=== PATIENT | male | born 1980 | race Caucasian/White ===

== ENCOUNTER 2021-08-28 22:11 | Inpatient (IN) | payer MEDICARE, MEDICAID, SELFPAY ==
--- NOTE | ~2021-08-28 | XR_ITS ---
EXAMINATION: XR CHEST CLINICAL INFORMATION: Hypoxia. COMPARISON: None. TECHNIQUE: AP view of the chest was obtained. FINDINGS: Enlarged cardiomediastinal silhouette with prominence of the right greater than left hilar regions. Low lung volumes with multifocal airspace opacities. No large pleural effusion. No definite pneumothorax. No acute osseous abnormalities. The visualized upper abdomen is within normal limits. XR/XR chest 1V IMPRESSION: Multifocal airspace opacities concerning for an atypical infection. Prominent cardiomediastinal silhouette, more notable along the right hilum possibly related with cardiomegaly or reactive lymphadenopathy, although nonspecific and suboptimally assessed due to patient's rotation.
--- NOTE | ~2021-08-28 | US_ITS ---
EXAMINATION: US VENOUS ULTRASOUND WITH DOPPLER LOWER EXTREMITY, BILATERAL CLINICAL INFORMATION: Lower extremity edema/swelling. Evaluate for DVT. COMPARISON: None TECHNIQUE: Ultrasound of the deep veins is performed from the hip to the calf with compression sonography and color and pulse Doppler assessment. Spectral analysis with color-flow imaging is performed. FINDINGS: Exam was technically difficult due to body habitus. RIGHT: There is normal venous compression and respiratory variation and augmented flow. The visualized common femoral vein, superficial femoral vein, profunda femoral vein, popliteal vein, and the trifurcation region shows no evidence of deep venous thrombosis. There are no veins were not seen. The distal portion of the posterior tibial veins near the ankle appear patent. Mild subcutaneous edema. LEFT: There is normal venous compression and respiratory variation and augmented flow. The visualized common femoral vein, superficial femoral vein, profunda femoral vein, popliteal vein, and the trifurcation region shows no evidence of deep venous thrombosis. The visualized portion of the proximal posterior tibial veins appear patent. Mild subcutaneous edema. US/US venous duplex LE BI IMPRESSION: 1. Technically difficult exam. The calf veins are suboptimally evaluated on this study. The visualized portions of the posterior tibial veins appear patent bilaterally. The peroneal veins were not visualized. 2. No evidence of DVT in the common femoral, superficial femoral, profunda femoral, or popliteal veins.
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
[2021-08-29] MEDS: Omeprazole 20 MG CAPSULE.DR PO (06:47)
[2021-08-29] MEDS: Bethanechol Chloride 25 MG TABLET 12.5 MG PO ×3 (09:34→21:35)
[2021-08-29] MEDS: TiZANidine HCL 4 MG TABLET PO ×2 (09:35→19:28)
[2021-08-29] MEDS: cloNIDine HCL 0.1 MG TABLET 0.3 MG PO ×2 (09:36→22:26)
[2021-08-29] MEDS: Furosemide 40 MG TABLET PO (09:36)
[2021-08-29] MEDS: Divalproex Sodium 500 MG TABLET.DR PO (09:37)
[2021-08-29] MEDS: Loratadine 10 MG TABLET PO (09:37)
[2021-08-29] MEDS: Docusate Sodium 100 MG CAPSULE PO ×2 (09:38→21:36)
[2021-08-29] MEDS: Tamsulosin HCL 0.4 MG CAPSULE PO (09:38)
[2021-08-29] MEDS: Baclofen 20 MG TABLET PO ×2 (09:38→19:28)
[2021-08-29] MEDS: busPIRone HCl 10 MG TABLET 30 MG PO ×2 (09:38→21:38)
[2021-08-29] MEDS: Fluticasone Propionate Nasal 16 GM SPRAY 2 SPRAY NOSTRIL-B (09:40)
[2021-08-29] MEDS: Ipratropium Bromide 1 PUFF/17 MCG INHALER INHALE ×2 (09:40→13:00)
[2021-08-29] MEDS: Fluticasone/Vilanterol 100/25 BLST.W.DEV 1 PUFF INHALE (09:40)
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
--- NOTE | 2021-08-29 10:40 | PC.NURSE ---
Addendum entered by Xavier Whitlock RN 08/29/21 12:34: He reports he has not been smoking recently. Original Note: Pt declined nicotine replacement therapy while in the hospital
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
--- NOTE | 2021-08-29 13:19 | HO.WOUNDCONS ---
History of Present Illness Data of Consult Service Date: 08/29/21 Requesting physician: Papito العلي Primary Care Provider: Bal Valera MD [facility] Reason for consult: leg ulcers [id number]: Patient is admitted with psychosis and what sound like threatening behavior in the setting of bipolar 1. He was appropriately seen by medicine for non healting wounds on the legs and given empiric antibiotics. Dressing selection is deferred to wound care. [facility] Medical History (Updated 08/29/21 @ 13:05 by Tino Khan MD) Bipolar 1 disorder Chronic venous stasis Social History Advance Directives: No Advance Directives Information Provided: No Sexual orientation: Did not discuss. Meds Allergies Allergy/AdvReac Type Severity Reaction Status Date / Time No Known Allergies Allergy Verified 08/28/21 22:18 Active Medications: Current Medications Acetaminophen (Acetaminophen 325 Mg Tablet) 650 mg PO Q6H PRN PRN Reason: Headache/Pain Mild Scale (1-3) Al Hydroxide/Mg Hydroxide (Magnesium Hydrox/Alum Hydrox 30 Ml Oral.Susp) 30 ml PO Q6H PRN PRN Reason: Heartburn/Nausea Albuterol Sulfate (Albuterol Sulfate 90 Mcg 8 Gm Inhaler) 1 puff INHALE RQ4H PRN PRN Reason: asthma Amitriptyline HCl (Amitriptyline Hcl 50 Mg Tablet) 150 mg PO BEDTIME MARK Aripiprazole (Aripiprazole 30 Mg Tablet) 30 mg PO BEDTIME [facility] Ascorbic Acid (Ascorbic Acid 250 Mg Tablet) 250 mg PO BID@0800,1700 [facility] Baclofen (Baclofen 20 Mg Tablet) 20 mg PO BID MARK Last Admin: 08/29/21 09:38 Dose: 20 mg Bethanechol Chloride (Bethanechol Chloride 25 Mg Tablet) 12.5 mg PO TID MARK Last Admin: 08/29/21 09:34 Dose: 12.5 mg Buspirone HCl (Buspirone Hcl 10 Mg Tablet) 30 mg PO BID [facility] Last Admin: 08/29/21 09:38 Dose: 30 mg Calcium Carbonate (Calcium Carbonate 500 Mg Tablet) 500 mg PO BID [facility] Last Admin: 08/29/21 09:38 Dose: 500 mg Clonidine HCl (Clonidine Hcl 0.1 Mg Tablet) 0.3 mg PO BID [facility]; Protocol Last Admin: 08/29/21 09:36 Dose: 0.3 mg Divalproex Sodium (Divalproex Sodium Er 500 Mg Tab.Er.24h) 2,500 mg PO BEDTIME [facility] Docusate Sodium (Docusate Sodium 100 Mg Capsule) 100 mg PO BID [facility] Last Admin: 08/29/21 09:38 Dose: 100 mg Doxycycline Hyclate (Doxycycline Hyclate 100 Mg Tablet) 100 mg PO Q12H [facility] Last Admin: 08/29/21 09:35 Dose: 100 mg Ferrous Sulfate (Ferrous Sulfate 324 Mg Tablet.) 324 mg PO BIDWM [facility] Fluticasone Propionate (Fluticasone Propionate Nasal 16 Gm [place]) 2 spray NOSTRIL-B DAILY [facility] Last Admin: 08/29/21 09:40 Dose: 2 spray Fluticasone/Vilanterol (Fluticasone/Vilanterol 100/25 Blst.W.Dev) 1 puff INHALE RDAILY [facility] Last Admin: 08/29/21 09:40 Dose: 1 puff Furosemide (Furosemide 40 Mg Tablet) 40 mg PO DAILY [facility]; Protocol Last Admin: 08/29/21 09:36 Dose: 40 mg Hydroxyzine HCl (Hydroxyzine Hcl 25 Mg Tablet) 25 mg PO Q6H PRN PRN Reason: Anxiety Ipratropium Fortuna (Ipratropium Fortuna 1 Puff/17 Mcg Inhaler) 1 puff INHALE RQID [facility] Last Admin: 08/29/21 13:00 Dose: 1 puff Loratadine (Loratadine 10 Mg Tablet) 10 mg PO DAILY [facility] Last Admin: 08/29/21 09:37 Dose: 10 mg Magnesium Hydroxide (Milk Of Magnesia 30 Ml Oral.Susp) 30 ml PO DAILY PRN PRN Reason: Constipation Methadone HCl (Methadone Hcl 20 Mg/2 Ml Oral.Conc) 25 mg PO DAILY [facility] Metoclopramide HCl (Metoclopramide Hcl 10 Mg Tablet) 10 mg PO TIDAC [facility] Montelukast Sodium (Montelukast Sodium 10 Mg Tablet) 10 mg PO BEDTIME [facility] Omeprazole (Omeprazole 20 Mg Capsule.) 20 mg PO DAILY@0630 [facility] Last Admin: 08/29/21 06:47 Dose: 20 mg Pregabalin (Pregabalin 200 Mg Capsule) 200 mg PO BID [facility] Last Admin: 08/29/21 09:52 Dose: Not Given Promethazine HCl (Promethazine Hcl 25 Mg Tablet) 25 mg PO Q6H PRN PRN Reason: Nausea Tamsulosin HCl (Tamsulosin Hcl 0.4 Mg Capsule) 0.4 mg PO DAILY [facility] Last Admin: 08/29/21 09:38 Dose: 0.4 mg Tizanidine HCl (Tizanidine Hcl 4 Mg Tablet) 4 mg PO BID [facility] Last Admin: 08/29/21 09:35 Dose: 4 mg Trazodone HCl (Trazodone Hcl 50 Mg Tablet) 50 mg PO BEDTIME PRN PRN Reason: Insomnia Home Medications Medication Instructions Recorded Confirmed Last Taken Type acetaminophen 325 mg tablet 650 mg PO Q8-10H PRN Pain 08/29/21 08/29/21 Unknown History (Tylenol) aripiprazole 30 mg tablet (Abilify) 30 mg PO BEDTIME 08/29/21 08/29/21 Unknown History bethanechol chloride 25 mg tablet 25 mg PO TID 08/29/21 08/29/21 Unknown History buspirone 30 mg tablet 30 mg PO BID 08/29/21 08/29/21 Unknown History clonidine HCl 0.3 mg tablet 0.3 mg PO TID 08/29/21 08/29/21 Unknown History diazepam 10 mg tablet (Valium) 10 mg PO TID PRN Anxiety 08/29/21 08/29/21 Unknown History divalproex 500 mg tablet,extended 2,500 mg PO BEDTIME 08/29/21 08/29/21 Unknown History release 24 hr (Depakote ER) furosemide 40 mg tablet (Lasix) 40 mg PO BID 08/29/21 08/29/21 Unknown History hydroxyzine HCl 50 mg tablet 50 mg Q8-10H PRN Anxiety 08/29/21 08/29/21 Unknown History ibuprofen 800 mg tablet 1 tab PO TID PRN Pain 08/29/21 08/29/21 Unknown History metoclopramide HCl 10 mg tablet 10 mg PO TID 08/29/21 08/29/21 Unknown History (Reglan) montelukast 10 mg tablet 10 mg PO DAILY 08/29/21 08/29/21 Unknown History (Singulair) ondansetron 4 mg disintegrating 4 mg PO BID PRN Nausea 08/29/21 08/29/21 Unknown History tablet pantoprazole 40 mg tablet,delayed 40 mg PO DAILY 08/29/21 08/29/21 Unknown History release (Protonix) pregabalin 200 mg capsule (Lyrica) 200 mg PO BID 08/29/21 08/29/21 Unknown History promethazine 25 mg tablet 25 mg PO Q6H PRN Nausea 08/29/21 08/29/21 Unknown History Physical Exam Vital Signs and Narrative: Photographs reviewed on intake and the patient has signs of venous insufficiency. There is no redness, streaking or warmth that can be identified. Agree with empiric use of antibiotics. Unclear if patient will cooperate with dressings. Ulcerative nature of leg wounds coupled with skin staining suggest . See plan. Assessment and Plan (1) Chronic venous stasis: Status: Acute Plan For open areas of ulceration on the leg, cut dura fiber (calcium alginate with silver) to fit open area. Okay to use zinc oxide paste around the outside of the wound to get alginate to stick. Roller gauze is most appropriate. If it is safe for the patient to use compression, a Tubigrip for support is a good place to start to hold the dressings in place. An Avi wrap could also be considered as long as it does not pose a threat to the patient's safety. With this treatment strategy, improvement is anticipated. Please re-consult if this is not the case. Ensure the patient complete antibiotics. Outpatient debridement can be considered if improvement is lacking. Will call floor nurse to discuss.
[2021-08-29] MEDS: diazePAM 5 MG TABLET 10 MG PO ×2 (13:40→19:37)
[2021-08-29] MEDS: Pregabalin 200 MG CAPSULE PO ×2 (13:40→19:28)
[2021-08-29] MEDS: methADONE HCl 20 MG/2 ML ORAL.CONC 25 MG PO (14:08)
[2021-08-29] MEDS: hydrOXYzine HCL 50 MG TABLET PO (14:37)
[2021-08-29] MEDS: Promethazine HCL 25 MG TABLET PO ×2 (15:45→19:37)
[2021-08-29] MEDS: Metoclopramide HCl 10 MG TABLET PO (16:14)
[2021-08-29] MEDS: Acetaminophen 325 MG TABLET 975 MG PO ×2 (17:11→21:38)
[2021-08-29] MEDS: Ibuprofen 600 MG TABLET PO ×2 (17:11→21:37)
[2021-08-29] MEDS: Ferrous Sulfate 324 MG TABLET.DR PO (17:15)
[2021-08-29] MEDS: Ascorbic Acid 250 MG TABLET PO (17:16)
[2021-08-29 18:13] LABS: Amphetamine Screen Urine Not Detected (Not Detect); Barbiturates, Urine Not Detected (Not Detect); Benzodiazepines Screen Urine POSITIVE (Not Detect); Cannabinoid Screen Urine Not Detected (Not Detect); Cocaine Screen Urine Not Detected (Not Detect); Fentanyl, urine Not Detected (Not Detect); Opiate Screen Urine POSITIVE (Not Detect); Phencyclidine Screen Urine Not Detected (Not Detect)
[2021-08-29] MEDS: Amitriptyline HCl 50 MG TABLET 150 MG PO ×2 (19:42→22:25)
[2021-08-29] MEDS: ARIPiprazole 30 MG TABLET PO (21:36)
[2021-08-29] MEDS: Montelukast Sodium 10 MG TABLET PO (21:37)
[2021-08-29] MEDS: Divalproex Sodium ER 500 MG TAB.ER.24H 2500 MG PO (22:26)
[2021-08-29 22:40] VITALS: BP 154/71; PULSE 97; RESP 16; O2SAT 98
[2021-08-30 06:00] VITALS: BP 189/117; PULSE 121; RESP 22
[2021-08-30] MEDS: Fluticasone Propionate Nasal 16 GM SPRAY 2 SPRAY NOSTRIL-B (08:48)
[2021-08-30] MEDS: Fluticasone/Vilanterol 100/25 BLST.W.DEV 1 PUFF INHALE (08:48)
[2021-08-30] MEDS: Ipratropium Bromide 1 PUFF/17 MCG INHALER INHALE (08:48)
[2021-08-30] MEDS: methADONE HCl 20 MG/2 ML ORAL.CONC 25 MG PO (08:51)
[2021-08-30] MEDS: busPIRone HCl 10 MG TABLET 30 MG PO (08:52)
[2021-08-30] MEDS: Omeprazole 20 MG CAPSULE.DR PO (08:52)
[2021-08-30] MEDS: Pregabalin 200 MG CAPSULE PO (08:52)
[2021-08-30] MEDS: diazePAM 5 MG TABLET 10 MG PO (08:52)
[2021-08-30] MEDS: Metoclopramide HCl 10 MG TABLET PO (08:52)
[2021-08-30] MEDS: Tamsulosin HCL 0.4 MG CAPSULE PO (08:52)
[2021-08-30] MEDS: Bethanechol Chloride 25 MG TABLET 12.5 MG PO (08:53)
[2021-08-30] MEDS: Ibuprofen 600 MG TABLET PO (08:53)
[2021-08-30] MEDS: Docusate Sodium 100 MG CAPSULE PO (08:53)
[2021-08-30] MEDS: Ascorbic Acid 250 MG TABLET PO (08:53)
[2021-08-30] MEDS: Loratadine 10 MG TABLET PO (08:53)
[2021-08-30] MEDS: hydrOXYzine HCL 50 MG TABLET PO (08:53)
[2021-08-30] MEDS: Baclofen 20 MG TABLET PO (08:53)
[2021-08-30] MEDS: cloNIDine HCL 0.1 MG TABLET 0.3 MG PO (08:53)
[2021-08-30] MEDS: Furosemide 40 MG TABLET PO (08:54)
[2021-08-30] MEDS: Ferrous Sulfate 324 MG TABLET.DR PO (08:54)
[2021-08-30] MEDS: TiZANidine HCL 4 MG TABLET PO (08:54)
[2021-08-30] MEDS: Albuterol Sulfate 90 MCG 8 GM INHALER 1 PUFF INHALE ×2 (09:11→16:53)
[2021-08-30] MEDS: Promethazine HCL 25 MG TABLET PO (10:22)
[2021-08-30 12:18] LABS: MANUAL DIFF FLAG NO
[2021-08-30 12:24] LABS: Basophils Percent Auto 0.3 % (0-2); Eosinophils Absolute Auto 0.1 X10*3/uL (0.0-0.4); Eosinophils Percent Auto 1.2 % (0-4); Hematocrit 31.2 % (42.0-52.0); Hemoglobin 8.7 g/dl (14.0-18.0); Imm Gran Abs Auto 0.03 X10*3/uL (0.00-0.03); Imm Gran Pct Auto 0.5 % (0.0-0.4); Lymphocytes Absolute Auto 0.5 X10*3/uL (1.2-4.9); Lymphocytes Percent Auto 9.2 % (20-40); Mean Corpuscular HGB Conc 27.9 g/dl (31.0-36.0); Mean Corpuscular Hemoglobin 22.7 pg (27.0-33.0); Mean Corpuscular Volume 81.3 fL (80.0-98.0); Mean Platelet Volume 9.9 fL (9.4-12.4); Monocytes Absolute Auto 0.6 X10*3/uL (0.1-1.2); Monocytes Percent Auto 9.8 % (2-11); Neutrophils Absolute Auto 4.6 x10*3/uL (2.0-8.3); Platelet Count 166 X10*3/uL (160-400); Red Blood Count 3.84 X10*6/uL (4.60-5.80); Red Cell Distribution Width 17.3 % (11.0-16.0); White Blood Count 5.8 X10*3/uL (4.8-10.8)
[2021-08-30 12:29] LABS: Estimated Average Glucose 100 mg/dL; Hemoglobin A1c % 5.1 %
[2021-08-30 12:40] LABS: Alanine Aminotransferase 21 U/L (0-40); Albumin Level 3.6 g/dL (3.5-5.0); Alkaline Phosphatase 62 U/L (39-117); Anion Gap 15 (12-20); Aspartate Amino Transferase 66 U/L (5-37); Bilirubin Direct < 0.2 mg/dL (0.0-0.5); Bilirubin Total 0.4 mg/dL (0.0-1.0); Blood Urea Nitrogen 16 mg/dL (9-16); Carbon Dioxide 27 mmol/L (22-29); Chloride 100 mmol/L (96-108); Cholesterol 125 mg/dL; Estimated Glomerular Filt Rate > 60; HDL Cholesterol 48 mg/dL; LDL Cholesterol Calculated 68 mg/dl; Potassium 4.3 mmol/L (3.3-5.1); Sodium 138 mmol/L (135-145); Total Protein 7.2 g/dL (6.5-8.0); Triglycerides 46 mg/dL
[2021-08-30 14:23] LABS: Reflex LDLD? No
[2021-08-30 16:45] VITALS: BP 158/90; PULSE 120; RESP 28; TEMP 36.3; O2SAT 70
[2021-08-30] MEDS: Naloxone HCl Nasal 4 MG SPRAY NOSTRILALT (17:03)
[2021-08-30 17:18] LABS: ABG Base Excess 6.3 mmol/L; ABG HCO3 30 mmol/L (22-26); ABG pCO2 43 mmHg (32-45); ABG pH 7.45 (7.35-7.45); ABG pO2 58 mmHg (83-108)
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
[2021-08-30] MEDS: flumazeniL 0.5 MG/5 ML VIAL 0.2 MG IVPUSH (17:40)
--- NOTE | 2021-08-30 17:41 | PM.PSYDC ---
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 PO BID@0900,1800 Qty: 0 0RF Protocol: Hold for SBP< HOLD for SBP < : 90 methadone [Methadose] 10 mg/mL Concentrate 25 mg PO DAILY Qty: 0 0RF Rx Instructions: Partial Fill upon patient request. fluticasone propionate 50 mcg/actuation [place],Suspension 2 spray intranasal DAILY Qty: 0 0RF MAG-AL 200-200 mg/5 mL Suspension 30 ml PO Q6H PRN (Reason: Heartburn/Nausea) Qty: 0 0RF fluticasone furoate-vilanterol [Breo Ellipta] 100-25 mcg/dose Blister With Device 1 ea inhalation RDAILY Qty: 0 0RF ascorbic acid (vitamin C) 250 mg Tablet 250 mg PO BID@0800,1700 Qty: 0 0RF Continued hydroxyzine HCl 50 mg Tablet 50 mg PO Q6H PRN (Reason: Anxiety) montelukast [Singulair] 10 mg Tablet 10 mg PO DAILY ibuprofen 800 mg tablet 1 tab PO TID PRN (Reason: Pain) buspirone 30 mg Tablet 30 mg PO BID divalproex [Depakote ER] 500 mg Tablet Extended Release 24 Hr 2,500 mg PO BEDTIME diazepam [Valium] 10 mg Tablet 10 mg PO TID PRN (Reason: Anxiety) ondansetron 4 mg Tablet,Disintegrating 4 mg PO BID PRN (Reason: Nausea) metoclopramide HCl [Reglan] 10 mg Tablet 10 mg PO TID aripiprazole [Abilify] 30 mg Tablet 30 mg PO BEDTIME pregabalin [Lyrica] 200 mg Capsule 200 mg PO BID Discontinued clonidine HCl 0.3 mg Tablet 0.3 mg PO TID furosemide [Lasix] 40 mg Tablet 40 mg PO BID acetaminophen [Tylenol] 325 mg Tablet 650 mg PO Q8-10H PRN (Reason: Pain) pantoprazole [Protonix] 40 mg Tablet,Delayed Release (Dr/Ec) 40 mg PO DAILY promethazine 25 mg Tablet 25 mg PO Q6H PRN (Reason: Nausea) No Action Zinc Oxide (Triple Paste) [Triple Paste] 1 appl topical 8XD PRN (Reason: Rash) Discharge Orders: Discharge Order (Routine); Ordered 08/30/21 Ordered By: Papito العلي Diet: regular diet Activity on Discharge: As tolerated Stand Alone Forms: Patient Portal Discharge page Care Plan Goals: Once stabilized: Maintain mood and safe behaviors Take medications as prescribed Continue to pursue sobriety Practice coping skills Continue with outpatient providers and reach out to them as needed Health Concerns: Once stabilized: Mood stability and behaviors Sobriety chronic Sabrina Stasis Asthma/COPD Neuropathy Plan of Treatment: Transfer to Medical floor Once stabilized, Follow up with your PCP, psychiatric provider and other outpatient providers regarding above concerns Take medications as prescribed Assessment: Risk assessment:? Patient without any SI or HI throughout admission. Patient has insight into need for medication; he is not in imminent risk of harm to self or others and has a safety plan that includes presenting to the closest ER or calling 911 if feeling unsafe.? Discharge Date/Time: 08/30/21 19:11
[2021-08-30 18:09] VITALS: BMI 29.0
--- NOTE | 2021-08-30 18:22 | P.HPHOSP_ITS ---
History of Present Illness Date of Service: 08/30/21 Chief Complaint: Altered mentation, hypoxia A 41 years old male with PMH of bipolar disease, PTSD, opioid abuse on methadone, chronic venous status, on multi pharmacy who was admitted to the psych floor for behavioral problem. The patient was upset at home and became angry and destroyed the house with a golf club that he was transferred to the hospital. This morning he was noted to be more altered. He took his medications but as the day progresses he became more and more altered with evidence of drop in his oxygen level. A rapid response was called and he was evaluated by me at that point. ABG showed acceptable pH and CO2 with no evidence of retention. He received Narcan and flumazenil with no significant improvement in his mentation. His oxygen level improved to 90s with 3 L of oxygen. He will be transferred to the medical floor pending EKG, CT head, CXR, blood work. Review of Systems Review of Systems: Yes Unobtainable due to mental status [facility] Medical History (Updated 08/31/21 @ 11:47 by Gregorio Joseph MD) Bipolar 1 disorder Chronic venous stasis Social History Household Members: Unknown / Unable to assess Housing: Unknown / Unable to assess Unable to assess alcohol history related to: Unknown Patient Tobacco Use Status: Current everyday Tobacco user Second Hand Smoke Exposure: No (pt unresponsive) Use of substances other than those prescribed or required for medical reasons: Unknown Currently Displaying Signs/Symptoms of Drug Intoxication Withdrawal: No Advance Directives: No Advance Directives Information Provided: No Do you have thoughts of harming others: None Do you have a plan to hurt others: No Plan service: No (Unknown) Current occupational status: disabled Sexual orientation: Did not discuss. Meds Allergies Allergy/AdvReac Type Severity Reaction Status Date / Time No Known Allergies Allergy Verified 08/28/21 22:18 Active Medications: Current Medications Acetaminophen (Acetaminophen 325 Mg Tablet) 975 mg PO TID PRN PRN Reason: Headache/Pain Mild Scale (1-3) Last Admin: 08/29/21 21:38 Dose: 975 mg Al Hydroxide/Mg Hydroxide (Magnesium Hydrox/Alum Hydrox 30 Ml Oral.Susp) 30 ml PO Q6H PRN PRN Reason: Heartburn/Nausea Albuterol Sulfate (Albuterol Sulfate 90 Mcg 8 Gm Inhaler) 1 puff INHALE RQ4H PRN PRN Reason: asthma Last Admin: 08/30/21 16:53 Dose: 1 puff Albuterol/Ipratropium (Albuterol/Iprat 2.5/0.5mg 3 Ml Ampul.Neb) 3 ml INHALE RQ4H WHILE AWAKE [facility] Last Admin: 08/30/21 15:11 Dose: Not Given Amitriptyline HCl (Amitriptyline Hcl 50 Mg Tablet) 150 mg PO BEDTIME [facility] Last Admin: 08/29/21 22:25 Dose: 50 mg Aripiprazole (Aripiprazole 30 Mg Tablet) 30 mg PO BEDTIME [facility] Last Admin: 08/29/21 21:36 Dose: 30 mg Ascorbic Acid (Ascorbic Acid 250 Mg Tablet) 250 mg PO BID@0800,1700 [facility] Last Admin: 08/30/21 18:02 Dose: Not Given Baclofen (Baclofen 20 Mg Tablet) 20 mg PO BID [facility] Last Admin: 08/30/21 08:53 Dose: 20 mg Bethanechol Chloride (Bethanechol Chloride 25 Mg Tablet) 12.5 mg PO TID [facility] Last Admin: 08/30/21 15:04 Dose: Not Given Buspirone HCl (Buspirone Hcl 10 Mg Tablet) 30 mg PO BID [facility] Last Admin: 08/30/21 08:52 Dose: 30 mg Calcium Carbonate (Calcium Carbonate 500 Mg Tablet) 500 mg PO BID [facility] Last Admin: 08/30/21 08:52 Dose: 500 mg Clonidine HCl (Clonidine Hcl 0.1 Mg Tablet) 0.3 mg PO BID [facility]; Protocol Last Admin: 08/30/21 08:53 Dose: 0.3 mg Diazepam (Diazepam 5 Mg Tablet) 10 mg PO TID PRN PRN Reason: Anxiety Last Admin: 08/30/21 08:52 Dose: 10 mg Divalproex Sodium (Divalproex Sodium Er 500 Mg Tab.Er.24h) 2,500 mg PO BEDTIME [facility] Last Admin: 08/29/21 22:26 Dose: 2,500 mg Docusate Sodium (Docusate Sodium 100 Mg Capsule) 100 mg PO DAILY [facility] Doxycycline Hyclate (Doxycycline Hyclate 100 Mg Tablet) 100 mg PO Q12H [facility] Last Admin: 08/30/21 13:45 Dose: Not Given Ferrous Sulfate (Ferrous Sulfate 324 Mg Tablet.) 324 mg PO BIDWM [facility] Last Admin: 08/30/21 18:02 Dose: Not Given Fluticasone Propionate (Fluticasone Propionate Nasal 16 Gm Smiley) 2 spray NOSTRIL-B DAILY [facility] Last Admin: 08/30/21 08:48 Dose: 2 spray Fluticasone/Vilanterol (Fluticasone/Vilanterol 100/25 Blst.W.Dev) 1 puff INHALE RDAILY [facility] Last Admin: 08/30/21 08:48 Dose: 1 puff Furosemide (Furosemide 20 Mg Tablet) 60 mg PO BID@0900,1800 [facility]; Protocol Furosemide (Furosemide 100 Mg/10 Ml Vial) 60 mg IVPUSH BID@0900,1800 [facility]; Protocol Hydroxyzine HCl (Hydroxyzine Hcl 50 Mg Tablet) 50 mg PO Q6H PRN PRN Reason: Anxiety Last Admin: 08/30/21 08:53 Dose: 50 mg Valproic Acid 500 mg/ Dextrose 55 mls @ 55 mls/hr IV Q6H [facility] Ibuprofen (Ibuprofen 600 Mg Tablet) 600 mg PO Q6H PRN PRN Reason: Pain, Mild (Pain Scale 1-3) Last Admin: 08/30/21 08:53 Dose: 600 mg Ipratropium [place] (Ipratropium [place] 1 Puff/17 Mcg Inhaler) 1 puff INHALE RQID [facility] Last Admin: 08/30/21 13:46 Dose: Not Given Loratadine (Loratadine 10 Mg Tablet) 10 mg PO DAILY [facility] Last Admin: 08/30/21 08:53 Dose: 10 mg Magnesium Hydroxide (Milk Of Magnesia 30 Ml Oral.Susp) 30 ml PO DAILY PRN PRN Reason: Constipation Methadone HCl (Methadone Hcl 20 Mg/2 Ml Oral.Conc) 25 mg PO DAILY [facility] Last Admin: 08/30/21 08:51 Dose: 25 mg Metoclopramide HCl (Metoclopramide Hcl 10 Mg Tablet) 10 mg PO TIDAC [facility] Last Admin: 08/30/21 18:01 Dose: Not Given Montelukast Sodium (Montelukast Sodium 10 Mg Tablet) 10 mg PO BEDTIME [facility] Last Admin: 08/29/21 21:37 Dose: 10 mg Omeprazole (Omeprazole 20 Mg Capsule.) 20 mg PO BID@0630,1630 [facility] Last Admin: 08/30/21 18:01 Dose: Not Given Pregabalin (Pregabalin 200 Mg Capsule) 200 mg PO BID [facility] Last Admin: 08/30/21 08:52 Dose: 200 mg Promethazine HCl (Promethazine Hcl 25 Mg Tablet) 25 mg PO Q6H PRN PRN Reason: Nausea Last Admin: 08/30/21 10:22 Dose: 25 mg Tamsulosin HCl (Tamsulosin Hcl 0.4 Mg Capsule) 0.4 mg PO DAILY [facility] Last Admin: 08/30/21 08:52 Dose: 0.4 mg Tizanidine HCl (Tizanidine Hcl 4 Mg Tablet) 4 mg PO BID [facility] Last Admin: 08/30/21 08:54 Dose: 4 mg Trazodone HCl (Trazodone Hcl 50 Mg Tablet) 50 mg PO BEDTIME PRN PRN Reason: Insomnia Zinc Oxide (Zinc Oxide (Triple Paste) 56.7 Gm Oint) 1 appl TOPICAL 8XD PRN; Protocol PRN Reason: lesion b/l lower limbs Home Medications Medication Instructions Recorded Confirmed Last Taken Type aripiprazole 30 mg tablet (Abilify) 30 mg PO BEDTIME 08/29/21 08/30/21 Unknown History buspirone 30 mg tablet 30 mg PO BID 08/29/21 08/30/21 Unknown History diazepam 10 mg tablet (Valium) 10 mg PO TID PRN Anxiety 08/29/21 08/30/21 Unknown History divalproex 500 mg tablet,extended 2,500 mg PO BEDTIME 08/29/21 08/30/21 Unknown History release 24 hr (Depakote ER) hydroxyzine HCl 50 mg tablet 50 mg PO Q6H PRN Anxiety 08/29/21 08/30/21 Unknown History ibuprofen 800 mg tablet 1 tab PO TID PRN Pain 08/29/21 08/30/21 Unknown History metoclopramide HCl 10 mg tablet 10 mg PO TID 08/29/21 08/30/21 Unknown History (Reglan) montelukast 10 mg tablet 10 mg PO DAILY 08/29/21 08/30/21 Unknown History (Singulair) ondansetron 4 mg disintegrating 4 mg PO BID PRN Nausea 08/29/21 08/30/21 Unknown History tablet pregabalin 200 mg capsule (Lyrica) 200 mg PO BID 08/29/21 08/30/21 Unknown Hi story Zinc Oxide (Triple Paste) [Triple 1 appl topical 8XD PRN Rash 08/30/21 08/30/21 Unknown History Paste] Physical Exam Vital Signs and Narrative: Vital Signs: Last Vital Signs Pulse 121 H 08/30/21 06:00 Resp 22 H 08/30/21 06:00 BP 189/117 H 08/30/21 06:00 Pulse Ox 98 08/29/21 22:40 O2 Del Method 08/30/21 06:00 BMI result Body Mass Index 29.0 Const: Other: Constitutional : Altered mentation, not in distress Eyes: Both pupils are reactive to light bilaterally Neck : Normal inspection, Supple Cardiovascular : RRR, no JVP, +2bilateral lower extremity edema Respiratory : fair bilateral air entry, basal bilateral fine crackles, expiratory wheezes Gastrointestinal: soft, lax, Normal bowel sounds, Non tender Skin : Warm, Dry, chronic LE clear venous wounds with no drainage Neurological : Altered, GCS of 9, unable to follow any commands during exam, opened eyes with physical stimuli and answers with unclear words Results Labs CBC and Chem 7: 08/30/21 12:11 08/30/21 12:11 Labs: Laboratory Results - last 24 hr 08/30/21 08/30/21 08/30/21 12:11 12:11 12:11 MCV 81.3 MCH 22.7 L MCHC 27.9 L RDW 17.3 H Plt Count 166 MPV 9.9 Immature Gran % (Auto) 0.5 H Neut % (Auto) 79.0 H Lymph % (Auto) 9.2 L Stanley % (Auto) 9.8 Eos % (Auto) 1.2 Baso % (Auto) 0.3 Lymph # (Auto) 0.5 L Stanley # (Auto) 0.6 Eos # (Auto) 0.1 Baso # (Auto) 0.0 Abs Immat Gran (auto) 0.03 Absolute Neuts (auto) 4.6 Absolute Nucleated RBC 0.000 Nucleated RBC % (auto) 0.0 O2 Saturation ABG pH at Pt Temp ABG pCO2 at Pt Temp ABG pO2 at Pt Temp ABG HCO3 ABG Base Excess (Actual) Anion Gap 15 Estim Creat Clear Calc TNP Estimated GFR > 60 Estimat Average Glucose 100 Hemoglobin A1c % 5.1 Total Bilirubin 0.4 Direct Bilirubin < 0.2 AST 66 H ALT 21 Alkaline Phosphatase 62 Total Protein 7.2 Albumin 3.6 Triglycerides 46 Cholesterol 125 LDL Cholesterol, Calc 68 HDL Cholesterol 48 08/30/21 17:14 MCV MCH MCHC RDW Plt Count MPV Immature Gran % (Auto) Neut % (Auto) Lymph % (Auto) Stanley % (Auto) Eos % (Auto) Baso % (Auto) Lymph # (Auto) Stanley # (Auto) Eos # (Auto) Baso # (Auto) Abs Immat Gran (auto) Absolute Neuts (auto) Absolute Nucleated RBC Nucleated RBC % (auto) O2 Saturation 86.0 ABG pH at Pt Temp 7.45 ABG pCO2 at Pt Temp 43 ABG pO2 at Pt Temp 58 L ABG HCO3 30 H ABG Base Excess (Actual) 6.3 Anion Gap Estim Creat Clear Calc Estimated GFR Estimat Average Glucose Hemoglobin A1c % Total Bilirubin Direct Bilirubin AST ALT Alkaline Phosphatase Total Protein Albumin Triglycerides Cholesterol LDL Cholesterol, Calc HDL Cholesterol Imaging Radiologist's Impressions: Impressions Chest X-Ray 08/30/21 17:57 IMPRESSION: Multifocal airspace opacities concerning for an atypical infection. Prominent cardiomediastinal silhouette, more notable along the right hilum possibly related with cardiomegaly or reactive lymphadenopathy, although nonspecific and suboptimally assessed due to patient's rotation. Assessment and Plan (1) Toxic metabolic encephalopathy: Status: Acute (2) Acute respiratory failure with hypoxia: Status: Acute (3) Pneumonia: Status: Acute Plan A 41 years old male with PMH of bipolar disease, PTSD, opioid abuse on methadone, chronic venous status, on multi pharmacy who was admitted to the psych floor for behavioral problem. Toxic metabolic encephalopathy Could be secondary to multi pharmacy, drugs interaction, infection Pending CT head CXR showing possible atypical infection Hold medications that might affect his mentation Check valproic acid level Recurrent reorientation Pending EKG Acute respiratory failure with hypoxia Secondary to aspiration pneumonia VS pulmonary edema CXR showing atypical infiltrates Check BNP Check blood cultures Changed home dose Lasix to IV Start IV Zosyn Give methylprednisone for possible aspiration pneumonitis Wean oxygen down as tolerated Behavioral problem Will hold his home medication and restart him gradually Will get psychiatry evaluation to help with restarting them Bilateral venous status LD Start Lasix IV Check ultrasound Doppler to rule out DVT DVT PPX Lovenox The patient will likely need 2 overnight hospital stay to finish workup for altered mentation and acute respiratory failure to prevent possible decompensation in to severe sepsis Quality Stroke Does the patient have a stroke diagnosis?: No VTE Prior VTE?: No VTE Risk Level:: Medical - moderate - high VTE Device Contraindication: Treatment Not Indicated VTE Drug Contraindication: N/A - Med Ordered
[2021-08-30 19:17] LABS: Lactic Acid 1.7 mmol/L (0.5-2.0)
[2021-08-30 19:21] LABS: Iron 11 mcg/dL (45-160); Percent Iron Saturation 3 % (15-50); Total Iron Binding Capacity 406 mcg/dL (228-428); Unsaturated Iron Binding 395 ug/dL
[2021-08-30 19:27] LABS: B Type Natriuretic Peptide 121 pg/mL (<100)
[2021-08-30 19:37] VITALS: BP 136/72; PULSE 115; RESP 20; TEMP 36.3; O2SAT 92
[2021-08-30 22:51] LABS: ABG Refer to POC result
--- NOTE | 2021-08-31 09:36 | MHC.CM.PN ---
CM met with Patient at bedside. Patient appears to be from [facility] Psych Unit and the goal appears to be for him to return there once medically cleared. CM has initiated and will follow for dc planning. Patient obtains his Methadone from [facility] [place]. PCP is DR. Bal Valera @ [facility] and Patient has received [employer]/TLM Com vax X3.
== END 2021-08-30 19:11 | disposition short-term general hospital (02) | DRG 885 ==
PROVIDERS: Student in an Organized Health Care Education/Training Program; Admitting Provider Psychiatry & Neurology Psychiatry; PCP Family Medicine; Visit Provider Psychiatry & Neurology Psychiatry
DX: F31.9 Bipolar disorder, unspecified (principal); J18.9 Pneumonia, unspecified organism; J96.01 Acute respiratory failure with hypoxia; G92.8 Other toxic encephalopathy; F11.20 Opioid dependence, uncomplicated; I87.312 Chronic venous hypertension (idiopathic) with ulcer of left lower extremity; L97.828 Non-pressure chronic ulcer of other part of left lower leg with other specified severity; F12.20 Cannabis dependence, uncomplicated; F41.1 Generalized anxiety disorder; I87.321 Chronic venous hypertension (idiopathic) with inflammation of right lower extremity; F43.10 Post-traumatic stress disorder, unspecified; J45.909 Unspecified asthma, uncomplicated; F90.9 Attention-deficit hyperactivity disorder, unspecified type; F17.210 Nicotine dependence, cigarettes, uncomplicated; Z71.6 Tobacco abuse counseling; E03.9 Hypothyroidism, unspecified; Z79.51 Long term (current) use of inhaled steroids; Z79.899 Other long term (current) drug therapy
CPT/HCPCS: 36415; 36600; 71045; 80051; 80061; 80076; 80307; 82565; 82803; 83036; 83540; 83605; 83880; 84520; 85025; 87040; 93970

== ENCOUNTER 2021-08-30 19:11 | Inpatient (IN) | payer MEDICARE, MEDICAID, SELFPAY ==
[2021-08-30 20:00] VITALS: BP 128/80; PULSE 106; RESP 18; TEMP 37.1; O2SAT 96
[2021-08-30] MEDS: cefTRIAXone sodium 1 GM in 0.9 % Sodium Chloride 50 ML IV (20:37)
[2021-08-30] MEDS: Enoxaparin Sodium 40 MG/0.4 ML SYRINGE SUBCUT (20:50)
[2021-08-30] MEDS: Azithromycin 500 MG in 0.9 % Sodium Chloride 250 ML 125 MG IV (20:50)
--- NOTE | 2021-08-30 22:09 | PM.EVENT ---
Event Note Date of Service: 08/30/21 Event Note: pt woke up and wants to go AMA> he is very agitated, screaming, being held down by security forces. Saying he wants to go home to smoke a cig. He is still somnolent and falls back asleep easily. i do not feel that it is safe for him to leave and do not believe that he is able to make this decision soundly in this state of mind. He requested pain meds. Will medicate him with dialudid. nicotine patch ordered
[2021-08-30 22:36] VITALS: BMI 43.2
--- NOTE | 2021-08-30 22:39 | PHA.PROG ---
Addendum entered by Bashir Cheema RPh 08/31/21 08:00: scr was 0.72 today. Loading dose was only 10mg/kg. Decided to give one more 1500mg, then go to 1250 q12h to get the patient therapuetic faster. Trough due 09/01 @0900 Original Note: Admission Date/Time: August 30, 2021 19:11 Indication: respiratory Weight in k.5 kg Adjusted body weight in K.4 [place] body weight in K.6 Obesity Dosing Indication % IBW: 86.21% Vancomycin Loading Dose: 1500mg x1 Current Vancomycin Dosing Regimen: 1250mg Q12H Vancomycin Monitoring using AUC goal of 400 - 600 range with trough as surrogate marker: 555mg/L Date and Time for next Vancomycin Level to be drawn: 09/01/21 @0900 Pharmacist Comments on Vancomycin Plan: Using obese model, will continue to monitor renal function and adjust as necessary Vancomycin dosing will take advantage of Diveboard as a clinical decision support tool that uses Bayesian modeling to calculate individual patient's pharmacokinetic parameters and forecast the patient's drug concentration time course with the target goal AUC 24 range of 400 - 600 mg/L/hr.
--- NOTE | 2021-08-30 23:13 | PC.NURSE ---
patient had a episode of agitation,yelling,swearing,wanted to leave hospital,code assist was called,patient seen by enri Nguyen 1:1 with patient at present,patient more calm at present.
[2021-08-30] MEDS: polyethylene glycoL 3350 17 GM POWD.PACK PO (23:34)
[2021-08-30 23:54] VITALS: BP 159/80; PULSE 126; RESP 18; TEMP 36.3; O2SAT 95
[2021-08-31] VITALS (10 sets, daily range): BP systolic 109–170; BP diastolic 53–101; PULSE 99–119; RESP 18–24; TEMP 37.4; O2SAT 70–96
--- NOTE | 2021-08-31 | ECG_ITS ---
Test Reason : baseline Blood Pressure : / mmHG Vent. Rate : 121 BPM Atrial Rate : 121 BPM P-R Int : 154 ms QRS Dur : 094 ms QT Int : 334 ms P-R-T Axes : 044 -08 073 degrees QTc Int : 474 ms Sinus tachycardia Minimal voltage criteria for LVH, may be normal variant ( R in aVL ) Borderline ECG No previous ECGs available Referred By: Gregorio Joseph Electronically Signed By:Tim Santos
[2021-08-31] MEDS: vancomycin HCL 1,500 MG in 0.9 % Sodium Chloride 500 ML 333.33 MG IV (00:19)
[2021-08-31] MEDS: TiZANidine HCL 4 MG TABLET PO ×3 (00:20→20:39)
[2021-08-31] MEDS: cefEPime HCl 1 GM in 0.9 % Sodium Chloride 50 ML IV (05:52)
[2021-08-31 06:54] LABS: MANUAL DIFF FLAG NO
[2021-08-31 06:57] LABS: Basophils Absolute Auto 0.1 X10*3/uL (0.0-0.2); Basophils Percent Auto 0.5 % (0-2); Eosinophils Absolute Auto 0.3 X10*3/uL (0.0-0.4); Eosinophils Percent Auto 2.7 % (0-4); Hemoglobin 7.5 g/dl (14.0-18.0); Imm Gran Abs Auto 0.03 X10*3/uL (0.00-0.03); Imm Gran Pct Auto 0.3 % (0.0-0.4); Lymphocytes Absolute Auto 1.2 X10*3/uL (1.2-4.9); Lymphocytes Percent Auto 11.1 % (20-40); Mean Corpuscular HGB Conc 28.8 g/dl (31.0-36.0); Mean Corpuscular Hemoglobin 22.8 pg (27.0-33.0); Monocytes Absolute Auto 1.1 X10*3/uL (0.1-1.2); Monocytes Percent Auto 10.2 % (2-11); Neutrophils Absolute Auto 7.9 x10*3/uL (2.0-8.3); Neutrophils Percent Auto 75.2 % (45-73); Platelet Count 168 X10*3/uL (160-400); Red Blood Count 3.29 X10*6/uL (4.60-5.80); Red Cell Distribution Width 17.4 % (11.0-16.0); White Blood Count 10.5 X10*3/uL (4.8-10.8)
[2021-08-31 07:39] LABS: Anion Gap 12 (12-20); Blood Urea Nitrogen 11 mg/dL (9-16); Calcium 8.5 mg/dL (8.4-10.2); Carbon Dioxide 31 mmol/L (22-29); Chloride 99 mmol/L (96-108); Creatinine Clr Calc Pharmacy 203.2; Estimated Glomerular Filt Rate > 60; Glucose Random 125 mg/dL (60-115); Potassium 3.9 mmol/L (3.3-5.1); Sodium 138 mmol/L (135-145)
[2021-08-31] MEDS: Albuterol/Iprat 2.5/0.5MG 3 ML AMPUL.NEB INHALE (08:37)
[2021-08-31] MEDS: cloNIDine HCL 0.1 MG TABLET 0.3 MG PO ×2 (09:04→20:58)
[2021-08-31] MEDS: Bethanechol Chloride 25 MG TABLET 12.5 MG PO ×3 (09:05→20:40)
[2021-08-31] MEDS: Omeprazole 20 MG CAPSULE.DR PO ×2 (09:07→17:13)
[2021-08-31] MEDS: Pregabalin 200 MG CAPSULE PO ×2 (09:07→20:39)
[2021-08-31] MEDS: methADONE HCl 20 MG/2 ML ORAL.CONC 25 MG PO (09:07)
[2021-08-31] MEDS: 0.9 % Sodium Chloride Flush 3 ML SYRINGE IVFLUSH ×2 (09:08→17:16)
[2021-08-31] MEDS: Furosemide 100 MG/10 ML VIAL 60 MG IVPUSH ×2 (11:27→17:20)
[2021-08-31] MEDS: diazePAM 5 MG TABLET 10 MG PO ×2 (11:27→20:39)
--- NOTE | 2021-08-31 11:29 | MHC.CM.PN ---
Per MD, Patient is expected to return home tomorrow. [facility] [place] [facility] Patient with a SOC date of 09/03/21(MD is aware of and in agreement with the 09/03/21 SOC).
--- NOTE | 2021-08-31 11:36 | P.PNIM_ITS ---
Subjective Subjective Date of Service: 08/31/21 Interval History: the patient was seen and evaluated this morning Sitting in his bed, was yelling and having disagreement with the nursing staff Feels much better today, breathing fine but reports some cough Weaned off the oxygen Denies any fever, chills or shortness of breath No reported other overnight events. Systemic review: No fever, chills or weakness No chest pain, palpitation No shortness of breath or coughing No abdominal pain, nausea or vomiting No urinary symptoms No any rash or wounds Physical Exam Vital Signs: Vital Signs: Last Vital Signs Temp 97.3 F 08/30/21 23:54 Pulse 126 H 08/30/21 23:54 Resp 18 08/31/21 08:39 BP 159/80 H 08/30/21 23:54 Pulse Ox 95 08/30/21 23:54 O2 Del Method 08/30/21 23:54 O2 Flow Rate 1 08/30/21 20:00 BMI result Body Mass Index 43.2 Const: Other: Constitutional :? Alert, interactive, not in distress Eyes:? Both pupils are reactive to light bilaterally ?Neck : Normal inspection, Supple Cardiovascular : RRR, no JVP, +2 bilateral lower extremity edema Respiratory : fair bilateral air entry, basal bilateral fine crackles, decreased fine expiratory wheezes Gastrointestinal:? soft, lax, Normal bowel sounds, Non tender Skin : Warm, Dry, chronic leg wounds with no clear infection Neurological :? Alert, oriented, no focal deficit noted Objective Data Active Medications Acetaminophen (Acetaminophen 325 Mg Tablet) 650 mg PO Q6H PRN PRN Reason: Pain, Mild (Pain Scale 1-3) Acetaminophen/Codeine Phosphate (Acetaminophen With Codeine # 3 Tablet) 1 tab PO Q8H PRN PRN Reason: Pain, Severe (Pain Scale 7-10) Al Hydroxide/Mg Hydroxide (Magnesium Hydrox/Alum Hydrox 30 Ml Oral.Susp) 30 ml PO Q6H PRN PRN Reason: Heartburn/Nausea Albuterol Sulfate (Albuterol Sulfate 90 Mcg 8 Gm Inhaler) 1 puff INHALE RQ4H PRN PRN Reason: asthma Albuterol/Ipratropium (Albuterol/Iprat 2.5/0.5mg 3 Ml Ampul.Neb) 3 ml INHALE RQ4H WHILE AWAKE MARK Last Admin: 08/31/21 08:37 Dose: 3 ml Documented By: REYNALDO Amitriptyline HCl (Amitriptyline Hcl 50 Mg Tablet) 150 mg PO BEDTIME [facility] Amoxicillin/Clavulanate Potassium (Amoxicillin/Potassium Clav 875 Mg Tablet) 875 mg PO Q12H [facility] Aripiprazole (Aripiprazole 30 Mg Tablet) 30 mg PO BEDTIME [facility] Bethanechol Chloride (Bethanechol Chloride 25 Mg Tablet) 12.5 mg PO TID [facility] Last Admin: 08/31/21 09:05 Dose: 12.5 mg Documented By: JAMSHID Buspirone HCl (Buspirone Hcl 10 Mg Tablet) 30 mg PO BID [facility] Clonidine HCl (Clonidine Hcl 0.1 Mg Tablet) 0.3 mg PO BID [facility]; Protocol Last Admin: 08/31/21 09:04 Dose: 0.3 mg Documented By: JAMSHID Diazepam (Diazepam 5 Mg Tablet) 10 mg PO BID [facility] Last Admin: 08/31/21 11:27 Dose: 10 mg Documented By: JAMSHID Divalproex Sodium (Divalproex Sodium Er 500 Mg Tab.Er.24h) 2,500 mg PO BEDTIME [facility] Docusate Sodium (Docusate Sodium 100 Mg Capsule) 100 mg PO DAILY PRN PRN Reason: Constipation Enoxaparin Sodium (Enoxaparin Sodium 40 Mg/0.4 Ml Syringe) 40 mg SUBCUT Q24H [facility] Last Admin: 08/30/21 20:50 Dose: 40 mg Documented By: GRACE Ferrous Sulfate (Ferrous Sulfate 324 Mg Tablet.Dr) 324 mg PO BIDWM [facility] Fluticasone/Vilanterol (Fluticasone/Vilanterol 100/25 Blst.W.Dev) 1 puff INHALE RDAILY [facility] Furosemide (Furosemide 100 Mg/10 Ml Vial) 60 mg IVPUSH BID@0900,1800 [facility]; Protocol Last Admin: 08/31/21 11:27 Dose: 60 mg Documented By: JAMSHID Vancomycin HCl 1,500 mg/ (Sodium Chloride) 500 mls @ 333.333 mls/hr IV ONCE ONE Stop: 08/31/21 12:29 Ipratropium Java (Ipratropium Java 1 Puff/17 Mcg Inhaler) 1 puff INHALE RQID [facility] Last Admin: 08/31/21 08:39 Dose: Not Given Documented By: REYNALDO Non-Admin Reason: Duplicate Order Methadone HCl (Methadone Hcl 20 Mg/2 Ml Oral.Conc) 25 mg PO DAILY [facility] Last Admin: 08/31/21 09:07 Dose: 25 mg Documented By: JAMSHID Montelukast Sodium (Montelukast Sodium 10 Mg Tablet) 10 mg PO BEDTIME [facility] Nicotine (Nicotine 21 Mg Patch.Td24) 21 mg TRANSDERMA DAILY [facility] Last Admin: 08/31/21 09:08 Dose: Not Given Documented By: JAMSHID Non-Admin Reason: Patient Refused Omeprazole (Omeprazole 20 Mg Capsule.Dr) 20 mg PO BID@0630,1630 [facility] Last Admin: 08/31/21 09:07 Dose: 20 mg Documented By: JAMSHID Ondansetron HCl (Ondansetron Hcl 4 Mg/2 Ml Vial) 4 mg IVPUSH Q8H PRN PRN Reason: Nausea and Vomiting Polyethylene Glycol (Polyethylene Glycol 3350 17 Gm Powd.Pack) 17 gm PO DAILY PRN PRN Reason: Constipation Last Admin: 08/30/21 23:34 Dose: 17 gm Documented By: XAVI Pregabalin (Pregabalin 200 Mg Capsule) 200 mg PO BID [facility] Last Admin: 08/31/21 09:07 Dose: 200 mg Documented By: JAMSHID Promethazine HCl (Promethazine Hcl 25 Mg Tablet) 25 mg PO Q6H PRN PRN Reason: Nausea Sodium Chloride (0.9 % Sodium Chloride Flush 3 Ml Syringe) 3 ml IVFLUSH QSHIFT [facility] Last Admin: 08/31/21 09:08 Dose: 3 ml Documented By: JAMSHID Tamsulosin HCl (Tamsulosin Hcl 0.4 Mg Capsule) 0.4 mg PO DAILY@1730 [facility] Tizanidine HCl (Tizanidine Hcl 4 Mg Tablet) 4 mg PO TID PRN PRN Reason: Muscle Spasm Labs CBC & Chem 7: 08/31/21 06:47 08/31/21 06:47 Labs: Laboratory Results - last 24 hr 08/31/21 08/31/21 06:47 06:47 MCV 79.0 L MCH 22.8 L MCHC 28.8 L RDW 17.4 H Plt Count 168 MPV 10.0 Immature Gran % (Auto) 0.3 Neut % (Auto) 75.2 H Lymph % (Auto) 11.1 L [place] % (Auto) 10.2 Eos % (Auto) 2.7 Baso % (Auto) 0.5 Lymph # (Auto) 1.2 [place] # (Auto) 1.1 Eos # (Auto) 0.3 Baso # (Auto) 0.1 Abs Immat Gran (auto) 0.03 Absolute Neuts (auto) 7.9 Absolute Nucleated RBC 0.000 Nucleated RBC % (auto) 0.0 Anion Gap 12 Estim Creat Clear Calc 203.2 Estimated GFR > 60 Random Glucose 125 H Calcium 8.5 Assessment and Plan (1) Acute respiratory failure with hypoxia: Status: Acute (2) Fluid overload: Status: Acute (3) Pneumonia: Status: Acute (4) Chronic venous stasis: Status: Acute Plan A 41 years old male with PMH of bipolar disease, PTSD, opioid abuse on methadone, chronic venous status, on multi pharmacy who was admitted to the psych floor for behavioral problem. Toxic metabolic encephalopathy Could be secondary to multi pharmacy, drugs interaction, infection Back to his baseline CXR showing possible atypical infection Restart home medication gradually and monitor response Acute respiratory failure with hypoxia Secondary to aspiration pneumonia/pneumonitis VS pulmonary edema Weaned down the oxygen CXR showing atypical infiltrates Mildly BNP Pending blood cultures Continue IV Lasix 60 mg b.i.d. Change antibiotics to oral Augmentin Received methylprednisone for possible aspiration pneumonitis Behavioral problem Psychiatry input appreciated, continue Abilify, the amitriptyline, buspiron and Depakote Will cut down diazepam, DC baclofen, DC Atarax, DC Zofran and Reglan Bilateral venous status LD Continue Lasix IV Negative ultrasound Doppler for DVT Anemia of unclear etiology Could be secondary to GI bleed from and sees usage Check occult blood Low iron stores, give iron supplement Repeat CBC, if he continues to drop his HP and has positive occult might need investigation inpatient otherwise can be followed as outpatient for EGD ?DVT PPX SCDs The patient will likely need overnight hospital stay to finish workup for fluid overload and acute respiratory failure to prevent possible decompensation in to severe sepsis Quality Stroke Does the patient have a stroke diagnosis?: No VTE Prior VTE?: No VTE Risk Level:: Medical - moderate - high VTE Device Contraindication: Treatment Not Indicated VTE Drug Contraindication: N/A - Med Ordered
[2021-08-31] MEDS: Divalproex Sodium ER 250 MG TAB.ER.24H 750 MG PO (13:07)
[2021-08-31] MEDS: Amoxicillin/Potassium Clav 875 MG TABLET PO (13:07)
[2021-08-31 15:03] LABS: Hematocrit 25.3 % (42.0-52.0); Hemoglobin 7.2 g/dl (14.0-18.0); Mean Corpuscular HGB Conc 28.5 g/dl (31.0-36.0); Mean Corpuscular Hemoglobin 22.6 pg (27.0-33.0); Mean Corpuscular Volume 79.3 fL (80.0-98.0); Platelet Count 179 X10*3/uL (160-400); Red Blood Count 3.19 X10*6/uL (4.60-5.80); Red Cell Distribution Width 17.6 % (11.0-16.0); White Blood Count 10.3 X10*3/uL (4.8-10.8)
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
[2021-08-31] MEDS: Tamsulosin HCL 0.4 MG CAPSULE PO (17:13)
[2021-08-31] MEDS: Ferrous Sulfate 324 MG TABLET.DR PO (17:13)
[2021-08-31] MEDS: Ipratropium Bromide 1 PUFF/17 MCG INHALER INHALE (17:17)
[2021-08-31] MEDS: busPIRone HCl 10 MG TABLET 30 MG PO (20:38)
[2021-08-31] MEDS: Amitriptyline HCl 50 MG TABLET 150 MG PO (20:39)
[2021-08-31] MEDS: Montelukast Sodium 10 MG TABLET PO (20:40)
[2021-08-31] MEDS: Divalproex Sodium ER 500 MG TAB.ER.24H 1500 MG PO (20:40)
[2021-08-31] MEDS: ARIPiprazole 30 MG TABLET PO (20:58)
--- NOTE | 2021-08-31 23:26 | PM.EVENT ---
Event Note Date of Service: 08/31/21 Event Note: pt was adamant about receivng Oxy dose stating that he has too much pain and cannot sleep. he was aggressive, very agitated, screaming,and verbally abusive.He given 5 mg of Oxy. pt became drowsy and hypoxic. placed back on O2. I belive pt is seeking at this point and should not be given any more narcotics as are contributing to his mentation and hypoxia.
[2021-09-01] VITALS (8 sets, daily range): BP systolic 106–128; BP diastolic 62–84; PULSE 80–105; RESP 14–20; TEMP 36.6–37.8; O2SAT 91–99
[2021-09-01 00:09] LABS: ABG Base Excess 10.9 mmol/L; ABG HCO3 36 mmol/L (22-26); ABG pCO2 54 mmHg (32-45); ABG pH 7.43 (7.35-7.45); ABG pO2 83 mmHg (83-108)
[2021-09-01 01:06] LABS: ABG Refer to POC result
[2021-09-01 04:35] LABS: Hematocrit 23.9 % (42.0-52.0); Mean Corpuscular HGB Conc 28.9 g/dl (31.0-36.0); Mean Corpuscular Hemoglobin 22.7 pg (27.0-33.0); Mean Corpuscular Volume 78.6 fL (80.0-98.0); Mean Platelet Volume 9.9 fL (9.4-12.4); Platelet Count 185 X10*3/uL (160-400); Red Blood Count 3.04 X10*6/uL (4.60-5.80); Red Cell Distribution Width 17.2 % (11.0-16.0); White Blood Count 9.7 X10*3/uL (4.8-10.8)
[2021-09-01 04:45] LABS: Hemoglobin 6.9 g/dl (14.0-18.0)
[2021-09-01 05:05] LABS: Anion Gap 13 (12-20); Blood Urea Nitrogen 17 mg/dL (9-16); Calcium 8.5 mg/dL (8.4-10.2); Carbon Dioxide 31 mmol/L (22-29); Chloride 96 mmol/L (96-108); Creatinine Clr Calc Pharmacy 187.6; Estimated Glomerular Filt Rate > 60; Glucose Random 100 mg/dL (60-115); Potassium 4.5 mmol/L (3.3-5.1); Sodium 135 mmol/L (135-145)
[2021-09-01] MEDS: Albuterol/Iprat 2.5/0.5MG 3 ML AMPUL.NEB INHALE ×3 (07:47→17:55)
[2021-09-01] MEDS: Fluticasone/Vilanterol 100/25 BLST.W.DEV 1 PUFF INHALE (07:48)
[2021-09-01] MEDS: Lactulose 20 GM/30 ML SOLUTION PO (10:07)
[2021-09-01] MEDS: cloNIDine HCL 0.1 MG TABLET 0.3 MG PO (10:09)
--- NOTE | 2021-09-01 10:11 | P.CDIC_ITS ---
CDI Concurrent Query Documentation Clarification: PHYSICIAN'S DOCUMENTATION REQUEST Date of Query: 09/01/21 1012 Patient Name: Lauri Moralez Admit Date: 08/30/21 Dear Doctor, A review of the medical record indicates additional documentation may be needed. Please review below and update the documentation accordingly. Clinical Indicators: Height: [] 6 FT Weight: [] 144.4 kg BMI: [] 43.2 Other Clinical Notes Supporting Significance of the BMI: Risk Factors/Clinical Indicators/Treatments If possible, please provide an associated diagnosis related to the abnormal BMI, such as: For a BMI >= 40: * Overweight * Obesity * Due to excess calories * Drug induced * Due to other cause * Severe or Morbid Obesity * With alveolar hypoventilation * Without alveolar hypoventilation Or: * BMI is not significant * Other (please specify) * Unable to determine Use of terms such as suspected, likely, concern for, or probable (associated with a specific diagnosis that is being evaluated, monitored, or treated as if it exists) are acceptable and can be coded in the inpatient setting, when documented at the time of discharge. Thank you, Halima Castañeda RN Extension: [phone] Please use your independent medical judgment in providing your response. THIS QUERY IS PART OF THE PERMANENT MEDICAL RECORD Provider Response: Other Other Diagnosis: Morbidly obese
[2021-09-01] MEDS: Amoxicillin/Potassium Clav 875 MG TABLET PO ×2 (10:12→22:25)
[2021-09-01] MEDS: Ferrous Sulfate 324 MG TABLET.DR PO ×2 (10:12→16:44)
[2021-09-01] MEDS: 0.9 % Sodium Chloride Flush 3 ML SYRINGE IVFLUSH ×4 (10:12→22:26)
[2021-09-01] MEDS: Furosemide 100 MG/10 ML VIAL 60 MG IVPUSH ×2 (10:13→17:14)
[2021-09-01] MEDS: Bethanechol Chloride 25 MG TABLET 12.5 MG PO ×3 (10:17→22:26)
--- NOTE | 2021-09-01 12:41 | HO.PM.IMPN ---
Subjective Subjective Date of Service: 09/01/21 Interval History: the patient was seen and evaluated this morning Sleeping in his bed, more drowsy and sleepy Open his eyes and speak with unclear reports sometimes but can set up if he wants to and goes back to sleep quickly Denies any fever, chills or shortness of breath Had an episode of screaming and excessive aggression toward the staff overnight requesting pain medications Systemic review: No fever, chills but reports some generalized weakness No chest pain, palpitation No shortness of breath or coughing No abdominal pain, nausea or vomiting No urinary symptoms No any rash or wounds Physical Exam Vital Signs: Vital Signs: Last Vital Signs Temp 100.1 F 09/01/21 12:00 Pulse 105 H 09/01/21 12:00 Resp 20 09/01/21 12:00 BP 106/63 09/01/21 12:00 Pulse Ox 92 09/01/21 12:00 O2 Del Method 09/01/21 12:00 O2 Flow Rate 2 09/01/21 08:00 BMI result Body Mass Index 43.2 Const: Other: Constitutional :? Alert with stimulation otherwise goes back to sleep, not in distress Eyes:? Both pupils are reactive to light bilaterally ?Neck : Normal inspection, Supple Cardiovascular : RRR, no JVP, +1 bilateral lower extremity edema Respiratory : fair bilateral air entry, basal bilateral fine crackles, decreased fine expiratory wheezes Gastrointestinal:? soft, lax, Normal bowel sounds, Non tender Skin : Warm, Dry, chronic leg wounds with no clear infection Neurological :? Altered mentation but becomes Alert with stimulation, oriented to self and place, no focal deficit noted Objective Data Active Medications Acetaminophen (Acetaminophen 325 Mg Tablet) 650 mg PO Q6H PRN PRN Reason: Pain, Mild (Pain Scale 1-3) Acetaminophen/Codeine Phosphate (Acetaminophen With Codeine # 3 Tablet) 2 tab PO Q8H PRN PRN Reason: Pain, Severe (Pain Scale 7-10) Al Hydroxide/Mg Hydroxide (Magnesium Hydrox/Alum Hydrox 30 Ml Oral.Susp) 30 ml PO Q6H PRN PRN Reason: Heartburn/Nausea Albuterol Sulfate (Albuterol Sulfate 90 Mcg 8 Gm Inhaler) 1 puff INHALE RQ4H PRN PRN Reason: asthma Albuterol/Ipratropium (Albuterol/Iprat 2.5/0.5mg 3 Ml Ampul.Neb) 3 ml INHALE RQ4H WHILE AWAKE [facility] Last Admin: 09/01/21 11:28 Dose: 3 ml Documented By: KEYANNA Amitriptyline HCl (Amitriptyline Hcl 50 Mg Tablet) 150 mg PO BEDTIME [facility] Last Admin: 08/31/21 20:39 Dose: 150 mg Documented By: RACQUEL Amoxicillin/Clavulanate Potassium (Amoxicillin/Potassium Clav 875 Mg Tablet) 875 mg PO Q12H [facility] Last Admin: 09/01/21 10:12 Dose: 875 mg Documented By: JACLYN Aripiprazole (Aripiprazole 30 Mg Tablet) 30 mg PO BEDTIME [facility] Last Admin: 08/31/21 20:58 Dose: 30 mg Documented By: RACQUEL Benzonatate (Benzonatate 100 Mg Capsule) 100 mg PO TID PRN PRN Reason: Cough Bethanechol Chloride (Bethanechol Chloride 25 Mg Tablet) 12.5 mg PO TID [facility] Last Admin: 09/01/21 10:17 Dose: 12.5 mg Documented By: JACLYN Buspirone HCl (Buspirone Hcl 10 Mg Tablet) 30 mg PO BID [facility] Last Admin: 09/01/21 08:58 Dose: Not Given Documented By: JACLYN Non-Admin Reason: Physician Held Med Clonidine HCl (Clonidine Hcl 0.2 Mg Tablet) 0.2 mg PO BID [facility]; Protocol Diazepam (Diazepam 5 Mg Tablet) 10 mg PO BID PRN PRN Reason: anxiety/restlessness Divalproex Sodium (Divalproex Sodium Er 500 Mg Tab.Er.24h) 2,000 mg PO BEDTIME [facility] Docusate Sodium (Docusate Sodium 100 Mg Capsule) 100 mg PO DAILY PRN PRN Reason: Constipation Ferrous Sulfate (Ferrous Sulfate 324 Mg Tablet.Dr) 324 mg PO BIDWM [facility] Last Admin: 09/01/21 10:12 Dose: 324 mg Documented By: JACLYN Fluticasone/Vilanterol (Fluticasone/Vilanterol 100/25 Blst.W.Dev) 1 puff INHALE RDAILY [facility] Last Admin: 09/01/21 07:48 Dose: 1 puff Documented By: KEYANNA Furosemide (Furosemide 100 Mg/10 Ml Vial) 60 mg IVPUSH BID@0900,1800 [facility]; Protocol Last Admin: 09/01/21 10:13 Dose: 60 mg Documented By: JACLYN Ipratropium Demotte (Ipratropium Demotte 1 Puff/17 Mcg Inhaler) 1 puff INHALE RQID [facility] Last Admin: 09/01/21 11:30 Dose: Not Given Documented By: KEYANNA Non-Admin Reason: See Note Methadone HCl (Methadone Hcl 20 Mg/2 Ml Oral.Conc) 25 mg PO DAILY [facility] Last Admin: 09/01/21 10:18 Dose: Not Given Documented By: JACLYN Non-Admin Reason: Physician Held Med Montelukast Sodium (Montelukast Sodium 10 Mg Tablet) 10 mg PO BEDTIME [facility] Last Admin: 08/31/21 20:40 Dose: 10 mg Documented By: RACQUEL Nicotine (Nicotine 21 Mg Patch.Td24) 21 mg TRANSDERMA DAILY [facility] Last Admin: 09/01/21 10:21 Dose: Not Given Documented By: JACLYN Non-Admin Reason: Patient Refused Omeprazole (Omeprazole 20 Mg Capsule.Dr) 20 mg PO BID@0630,1630 [facility] Last Admin: 09/01/21 06:11 Dose: Not Given Documented By: RACQUEL Non-Admin Reason: Drowsy, unsafe to swallow Polyethylene Glycol (Polyethylene Glycol 3350 17 Gm Powd.Pack) 17 gm PO DAILY PRN PRN Reason: Constipation Last Admin: 08/30/21 23:34 Dose: 17 gm Documented By: XAVI Pregabalin (Pregabalin 200 Mg Capsule) 200 mg PO BID [facility] Last Admin: 09/01/21 08:58 Dose: Not Given Documented By: JACLYN Non-Admin Reason: Physician Held Med Promethazine HCl (Promethazine Hcl 25 Mg Tablet) 25 mg PO Q6H PRN PRN Reason: Nausea Sodium Chloride (0.9 % Sodium Chloride Flush 3 Ml Syringe) 3 ml IVFLUSH QSHIFT [facility] Last Admin: 09/01/21 10:12 Dose: 3 ml Documented By: JACLYN Tamsulosin HCl (Tamsulosin Hcl 0.4 Mg Capsule) 0.4 mg PO DAILY@1730 [facility] Last Admin: 08/31/21 17:13 Dose: 0.4 mg Documented By: JAMSHID Tizanidine HCl (Tizanidine Hcl 4 Mg Tablet) 4 mg PO TID PRN PRN Reason: Muscle Spasm Last Admin: 08/31/21 20:39 Dose: 4 mg Documented By: RACQUEL Labs CBC & Chem 7: 09/01/21 04:15 09/01/21 04:15 Labs: Laboratory Results - last 24 hr 08/31/21 09/01/21 09/01/21 14:53 00:04 04:15 MCV 79.3 L 78.6 L MCH 22.6 L 22.7 L MCHC 28.5 L 28.9 L RDW 17.6 H 17.2 H Plt Count 179 185 MPV 10.0 9.9 Absolute Nucleated RBC 0.000 0.000 Nucleated RBC % (auto) 0.0 0.0 O2 Saturation 96.0 ABG pH at Pt Temp 7.43 ABG pCO2 at Pt Temp 54 H ABG pO2 at Pt Temp 83 ABG HCO3 36 H ABG Base Excess (Actual) 10.9 Anion Gap Estim Creat Clear Calc Estimated GFR Random Glucose Calcium 09/01/21 04:15 MCV MCH MCHC RDW Plt Count MPV Absolute Nucleated RBC Nucleated RBC % (auto) O2 Saturation ABG pH at Pt Temp ABG pCO2 at Pt Temp ABG pO2 at Pt Temp ABG HCO3 ABG Base Excess (Actual) Anion Gap 13 Estim Creat Clear Calc 187.6 Estimated GFR > 60 Random Glucose 100 Calcium 8.5 Assessment and Plan (1) Fluid overload: Status: Acute (2) Pneumonia: Status: Acute (3) Acute respiratory failure with hypoxia: Status: Acute (4) Toxic metabolic encephalopathy: Status: Acute (5) Adjustment disorder with mixed disturbance of emotions and conduct in remission: Status: Acute (6) Chronic venous stasis: Status: Acute Plan A 41 years old male with PMH of bipolar disease, PTSD, opioid abuse on methadone, chronic venous status, on multi pharmacy who was admitted to the psych floor for behavioral problem. Toxic metabolic encephalopathy Fluctuating, likely secondary to multi pharmacy CXR showing possible atypical infection Restart home medication gradually and monitor response Acute respiratory failure with hypoxia Secondary to aspiration pneumonia VS pulmonary edema Weaned down the oxygen CXR showing atypical infiltrates Mildly BNP Pending blood cultures Continue IV Lasix 60 mg b.i.d. Continue oral Augmentin Acute Anemia of unclear etiology Could be secondary to GI bleed from NSAIDs usage Pending occult blood Low iron stores, give iron supplement Start IV pantoprazole Pending GI evaluation Behavioral problem Psychiatry input appreciated, continue Abilify, the amitriptyline, buspiron and Depakote Will cut down diazepam, DC baclofen, DC Atarax, DC Zofran and Reglan Bilateral venous status LD Continue Lasix IV Negative ultrasound Doppler for DVT Morbid obesity Advised to lose weight ?DVT PPX SCDs The patient will likely need overnight hospital stay to finish workup for fluid overload and acute respiratory failure to prevent possible decompensation in to severe sepsis Quality Stroke Does the patient have a stroke diagnosis?: No VTE Prior VTE?: No VTE Risk Level:: Medical - moderate - high VTE Device Contraindication: Treatment Not Indicated VTE Drug Contraindication: N/A - Med Ordered
[2021-09-01] MEDS: Pantoprazole Sodium 40 MG/10 ML VIAL IVPUSH ×2 (13:14→22:26)
[2021-09-01] MEDS: TiZANidine HCL 4 MG TABLET PO (16:37)
[2021-09-01] MEDS: Tamsulosin HCL 0.4 MG CAPSULE PO (16:44)
[2021-09-01] MEDS: Promethazine HCL 25 MG TABLET PO ×2 (16:44→22:54)
[2021-09-01] MEDS: Albuterol Sulfate 90 MCG 8 GM INHALER 1 PUFF INHALE (16:59)
[2021-09-01] MEDS: Pregabalin 200 MG CAPSULE PO (22:25)
[2021-09-01] MEDS: Amitriptyline HCl 50 MG TABLET 150 MG PO (22:25)
[2021-09-01] MEDS: ARIPiprazole 30 MG TABLET PO (22:25)
[2021-09-01] MEDS: busPIRone HCl 10 MG TABLET 30 MG PO (22:25)
[2021-09-01] MEDS: Montelukast Sodium 10 MG TABLET PO (22:26)
[2021-09-01] MEDS: Divalproex Sodium ER 500 MG TAB.ER.24H 2000 MG PO (22:26)
[2021-09-01] MEDS: polyethylene glycoL 3350 17 GM POWD.PACK PO (23:20)
--- NOTE | 2021-09-01 23:50 | PM.EVENT ---
Event Note Date of Service: 09/01/21 Event Note: GI Consult-Full note dictated. Imp: 41yo male with Iron def anemia and microcytic indices. He relates using Ibuprofen 800mg BID or TID fairly regularly. However, he denies any specific GI symptoms nor any signs of bleeding. His Hgb has been drifting down and he will be receiving transfusions. Dif dx: NSAID related UGI source of blood loss such as an ulcer or erosive gastritis. However, can't R/O a lower GI source. Rec: EGD/Colonoscopy with MAC on 09/[address] or [address]. Alfaro, assuming the patient cooperates with the prep and change in diet. I have placed orders for all of that. Full consent has been obtained for this, including risks of bleeding and perforation. Follow Hgb. D/W patient. Thanks
[2021-09-02] VITALS (10 sets, daily range): BP systolic 120–154; BP diastolic 67–93; PULSE 90–106; RESP 16–20; TEMP 36.2–37.2; O2SAT 90–100
--- NOTE | 2021-09-02 00:10 | MHC.SHP ---
Pre-Procedural Eval Section A Date of Service: 09/03/21 The patient is an INPATIENT: Yes The History & Physical has been completed within 30 days and I have reviewed it.: Yes Section B Chief Complaint: Encephalopathy, PNA Allergies: Allergies Allergy/AdvReac Type Severity Reaction Status Date / Time No Known Allergies Allergy Verified 08/28/21 22:18 Plan I have reviewed the history and physical and performed a pertinent physical examination on my patient. No changes have occurred unless specified.
[2021-09-02 00:30] LABS: OBS Int Ctl Valid YES; OBS1 NEGATIVE (NEGATIVE)
[2021-09-02] MEDS: methylPREDNISolone Sod Succ 40 MG/ML VIAL IVPUSH (00:51)
[2021-09-02] MEDS: diazePAM 5 MG TABLET 10 MG PO ×2 (00:55→16:20)
--- NOTE | 2021-09-02 04:28 | CONS_ITS ---
DATE OF SERVICE: 09/01/2021 REASON FOR CONSULTATION: Anemia. HISTORY OF PRESENT ILLNESS: This has been obtained from the patient, the medical record, and the nursing staff. The patient is a 41-year-old male with underlying psychiatric disease, who was transferred from the psychiatric service to the medical service on August 30 due to some hypoxia and altered mental status. The patient has an underlying history of schizophrenia, bipolar disorder, PTSD, chronic venous stasis and lower extremity edema, and some history of substance abuse for which he is on methadone. He apparently has been noted to have a progressive decline in his hemoglobin. Hemoglobin on August 30 was 8.7 with MCV of 81. His hemoglobin has drifted down to 6.9 today with MCV of 78.6. The patient had been taking a lot of ibuprofen at home. He describes that he is a former smoker and does not use alcohol. He denies any particular GI symptoms such as dysphagia or heartburn. He denies any recent abdominal pain. There has been no report of melena nor hematochezia. The patient does describe that he has had a longstanding history of anemia, but cannot recall any specific GI workup. He has been tolerating a diet here and denies any nausea, vomiting, nor dysphagia. CURRENT MEDICATIONS: His medications here in the hospital include acetaminophen with codeine p.r.n., albuterol inhaler p.r.n., amitriptyline, Augmentin, Abilify, Tessalon p.r.n., bethanechol chloride, BuSpar, clonidine, Valium p.r.n., divalproex, Colace p.r.n., ferrous sulfate, Lasix, lactulose, Antacid p.r.n., methadone, montelukast, nicotine patch, pantoprazole 40 mg IV b.i.d., MiraLAX p.r.n., Lyrica, Phenergan p.r.n., tamsulosin, tizanidine. PAST MEDICAL HISTORY: 1. Anemia, that he describes has been longstanding 2. Chronic venous stasis and lower extremity edema. 3. Bipolar disease. 4. PTSD. 5. ADHD. 6. COPD. 7. Depression and anxiety. 8. GERD. 9. Hypothyroidism. 10. Substance abuse. SOCIAL HISTORY: He reports he lives with his mother. He describes that he is a former smoker. He denies alcohol use. FAMILY HISTORY: Noncontributory. REVIEW OF SYSTEMS: CONSTITUTIONAL: The patient has been feeling poorly in general. CARDIAC: No chest pain. PULMONARY: No cough nor hemoptysis. GI: As above. PHYSICAL EXAMINATION: GENERAL: The patient is an alert, obese male. He is cooperative for the most part, but his history is somewhat vague. At times, he does get agitated during the interview, but in general was cooperative and was fairly calm. HEENT: Anicteric sclerae. NECK: Supple. CARDIAC: Normal S1, S2. ABDOMEN: Soft, nondistended, nontender. LABORATORY DATA: White blood cell count 9.7, hemoglobin 6.9, MCV 78.6, platelets 185,000 today. Normal electrolytes. BUN 17, creatinine 0.8. His iron on August 30 was 11 with an iron saturation of 3%. Liver profile on August 30 was completely normal except for an AST of 66. Albumin was 3.6. His toxicology screen on August 29 was positive for opiates and benzodiazepines in the urine. A Doppler ultrasound of his lower extremities was negative for any DVT. Chest x-ray describes some multifocal airspace opacities concerning for atypical infection. IMPRESSION: The patient is a 41-year-old male with what appears to be chronic and worsening anemia with some microcytic indices and a low iron saturation of only 3%. He had been using a lot of ibuprofen at home. Given the clinical history, I suspect this most likely reflects chronic upper GI blood loss, although without overt GI bleeding as he denies any melena nor vomiting. Given his age approaching 42, I would also want to exclude any lower GI source such as neoplasm. As such, I did recommend to the patient that he undergo upper endoscopy and colonoscopy with monitored anesthesia care while he is here, so as to facilitate the procedures being done and being sure that this gets evaluated properly. Full consent has been obtained for both procedures, including risks of bleeding and perforation. I did advise that this will be done with monitored anesthesia care by either me or Dr. Alfaro. The current plan would be to try to do the procedures on September 03, after an adequate bowel prep tomorrow. In the meantime, I will hold his iron and he should not be receiving any aspirin, anticoagulants, nor any other blood thinners. This has been discussed with the patient and the hospitalist. Given his psychiatric history, I am hopeful that he will cooperate with the bowel prep. He will obviously need to stay on a clear liquid diet tomorrow as well. Thank you for the consultation. MD JASON Mcnally/CHRIS / [phone] MTDD
--- NOTE | 2021-09-02 05:32 | PC.NURSE ---
Assumed care at 1900. Pt initially drowsy, arousable to name and able to answer few questions then falls asleep quickly. Vitals WNL. Breathing even and unlabored, RR 14. and vascular ultrasound technologist Eva Paris notified. CLOSING MACHINE OPERATOR advised this RN to hold Clonidine. Pt took remaining scheduled meds without issue. Approximately 2300 pt more alert, pulled off tele monitor and threw it across room, stating I told them I didn't want this . Pt A+Ox3, agitated, demanding and using inappropriate language. Pt educated on appropriate behavior. PRN Tylenol with Codeine #3, PRN Phenergan and PRN Miralax given for generalized pain, nausea, and constipation with good effect. Shortly after, pt complaining of SOB, sating 100% on RA, wheezing throughout, pt refusing breathing tx stating those don't do anything . Pt adamant about receiving Prednisone yelling thats the only thing that helps . notified, given one time dose IV Solumedrol for SOB and PRN Diazepam for anxiety/restlessness, both given with good effect. Pt now resting in bed. 1:1 sitter at bedside, telesitter and high fall risk protocol in place for patient safety.
[2021-09-02 06:47] LABS: Hematocrit 29.6 % (42.0-52.0); Hemoglobin 8.7 g/dl (14.0-18.0); Mean Corpuscular HGB Conc 29.4 g/dl (31.0-36.0); Mean Corpuscular Hemoglobin 23.4 pg (27.0-33.0); Mean Corpuscular Volume 79.6 fL (80.0-98.0); Mean Platelet Volume 10.2 fL (9.4-12.4); Platelet Count 230 X10*3/uL (160-400); Red Blood Count 3.72 X10*6/uL (4.60-5.80); Red Cell Distribution Width 16.7 % (11.0-16.0); White Blood Count 7.7 X10*3/uL (4.8-10.8)
[2021-09-02 06:56] LABS: INTERNATIONAL NORM RATIO 1.2 (0.9-1.1)
[2021-09-02 07:10] LABS: Anion Gap 11 (12-20); Blood Urea Nitrogen 11 mg/dL (9-16); Carbon Dioxide 34 mmol/L (22-29); Chloride 99 mmol/L (96-108); Creatinine Clr Calc Pharmacy 197.7; Estimated Glomerular Filt Rate > 60; Glucose Random 177 mg/dL (60-115); Potassium 4.8 mmol/L (3.3-5.1); Sodium 139 mmol/L (135-145)
[2021-09-02 07:40] LABS: Folate 14.8 ng/mL (> or = 4.0); Vitamin B12 496 pg/mL (200-900)
[2021-09-02 07:49] LABS: Ferritin 85 ng/mL (20-250)
[2021-09-02] MEDS: Nicotine 21 MG PATCH.TD24 TRANSDERMA (08:07)
[2021-09-02] MEDS: Bethanechol Chloride 25 MG TABLET 12.5 MG PO ×3 (08:07→20:36)
[2021-09-02] MEDS: busPIRone HCl 10 MG TABLET 30 MG PO ×2 (08:08→23:00)
[2021-09-02] MEDS: Furosemide 100 MG/10 ML VIAL 60 MG IVPUSH ×2 (08:08→16:20)
[2021-09-02] MEDS: cloNIDine HCL 0.2 MG TABLET PO ×2 (08:08→20:35)
[2021-09-02] MEDS: Pregabalin 200 MG CAPSULE PO ×2 (08:08→20:35)
[2021-09-02] MEDS: Albuterol/Iprat 2.5/0.5MG 3 ML AMPUL.NEB INHALE (08:09)
[2021-09-02] MEDS: Pantoprazole Sodium 40 MG/10 ML VIAL IVPUSH ×2 (08:09→20:34)
[2021-09-02] MEDS: methADONE HCl 20 MG/2 ML ORAL.CONC 25 MG PO (08:09)
[2021-09-02] MEDS: 0.9 % Sodium Chloride Flush 3 ML SYRINGE IVFLUSH ×3 (08:09→20:40)
[2021-09-02] MEDS: Fluticasone Propionate Nasal 16 GM SPRAY 2 SPRAY NOSTRIL-B (08:10)
[2021-09-02] MEDS: Fluticasone/Vilanterol 100/25 BLST.W.DEV 1 PUFF INHALE (08:13)
[2021-09-02] MEDS: Amoxicillin/Potassium Clav 875 MG TABLET PO ×2 (11:19→23:01)
--- NOTE | 2021-09-02 11:44 | HO.PM.IMPN ---
Subjective Subjective Date of Service: 09/02/21 Interval History: More alert and interactive this morning, aggressive to the medical staff No reported bloody bowel motions Hemoglobin improved to 8.7 after 1 unit transfusion Systemic review: No fever, chills but reports generalized weakness and pain No chest pain, palpitation No shortness of breath or coughing No abdominal pain, nausea or vomiting No urinary symptoms No any rash or wounds Physical Exam Vital Signs: Vital Signs: Last Vital Signs Temp 98.6 F 09/02/21 11:34 Pulse 100 09/02/21 11:34 Resp 20 09/02/21 11:34 BP 149/86 H 09/02/21 11:34 Pulse Ox 93 09/02/21 11:34 O2 Del Method 09/02/21 11:34 O2 Flow Rate 2 09/02/21 07:41 BMI result Body Mass Index 43.2 Const: Other: Constitutional :? Alert , interactive, mildly anxious Eyes:? Both pupils are reactive to light bilaterally ?Neck : Normal inspection, Supple Cardiovascular : RRR, no JVP, trace bilateral lower extremity edema Respiratory : fair bilateral air entry, basal bilateral fine crackles, decreased fine expiratory wheezes Gastrointestinal:? soft, lax, Normal bowel sounds, Non tender Skin : Warm, Dry, chronic leg wounds with no clear infection Neurological :? Alert, oriented to self and place, no focal deficit noted Objective Data Active Medications Acetaminophen/Codeine Phosphate (Acetaminophen With Codeine # 3 Tablet) 2 tab PO Q6H PRN PRN Reason: Pain, Severe (Pain Scale 7-10) Al Hydroxide/Mg Hydroxide (Magnesium Hydrox/Alum Hydrox 30 Ml Oral.Susp) 30 ml PO Q6H PRN PRN Reason: Heartburn/Nausea Albuterol Sulfate (Albuterol Sulfate 90 Mcg 8 Gm Inhaler) 1 puff INHALE RQ4H PRN PRN Reason: asthma Last Admin: 09/01/21 16:59 Dose: 1 puff Documented By: IOANA Albuterol/Ipratropium (Albuterol/Iprat 2.5/0.5mg 3 Ml Ampul.Neb) 3 ml INHALE RQ4H WHILE AWAKE [facility] Last Admin: 09/02/21 08:09 Dose: 3 ml Documented By: KEYANNA Amitriptyline HCl (Amitriptyline Hcl 50 Mg Tablet) 150 mg PO BEDTIME [facility] Last Admin: 09/01/21 22:25 Dose: 150 mg Documented By: RACQUEL Amoxicillin/Clavulanate Potassium (Amoxicillin/Potassium Clav 875 Mg Tablet) 875 mg PO Q12H [facility] Last Admin: 09/02/21 11:19 Dose: 875 mg Documented By: JACLYN Aripiprazole (Aripiprazole 30 Mg Tablet) 30 mg PO BEDTIME [facility] Last Admin: 09/01/21 22:25 Dose: 30 mg Documented By: RACQUEL Benzonatate (Benzonatate 100 Mg Capsule) 100 mg PO TID PRN PRN Reason: Cough Bethanechol Chloride (Bethanechol Chloride 25 Mg Tablet) 12.5 mg PO TID [facility] Last Admin: 09/02/21 08:07 Dose: 12.5 mg Documented By: JACLYN Bisacodyl (Bisacodyl 5 Mg Tablet.) 10 mg PO ONCE ONE Stop: 09/02/21 15:01 Bisacodyl (Bisacodyl 5 Mg Tablet.) 10 mg PO ONCE@1900 [facility] Stop: 09/02/21 19:01 Buspirone HCl (Buspirone Hcl 10 Mg Tablet) 30 mg PO BID [facility] Last Admin: 09/02/21 08:08 Dose: 30 mg Documented By: JACLYN Clonidine HCl (Clonidine Hcl 0.2 Mg Tablet) 0.2 mg PO BID [facility]; Protocol Last Admin: 09/02/21 08:08 Dose: 0.2 mg Documented By: JACLYN Diazepam (Diazepam 5 Mg Tablet) 10 mg PO BID PRN PRN Reason: anxiety/restlessness Last Admin: 09/02/21 00:55 Dose: 10 mg Documented By: RACQUEL Divalproex Sodium (Divalproex Sodium Er 500 Mg Tab.Er.24h) 2,000 mg PO BEDTIME [facility] Last Admin: 09/01/21 22:26 Dose: 2,000 mg Documented By: RACQUEL Docusate Sodium (Docusate Sodium 100 Mg Capsule) 100 mg PO DAILY PRN PRN Reason: Constipation Fluticasone Propionate (Fluticasone Propionate Nasal 16 Gm [place]) 2 spray NOSTRIL-B DAILY [facility] Last Admin: 09/02/21 08:10 Dose: 2 spray Documented By: JACLYN Fluticasone/Vilanterol (Fluticasone/Vilanterol 100/25 Blst.W.Dev) 1 puff INHALE RDAILY [facility] Last Admin: 09/02/21 08:13 Dose: 1 puff Documented By: KEYANNA Furosemide (Furosemide 100 Mg/10 Ml Vial) 60 mg IVPUSH BID@0900,1800 [facility]; Protocol Last Admin: 09/02/21 08:08 Dose: 60 mg Documented By: JACLYN Methadone HCl (Methadone Hcl 20 Mg/2 Ml Oral.Conc) 25 mg PO DAILY [facility] Last Admin: 09/02/21 08:09 Dose: 25 mg Documented By: JACLYN Montelukast Sodium (Montelukast Sodium 10 Mg Tablet) 10 mg PO BEDTIME [facility] Last Admin: 09/01/21 22:26 Dose: 10 mg Documented By: RACQUEL Nicotine (Nicotine 21 Mg Patch.Td24) 21 mg TRANSDERMA DAILY [facility] Last Admin: 09/02/21 08:07 Dose: 21 mg Documented By: JACLYN Pantoprazole Sodium (Pantoprazole Sodium 40 Mg/10 Ml Vial) 40 mg IVPUSH BID [facility] Last Admin: 09/02/21 08:09 Dose: 40 mg Documented By: JACLYN Polyethylene Glycol (Polyethylene Glycol 3350 17 Gm Powd.Pack) 17 gm PO DAILY PRN PRN Reason: Constipation Last Admin: 09/01/21 23:20 Dose: 17 gm Documented By: RACQUEL Polyethylene Glycol/Electrolytes (Peg 3350/Na Sulf,Bicarb,Cl/Kcl 4,000 Ml Soln.Recon) 4,000 ml PO ONCE@1500 [facility] Stop: 09/02/21 15:01 Pregabalin (Pregabalin 200 Mg Capsule) 200 mg PO BID [facility] Last Admin: 09/02/21 08:08 Dose: 200 mg Documented By: JACLYN Promethazine HCl (Promethazine Hcl 25 Mg Tablet) 25 mg PO Q6H PRN PRN Reason: Nausea Last Admin: 09/01/21 22:54 Dose: 25 mg Documented By: RACQUEL Sodium Chloride (0.9 % Sodium Chloride Flush 3 Ml Syringe) 3 ml IVFLUSH QSHIFT [facility] Last Admin: 09/02/21 08:09 Dose: 3 ml Documented By: JACLYN Tamsulosin HCl (Tamsulosin Hcl 0.4 Mg Capsule) 0.4 mg PO DAILY@1730 [facility] Last Admin: 09/01/21 16:44 Dose: 0.4 mg Documented By: IOANA Tizanidine HCl (Tizanidine Hcl 4 Mg Tablet) 4 mg PO TID PRN PRN Reason: Muscle Spasm Last Admin: 09/01/21 16:37 Dose: 4 mg Documented By: IOANA Labs CBC & Chem 7: 09/02/21 06:20 09/02/21 06:20 Labs: Laboratory Results - last 24 hr 09/01/21 09/02/21 09/02/21 18:31 00:04 06:20 MCV MCH MCHC RDW Plt Count MPV Absolute Nucleated RBC Nucleated RBC % (auto) PT INR Anion Gap Estim Creat Clear Calc Estimated GFR Random Glucose Calcium Ferritin 85 Vitamin B12 Folate Stool Occult Blood NEGATIVE Blood Type O Positive Antibody Screen NEGATIVE Crossmatch See Detail 09/02/21 09/02/21 09/02/21 06:20 06:20 06:20 MCV 79.6 L MCH 23.4 L MCHC 29.4 L RDW 16.7 H Plt Count 230 MPV 10.2 Absolute Nucleated RBC 0.000 Nucleated RBC % (auto) 0.0 PT INR Anion Gap 11 L Estim Creat Clear Calc 197.7 Estimated GFR > 60 Random Glucose 177 H D Calcium 9.0 Ferritin Vitamin B12 496 Folate 14.8 Stool Occult Blood Blood Type Antibody Screen Crossmatch 09/02/21 06:20 MCV MCH MCHC RDW Plt Count MPV Absolute Nucleated RBC Nucleated RBC % (auto) PT 14.0 H INR 1.2 H Anion Gap Estim Creat Clear Calc Estimated GFR Random Glucose Calcium Ferritin Vitamin B12 Folate Stool Occult Blood Blood Type Antibody Screen Crossmatch Assessment and Plan (1) Antisocial personality disorder: Status: Acute (2) Fluid overload: Status: Acute (3) Pneumonia: Status: Acute (4) Toxic metabolic encephalopathy: Status: Acute (5) Chronic venous stasis: Status: Acute (6) Anemia: Status: Acute Plan A 41 years old male with PMH of bipolar disease, PTSD, opioid abuse on methadone, chronic venous status, on multi pharmacy who was admitted to the psych floor for behavioral problem. Toxic metabolic encephalopathy Improved, fluctuate during the day from multi pharmacy Restart home medication gradually and monitor response DC baclofen, DC Atarax, DC Zofran and Reglan Acute respiratory failure with hypoxia Secondary to aspiration pneumonia, pulmonary edema Weaned down the oxygen CXR showing atypical infiltrates Mildly elevated BNP Negative blood cultures Continue IV Lasix 60 mg b.i.d. Continue oral Augmentin day 4 Acute Anemia of unclear etiology Could be secondary to GI bleed from NSAIDs usage Hemoglobin of 8.7 after 1 unit transfusion Negative occult blood Low iron stores, give iron supplement Continue IV pantoprazole GI input appreciated, overnight preparation and upper and lower endoscopy in the morning Keep NPO after midnight and clear liquids until then Behavioral problem, anxiety Psychiatry input appreciated, continue Abilify, the amitriptyline, buspiron and Depakote Will cut down diazepam, DC baclofen, DC Atarax, DC Zofran and Reglan Bilateral venous stasis Continue Lasix IV Negative ultrasound Doppler for DVT Morbid obesity Advised to lose weight ?DVT PPX SCDs The patient will likely need overnight hospital stay to finish workup for fluid overload and acute respiratory failure pending GI evaluation for anemia to prevent possible GI bleed Quality Stroke Does the patient have a stroke diagnosis?: No VTE Prior VTE?: No VTE Risk Level:: Medical - moderate - high VTE Device Contraindication: Treatment Not Indicated VTE Drug Contraindication: N/A - Med Ordered
[2021-09-02] MEDS: Promethazine HCL 25 MG TABLET PO (15:08)
[2021-09-02] MEDS: PEG 3350/Na Sulf,Bicarb,Cl/KCL 4,000 ML SOLN.RECON 4000 ML PO (15:08)
[2021-09-02] MEDS: bisacodyL 5 MG TABLET.DR 10 MG PO ×2 (15:08→20:35)
--- NOTE | 2021-09-02 15:21 | HO.ADDICT_ITS ---
History of Present Illness Date of Service: 09/02/2021 Chief Complaint: Encephalopathy, PNA Reason for Consult: ?methadone dose increase Requesting physician: Gregorio Joseph Discussed with referring provider: Yes Sources of Information: patient interviewed and chart reviewed HPI Narrative: Patient is a 41-year-old male currently medically admitted for aspiration pneumonia. Patient had been originally admitted to psychiatric unit, then had rapid response event and transferred to medical floor. Consult requested to evaluate for possible methadone increase due to patient ongoing request for pain medication. Patient seen in room 457 with recovery support nurse. He was awake, alert, talkative and engaged in interview. Patient was sitting at the end of the bed, quite circumstantial reporting ongoing pain in his knees and his groin. Reports that he was recently started on methadone (approximately 3 weeks ago) and current doses 25 mg daily. This publications writer inquired about patient's current dose as it is somewhat low for someone with opioid use disorder. Patient reports that his starting dose was actually 15 mg and this was due to the fact that he ?did not have any opioids in my urine dip?. Somewhat challenging to fully understand patient as he was a bit tangential and in some cases overly inclusive. Unclear what his substance use history included, patient reported using oxycodone multiple times although it is unclear if this was prescribed or purchased from the street. Chart review shows that patient was recently psychiatrically admitted in [place] for over a month, and patient reports that from this hospitalization is when he started with [facility]. Patient is requesting an increase in methadone as he reports ?I do not want to relapse, and my dose is too low right now?. This publications writer reviewed with patient's previous reports regarding over-sedation and several medication decreases that have occurred during this hospitalization due to level of sedation. While patient verbalized understanding, he then stated ?if I can not get my methadone increase then a need to leave here with at least a couple weeks of T3'sfor my pain?. This publications writer informed patient that methadone would not be increased until case was discussed with outpatient methadone treatment providers. While patient is methadone dose is low, he is also currently prescribed several other medications that increase risk of respiratory depression. Of note patient did not appear to be experiencing any withdrawal symptoms and was not reporting any. Past Psychiatric History: Recently psychiatrically admitted to [facility] for over a month Review of Systems Constitutional: Reports as per HPI Diagnostics Vital Signs (24Hr): Vital Signs - 24 hr 09/01/21 17:55 09/01/21 20:00 09/01/21 21:21 Temperature 97.8 F Pulse Rate 99 89 80 Respiratory Rate 20 18 14 Blood Pressure 113/72 119/67 Pulse Oximetry 95 98 Oxygen Delivery Method Nasal Cannula Nasal Cannula Oxygen Flow Rate 2 1 09/02/21 00:00 09/02/21 01:18 09/02/21 01:34 Temperature 98.2 F 97.4 F 97.9 F Pulse Rate 99 102 H 96 Respiratory Rate 18 18 16 Blood Pressure 142/88 H 137/89 135/67 Pulse Oximetry 100 Oxygen Delivery Method Room Air Oxygen Flow Rate 09/02/21 04:00 09/02/21 04:17 09/02/21 07:41 Temperature 99.0 F 99.0 F 97.9 F Pulse Rate 94 94 90 Respiratory Rate 17 17 20 Blood Pressure 154/89 H 154/89 H 120/80 Pulse Oximetry 93 91 L Oxygen Delivery Method Nasal Cannula Nasal Cannula Oxygen Flow Rate 2 2 09/02/21 08:12 09/02/21 11:34 09/02/21 15:09 Temperature 98.6 F 97.5 F Pulse Rate 90 100 100 Respiratory Rate 18 20 18 Blood Pressure 149/86 H 126/79 Pulse Oximetry 93 96 Oxygen Delivery Method Room Air Room Air Oxygen Flow Rate BMI result Body Mass Index 43.2 Labs Results: 09/02/21 06:20 09/02/21 06:20 Labs: Laboratory Results - last 48 hr 09/01/21 09/01/21 09/01/21 00:04 04:15 04:15 WBC 9.7 RBC 3.04 L Hgb 6.9 L* Hct 23.9 L MCV 78.6 L MCH 22.7 L MCHC 28.9 L RDW 17.2 H Plt Count 185 MPV 9.9 Absolute Nucleated RBC 0.000 Nucleated RBC % (auto) 0.0 PT INR O2 Saturation 96.0 ABG pH at Pt Temp 7.43 ABG pCO2 at Pt Temp 54 H ABG pO2 at Pt Temp 83 ABG HCO3 36 H ABG Base Excess (Actual) 10.9 Sodium 135 Potassium 4.5 Chloride 96 Carbon Dioxide 31 H Anion Gap 13 BUN 17 H D Creatinine 0.78 Estim Creat Clear Calc 187.6 Estimated GFR > 60 Random Glucose 100 Calcium 8.5 Ferritin Vitamin B12 Folate Stool Occult Blood Blood Type Antibody Screen Crossmatch 09/01/21 09/02/21 09/02/21 18:31 00:04 06:20 WBC RBC Hgb Hct MCV MCH MCHC RDW Plt Count MPV Absolute Nucleated RBC Nucleated RBC % (auto) PT INR O2 Saturation ABG pH at Pt Temp ABG pCO2 at Pt Temp ABG pO2 at Pt Temp ABG HCO3 ABG Base Excess (Actual) Sodium Potassium Chloride Carbon Dioxide Anion Gap BUN Creatinine Estim Creat Clear Calc Estimated GFR Random Glucose Calcium Ferritin 85 Vitamin B12 Folate Stool Occult Blood NEGATIVE Blood Type O Positive Antibody Screen NEGATIVE Crossmatch See Detail 09/02/21 09/02/21 09/02/21 06:20 06:20 06:20 WBC 7.7 RBC 3.72 L D Hgb 8.7 L D Hct 29.6 L D MCV 79.6 L MCH 23.4 L MCHC 29.4 L RDW 16.7 H Plt Count 230 MPV 10.2 Absolute Nucleated RBC 0.000 Nucleated RBC % (auto) 0.0 PT INR O2 Saturation ABG pH at Pt Temp ABG pCO2 at Pt Temp ABG pO2 at Pt Temp ABG HCO3 ABG Base Excess (Actual) Sodium 139 Potassium 4.8 Chloride 99 Carbon Dioxide 34 H Anion Gap 11 L BUN 11 Creatinine 0.74 Estim Creat Clear Calc 197.7 Estimated GFR > 60 Random Glucose 177 H D Calcium 9.0 Ferritin Vitamin B12 496 Folate 14.8 Stool Occult Blood Blood Type Antibody Screen Crossmatch 09/02/21 06:20 WBC RBC Hgb Hct MCV MCH MCHC RDW Plt Count MPV Absolute Nucleated RBC Nucleated RBC % (auto) PT 14.0 H INR 1.2 H O2 Saturation ABG pH at Pt Temp ABG pCO2 at Pt Temp ABG pO2 at Pt Temp ABG HCO3 ABG Base Excess (Actual) Sodium Potassium Chloride Carbon Dioxide Anion Gap BUN Creatinine Estim Creat Clear Calc Estimated GFR Random Glucose Calcium Ferritin Vitamin B12 Folate Stool Occult Blood Blood Type Antibody Screen Crossmatch Mental Status Exam Mental Status Exam Patient Appearance: Appropriate Level of Consciousness: Awake and Alert Patient Behavior: Talkative (Loud) Mood Description: Relaxed Affect Description: Constricted Thought Process: Rumination Judgement: Fair Medications Medications Current Medications Acetaminophen/Codeine Phosphate (Acetaminophen With Codeine # 3 Tablet) 2 tab PO Q6H PRN PRN Reason: Pain, Severe (Pain Scale 7-10) Al Hydroxide/Mg Hydroxide (Magnesium Hydrox/Alum Hydrox 30 Ml Oral.Susp) 30 ml PO Q6H PRN PRN Reason: Heartburn/Nausea Albuterol Sulfate (Albuterol Sulfate 90 Mcg 8 Gm Inhaler) 1 puff INHALE RQ4H PRN PRN Reason: asthma Last Admin: 09/01/21 16:59 Dose: 1 puff Albuterol/Ipratropium (Albuterol/Iprat 2.5/0.5mg 3 Ml Ampul.Neb) 3 ml INHALE RQ4H WHILE AWAKE [facility] Last Admin: 09/02/21 12:38 Dose: Not Given Amitriptyline HCl (Amitriptyline Hcl 50 Mg Tablet) 150 mg PO BEDTIME [facility] Last Admin: 09/01/21 22:25 Dose: 150 mg Amoxicillin/Clavulanate Potassium (Amoxicillin/Potassium Clav 875 Mg Tablet) 875 mg PO Q12H [facility] Last Admin: 09/02/21 11:19 Dose: 875 mg Aripiprazole (Aripiprazole 30 Mg Tablet) 30 mg PO BEDTIME [facility] Last Admin: 09/01/21 22:25 Dose: 30 mg Benzonatate (Benzonatate 100 Mg Capsule) 100 mg PO TID PRN PRN Reason: Cough Bethanechol Chloride (Bethanechol Chloride 25 Mg Tablet) 12.5 mg PO TID [facility] Last Admin: 09/02/21 15:09 Dose: 12.5 mg Bisacodyl (Bisacodyl 5 Mg Tablet.) 10 mg PO ONCE@1900 [facility] Stop: 09/02/21 19:01 Buspirone HCl (Buspirone Hcl 10 Mg Tablet) 30 mg PO BID [facility] Last Admin: 09/02/21 08:08 Dose: 30 mg Clonidine HCl (Clonidine Hcl 0.2 Mg Tablet) 0.2 mg PO BID [facility]; Protocol Last Admin: 09/02/21 08:08 Dose: 0.2 mg Diazepam (Diazepam 5 Mg Tablet) 10 mg PO BID PRN PRN Reason: anxiety/restlessness Last Admin: 09/02/21 00:55 Dose: 10 mg Divalproex Sodium (Divalproex Sodium Er 500 Mg Tab.Er.24h) 2,000 mg PO BEDTIME [facility] Last Admin: 09/01/21 22:26 Dose: 2,000 mg Docusate Sodium (Docusate Sodium 100 Mg Capsule) 100 mg PO DAILY PRN PRN Reason: Constipation Fluticasone Propionate (Fluticasone Propionate Nasal 16 Gm [place]) 2 spray NOSTRIL-B DAILY [facility] Last Admin: 09/02/21 08:10 Dose: 2 spray Fluticasone/Vilanterol (Fluticasone/Vilanterol 100/25 Blst.W.Dev) 1 puff INHALE RDAILY [facility] Last Admin: 09/02/21 08:13 Dose: 1 puff Furosemide (Furosemide 100 Mg/10 Ml Vial) 60 mg IVPUSH BID@0900,1800 [facility]; Protocol Last Admin: 09/02/21 08:08 Dose: 60 mg Methadone HCl (Methadone Hcl 20 Mg/2 Ml Oral.Conc) 25 mg PO DAILY [facility] Last Admin: 09/02/21 08:09 Dose: 25 mg Montelukast Sodium (Montelukast Sodium 10 Mg Tablet) 10 mg PO BEDTIME [facility] Last Admin: 09/01/21 22:26 Dose: 10 mg Nicotine (Nicotine 21 Mg Patch.Td24) 21 mg TRANSDERMA DAILY [facility] Last Admin: 09/02/21 08:07 Dose: 21 mg Pantoprazole Sodium (Pantoprazole Sodium 40 Mg/10 Ml Vial) 40 mg IVPUSH BID [facility] Last Admin: 09/02/21 08:09 Dose: 40 mg Polyethylene Glycol (Polyethylene Glycol 3350 17 Gm Powd.Pack) 17 gm PO DAILY PRN PRN Reason: Constipation Last Admin: 09/01/21 23:20 Dose: 17 gm Pregabalin (Pregabalin 200 Mg Capsule) 200 mg PO BID [facility] Last Admin: 09/02/21 08:08 Dose: 200 mg Promethazine HCl (Promethazine Hcl 25 Mg Tablet) 25 mg PO Q6H PRN PRN Reason: Nausea Last Admin: 09/02/21 15:08 Dose: 25 mg Sodium Chloride (0.9 % Sodium Chloride Flush 3 Ml Syringe) 3 ml IVFLUSH QSHIFT [facility] Last Admin: 09/02/21 15:08 Dose: 3 ml Tamsulosin HCl (Tamsulosin Hcl 0.4 Mg Capsule) 0.4 mg PO DAILY@1730 [facility] Last Admin: 09/01/21 16:44 Dose: 0.4 mg Tizanidine HCl (Tizanidine Hcl 4 Mg Tablet) 4 mg PO TID PRN PRN Reason: Muscle Spasm Last Admin: 09/01/21 16:37 Dose: 4 mg Allergies Allergies Allergy/AdvReac Type Severity Reaction Status Date / Time No Known Allergies Allergy Verified 08/28/21 22:18 Assessment & Plan Assessment & Plan (1) Opioid use disorder: Status: Acute Code(s): F11.90 - Opioid use, unspecified, uncomplicated Assessment and Plan: * No change to current methadone dose. * Message to prescriber at [facility]--awaiting return call * Methadone dose change should not hold up any plans for discharge, as this can be handled out patient I spent __45____ minutes with the patient and/or on the patient floor today, greater than?50% of which was spent counseling/coordinating care. PMFSH Past Medical History Medical History (Updated 09/02/21 @ 15:51 by Prisca Adams CNP) Bipolar 1 disorder Chronic venous stasis Social History Social History Household Members: Unknown / Unable to assess Housing: Unknown / Unable to assess Unable to assess alcohol history related to: Unknown Patient Tobacco Use Status: Current everyday Tobacco user Second Hand Smoke Exposure: No (pt unresponsive) Use of substances other than those prescribed or required for medical reasons: Unknown Currently Displaying Signs/Symptoms of Drug Intoxication Withdrawal: No Advance Directives: No Advance Directives Information Provided: No Do you have thoughts of harming others: None Do you have a plan to hurt others: No Plan Current occupational status: disabled Sexual orientation: Did not discuss.
[2021-09-02] MEDS: Tamsulosin HCL 0.4 MG CAPSULE PO (16:20)
[2021-09-02] MEDS: TiZANidine HCL 4 MG TABLET PO (18:01)
[2021-09-02] MEDS: Divalproex Sodium ER 500 MG TAB.ER.24H 2000 MG PO (20:34)
[2021-09-02] MEDS: ARIPiprazole 30 MG TABLET PO (20:35)
[2021-09-02] MEDS: Amitriptyline HCl 50 MG TABLET 150 MG PO (20:37)
[2021-09-02] MEDS: Montelukast Sodium 10 MG TABLET PO (20:39)
[2021-09-02] MEDS: Albuterol Sulfate 90 MCG 8 GM INHALER 1 PUFF INHALE (21:11)
[2021-09-03] VITALS (12 sets, daily range): BP systolic 114–143; BP diastolic 74–94; PULSE 70–88; RESP 12–18; TEMP 36–36.8; O2SAT 92–100
[2021-09-03] MEDS: Promethazine HCL 25 MG TABLET PO (06:10)
--- NOTE | 2021-09-03 07:00 | CA_ITS ---
Transthoracic Echocardiogram Patient (Last, First, Middle): Lauri Moralez, Gender: Male Date of : 1980 Age: 41 Procedure Date: 09/03/2021 Procedure Type: [place]ansthoracic [place] [facility] [place]: 182.88 cm Weight: 144.24 kg BSA: 2.59 m2 Heart Rate: 74 bpm BP: 140 / 78 mmHg Disability Liaison Officer: SB Referring MD: Junior Dueñas MD Employment Program Representative: Dean Ontiveros MD Symptoms: chf Study Quality: Technically Difficult/BSA/Contrast ECG Rhythm: Sinus Conclusions: - 1. Normal LV systolic function with normal filling pattern 2. Normal cardiac valvular Doppler 3. Normal RV systolic pressure 4. No gross pericardial effusion Findings Procedure Information Contrast agent, definity, is being given per protocol without apparent complications. Left Ventricle Mildly increased left ventricular cavity size. There is normal left ventricular wall thickness. The left ventricular systolic function is normal. The visually estimated ejection fraction is between 55-60%. Spectral Doppler is indicative of a normal filling pattern. Right Ventricle The right ventricle was not well visualized. Atria The left atrium is normal in size. Interatrial shunt cannot be excluded. The right atrium was not well visualized. Aortic Valve The aortic valve structure and function is likely normal. There is no aortic valve stenosis. There is no aortic valve regurgitation. Mitral Valve Likely normal mitral valve structure and function. There is trace mitral valve regurgitation. There is no mitral valve stenosis. Pulmonic Valve The pulmonic valve was not well visualized. Tricuspid Valve The tricuspid valve was not well visualized. There is trace tricuspid valve regurgitation. The right ventricular systolic pressure is normal. The right ventricular systolic pressure is 25 mmHg. Normal right atrial pressure. There is no evidence of pulmonary hypertension. Great Vessels All visible segments of the aorta are normal in size. The pulmonary artery was not well visualized. Venous The inferior vena cava is normal in size and collapses greater than 50% with inspiration. Pericardium/Pleural There is no evidence of pericardial effusion. Prior Study Comparison No prior study available for comparison. Measurements 2D Linear Measurements IVSd: 0.60 0.6-0.9/0.6-1.0 cm LVIDd: 5.87 3.9-5.3/4.2-5.9 cm LVIDd Index: 2.27 2.4-3.2/2.2-3.1 cm/m2 LVIDs: 3.95 2.0-3.6 cm LVPWd: 0.78 0.7-1.1 cm LA Diam: 4.40 2.7-3.8/3.0-4.0 cm LAIDs Index: 1.70 1.5-2.3 cm/m2 LV Mass: 184.82 67-162/88-224 g LV Mass Index: 71.36 43-95/49-115 g/m2 LVOT Diam: 2.50 3.0+(-)1.3 cm 2D Systolic Function EF 4C: 47.20 >55% EF 2C: 57.70 >55% Mitral Valve MV Pk E: 0.88 MV PK A: 0.62 MV Decel Time: 198.00 E/A: 1.40 E'Lateral: 13.20 E'Medial: 7.72 E/E' Med: 11.40 E/E' Lat: 6.70 PHT: 58.00 MVA PHT: 3.79 Decel Moca: 4.45 Aortic Valve AoV Pk Eugenio: 1.28 AoV Mn Eugenio: 0.90 AoV VTI: 0.29 AoV Pk Grad: 7.00 Aov Mn Grad: 4.00 DYLAN Cont.VTI: 3.27 LVOT LVOT Pk Eugenio: 0.88 LVOT Mn Eugenio: 0.62 LVOT VTI: 0.19 LVOT Pk Grad: 3.00 LVOT Mn Grad: 2.00 LVOT Diam: 2.50 LVOT Area: 4.91 Diastolic Function MV Pk E: 0.88 MV Pk A: 0.62 E/A: 1.40 E'Medial: 7.72 E/E' Med: 11.40 E' Laterial: 13.20 E/E' Lat: 6.70 Right Ventricle TAPSE (mm): 20.10 TVS' Eugenio: 16.00 Tricuspid Valve TR Pk Eugenio: 2.48 TR Pk Grad: 25.00 RVSP: 25.00 Great Vessels Aorta Sinus of Valsalva: 3.30 2.0-3.5 cm Ao Asc: 3.10 2.1-3.4 cm Ao Arch: 2.80 Pulmonary Valve PV Pk Eugenio: 0.96 Peak PV Grad: 4.00 Updated in Other Vendor System with Status of Final Dean Ontiveros MD electronically signed on 09/03/2021 3:51:32 PM with status of Final
[2021-09-03] MEDS: busPIRone HCl 10 MG TABLET 30 MG PO ×2 (08:00→20:35)
[2021-09-03] MEDS: Bethanechol Chloride 25 MG TABLET 12.5 MG PO ×3 (08:00→20:36)
[2021-09-03] MEDS: Pregabalin 200 MG CAPSULE PO (08:00)
[2021-09-03] MEDS: TiZANidine HCL 4 MG TABLET PO (08:02)
[2021-09-03] MEDS: Furosemide 100 MG/10 ML VIAL 60 MG IVPUSH (08:02)
[2021-09-03] MEDS: cloNIDine HCL 0.2 MG TABLET PO (08:02)
[2021-09-03] MEDS: Pantoprazole Sodium 40 MG/10 ML VIAL IVPUSH (08:02)
[2021-09-03] MEDS: methADONE HCl 20 MG/2 ML ORAL.CONC 25 MG PO (08:04)
[2021-09-03] MEDS: Fluticasone Propionate Nasal 16 GM SPRAY 2 SPRAY NOSTRIL-B (08:05)
[2021-09-03] MEDS: diazePAM 5 MG TABLET 10 MG PO (08:31)
[2021-09-03 12:08] LABS: Influenza A PCR NEGATIVE (Negative); Influenza B PCR NEGATIVE (Negative); Resp Syncy Virus RNA Qual PCR NEGATIVE (Negative); SARS COV2 PCR INHOUSE NEGATIVE (Negative)
[2021-09-03] MEDS: Albuterol/Iprat 2.5/0.5MG 3 ML AMPUL.NEB INHALE (12:18)
[2021-09-03] MEDS: Amoxicillin/Potassium Clav 875 MG TABLET PO (12:30)
--- NOTE | 2021-09-03 13:51 | MHC.CM.PN ---
per rounds pt not medically ready for dc still being diuressed
[2021-09-03 14:08] LABS: Hematocrit 29.9 % (42.0-52.0); Hemoglobin 8.3 g/dl (14.0-18.0); Mean Corpuscular HGB Conc 27.8 g/dl (31.0-36.0); Mean Corpuscular Hemoglobin 23.1 pg (27.0-33.0); Mean Corpuscular Volume 83.1 fL (80.0-98.0); Mean Platelet Volume 11.5 fL (9.4-12.4); NRBC Pct Auto 0.3 /100WBC (0.0-0.2); PLT CLUMP 1; Red Cell Distribution Width 17.2 % (11.0-16.0)
[2021-09-03 14:10] LABS: White Blood Count 6.3 X10*3/uL (4.8-10.8)
--- NOTE | 2021-09-03 14:15 | PM.EVENT ---
Event Note Date of Service: 09/03/21 Event Note: Addiction follow up This display card writer spoke with provider at [facility] regarding patient request to increase methadone dose. Provider is requesting that dose NOT be increased at this time and remain at 25mg daily. No follow up necessary.
[2021-09-03 14:29] LABS: Platelet Count 187 X10*3/uL (160-400)
--- NOTE | 2021-09-03 15:25 | P.PNIM_ITS ---
Subjective Subjective Date of Service: 09/03/21 Interval History: cc: ams interval history: insomnia Cardiovascular Cardiovascular: Reports no additional cardiovascular complaints Gastrointestinal Gastrointestinal: Reports no additional gastrointestinal complaints Physical Exam Vital Signs: Vital Signs: Last Vital Signs Temp 97.0 F 09/03/21 15:14 Pulse 76 09/03/21 15:14 Resp 18 09/03/21 15:14 BP 134/94 H 09/03/21 15:14 Pulse Ox 94 09/03/21 15:14 O2 Del Method 09/03/21 15:14 O2 Flow Rate 2 09/02/21 07:41 BMI result Body Mass Index 43.2 General: sleeps without stimulation, but on light stimulation becomes AO X 3, no acute distress Resp: CTA bilateral, no accessory muscles used CVS: S1,S2,RRR, 3 + edema GI: soft, non tender, non distended Neuro: motor grossly intact, alert Psych: appropriate affect, appropriate insight Objective Data Active Medications Acetaminophen/Codeine Phosphate (Acetaminophen With Codeine # 3 Tablet) 2 tab PO Q6H PRN PRN Reason: Pain, Severe (Pain Scale 7-10) Last Admin: 09/03/21 06:08 Dose: 2 tab Documented By: RAY Al Hydroxide/Mg Hydroxide (Magnesium Hydrox/Alum Hydrox 30 Ml Oral.Susp) 30 ml PO Q6H PRN PRN Reason: Heartburn/Nausea Albuterol Sulfate (Albuterol Sulfate 90 Mcg 8 Gm Inhaler) 1 puff INHALE RQ4H PRN PRN Reason: asthma Last Admin: 09/02/21 21:11 Dose: 1 puff Documented By: GUILLERMINA Albuterol/Ipratropium (Albuterol/Iprat 2.5/0.5mg 3 Ml Ampul.Neb) 3 ml INHALE RQ4H WHILE AWAKE [facility] Last Admin: 09/03/21 12:18 Dose: 3 ml Documented By: KEYANNA Amitriptyline HCl (Amitriptyline Hcl 50 Mg Tablet) 150 mg PO BEDTIME [facility] Last Admin: 09/02/21 20:37 Dose: 150 mg Documented By: RAY Amoxicillin/Clavulanate Potassium (Amoxicillin/Potassium Clav 875 Mg Tablet) 875 mg PO Q12H [facility] Last Admin: 09/03/21 12:30 Dose: 875 mg Documented By: HO.N-SOFFA Aripiprazole (Aripiprazole 30 Mg Tablet) 30 mg PO BEDTIME [facility] Last Admin: 09/02/21 20:35 Dose: 30 mg Documented By: RAY Baclofen (Baclofen 10 Mg Tablet) 10 mg PO BID [facility] Last Admin: 09/03/21 08:33 Dose: Not Given Documented By: RHODA Non-Admin Reason: refused Benzonatate (Benzonatate 100 Mg Capsule) 100 mg PO TID PRN PRN Reason: Cough Bethanechol Chloride (Bethanechol Chloride 25 Mg Tablet) 12.5 mg PO TID [facility] Last Admin: 09/03/21 15:13 Dose: 12.5 mg Documented By: RHODA Buspirone HCl (Buspirone Hcl 10 Mg Tablet) 30 mg PO BID [facility] Last Admin: 09/03/21 08:00 Dose: 30 mg Documented By: RHODA Clonidine HCl (Clonidine Hcl 0.2 Mg Tablet) 0.2 mg PO BID [facility]; Protocol Last Admin: 09/03/21 08:02 Dose: 0.2 mg Documented By: RHODA Diazepam (Diazepam 5 Mg Tablet) 10 mg PO BID PRN PRN Reason: anxiety/restlessness Last Admin: 09/03/21 08:31 Dose: 10 mg Documented By: RHODA Divalproex Sodium (Divalproex Sodium Er 500 Mg Tab.Er.24h) 2,000 mg PO BEDTIME [facility] Last Admin: 09/02/21 20:34 Dose: 2,000 mg Documented By: RAY Docusate Sodium (Docusate Sodium 100 Mg Capsule) 100 mg PO DAILY PRN PRN Reason: Constipation Fluticasone Propionate (Fluticasone Propionate Nasal 16 Gm [place]) 2 spray NOSTRIL-B DAILY [facility] Last Admin: 09/03/21 08:05 Dose: 2 spray Documented By: RHODA Fluticasone/Vilanterol (Fluticasone/Vilanterol 100/25 Blst.W.Dev) 1 puff INHALE RDAILY [facility] Last Admin: 09/03/21 08:19 Dose: Not Given Documented By: KARISHMA Non-Admin Reason: Patient Refused Furosemide (Furosemide 100 Mg/10 Ml Vial) 60 mg IVPUSH BID@0900,1800 [facility]; Protocol Last Admin: 09/03/21 08:02 Dose: 60 mg Documented By: RHODA Methadone HCl (Methadone Hcl 20 Mg/2 Ml Oral.Conc) 25 mg PO DAILY [facility] Last Admin: 09/03/21 08:04 Dose: 25 mg Documented By: RHODA Montelukast Sodium (Montelukast Sodium 10 Mg Tablet) 10 mg PO BEDTIME [facility] Last Admin: 09/02/21 20:39 Dose: 10 mg Documented By: RAY Nicotine (Nicotine 21 Mg Patch.Td24) 21 mg TRANSDERMA DAILY [facility] Last Admin: 09/03/21 08:33 Dose: Not Given Documented By: RHODA Non-Admin Reason: refused Pantoprazole Sodium (Pantoprazole Sodium 40 Mg/10 Ml Vial) 40 mg IVPUSH BID [facility] Last Admin: 09/03/21 08:02 Dose: 40 mg Documented By: RHODA Polyethylene Glycol (Polyethylene Glycol 3350 17 Gm Powd.Pack) 17 gm PO DAILY PRN PRN Reason: Constipation Last Admin: 09/01/21 23:20 Dose: 17 gm Documented By: JURGENOC Pregabalin (Pregabalin 200 Mg Capsule) 200 mg PO BID [facility] Last Admin: 09/03/21 08:00 Dose: 200 mg Documented By: RHODA Promethazine HCl (Promethazine Hcl 25 Mg Tablet) 25 mg PO Q6H PRN PRN Reason: Nausea Last Admin: 09/03/21 06:10 Dose: 25 mg Documented By: RAY Sodium Chloride (0.9 % Sodium Chloride Flush 3 Ml Syringe) 3 ml IVFLUSH QSHIFT [facility] Last Admin: 09/03/21 15:12 Dose: Not Given Documented By: RHODA Non-Admin Reason: assessed Tamsulosin HCl (Tamsulosin Hcl 0.4 Mg Capsule) 0.4 mg PO DAILY@1730 [facility] Last Admin: 09/02/21 16:20 Dose: 0.4 mg Documented By: JACLYN Tizanidine HCl (Tizanidine Hcl 4 Mg Tablet) 4 mg PO TID PRN PRN Reason: Muscle Spasm Last Admin: 09/03/21 08:02 Dose: 4 mg Documented By: RHODA Labs CBC & Chem 7: 09/03/21 13:39 09/02/21 06:20 Labs: Laboratory Results - last 24 hr 09/03/21 09/03/21 11:00 13:39 MCV 83.1 MCH 23.1 L MCHC 27.8 L RDW 17.2 H Plt Count 187 MPV 11.5 Absolute Nucleated RBC 0.020 H Nucleated RBC % (auto) 0.3 H Influenza Type A (PCR) NEGATIVE Influenza Type B (PCR) NEGATIVE RSV RNA Qual (PCR) NEGATIVE SARS-CoV-2 RNA (RT-PCR) NEGATIVE Assessment and Plan (1) Opioid use disorder: Status: Acute (2) Antisocial personality disorder: Status: Acute (3) Fluid overload: Status: Acute (4) Pneumonia: Status: Acute (5) Toxic metabolic encephalopathy: Status: Acute (6) Chronic venous stasis: Status: Acute (7) Anemia: Status: Acute Plan A 41 years old male with PMH of bipolar disease, PTSD, opioid abuse on methadone, chronic venous status, on multi pharmacy who was admitted to the psych floor for behavioral problem. Toxic metabolic encephalopathy Improved, fluctuate during the day from multi pharmacy Restart home medication gradually and monitor response plan to DC baclofen but will taper, DCed Atarax, DCed Zofran and Reglan Acute respiratory failure with hypoxia Secondary to aspiration pneumonia, acute on chronic diastolic chf - pulmonary edema now on room air covid/flu/rsv negative CXR showing atypical infiltrates Continue IV Lasix 60 mg b.i.d. Continue oral Augmentin day 5 follow up echo Acute iron defeciency Anemia of unclear etiology Could be secondary to GI bleed from NSAIDs usage Hemoglobin improved to 8.7 after 1 unit transfusion, 8.3 today Continue IV pantoprazole EGD today (colon cancelled due to poor prep) Behavioral problem, anxiety Psychiatry input appreciated, continue Abilify, the amitriptyline, buspiron and Depakote Bilateral venous stasis Continue Lasix IV Negative ultrasound Doppler for DVT Morbid obesity Advised to lose weight opiate dependence methadone, keep at 25mg ?DVT PPX SCDs reason for continued hospitalization:ongoing diuresis Quality Stroke Does the patient have a stroke diagnosis?: No VTE Prior VTE?: No VTE Risk Level:: Medical - moderate - high VTE Device Contraindication: Treatment Not Indicated VTE Drug Contraindication: N/A - Med Ordered
--- NOTE | 2021-09-03 16:44 | P.CONAN_ITS ---
[facility] Active Problems Active Problems: All Active Problems (Updated 09/02/21 @ 15:51 by Prisca Adams CNP) Opioid use disorder (Acute) Anemia (Acute) Antisocial personality disorder (Acute) Fluid overload (Acute) Pneumonia (Acute) Acute respiratory failure with hypoxia (Acute) Toxic metabolic encephalopathy (Acute) Adjustment disorder with mixed disturbance of emotions and conduct in remission (Acute) Chronic venous stasis (Acute) Bipolar 1 disorder (Acute) Past Medical History Medical History (Updated 09/02/21 @ 15:51 by Prisca Adams CNP) Bipolar 1 disorder Chronic venous stasis Family History Family history of problems with anesthesia: No Surgical History History of Problems with Anesthesia: No Social History Social History Household Members: Unknown / Unable to assess Housing: Unknown / Unable to assess Unable to assess alcohol history related to: Unknown Patient Tobacco Use Status: Current everyday Tobacco user Second Hand Smoke Exposure: No (pt unresponsive) Use of substances other than those prescribed or required for medical reasons: Unknown Currently Displaying Signs/Symptoms of Drug Intoxication Withdrawal: No Advance Directives: No Advance Directives Information Provided: No Do you have thoughts of harming others: None Do you have a plan to hurt others: No Plan Current occupational status: disabled Sexual orientation: Did not discuss. Meds Allergies Allergy/AdvReac Type Severity Reaction Status Date / Time No Known Allergies Allergy Verified 08/28/21 22:18 Active Medications: Current Medications Acetaminophen/Codeine Phosphate (Acetaminophen With Codeine # 3 Tablet) 2 tab PO Q6H PRN PRN Reason: Pain, Severe (Pain Scale 7-10) Last Admin: 09/03/21 06:08 Dose: 2 tab Al Hydroxide/Mg Hydroxide (Magnesium Hydrox/Alum Hydrox 30 Ml Oral.Susp) 30 ml PO Q6H PRN PRN Reason: Heartburn/Nausea Albuterol Sulfate (Albuterol Sulfate 90 Mcg 8 Gm Inhaler) 1 puff INHALE RQ4H PRN PRN Reason: asthma Last Admin: 09/02/21 21:11 Dose: 1 puff Albuterol/Ipratropium (Albuterol/Iprat 2.5/0.5mg 3 Ml Ampul.Neb) 3 ml INHALE RQ4H WHILE AWAKE [facility] Last Admin: 09/03/21 16:08 Dose: Not Given Amitriptyline HCl (Amitriptyline Hcl 50 Mg Tablet) 150 mg PO BEDTIME [facility] Last Admin: 09/02/21 20:37 Dose: 150 mg Amoxicillin/Clavulanate Potassium (Amoxicillin/Potassium Clav 875 Mg Tablet) 875 mg PO Q12H [facility] Last Admin: 09/03/21 12:30 Dose: 875 mg Aripiprazole (Aripiprazole 30 Mg Tablet) 30 mg PO BEDTIME [facility] Last Admin: 09/02/21 20:35 Dose: 30 mg Baclofen (Baclofen 10 Mg Tablet) 10 mg PO BID [facility] Last Admin: 09/03/21 08:33 Dose: Not Given Benzonatate (Benzonatate 100 Mg Capsule) 100 mg PO TID PRN PRN Reason: Cough Bethanechol Chloride (Bethanechol Chloride 25 Mg Tablet) 12.5 mg PO TID [facility] Last Admin: 09/03/21 15:13 Dose: 12.5 mg Buspirone HCl (Buspirone Hcl 10 Mg Tablet) 30 mg PO BID [facility] Last Admin: 09/03/21 08:00 Dose: 30 mg Clonidine HCl (Clonidine Hcl 0.2 Mg Tablet) 0.2 mg PO BID [facility]; Protocol Last Admin: 09/03/21 08:02 Dose: 0.2 mg Diazepam (Diazepam 5 Mg Tablet) 10 mg PO BID PRN PRN Reason: anxiety/restlessness Last Admin: 09/03/21 08:31 Dose: 10 mg Divalproex Sodium (Divalproex Sodium Er 500 Mg Tab.Er.24h) 2,000 mg PO BEDTIME [facility] Last Admin: 09/02/21 20:34 Dose: 2,000 mg Docusate Sodium (Docusate Sodium 100 Mg Capsule) 100 mg PO DAILY PRN PRN Reason: Constipation Fluticasone Propionate (Fluticasone Propionate Nasal 16 Gm [place]) 2 spray NOST RIL-B DAILY [facility] Last Admin: 09/03/21 08:05 Dose: 2 spray Fluticasone/Vilanterol (Fluticasone/Vilanterol 100/25 Blst.W.Dev) 1 puff INHALE RDAILY [facility] Last Admin: 09/03/21 08:19 Dose: Not Given Furosemide (Furosemide 100 Mg/10 Ml Vial) 60 mg IVPUSH BID@0900,1800 [facility]; Protocol Last Admin: 09/03/21 08:02 Dose: 60 mg Methadone HCl (Methadone Hcl 20 Mg/2 Ml Oral.Conc) 25 mg PO DAILY [facility] Last Admin: 09/03/21 08:04 Dose: 25 mg Montelukast Sodium (Montelukast Sodium 10 Mg Tablet) 10 mg PO BEDTIME [facility] Last Admin: 09/02/21 20:39 Dose: 10 mg Nicotine (Nicotine 21 Mg Patch.Td24) 21 mg TRANSDERMA DAILY [facility] Last Admin: 09/03/21 08:33 Dose: Not Given Pantoprazole Sodium (Pantoprazole Sodium 40 Mg/10 Ml Vial) 40 mg IVPUSH BID [facility] Last Admin: 09/03/21 08:02 Dose: 40 mg Polyethylene Glycol (Polyethylene Glycol 3350 17 Gm Powd.Pack) 17 gm PO DAILY PRN PRN Reason: Constipation Last Admin: 09/01/21 23:20 Dose: 17 gm Pregabalin (Pregabalin 200 Mg Capsule) 200 mg PO BID [facility] Last Admin: 09/03/21 08:00 Dose: 200 mg Promethazine HCl (Promethazine Hcl 25 Mg Tablet) 25 mg PO Q6H PRN PRN Reason: Nausea Last Admin: 09/03/21 06:10 Dose: 25 mg Sodium Chloride (0.9 % Sodium Chloride Flush 3 Ml Syringe) 3 ml IVFLUSH QSHIFT [facility] Last Admin: 09/03/21 15:12 Dose: Not Given Tamsulosin HCl (Tamsulosin Hcl 0.4 Mg Capsule) 0.4 mg PO DAILY@1730 [facility] Last Admin: 09/02/21 16:20 Dose: 0.4 mg Tizanidine HCl (Tizanidine Hcl 4 Mg Tablet) 4 mg PO TID PRN PRN Reason: Muscle Spasm Last Admin: 09/03/21 08:02 Dose: 4 mg Home Medications Medication Instructions Recorded Confirmed Last Taken Type aripiprazole 30 mg tablet (Abilify) 30 mg PO BEDTIME 08/29/21 08/30/21 Unknown History buspirone 30 mg tablet 30 mg PO BID 08/29/21 08/30/21 Unknown History diazepam 10 mg tablet (Valium) 10 mg PO TID PRN Anxiety 08/29/21 08/30/21 Unknown History divalproex 500 mg tablet,extended 2,500 mg PO BEDTIME 08/29/21 08/30/21 Unknown History release 24 hr (Depakote ER) hydroxyzine HCl 50 mg tablet 50 mg PO Q6H PRN Anxiety 08/29/21 08/30/21 Unknown History ibuprofen 800 mg tablet 1 tab PO TID PRN Pain 08/29/21 08/30/21 Unknown History metoclopramide HCl 10 mg tablet 10 mg PO TID 08/29/21 08/30/21 Unknown History (Reglan) montelukast 10 mg tablet 10 mg PO DAILY 08/29/21 08/30/21 Unknown History (Singulair) ondansetron 4 mg disintegrating 4 mg PO BID PRN Nausea 08/29/21 08/30/21 Unknown History tablet pregabalin 200 mg capsule (Lyrica) 200 mg PO BID 08/29/21 08/30/21 Unknown History Zinc Oxide (Triple Paste) [Triple 1 appl topical 8XD PRN Rash 08/30/21 08/30/21 Unknown History Paste] Exam Exam Date and Time: September 03, 2021 1644 Height,Weight and Vital Signs: Height 6 ft Weight 144.4 kg Last Vital Signs Temp 97.0 F 09/03/21 15:14 Pulse 76 09/03/21 15:14 Resp 18 09/03/21 15:14 BP 134/94 H 09/03/21 15:14 Pulse Ox 94 09/03/21 15:14 O2 Del Method 09/03/21 15:14 O2 Flow Rate 2 09/02/21 07:41 Pertinent Lab Results Pertinent Lab Results: Laboratory Tests 08/31/21 08/31/21 08/31/21 06:47 06:47 14:53 WBC 10.5 10.3 RBC 3.29 L 3.19 L Hgb 7.5 L 7.2 L Hct 26.0 L 25.3 L MCV 79.0 L 79.3 L MCH 22.8 L 22.6 L MCHC 28.8 L 28.5 L RDW 17.4 H 17.6 H Plt Count 168 179 MPV 10.0 10.0 Immature Gran % (Auto) 0.3 Neut % (Auto) 75.2 H Lymph % (Auto) 11.1 L [place] % (Auto) 10.2 Eos % (Auto) 2.7 Baso % (Auto) 0.5 Lymph # (Auto) 1.2 [place] # (Auto) 1.1 Eos # (Auto) 0.3 Baso # (Auto) 0.1 Abs Immat Gran (auto) 0.03 Absolute Neuts (auto) 7.9 Absolute Nucleated RBC 0.000 0.000 Nucleated RBC % (auto) 0.0 0.0 PT INR O2 Saturation ABG pH at Pt Temp ABG pCO2 at Pt Temp ABG pO2 at Pt Temp ABG HCO3 ABG Base Excess (Actual) Sodium 138 Potassium 3.9 Chloride 99 Carbon Dioxide 31 H Anion Gap 12 BUN 11 Creatinine 0.72 Estim Creat Clear Calc 203.2 Estimated GFR > 60 Random Glucose 125 H Calcium 8.5 Ferritin Vitamin B12 Folate Stool Occult Blood Influenza Type A (PCR) Influenza Type B (PCR) RSV RNA Qual (PCR) SARS-CoV-2 RNA (RT-PCR) Blood Type Antibody Screen Crossmatch 09/01/21 09/01/21 09/01/21 00:04 04:15 04:15 WBC 9.7 RBC 3.04 L Hgb 6.9 L* Hct 23.9 L MCV 78.6 L MCH 22.7 L MCHC 28.9 L RDW 17.2 H Plt Count 185 MPV 9.9 Immature Gran % (Auto) Neut % (Auto) Lymph % (Auto) [place] % (Auto) Eos % (Auto) Baso % (Auto) Lymph # (Auto) [place] # (Auto) Eos # (Auto) Baso # (Auto) Abs Immat Gran (auto) Absolute Neuts (auto) Absolute Nucleated RBC 0.000 Nucleated RBC % (auto) 0.0 PT INR O2 Saturation 96.0 ABG pH at Pt Temp 7.43 ABG pCO2 at Pt Temp 54 H ABG pO2 at Pt Temp 83 ABG HCO3 36 H ABG Base Excess (Actual) 10.9 Sodium 135 Potassium 4.5 Chloride 96 Carbon Dioxide 31 H Anion Gap 13 BUN 17 H D Creatinine 0.78 Estim Creat Clear Calc 187.6 Estimated GFR > 60 Random Glucose 100 Calcium 8.5 Ferritin Vitamin B12 Folate Stool Occult Blood Influenza Type A (PCR) Influenza Type B (PCR) RSV RNA Qual (PCR) SARS-CoV-2 RNA (RT-PCR) Blood Type Antibody Screen Crossmatch 09/01/21 09/02/21 09/02/21 18:31 00:04 06:20 WBC RBC Hgb Hct MCV MCH MCHC RDW Plt Count MPV Immature Gran % (Auto) Neut % (Auto) Lymph % (Auto) [place] % (Auto) Eos % (Auto) Baso % (Auto) Lymph # (Auto) [place] # (Auto) Eos # (Auto) Baso # (Auto) Abs Immat Gran (auto) Absolute Neuts (auto) Absolute Nucleated RBC Nucleated RBC % (auto) PT INR O2 Saturation ABG pH at Pt Temp ABG pCO2 at Pt Temp ABG pO2 at Pt Temp ABG HCO3 ABG Base Excess (Actual) Sodium Potassium Chloride Carbon Dioxide Anion Gap BUN Creatinine Estim Creat Clear Calc Estimated GFR Random Glucose Calcium Ferritin 85 Vitamin B12 Folate Stool Occult Blood NEGATIVE Influenza Type A (PCR) Influenza Type B (PCR) RSV RNA Qual (PCR) SARS-CoV-2 RNA (RT-PCR) Blood Type O Positive Antibody Screen NEGATIVE Crossmatch See Detail 09/02/21 09/02/21 09/02/21 06:20 06:20 06:20 WBC 7.7 RBC 3.72 L D Hgb 8.7 L D Hct 29.6 L D MCV 79.6 L MCH 23.4 L MCHC 29.4 L RDW 16.7 H Plt Count 230 MPV 10.2 Immature Gran % (Auto) Neut % (Auto) Lymph % (Auto) [place] % (Auto) Eos % (Auto) Baso % (Auto) Lymph # (Auto) [place] # (Auto) Eos # (Auto) Baso # (Auto) Abs Immat Gran (auto) Absolute Neuts (auto) Absolute Nucleated RBC 0.000 Nucleated RBC % (auto) 0.0 PT INR O2 Saturation ABG pH at Pt Temp ABG pCO2 at Pt Temp ABG pO2 at Pt Temp ABG HCO3 ABG Base Excess (Actual) Sodium 139 Potassium 4.8 Chloride 99 Carbon Dioxide 34 H Anion Gap 11 L BUN 11 Creatinine 0.74 Estim Creat Clear Calc 197.7 Estimated GFR > 60 Random Glucose 177 H D Calcium 9.0 Ferritin Vitamin B12 496 Folate 14.8 Stool Occult Blood Influenza Type A (PCR) Influenza Type B (PCR) RSV RNA Qual (PCR) SARS-CoV-2 RNA (RT-PCR) Blood Type Antibody Screen Crossmatch 09/02/21 09/03/21 09/03/21 06:20 11:00 13:39 WBC 6.3 RBC 3.60 L Hgb 8.3 L Hct 29.9 L MCV 83.1 MCH 23.1 L MCHC 27.8 L RDW 17.2 H Plt Count 187 MPV 11.5 Immature Gran % (Auto) Neut % (Auto) Lymph % (Auto) [place] % (Auto) Eos % (Auto) Baso % (Auto) Lymph # (Auto) [place] # (Auto) Eos # (Auto) Baso # (Auto) Abs Immat Gran (auto) Absolute Neuts (auto) Absolute Nucleated RBC 0.020 H Nucleated RBC % (auto) 0.3 H PT 14.0 H INR 1.2 H O2 Saturation ABG pH at Pt Temp ABG pCO2 at Pt Temp ABG pO2 at Pt Temp ABG HCO3 ABG Base Excess (Actual) Sodium Potassium Chloride Carbon Dioxide Anion Gap BUN Creatinine Estim Creat Clear Calc Estimated GFR Random Glucose Calcium Ferritin Vitamin B12 Folate Stool Occult Blood Influenza Type A (PCR) NEGATIVE Influenza Type B (PCR) NEGATIVE RSV RNA Qual (PCR) NEGATIVE SARS-CoV-2 RNA (RT-PCR) NEGATIVE Blood Type Antibody Screen Crossmatch Airway Mallampati Class: III TM Dist: >3cm Neck ROM: Full Assessment and Plan Assessment Anesthesia Assessment: Anesthesia Plan Discussed and Chart Reviewed Final Anesthetic Review Family History of Problems with Anesthesia: No History of Problems with Anesthesia: No NPO: Yes ASA Class: III Final Preanesthetic Review: No Changes in Pt Med Stat, Meds/Allgs Chart Reviewed, Consent Obtained/Reviewed and Anes Risks/Benef Reviewed Patient Risk: Intermediate Procedure Risk: Low Anesthetic Plan Anesthetic Plan: MAC: Disposition: Standard PACU
--- NOTE | 2021-09-03 18:37 | PC.NURSE ---
Pt agitated, yelling in hallway and yelling at staff asking for coffee and medications. pt was informed he is still NPO for his procedure today. Pt requested prn meds, refused baclofen. Meds administered as ordered. from OR assessed pt this AM stating one procedure will not be done today d/t pt's drowsiness. Covering Md informed, md assessed pt at bedside. Pt did wake up and begin to yell at staff, was able to be redirected and calmed down. Pt's mother spoke with MD in regards to pt's meds and procedures. report was given to OR and Or was also informed of pt's last BM and progress with [facility]. pt refused tele this AM, was later placed on it. pt able to ambulate safely and repo self. pt removed dressing on LLE and refused to have one placed, continued to refuse post education. sitter mainlined, sent to OR with pt
[2021-09-03] MEDS: cloNIDine HCL 0.1 MG TABLET PO (20:35)
[2021-09-03] MEDS: Divalproex Sodium ER 500 MG TAB.ER.24H 2000 MG PO (20:35)
[2021-09-03] MEDS: Montelukast Sodium 10 MG TABLET PO (20:36)
[2021-09-03] MEDS: ARIPiprazole 30 MG TABLET PO (20:36)
[2021-09-03] MEDS: Amitriptyline HCl 50 MG TABLET 150 MG PO (20:36)
[2021-09-03] MEDS: Baclofen 10 MG TABLET PO (20:37)
[2021-09-03] MEDS: Pregabalin 150 MG CAPSULE PO (20:37)
--- NOTE | 2021-09-03 23:30 | OP_ITS ---
SURGEON: Leonel Alfaro MD INDICATIONS: Anemia, iron deficiency. PREOPERATIVE DIAGNOSIS: POSTOPERATIVE DIAGNOSIS: PROCEDURE PERFORMED: Upper endoscopy with biopsy, flexible sigmoidoscopy to 20 cm. ESTIMATED BLOOD LOSS: COMPLICATIONS: ANESTHESIA: Medications, monitored anesthesia care. ASSISTANTS: SPECIMENS: DESCRIPTION OF PROCEDURE: History and physical performed. The risks and benefits of the procedure were explained to the patient. Informed consent was obtained. The patient was placed in the left lateral decubitus position. The Olympus video gastroscope was introduced into the esophagus, stomach, and duodenum. Examination was performed. The scope was removed. He was repositioned for colonoscopy. Digital rectal exam was performed and was found to be normal. The Olympus pediatric video colonoscope was introduced into the rectum. The scope was advanced to 20 cm at which point formed stool was encountered, and the procedure was ended. He tolerated both procedures well and was returned to the recovery area in stable condition. The colonoscope was removed from the patient. FINDINGS: Upper endoscopy: 1. Esophagus: The esophagus was normal. There was no esophagitis. 2. Stomach: The stomach showed no evidence of masses, ulcers, or polyps. There was gastritis present mainly in the body. No bleeding was identified. No ulcer was seen. Antral biopsies were obtained to rule out H pylori. The EG junction was slightly irregular, and this was biopsied as well. 3. Duodenum: The bulb and second portion were normal. Random duodenal biopsies were obtained to evaluate the duodenal mucosa. 4. Flexible sigmoidoscopy: In the rectosigmoid at about 20 cm, formed stool was encountered, and it was elected to discontinue the procedure. The mucosa appeared normal. No retroflexed view was obtained. IMPRESSION: 1. Gastritis. 2. Incomplete lower gastrointestinal tract examination. RECOMMENDATION: 1. Follow up the biopsy results. 2. Continue proton pump inhibitor. This can be switched to omeprazole 40 mg daily. 3. He should undergo outpatient elective colonoscopy at some point. MD DEUCE Lang/CHRIS / [id number]
[2021-09-04 03:27] VITALS: PULSE 83; RESP 16
[2021-09-04] MEDS: Omeprazole 40 MG CAPSULE.DR PO (03:57)
[2021-09-04] MEDS: Amoxicillin/Potassium Clav 875 MG TABLET PO (03:57)
[2021-09-04] MEDS: 0.9 % Sodium Chloride Flush 3 ML SYRINGE IVFLUSH (03:57)
[2021-09-04] MEDS: Promethazine HCL 25 MG TABLET PO (04:05)
[2021-09-04] MEDS: diazePAM 5 MG TABLET 10 MG PO (04:11)
[2021-09-04 07:43] LABS: Hematocrit 31.3 % (42.0-52.0); Mean Corpuscular HGB Conc 28.8 g/dl (31.0-36.0); Mean Corpuscular Hemoglobin 22.9 pg (27.0-33.0); Mean Corpuscular Volume 79.6 fL (80.0-98.0); Mean Platelet Volume 10.1 fL (9.4-12.4); Platelet Count 251 X10*3/uL (160-400); Red Blood Count 3.93 X10*6/uL (4.60-5.80); White Blood Count 6.3 X10*3/uL (4.8-10.8)
[2021-09-04 08:04] LABS: Anion Gap 14 (12-20); Blood Urea Nitrogen 12 mg/dL (9-16); Calcium 8.5 mg/dL (8.4-10.2); Carbon Dioxide 31 mmol/L (22-29); Chloride 100 mmol/L (96-108); Estimated Glomerular Filt Rate > 60; Glucose Fasting 142 mg/dL (60-99); Potassium 4.4 mmol/L (3.3-5.1); Sodium 141 mmol/L (135-145)
[2021-09-04 09:29] VITALS: BP 119/76; PULSE 86; RESP 20; TEMP 36.2; O2SAT 95
--- NOTE | 2021-09-04 09:57 | HO.POSTANES ---
Post Anesthesia Evaluation Post Anesthesia Evaluation Vital Signs: Vital Signs Temp Pulse Resp BP Pulse Ox O2 Del Method 09/04/21 09:29 97.2 F 86 20 119/76 95 Room Air 09/04/21 03:27 83 16 Anesthesia: Monitored Mental Status: Awake Pain Control: Satisfactory Nausea/Vomiting: None Hydration: Adequate Anesthesia-Related Issues: No Anes. Related Issues
[2021-09-04] MEDS: Baclofen 10 MG TABLET PO (10:07)
[2021-09-04] MEDS: methADONE HCl 20 MG/2 ML ORAL.CONC 25 MG PO (10:07)
[2021-09-04] MEDS: busPIRone HCl 10 MG TABLET 30 MG PO (10:07)
[2021-09-04] MEDS: cloNIDine HCL 0.1 MG TABLET PO (10:07)
[2021-09-04] MEDS: Bethanechol Chloride 25 MG TABLET 12.5 MG PO (10:07)
[2021-09-04] MEDS: Pregabalin 150 MG CAPSULE PO (10:07)
[2021-09-04 10:28] LABS: Amphetamine Screen Urine Not Detected (Not Detect); Barbiturates, Urine Not Detected (Not Detect); Benzodiazepines Screen Urine POSITIVE (Not Detect); Cannabinoid Screen Urine Not Detected (Not Detect); Cocaine Screen Urine Not Detected (Not Detect); Fentanyl, urine POSITIVE (Not Detect); Opiate Screen Urine POSITIVE (Not Detect); Phencyclidine Screen Urine Not Detected (Not Detect)
[2021-09-04] MEDS: TiZANidine HCL 4 MG TABLET PO (10:35)
[2021-09-04] MEDS: Furosemide 20 MG TABLET 60 MG PO (10:35)
--- NOTE | 2021-09-04 11:31 | P.DS_ITS ---
DS: Providers Provider Date of Service: 09/04/21 Date of admission: 08/30/21 19:11 Primary care physician: Bal Valera MD Consults: 08/31/21 07:47 Consult to Psychiatry Routine Consulting Provider: Psych Covering Reason for consultation: medication advice. 09/01/21 08:12 Consult to Gastroenterology Routine Consulting Provider: Mansoor Moody Reason for consultation: worsening anemia, Hx NSAIDs abuse, no overt bleeding 09/02/21 13:55 Addiction Medicine Routine Consulting Provider: Prisca Adams Reason for consultation: evaluate the need of Methadone for pain control. DS: Diagnosis Discharge Diagnosis (1) Opioid use disorder: Status: Acute (2) Antisocial personality disorder: Status: Acute (3) Fluid overload: Status: Acute (4) Pneumonia: Status: Acute (5) Toxic metabolic encephalopathy: Status: Acute (6) Chronic venous stasis: Status: Acute (7) Anemia: Status: Acute DS: Summary Hospital Course Hospital Course: from initial hpi: Chief Complaint: Altered mentation, hypoxia A 41 years old male with PMH of bipolar disease, PTSD, opioid abuse on methadone, chronic venous status, on [facility] pharmacy who was admitted to the [facility] floor for behavioral problem. The patient was upset at home and became angry and destroyed the house with a golf club that he was transferred to the hospital.? This morning he was noted to be more altered.? He took his medications but as the day progresses he became more and more altered with evidence of drop in his oxygen level.? A rapid response was called and he was evaluated by me at that p oint.? ABG showed acceptable pH and CO2 with no evidence of retention.? He received Narcan and flumazenil with no significant improvement in his mentation.? His oxygen level improved to 90s with 3 L of oxygen. He will be transferred to the medical floor pending EKG, CT head, CXR, blood work. hospital course: Patient was admitted for toxic metabolic encephalopathy complicated by acute respiratory failure with hypoxia secondary to aspiration pneumonia and acute on chronic diastolic CHF. Patient was treated with Augmentin and IV Lasix. His Neuro suppressive medications were decreased. Mental status did significantly improve. However, without stimulation patient quickly falls asleep, with minimal stimulation he is alert and able to walk around. He also demonstrated full understanding of his medical condition. Echo was unremarkable. Patient was also noted to have acute iron deficiency anemia. He underwent EGD which did not show clear course. Plan was for colonoscopy but patient had a poor prep. He will continue oral PPI and recommended to discontinue NSAIDs. He should follow up with Gastroenterology for colonoscopy. He will also continue on p.o. iron. For his morbid obesity weight loss is recommended. For his opiate dependence he was kept on methadone. Patient continues to require IV diuresis and ongoing workup for his encephalopathy which may be medication related - polypharmacy versus withdrawal, alternatively, symptoms could be related to undiagnosed obstructive sleep apnea complicated with daytime somnolence. However, patient decided to leave against medical advice. He demonstrated full understanding including risks of leaving against medical advice including . Time Spent with Patient Time attestation: Total time spent providing and/or coordinating discharge services: Discharge coordination time: Greater than 30 minutes Quality: Safe Use of Opioids Does Pt have an Active Cancer Diagnosis on the Problem List?: No Quality: Stroke Does the patient have a stroke diagnosis?: No Physical Exam Vital Signs: Vital Signs: Last Vital Signs Temp 97.2 F 09/04/21 09:29 Pulse 86 09/04/21 09:29 Resp 20 09/04/21 09:29 BP 119/76 09/04/21 09:29 Pulse Ox 95 09/04/21 09:29 O2 Del Method 09/04/21 09:29 O2 Flow Rate 4 09/03/21 19:15 BMI result Body Mass Index 43.2 General: AO X 3, no acute distress Resp: CTA bilateral, no accessory muscles used CVS: S1,S2,RRR GI: soft, non tender, non distended Neuro: motor grossly intact, alert Psych: appropriate affect, appropriate insight 3+ edema DS: Data Data Completed and Pending Pending studies at discharge: Pending at discharge 09/03/21 17:52 Surgical [PTH] Routine Labs on day of discharge: Laboratory Results - last 24 hr 09/03/21 09/03/21 09/04/21 11:00 13:39 07:19 WBC 6.3 6.3 RBC 3.60 L 3.93 L Hgb 8.3 L 9.0 L Hct 29.9 L 31.3 L MCV 83.1 79.6 L MCH 23.1 L 22.9 L MCHC 27.8 L 28.8 L RDW 17.2 H 17.0 H Plt Count 187 251 D MPV 11.5 10.1 Absolute Nucleated RBC 0.020 H 0.000 Nucleated RBC % (auto) 0.3 H 0.0 Sodium Potassium Chloride Carbon Dioxide Anion Gap BUN Creatinine Estim Creat Clear Calc Estimated GFR Fasting Glucose Calcium Urine Opiates Screen Urine Fentanyl Screen Ur Barbiturates Screen Ur Phencyclidine Scrn Ur Amphetamines Screen U Benzodiazepines Scrn Urine Cocaine Screen U Marijuana (THC) Screen Influenza Type A (PCR) NEGATIVE Influenza Type B (PCR) NEGATIVE RSV RNA Qual (PCR) NEGATIVE SARS-CoV-2 RNA (RT-PCR) NEGATIVE 09/04/21 09/04/21 07:19 09:51 WBC RBC Hgb Hct MCV MCH MCHC RDW Plt Count MPV Absolute Nucleated RBC Nucleated RBC % (auto) Sodium 141 Potassium 4.4 Chloride 100 Carbon Dioxide 31 H Anion Gap 14 BUN 12 Creatinine 0.69 Estim Creat Clear Calc 212.0 Estimated GFR > 60 Fasting Glucose 142 H Calcium 8.5 Urine Opiates Screen POSITIVE H Urine Fentanyl Screen POSITIVE H Ur Barbiturates Screen Not Detected Ur Phencyclidine Scrn Not Detected Ur Amphetamines Screen Not Detected U Benzodiazepines Scrn POSITIVE H Urine Cocaine Screen Not Detected U Marijuana (THC) Screen Not Detected Influenza Type A (PCR) Influenza Type B (PCR) RSV RNA Qual (PCR) SARS-CoV-2 RNA (RT-PCR) Discharge Plan Discharge Patient Disposition: Left Against Medical Advice Discharge Diagnosis: aspiratoin pneumonia, encephaloapthy Referrals: Physician,Unknown J [Physician] - 1 Week Discharge Medications: New clonidine HCl 0.1 mg Tablet 0.1 mg PO BID Qty: 0 0RF Protocol: Hold for SBP< HOLD for SBP < : 90 Continued Zinc Oxide (Triple Paste) [Triple Paste] 1 appl topical 8XD PRN (Reason: Rash) montelukast [Singulair] 10 mg Tablet 10 mg PO DAILY buspirone 30 mg Tablet 30 mg PO BID divalproex [Depakote ER] 500 mg Tablet Extended Release 24 Hr 2,500 mg PO BEDTIME ondansetron 4 mg Tablet,Disintegrating 4 mg PO BID PRN (Reason: Nausea) aripiprazole [Abilify] 30 mg Tablet 30 mg PO BEDTIME pregabalin [Lyrica] 200 mg Capsule 200 mg PO BID bethanechol chloride 25 mg Tablet 12.5 mg PO TID Qty: 0 0RF promethazine 25 mg Tablet 25 mg PO Q6H PRN (Reason: Nausea) Qty: 0 0RF albuterol sulfate [Ventolin HFA] 90 mcg/actuation Hfa Aerosol Inhaler 1 puff inhalation RQ4H PRN (Reason: asthma) Qty: 0 0RF loratadine 10 mg Tablet 10 mg PO DAILY Qty: 0 0RF Atrovent HFA 17 mcg/actuation Hfa Aerosol Inhaler 1 puff inhalation RQID Qty: 0 0RF ipratropium-albuterol 0.5 mg-3 mg(2.5 mg base)/3 mL Solution For Nebulization 3 ml inhalation RQ4H WHILE AWAKE Qty: 0 0RF amitriptyline 50 mg Tablet 150 mg PO BEDTIME Qty: 0 0RF tamsulosin 0.4 mg Capsule 0.4 mg PO DAILY Qty: 0 0RF ferrous sulfate 324 mg (65 mg iron) Tablet,Delayed Release (Dr/Ec) 324 mg PO BIDWM Qty: 0 0RF magnesium hydroxide [Milk of Magnesia] 400 mg/5 mL Suspension 30 ml PO DAILY PRN (Reason: Constipation) Qty: 0 0RF calcium carbonate [Oyster Shell Calcium 500] 500 mg calcium (1,250 mg) Tablet 500 mg PO BID Qty: 0 0RF docusate sodium 100 mg Capsule 100 mg PO DAILY Qty: 0 0RF omeprazole 20 mg Capsule,Delayed Release(Dr/Ec) 20 mg PO BID@0630,1630 Qty: 0 0RF furosemide 20 mg Tablet 60 mg PO BID@0900,1800 Qty: 0 0RF Protocol: Hold for SBP< HOLD for SBP < : 90 methadone [Methadose] 10 mg/mL Concentrate 25 mg PO DAILY Qty: 0 0RF Rx Instructions: Partial Fill upon patient request. fluticasone propionate 50 mcg/actuation [place],Suspension 2 spray intranasal DAILY Qty: 0 0RF MAG-AL 200-200 mg/5 mL Suspension 30 ml PO Q6H PRN (Reason: Heartburn/Nausea) Qty: 0 0RF fluticasone furoate-vilanterol [Breo Ellipta] 100-25 mcg/dose Blister With Device 1 ea inhalation RDAILY Qty: 0 0RF ascorbic acid (vitamin C) 250 mg Tablet 250 mg PO BID@0800,1700 Qty: 0 0RF Changed baclofen 20 mg Tablet 10 mg PO BID 3 Days Qty: 0 0RF diazepam [Valium] 10 mg Tablet 5 mg PO TID PRN (Reason: Anxiety) Qty: 10 0RF Discontinued hydroxyzine HCl 50 mg Tablet 50 mg PO Q6H PRN (Reason: Anxiety) ibuprofen 800 mg tablet 1 tab PO TID PRN (Reason: Pain) metoclopramide HCl [Reglan] 10 mg Tablet 10 mg PO TID doxycycline hyclate 100 mg Tablet 100 mg PO Q12H Qty: 0 0RF clonidine HCl 0.1 mg Tablet 0.3 mg PO BID Qty: 0 0RF Protocol: Hold for SBP< HOLD for SBP < : 90 acetaminophen 325 mg Tablet 975 mg PO TID PRN (Reason: Headache/Pain Mild Scale (1-3)) Qty: 0 0RF Discharge Orders: Discharge Order (Routine); Ordered 09/04/21 Ordered By: Junior Dueñas Diet: advance to usual diet Activity on Discharge: As tolerated Stand Alone Forms: Patient Portal Discharge page Care Plan Goals: manage ams, edema Health Concerns: edema, ams Plan of Treatment: change meds as prescribed, follow up with pcp, pulmonary - rule out AKHIL Assessment: see above
--- NOTE | 2021-09-04 11:36 | MHC.CM.PN ---
CM INFORMED PT LEAVING AMA TAXI VOUCHER TO HIS HOME ADDRESS PROVIDED
--- NOTE | 2021-09-04 11:43 | PC.NURSE ---
Surgeon spoke with pt this AM. Afterwards pt began to yell and argue stating he wants to leave. Security was called due to pt yelling and swearing in hallway. informed and spoke with pt at bedside. spoke with psych, pt is cleared to leave AMA. Pt signed AMA paperwork and case management scheduled taxi ride for pt to go home. pt refused tele and safety precautions. sitters in place. IVs were removed, no tele was on pt, all belongings with pt.
== END 2021-09-04 11:42 | disposition left against medical advice (07) | DRG 177 ==
PROVIDERS: Anesthesiology; Internal Medicine; Internal Medicine Gastroenterology; Admitting Provider Student in an Organized Health Care Education/Training Program; PCP Family Medicine; Visit Provider Internal Medicine
PROC: 0DB98ZX Excision of Duodenum, Via Natural or Artificial Opening Endoscopic, Diagnostic (ICD-10-PCS; principal; 2021-09-03 15:00)
DX: J69.0 Pneumonitis due to inhalation of food and vomit (principal); J96.01 Acute respiratory failure with hypoxia; G92.8 Other toxic encephalopathy; I50.33 Acute on chronic diastolic (congestive) heart failure; F11.20 Opioid dependence, uncomplicated; Z68.41 Body mass index [BMI] 40.0-44.9, adult; I87.313 Chronic venous hypertension (idiopathic) with ulcer of bilateral lower extremity; L97.929 Non-pressure chronic ulcer of unspecified part of left lower leg with unspecified severity; L97.919 Non-pressure chronic ulcer of unspecified part of right lower leg with unspecified severity; F31.9 Bipolar disorder, unspecified; E03.9 Hypothyroidism, unspecified; J44.9 Chronic obstructive pulmonary disease, unspecified; F90.9 Attention-deficit hyperactivity disorder, unspecified type; F43.25 Adjustment disorder with mixed disturbance of emotions and conduct; D50.9 Iron deficiency anemia, unspecified; F17.210 Nicotine dependence, cigarettes, uncomplicated; Z71.6 Tobacco abuse counseling; E66.01 Morbid (severe) obesity due to excess calories; F43.10 Post-traumatic stress disorder, unspecified; F60.2 Antisocial personality disorder; Z20.822 Contact with and (suspected) exposure to COVID-19; Z76.5 Malingerer [conscious simulation]; Z79.899 Other long term (current) drug therapy
CPT/HCPCS: 0241U; 36415; 36600; 80048; 80307; 82272; 82607; 82728; 82746; 82803; 85025; 85027; 85610; 86850; 86900; 86901; 86923; 88305; 88342; 93005; 93306; 94640; J0456; J0692; J0696; J1200; J1650; J1940; J2250; J2920; J3010; J3370; P9016; Q9957

== ENCOUNTER 2021-09-11 09:56 | Emergency (ER) | payer MEDICARE, MEDICAID, SELFPAY ==
[2021-09-11 10:29] VITALS: BP 130/88; PULSE 74; RESP 22; O2SAT 97; BMI 36.3
[2021-09-11 12:46] LABS: Appearance Urine CLEAR; Color Urine YELLOW; Glucose Urine UA NEG (NEG); Leukocyte Esterase Urine NEG (NEG); Nitrite Urine NEG (NEG); Urine Blood NEG (NEG); Urine Ketones NEG (NEG); Urine Protein NEG (NEG-TRACE)
[2021-09-11 12:50] LABS: Basophils Absolute Auto 0.1 X10*3/uL (0.0-0.2); Basophils Percent Auto 1.4 % (0-2); Eosinophils Absolute Auto 0.3 X10*3/uL (0.0-0.4); Eosinophils Percent Auto 5.6 % (0-4); Hematocrit 36.5 % (42.0-52.0); Hemoglobin 10.4 g/dl (14.0-18.0); Imm Gran Abs Auto 0.13 X10*3/uL (0.00-0.03); Imm Gran Pct Auto 2.5 % (0.0-0.4); Lymphocytes Absolute Auto 1.1 X10*3/uL (1.2-4.9); Lymphocytes Percent Auto 21.7 % (20-40); MANUAL DIFF FLAG SCAN; Mean Corpuscular HGB Conc 28.5 g/dl (31.0-36.0); Mean Corpuscular Hemoglobin 23.1 pg (27.0-33.0); Mean Corpuscular Volume 80.9 fL (80.0-98.0); Mean Platelet Volume 9.8 fL (9.4-12.4); Monocytes Absolute Auto 0.4 X10*3/uL (0.1-1.2); Monocytes Percent Auto 7.2 % (2-11); Neutrophils Absolute Auto 3.2 x10*3/uL (2.0-8.3); Neutrophils Percent Auto 61.6 % (45-73); PLT CLUMP 1; Red Blood Count 4.51 X10*6/uL (4.60-5.80); Red Cell Distribution Width 18.6 % (11.0-16.0); SCAN SMEAR FLAG 1
[2021-09-11 13:07] LABS: Anion Gap 15 (12-20); Blood Urea Nitrogen 9 mg/dL (9-16); Calcium 9.3 mg/dL (8.4-10.2); Carbon Dioxide 25 mmol/L (22-29); Chloride 100 mmol/L (96-108); Creatinine Clr Calc Pharmacy 163.3; Estimated Glomerular Filt Rate > 60; Glucose Random 117 mg/dL (60-115); Potassium 3.8 mmol/L (3.3-5.1); Sodium 136 mmol/L (135-145)
[2021-09-11 13:13] LABS: B Type Natriuretic Peptide 38 pg/mL (<100)
[2021-09-11 13:15] LABS: Platelet Count 277 X10*3/uL (160-400); SLIDE REVIEW VERIFIED; White Blood Count 5.2 X10*3/uL (4.8-10.8)
--- NOTE | 2021-09-11 14:56 | ED.GENADULT ---
HPI - General Adult General Chief complaint: Extremity Injury, Lower Stated complaint: bilateral leg pain Time Seen by Provider: 09/11/21 14:19 Source: patient Mode of arrival: ambulatory Limitations: no limitations History of Present Illness HPI narrative: 41 yo male with hx of substance abuse on methadone states he went to the clinic today, antisocial personality disorder, aspiration pneumonia, AKHIL just seen here and left AMA on 09/04 following a long course where he was treated for psychiatric issues but also became hypoxic likely related to pain medications he was receiving and aspirated. He comes in today c/o morbid depression severe anxiety. Patient talking in circles about different medications, how no one will prescribe to him and that they don't increase his methadone dose, he even mentions he does really well on two benzodiazepines asking for clonazepam and xanax at the same time. He mentions they did this at [facility] and it worked really well for him. He states he cannot walk well at home anymore and takes all of his diuretics. He needs help mentally and physically because he can't walk anymore. He lives with his mom. MD complaint: anxiety, hard to walk Onset (ago): week(s) Location: left, right and lower extremity Severity: severe and similar to prior episodes Quality: aching, dull and constant Pain Consistency: constant Relieving factors: none Exacerbating factors: movement Associated symptoms: other (depression) Treatments prior to arrival: other (took his methadone today ) Related Data Home Medications Medication Instructions Recorded Confirmed aripiprazole 30 mg tablet (Abilify) 30 mg PO BEDTIME 08/29/21 08/30/21 buspirone 30 mg tablet 30 mg PO BID 08/29/21 08/30/21 divalproex 500 mg tablet,extended 2,500 mg PO BEDTIME 08/29/21 08/30/21 release 24 hr (Depakote ER) montelukast 10 mg tablet 10 mg PO DAILY 08/29/21 08/30/21 (Singulair) ondansetron 4 mg disintegrating 4 mg PO BID PRN Nausea 08/29/21 08/30/21 tablet pregabalin 200 mg capsule (Lyrica) 200 mg PO BID 08/29/21 08/30/21 Zinc Oxide (Triple Paste) [Triple 1 appl topical 8XD PRN Rash 08/30/21 08/30/21 Paste] Previous Rx's Medication Instructions Recorded albuterol sulfate 90 mcg/actuation 1 puff inhalation RQ4H PRN asthma 08/30/21 aerosol inhaler (Ventolin HFA) #0 grams aluminum-magnesium hydroxide 200 30 ml PO Q6H PRN Heartburn/Nausea 08/30/21 mg-200 mg/5 mL oral suspension #0 mL (MAG-AL) amitriptyline 50 mg tablet 150 mg PO BEDTIME #0 tabs 08/30/21 ascorbic acid (vitamin C) 250 mg 250 mg PO BID@0800,1700 #0 tabs 08/30/21 tablet bethanechol chloride 25 mg tablet 12.5 mg PO TID #0 tabs 08/30/21 calcium carbonate 500 mg calcium 500 mg PO BID #0 tabs 08/30/21 (1,250 mg) tablet (Oyster Shell Calcium 500) docusate sodium 100 mg capsule 100 mg PO DAILY #0 caps 08/30/21 ferrous sulfate 324 mg (65 mg 324 mg PO BIDWM #0 tabs 08/30/21 iron) tablet,delayed release fluticasone furoate 100 1 ea inhalation RDAILY #0 ea 08/30/21 mcg-vilanterol 25 mcg/dose inhalation powder (Breo Ellipta) fluticasone propionate 50 2 spray intranasal DAILY #0 grams 08/30/21 mcg/actuation nasal spray,suspension furosemide 20 mg tablet 60 mg PO BID@0900,1800 #0 tabs 08/30/21 ipratropium 0.5 mg-albuterol 3 mg 3 ml inhalation RQ4H WHILE AWAKE 08/30/21 (2.5 mg base)/3 mL nebulization #0 mL soln ipratropium bromide 17 1 puff inhalation RQID #0 grams 08/30/21 mcg/actuation HFA aerosol inhaler (Atrovent HFA) loratadine 10 mg tablet 10 mg PO DAILY #0 tabs 08/30/21 magnesium hydroxide 400 mg/5 mL 30 ml PO DAILY PRN Constipation #0 08/30/21 oral suspension (Milk of Magnesia) mL methadone 10 mg/mL oral 25 mg (2.5 mL) PO DAILY #0 mL 08/30/21 concentrate (Methadose) omeprazole 20 mg capsule,delayed 20 mg PO BID@0630,1630 #0 caps 08/30/21 release promethazine 25 mg tablet 25 mg PO Q6H PRN Nausea #0 tabs 08/30/21 tamsulosin 0.4 mg capsule 0.4 mg PO DAILY #0 caps 08/30/21 baclofen 20 mg tablet 10 mg PO BID 3 days #0 tabs 09/04/21 clonidine HCl 0.1 mg tablet 0.1 mg PO BID #0 tabs 09/04/21 diazepam 10 mg tablet (Valium) 5 mg PO TID PRN Anxiety #10 tabs 09/04/21 Allergies Allergy/AdvReac Type Severity Reaction Status Date / Time No Known Allergies Allergy Verified 08/28/21 22:18 Review of Systems Review of Systems: Constitutional : No Fever, No Chills ENT/Mouth : No Ear Pain, No Nasal Congestion, No sore throat Eyes: No Eye Pain, No Swelling, No Redness Cardiovascular : No Chest Pain, No SOB, pos lower extremity edema Respiratory : No Cough, No Sputum, No Dyspnea Gastrointestinal : No Nausea, No Vomiting, No Diarrhea, No Hematochezia, No Melena Genitourinary : No Dysuria, No Urinary Frequency, No Hematuria Musculoskeletal : No Myalgias Skin : No Skin Lesions, No rash Neuro : No Weakness, No Numbness, No Paresthesias, No Dizziness, No Headache Psych : positive Anxiety, positive Depression, no SI/HI Heme/Lymph: No Lymphadenopathy Endocrine : No Polyuria, No Polydipsia All other systems reviewed and are negative [facility] Past Medical History Attestation statement: The following information was validated with the patient. Medical History Antisocial personality disorder Bipolar 1 disorder Bipolar 1 disorder Chronic venous stasis Chronic venous stasis Fluid overload Opioid use disorder Pneumonia Social History Social History Household Members: Unknown / Unable to assess Housing: Unknown / Unable to assess Unable to assess alcohol history related to: Unknown Patient Tobacco Use Status: Current everyday Tobacco user Second Hand Smoke Exposure: No (pt unresponsive) Advance Directives: No Advance Directives Information Provided: No Current occupational status: disabled Sexual orientation: Did not discuss. Physical Exam ED Vital Signs: Vital Signs - 24 hr 09/11/21 10:29 Respiratory Rate 22 H Oxygen Delivery Method Room Air BMI result Body Mass Index 36.3 Appearance: Alert. Oriented X3. No acute distress. Very loud and boisterous, fixated on benzodiazepines and pain medications Eyes: Pupils equal, round and reactive to light. ENT: Pharynx normal. Neck: Normal inspection. Neck supple. CVS: Normal heart rate and rhythm. Pulses normal. Respiratory: No respiratory distress. Breath sounds normal. Abdomen: Soft and nontender. Obese Skin: Skin warm and dry. Normal skin color. Normal skin turgor. Extremities: pitting lower extremity edema bilateral shiny skin, open wounds noted but no puruluence crusty yellow areas - appear chronic Neuro: Oriented X 3. No motor deficit. No sensory deficit. NC2-12 intact Course Course Course Narrative: signed out to Dr. Ryan pending [facility] consult Medical Decision Making [facility] Narrative Medical decision making narrative: 41 yo male with hx of substance abuse on methadone states he went to the clinic today, antisocial personality disorder, aspiration pneumonia, AKHIL just seen here and left AMA on 09/04 comes in with c/o needing mental health but also he can't walk well at home due to his legs and he is so anxious that he can't function. He is very convoluted in his stories and the stories generally come back to the dosage of medications related to pain and benzodiazepines. He is very upset with me that I am only given him a low dose xanax and will not give him a dose of both clonazepam and xanax at the same time along with pain medication... he has proceeded to ask if I am a real doctor. At this time his labs looked good. Will give one time low dose xanax here refer to [facility], start on cephalexin and doxy given chronic venous stasis dermatitis. Dispo per [facility] but patient is medically cleared. Lab Data Result diagrams: 09/11/21 12:33 09/11/21 12:32 Labs: Lab Results 09/11/21 09/11/21 09/11/21 Range/Units 12:32 12:32 12:33 WBC 5.2 (4.8-10.8) X10*3/uL RBC 4.51 L (4.60-5.80) X10*6/uL Hgb 10.4 L (14.0-18.0) g/dl Hct 36.5 L (42.0-52.0) % MCV 80.9 (80.0-98.0) fL MCH 23.1 L (27.0-33.0) pg MCHC 28.5 L (31.0-36.0) g/dl RDW 18.6 H (11.0-16.0) % Plt Count 277 (160-400) X10*3/uL MPV 9.8 (9.4-12.4) fL Immature Gran % (Auto) 2.5 H (0.0-0.4) % Neut % (Auto) 61.6 (45-73) % Lymph % (Auto) 21.7 (20-40) % [place] % (Auto) 7.2 (2-11) % Eos % (Auto) 5.6 H (0-4) % Baso % (Auto) 1.4 (0-2) % Lymph # (Auto) 1.1 L (1.2-4.9) X10*3/uL [place] # (Auto) 0.4 (0.1-1.2) X10*3/uL Eos # (Auto) 0.3 (0.0-0.4) X10*3/uL Baso # (Auto) 0.1 (0.0-0.2) X10*3/uL Abs Immat Gran (auto) 0.13 H (0.00-0.03) X10*3/uL Absolute Neuts (auto) 3.2 (2.0-8.3) x10*3/uL Absolute Nucleated RBC 0.000 (0.0-0.012) X10*3/uL Nucleated RBC % (auto) 0.0 (0.0-0.2) /100WBC Smear Tech's Comments VERIFIED Sodium 136 (135-145) mmol/L Potassium 3.8 (3.3-5.1) mmol/L Chloride 100 (96-108) mmol/L Carbon Dioxide 25 (22-29) mmol/L Anion Gap 15 (12-20) BUN 9 (9-16) mg/dL Creatinine 0.84 (0.5-1.4) mg/dL Estim Creat Clear Calc 163.3 Estimated GFR > 60 Random Glucose 117 H (60-115) mg/dL Calcium 9.3 D (8.4-10.2) mg/dL Total Bilirubin 0.2 (0.0-1.0) mg/dL Direct Bilirubin < 0.2 (0.0-0.5) mg/dL AST 27 D (5-37) U/L ALT 17 (0-40) U/L Alkaline Phosphatase 94 D (39-117) U/L B-Natriuretic Peptide (<100) pg/mL Total Protein 8.2 H (6.5-8.0) g/dL Albumin 4.0 (3.5-5.0) g/dL Urine Color YELLOW Urine Appearance CLEAR Urine pH 8.0 (5.0-8.0) Ur Specific [place] 1.010 (1.005-1.025) Urine Protein NEG (NEG-TRACE) MG/DL Urine Glucose (UA) NEG (NEG) MG/DL Urine Ketones NEG (NEG) MG/DL Urine Blood NEG (NEG) Urine Nitrite NEG (NEG) Ur Leukocyte Esterase NEG (NEG) Urine Opiates Screen (Not Detect) Urine Fentanyl Screen (Not Detect) Ur Barbiturates Screen (Not Detect) Ur Phencyclidine Scrn (Not Detect) Ur Amphetamines Screen (Not Detect) Urine Cocaine Screen (Not Detect) U Marijuana (THC) Screen (Not Detect) 09/11/21 09/11/21 Range/Units 12:33 15:05 WBC (4.8-10.8) X10*3/uL RBC (4.60-5.80) X10*6/uL Hgb (14.0-18.0) g/dl Hct (42.0-52.0) % MCV (80.0-98.0) fL MCH (27.0-33.0) pg MCHC (31.0-36.0) g/dl RDW (11.0-16.0) % Plt Count (160-400) X10*3/uL MPV (9.4-12.4) fL Immature Gran % (Auto) (0.0-0.4) % Neut % (Auto) (45-73) % Lymph % (Auto) (20-40) % [place] % (Auto) (2-11) % Eos % (Auto) (0-4) % Baso % (Auto) (0-2) % Lymph # (Auto) (1.2-4.9) X10*3/uL [place] # (Auto) (0.1-1.2) X10*3/uL Eos # (Auto) (0.0-0.4) X10*3/uL Baso # (Auto) (0.0-0.2) X10*3/uL Abs Immat Gran (auto) (0.00-0.03) X10*3/uL Absolute Neuts (auto) (2.0-8.3) x10*3/uL Absolute Nucleated RBC (0.0-0.012) X10*3/uL Nucleated RBC % (auto) (0.0-0.2) /100WBC Smear Tech's Comments Sodium (135-145) mmol/L Potassium (3.3-5.1) mmol/L Chloride (96-108) mmol/L Carbon Dioxide (22-29) mmol/L Anion Gap (12-20) BUN (9-16) mg/dL Creatinine (0.5-1.4) mg/dL Estim Creat Clear Calc Estimated GFR Random Glucose (60-115) mg/dL Calcium (8.4-10.2) mg/dL Total Bilirubin (0.0-1.0) mg/dL Direct Bilirubin (0.0-0.5) mg/dL AST (5-37) U/L ALT (0-40) U/L Alkaline Phosphatase (39-117) U/L B-Natriuretic Peptide 38 (<100) pg/mL Total Protein (6.5-8.0) g/dL Albumin (3.5-5.0) g/dL Urine Color Urine Appearance Urine pH (5.0-8.0) Ur Specific [place] (1.005-1.025) Urine Protein (NEG-TRACE) MG/DL Urine Glucose (UA) (NEG) MG/DL Urine Ketones (NEG) MG/DL Urine Blood (NEG) Urine Nitrite (NEG) Ur Leukocyte Esterase (NEG) Urine Opiates Screen POSITIVE H (Not Detect) Urine Fentanyl Screen Not Detected (Not Detect) Ur Barbiturates Screen Not Detected (Not Detect) Ur Phencyclidine Scrn Not Detected (Not Detect) Ur Amphetamines Screen Not Detected (Not Detect) Urine Cocaine Screen Not Detected (Not Detect) U Marijuana (THC) Screen Not Detected (Not Detect) Discharge Plan Discharge Clinical Impression: Polysubstance abuse, Chronic venous stasis dermatitis Patient Disposition: Still a Patient Prescriptions: No Action Zinc Oxide (Triple Paste) [Triple Paste] 1 appl topical 8XD PRN (Reason: Rash) clonidine HCl 0.1 mg Tablet 0.1 mg PO BID Qty: 0 0RF Protocol: Hold for SBP< HOLD for SBP < : 90 baclofen 20 mg Tablet 10 mg PO BID 3 Days Qty: 0 0RF diazepam [Valium] 10 mg Tablet 5 mg PO TID PRN (Reason: Anxiety) Qty: 10 0RF montelukast [Singulair] 10 mg Tablet 10 mg PO DAILY buspirone 30 mg Tablet 30 mg PO BID divalproex [Depakote ER] 500 mg Tablet Extended Release 24 Hr 2,500 mg PO BEDTIME ondansetron 4 mg Tablet,Disintegrating 4 mg PO BID PRN (Reason: Nausea) aripiprazole [Abilify] 30 mg Tablet 30 mg PO BEDTIME pregabalin [Lyrica] 200 mg Capsule 200 mg PO BID bethanechol chloride 25 mg Tablet 12.5 mg PO TID Qty: 0 0RF promethazine 25 mg Tablet 25 mg PO Q6H PRN (Reason: Nausea) Qty: 0 0RF albuterol sulfate [Ventolin HFA] 90 mcg/actuation Hfa Aerosol Inhaler 1 puff inhalation RQ4H PRN (Reason: asthma) Qty: 0 0RF loratadine 10 mg Tablet 10 mg PO DAILY Qty: 0 0RF Atrovent HFA 17 mcg/actuation Hfa Aerosol Inhaler 1 puff inhalation RQID Qty: 0 0RF ipratropium-albuterol 0.5 mg-3 mg(2.5 mg base)/3 mL Solution For Nebulization 3 ml inhalation RQ4H WHILE AWAKE Qty: 0 0RF amitriptyline 50 mg Tablet 150 mg PO BEDTIME Qty: 0 0RF tamsulosin 0.4 mg Capsule 0.4 mg PO DAILY Qty: 0 0RF ferrous sulfate 324 mg (65 mg iron) Tablet,Delayed Release (Dr/Ec) 324 mg PO BIDWM Qty: 0 0RF magnesium hydroxide [Milk of Magnesia] 400 mg/5 mL Suspension 30 ml PO DAILY PRN (Reason: Constipation) Qty: 0 0RF calcium carbonate [Oyster Shell Calcium 500] 500 mg calcium (1,250 mg) Tablet 500 mg PO BID Qty: 0 0RF docusate sodium 100 mg Capsule 100 mg PO DAILY Qty: 0 0RF omeprazole 20 mg Capsule,Delayed Release(Dr/Ec) 20 mg PO BID@0630,1630 Qty: 0 0RF furosemide 20 mg Tablet 60 mg PO BID@0900,1800 Qty: 0 0RF Protocol: Hold for SBP< HOLD for SBP < : 90 methadone [Methadose] 10 mg/mL Concentrate 25 mg PO DAILY Qty: 0 0RF Rx Instructions: Partial Fill upon patient request. fluticasone propionate 50 mcg/actuation [place],Suspension 2 spray intranasal DAILY Qty: 0 0RF MAG-AL 200-200 mg/5 mL Suspension 30 ml PO Q6H PRN (Reason: Heartburn/Nausea) Qty: 0 0RF fluticasone furoate-vilanterol [Breo Ellipta] 100-25 mcg/dose Blister With Device 1 ea inhalation RDAILY Qty: 0 0RF ascorbic acid (vitamin C) 250 mg Tablet 250 mg PO BID@0800,1700 Qty: 0 0RF
[2021-09-11 15:22] LABS: Alanine Aminotransferase 17 U/L (0-40); Alkaline Phosphatase 94 U/L (39-117); Aspartate Amino Transferase 27 U/L (5-37); Bilirubin Direct < 0.2 mg/dL (0.0-0.5); Bilirubin Total 0.2 mg/dL (0.0-1.0); Total Protein 8.2 g/dL (6.5-8.0)
[2021-09-11] MEDS: ALPRAZolam 0.5 MG TABLET PO (15:26)
[2021-09-11] MEDS: cephALEXin 500 MG CAPSULE PO (15:26)
[2021-09-11 15:48] LABS: Fentanyl, urine Not Detected (Not Detect)
[2021-09-11 15:55] LABS: Amphetamine Screen Urine Not Detected (Not Detect); Barbiturates, Urine Not Detected (Not Detect); Cannabinoid Screen Urine Not Detected (Not Detect); Cocaine Screen Urine Not Detected (Not Detect); Opiate Screen Urine POSITIVE (Not Detect); Phencyclidine Screen Urine Not Detected (Not Detect)
[2021-09-11 16:14] VITALS: BP 144/99; PULSE 92; RESP 16; TEMP 36.6; O2SAT 100
[2021-09-11 16:51] LABS: Benzodiazepines Screen Urine POSITIVE (Not Detect)
[2021-09-11 17:16] LABS: COVID-19 Test Negative (Negative); IDNOW Serial# 16C4AD1C
[2021-09-11 17:38] LABS: Valproate 46.5 mcg/mL (50.0-100.0)
--- NOTE | 2021-09-11 17:43 | PC.NURSE ---
care team at bedside for eval, pt having extensive convo w care team and provider.
--- NOTE | 2021-09-11 18:04 | MHC.CARE ---
CARE Team meets with pt due to anxiety and depression. Pt identifies that this has been an ongoing issue and he has had many past [facility] hospitalizations. Pt was recently discharged from [facility] psych with plan to follow up with outpatient providers. Pt denies SI/HI/AVH. He endorses increased distress relating to his physical aliments, reporting he is in pain due to his legs and feet swelling. He is concerned about his methadone not being high enough and being switched from xanax to valium recently. Pt denies needing med changes other then benzo and methadone. Pt does not meet criteria for IPLOC at this time. He reports knowing how to reach [facility] crisis services and identifies that he has providers in the community, but missed an appointment today with his PCP due to being here. CARE Team encourages pt to reschedule his appt with PCP. Plan is for pt to be discharged to home. Dr Ryan made aware of concerns regarding pt's pain and being out of his medications.
--- NOTE | 2021-09-11 18:46 | PHA.MEDREC ---
Pharmacy Consult ? Medication Reconciliation Pharmacy has completed the medication reconciliation. SERGE Fabian called for pharmacy to do med rec before patient was discharged. Spoke with patient in ED>
== END 2021-09-11 18:39 | disposition home or self-care (01) ==
PROVIDERS: Emergency Medicine; Emergency Provider Emergency Medicine; PCP Family Medicine
DX: F19.10 Other psychoactive substance abuse, uncomplicated (principal); I87.2 Venous insufficiency (chronic) (peripheral); F41.9 Anxiety disorder, unspecified; F32.A Depression, unspecified; M79.605 Pain in left leg; M79.604 Pain in right leg; R60.0 Localized edema; F11.20 Opioid dependence, uncomplicated; F60.2 Antisocial personality disorder; F17.200 Nicotine dependence, unspecified, uncomplicated; Z20.822 Contact with and (suspected) exposure to COVID-19; Z79.899 Other long term (current) drug therapy
CPT/HCPCS: 36415; 80048; 80076; 80164; 80307; 81003; 83880; 85025; 87635; 99283; 99284

== ENCOUNTER 2022-10-14 10:54 | Emergency (ER) | payer MEDICARE, MEDICAID, SELFPAY ==
--- NOTE | 2022-10-14 10:57 | ED.GENADULT ---
HPI - General Adult General Chief complaint: ETOH/Substance Use Stated complaint: OD Time Seen by Provider: 10/14/22 10:57 Source: patient, EMS, RN notes reviewed and old records reviewed Mode of arrival: EMS History of Present Illness HPI narrative: 42-year-old male with a past medical history of bipolar, PTSD, opiate abuse on methadone, chronic venous stasis, presenting to the ED via EMS from [facility] where patient presented for intake, however, was too somnolent/sleepy and sent to the ED for further evaluation. 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 History limited due to patient's lethargy/ acute mental status however denies taking more than prescribed medications or other illicit substances. Onset (ago): unknown Related Data Home Medications Medication Instructions Recorded Confirmed aripiprazole 30 mg tablet (Abilify) 30 mg PO BEDTIME 08/29/21 09/11/21 buspirone 30 mg tablet 30 mg PO BID 08/29/21 09/11/21 divalproex 500 mg tablet,extended 2,500 mg PO BEDTIME 08/29/21 09/11/21 release 24 hr (Depakote ER) montelukast 10 mg tablet 10 mg PO BEDTIME 08/29/21 09/11/21 (Singulair) ondansetron 4 mg disintegrating 4 mg PO BID PRN Nausea 08/29/21 09/11/21 tablet pregabalin 200 mg capsule (Lyrica) 200 mg PO BID 08/29/21 09/11/21 Zinc Oxide (Triple Paste) [Triple 1 appl topical 8XD PRN Rash 08/30/21 09/11/21 Paste] bethanechol chloride 25 mg tablet 25 mg PO TID 09/11/21 09/11/21 diazepam 10 mg tablet (Valium) 10 mg PO TID PRN Anxiety 09/11/21 09/11/21 hydroxyzine HCl 50 mg tablet 1 tab PO Q8H PRN Asystole 09/11/21 09/11/21 ibuprofen 800 mg tablet 1 tab PO TID PRN Pain (Scale Score 09/11/21 09/11/21 1-3) methadone 10 mg/mL oral 20 mg PO DAILY 09/11/21 09/11/21 concentrate (Methadose) metoclopramide HCl 10 mg tablet 1 tab PO TID PRN nausea/vomiting 09/11/21 09/11/21 morphine 30 mg immediate release 1 tab PO Q4H PRN Pain (Scale Score 09/11/21 09/11/21 tablet 7-10) pantoprazole 40 mg tablet,delayed 1 tab PO BID@0630,1630 09/11/21 09/11/21 release promethazine 25 mg tablet 25 mg PO Q8H PRN Nausea And 09/11/21 09/11/21 Vomiting tizanidine 4 mg tablet 4 mg PO BID PRN Muscle Spasm 09/11/21 09/11/21 Previous Rx's Medication Instructions Recorded albuterol sulfate 90 mcg/actuation 1 puff inhalation RQ4H PRN asthma 08/30/21 aerosol inhaler (Ventolin HFA) #0 grams aluminum-magnesium hydroxide 200 30 ml PO Q6H PRN Heartburn/Nausea 08/30/21 mg-200 mg/5 mL oral suspension #0 mL (MAG-AL) amitriptyline 50 mg tablet 150 mg PO BEDTIME #0 tabs 08/30/21 ascorbic acid (vitamin C) 250 mg 250 mg PO BID@0800,1700 #0 tabs 08/30/21 tablet calcium carbonate 500 mg calcium 500 mg PO BID #0 tabs 08/30/21 (1,250 mg) tablet (Oyster Shell Calcium 500) docusate sodium 100 mg capsule 100 mg PO DAILY #0 caps 08/30/21 ferrous sulfate 324 mg (65 mg 324 mg PO BIDWM #0 tabs 08/30/21 iron) tablet,delayed release furosemide 20 mg tablet 60 mg PO BID@0900,1800 #0 tabs 08/30/21 ipratropium 0.5 mg-albuterol 3 mg 3 ml inhalation RQ4H WHILE AWAKE 08/30/21 (2.5 mg base)/3 mL nebulization #0 mL soln loratadine 10 mg tablet 10 mg PO DAILY #0 tabs 08/30/21 magnesium hydroxide 400 mg/5 mL 30 ml PO DAILY PRN Constipation #0 08/30/21 oral suspension (Milk of Magnesia) mL clonidine HCl 0.3 mg tablet 0.3 mg PO TID #6 tabs 09/11/21 diazepam 10 mg tablet 10 mg PO TID PRN anxiety #6 tabs 09/11/21 pregabalin 200 mg capsule 200 mg PO BID #10 caps 09/11/21 Allergies Allergy/AdvReac Type Severity Reaction Status Date / Time No Known Allergies Allergy Verified 08/28/21 22:18 Review of Systems Review of Systems: ROS limited secondary to patient's acute mental status Yes all other systems are reviewed and are negative Constitutional: Constitutional: Reports as per [facility] Past Medical History Attestation statement: The following information was validated with the patient. Source: old records reviewed Medical History Antisocial personality disorder Bipolar 1 disorder Bipolar 1 disorder Chronic venous stasis Chronic venous stasis Fluid overload Opioid use disorder Pneumonia Social History Social History Household Members: Unknown / Unable to assess Housing: Unknown / Unable to assess Unable to assess alcohol history related to: Unknown Alcohol intake: current Alcohol intake frequency: 0-2 drinks per day Patient Tobacco Use Status: Current everyday Tobacco user Smoked in Last 30 Days: Yes Second Hand Smoke Exposure: No (pt unresponsive) Use of substances other than those prescribed or required for medical reasons: Yes Substance Use Type: Marijuana Substance Use Frequency: Chronic Longstanding Advance Directives: No Advance Directives Information Provided: No Current occupational status: disabled Sexual orientation: Did not discuss. Physical Exam ED Vital Signs: Vital Signs - 24 hr 10/14/22 11:28 10/14/22 12:22 10/14/22 13:29 Temperature 98.3 F 98.1 F Pulse Rate 76 72 67 Respiratory Rate 18 14 13 Blood Pressure 102/53 L 95/57 L 107/63 Pulse Oximetry 97 93 96 Oxygen Delivery Method Room Air Room Air Nasal Cannula Oxygen Flow Rate 2 10/14/22 15:00 Temperature 98.1 F Pulse Rate 73 Respiratory Rate 12 Blood Pressure 98/64 Pulse Oximetry 98 Oxygen Delivery Method Room Air Oxygen Flow Rate BMI result Body Mass Index 37.2 Const Other: appears under the influence, lethargic, arousable to sternal rub General: intoxicated appearing, lethargic and poor hygiene Orientation/consciousness: lethargic Limitations: altered mental status HENMT Head: Yes normal to inspection and Yes atraumatic Ears: hearing grossly normal bilaterally General nose exam: Normal external nose present Face and sinus: Yes normal facial exam Eyes General: appearance normal, both eyes and all related structures Pupils: Equal, round and reactive pupils present EOM: EOMs intact bilaterally Neck Neck: Yes normal visual inspection and Yes no meningeal signs Resp Effort & Inspection: normal respiratory effort and no respiratory distress Auscultation: clear to auscultation bilaterally Cardio Rate: regular rate Heart sounds: S1 normal heart sound present and S2 normal heart sound present GI Inspection: Yes normal to inspection Palpation (GI): Soft to palpation, nontender, no guarding and not rigid Back/Spine/Pelvis Other: No midline cervical/thoracic/lumbar spinous tenderness/step-off or deformity Skin Rashes: no rashes Wounds: no wounds Neuro General: tone normal, moves all extremities and no meningeal signs Cranial nerves: Yes Equal, round and reactive pupils present Extrem Other: chronic LE edema with venous stasis changes, no erythema /warmth General: Yes normal to inspection Course Course Course Narrative: - patient has been awake and alert, oriented, denies SI/HI. Admits to taking 1 Xanax and 1 clonidine. Continuously requesting additional medications to make him relaxed. threatening staff that he can become aggressive/ angry. Is not interested in detox at this time. >> Is ambulating in the ED at baseline, will discharge with Narcan to go home Results discussed with patient including worrisome signs and symptoms and strict return precautions, and when to return to the emergency department. They verbalized understanding and feel safe for discharge at this time. Medications Administered Discontinued Medications Generic Name Dose Route Start Last Admin Trade Name Freq PRN Reason Stop Dose Admin Sodium Chloride 1,000 mls @ 999 mls/hr 10/14/22 12:45 10/14/22 13:22 Ns IV 10/14/22 13:45 999 mls/hr .Q1H1M MARK Administration Medical Decision Making Medical Decision Making MDM Narrative: 42-year-old male with a past medical history of bipolar, PTSD, opiate abuse on methadone, chronic venous stasis, presenting to the ED via EMS from [facility] where patient presented for intake, however, was too somnolent/sleepy and sent to the ED for further evaluation. 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 on exam vital signs stable, maintaining airway, lethargic/under the influence however arousable to sternal rub, history limited due to patient's acute mental status. No evidence of trauma. Concern for polysubstance use vs accidental overdose. Lower suspicion for ICH/ intrathoracic or intra-abdominal injury plan: Labs, tox screen, care team consult, observe and re-evaluate for clinical sobriety Please refer to course for remaining clinical decision making, interpretation of labs/imaging results, and discussions with consultants and/or family members. Differential Diagnosis Differential Diagnoses: The differential diagnosis associated with the presentation includes As above Admission/Observation Consideration of admission/observation: Escalation of care including admission/observation considered Consult Healthcare Provider Management of the patient was discussed with: Behavioral Health Provider Lab Data MDM Lab Attestation statement: I reviewed the patient's lab results. 10/14/22 13:20 10/14/22 13:20 Labs: Lab Results 10/14/22 10/14/22 10/14/22 Range/Units 13:20 13:20 13:20 WBC 8.2 (4.8-10.8) X10*3/uL RBC 4.17 L (4.60-5.80) X10*6/uL Hgb 10.9 L (14.0-18.0) g/dl Hct 34.5 L (42.0-52.0) % MCV 82.7 (80.0-98.0) fL MCH 26.1 L (27.0-33.0) pg MCHC 31.6 (31.0-36.0) g/dl RDW 15.6 (11.0-16.0) % Plt Count 146 L D (160-400) X10*3/uL MPV 9.1 L (9.4-12.4) fL Immature Gran % (Auto) 0.4 (0.0-0.4) % Neut % (Auto) 69.7 (45-73) % Lymph % (Auto) 17.7 L (20-40) % Jones % (Auto) 7.1 (2-11) % Eos % (Auto) 4.6 H (0-4) % Baso % (Auto) 0.5 (0-2) % Lymph # (Auto) 1.5 (1.2-4.9) X10*3/uL Jones # (Auto) 0.6 (0.1-1.2) X10*3/uL Eos # (Auto) 0.4 (0.0-0.4) X10*3/uL Baso # (Auto) 0.0 (0.0-0.2) X10*3/uL Abs Immat Gran (auto) 0.03 (0.00-0.03) X10*3/uL Absolute Neuts (auto) 5.7 (2.0-8.3) x10*3/uL Absolute Nucleated RBC 0.000 (0.0-0.012) X10*3/uL Nucleated RBC % (auto) 0.0 (0.0-0.2) /100WBC Sodium 138 (135-145) mmol/L Potassium 3.8 (3.3-5.1) mmol/L Chloride 101 (96-108) mmol/L Carbon Dioxide 29 (22-29) mmol/L Anion Gap 12 (12-20) BUN 10 (9-16) mg/dL Creatinine 0.71 (0.5-1.4) mg/dL Estim Creat Clear Calc 193.8 Estimated GFR > 60 Random Glucose 142 H (60-115) mg/dL Calcium 8.9 (8.4-10.2) mg/dL Magnesium 2.1 (1.6-2.6) mg/dL Total Bilirubin 0.2 (0.0-1.0) mg/dL Direct Bilirubin < 0.2 (0.0-0.5) mg/dL AST 19 (5-37) U/L ALT 14 (0-40) U/L Alkaline Phosphatase 79 (39-117) U/L B-Natriuretic Peptide (<100) pg/mL Total Protein 6.8 (6.5-8.0) g/dL Albumin 3.4 L (3.5-5.0) g/dL Salicylates < 5.0 L (15-30) mg/dL Acetaminophen < 17 (<30) mcg/mL Ethyl Alcohol < 10 mg/dL 10/14/22 Range/Units 13:20 WBC (4.8-10.8) X10*3/uL RBC (4.60-5.80) X10*6/uL Hgb (14.0-18.0) g/dl Hct (42.0-52.0) % MCV (80.0-98.0) fL MCH (27.0-33.0) pg MCHC (31.0-36.0) g/dl RDW (11.0-16.0) % Plt Count (160-400) X10*3/uL MPV (9.4-12.4) fL Immature Gran % (Auto) (0.0-0.4) % Neut % (Auto) (45-73) % Lymph % (Auto) (20-40) % Jones % (Auto) (2-11) % Eos % (Auto) (0-4) % Baso % (Auto) (0-2) % Lymph # (Auto) (1.2-4.9) X10*3/uL Jones # (Auto) (0.1-1.2) X10*3/uL Eos # (Auto) (0.0-0.4) X10*3/uL Baso # (Auto) (0.0-0.2) X10*3/uL Abs Immat Gran (auto) (0.00-0.03) X10*3/uL Absolute Neuts (auto) (2.0-8.3) x10*3/uL Absolute Nucleated RBC (0.0-0.012) X10*3/uL Nucleated RBC % (auto) (0.0-0.2) /100WBC Sodium (135-145) mmol/L Potassium (3.3-5.1) mmol/L Chloride (96-108) mmol/L Carbon Dioxide (22-29) mmol/L Anion Gap (12-20) BUN (9-16) mg/dL Creatinine (0.5-1.4) mg/dL Estim Creat Clear Calc Estimated GFR Random Glucose (60-115) mg/dL Calcium (8.4-10.2) mg/dL Magnesium (1.6-2.6) mg/dL Total Bilirubin (0.0-1.0) mg/dL Direct Bilirubin (0.0-0.5) mg/dL AST (5-37) U/L ALT (0-40) U/L Alkaline Phosphatase (39-117) U/L B-Natriuretic Peptide 28 (<100) pg/mL Total Protein (6.5-8.0) g/dL Albumin (3.5-5.0) g/dL Salicylates (15-30) mg/dL Acetaminophen (<30) mcg/mL Ethyl Alcohol mg/dL Independent Historian Clinical information obtained from an independent historian. History obtained from or confirmed by: EMS External Record Review External record reviewed: Inpatient record, Office record, Outpatient record, Prior outpatient labs, Prior outpatient radiology, Primary care record and Outside ED record Tests considered The following testing was considered but not selected: As above Social Determinants Patient?s care significantly limited by Social Determinants of Health including: Inadequate housing, Alcoholism and drug addiction in family, Problems related to primary support group, Unemployment and Other Social Determinant of Health Discharge Plan Discharge Clinical Impression: Overdose, Polysubstance abuse Patient Disposition: Home, Self-Care Instructions: Polysubstance Abuse (ED), Adult Overdose (ED) Additional Instructions: AVOID DRUGS AND ALCOHOL THIS CAN KILL YOU. ONLY TAKE YOUR PRESCRIBED MEDICINES DO NOT TAKE ANY EXTRA DOSES TAKE NARCAN TO GO HOME FOLLOW UP WITH YOUR DOCTOR AND CRISTIANO GIORDANO Prescriptions: No Action Zinc Oxide (Triple Paste) [Triple Paste] 1 appl topical 8XD PRN (Reason: Rash) clonidine HCl 0.3 mg tablet 0.3 mg PO TID Qty: 6 0RF pregabalin 200 mg capsule 200 mg PO BID Qty: 10 0RF diazepam 10 mg tablet 10 mg PO TID PRN (Reason: anxiety) Qty: 6 0RF ibuprofen 800 mg tablet 1 tab PO TID PRN (Reason: Pain (Scale Score 1-3)) tizanidine 4 mg Tablet 4 mg PO BID PRN (Reason: Muscle Spasm) hydroxyzine HCl 50 mg tablet 1 tab PO Q8H PRN (Reason: Asystole) morphine 30 mg tablet 1 tab PO Q4H PRN (Reason: Pain (Scale Score 7-10)) pantoprazole 40 mg tablet,delayed release (DR/EC) 1 tab PO BID@0630,1630 bethanechol chloride 25 mg tablet 25 mg PO TID promethazine 25 mg tablet 25 mg PO Q8H PRN (Reason: Nausea And Vomiting) diazepam [Valium] 10 mg tablet 10 mg PO TID PRN (Reason: Anxiety) methadone [Methadose] 10 mg/mL concentrate 20 mg PO DAILY Rx Instructions: Partial Fill upon patient request. metoclopramide HCl 10 mg tablet 1 tab PO TID PRN (Reason: nausea/vomiting) montelukast [Singulair] 10 mg Tablet 10 mg PO BEDTIME buspirone 30 mg Tablet 30 mg PO BID divalproex [Depakote ER] 500 mg Tablet Extended Release 24 Hr 2,500 mg PO BEDTIME ondansetron 4 mg Tablet,Disintegrating 4 mg PO BID PRN (Reason: Nausea) aripiprazole [Abilify] 30 mg Tablet 30 mg PO BEDTIME pregabalin [Lyrica] 200 mg Capsule 200 mg PO BID albuterol sulfate [Ventolin HFA] 90 mcg/actuation Hfa Aerosol Inhaler 1 puff inhalation RQ4H PRN (Reason: asthma) Qty: 0 0RF loratadine 10 mg Tablet 10 mg PO DAILY Qty: 0 0RF ipratropium-albuterol 0.5 mg-3 mg(2.5 mg base)/3 mL Solution For Nebulization 3 ml inhalation RQ4H WHILE AWAKE Qty: 0 0RF amitriptyline 50 mg Tablet 150 mg PO BEDTIME Qty: 0 0RF ferrous sulfate 324 mg (65 mg iron) Tablet,Delayed Release (Dr/Ec) 324 mg PO BIDWM Qty: 0 0RF magnesium hydroxide [Milk of Magnesia] 400 mg/5 mL Suspension 30 ml PO DAILY PRN (Reason: Constipation) Qty: 0 0RF calcium carbonate [Oyster Shell Calcium 500] 500 mg calcium (1,250 mg) Tablet 500 mg PO BID Qty: 0 0RF docusate sodium 100 mg Capsule 100 mg PO DAILY Qty: 0 0RF furosemide 20 mg Tablet 60 mg PO BID@0900,1800 Qty: 0 0RF Protocol: Hold for SBP< HOLD for SBP < : 90 MAG-AL 200-200 mg/5 mL Suspension 30 ml PO Q6H PRN (Reason: Heartburn/Nausea) Qty: 0 0RF ascorbic acid (vitamin C) 250 mg Tablet 250 mg PO BID@0800,1700 Qty: 0 0RF [facility]errals: [facility] [Provider Group] [facility] [Outside]
[2022-10-14 11:28] VITALS: BP 102/53; PULSE 76; RESP 18; TEMP 36.8; O2SAT 97; BMI 37.2
--- OUTSIDE RECORDS SUMMARY | 2022-10-14 11:47 | XMS_ITS | Continuity of Care Document ---
Author Name Unknown Organization [facility] Address [address] [place] [address]- Care Team Providers Care Project Scheduler Name Role Phone Soto RAMIREZ MD, Bal Serrano Primary Care Physician Encounter [facility] Date(s): 02/06/21 - 02/06/[address] [address]- Discharge Disposition: A-D/C Home Attending Physician: Anibal Lyn MD Admitting Physician: Anibal Lyn MD Referring Physician: Not on Staff, Referring MD Allergies, Adverse Reactions, Alerts Substance Reaction Severity Status Zoloft Active Thorazine Active traZODone Active ZyPREXA Active Medications Advair Diskus 250 mcg-50 mcg inhalation powder Inhalation, 2 times a day, Refills 0, Maintenance, 05/21/20 9:46:00 EST Start Date: 05/21/20 Status: Ordered Albuterol 0.083% inhalation sadia 2.5 mg, 3, mL, BAND Nebulizer, Every 4 hours, PRN, Refills 0, Maintenance, Wheezing/Shortness of Breath, 05/28/20 15:46:00 EDT, Inhalation Solution Start Date: 05/28/20 Status: Ordered albuterol CFC free 90 mcg/inh inhalation aerosol 2, puffs, Inhalation, Every 4 hours, PRN, # 18 Gm, Refills 3, Tot. Refills 3, Maintenance, 02/13/1911:48:23 EST, Aerosol, Route to Pharmacy Electronically, [id number], [facility]/pharmacy #[id number] Start Date: 02/13/19 Status: Ordered amitriptyline 100 mg oral tablet 1 tablet = 100 mg, By Mouth, Daily at bedtime, # 7 tablet, 3 Refills, Maintenance, 04/15/20 10:15:00 EST, Tablet, [facility] #[id number], Partial fill upon patient request if the prescription isfor a schedule II opioid drug., 183, cm, 04/15/20 0... Start Date: 04/15/20 Stop Date: 05/13/20 Status: Ordered amitriptyline 25 mg oral tablet 75 mg, 3, tablet, By Mouth, Daily, # 21 tablet, Refills 3, Tot. Refills 3, Maintenance, 04/13/20 14:55:00 EST, Route to Pharmacy Electronically, [facility] #[id number], Partial fill upon patientrequest if the prescription is for a schedule II op... Start Date: 04/13/20 Stop Date: 05/11/20 Status: Ordered busPIRone 15 mg oral tablet 1 tablet = 15 mg, By Mouth, 3 times a day, # 42 tablet, 1 Refills, Maintenance, 04/13/20 14:56:00 EST, Tablet, [facility] #[id number], Partial fill upon patient request if the prescription is for a schedule II opioid drug., 183, cm, 04/13/20 9:04... Start Date: 04/13/20 Stop Date: 05/11/20 Status: Ordered Depakote 500 mg oral enteric coated tablet 1 tablet = 500 mg, By Mouth, 3 times a day, # 270 tablet, 0 Refills, Maintenance, 10/22/20 21:54:00EDT, EC Tablet, Partial fill upon patient request if the prescription is for a schedule II opioid drug. Start Date: 10/22/20 Status: Ordered docusate sodium 100 mg oral capsule 100 mg, 1, capsule, By Mouth, 2 times a day, # 60 capsule, Refills 0, Tot. Refills 0, Maintenance, 09/13/20 14:45:00 EDT, Route to Pharmacy Electronically, [facility] #[id number], Partial fill upon patient request if the prescription is for a salima... Start Date: 09/13/20 Status: Ordered Fioricet oral capsule 2 capsule, By Mouth, 3 times a day, 0 Refills, Maintenance, 02/06/21 7:58:00 EST, Partial fill uponpatient request if the prescription is for a schedule II opioid drug. Start Date: 02/06/21 Status: Ordered Flomax 0.4 mg oral capsule 0.4 mg, 1, capsule, By Mouth, Daily, # 30 capsule, Refills 0, Tot. Refills 0, Maintenance, 10/22/2121:52:00 EDT, Route to Pharmacy Electronically, [facility] #[id number], Partial fill upon patient request if the prescription is for a schedule II... Start Date: 10/22/20 Status: Ordered fluticasone 50 mcg/inh nasal spray 2 sprays, Nares, Both, 2 times a day, # 9.9 mL, 0 Refills, Maintenance, 11/15/18 14:21:09 EDT, [place], 2 sprays Nares, Both 2 times a day Start Date: 11/15/18 Status: Ordered furosemide 20 mg oral tablet 20 mg, 1, tablet, By Mouth, Daily, Refills 0, Maintenance, 05/28/20 15:49:00 EDT, Partial fill uponpatient request if the prescription is for a schedule II opioid drug. Start Date: 05/28/20 Status: Ordered gabapentin 800 mg oral tablet 1 tablet = 800 mg, By Mouth, 3 times a day, # 90 tablet, 0 Refills, Maintenance, 01/07/21 18:42:00 EDT, Tablet, [facility] #[id number], Partial fill upon patient request if the prescription is for a schedule II opioid drug., 183, cm, 01/07/21 17:... Start Date: 01/07/21 Status: Ordered Melatonin = 10 mg, By Mouth, Daily at bedtime, replaces ambien, 0 Refills, Maintenance, 02/06/21 7:58:00 EST,Partial fill upon patient request if the prescription is for a schedule II opioid drug. Start Date: 02/06/21 Status: Ordered methocarbamol 500 mg oral tablet 1 tablet = 500 mg, By Mouth, 3 times a day, 0 Refills, Maintenance, 02/06/21 7:57:00 EST, Partial fill upon patient request if the prescription is for a schedule II opioid drug. Start Date: 02/06/21 Status: Ordered Minipress 1 mg oral capsule 1 mg, 1, capsule, By Mouth, 3 times a day, Refills 0, Maintenance, 02/06/21 7:57:00 EST, Partial fill upon patient request if the prescription is for a schedule II opioid drug. Start Date: 02/06/21 Status: Ordered nicotine 14 mg/24 hr transdermal film, extended release 1 patch, Topically, Daily, # 30 patch, 0 Refills, Acute 05/28/21 9:00:00 EDT, 05/28/20 15:55:00 EDT, Patch, [facility] #[id number], Partial fill upon patient request if the prescription is for aschedule II opioid drug., 1 patch Topically Daily,... Start Date: 05/28/20 Stop Date: 05/28/21 Status: Ordered Protonix 40 mg oral delayed release tablet = 40 mg, By Mouth, 2 times a day, # 28 tablet, 1 Refills, Maintenance, 04/13/20 14:55:00 EST, EC Tablet, 183, cm, 04/13/20 9:04:00 EST, Height, 118, kg, 04/10/20 23:17:00 EST, Dry Weight Start Date: 04/13/20 Stop Date: 05/11/20 Status: Ordered RisperDAL 2 mg oral tablet 2 mg, 1, tablet, By Mouth, 2 times a day, # 28 tablet, Refills 1, Tot. Refills 1, Maintenance, 04/13/20 14:57:00 EST, Route to Pharmacy Electronically, [facility] #[id number], Partial fill upon patient request if the prescription is for a schedul... Start Date: 04/13/20 Stop Date: 05/11/20 Status: Ordered Singulair = 10 mg, By Mouth, Daily, 0 Refills, Maintenance, 05/21/20 9:45:00 EST, Partial fill upon patient request if the prescription is for a schedule II opioid drug. Start Date: 05/21/20 Status: Ordered Suboxone 4 mg-1 mg sublingual film 1 film, Sublingual, Daily, dissolve under the tongue, 0 Refills, Maintenance, 02/06/21 8:00:00 EST,Film, Partial fill upon patient request if the prescription is for a schedule II opioid drug. Start Date: 02/06/21 Status: Ordered Suboxone 8 mg-2 mg sublingual film 1 film, Sublingual, Daily, dissolve under the tongue, 0 Refills, Maintenance, 02/06/21 8:00:00 EST,Film, Partial fill upon patient request if the prescription is for a schedule II opioid drug. Start Date: 02/06/21 Status: Ordered tamsulosin 0.4 mg oral capsule 0.4 mg, 1, capsule, By Mouth, 2 times a day, # 30 capsule, Refills 0, Maintenance, 02/06/21 7:59:00EST, Partial fill upon patient request if the prescription is for a schedule II opioid drug. Start Date: 02/06/21 Status: Ordered traMADol 50 mg oral tablet 1 tablet = 50 mg, By Mouth, Every 12 hours, PRN for pain, # 10 tablet, 0 Refills, Maintenance, 07/27/20 19:15:00 EDT, Tablet, [facility] #[id number], Partial fill upon patient request if the prescription is for a schedule II opioid drug., 184, cm... Start Date: 07/27/20 Status: Ordered Urecholine Tablet 10 mg, By Mouth, 3 times a day, Refills 0, Maintenance, 02/06/21 8:01:00 EST, Partial fill upon patient request if the prescription is for a schedule II opioid drug. Start Date: 02/06/21 Status: Ordered Xanax 1 mg oral tablet 1 tablet = 1 mg, By Mouth, 3 times a day, 0 Refills, Maintenance, 09/13/20 10:11:00 EDT, Partial fill upon patient request if the prescription is for a schedule II opioid drug. Start Date: 09/13/20 Status: Ordered Problem List Condition Effective Dates Status Health Status Inform ant Allergic rhinitis(Confirmed) Active Asthma(Confirmed) Active Bipolar disorder with depression(Confirmed) Active GERD (gastroesophageal reflu x disease)(Confirmed) Active Generalized anxiety disorder(Confirmed) Active Hypothyroidism(Confirmed) Active Results Radiology Reports * Exam Date Time Procedure Performing Provider Status 02/06/21 10:07 AM Knee 3 Views Right Niya Brown (Verified) Notes: (Knee 3 Views Right) Reason For Exam: Other: RESULT: Knee 3 Views Right Knee 3 Views Right INDICATION: Right knee pain after fall yesterday COMPARISON: 02/09/2020 FINDINGS: There is no evidence of acute or healing fracture, dislocation or bone lesion. No arthritic changes. No osteochondral defects or intra-articular loose bodies. No evidence of joint effusion. IMPRESSION: Normal. WSN: [id number] Ordering Physician: Anibal Lyn Dictated By: Alcides Younger MD Dictated Date/Time: 02/06/21 10:11 a Reviewed By: Alcides Younger MD Signed By: Alcides Younger MD Signed Date/Time: 02/06/21 10:11 am Transcribed By: RAVINDER Transcribed Date/Time: 02/06/21 10:10 am Vital Signs Most recent to oldest [Reference Range]: 1 2 Height 183 cm (02/06/21 7:21 AM) Weight 147.7 kg (02/06/21 7:32 AM) 147.5 kg (02/06/21 7:21 AM) Oxygen Saturation [94-100 %] 98 % (02/06/21 12:15 PM) 97 % (02/06/21 7:32 AM) Pulse Rate [55-90 bpm] 88 bpm (02/06/21 12:15 PM) 92 bpm *H* (02/06/21 7:32 AM) Blood Pressure [90-138/55-84 mm Hg] 118/ 74mm Hg (02/06/21 12:15 PM) 124/85mm Hg (02/06/21 7:32 AM) Respiratory Rate [16-30 br/min] 16 br/mi n (02/06/21 12:15 PM) 16 br/min (02/06/21 7:32 AM) Temperature [96.8-100.4 DegF] 97.9 DegF (02/06/21 7:32 AM) Mode of Delivery (Oxygen) Room air (02/06/21 12:15 PM) Room air (02/06/21 7:32 AM) Blood pressure sites Arm, right (02/06/21 12:15 PM) Arm, right (02/06/21 7:32 AM) Temperature Route Oral (02/06/21 7:32 AM) Dry Weight 147.5 kg (02/06/21 7:21 AM) Weight Obtained Via Patient/family state d (02/06/21 7:32 AM) Patient/family stated (02/06/21 7:21 AM) Dry Weight Obtained Via Patient/family s tated (02/06/21 7:21 AM) Social History Social History Type Response Tobacco Use: 1PPD. Sex Medical Equipment Implanted Date:09/13/20Target Site:Abdomen Description Quantity MRI Company Model MESH VENTRALIGHT ECHO ELLIPS 4 - BARD ([id number]) 1 Bard Unknown HAYDEE:{01}[id number] Assigning Author ity:FDA
--- OUTSIDE RECORDS SUMMARY | 2022-10-14 11:47 | XMS_ITS | Continuity of Care Document ---
Author Name Unknown Organization [facility] Address [address] [place] [address]- Care Team Providers Care Meat Supervisor Name Role Phone Shai HENDERSON, Elijah Primary Care Physician [id number] Date(s): 03/30/19 - 07/28/[address] [address]- [facility] Attending Physician: Michael Bennett MD Referring Physician: Valerio WAITE, Nicky Ríos Allergies, Adverse Reactions, Alerts Substance Reaction Severity Status Zoloft Active Thorazine Active traZODone Active ZyPREXA Active PROzac Active SEROquel Active Medications albuterol CFC free 90 mcg/inh inhalation aerosol 2, puffs, Inhalation, Every 4 hours, PRN, # 18 Gm, Refills 3, Tot. Refills 3, Maintenance, 02/13/1911:48:23 EST, Aerosol, Route to Pharmacy Electronically, [id number], [facility]/pharmacy #[id number] Start Date: 02/13/19 Status: Ordered busPIRone 15 mg oral tablet 1 tablet = 15 mg, By Mouth, 3 times a day, # 90 tablet, 0 Refills, Maintenance, 02/28/19 12:08:43 EST, Tablet, [facility]/pharmacy #[id number], 183, cm, 02/28/19 11:39:08 EST, Height, 124, kg, 02/22/19 8:26:27 EST, Dry Weight Start Date: 02/28/19 Status: Ordered divalproex sodium 500 mg oral enteric coated tablet 1 tablet = 500 mg, By Mouth, 2 times a day, # 60 tablet, 1 Refills, Maintenance, 02/28/19 12:11:45 EST, EC Tablet, [facility]/pharmacy #[id number], 183, cm, 02/28/19 11:39:08 EST, Height, 124, kg, 02/22/19 8:26:27 EST, Dry Weight Start Date: 02/28/19 Status: Ordered Excedrin Express oral tablet 2 tablet, By Mouth, Every 8 hours, PRN for headache, # 50 tablet, 0 Refills, Maintenance, 12/19/18 19:47:59 EDT, Tablet Start Date: 12/19/18 Status: Ordered Flomax 0.4 mg oral capsule 0.4 mg, 1, capsule, By Mouth, Daily, # 30 capsule, Refills 0, Tot. Refills 0, Maintenance, 198:58:23 EST, Route to Pharmacy Electronically, [id number], [facility]/pharmacy #[id number], 183, cm, 02/17/19 8:22:07 EST, Height, 127, kg... Start Date: 02/17/19 Status: Ordered fluticasone 50 mcg/inh nasal spray 2 sprays, Nares, Both, 2 times a day, # 9.9 mL, 0 Refills, Maintenance, 11/15/18 14:21:09 EDT, [place], 2 sprays Nares, Both 2 times a day Start Date: 11/15/18 Status: Ordered gabapentin 100 mg oral capsule 100 mg, 1, capsule, By Mouth, Daily at bedtime, # 30 capsule, Refills 0, Tot. Refills 0, Maintenance, 02/28/19 12:13:04 EST, Route to Pharmacy Electronically, [facility]/pharmacy #[id number], 183, cm, 02/28/19 11:39:08 EST, Height, 124, kg, 02/22/19 8:26:27 EST, D... Start Date: 02/28/19 Status: Ordered levothyroxine 0.05 mg oral tablet 1 tablet = 50 mcg, By Mouth, Daily, # 30 tablet, 0 Refills, Maintenance, 12/09/18 17:02:46 EDT, Tablet Start Date: 12/09/18 Status: Ordered Protonix 40 mg oral delayed release tablet = 40 mg, By Mouth, 2 times a day, # 60 tablet, 2 Refills, Maintenance, 11/15/18 14:21:31 EDT, EC Tablet Start Date: 11/15/18 Status: Ordered Problem List Condition Effective Dates Status Health Status Inform ant Allergic rhinitis(Confirmed) Active Asthma(Confirmed) Active Bipolar disorder with depression(Confirmed) Active GERD (gastroesophageal reflu x disease)(Confirmed) Active Generalized anxiety disorder(Confirmed) Active Hypothyroidism(Confirmed) Active Social History Social History Type Response Smoking Status 5-9 cigarettes (betw een 1/4 to 1/2 pack)/day in last 30 days; Tobacco user in household: No entered on: 02/28/19 Sex
--- OUTSIDE RECORDS SUMMARY | 2022-10-14 11:47 | XMS_ITS | Continuity of Care Document ---
Author Name Unknown Organization [facility] Address [address] [place] [address]- Care Team Providers Care Seed Sales Manager Name Role Phone Elijah Gibbons MD Primary Care Physician [phone] Encounter [facility] Date(s): 02/28/19 - 03/10/19 [facility] [place] [address] [place] [address]- [facility] Attending Physician: Admtr, Ar8 Admitting Physician: Admtr, Ar8 Referring Physician: Admtr, Ar8 Allergies, Adverse Reactions, Alerts Substance Reaction Severity Status Zoloft Active Thorazine Active traZODone Active ZyPREXA Active PROzac Active SEROquel Active Medications albuterol CFC free 90 mcg/inh inhalation aerosol 2, puffs, Inhalation, Every 4 hours, PRN, # 18 Gm, Refills 3, Tot. Refills 3, Maintenance, 02/13/1911:48:23 EST, Aerosol, Route to Pharmacy Electronically, [id number], [facility]/pharmacy #[id number] Start Date: 02/13/19 Status: Ordered busPIRone 15 mg oral tablet 1 tablet = 15 mg, By Mouth, 3 times a day, # 90 tablet, 0 Refills, Maintenance, 02/28/19 12:08:43 EST, Tablet, [facility]/pharmacy #1111, 183, cm, 02/28/19 11:39:08 EST, Height, 124, kg, 02/22/19 8:26:27 EST, Dry Weight Start Date: 02/28/19 Status: Ordered divalproex sodium 500 mg oral enteric coated tablet 1 tablet = 500 mg, By Mouth, 2 times a day, # 60 tablet, 1 Refills, Maintenance, 02/28/19 12:11:45 EST, EC Tablet, [facility]/pharmacy #[id number], 183, cm, 02/28/19 11:39:08 EST, Height, [...] Maintenance, 198:58:23 EST, Route to Pharmacy Electronically, [id number], [facility]/pharmacy #1111, 183, cm, 02/17/19 8:22:07 EST, Height, 127, kg... Start Date: 02/17/19 Status: Ordered fluticasone 50 mcg/inh nasal spray 2 sprays, Nares, Both, 2 times a day, # 9.9 mL, 0 Refills, Maintenance, 11/15/18 14:21:09 EDT, [place], 2 sprays Nares, Both 2 times a day Start Date: 11/15/18 Status: Ordered gabapentin 100 mg oral capsule 100 mg, 1, capsule, By Mouth, Daily at bedtime, # 30 capsule, Refills 0, Tot. Refills 0, Maintenance, 02/28/19 12:13:04 EST, Route to Pharmacy Electronically, [facility]/pharmacy #[id number], 183, cm, 02/28/19 11:39:08 EST, Height, 124, kg, 02/22/19 8:26:27 EST, D... Start Date: 02/28/19 Status: Ordered hydrOXYzine hydrochloride 50 mg oral tablet 1 tablet = 50 mg, By Mouth, 4 times a day, PRN for anxiety, # 40 tablet, 0 Refills, Acute 03/21/19 12:10:00 EST, 02/28/19 12:09:57 EST, Tablet, [facility]/pharmacy #[id number], 183, cm, 02/28/19 11:39:08 EST, Height, 124, kg, 02/22/19 8:26:27 EST, Dry Weight Start Date: 02/28/19 Stop Date: 03/21/19 Status: Ordered levothyroxine 0.05 mg oral tablet [...]
--- OUTSIDE RECORDS SUMMARY | 2022-10-14 11:47 | XMS_ITS | Continuity of Care Document ---
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 Role Phone Soto RAMIREZ MD, Bal Serrano Primary Care Physician Encounter [facility] Date(s): 01/08/22 - 01/08/[address] [address]- Encounter Diagnosis Vomiting(Final) - 01/08/22 Discharge Disposition: A-D/C Home Attending Physician: Bal Bassett DO Admitting Physician: Bal Bassett DO Referring Physician: Not on Staff, Referring MD Allergies, Adverse Reactions, Alerts Substance Reaction Severity Status Zoloft Active Thorazine Active traZODone Active ZyPREXA Active Immunizations Given and Recorded Vaccine Date Status Refusal Reason influenza virus vaccine, inactivated 01/11/21 Sandro rded influenza virus vaccine, inactivated 12/27/17 Sandro rded influenza virus vaccine, inactivated 04/28/16 Sandro rded SARS-CoV-2 (COVID-19) mRNA BNT-162b2 vac 09/19/20 Recorded SARS-CoV-2 (COVID-19) mRNA BNT-162b2 vac 08/29/20 Recorded tetanus-diphtheria toxoids (Td) 12/14/18 Recorded tetanus/diphtheria/pertussis, acel(Tdap) 05/18/18 Recorded tetanus/diphtheria/pertussis, acel(Tdap) 12/19/16 Recorded Medications ALPRAZolam 1 mg oral tablet 1 tablet = 1 mg, By Mouth, 3 times a day, PRN for anxiety, for 6 days, # 18 tablet, 2 Refills, Acute 01/19/22 15:58:00 EST, 01/01/22 15:58:00 EDT, Tablet, [facility] #[id number], Partial fill upon patient request if the prescription is for a sche... Start Date: 01/01/22 Stop Date: 01/19/22 Status: Ordered apixaban = 5 mg, By Mouth, 2 times a day, 0 Refills, Maintenance, 01/02/22 9:28:00 EDT, Tablet, Partial fillupon patient request if the prescription is for a schedule II opioid drug. Start Date: 01/02/22 Status: Ordered ARIPiprazole 30 mg oral tablet 1 tablet = 30 mg, By Mouth, Daily, # 14 tablet, 1 Refills, Maintenance, 01/01/22 15:55:00 EDT, Tablet, [facility] #[id number], Partial fill upon patient request if the prescription is for a schedule II opioid drug., 186, cm, 01/01/22 11:49:00 EDT... Start Date: 01/01/22 Stop Date: 01/29/22 Status: Ordered benztropine 1 mg oral tablet 1 mg, 1, tablet, By Mouth, Daily, # 14 tablet, Refills 1, Tot. Refills 1, Maintenance, 01/01/22 15:54:00 EDT, Route to Pharmacy Electronically, [facility] #[id number], Partial fill upon patient request if the prescription is for a schedule II opi... Start Date: 01/01/22 Stop Date: 01/29/22 Status: Ordered busPIRone 15 mg oral tablet 1 tablet = 15 mg, By Mouth, 3 times a day, # 30 tablet, 2 Refills, Maintenance, 01/01/22 15:55:00 EDT, Tablet, [facility] #[id number], Partial fill upon patient request if the prescription is for a schedule II opioid drug., 186, cm, 01/01/22 11:4... Start Date: 01/01/22 Stop Date: 01/31/22 Status: Ordered calcium carbonate 500 mg (200 mg elemental calcium) oral tablet, chewable 500 mg, 1, tablet, By Mouth, 2 times a day, Maintenance, 03/04/21 13:43:00 EST, Partial fill upon patient request if the prescription is for a schedule II opioid drug. Start Date: 03/04/21 Status: Ordered cetirizine 10 mg oral tablet 1 tablet = 10 mg, By Mouth, Daily, Maintenance, 03/04/21 13:44:00 EST, Tablet, Partial fill upon patient request if the prescription is for a schedule II opioid drug. Start Date: 03/04/21 Status: Ordered cloNIDine 0.2 mg oral tablet 0.2 mg, 1, tablet, By Mouth, 2 times a day, # 20 tablet, Refills 2, Tot. Refills 2, Maintenance, 01/01/22 15:56:00 EDT, Route to Pharmacy Electronically, [facility] #[id number], Partial fill upon patient request if the prescription is for a sched... Start Date: 01/01/22 Stop Date: 01/31/22 Status: Ordered Combivent Respimat 20 mcg-100 mcg/inh inhalation aerosol 1 puffs, Inhalation, 4 times a day, Maintenance, 03/04/21 13:40:00 EST, Aerosol, Partial fill upon patient request if the prescription is for a schedule II opioid drug. Start Date: 03/04/21 Status: Ordered divalproex sodium 500 mg oral enteric coated tablet = 1,000 mg, By Mouth, 2 times a day, # 40 tablet, 2 Refills, Maintenance, 01/01/22 15:54:00 EDT, Tablet, [facility] #[id number], Partial fill upon patient request if the prescription is for a schedule II opioid drug., 186, cm, 01/01/22 11:49:00 E... Start Date: 01/01/22 Stop Date: 01/31/22 Status: Ordered docusate sodium 100 mg oral capsule 100 mg, 1, capsule, By Mouth, 2 times a day, # 60 capsule, Refills 0, Tot. Refills 0, Maintenance, 06/20/21 23:57:00 EDT, Route to Pharmacy Electronically, [facility] #[id number], Partial fill upon patient request if the prescription is for a salima... Start Date: 06/20/21 Status: Ordered furosemide 40 mg oral tablet 80 mg, 2, tablet, By Mouth, Daily, # 14 tablet, Refills 1, Tot. Refills 1, Maintenance, 01/02/22 9:27:00 EDT, Route to Pharmacy Electronically, [facility] #[id number], Partial fill upon patient request if the prescription is for a schedule II opi... Start Date: 01/02/22 Stop Date: 01/16/22 Status: Ordered hydrOXYzine pamoate 25 mg oral capsule 2 capsule = 50 mg, By Mouth, 3 times a day, PRN Anxiety, for 7 days, # 30 capsule, 2 Refills, Acute01/22/22 15:54:00 EST, 01/01/22 15:54:00 EDT, Capsule, [facility] #[id number], Partial fill upon patient request if the prescription is for a sche... Start Date: 01/01/22 Stop Date: 01/22/22 Status: Ordered levothyroxine 0.05 mg oral tablet 1 tablet = 50 mcg, By Mouth, Daily, # 14 tablet, 1 Refills, Maintenance, 01/02/22 9:22:00 EDT, Tablet, [facility] #[id number], Partial fill upon patient request if the prescription is for a schedule II opioid drug., 186, cm, 01/02/22 8:00:00 EDT,... Start Date: 01/02/22 Stop Date: 01/30/22 Status: Ordered pantoprazole 40 mg oral delayed release tablet = 40 mg, By Mouth, 2 times a day, # 20 tablet, 1 Refills, Maintenance, 01/01/22 15:54:00 EDT, EC Tablet, 186, cm, 01/01/22 11:49:00 EDT, Height, 109, kg, 12/31/21 15:11:00 EDT, Dry Weight Start Date: 01/01/22 Stop Date: 01/21/22 Status: Ordered pregabalin 50 mg oral capsule 4 capsule = 200 mg, By Mouth, 2 times a day, # 56 capsule, 2 Refills, Maintenance, 01/01/22 15:54:00 EDT, Capsule, [facility] #[id number], Partial fill upon patient request if the prescription is for a schedule II opioid drug., 186, cm, 01/01/22... Start Date: 01/01/22 Stop Date: 01/22/22 Status: Ordered Singulair = 10 mg, By Mouth, Daily, 0 Refills, Maintenance, 05/21/20 9:45:00 EST, Partial fill upon patient request if the prescription is for a schedule II opioid drug. Start Date: 05/21/20 Status: Ordered Soma 350 mg oral tablet 350 mg, 1, tablet, By Mouth, 3 times a day, for 5 days, As needed for muscle spasm. Causes drowsiness, use with caution. Do not drink alcohol or drive while taking. Do not combine with other sedatingmedications., # 15 tablet, Refills 0, Tot. Refills... Start Date: 01/07/22 Stop Date: 01/12/22 Status: Ordered tiZANidine 4 mg oral tablet 4 mg, 1, tablet, By Mouth, 2 times a day, PRN, # 20 tablet, Refills 1, Tot. Refills 1, Maintenance,Spasm, 01/02/22 9:33:00 EDT, Route to Pharmacy Electronically, [facility] #[id number], Partialfill upon patient request if the prescription is fo... Start Date: 01/02/22 Stop Date: 01/22/22 Status: Ordered Problem List Condition Confirmation Course Effective Dates Status H ealth Status Informant Allergic rhinitis Confirmed Active Asthma Confirmed Active Bipolar disorder with depression Confirmed Active GERD (gastroesophageal reflux disease) Confirmed Active Generalized anxiety disorder Confirmed Active Hypothyroidism Confirmed Active Obese class I Confirmed Active Vital Signs Most recent to oldest [Reference Range]: 1 2 3 Height 183 cm (01/08/22 2:01 AM) 183 cm (01/08/22 1:01 AM) 183 cm (01/08/22 12:48 AM) Weight 104.1 kg (01/08/22 2:01 AM) 104.1 kg (01/08/22 1:01 AM) 104.1 kg (01/08/22 12:48 AM) Oxygen Saturation [94-100 %] 100 % (01/08/22 12:37 AM) Pulse Rate [55-90 bpm] 79 bpm (01/08/22 12:37 AM) Body Mass Index [18.5-24.99 kg/m2] 31.08 kg/m2 *>HHI* (01/08/22 12:48 AM) 31.08 kg/m2 *>HHI* (01/08/22 12:38 AM) Blood Pressure [90-138/55-84 mm Hg] 139/83mm Hg *H* (01/08/22 12:37 AM) Respiratory Rate [16-30 br/min] 17 br/min (01/08/22 12:37 AM) Temperature [96.8-100.4 DegF] 98.1 DegF (01/08/22 12:37 AM) Mode of Delivery (Oxygen) Room air (01/08/22 12:37 AM) Blood pressure sites Arm, right (01/08/22 12:37 AM) Temperature Route Oral (01/08/22 12:37 AM) Dry Weight 104.1 kg (01/08/22 2:01 AM) 104.1 kg (01/08/22 1:01 AM) 104.1 kg (01/08/22 12:48 AM) Weight Obtained Via Standing scale (01/08/22 12:38 AM) Dry Weight Obtained Via Standing scale (01/08/22 12:38 AM) Social History Social History Type Response Smoking Status 10 or more cigarette s (1/2 pack or more)/day in last 30 days entered on: 06/10/21 Sex Implantable Device List Procedure Provider Procedure Date Device Type Site Repair Hernia Ventral Laparoscopic Gus Vivas MD 09/13/20 Unknown Abdomen Device Identifier Serial Number Lot or Batch Number Manufacturing Date Expiration Date Distinct Identification Code MRI Safety Implantable Status 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 [id number] Unknown [id number] Unknown 03/11/21 Unknown Unknown Active GS1 Patient Care team information Personnel Name: Soto RAMIREZ MD, Bal Serrano Address: Address: [address] [place] [id number]
--- OUTSIDE RECORDS SUMMARY | 2022-10-14 11:47 | XMS_ITS | Continuity of Care Document ---
Author Name Unknown Organization 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 Refills 0, Acute, for pain, 10/27/20 15:27:00 EDT, 10/22/20 15:27:00 EDT, Route to Pharmacy Electronically, [facility] #[id number] Tablet, Partial fill upon patient... Start Date: 10/22/20 Stop Date: 10/27/20 Status: Ordered Advair Diskus 250 mcg-50 mcg inhalation powder [...] 02/13/1911:48:23 EST, Aerosol, Route to Pharmacy Electronically, [id number], [facility]/pharmacy #[id number] Start Date: 02/13/19 Status: Ordered Ambien 10 mg oral tablet 1 tablet = 10 mg, By Mouth, Daily at bedtime, 0 Refills, Maintenance, 09/13/20 10:09:00 EDT, Partial fill upon patient request if the prescription is for a schedule II opioid drug. Start Date: 09/13/20 Status: Ordered amitriptyline 100 mg oral tablet 1 tablet = 100 mg, By Mouth, Daily at bedtime, # 7 tablet, 3 Refills, Maintenance, 04/15/20 10:15:00 EST, Tablet, [facility] #[id number], Partial fill upon patient request if the prescription isfor a schedule II opioid drug., 183, cm, 04/15/20 0... Start Date: 04/15/20 Stop Date: 05/13/20 Status: Ordered amitriptyline 25 mg oral tablet 75 mg, 3, tablet, By Mouth, Daily, # 21 tablet, Refills 3, Tot. Refills 3, Maintenance, 04/13/20 14:55:00 EST, Route to Pharmacy Electronically, [facility] #[id number], Partial fill upon patientrequest if the prescription is for a schedule II op... Start Date: 04/13/20 Stop Date: 05/11/20 Status: Ordered baclofen 10 mg oral tablet 20 mg, 2, tablet, By Mouth, 2 times a day, # 56 tablet, Refills 1, Tot. Refills 1, Maintenance, 04/13/20 14:54:00 EST, Route to Pharmacy Electronically, [facility] #[id number], Partial fill uponpatient request if the prescription is for a schedu... Start Date: 04/13/20 Stop Date: 05/11/20 Status: Ordered busPIRone 15 mg oral tablet 1 tablet = 15 mg, By Mouth, 3 times a day, # 42 tablet, 1 Refills, Maintenance, 04/13/20 14:56:00 EST, Tablet, [facility] #[id number], Partial fill upon patient request if the prescription is for a schedule II opioid drug., 183, cm, 04/13/20 9:04... Start Date: 04/13/20 Stop Date: 05/11/20 Status: Ordered cloNIDine 0.1 mg oral tablet 0.1 mg, 1, tablet, By Mouth, 2 times a day, # 10 tablet, Refills 0, Tot. Refills 0, Maintenance, 10/22/20 15:02:00 EDT, Route to Pharmacy Electronically, [facility] #[id number], Partial fill upon patient request if the prescription is for a sched... Start Date: 10/22/20 Stop Date: 10/27/20 Status: Ordered Compression Stockings See Instructions, # 2 each, Refills 2, Tot. Refills 2, Maintenance, surgical, knee length 20-30 mm Hg Dx: I83.899, 08/28/20 14:44:00 EDT, Supply Start Date: 08/28/20 Status: Ordered Depakote 500 mg oral enteric [...] 09/13/20 14:45:00 EDT, Route to Pharmacy Electronically, [facility] #[id number], Partial fill upon patient request if the prescription is for a salima... Start Date: 09/13/20 Status: Ordered Flomax 0.4 mg oral capsule 0.4 mg, 1, capsule, By Mouth, Daily, # 30 capsule, Refills 0, Tot. Refills 0, Maintenance, 10/22/2121:52:00 EDT, Route to Pharmacy Electronically, [facility] #[id number], Partial fill upon patient request if the prescription is for a schedule II... Start Date: 10/22/20 Status: Ordered fluticasone 50 mcg/inh nasal spray 2 sprays, Nares, Both, 2 times a day, # 9.9 mL, 0 Refills, Maintenance, 11/15/18 14:21:09 EDT, [place], 2 sprays Nares, Both 2 times a day Start Date: 11/15/18 Status: Ordered furosemide 20 mg oral tablet 20 mg, 1, tablet, By Mouth, Daily, Refills 0, Maintenance, 05/28/20 15:49:00 EDT, Partial fill uponpatient request if the prescription is for a schedule II opioid drug. Start Date: 05/28/20 Status: Ordered nicotine 14 mg/24 hr transdermal film, extended release 1 patch, Topically, Daily, # 30 patch, 0 Refills, Acute 05/28/21 9:00:00 EDT, 05/28/20 15:55:00 EDT, Patch, [facility] #[id number], Partial fill upon patient request if the prescription is for aschedule II opioid drug., 1 patch Topically Daily,... Start Date: 05/28/20 Stop Date: 05/28/21 Status: Ordered propranolol 40 mg oral tablet 40 mg, 1, tablet, By Mouth, 2 times a day, # 28 tablet, Refills 1, Tot. Refills 1, Maintenance, 04/13/20 14:56:00 EST, Route to Pharmacy Electronically, [facility] #[id number], Partial fill uponpatient request if the prescription is for a schedu... Start Date: 04/13/20 Stop Date: 05/11/20 Status: Ordered Protonix 40 mg oral delayed [...] 04/13/20 14:57:00 EST, Route to Pharmacy Electronically, [facility] #[id number], Partial fill upon patient request if the prescription is for a schedul... Start Date: 04/13/20 Stop Date: 05/11/20 Status: Ordered Singulair = 10 mg, By Mouth, Daily, 0 Refills, Maintenance, 05/21/20 9:45:00 EST, Partial fill upon patient request if the prescription is for a schedule II opioid drug. Start Date: 05/21/20 Status: Ordered traMADol 50 mg oral tablet 1 tablet = 50 mg, By Mouth, Every 12 hours, PRN for pain, # 10 tablet, 0 Refills, Maintenance, 07/27/20 19:15:00 EDT, Tablet, [facility] #[id number], Partial fill upon patient request if the prescription is for a schedule II opioid drug., 184, cm... Start Date: 07/27/20 Status: Ordered Xanax 1 mg oral tablet [...] Active Generalized anxiety disorder(Confirmed) Active Hypothyroidism(Confirmed) Active Vital Signs Most recent to oldest [Reference Range]: 1 2 Height 182 cm (10/22/20 1:26 PM) Weight 146 kg (10/22/20 1: PM) Oxygen Saturation [94-100 %] 97 % (10/22/20 3:18 PM) 97 % (10/22/20 1: PM) Pulse Rate [55-90 bpm] 128 bpm *H* (10/22/20 3:18 PM) 130 bpm *H* (10/22/20 1:26 PM) Blood Pressure [90-138/55-84 mm Hg] 153/ 110mm Hg *H* (10/22/20 3:18 PM) 135/88mm Hg (10/22/20 1:26 PM) Respiratory Rate [16-30 br/min] 18 br/mi n (10/22/20 3:18 PM) 18 br/min (10/22/20 1:26 PM) Temperature [96.8-100.4 DegF] 98.2 DegF (10/22/20 1:26 PM) Mode of Delivery (Oxygen) Room air (10/22/20 3:18 PM) Room air (10/22/20 1:26 PM) Dry Weight 146 kg (10/22/20 1:26 PM) Social History Social History Type Response Tobacco Use: 1PPD. Sex Medical Equipment Implanted Date:09/13/20Target Site:Abdomen Description Quantity MRI Company Model MESH VENTRALIGHT ECHO ELLIPS 4 - BARD ([id number]) 1 Bard Unknown HAYDEE:{01}[id number] Assigning Author ity:FDA
--- OUTSIDE RECORDS SUMMARY | 2022-10-14 11:47 | XMS_ITS | Continuity of Care Document ---
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 Role Phone Soto RAMIREZ MD, Bal Serrano Primary Care Physician Encounter [facility] Date(s): 08/13/20 - 09/18/20 [facility] [address] [place] [address]- Attending Physician: Darren Diaz MD Admitting Physician: Darren Diaz MD Referring Physician: Isaiah aLng MD Allergies, Adverse Reactions, Alerts Substance Reaction [...] 02/13/1911:48:23 EST, Aerosol, Route to Pharmacy Electronically, [id number], [facility]/pharmacy #1111 Start Date: 02/13/19 Status: Ordered Ambien [...] 3 Refills, Maintenance, 04/15/20 10:15:00 EST, Tablet, [facility] #[id number], Partial fill upon patient request if the prescription isfor a schedule II opioid drug., 183, cm, 04/15/20 0... Start Date: 04/15/20 Stop Date: 05/13/20 Status: Ordered amitriptyline 25 mg oral tablet 75 mg, 3, tablet, By Mouth, Daily, # 21 tablet, Refills 3, Tot. Refills 3, Maintenance, 04/13/20 14:55:00 EST, Route to Pharmacy Electronically, [facility] #[id number], Partial fill upon patientrequest if the prescription is for a schedule II op... Start Date: 04/13/20 Stop Date: 05/11/20 Status: Ordered baclofen 10 mg oral tablet 20 mg, 2, tablet, By Mouth, 2 times a day, # 56 tablet, Refills 1, Tot. Refills 1, Maintenance, 04/13/20 14:54:00 EST, Route to Pharmacy Electronically, [facility] #[id number], Partial fill uponpatient request if the prescription is for a schedu... Start Date: 04/13/20 Stop Date: 05/11/20 Status: Ordered busPIRone 15 mg oral tablet 1 tablet = 15 mg, By Mouth, 3 times a day, # 42 tablet, 1 Refills, Maintenance, 04/13/20 14:56:00 EST, Tablet, [facility] #[id number], Partial fill upon patient request if the prescription is for a schedule II opioid drug., 183, cm, 04/13/20 9:04... Start Date: 04/13/20 Stop Date: 05/11/20 Status: Ordered CeleBREX 100 mg oral capsule 1 capsule = 100 mg, By Mouth, 2 times a day, # 15 capsule, 0 Refills, Maintenance, 07/27/20 19:07:00 EDT, Capsule, [facility] #[id number], Partial fill upon patient request if the prescription is for a schedule II opioid drug., 184, cm, 07/27/20... Start Date: 07/27/20 Status: Ordered Compression Stockings See Instructions, # 2 each, Refills 2, Tot. Refills 2, Maintenance, surgical, knee length 20-30 mm Hg Dx: I83.899, 08/28/20 14:44:00 EDT, Supply Start Date: 08/28/20 Status: Ordered docusate sodium 100 mg oral capsule 100 mg, 1, capsule, By Mouth, 2 times a day, # 60 capsule, Refills 0, Tot. Refills 0, Maintenance, 09/13/20 14:45:00 EDT, Route to Pharmacy Electronically, [facility] #[id number], Partial fill upon patient request if the prescription is for a salima... Start Date: 09/13/20 Status: Ordered fluticasone 50 mcg/inh nasal spray 2 sprays, Nares, Both, 2 times a day, # 9.9 mL, 0 Refills, Maintenance, 11/15/18 14:21:09 EDT, Early, 2 sprays Nares, Both 2 times a day Start Date: 11/15/18 Status: Ordered furosemide 20 mg oral tablet 20 mg, 1, tablet, By Mouth, Daily, Refills 0, Maintenance, 05/28/20 15:49:00 EDT, Partial fill uponpatient request if the prescription is for a schedule II opioid drug. Start Date: 05/28/20 Status: Ordered ibuprofen 600 mg oral tablet 600 mg, 1, tablet, By Mouth, 3 times a day, PRN, # 30 tablet, Refills 0, Tot. Refills 0, Acute 09/20/20 14:44:00 EDT, Pain , Mild, 09/13/20 14:44:00 EDT, Route to Pharmacy Electronically, [facility] #[id number], Partial fill upon patient request... Start Date: 09/13/20 Stop Date: 09/20/20 Status: Ordered nicotine 14 mg/24 hr transdermal film, extended release 1 patch, Topically, Daily, # 30 patch, 0 Refills, Acute 05/28/21 9:00:00 EDT, 05/28/20 15:55:00 EDT, Patch, [facility] #[id number], Partial fill upon patient request if the prescription is for aschedule II opioid drug., 1 patch Topically Daily,... Start Date: 05/28/20 Stop Date: 05/28/21 Status: Ordered oxyCODONE 5 mg oral tablet 5 mg, 1, tablet, By Mouth, Every 6 hours, PRN, # 20 tablet, Refills 0, Tot. Refills 0, Acute 09/20/20 14:45:00 EDT, Pain , Severe, 09/13/20 14:44:00 EDT, Route to Pharmacy Electronically, [facility] #[id number], Partial fill upon patient request... Start Date: 09/13/20 Stop Date: 09/20/20 Status: Ordered oxyCODONE 5 mg oral tablet 5 mg, 1, tablet, By Mouth, Every 6 hours, PRN, Take as directed. Not to be taken with hydrocodone or tramadol., # 20 tablet, Refills 0, Tot. Refills 0, Acute 09/24/20 10:08:00 EDT, Pain , Severe, 09/17/20 10:08:00 EDT, Route to Pharmacy [facility]... Start Date: 09/17/20 Stop Date: 09/24/20 Status: Ordered propranolol 40 mg oral tablet 40 mg, 1, tablet, By Mouth, 2 times a day, # 28 tablet, Refills 1, Tot. Refills 1, Maintenance, 04/13/20 14:56:00 EST, Route to Pharmacy Electronically, [facility] #[id number], Partial fill uponpatient request if the prescription [...] 04/13/20 14:57:00 EST, Route to Pharmacy Electronically, [facility] #[id number], Partial fill upon patient request if the prescription is for a schedul... Start Date: 04/13/20 Stop Date: 05/11/20 Status: Ordered Singulair = 10 mg, By Mouth, Daily, 0 Refills, Maintenance, 05/21/20 9:45:00 EST, Partial fill upon patient request if the prescription is for a schedule II opioid drug. Start Date: 05/21/20 Status: Ordered topiramate 200 mg oral tablet 1 tablet = 200 mg, By Mouth, 2 times a day, # 28 tablet, 1 Refills, Maintenance, 04/13/20 14:55:00 EST, Tablet, [facility] #[id number], Partial fill upon patient request if the prescription is for a schedule II opioid drug., 183, cm, 04/13/20 9:0... Start Date: 04/13/20 Stop Date: 05/11/20 Status: Ordered traMADol 50 mg oral tablet 1 tablet = 50 mg, By Mouth, Every 12 hours, PRN for pain, # 10 tablet, 0 Refills, Maintenance, 07/27/20 19:15:00 EDT, Tablet, [facility] #[id number], Partial fill upon patient request if the [...] Active Social History Social History Type Response Tobacco Use: 1PPD. Sex Medical Equipment Implanted Date:09/13/20Target Site:Abdomen Description Quantity MRI Company Model MESH VENTRALIGHT ECHO ELLIPS 4 - BARD ([id number]) 1 Bard Unknown HAYDEE:{01}[id number] Assigning Author ity:FDA
--- OUTSIDE RECORDS SUMMARY | 2022-10-14 11:47 | XMS_ITS | Continuity of Care Document ---
Author Name Unknown Organization [facility] Address [address] [place] [address]- Care Team Providers Care Founding Partner Name Role Phone Elijah Gibbons MD Primary Care Physician [phone] Encounter [facility] Date(s): 10/11/19 - 10/11/[address] [address]- [facility] Discharge Disposition: A-D/C Home Attending Physician: Triston Saravia MD Admitting Physician: Triston Saravia MD Referring Physician: Not on Staff, Referring MD Allergies, Adverse Reactions, Alerts Substance Reaction Severity Status Zoloft Active Thorazine Active traZODone Active ZyPREXA Active PROzac Active SEROquel Active Medications albuterol CFC free 90 mcg/inh inhalation aerosol 2, puffs, Inhalation, Every 4 hours, PRN, # 18 Gm, Refills 3, Tot. Refills 3, Maintenance, 02/13/1911:48:23 EST, Aerosol, Route to Pharmacy Electronically, [id number], [facility]/pharmacy #1111 Start Date: 02/13/19 Status: Ordered busPIRone 15 mg oral tablet 1 tablet = 15 mg, By Mouth, 3 times a day, # 90 tablet, 0 Refills, Maintenance, 02/28/19 12:08:43 EST, Tablet, [facility], 183, cm, 02/28/19 11:39:08 EST, Height, 124, kg, 02/22/19 8:26:27 EST, Dry Weight Start Date: 02/28/19 Status: Ordered cloNIDine 0.3 mg oral tablet 1 tablet = 0.3 mg, By Mouth, Daily, 0 Refills, Maintenance, 10/11/19 16:51:00 EDT Start Date: 10/11/19 Status: Ordered Compression Stockings See Instructions, # 2 each, Maintenance, surgical, calf length 30-40 mm Hg, 10/11/19 18:28:00 EDT, Supply, 183, cm, 10/11/19 16:40:00 EDT, Height, 140.9, kg, 10/11/19 16:40:00 EDT, Dry Weight Start Date: 10/11/19 Status: Ordered divalproex sodium 500 mg oral enteric coated tablet 1 tablet = 500 mg, By Mouth, 2 times a day, # 60 tablet, 1 Refills, Maintenance, 02/28/19 12:11:45 EST, EC Tablet, [facility]/pharmacy #1111, 183, cm, 02/28/19 11:39:08 EST, Height, 124, kg, 02/22/19 8:26:27 EST, Dry Weight Start Date: 02/28/19 Status: Ordered Flomax 0.4 mg oral capsule 0.4 mg, 1, capsule, By Mouth, Daily, # 30 capsule, Refills 0, Tot. Refills 0, Maintenance, 198:58:23 EST, Route to Pharmacy Electronically, [id number], [facility]/pharmacy #1111, 183, cm, 02/17/19 8:22:07 EST, Height, 127, kg... Start Date: 02/17/19 Status: Ordered fluticasone 50 mcg/inh nasal spray 2 sprays, Nares, Both, 2 times a day, # 9.9 mL, 0 Refills, Maintenance, 11/15/18 14:21:09 EDT, [place], 2 sprays Nares, Both 2 times a day Start Date: 11/15/18 Status: Ordered gabapentin 800 mg oral tablet 1 tablet = 800 mg, By Mouth, 3 times a day, # 90 tablet, 1 Refills, Maintenance, 10/05/19 17:25:00 EDT, Tablet, [facility]/pharmacy #1111, 183, cm, 10/05/19 16:47:00 EDT, Height, 137.1, kg, 10/05/19 16:47:00 EDT, Dry Weight Start Date: 10/05/19 Status: Ordered Keflex monohydrate 500 mg oral capsule 1 capsule = 500 mg, By Mouth, 4 times a day, for 7 days, # 28 capsule, 0 Refills, Acute 10/17/19 19:34:00 EDT, 10/10/19 19:34:00 EDT, Capsule, [facility]/pharmacy #1111, 183, cm, 10/10/19 19:09:00 EDT, Height, 138.6, kg, 10/10/19 19:09:00 EDT, Dry Weight Start Date: 10/10/19 Stop Date: 10/17/19 Status: Ordered Lasix 20 mg oral tablet 20 mg, 1, tablet, By Mouth, Daily, # 30 tablet, Refills 0, Tot. Refills 0, Maintenance, 10/10/19 19:34:00 EDT, Route to Pharmacy Electronically, [facility]/pharmacy #1111, 183, cm, 10/10/19 19:09:00 EDT, Height, 138.6, kg, 10/10/19 19:09:00 EDT, Dry Weight Start Date: 10/10/19 Status: Ordered Lasix 20 mg oral tablet 20 mg, 1, tablet, By Mouth, 2 times a day, # 60 tablet, Refills 1, Tot. Refills 1, Maintenance, 10/05/19 17:26:00 EDT, Route to Pharmacy Electronically, [facility]/pharmacy #1111, 183, cm, 10/05/19 16:47:00EDT, Height, 137.1, kg, 10/05/19 16:47:00 EDT, Dry... Start Date: 10/05/19 Status: Ordered levothyroxine 0.05 mg oral tablet 1 tablet = 50 mcg, By Mouth, Daily, # 30 tablet, 0 Refills, Maintenance, 12/09/18 17:02:46 EDT, Tablet Start Date: 12/09/18 Status: Ordered Lotrimin AF 2% topical powder 1 application, Topically, 2 times a day, # 105 Gm, 0 Refills, Acute 10/24/19 18:28:00 EDT, 10/10/2017:27:00 EDT, Powder, [facility]/pharmacy #1111, 1 application Topically 2 times a day, 183, cm, 10/11/19 16:40:00 EDT, Height, 140.9, kg, 10/11/19 16:40:00 E... Start Date: 10/11/19 Stop Date: 10/24/19 Status: Ordered melatonin 5 mg oral capsule 2 capsule = 10 mg, By Mouth, Daily at bedtime, 0 Refills, Maintenance, 10/11/19 16:45:00 EDT Start Date: 10/11/19 Status: Ordered Propranolol 80 mg, Daily, Refills 0, Maintenance, 10/11/19 16:51:00 EDT Start Date: 10/11/19 Status: Ordered Protonix 40 mg oral delayed release tablet = 40 mg, By Mouth, 2 times a day, # 60 tablet, 2 Refills, Maintenance, 11/15/18 14:21:31 EDT, EC Tablet Start Date: 11/15/18 Status: Ordered traMADol 50 mg oral tablet 2 tablet = 100 mg, By Mouth, Every 6 hours, PRN as needed for pain, # 28 tablet, 0 Refills, Acute 10/15/19 20:00:00 EDT, 10/10/19 19:33:00 EDT, Tablet, [facility]/pharmacy #1111, 183, cm, 10/10/19 19:09:00 EDT, Height, 138.6, kg, 10/10/19 19:09:00 EDT, Dry W... Start Date: 10/10/19 Stop Date: 10/15/19 Status: Ordered Problem List Condition Effective Dates Status Health Status Inform ant Allergic rhinitis(Confirmed) Active Asthma(Confirmed) Active Bipolar disorder with depression(Confirmed) Active GERD (gastroesophageal reflu x disease)(Confirmed) Active Generalized anxiety disorder(Confirmed) Active Hypothyroidism(Confirmed) Active Results Radiology Reports * Exam Date Time Procedure Performing Provider Status 10/11/19 5:10 PM Chest 2 Views Frontal and Lat Carin Nicolas; Cass (Verified) Notes: (Chest 2 Views Frontal and Lat) Reason For Exam: Shortness of Breath RESULT: Chest 2 Views Frontal and Lat Chest 2 Views Frontal and Lat INDICATION / CLINICAL QUESTION: Shortness of breath. Pt states has had lasix increased without improvment- continues to have lower extremity edema. Now having SOB with exertion. COMPARISON: Most recent 12/20/2018 FINDINGS: LINES AND TUBES: None. LUNGS AND PLEURA: Lung volumes are fairly low but there is no evidence of pneumonia or recurrent edema. Bilateral small effusions in the posterior CP angles on the lateral view. No pneumothorax. HEART, MEDIASTINUM AND WAYNE: Normal. BONES AND SOFT TISSUES: No acute abnormality. IMPRESSION: No acute abnormality. WSN: [id number] Ordering Physician: Triston Saravia Dictated By: Alcides Younger MD Dictated Date/Time: 10/11/19 5:13 pm Reviewed By: Alcides Younger MD Signed By: Alcides Younger MD Signed Date/Time: 10/11/19 5:13 pm Transcribed By: RAVINDER Transcribed Date/Time: 10/11/19 5:11 pm Vital Signs Most recent to oldest [Reference Range]: 1 2 3 Height 183 cm (10/11/19 4:40 PM) Weight 140.9 kg (10/11/19 4:40 PM) Oxygen Saturation [94-100 %] 95 % (10/11/19 6:42 PM) 96 % (10/11/19 4:40 PM) Pulse Rate [55-90 bpm] 65 bpm (10/11/19 6:42 PM) 70 bpm (10/11/19 4:40 PM) Blood Pressure [90-138/55-84 mm Hg] 120/75mm Hg (10/11/19 6:42 PM) 98/64mm Hg (10/11/19 5:19 PM) 102/68mm Hg (10/11/19 4:40 PM) Respiratory Rate [16-30 br/min] 19 br/min (10/11/19 4:40 PM) Temperature [96.8-100.4 DegF] 98.0 DegF (10/11/19 4:40 PM) Mode of Delivery (Oxygen) Room air (10/11/19 6:42 PM) Room air (10/11/19 4:40 PM) Blood pressure sites Arm, right (10/11/19 6:42 PM) Arm, right (10/11/19 5:19 PM) Arm, right (10/11/19 4:40 PM) Dry Weight 140.9 kg (10/11/19 4:40 PM) Weight Obtained Via Standing scale (10/11/19 4:40 PM) Dry Weight Obtained Via Standing scale (10/11/19 4:40 PM) Social History Social History Type Response Smoking Status 5-9 cigarettes (betw een 1/4 to 1/2 pack)/day in last 30 days; Tobacco user in household: No entered on: 02/28/19 Sex
--- OUTSIDE RECORDS SUMMARY | 2022-10-14 11:47 | XMS_ITS | Continuity of Care Document ---
Author Name Unknown Organization [facility] Address [address] [place] [address]- Care Team Providers Care Consumer Insights Specialist Name Role Phone Soto RAMIREZ MD, Bal Serrano Primary Care Physician Encounter [facility] Date(s): 11/26/20 - 12/26/20 [facility] [address], [place] [address] Attending Physician: Admtr, Ar8 Admitting Physician: Admtr, [...] 02/13/1911:48:23 EST, Aerosol, Route to Pharmacy Electronically, [id number], [facility]/pharmacy #1111 Start Date: 02/13/19 Status: Ordered [...] 3 Refills, Maintenance, 04/15/20 10:15:00 EST, Tablet, [facility] #[id number], Partial fill upon patient request if the prescription isfor a schedule II opioid drug., 183, cm, 04/15/20 0... Start Date: 04/15/20 Stop Date: 05/13/20 Status: Ordered amitriptyline 25 mg oral tablet 75 mg, 3, tablet, By Mouth, Daily, # 21 tablet, Refills 3, Tot. Refills 3, Maintenance, 04/13/20 14:55:00 EST, Route to Pharmacy Electronically, [facility] #[id number], Partial fill upon patientrequest if the prescription is for a schedule II op... Start Date: 04/13/20 Stop Date: 05/11/20 Status: Ordered baclofen 10 mg oral tablet 20 mg, 2, tablet, By Mouth, 2 times a day, # 56 tablet, Refills 1, Tot. Refills 1, Maintenance, 04/13/20 14:54:00 EST, Route to Pharmacy Electronically, [facility] #[id number], Partial fill uponpatient request if the prescription is for a schedu... Start Date: 04/13/20 Stop Date: 05/11/20 Status: Ordered busPIRone 15 mg oral tablet 1 tablet = 15 mg, By Mouth, 3 times a day, # 42 tablet, 1 Refills, Maintenance, 04/13/20 14:56:00 EST, Tablet, [facility] #[id number], Partial fill upon patient request if the prescription is for a schedule II opioid drug., 183, cm, 04/13/20 9:04... Start Date: 04/13/20 Stop Date: 05/11/20 Status: Ordered cloNIDine 0.1 mg oral tablet 0.1 mg, 1, tablet, By Mouth, 2 times a day, # 10 tablet, Refills 0, Tot. Refills 0, Maintenance, 10/22/20 15:02:00 EDT, Route to Pharmacy Electronically, [facility] #[id number], Partial fill upon patient request if the [...] 09/13/20 14:45:00 EDT, Route to Pharmacy Electronically, [facility] #[id number], Partial fill upon patient request if the prescription is for a salima... Start Date: 09/13/20 Status: Ordered Flomax 0.4 mg oral capsule 0.4 mg, 1, capsule, By Mouth, Daily, # 30 capsule, Refills 0, Tot. Refills 0, Maintenance, 10/22/2121:52:00 EDT, Route to Pharmacy Electronically, [facility] #[id number], Partial fill upon patient request if the prescription is for a schedule II... Start Date: 10/22/20 Status: Ordered fluticasone 50 mcg/inh nasal spray 2 sprays, Nares, Both, 2 times a day, # 9.9 mL, 0 Refills, Maintenance, 11/15/18 14:21:09 EDT, [place], 2 sprays Nares, Both 2 times a [...] 05/28/21 9:00:00 EDT, 05/28/20 15:55:00 EDT, Patch, [facility] #[id number], Partial fill upon patient request if the prescription is for aschedule II opioid drug., 1 patch Topically Daily,... Start Date: 05/28/20 Stop Date: 05/28/21 Status: Ordered propranolol 40 mg oral tablet 40 mg, 1, tablet, By Mouth, 2 times a day, # 28 tablet, Refills 1, Tot. Refills 1, Maintenance, 04/13/20 14:56:00 EST, Route to Pharmacy Electronically, [facility] #[id number], Partial fill uponpatient request if the prescription [...] 04/13/20 14:57:00 EST, Route to Pharmacy Electronically, [facility] #[id number], Partial fill upon patient request if the [...] 0 Refills, Maintenance, 07/27/20 19:15:00 EDT, Tablet, [facility] #[id number], Partial fill upon patient request if the [...] MESH VENTRALIGHT ECHO ELLIPS 4 - BARD ([id number]) 1 Bard Unknown HAYDEE:{01}[id number] Assigning Author ity:FDA
--- OUTSIDE RECORDS SUMMARY | 2022-10-14 11:48 | XMS_ITS | Continuity of Care Document ---
Author Name Unknown Organization [facility] Address [address] [place] [address]- Care Team Providers Care Gang Vibrator Operator Name Role Phone Elijah Gibbons MD Primary Care Physician Encounter [facility] Date(s): 05/04/19 - 06/17/[address] [address]- [place] Attending Physician: Cassandra Call DO Admitting Physician: Cassandra Call DO Allergies, Adverse Reactions, Alerts Substance Reaction Severity Status Zoloft Active Thorazine Active traZODone Active ZyPREXA Active PROzac Active SEROquel Active Medications albuterol CFC free 90 mcg/inh inhalation aerosol 2, puffs, Inhalation, Every 4 hours, PRN, # 18 Gm, Refills 3, Tot. Refills 3, Maintenance, 02/13/1911:48:23 EST, Aerosol, Route to Pharmacy Electronically, [id number], [facility]/pharmacy #1111 Start Date: 02/13/19 Status: Ordered busPIRone 15 mg oral tablet 1 tablet = 15 mg, By Mouth, 3 times a day, # 90 tablet, 0 Refills, Maintenance, 02/28/19 12:08:43 EST, Tablet, [facility]/pharmacy #1111, 183, cm, 02/28/19 11:39:08 EST, Height, 124, kg, 02/22/19 8:26:27 EST, Dry Weight Start Date: 02/28/19 Status: Ordered divalproex sodium 500 mg oral enteric coated tablet 1 tablet = 500 mg, By Mouth, 2 times a day, # 60 tablet, 1 Refills, Maintenance, 02/28/19 12:11:45 EST, EC Tablet, [facility]/pharmacy #1111, 183, cm, 02/28/19 11:39:08 EST, [...] Maintenance, 198:58:23 EST, Route to Pharmacy Electronically, [id number], [facility]/pharmacy #1111, 183, cm, 02/17/19 8:22:07 EST, Height, 127, kg... Start Date: 02/17/19 Status: Ordered fluticasone 50 mcg/inh nasal spray 2 sprays, Nares, Both, 2 times a day, # 9.9 mL, 0 Refills, Maintenance, 11/15/18 14:21:09 EDT, [place], 2 sprays Nares, Both 2 times a day Start Date: 11/15/18 Status: Ordered gabapentin 100 mg oral capsule 100 mg, 1, capsule, By Mouth, Daily at bedtime, # 30 capsule, Refills 0, Tot. Refills 0, Maintenance, 02/28/19 12:13:04 EST, Route to Pharmacy Electronically, [facility]/pharmacy #1111, 183, cm, 02/28/19 11:39:08 EST, [...]
--- OUTSIDE RECORDS SUMMARY | 2022-10-14 11:48 | XMS_ITS | Continuity of Care Document ---
Author Name Unknown Organization [facility] Address [address] [place] [address]- Care Team Providers Care Gas Flow Regulator Name Role Phone Soto RAMIREZ MD, Bal Serrano Primary Care Physician Encounter [facility] Date(s): 03/07/22 - 03/07/[address] [address]- Encounter Diagnosis Anxiety(Final) - 03/07/22 Discharge Disposition: A-D/C Home Attending Physician: Chary Joy MD Admitting Physician: Chray Joy MD Referring Physician: Not on Staff, Referring [...] 05/18/18 Recorded tetanus/diphtheria/pertussis, acel(Tdap) 12/19/16 Recorded Medications apixaban = 5 mg, By Mouth, 2 times a day, 0 Refills, Maintenance, 01/02/22 9:28:00 EDT, Tablet, Partial fillupon patient request if the prescription is for a schedule II opioid drug. Start Date: 01/02/22 Status: Ordered ARIPiprazole 30 mg oral tablet 1 tablet = 30 mg, By Mouth, Daily, # 14 tablet, 1 Refills, Maintenance, 01/01/22 15:55:00 EDT, Tablet, [facility] #[id number], Partial fill upon patient request if the prescription is for a schedule II opioid drug., 186, cm, 01/01/22 11:49:00 EDT... Start Date: 01/01/22 Stop Date: 01/29/22 Status: Ordered benztropine 1 mg oral tablet 1 mg, 1, tablet, By Mouth, Daily, # 14 tablet, Refills 1, Tot. Refills 1, Maintenance, 01/01/22 15:54:00 EDT, Route to Pharmacy Electronically, [facility] #[id number], Partial fill upon patient request if the prescription is for a schedule II opi... Start Date: 01/01/22 Stop Date: 01/29/22 Status: Ordered busPIRone 15 mg oral tablet 1 tablet = 15 mg, By Mouth, 3 times a day, # 30 tablet, 2 Refills, Maintenance, 01/01/22 15:55:00 EDT, Tablet, [facility] #[id number], Partial fill upon patient request if the [...] 01/01/22 15:56:00 EDT, Route to Pharmacy Electronically, [facility] #[id number], Partial fill upon patient request if the [...] 2 Refills, Maintenance, 01/01/22 15:54:00 EDT, Tablet, [facility] #[id number], Partial fill upon patient request if the prescription is for a schedule II opioid drug., 186, yolanda, 01/01/22 11:49:00 E... Start Date: 01/01/22 Stop Date: 01/31/22 Status: Ordered docusate sodium 100 mg oral capsule 100 mg, 1, capsule, By Mouth, 2 times a day, # 60 capsule, Refills 0, Tot. Refills 0, Maintenance, 06/20/21 23:57:00 EDT, Route to Pharmacy Electronically, [facility] #[id number], Partial fill upon patient request if the prescription is for a salima... Start Date: 06/20/21 Status: Ordered furosemide 40 mg oral tablet 80 mg, 2, tablet, By Mouth, Daily, # 14 tablet, Refills 1, Tot. Refills 1, Maintenance, 01/02/22 9:27:00 EDT, Route to Pharmacy Electronically, [facility] #[id number], Partial fill upon patient request if the prescription is for a schedule II opi... Start Date: 01/02/22 Stop Date: 01/16/22 Status: Ordered levothyroxine 0.05 mg oral tablet 1 tablet = 50 mcg, By Mouth, Daily, # 14 tablet, 1 Refills, Maintenance, 01/02/22 9:22:00 EDT, Tablet, [facility] #[id number], Partial fill upon patient request if the [...] 2 Refills, Maintenance, 01/01/22 15:54:00 EDT, Capsule, [facility] #[id number], Partial fill upon patient request if the prescription is for a schedule II opioid drug., 186, cm, 01/01/22... Start Date: 01/01/22 Stop Date: 01/22/22 Status: Ordered Singulair = 10 mg, By Mouth, Daily, 0 Refills, Maintenance, 05/21/20 9:45:00 EST, Partial fill upon patient request if the prescription is for a schedule II opioid drug. Start Date: 05/21/20 Status: Ordered tiZANidine 4 mg oral tablet 4 mg, 1, tablet, By Mouth, 2 times a day, PRN, # 20 tablet, Refills 1, Tot. Refills 1, Maintenance,Spasm, 01/02/22 9:33:00 EDT, Route to Pharmacy Electronically, [facility] #[id number], Partialfill upon patient request if the prescription is fo... Start Date: 01/02/22 Stop Date: 01/22/22 Status: Ordered Problem List Condition Confirmation Course Effective Dates Status H ealth Status Informant Allergic rhinitis Confirmed Active Asthma Confirmed Active Bipolar disorder with depression Confirmed Active GERD (gastroesophageal reflux disease) Confirmed Active Generalized anxiety disorder Confirmed Active Hypothyroidism Confirmed Active Vital Signs Most recent to oldest [Reference Range]: 1 Height 186 cm (03/07/22 5:21 AM) Weight 109.5 kg (03/07/22 5:21 AM) Oxygen Saturation [94-100 %] 100 % (03/07/22 5:21 AM) Pulse Rate [55-90 bpm] 98 bpm *H* (03/07/22 5:21 AM) Blood Pressure [90-138/55-84 mm Hg] 143/ 104mm Hg *H* (03/07/22 5:21 AM) Respiratory Rate [16-30 br/min] 16 br/mi n (03/07/22 5:21 AM) Temperature [96.8-100.4 DegF] 97.5 DegF (03/07/22 5:21 AM) Mode of Delivery (Oxygen) Room air (03/07/22 5:21 AM) Blood pressure sites Arm, left (03/07/22 5:21 AM) Temperature Route Temporal (03/07/22 5:21 AM) Dry Weight 109.5 kg (03/07/22 5:21 AM) Weight Obtained Via Patient/family state d (03/07/22 5:21 AM) Dry Weight Obtained Via Patient/family s tated (03/07/22 5:21 AM) Social History Social History Type Response [...] Code MRI Safety Implantable Status 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 [id number] Unknown [id number] 2 Unknown 03/11/21 Unknown Unknown Active GS1 Patient Care team information Care Team Personnel Name: Konrad Gallegos RN Position: [facility] ED RN W/OE and Tasks Member Role: Primary Care Nurse Name: Trisha Alamo RN Position: [facility] RN Supv Member Role: Primary Care Nurse Name: Rita Son NP Position: [facility] Associate Professional Member Role: Primary Care Nurse Address: Address: [address] [place] [address] Name: Sol Chanel RN Position: [facility] RN Member Role: Primary Care Nurse Name: Trisha Beltrán RN Position: [facility] RN Supv Member Role: Primary Care Nurse Name: Jackie Carrillo RN Position: [facility] RN Member Role: Primary Care Nurse Name: Helene Pérez RN Position: [facility] RN Member Role: Primary Care Nurse Name: Brenda Cuba RN Position: [facility] HBO Wound Member Role: Primary Care Nurse Name: Екатерина Chacko RN Position: [facility] RN Member Role: Primary Care Nurse Name: Anna Lackey RN Position: [facility] RN Member Role: Primary Care Nurse Name: Anna Oconnor RN Position: [facility] Hospital Trouble Tracer Member Role: Primary Care Nurse Name: Fang Walsh RN Position: [facility] RN Member Role: Primary Care Nurse Name: Kip Gonzalez RN Position: [facility] RN Member Role: Primary Care Nurse Address: Address: [address] [place] [address]- [place] Name: Kari Grijalva RN Position: [facility] RN Member Role: Primary Care Nurse Name: Sunitha Gutierrez RN Position: [facility] RN Member Role: Primary Care Nurse Name: April Acuña RN Position: [facility] RN Member Role: Primary Care Nurse Name: Li Esquivel RN Position: [facility] Trouble Tracer Member Role: Primary Care Nurse Name: Soto RAMIREZ MD, James C Position: [facility] Outreach Member Role: PCP Address: Address: [address] [place] [address]- [place] Name: Tunde White MD Position: [facility] Psychiatry MD Member Role: Lifetime Consulting Physician Address: Address: [address] [place] [address]- [place] Name: Chary Joy MD Position: [facility] Resident Member Role: Admitting Physician Address: Address: [address] [facility] [place] [address]- [place] Name: Jemma Moe RN Position: [facility] ED RN W/OE and Tasks Member Role: Patient Care Provider Care Team Related Persons Name: FORREST TO Address: home [address] [place] [address] Name: MÓNICA CREWS
--- OUTSIDE RECORDS SUMMARY | 2022-10-14 11:48 | XMS_ITS | Continuity of Care Document ---
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 Role Phone Soto RAMIREZ MD, Bal Serrano Primary Care Physician Encounter [facility] Date(s): 09/07/21 - 09/08/[address] [address]- Encounter Diagnosis Chronic knee pain(Final) - 09/08/21 Discharge Disposition: A-D/C Home Attending Physician: Bal [...] 05/18/18 Recorded tetanus/diphtheria/pertussis, acel(Tdap) 12/19/16 Recorded Medications Advair Diskus 250 mcg-50 mcg inhalation powder Inhalation, 2 times a day, Refills 0, Maintenance, 05/21/20 9:46:00 EST Start Date: 05/21/20 Status: Ordered Advair Diskus 500 mcg-50 mcg inhalation powder 1, puffs, Inhalation, 2 times a day, # 1 each, Refills 0, Tot. Refills 0, Maintenance, 06/20/21 23:55:00 EDT, Inhaler, Route to Pharmacy Electronically, [id number], [facility] #[id number], 182, cm, 06/20/21 23:10:00 EDT,... Start Date: 06/20/21 Status: Ordered amitriptyline 150 mg oral tablet 1 tablet = 150 mg, By Mouth, Daily at bedtime, # 5 tablet, 4 Refills, Maintenance, 07/11/21 11:18:00 EDT, Tablet, [facility] #[id number], Partial fill upon patient request if the prescription isfor a schedule II opioid drug., 182, cm, 06/20/21 2... Start Date: 07/11/21 Stop Date: 08/05/21 Status: Ordered ARIPiprazole 15 mg oral tablet 15 mg, 1, tablet, By Mouth, Daily, # 7 tablet, Refills 3, Tot. Refills 3, Maintenance, 07/14/21 11:18:00 EDT, Route to Pharmacy Electronically, [facility] #[id number], Partial fill upon patient request if the prescription is for a schedule II opi... Start Date: 07/14/21 Stop Date: 08/11/21 Status: Ordered baclofen 20 mg oral tablet 20 mg, 1, tablet, By Mouth, 2 times a day, Maintenance, 03/04/21 13:36:00 EST, Partial fill upon patient request if the prescription is for a schedule II opioid drug. Start Date: 03/04/21 Stop Date: 03/11/21 Status: Ordered busPIRone 30 mg oral tablet 1 tablet = 30 mg, By Mouth, 2 times a day, # 14 tablet, 3 Refills, Maintenance, 07/14/21 11:19:00 EDT, Tablet, [facility] #[id number], Partial fill upon patient request if the prescription is for a schedule II opioid drug., 182, cm, 06/20/21 23:1... Start Date: 07/14/21 Stop Date: 08/11/21 Status: Ordered calcium carbonate 500 mg (200 [...] drug. Start Date: 03/04/21 Status: Ordered cloNIDine 0.1 mg oral tablet 0.3 mg, 3, tablet, By Mouth, 2 times a day, Hold if SBP <100mm Hg, # 180 tablet, Refills 0, Tot.Refills 0, Maintenance, 06/20/21 23:55:00 EDT, Route to Pharmacy Electronically, [facility] #[id number], Partial fill upon patient request if the pre... Start Date: 06/20/21 Status: Ordered Combivent Respimat 20 mcg-100 mcg/inh inhalation aerosol 1 puffs, Inhalation, 4 times a day, Maintenance, 03/04/21 13:40:00 EST, Aerosol, Partial fill upon patient request if the prescription is for a schedule II opioid drug. Start Date: 03/04/21 Status: Ordered Depakote 250 mg oral enteric coated tablet = 2,500 mg, By Mouth, Daily, # 60 tablet, 5 Refills, Maintenance, 08/26/21 23:27:00 EDT, Partial fill upon patient request if the prescription is for a schedule II opioid drug. Start Date: 08/26/21 Status: Ordered divalproex sodium 500 mg oral enteric coated tablet = 500 mg, By Mouth, 3 times a day, # 21 tablet, 3 Refills, Maintenance, 07/14/21 11:19:00 EDT, Tablet, [facility] #[id number], Partial fill upon patient request if the prescription is for a schedule II opioid drug., 182, cm, 06/20/21 23:10:00 EDT... Start Date: 07/14/21 Stop Date: 08/11/21 Status: Ordered docusate sodium 100 mg oral capsule 100 mg, 1, capsule, By Mouth, 2 times a day, # 60 capsule, Refills 0, Tot. Refills 0, Maintenance, 06/20/21 23:57:00 EDT, Route to Pharmacy Electronically, [facility] #[id number], Partial fill upon patient request if the prescription is for a salima... Start Date: 06/20/21 Status: Ordered Flomax 0.4 mg oral capsule 0.4 mg, 1, capsule, By Mouth, Daily, # 30 capsule, Refills 0, Tot. Refills 0, Maintenance, 06/20/2222:57:00 EDT, Route to Pharmacy Electronically, [facility] #[id number], Partial fill upon patient request if the prescription is for a schedule II... Start Date: 06/20/21 Status: Ordered fluticasone 50 mcg/inh nasal spray 2 sprays, Nares, Both, 2 times a day, # 9.9 mL, 0 Refills, Maintenance, 11/15/18 14:21:09 EDT, Baker, 2 sprays Nares, Both 2 times a day Start Date: 11/15/18 Status: Ordered Furosemide = 60 mg, By Mouth, Daily, 0 Refills, Maintenance, 09/07/21 21:59:00 EDT, Partial fill upon patient request if the prescription is for a schedule II opioid drug. Start Date: 09/07/21 Status: Ordered Methadone = 20 mg, By Mouth, Daily, 0 Refills, Maintenance, 09/07/21 21:55:00 EDT, Partial fill upon patient request if the prescription is for a schedule II opioid drug. Start Date: 09/07/21 Status: Ordered methadone 10 mg oral tablet 20 mg, Tablet, By Mouth, Once, STAT, 09/08/21 6:02:00 EDT, Stop date 09/08/21 6:02:00 EDT Start Date: 09/08/21 Stop Date: 09/08/21 Status: Completed methocarbamol 500 mg oral tablet 1 tablet = 500 mg, By Mouth, 3 times a day, 0 Refills, Maintenance, 02/06/21 7:57:00 EST, Partial fill upon patient request if the prescription is for a schedule II opioid drug. Start Date: 02/06/21 Status: Ordered metoclopramide 5 mg oral tablet 1 tablet = 5 mg, By Mouth, 4 times a day, # 120 tablet, 0 Refills, Maintenance, 09/07/21 21:57:00 EDT, Tablet, Partial fill upon patient request if the prescription is for a schedule II opioid drug. Start Date: 09/07/21 Status: Ordered Minipress 1 mg oral capsule 1 mg, 1, capsule, By Mouth, 3 times a day, Refills 0, Maintenance, 02/06/21 7:57:00 EST, Partial fill upon patient request if the prescription is for a schedule II opioid drug. Start Date: 02/06/21 Status: Ordered misoprostol 100 mcg oral tablet 1 tablet = 100 mcg, By Mouth, 4 times a day, Maintenance, 03/04/21 13:45:00 EST, Tablet, Partial fill upon patient request if the prescription is for a schedule II opioid drug. Start Date: 03/04/21 Status: Ordered morphine 30 mg oral tablet, immediate release 1 tablet = 30 mg, By Mouth, Every 4 hours, PRN as needed for pain, for 3 days, # 5 tablet, 0 Refills, Acute 09/11/21 5:23:00 EDT, 09/08/21 5:23:00 EDT, Tablet, [facility] #[id number], Partial fill upon patient request if the prescription is for a... Start Date: 09/08/21 Stop Date: 09/11/21 Status: Ordered oxyCODONE 5 mg oral tablet 10 mg, Tablet, By Mouth, Once, STAT, 09/08/21 1:43:00 EDT, Stop date 09/08/21 1:43:00 EDT Start Date: 09/08/21 Stop Date: 09/08/21 Status: Completed pantoprazole 40 mg oral delayed release tablet = 40 mg, By Mouth, 2 times a day, # 14 tablet, 1 Refills, Maintenance, 06/30/21 11:19:00 EDT, EC Tablet, 182, cm, 06/20/21 23:10:00 EDT, Height, 141, kg, 06/20/21 23:10:00 EDT, Dry Weight Start Date: 06/30/21 Stop Date: 07/14/21 Status: Ordered pregabalin 200 mg oral capsule 1 capsule = 200 mg, By Mouth, 2 times a day, 0 Refills, Maintenance, 08/23/21 22:07:00 EDT, Capsule, Partial fill upon patient request if the prescription is for a schedule II opioid drug. Start Date: 08/23/21 Status: Ordered Singulair = 10 mg, By Mouth, Daily, 0 Refills, Maintenance, 05/21/20 9:45:00 EST, Partial fill upon patient request if the prescription is for a schedule II opioid drug. Start Date: 05/21/20 Status: Ordered Tizanidine By Mouth, Refills 0, Maintenance, 06/20/21 23:12:00 EDT, Partial fill upon patient request if the prescription is for a schedule II opioid drug. Start Date: 06/20/21 Status: Ordered tiZANidine 4 mg oral tablet 4 mg, 1, tablet, By Mouth, 2 times a day, # 14 tablet, Refills 0, Tot. Refills 0, Maintenance, 09/08/21 5:22:00 EDT, Route to Pharmacy Electronically, [facility] #[id number], Partial fill upon patient request if the prescription is for a schedule... Start Date: 09/08/21 Stop Date: 09/15/21 Status: Ordered Valium 10 mg oral tablet 10 mg, 1, tablet, By Mouth, 3 times a day, PRN, Refills 0, Maintenance, for anxiety, 08/23/21 22:06:00 EDT, Partial fill upon patient request if the prescription is for a schedule II opioid drug. Start Date: 08/23/21 Status: Ordered Vistaril pamoate 50 mg oral capsule 1 capsule = 50 mg, By Mouth, 3 times a day, 0 Refills, Maintenance, 09/07/21 21:57:00 EDT, Partial fill upon patient request if the prescription is for a schedule II opioid drug. Start Date: 09/07/21 Status: Ordered Problem List Condition Effective Dates Status Health Status Inform ant Allergic rhinitis(Confirmed) Active Asthma(Confirmed) Active Bipolar disorder with depression(Confirmed) Active GERD (gastroesophageal reflu x disease)(Confirmed) Active Generalized anxiety disorder(Confirmed) Active Hypothyroidism(Confirmed) Active Severe obesity(Confirmed) Active Vital Signs Most recent to oldest [Reference Range]: 1 2 3 Height 183 cm (09/08/21 6:36 AM) 183 cm (09/08/21 2:14 AM) 183 cm (09/08/21 12:11 AM) Weight 136.5 kg (09/08/21 6:36 AM) 136.5 kg (09/08/21 2:14 AM) 136.5 kg (09/08/21 12:11 AM) Oxygen Saturation [94-100 %] 100 % (09/08/21 2:14 AM) 97 % (09/08/21 12:11 AM) 97 % (09/07/21 9:48 PM) Pulse Rate [55-90 bpm] 94 bpm *H* (09/08/21 2:14 AM) 91 bpm *H* (09/08/21 12:11 AM) 94 bpm *H* (09/07/21 9:48 PM) Body Mass Index [18.5-24.99] 40.76 *>HHI* (09/08/21 2:14 AM) 40.76 *>HHI* (09/08/21 12:11 AM) Blood Pressure [90-138/55-84 mm Hg] 144/98mm Hg *H* (09/08/21 2:14 AM) 137/95mm Hg (09/08/21 12:11 AM) 134/90mm Hg (09/07/21 9:48 PM) Respiratory Rate [16-30 br/min] 18 br/min (09/08/21 6:08 AM) 18 br/min (09/08/21 2:14 AM) 18 br/min (09/08/21 2:05 AM) Temperature [96.8-100.4 DegF] 98.2 DegF (09/07/21 9:48 PM) Liters per Minute 0 L/min (09/08/21 12:11 AM) 0 L/min (09/07/21 9:48 PM) Mode of Delivery (Oxygen) Room air (09/08/21 2:14 AM) Room air (09/08/21 12:11 AM) Room air (09/07/21 9:48 PM) Blood pressure sites Arm, left (09/08/21 2:14 AM) Arm, left (09/08/21 12:11 AM) Arm, left (09/07/21 9:48 PM) Temperature Route Oral (09/07/21 9:48 PM) Dry Weight 136.5 kg (09/08/21 6:36 AM) 136.5 kg (09/08/21 2:14 AM) 136.5 kg (09/08/21 12:11 AM) Weight Obtained Via Patient/family state d (09/07/21 9:48 PM) Dry Weight Obtained Via Patient/family s tated (09/07/21 9:48 PM) Social History Social History Type Response Smoking Status 10 or more cigarette s (1/2 pack or more)/day in last 30 days entered on: 06/10/21 Sex Medical Equipment Implanted Date:09/13/20Target Site:Abdomen Description Quantity MRI Company Model MESH VENTRALIGHT ECHO ELLIPS 4 - BARD ([id number]) 1 Bard Unknown HAYDEE:{01}[id number] Assigning Author ity:FDA
--- OUTSIDE RECORDS SUMMARY | 2022-10-14 11:48 | XMS_ITS | Continuity of Care Document ---
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 Role Phone Soto RAMIREZ MD, Bal Serrano Primary Care Physician Encounter [facility] Date(s): 04/09/21 - 04/09/[address] [address]- Discharge Disposition: A-D/C Home Attending Physician: Konrad Dorsey MD Admitting Physician: Konrad Dorsey MD Referring Physician: Not on Staff, Referring [...] 05/18/18 Recorded tetanus/diphtheria/pertussis, acel(Tdap) 12/19/16 Recorded Medications Abilify 5 mg oral tablet 5 mg, 1, tablet, By Mouth, Daily, # 30 tablet, Refills 0, Maintenance, 04/09/21 22:23:00 EST, Partial fill upon patient request if the prescription is for a schedule II opioid drug. Start Date: 04/09/21 Status: Ordered Advair Diskus 250 mcg-50 mcg [...] 02/13/1911:48:23 EST, Aerosol, Route to Pharmacy Electronically, [id number], [facility]/pharmacy #[id number] Start Date: 02/13/19 Status: Ordered amitriptyline 100 mg oral tablet 1 tablet = 100 mg, By Mouth, Daily at bedtime, # 7 tablet, 3 Refills, Maintenance, 04/15/20 10:15:00 EST, Tablet, [facility] #[id number], Partial fill upon patient request if the prescription isfor a schedule II opioid drug., 183, cm, 04/15/20 0... Start Date: 04/15/20 Stop Date: 05/13/20 Status: Ordered amitriptyline 75 mg oral tablet 1 tablet = 75 mg, By Mouth, Daily, Maintenance, 03/04/21 13:35:00 EST, Tablet, Partial fill upon patient request if the prescription is for a schedule II opioid drug. Start Date: 03/04/21 Stop Date: 03/11/21 Status: Ordered baclofen 20 mg oral tablet 20 mg, 1, tablet, By Mouth, 2 times a day, Maintenance, 03/04/21 13:36:00 EST, Partial fill upon patient request if the prescription is for a schedule II opioid drug. Start Date: 03/04/21 Stop Date: 03/11/21 Status: Ordered BuSpar 10 mg oral tablet See Instructions, 60mg daily, Refills 0, Maintenance, 04/09/21 22:24:00 EST, Instructions Replace Required Details, Partial fill upon patient request if the prescription is for a schedule II opioid drug. Start Date: 04/09/21 Status: Ordered calcium carbonate 500 mg (200 [...] opioid drug. Start Date: 03/04/21 Status: Ordered Combivent Respimat 20 mcg-100 mcg/inh inhalation aerosol 1 puffs, Inhalation, 4 times a day, Maintenance, 03/04/21 13:40:00 EST, Aerosol, Partial fill upon patient request if the prescription is for a schedule II opioid drug. Start Date: 03/04/21 Status: Ordered Depakote 500 mg oral enteric [...] 09/13/20 14:45:00 EDT, Route to Pharmacy Electronically, [facility] #[id number], Partial fill upon patient request if the [...] Maintenance, 10/22/2121:52:00 EDT, Route to Pharmacy Electronically, [facility] #[id number], Partial fill upon patient request if the prescription is for a schedule II... Start Date: 10/22/20 Status: Ordered fluticasone 50 mcg/inh nasal spray 2 sprays, Nares, Both, 2 times a day, # 9.9 mL, 0 Refills, Maintenance, 11/15/18 14:21:09 EDT, Hope, 2 sprays Nares, Both 2 times a day Start Date: 11/15/18 Status: Ordered furosemide 40 mg oral tablet 40 mg, 1, tablet, By Mouth, Daily, Maintenance, 03/04/21 13:40:00 EST, Partial fill upon patient request if the prescription is for a schedule II opioid drug. Start Date: 03/04/21 Status: Ordered gabapentin 800 mg oral tablet 1 tablet = 800 mg, By Mouth, 3 times a day, # 90 tablet, 0 Refills, Maintenance, 01/07/21 18:42:00 EDT, Tablet, [facility] #[id number], Partial fill upon patient request if the prescription is for a schedule II opioid drug., 183, cm, 01/07/21 17:... Start Date: 01/07/21 Status: Ordered ibuprofen 800 mg oral tablet 800 mg, 1, tablet, By Mouth, 3 times a day, PRN, Maintenance, for pain, 03/04/21 13:44:00 EST, Partial fill upon patient request if the prescription is for a schedule II opioid drug. Start Date: 03/04/21 Status: Ordered Melatonin = 10 mg, By [...] opioid drug. Start Date: 03/04/21 Status: Ordered nicotine 14 mg/24 hr transdermal film, extended release 1 patch, Topically, Daily, # 30 patch, 0 Refills, Acute 05/28/21 9:00:00 EDT, 05/28/20 15:55:00 EDT, Patch, [facility] #[id number], Partial fill upon patient request if the prescription is for aschedule II opioid drug., 1 patch Topically Daily,... Start Date: 05/28/20 Stop Date: 05/28/21 Status: Ordered promethazine 25 mg oral tablet 1 tablet = 25 mg, By Mouth, 3 times a day, # 6 tablet, 0 Refills, Maintenance, 03/30/21 17:02:00 EST, Tablet, [facility] #[id number], Partial fill upon patient request if the prescription is fora schedule II opioid drug., 183, cm, 03/30/21 13:41... Start Date: 03/30/21 Stop Date: 04/01/21 Status: Ordered propranolol 60 mg oral tablet 1 tablet = 60 mg, By Mouth, 2 times a day, Maintenance, 03/04/21 13:41:00 EST, Tablet, Partial fillupon patient request if the prescription is for a schedule II opioid drug. Start Date: 03/04/21 Status: Ordered Protonix 40 mg oral delayed [...] 04/13/20 14:57:00 EST, Route to Pharmacy Electronically, [facility] #[id number], Partial fill upon patient request if the [...] 0 Refills, Maintenance, 07/27/20 19:15:00 EDT, Tablet, [facility] #[id number], Partial fill upon patient request if the prescription is for a schedule II opioid drug., 184, cm... Start Date: 07/27/20 Status: Ordered Urecholine Tablet 10 mg, By Mouth, 3 times a day, Refills 0, Maintenance, 02/06/21 8:01:00 EST, Partial fill upon patient request if the prescription is for a schedule II opioid drug. Start Date: 02/06/21 Status: Ordered Vistaril Capsule See Instructions, 0 Refills, Maintenance, 04/09/21 22:25:00 EST, Partial fill upon patient request if the prescription is for a schedule II opioid drug. Start Date: 04/09/21 Status: Ordered Xanax 1 mg oral tablet 1 tablet = 1 mg, By Mouth, 4 times a day, 0 Refills, Maintenance, 09/13/20 [...] Range]: 1 2 3 Height 183 cm (04/09/21 11:10 PM) 183 cm (04/09/21 10:28 PM) 183 cm (04/09/21 10:16 PM) Weight 145 kg (04/09/21 11:10 PM) 145 kg (04/09/21 10:28 PM) 145 kg (04/09/21 10:16 PM) Oxygen Saturation [94-100 %] 98 % (04/09/21 11:10 PM) 98 % (04/09/21 10:28 PM) Pulse Rate [55-90 bpm] 96 bpm *H* (04/09/21 11:10 PM) 90 bpm (04/09/21 10:28 PM) Body Mass Index [18.5-24.99] 43.3 *>HHI* (04/09/21 11:10 PM) 43.3 *>HHI* (04/09/21 10:28 PM) Blood Pressure [90-138/55-84 mm Hg] 130/97mm Hg (04/09/21 11:10 PM) 145/100mm Hg *H* (04/09/21 10:28 PM) Respiratory Rate [16-30 br/min] 23 br/min (04/09/21 11:10 PM) 20 br/min (04/09/21 10:28 PM) Temperature [96.8-100.4 DegF] 98.5 DegF (04/09/21 10:28 PM) Liters per Minute 0 L/min (04/09/21 11:10 PM) 0 L/min (04/09/21 10:28 PM) Mode of Delivery (Oxygen) Room air (04/09/21 11:10 PM) Room air (04/09/21 10:28 PM) Blood pressure sites Arm, left (04/09/21 11:10 PM) Arm, left (04/09/21 10:28 PM) Temperature Route Temporal (04/09/21 10:28 PM) Dry Weight 145 kg (04/09/21 11:10 PM) 145 kg (04/09/21 10:28 PM) 145 kg (04/09/21 10:16 PM) Social History Social History Type Response Tobacco Use: 1PPD. Sex Medical Equipment Implanted Date:09/13/20Target Site:Abdomen Description Quantity MRI Company Model MESH VENTRALIGHT ECHO ELLIPS 4 - BARD ([id number]) 1 Bard Unknown HAYDEE:{01}[id number] Assigning Author ity:FDA
--- OUTSIDE RECORDS SUMMARY | 2022-10-14 11:48 | XMS_ITS | Continuity of Care Document ---
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] 3 Refills, Maintenance, 04/15/20 10:15:00 EST, Tablet, [facility] #[id number], Partial fill upon patient request if the prescription isfor a schedule II opioid drug., 183, cm, 04/15/20 0... Start Date: 04/15/20 Stop Date: 05/13/20 Status: Ordered amitriptyline 25 mg oral tablet 75 mg, 3, tablet, By Mouth, Daily, # 21 tablet, Refills 3, Tot. Refills 3, Maintenance, 04/13/20 14:55:00 EST, Route to Pharmacy Electronically, [facility] #[id number], Partial fill upon patientrequest if the prescription is for a schedule II op... Start Date: 04/13/20 Stop Date: 05/11/20 Status: Ordered baclofen 10 mg oral tablet 20 mg, 2, tablet, By Mouth, 2 times a day, # 56 tablet, Refills 1, Tot. Refills 1, Maintenance, 04/13/20 14:54:00 EST, Route to Pharmacy Electronically, [facility] #[id number], Partial fill uponpatient request if the prescription is for a schedu... Start Date: 04/13/20 Stop Date: 05/11/20 Status: Ordered busPIRone 15 mg oral tablet 1 tablet = 15 mg, By Mouth, 3 times a day, # 42 tablet, 1 Refills, Maintenance, 04/13/20 14:56:00 EST, Tablet, [facility] #[id number], Partial fill upon patient request if the prescription is for a schedule II opioid drug., 183, cm, 04/13/20 9:04... Start Date: 04/13/20 Stop Date: 05/11/20 Status: Ordered CeleBREX 100 mg oral capsule 1 capsule = 100 mg, By Mouth, 2 times a day, # 15 capsule, 0 Refills, Maintenance, 07/27/20 19:07:00 EDT, Capsule, [facility] #[id number], Partial fill upon patient request if the [...] 09/13/20 14:45:00 EDT, Route to Pharmacy Electronically, [facility] #[id number], Partial fill upon patient request if the prescription is for a salima... Start Date: 09/13/20 Status: Ordered fluticasone 50 mcg/inh nasal spray 2 sprays, Nares, Both, 2 times a day, # 9.9 mL, 0 Refills, Maintenance, 11/15/18 14:21:09 EDT, Golden, 2 sprays Nares, Both 2 times a [...] 09/13/20 14:44:00 EDT, Route to Pharmacy Electronically, [facility] #[id number], Partial fill upon patient request... Start Date: 09/13/20 Stop Date: 09/20/20 Status: Ordered nicotine 14 mg/24 hr transdermal film, extended release 1 patch, Topically, Daily, # 30 patch, 0 Refills, Acute 05/28/21 9:00:00 EDT, 05/28/20 15:55:00 EDT, Patch, [facility] #[id number], Partial fill upon patient request if the prescription is for aschedule II opioid drug., 1 patch Topically Daily,... Start Date: 05/28/20 Stop Date: 05/28/21 Status: Ordered oxyCODONE 5 mg oral tablet 5 mg, 1, tablet, By Mouth, Every 6 hours, PRN, # 20 tablet, Refills 0, Tot. Refills 0, Acute 09/20/20 14:45:00 EDT, Pain , Severe, 09/13/20 14:44:00 EDT, Route to Pharmacy Electronically, [facility] #[id number], Partial fill upon patient request... Start Date: 09/13/20 Stop Date: 09/20/20 Status: Ordered propranolol 40 mg oral tablet 40 mg, 1, tablet, By Mouth, 2 times a day, # 28 tablet, Refills 1, Tot. Refills 1, Maintenance, 04/13/20 14:56:00 EST, Route to Pharmacy Electronically, [facility] #[id number], Partial fill uponpatient request if the prescription [...] 04/13/20 14:57:00 EST, Route to Pharmacy Electronically, [facility] #[id number], Partial fill upon patient request if the [...] 1 Refills, Maintenance, 04/13/20 14:55:00 EST, Tablet, [facility] #[id number], Partial fill upon patient request if the prescription is for a schedule II opioid drug., 183, cm, 04/13/20 9:0... Start Date: 04/13/20 Stop Date: 05/11/20 Status: Ordered traMADol 50 mg oral tablet 1 tablet = 50 mg, By Mouth, Every 12 hours, PRN for pain, # 10 tablet, 0 Refills, Maintenance, 07/27/20 19:15:00 EDT, Tablet, [facility] #[id number], Partial fill upon patient request if the [...] MESH VENTRALIGHT ECHO ELLIPS 4 - BARD ([id number]) 1 Bard Unknown HAYDEE:{01}[id number] Assigning Author ity:FDA
--- OUTSIDE RECORDS SUMMARY | 2022-10-14 11:48 | XMS_ITS | Continuity of Care Document ---
Author Name Unknown Organization [facility] Address [address] [place] [address]- Care Team Providers Care Sales Account Representative Name Role Phone Soto RAMIREZ MD, Bal Serrano Primary Care Physician ( [phone] Encounter [facility] Date(s): 09/30/20 - 12/26/20 [facility] [address] [place], [place] [address] Attending Physician: Darren Diaz MD Admitting Physician: Darren Diaz MD Referring Physician: Soto RAMIREZ MD, James C Allergies, Adverse Reactions, Alerts Substance Reaction Severity [...] 02/13/1911:48:23 EST, Aerosol, Route to Pharmacy Electronically, [id number], [facility]/pharmacy #[id number] Start Date: [...] 3 Refills, Maintenance, 04/15/20 10:15:00 EST, Tablet, [facility] #[id number], Partial fill upon patient request if the prescription isfor a schedule II opioid drug., 183, cm, 04/15/20 0... Start Date: 04/15/20 Stop Date: 05/13/20 Status: Ordered amitriptyline 25 mg oral tablet 75 mg, 3, tablet, By Mouth, Daily, # 21 tablet, Refills 3, Tot. Refills 3, Maintenance, 04/13/20 14:55:00 EST, Route to Pharmacy Electronically, [facility] #[id number], Partial fill upon patientrequest if the prescription is for a schedule II op... Start Date: 04/13/20 Stop Date: 05/11/20 Status: Ordered baclofen 10 mg oral tablet 20 mg, 2, tablet, By Mouth, 2 times a day, # 56 tablet, Refills 1, Tot. Refills 1, Maintenance, 04/13/20 14:54:00 EST, Route to Pharmacy Electronically, [facility] #[id number], Partial fill uponpatient request if the prescription is for a schedu... Start Date: 04/13/20 Stop Date: 05/11/20 Status: Ordered busPIRone 15 mg oral tablet 1 tablet = 15 mg, By Mouth, 3 times a day, # 42 tablet, 1 Refills, Maintenance, 04/13/20 14:56:00 EST, Tablet, [facility] #[id number], Partial fill upon patient request if the prescription is for a schedule II opioid drug., 183, cm, 04/13/20 9:04... Start Date: 04/13/20 Stop Date: 05/11/20 Status: Ordered cloNIDine 0.1 mg oral tablet 0.1 mg, 1, tablet, By Mouth, 2 times a day, # 10 tablet, Refills 0, Tot. Refills 0, Maintenance, 10/22/20 15:02:00 EDT, Route to Pharmacy Electronically, [facility] #[id number], Partial fill upon patient request if the [...] 09/13/20 14:45:00 EDT, Route to Pharmacy Electronically, [facility] #[id number], Partial fill upon patient request if the prescription is for a salima... Start Date: 09/13/20 Status: Ordered Flomax 0.4 mg oral capsule 0.4 mg, 1, capsule, By Mouth, Daily, # 30 capsule, Refills 0, Tot. Refills 0, Maintenance, 10/22/2121:52:00 EDT, Route to Pharmacy Electronically, [facility] #[id number], Partial fill upon patient request if the prescription is for a schedule II... Start Date: 10/22/20 Status: Ordered fluticasone 50 mcg/inh nasal spray 2 sprays, Nares, Both, 2 times a day, # 9.9 mL, 0 Refills, Maintenance, 11/15/18 14:21:09 EDT, [place], 2 sprays Nares, Both 2 times a [...] 05/28/21 9:00:00 EDT, 05/28/20 15:55:00 EDT, Patch, [facility] #[id number], Partial fill upon patient request if the prescription is for aschedule II opioid drug., 1 patch Topically Daily,... Start Date: 05/28/20 Stop Date: 05/28/21 Status: Ordered propranolol 40 mg oral tablet 40 mg, 1, tablet, By Mouth, 2 times a day, # 28 tablet, Refills 1, Tot. Refills 1, Maintenance, 04/13/20 14:56:00 EST, Route to Pharmacy Electronically, [facility] #[id number], Partial fill uponpatient request if the prescription [...] 04/13/20 14:57:00 EST, Route to Pharmacy Electronically, [facility] #[id number], Partial fill upon patient request if the [...] 0 Refills, Maintenance, 07/27/20 19:15:00 EDT, Tablet, [facility] #[id number], Partial fill upon patient request if the [...] MESH [facility] ELLIPS 4 - BARD ([id number]) 1 Bard Unknown HAYDEE:{[id number] Assigning Author ity:FDA
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
--- OUTSIDE RECORDS SUMMARY | 2022-10-14 11:48 | XMS_ITS | Continuity of Care Document ---
Author Name Unknown Organization [facility] Address [address] [place] [address]- Care Team Providers Care Testing Manager Name Role Phone Marvin Mac MD Primary Care Physician Encounter [facility] Date(s): 09/23/22 - 09/23/[address] [address]- Discharge Disposition: A-D/C Home Attending Physician: Mansoor Swann MD Admitting Physician: Mansoor Swann MD Referring Physician: Not on Staff, Referring MD Allergies, Adverse Reactions, Alerts Substance Reaction Severity Status Zoloft Active Remeron Active traZODone Active ZyPREXA Active Immunizations Given and Recorded Vaccine Date Status Refusal Reason tetanus/diphtheria/pertussis, acel(Tdap) 04/09/22 Recorded tetanus/diphtheria/pertussis, acel(Tdap) 05/18/18 Recorded tetanus/diphtheria/pertussis, acel(Tdap) 12/19/16 Recorded [id number] 12y+ bivalent booster vax 02/11/22 Recorded SARS-CoV-2 [...] 1 Refills, Maintenance, 08/05/22 8:26:00 EDT, Tablet, [facility], Partial fill upon patient requestif the prescription is for a schedule II opioid dafne... Start Date: 08/05/22 Stop Date: 09/02/22 Status: Ordered bumetanide 2 mg oral tablet 1 tablet = 2 mg, By Mouth, Daily, # 30 tablet, 0 Refills, Maintenance, 09/11/22 21:44:00 EDT, Tablet, [facility] #[id number], Partial fill upon patient request if the prescription is for a schedule II opioid drug., 183, cm, 09/11/22 19:56:00 EDT,... Start Date: 09/11/22 Status: Ordered busPIRone 30 mg oral tablet 1 tablet = 30 mg, By Mouth, 2 times a day, TAKE ONE TABLET BY MOUTH TWO TIMES DAILY, # 28 tablet, 1Refills, Maintenance, 08/05/22 8:27:00 EDT, Tablet, [facility], Partial fill upon patient request if the prescription is for a schedule I... Start Date: 08/05/22 Stop Date: 09/02/22 Status: Ordered chlorproMAZINE 50 mg oral tablet See Instructions, TAKE ONE TABLET (50MG) BY MOUTH DAILY AT 9AM, 3PM AND TWO TABLETS (100MG) BY MOUTH DAILY AT BEDTIME, # 56 tablet, 1 Refills, Maintenance, 08/05/22 9:34:00 EDT, Tablet, [facility], Partial fill upon patient request if th... Start Date: 08/05/22 Status: Ordered cloNIDine 0.2 mg oral tablet 0.2 mg, 1, tablet, By Mouth, 2 times a day, TAKE ONE TABLET BY MOUTH TWO TIMES DAILY, # 28 tablet, Refills 1, Tot. Refills 1, Maintenance, 08/05/22 8:28:00 EDT, Route to Pharmacy Electronically, [facility], Partial fill upon patient requ... Start Date: 08/05/22 Stop Date: 09/02/22 Status: Ordered divalproex sodium 500 mg oral enteric coated tablet 2 tablets, By Mouth, 2 times a day, TAKE TWO TABLETS (1000MG) BY MOUTH TWO TIMES DAILY, # 56 tablet, 1 Refills, Maintenance, 08/05/22 9:36:00 EDT, Tablet, [facility], Partial fill upon patient request if the prescription is for a schedul... Start Date: 08/05/22 Stop Date: 09/02/22 Status: Ordered docusate sodium 100 mg oral capsule 100 mg, 1, capsule, By Mouth, 2 times a day, TAKE ONE CAPSULE BY MOUTH TWO TIMES DAILY, # 60 capsule, Refills 0, Tot. Refills 0, Maintenance, 08/05/22 8:29:00 EDT, Route to Pharmacy Electronically, [facility], Partial fill upon patient r... Start Date: 08/05/22 Status: Ordered doxycycline hyclate 100 mg oral capsule 1 capsule = 100 mg, By Mouth, 2 times a day, for 10 days, # 20 capsule, 0 Refills, Acute 09/29/22 8:55:00 EDT, 09/19/22 8:55:00 EDT, Capsule, [facility] #[id number], Partial fill upon patient request if the prescription is for a schedule II opioi... Start Date: 09/19/22 Stop Date: 09/29/22 Status: Ordered escitalopram 20 mg oral tablet 1 tablet, By Mouth, Daily, # 90 tablet, 0 Refills, Maintenance, 09/11/22 15:09:00 EDT, [facility] #[id number], 183, cm, 09/02/22 7:54:00 EDT, Height, 122.7, kg, 08/15/22 18:46:00 EDT, Dry Weight Start Date: 09/11/22 Status: Ordered furosemide 80 mg oral tablet 80 mg, 1, tablet, By Mouth, Daily, TAKE ONE TABLET BY MOUTH DAILY, # 14 tablet, Refills 1, Tot. Refills 1, Maintenance, 08/05/22 8:30:00 EDT, Route to Pharmacy Electronically, [facility], Partial fill upon patient request if the prescrip... Start Date: 08/05/22 Stop Date: 09/02/22 Status: Ordered levothyroxine 0.05 mg oral tablet 1 tablet = 50 mcg, By Mouth, Daily, TAKE ONE TABLET BY MOUTH DAILY, # 14 tablet, 1 Refills, Maintenance, 08/05/22 8:30:00 EDT, Tablet, [facility], Partial fill upon patient request if the prescription is for a schedule II opioid drug., 1... Start Date: 08/05/22 Stop Date: 09/02/22 Status: Ordered naproxen 500 mg oral tablet 1 tablet = 500 mg, By Mouth, 2 times a day, PRN Pain , Moderate, # 20 tablet, 0 Refills, Acute 10/05/22 16:02:00 EDT, 09/23/22 16:02:00 EDT, Tablet, [facility] #[id number], Partial fill upon patient request if the prescription is for a schedule I... Start Date: 09/23/22 Stop Date: 10/05/22 Status: Ordered pregabalin 200 mg oral capsule 1 capsule = 200 mg, By Mouth, 2 times a day, TAKE ONE TABLET BY MOUTH TWO TIMES DAILY, # 180 capsule, 0 Refills, Maintenance, 09/02/22 8:31:00 EDT, Capsule, [facility] #[id number], Partial fill upon patient request if the [...] By Mouth, 3 times a day, PRN Spasm, TAKE ONE CAPSULE BY MOUTH THREE TIMES DAILY, # 30 capsule, 0 Refills, Maintenance, 09/17/22 16:23:00 EDT, [facility] #[id number], Partial fill upon patient request if the prescription... Start Date: 09/17/22 Stop Date: 10/01/22 Status: Ordered Ventolin HFA 108 mcg/inh inhalation [...] to [facility] a few times 04/28/2018: started [facility] bup/nal program Last Assessment & Plan: On suboxone 8-2mg bid. Per pt would like to change to methadone. Reports had been getting approx 4 mos ago. States still having cravings with suboxone- but denies any recent use. DW Embossing Clerk and will work to connect him with [...] & Plan: bp wnl-ap 126-regular Pt to [facility] via cab for further eval. 5Outside Source Comment: Last Assessment & Plan: Recent inpt psych hospitalization in [facility]. Denies any SI/HI at this time but very anxious about medications. DW pt no dose adjustments at this time and will need to connect with psych at [facility]- no current psych provider. Pt contracts for safety. Pt did come with rx avail- but sh ort on lorazepam. Will fill at this time but ensure has prescriber on d/c. met with pt todayand psych referral placed. Administration aware. Results Radiology Reports * Exam Date Time Procedure Performing Provider Status 09/23/22 1:46 PM Chest 2 Views Frontal and Lat [address]ren [address]; Auth (Verified) Notes: (Chest 2 Views Frontal and Lat) Reason For Exam: Shortness of Breath RESULT: Chest 2 Views Frontal and Lat Chest 2 Views Frontal and Lat Hx of Present Illness: increased leg swelling; Reason: Shortness of Breath; Clinical Question(s): CHF COMPARISON: Multiple priors, most recent chest x-ray 09/11/2022, CT chest 04/19/2022. FINDINGS: LINES AND TUBES: None. LUNGS AND PLEURA: No focal consolidation. Normal pulmonary vascularity. No pleural effusion. No pneumothorax. HEART, MEDIASTINUM AND WAYNE: Heart is normal in size. Normal mediastinal and hilar contour. BONES AND SOFT TISSUES: No acute abnormality. IMPRESSION: No acute abnormality. I have personally reviewed the images and I agree with this report. WSN: [id number] Ordering Physician: Triston Saravia Dictated By: Gabrielle Rogers MD Dictated Date/Time: 09/23/22 1:56 pm Reviewed By: Kell Cruz MD Signed By: Kell Cruz MD Signed Date/Time: 09/23/22 2:01 pm Transcribed By: RAVINDER Transcribed Date/Time: 09/23/22 1:51 pm Vital Signs Most recent to oldest [Reference Range]: 1 2 3 Height 183 cm (09/23/22 12:22 PM) Weight 126.4 kg (09/23/22 12:22 PM) Oxygen Saturation [94-100 %] 99 % (09/23/22 3:13 PM) 94 % (09/23/22 12:22 PM) 96 % (09/23/22 12:18 PM) Pulse Rate [55-90 bpm] 93 bpm *H* (09/23/22 3:13 PM) 97 bpm *H* (09/23/22 12:22 PM) 105 bpm *H* (09/23/22 12:18 PM) Blood Pressure [90-138/55-84 mm Hg] 119/80mm Hg (09/23/22 3:13 PM) 144/123mm Hg *H* (09/23/22 12:22 PM) Respiratory Rate [16-30 br/min] 18 br/min (09/23/22 3:13 PM) 20 br/min (09/23/22 12:22 PM) 22 br/min (09/23/22 12:18 PM) Temperature [96.8-100.4 DegF] 97.2 DegF (09/23/22 12:22 PM) Mode of Delivery (Oxygen) Room air (09/23/22 3:13 PM) Room air (09/23/22 12:22 PM) Blood pressure sites Arm, left (09/23/22 3:13 PM) Arm, left (09/23/22 12:22 PM) Temperature Route Temporal (09/23/22 12:22 PM) Dry Weight 126.4 kg (09/23/22 12:22 PM) Weight Obtained Via Standing scale (09/23/22 12:22 PM) Dry Weight Obtained Via Standing scale (09/23/22 12:22 PM) Social History Social History Type Response [...] Code MRI Safety Implantable Status 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 [id number] Unknown [id number] Unknown 03/11/21 Unknown Unknown Active GS1 Note * Mansoor Swann MD: PERFORM, SIGN, VERIFY Event Display: Patient Education Handout Authored Date: [id number] * Mansoor Swann MD: PERFORM Event Display: Patient Education Leaflets Authored Date: [id number] Lipoma, No Treatment ?? [id number] Lipoma, No Treatment A??lipoma is a noncancerous (benign) tumor made up of fat tissue. It appears as a soft raised area,just under the skin. It's usually less than??2 inches across. Lipomas often don't need to be treated. But you can have them removed for cosmetic reasons. Sometimes lipomas are uncomfortable. They can put pressure on nearby tissues. This is also a reason to havea lipoma removed. Lipomas may also be biopsied or removed if you or your healthcare provider is unsure of the diagnosis. A biopsy make sure the growth isn't something more concerning. Home care No special care is needed for a lipoma. But let your healthcare provider know if you notice changesto the lipoma. ?? Follow-up care Follow up with your healthcare provider, or as advised. Talk with your provider if you want to havethe lipoma removed at a later time. ?? When to get medical advice Call your healthcare provider right away??if any of the following occur: ??? Redness, pain, tenderness, or drainage??from the lipoma ??? Lipoma starts to enlarge, change shape, or become more solid ??? Changes in the color of the skin over the lipoma ?? Last Reviewed Date: 2021 ?? [employer]. All rights reserved. This information is not intended as a substitute for professional medical care. Always follow your healthcare professional's instructions. ?? Patient Care team information Care Team Personnel Name: Konrad Gallegos RN Position: [facility] ED RN W/OE and Tasks Member Role: Primary Care Nurse Name: Niki Bright RN Position: [facility] RN Member Role: Primary Care Nurse Name: Fang Che Position: [facility] RN Member Role: Primary Care Nurse Name: Trisha Alamo RN Position: [facility] RN Supv Member Role: Primary Care Nurse Name: Rita Son NP Position: [facility] Associate Professional Member Role: Primary Care Nurse Address: Address: [address] [place] [phone] [place] Name: Sol Chanel RN Position: [facility] RN Member Role: Primary Care Nurse Name: Trisha Beltrán RN Position: [facility] RN Supv Member Role: Primary Care Nurse Name: Helene Pérez RN Position: [facility] RN Member Role: Primary Care Nurse Name: Brenda Cuba RN Position: [facility] HBO Wound Member Role: Primary Care Nurse Name: Kell Alonso RN Position: [facility] RN Member Role: Primary Care Nurse Name: Richa Clay LPN Position: [facility] RN Member Role: Primary Care Nurse Name: Екатерина Chacko RN Position: [facility] RN Member Role: Primary Care Nurse Name: Anna Lackey RN Position: [facility] RN Member Role: Primary Care Nurse Name: Marvin Mac MD Position: [facility] Physician - Primary Care Member Role: PCP Address: Address: [address] [place] [phone]- [place] Name: Anna Oconnor RN Position: [facility] Hospital Clothes Shaker Member Role: Primary Care Nurse Name: Kip Gonzalez RN Position: [facility] RN Member Role: Primary Care Nurse Address: Address: [address] [place] [phone]- [place] Name: Anisha Hinds RN Position: [facility] RN Member Role: Primary Care Nurse Name: Sunitha Gutierrez RN Position: [facility] RN Member Role: Primary Care Nurse Name: April Acuña RN Position: [facility] RN Member Role: Primary Care Nurse Name: Li Esquivel RN Position: [facility] Hospital Clothes Shaker Member Role: Primary Care Nurse Name: Tunde White MD Position: [facility] Physician - Behavioral Health Member Role: Lifetime Consulting Physician Address: Address: [address] [place] [address]- Name: Mansoor Rosas RN Position: [facility] ED RN W/OE and Tasks Member Role: Patient Care Provider Name: Nelson Raymond Position: [facility] ED TA [facility] Name: Mansoor Swann MD Position: [facility] ED Medicine MD Member Role: Admitting Physician Address: Address: [address] [place] [address]- Care Team Related Persons Name: FORREST TO Address: home [address] [place] [address] Name: MÓNICA CREWS
--- OUTSIDE RECORDS SUMMARY | 2022-10-14 11:48 | XMS_ITS | Continuity of Care Document ---
Author Name Unknown Organization [facility] Address [address] [place] [address]- Care Team Providers Care Soils Technician Name Role Phone Soto RAMIREZ MD, Bal Serrano Primary Care Physician Encounter [facility] Date(s): 12/07/21 - 12/08/[address] [address]- Encounter Diagnosis Altered mental state(Final) - 12/07/21 Discharge Disposition: A-D/C Home Attending Physician: Bora Mcintosh MD Admitting Physician: Bora Mcintosh MD Referring Physician: Not on Staff, Referring [...] 23:55:00 EDT, Inhaler, Route to Pharmacy Electronically, [id number], [facility] #[id number], 182, cm, 06/20/21 23:10:00 EDT,... Start Date: 06/20/21 Status: Ordered amitriptyline 150 mg oral tablet 1 tablet = 150 mg, By Mouth, Daily at bedtime, # 5 tablet, 4 Refills, Maintenance, 07/11/21 11:18:00 EDT, Tablet, [facility] #[id number], Partial fill upon patient request if the prescription isfor a schedule II opioid drug., 182, cm, 06/20/21 2... Start Date: 07/11/21 Stop Date: 08/05/21 Status: Ordered ARIPiprazole 15 mg oral tablet 15 mg, 1, tablet, By Mouth, Daily, # 7 tablet, Refills 3, Tot. Refills 3, Maintenance, 07/14/21 11:18:00 EDT, Route to Pharmacy Electronically, [facility] #[id number], Partial fill upon patient request if the [...] 3 Refills, Maintenance, 07/14/21 11:19:00 EDT, Tablet, [facility] #[id number], Partial fill upon patient request if the [...] 06/20/21 23:55:00 EDT, Route to Pharmacy Electronically, [facility] #[id number], Partial fill upon patient request if the [...] 3 Refills, Maintenance, 07/14/21 11:19:00 EDT, Tablet, [facility] #[id number], Partial fill upon patient request if the prescription is for a schedule II opioid drug., 182, cm, 06/20/21 23:10:00 EDT... Start Date: 07/14/21 Stop Date: 08/11/21 Status: Ordered docusate sodium 100 mg oral capsule 100 mg, 1, capsule, By Mouth, 2 times a day, # 60 capsule, Refills 0, Tot. Refills 0, Maintenance, 06/20/21 23:57:00 EDT, Route to Pharmacy Electronically, [facility] #[id number], Partial fill upon patient request if the prescription is for a salima... Start Date: 06/20/21 Status: Ordered doxycycline hyclate 100 mg oral capsule 1 capsule = 100 mg, By Mouth, 2 times a day, for 7 days, # 14 capsule, 0 Refills, Acute 12/15/21 10:47:00 EDT, 12/08/21 10:47:00 EDT, Capsule, [facility] #[id number], Partial fill upon patient request if the prescription is for a schedule II opio... Start Date: 12/08/21 Stop Date: 12/15/21 Status: Ordered Flomax 0.4 mg oral capsule 0.4 mg, 1, capsule, By Mouth, Daily, # 30 capsule, Refills 0, Tot. Refills 0, Maintenance, 06/20/2222:57:00 EDT, Route to Pharmacy Electronically, [facility] #[id number], Partial fill upon patient request if the prescription is for a schedule II... Start Date: 06/20/21 Status: Ordered fluticasone 50 mcg/inh nasal spray 2 sprays, Nares, Both, 2 times a day, # 9.9 mL, 0 Refills, Maintenance, 11/15/18 14:21:09 EDT, [place], 2 sprays Nares, Both 2 times a [...] oral tablet 20 mg, Tablet, By Mouth, 12/08/21 9:00:00 EDT Start Date: 12/08/21 Stop Date: 12/08/21 Status: Completed Methadone Liquid 25 mg, Solution, By Mouth, Once, STAT, 12/08/21 8:30:00 EDT, Stop date 12/08/21 8:30:00 EDT Start Date: 12/08/21 Stop Date: 12/08/21 Status: Completed methocarbamol 500 mg oral tablet [...] opioid drug. Start Date: 03/04/21 Status: Ordered pantoprazole 40 mg oral delayed [...] opioid drug. Start Date: 05/21/20 Status: Ordered Tivicay 50 mg oral tablet 1 tablet = 50 mg, By Mouth, Daily, # 5 tablet, 0 Refills, Maintenance, 12/08/21 10:48:00 EDT, Tablet, Partial fill upon patient request if the prescription is for a schedule II opioid drug. Start Date: 12/08/21 Stop Date: 12/13/21 Status: Ordered Tizanidine By Mouth, Refills 0, Maintenance, 06/20/21 23:12:00 EDT, Partial fill upon patient request if the prescription is for a schedule II opioid drug. Start Date: 06/20/21 Status: Ordered tiZANidine 4 mg oral tablet 4 mg, 1, tablet, By Mouth, 2 times a day, # 14 tablet, Refills 0, Tot. Refills 0, Maintenance, 09/08/21 5:22:00 EDT, Route to Pharmacy Electronically, [facility] #[id number], Partial fill upon patient request if the prescription is for a schedule... Start Date: 09/08/21 Stop Date: 09/15/21 Status: Ordered Truvada 200 mg-300 mg oral tablet 1 tablet, By Mouth, Daily, # 5 tablet, 0 Refills, Maintenance, 12/08/21 10:48:00 EDT, Tablet, Partial fill upon patient request if the prescription is for a schedule II opioid drug. Start Date: 12/08/21 Stop Date: 12/13/21 Status: Ordered Valium 10 mg oral tablet [...] Active Generalized anxiety disorder(Confirmed) Active Hypothyroidism(Confirmed) Active Obese class I(Confirmed) Active Vital Signs Most recent to oldest [Reference Range]: 1 2 3 Height 188 cm (12/08/21 4:21 AM) 188 cm (12/07/21 10:44 PM) 188 cm (12/07/21 5:36 PM) Weight 118 kg (12/08/21 4:21 AM) 118 kg (12/07/21 10:44 PM) 118 kg (12/07/21 5:36 PM) Oxygen Saturation [94-100 %] 98 % (12/08/21 11:10 AM) 98 % (12/08/21 4:21 AM) 100 % (12/07/21 10:44 PM) Pulse Rate [55-90 bpm] 82 bpm (12/08/21 11:10 AM) 89 bpm (12/08/21 4:21 AM) 74 bpm (12/07/21 10:44 PM) Body Mass Index [18.5-24.99 kg/m2] 33.39 kg/m2 *>HHI* (12/08/21 4:21 AM) 33.39 kg/m2 *>HHI* (12/07/21 10:44 PM) Blood Pressure [90-138/55-84 mm Hg] 141/71mm Hg *H* (12/08/21 11:10 AM) 124/87mm Hg (12/08/21 4:21 AM) 128/89mm Hg (12/07/21 10:44 PM) Respiratory Rate [16-30 br/min] 18 br/min (12/08/21 11:10 AM) 16 br/min (12/08/21 10:28 AM) 16 br/min (12/08/21 10:22 AM) Temperature [96.8-100.4 DegF] 96.9 DegF (12/08/21 4:21 AM) 97.2 DegF (12/07/21 10:44 PM) 97.6 DegF (12/07/21 5:39 PM) Liters per Minute 2 L/min (12/07/21 10:44 PM) 2 L/min (12/07/21 10:03 PM) Mode of Delivery (Oxygen) Room air (12/08/21 11:10 AM) Room air (12/08/21 4:21 AM) Nasal cannula (12/07/21 10:44 PM) Blood pressure sites Arm, right (12/08/21 11:10 AM) Arm, left (12/08/21 4:21 AM) Arm, left (12/07/21 10:44 PM) Temperature Route Temporal (12/08/21 4:21 AM) Temporal (12/07/21 10:44 PM) Tympanic (12/07/21 5:39 PM) Dry Weight 118 kg (12/08/21 4:21 AM) 118 kg (12/07/21 10:44 PM) 118 kg (12/07/21 5:36 PM) Social History Social History Type Response [...] Code MRI Safety Implantable Status 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 [id number] Unknown [id number] Unknown 03/11/21 Unknown Unknown Active GS1 Care Team Personnel Name: Soto RAMIREZ MD, Bal Serrano Address: [address] [place] [id number]
--- OUTSIDE RECORDS SUMMARY | 2022-10-14 11:48 | XMS_ITS | Continuity of Care Document ---
Author Name Unknown Organization [facility] Address [address] [place] [address]- Care Team Providers Care Cro Name Role Phone Soto RAMIREZ MD, Bal Serrano Primary Care Physician Encounter [facility] Date(s): 01/07/22 - 01/07/[address] [address]- Discharge Disposition: A-D/C Home Attending Physician: Doris HENDERSON, Lizett Quispe Admitting Physician: Lizett George MD Referring Physician: [...] 01/19/22 15:58:00 EST, 01/01/22 15:58:00 EDT, Tablet, [facility] #[id number], Partial fill upon patient request if the [...] 1 Refills, Maintenance, 01/01/22 15:55:00 EDT, Tablet, [facility] #[id number], Partial fill upon patient request if the prescription is for a schedule II opioid drug., 186, cm, 01/01/22 11:49:00 EDT... Start Date: 01/01/22 Stop Date: 01/29/22 Status: Ordered benztropine 1 mg oral tablet 1 mg, 1, tablet, By Mouth, Daily, # 14 tablet, Refills 1, Tot. Refills 1, Maintenance, 01/01/22 15:54:00 EDT, Route to Pharmacy Electronically, [facility] #[id number], Partial fill upon patient request if the prescription is for a schedule II opi... Start Date: 01/01/22 Stop Date: 01/29/22 Status: Ordered busPIRone 15 mg oral tablet 1 tablet = 15 mg, By Mouth, 3 times a day, # 30 tablet, 2 Refills, Maintenance, 01/01/22 15:55:00 EDT, Tablet, [facility] #[id number], Partial fill upon patient request if the [...] 01/01/22 15:56:00 EDT, Route to Pharmacy Electronically, [facility] #[id number], Partial fill upon patient request if the [...] 2 Refills, Maintenance, 01/01/22 15:54:00 EDT, Tablet, [facility] #[id number], Partial fill upon patient request if the prescription is for a schedule II opioid drug., 186, cm, 01/01/22 11:49:00 E... Start Date: 01/01/22 Stop Date: 01/31/22 Status: Ordered docusate sodium 100 mg oral capsule 100 mg, 1, capsule, By Mouth, 2 times a day, # 60 capsule, Refills 0, Tot. Refills 0, Maintenance, 06/20/21 23:57:00 EDT, Route to Pharmacy Electronically, [facility] #[id number], Partial fill upon patient request if the prescription is for a salima... Start Date: 06/20/21 Status: Ordered furosemide 40 mg oral tablet 80 mg, 2, tablet, By Mouth, Daily, # 14 tablet, Refills 1, Tot. Refills 1, Maintenance, 01/02/22 9:27:00 EDT, Route to Pharmacy Electronically, [facility] #[id number], Partial fill upon patient request if the prescription is for a schedule II opi... Start Date: 01/02/22 Stop Date: 01/16/22 Status: Ordered hydrOXYzine pamoate 25 mg oral capsule 2 capsule = 50 mg, By Mouth, 3 times a day, PRN Anxiety, for 7 days, # 30 capsule, 2 Refills, Acute01/22/22 15:54:00 EST, 01/01/22 15:54:00 EDT, Capsule, [facility] #[id number], Partial fill upon patient request if the prescription is for a sche... Start Date: 01/01/22 Stop Date: 01/22/22 Status: Ordered levothyroxine 0.05 mg oral tablet 1 tablet = 50 mcg, By Mouth, Daily, # 14 tablet, 1 Refills, Maintenance, 01/02/22 9:22:00 EDT, Tablet, [facility] #[id number], Partial fill upon patient request if the [...] 2 Refills, Maintenance, 01/01/22 15:54:00 EDT, Capsule, [facility] #[id number], Partial fill upon patient request if the [...] Soma 350 mg oral tablet 350 mg, Tablet, By Mouth, Once, JAZLYN, 01/07/22 4:02:00 EDT, Stop date 01/07/22 4:02:00 EDT Start Date: 01/07/22 Stop Date: 01/07/22 Status: Completed Soma 350 mg oral tablet 350 mg, [...] 01/02/22 9:33:00 EDT, Route to Pharmacy Electronically, [facility] #[id number], Partialfill upon patient request if the prescription [...] to oldest [Reference Range]: 1 2 Height 185 cm (01/07/22 3:39 AM) 185 cm (01/07/22 3:34 AM) Weight 100 kg (01/07/22 3:39 AM) 100 kg (01/07/22 3:34 AM) Oxygen Saturation [94-100 %] 98 % (01/07/22 3:34 AM) Pulse Rate [55-90 bpm] 85 bpm (01/07/22 3:34 AM) Body Mass Index [18.5-24.99 kg/m2] 29.22 kg/m2 *H* (01/07/22 3:34 AM) Blood Pressure [90-138/55-84 mm Hg] 145/ 86mm Hg *H* (01/07/22 3:34 AM) Respiratory Rate [16-30 br/min] 18 br/mi n (01/07/22 4:11 AM) 18 br/min (01/07/22 3:34 AM) Temperature [96.8-100.4 DegF] 98.6 DegF (01/07/22 3:34 AM) Mode of Delivery (Oxygen) Room air (01/07/22 3:34 AM) Blood pressure sites Arm, left (01/07/22 3:34 AM) Temperature Route Oral (01/07/22 3:34 AM) Dry Weight 100 kg (01/07/22 3:39 AM) 100 kg (01/07/22 3:34 AM) Weight Obtained Via Patient/family state d (01/07/22 3:34 AM) Dry Weight Obtained Via Patient/family s tated (01/07/22 3:34 AM) Social History Social History Type Response [...] Code MRI Safety Implantable Status 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 [id number] Unknown [id number] 2 Unknown 03/11/21 Unknown Unknown Active GS1 Patient Care team information Personnel Name: Soto RAMIREZ MD, Bal Serrano Address: Address: [address] [place] [id number]
--- OUTSIDE RECORDS SUMMARY | 2022-10-14 11:48 | XMS_ITS | Continuity of Care Document ---
Author Name Unknown Organization [facility] Address [address] [place] [address]- Care Team Providers Care Junior Software Engineer Name Role Phone Soto RAMIREZ MD, Bal Serrano Primary Care Physician Encounter [facility] Date(s): 01/10/21 - 02/09/21 [facility] [address] [place], [place] [address] Attending Physician: Admtr, Ar8 Admitting Physician: Admtr, [...] 02/13/1911:48:23 EST, Aerosol, Route to Pharmacy Electronically, [id number], [facility]/pharmacy #[id number] Start Date: 02/13/19 Status: Ordered amitriptyline 100 mg oral tablet 1 tablet = 100 mg, By Mouth, Daily at bedtime, # 7 tablet, 3 Refills, Maintenance, 04/15/20 10:15:00 EST, Tablet, [facility] #[id number], Partial fill upon patient request if the prescription isfor a schedule II opioid drug., 183, cm, 04/15/20 0... Start Date: 04/15/20 Stop Date: 05/13/20 Status: Ordered amitriptyline 25 mg oral tablet 75 mg, 3, tablet, By Mouth, Daily, # 21 tablet, Refills 3, Tot. Refills 3, Maintenance, 04/13/20 14:55:00 EST, Route to Pharmacy Electronically, [facility] #[id number], Partial fill upon patientrequest if the prescription is for a schedule II op... Start Date: 04/13/20 Stop Date: 05/11/20 Status: Ordered busPIRone 15 mg oral tablet 1 tablet = 15 mg, By Mouth, 3 times a day, # 42 tablet, 1 Refills, Maintenance, 04/13/20 14:56:00 EST, Tablet, [facility] #[id number], Partial fill upon patient request if the [...] 09/13/20 14:45:00 EDT, Route to Pharmacy Electronically, [facility] #[id number], Partial fill upon patient request if the [...] Maintenance, 10/22/2121:52:00 EDT, Route to Pharmacy Electronically, [facility] #[id number], Partial fill upon patient request if the prescription is for a schedule II... Start Date: 10/22/20 Status: Ordered fluticasone 50 mcg/inh nasal spray 2 sprays, Nares, Both, 2 times a day, # 9.9 mL, 0 Refills, Maintenance, 11/15/18 14:21:09 EDT, [place], 2 sprays Nares, Both 2 times a [...] 0 Refills, Maintenance, 01/07/21 18:42:00 EDT, Tablet, [facility] #[id number], Partial fill upon patient request if the [...] 05/28/21 9:00:00 EDT, 05/28/20 15:55:00 EDT, Patch, [facility] #[id number], Partial fill upon patient request if the [...] 04/13/20 14:57:00 EST, Route to Pharmacy Electronically, [facility] #[id number], Partial fill upon patient request if the [...] 0 Refills, Maintenance, 07/27/20 19:15:00 EDT, Tablet, [facility] #[id number], Partial fill upon patient request if the [...] MESH VENTRALIGHT ECHO ELLIPS 4 - BARD ([id number]) 1 Bard Unknown HAYDEE:{01}[id number] Assigning Author ity:FDA
--- OUTSIDE RECORDS SUMMARY | 2022-10-14 11:48 | XMS_ITS | Continuity of Care Document ---
Author Name Unknown Organization [facility] Address [address] [place] [address]- Care Team Providers Care Radiology Transporter Name Role Phone Not on Staff, PCP Primary Care Physician Unavail able Encounter [facility] Date(s): 07/11/22 - 07/11/[address] [address]- Discharge Disposition: A-D/C Home Attending Physician: Triston Saravia MD Admitting Physician: Triston Saravia MD Referring Physician: Not on Staff, Referring MD Allergies, Adverse Reactions, Alerts Substance Reaction Severity Status Zoloft Active Thorazine Active traZODone Active ZyPREXA Active Immunizations Given and Recorded Vaccine Date Status Refusal Reason tetanus/diphtheria/pertussis, acel(Tdap) 04/09/22 Recorded tetanus/diphtheria/pertussis, acel(Tdap) 05/18/18 Recorded tetanus/diphtheria/pertussis, acel(Tdap) 12/19/16 Recorded [id number] 12y+ bivalent booster vax 02/11/22 Recorded SARS-CoV-2 [...] Daily, # 14 tablet, 1 Refills, Maintenance, 05/08/22 12:50:00 EST, Tablet, [facility] #[id number], Partial fill upon patient request if the prescription is for a schedule II opioid drug., yolanda Go, 05/08/22 7:19:00 EST,... Start Date: 05/08/22 Stop Date: 06/05/22 Status: Ordered benztropine 1 mg oral tablet 1 mg, 1, tablet, By Mouth, Daily, # 14 tablet, Refills 1, Tot. Refills 1, Maintenance, 05/08/22 12:50:00 EST, Route to Pharmacy Electronically, [facility] #[id number], Partial fill upon patient request if the prescription is for a schedule II opi... Start Date: 05/08/22 Stop Date: 06/05/22 Status: Ordered busPIRone 30 mg oral tablet 1 tablet = 30 mg, By Mouth, 2 times a day, # 28 tablet, 0 Refills, Maintenance, 05/08/22 12:59:00 EST, Tablet, [facility] #[id number], Partial fill upon patient request if the prescription is for a schedule II opioid drug., 176yolanda, 05/08/22 7:19... Start Date: 05/08/22 Stop Date: 05/22/22 Status: Ordered chlorproMAZINE 100 mg oral tablet = 100 mg, By Mouth, Daily at bedtime, # 14 tablet, 0 Refills, Maintenance, 05/08/22 12:52:00 EST, Tablet, [facility] #[id number], Partial fill upon patient request if the prescription is for a schedule II opioid drug., yolanda Go, 05/08/22 7:19:00 E... Start Date: 05/08/22 Stop Date: 05/22/22 Status: Ordered chlorproMAZINE 50 mg oral tablet = 50 mg, By Mouth, Daily before lunch, # 14 tablet, 0 Refills, Maintenance, 05/08/22 12:51:00 EST, Tablet, [facility] #[id number], Partial fill upon patient request if the prescription is for a schedule II opioid drug., Abbi, yolanda, 05/08/22 7:19:00... Start Date: 05/08/22 Stop Date: 05/22/22 Status: Ordered chlorproMAZINE 50 mg oral tablet 1 tablet = 50 mg, By Mouth, Daily in AM, # 180 tablet, 0 Refills, Maintenance, 05/08/22 12:53:00 EST, Tablet, [facility] #[id number], Partial fill upon patient request if the prescription is fora schedule II opioid drug., 176yolanda, 05/08/22 7:19:... Start Date: 05/08/22 Status: Ordered cloNIDine 0.2 mg oral tablet 0.2 mg, 1, tablet, By Mouth, 2 times a day, # 20 tablet, Refills 2, Tot. Refills 2, Maintenance, 01/01/22 15:56:00 EDT, Route to Pharmacy Electronically, [facility] #[id number], Partial fill upon patient request if the prescription is for a sched... Start Date: 01/01/22 Stop Date: 01/31/22 Status: Ordered diazepam 5 mg oral tablet 5 mg, 1, tablet, By Mouth, 2 times a day, # 10 tablet, Refills 0, Tot. Refills 0, Acute 07/16/22 8:53:00 EDT, 07/11/22 8:53:00 EDT, Route to Pharmacy Electronically, [facility] #[id number], Partial fill upon patient request if the prescription is... Start Date: 07/11/22 Stop Date: 07/16/22 Status: Ordered divalproex sodium 500 mg oral enteric coated tablet 1 tablet = 500 mg, By Mouth, Daily in AM, # 14 tablet, 0 Refills, Maintenance, 05/08/22 12:49:00 EST, Tablet, [facility] #[id number], Partial fill upon patient request if the prescription is fora schedule II opioid drug., 176, yolanda, 05/08/22 7:19:... Start Date: 05/08/22 Stop Date: 05/22/22 Status: Ordered divalproex sodium 500 mg oral enteric coated tablet 2 tablets, By Mouth, Daily at bedtime, # 28 tablet, 0 Refills, Maintenance, 05/08/22 12:49:00 EST, Tablet, [facility] #[id number], Partial fill upon patient request if the prescription is for a schedule II opioid drug., 176, yolanda, 05/08/22 7:19:00... Start Date: 05/08/22 Stop Date: 05/22/22 Status: Ordered docusate sodium 100 mg oral capsule 100 mg, 1, capsule, By Mouth, 2 times a day, # 60 capsule, Refills 0, Tot. Refills 0, Maintenance, 06/20/21 23:57:00 EDT, Route to Pharmacy Electronically, [facility] #[id number], Partial fill upon patient request if the prescription is for a salima... Start Date: 06/20/21 Status: Ordered escitalopram 10 mg oral tablet 1 tablet = 10 mg, By Mouth, Daily, # 30 tablet, 5 Refills, Maintenance, 03/11/22 10:23:00 EST, Tablet, Partial fill upon patient request if the prescription is for a schedule II opioid drug. Start Date: 03/11/22 Status: Ordered fluticasone 50 mcg/inh nasal spray 2 sprays, Nares, Both, Daily in AM, 0 Refills, Maintenance, 03/10/22 8:17:00 EST, [place], Partial fill upon patient request if the prescription is for a schedule II opioid drug. Start Date: 03/10/22 Status: Ordered furosemide 80 mg oral tablet 80 mg, 1, tablet, By Mouth, Daily, # 30 tablet, Refills 0, Maintenance, 04/19/22 23:10:00 EST, Partial fill upon patient request if the prescription is for a schedule II opioid drug. Start Date: 04/19/22 Status: Ordered levothyroxine 0.05 mg oral tablet 1 tablet = 50 mcg, By Mouth, Daily, # 14 tablet, 1 Refills, Maintenance, 01/02/22 9:22:00 EDT, Tablet, [facility] #[id number], Partial fill upon patient request if the prescription is for a schedule II opioid drug., 186, cm, 01/02/22 8:00:00 EDT,... Start Date: 01/02/22 Stop Date: 01/30/22 Status: Ordered omeprazole 40 mg oral enteric coated capsule 1 capsule = 40 mg, By Mouth, Daily, # 30 capsule, 0 Refills, Maintenance, 03/11/22 10:23:00 EST, [facility], Partial fill upon patient request if the prescription is for a schedule II opioid drug. Start Date: 03/11/22 Status: Ordered pregabalin 200 mg oral capsule 1 capsule = 200 mg, By Mouth, 2 times a day, 0 Refills, Maintenance, 04/19/22 23:11:00 EST, Capsule, Partial fill upon patient request if the prescription is for a schedule II opioid drug. Start Date: 04/19/22 Status: Ordered Protonix 20 mg oral delayed [...] opioid drug. Start Date: 05/20/22 Status: Ordered tamsulosin 0.4 mg oral capsule 0.4 mg, 1, capsule, By Mouth, Daily at bedtime, # 30 capsule, Refills 0, Maintenance, 03/11/22 10:26:00 EST, Partial fill upon patient request if the prescription is for a schedule II opioid drug. Start Date: 03/11/22 Status: Ordered Ventolin HFA 108 mcg/inh inhalation [...] Allergic rhinitis Confirmed Active Asthma Confirmed Active COVID-19 1 Confirmed 03/11/22 Active Bipolar disorder with depression Confirmed Active GERD (gastroesophageal reflux disease) Confirmed Active Generalized anxiety disorder Confirmed Active Hypothyroidism Confirmed Active Severe obesity (BMI 35.0-39.9) with comorbidity Confirmed Active 1Problem added by Discern Expert Vital Signs Most recent to oldest [Reference Range]: 1 2 Height 183 cm (07/11/22 8:53 AM) 183 cm (07/11/22 8:09 AM) Weight 119 kg (07/11/22 8:53 AM) 119 kg (07/11/22 8:09 AM) Oxygen Saturation [94-100 %] 96 % (07/11/22 8:53 AM) Pulse Rate [55-90 bpm] 81 bpm (07/11/22 8:53 AM) Body Mass Index [18.5-24.99 kg/m2] 35.53 kg/m2 *>HHI* (07/11/22 8:53 AM) Blood Pressure [90-138/55-84 mm Hg] 122/ 87mm Hg (07/11/22 8:53 AM) Respiratory Rate [16-30 br/min] 22 br/mi n (07/11/22 8:53 AM) Mode of Delivery (Oxygen) Room air (07/11/22 8:53 AM) Blood pressure sites Arm, left (07/11/22 8:53 AM) Dry Weight 119 kg (07/11/22 8:53 AM) 119 kg (07/11/22 8:09 AM) Social History Social History Type Response [...] Code MRI Safety Implantable Status 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 [id number] Unknown [id number] Unknown 03/11/21 Unknown Unknown Active GS1 Note * Triston Saravia MD: PERFORM Event Display: Patient Education Leaflets Authored Date: [id number] Anxiety Reaction ?? [id number] Anxiety??Reaction Anxiety is the feeling we all get when we think something bad might happen. It is a normal responseto stress. It most often causes only a mild reaction. But it can interfere with daily life when anxiety is more severe. In some cases, you may not know what you???re anxious about. Anxiety seems to have both mental and physical triggers. You may have stress from home and family. Or work and social relationships. Anxiety tends to run in families. This may mean it???s linked to genes. During an anxiety reaction, you may feel: ??? Helpless ??? Nervous ??? Depressed ??? Grouchy Your body may show signs of anxiety in many ways. You may have: ??? Dry mouth ??? Shakiness ??? Dizziness ??? Weakness ??? Trouble breathing ??? Fast breathing ???Chest pressure ??? Sweating ??? Headache ??? Nausea ??? Diarrhea ??? Tiredness ??? Inability to sleep ??? Sexual problems Home care Try to find those things that set off anxiety in your life. They may not be obvious. They may include: ??? Daily hassles of life. This can include traffic jams, missed appointments, or car troubles. ???Major life changes. This means both good changes, such as a new baby or job promotion. This can also mean tough life changes, such as loss of a job or loss of a loved one. ??? Overload. This means feeling that you have too many responsibilities. And that you can't take care of all of them. ??? Feeling helpless. You may feel you don???t have any control or choices. You may feel that your problems can't be solved. Notice how your body reacts to stress. This will help you take action before the stress sets off anxiety. When you can, make changes to reduce the sources of your stress. But stress in life often can't be prevented. It is important to learn how to manage stress to reduce anxiety. There are many proven methods that will reduce your anxiety. These include: ??? Exercise ??? Good nutrition ??? Getting enough sleep ??? Relaxation methods ??? Breathing exercises ??? Visualization ??? Biofeedback ??? Meditation ??? Counseling ??? Medicine For more information about this, talk with your healthcare provider. Or check online or at your local library or bookstore. You'll find many books and audiobooks on this subject. ?? Follow-up care If you feel your anxiety is not getting better with self-help, call your healthcare provider. Or make an appointment with a counselor. You may need short-term counseling or medicine to help you manage anxiety. ?? Call 911 Call 911 if any of the following occur: ??? Trouble breathing ??? Confusion ??? Drowsiness or trouble waking up ??? Fainting ??? Rapid heart rate ??? Seizure ??? New chest pain that becomes more severe, lasts longer, or spreads into your shoulder, arm, neck, jaw, or back Call or text [phone] if you have thoughts of harming yourself or others. You will be connected to trained crisis counselors at the National Suicide Prevention Lifeline. An online chat option is also available at www.suicidepreventionlifeline.org. You can also call Lifeline at 925-533-EBQU (176-338-8198). Lifeline is free and available 05/10. ?? When to get medical advice Call your healthcare provider right away if any of the following occur: ??? Symptoms that don't improve or get worse, such as feelings of hopelessness or overwhelming sadness ??? Severe headache not eased by rest and mild pain medicine The National Suicide Prevention Lifeline is available at 882-044-QXQY (972-095-7429). The Lifeline is available 05/10 and provides free and confidential support. The Lifeline also has an online chat at www.suicidePodPonics.org. ?? Last Reviewed Date: 2021 ?? The [employer]. All rights reserved. This information is not intended as a substitute for professional medical care. Always follow your healthcare professional's instructions. ?? Patient Care team information Care Team Personnel Name: Konrad Gallegos RN Position: [facility] ED RN W/OE and Tasks Member Role: Primary Care Nurse Name: Niki Bright RN Position: [facility] RN Member Role: Primary Care Nurse Name: Fang Che Position: [facility] RN Member Role: Primary Care Nurse Name: Trisha Alamo RN Position: [facility] RN Supv Member Role: Primary Care Nurse Name: Rita Son NP Position: [facility] Associate Professional Member Role: Primary Care Nurse Address: Address: [address] [place] [address]- [place] Name: Sol Chanel RN Position: [facility] RN Member Role: Primary Care Nurse Name: Trisha Beltrán RN Position: [facility] RN Supv Member Role: Primary Care Nurse Name: Helene Pérez RN Position: [facility] RN Member Role: Primary Care Nurse Name: Brenda Cuba RN Position: [facility] HBO Wound Member Role: Primary Care Nurse Name: Kell Alonso RN Position: [facility] RN Member Role: Primary Care Nurse Name: Faraz Barriga RN Position: [facility] RN Member Role: Primary Care Nurse Name: Richa Clay LPN Position: [facility] RN Member Role: Primary Care Nurse Name: Екатерина Chacko RN Position: [facility] RN Member Role: Primary Care Nurse Name: Anna Lackey RN Position: [facility] RN Member Role: Primary Care Nurse Name: Elizabeth Ha RN Position: [facility] RN Member Role: Primary Care Nurse Name: Not on Staff, PCP Position: [facility] Physician (General Medicine) Member Role: PCP Name: Anna Oconnor RN Position: [facility] Engraving Supervisor Member Role: Primary Care Nurse Name: Kip Gonzalez RN Position: [facility] RN Member Role: Primary Care Nurse Address: Address: [address] [place] [address]- [place] Name: Anisha Hinds RN Position: [facility] RN Member Role: Primary Care Nurse Name: Sunitha Gutierrez RN Position: [facility] RN Member Role: Primary Care Nurse Name: April Acuña RN Position: [facility] RN Member Role: Primary Care Nurse Name: Li Esquivel RN Position: [facility] Engraving Supervisor Member Role: Primary Care Nurse Name: Tunde White MD Position: [facility] Psychiatry MD Member Role: [employer] Consulting Physician Address: Address: [address] [place] [address]- [place] Name: Triston Saravia MD Position: [facility] ED Medicine MD Member Role: Admitting Physician Address: Address: [address] [facility] [place] [address]- [place] Name: Katt Hu RN Position: [facility] ED RN W/OE and Tasks Member Role: Patient Care Provider Name: Trisha Edwards Position: [facility] ED TA [facility] Care Team Related Persons Name: FORREST TO Address: [address] [place] [address] Name: MÓNICA CREWS
--- OUTSIDE RECORDS SUMMARY | 2022-10-14 11:48 | XMS_ITS | Continuity of Care Document ---
Author Name Unknown Organization [facility] Address [address] [place] [address]- Care Team Providers Care Natural Gas Inspector Name Role Phone Elijah Gibbons MD Primary Care Physician [place] [facility] [place] 03/31[place] - 04/10/[facility] [address] [place] [address]- [facility] Attending Physician: Admtr, Ar8 Admitting Physician: [...] 02/13/1911:48:23 EST, Aerosol, Route to Pharmacy Electronically, [id number], [facility]/pharmacy #1111 Start Date: 02/13/19 Status: Ordered busPIRone [...] Refills, Maintenance, 02/28/19 12:11:45 EST, EC Tablet, [facility]/pharmacy #1111, 183, cm, 02/28/19 11:39:08 EST, Height, [...] Maintenance, 198:58:23 EST, Route to Pharmacy Electronically, [id number], [facility]/pharmacy #1111, 183, cm, 02/17/19 8:22:07 EST, Height, 127, kg... Start Date: 02/17/19 Status: Ordered fluticasone 50 mcg/inh nasal spray 2 sprays, Nares, Both, 2 times a day, # 9.9 mL, 0 Refills, Maintenance, 11/15/18 14:21:09 EDT, [place], 2 sprays Nares, Both 2 times a day Start Date: 11/15/18 Status: Ordered gabapentin 100 mg oral capsule 100 mg, 1, capsule, By Mouth, Daily at bedtime, # 30 capsule, Refills 0, Tot. Refills 0, Maintenance, 02/28/19 12:13:04 EST, Route to Pharmacy Electronically, [facility]/pharmacy #1111, 183, cm, 02/28/19 11:39:08 EST, Height, [...]
--- OUTSIDE RECORDS SUMMARY | 2022-10-14 11:48 | XMS_ITS | Continuity of Care Document ---
Author Name Unknown Organization [facility] Address [address] [place] [address]- Care Team Providers Care Mechanical Manager Name Role Phone Soto RAMIREZ MD, Bal Serrano Primary Care Physician ( [phone] Encounter [facility] Date(s): 12/13/21 - 12/13/[address] [address]- Encounter Diagnosis Chronic pain of right ankle(Final) - 12/13/21 Mild sprain of right ankle(Final) - 12/13/21 Discharge Disposition: A-D/C Home Attending Physician: Triston [...] 23:55:00 EDT, Inhaler, Route to Pharmacy Electronically, [id number], [facility] #[id number], 182, cm, 06/20/21 23:10:00 EDT,... Start Date: 06/20/21 Status: Ordered amitriptyline 150 mg oral tablet 1 tablet = 150 mg, By Mouth, Daily at bedtime, # 5 tablet, 4 Refills, Maintenance, 07/11/21 11:18:00 EDT, Tablet, [facility] #[id number], Partial fill upon patient request if the prescription isfor a schedule II opioid drug., 182, cm, 06/20/21 2... Start Date: 07/11/21 Stop Date: 08/05/21 Status: Ordered ARIPiprazole 15 mg oral tablet 15 mg, 1, tablet, By Mouth, Daily, # 7 tablet, Refills 3, Tot. Refills 3, Maintenance, 07/14/21 11:18:00 EDT, Route to Pharmacy Electronically, [facility] #[id number], Partial fill upon patient request if the [...] 3 Refills, Maintenance, 07/14/21 11:19:00 EDT, Tablet, [facility] #[id number], Partial fill upon patient request if the [...] 06/20/21 23:55:00 EDT, Route to Pharmacy Electronically, [facility] #[id number], Partial fill upon patient request if the [...] 3 Refills, Maintenance, 07/14/21 11:19:00 EDT, Tablet, [facility] #[id number], Partial fill upon patient request if the prescription is for a schedule II opioid drug., 182, cm, 06/20/21 23:10:00 EDT... Start Date: 07/14/21 Stop Date: 08/11/21 Status: Ordered docusate sodium 100 mg oral capsule 100 mg, 1, capsule, By Mouth, 2 times a day, # 60 capsule, Refills 0, Tot. Refills 0, Maintenance, 06/20/21 23:57:00 EDT, Route to Pharmacy Electronically, [facility] #[id number], Partial fill upon patient request if the prescription is for a salima... Start Date: 06/20/21 Status: Ordered doxycycline hyclate 100 mg oral capsule 1 capsule = 100 mg, By Mouth, 2 times a day, for 7 days, # 14 capsule, 0 Refills, Acute 12/15/21 10:47:00 EDT, 12/08/21 10:47:00 EDT, Capsule, [facility] #[id number], Partial fill upon patient request if the prescription is for a schedule II opio... Start Date: 12/08/21 Stop Date: 12/15/21 Status: Ordered Flomax 0.4 mg oral capsule 0.4 mg, 1, capsule, By Mouth, Daily, # 30 capsule, Refills 0, Tot. Refills 0, Maintenance, 06/20/2222:57:00 EDT, Route to Pharmacy Electronically, [facility] #[id number], Partial fill upon patient request if the prescription is for a schedule II... Start Date: 06/20/21 Status: Ordered fluticasone 50 mcg/inh nasal spray 2 sprays, Nares, Both, 2 times a day, # 9.9 mL, 0 Refills, Maintenance, 11/15/18 14:21:09 EDT, [place], 2 sprays Nares, Both 2 times a [...] opioid drug. Start Date: 09/07/21 Status: Ordered methocarbamol 500 mg oral tablet [...] 09/08/21 5:22:00 EDT, Route to Pharmacy Electronically, [facility] #[id number], Partial fill upon patient request if the [...] Date: 09/07/21 Status: Ordered Problem List Condition Confirmation Course Effective Dates Status H ealt Status Informant Allergic rhinitis Confirmed Active Asthma Confirmed Active Bipolar disorder with depression Confirmed Active GERD (gastroesophageal reflux disease) Confirmed Active Generalized anxiety disorder Confirmed Active Hypothyroidism Confirmed Active Obese class I Confirmed Active Results Radiology Reports * Exam Date Time Procedure Performing Provider Status 12/13/21 1:29 PM Ankle Min 3 Views Left Mai Goodwin ; Cass (Verified) Notes: (Ankle Min 3 Views Left) Reason For Exam: Slipped in water on his floor this morning causing twisting of both ankles;Trauma RESULT: Ankle Min 3 Views Left Ankle Min 3 Views Left Hx of Present Illness: Reports slipped on a wire and hit R ankle approx 1 hour ago. Also requestingrefill of HIV pep medications.; Reason: Trauma; Slipped in water on his floor this morning causing twisting of both ankles; Clinical Question(s): Fracture COMPARISON: None. FINDINGS: Questionable nondisplaced fracture of the posterior talus versus projection artifact. Intact ankle mortise and talar dome. No arthritic changes. Soft tissue swelling of the lower leg. IMPRESSION: Questionable nondisplaced fracture of the posterior talus versus projection artifact. Please correlate with patient's symptoms and consider follow-up radiographs in 1-2 weeks. WSN: [id number] Ordering Physician: Joanna Fan Dictated By: Darryl Ch MD Dictated Date/Time: 12/13/21 1:44 pm Reviewed By: Darryl Ch MD Signed By: Darryl Ch MD Signed Date/Time: 12/13/21 1:44 pm Transcribed By: RAVINDER Transcribed Date/Time: 12/13/21 1:40 pm * Exam Date Time Procedure Performing Provider Status 12/13/21 1:29 PM Ankle Min 3 Views Right Lupe Goodwin (Verified) Notes: (Ankle Min 3 Views Right) Reason For Exam: Slipped in water on his floor this morning causing twisting of both ankles;Trauma RESULT: Ankle Min 3 Views Right Ankle Min 3 Views Right Hx of Present Illness: Reports slipped on a wire and hit R ankle approx 1 hour ago. Also requestingrefill of HIV pep medications.; Reason: Trauma; Slipped in water on his floor this morning causing twisting of both ankles; Clinical Question(s): Fracture COMPARISON: None. FINDINGS: Status post ORIF of distal right fibula with plate and screw construct. Hardware is intact. Some ossification of the interosseous ligament. No evidence of acute or healing fracture or bone lesion. Intact ankle mortise and talar dome. No arthritic changes. Soft tissue swelling of the lower leg. IMPRESSION: No acute fracture. Status post ORIF of distal fibula. WSN: [id number] Ordering Physician: Joanna Fan Dictated By: Darryl Ch MD Dictated Date/Time: 12/13/21 1:40 pm Reviewed By: Darryl Ch MD Signed By: Darryl Ch MD Signed Date/Time: 12/13/21 1:40 pm Transcribed By: RAVINDER Transcribed Date/Time: 12/13/21 1:39 pm Vital Signs Most recent to oldest [Reference Range]: 1 2 Height 186 cm (12/13/21 12:04 PM) 185 cm (12/13/21 12:03 PM) Weight 109.9 kg (12/13/21 12:04 PM) 109.09 kg (12/13/21 12:03 PM) Oxygen Saturation [94-100 %] 100 % (12/13/21 2:39 PM) 100 % (12/13/21 12:03 PM) Pulse Rate [55-90 bpm] 80 bpm (12/13/21 2:39 PM) 78 bpm (12/13/21 12:03 PM) Body Mass Index [18.5-24.99 kg/m2] 31.87 kg/m2 *>HHI* (12/13/21 12:03 PM) Blood Pressure [90-138/55-84 mm Hg] 104/ 62mm Hg (12/13/21 2:39 PM) 107/46mm Hg (12/13/21 12:03 PM) Temperature [96.8-100.4 DegF] 96.6 DegF *L* (12/13/21 12:03 PM) Mode of Delivery (Oxygen) Room air (12/13/21 2:39 PM) Room air (12/13/21 12:03 PM) Temperature Route Temporal (12/13/21 12:03 PM) Dry Weight 109.9 kg (12/13/21 12:04 PM) 109.09 kg (12/13/21 12:03 PM) Weight Obtained Via Standing scale (12/13/21 12:03 PM) Dry Weight Obtained Via Standing scale (12/13/21 12:03 PM) Social History Social History Type Response [...] Code MRI Safety Implantable Status 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 [id number] Unknown [id number] Unknown 03/11/21 Unknown Unknown Active GS1 XR Ankle - right GE 3 Views * TAVARES Aparicio S: Darryl Kent MD: VERIFY Event Display: Result: Authored Date: Ankle Min 3 Views Right Hx of Present Illness: Reports slipped on a wire and hit R ankle approx 1 hour ago. Also requestingrefill of HIV pep medications.; Reason: Trauma; Slipped in water on his floor this morning causing twisting of both ankles; Clinical Question(s): Fracture COMPARISON: None. FINDINGS: Status post ORIF of distal right fibula with plate and screw construct. Hardware is intact. Some ossification of the interosseous ligament. No evidence of acute or healing fracture or bone lesion. Intact ankle mortise and talar dome. No arthritic changes. Soft tissue swelling of the lower leg. IMPRESSION: No acute fracture. Status post ORIF of distal fibula. WSN: [id number] Ordering Physician: Joanna Fan Dictated By: Darryl Ch MD Dictated Date/Time: 12/13/21 1:40 pm Reviewed By: Darryl Ch MD Signed By: Darryl Ch MD Signed Date/Time: 12/13/21 1:40 pm Transcribed By: RAVINDER Transcribed Date/Time: 12/13/21 1:39 pm XR Ankle - left GE 3 Views * TAVARES Aparicio S: Darryl Kent MD: VERIFY Event Display: Result: Authored Date: Ankle Min 3 Views Left Hx of Present Illness: Reports slipped on a wire and hit R ankle approx 1 hour ago. Also requestingrefill of HIV pep medications.; Reason: Trauma; Slipped in water on his floor this morning causing twisting of both ankles; Clinical Question(s): Fracture COMPARISON: None. FINDINGS: Questionable nondisplaced fracture of the posterior talus versus projection artifact. Intact ankle mortise and talar dome. No arthritic changes. Soft tissue swelling of the lower leg. IMPRESSION: Questionable nondisplaced fracture of the posterior talus versus projection artifact. Please correlate with patient's symptoms and consider follow-up radiographs in 1-2 weeks. WSN: [id number] Ordering Physician: Joanna Fan Dictated By: Darryl Ch MD Dictated Date/Time: 12/13/21 1:44 pm Reviewed By: Darryl Ch MD Signed By: Darryl Ch MD Signed Date/Time: 12/13/21 1:44 pm Transcribed By: RAVINDER Transcribed Date/Time: 12/13/21 1:40 pm Patient Care team information Personnel Name: Soto RAMIREZ MD, Bal Serrano Address: Address: [address] [place] [id number]
--- OUTSIDE RECORDS SUMMARY | 2022-10-14 11:48 | XMS_ITS | Continuity of Care Document ---
Author Name Unknown Organization [facility] Address [address] [place] [address]- Care Team Providers Care Work Order Clerk Name Role Phone Not on Staff, PCP Primary Care Physician Unavail able Encounter [facility] Date(s): 07/15/22 - 07/15/[address] [address]- Discharge Disposition: A-D/C Home Attending Physician: Edgard Santana MD Admitting Physician: Edgard Santana MD Referring Physician: Not on Staff, Referring MD Allergies, Adverse Reactions, Alerts Substance Reaction Severity Status Zoloft Active Thorazine Active traZODone Active ZyPREXA Active Immunizations Given and Recorded Vaccine Date Status Refusal Reason tetanus/diphtheria/pertussis, acel(Tdap) 04/09/22 Recorded tetanus/diphtheria/pertussis, acel(Tdap) 05/18/18 Recorded tetanus/diphtheria/pertussis, acel(Tdap) 12/19/16 Recorded [id number] 12y+ bivalent booster vax 02/11/22 Recorded SARS-CoV-2 [...] 1 Refills, Maintenance, 05/08/22 12:50:00 EST, Tablet, [facility] #[id number], Partial fill upon patient request if the prescription is for a schedule II opioid drug., yolanda oG, 05/08/22 7:19:00 EST,... Start Date: 05/08/22 Stop Date: 06/05/22 Status: Ordered benztropine 1 mg oral tablet 1 mg, 1, tablet, By Mouth, Daily, # 14 tablet, Refills 1, Tot. Refills 1, Maintenance, 05/08/22 12:50:00 EST, Route to Pharmacy Electronically, [facility] #[id number], Partial fill upon patient request if the prescription is for a schedule II opi... Start Date: 05/08/22 Stop Date: 06/05/22 Status: Ordered busPIRone 30 mg oral tablet 1 tablet = 30 mg, By Mouth, 2 times a day, # 28 tablet, 0 Refills, Maintenance, 05/08/22 12:59:00 EST, Tablet, [facility] #[id number], Partial fill upon patient request if the prescription is for a schedule II opioid drug., yolanda Go, 05/08/22 7:19... Start Date: 05/08/22 Stop Date: 05/22/22 Status: Ordered chlorproMAZINE 100 mg oral tablet = 100 mg, By Mouth, Daily at bedtime, # 14 tablet, 0 Refills, Maintenance, 05/08/22 12:52:00 EST, Tablet, [facility] #[id number], Partial fill upon patient request if the prescription is for a schedule II opioid drug., yolanda Go, 05/08/22 7:19:00 E... Start Date: 05/08/22 Stop Date: 05/22/22 Status: Ordered chlorproMAZINE 50 mg oral tablet = 50 mg, By Mouth, Daily before lunch, # 14 tablet, 0 Refills, Maintenance, 05/08/22 12:51:00 EST, Tablet, [facility] #[id number], Partial fill upon patient request if the prescription is for a schedule II opioid drug., yolanda Go, 05/08/22 7:19:00... Start Date: 05/08/22 Stop Date: 05/22/22 Status: Ordered chlorproMAZINE 50 mg oral tablet 1 tablet = 50 mg, By Mouth, Daily in AM, # 180 tablet, 0 Refills, Maintenance, 05/08/22 12:53:00 EST, Tablet, [facility] #[id number], Partial fill upon patient request if the prescription is fora schedule II opioid drug., 176, yolanda, 05/08/22 7:19:... Start Date: 05/08/22 Status: Ordered cloNIDine 0.2 mg oral tablet 0.2 mg, 1, tablet, By Mouth, 2 times a day, # 20 tablet, Refills 2, Tot. Refills 2, Maintenance, 01/01/22 15:56:00 EDT, Route to Pharmacy Electronically, [facility] #[id number], Partial fill upon patient request if the prescription is for a sched... Start Date: 01/01/22 Stop Date: 01/31/22 Status: Ordered diazepam 5 mg oral tablet 5 mg, 1, tablet, By Mouth, 2 times a day, # 10 tablet, Refills 0, Tot. Refills 0, Acute 07/16/22 8:53:00 EDT, 07/11/22 8:53:00 EDT, Route to Pharmacy Electronically, [facility] #[id number], Partial fill upon patient request if the prescription is... Start Date: 07/11/22 Stop Date: 07/16/22 Status: Ordered divalproex sodium 500 mg oral enteric coated tablet 1 tablet = 500 mg, By Mouth, Daily in AM, # 14 tablet, 0 Refills, Maintenance, 05/08/22 12:49:00 EST, Tablet, [facility] #[id number], Partial fill upon patient request if the prescription is fora schedule II opioid drug., 176, yolanda, 05/08/22 7:19:... Start Date: 05/08/22 Stop Date: 05/22/22 Status: Ordered divalproex sodium 500 mg oral enteric coated tablet 2 tablets, By Mouth, Daily at bedtime, # 28 tablet, 0 Refills, Maintenance, 05/08/22 12:49:00 EST, Tablet, [facility] #[id number], Partial fill upon patient request if the prescription is for a schedule II opioid drug., 176, yolanda, 05/08/22 7:19:00... Start Date: 05/08/22 Stop Date: 05/22/22 Status: Ordered docusate sodium 100 mg oral capsule 100 mg, 1, capsule, By Mouth, 2 times a day, # 60 capsule, Refills 0, Tot. Refills 0, Maintenance, 06/20/21 23:57:00 EDT, Route to Pharmacy Electronically, [facility] #[id number], Partial fill upon patient request if the [...] AM, 0 Refills, Maintenance, 03/10/22 8:17:00 EST, [place], Partial fill upon patient request if the prescription is for a schedule II opioid drug. Start Date: 03/10/22 Status: Ordered furosemide 80 mg oral tablet 80 mg, 1, tablet, By Mouth, Daily, # 30 tablet, Refills 0, Maintenance, 04/19/22 23:10:00 EST, Partial fill upon patient request if the prescription is for a schedule II opioid drug. Start Date: 04/19/22 Status: Ordered indomethacin 50 mg oral capsule 1 capsule = 50 mg, By Mouth, 3 times a day, PRN for arthritis, # 21 capsule, 0 Refills, Maintenance, 07/15/22 14:29:00 EDT, Capsule, [facility] #[id number], Partial fill upon patient request if the prescription is for a schedule II opioid drug.,... Start Date: 07/15/22 Stop Date: 07/22/22 Status: Ordered levothyroxine 0.05 mg oral tablet 1 tablet = 50 mcg, By Mouth, Daily, # 14 tablet, 1 Refills, Maintenance, 01/02/22 9:22:00 EDT, Tablet, [facility] #[id number], Partial fill upon patient request if the [...] opioid drug. Start Date: 03/11/22 Status: Ordered Tizanidine By Mouth, Refills 0, Maintenance, 07/15/22 4:25:00 EDT, Partial fill upon patient request if the prescription is for a schedule II opioid drug. Start Date: 07/15/22 Status: Ordered Ventolin HFA 108 mcg/inh inhalation [...] recent to oldest [Reference Range]: 1 Height 185 cm (07/15/22 1:02 PM) Weight 120 kg (07/15/22 1:02 PM) Oxygen Saturation [94-100 %] 100 % (07/15/22 1:02 PM) Pulse Rate [55-90 bpm] 90 bpm (07/15/22 1:02 PM) Blood Pressure [90-138/55-84 mm Hg] 154/ 86mm Hg *H* (07/15/22 1:02 PM) Respiratory Rate [16-30 br/min] 20 br/mi n (07/15/22 1:02 PM) Temperature [96.8-100.4 DegF] 98.2 DegF (07/15/22 1:02 PM) Mode of Delivery (Oxygen) Room air (07/15/22 1:02 PM) Blood pressure sites Arm, left (07/15/22 1:02 PM) Temperature Route Temporal (07/15/22 1:02 PM) Dry Weight 120 kg (07/15/22 1:02 PM) Weight Obtained Via Standing scale (07/15/22 1:02 PM) Dry Weight Obtained Via Standing scale (07/15/22 1:02 PM) Social History Social History Type Response Smoking Status 10 or more cigarette s (1/2 pack or more)/day in last 30 days entered on: 06/10/21 Sex Implantable Device List Procedure Provider Procedure Date Device Type Site Repair Hernia Ventral Laparoscopic Sangeetha , Gus 09/13/20 Unknown Abdomen Device Identifier Serial Number Lot or Batch Number Manufacturing Date Expiration Date Distinct Identification Code MRI Safety Implantable Status 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 [id number] Unknown [id number] 2 Unknown 03/11/21 Unknown Unknown Active GS1 Note * Edgard Santana MD: PERFORM Event Display: Patient Education Leaflets Authored Date: [id number] Osteoarthritis ?? [id number] Osteoarthritis Osteoarthritis happens??when the cartilage in a joint becomes damaged and worn. This may be from age, wear and tear, overuse of the joint, obesity, or other problems. Osteoarthritis??can affect any joint, but it's most common in??hands, knees, spine, hips, and feet. Symptoms include joint stiffness, and pain. It's also called degenerative joint disease. Home care ??? When a joint is more sore than usual, rest it for 1 or 2 days. ??? Heat can help relieve stiffness. Take a hot bath or apply a heating pad for up to 30 minutes at a time. If symptoms are worse in the morning, using heat just after awakening can help relax the muscle and soothe the joints.? Ice helps relieve pain. It's often used after activity. Use a cold pack wrapped in a thin cloth on the joint for 10 to 15 minutes at a time.? Alternating hot and cold can also help relieve pain. Try this for 20 minutes at a time, several times per day. ??? Exercise helps prevent the muscles and ligaments around the joint from becoming weak.??It also helps maintain function in the joint.??Be as active as you can. Talk to your healthcare provider about what activity program is bestfor you. ??? Excess weight puts a lot of extra strain on weight-bearing joints of the lower back, hips, knees, feet, and ankles. If you are overweight, talk to your provider about a safe and effective weight loss program. ??? Use anti-inflammatory medicines as prescribed for pain. This includes acetaminophen or NSAIDs (nonsteroidal anti-inflammatory drugs) such as ibuprofen or naproxen. Don't take NSAIDs if your provider has told you that you can't take NSAIDS because of other health problems. If needed, topical or injected medicines may be advised. Talk with your provider if these choices aren't enough to manage your pain. Follow the directions on all [id number] medicines. If you're t aking NSAIDs routinely, talk to your provider. ??? Talk with your provider about devices that mighthelp improve your function and reduce pain. ??? Talk with your provider about physical therapy to help strengthen your joints and the nearby muscles. ?? Follow-up care Follow up with your healthcare provider, or as advised. ?? When to get medical advice Call your healthcare provider right away if any of the following occur: ??? Redness or swelling of a painful joint ??? Discharge or pus from a painful joint ??? Fever of??100.4??F (38??C)??or higher,or as directed by your healthcare provider ??? Joint pain that gets worse ??? Decreased ability to move the joint or bear weight on the joint ?? Last Reviewed Date: 2021 ?? 6570-7926 [employer]. All rights reserved. This information is not intended as a substitute for professional medical care. Always follow your healthcare professional's instructions. ?? Patient Care team information Care Team Personnel Name: Konrad Gallegos RN Position: [facility] ED RN W/OE and Tasks Member Role: Primary Care Nurse Name: Niki Bright RN Position: [facility] RN Member Role: Primary Care Nurse Name: Fang Che Position: [facility] RN Member Role: Primary Care Nurse Name: Trisha Alamo RN Position: [facility] RN Supv Member Role: Primary Care Nurse Name: Rita Son NP Position: [facility] Associate Professional Member Role: Primary Care Nurse Address: Address: [address] [place] [address] Name: Sol Chanel RN Position: [facility] RN Member Role: Primary Care Nurse Name: Trisha Beltrán RN Position: [facility] RN Supv Member Role: Primary Care Nurse Name: Helene Pérez RN Position: [facility] RN Member Role: Primary Care Nurse Name: Brenda Cuba RN Position: [facility] HBO Wound Member Role: Primary Care Nurse Name: Kell Alonso RN Position: [facility] RN Member Role: Primary Care Nurse Name: Faraz Barriga RN Position: [facility] RN Member Role: Primary Care Nurse Name: Richa Clay LPN Position: [facility] RN Member Role: Primary Care Nurse Name: Екатерина Chacko RN Position: [facility] RN Member Role: Primary Care Nurse Name: Anna Lackey RN Position: [facility] RN Member Role: Primary Care Nurse Name: Elizabeth Ha RN Position: [facility] RN Member Role: Primary Care Nurse Name: Not on Staff, PCP Position: [facility] Physician (General Medicine) Member Role: PCP Name: Anna Oconnor RN Position: [facility] [place] Member Role: Primary Care Nurse Name: Kip Gonzalez RN Position: [facility] RN Member Role: Primary Care Nurse Address: Address: [address] [place] [address]- Name: Anisha Hinds RN Position: [facility] RN Member Role: Primary Care Nurse Name: Sunitha Gutierrez RN Position: [facility] RN Member Role: Primary Care Nurse Name: April Acuña RN Position: [facility] RN Member Role: Primary Care Nurse Name: Li Esquivel RN Position: [facility] [place] Member Role: Primary Care Nurse Name: Tunde White MD Position: [facility] Psychiatry MD Member Role: [employer] Phys[employer] Address: Address: [address] [place] [address]- [place] Name: Papito Rodriguez RN Position: [facility] ED RN W/OE and Tasks Member Role: Patient Care Provider Name: Edgard Santana MD Position: [facility] ED Medicine MD Member Role: Admitting Physician Address: Address: [address] [place] [address] [place] [address]- Care Team Related Persons Name: FORREST TO Address: [address] [place] [address] Name: MÓNICA CREWS
--- OUTSIDE RECORDS SUMMARY | 2022-10-14 11:48 | XMS_ITS | Continuity of Care Document ---
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 Role Phone Elijah Gibbons MD Primary Care Physician [phone] Encounter [facility] Date(s): 10/27/19 - 10/28/[address] [address]- [facility] Discharge Disposition: Transferred to short-term general hospit Attending Physician: Epi Vu MD Admitting Physician: Epi Vu MD Referring Physician: Not on Staff, Referring MD Allergies, Adverse Reactions, Alerts Substance Reaction Severity Status Zoloft Active Thorazine Active traZODone Active ZyPREXA Active Medications albuterol CFC free 90 mcg/inh inhalation aerosol 2, puffs, Inhalation, Every 4 hours, PRN, # 18 Gm, Refills 3, Tot. Refills 3, Maintenance, 02/13/1911:48:23 EST, Aerosol, Route to Pharmacy Electronically, [id number], [facility]/pharmacy #[id number] Start Date: 02/13/19 Status: Ordered Ativan 1 mg oral tablet 1 tablet = 1 mg, By Mouth, 2 times a day, 0 Refills, Maintenance, 10/16/19 23:35:00 EDT, Tablet Start Date: 10/16/19 Status: Ordered baclofen 20 mg oral tablet 20 mg, 1, tablet, By Mouth, 3 times a day, # 90 tablet, Refills 0, Maintenance, 10/16/19 23:35:00 EDT Start Date: 10/16/19 Status: Ordered benztropine 2 mg oral tablet 1 tablet = 2 mg, By Mouth, Daily at bedtime, # 30 tablet, 0 Refills, Maintenance, 10/25/19 7:37:00 EDT, Tablet Start Date: 10/25/19 Status: Ordered busPIRone 15 mg oral tablet 1 tablet = 15 mg, By Mouth, 3 times a day, # 90 tablet, 0 Refills, Maintenance, 02/28/19 12:08:43 EST, Tablet, [facility]/pharmacy #1111, 183, cm, 02/28/19 11:39:08 EST, Height, 124, kg, 02/22/19 8:26:27 EST, Dry Weight Start Date: 02/28/19 Status: Ordered cloNIDine 0.3 mg oral tablet 1 tablet = 0.3 mg, By Mouth, Daily, 0 Refills, Maintenance, 10/11/19 16:51:00 EDT Start Date: 10/11/19 Status: Ordered diazepam 5 mg oral tablet 5 mg, 1, tablet, By Mouth, 3 times a day, Refills 0, Maintenance, 10/25/19 7:36:00 EDT Start Date: 10/25/19 Status: Ordered divalproex sodium 500 mg oral enteric coated tablet 1 tablet = 500 mg, By Mouth, 2 times a day, # 60 tablet, 1 Refills, Maintenance, 02/28/19 12:11:45 EST, EC Tablet, [facility]/pharmacy #1111, 183, cm, 02/28/19 11:39:08 EST, Height, 124, kg, 02/22/19 8:26:27 EST, Dry Weight Start Date: 02/28/19 Status: Ordered Fioricet Tablet 2 tablet, By Mouth, 2 times a day, PRN Headache, 0 Refills, Maintenance, 10/16/19 23:36:00 EDT, Tablet Start Date: 10/16/19 Status: Ordered Flomax 0.4 mg oral capsule 0.4 mg, 1, capsule, By Mouth, Daily, # 30 capsule, Refills 0, Tot. Refills 0, Maintenance, 198:58:23 EST, Route to Pharmacy Electronically, [id number], [facility]/pharmacy #1111, 183, cm, 02/17/19 8:22:07 EST, Height, 127, kg... Start Date: 02/17/19 Status: Ordered fluticasone 50 mcg/inh nasal spray 2 sprays, Nares, Both, 2 times a day, # 9.9 mL, 0 Refills, Maintenance, 11/15/18 14:21:09 EDT, [place], 2 sprays Nares, Both 2 times a day Start Date: 11/15/18 Status: Ordered furosemide 20 mg oral tablet 20 mg, 1, tablet, By Mouth, 2 times a day, # 60 tablet, Refills 0, Tot. Refills 0, Maintenance, 10/12/19 19:13:00 EDT, Route to Pharmacy Electronically, [facility]/pharmacy #1111, 180, cm, 10/12/19 19:05:00EDT, Height, 135, kg, 10/12/19 19:05:00 EDT, Dry We... Start Date: 10/12/19 Status: Ordered gabapentin 800 mg oral tablet 1 tablet = 800 mg, By Mouth, 3 times a day, # 90 tablet, 1 Refills, Maintenance, 10/05/19 17:25:00 EDT, Tablet, [facility]/pharmacy #1111, 183, cm, 10/05/19 16:47:00 EDT, Height, 137.1, kg, 10/05/19 16:47:00 EDT, Dry Weight Start Date: 10/05/19 Status: Ordered levothyroxine 0.05 mg oral tablet 1 tablet = 50 mcg, By Mouth, Daily, # 30 tablet, 0 Refills, Maintenance, 12/09/18 17:02:46 EDT, Tablet Start Date: 12/09/18 Status: Ordered melatonin 5 mg oral capsule 2 capsule = 10 mg, By Mouth, Daily at bedtime, 0 Refills, Maintenance, 10/11/19 16:45:00 EDT Start Date: 10/11/19 Status: Ordered montelukast 10 mg oral tablet 10 mg, 1, tablet, By Mouth, Daily, Refills 0, Maintenance, 10/25/19 7:36:00 EDT Start Date: 10/25/19 Status: Ordered PARoxetine 40 mg oral tablet 40 mg, 1, tablet, By Mouth, Daily, # 30 tablet, Refills 0, Maintenance, 10/25/19 7:36:00 EDT Start Date: 10/25/19 Status: Ordered prazosin 2 mg oral capsule 1 capsule = 2 mg, By Mouth, 2 times a day, # 270 capsule, 0 Refills, Maintenance, 10/25/19 7:36:00 EDT, Capsule Start Date: 10/25/19 Status: Ordered Propranolol 80 mg, Daily, Refills 0, Maintenance, 10/11/19 16:51:00 EDT Start Date: 10/11/19 Status: Ordered Protonix 40 mg oral delayed release tablet = 40 mg, By Mouth, 2 times a day, # 60 tablet, 2 Refills, Maintenance, 11/15/18 14:21:31 EDT, EC Tablet Start Date: 11/15/18 Status: Ordered risperiDONE 3 mg oral tablet 3 mg, 1, tablet, By Mouth, 2 times a day, # 60 tablet, Refills 0, Maintenance, 10/25/19 7:36:00 EDT Start Date: 10/25/19 Status: Ordered traMADol 100 mg oral tablet 1 tablet = 100 mg, By Mouth, Every 6 hours, PRN as needed for pain, not to exceed 400 mg/day, 0 Refills, Maintenance, 10/16/19 23:36:00 EDT, Tablet Start Date: 10/16/19 Status: Ordered Problem List Condition Effective Dates Status Health Status Inform ant Allergic rhinitis(Confirmed) Active Asthma(Confirmed) Active Bipolar disorder with depression(Confirmed) Active GERD (gastroesophageal reflu x disease)(Confirmed) Active Generalized anxiety disorder(Confirmed) Active Hypothyroidism(Confirmed) Active Results Radiology Reports * Exam Date Time Procedure Performing Provider Status 10/27/19 8:03 PM Chest Portable Carin Nicolas; Cass (Verified) Notes: (Chest Portable) Reason For Exam: Toxic Ingestion;Other: RESULT: Chest Portable Chest Portable supine at 1950 Hx of Present Illness: Pt came in via EMS minimally responsive and grunting. Pt on 2LNC. Potential overdose on valium. Pt arousable with slurred speech.; Reason: Other:; Toxic Ingestion; Clinical Question(s): Pneumonia COMPARISON: 10/25/2019 FINDINGS: Suboptimal penetration. LINES AND TUBES: None. LUNGS AND PLEURA: Patchy opacities demonstrated in the bilateral infrahilar regions, left more so than right. Similarcompared with prior exam. No pleural effusion. No pneumothorax. HEART, MEDIASTINUM AND WAYNE: Heart is normal in size. Normal mediastinal and hilar contour. BONES AND SOFT TISSUES: No acute abnormality. IMPRESSION: 1. Suboptimal penetration limits evaluation. 2. Essentially unchanged bilateral infrahilar patchy opacities which could represent aspiration pneumonitis. WSN: [id number] Ordering Physician: Epi Vu Dictated By: Og Azevedo DO Dictated Date/Time: 10/27/19 8:06 pm Reviewed By: Og Azevedo DO Signed By: Og Azevedo DO Signed Date/Time: 10/27/19 8:06 pm Transcribed By: RAVINDER Transcribed Date/Time: 10/27/19 8:05 pm Vital Signs Most recent to oldest [Reference Range]: 1 2 3 Height 188 cm (10/28/19 1:11 AM) 188 cm (10/28/19 12:13 AM) 188 cm (10/27/19 10:17 PM) Weight 145 kg (10/28/19 1:11 AM) 145 kg (10/28/19 12:13 AM) 145 kg (10/27/19 10:17 PM) Oxygen Saturation [94-100 %] 98 % (10/28/19 1:11 AM) 98 % (10/28/19 12:13 AM) 97 % (10/27/19 11:16 PM) Pulse Rate [55-90 bpm] 73 bpm (10/28/19 1:11 AM) 72 bpm (10/28/19 12:13 AM) 73 bpm (10/27/19 11:16 PM) Body Mass Index [18.5-24.99] 41.03 *>HHI* (10/28/19 1:11 AM) 41.03 *>HHI* (10/28/19 12:13 AM) 41.03 *>HHI* (10/27/19 10:17 PM) Blood Pressure [90-138/55-84 mm Hg] 108/70mm Hg (10/28/19 1:11 AM) 113/72mm Hg (10/28/19 12:13 AM) 121/71mm Hg (10/27/19 11:16 PM) Respiratory Rate [16-30 br/min] 14 br/min *L* (10/28/19 1:11 AM) 15 br/min *L* (10/28/19 12:13 AM) 17 br/min (10/27/19 11:16 PM) Temperature [96.8-100.4 DegF] 96.9 DegF (10/27/19 7:23 PM) Liters per Minute 2 L/min (10/28/19 1:11 AM) 2 L/min (10/28/19 12:13 AM) 2 L/min (10/27/19 11:16 PM) Mode of Delivery (Oxygen) Nasal cannula (10/28/19 1:11 AM) Nasal cannula (10/28/19 12:13 AM) Nasal cannula (10/27/19 11:16 PM) Blood pressure sites Arm, left (10/28/19 1:11 AM) Arm, left (10/28/19 12:13 AM) Arm, left (10/27/19 11:16 PM) Temperature Route Temporal (10/27/19 7:23 PM) Dry Weight 145 kg (10/28/19 1:11 AM) 145 kg (10/28/19 12:13 AM) 145 kg (10/27/19 10:17 PM) Social History Social History Type Response Smoking Status 10 or more cigarette s (1/2 pack or more)/day in last 30 days; Tobacco user in household: No entered on: 11/15/18 Sex
--- OUTSIDE RECORDS SUMMARY | 2022-10-14 11:48 | XMS_ITS | Continuity of Care Document ---
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 Refills 3, Maintenance, 02/13/1911:48:23 EST, Aerosol, Route to Pharmacy Electronically, [id number], [facility]/pharmacy #1111 Start Date: 02/13/19 [...] 0 Refills, Maintenance, 02/28/19 12:08:43 EST, Tablet, [facility]/pharmacy #1111, 183, cm, 02/28/19 [...] Refills, Maintenance, 02/28/19 12:11:45 EST, EC Tablet, [facility]/pharmacy #1111, 183, cm, 02/28/19 [...] Maintenance, 198:58:23 EST, Route to Pharmacy Electronically, [id number], [facility]/pharmacy #1111, 183, cm, 02/17/19 8:22:07 EST, Height, 127, kg... Start Date: 02/17/19 Status: Ordered fluticasone 50 mcg/inh nasal spray 2 sprays, Nares, Both, 2 times a day, # 9.9 mL, 0 Refills, Maintenance, 11/15/18 14:21:09 EDT, [place], 2 sprays Nares, Both 2 times a day Start Date: 11/15/18 Status: Ordered furosemide 20 mg oral tablet 20 mg, 1, tablet, By Mouth, 2 times a day, # 60 tablet, Refills 0, Tot. Refills 0, Maintenance, 10/12/19 19:13:00 EDT, Route to Pharmacy Electronically, [facility]/pharmacy #1111, 180, cm, 10/12/19 19:05:00EDT, Height, 135, kg, 10/12/19 19:05:00 EDT, Dry We... Start Date: 10/12/19 Status: Ordered gabapentin 800 mg oral tablet 1 tablet = 800 mg, By Mouth, 3 times a day, # 90 tablet, 1 Refills, Maintenance, 10/05/19 17:25:00 EDT, Tablet, [facility]/pharmacy #1111, 183, cm, 10/05/19 [...] Exam Date Time Procedure Performing Provider Status 10/25/19 10:00 AM Chest Portable Luis Calzada (Verified) Notes: (Chest Portable) Reason For Exam: Fever/Increased White Count RESULT: Chest Portable Chest Portable AP upright 9:02 AM INDICATION: Fever and leukocytosis COMPARISON: 10/25/2019 1:22 AM. FINDINGS: LINES AND TUBES: Endotracheal tube tip projects 4.5 cm above the monique. Enteric tube projects over the stomach. Esophageal temperature probe overlies the mid esophagus. LUNGS AND PLEURA: Low lung volumes with mild bibasilar atelectasis. Persistent left basilar retrocardiac opacity. Improving left basilar opacity. No definite pleural effusion. No pneumothorax. HEART, MEDIASTINUM AND WAYNE: Heart is unchanged in size. Normal mediastinal and hilar contour. BONES AND SOFT TISSUES: No acute abnormality. IMPRESSION: 1. No significant interval change. 2. Support devices are unchanged. I have personally reviewed the images and I agree with this report. WSN: [id number] Ordering Physician: Chiquis Anthony Dictated By: Radha Diggs MD Dictated Date/Time: 10/25/19 12:13 p Reviewed By: Darren Diaz MD Signed By: Darren Diaz MD Signed Date/Time: 10/25/19 12:18 pm Transcribed By: RAVINDER Transcribed Date/Time: 10/25/19 11:11 am * Exam Date Time Procedure Performing Provider Status 10/25/19 1:57 AM Chest Portable Aleta Ratliff; Auth (Verified) Notes: (Chest Portable) Reason For Exam: Tube Placement RESULT: Chest Portable Chest Portable Reason: Tube Placement; Clinical Question(s): Tube Placement COMPARISON: Multiple prior examinations, the most recent 10/24/2019. FINDINGS: LINES AND TUBES: Endotracheal tube approximately 4.5 cm above the monique. Enteric tube projects below the bottom of the image but the distal extent is seen along the greatercurvature of the stomach. Additional monitoring leads project over the chest. LUNGS AND PLEURA: Continued low lung volumes with basilar atelectasis. Increasing opacification in the retrocardiac base, likely worsening atelectasis. The upper lungs remain clear. No definitive pleural effusion. No pneumothorax. HEART, MEDIASTINUM AND WAYNE: Heart size is unchanged. Normal mediastinal and hilar contour. BONES AND SOFT TISSUES: No acute abnormality. IMPRESSION: Enteric tube in satisfactory position Worsening basilar atelectasis, left greater than right. WSN: [id number] Ordering Physician: Chiquis Anthony Dictated By: Vik Mcqueen MD Dictated Date/Time: 10/25/19 8:53 am Reviewed By: Vik Mcqueen MD Signed By: Vik Mcqueen MD Signed Date/Time: 10/25/19 8:53 am Transcribed By: RAVINDER Transcribed Date/Time: 10/25/19 8:50 am Vital Signs Most recent to oldest [Reference Range]: 1 2 3 Height 185 cm (10/25/19 1:21 AM) Weight 133.3 kg (10/25/19 3:53 AM) 133.3 kg (10/25/19 1:21 AM) Oxygen Saturation [94-100 %] 95 % (10/26/19 11:00 AM) 97 % (10/26/19 10:00 AM) 100 % (10/26/19 9:00 AM) Pulse Rate [55-90 bpm] 65 bpm (10/25/19 1:21 AM) Body Mass Index [18.5-24.99] 38.95 *>HHI* (10/25/19 1:21 AM) Blood Pressure [90-138/55-84 mm Hg] 140/94mm Hg *H* (10/26/19 11:00 AM) 134/84mm Hg (10/26/19 10:00 AM) 122/76mm Hg (10/26/19 9:00 AM) Respiratory Rate [16-30 br/min] 12 br/min *L* (10/26/19 11:00 AM) 15 br/min *L* (10/26/19 10:07 AM) 13 br/min *L* (10/26/19 10:05 AM) Temperature [96.8-100.4 DegF] 97.5 DegF (10/26/19 4:00 AM) 98.4 DegF (10/26/19 12:00 AM) 98.5 DegF (10/25/19 8:00 PM) Liters per Minute 2 L/min (10/25/19 2:00 PM) 2 L/min (10/25/19 1:00 PM) Mode of Delivery (Oxygen) Room air (10/26/19 11:00 AM) Room air (10/26/19 10:00 AM) Room air (10/26/19 9:00 AM) Blood pressure sites Arm, right (10/26/19 11:00 AM) Arm, right (10/26/19 10:00 AM) Arm, right (10/26/19 9:00 AM) Temperature Route Oral (10/26/19 4:00 AM) Oral (10/26/19 12:00 AM) Oral (10/25/19 8:00 PM) Dry Weight 133.3 kg (10/25/19 1:21 AM) Weight Obtained Via Bed scale (10/25/19 3:53 AM) Bed scale (10/25/19 1:21 AM) Mobility assistance Partial assistance (10/26/19 10:06 AM) Partial assistance (10/26/19 8:00 AM) Independent (10/25/19 8:00 PM) Social History Social History Type Response Smoking Status 10 or more cigarette s (1/2 pack or more)/day in last 30 days; Tobacco user in household: No entered on: 11/15/18 Sex
--- OUTSIDE RECORDS SUMMARY | 2022-10-14 11:48 | XMS_ITS | Continuity of Care Document ---
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 Name Role Phone Elijah Gibbons MD Primary Care Physician Encounter [facility] Date(s): 10/05/19 - 10/05/[address] [address]- [facility] Discharge Disposition: A-D/C Home Attending Physician: Gokul Wallace MD Admitting Physician: Gokul Wallace MD Referring Physician: Not on Staff, Referring MD Allergies, Adverse Reactions, Alerts Substance Reaction Severity Status Zoloft Active Thorazine Active traZODone Active ZyPREXA Active PROzac Active SEROquel Active Medications albuterol CFC free 90 mcg/inh inhalation aerosol 2, puffs, Inhalation, Every 4 hours, PRN, # 18 Gm, Refills 3, Tot. Refills 3, Maintenance, 02/13/1911:48:23 EST, Aerosol, Route to Pharmacy Electronically, [id number], [facility]/pharmacy #1111 Start Date: 02/13/19 Status: Ordered [...] Refills, Maintenance, 02/28/19 12:11:45 EST, EC Tablet, [facility]/pharmacy #1111, 183, cm, 02/28/19 11:39:08 EST, [...] capsule, Refills 0, Tot. Refills 0, Maintenance, :58:23 EST, Route to Pharmacy Electronically, [id number], [facility]/pharmacy #1111, 183, cm, 02/17/19 8:22:07 EST, Height, 127, kg... Start Date: 02/17/19 Status: Ordered fluticasone 50 mcg/inh nasal spray 2 sprays, Nares, Both, 2 times a day, # 9.9 mL, 0 Refills, Maintenance, 11/15/18 14:21:09 EDT, [place], 2 sprays Nares, Both 2 times a day Start Date: 11/15/18 Status: Ordered gabapentin 100 mg oral capsule 100 mg, 1, capsule, By Mouth, Daily at bedtime, # 30 capsule, Refills 0, Tot. Refills 0, Maintenance, 02/28/19 12:13:04 EST, Route to Pharmacy Electronically, [facility]/pharmacy #1111, 183, cm, 02/28/19 11:39:08 EST, Height, 124, kg, 02/22/19 8:26:27 EST, D... Start Date: 02/28/19 Status: Ordered gabapentin 800 mg oral tablet 1 tablet = 800 mg, By Mouth, 3 times a day, # 90 tablet, 1 Refills, Maintenance, 10/05/19 17:25:00 EDT, Tablet, [facility]/pharmacy #1111, 183, cm, 10/05/19 16:47:00 EDT, Height, 137.1, kg, 10/05/19 16:47:00 EDT, Dry Weight Start Date: 10/05/19 Status: Ordered ibuprofen 600 mg oral tablet 600 mg, 1, tablet, By Mouth, Every 8 hours, # 60 tablet, Refills 1, Tot. Refills 1, Acute 10/06/19 17:27:00 EDT, 10/05/19 17:26:00 EDT, Route to Pharmacy Electronically, [facility]/pharmacy #1111, 183, cm, 10/05/19 16:47:00 EDT, Height, 137.1, kg, 10/05/19 1... Start Date: 10/05/19 Stop Date: 10/06/19 Status: Ordered Lasix 20 mg oral tablet 20 mg, 1, tablet, By Mouth, 2 times a day, # 60 tablet, Refills 1, Tot. Refills 1, Maintenance, 10/05/19 17:26:00 EDT, Route to Pharmacy Electronically, [facility]/pharmacy #1111, 183, cm, 10/05/19 16:47:00EDT, Height, [...] [Reference Range]: 1 2 Height 183 cm (10/05/19 4:47 PM) Weight 137.1 kg (10/05/19 4:47 PM) Oxygen Saturation [94-100 %] 97 % (10/05/19 5:33 PM) 97 % (10/05/19 4:47 PM) Pulse Rate [55-90 bpm] 82 bpm (10/05/19 5:33 PM) 79 bpm (10/05/19 4:47 PM) Blood Pressure [90-138/55-84 mm Hg] 153/ 87mm Hg *H* (10/05/19 5:33 PM) 148/104mm Hg *H* (10/05/19 4:47 PM) Respiratory Rate [16-30 br/min] 19 br/mi n (10/05/19 4:47 PM) Temperature [96.8-100.4 DegF] 97.8 DegF (10/05/19 4:47 PM) Mode of Delivery (Oxygen) Room air (10/05/19 5:33 PM) Room air (10/05/19 4:47 PM) Blood pressure sites Arm, right (10/05/19 5:33 PM) Arm, left (10/05/19 4:47 PM) Temperature Route Temporal (10/05/19 4:47 PM) Dry Weight 137.1 kg (10/05/19 4:47 PM) Weight Obtained Via Standing scale (10/05/19 4:47 PM) Dry Weight Obtained Via Standing scale (10/05/19 4:47 PM) Social History Social History Type Response Smoking Status 5-9 cigarettes (betw een 1/4 to 1/2 pack)/day in last 30 days; Tobacco user in household: No entered on: 02/28/19 Sex
--- OUTSIDE RECORDS SUMMARY | 2022-10-14 11:48 | XMS_ITS | Continuity of Care Document ---
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 Refills 0, Maintenance, for pain, 04/18/20 14:17:00 EST, Route to Pharmacy Electronically, [facility] #[id number] Tablet, Partial fill upon patient request if the prescription... Start Date: 04/18/20 Status: Ordered Advair Diskus 250 mcg-50 mcg inhalation powder Inhalation, 2 times a day, Refills 0, Maintenance, 05/21/20 9:46:00 EST Start Date: 05/21/20 Status: Ordered albuterol CFC free 90 mcg/inh inhalation aerosol 2, puffs, Inhalation, Every 4 hours, PRN, # 18 Gm, Refills 3, Tot. Refills 3, Maintenance, 02/13/1911:48:23 EST, Aerosol, Route to Pharmacy Electronically, [id number], [facility]/pharmacy #[id number] Start Date: 02/13/19 Status: Ordered amitriptyline 100 mg oral tablet 1 tablet = 100 mg, By Mouth, Daily at bedtime, # 7 tablet, 3 Refills, Maintenance, 04/15/20 10:15:00 EST, Tablet, [facility] #[id number], Partial fill upon patient request if the prescription isfor a schedule II opioid drug., 183, cm, 04/15/20 0... Start Date: 04/15/20 Stop Date: 05/13/20 Status: Ordered amitriptyline 25 mg oral tablet 75 mg, 3, tablet, By Mouth, Daily, # 21 tablet, Refills 3, Tot. Refills 3, Maintenance, 04/13/20 14:55:00 EST, Route to Pharmacy Electronically, [facility] #[id number], Partial fill upon patientrequest if the prescription is for a schedule II op... Start Date: 04/13/20 Stop Date: 05/11/20 Status: Ordered baclofen 10 mg oral tablet 20 mg, 2, tablet, By Mouth, 2 times a day, # 56 tablet, Refills 1, Tot. Refills 1, Maintenance, 04/13/20 14:54:00 EST, Route to Pharmacy Electronically, [facility] #[id number], Partial fill uponpatient request if the prescription is for a schedu... Start Date: 04/13/20 Stop Date: 05/11/20 Status: Ordered busPIRone 15 mg oral tablet 1 tablet = 15 mg, By Mouth, 3 times a day, # 42 tablet, 1 Refills, Maintenance, 04/13/20 14:56:00 EST, Tablet, [facility] #[id number], Partial fill upon patient request if the prescription is for a schedule II opioid drug., 183, cm, 04/13/20 9:04... Start Date: 04/13/20 Stop Date: 05/11/20 Status: Ordered Compression Stockings See Instructions, # 2 each, Acute 06/12/20 10:33:00 EDT, surgical, calf length 40-50 mm Hg, 05/21/20 10:32:00 EST, Supply, 183, cm, 05/21/20 9:31:00 EST, Height, 136, kg, 05/21/20 9:31:00 EST, Dry Weight Start Date: 05/21/20 Stop Date: 06/12/20 Status: Ordered Diclofenac = 150 mg, By Mouth, Daily, 0 Refills, Maintenance, 05/21/20 9:47:00 EST, Partial fill upon patient request if the prescription is for a schedule II opioid drug. Start Date: 05/21/20 Status: Ordered fluticasone 50 mcg/inh nasal spray 2 sprays, Nares, Both, 2 times a day, # 9.9 mL, 0 Refills, Maintenance, 11/15/18 14:21:09 EDT, [place], 2 sprays Nares, Both 2 times a day Start Date: 11/15/18 Status: Ordered Furosemide = 40 mg, Daily, 0 Refills, Maintenance, 05/21/20 21:13:00 EST, Partial fill upon patient request ifthe prescription is for a schedule II opioid drug. Start Date: 05/21/20 Status: Ordered levothyroxine 0.05 mg oral tablet 1 tablet = 50 mcg, By Mouth, Daily, # 14 tablet, 1 Refills, Maintenance, 04/15/20 10:10:00 EST, Tablet, [facility] #[id number], Partial fill upon patient request if the prescription is for a schedule II opioid drug., 183, cm, 04/15/20 0:49:00 EST... Start Date: 04/15/20 Stop Date: 05/13/20 Status: Ordered Lunesta = 3 mg, By Mouth, Daily at bedtime, 0 Refills, Maintenance, 05/21/20 9:43:00 EST, Partial fill uponpatient request if the prescription is for a schedule II opioid drug. Start Date: 05/21/20 Status: Ordered Misoprostol = 100 mcg, By Mouth, 4 times a day, 0 Refills, Maintenance, 05/21/20 9:52:00 EST, Partial fill uponpatient request if the prescription is for a schedule II opioid drug. Start Date: 05/21/20 Status: Ordered Nicoderm C-Q Clear 21 mg/24 hr transdermal film, extended release 1 patch, Topically, Daily, for 60 days, Keep 12 hours on and 12 hours off., # 60 patch, 2 Refills, Acute 10/11/20 12:36:00 EDT, 04/14/20 12:36:00 EST, Patch, [facility] #[id number], Partial fillupon patient request if the prescription is for a s... Start Date: 04/14/20 Stop Date: 10/11/20 Status: Ordered propranolol 40 mg oral tablet 40 mg, 1, tablet, By Mouth, 2 times a day, # 28 tablet, Refills 1, Tot. Refills 1, Maintenance, 04/13/20 14:56:00 EST, Route to Pharmacy Electronically, [facility] #[id number], Partial fill uponpatient request if the prescription [...] Date: 04/13/20 Stop Date: 05/11/20 Status: Ordered Restoril 30 mg, By Mouth, Daily at bedtime, Refills 0, Maintenance, 05/21/20 9:43:00 EST, Partial fill upon patient request if the prescription is for a schedule II opioid drug. Start Date: 05/21/20 Status: Ordered RisperDAL 2 mg oral tablet 2 mg, 1, tablet, By Mouth, 2 times a day, # 28 tablet, Refills 1, Tot. Refills 1, Maintenance, 04/13/20 14:57:00 EST, Route to Pharmacy Electronically, [facility] #[id number], Partial fill upon patient request if the [...] 1 Refills, Maintenance, 04/13/20 14:55:00 EST, Tablet, [facility] #[id number], Partial fill upon patient request if the prescription is for a schedule II opioid drug., 183, cm, 04/13/20 9:0... Start Date: 04/13/20 Stop Date: 05/11/20 Status: Ordered traMADol 50 mg oral tablet 1 tablet = 50 mg, By Mouth, Every 12 hours, PRN as needed for pain, # 10 tablet, 0 Refills, Maintenance, 04/22/20 15:54:00 EST, Tablet, [facility] #[id number], Partial fill upon patient request if the prescription is for a schedule II opioid drug... Start Date: 04/22/20 Status: Ordered Tylenol Arthritis Gelcap = 1,300 mg, By Mouth, 2 times a day, 0 Refills, Maintenance, 05/21/20 9:48:00 EST, Partial fill upon patient request if the prescription is for a schedule II opioid drug. Start Date: 05/21/20 Status: Ordered ZyrTEC 10 mg oral tablet 1 tablet = 10 mg, By Mouth, Daily, 0 Refills, Maintenance, 05/21/20 9:45:00 EST, Partial fill upon patient request if the prescription is for a schedule II opioid drug. Start Date: 05/21/20 Status: Ordered Problem List Condition Effective Dates Status Health Status Inform ant Allergic rhinitis(Confirmed) Active Asthma(Confirmed) Active Bipolar disorder with depression(Confirmed) Active GERD (gastroesophageal reflu x disease)(Confirmed) Active Generalized anxiety disorder(Confirmed) Active Hypothyroidism(Confirmed) Active Vital Signs Most recent to oldest [Reference Range]: 1 Height 183 cm (05/21/20 9:31 AM) Weight 136 kg (05/21/20 9:31 AM) Oxygen Saturation [94-100 %] 100 % (05/21/20 9:31 AM) Pulse Rate [55-90 bpm] 84 bpm (05/21/20 9:31 AM) Blood Pressure [90-138/55-84 mm Hg] 129/ 97mm Hg (05/21/20 9:31 AM) Respiratory Rate [16-30 br/min] 18 br/mi n (05/21/20 9:31 AM) Temperature [96.8-100.4 DegF] 98.2 DegF (05/21/20 9:31 AM) Mode of Delivery (Oxygen) Room air (05/21/20 9:31 AM) Blood pressure sites Arm, right (05/21/20 9:31 AM) Temperature Route Temporal (05/21/20 9:31 AM) Dry Weight 136 kg (05/21/20 9:31 AM) Dry Weight Obtained Via Patient/family s tated (05/21/20 9:31 AM) Social History Social History Type Response Tobacco Use: 1PPD. Sex
--- OUTSIDE RECORDS SUMMARY | 2022-10-14 11:48 | XMS_ITS | Continuity of Care Document ---
Author Name Unknown Organization [facility] Address [address] [place] [address]- Care Team Providers Care Back Padder Name Role Phone Soto RAMIREZ MD, Bal Serrano Primary Care Physician Encounter [facility] Date(s): 01/12/21 - 01/12/[address] [address]- Discharge Disposition: A-D/C Home Attending Physician: Triston [...] 02/13/1911:48:23 EST, Aerosol, Route to Pharmacy Electronically, [id number], [facility]/pharmacy #[id number] Start Date: 02/13/19 Status: Ordered Ambien [...] 3 Refills, Maintenance, 04/15/20 10:15:00 EST, Tablet, [facility] #[id number], Partial fill upon patient request if the prescription isfor a schedule II opioid drug., 183, cm, 04/15/20 0... Start Date: 04/15/20 Stop Date: 05/13/20 Status: Ordered amitriptyline 25 mg oral tablet 75 mg, 3, tablet, By Mouth, Daily, # 21 tablet, Refills 3, Tot. Refills 3, Maintenance, 04/13/20 14:55:00 EST, Route to Pharmacy Electronically, [facility] #[id number], Partial fill upon patientrequest if the prescription is for a schedule II op... Start Date: 04/13/20 Stop Date: 05/11/20 Status: Ordered baclofen 10 mg oral tablet 20 mg, 2, tablet, By Mouth, 2 times a day, # 56 tablet, Refills 1, Tot. Refills 1, Maintenance, 04/13/20 14:54:00 EST, Route to Pharmacy Electronically, [facility] #[id number], Partial fill uponpatient request if the prescription is for a schedu... Start Date: 04/13/20 Stop Date: 05/11/20 Status: Ordered busPIRone 15 mg oral tablet 1 tablet = 15 mg, By Mouth, 3 times a day, # 42 tablet, 1 Refills, Maintenance, 04/13/20 14:56:00 EST, Tablet, [facility] #[id number], Partial fill upon patient request if the prescription is for a schedule II opioid drug., 183, cm, 04/13/20 9:04... Start Date: 04/13/20 Stop Date: 05/11/20 Status: Ordered cloNIDine 0.1 mg oral tablet 0.1 mg, 1, tablet, By Mouth, 2 times a day, # 10 tablet, Refills 0, Tot. Refills 0, Maintenance, 10/22/20 15:02:00 EDT, Route to Pharmacy Electronically, [facility] #[id number], Partial fill upon patient request if the [...] 09/13/20 14:45:00 EDT, Route to Pharmacy Electronically, [facility] #[id number], Partial fill upon patient request if the prescription is for a salima... Start Date: 09/13/20 Status: Ordered Flomax 0.4 mg oral capsule 0.4 mg, 1, capsule, By Mouth, Daily, # 30 capsule, Refills 0, Tot. Refills 0, Maintenance, 10/22/2121:52:00 EDT, Route to Pharmacy Electronically, [facility] #[id number], Partial fill upon patient request if the prescription is for a schedule II... Start Date: 10/22/20 Status: Ordered fluticasone 50 mcg/inh nasal spray 2 sprays, Nares, Both, 2 times a day, # 9.9 mL, 0 Refills, Maintenance, 11/15/18 14:21:09 EDT, [place], 2 sprays Nares, Both 2 times a [...] 0 Refills, Maintenance, 01/07/21 18:42:00 EDT, Tablet, [facility] #[id number], Partial fill upon patient request if the prescription is for a schedule II opioid drug., 183, cm, 01/07/21 17:... Start Date: 01/07/21 Status: Ordered nicotine 14 mg/24 hr transdermal film, extended release 1 patch, Topically, Daily, # 30 patch, 0 Refills, Acute 05/28/21 9:00:00 EDT, 05/28/20 15:55:00 EDT, Patch, [facility] #[id number], Partial fill upon patient request if the prescription is for aschedule II opioid drug., 1 patch Topically Daily,... Start Date: 05/28/20 Stop Date: 05/28/21 Status: Ordered propranolol 40 mg oral tablet 40 mg, 1, tablet, By Mouth, 2 times a day, # 28 tablet, Refills 1, Tot. Refills 1, Maintenance, 04/13/20 14:56:00 EST, Route to Pharmacy Electronically, [facility] #[id number], Partial fill uponpatient request if the prescription [...] 04/13/20 14:57:00 EST, Route to Pharmacy Electronically, [facility] #[id number], Partial fill upon patient request if the [...] 0 Refills, Maintenance, 07/27/20 19:15:00 EDT, Tablet, [facility] #[id number], Partial fill upon patient request if the [...] Exam Date Time Procedure Performing Provider Status 01/12/21 4:30 PM Knee 3 Views Left Frances Oakley; Cass (Verified) Notes: (Knee 3 Views Left) Reason For Exam: Trauma RESULT: Knee 3 Views Left Knee 3 Views Left Hx of Present Illness: pt from home, reports fall @ 0930 this AM, positive loc and i hit my head ,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 10 10 pain, reports took tylenol ibuprof meena w no relief. ambulatory. left knee swelling.; Reason: Trauma; Clinical Question(s): Fracture COMPARISON: 12/11 18 FINDINGS: There is no evidence of acute or healing fracture, dislocation or bone lesion. Mild tricompartmental degenerative osteoarthritis but no evidence of osteochondral defect or intra-articular loose body. No evidence of joint effusion. IMPRESSION: Mild tricompartmental degenerative osteoarthritis but no acute abnormality. WSN: [id number] Ordering Physician: Triston Saravia Dictated By: Gonzales Dudley MD Dictated Date/Time: 01/12/21 4:35 pm Reviewed By: Gonzales Dudley MD Signed By: Gonzales Dudley MD Signed Date/Time: 01/12/21 4:35 pm Transcribed By: RAVINDER Transcribed Date/Time: 01/12/21 4:34 pm Vital Signs Most recent to oldest [Reference Range]: 1 Height 183 cm (01/12/21 4:17 PM) Weight 140 kg (01/12/21 4:17 PM) Oxygen Saturation [94-100 %] 99 % (01/12/21 4:17 PM) Pulse Rate [55-90 bpm] 93 bpm *H* (01/12/21 4:17 PM) Blood Pressure [90-138/55-84 mm Hg] 128/ 80mm Hg (01/12/21 4:17 PM) Respiratory Rate [16-30 br/min] 17 br/mi n (01/12/21 4:17 PM) Temperature [96.8-100.4 DegF] 98.4 DegF (01/12/21 4:17 PM) Mode of Delivery (Oxygen) Room air (01/12/21 4:17 PM) Blood pressure sites Arm, left (01/12/21 4:17 PM) Temperature Route Oral (01/12/21 4:17 PM) Dry Weight 140 kg (01/12/21 4:17 PM) Weight Obtained Via Standing scale (01/12/21 4:17 PM) Dry Weight Obtained Via Standing scale (01/12/21 4:17 PM) Social History Social History Type Response Tobacco Use: 1PPD. Sex Medical Equipment Implanted Date:09/13/20Target Site:Abdomen Description Quantity MRI Company Model MESH VENTRALIGHT ECHO ELLIPS 4 - BARD ([id number]) 1 Bard Unknown HAYDEE:{01}[id number] Assigning Author ity:FDA
--- OUTSIDE RECORDS SUMMARY | 2022-10-14 11:48 | XMS_ITS | Continuity of Care Document ---
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 Start Date: 01/01/22 Stop Date: 01/29/22 Status: Ordered benztropine 1 mg oral tablet 1 mg, 1, tablet, By Mouth, Daily, # 14 tablet, Refills 1, Tot. Refills 1, Maintenance, 01/01/22 15:54:00 EDT, Route to Pharmacy Electronically, [facility] #[id number], Partial fill upon patient request if the prescription is for a schedule II opi... Start Date: 01/01/22 Stop Date: 01/29/22 Status: Ordered busPIRone 15 mg oral tablet 1 tablet = 15 mg, By Mouth, 3 times a day, # 30 tablet, 2 Refills, Maintenance, 01/01/22 15:55:00 EDT, Tablet, [facility] #[id number], Partial fill upon patient request if the [...] 01/01/22 15:56:00 EDT, Route to Pharmacy Electronically, [facility] #[id number], Partial fill upon patient request if the [...] 2 Refills, Maintenance, 01/01/22 15:54:00 EDT, Tablet, [facility] #[id number], Partial fill upon patient request if the prescription is for a schedule II opioid drug., 186, cm, 01/01/22 11:49:00 E... Start Date: 01/01/22 Stop Date: 01/31/22 Status: Ordered docusate sodium 100 mg oral capsule 100 mg, 1, capsule, By Mouth, 2 times a day, # 60 capsule, Refills 0, Tot. Refills 0, Maintenance, 06/20/21 23:57:00 EDT, Route to Pharmacy Electronically, [facility] #[id number], Partial fill upon patient request if the prescription is for a salima... Start Date: 06/20/21 Status: Ordered furosemide 40 mg oral tablet 80 mg, 2, tablet, By Mouth, Daily, # 14 tablet, Refills 1, Tot. Refills 1, Maintenance, 01/02/22 9:27:00 EDT, Route to Pharmacy Electronically, [facility] #[id number], Partial fill upon patient request if the prescription is for a schedule II opi... Start Date: 01/02/22 Stop Date: 01/16/22 Status: Ordered hydrOXYzine pamoate 25 mg oral capsule 2 capsule = 50 mg, By Mouth, 3 times a day, PRN Anxiety, for 7 days, # 30 capsule, 2 Refills, Acute01/22/22 15:54:00 EST, 01/01/22 15:54:00 EDT, Capsule, [facility] #[id number], Partial fill upon patient request if the prescription is for a sche... Start Date: 01/01/22 Stop Date: 01/22/22 Status: Ordered levothyroxine 0.05 mg oral tablet 1 tablet = 50 mcg, By Mouth, Daily, # 14 tablet, 1 Refills, Maintenance, 01/02/22 9:22:00 EDT, Tablet, [facility] #[id number], Partial fill upon patient request if the [...] 2 Refills, Maintenance, 01/01/22 15:54:00 EDT, Capsule, [facility] #[id number], Partial fill upon patient request if the [...] 01/02/22 9:33:00 EDT, Route to Pharmacy Electronically, [facility] #[id number], Partialfill upon patient request if the prescription [...] oldest [Reference Range]: 1 Height 183 cm (01/08/22 2:54 AM) Weight 104.1 kg (01/08/22 2:54 AM) Oxygen Saturation [94-100 %] 100 % (01/08/22 2:58 AM) Pulse Rate [55-90 bpm] 73 bpm (01/08/22 2:58 AM) Blood Pressure [90-138/55-84 mm Hg] 124/ 80mm Hg (01/08/22 2:58 AM) Respiratory Rate [16-30 br/min] 18 br/mi n (01/08/22 2:58 AM) Temperature [96.8-100.4 DegF] 98.5 DegF (01/08/22 3:16 AM) Mode of Delivery (Oxygen) Room air (01/08/22 2:58 AM) Blood pressure sites Arm, left (01/08/22 2:58 AM) Temperature Route Oral (01/08/22 3:16 AM) Dry Weight 104.1 kg (01/08/22 2:54 AM) Social History Social History Type Response [...] Code MRI Safety Implantable Status 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 [id number] Unknown [id number] Unknown 03/11/21 Unknown Unknown Active GS1 Patient Care team information Personnel Name: Soto RAMIREZ MD, Bal Serrano Address: Address: [address] [place] [id number]
--- OUTSIDE RECORDS SUMMARY | 2022-10-14 11:48 | XMS_ITS | Continuity of Care Document ---
Author Name Unknown Organization [facility] Address [address] [place] [address]- Care Team Providers Care Package Delivery Room Service Runner Name Role Phone Not on Staff, PCP Primary Care Physician Unavail able Encounter [facility] Date(s): 07/12/22 - 07/12/[address] [address]- Discharge Disposition: A-D/C Home Attending Physician: Triston Saravia MD Admitting Physician: Triston Saravia MD Referring Physician: Not on Staff, Referring MD Allergies, Adverse Reactions, Alerts Substance Reaction Severity Status Zoloft Active Thorazine Active traZODone Active ZyPREXA Active Immunizations Given and Recorded Vaccine Date Status Refusal Reason tetanus/diphtheria/pertussis, acel(Tdap) 04/09/22 Recorded tetanus/diphtheria/pertussis, acel(Tdap) 05/18/18 Recorded tetanus/diphtheria/pertussis, acel(Tdap) 12/19/16 Recorded [id number] 12y+ bivalent booster vax 02/11/22 Recorded SARS-CoV-2 [...] 1 Refills, Maintenance, 05/08/22 12:50:00 EST, Tablet, [facility] #[id number], Partial fill upon patient request if the prescription is for a schedule II opioid drug., yolanda Go, 05/08/22 7:19:00 EST,... Start Date: 05/08/22 Stop Date: 06/05/22 Status: Ordered benztropine 1 mg oral tablet 1 mg, 1, tablet, By Mouth, Daily, # 14 tablet, Refills 1, Tot. Refills 1, Maintenance, 05/08/22 12:50:00 EST, Route to Pharmacy Electronically, [facility] #[id number], Partial fill upon patient request if the prescription is for a schedule II opi... Start Date: 05/08/22 Stop Date: 06/05/22 Status: Ordered busPIRone 30 mg oral tablet 1 tablet = 30 mg, By Mouth, 2 times a day, # 28 tablet, 0 Refills, Maintenance, 05/08/22 12:59:00 EST, Tablet, [facility] #[id number], Partial fill upon patient request if the prescription is for a schedule II opioid drug., 176yolanda, 05/08/22 7:19... Start Date: 05/08/22 Stop Date: 05/22/22 Status: Ordered chlorproMAZINE 100 mg oral tablet = 100 mg, By Mouth, Daily at bedtime, # 14 tablet, 0 Refills, Maintenance, 05/08/22 12:52:00 EST, Tablet, [facility] #[id number], Partial fill upon patient request if the prescription is for a schedule II opioid drug., yolanda Go, 05/08/22 7:19:00 E... Start Date: 05/08/22 Stop Date: 05/22/22 Status: Ordered chlorproMAZINE 50 mg oral tablet = 50 mg, By Mouth, Daily before lunch, # 14 tablet, 0 Refills, Maintenance, 05/08/22 12:51:00 EST, Tablet, [facility] #[id number], Partial fill upon patient request if the prescription is for a schedule II opioid drug., Abbi, yolanda, 05/08/22 7:19:00... Start Date: 05/08/22 Stop Date: 05/22/22 Status: Ordered chlorproMAZINE 50 mg oral tablet 1 tablet = 50 mg, By Mouth, Daily in AM, # 180 tablet, 0 Refills, Maintenance, 05/08/22 12:53:00 EST, Tablet, [facility] #[id number], Partial fill upon patient request if the prescription is fora schedule II opioid drug., 176yolanda, 05/08/22 7:19:... Start Date: 05/08/22 Status: Ordered cloNIDine 0.2 mg oral tablet 0.2 mg, 1, tablet, By Mouth, 2 times a day, # 20 tablet, Refills 2, Tot. Refills 2, Maintenance, 01/01/22 15:56:00 EDT, Route to Pharmacy Electronically, [facility] #[id number], Partial fill upon patient request if the prescription is for a sched... Start Date: 01/01/22 Stop Date: 01/31/22 Status: Ordered diazepam 5 mg oral tablet 5 mg, 1, tablet, By Mouth, 2 times a day, # 10 tablet, Refills 0, Tot. Refills 0, Acute 07/16/22 8:53:00 EDT, 07/11/22 8:53:00 EDT, Route to Pharmacy Electronically, [facility] #[id number], Partial fill upon patient request if the prescription is... Start Date: 07/11/22 Stop Date: 07/16/22 Status: Ordered divalproex sodium 500 mg oral enteric coated tablet 1 tablet = 500 mg, By Mouth, Daily in AM, # 14 tablet, 0 Refills, Maintenance, 05/08/22 12:49:00 EST, Tablet, [facility] #[id number], Partial fill upon patient request if the prescription is fora schedule II opioid drug., 176, yolanda, 05/08/22 7:19:... Start Date: 05/08/22 Stop Date: 05/22/22 Status: Ordered divalproex sodium 500 mg oral enteric coated tablet 2 tablets, By Mouth, Daily at bedtime, # 28 tablet, 0 Refills, Maintenance, 05/08/22 12:49:00 EST, Tablet, [facility] #[id number], Partial fill upon patient request if the prescription is for a schedule II opioid drug., 176, yolanda, 05/08/22 7:19:00... Start Date: 05/08/22 Stop Date: 05/22/22 Status: Ordered docusate sodium 100 mg oral capsule 100 mg, 1, capsule, By Mouth, 2 times a day, # 60 capsule, Refills 0, Tot. Refills 0, Maintenance, 06/20/21 23:57:00 EDT, Route to Pharmacy Electronically, [facility] #[id number], Partial fill upon patient request if the [...] AM, 0 Refills, Maintenance, 03/10/22 8:17:00 EST, [place], Partial fill upon patient request if the [...] 1 Refills, Maintenance, 01/02/22 9:22:00 EDT, Tablet, [facility] #[id number], Partial fill upon patient request if the [...] oldest [Reference Range]: 1 Height 183 cm (07/12/22 1:00 PM) Weight 91 kg (07/12/22 1:00 PM) Oxygen Saturation [94-100 %] 99 % (07/12/22 1:08 PM) Pulse Rate [55-90 bpm] 74 bpm (07/12/22 1:08 PM) Blood Pressure [90-138/55-84 mm Hg] 97/6 1mm Hg (07/12/22 1:08 PM) Respiratory Rate [16-30 br/min] 18 br/mi n (07/12/22 1:08 PM) Temperature [96.8-100.4 DegF] 97.7 DegF (07/12/22 1:08 PM) Mode of Delivery (Oxygen) Room air (07/12/22 1:08 PM) Blood pressure sites Arm, right (07/12/22 1:08 PM) Temperature Route Temporal (07/12/22 1:08 PM) Dry Weight 91 kg (07/12/22 1:00 PM) Social History Social History Type Response [...] Code MRI Safety Implantable Status 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 [id number] Unknown [id number] Unknown 03/11/21 Unknown Unknown Active GS1 Patient Care team information Care Team Personnel Name: Konrad Gallegos RN Position: [facility] ED RN W/OE and Tasks Member Role: Primary Care Nurse Name: Niki Bright RN Position: [facility] RN Member Role: Primary Care Nurse Name: Fang Che Position: [facility] RN Member Role: Primary Care Nurse Name: Trisha Alamo RN Position: [facility] RN Supv Member Role: Primary Care Nurse Name: Rita Son NP Position: [facility] Associate Professional Member Role: Primary Care Nurse Address: Address: [address] [place] [address]- [place] Name: Sol Chanel RN Position: [facility] RN Member Role: Primary Care Nurse Name: Trisha Beltrán RN Position: [facility] RN Supv Member Role: Primary Care Nurse Name: Helene Pérez RN Position: [facility] RN Member Role: Primary Care Nurse Name: Brenda Cuba RN Position: [facility] HBO Wound Member Role: Primary Care Nurse Name: Kell Alonso RN Position: [facility] RN Member Role: Primary Care Nurse Name: Faraz Barriga RN Position: [facility] RN Member Role: Primary Care Nurse Name: Richa Clay LPN Position: [facility] RN Member Role: Primary Care Nurse Name: Екатерина Chacko RN Position: [facility] RN Member Role: Primary Care Nurse Name: Anna Lackey RN Position: [facility] RN Member Role: Primary Care Nurse Name: Elizabeth Ha RN Position: [facility] RN Member Role: Primary Care Nurse Name: Not on Staff, PCP Position: [facility] Physician (General Medicine) Member Role: PCP Name: Anna Oconnor RN Position: [facility] [employer] Member Role: Primary Care Nurse Name: Kip Gonzalez RN Position: [facility] RN Member Role: Primary Care Nurse Address: Address: [address] [place] [address]- [place] Name: Anisha Hinds RN Position: [facility] RN Member Role: Primary Care Nurse Name: Sunitha Gutierrez RN Position: [facility] RN Member Role: Primary Care Nurse Name: April Acuña RN Position: [facility] RN Member Role: Primary Care Nurse Name: Li Esquivel RN Position: [facility] [employer] Member Role: Primary Care Nurse Name: Tunde White MD Position: [facility] Psychiatry MD Member Role: Lifetime Consulting Physician Address: Address: [address] [place] [address]- [place] Name: Triston Saravia MD Position: [facility] ED Medicine MD Member Role: Admitting Physician Address: Address: [address] [facility] [place] [address]- [place] Name: Marilou Hopkins RN Position: [facility] ED RN W/OE and Tasks Member Role: Patient Care Provider Care Team Related Persons Name: FORREST TO Address: home [address] [place] [address] Name: MÓNICA CREWS
--- OUTSIDE RECORDS SUMMARY | 2022-10-14 11:48 | XMS_ITS | Continuity of Care Document ---
Author Name Unknown Organization [facility] Address [address] [place] [address]- Care Team Providers Care Transformation Lead Name Role Phone Soto RAMIREZ MD, Bal Serrano Primary Care Physician Encounter [facility] Date(s): 05/21/20 - 05/22/[address] [address]- Discharge Disposition: Transferred to short-term general hospit Attending Physician: Konrad Dorsey MD Admitting Physician: [...] 04/18/20 14:17:00 EST, Route to Pharmacy Electronically, [facility] #[id number] Tablet, Partial fill upon patient request if the prescription... Start Date: 04/18/20 Status: Ordered acetaminophen-oxyCODONE 325 mg-5 mg oral tablet 1 tablet, Tablet, By Mouth, Once, Routine, 05/21/20 23:00:00 EST, Stop date 05/21/20 23:00:00 EST Start Date: 05/21/20 Stop Date: 05/21/20 Status: Completed Advair Diskus 250 mcg-50 mcg inhalation powder Inhalation, 2 times a day, Refills 0, Maintenance, 05/21/20 9:46:00 EST Start Date: 05/21/20 Status: Ordered albuterol CFC free 90 mcg/inh inhalation aerosol 2, puffs, Inhalation, Every 4 hours, PRN, # 18 Gm, Refills 3, Tot. Refills 3, Maintenance, 02/13/1911:48:23 EST, Aerosol, Route to Pharmacy Electronically, [id number], [facility]/pharmacy #[id number] Start Date: 02/13/19 Status: Ordered amitriptyline 100 mg oral tablet 1 tablet = 100 mg, By Mouth, Daily at bedtime, # 7 tablet, 3 Refills, Maintenance, 04/15/20 10:15:00 EST, Tablet, [email or web address] #[id number], Partial fill upon patient request if the prescription isfor a schedule II opioid drug., 183, cm, 04/15/20 0... Start Date: 04/15/20 Stop Date: 05/13/20 Status: Ordered amitriptyline 25 mg oral tablet 75 mg, 3, tablet, By Mouth, Daily, # 21 tablet, Refills 3, Tot. Refills 3, Maintenance, 04/13/20 14:55:00 EST, Route to Pharmacy Electronically, [email or web address] #[id number], Partial fill upon patientrequest if the prescription is for a schedule II op... Start Date: 04/13/20 Stop Date: 05/11/20 Status: Ordered baclofen 10 mg oral tablet 20 mg, 2, tablet, By Mouth, 2 times a day, # 56 tablet, Refills 1, Tot. Refills 1, Maintenance, 04/13/20 14:54:00 EST, Route to Pharmacy Electronically, [email or web address] #[id number], Partial fill uponpatient request if the prescription is for a schedu... Start Date: 04/13/20 Stop Date: 05/11/20 Status: Ordered busPIRone 15 mg oral tablet 1 tablet = 15 mg, By Mouth, 3 times a day, # 42 tablet, 1 Refills, Maintenance, 04/13/20 14:56:00 EST, Tablet, [facility] #[id number], Partial fill upon patient request if the [...] mL, 0 Refills, Maintenance, 11/15/18 14:21:09 EDT, [place], 2 sprays Nares, Both 2 times a [...] 1 Refills, Maintenance, 04/15/20 10:10:00 EST, Tablet, [facility] #[id number], Partial fill upon patient request if the [...] 10/11/20 12:36:00 EDT, 04/14/20 12:36:00 EST, Patch, [email or web address] #[id number], Partial fillupon patient request if the prescription is for a s... Start Date: 04/14/20 Stop Date: 10/11/20 Status: Ordered propranolol 40 mg oral tablet 40 mg, 1, tablet, By Mouth, 2 times a day, # 28 tablet, Refills 1, Tot. Refills 1, Maintenance, 04/13/20 14:56:00 EST, Route to Pharmacy Electronically, [email or web address] #[id number], Partial fill uponpatient request if the prescription [...] 04/13/20 14:57:00 EST, Route to Pharmacy Electronically, [email or web address] #[id number], Partial fill upon patient request if the [...] 1 Refills, Maintenance, 04/13/20 14:55:00 EST, Tablet, [facility] #[id number], Partial fill upon patient request if the prescription is for a schedule II opioid drug., 183, cm, 04/13/20 9:0... Start Date: 04/13/20 Stop Date: 05/11/20 Status: Ordered traMADol 50 mg oral tablet 1 tablet = 50 mg, By Mouth, Every 12 hours, PRN as needed for pain, # 10 tablet, 0 Refills, Maintenance, 04/22/20 15:54:00 EST, Tablet, [facility] #[id number], Partial fill upon patient request if the [...] Exam Date Time Procedure Performing Provider Status 05/21/20 9:30 PM Chest 2 Views Frontal and Lat Carin Nicolas; Cass (Verified) Notes: (Chest 2 Views Frontal and Lat) Reason For Exam: Shortness of Breath, Fever;Other: RESULT: Chest 2 Views Frontal and Lat Chest 2 Views Frontal and Lat Hx of Present Illness: patient arrived via ems secondary to mom calling reporting patient took all of his medications -- patient arrived via ems unresponsive -- patient became increasingly more response - patient denies taking pills - denies SI; Reason: Other:; Shortness of Breath, Fever; Clinical Q uestion(s): Aspiration COMPARISON: 04/22/2020. FINDINGS: LINES AND TUBES: None. LUNGS AND PLEURA: Suboptimal inspiration and underpenetration of extremity beams. Clear lungs. Normal pulmonary vascularity. No pleural effusion. No pneumothorax. HEART, MEDIASTINUM AND WAYNE: Heart is normal in size. Normal upper mediastinal and hilar contour. BONES AND SOFT TISSUES: No acute abnormality. IMPRESSION: No acute abnormality. WSN: [id number] Ordering Physician: Konrad Dorsey Dictated By: Roni Suero MD Dictated Date/Time: 05/21/20 9:41 pm Reviewed By: Roni Suero MD Signed By: Roni Suero MD Signed Date/Time: 05/21/20 9:41 pm Transcribed By: RAVINDER Transcribed Date/Time: 05/21/20 9:41 pm Vital Signs Most recent to oldest [Reference Range]: 1 2 3 Height 0 cm (05/22/20 12:25 AM) 0 cm (05/21/20 11:57 PM) 0 cm (05/21/20 10:58 PM) Weight 136 kg (05/22/20 12:25 AM) 136 kg (05/21/20 11:57 PM) 136 kg (05/21/20 10:58 PM) Oxygen Saturation [94-100 %] 98 % (05/22/20 12:25 AM) 99 % (05/21/20 11:57 PM) 96 % (05/21/20 10:58 PM) Pulse Rate [55-90 bpm] 79 bpm (05/22/20 12:25 AM) 80 bpm (05/21/20 11:57 PM) 78 bpm (05/21/20 10:58 PM) Blood Pressure [90-138/55-84 mm Hg] 106/68mm Hg (05/22/20 12:25 AM) 119/75mm Hg (05/21/20 11:57 PM) 107/67mm Hg (05/21/20 10:58 PM) Respiratory Rate [16-30 br/min] 12 br/min *L* (05/22/20 12:25 AM) 14 br/min *L* (05/21/20 11:57 PM) 12 br/min *L* (05/21/20 11:13 PM) Temperature [96.8-100.4 DegF] 96.5 DegF *L* (05/21/20 10:09 PM) 96.4 DegF *L* (05/21/20 10:03 PM) 96.3 DegF *L* (05/21/20 8:32 PM) Liters per Minute 2 L/min (05/22/20 12:25 AM) Mode of Delivery (Oxygen) Nasal cannula (05/22/20 12:25 AM) Nasal cannula (05/21/20 11:57 PM) Room air (05/21/20 10:58 PM) Blood pressure sites Arm, left (05/22/20 12:25 AM) Arm, left (05/21/20 11:57 PM) Arm, right (05/21/20 10:58 PM) Temperature Route Axillary (05/21/20 10:09 PM) Temporal (05/21/20 10:03 PM) Temporal (05/21/20 8:32 PM) Dry Weight 136 kg (05/22/20 12:25 AM) 136 kg (05/21/20 11:57 PM) 136 kg (05/21/20 10:58 PM) Social History Social History Type Response Tobacco Use: 1PPD. Sex
--- OUTSIDE RECORDS SUMMARY | 2022-10-14 11:49 | XMS_ITS | Continuity of Care Document ---
Author Name Unknown Organization [facility] Address [address] [place] [address]- Care Team Providers Care Biochemical Engineer Name Role Phone Soto RAMIREZ MD, Bal Serrano Primary Care Physician Encounter [facility] Date(s): 04/22/20 - 04/22/[address] [address]- Discharge Disposition: A-D/C Home Attending Physician: Konrad Graham MD Admitting Physician: Konrad Graham MD Referring Physician: Not on Staff, Referring MD Allergies, Adverse Reactions, Alerts Substance Reaction Severity Status Zoloft Active Thorazine Active traZODone Active ZyPREXA Active Medications acetaminophen-codeine 300 mg-30 mg oral tablet 2, tablet, By Mouth, Every 6 hours, PRN, # 10 tablet, Refills 0, Tot. Refills 0, Maintenance, for pain, 04/18/20 14:17:00 EST, Route to Pharmacy Electronically, [facility] #[id number] Tablet, Partial fill upon patient request if the prescription... Start Date: 04/18/20 Status: Ordered albuterol CFC free 90 mcg/inh inhalation aerosol 2, puffs, Inhalation, Every 4 hours, PRN, # 18 Gm, Refills 3, Tot. Refills 3, Maintenance, 02/13/1911:48:23 EST, Aerosol, Route to Pharmacy Electronically, [id number], [facility]/pharmacy #[id number] Start Date: 02/13/19 Status: Ordered Ambien 10 mg oral tablet 1 tablet = 10 mg, By Mouth, Daily at bedtime, PRN for sleep, for 14 days, # 14 tablet, 0 Refills, Acute 04/28/20 12:38:00 EST, 04/14/20 12:38:00 EST, Tablet, [facility] #[id number], Partial fillupon patient request if the prescription is for a s... Start Date: 04/14/20 Stop Date: 04/28/20 Status: Ordered amitriptyline 100 mg oral tablet 1 tablet = 100 mg, By Mouth, Daily at bedtime, # 7 tablet, 3 Refills, Maintenance, 04/15/20 10:15:00 EST, Tablet, [facility] #[id number], Partial fill upon patient request if the prescription isfor a schedule II opioid drug., 183, cm, 04/15/20 0... Start Date: 04/15/20 Stop Date: 05/13/20 Status: Ordered amitriptyline 25 mg oral tablet 75 mg, 3, tablet, By Mouth, Daily, # 21 tablet, Refills 3, Tot. Refills 3, Maintenance, 04/13/20 14:55:00 EST, Route to Pharmacy Electronically, [email or web address] #[id number], Partial fill upon patientrequest if the prescription is for a schedule II op... Start Date: 04/13/20 Stop Date: 05/11/20 Status: Ordered Ativan 1 mg oral tablet 1.5 tablet = 1.5 mg, By Mouth, 2 times a day, PRN as needed for anxiety, for 14 days, # 30 tablet, 1 Refills, Acute 05/11/20 14:57:00 EST, 04/13/20 14:57:00 EST, Tablet, [facility] #[id number], Partial fill upon patient request if the prescriptio... Start Date: 04/13/20 Stop Date: 05/11/20 Status: Ordered baclofen 10 mg oral tablet 20 mg, 2, tablet, By Mouth, 2 times a day, # 56 tablet, Refills 1, Tot. Refills 1, Maintenance, 04/13/20 14:54:00 EST, Route to Pharmacy Electronically, [email or web address] #[id number], Partial fill uponpatient request if the prescription is for a schedu... Start Date: 04/13/20 Stop Date: 05/11/20 Status: Ordered busPIRone 15 mg oral tablet 1 tablet = 15 mg, By Mouth, 3 times a day, # 42 tablet, 1 Refills, Maintenance, 04/13/20 14:56:00 EST, Tablet, [email or web address] #[id number], Partial fill upon patient request if the prescription is for a schedule II opioid drug., 183, cm, 04/13/20 9:04... Start Date: 04/13/20 Stop Date: 05/11/20 Status: Ordered fluticasone 50 mcg/inh nasal spray 2 sprays, Nares, Both, 2 times a day, # 9.9 mL, 0 Refills, Maintenance, 11/15/18 14:21:09 EDT, [place], 2 sprays Nares, Both 2 times a day Start Date: 11/15/18 Status: Ordered levothyroxine 0.05 mg oral tablet 1 tablet = 50 mcg, By Mouth, Daily, # 14 tablet, 1 Refills, Maintenance, 04/15/20 10:10:00 EST, Tablet, [email or web address] #[id number], Partial fill upon patient request if the prescription is for a schedule II opioid drug., 183, cm, 04/15/20 0:49:00 EST... Start Date: 04/15/20 Stop Date: 05/13/20 Status: Ordered Nicoderm C-Q Clear 21 mg/24 hr transdermal film, extended release 1 patch, Topically, Daily, for 60 days, Keep 12 hours on and 12 hours off., # 60 patch, 2 Refills, Acute 10/11/20 12:36:00 EDT, 04/14/20 12:36:00 EST, Patch, [email or web address] #[id number], Partial fillupon patient request if the prescription is for a s... Start Date: 04/14/20 Stop Date: 10/11/20 Status: Ordered propranolol 40 mg oral tablet 40 mg, 1, tablet, By Mouth, 2 times a day, # 28 tablet, Refills 1, Tot. Refills 1, Maintenance, 04/13/20 14:56:00 EST, Route to Pharmacy Electronically, [email or web address] #[id number], Partial fill uponpatient request if the prescription [...] 04/13/20 14:57:00 EST, Route to Pharmacy Electronically, [email or web address] #[id number], Partial fill upon patient request if the prescription is for a schedul... Start Date: 04/13/20 Stop Date: 05/11/20 Status: Ordered topiramate 200 mg oral tablet 1 tablet = 200 mg, By Mouth, 2 times a day, # 28 tablet, 1 Refills, Maintenance, 04/13/20 14:55:00 EST, Tablet, [email or web address] #[id number], Partial fill upon patient request if the prescription is for a schedule II opioid drug., 183, cm, 04/13/20 9:0... Start Date: 04/13/20 Stop Date: 05/11/20 Status: Ordered traMADol 50 mg oral tablet 1 tablet = 50 mg, By Mouth, Every 12 hours, PRN as needed for pain, # 10 tablet, 0 Refills, Maintenance, 04/22/20 15:54:00 EST, Tablet, [email or web address] #[id number], Partial fill upon patient request if the prescription is for a schedule II opioid drug... Start Date: 04/22/20 Status: Ordered Problem List Condition Effective Dates Status Health Status Inform ant Allergic rhinitis(Confirmed) Active Asthma(Confirmed) Active Bipolar disorder with depression(Confirmed) Active GERD (gastroesophageal reflu x disease)(Confirmed) Active Generalized anxiety disorder(Confirmed) Active Hypothyroidism(Confirmed) Active Results Radiology Reports * Exam Date Time Procedure Performing Provider Status 04/22/20 3:18 PM Chest 2 Views Frontal and Lat Olivia Machado; Cass (Verified) Notes: (Chest 2 Views Frontal and Lat) Reason For Exam: Traumatic Chest Pain;Other: RESULT: Chest 2 Views Frontal and Lat Chest 2 Views Frontal and Lat Reason: Other:; Traumatic Chest Pain; Clinical Question(s): Other:; Pneumothorax, Fracture COMPARISON: 04/06/2020 FINDINGS: LINES AND TUBES: None. LUNGS AND PLEURA: Clear lungs. Normal pulmonary vascularity. No pleural effusion. No pneumothorax. HEART, MEDIASTINUM AND WAYNE: Heart is normal in size. Normal upper mediastinal and hilar contour. BONES AND SOFT TISSUES: No acute abnormality. IMPRESSION: No acute abnormality. WSN: [id number] Ordering Physician: Konrad Graham Dictated By: Jillian Gotti MD Dictated Date/Time: 04/22/20 3:26 pm Reviewed By: Jillian Gotti MD Signed By: Jillian Gotti MD Signed Date/Time: 04/22/20 3:26 pm Transcribed By: RAVINDER Transcribed Date/Time: 04/22/20 3:25 pm Vital Signs Most recent to oldest [Reference Range]: 1 Height 183 cm (04/22/20 3:39 PM) Weight 138.4 kg (04/22/20 3:39 PM) Oxygen Saturation [94-100 %] 100 % (04/22/20 2:58 PM) Pulse Rate [55-90 bpm] 89 bpm (04/22/20 2:58 PM) Blood Pressure [90-138/55-84 mm Hg] 151/ 77mm Hg *H* (04/22/20 2:58 PM) Respiratory Rate [16-30 br/min] 18 br/mi n (04/22/20 2:58 PM) Temperature [96.8-100.4 DegF] 97.9 DegF (04/22/20 2:58 PM) Mode of Delivery (Oxygen) Room air (04/22/20 2:58 PM) Temperature Route Oral (04/22/20 2:58 PM) Dry Weight 138.4 kg (04/22/20 3:39 PM) Social History Social History Type Response Smoking Status 10 or more cigarette s (1/2 pack or more)/day in last 30 days; Tobacco user in household: No entered on: 11/15/18 Sex
--- OUTSIDE RECORDS SUMMARY | 2022-10-14 11:49 | XMS_ITS | Continuity of Care Document ---
Author Name Unknown Organization [facility] Address [address] [place] [address]- Care Team Providers Care Regional Vice President Surgical Sales Name Role Phone Soto RAMIREZ MD, Bal Serrano Primary Care Physician ( [phone] Encounter [facility] Date(s): 10/10/20 - 11/09/20 [facility] [address] [place] [address]- Allergies, Adverse Reactions, Alerts Substance Reaction Severity [...] 02/13/1911:48:23 EST, Aerosol, Route to Pharmacy Electronically, [id number], [facility]/pharmacy #[id number] Start Date: 02/13/19 [...] 3 Refills, Maintenance, 04/15/20 10:15:00 EST, Tablet, [facility] #[id number], Partial fill upon patient request if the prescription isfor a schedule II opioid drug., 183, cm, 04/15/20 0... Start Date: 04/15/20 Stop Date: 05/13/20 Status: Ordered amitriptyline 25 mg oral tablet 75 mg, 3, tablet, By Mouth, Daily, # 21 tablet, Refills 3, Tot. Refills 3, Maintenance, 04/13/20 14:55:00 EST, Route to Pharmacy Electronically, [facility] #[id number], Partial fill upon patientrequest if the prescription is for a schedule II op... Start Date: 04/13/20 Stop Date: 05/11/20 Status: Ordered baclofen 10 mg oral tablet 20 mg, 2, tablet, By Mouth, 2 times a day, # 56 tablet, Refills 1, Tot. Refills 1, Maintenance, 04/13/20 14:54:00 EST, Route to Pharmacy Electronically, [facility] #[id number], Partial fill uponpatient request if the prescription is for a schedu... Start Date: 04/13/20 Stop Date: 05/11/20 Status: Ordered busPIRone 15 mg oral tablet 1 tablet = 15 mg, By Mouth, 3 times a day, # 42 tablet, 1 Refills, Maintenance, 04/13/20 14:56:00 EST, Tablet, [facility] #[id number], Partial fill upon patient request if the prescription is for a schedule II opioid drug., 183, cm, 04/13/20 9:04... Start Date: 04/13/20 Stop Date: 05/11/20 Status: Ordered cloNIDine 0.1 mg oral tablet 0.1 mg, 1, tablet, By Mouth, 2 times a day, # 10 tablet, Refills 0, Tot. Refills 0, Maintenance, 10/22/20 15:02:00 EDT, Route to Pharmacy Electronically, [facility] #[id number], Partial fill upon patient request if the [...] 09/13/20 14:45:00 EDT, Route to Pharmacy Electronically, [facility] #[id number], Partial fill upon patient request if the prescription is for a salima... Start Date: 09/13/20 Status: Ordered Flomax 0.4 mg oral capsule 0.4 mg, 1, capsule, By Mouth, Daily, # 30 capsule, Refills 0, Tot. Refills 0, Maintenance, 10/22/2121:52:00 EDT, Route to Pharmacy Electronically, [facility] #[id number], Partial fill upon patient request if the prescription is for a schedule II... Start Date: 10/22/20 Status: Ordered fluticasone 50 mcg/inh nasal spray 2 sprays, Nares, Both, 2 times a day, # 9.9 mL, 0 Refills, Maintenance, 11/15/18 14:21:09 EDT, [place], 2 sprays Nares, Both 2 times a [...] Daily, # 30 patch, 0 Refills, Acute 03/16/22 9:00:00 EDT, 05/28/20 15:55:00 EDT, Patch, [facility] #[id number], Partial fill upon patient request if the prescription is for aschedule II opioid drug., 1 patch Topically Daily,... Start Date: 05/28/20 Stop Date: 05/28/21 Status: Ordered propranolol 40 mg oral tablet 40 mg, 1, tablet, By Mouth, 2 times a day, # 28 tablet, Refills 1, Tot. Refills 1, Maintenance, 04/13/20 14:56:00 EST, Route to Pharmacy Electronically, [facility] #[id number], Partial fill uponpatient request if the prescription [...] 04/13/20 14:57:00 EST, Route to Pharmacy Electronically, [facility] #[id number], Partial fill upon patient request if the [...] 0 Refills, Maintenance, 07/27/20 19:15:00 EDT, Tablet, [facility] #[id number], Partial fill upon patient request if the [...] MESH VENTRALIGHT ECHO ELLIPS 4 - BARD ([id number]) 1 Bard Unknown HAYDEE:{[id number] Assigning Author ity:FDA
--- OUTSIDE RECORDS SUMMARY | 2022-10-14 11:49 | XMS_ITS | Continuity of Care Document ---
Author Name Unknown Organization [facility] April Ramos Surger y Address [address], [facility] [address] [place] [address]- Care Team Providers Care Reptile Keeper Name Role Phone Elijah Gibbons MD Primary Care Physician Encounter [facility] Date(s): 03/22/19 - 04/01/19 [facility] April Richard Surgery [address], [address] [place] [address]- [facility] Attending Physician: Admtr, Ar8 Admitting Physician: Admtr, Ar8 Referring Physician: Admtr, Ar8 Allergies, Adverse Reactions, Alerts Substance Reaction Severity Status Zoloft Active Thorazine Active traZODone Active ZyPREXA Active PROzac Active SEROquel Active Medications albuterol CFC free 90 mcg/inh inhalation aerosol 2, puffs, Inhalation, Every 4 hours, PRN, # 18 Gm, Refills 3, Tot. Refills 3, Maintenance, 02/13/1911:48:23 EST, Aerosol, Route to Pharmacy Electronically, [id number], [facility]/pharmacy #1111 Start Date: 02/13/19 Status: Ordered busPIRone [...] Refills, Maintenance, 02/28/19 12:11:45 EST, EC Tablet, [facility]/pharmacy #1111, 183, cm, 02/28/19 11:39:08 EST, Height, [...] Maintenance, 198:58:23 EST, Route to Pharmacy Electronically, [id number], [facility]/pharmacy #1111, 183, cm, 02/17/19 8:22:07 EST, Height, 127, kg... Start Date: 02/17/19 Status: Ordered fluticasone 50 mcg/inh nasal spray 2 sprays, Nares, Both, 2 times a day, # 9.9 mL, 0 Refills, Maintenance, 11/15/18 14:21:09 EDT, [place], 2 sprays Nares, Both 2 times a day Start Date: 11/15/18 Status: Ordered gabapentin 100 mg oral capsule 100 mg, 1, capsule, By Mouth, Daily at bedtime, # 30 capsule, Refills 0, Tot. Refills 0, Maintenance, 02/28/19 12:13:04 EST, Route to Pharmacy Electronically, [facility]/pharmacy #1111, 183, cm, 02/28/19 11:39:08 EST, Height, [...]
--- OUTSIDE RECORDS SUMMARY | 2022-10-14 11:49 | XMS_ITS | Continuity of Care Document ---
Author Name Unknown Organization [facility] Address [address] [place] [address]- Care Team Providers Care Water Engineer Name Role Phone Soto RAMIREZ MD, Bal Serrano Primary Care Physician Encounter [facility] Date(s): 07/27/20 - 07/27/[address] [address]- Discharge Disposition: A-D/C Home Attending Physician: Konrad Graham MD Admitting Physician: Konrad Graham MD Referring Physician: Not on Staff, Referring MD Allergies, Adverse Reactions, Alerts Substance Reaction Severity Status Zoloft Active Thorazine Active traZODone Active ZyPREXA Active Medications acetaminophen 325 mg oral tablet 650 mg, 2, tablet, By Mouth, Every 6 hours, PRN, alternate with ibuprofen, Refills 0, Maintenance, Pain , Mild, 05/28/20 15:48:00 EDT, Partial fill upon patient request if the prescription is for a schedule II opioid drug. Start Date: 05/28/20 Status: Ordered Advair Diskus 250 mcg-50 mcg [...] 02/13/1911:48:23 EST, Aerosol, Route to Pharmacy Electronically, [id number], [facility]/pharmacy #1111 Start Date: 02/13/19 Status: Ordered amitriptyline 100 mg oral tablet 1 tablet = 100 mg, By Mouth, Daily at bedtime, # 7 tablet, 3 Refills, Maintenance, 04/15/20 10:15:00 EST, Tablet, [facility] #[id number], Partial fill upon patient request if the prescription isfor a schedule II opioid drug., 183, cm, 04/15/20 0... Start Date: 04/15/20 Stop Date: 05/13/20 Status: Ordered amitriptyline 25 mg oral tablet 75 mg, 3, tablet, By Mouth, Daily, # 21 tablet, Refills 3, Tot. Refills 3, Maintenance, 04/13/20 14:55:00 EST, Route to Pharmacy Electronically, [facility] #[id number], Partial fill upon patientrequest if the prescription is for a schedule II op... Start Date: 04/13/20 Stop Date: 05/11/20 Status: Ordered baclofen 10 mg oral tablet 20 mg, 2, tablet, By Mouth, 2 times a day, # 56 tablet, Refills 1, Tot. Refills 1, Maintenance, 04/13/20 14:54:00 EST, Route to Pharmacy Electronically, [facility] #[id number], Partial fill uponpatient request if the prescription is for a schedu... Start Date: 04/13/20 Stop Date: 05/11/20 Status: Ordered busPIRone 15 mg oral tablet 1 tablet = 15 mg, By Mouth, 3 times a day, # 42 tablet, 1 Refills, Maintenance, 04/13/20 14:56:00 EST, Tablet, [facility] #[id number], Partial fill upon patient request if the prescription is for a schedule II opioid drug., 183, cm, 04/13/20 9:04... Start Date: 04/13/20 Stop Date: 05/11/20 Status: Ordered CeleBREX 100 mg oral capsule 1 capsule = 100 mg, By Mouth, 2 times a day, # 15 capsule, 0 Refills, Maintenance, 07/27/20 19:07:00 EDT, Capsule, [facility] #[id number], Partial fill upon patient request if the prescription is for a schedule II opioid drug., 184, cm, 07/27/20... Start Date: 07/27/20 Status: Ordered fluticasone 50 mcg/inh nasal spray 2 sprays, Nares, Both, 2 times a day, # 9.9 mL, 0 Refills, Maintenance, 11/15/18 14:21:09 EDT, [place], 2 sprays Nares, Both 2 times a day Start Date: 11/15/18 Status: Ordered furosemide 20 mg oral tablet 20 mg, 1, tablet, By Mouth, Daily, Refills 0, Maintenance, 05/28/20 15:49:00 EDT, Partial fill uponpatient request if the prescription is for a schedule II opioid drug. Start Date: 05/28/20 Status: Ordered Multivitamin Tablet 1 tablet, By Mouth, Daily, 0 Refills, Maintenance, 05/24/20 16:43:00 EST, Tablet, Partial fill uponpatient request if the prescription is for a schedule II opioid drug. Start Date: 05/24/20 Status: Ordered nicotine 14 mg/24 hr transdermal film, extended release 1 patch, Topically, Daily, # 30 patch, 0 Refills, Acute 05/28/21 9:00:00 EDT, 05/28/20 15:55:00 EDT, Patch, [facility] #[id number], Partial fill upon patient request if the prescription is for aschedule II opioid drug., 1 patch Topically Daily,... Start Date: 05/28/20 Stop Date: 05/28/21 Status: Ordered propranolol 40 mg oral tablet 40 mg, 1, tablet, By Mouth, 2 times a day, # 28 tablet, Refills 1, Tot. Refills 1, Maintenance, 04/13/20 14:56:00 EST, Route to Pharmacy Electronically, [facility] #[id number], Partial fill uponpatient request if the prescription [...] 04/13/20 14:57:00 EST, Route to Pharmacy Electronically, [facility] #[id number], Partial fill upon patient request if the [...] 1 Refills, Maintenance, 04/13/20 14:55:00 EST, Tablet, [facility] #[id number], Partial fill upon patient request if the prescription is for a schedule II opioid drug., 183, cm, 04/13/20 9:0... Start Date: 04/13/20 Stop Date: 05/11/20 Status: Ordered traMADol 50 mg oral tablet 1 tablet = 50 mg, By Mouth, Every 12 hours, PRN for pain, # 10 tablet, 0 Refills, Maintenance, 07/27/20 19:15:00 EDT, Tablet, [facility] #[id number], Partial fill upon patient request if the prescription is for a schedule II opioid drug., 184, cm... Start Date: 07/27/20 Status: Ordered Problem List Condition Effective Dates Status Health Status Inform ant Allergic rhinitis(Confirmed) Active Asthma(Confirmed) Active Bipolar disorder with depression(Confirmed) Active GERD (gastroesophageal reflu x disease)(Confirmed) Active Generalized anxiety disorder(Confirmed) Active Hypothyroidism(Confirmed) Active Vital Signs Most recent to oldest [Reference Range]: 1 2 Height 184 cm (07/27/20 7:30 PM) 184 cm (07/27/20 6:03 PM) Weight 137 kg (07/27/20 7:30 PM) 137 kg (07/27/20 6:03 PM) Oxygen Saturation [94-100 %] 97 % (07/27/20 7:30 PM) 97 % (07/27/20 6:03 PM) Pulse Rate [55-90 bpm] 101 bpm *H* (07/27/20 7:30 PM) 103 bpm *H* (07/27/20 6:03 PM) Body Mass Index [18.5-24.99] 40.47 *>HHI* (07/27/20 7:30 PM) Blood Pressure [90-138/55-84 mm Hg] 144/ 104mm Hg *H* (07/27/20 7:30 PM) 143/96mm Hg *H* (07/27/20 6:03 PM) Respiratory Rate [16-30 br/min] 18 br/mi n (07/27/20 7:30 PM) 18 br/min (07/27/20 6:03 PM) Temperature [96.8-100.4 DegF] 96.9 DegF (07/27/20 7:30 PM) 98.1 DegF (07/27/20 6:03 PM) Mode of Delivery (Oxygen) Room air (07/27/20 7:30 PM) Room air (07/27/20 6:03 PM) Blood pressure sites Arm, left (07/27/20 7:30 PM) Arm, left (07/27/20 6:03 PM) Temperature Route Temporal (07/27/20 7:30 PM) Temporal (07/27/20 6:03 PM) Dry Weight 137 kg (07/27/20 7:30 PM) 137 kg (07/27/20 6:03 PM) Weight Obtained Via Patient/family state d (07/27/20 6:03 PM) Dry Weight Obtained Via Patient/family s tated (07/27/20 6:03 PM) Social History Social History Type Response Tobacco Use: 1PPD. Sex
--- OUTSIDE RECORDS SUMMARY | 2022-10-14 11:49 | XMS_ITS | Continuity of Care Document ---
Author Name Unknown Organization [facility] Address [address] [place] [address]- Care Team Providers Care Reading Aide Name Role Phone Soto RAMIREZ MD, Bal Serrano Primary Care Physician Encounter [facility] Date(s): 06/10/21 - 06/10/[address] [address]- Discharge Disposition: A-D/C Home Attending Physician: Gokul [...] Recorded tetanus/diphtheria/pertussis, acel(Tdap) 12/19/16 Recorded Medications Abilify 10 mg oral tablet 10 mg, 1, tablet, By Mouth, Daily, # 30 tablet, Refills 0, Maintenance, 06/10/21 4:48:00 EDT, Partial fill upon patient request if the prescription is for a schedule II opioid drug. Start Date: 06/10/21 Status: Ordered acetaminophen-codeine 300 mg-30 mg oral tablet 1, tablet, By Mouth, Every 4 hours, PRN, # 10 tablet, Refills 0, Tot. Refills 0, Acute, for pain, 06/11/21 10:22:00 EDT, 06/10/21 10:21:00 EDT, Route to Pharmacy Electronically, [facility] #[id number] Tablet, Partial fill upon patient request if... Start Date: 06/10/21 Stop Date: 06/11/21 Status: Ordered Advair Diskus 250 mcg-50 mcg inhalation powder Inhalation, 2 times a day, Refills 0, Maintenance, 05/21/20 9:46:00 EST Start Date: 05/21/20 Status: Ordered amiTRIPTYLINE = 150 mg, By Mouth, Daily at bedtime, 0 Refills, Maintenance, 06/10/21 4:49:00 EDT, Partial fill upon patient request if the prescription is for a schedule II opioid drug. Start Date: 06/10/21 Status: Ordered amitriptyline 100 mg oral tablet 1 tablet = 100 mg, By Mouth, Daily at bedtime, # 7 tablet, 3 Refills, Maintenance, 04/15/20 10:15:00 EST, Tablet, [facility] #[id number], Partial fill upon patient request if the prescription isfor a schedule II opioid drug., 183, cm, 04/15/20 0... Start Date: 04/15/20 Stop Date: 05/13/20 Status: Ordered baclofen 20 mg oral tablet 20 mg, 1, tablet, By Mouth, 2 times a day, Maintenance, 03/04/21 13:36:00 EST, Partial fill upon patient request if the prescription is for a schedule II opioid drug. Start Date: 03/04/21 Stop Date: 03/11/21 Status: Ordered BuSpar 10 mg oral tablet 30 mg, By Mouth, 2 times a day, # 90 tablet, Refills 0, Maintenance, 06/10/21 4:50:00 EDT, Partial fill upon patient request if the prescription is for a schedule II opioid drug. Start Date: 06/10/21 Status: Ordered calcium carbonate 500 mg (200 [...] Status: Ordered cloNIDine 0.1 mg oral tablet See Instructions, 0.3 mg By Mouth 3 times a day, Refills 0, Maintenance, 06/10/21 4:47:00 EDT, Instructions Replace Required Details, Partial fill upon patient request if the prescription is for a schedule II opioid drug. Start Date: 06/10/21 Status: Ordered Codeine 30mg/Acetaminophen 300mg Tablet 1 tablet, Tablet, By Mouth, Once, PRN for Other, Pain, JAZLYN, 06/10/21 5:25:00 EDT Start Date: 06/10/21 Stop Date: 06/10/21 Status: Completed Combivent Respimat 20 mcg-100 mcg/inh inhalation aerosol [...] 09/13/20 14:45:00 EDT, Route to Pharmacy Electronically, [facility] #[id number], Partial fill upon patient request if the prescription is for a salima... Start Date: 09/13/20 Status: Ordered Flomax 0.4 mg oral capsule 0.4 mg, 1, capsule, By Mouth, Daily, # 30 capsule, Refills 0, Tot. Refills 0, Maintenance, 10/22/2121:52:00 EDT, Route to Pharmacy Electronically, [facility] #[id number], Partial fill upon patient request if the prescription is for a schedule II... Start Date: 10/22/20 Status: Ordered fluticasone 50 mcg/inh nasal spray 2 sprays, Nares, Both, 2 times a day, # 9.9 mL, 0 Refills, Maintenance, 11/15/18 14:21:09 EDT, [place], 2 sprays Nares, Both 2 times a [...] 0 Refills, Maintenance, 01/07/21 18:42:00 EDT, Tablet, [facility] #[id number], Partial fill upon patient request if the prescription is for a schedule II opioid drug., 183, cm, 01/07/21 17:... Start Date: 01/07/21 Status: Ordered HydrOXYzine HCL Tablet = 50 mg, By Mouth, 4 times a day, PRN Itch, 0 Refills, Maintenance, 06/10/21 4:50:00 EDT, Tablet, Partial fill upon patient request if the prescription is for a schedule II opioid drug. Start Date: 06/10/21 Status: Ordered methocarbamol 500 mg oral tablet [...] opioid drug. Start Date: 03/04/21 Status: Ordered Neurontin 800 mg oral tablet 1 tablet = 800 mg, By Mouth, 2 times a day, # 60 tablet, 0 Refills, Maintenance, 06/10/21 10:21:00 EDT, Tablet, [facility] #[id number], Partial fill upon patient request if the prescription is for a schedule II opioid drug., 184, cm, 06/10/21 8:5... Start Date: 06/10/21 Status: Ordered propranolol 60 mg oral tablet [...] 0 Refills, Maintenance, 07/27/20 19:15:00 EDT, Tablet, [facility] #[id number], Partial fill upon patient request if the prescription is for a schedule II opioid drug., 184, cm... Start Date: 07/27/20 Status: Ordered Urecholine Tablet 10 mg, By Mouth, 3 times a day, Refills 0, Maintenance, 02/06/21 8:01:00 EST, Partial fill upon patient request if the prescription is for a schedule II opioid drug. Start Date: 02/06/21 Status: Ordered Xanax 1 mg oral tablet See Instructions, 3 tablet By Mouth daily, 0 Refills, Maintenance, 06/10/21 4:48:00 EDT, Tablet, Partial fill upon patient request if the prescription is for a schedule II opioid drug. Start Date: 06/10/21 Status: Ordered Problem List Condition Effective Dates Status Health Status Inform ant Allergic rhinitis(Confirmed) Active Asthma(Confirmed) Active Bipolar disorder with depression(Confirmed) Active GERD (gastroesophageal reflu x disease)(Confirmed) Active Generalized anxiety disorder(Confirmed) Active Hypothyroidism(Confirmed) Active Severe obesity(Confirmed) Active Vital Signs Most recent to oldest [Reference Range]: 1 2 3 Height 184 cm (06/10/21 8:53 AM) 184 cm (06/10/21 4:31 AM) 184 cm (06/10/21 4:10 AM) Weight 139 kg (06/10/21 4:31 AM) 139 kg (06/10/21 4:10 AM) Oxygen Saturation [94-100 %] 100 % (06/10/21 8:53 AM) 95 % (06/10/21 4:10 AM) Pulse Rate [55-90 bpm] 98 bpm *H* (06/10/21 8:53 AM) 88 bpm (06/10/21 4:10 AM) Body Mass Index [18.5-24.99] 41.06 *>HHI* (06/10/21 4:10 AM) Blood Pressure [90-138/55-84 mm Hg] 139/95mm Hg *H* (06/10/21 8:53 AM) 138/96mm Hg (06/10/21 4:10 AM) Respiratory Rate [16-30 br/min] 20 br/min (06/10/21 8:53 AM) 18 br/min (06/10/21 6:33 AM) 20 br/min (06/10/21 5:33 AM) Temperature [96.8-100.4 DegF] 98.6 DegF (06/10/21 4:10 AM) Mode of Delivery (Oxygen) Room air (06/10/21 8:53 AM) Room air (06/10/21 4:10 AM) Blood pressure sites Arm, left (06/10/21 8:53 AM) Temperature Route Oral (06/10/21 4:10 AM) Dry Weight 139 kg (06/10/21 4:31 AM) 139 kg (06/10/21 4:10 AM) Weight Obtained Via Patient/family state d (06/10/21 4:10 AM) Dry Weight Obtained Via Patient/family s tated (06/10/21 4:10 AM) Social History Social History Type Response Smoking Status 10 or more cigarette s (1/2 pack or more)/day in last 30 days entered on: 06/10/21 Sex Medical Equipment Implanted Date:09/13/20Target Site:Abdomen Description Quantity MRI Company Model MESH VENTRALIGHT ECHO ELLIPS 4 - BARD ([id number]) 1 Bard Unknown HAYDEE:{01}[id number] Assigning Author ity:FDA
--- OUTSIDE RECORDS SUMMARY | 2022-10-14 11:49 | XMS_ITS | Continuity of Care Document ---
Author Name Unknown Organization [facility] Address [address] [place] [address]- Care Team Providers Care Rn Digestive Name Role Phone Shai HENDERSON, Elijah Primary Care Physician [phone] Encounter [facility] Date(s): 03/07/19 - 03/07/[address] [address]- [facility] Attending Physician: Valerio WAITE, Nicky Ríos Allergies, Adverse Reactions, Alerts Substance Reaction Severity Status Zoloft Active Thorazine Active traZODone Active ZyPREXA Active PROzac Active SEROquel Active Medications albuterol CFC free 90 mcg/inh inhalation aerosol 2, puffs, Inhalation, Every 4 hours, PRN, # 18 Gm, Refills 3, Tot. Refills 3, Maintenance, 02/13/1911:48:23 EST, Aerosol, Route to Pharmacy Electronically, [id number], [facility]1111 Start Date: 02/13/19 Status: Ordered busPIRone [...] Refills, Maintenance, 02/28/19 12:11:45 EST, EC Tablet, [facility], 183, cm, 02/28/19 11:39:08 [...] Maintenance, 198:58:23 EST, Route to Pharmacy Electronically, [id number], [facility]/pharmacy #1111, 183, cm, 02/17/19 8:22:07 EST, Height, 127, kg... Start Date: 02/17/19 Status: Ordered fluticasone 50 mcg/inh nasal spray 2 sprays, Nares, Both, 2 times a day, # 9.9 mL, 0 Refills, Maintenance, 11/15/18 14:21:09 EDT, [place], 2 sprays Nares, Both 2 times a day Start Date: 11/15/18 Status: Ordered gabapentin 100 mg oral capsule 100 mg, 1, capsule, By Mouth, Daily at bedtime, # 30 capsule, Refills 0, Tot. Refills 0, Maintenance, 02/28/19 12:13:04 EST, Route to Pharmacy Electronically, [facility]/pharmacy #1111, 183, cm, 02/28/19 11:39:08 EST, Height, 124, kg, 02/22/19 8:26:27 EST, D... Start Date: 02/28/19 Status: Ordered hydrOXYzine hydrochloride 50 mg oral tablet 1 tablet = 50 mg, By Mouth, 4 times a day, PRN for anxiety, # 40 tablet, 0 Refills, Acute 03/21/19 12:10:00 EST, 02/28/19 12:09:57 EST, Tablet, [facility]/pharmacy #1111, 183, cm, 02/28/19 11:39:08 EST, [...]
--- OUTSIDE RECORDS SUMMARY | 2022-10-14 11:49 | XMS_ITS | Continuity of Care Document ---
Author Name Unknown Organization [facility] Address [address] [place] [address]- Care Team Providers Care Insurance Claims Specialist Name Role Phone Elijah Gibbons MD Primary Care Physician [phone] [id number] Date(s): 05/04/19 - 06/15/19 [facility] [address] [place] [address]- [facility] Attending Physician: Cassandra Call DO Allergies, Adverse Reactions, Alerts Substance Reaction Severity Status Zoloft Active Thorazine Active traZODone Active ZyPREXA Active PROzac Active SEROquel Active Medications albuterol CFC free 90 mcg/inh inhalation aerosol 2, puffs, Inhalation, Every 4 hours, PRN, # 18 Gm, Refills 3, Tot. Refills 3, Maintenance, 02/13/1911:48:23 EST, Aerosol, Route to Pharmacy Electronically, [id number], [facility]/pharmacy #1111 Start Date: 02/13/19 Status: Ordered [...] Refills, Maintenance, 02/28/19 12:11:45 EST, EC Tablet, [facility]/pharmacy #1111, 183, cm, 02/28/19 11:39:08 EST, [...] Maintenance, 198:58:23 EST, Route to Pharmacy Electronically, [id number], [facility]/pharmacy #1111, 183, cm, 02/17/19 8:22:07 EST, Height, 127, kg... Start Date: 02/17/19 Status: Ordered fluticasone 50 mcg/inh nasal spray 2 sprays, Nares, Both, 2 times a day, # 9.9 mL, 0 Refills, Maintenance, 11/15/18 14:21:09 EDT, [place], 2 sprays Nares, Both 2 times a day Start Date: 11/15/18 Status: Ordered gabapentin 100 mg oral capsule 100 mg, 1, capsule, By Mouth, Daily at bedtime, # 30 capsule, Refills 0, Tot. Refills 0, Maintenance, 02/28/19 12:13:04 EST, Route to Pharmacy Electronically, [facility]/pharmacy #1111, 183, cm, 02/28/19 11:39:08 EST, [...]
--- OUTSIDE RECORDS SUMMARY | 2022-10-14 11:49 | XMS_ITS | Continuity of Care Document ---
Author Name Unknown Organization [facility] Address [address] [place] [address]- Care Team Providers Care Case Planner Name Role Phone Soto RAMIREZ MD, Bal Serrano Primary Care Physician Encounter [facility] Date(s): 08/15/22 - 08/15/[address] [address]- Discharge Disposition: A-D/C Home Attending Physician: Kayli HENDERSON, Xavier Rodrigues Admitting Physician: Xavier Milan MD Referring Physician: Not on Staff, Referring MD Allergies, Adverse Reactions, Alerts Substance Reaction Severity Status Zoloft Active ZyPREXA Active traZODone Active Immunizations Given and Recorded Vaccine Date Status Refusal Reason tetanus/diphtheria/pertussis, acel(Tdap) 04/09/22 Recorded tetanus/diphtheria/pertussis, acel(Tdap) 05/18/18 Recorded tetanus/diphtheria/pertussis, acel(Tdap) 12/19/16 Recorded [id number] 12y+ bivalent booster vax 02/11/22 Recorded SARS-CoV-2 (COVID-19) mRNA-1273 vaccine 05/01/21 R ecorded influenza virus vaccine, inactivated 01/11/21 Sandro rded influenza virus vaccine, inactivated 12/27/17 Sandro rded influenza virus vaccine, inactivated 04/28/16 Sandro rded SARS-CoV-2 (COVID-19) mRNA BNT-162b2 vac 09/19/20 Recorded SARS-CoV-2 (COVID-19) mRNA BNT-162b2 vac 08/29/20 Recorded tetanus-diphtheria toxoids (Td) 12/14/18 Recorded Medications acetaminophen-codeine 300 mg-30 mg oral tablet 1, tablet, By Mouth, Every 6 hours, PRN, for 3 days, # 10 tablet, Refills 0, Tot. Refills 0, Acute,Pain , Severe, 08/18/22 20:34:00 EDT, 08/15/22 20:34:00 EDT, Route to Pharmacy Electronically, [id number] Tablet, Partial fill upon pa... Start Date: 08/15/22 Stop Date: 08/18/22 Status: Ordered ARIPiprazole 30 mg oral tablet 1 tablet = 30 mg, By Mouth, Daily, TAKE ONE TABLET BY MOUTH DAILY IN AM, # 14 tablet, 1 Refills, Maintenance, 08/05/22 8:26:00 EDT, Tablet, [facility], Partial fill upon patient requestif the prescription is for a schedule II opioid dafne... Start Date: 08/05/22 Stop Date: 09/02/22 Status: Ordered benztropine 1 mg oral tablet 1 mg, 1, tablet, By Mouth, 2 times a day, TAKE ONE TABLET BY MOUTH TWO TIMES DAILY, # 28 tablet, Refills 1, Tot. Refills 1, Maintenance, 08/05/22 9:34:00 EDT, Route to Pharmacy Electronically, [facility], Partial fill upon patient reques... Start Date: 08/05/22 Stop Date: 09/02/22 Status: Ordered busPIRone 30 mg oral tablet 1 tablet = 30 mg, By Mouth, 2 times a day, TAKE ONE TABLET BY MOUTH TWO TIMES DAILY, # 28 tablet, 1Refills, Maintenance, 08/05/22 8:27:00 EDT, Tablet, [facility], Partial fill upon patient request if the prescription is for a schedule I... Start Date: 08/05/22 Stop Date: 09/02/22 Status: Ordered chlorproMAZINE 50 mg oral tablet See Instructions, TAKE ONE TABLET (50MG) BY MOUTH DAILY AT 9AM, 3PM AND TWO TABLETS (100MG) BY MOUTH DAILY AT BEDTIME, # 56 tablet, 1 Refills, Maintenance, 08/05/22 9:34:00 EDT, Tablet, [facility], Partial fill upon patient request if th... Start Date: 08/05/22 Status: Ordered cloNIDine 0.2 mg oral tablet 0.2 mg, 1, tablet, By Mouth, 2 times a day, TAKE ONE TABLET BY MOUTH TWO TIMES DAILY, # 28 tablet, Refills 1, Tot. Refills 1, Maintenance, 08/05/22 8:28:00 EDT, Route to Pharmacy Electronically, [facility], Partial fill upon patient requ... Start Date: 08/05/22 Stop Date: 09/02/22 Status: Ordered divalproex sodium 500 mg oral enteric coated tablet 2 tablets, By Mouth, 2 times a day, TAKE TWO TABLETS (1000MG) BY MOUTH TWO TIMES DAILY, # 56 tablet, 1 Refills, Maintenance, 08/05/22 9:36:00 EDT, Tablet, [facility], Partial fill upon patient request if the prescription is for a schedul... Start Date: 08/05/22 Stop Date: 09/02/22 Status: Ordered docusate sodium 100 mg oral capsule 100 mg, 1, capsule, By Mouth, 2 times a day, TAKE ONE CAPSULE BY MOUTH TWO TIMES DAILY, # 60 capsule, Refills 0, Tot. Refills 0, Maintenance, 08/05/22 8:29:00 EDT, Route to Pharmacy Electronically, [facility], Partial fill upon patient r... Start Date: 08/05/22 Status: Ordered escitalopram 10 mg oral tablet 1 tablet = 10 mg, By Mouth, Daily, TAKE ONE TABLET BY MOUTH DAILY, # 14 tablet, 1 Refills, Maintenance, 08/05/22 8:29:00 EDT, Tablet, [facility], Partial fill upon patient request if the prescription is for a schedule II opioid drug., 18... Start Date: 08/05/22 Stop Date: 09/02/22 Status: Ordered furosemide 80 mg oral tablet 80 mg, 1, tablet, By Mouth, Daily, TAKE ONE TABLET BY MOUTH DAILY, # 14 tablet, Refills 1, Tot. Refills 1, Maintenance, 08/05/22 8:30:00 EDT, Route to Pharmacy Electronically, [facility], Partial fill upon patient request if the prescrip... Start Date: 08/05/22 Stop Date: 09/02/22 Status: Ordered hydrOXYzine pamoate 50 mg oral capsule 1 capsule = 50 mg, By Mouth, 2 times a day, PRN Anxiety, TAKE ONE CAPSULE BY MOUTH TWO TIMES DAILY NEEDED FOR ANXIETY, # 28 capsule, 1 Refills, Maintenance, 08/05/22 8:32:00 EDT, [facility]apsule, [facility], Partial fill upon patient request... Start Date: 08/05/22 Stop Date: 09/02/22 Status: Ordered levothyroxine 0.05 mg oral tablet 1 tablet = 50 mcg, By Mouth, Daily, TAKE ONE TABLET BY MOUTH DAILY, # 14 tablet, 1 Refills, Maintenance, 08/05/22 8:30:00 EDT, Tablet, [facility], Partial fill upon patient request if the prescription is for a schedule II opioid drug., 1... Start Date: 08/05/22 Stop Date: 09/02/22 Status: Ordered LORazepam 1 mg oral tablet 1 tablet = 1 mg, By Mouth, 3 times a day, PRN for anxiety, for 3 days, # 9 tablet, 0 Refills, Acute08/18/22 20:34:00 EDT, 08/15/22 20:34:00 EDT, Tablet, [facility] #[id number], Partial fill upon patient request if the prescription is for a sched... Start Date: 08/15/22 Stop Date: 08/18/22 Status: Ordered omeprazole 40 mg oral enteric [...] BY MOUTH TWO TIMES DAILY, # 28 capsule, 1 Refills, Maintenance, 08/05/22 8:31:00 EDT, Capsule, [facility], Partial fill uponpatient request if the prescription is for a schedu... Start Date: 08/05/22 Stop Date: 09/02/22 Status: Ordered Protonix 20 mg [...] 1 Refills, Maintenance, 08/05/22 8:31:00 EDT, Capsule, [facility], Partial fill upon patient request if the prescription is for a sched... Start Date: 08/05/22 Stop Date: 09/02/22 Status: Ordered Tylenol with Codeine #3 Tablet (300mg/30mg) 1 tablet, Tablet, By Mouth, Once, STAT, 08/15/22 20:37:00 EDT, Stop date 08/15/22 20:37:00 EDT Start Date: 08/15/22 Stop Date: 08/15/22 Status: Completed Ventolin HFA 108 mcg/inh inhalation aerosol with [...] Range]: 1 2 3 Height 183 cm (08/15/22 6:46 PM) 183 cm (08/15/22 2:50 PM) Weight 122.7 kg (08/15/22 6:46 PM) 122.7 kg (08/15/22 2:50 PM) Oxygen Saturation [94-100 %] 95 % (08/15/22 6:46 PM) 92 % *L* (08/15/22 2:50 PM) 96 % (08/15/22 2:49 PM) Pulse Rate [55-90 bpm] 58 bpm (08/15/22 6:46 PM) 69 bpm (08/15/22 2:50 PM) 75 bpm (08/15/22 2:49 PM) Blood Pressure [90-138/55-84 mm Hg] 99/65mm Hg (08/15/22 6:46 PM) 101/53mm Hg (08/15/22 2:50 PM) Respiratory Rate [16-30 br/min] 23 br/min (08/15/22 8:44 PM) 18 br/min (08/15/22 6:46 PM) 17 br/min (08/15/22 2:50 PM) Temperature [96.8-100.4 DegF] 97.0 DegF (08/15/22 6:46 PM) 97.3 DegF (08/15/22 2:50 PM) Mode of Delivery (Oxygen) Room air (08/15/22 6:46 PM) Room air (08/15/22 2:50 PM) Blood pressure sites Arm, left (08/15/22 6:46 PM) Arm, left (08/15/22 2:50 PM) Temperature Route Temporal (08/15/22 6:46 PM) Temporal (08/15/22 2:50 PM) Dry Weight 122.7 kg (08/15/22 6:46 PM) 122.7 kg (08/15/22 2:50 PM) Weight Obtained Via Standing scale (08/15/22 2:50 PM) Dry Weight Obtained Via Standing scale (08/15/22 2:50 PM) Social History Social History Type Response [...] Code MRI Safety Implantable Status 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 [id number] Unknown [id number] Unknown 03/11/21 Unknown Unknown Active GS1 Patient Care team information Care Team Personnel Name: Konrad Gallegos RN Position: [facility] ED RN W/OE and Tasks Member Role: Primary Care Nurse Name: Niki Bright RN Position: [facility] RN Member Role: Primary Care Nurse Name: Fang Che Position: [facility] RN Member Role: Primary Care Nurse Name: Trisha Alamo RN Position: [facility] RN Supv Member Role: Primary Care Nurse Name: Rita Son NP Position: [facility] Associate Professional Member Role: Primary Care Nurse Address: Address: [address] [place] [id number]- Name: Sol Chanel RN Position: [facility] RN Member Role: Primary Care Nurse Name: Trisha Beltrán RN Position: [facility] RN Supv Member Role: Primary Care Nurse Name: Helene Pérez RN Position: [facility] RN Member Role: Primary Care Nurse Name: Brenda Cuba RN Position: [facility] HBO Wound Member Role: Primary Care Nurse Name: Kell Alonso RN Position: [facility] RN Member Role: Primary Care Nurse Name: Faraz Barriga RN Position: [facility] RN Member Role: Primary Care Nurse Name: Richa Clay LPN Position: [facility] RN Member Role: Primary Care Nurse Name: Екатерина Chacko RN Position: [facility] RN Member Role: Primary Care Nurse Name: Anna Lackey RN Position: [facility] RN Member Role: Primary Care Nurse Name: Elizabeth Ha RN Position: [facility] RN Member Role: Primary Care Nurse Name: Anna Oconnor RN Position: [facility] Hospital Track Car Operator Member Role: Primary Care Nurse Name: Kip Gonzalez RN Position: [facility] RN Member Role: Primary Care Nurse Address: Address: [address] [place] [address]- Name: Anisha Hinds RN Position: [facility] RN Member Role: Primary Care Nurse Name: Sunitha Gutierrez RN Position: [facility] RN Member Role: Primary Care Nurse Name: April Acuña RN Position: [facility] RN Member Role: Primary Care Nurse Name: Li Esquivel RN Position: [facility] Hospital Track Car Operator Member Role: Primary Care Nurse Name: Soto RAMIREZ MD, James C Position: [facility] Outreach Member Role: PCP Address: Address: [address] [place] [address]- [place] Name: Tunde White MD Position: [facility] Physician - Behavioral Health Member Role: Lifetime Consulting Physician Address: Address: [address] [place] [address]- [place] Name: Xavier Milan MD Position: [facility] ED Medicine MD Member Role: Admitting Physician Address: Address: [address] [facility] [place] [address]- [place] Name: Kell Thayer RN Position: [facility] ED RN W/OE and Tasks Member Role: Patient Care Provider Care Team Related Persons Name: FORREST TO Address: home [address] [place] [address] Name: MÓNICA CREWS
--- OUTSIDE RECORDS SUMMARY | 2022-10-14 11:49 | XMS_ITS | Continuity of Care Document ---
Author Name Unknown Organization [facility] Address [address] [address]- Care Team Providers Care Billing Auditor Name Role Phone Elijah Gibbons MD Primary Care Physician Encounter [facility] Date(s): 05/16/19 - 06/22/[address] [address]- [place] Attending Physician: Cassandra Call DO Admitting Physician: Cassandra Call DO Referring Physician: Cassandra Call DO Allergies, Adverse Reactions, Alerts Substance Reaction Severity Status Zoloft Active Thorazine Active traZODone Active ZyPREXA Active PROzac Active SEROquel Active Medications albuterol CFC free 90 mcg/inh inhalation aerosol 2, puffs, Inhalation, Every 4 hours, PRN, # 18 Gm, Refills 3, Tot. Refills 3, Maintenance, 02/13/1911:48:23 EST, Aerosol, Route to Pharmacy Electronically, [id number], [facility]/pharmacy #[id number] Start Date: 02/13/19 Status: Ordered [...] Refills, Maintenance, 02/28/19 12:11:45 EST, EC Tablet, [facility]/pharmacy #[id number], 183, cm, 02/28/19 11:39:08 EST, [...] Maintenance, 198:58:23 EST, Route to Pharmacy Electronically, [id number], [facility]/pharmacy #1111, 183, cm, 02/17/19 8:22:07 EST, Height, 127, kg... Start Date: 02/17/19 Status: Ordered fluticasone 50 mcg/inh nasal spray 2 sprays, Nares, Both, 2 times a day, # 9.9 mL, 0 Refills, Maintenance, 11/15/18 14:21:09 EDT, [place], 2 sprays Nares, Both 2 times a day Start Date: 11/15/18 Status: Ordered gabapentin 100 mg oral capsule 100 mg, 1, capsule, By Mouth, Daily at bedtime, # 30 capsule, Refills 0, Tot. Refills 0, Maintenance, 02/28/19 12:13:04 EST, Route to Pharmacy Electronically, [facility]/pharmacy #[id number], 183, cm, 02/28/19 11:39:08 EST, [...]
--- OUTSIDE RECORDS SUMMARY | 2022-10-14 11:49 | XMS_ITS | Continuity of Care Document ---
Author Name Unknown Organization [facility] Address [address] [place] [address]- Care Team Providers Care Hand Outside Cutter Name Role Phone Soto RAMIREZ MD, Bal Serrano Primary Care Physician Encounter [facility] Date(s): 09/02/20 - 09/03/[address] [address]- Discharge Disposition: A-D/C Home Attending Physician: Mansoor Swann MD Admitting Physician: Mansoor Swann MD Referring Physician: Not on Staff, Referring MD Allergies, Adverse Reactions, Alerts Substance Reaction Severity Status Zoloft Active Thorazine Active traZODone Active ZyPREXA Active Medications Acetaminophen Tablet 975 mg, Tablet, By Mouth, Once, STAT, 09/02/20 22:48:00 EDT, Stop date 09/02/20 22:48:00 EDT Start Date: 09/02/20 Stop Date: 09/02/20 Status: Completed Advair Diskus 250 mcg-50 mcg [...] 02/13/1911:48:23 EST, Aerosol, Route to Pharmacy Electronically, [id number], [facility]/pharmacy #[id number] Start Date: 02/13/19 Status: Ordered amitriptyline 100 mg oral tablet 1 tablet = 100 mg, By Mouth, Daily at bedtime, # 7 tablet, 3 Refills, Maintenance, 04/15/20 10:15:00 EST, Tablet, [facility] #[id number], Partial fill upon patient request if the prescription isfor a schedule II opioid drug., 183, cm, 04/15/20 0... Start Date: 04/15/20 Stop Date: 05/13/20 Status: Ordered amitriptyline 25 mg oral tablet 75 mg, 3, tablet, By Mouth, Daily, # 21 tablet, Refills 3, Tot. Refills 3, Maintenance, 04/13/20 14:55:00 EST, Route to Pharmacy Electronically, [facility] #[id number], Partial fill upon patientrequest if the prescription is for a schedule II op... Start Date: 04/13/20 Stop Date: 05/11/20 Status: Ordered baclofen 10 mg oral tablet 20 mg, 2, tablet, By Mouth, 2 times a day, # 56 tablet, Refills 1, Tot. Refills 1, Maintenance, 04/13/20 14:54:00 EST, Route to Pharmacy Electronically, [facility] #[id number], Partial fill uponpatient request if the prescription is for a schedu... Start Date: 04/13/20 Stop Date: 05/11/20 Status: Ordered busPIRone 15 mg oral tablet 1 tablet = 15 mg, By Mouth, 3 times a day, # 42 tablet, 1 Refills, Maintenance, 04/13/20 14:56:00 EST, Tablet, [facility] #[id number], Partial fill upon patient request if the prescription is for a schedule II opioid drug., 183, cm, 04/13/20 9:04... Start Date: 04/13/20 Stop Date: 05/11/20 Status: Ordered CeleBREX 100 mg oral capsule 1 capsule = 100 mg, By Mouth, 2 times a day, # 15 capsule, 0 Refills, Maintenance, 07/27/20 19:07:00 EDT, Capsule, [facility] #[id number], Partial fill upon patient request if the prescription is for a schedule II opioid drug., 184, cm, 07/27/20... Start Date: 07/27/20 Status: Ordered Compression Stockings See Instructions, # 2 each, Refills 2, Tot. Refills 2, Maintenance, surgical, knee length 20-30 mm Hg Dx: I83.899, 08/28/20 14:44:00 EDT, Supply Start Date: 08/28/20 Status: Ordered fluticasone 50 mcg/inh nasal spray 2 sprays, Nares, Both, 2 times a day, # 9.9 mL, 0 Refills, Maintenance, 11/15/18 14:21:09 EDT, [place], 2 sprays Nares, Both 2 times a day Start Date: 11/15/18 Status: Ordered furosemide 20 mg oral tablet 20 mg, 1, tablet, By Mouth, Daily, Refills 0, Maintenance, 05/28/20 15:49:00 EDT, Partial fill uponpatient request if the prescription is for a schedule II opioid drug. Start Date: 05/28/20 Status: Ordered Motrin Tablet 600 mg, Tablet, By Mouth, Once, STAT, 09/02/20 22:48:00 EDT, Stop date 09/02/20 22:48:00 EDT Start Date: 09/02/20 Stop Date: 09/02/20 Status: Completed nicotine 14 mg/24 hr transdermal film, extended release 1 patch, Topically, Daily, # 30 patch, 0 Refills, Acute 05/28/21 9:00:00 EDT, 05/28/20 15:55:00 EDT, Patch, [facility] #[id number], Partial fill upon patient request if the prescription is for aschedule II opioid drug., 1 patch Topically Daily,... Start Date: 05/28/20 Stop Date: 05/28/21 Status: Ordered propranolol 40 mg oral tablet 40 mg, 1, tablet, By Mouth, 2 times a day, # 28 tablet, Refills 1, Tot. Refills 1, Maintenance, 04/13/20 14:56:00 EST, Route to Pharmacy Electronically, [facility] #[id number], Partial fill uponpatient request if the prescription [...] 04/13/20 14:57:00 EST, Route to Pharmacy Electronically, [facility] #[id number], Partial fill upon patient request if the [...] 1 Refills, Maintenance, 04/13/20 14:55:00 EST, Tablet, [facility] #[id number], Partial fill upon patient request if the prescription is for a schedule II opioid drug., 183, cm, 04/13/20 9:0... Start Date: 04/13/20 Stop Date: 05/11/20 Status: Ordered traMADol 50 mg oral tablet 1 tablet = 50 mg, By Mouth, Every 12 hours, PRN for pain, # 10 tablet, 0 Refills, Maintenance, 07/27/20 19:15:00 EDT, Tablet, [facility] #[id number], Partial fill upon patient request if the [...] to oldest [Reference Range]: 1 2 3 4 Height 183 cm (09/03/20 4:24 AM) 183 cm (09/02/20 8:37 PM) 183 cm (09/02/20 7:31 PM) Weight 127 kg (09/03/20 4:24 AM) 127 kg (09/02/20 8:37 PM) 127 kg (09/02/20 7:31 PM) Oxygen Saturation [94-100 %] 96 % (09/03/20 11:04 AM) 95 % (09/03/20 10:20 AM) 94 % (09/03/20 4:24 AM) Pulse Rate [55-90 bpm] 77 bpm (09/03/20 11:04 AM) 86 bpm (09/03/20 4:24 AM) 87 bpm (09/02/20 8:37 PM) Body Mass Index [18.5-24.99] 37.92 *>HHI* (09/03/20 4:24 AM) 37.92 *>HHI* (09/02/20 8:37 PM) 37.92 *>HHI* (09/02/20 7:31 PM) Blood Pressure [90-138/55-84 mm Hg] 116/68mm Hg (09/03/20 11:04 AM) 105/70mm Hg (09/03/20 4:24 AM) 136/89mm Hg (09/02/20 8:37 PM) Respiratory Rate [16-30 br/min] 16 br/min (09/03/20 11:04 AM) 15 br/min *L* (09/03/20 4:24 AM) 17 br/min (09/03/20 12:06 AM) 16 br/min (09/03/20 12:06 AM) Temperature [96.8-100.4 DegF] 98.6 DegF (09/02/20 4:54 PM) Mode of Delivery (Oxygen) Room air (09/03/20 11:04 AM) Room air 1 (09/03/20 10:20 AM) Room air (09/03/20 4:24 AM) Blood pressure sites Arm, left (09/03/20 11:04 AM) Arm, left (09/03/20 4:24 AM) Arm, left (09/02/20 8:37 PM) Temperature Route Temporal (09/02/20 4:54 PM) Dry Weight 127 kg (09/03/20 4:24 AM) 127 kg (09/02/20 8:37 PM) 127 kg (09/02/20 7:31 PM) 1Result Comment: respiratory notified for up draft administration. Social History Social History Type Response Tobacco Use: 1PPD. Sex
--- OUTSIDE RECORDS SUMMARY | 2022-10-14 11:49 | XMS_ITS | Continuity of Care Document ---
Author Name Unknown Organization [facility] Address [address] [place] [address]- Care Team Providers Care Band Edger Name Role Phone Soto RAMIREZ MD, Bal Serraon Primary Care Physician ( [phone] [place]counter [facility] [id number] Date(s): 08/28/20 - 09/04/20 [facility] [address] [place] [address]- Attending Physician: Darren Diaz MD Admitting Physician: Darren Diaz MD Referring Physician: Isaiah Lang MD Allergies, Adverse Reactions, Alerts Substance Reaction [...] 02/13/1911:48:23 EST, Aerosol, Route to Pharmacy Electronically, [id number], [facility]/pharmacy #1111 Start Date: 02/13/19 Status: Ordered amitriptyline 100 mg oral tablet 1 tablet = 100 mg, By Mouth, Daily at bedtime, # 7 tablet, 3 Refills, Maintenance, 04/15/20 10:15:00 EST, Tablet, [facility] #[id number], Partial fill upon patient request if the prescription isfor a schedule II opioid drug., 183, cm, 04/15/20 0... Start Date: 04/15/20 Stop Date: 05/13/20 Status: Ordered amitriptyline 25 mg oral tablet 75 mg, 3, tablet, By Mouth, Daily, # 21 tablet, Refills 3, Tot. Refills 3, Maintenance, 04/13/20 14:55:00 EST, Route to Pharmacy Electronically, [facility] #[id number], Partial fill upon patientrequest if the prescription is for a schedule II op... Start Date: 04/13/20 Stop Date: 05/11/20 Status: Ordered baclofen 10 mg oral tablet 20 mg, 2, tablet, By Mouth, 2 times a day, # 56 tablet, Refills 1, Tot. Refills 1, Maintenance, 04/13/20 14:54:00 EST, Route to Pharmacy Electronically, [facility] #[id number], Partial fill uponpatient request if the prescription is for a schedu... Start Date: 04/13/20 Stop Date: 05/11/20 Status: Ordered busPIRone 15 mg oral tablet 1 tablet = 15 mg, By Mouth, 3 times a day, # 42 tablet, 1 Refills, Maintenance, 04/13/20 14:56:00 EST, Tablet, [facility] #[id number], Partial fill upon patient request if the prescription is for a schedule II opioid drug., 183, cm, 04/13/20 9:04... Start Date: 04/13/20 Stop Date: 05/11/20 Status: Ordered CeleBREX 100 mg oral capsule 1 capsule = 100 mg, By Mouth, 2 times a day, # 15 capsule, 0 Refills, Maintenance, 07/27/20 19:07:00 EDT, Capsule, [facility] #[id number], Partial fill upon patient request if the [...] mL, 0 Refills, Maintenance, 11/15/18 14:21:09 EDT, [place], 2 sprays Nares, Both 2 times a [...] 05/28/21 9:00:00 EDT, 05/28/20 15:55:00 EDT, Patch, [facility] #[id number], Partial fill upon patient request if the prescription is for aschedule II opioid drug., 1 patch Topically Daily,... Start Date: 05/28/20 Stop Date: 05/28/21 Status: Ordered propranolol 40 mg oral tablet 40 mg, 1, tablet, By Mouth, 2 times a day, # 28 tablet, Refills 1, Tot. Refills 1, Maintenance, 04/13/20 14:56:00 EST, Route to Pharmacy Electronically, [facility] #[id number], Partial fill uponpatient request if the prescription [...] 04/13/20 14:57:00 EST, Route to Pharmacy Electronically, [facility] #[id number], Partial fill upon patient request if the [...] 1 Refills, Maintenance, 04/13/20 14:55:00 EST, Tablet, [facility] #[id number], Partial fill upon patient request if the prescription is for a schedule II opioid drug., 183, cm, 04/13/20 9:0... Start Date: 04/13/20 Stop Date: 05/11/20 Status: Ordered traMADol 50 mg oral tablet 1 tablet = 50 mg, By Mouth, Every 12 hours, PRN for pain, # 10 tablet, 0 Refills, Maintenance, 07/27/20 19:15:00 EDT, Tablet, [facility] #[id number], Partial fill upon patient request if the [...] recent to oldest [Reference Range]: 1 Height 184 cm (08/28/20 2:00 PM) Weight 138 kg (08/28/20 2:00 PM) Oxygen Saturation [94-100 %] 97 % (08/28/20 2:00 PM) Pulse Rate [55-90 bpm] 89 bpm (08/28/20 2:00 PM) Body Mass Index [18.5-24.99] 40.76 *>HHI* (08/28/20 2:00 PM) Blood Pressure [90-138/55-84 mm Hg] 138/ 82mm Hg (08/28/20 2:00 PM) Blood pressure sites Arm, left (08/28/20 2:00 PM) Weight Obtained Via Patient/family state d (08/28/20 2:00 PM) Social History Social History Type Response Tobacco Use: 1PPD. Sex
--- OUTSIDE RECORDS SUMMARY | 2022-10-14 11:49 | XMS_ITS | Continuity of Care Document ---
Author Name Unknown Organization [facility] ter Address [address] [place] [id number] Care Team Providers Care Corporate Counselor Name Role Phone Not on Staff, PCP Primary Care Physician Unavail able [place] [facility]27[place] - 08/05/[address] [id number]- Encounter Diagnosis Anemia(Final) - 07/30/22 Discharge Disposition: A-D/C Home Attending Physician: Latoya Nicole MD Admitting Physician: Latoya Nicole MD Referring Physician: Not on Staff, Referring MD Allergies, Adverse Reactions, Alerts Substance Reaction Severity Status Zoloft Active traZODone Active ZyPREXA Active Immunizations Given and Recorded Vaccine Date Status Refusal Reason tetanus/diphtheria/pertussis, acel(Tdap) 04/09/22 Recorded tetanus/diphtheria/pertussis, acel(Tdap) 05/18/18 Recorded tetanus/diphtheria/pertussis, acel(Tdap) 12/19/16 Recorded [id number] 12y+ bivalent booster vax 02/11/22 Recorded SARS-CoV-2 [...] 1 Refills, Maintenance, 08/05/22 8:26:00 EDT, Tablet, [facility], Partial fill upon patient requestif the prescription is for a schedule II opioid dafne... Start Date: 08/05/22 Stop Date: 09/02/22 Status: Ordered Ativan 1 mg oral tablet 1 tablet = 1 mg, By Mouth, 3 times a day, PRN for anxiety, TAKE ONE TABLET BY MOUTH UP TO THREE TIMES DAILY NEEDED FOR ANXIETY FOR 3 DAYS, THEN TWO TIMES DAILY NEEDED FOR 3 DAYS, THEN ONE TIME DAILY NEEDED FOR 3 DAYS THEN STOP, # 18 tablet, 0... Start Date: 08/05/22 Stop Date: 08/14/22 Status: Ordered benztropine 1 mg oral tablet 1 mg, 1, tablet, By Mouth, 2 times a day, TAKE ONE TABLET BY MOUTH TWO TIMES DAILY, # 28 tablet, Refills 1, Tot. Refills 1, Maintenance, 08/05/22 9:34:00 EDT, Route to Pharmacy Electronically, [facility], Partial fill upon patient reques... Start Date: 08/05/22 Stop Date: 09/02/22 Status: Ordered busPIRone 30 mg oral tablet 1 tablet = 30 mg, By Mouth, 2 times a day, TAKE ONE TABLET BY MOUTH TWO TIMES DAILY, # 28 tablet, 1Refills, Maintenance, 08/05/22 8:27:00 EDT, Tablet, [facility], Partial fill upon patient request if the prescription is for a schedule I... Start Date: 08/05/22 Stop Date: 09/02/22 Status: Ordered chlorproMAZINE 50 mg oral tablet See Instructions, TAKE ONE TABLET (50MG) BY MOUTH DAILY AT 9AM, 3PM AND TWO TABLETS (100MG) BY MOUTH DAILY AT BEDTIME, # 56 tablet, 1 Refills, Maintenance, 08/05/22 9:34:00 EDT, Tablet, [facility], Partial fill upon patient request if th... Start Date: 08/05/22 Status: Ordered cloNIDine 0.2 mg oral tablet 0.2 mg, 1, tablet, By Mouth, 2 times a day, TAKE ONE TABLET BY MOUTH TWO TIMES DAILY, # 28 tablet, Refills 1, Tot. Refills 1, Maintenance, 08/05/22 8:28:00 EDT, Route to Pharmacy Electronically, [facility], Partial fill upon patient requ... Start Date: 08/05/22 Stop Date: 09/02/22 Status: Ordered divalproex sodium 500 mg oral enteric coated tablet 2 tablets, By Mouth, 2 times a day, TAKE TWO TABLETS (1000MG) BY MOUTH TWO TIMES DAILY, # 56 tablet, 1 Refills, Maintenance, 08/05/22 9:36:00 EDT, Tablet, [facility], Partial fill upon patient request if the prescription is for a schedul... Start Date: 08/05/22 Stop Date: 09/02/22 Status: Ordered docusate sodium 100 mg oral capsule 100 mg, 1, capsule, By Mouth, 2 times a day, TAKE ONE CAPSULE BY MOUTH TWO TIMES DAILY, # 60 capsule, Refills 0, Tot. Refills 0, Maintenance, 08/05/22 8:29:00 EDT, Route to Pharmacy Electronically, [facility], Partial fill upon patient r... Start Date: 08/05/22 Status: Ordered escitalopram 10 mg oral tablet 1 tablet = 10 mg, By Mouth, Daily, TAKE ONE TABLET BY MOUTH DAILY, # 14 tablet, 1 Refills, Maintenance, 08/05/22 8:29:00 EDT, Tablet, [facility], Partial fill upon patient request if the prescription is for a schedule II opioid drug., 18... Start Date: 08/05/22 Stop Date: 09/02/22 Status: Ordered fluticasone 50 mcg/inh nasal spray 2 sprays, Nares, Both, Daily in AM, 0 Refills, Maintenance, 03/10/22 8:17:00 EST, [facility], Partial fill upon patient request if the prescription is for a schedule II opioid drug. Start Date: 03/10/22 Status: Ordered furosemide 80 mg oral tablet 80 mg, 1, tablet, By Mouth, Daily, TAKE ONE TABLET BY MOUTH DAILY, # 14 tablet, Refills 1, Tot. Refills 1, Maintenance, 08/05/22 8:30:00 EDT, Route to Pharmacy Electronically, [facility], Partial fill upon patient request if the prescrip... Start Date: 08/05/22 Stop Date: 09/02/22 Status: Ordered hydrOXYzine pamoate 50 mg oral capsule 1 capsule = 50 mg, By Mouth, 2 times a day, PRN Anxiety, TAKE ONE CAPSULE BY MOUTH TWO TIMES DAILY NEEDED FOR ANXIETY, # 28 capsule, 1 Refills, Maintenance, 08/05/22 8:32:00 EDT, [facility] Partial fill upon patient request... Start Date: 08/05/22 Stop Date: 09/02/22 Status: Ordered indomethacin 50 mg oral capsule 1 capsule = 50 mg, By Mouth, 3 times a day, PRN for arthritis, # 21 capsule, 0 Refills, Maintenance, 07/15/22 14:29:00 EDT, Capsule, [id number], Partial fill upon patient request if the prescription is for a schedule II opioid drug.,... Start Date: 07/15/22 Stop Date: 07/22/22 Status: Ordered levothyroxine 0.05 mg oral tablet 1 tablet = 50 mcg, By Mouth, Daily, TAKE ONE TABLET BY MOUTH DAILY, # 14 tablet, 1 Refills, Maintenance, 08/05/22 8:30:00 EDT, Tablet, [facility], Partial fill upon patient request if the prescription is for a schedule II opioid drug., 1... Start Date: 08/05/22 Stop Date: 09/02/22 Status: Ordered omeprazole 40 mg oral enteric [...] 1 Refills, Maintenance, 08/05/22 8:31:00 EDT, Capsule, [facility], Partial fill uponpatient request if [...] opioid drug. Start Date: 03/11/22 Status: Ordered tiZANidine 6 mg oral capsule 1 capsule = 6 mg, By Mouth, 3 times a day, TAKE ONE CAPSULE BY MOUTH THREE TIMES DAILY, # 42 capsule, 1 Refills, Maintenance, 08/05/22 8:31:00 EDT, Capsule, [facility], Partial fill upon patient request if the prescription is for a sched... Start Date: 08/05/22 Stop Date: 09/02/22 Status: Ordered Tylenol 325 mg oral tablet 650 mg, Tablet, By Mouth, Every 6 hours, PRN for Pain , Mild, Routine, 08/01/22 23:41:00 EDT Start Date: 08/01/22 Stop Date: 08/05/22 Status: Discontinued Ventolin HFA 108 mcg/inh inhalation aerosol with [...] to oldest [Reference Range]: 1 2 3 Oxygen Saturation [94-100 %] 94 % (08/05/22 6:34 AM) 99 % (08/04/22 9:45 PM) 96 % (08/04/22 2:00 PM) Pulse Rate [55-90 bpm] 80 bpm (08/05/22 6:34 AM) 74 bpm (08/04/22 9:45 PM) 109 bpm *H* (08/04/22 2:00 PM) Blood Pressure [90-138/55-84 mm Hg] 116/72mm Hg (08/05/22 6:34 AM) 98/61mm Hg (08/04/22 9:45 PM) 114/79mm Hg (08/04/22 2:00 PM) Respiratory Rate [16-30 br/min] 17 br/min (08/05/22 6:34 AM) 18 br/min (08/04/22 9:45 PM) 20 br/min (08/04/22 3:17 PM) Temperature [96.8-100.4 DegF] 98.2 DegF (08/05/22 6:34 AM) 97.6 DegF (08/04/22 9:45 PM) 98.2 DegF (08/04/22 2:00 PM) Mode of Delivery (Oxygen) Room air (08/05/22 6:34 AM) Room air (08/04/22 9:45 PM) Room air (08/04/22 2:00 PM) Blood pressure sites Arm, right (08/05/22 6:34 AM) Arm, left (08/04/22 9:45 PM) Arm, right (08/04/22 2:00 PM) Temperature Route Oral (08/05/22 6:34 AM) Oral (08/04/22 9:45 PM) Oral (08/04/22 2:00 PM) Social History Social History Type [...] Code MRI Safety Implantable Status 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 [id number] Unknown [id number] Unknown 03/11/21 Unknown Unknown Active GS1 EKG study * Event Display: EKG Authored Date: * Event Display: ECG 12-Lead Authored Date: Please click on pdf link to open report * Event Display: ECG 12-Lead Authored Date: Ventricular Rate: 87 BPM Atrial Rate: 87 BPM P-R Interval: 152 ms QRS Duration: 88 ms Q-T Interval: 376 ms QTC Calculation(Bazett): 452 ms P Swayz[place]: 65 degrees R Swayz[place]: 2 degrees T Swayz[place]: 40 degrees Normal sinus rhythm Minimal voltage criteria for LVH, may be normal variant ( R in aVL ) Borderline ECG When compared with ECG of 21-JUL-2022 06:30, No significant change was found Conf[facility] by [id number] on 08/05/2022 12:53:27 PM [place]: [facility] * Ava Castelan DO: MODIFY, MODIFY, PERFORM Event Display: [facility] Authored Date: [id number] Patient: ??LAURI OT ? Age:??42 Years?Sex:??Male?:??1980?? Subjective Chief complaint:? I'm a little anxious, am I going to be able to leave today? ?? Patient seen, chart reviewed, and discussed with treatment team.? Interval History: No acute overnight events. Patient??was seen this morning prior to discharge. ??He reports feeling somewhat anxious??about the possibility of going home, apparently having been toldyesterday that??he is can be discharged. ??At this point in time, he denies any symptoms concerningfor??acute depressive, manic, psychotic, or PTSD illness. ??He adamantly denies any suicidal ideation, homicidal ideation or desires for self-injurious behaviors.?He is in agreement that the medications have been most helpful for??stabilizing his mood and??shares??his optimism??upon its continuation. ??He will continue to follow-up with his outpatient mental health care providers through [facility] or community mental health clinics. Denies any adverse effects on current medication regimen. Reports good appetite and eating meals regularly. ??Sleeping well overnight, reporting no sleep disturbances, daytime sedation, or fatigue.?Able to make needs known.? Crisis team has spent an inordinate period of time discussing safety and disposition with his mother over the last 48 hours. Lauri is felt to be back at his baseline. Mother has been made aware of plan for discharge home and team is cautiously optimistic with durable discharge with medications on hand. ?? Review of Systems Pertinent positives as listed above in HPI. ??Otherwise, remainder of review of systems negative. Objective ? Vital Signs?? Temperature: 98.2 DegF (08/05/22 06:34:00) Temperature Route: Oral (08/05/22 06:34:00) Pulse Rate: 80 bpm (08/05/22 06:34:00) Respiratory Rate: 17 br/min (08/05/22 06:34:00) Systolic Blood Pressure: 116 mm Hg (08/05/22 06:34:00) Diastolic Blood Pressure: 72 mm Hg (08/05/22 06:34:00) Blood pressure sites: Arm, right (08/05/22 06:34:00) Mean Arterial Pressure: 87 mm Hg (08/05/22 06:34:00) Pulse Pressure: 44 mm Hg (08/05/22 06:34:00) Oxygen Saturation: 94 % (08/05/22 06:34:00) Mode of Delivery (Oxygen): Room air (08/05/22 06:34:00) ? Physical Exam Mental Status Exam Appearance: Hospital gown, disheveled Eye contact: Within normal limits Attitude: Cooperative Motor Activity:??Calm; absent of tics, tremors, psychomotor agitation, psychomotor slowing Mood: Anxious Affect: Congruent, restricted Speech: Spontaneous, normal rate/tone/prosody Perception: Denies AVH;??does not appear internally preoccupied nor??overtly responding to internalstimuli Orientation: Intact to person and place Memory: Grossly intact, not formally tested Thought Process: Goal-directed Thought Content: Hopeful, future-oriented, relevant to encounter. Advocating for discharge home. Medication Adherence: Fair Reliability: Limited historian Insight: Limited Judgment: Limited Impulse control: Limited Suicidality/Self-destructive Behavior: None Homicidality/Violence: None Muscle strength/tone: Antigravity. No rigidity noted. Moving all four extremities spontaneously. Ambulating with slowed and steady gait. ?? _ Inpatient Medications Medications (28) Active SCHEDULED: (19) Aripiprazole 15 mg Tablet (ARIPiprazole 15 mg oral tablet) ??30 mg, By Mouth, Daily Bacitracin Topical 0.9 GM Ointment (UD) (Bacitracin Topical Oint) ??1 application, Topically, 4 times a day Benztropine 1 mg Tablet (benztropine 1 mg oral tablet) ??1 mg, By Mouth, 2 times a day Breo Ellipta 200 mcg / 25 mcg Inhaler (Breo Ellipta 200 mcg-25 mcg Inhaler) ??1 puffs, Inhalation, Daily buprenorphine-naloxone 8 mg-2 mg Film (Suboxone 8 mg-2 mg Sublingual Film) ??1 film, Sublingual, 2 times a day BusPIRone 10 mg Tablet (busPIRone 10 mg oral tablet) ??30 mg, By Mouth, 2 times a day ChlorproMAZINE 50 mg Tablet (chlorproMAZINE 50 mg oral tablet) ??100 mg, By Mouth, Daily at bedtime ChlorproMAZINE 50 mg Tablet (chlorproMAZINE 50 mg oral tablet) ??50 mg, By Mouth, 2 times a day Clonidine 0.1 mg Tablet (cloNIDine 0.1 mg oral tablet) ??0.2 mg, By Mouth, 2 times a day Divalproex 500 mg Tablet (Depakote Tablet) ??1,000 mg, By Mouth, 2 times a day Docusate Sodium 100 mg Capsule (docusate sodium 100 mg oral capsule) ??100 mg 1 capsule, By Mouth, 2 times a day Escitalopram 10 mg Tablet (escitalopram 10 mg oral tablet) ??10 mg, By Mouth, Daily Fluticasone Propionate 50mcg/inh Nasal [place] (fluticasone 50 mcg/inh nasal spray) ??50 mcg 1 sprays, Nares, Both, 2 times a day Furosemide 80 mg Tablet (furosemide 40 mg oral tablet) ??80 mg, By Mouth, Daily Levothyroxine 25 mcg Tablet (levothyroxine 0.025 mg oral tablet) ??50 mcg, By Mouth, Daily Montelukast 10 mg Tablet (montelukast 10 mg oral tablet) ??10 mg, By Mouth, Daily at bedtime Pantoprazole 20 mg EC Tablet (pantoprazole 20 mg oral delayed release tablet) ??20 mg, By Mouth, Daily Pregabalin 50 mg Capsule (pregabalin 50 mg oral capsule) ??200 mg, By Mouth, 2 times a day Tizanidine 4 mg Tablet (tiZANidine 4 mg oral tablet) ??6 mg, By Mouth, 3 times a day CONTINUOUS: (0) PRN: (9) Acetaminophen 325 mg Tablet (Tylenol 325 mg oral tablet) ??650 mg, By Mouth, Every 6 hours Al hydroxide/Mg hydroxide/simethicone 200 mg-200 mg-20 mg/5 mL Susp UD (Maalox Plus Liquid) ??30 mL, By Mouth, Every 8 hours Albuterol 90mcg/Inhalation Inhaler HFA (albuterol CFC free 90 mcg/inh inhalation aerosol) ??180 mcg2 puffs, Inhalation, Every 4 hours ChlorproMAZINE 25 mg/mL Inj (ChlorproMAZINE Inj) ??50 mg 2 mL, Intramuscular, Every 6 hours ChlorproMAZINE 50 mg Tablet (chlorproMAZINE 50 mg oral tablet) ??50 mg, By Mouth, Every 6 hours HydrOXYzine Pamoate 25mg Capsule (HydrOXYzine Pamoate Capsule) ??50 mg, By Mouth, Every 6 hours Ibuprofen 400 mg Tablet (Ibuprofen Tablet) ??400 mg, By Mouth, Every 8 hours Lorazepam 2 mg Inj Syringe (LORazepam Inj) ??1 mg, Intramuscular, Every 6 hours Lorazepam 2 mg Tablet (LORazepam 2 mg oral tablet) ??2 mg, By Mouth, Every 6 hours ? Results Recent Labs BLOOD COUNT & DIFF WBC 7.8 k/mm3 ()?? 08/04/2022 16:01 RBC 4.83 m/mm3 ()?? 08/04/2022 16:01 Hgb 11.2 Gm/dL (Low)?? 08/04/2022 16:01 Hct 37.9 % (Low)?? 08/04/2022 16:01 MCV 78.5 femtoliters (Low)?? 08/04/2022 16:01 MCH 23.2 pg (Low)?? 08/04/2022 16:01 MCHC 29.6 g/dL (Low)?? 08/04/2022 16:01 Platelet Count 215 k/mm3 ()?? 08/04/2022 16:01 RDW-SD 57.6 femtoliters (High)?? 08/04/2022 16:01 MPV 9.7 femtoliters ()?? 08/04/2022 16:01 Nucleated RBC (Automated) 0.0 #/100 WBC'S ()?? 08/04/2022 16:01 Abs. NRBC 0.0 k/mm3 ()?? 08/04/2022 16:01 ?? CHEM GENERAL Protein, Total 8.1 Gm/dL ()?? 08/04/2022 16:01 Albumin 4.4 Gm/dL ()?? 08/04/2022 16:01 Alkaline Phosphatase 144 units/L (High)?? 08/04/2022 16:01 AST (SGOT) 25 units/L ()?? 08/04/2022 16:01 ALT (SGPT) 16 units/L ()?? 08/04/2022 16:01 Bilirubin, Total 0.2 mg/dL ()?? 08/04/2022 16:01 Bilirubin, Direct <0.2 mg/dL ()?? 08/04/2022 16:01 Bilirubin, Indirect Direct bilirubin is less than the measureable limit. Therefore, indirect mg/dL ()?? 08/04/2022 16:01 ?? TOXICOLOGY/TDM Valproic Level 76.9 mg/L ()?? 08/04/2022 16:01 ? Assessment/Plan Assessment:?In brief, this is a 42-year-old male with past history of asthma, chronic pain syndrome, GERD, hypothyroidism, alcohol use disorder, cannabis use disorder, bipolar disorder,??PTSD, ADHD, antisocial personality disorder, and multiple inpatient psychiatric hospitalizations, who [facility] 07/[facility] via law enforcement responding to concern for alcohol intoxication in the community??within hours after discharge from [facility] with a??plan??for voluntary??admission to respite. At this point in time, the patient has been medically cleared and referred to??[facility] for evaluation and assistance with potential psychiatric disposition, albeit currently pending bed search for [facility]. The emergency psychiatry service was consulted for assistance with medication management. There is concern for primary bipolar affective??illness??with psychotic features as evident by??affective lability,??impulse control deficits with psychomotor agitation, persecutory delusions, auditory and visual hallucinations,??and suicidal ideation in the setting of nonadherence to medications prescribed for a previously established diagnosis of bipolar I disorder with psychotic features.??Patient's??current symptoms??may represent a mixed or depressive episode, and diagnosticclarification is deferred to the next/longitudinal level of care. In the interim, will optimize current psychotropic regimen for affective lability and reconcile with last known outpatient regimen. Explained to the patient the differential diagnoses, treatment options, risks of untreated illness, and risks/benefits of treatment. See below for??detailed??treatment recommendations. ?? 07/29/22:?? Although valproic acid non-trough serum level is subtherapeutic at 56.6, patient appears oversedated on current regimen, likely secondary to a combination of higher scheduled chlorpromazine doses and frequent requirement of chemical restraint for agitation. Will decrease PRN lorazepam from 2 mg to 1 mg PO/IM Q6H PRN agitation, still to be given with chlorpromazine, and continue all other scheduled psychotropic meds unchanged. ?? 07/30/22: Valproic acid serum level subtherapeutic at 36.6. Oversedation has improved with reduction of PRN lorazepam dose, although patient is reporting akathisia likely secondary to chlorpromazine titration. Will titrate valproic acid for mood stabilization, decrease chlorpromazine dose and increase benztropine for neuroleptic side effects. Patient remains bed search for [facility]. ?? 07/31/22: Ongoing concerns for acute psychosis, paranoia and persecutory delusions. Remains a bed search for [facility]. Will plan for repeat labs 08/02 for drug monitoring and need for further titration.Otherwise, no medication changes today. ??Additionally, have passed along concerns of lower extremity swelling to ED primary team. ?? 08/01/22:??Patient has been voluntarily received IM formulations of chlorpromazine (x5 36 hours), preferring this route of administration due to reported akathisia associated with PO formulation. Patient has not required involuntary restraints in the past 24 hours. Alternatives (olanzapine and halop eridol) have been even less well tolerated historically per patient report. Benztropine titration from 1 mg QD to BID on 07/30/22 may have yet to yield appreciable benefit. Given frequency of agitation PRN utilization, will advance valproic acid level check by one day, check tomorrow AM 08/02/22 to consider further optimization for mood stabilization. ?? 08/05/22: Stable clinical presentation. Initial plan had been for discharge yesterday, but another night of observation has yielded no evidence of acute psychosis nor mi. Medication adherent. No agitation, restraints or seclusions. Based on provider assessments from crisis clinicians who have worked with the patient for years, Lauri appears to be at his baseline. No acute nor imminent safety concerns necessitating [facility]. No longer meeting criteria for a section 12. Will plan for discharge home with follow-up in community outpatient clinics. New prescriptions sent by this parts data writer for 2 weeks, 1 refill until he is able to establish care with new providers. ? Diagnoses Bipolar I disorder, current episode mixed, severe,??with psychotic features (F31.64) resolved Suicidal ideation ??(R45.851) resolved Agitation ??(R45.1) improving Persecutory delusion ??(F22) Visual hallucination ??(R44.1) Nonadherence to medication ??(Z91.14) resolved ? Recommendations: -No SI/HI/AVH; no acute nor imminent safety concerns necessitating [facility] at this point in time. Cautiously discharging patient home with prescriptions for 2 weeks and 1 refill. He will f/u with new outpatient providers in the community with resources provided by our crisis team at discharge. -Continue chlorpromazine 50 mg PO BID (QAM + Q3PM) and 100 mg PO QHS for mood stabilization and psychosis to minimize akathisia. -Continue valproic acid 1000 mg PO BID for mood stabilization. Last level 76.9 on 08/04/22 (not a trough). -Continue aripiprazole 30 mg PO QD for mood stabilization and psychosis. -Continue benztropine 1 mg PO BID for akathisia and other neuroleptic side effect prophylaxis. -Continue buspirone 30 mg PO BID for anxiety. -Clonidine 0.2 mg PO BID for anxiety. Hold for SBP<90 or DBP<60. -Continue escitalopram 10 mg PO QD for mood stabilization. -Continue pregabalin 200 mg PO BID for anxiety. -Continue hydroxyzine 50 mg PO Q6H PRN anxiety. -Would note that these medications are only being utilized in the ER while the patient awaits placement. Long-term need for these medications will need to be assessed by the patient's future treatingpsychiatrist. ? Please feel free to contact the Psychiatry consult service (page [phone]) with any questions or concerns.? Recommendations??discussed in person during team huddle with Dr. Latoya Nicole. ?? Ava Castelan D.O.?? Community Pharmacist, Emergency Psychiatry Services Division of Consultation-Liaison Psychiatry Department of Psychiatry [facility] ?? * Ava Castelan DO: PERFORM Event Display: Progress Note Hospital Authored Date: [id number] Patient called ED nursing regarding a prescription for Ativan. This parts data writer reviewed the chart, notable for receipt of Ativan up to 6 mg daily as a PRN for severe agitation as recently as yesterday 08/04/22. Given that the patient is planning to follow-up with outpatient mental healthcare providers,will provide a BRIEF prescription for Ativan taper over the next 9 days. Prescription sent to [facility] in [place] for Ativan 1 mg PO three times daily PRN??severe anxiety/agitation with the following instructions:??TAKE ONE TABLET BY MOUTH UP TO THREE TIMES DAILY NEEDED FOR ANXIETY FOR 3 DAYS,THEN?? UP TO TWO TIMES DAILY NEEDED FOR ANXIETY FOR 3 DAYS, THEN ONE TIME DAILY NEEDED FOR ANX IETY FOR??3 DAYS THEN STOP. Any further prescriptions for this controlled medication will need to be through long-term outpatient provider. He did not come into the hospital on this controlled benzodiazepine medication and only being discharged on it for short period of time due to the POTENTIAL for possible benzodiazepine withdrawal. * Prior Payam BURNHAM: MODIFY, PERFORM Event Display: Progress Note Hospital Authored Date: Patient: ??LAURI TO ? Age:??42 Years?Sex:??Male?:??1980?? Subjective Chief complaint:? I need more pain medication ?? Patient seen, chart reviewed, and discussed with treatment team.? Interval History:??Patient has voluntarily??received chlorpromazine 50 mg IM x5 for agitation within the past??36 hours, notable preferring this route of administration. On??interview, patient continues to perseverate on obtaining??analgesic medications for knee pain, I just need a T2 or a T3. ??Co mplains of??transient feeling of restlessness following??use of PO??chlorpromazine but notes that??alternative formulations (olanzapine, haloperidol) have been even more poorly tolerated in the past,and states that IM chlorpromazine does not seem to cause the side effects.??Denies any other adverse effects on current medication regimen. Reports good appetite and eating meals regularly. ??Sleeping well overnight, reporting no sleep disturbances, daytime sedation, or fatigue. ??ADLs??appear attentive without incident. ??Able to make needs known.??Patient denies any additional??symptoms concerning for anxiety, depression, mi, psychosis or PTSD. Patient denies any suicidal ideation, homicidal ideation or desires for self-injurious behaviors.? Review of Systems Pertinent positives as listed above in HPI.??Otherwise, remainder of review of systems negative. Objective ? Vital Signs?? Temperature: 97.4 DegF (08/01/22 07:52:00) Temperature Route: Oral (08/01/22 07:52:00) Pulse Rate: 84 bpm (08/01/22 07:52:00) Respiratory Rate: 16 br/min (08/01/22 07:52:00) Vented: No (08/01/22 05:00:00) Systolic Blood Pressure: 109 mm Hg (08/01/22 07:52:00) Diastolic Blood Pressure: 59 mm Hg (08/01/22 07:52:00) Blood pressure sites: Arm, left (08/01/22 07:52:00) Mean Arterial Pressure: 100 mm Hg (08/01/22 06:00:00) Pulse Pressure: 36 mm Hg (08/01/22 06:00:00) Oxygen Saturation: 96 % (08/01/22 07:52:00) Mode of Delivery (Oxygen): Room air (08/01/22 07:52:00) ? Physical Exam Mental Status Exam Appearance: Hospital gown, disheveled Eye contact: Within normal limits Attitude: Solicitous Motor Activity:??Calm; absent of tics, tremors, psychomotor agitation, psychomotor slowing Mood: Not good Affect: Irritable, frustrated Speech: Spontaneous, mildly slurred, still less impaired than yesterday 07/31/22, normal rate, normal tone and prosody Perception: No reported AVH but recent reports of visual hallucinations;??not overtly responding tointernal stimuli Orientation: Intact to person and place Memory: Grossly intact, not formally tested Thought Process: Perseverating Thought Content: Desire for anxiolytic and analgesic dose increases;??paranoid and persecutory delusions Medication Adherence: Intact Reliability: Limited historian Insight: Impaired Judgment: Impaired?? Impulse control: Impaired, as evident by recent behavioral dysregulation and agitation necessitating chemical sedation within the last 24 hours. Suicidality/Self-destructive Behavior: None currently but recent SI precipitating this presentation Homicidality/Violence: None Muscle strength/tone: Antigravity. No rigidity noted. Moving all four extremities spontaneously. Ambulating with slowed and steady gait. _ ?? Inpatient Medications Medications (28) Active SCHEDULED: (20) Aripiprazole 15 mg Tablet (ARIPiprazole 15 mg oral tablet) ??30 mg, By Mouth, Daily Bacitracin Topical 0.9 GM Ointment (UD) (Bacitracin Topical Oint) ??1 application, Topically, 4 times a day Benztropine 1 mg Tablet (benztropine 1 mg oral tablet) ??1 mg, By Mouth, 2 times a day Breo Ellipta 200 mcg / 25 mcg Inhaler (Breo Ellipta 200 mcg-25 mcg Inhaler) ??1 puffs, Inhalation, Daily buprenorphine-naloxone 8 mg-2 mg Film (Suboxone 8 mg-2 mg Sublingual Film) ??1 film, Sublingual, 2 times a day BusPIRone 10 mg Tablet (busPIRone 10 mg oral tablet) ??30 mg, By Mouth, 2 times a day ChlorproMAZINE 25 mg Tablet (chlorproMAZINE 50 mg oral tablet) ??75 mg, By Mouth, 2 times a day ChlorproMAZINE 50 mg Tablet (chlorproMAZINE 50 mg oral tablet) ??100 mg, By Mouth, Daily at bedtime Clonidine 0.1 mg Tablet (cloNIDine 0.1 mg oral tablet) ??0.2 mg, By Mouth, 2 times a day Divalproex 500 mg Tablet (Depakote Tablet) ??1,000 mg, By Mouth, 2 times a day Docusate Sodium 100 mg Capsule (docusate sodium 100 mg oral capsule) ??100 mg 1 capsule, By Mouth, 2 times a day Escitalopram 10 mg Tablet (escitalopram 10 mg oral tablet) ??10 mg, By Mouth, Daily Fluticasone Propionate 50mcg/inh Nasal Tovey (fluticasone 50 mcg/inh nasal spray) ??50 mcg 1 sprays, Nares, Both, 2 times a day Furosemide 80 mg Tablet (furosemide 40 mg oral tablet) ??80 mg, By Mouth, Daily Indomethacin 25 mg Capsule (indomethacin 25 mg oral capsule) ??50 mg, By Mouth, 3 times a day Levothyroxine 25 mcg Tablet (levothyroxine 0.025 mg oral tablet) ??50 mcg, By Mouth, Daily Montelukast 10 mg Tablet (montelukast 10 mg oral tablet) ??10 mg, By Mouth, Daily at bedtime Pantoprazole 20 mg EC Tablet (pantoprazole 20 mg oral delayed release tablet) ??20 mg, By Mouth, Daily Pregabalin 50 mg Capsule (pregabalin 50 mg oral capsule) ??200 mg, By Mouth, 2 times a day Tizanidine 4 mg Tablet (tiZANidine 4 mg oral tablet) ??6 mg, By Mouth, 3 times a day CONTINUOUS: (0) PRN: (8) Al hydroxide/Mg hydroxide/simethicone 200 mg-200 mg-20 mg/5 mL Susp UD (Maalox Plus Liquid) ??30 mL, By Mouth, Every 8 hours Albuterol 90mcg/Inhalation Inhaler HFA (albuterol CFC free 90 mcg/inh inhalation aerosol) ??180 mcg2 puffs, Inhalation, Every 4 hours ChlorproMAZINE 25 mg/mL Inj (ChlorproMAZINE Inj) ??50 mg 2 mL, Intramuscular, Every 6 hours ChlorproMAZINE 50 mg Tablet (chlorproMAZINE 50 mg oral tablet) ??50 mg, By Mouth, Every 6 hours HydrOXYzine Pamoate 25mg Capsule (HydrOXYzine Pamoate Capsule) ??50 mg, By Mouth, Every 6 hours Ibuprofen 400 mg Tablet (Ibuprofen Tablet) ??400 mg, By Mouth, Every 8 hours Lorazepam 1 mg Tablet (LORazepam 1 mg oral tablet) ??1 mg, By Mouth, Every 6 hours Lorazepam 2 mg Inj Syringe (LORazepam Inj) ??1 mg, Intramuscular, Every 6 hours ? Results Recent Labs No labs resulted between 07/31/2022 00:00 and 08/01/2022 12:32? Assessment/Plan Assessment:?In brief, this is a 42-year-old male with past history of asthma, chronic pain syndrome, GERD, hypothyroidism, alcohol use disorder, cannabis use disorder, bipolar disorder,??PTSD, ADHD, antisocial personality disorder, and multiple inpatient psychiatric hospitalizations, who presented to [facility] on 07/27/22 via law enforcement responding to concern for alcohol intoxication in the community??within hours after discharge from [facility] with a??plan??for voluntary??admission to respite. At this point in time, the patient has been medically cleared and referred to??[facility] for evaluation and assistance with potential psychiatric disposition, albeit currently pending bed search for [facility]. The emergency psychiatry service was consulted for assistance with medication management. There is concern for primary bipolar affective??illness??with psychotic features as evident by??affective lability,??impulse control deficits with psychomotor agitation, persecutory delusions, auditory and visual hallucinations,??and suicidal ideation in the setting of nonadherence to medications prescribed for a previously established diagnosis of bipolar I disorder with psychotic features.??Patient's??current symptoms??may represent a mixed or depressive episode, and diagnosticclarification is deferred to the next/longitudinal level of care. In the interim, will optimize current psychotropic regimen for affective lability and reconcile with last known outpatient regimen. Explained to the patient the differential diagnoses, treatment options, risks of untreated illness, and risks/benefits of treatment. See below for??detailed??treatment recommendations. ?? 07/29/22:?? Although valproic acid non-trough serum level is subtherapeutic at 56.6, patient appears oversedated on current regimen, likely secondary to a combination of higher scheduled chlorpromazine doses and frequent requirement of chemical restraint for agitation. Will decrease PRN lorazepam from 2 mg to 1 mg PO/IM Q6H PRN agitation, still to be given with chlorpromazine, and continue all other scheduled psychotropic meds unchanged. ?? 07/30/22: Valproic acid serum level subtherapeutic at 36.6. Oversedation has improved with reduction of PRN lorazepam dose, although patient is reporting akathisia likely secondary to chlorpromazine titration. Will titrate valproic acid for mood stabilization, decrease chlorpromazine dose and increase benztropine for neuroleptic side effects. Patient remains bed search for IPLOC. ?? 07/31/22: Ongoing concerns for acute psychosis, paranoia and persecutory delusions. Remains a bed search for [facility]PL[facility]. Will plan for repeat labs 08/02 for drug monitoring and need for further titration.Otherwise, no medication changes today. ??Additionally, have passed along concerns of lower extremity swelling to ED primary team. ?? 08/01/22:??Patient has been voluntarily received IM formulations of chlorpromazine (x5 36 hours), preferring this route of administration due to reported akathisia associated with PO formulation. Patient has not required involuntary restraints in the past 24 hours. Alternatives (olanzapine and halop eridol) have been even less well tolerated historically per patient report. Benztropine titration from 1 mg QD to BID on 07/30/22 may have yet to yield appreciable benefit. Given frequency of agitation PRN utilization, will advance valproic acid level check by one day, check tomorrow AM 08/02/22 to consider further optimization for mood stabilization. ? Diagnoses Bipolar I disorder, current episode mixed, severe,??with psychotic features (F31.64) Suicidal ideation ??(R45.851) Agitation ??(R45.1) Persecutory delusion ??(F22) Visual hallucination ??(R44.1) Nonadherence to medication ??(Z91.14) ? Recommendations: -Disposition as per Crisis Services, albeit currently a bed search for inpatient psychiatric hospitalization. -Continue constant collection systems consultant. Patient may NOT leave [place] without psychiatry clearance. -Continue chlorpromazine 75 mg PO BID (QAM + Q3PM) and 100 mg PO QHS for mood stabilization and psychosis to minimize akathisia. -Continue valproic acid 1000 mg PO BID for mood stabilization. Subtherapeutic serum level of 36.6 mg/L as of 07/30/22 0538.??Will repeat trough level, LFTs, and CBC in 48 hours.??Target??trough valproic acid??trough??serum level 75-100 mg/L.??Non-trough level subtherapeutic at 56.6 as of 07/27/22 @ 1654.??Pending resolution of oversedation and response to chlorpromazine titration will consider increasing to historically tolerated dose of 1000 mg PO BID. Will recheck trough level tomorrow AM 08/02/22 along with CBC and LFTs. -Continue aripiprazole 30 mg PO QD for mood stabilization and psychosis. -Continue benztropine 1 mg PO BID for akathisia and other neuroleptic side effect prophylaxis. -Continue buspirone 30 mg PO BID for anxiety. -Clonidine 0.2 mg PO BID for anxiety. Hold for SBP<90 or DBP<60. -Continue escitalopram 10 mg PO QD for mood stabilization. -Continue pregabalin 200 mg PO BID for anxiety. -Continue hydroxyzine 50 mg PO Q6H PRN anxiety. -Continue??chlorpromazine 50 mg + lorazepam 1 mg PO/IM Q6H PRN agitation/psychosis. Lorazepam decreased from 2 mg to??1 mg on 07/29/22??due to concerns for oversedation.??[place] IM for severe agitation with acute safety concern and refusal of PO. -The preference is for PO medications, but if the patient refuses the oral medications and there issufficient acute safety concern, can judiciously utilize IM equivalents for severe agitation.?? -Would note that these medications are only being utilized in the ER while the patient awaits placement. Long-term need for these medications will need to be assessed by the patient's future treatingpsychiatrist. -Seclusion or restraint may only be used as interventions of last resort in the management of severe agitation in patient. If they are used, seclusion and restraint episodes should be as short as possible, dignified, and as safe as possible for all involved. Patient preference should always be considered when feasible. ?? Please feel free to contact the Psychiatry consult service (call [phone] or [phone]) with any questions or concerns.? Payam Renee PA-C (he/him) Emergency Psychiatry Services Division of Consultation-Liaison Psychiatry Department of Psychiatry [facility]? * Ava Castelan DO: PERFORM Event Display: Progress Note Hospital Authored Date: Patient: ??LAURI TO ? Age:??42 Years?Sex:??Male?:??1980?? Subjective Chief complaint:? I need something stronger for the pain! ?? Patient seen, chart reviewed, and discussed with treatment team.? Interval History: Patient was seen for f/u due to recent agitation overnight necessitating Thorazine 50 mg and Ativan 1 mg IM x1 as well as patient's advocacy to speak with this parts data writer directly this morning. Lauri shares concerns regarding lower extremity swelling, acute on chronic lymphedema. He reports that there has been increased redness and aching pain associated with this, advocating for opioid analgesics. Amenable to brief exam by this parts data writer and reaching out to ED providers for furtherassessment and/or work-up if indicated. He also endorses frustrations with continued ED boarding, hopeful for placement sooner than later. Ongoing paranoia and persecutory delusional content. Admits t o passive suicidal ideation, but otherwise denies any homicidal ideation or desires for self-injurious behaviors. Sleep and appetite have been fair. Able to make needs known. ? Review of Systems Pertinent positives as listed above in HPI. ??Otherwise, remainder of review of systems negative. Objective ? Vital Signs?? Temperature: 97.7 DegF (07/31/22 10:00:00) Temperature Route: Oral (07/31/22 10:00:00) Pulse Rate: 90 bpm (07/31/22 10:00:00) Respiratory Rate: 20 br/min (07/31/22 10:00:00) Systolic Blood Pressure: 104 mm Hg (07/31/22 10:00:00) Diastolic Blood Pressure: 64 mm Hg (07/31/22 10:00:00) Blood pressure sites: Arm, left (07/31/22 06:19:00) Mean Arterial Pressure: 90 mm Hg (07/31/22 06:19:00) Pulse Pressure: 40 mm Hg (07/31/22 10:00:00) Oxygen Saturation: 98 % (07/31/22 10:00:00) Mode of Delivery (Oxygen): Room air (07/31/22 10:00:00) ? Physical Exam Mental Status Exam Appearance: Hospital gown, disheveled Eye contact: Within normal limits Attitude: Solicitous Motor Activity:??Calm; absent of tics, tremors, psychomotor agitation, psychomotor slowing Mood: Not good Affect: Irritable, frustrated Speech: Spontaneous, slurred but less impaired than yesterday, slow rate, normal tone and prosody Perception: No reported AVH but recent reports of visual hallucinations;??not overtly responding tointernal stimuli Orientation: Intact to person and place Memory: Grossly intact, not formally tested Thought Process: Perseverative Thought Content: Desire for anxiolytic and analgesic dose increases;??paranoid and persecutory delusions Medication Adherence: Fair over the last 24 hours Reliability: Limited historian Insight: Impaired Judgment: Impaired?? Impulse control: Impaired, as evident by recent behavioral dysregulation and agitation necessitating chemical sedation within the last 24 hours. Suicidality/Self-destructive Behavior: None currently but recent SI precipitating this presentation Homicidality/Violence: None Muscle strength/tone: Antigravity. No rigidity noted. Moving all four extremities spontaneously. Ambulating with slowed and steady gait. _ Inpatient Medications Medications (28) Active SCHEDULED: (20) Aripiprazole 15 mg Tablet (ARIPiprazole 15 mg oral tablet) ??30 mg, By Mouth, Daily Bacitracin Topical 0.9 GM Ointment (UD) (Bacitracin Topical Oint) ??1 application, Topically, 4 times a day Benztropine 1 mg Tablet (benztropine 1 mg oral tablet) ??1 mg, By Mouth, 2 times a day Breo Ellipta 200 mcg / 25 mcg Inhaler (Breo Ellipta 200 mcg-25 mcg Inhaler) ??1 puffs, Inhalation, Daily buprenorphine-naloxone 8 mg-2 mg Film (Suboxone 8 mg-2 mg Sublingual Film) ??1 film, Sublingual, 2 times a day BusPIRone 10 mg Tablet (busPIRone 10 mg oral tablet) ??30 mg, By Mouth, 2 times a day ChlorproMAZINE 25 mg Tablet (chlorproMAZINE 50 mg oral tablet) ??75 mg, By Mouth, 2 times a day ChlorproMAZINE 50 mg Tablet (chlorproMAZINE 50 mg oral tablet) ??100 mg, By Mouth, Daily at bedtime Clonidine 0.1 mg Tablet (cloNIDine 0.1 mg oral tablet) ??0.2 mg, By Mouth, 2 times a day Divalproex 500 mg Tablet (Depakote Tablet) ??1,000 mg, By Mouth, 2 times a day Docusate Sodium 100 mg Capsule (docusate sodium 100 mg oral capsule) ??100 mg 1 capsule, By Mouth, 2 times a day Escitalopram 10 mg Tablet (escitalopram 10 mg oral tablet) ??10 mg, By Mouth, Daily Fluticasone Propionate 50mcg/inh Nasal Tovey (fluticasone 50 mcg/inh nasal spray) ??50 mcg 1 sprays, Nares, Both, 2 times a day Furosemide 80 mg Tablet (furosemide 40 mg oral tablet) ??80 mg, By Mouth, Daily Indomethacin 25 mg Capsule (indomethacin 25 mg oral capsule) ??50 mg, By Mouth, 3 times a day Levothyroxine 25 mcg Tablet (levothyroxine 0.025 mg oral tablet) ??50 mcg, By Mouth, Daily Montelukast 10 mg Tablet (montelukast 10 mg oral tablet) ??10 mg, By Mouth, Daily at bedtime Pantoprazole 20 mg EC Tablet (pantoprazole 20 mg oral delayed release tablet) ??20 mg, By Mouth, Daily Pregabalin 50 mg Capsule (pregabalin 50 mg oral capsule) ??200 mg, By Mouth, 2 times a day Tizanidine 4 mg Tablet (tiZANidine 4 mg oral tablet) ??6 mg, By Mouth, 3 times a day CONTINUOUS: (0) PRN: (8) Al hydroxide/Mg hydroxide/simethicone 200 mg-200 mg-20 mg/5 mL Susp UD (Maalox Plus Liquid) ??30 mL, By Mouth, Every 8 hours Albuterol 90mcg/Inhalation Inhaler HFA (albuterol CFC free 90 mcg/inh inhalation aerosol) ??180 mcg2 puffs, Inhalation, Every 4 hours ChlorproMAZINE 25 mg/mL Inj (ChlorproMAZINE Inj) ??50 mg 2 mL, Intramuscular, Every 6 hours ChlorproMAZINE 50 mg Tablet (chlorproMAZINE 50 mg oral tablet) ??50 mg, By Mouth, Every 6 hours HydrOXYzine Pamoate 25mg Capsule (HydrOXYzine Pamoate Capsule) ??50 mg, By Mouth, Every 6 hours Ibuprofen 400 mg Tablet (Ibuprofen Tablet) ??400 mg, By Mouth, Every 8 hours Lorazepam 1 mg Tablet (LORazepam 1 mg oral tablet) ??1 mg, By Mouth, Every 6 hours Lorazepam 2 mg Inj Syringe (LORazepam Inj) ??1 mg, Intramuscular, Every 6 hours ? Results Recent Labs BLOOD COUNT & DIFF WBC 5.0 k/mm3 ()?? 07/30/2022 05:38 RBC 4.21 m/mm3 (Low)?? 07/30/2022 05:38 Hgb 9.7 Gm/dL (Low)?? 07/30/2022 05:38 Hct 33.6 % (Low)?? 07/30/2022 05:38 MCV 79.8 femtoliters (Low)?? 07/30/2022 05:38 MCH 23.0 pg (Low)?? 07/30/2022 05:38 MCHC 28.9 g/dL (Low)?? 07/30/2022 05:38 Platelet Count 277 k/mm3 ()?? 07/30/2022 05:38 RDW-SD 58.4 femtoliters (High)?? 07/30/2022 05:38 MPV 10.3 femtoliters ()?? 07/30/2022 05:38 Nucleated RBC (Automated) 0.0 #/100 WBC'S ()?? 07/30/2022 05:38 Abs. NRBC 0.0 k/mm3 ()?? 07/30/2022 05:38 ?? CHEM GENERAL Protein, Total 7.2 Gm/dL ()?? 07/30/2022 05:38 Albumin 3.5 Gm/dL ()?? 07/30/2022 05:38 Alkaline Phosphatase HEMOLYZED units/L ()?? 07/30/2022 05:38 AST (SGOT) HEMOLYZED units/L ()?? 07/30/2022 05:38 ALT (SGPT) HEMOLYZED units/L ()?? 07/30/2022 05:38 Bilirubin, Total 0.2 mg/dL ()?? 07/30/2022 05:38 Bilirubin, Direct HEMOLYZED mg/dL ()?? 07/30/2022 05:38 Bilirubin, Indirect Unable to calculate mg/dL ()?? 07/30/2022 05:38 ?? TOXICOLOGY/TDM Valproic Level 36.3 mg/L (Low)?? 07/30/2022 05:38 ?? VIROLOGY COVID-19 POC Result NEGATIVE ()?? 07/30/2022 11:41 ? Assessment/Plan Assessment:?In brief, this is a 42-year-old male with past history of asthma, chronic pain syndrome, GERD, hypothyroidism, alcohol use disorder, cannabis use disorder, bipolar disorder,??PTSD, ADHD, antisocial personality disorder, and multiple inpatient psychiatric hospitalizations, who presented to [facility] on 07/27/22 via law enforcement responding to concern for alcohol intoxication in the community??within hours after discharge from [facility] with a??plan??for voluntary??admission to respite. At this point in time, the patient has been medically cleared and referred to??[facility] for evaluation and assistance with potential psychiatric disposition, albeit currently pending bed search for [facility]. The emergency psychiatry service was consulted for assistance with medication management. There is concern for primary bipolar affective??illness??with psychotic features as evident by??affective lability,??impulse control deficits with psychomotor agitation, persecutory delusions, auditory and visual hallucinations,??and suicidal ideation in the setting of nonadherence to medications prescribed for a previously established diagnosis of bipolar I disorder with psychotic features.??Patient's??current symptoms??may represent a mixed or depressive episode, and diagnosticclarification is deferred to the next/longitudinal level of care. In the interim, will optimize current psychotropic regimen for affective lability and reconcile with last known outpatient regimen. Explained to the patient the differential diagnoses, treatment options, risks of untreated illness, and risks/benefits of treatment. See below for??detailed??treatment recommendations. ?? 07/29/22:?? Although valproic acid non-trough serum level is subtherapeutic at 56.6, patient appears oversedated on current regimen, likely secondary to a combination of higher scheduled chlorpromazine doses and frequent requirement of chemical restraint for agitation. Will decrease PRN lorazepam from 2 mg to 1 mg PO/IM Q6H PRN agitation, still to be given with chlorpromazine, and continue all other scheduled psychotropic meds unchanged. ?? 07/30/22: Valproic acid serum level subtherapeutic at 36.6. Oversedation has improved with reduction of PRN lorazepam dose, although patient is reporting akathisia likely secondary to chlorpromazine titration. Will titrate valproic acid for mood stabilization, decrease chlorpromazine dose and increase benztropine for neuroleptic side effects. Patient remains bed search for [facility]. ?? 07/31/22: Ongoing concerns for acute psychosis, paranoia and persecutory delusions. Remains a bed search for [facility]. Will plan for repeat labs 08/02 for drug monitoring and need for further titration.Otherwise, no medication changes today. ??Additionally, have passed along concerns of lower extremity swelling to ED primary team. ? Diagnoses Bipolar I disorder, current episode mixed, severe,??with psychotic features (F31.64) Suicidal ideation ??(R45.851) Agitation ??(R45.1) Persecutory delusion ??(F22) Visual hallucination ??(R44.1) Nonadherence to medication ??(Z91.14) ? Recommendations: -Disposition as per Crisis Services, albeit currently a bed search for inpatient psychiatric hospitalization. -Continue constant collection systems consultant. Patient may NOT leave [facility] without psychiatry clearance. -Continue chlorpromazine 75 mg PO BID (QAM + Q3PM) and 100 mg PO QHS for mood stabilization and psychosis to minimize akathisia. -Continue valproic acid 1000 mg PO BID for mood stabilization. Subtherapeutic serum level of 36.6 mg/L as of 07/30/22 0538.??Will repeat trough level, LFTs, and CBC in 48 hours.??Target??trough valproic acid??trough??serum level 75-100 mg/L.??Non-trough level subtherapeutic at 56.6 as of 07/27/22 @ 1654.??Pending resolution of oversedation and response to chlorpromazine titration will consider increasing to historically tolerated dose of 1000 mg PO BID. Will recheck trough level tomorrow AM alongwith CBC and LFTs. -Continue aripiprazole 30 mg PO QD for mood stabilization and psychosis. -Continue benztropine 1 mg PO BID for akathisia and other neuroleptic side effect prophylaxis. -Continue buspirone 30 mg PO BID for anxiety. -Clonidine 0.2 mg PO BID for anxiety. Hold for SBP<90 or DBP<60. -Continue escitalopram 10 mg PO QD for mood stabilization. -Continue pregabalin 200 mg PO BID for anxiety. -Continue hydroxyzine 50 mg PO Q6H PRN anxiety. -Continue??chlorpromazine 50 mg + lorazepam 1 mg PO/IM Q6H PRN agitation/psychosis. Lorazepam decreased from 2 mg to??1 mg on 07/29/22??due to concerns for oversedation.??[place] IM for severe agitation with acute safety concern and refusal of PO. -The preference is for PO medications, but if the patient refuses the oral medications and there issufficient acute safety concern, can judiciously utilize IM equivalents for severe agitation.?? -Would note that these medications are only being utilized in the ER while the patient awaits placement. Long-term need for these medications will need to be assessed by the patient's future treatingpsychiatrist. -Seclusion or restraint may only be used as interventions of last resort in the management of severe agitation in patient. If they are used, seclusion and restraint episodes should be as short as possible, dignified, and as safe as possible for all involved. Patient preference should always be considered when feasible. ?? Please feel free to contact the Psychiatry consult service (call [phone] or [phone]) with any questions or concerns.? Recommendations??cortexted to Dr. Aria Arenas. ? Ava Castelan D.O.?? Community Pharmacist, Emergency Psychiatry Services Division of Consultation-Liaison Psychiatry Department of Psychiatry [facility] ? * Prior Payam BURNHAM: PERFORM Event Display: Progress Note Hospital Authored Date: [id number] I returned a call from Lauri To's mother (Ciro, ), who asked??this parts data writer??to take patient off his psychotropic medications??and was unfortunately not very receptive to an??explanationof the recommendations made by ED psychiatry. She asked for Social Work to get involved to help clarify his insurance status and for a call from Crisis with an update regarding the bed search. Message relayed by??cortext to primary ED medical and Crisis team. Patient Care team information Care Team Personnel Name: Konrad Gallegos RN Position: [facility] ED RN W/OE and Tasks Member Role: Primary Care Nurse Name: Niki Bright RN Position: S RN Member Role: Primary Care Nurse Name: Fang Che Position: S RN Member Role: Primary Care Nurse Name: Trisha Alamo RN Position: [facility] RN Supv Member Role: Primary Care Nurse Name: Rita Son NP Position: [facility] Associate Professional Member Role: Primary Care Nurse Address: Address: [address] [place] [address]- [place] Name: Sol Chanel RN Position: [facility] RN Member Role: Primary Care Nurse Name: Trisha Beltrán RN Position: [facility] RN Supv Member Role: Primary Care Nurse Name: Helene Pérez RN Position: [facility] RN Member Role: Primary Care Nurse Name: Brenda Cuba RN Position: [facility] HBO Wound Member Role: Primary Care Nurse Name: Kell Alonso RN Position: [facility] RN Member Role: Primary Care Nurse Name: Faraz Barriga RN Position: [facility] RN Member Role: Primary Care Nurse Name: Richa Clay LPN Position: [facility] RN Member Role: Primary Care Nurse Name: Екатерина Chacko RN Position: [facility] RN Member Role: Primary Care Nurse Name: Anna Lackey RN Position: [facility] RN Member Role: Primary Care Nurse Name: Elizabeth Ha RN Position: [facility] RN Member Role: Primary Care Nurse Name: Not on Staff, PCP Position: [facility] Physician (General Medicine) Member Role: PCP Name: Anna Oconnor RN Position: [facility] Engineer Booster And Exhauster Member Role: Primary Care Nurse Name: Kip Gonzalez RN Position: [facility] RN Member Role: Primary Care Nurse Address: Address: [address] [place] [address]- [place] Name: Anisha Hinds RN Position: [facility] RN Member Role: Primary Care Nurse Name: Sunitha Gutierrez RN Position: [facility] RN Member Role: Primary Care Nurse Name: April Acuña RN Position: [facility] RN Member Role: Primary Care Nurse Name: Li Esquivel RN Position: [facility] Engineer Booster And Exhauster Member Role: Primary Care Nurse Name: Tunde White MD Position: [facility] Psychiatry MD Member Role: Lifetime Consulting Physician Address: Address: [address] [place] [address]- [place] [facility] Attending Position: [facility] ED Attendings Patient Name: Christ Adam RN Position: [facility] ED RN W/OE and Tasks Member Role: Patient Care Provider Name: Sadaf Cortes MD Position: [facility] ED Medicine MD Member Role: ED Attending Physician Address: Address: [address] [place] [address]- Name: Latoya Nicole MD Position: [facility] ED Medicine MD Member Role: Admitting Physician Address: Address: [address] [place] [address]- Care Team Related Persons Name: CIRO TO Address: home [address] [place] [address] Name: MÓNICA CREWS
--- OUTSIDE RECORDS SUMMARY | 2022-10-14 11:49 | XMS_ITS | Continuity of Care Document ---
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 Name Role Phone Jose HENDERSON, Elmer Bravo Primary Care Physician Encounter [facility] Date(s): 02/22/19 - 02/22/[address] [address]- [place] Discharge Disposition: A-D/C Home Attending Physician: Konrad Graham MD Admitting Physician: Konrad Graham MD Referring Physician: Not on Staff, Referring MD Allergies, Adverse Reactions, Alerts Substance Reaction Severity Status Zoloft Active traZODone Active ZyPREXA Active PROzac Active SEROquel Active Medications albuterol CFC free 90 mcg/inh inhalation aerosol 2, puffs, Inhalation, Every 4 hours, PRN, # 18 Gm, Refills 3, Tot. Refills 3, Maintenance, 02/13/1911:48:23 EST, Aerosol, Route to Pharmacy Electronically, [id number], [facility]/pharmacy #1111 Start Date: 02/13/19 Status: Ordered baclofen 20 mg oral tablet See Instructions, 1 tablet By Mouth once at bedtime, # 30 tablet, Refills 0, Tot. Refills 0, Maintenance, 02/13/19 16:26:19 EST, Instructions Replace Required Details, Route to Pharmacy Electronically, [id number], [facility] Start Date: 02/13/19 Status: Ordered benztropine 2 mg oral tablet 1 tablet = 2 mg, By Mouth, Daily, # 30 tablet, 0 Refills, Maintenance, 02/11/19 12:02:39 EST, Tablet Start Date: 02/11/19 Status: Ordered busPIRone 15 mg oral tablet = 15 mg, By Mouth, 3 times a day, # 21 tablet, 1 Refills, Maintenance, 12/13/18 14:47:22 EDT, Tablet Start Date: 12/13/18 Stop Date: 12/27/18 Status: Ordered Excedrin Express oral tablet 2 tablet, By Mouth, Every 8 hours, PRN for headache, # 50 tablet, 0 Refills, Maintenance, 12/19/18 19:47:59 EDT, Tablet Start Date: 12/19/18 Status: Ordered Flomax 0.4 mg oral capsule 0.4 mg, 1, capsule, By Mouth, Daily, # 30 capsule, Refills 0, Tot. Refills 0, Maintenance, 198:58:23 EST, Route to Pharmacy Electronically, [id number], [facility]/pharmacy #1111, 183, cm, 02/17/19 8:22:07 EST, Height, 127, kg... Start Date: 02/17/19 Status: Ordered fluticasone 50 mcg/inh nasal spray 2 sprays, Nares, Both, 2 times a day, # 9.9 mL, 0 Refills, Maintenance, 11/15/18 14:21:09 EDT, [place], 2 sprays Nares, Both 2 times a day Start Date: 11/15/18 Status: Ordered gabapentin 800 mg oral tablet 1 tablet = 800 mg, By Mouth, 3 times a day, # 90 tablet, 0 Refills, Maintenance, 02/12/19 4:41:59 EST, Tablet Start Date: 02/12/19 Status: Ordered indomethacin 50 mg oral capsule 1 capsule = 50 mg, By Mouth, 3 times a day, PRN for pain, # 15 capsule, 0 Refills, Maintenance, 02/22/19 8:40:41 EST, Capsule, 183, cm, 02/22/19 8:26:27 EST, Height, 124, kg, 02/22/19 8:26:27 EST, Dry Weight Start Date: 02/22/19 Status: Ordered levothyroxine 0.05 mg oral tablet 1 tablet = 50 mcg, By Mouth, Daily, # 30 tablet, 0 Refills, Maintenance, 12/09/18 17:02:46 EDT, Tablet Start Date: 12/09/18 Status: Ordered Macrobid macrocrystals-monohydrate 100 mg oral capsule 1 capsule = 100 mg, By Mouth, 2 times a day, for 10 days, # 20 capsule, 0 Refills, Acute 03/03/19 15:39:51 EST, 02/21/19 15:39:51 EST, Capsule Start Date: 02/21/19 Stop Date: 03/03/19 Status: Ordered Protonix 40 mg oral delayed release tablet = 40 mg, By Mouth, 2 times a day, # 60 tablet, 2 Refills, Maintenance, 11/15/18 14:21:31 EDT, EC Tablet Start Date: 11/15/18 Status: Ordered Robaxin 500 mg oral tablet 2 tablet = 1,000 mg, By Mouth, 4 times a day, for 7 days, # 56 tablet, 0 Refills, Acute 03/01/19 8:57:12 EST, 02/22/19 8:57:12 EST, Tablet, 183, cm, 02/22/19 8:26:27 EST, Height, 124, kg, 02/22/19 8:26:27 EST, Dry Weight Start Date: 02/22/19 Stop Date: 03/01/19 Status: Ordered thioridazine 100 mg oral tablet 2 tablet = 200 mg, By Mouth, 2 times a day, # 60 tablet, 0 Refills, Maintenance, 02/21/19 15:38:54 EST, Tablet Start Date: 02/21/19 Status: Ordered Problem List Condition Effective Dates Status Health Status Inform ant Allergic rhinitis(Confirmed) Active Asthma(Confirmed) Active Bipolar disorder with depression(Confirmed) Active GERD (gastroesophageal reflu x disease)(Confirmed) Active Generalized anxiety disorder(Confirmed) Active Hypothyroidism(Confirmed) Active Vital Signs Most recent to oldest [Reference Range]: 1 Height 183 cm (02/22/19 8:21 AM) Weight 124 kg (02/22/19 8:21 AM) Oxygen Saturation [94-100 %] 98 % (02/22/19 8:21 AM) Pulse Rate [55-90 bpm] 92 bpm *H* (02/22/19 8:21 AM) Blood Pressure [90-138/55-84 mm Hg] 126/ 84mm Hg (02/22/19 8:21 AM) Respiratory Rate [16-30 br/min] 20 br/mi n (02/22/19 8:21 AM) Temperature [96.8-100.4 DegF] 97.1 DegF (02/22/19 8:21 AM) Mode of Delivery (Oxygen) Room air (02/22/19 8:21 AM) Blood pressure sites Arm, right (02/22/19 8:21 AM) Temperature Route Temporal (02/22/19 8:21 AM) Dry Weight 124 kg (02/22/19 8:21 AM) Weight Obtained Via Patient/family state d (02/22/19 8:21 AM) Social History Social History Type Response Smoking Status 5-9 cigarettes (betw een 1/4 to 1/2 pack)/day in last 30 days entered on: 02/13/19 Sex
--- OUTSIDE RECORDS SUMMARY | 2022-10-14 11:49 | XMS_ITS | Continuity of Care Document ---
Author Name Unknown Organization [facility] Address [address] [place] [address]- Care Team Providers Care Explosive Operator Grenade Name Role Phone Soto RAMIREZ MD, Bal Serrano Primary Care Physician Encounter [facility] Date(s): 03/14/20 - 03/14/[address] [address]- Discharge Disposition: A-D/C Home Attending Physician: Hieu Medel MD Admitting Physician: Hieu Medel MD Referring Physician: Not on Staff, Referring MD Allergies, Adverse Reactions, Alerts Substance Reaction Severity Status Zoloft Active Thorazine Active traZODone Active ZyPREXA Active Medications albuterol CFC free 90 mcg/inh inhalation aerosol 2, puffs, Inhalation, Every 4 hours, PRN, # 18 Gm, Refills 3, Tot. Refills 3, Maintenance, 02/13/1911:48:23 EST, Aerosol, Route to Pharmacy Electronically, [id number], [facility] Start Date: 02/13/19 Status: Ordered Ambien 10 mg oral tablet 1 tablet = 10 mg, By Mouth, Daily at bedtime, PRN as needed for insomnia, 0 Refills, Maintenance, 01/11/20 2:31:00 EDT, Tablet Start Date: 01/11/20 Status: Ordered busPIRone 15 mg oral tablet 1 tablet = 15 mg, By Mouth, 3 times a day, # 90 tablet, 0 Refills, Maintenance, 02/28/19 12:08:43 EST, Tablet, [facility], 183, cm, 02/28/19 11:39:08 EST, Height, 124, kg, 02/22/19 8:26:27 EST, Dry Weight Start Date: 02/28/19 Status: Ordered CeleXA 40 mg oral tablet 40 mg, 1, tablet, By Mouth, Daily, # 30 tablet, Refills 0, Maintenance, 01/11/20 2:30:00 EDT Start Date: 01/11/20 Status: Ordered cloNIDine 0.1 mg oral tablet 0.1 mg, 1, tablet, By Mouth, 2 times a day, # 10 tablet, Refills 0, Tot. Refills 0, Maintenance, 01/04/20 13:04:00 EDT, Route to Pharmacy Electronically, [facility]/pharmacy #1111, 183, cm, 01/04/20 8:53:00EDT, Height, 127, kg, 01/04/20 9:09:00 EDT, Dry Weight Start Date: 01/04/20 Status: Ordered EC Naprosyn 375 mg oral enteric coated tablet 1 tablet = 375 mg, By Mouth, 2 times a day, # 20 tablet, 0 Refills, Maintenance, 03/09/20 20:02:00 EST, EC Tablet, [facility] #[id number], Partial fill upon patient request if the prescription is for a schedule II opioid drug., 183, cm, 01/14/20... Start Date: 03/09/20 Status: Ordered fluticasone 50 mcg/inh nasal spray 2 sprays, Nares, Both, 2 times a day, # 9.9 mL, 0 Refills, Maintenance, 11/15/18 14:21:09 EDT, [place], 2 sprays Nares, Both 2 times a day Start Date: 11/15/18 Status: Ordered levothyroxine 0.05 mg oral tablet 1 tablet = 50 mcg, By Mouth, Every Wednesday, # 30 tablet, 0 Refills, Maintenance, 12/09/18 17:02:46 EDT, Tablet Start Date: 12/09/18 Status: Ordered ondansetron 4 mg oral tablet, disintegrating 1 tablet = 4 mg, By Mouth, Every 8 hours, PRN Nausea & Vomiting, # 20 tablet, 0 Refills, Maintenance, 01/09/20 6:19:00 EDT, Tablet, [facility]/pharmacy #1111, 183, cm, 01/09/20 5:34:00 EDT, Height, 120,kg, 01/09/20 5:34:00 EDT, Dry Weight Start Date: 01/09/20 Stop Date: 01/16/20 Status: Ordered Protonix 40 mg oral delayed release tablet = 40 mg, By Mouth, 2 times a day, # 60 tablet, 2 Refills, Maintenance, 11/15/18 14:21:31 EDT, EC Tablet Start Date: 11/15/18 Status: Ordered RisperDAL 2 mg oral tablet 2 mg, 1, tablet, By Mouth, 2 times a day, # 60 tablet, Refills 0, Maintenance, 01/14/20 13:59:00 EST Start Date: 01/14/20 Status: Ordered Topamax 200 mg oral tablet 1 tablet = 200 mg, By Mouth, 2 times a day, # 60 tablet, 0 Refills, Maintenance, 01/11/20 2:30:00 EDT, Tablet Start Date: 01/11/20 Status: Ordered Xanax 1 mg oral tablet = 1.5 mg, By Mouth, 2 times a day, 0 Refills, Maintenance, 01/11/20 2:31:00 EDT, Tablet Start Date: 01/11/20 Status: Ordered Problem List Condition Effective Dates Status Health Status Inform ant Allergic rhinitis(Confirmed) Active Asthma(Confirmed) Active Bipolar disorder with depression(Confirmed) Active GERD (gastroesophageal reflu x disease)(Confirmed) Active Generalized anxiety disorder(Confirmed) Active Hypothyroidism(Confirmed) Active Vital Signs Most recent to oldest [Reference Range]: 1 2 3 Height 188 cm (03/14/20 9:24 PM) 188 cm (03/14/20 8:36 PM) 188 cm (03/14/20 7:33 PM) Weight 123 kg (03/14/20 9:24 PM) 123 kg (03/14/20 8:36 PM) 123 kg (03/14/20 7:33 PM) Oxygen Saturation [94-100 %] 100 % (03/14/20 9:24 PM) 100 % (03/14/20 8:36 PM) 100 % (03/14/20 7:33 PM) Pulse Rate [55-90 bpm] 82 bpm (03/14/20 9:24 PM) 75 bpm (03/14/20 8:36 PM) 77 bpm (03/14/20 7:33 PM) Body Mass Index [18.5-24.99] 34.8 *>HHI* (03/14/20 9:24 PM) 34.8 *>HHI* (03/14/20 8:36 PM) Blood Pressure [90-138/55-84 mm Hg] 119/88mm Hg (03/14/20 9:24 PM) 107/76mm Hg (03/14/20 8:36 PM) 111/88mm Hg (03/14/20 7:33 PM) Respiratory Rate [16-30 br/min] 15 br/min *L* (03/14/20 9:24 PM) 14 br/min *L* (03/14/20 8:36 PM) 14 br/min *L* (03/14/20 7:33 PM) Temperature [96.8-100.4 DegF] 97.1 DegF (03/14/20 7:33 PM) Mode of Delivery (Oxygen) Room air (03/14/20 9:24 PM) Room air (03/14/20 8:36 PM) Room air (03/14/20 7:33 PM) Temperature Route Temporal (03/14/20 7:33 PM) Dry Weight 123 kg (03/14/20 9:24 PM) 123 kg (03/14/20 8:36 PM) 123 kg (03/14/20 7:33 PM) Weight Obtained Via Patient/family state d (03/14/20 7:33 PM) Dry Weight Obtained Via Patient/family s tated (03/14/20 7:33 PM) Social History Social History Type Response Smoking Status 10 or more cigarette s (1/2 pack or more)/day in last 30 days; Tobacco user in household: No entered on: 11/15/18 Sex
--- OUTSIDE RECORDS SUMMARY | 2022-10-14 11:49 | XMS_ITS | Continuity of Care Document ---
Author Name Unknown Organization [facility] Address [address] [place] [address]- Care Team Providers Care Grant Manager Name Role Phone Soto RAMIREZ MD, Bal Serrano Primary Care Physician Encounter [facility] Date(s): 09/17/20 - 10/17/20 [facility] [address] [place] [address]- Allergies, Adverse Reactions, Alerts Substance Reaction Severity [...] 02/13/1911:48:23 EST, Aerosol, Route to Pharmacy Electronically, [id number], [facility]/pharmacy #1111 Start Date: 02/13/19 Status: [...] 3 Refills, Maintenance, 04/15/20 10:15:00 EST, Tablet, [facility] #[id number], Partial fill upon patient request if the prescription isfor a schedule II opioid drug., 183, cm, 04/15/20 0... Start Date: 04/15/20 Stop Date: 05/13/20 Status: Ordered amitriptyline 25 mg oral tablet 75 mg, 3, tablet, By Mouth, Daily, # 21 tablet, Refills 3, Tot. Refills 3, Maintenance, 04/13/20 14:55:00 EST, Route to Pharmacy Electronically, [facility] #[id number], Partial fill upon patientrequest if the prescription is for a schedule II op... Start Date: 04/13/20 Stop Date: 05/11/20 Status: Ordered baclofen 10 mg oral tablet 20 mg, 2, tablet, By Mouth, 2 times a day, # 56 tablet, Refills 1, Tot. Refills 1, Maintenance, 04/13/20 14:54:00 EST, Route to Pharmacy Electronically, [facility] #[id number], Partial fill uponpatient request if the prescription is for a schedu... Start Date: 04/13/20 Stop Date: 05/11/20 Status: Ordered busPIRone 15 mg oral tablet 1 tablet = 15 mg, By Mouth, 3 times a day, # 42 tablet, 1 Refills, Maintenance, 04/13/20 14:56:00 EST, Tablet, [facility] #[id number], Partial fill upon patient request if the prescription is for a schedule II opioid drug., 183, cm, 04/13/20 9:04... Start Date: 04/13/20 Stop Date: 05/11/20 Status: Ordered CeleBREX 100 mg oral capsule 1 capsule = 100 mg, By Mouth, 2 times a day, # 15 capsule, 0 Refills, Maintenance, 07/27/20 19:07:00 EDT, Capsule, [facility] #[id number], Partial fill upon patient request if the [...] 09/13/20 14:45:00 EDT, Route to Pharmacy Electronically, [facility] #[id number], Partial fill upon patient request if the prescription is for a salima... Start Date: 09/13/20 Status: Ordered fluticasone 50 mcg/inh nasal spray 2 sprays, Nares, Both, 2 times a day, # 9.9 mL, 0 Refills, Maintenance, 11/15/18 14:21:09 EDT, [place], 2 sprays Nares, Both 2 times a [...] 05/28/21 9:00:00 EDT, 05/28/20 15:55:00 EDT, Patch, [facility] #[id number], Partial fill upon patient request if the prescription is for aschedule II opioid drug., 1 patch Topically Daily,... Start Date: 05/28/20 Stop Date: 05/28/21 Status: Ordered propranolol 40 mg oral tablet 40 mg, 1, tablet, By Mouth, 2 times a day, # 28 tablet, Refills 1, Tot. Refills 1, Maintenance, 04/13/20 14:56:00 EST, Route to Pharmacy Electronically, [facility] #[id number], Partial fill uponpatient request if the prescription [...] 04/13/20 14:57:00 EST, Route to Pharmacy Electronically, [facility] #[id number], Partial fill upon patient request if the [...] 1 Refills, Maintenance, 04/13/20 14:55:00 EST, Tablet, [facility] #[id number], Partial fill upon patient request if the prescription is for a schedule II opioid drug., 183, cm, 04/13/20 9:0... Start Date: 04/13/20 Stop Date: 05/11/20 Status: Ordered traMADol 50 mg oral tablet 1 tablet = 50 mg, By Mouth, Every 12 hours, PRN for pain, # 10 tablet, 0 Refills, Maintenance, 07/27/20 19:15:00 EDT, Tablet, [facility] #[id number], Partial fill upon patient request if the [...] MESH VENTRALIGHT ECHO ELLIPS 4 - BARD ([id number]) 1 Bard Unknown HAYDEE:{[id number] Assigning Author ity:FDA
--- OUTSIDE RECORDS SUMMARY | 2022-10-14 11:49 | XMS_ITS | Continuity of Care Document ---
Author Name Unknown Organization [facility] Address [address] [place] [address]- Care Team Providers Care Hiv Cts Specialist Name Role Phone Not on Staff, PCP Primary Care Physician Unavail able Encounter [facility] Date(s): 06/27/22 - 06/28/[address] [address]- Encounter Diagnosis Leg pain(Final) - 06/28/22 Discharge Disposition: A-D/C Usp, Intermediate, or Longterm Fac Attending Physician: Lizzeth HENDERSON, Alcides Guaman Admitting Physician: Lizzeth HENDERSON, Alcides Guaman Referring Physician: Not on Staff, Referring MD Allergies, Adverse Reactions, Alerts Substance Reaction Severity Status Zoloft Active Thorazine Active traZODone Active ZyPREXA Active Immunizations Given and Recorded Vaccine Date Status Refusal Reason tetanus/diphtheria/pertussis, acel(Tdap) 04/09/22 Recorded tetanus/diphtheria/pertussis, acel(Tdap) 05/18/18 Recorded tetanus/diphtheria/pertussis, acel(Tdap) 12/19/16 Recorded [id number] 12y+ bivalent booster vax 02/11/22 Recorded SARS-CoV-2 [...] 1 Refills, Maintenance, 05/08/22 12:50:00 EST, Tablet, [email or web address] #[id number], Partial fill upon patient request if the prescription is for a schedule II opioid drug., yolanda Go, 05/08/22 7:19:00 EST,... Start Date: 05/08/22 Stop Date: 06/05/22 Status: Ordered benztropine 1 mg oral tablet 1 mg, 1, tablet, By Mouth, Daily, # 14 tablet, Refills 1, Tot. Refills 1, Maintenance, 05/08/22 12:50:00 EST, Route to Pharmacy Electronically, [email or web address] #[id number], Partial fill upon patient request if the prescription is for a schedule II opi... Start Date: 05/08/22 Stop Date: 06/05/22 Status: Ordered busPIRone 30 mg oral tablet 1 tablet = 30 mg, By Mouth, 2 times a day, # 28 tablet, 0 Refills, Maintenance, 05/08/22 12:59:00 EST, Tablet, [email or web address] #[id number], Partial fill upon patient request if the prescription is for a schedule II opioid drug., 176yolanda, 05/08/22 7:19... Start Date: 05/08/22 Stop Date: 05/22/22 Status: Ordered cephalexin monohydrate 500 mg oral capsule 2 capsule = 1,000 mg, By Mouth, Every 12 hours, for 5 days, # 20 capsule, 0 Refills, Acute 230:02:00 EDT, 06/28/22 0:02:00 EDT, Capsule, [facility] #[id number], Partial fill upon patient request if the prescription is for a schedule II opi... Start Date: 06/28/22 Stop Date: 07/03/22 Status: Ordered chlorproMAZINE 100 mg oral tablet = 100 mg, By Mouth, Daily at bedtime, # 14 tablet, 0 Refills, Maintenance, 05/08/22 12:52:00 EST, Tablet, [email or web address] #[id number], Partial fill upon patient request if the prescription is for a schedule II opioid drug., 176yolanda, 05/08/22 7:19:00 E... Start Date: 05/08/22 Stop Date: 05/22/22 Status: Ordered chlorproMAZINE 50 mg oral tablet = 50 mg, By Mouth, Daily before lunch, # 14 tablet, 0 Refills, Maintenance, 05/08/22 12:51:00 EST, Tablet, [facility] #[id number], Partial fill upon patient request if the prescription is for a schedule II opioid drug., 176, yolanda, 05/08/22 7:19:00... Start Date: 05/08/22 Stop Date: 05/22/22 Status: Ordered chlorproMAZINE 50 mg oral tablet 1 tablet = 50 mg, By Mouth, Daily in AM, # 180 tablet, 0 Refills, Maintenance, 05/08/22 12:53:00 EST, Tablet, [facility] #[id number], Partial fill upon patient request if the prescription is fora schedule II opioid drug., 176, yolanda, 05/08/22 7:19:... Start Date: 05/08/22 Status: Ordered cloNIDine 0.2 mg oral tablet 0.2 mg, 1, tablet, By Mouth, 2 times a day, # 20 tablet, Refills 2, Tot. Refills 2, Maintenance, 01/01/22 15:56:00 EDT, Route to Pharmacy Electronically, [email or web address] #[id number], Partial fill upon patient request if the prescription is for a sched... Start Date: 01/01/22 Stop Date: 01/31/22 Status: Ordered divalproex sodium 500 mg oral enteric coated tablet 1 tablet = 500 mg, By Mouth, Daily in AM, # 14 tablet, 0 Refills, Maintenance, 05/08/22 12:49:00 EST, Tablet, [facility] #[id number], Partial fill upon patient request if the prescription is fora schedule II opioid drug., 176, yolanda, 05/08/22 7:19:... Start Date: 05/08/22 Stop Date: 05/22/22 Status: Ordered divalproex sodium 500 mg oral enteric coated tablet 2 tablets, By Mouth, Daily at bedtime, # 28 tablet, 0 Refills, Maintenance, 05/08/22 12:49:00 EST, Tablet, [facility] #[id number], Partial fill upon patient request if the prescription is for a schedule II opioid drug., 176, yolanda, 05/08/22 7:19:00... Start Date: 05/08/22 Stop Date: 05/22/22 Status: Ordered docusate sodium 100 mg oral capsule 100 mg, 1, capsule, By Mouth, 2 times a day, # 60 capsule, Refills 0, Tot. Refills 0, Maintenance, 06/20/21 23:57:00 EDT, Route to Pharmacy Electronically, [facility] #[id number], Partial fill upon patient request if the [...] AM, 0 Refills, Maintenance, 03/10/22 8:17:00 EST, [place], Partial fill upon patient request if the [...] 1 Refills, Maintenance, 01/02/22 9:22:00 EDT, Tablet, [email or web address] #[id number], Partial fill upon patient request if the [...] [Reference Range]: 1 2 Height 183 cm (06/28/22 12:39 AM) 183 cm (06/27/22 11:34 PM) Weight 119 kg (06/28/22 12:39 AM) 119 kg (06/27/22 11:34 PM) Oxygen Saturation [94-100 %] 99 % (06/28/22 12:39 AM) 98 % (06/27/22 11:34 PM) Pulse Rate [55-90 bpm] 84 bpm (06/28/22 12:39 AM) 83 bpm (06/27/22 11:34 PM) Body Mass Index [18.5-24.99 kg/m2] 35.53 kg/m2 *>HHI* (06/28/22 12:39 AM) Blood Pressure [90-138/55-84 mm Hg] 113/ 68mm Hg (06/28/22 12:39 AM) 113/71mm Hg (06/27/22 11:34 PM) Respiratory Rate [16-30 br/min] 16 br/mi n (06/28/22 12:39 AM) 16 br/min (06/27/22 11:34 PM) Temperature [96.8-100.4 DegF] 97.5 DegF (06/28/22 12:39 AM) Mode of Delivery (Oxygen) Room air (06/28/22 12:39 AM) Room air (06/27/22 11:34 PM) Blood pressure sites Arm, right (06/28/22 12:39 AM) Arm, left (06/27/22 11:34 PM) Temperature Route Oral (06/28/22 12:39 AM) Dry Weight 119 kg (06/28/22 12:39 AM) 119 kg (06/27/22 11:34 PM) Social History Social History Type Response [...] Code MRI Safety Implantable Status 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 [id number] Unknown [id number] Unknown 03/11/21 Unknown Unknown Active GS1 Note * Lizzeth HENDERSON, Alcides Guaman: PERFORM Event Display: Patient Education Leaflets Authored Date: [id number] Cellulitis ?? [id number] Cellulitis Cellulitis is an infection of the deep layers of skin. A break in the skin, such as a cut or scratch, can let bacteria under the skin. Cellulitis causes the affected skin to become red, swollen, warm, and sore. The reddened areas havea border you can see. An open sore may leak fluid (pus). You may have a fever, chills, and pain. Cellulitis is treated with antibiotics taken for 7 to 10 days. An open sore may be cleaned and covered with cool wet gauze. Symptoms should get better 1 to 2 days after treatment is started. Make sure to take all the antibiotics for the full number of days until they are gone. Keep taking the medicine even if your symptoms go away. If not treated, cellulitis can get into the bloodstream and lymph nodes. The infection can then spread throughout the body. This causes serious illness. Home care Follow these tips: ??? Limit the use of the part of your body with cellulitis.? If the infection is on your leg, keep your leg raised while sitting. This helps reduce swelling. ??? Take all of the antibiotic medicine exactly as directed until it is gone. Don't miss any doses, especially duringthe first 7 days. Finish taking all of the medicine even when your symptoms get better. ??? Keep the affected area clean and dry. ??? Wash your hands with soap and clean, running water before and after touching your skin. Anyone else who touches your skin should also wash his or her hands. Don't share towels. ?? Follow-up care Follow up with your healthcare provider, or as advised. If your infection doesn't go away after finishing the first antibiotic, your healthcare provider will prescribe a different one. ?? When to seek medical advice Call your healthcare provider right away if any of these occur: ??? Red areas that spread ??? Swelling or pain that gets worse ??? Fluid leaking from the skin (pus) ??? Fever higher of 100.4?? F (38.0?? C) or higher after 2 days on antibiotics ?? Last Reviewed Date: 2021 ?? [id number] [employer]. All rights reserved. This information is not intended as a substitute for professional medical care. Always follow your healthcare professional's instructions. ?? Patient Care team information Care Team Personnel Name: Konrad Gallegos RN Position: [facility] ED RN W/OE and Tasks Member Role: Primary Care Nurse Name: Niki Bright RN Position: [facility] RN Member Role: Primary Care Nurse Name: Fang Che Position: [facility] RN Member Role: Primary Care Nurse Name: Trisha Alamo RN Position: [facility] RN Supv Member Role: Primary Care Nurse Name: Rita Son NP Position: [facility] Associate Professional Member Role: Primary Care Nurse Address: Address: [address] [place] [address] Name: Sol Chanel RN Position: [facility] RN Member Role: Primary Care Nurse Name: Trisha Beltrán RN Position: [facility] RN Supv Member Role: Primary Care Nurse Name: Helene Pérez RN Position: [facility] RN Member Role: Primary Care Nurse Name: Brenda Cuba RN Position: [facility] HBO Wound Member Role: Primary Care Nurse Name: Kell Alonso RN Position: [facility] RN Member Role: Primary Care Nurse Name: Faraz Barriga RN Position: [facility] RN Member Role: Primary Care Nurse Name: Richa Clay LPN Position: [facility] RN Member Role: Primary Care Nurse Name: Екатерина Chacko RN Position: [facility] RN Member Role: Primary Care Nurse Name: Anna Lackey RN Position: [facility] RN Member Role: Primary Care Nurse Name: Elizabeth Ha RN Position: [facility] RN Member Role: Primary Care Nurse Name: Not on Staff, PCP Position: [facility] Physician (General Medicine) Member Role: PCP Name: Anna Oconnor RN Position: [facility] [employer] Member Role: Primary Care Nurse Name: Kip Gonzalez RN Position: [facility] RN Member Role: Primary Care Nurse Address: Address: [address] [place] [address]- [place] Name: Anisha Hinds RN Position: [facility] RN Member Role: Primary Care Nurse Name: Kari Grijalva RN Position: [facility] RN Member Role: Primary Care Nurse Name: Sunitha Gutierrez RN Position: [facility] RN Member Role: Primary Care Nurse Name: April Acuña RN Position: [facility] RN Member Role: Primary Care Nurse Name: Li Esquivel RN Position: [facility] Hospital [employer] Member Role: Primary Care Nurse Name: Tunde White MD Position: [facility] Psychiatry MD Member Role: [employer] Consulting Physician Address: Address: [address] [place] [address]- [place] Name: Alix Graham Position: [facility] ED RN W/OE and Tasks Member Role: Patient Care Provider Name: Alcides Moreau MD Position: [facility] Resident Member Role: ED Attending Physician Address: Address: [address] [place] [address]- Care Team Related Persons Name: FORREST TO Address: [address] [place] [address] Name: MÓNICA CREWS
--- OUTSIDE RECORDS SUMMARY | 2022-10-14 11:49 | XMS_ITS | Continuity of Care Document ---
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 Date(s): 05/12/22 - 05/17/[address] [id number]- Discharge Disposition: A-D/C Home Attending Physician: Suzanne Chau MD Admitting Physician: Lillian HENDERSON, Linwood Gibson Referring Physician: Triston Saravia MD Allergies, Adverse Reactions, Alerts Substance Reaction Severity Status Zoloft Active Thorazine Active traZODone Active ZyPREXA Active Immunizations Given and Recorded Vaccine Date Status Refusal Reason tetanus/diphtheria/pertussis, acel(Tdap) 04/09/22 Recorded tetanus/diphtheria/pertussis, acel(Tdap) 05/18/18 Recorded tetanus/diphtheria/pertussis, acel(Tdap) 12/19/16 Recorded [id number] 12y+ bivalent booster vax 02/11/22 Recorded SARS-CoV-2 [...] 1 Refills, Maintenance, 05/08/22 12:50:00 EST, Tablet, [facility] #[id number], Partial fill upon patient request if the prescription is for a schedule II opioid drug., yolanda Go, 05/08/22 7:19:00 EST,... Start Date: 05/08/22 Stop Date: 06/05/22 Status: Ordered benztropine 1 mg oral tablet 1 mg, 1, tablet, By Mouth, Daily, # 14 tablet, Refills 1, Tot. Refills 1, Maintenance, 05/08/22 12:50:00 EST, Route to Pharmacy Electronically, [facility] #[id number], Partial fill upon patient request if the prescription is for a schedule II opi... Start Date: 05/08/22 Stop Date: 06/05/22 Status: Ordered busPIRone 30 mg oral tablet 1 tablet = 30 mg, By Mouth, 2 times a day, # 28 tablet, 0 Refills, Maintenance, 05/08/22 12:59:00 EST, Tablet, [facility] #[id number], Partial fill upon patient request if the prescription is for a schedule II opioid drug., yolanda Go, 05/08/22 7:19... Start Date: 05/08/22 Stop Date: 05/22/22 Status: Ordered chlorproMAZINE 100 mg oral tablet = 100 mg, By Mouth, Daily at bedtime, # 14 tablet, 0 Refills, Maintenance, 05/08/22 12:52:00 EST, Tablet, [facility] #[id number], Partial fill upon patient request if the prescription is for a schedule II opioid drug., yolanda Go, 05/08/22 7:19:00 E... Start Date: 05/08/22 Stop Date: 05/22/22 Status: Ordered chlorproMAZINE 50 mg oral tablet = 50 mg, By Mouth, Daily before lunch, # 14 tablet, 0 Refills, Maintenance, 05/08/22 12:51:00 EST, Tablet, [facility] #[id number], Partial fill upon patient request if the prescription is for a schedule II opioid drug., yolanda Go, 05/08/22 7:19:00... Start Date: 05/08/22 Stop Date: 05/22/22 Status: Ordered chlorproMAZINE 50 mg oral tablet 1 tablet = 50 mg, By Mouth, Daily in AM, # 180 tablet, 0 Refills, Maintenance, 05/08/22 12:53:00 EST, Tablet, [facility] #[id number], Partial fill upon patient request if the prescription is fora schedule II opioid drug., 176, cm, 05/08/22 7:19:... Start Date: 05/08/22 Status: Ordered cloNIDine 0.2 mg oral tablet 0.2 mg, 1, tablet, By Mouth, 2 times a day, # 20 tablet, Refills 2, Tot. Refills 2, Maintenance, 01/01/22 15:56:00 EDT, Route to Pharmacy Electronically, [facility] #[id number], Partial fill upon patient request if the prescription is for a sched... Start Date: 01/01/22 Stop Date: 01/31/22 Status: Ordered divalproex sodium 500 mg oral enteric coated tablet 1 tablet = 500 mg, By Mouth, Daily in AM, # 14 tablet, 0 Refills, Maintenance, 05/08/22 12:49:00 EST, Tablet, [facility] #[id number], Partial fill upon patient request if the prescription is fora schedule II opioid drug., 176, cm, 05/08/22 7:19:... Start Date: 05/08/22 Stop Date: 05/22/22 Status: Ordered divalproex sodium 500 mg oral enteric coated tablet 2 tablets, By Mouth, Daily at bedtime, # 28 tablet, 0 Refills, Maintenance, 05/08/22 12:49:00 EST, Tablet, [facility] #[id number], Partial fill upon patient request if the prescription is for a schedule II opioid drug., 176, cm, 05/08/22 7:19:00... Start Date: 05/08/22 Stop Date: 05/22/22 Status: Ordered docusate sodium 100 mg oral capsule 100 mg, 1, capsule, By Mouth, 2 times a day, # 60 capsule, Refills 0, Tot. Refills 0, Maintenance, 06/20/21 23:57:00 EDT, Route to Pharmacy Electronically, [facility] #[id number], Partial fill upon patient request if the prescription is for a salima... Start Date: 06/20/21 Status: Ordered doxycycline hyclate 100 mg oral capsule 1 capsule = 100 mg, By Mouth, 2 times a day, for 3 days, may take with food to minimize abdominal discomfort, # 6 capsule, 0 Refills, Acute 05/20/22 10:06:00 EST, 05/17/22 10:06:00 EST, Capsule, [facility] #[id number], Partial fill upon patient r... Start Date: 05/17/22 Stop Date: 05/20/22 Status: Ordered escitalopram 10 mg oral tablet 1 tablet = 10 mg, By Mouth, Daily, # 30 tablet, 5 Refills, Maintenance, 03/11/22 10:23:00 EST, Tablet, Partial fill upon patient request if the prescription is for a schedule II opioid drug. Start Date: 03/11/22 Status: Ordered fluticasone 50 mcg/inh nasal spray 2 sprays, Nares, Both, Daily in AM, 0 Refills, Maintenance, 03/10/22 8:17:00 EST, [facility], Partial fill upon patient request if the [...] 1 Refills, Maintenance, 01/02/22 9:22:00 EDT, Tablet, [facility] #[id number], Partial fill upon patient request if the [...] opioid drug. Start Date: 03/11/22 Status: Ordered oxyCODONE 5 mg oral tablet 2.5 mg, 0.5, tablet, By Mouth, 2 times a day, PRN, for 3 days, # 3 tablet, Refills 0, Tot. Refills 0, Acute 05/20/22 10:03:00 EST, as needed for pain, 05/17/22 10:03:00 EST, Route to Pharmacy Electronically, [facility] #[id number], Partial fill u... Start Date: 05/17/22 Stop Date: 05/20/22 Status: Ordered Percocet-5/325 325 mg-5 mg oral tablet 2 tablet, Tablet, By Mouth, Every 4 hours, PRN for Pain , Moderate, Routine, 05/14/22 19:19:00 EST Start Date: 05/14/22 Stop Date: 05/18/22 Status: Discontinued pregabalin 200 mg oral capsule 1 capsule = 200 mg, By Mouth, 2 times a day, 0 Refills, Maintenance, 04/19/22 23:11:00 EST, Capsule, Partial fill upon patient request if the prescription is for a schedule II opioid drug. Start Date: 04/19/22 Status: Ordered Singulair = 10 mg, By Mouth, Daily, 0 Refills, Maintenance, 05/21/20 9:45:00 EST, Partial fill upon patient request if the prescription is for a schedule II opioid drug. Start Date: 05/21/20 Status: Ordered tamsulosin 0.4 mg oral capsule [...] oldest [Reference Range]: 1 2 3 Height 186 cm (05/17/22 8:31 AM) 186 cm (05/17/22 4:30 AM) 186 cm (05/16/22 7:41 PM) Weight 130.8 kg (05/13/22 5:13 PM) 129 kg (05/12/22 10:03 PM) 129 kg (05/12/22 4:19 AM) Oxygen Saturation [94-100 %] 100 % (05/17/22 8:31 AM) 98 % (05/17/22 4:30 AM) 98 % (05/16/22 7:41 PM) Pulse Rate [55-90 bpm] 90 bpm (05/17/22 8:31 AM) 72 bpm (05/17/22 4:30 AM) 85 bpm (05/16/22 7:41 PM) Body Mass Index [18.5-24.99 kg/m2] 37.81 kg/m2 *>HHI* (05/13/22 5:13 PM) 37.29 kg/m2 *>HHI* (05/12/22 10:03 PM) Blood Pressure [90-138/55-84 mm Hg] 138/79mm Hg (05/17/22 8:31 AM) 146/86mm Hg *H* (05/17/22 4:30 AM) 158/97mm Hg *H* (05/16/22 7:41 PM) Respiratory Rate [16-30 br/min] 16 br/min (05/17/22 2:00 PM) 14 br/min *L* (05/17/22 1:33 PM) 16 br/min (05/17/22 10:42 AM) Temperature [96.8-100.4 DegF] 97.7 DegF (05/17/22 8:31 AM) 98.4 DegF (05/17/22 4:30 AM) 98.0 DegF (05/16/22 7:41 PM) Liters per Minute 2 L/min (05/13/22 7:00 AM) 2 L/min (05/13/22 6:02 AM) 0 L/min (05/12/22 10:03 PM) Mode of Delivery (Oxygen) Room air (05/17/22 8:31 AM) Room air (05/17/22 4:30 AM) Room air (05/16/22 7:41 PM) Blood pressure sites Arm, left (05/17/22 8:31 AM) Arm, right (05/17/22 4:30 AM) Arm, right (05/16/22 7:41 PM) Temperature Route Oral (05/17/22 8:31 AM) Temporal (05/17/22 4:30 AM) Temporal (05/16/22 7:41 PM) Dry Weight 130.8 kg (05/13/22 5:13 PM) 129 kg (05/12/22 10:03 PM) 129 kg (05/12/22 4:19 AM) Weight Obtained Via Standing scale (05/13/22 5:13 PM) Standing scale (05/12/22 4:19 AM) Dry Weight Obtained Via Standing scale (05/13/22 5:13 PM) Standing scale (05/12/22 4:19 AM) Social History Social History Type Response [...] Code MRI Safety Implantable Status 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 [id number] Unknown [id number] Unknown 03/11/21 Unknown Unknown Active GS1 Admission evaluation note * Mary Fuentes: PERFORM Mary Fuentes: PERFORM, MODIFY Mary Fuentes: MODIFY, MODIFY, MODIFY Event Display: Admission Note Authored Date: [id number] Patient: ??VAHID TO ? Age:??42 Years?Sex:??Male?:??1980?? Chief Complaint/Reason for Consultation Worsening LE pain and wound History of Present Illness 42 yo male with a history of Bipolar 1 disorder, anxiety,??substance abuse, chronic pain syndrome, venous stasis, asthma, COPD,??GERD, hypothyroidism presenting with a painful chronic venous ulcer. He was recently d/c from the hospital on 05/08??with a stay complicated by bleeding varicose vein rupture after pt picked on it and??lower extremity swelling and infection of chronic venous ulcer d/c onKeflex. Negative for DVT.??He has a history of agitation and aggression and was seen by [facility] and was d/c on new medications. He came back to the ED on 05/11/22 for worsening lower extremity pain andincreasing discharge from??his chronic??ulcer. was d/c from ED with 5 days extension of Keflex. Retu rned to the ED this morning with unbearable pain to the left lower extremity and worsening discharge. He denies fever and chills. ?? In the ED, he was tachycardic to 100, all other vitals stable. Labs from last night showed no leukocytosis, H/H of 11/07.6, platelet 231, lytes wnl, kidney function stable, troponin 12. EKG NSR, Qtc 478.??Was very agitated and received Ativan, Xanax, oxycodone 10mg, and PO Haldol and moved to psych section of the ED. Keflex stopped and 2g Cefazolin was given. ?? Upon initial evaluation, patient was calm and cooperative. Was complaining about pain in his??left leg where the ulcer is. States oxycodone is working well for him. States it is not getting better, has more purulent drainage, and looks more red to him. Initially had chest pain, shortness of breath, and palpitations upon arrival to the ED, which he says was his anxiety and has gone away complete ly since receiving Xanax. Of note, psych d/c him with new medications on his last visit. pt says heis compliant, but tried telling me his dosage has increased on some medications, but not able to confirm who increased dosing since being d/c from hospital on 05/08. No SI or wanting to hurt others. States he actually feels okay ??At this time his only complaint is the pain. Review of Systems Constitutional:??No weight loss, fever, chills, weakness or fatigue. Eyes:??No visual loss, blurred vision, double vision or yellow sclera ENT:??No hearing loss, sneezing, congestion, runny nose or sore throat. Respiratory:??No shortness of breath, cough or sputum production. Cardiovascular:??No chest pain, chest pressure or chest discomfort. No palpitations or pedal edema. Gastrointestinal:??Reports mild abdominal pain around new hernia and constipation. No anorexia, nausea, vomiting or diarrhea. No blood in stool. Genitourinary:??No burning micturition. No urinary frequency or incontinence. Neurologic: Reports peripheral neuropathy. No headache, dizziness, syncope, unilateral weakness, ataxia, numbness or tingling in the extremities. No change in bowel or bladder control. Musculoskeletal:??No muscle pain, back pain, joint pain or stiffness. Hematologic/Lymphatics:??No bleeding or bruising. Skin:??Reports draining wound with increased swelling in left lower extremity and other chronic healed wounds on LE bilaterally. Psychiatric:??Hx of anxiety and Bipolar disorder Objective Vital Signs?? Temperature: 98.2 DegF (05/12/22 14:33:00) Temperature Route: Oral (05/12/22 14:33:00) Pulse Rate:??100 bpm??High (05/12/22 14:33:00) Respiratory Rate: 18 br/min (05/12/22 14:33:00) Systolic Blood Pressure: 119 mm Hg (05/12/22 14:33:00) Diastolic Blood Pressure: 76 mm Hg (05/12/22 14:33:00) Blood pressure sites: Arm, left (05/12/22 14:33:00) Mean Arterial Pressure: 95 mm Hg (05/12/22 04:19:00) Pulse Pressure: 43 mm Hg (05/12/22 14:33:00) Oxygen Saturation: 100 % (05/12/22 14:33:00) Mode of Delivery (Oxygen): Room air (05/12/22 14:33:00) ? Physical Exam Constitutional: Alert, in no distress. Mental Status: Oriented to person, place and time. Head: Normocephalic. Eyes: Pupils are equal, round and reactive to light. Extraocular muscles intact. Neck: Supple, Full range of motion. Respiratory: Slight expiratory wheezing in lower bases. Clear to auscultation. No rales or rhonchi. Cardiovascular: S1 S2 regular. No murmurs, rubs or gallops. Gastrointestinal: Abdomen soft, non-tender, non-distended. Normal bowel sounds. Small??protrusion above umbilicus. Neurologic: No focal neurological deficits. Moves all extremities spontaneously. Sensation intact bilaterally. Skin: Large venous ulcer on right lower extremity with yellow purulent discharge, with surrounding erythema and warm to touch. Hyperpigmentation bilaterally. 2+pitting edema to knee??bilaterally. Musculoskeletal: No cyanosis or clubbing. No gross deformities. Normal range of motion. Psychiatric: Calm and cooperative Assessment/Plan Assessment: 42 yo male with a history of Bipolar 1 disorder, anxiety,??substance abuse, chronic pain syndrome, venous stasis, asthma, COPD,??GERD, hypothyroidism presenting with a painful chronic venous ulcer. ?? Lower extremity cellulitis??(L03.90):?? Venous stasis (I87.8):??with venous stasis ulcer Ongoing chronic infected ulcer of left lower extremity. Increasing pain, not getting better despitebeing compliant with Keflex. No leukocytosis, lytes wnl. Vitals stable. Received IV Ancef in ED. Plan -Start vancomycin?? - MRSA risk given recent hospital stay and not getting better on PO Keflex -Pain control with 10mg oxycodone q4 hrs -Monitor for worsening erythema -Monitor hemodynamics -Trend CBC -Wound care consult -Should follow up outpatient with wound clinic -Continue home furosemide ?? Anxiety (F41.9):?? Bipolar 1 disorder (F31.9):??In ED was agitated rewiring Ativan, Xanax, and PO Haldol. Long hx of agitation and aggression. Not currently with a PCP or psychiatrist. Last hospital stay was d/c on newmeds??in addition??to the ones he already takes. States he is compliant. No SI or wanting to hurt others. States he actually feels okay -Continue home medications as prescribed ?? Asthma (J45.909): COPD without exacerbation (J44.9):??Not in exacerbation. No shortness of breath. Slight expiratory wheezing on exam. -Continue singular -Continue Breo in place of home inhaler -Continue albuterol prn ?? Chronic GERD (K21.9):??-Continue Omeprazole Hypothyroidism (E03.9):??-Continue Levothyroxine Substance abuse (F19.10):??-Denies daily alcohol consumption. States he hasn't drank in 6 months, but had 3 drinks on Wednesday for his birthday with his family. No drug use. Urinary retention: Continue home tamsulosin and bethanechol ?? Diet: Regular VTE Prophylaxis:??Lovenox Code Status:??Full Ongoing Medical Necessity:??IV abx Tobacco Use Treatment:??Refused Discharge Planning:??Pending workup above ?Anna Suarez PA-C ?? A face to face visit took place at the patient's bedside. I performed a history and physical examination of the patient and discussed their management with PA resident. I reviewed the AP resident note and agree with the documented findings and plan of care.?? Mary Santiago PA-C Histories Allergies Allergies ?(Active and Proposed Allergies Only) Thorazine? (Severity: Unknown severity, Onset: Unknown) traZODone? (Severity: Unknown severity, Onset: Unknown) ZyPREXA? (Severity: Unknown severity, Onset: Unknown) Zoloft? (Severity: Unknown severity, Onset: Unknown) ? Past Medical History/Problem List Active Problems??(9) Allergic rhinitis Asthma Bipolar disorder with depression Chronic pain syndrome COVID-19 Encounter for medication refill Generalized anxiety disorder GERD (gastroesophageal reflux disease) Hypothyroidism ? Past Surgical History Upper gastrointestinal endoscopy: 12/20/18 Herniotomy Appendectomy ? Social History Alcohol Details:??Use: Past. Details:??Use: Current. ??Frequency: 1-2 times per week. ??Type: Beer. Details:??Use: Past. ??Type: Beer. ??Alcohol use in household: Yes. Employment/School Details:??Status: Unemployed. Exercise Details:??Self assessment: Poor condition. Home/Environment Details:??Living situation: Home/Independent. ??Lives with: Mother. Other Details:??Name: Legal. ??Details: History of multiple incarcerations; not currently on probation. Substance Abuse Details:??Use: Current. ??Type: Marijuana. Details:??Use: Past. Details:??Use: Current. ??Type: Marijuana. ??Frequency: 1-2 times per month. Tobacco Details:??Use: 10 or more cigarettes (1/2 pack or more)/day in last 30 days. Details:??Use: 1PPD. Details:??Use: 10 or more cigarettes (1/2 pack or more)/day in last 30 days. ??Tobacco user in household: No. Electronic Cigarette/Vaping Details:??Electronic Cigarette Use: Never. ? Family History Mother: Anxiety; Asthma; COPD Father: Alcoholism ? Medications Home Medications Albuterol (Ventolin HFA 108 mcg/inh inhalation aerosol with adapter)?1?puff(s)?Inhalation?4 times a day?as needed?for wheezing Alprazolam (ALPRAZolam 1 mg oral tablet)?1?tab(s)?1?Milligram?By Mouth?3 times a day?as needed?as needed for anxiety?for 5?Days Aripiprazole (ARIPiprazole 30 mg oral tablet)?1?tab(s)?30?Milligram?By Mouth?Daily?for 14?Days Benztropine (benztropine 1 mg oral tablet)?1?Milligram?1?tablet?By Mouth?Daily?for 14?Days Bethanechol (bethanechol 25 mg oral tablet)?25?Milligram?1?tablet?By Mouth?3 times a day?for 7?Days BusPIRone (busPIRone 30 mg oral tablet)?1?tab(s)?30?Milligram?By Mouth?2 times a day?for 14?Days Cephalexin (cephalexin monohydrate 500 mg oral capsule)?1?capsule?500?Milligram?By Mouth?Every 6 hours?for 5?Days Cephalexin (cephalexin monohydrate 500 mg oral capsule)?1?capsule?500?Milligram?By Mouth?4 times a day?for 5?Days ChlorproMAZINE (chlorproMAZINE 50 mg oral tablet)?50?Milligram?By Mouth?Daily before lunch?for 14?Days ChlorproMAZINE (chlorproMAZINE 100 mg oral tablet)?100?Milligram?By Mouth?Daily at bedtime?for 14?Days ChlorproMAZINE (chlorproMAZINE 50 mg oral tablet)?1?tab(s)?50?Milligram?By Mouth?Daily in AM Clonidine (cloNIDine 0.2 mg oral tablet)?0.2?Milligram?1?tablet?By Mouth?2 times a day?for 10?Days Divalproex Sodium (divalproex sodium 500 mg oral enteric coated tablet)?1?tab(s)?500?Milligram?By Mouth?Daily in AM?for 14?Days Divalproex Sodium (divalproex sodium 500 mg oral enteric coated tablet)?2 tablets?By Mouth?Daily at bedtime?for 14?Days Docusate (docusate sodium 100 mg oral capsule)?100?Milligram?1?capsule?By Mouth?2times a day Escitalopram (escitalopram 10 mg oral tablet)?1?tab(s)?10?Milligram?By Mouth?Daily Escitalopram (escitalopram 10 mg oral tablet)?1?tab(s)?10?Milligram?By Mouth?Daily Fluticasone Nasal (fluticasone 50 mcg/inh nasal spray)?2?spray(s)?Nares, Both?Daily in AM Fluticasone-Salmeterol (Wixela Inhub 500 mcg-50 mcg inhalation powder)?1?inhalation?Inhalation?2 times a day?rinse mouth and throat after use Furosemide (furosemide 80 mg oral tablet)?80?Milligram?1?tablet?By Mouth?Daily Levothyroxine (levothyroxine 0.05 mg oral tablet)?1?tab(s)?50?Microgram?By Mouth?Daily?for 14?Days Methocarbamol (methocarbamol 750 mg oral tablet)?1?tab(s)?750?Milligram?By Mouth?3 times a day Montelukast (Singulair)?10?Milligram?By Mouth?Daily Omeprazole (omeprazole 40 mg oral enteric coated capsule)?1?capsule?40?Milligram?By Mouth?Daily Oxycodone (oxyCODONE 5 mg oral capsule)?1?capsule?5?Milligram?By Mouth?Every 4 hours?as needed?as needed for pain Pregabalin (pregabalin 200 mg oral capsule)?1?capsule?200?Milligram?By Mouth?2 times a day Tamsulosin (tamsulosin 0.4 mg oral capsule)?0.4?Milligram?1?capsule?By Mouth?Daily at bedtime Tizanidine (tiZANidine 4 mg oral capsule)?1?capsule?4?Milligram?By Mouth?3 times a day ? Results Recent Labs BLOOD COUNT & DIFF WBC 4.5 k/mm3 ()?? 05/11/2022 22:05 RBC 3.24 m/mm3 (Low)?? 05/11/2022 22:05 Hgb 8.0 Gm/dL (Low)?? 05/11/2022 22:05 Hct 26.6 % (Low)?? 05/11/2022 22:05 MCV 82.1 femtoliters ()?? 05/11/2022 22:05 MCH 24.7 pg (Low)?? 05/11/2022 22:05 MCHC 30.1 g/dL (Low)?? 05/11/2022 22:05 Platelet Count 231 k/mm3 ()?? 05/11/2022 22:05 RDW-SD 47.0 femtoliters (High)?? 05/11/2022 22:05 MPV 9.2 femtoliters (Low)?? 05/11/2022 22:05 Nucleated RBC (Automated) 0.0 #/100 WBC'S ()?? 05/11/2022 22:05 Abs. NRBC 0.0 k/mm3 ()?? 05/11/2022 22:05 Abs. Neut 2.8 k/mm3 ()?? 05/11/2022 22:05 Abs. Lymph 1.1 k/mm3 ()?? 05/11/2022 22:05 Abs. Kane 0.4 k/mm3 ()?? 05/11/2022 22:05 Abs. Eo 0.2 k/mm3 ()?? 05/11/2022 22:05 Abs. Baso 0.0 k/mm3 ()?? 05/11/2022 22:05 Neut % 61.7 % ()?? 05/11/2022 22:05 Lymph % 24.8 % ()?? 05/11/2022 22:05 Kane % 8.3 % ()?? 05/11/2022 22:05 Eos % 3.8 % ()?? 05/11/2022 22:05 Baso % 0.7 % ()?? 05/11/2022 22:05 Imm Gran 0.7 % ()?? 05/11/2022 22:05 Abs. Imm Gran 0.0 k/mm3 ()?? 05/11/2022 22:05 ?? CARDIAC High Sensitivity Troponin (HSTnT) 12 ng/L ()?? 05/12/2022 08:37 ?? CHEM GENERAL Sodium 141 mmol/L ()?? 05/11/2022 22:05 Potassium 4.3 mmol/L ()?? 05/11/2022 22:05 Chloride 100 mmol/L ()?? 05/11/2022 22:05 Bicarbonate Level 28 mmol/L ()?? 05/11/2022 22:05 Anion Gap 13 ()?? 05/11/2022 22:05 Glucose Level 74 mg/dL ()?? 05/11/2022 22:05 BUN 25 mg/dL (High)?? 05/11/2022 22:05 Creatinine-Blood 0.9 mg/dL ()?? 05/11/2022 22:05 Estimated GFR Creatinine 111 ML/MIN/1.73 M2 ()?? 05/11/2022 22:05 Calcium 8.8 mg/dL ()?? 05/11/2022 22:05 ?? HEME OTHER Hold Lavender Top SPECIMEN DISCARDED AFTER 24 HOURS. ()?? 05/12/2022 08:37 Hold Blue Top SPECIMEN DISCARDED AFTER 4 HOURS. ()?? 05/12/2022 08:37 ?? MISC. CHEMISTRY Hold Red Top SPECIMEN DISCARDED AFTER 1 WEEK ()?? 05/12/2022 08:37 Hold Gel Top SPECIMEN DISCARDED AFTER 1 WEEK ()?? 05/12/2022 08:37 ? Urinalysis?? No qualifying data available. ? EKG study * Event Display: ECG 12-Lead Authored Date: Please click on pdf link to open report * Event Display: ECG 12-Lead Authored Date: Ventricular Rate: 116 BPM Atrial Rate: 116 BPM P-R Interval: 156 ms QRS Duration: 86 ms Q-T Interval: 342 ms QTC Calculation(Bazett): 475 ms P Fargo: 57 degrees R Fargo: 7 degrees T Fargo: 63 degrees Sinus tachycardia Incomplete right bundle branch block Possible Left atrial enlargement Borderline ECG When compared with ECG of 03-MAY-2022 04:09, No significant change was found Confirmed by ARNEL HENDERSON, [facility] ([id number]) on 05/12/2022 6:41:40 PM [place] * Michelle Heath RN: VERIFY, PERFORM, SIGN Event Display: [facility] Authored Date: [id number] Patient: VAHID TO Age: 42 years Sex: Male : 1980 Associated Diagnoses: None Author: Michelle Heath RN Findings Narrative/Incidental Pt reqeusted Xanax prescription for home from Dr Chau.. Pt viewed outpt pharmacy meds prescribed anddate ordered. Pt aware no Xanax order. Encouraged use of other therapies then Xanax to aide with anxiety. ( I.E. acitivity such as walking when anxiety increases) pt receptive to teaching. He reportshe will continue to play guitar( music therapy) at home during increased anxiety feeldings. Dr Chau awrare of pt request for Xanax by pt and pt notified of Dr Chau's plan for NO Xanx prescription for home.. * Isac HENDERSON, Suzanne Rodrigues: PERFORM Event Display: Progress Note Hospital Authored Date: Patient: ??VAHID TO ? Age:??42 Years?Sex:??Male?:??1980?? Subjective Patient was seen by dietitian today regarding??low-sodium diet to prevent exacerbation of??lymphedema. ?? I also reach out to case management/BHN??to arrange outpatient psychiatric follow-up. ?? Per nursing staff, patient is able to??complete??wound care??under supervision. ??Patient is agreeable to continue wound care at home.?? We will provide the patient with a supply, pain medication andoral antibiotic??at the time discharge Review of Systems Eager to go home Lower extremity edema secondary??decreased The recurrent urinary retention No aggressive behavior No shortness of breath No chest pain No fever Objective Measurements?? Height: 186 cm (05/17/22) Weight: 130.8 kg (05/13/22) Dry Weight: 130.8 kg (05/13/22) Body Mass Index:??37.81 kg/m2??Critical (05/13/22) ? Vital Signs?? Temperature: 97.7 DegF (05/17/22 08:31:00) Temperature Route: Oral (05/17/22 08:31:00) Pulse Rate: 90 bpm (05/17/22 08:31:00) Respiratory Rate: 16 br/min (05/17/22 10:42:00) Systolic Blood Pressure: 138 mm Hg (05/17/22 08:31:00) Diastolic Blood Pressure: 79 mm Hg (05/17/22 08:31:00) Blood pressure sites: Arm, left (05/17/22 08:31:00) Mean Arterial Pressure: 99 mm Hg (05/17/22 08:31:00) Pulse Pressure: 59 mm Hg (05/17/22 08:31:00) Oxygen Saturation: 100 % (05/17/22 08:31:00) Mode of Delivery (Oxygen): Room air (05/17/22 08:31:00) Early Warning Score: 2 (05/17/22 10:42:27) ? Pain Scores 1 - 10 Pain Scale Score: 6 (07:22) Pain relief acceptable: Yes (07:22) ? Intake/Output? 05/12 13:05 05/17 07:00 03 07:00 05/15 07:00 03 07:00 ?? 05/17 12:18 03 12:18 0305 06:59 0304 06:59 0303 06:59 Intake ? 9785 ?240 ? 2230 ? 2400 ? 2460 Output ? 6350 ?0 ?650 ?600 ?0 Net Total ? 3435 ?240 ? 1580 ? 1800 ? 2460 ? Urine Count ? 27 ?1 ?8 ?7 ? 11 ? Precautions No Precautions documented.? Therapeutic Activity Therapeutic Activities/Mobility/Balance?? No qualifying data available. ? Physical Exam ?Gen; no acute respiratory distress, cooperating with exam, pale tall??gentleman ?HEENT; no facial asymmetry?Lungs; CATB ?Cardiac; RRR, no M/R/G ?Abdomen; soft nontender, nondistended, normal bowel sounds ?Extremity; bilateral dependent edema,??mild erythema.?? Left calf covered with dressing ?Neuro exam; alert oriented x3, CN 2-12 normal ? _ Inpatient Medications Medications (30) Active SCHEDULED: (21) Aripiprazole 15 mg Tablet (ARIPiprazole 15 mg oral tablet) ??30 mg, By Mouth, Daily Benztropine 1 mg Tablet (benztropine 1 mg oral tablet) ??1 mg, By Mouth, Daily Breo Ellipta 200 mcg / 25 mcg Inhaler (Breo Ellipta 200 mcg-25 mcg Inhaler) ??1 puffs, Inhalation, Daily BusPIRone 10 mg Tablet (busPIRone 10 mg oral tablet) ??30 mg, By Mouth, 2 times a day ChlorproMAZINE 50 mg Tablet (chlorproMAZINE 50 mg oral tablet) ??100 mg, By Mouth, Daily at bedtime ChlorproMAZINE 50 mg Tablet (chlorproMAZINE 50 mg oral tablet) ??50 mg, By Mouth, Daily in AM ChlorproMAZINE 50 mg Tablet (chlorproMAZINE 50 mg oral tablet) ??50 mg, By Mouth, Daily before lunch Clonidine 0.1 mg Tablet (cloNIDine 0.1 mg oral tablet) ??0.2 mg, By Mouth, 2 times a day Divalproex 250 mg Tablet (Depakote Tablet) ??500 mg, By Mouth, Daily in AM Divalproex 250 mg Tablet (Depakote Tablet) ??1,000 mg, By Mouth, Daily at bedtime Docusate Sodium 100 mg Capsule (docusate sodium 100 mg oral capsule) ??100 mg 1 capsule, By Mouth, 2 times a day Doxycycline 100 mg Tablet (Doxycycline Tablet) ??100 mg, By Mouth, 2 times a day Enoxaparin 40 mg Inj (Enoxaparin Inj) ??40 mg 0.4 mL, Subcutaneous Injection, Daily Escitalopram 10 mg Tablet (escitalopram 10 mg oral tablet) ??10 mg, By Mouth, Daily Fluticasone Propionate 50mcg/inh Nasal Peridot (fluticasone 50 mcg/inh nasal spray) ??100 mcg 2 sprays, Nares, Both, Daily in AM Furosemide 40 mg Tablet (furosemide 80 mg oral tablet) ??80 mg, By Mouth, Daily Levothyroxine 25 mcg Tablet (levothyroxine 0.025 mg oral tablet) ??50 mcg, By Mouth, Daily Metolazone 2.5 mg Tablet (metolazone 2.5 mg oral tablet) ??2.5 mg, By Mouth, Once Montelukast 10 mg Tablet (Singulair 10 mg oral tablet) ??10 mg, By Mouth, Daily Pantoprazole 40 mg EC Tablet (pantoprazole 40 mg oral delayed release tablet) ??40 mg, By Mouth, Daily Pregabalin 50 mg Capsule + Pregabalin 150 mg Capsule (pregabalin 50 mg oral capsule) ??200 mg, By Mouth, 2 times a day CONTINUOUS: (0) PRN: (9) Albuterol 90mcg/Inhalation Inhaler HFA (albuterol CFC free 90 mcg/inh inhalation aerosol) ??90 mcg 1 puffs, Inhalation, Every 4 hours Albuterol/Ipratropium Inhalation [place] 3mL (Duoneb Inhalation Solution) ??1 vials, BAND Nebulizer, Every 4 hours Alprazolam 0.5 mg Tablet (ALPRAZolam 0.5 mg oral tablet) ??1 mg, By Mouth, 3 times a day Calcium Carbonate 500 mg (Calcium 200 mg) Chewable Tablet (Tums 500 mg oral tablet, chewable) ??1,000 mg 2 tablet, Chew, Every 4 hours Dextromethorphan-Guaifenesin 20 mg-200 mg/10 mL Liqu UD (GuaiFENEsin /Dextromethorphan Liquid) ??10mL, By Mouth, Every 4 hours Ibuprofen 600 mg Tablet (ibuprofen 600 mg oral tablet) ??600 mg, By Mouth, Every 12 hours Nicotine 2 mg Gum (Nicotine Gum) ??2 mg, Chew, Every hour OxyCODONE 5 mg/Acetaminophen 325 mg Tablet (Percocet-5/325 325 mg-5 mg oral tablet) ??2 tablet, By Mouth, Every 4 hours Polyethylene Glycol 17 Gm Powder (MiraLax Powder) ??17 Gm 1 pack/packet, By Mouth, Daily ? 72 Hour Antibiotic History Stopped Antibiotics Stop Date/Time Last Administered First Administered Vancomycin??1,500 mg, 166.67 mL/hr, IVPB, Every 12 hours 05/17/2022 12:13 05/17/2022 06:09 05/12/2022 18:28 ? Results Recent Labs CHEM GENERAL Sodium 137 mmol/L ()?? 05/17/2022 05:32 Potassium 3.9 mmol/L ()?? 05/17/2022 05:32 Chloride 93 mmol/L (Low)?? 05/17/2022 05:32 Bicarbonate Level 31 mmol/L (High)?? 05/17/2022 05:32 Anion Gap 13 ()?? 05/17/2022 05:32 Creatinine-Blood 0.8 mg/dL ()?? 05/17/2022 05:32 Estimated GFR Creatinine 115 ML/MIN/1.73 M2 ()?? 05/17/2022 05:32 ?? HEME OTHER Hold Lavender Top SPECIMEN DISCARDED AFTER 24 HOURS. ()?? 05/17/2022 05:32 ? Assessment/Plan Diagnoses Acquired lymphedema ??(I89.0) Anxiety ??(F41.9) Asthma ??(J45.909) Bipolar 1 disorder ??(F31.9) COPD without exacerbation ??(J44.9) Cellulitis ??(L03.90) Chronic GERD ??(K21.9) Hypothyroidism ??(E03.9) Normocytic anemia ??(D64.9) Polypharmacy ??(Z79.899) Severe obesity (BMI 35.0-39.9) with comorbidity ??(E66.01) Substance abuse ??(F19.10) Urinary retention ??(R33.9) Venous stasis ??(I87.8) ?? Assessment:??This is a 50 years old gentleman with morbid obesity,??bipolar disease??hypothyroidism??and chronic lymphedema and venous stasis.??Patient is hospitalized for bilateral venous ulcer??andcellulitis ?? Venous stasis (I87.8):??: ?? Acquired lymphedema (I89.0):??: ?? Severe obesity (BMI 35.0-39.9) with comorbidity (E66.01):??: ?? Cellulitis (L03.90):??Care plan discussed with nursing staff and patient at bedside.??I discussed importance??of compliance with low-sodium diet and also obtained??dietary consultation.??I also discussed??the plan??with nursing staff??to teach??him apply dressing and wound care on daily basis.?Due to his psychiatric illness,??prior history of aggressive behavior, no VNA services??can be provided??at a time discharge.?Encourage patient to lose weight.?In addition to Lasix 80 mg, patientreceived??2 dose of metolazone, responded well,??leg edema significant decreased.?Patient was also seen by dietitian??on May 17??for low-sodium diet education.?Under supervision of nursing staff, patient is able to??complete??his wound care.??He shows interest??to??go home. Plan Low-sodium diet Fluid restriction Encourage patient to??keep??his leg elevated??at a sitting position Discontinue IV vancomycin, start patient on oral doxycycline for additional??3 days Continue Lasix 80 mg daily,??add??3nd dose of metolazone??2.5 mg??to reduce leg edema,??patient also received??40 mg of potassium Continue wound care??twice daily,??encourage patient??to do dressing changes by himself supervised by nursing staff Discharge planning.?Due to his significant pre-existing psychiatric illness,??I requested N tosee him and also reach out to [facility] to arrange patient to have outpatient??psychiatric follow-up ?? Normocytic anemia (D64.9):??Patient is noted to have??normocytic anemia. Rule out iron deficiency, B12, folate??acid deficiency.??Patient complained of intermittent rectal bleeding??but denies??blacktarry stool??or melena.??No longer use NSAIDs on a regular basis.??Case discussed with Dr. Jimenez from GI services. We will arrange patient palpation??GI follow-up for colonoscopy and EGD ?? Anxiety (F41.9):??: ?? Bipolar 1 disorder (F31.9):??Continue home medications??including Depakote,??aripiprazole,??buspirone, chlorpromazine??and escitalopram.?Patient will definitely need outpatient??psychiatric follow- up??to prevent further complication ?? Asthma (J45.909):??: ?? COPD without exacerbation (J44.9):??Respiratory status stable.?Continue??home medications ?? Chronic GERD (K21.9):??Continue PPI ?? Hypothyroidism (E03.9):??Continue Synthroid ?? Polypharmacy (Z79.899):??Patient has been on 2??muscle relaxant??in the past, developed complication of urinary retention. I discontinued??tizanidine??and??methocarbamol ?? Urinary retention (R33.9):??Known for urinary retention in the past??likely due to??overuse of muscle relaxants.?I discontinued??multiple muscle relaxant??and also discontinued cholinergic medication??bethanechol. ?? VTE Prophylaxis:??Lovenox ?VTE Prophylaxis Assessment:??VTE Prophylaxis Ordered ?? Ongoing Medical Necessity:??Severe lymphedema, cellulitis,??pre-existing bipolar??disease ?? Discharge Planning:??In progress, anticipate discharge home with??psychiatric follow-up??tomorrow ?? Billing code 19965; total preparation time 35 minutes with time spent at the bedside, time spent coordinating care with CM, nursing staff, consultants??(including dietitian,??case management??and N), review medical record and diagnostics testing, medication reconciliation, discontinue??cholinergic medication as well as multiple??muscle relaxant. ? This documentation was prepared using the [employer] voice recognition system. Please forgive any typographical, punctuation or contextual errors.? * Zahraa Smith RN: MODIFY, SIGN, VERIFY, PERFORM Event Display: Progress Note Hospital Authored Date: [id number] Patient: VAHID TO Age: 42 years Sex: Male : 1980 Associated Diagnoses: None Author: Zahraa Smith RN 7p-7a: Pt initially non-compliant with BLE wound care despite multiple attempt of education as Pt kept taking wound dressings off. Provided with PRN oxycodone and PRN alprazolam as ordered. Pt ambulating in hallways with no complaint of worsening BLE pain. Limits set, Pt did not have aggressive behaviors tonight. 0630- Patient was able to demonstrate and apply ordered wound management over BLE. Call clark within reach. Findings Problem Related to Alteration in Comfort : Alteration in Comfort/new 05/16/2022 20:00 EST Alteration in Comfort Related to Disease process Goals & Outcomes: Comfort Pt will report acceptable level of comfort & pain control Interventions Implemented: Comfort Assess pain using appropriate pain scale/tools, Assess aggravating factors & prevent them accordingly, Assess alleviating factors & promote them accordingly Goals/Interventions, Comfort Yes Comfort, Problem Start 05/16/2022 17:49 Reviewed plan with, Comfort Patient Patient Progression, Comfort Pt progressing according to plan Comfort, Problem Ongoing Yes . Alteration in Integumentary : Alteration in Integumentary/new 05/16/2022 20:00 EST Alteration in Integumentary Related to Cellulitis Goals & Outcomes, Integumentary Wound will progress towards healing Interventions, Integumentary Teach Pt/S.O. risks of & measures to prevent skin breakdown Goals/Interventions, Integumentary Yes Integumentary, Problem Start 05/13/2022 13:47 Reviewed plan with, Integumentary Patient Patient Progression, Integumentary Pt progressing according to plan . Discharge Information Case Management Discharge Plan : Case Management Discharge Plan Data 05/12/2022 0:52 EST Discharge Level of Care at Discharge Home/Snf/Foster Care Note * Tammie Fierro RN: PERFORM Event Display: Discharge/Transfer Note Hospital Authored Date: [id number] Nursing Discharge Note Entered On: 05/17/2022 15:15 EST Performed On: 05/17/2022 15:15 EST by Tammie Fierro RN Nursing Discharge Note 2 Discharge Time : 05/17/2022 15:15 EST Discharge Level of Care at Discharge : Home/Snf/Foster Care Patient Left Unit Via : Ambulatory Patient Accompanied Off Unit with : Responsible adult DC Instructions Provided & Signed by Pt : Yes Patient Understands D/C Instructions : Yes Patient Instructions Discharge Signed : Yes Did Pt have Specialty Bed or Wound Vac : Lorelei Fierro RN, Tammie - 05/17/2022 15:15 EST * Isac HENDERSON, Suzanne Rodrigues: PERFORM Event Display: Discharge/Transfer Note Hospital Authored Date: [id number] Patient: ??VAHID TO ? Age:??42 Years?Sex:??Male?:??1980?? Patient Information Discharge Location: Med Surg Primary Care Physician: Not on Staff, PCP Admit Date/Time: 05/12/22 13:05 Discharge Disposition Discharge Disposition: ?? Discharge Diagnosis Venous stasis (I87.8) Acquired lymphedema (I89.0) Severe obesity (BMI 35.0-39.9) with comorbidity (E66.01) Cellulitis (L03.90) Normocytic anemia (D64.9) Anxiety (F41.9) Bipolar 1 disorder (F31.9) Asthma (J45.909) COPD without exacerbation (J44.9) Chronic GERD (K21.9) Hypothyroidism (E03.9) Polypharmacy (Z79.899) Urinary retention (R33.9) Substance abuse (F19.10) Bipolar disorder with depression Chronic pain syndrome GERD (gastroesophageal reflux disease) Generalized anxiety disorder ?? _ Discharge Medications Albuterol (Ventolin HFA 108 mcg/inh inhalation aerosol with adapter)?1?puff(s)?Inhalation?4 times a day?as needed?for wheezing Aripiprazole (ARIPiprazole 30 mg oral tablet)?1?tab(s)?30?Milligram?By Mouth?Daily?for 14?Days Benztropine (benztropine 1 mg oral tablet)?1?Milligram?1?tablet?By Mouth?Daily?for 14?Days BusPIRone (busPIRone 30 mg oral tablet)?1?tab(s)?30?Milligram?By Mouth?2 times a day?for 14?Days ChlorproMAZINE (chlorproMAZINE 50 mg oral tablet)?50?Milligram?By Mouth?Daily before lunch?for 14?Days ChlorproMAZINE (chlorproMAZINE 100 mg oral tablet)?100?Milligram?By Mouth?Daily at bedtime?for 14?Days ChlorproMAZINE (chlorproMAZINE 50 mg oral tablet)?1?tab(s)?50?Milligram?By Mouth?Daily in AM Clonidine (cloNIDine 0.2 mg oral tablet)?0.2?Milligram?1?tablet?By Mouth?2 times a day?for 10?Days Divalproex Sodium (divalproex sodium 500 mg oral enteric coated tablet)?1?tab(s)?500?Milligram?By Mouth?Daily in AM?for 14?Days Divalproex Sodium (divalproex sodium 500 mg oral enteric coated tablet)?2 tablets?By Mouth?Daily at bedtime?for 14?Days Docusate (docusate sodium 100 mg oral capsule)?100?Milligram?1?capsule?By Mouth?2times a day Doxycycline (doxycycline hyclate 100 mg oral capsule)?1?capsule?100?Milligram?By Mouth?2 times a day?for 3?Days?may take with food to minimize abdominal discomfort Escitalopram (escitalopram 10 mg oral tablet)?1?tab(s)?10?Milligram?By Mouth?Daily Fluticasone Nasal (fluticasone 50 mcg/inh nasal spray)?2?spray(s)?Nares, Both?Daily in AM Fluticasone-Salmeterol (Wixela Inhub 500 mcg-50 mcg inhalation powder)?1?inhalation?Inhalation?2 times a day?rinse mouth and throat after use Furosemide (furosemide 80 mg oral tablet)?80?Milligram?1?tablet?By Mouth?Daily Levothyroxine (levothyroxine 0.05 mg oral tablet)?1?tab(s)?50?Microgram?By Mouth?Daily?for 14?Days Montelukast (Singulair)?10?Milligram?By Mouth?Daily Omeprazole (omeprazole 40 mg oral enteric coated capsule)?1?capsule?40?Milligram?By Mouth?Daily Oxycodone (oxyCODONE 5 mg oral tablet)?2.5?Milligram?0.5?tablet?By Mouth?2 times a day?as needed?for 3?Days?as needed for pain Pregabalin (pregabalin 200 mg oral capsule)?1?capsule?200?Milligram?By Mouth?2 times a day Tamsulosin (tamsulosin 0.4 mg oral capsule)?0.4?Milligram?1?capsule?By Mouth?Daily at bedtime ? Quality Measures Tobacco Use Treatment:? Medications Started Oxycodone??2.5 mg twice daily Doxycycline Medications Discontinued Bethanechol,??tizanidine, methocarbamol Allergies Allergies ?(Active and Proposed Allergies Only) Thorazine? (Severity: Unknown severity, Onset: Unknown) traZODone? (Severity: Unknown severity, Onset: Unknown) ZyPREXA? (Severity: Unknown severity, Onset: Unknown) Zoloft? (Severity: Unknown severity, Onset: Unknown) ? PCP Follow-Up/Heads-Up Please refer patient to??lymphedema clinic for management Hospital Course Worsening LE pain and wound History of Present Illness 42 yo male with a history of Bipolar 1 disorder, anxiety,??substance abuse, chronic pain syndrome, venous stasis, asthma, COPD,??GERD, hypothyroidism presenting with a painful chronic venous ulcer. He was recently d/c from the hospital on 05/08??with a stay complicated by bleeding varicose vein rupture after pt picked on it and??lower extremity swelling and infection of chronic venous ulcer d/c onKeflex. Negative for DVT.??He has a history of agitation and aggression and was seen by [facility] and was d/c on new medications. He came back to the ED on 05/11/22 for worsening lower extremity pain andincreasing discharge from??his chronic??ulcer. was d/c from ED with 5 days extension of Keflex. Retu rned to the ED this morning with unbearable pain to the left lower extremity and worsening discharge. He denies fever and chills. ?? In the ED, he was tachycardic to 100, all other vitals stable. Labs from last night showed no leukocytosis, H/H of 11/07.6, platelet 231, lytes wnl, kidney function stable, troponin 12. EKG NSR, Qtc 478.??Was very agitated and received Ativan, Xanax, oxycodone 10mg, and PO Haldol and moved to psych section of the ED. Keflex stopped and 2g Cefazolin was given. ?? Upon initial evaluation, patient was calm and cooperative. Was complaining about pain in his??left leg where the ulcer is. States oxycodone is working well for him. States it is not getting better, has more purulent drainage, and looks more red to him. Initially had chest pain, shortness of breath,and palpitations upon arrival to the ED, which he says was his anxiety and has gone away completely since receiving Xanax. Of note, psych d/c him with new medications on his last visit. pt says he iscompliant, but tried telling me his dosage has increased on some medications, but not able to confirm who increased dosing since being d/c from hospital on 05/08. No SI or wanting to hurt others. States he actually feels okay ??At this time his only complaint is the pain. [1] Objective Assessment and Plan Assessment:??This is a 50 years old gentleman with morbid obesity,??bipolar disease??hypothyroidism??and chronic lymphedema and venous stasis.??Patient is hospitalized for bilateral venous ulcer??andcellulitis ?? Venous stasis (I87.8):??: ?? Acquired lymphedema (I89.0):??: ?? Severe obesity (BMI 35.0-39.9) with comorbidity (E66.01):??: ?? Cellulitis (L03.90):??During his hospitalization, patient received IV vancomycin, seen by surgery for wound care.??While in the hospital??care plan discussed with nursing staff and patient at bedside.??I discussed importance??of compliance with low-sodium diet??.??I also discussed??the plan??with nursing staff??to teach??him apply dressing and wound care on daily basis.?Due to his psychiatric illness,??prior history of aggressive behavior, no VNA services??can be provided??at a time discharge.?Encourage patient to lose weight.?In addition to Lasix 80 mg, patient received??3 dose of metolazone, responded well,??leg edema significant decreased.?Patient was also seen by dietitian??on May 17??for low-sodium diet education.?Under supervision of nursing staff, patient is able to??complete??his wound care.?? Plan Low-sodium diet Fluid restriction??2 L/day Encourage patient to??keep??his leg elevated??at a sitting position Continue??doxycycline for additional??3 days Continue Lasix 80 mg daily Continue wound care??twice daily,??encourage patient??to do dressing changes by himself supervised by nursing staff Discharge planning.?Due to his significant pre-existing psychiatric illness,??I requested BHN tosee him and also reach out to [facility] via CM??to arrange patient to have outpatient??psychiatric follow-up.?Patient was last discharged on??April??,??patient has a 14-day supply of psychiatric m edication at home. Due to patient's??violent behavior??during prior hospitalization,??not able to convince patient??tostay in hospital??to secure outpatient psychiatric follow-up. Encourage patient to follow-up with his PCP,??referral to??lymphedema clinic??for further management ?? Normocytic anemia (D64.9):??Patient is noted to have??normocytic anemia. Rule out iron deficiency, B12, folate??acid deficiency.??Patient complained of intermittent rectal bleeding??but denies??blacktarry stool??or melena.??No longer use NSAIDs on a regular basis.??Case discussed with Dr. Jimenez from GI services. We will arrange patient palpation??GI follow-up for colonoscopy and EGD ?? Anxiety (F41.9):??: ?? Bipolar 1 disorder (F31.9):??Continue home medications??including Depakote,??aripiprazole,??buspirone, chlorpromazine.?Patient will definitely need outpatient??psychiatric follow-up??to prevent further complication. ?? Asthma (J45.909):??: ?? COPD without exacerbation (J44.9):??Respiratory status stable.?Continue??home medications ?? Chronic GERD (K21.9):??Continue PPI ?? Hypothyroidism (E03.9):??Continue Synthroid ?? Polypharmacy (Z79.899):??Patient has been on 2??muscle relaxant??in the past, developed complication of urinary retention. I discontinued??tizanidine??and??methocarbamol ?? Urinary retention (R33.9):??Known for urinary retention in the past??likely due to??overuse of muscle relaxants.?I discontinued??multiple muscle relaxant??and also discontinued cholinergic medication??bethanechol.?This was discussed with patient in detail prior to discharge ?? Discharge Planning:? Measurements?? Height: 186 cm (05/17/22) Weight: 130.8 kg (05/13/22) Dry Weight: 130.8 kg (05/13/22) Body Mass Index:??37.81 kg/m2??Critical (05/13/22) ? Vital Signs?? Temperature: 97.7 DegF (05/17/22 08:31:00) Temperature Route: Oral (05/17/22 08:31:00) Pulse Rate: 90 bpm (05/17/22 08:31:00) Respiratory Rate:??14 br/min??Low (05/17/22 13:33:00) Systolic Blood Pressure: 138 mm Hg (05/17/22 08:31:00) Diastolic Blood Pressure: 79 mm Hg (05/17/22 08:31:00) Blood pressure sites: Arm, left (05/17/22 08:31:00) Mean Arterial Pressure: 99 mm Hg (05/17/22 08:31:00) Pulse Pressure: 59 mm Hg (05/17/22 08:31:00) Oxygen Saturation: 100 % (05/17/22 08:31:00) Mode of Delivery (Oxygen): Room air (05/17/22 08:31:00) Early Warning Score: 2 (05/17/22 13:33:59) ? Precautions No Precautions documented.? Mobility & Ambulation Level Mobility & Ambulation Level Activity Assistance: Independent (05/17/22) Activity Status ADL: Ambulating in room, Bathroom privileges (05/17/22) Ambulatory devices needed: None (05/17/22) Repositioning: Self (05/15/22) ?? Therapeutic Activity Therapeutic Activities/Mobility/Balance?? No qualifying data available. ?? . Physical Exam ?Gen; no acute respiratory distress, cooperating with exam, pale tall??gentleman ?HEENT; no facial asymmetry?Lungs; CATB ?Cardiac; RRR, no M/R/G ?Abdomen; soft nontender, nondistended, normal bowel sounds ?Extremity; bilateral dependent edema,??mild erythema.?? Left calf covered with dressing ?Neuro exam; alert oriented x3, CN 2-12 normal Pending Results Add On Lab Order ordered on 05/13/2022 Add On Lab Order ordered on 05/15/2022 Add On Lab Order ordered on 05/15/2022 Add On Lab Order ordered on 05/17/2022 COVID-19 (2019 Novel Coronavirus) PCR ordered on 05/14/2022 Creatinine ordered on 05/17/2022 Patient Education Titles Lymphedema?? Anemia?? Follow-Up Appointments Added Follow Up ?Time Frame ?Comments Soto RAMIREZ MD, Bal Serrano?1 to 2 weeks Post Discharge Care Wound Care: Wound Site: LLE ??Would apply Xeroform to left lower extremity ulcersApply ABD and Kerlix wrap over the Xeroform, change on a daily basisKeep legs elevated when possible ??Daily ??Yes Discharge ?05/17/22 14:28:00 EST Discharge Prescriptions ?ePrescribed, ??05/17/22 14:28:00 EST Home Health Face to Face ^HomeHealthFTF Results Discharge Labs BLOOD BANK Blood Type O Positive ()?? 05/13/2022 08:19 Antibody Screen Negative ()?? 05/13/2022 08:19 RBC Unit ID [id number] ()?? 05/13/2022 11:06 RBC Available PT ()?? 05/13/2022 11:06 ?? BLOOD COUNT & DIFF WBC 5.2 k/mm3 ()?? 05/15/2022 04:51 RBC 3.01 m/mm3 (Low)?? 05/15/2022 04:51 Hgb 7.3 Gm/dL (Low)?? 05/15/2022 04:51 Hct 24.1 % (Low)?? 05/15/2022 04:51 MCV 80.1 femtoliters ()?? 05/15/2022 04:51 MCH 24.3 pg (Low)?? 05/15/2022 04:51 MCHC 30.3 g/dL (Low)?? 05/15/2022 04:51 Platelet Count 174 k/mm3 ()?? 05/15/2022 04:51 RDW-SD 46.6 femtoliters ()?? 05/15/2022 04:51 MPV 9.9 femtoliters ()?? 05/15/2022 04:51 Nucleated RBC (Automated) 0.0 #/100 WBC'S ()?? 05/15/2022 04:51 Abs. NRBC 0.0 k/mm3 ()?? 05/15/2022 04:51 ?? CARDIAC High Sensitivity Troponin (HSTnT) 11 ng/L ()?? 05/13/2022 00:01 ? CHEM GENERAL Sodium 137 mmol/L ()?? 05/17/2022 05:32 Potassium 3.9 mmol/L ()?? 05/17/2022 05:32 Chloride 93 mmol/L (Low)?? 05/17/2022 05:32 Bicarbonate Level 31 mmol/L (High)?? 05/17/2022 05:32 Anion Gap 13 ()?? 05/17/2022 05:32 Glucose Level 90 mg/dL ()?? 05/13/2022 05:34 BUN 12 mg/dL ()?? 05/15/2022 04:51 Creatinine-Blood 0.8 mg/dL ()?? 05/17/2022 05:32 Estimated GFR Creatinine 115 ML/MIN/1.73 M2 ()?? 05/17/2022 05:32 Calcium 8.7 mg/dL ()?? 05/13/2022 05:34 Magnesium 2.1 mg/dL ()?? 05/15/2022 04:51 Vitamin B12 Level 707 pg/mL ()?? 05/12/2022 08:37 Folic Acid Level 9.2 ng/mL ()?? 05/12/2022 08:37 Iron Level 15 mcg/dL (Low)?? 05/15/2022 04:51 Iron Binding Capacity, Unsaturated 350 mcg/dL ()?? 05/15/2022 04:51 Iron Binding Capacity, Estimated Total 365 mcg/dL ()?? 05/15/2022 04:51 % Iron Saturation 4 % (Low)?? 05/15/2022 04:51 Ferritin Level 36 ng/mL ()?? 05/15/2022 04:51 C-Reactive Protein 5.8 mg/dL (High)?? 05/15/2022 04:51 ? COAG D-Dimer 1.38 mg/L FEU (High)?? 05/15/2022 04:51 ? HEME OTHER Hold Lavender Top SPECIMEN DISCARDED AFTER 24 HOURS. ()?? 05/17/2022 05:32 Hold Blue Top SPECIMEN DISCARDED AFTER 4 HOURS. ()?? 05/12/2022 08:37 ?? MISC. CHEMISTRY Hold Green Top SPECIMEN DISCARDED AFTER 1 WEEK ()?? 05/14/2022 05:57 Hold Red Top SPECIMEN DISCARDED AFTER 1 WEEK ()?? 05/12/2022 08:37 Hold Gel Top SPECIMEN DISCARDED AFTER 1 WEEK ()?? 05/15/2022 04:51 ? TOXICOLOGY/TDM Vancomycin Level, Trough 10.6 mg/L ()?? 05/15/2022 04:51 ? VIROLOGY COVID-19 PCR Specimen Source NASAL ()?? 05/12/2022 14:05 COVID-19 PCR Result NEGATIVE ()?? 05/12/2022 14:05 ? Imaging(s) ?Other Image ?Lower extremity??ultrasound with Doppler??on??April??, no DVT ? 65 minutes spent on discharge Discharge code 26581; this discharge preparation with time spent at the bedside, coordinating care with consulting physicians, transition care as well as performing [id number] documentation/patienteducation. This documentation was prepared using the [employer] voice recognition system. Please forgive any typographical, punctuation or contextual errors. ?? [1]??Initial Evaluation Note; Mary Fuentes 05/12/2022 16:06 EST * Kacy Vivar: PERFORM Event Display: Discharge/Transfer Note Hospital Authored Date: [id number] Discharge Planning Nursing Entered On: 05/17/2022 15:42 EST Performed On: 05/17/2022 9:00 EST by Kacy Vivar Discharge Planning Nursing Anticipated discharge : Home Kacy Vivar - 05/17/2022 15:42 EST Indicator(s) for VNA/Home Care Services New/changed/complex medication regime Wound care / Colostomy care needed : Yes Kacy Vivar - 05/17/2022 15:42 EST * Vadim VALENTINE, Tammie: PERFORM Event Display: Patient Education/Instruction Authored Date: [id number] Inpatient Adult Discharge Instructions [address] [address] Name: VAHID TO : 1980 Visit: 05/12/2022 13:05:00 Current Date: 05/17/2022 14:52 Account: [id number] Inpatient Adult Discharge Instructions We would like to thank you for allowing us to assist you with your healthcare needs. The following includes patient education materials and information regarding your injury/illness. Our entire staffstrives to provide an excellent experience for our patients and their families. PLEASE ENSURE YOU FOLLOW-UP PER THE INSTRUCTIONS BELOW! ?? YOUR OPINION IS IMPORTANT TO US! Please complete the survey you may receive by mail or email. Your feedback will be used to make improvements to the healthcare experiences of our patients and their families. Surveys are administered by [employer] ?? If further treatment with your primary care physician or another doctor is recommended, it is important for you to keep the appointment. Call your primary care physician or return to the Emergency Department immediately if your condition worsens, fails to improve, or new symptoms develop. If you need to find a doctor, you can call [facility] for a referral at [phone] or toll free at [phone]) or log in to [email or web address].. ?? You can view and manage your care through the patient portal or by using a health care alden of your choosing. [facility] is a website that allows you to securely view your medical information including your hospital discharge summary, office visit summaries, medications and follow-up visits. You can also request appointments, renew medications, and request access to your medical information using a health care alden of your choosing, or just ask a question. You can enroll at [email or web address] or register during your next office visit. You have been discharged from [facility], Patient Care Unit: Med Surg. If you have any questions regarding these instructions after you leave, please call us and we will be happy to assist you. [facility] Your Care Team Attending Physician Suzanne Chau MD Consulting Providers Cassandra Call DO Discharging Providers Suzanne Chau MD Reason for Admission Lower leg pain-swelling Your Diagnosis Bipolar 1 disorder Anxiety Chronic GERD Venous stasis Asthma COPD without exacerbation Hypothyroidism Substance abuse Cellulitis Severe obesity (BMI 35.0-39.9) with comorbidity Acquired lymphedema Normocytic anemia Polypharmacy Urinary retention Tests Performed Below is a partial list of the tests performed during your hospitalization. You may have had other tests and procedures not included in this list. Please discuss all test results with your provider. BUN C-REACTIVE PROTEIN Calcium Level CBC COVID-19 (2019 Novel Coronavirus) PCR?-- Results Pending -- D Dimer ELECTROLYTES FERRITIN FOLIC ACID Glucose Level H + H HOLD BLUE TUBE HOLD GEL TUBE HOLD GREEN TUBE HOLD LAVENDER TUBE HOLD RED TUBE IRON & TIBC Magnesium Level Troponin T, High Sensitivity Type and Screen VANC-TROUGH VITAMIN B12 ? You will be contacted within 72 hours with your results. Primary Care Provider Not on Staff, PCP Advance Directive Health Care Proxy on File Yes - Health Care Proxy Discharge Vitals Temperature: 97.7 DegF Height: 186 cm Pulse Rate: 90 bpm Weight: 130.8 kg Respiratory Rate:??14 br/min??Low Body Mass Index:??37.81 kg/m2??Critical Systolic Blood Pressure: 138 mm Hg Body surface area: 2.6 Diastolic Blood Pressure: 79 mm Hg ?? Oxygen Saturation: 100 % ?? Studies Pending All tests and labs ordered during this hospital stay have been completed unless listed below. Please discuss all pending results with your provider listed above in these instructions. ?? Add On Lab Order COVID-19 (2019 Novel Coronavirus) PCR Creatinine What to do next Instructions From Your Doctor ?? -Continue low-salt diet, activity as tolerated -Please elevating your leg??at a sitting position -Please change dressing??twice daily -Please continue medications as prescribed, follow-up with PCP in 1??weeks -[facility]??gastroenterology clinic??will contact you??for follow-up Discharge Orders Wound Care:??Wound Site: LLE Would apply Xeroform to left lower extremity ulcers Apply ABD and Kerlix wrap over the Xeroform, change on a daily basis Keep legs elevated when possible Daily Yes You Need to Schedule the Following Appointments Follow Up with??Soto RAMIREZ MD, Bal Serrano When??Within 1 to 2 weeks Where: [address] [place] [phone]- Discharge Medications VAHID TO :1980 Visit Date:05/12/2022 Medications: Please continue your medications until treatment is completed or stopped by your provider. Medications not listed below should be discontinued. Discuss any questions related to medications with your provider. What How Much When Instructions Next Dose New Doxycycline (doxycycline hyclate 100 mg oral capsule) 1 capsule Oral Twice a day Duration: 3 Days may take with food to minimize abdominal discomfort ?? Pickup at [facility] #[id number] Tonight 9PM Changed Escitalopram (escitalopram 10 mg oral tablet) 1 tab(s) Oral Daily Tomorrow Changed Oxycodone (oxyCODONE 5 mg oral tablet) 0.5 tab(s) Oral Twice a day as needed for as needed for pain Duration: 3 Days Pickup at [facility] #[id number] Last given 05/17/22 1:30 Unchanged Albuterol (Ventolin HFA 108 mcg/ inh inhalation aerosol with adapter) 1 puff(s) Inhalation 4 times a day as needed for for wheezing as needed Unchanged Aripiprazole (ARIPiprazole 30 mg oral tablet) 1 tab(s) Oral Daily Duration: 14 Days Tomorrow Unchanged Benztropine (benztropine 1 mg oral tablet) 1 tab(s) Oral Daily Duration: 14 Days Tomorrow Unchanged BusPIRone (busPIRone 30 mg oral tablet) 1 tab(s) Oral Twice a day Duration: 14 Days Tonight 9PM Unchanged ChlorproMAZINE (chlorproMAZINE 100 mg oral tablet) 100 Milligram Oral Daily at Bedtime Duration: 14 Days Tonight 9PM Unchanged ChlorproMAZINE (chlorproMAZINE 50 mg oral tablet) 1 tab(s) Oral Daily in the morning Tomorrow Unchanged ChlorproMAZINE (chlorproMAZINE 50 mg oral tablet) 50 Milligram Oral Daily before lunch Duration: 14 Days Tomorrow Unchanged Clonidine (cloNIDine 0.2 mg oral tablet) 1 tab(s) Oral Twice a day Duration: 10 Days Tonight 9PM Unchanged Divalproex Sodium (divalproex sodium 500 mg oral enteric coated tablet) 2 tablets Oral Daily at Bedtime Duration: 14 Days Tonight 9PM Unchanged Divalproex Sodium (divalproex sodium 500 mg oral enteric coated tablet) 1 tab(s) Oral Daily in the morning Duration: 14 Days Tomorrow Unchanged Docusate (docusate sodium 100 mg oral capsule) 1 capsule Oral Twice a day Tonight 9PM Unchanged Fluticasone Nasal (fluticasone 50 mcg/ inh nasal spray) 2 spray(s) Nares, Both Daily in the morning Tomorrow Unchanged Fluticasone-Salmeterol (Wixela Inhub 500 mcg-50 mcg inhalation powder) 1 inhalation Inhalation Twice a day rinse mouth and throat after use ?? Tonight 9PM Unchanged Furosemide (furosemide 80 mg oral tablet) 1 tab(s) Oral Daily Tomorrow Unchanged Levothyroxine (levothyroxine 0.05 mg oral tablet) 1 tab(s) Oral Daily Duration: 14 Days Tomorrow Unchanged Montelukast (Singulair) 10 Milligram Oral Daily Tomorrow Unchanged Omeprazole (omeprazole 40 mg oral enteric coated capsule) 1 capsule Oral Daily Tomorrow Unchanged Pregabalin (pregabalin 200 mg oral capsule) 1 capsule Oral Twice a day Tonight 9PM Unchanged Tamsulosin (tamsulosin 0.4 mg oral capsule) 1 capsule Oral Daily at Bedtime Tonight 9PM Pharmacy Information [facility] #[id number]: [address], [place] [id number] [phone] ?? What How Much When Comments Stop Taking Bethanechol (bethanechol 25 mg oral tablet) 1 tab(s) Oral 3 times a day Duration: 7 Days Stop Taking Codeine Oral Every 4 hours Stop Taking Methocarbamol (methocarbamol 750 mg oral tablet) 1 tab(s) Oral 3 times a day Stop Taking Tizanidine (tiZANidine 4 mg oral capsule) 1 capsule Oral 3 times a day Test Results Below is a partial list of the most recent Laboratory test results done prior to this discharge. You may have had other tests and procedures not included in this list. Please discuss all test resultswith your provider. RBC Available - PT (05/13/2022) RBC Unit ID - [id number] (05/13/2022) BUN (05/15/2022) ???BUN - 12 mg/dL C-REACTIVE PROTEIN (05/15/2022) ???C-Reactive Protein - 5.8 mg/dL Calcium Level (05/13/2022) ???Calcium - 8.7 mg/dL CBC (05/15/2022) ???WBC - 5.2 k/mm3???RBC - 3.01 m/mm3???Hgb - 7.3 Gm/dL???Hct - 24.1 %???MCV - 80.1 femtoliters???MCH - 24.3 pg???MCHC - 30.3 g/dL???Platelet Count - 174 k/mm3???RDW-SD - 46.6 femtoliters???MPV - 9.9femtoliters???Nucleated RBC (Automated) - 0.0 #/100 WBC'S???Abs. NRBC - 0.0 k/mm3 D Dimer (05/15/2022) ???D-Dimer - 1.38 mg/L FEU ELECTROLYTES (05/17/2022) ???Sodium - 137 mmol/L???Potassium - 3.9 mmol/L???Chloride - 93 mmol/L???Bicarbonate Level - 31 mmol/L???Anion Gap - 13 FERRITIN (05/15/2022) ???Ferritin Level - 36 ng/mL FOLIC ACID (05/12/2022) ???Folic Acid Level - 9.2 ng/mL Glucose Level (05/13/2022) ???Glucose Level - 90 mg/dL H + H (05/13/2022) ???Hgb - 7.4 Gm/dL???Hct - 24.0 % HOLD BLUE TUBE (05/12/2022) ???Hold Blue Top - SPECIMEN DISCARDED AFTER 4 HOURS. HOLD GEL TUBE (05/15/2022) ???Hold Gel Top - SPECIMEN DISCARDED AFTER 1 WEEK HOLD GREEN TUBE (05/14/2022) ???Hold Green Top - SPECIMEN DISCARDED AFTER 1 WEEK HOLD LAVENDER TUBE (05/17/2022) ???Hold Lavender Top - SPECIMEN DISCARDED AFTER 24 HOURS. HOLD RED TUBE (05/12/2022) ???Hold Red Top - SPECIMEN DISCARDED AFTER 1 WEEK IRON & TIBC (05/15/2022) ???Iron Level - 15 mcg/dL???Iron Binding Capacity, Unsaturated - 350 mcg/dL???Iron Binding Capacity, Estimated Total - 365 mcg/dL???% Iron Saturation - 4 % Magnesium Level (05/15/2022) ???Magnesium - 2.1 mg/dL Troponin T, High Sensitivity (05/13/2022) ???High Sensitivity Troponin (HSTnT) - 11 ng/L Type and Screen (05/13/2022) ???Blood Type - O Positive???Antibody Screen - Negative VANC-TROUGH (05/15/2022) ???Vancomycin Level, Trough - 10.6 mg/L VITAMIN B12 (05/12/2022) ???Vitamin B12 Level - 707 pg/mL Allergies (NKA means No Known Allergies) Thorazine Zoloft ZyPREXA traZODone Problems Active Problems??(10) Allergic rhinitis?? Asthma?? Bipolar disorder with depression?? Chronic pain syndrome?? COVID-19?? Encounter for medication refill?? Generalized anxiety disorder?? GERD (gastroesophageal reflux disease)?? Hypothyroidism?? Severe obesity (BMI 35.0-39.9) with comorbidity?? Education Materials Below is the list of Educational Leaflet Providered with your Discharge Instructions. Doxycycline Oral Capsule?? Oxycodone/Acetaminophen Oral Tablet?? Wound Care?? Low-Salt Diet?? Lymphedema?? Anemia?? Valuables and Belongings I fully understand and agree that [facility] accepts no responsibility for all my personal property including clothing, toilet articles, radios, jewelry, dentures, hearing aids, rings, money, or any other property that is in my possession or is brought to me after admission. I understand certain valuables may be placed in a hospital safe for a short period of time. I understand that the hospital is not liable for loss or damage due to accident, fire, or other natural occurrence while said property is in the safe. I accept full responsibility for any personal property that I keep with me, and will not hold the hospital responsible in case of loss or disappearance. I acknowledge that i have been encouraged to send valuables and belongings home. ?? Safe envelope number: [id number] Review of Valuable and Belonging List: With patient Date for Pt to Sign Valuables/Belongings: 05/13/22 17:05:00 ?? Other Discharge Information ?? Wound Assessment?? Wound Assessment?? Wound Location I: Leg, left Wound Type I: Venous Wound I, Length: 8 cm Wound I, Width: 6 cm Wound I, Present on Admission: Yes Wound Location II: Leg, right Wound Type II: Venous Wound II, Length: 1 cm Wound II, Width: 1 cm Wound II, Present on Admission: Yes Closure Device Status I: Open to air Type Of Dressing Applied I: Kerlix, Other: Xeroform and ABD pads ? Pulmonary Rehab Status?? Pulmonary Rehab Discharge Status?? Respiratory Rate:??14 br/min??Low ? Common Emergency Awareness Tips IS IT A STROKE? Act FAST and Check for these signs: FACE Does the face look uneven? ARM Does one arm drift down? SPEECH Does their speech sound strange? TIME Call at any sign of stroke ?? Heart Attack Signs Chest discomfort: Most heart attacks involve discomfort in the center of the chest and lasts more than a few minutes, or goes away and comes back. It can feel like uncomfortable pressure, squeezing, fullness or pain. Discomfort in upper body: Symptoms can include pain or discomfort in one or both arms, back, neck, jaw or stomach. Shortness of breath: With or without discomfort. Other signs: Breaking out in a cold sweat, nausea, or lightheaded. Remember, MINUTES DO MATTER. If you experience any of these heart attack warning signs, call to get immediate medical attention! ?? Smoking can increase your chances of developing chronic health problems and can cause harmful effects to other family members in your house. If you smoke, you are strongly encouraged to quit. Please call [facility] Link at [phone] or [phone]) or log in to [email or web address] for referrals to smoking cessation programs. ?? The National Suicide Prevention Hotline is available 05/10 if you or someone you know needs to find a reason to keep living. By calling 1-803-647-Patientco (6680) you'll be connected to a skilled, trained counselor at a crisis center in your area. INPATIENT DISCHARGE INSTRUCTIONS SIGNATURE AUDRA VAHID TO Location:[facility] Registration Date and Time:05/12/2022 13:05 EST Primary Care Physician: Not on Staff, PCP VAHID CAVANAUGH, have received the above patient education materials/instructions and have verbalized understanding. If ambulance or transport services are being used I further acknowledge being givena choice of service. ?? If you need to contact me, please call me at this number: . Patient/Sales Recruiter Name: Patient/Sales Recruiter Signature: Relationship to Patient: Witness Name/Signature: Date: * Michelle Heath RN: PERFORM Event Display: Patient Education/Instruction Authored Date: [id number] Inpatient Adult Discharge Instructions [address] [address] Name: VAHID TO : 1980 Visit: 05/12/2022 13:05:00 Current Date: 05/17/2022 14:51 Account: [id number] Inpatient Adult Discharge Instructions We would like to thank you for allowing us to assist you with your healthcare needs. The following includes patient education materials and information regarding your injury/illness. Our entire staffstrives to provide an excellent experience for our patients and their families. PLEASE ENSURE YOU FOLLOW-UP PER THE INSTRUCTIONS BELOW! ?? YOUR OPINION IS IMPORTANT TO US! Please complete the survey you may receive by mail or email. Your feedback will be used to make improvements to the healthcare experiences of our patients and their families. Surveys are administered by [employer] ?? If further treatment with your primary care physician or another doctor is recommended, it is important for you to keep the appointment. Call your primary care physician or return to the Emergency Department immediately if your condition worsens, fails to improve, or new symptoms develop. If you need to find a doctor, you can call [facility] for a referral at [phone] or toll free at [phone] or log in to [email or web address].. ?? You can view and manage your care through the patient portal or by using a health care alden of your choosing. [email or web address] is a website that allows you to securely view your medical information including your hospital discharge summary, office visit summaries, medications and follow-up visits. You can also request appointments, renew medications, and request access to your medical information using a health care alden of your choosing, or just ask a question. You can enroll at [email or web address] or register during your next office visit. You have been discharged from [facility], Patient Care Unit: Med Surg. If you have any questions regarding these instructions after you leave, please call us and we will be happy to assist you. [facility] Your Care Team Attending Physician Isac HENDERSON, Suzanne Rodrigues Consulting Providers Cassandra Call DO Discharging Providers Suzanne Chau MD Reason for Admission Lower leg pain-swelling Your Diagnosis Bipolar 1 disorder Anxiety Chronic GERD Venous stasis Asthma COPD without exacerbation Hypothyroidism Substance abuse Cellulitis Severe obesity (BMI 35.0-39.9) with comorbidity Acquired lymphedema Normocytic anemia Polypharmacy Urinary retention Tests Performed Below is a partial list of the tests performed during your hospitalization. You may have had other tests and procedures not included in this list. Please discuss all test results with your provider. BUN C-REACTIVE PROTEIN Calcium Level CBC COVID-19 (2019 Novel Coronavirus) PCR?-- Results Pending -- D Dimer ELECTROLYTES FERRITIN FOLIC ACID Glucose Level H + H HOLD BLUE TUBE HOLD GEL TUBE HOLD GREEN TUBE HOLD LAVENDER TUBE HOLD RED TUBE IRON & TIBC Magnesium Level Troponin T, High Sensitivity Type and Screen VANC-TROUGH VITAMIN B12 ? You will be contacted within 72 hours with your results. Primary Care Provider Not on Staff, PCP Advance Directive Health Care Proxy on File Yes - Health Care Proxy Discharge Vitals Temperature: 97.7 DegF Height: 186 cm Pulse Rate: 90 bpm Weight: 130.8 kg Respiratory Rate:??14 br/min??Low Body Mass Index:??37.81 kg/m2??Critical Systolic Blood Pressure: 138 mm Hg Body surface area: 2.6 Diastolic Blood Pressure: 79 mm Hg ?? Oxygen Saturation: 100 % ?? Studies Pending All tests and labs ordered during this hospital stay have been completed unless listed below. Please discuss all pending results with your provider listed above in these instructions. ?? Add On Lab Order COVID-19 (2019 Novel Coronavirus) PCR Creatinine What to do next Instructions From Your Doctor ?? -Continue low-salt diet, activity as tolerated -Please elevating your leg??at a sitting position -Please change dressing??twice daily -Please continue medications as prescribed, follow-up with PCP in 1??weeks -[facility]??gastroenterology clinic??will contact you??for follow-up Discharge Orders Wound Care:??Wound Site: LLE Would apply Xeroform to left lower extremity ulcers Apply ABD and Kerlix wrap over the Xeroform, change on a daily basis Keep legs elevated when possible Daily Yes You Need to Schedule the Following Appointments Follow Up with??Soto RAMIREZ MD, Bal Serrano When??Within 1 to 2 weeks Where: [address] [place] [phone] Discharge Medications VAHID TO :1980 Visit Date:05/12/2022 Medications: Please continue your medications until treatment is completed or stopped by your provider. Medications not listed below should be discontinued. Discuss any questions related to medications with your provider. What How Much When Instructions Next Dose New Doxycycline (doxycycline hyclate 100 mg oral capsule) 1 capsule Oral Twice a day Duration: 3 Days may take with food to minimize abdominal discomfort ?? Pickup at [facility] #[id number] Take at 9pm tonight with food Changed Escitalopram (escitalopram 10 mg oral tablet) 1 tab(s) Oral Daily due tomorrow morning Changed Oxycodone (oxyCODONE 5 mg oral tablet) 0.5 tab(s) Oral Twice a day as needed for as needed for pain Duration: 3 Days Pickup at [facility] #[id number] last taken today at 1:33pm Unchanged Albuterol (Ventolin HFA 108 mcg/ inh inhalation aerosol with adapter) 1 puff(s) Inhalation 4 times a day as needed for for wheezing as needed Unchanged Aripiprazole (ARIPiprazole 30 mg oral tablet) 1 tab(s) Oral Daily Duration: 14 Days due tomorrow morning Unchanged Benztropine (benztropine 1 mg oral tablet) 1 tab(s) Oral Daily Duration: 14 Days due tomorrow morning Unchanged BusPIRone (busPIRone 30 mg oral tablet) 1 tab(s) Oral Twice a day Duration: 14 Days due 9pm tonight Unchanged ChlorproMAZINE (chlorproMAZINE 100 mg oral tablet) 100 Milligram Oral Daily at Bedtime Duration: 14 Days due 9pm tonight Unchanged ChlorproMAZINE (chlorproMAZINE 50 mg oral tablet) 1 tab(s) Oral Daily in the morning due tomorrow morning Unchanged ChlorproMAZINE (chlorproMAZINE 50 mg oral tablet) 50 Milligram Oral Daily before lunch Duration: 14 Days tomorrow before lunch Unchanged Clonidine (cloNIDine 0.2 mg oral tablet) 1 tab(s) Oral Twice a day Duration: 10 Days due tonight 9pm Unchanged Divalproex Sodium (divalproex sodium 500 mg oral enteric coated tablet) 2 tablets Oral Daily at Bedtime Duration: 14 Days due tonight 9pm Unchanged Divalproex Sodium (divalproex sodium 500 mg oral enteric coated tablet) 1 tab(s) Oral Daily in the morning Duration: 14 Days due tomorrow morning Unchanged Docusate (docusate sodium 100 mg oral capsule) 1 capsule Oral Twice a day due tonight Unchanged Fluticasone Nasal (fluticasone 50 mcg/ inh nasal spray) 2 spray(s) Nares, Both Daily in the morning due tomorrow morning Unchanged Fluticasone-Salmeterol (Wixela Inhub 500 mcg-50 mcg inhalation powder) 1 inhalation Inhalation Twice a day rinse mouth and throat after use ?? due tonight 9pm Unchanged Furosemide (furosemide 80 mg oral tablet) 1 tab(s) Oral Daily due tomorrow morning Unchanged Levothyroxine (levothyroxine 0.05 mg oral tablet) 1 tab(s) Oral Daily Duration: 14 Days due tomorrow morning Unchanged Montelukast (Singulair) 10 Milligram Oral Daily due tomorrow morning Unchanged Omeprazole (omeprazole 40 mg oral enteric coated capsule) 1 capsule Oral Daily due tomorrow morning Unchanged Pregabalin (pregabalin 200 mg oral capsule) 1 capsule Oral Twice a day due tonight at 9pm Unchanged Tamsulosin (tamsulosin 0.4 mg oral capsule) 1 capsule Oral Daily at Bedtime due tonight 9pm Pharmacy Information [facility] #[id number]: [address], [place] [id number] [phone] ?? What How Much When Comments Stop Taking Bethanechol (bethanechol 25 mg oral tablet) 1 tab(s) Oral 3 times a day Duration: 7 Days Stop Taking Codeine Oral Every 4 hours Stop Taking Methocarbamol (methocarbamol 750 mg oral tablet) 1 tab(s) Oral 3 times a day Stop Taking Tizanidine (tiZANidine 4 mg oral capsule) 1 capsule Oral 3 times a day Test Results Below is a partial list of the most recent Laboratory test results done prior to this discharge. You may have had other tests and procedures not included in this list. Please discuss all test resultswith your provider. RBC Available - PT (05/13/2022) RBC Unit ID - [id number] (05/13/2022) BUN (05/15/2022) ???BUN - 12 mg/dL C-REACTIVE PROTEIN (05/15/2022) ???C-Reactive Protein - 5.8 mg/dL Calcium Level (05/13/2022) ???Calcium - 8.7 mg/dL CBC (05/15/2022) ???WBC - 5.2 k/mm3???RBC - 3.01 m/mm3???Hgb - 7.3 Gm/dL???Hct - 24.1 %???MCV - 80.1 femtoliters???MCH - 24.3 pg???MCHC - 30.3 g/dL???Platelet Count - 174 k/mm3???RDW-SD - 46.6 femtoliters???MPV - 9.9femtoliters???Nucleated RBC (Automated) - 0.0 #/100 WBC'S???Abs. NRBC - 0.0 k/mm3 D Dimer (05/15/2022) ???D-Dimer - 1.38 mg/L FEU ELECTROLYTES (05/17/2022) ???Sodium - 137 mmol/L???Potassium - 3.9 mmol/L???Chloride - 93 mmol/L???Bicarbonate Level - 31 mmol/L???Anion Gap - 13 FERRITIN (05/15/2022) ???Ferritin Level - 36 ng/mL FOLIC ACID (05/12/2022) ???Folic Acid Level - 9.2 ng/mL Glucose Level (05/13/2022) ???Glucose Level - 90 mg/dL H + H (05/13/2022) ???Hgb - 7.4 Gm/dL???Hct - 24.0 % HOLD BLUE TUBE (05/12/2022) ???Hold Blue Top - SPECIMEN DISCARDED AFTER 4 HOURS. HOLD GEL TUBE (05/15/2022) ???Hold Gel Top - SPECIMEN DISCARDED AFTER 1 WEEK HOLD GREEN TUBE (05/14/2022) ???Hold Green Top - SPECIMEN DISCARDED AFTER 1 WEEK HOLD LAVENDER TUBE (05/17/2022) ???Hold Lavender Top - SPECIMEN DISCARDED AFTER 24 HOURS. HOLD RED TUBE (05/12/2022) ???Hold Red Top - SPECIMEN DISCARDED AFTER 1 WEEK IRON & TIBC (05/15/2022) ???Iron Level - 15 mcg/dL???Iron Binding Capacity, Unsaturated - 350 mcg/dL???Iron Binding Capacity, Estimated Total - 365 mcg/dL???% Iron Saturation - 4 % Magnesium Level (05/15/2022) ???Magnesium - 2.1 mg/dL Troponin T, High Sensitivity (05/13/2022) ???High Sensitivity Troponin (HSTnT) - 11 ng/L Type and Screen (05/13/2022) ???Blood Type - O Positive???Antibody Screen - Negative VANC-TROUGH (05/15/2022) ???Vancomycin Level, Trough - 10.6 mg/L VITAMIN B12 (05/12/2022) ???Vitamin B12 Level - 707 pg/mL Allergies (NKA means No Known Allergies) Thorazine Zoloft ZyPREXA traZODone Problems Active Problems??(10) Allergic rhinitis?? Asthma?? Bipolar disorder with depression?? Chronic pain syndrome?? COVID-19?? Encounter for medication refill?? Generalized anxiety disorder?? GERD (gastroesophageal reflux disease)?? Hypothyroidism?? Severe obesity (BMI 35.0-39.9) with comorbidity?? Education Materials Below is the list of Educational Leaflet Providered with your Discharge Instructions. Doxycycline Oral Capsule?? Oxycodone/Acetaminophen Oral Tablet?? Wound Care?? Low-Salt Diet?? Lymphedema?? Anemia?? Valuables and Belongings I fully understand and agree that [facility] accepts no responsibility for all my personal property including clothing, toilet articles, radios, jewelry, dentures, hearing aids, rings, money, or any other property that is in my possession or is brought to me after admission. I understand certain valuables may be placed in a hospital safe for a short period of time. I understand that the hospital is not liable for loss or damage due to accident, fire, or other natural occurrence while said property is in the safe. I accept full responsibility for any personal property that I keep with me, and will not hold the hospital responsible in case of loss or disappearance. I acknowledge that i have been encouraged to send valuables and belongings home. ?? Safe envelope number: [id number] Review of Valuable and Belonging List: With patient Date for Pt to Sign Valuables/Belongings: 05/13/22 17:05:00 ?? Other Discharge Information ?? Wound Assessment?? Wound Assessment?? Wound Location I: Leg, left Wound Type I: Venous Wound I, Length: 8 cm Wound I, Width: 6 cm Wound I, Present on Admission: Yes Wound Location II: Leg, right Wound Type II: Venous Wound II, Length: 1 cm Wound II, Width: 1 cm Wound II, Present on Admission: Yes Closure Device Status I: Open to air Type Of Dressing Applied I: Kerlix, Other: Xeroform and ABD pads ? Pulmonary Rehab Status?? Pulmonary Rehab Discharge Status?? Respiratory Rate:??14 br/min??Low ? Common Emergency Awareness Tips IS IT A STROKE? Act FAST and Check for these signs: FACE Does the face look uneven? ARM Does one arm drift down? SPEECH Does their speech sound strange? TIME Call at any sign of stroke ?? Heart Attack Signs Chest discomfort: Most heart attacks involve discomfort in the center of the chest and lasts more than a few minutes, or goes away and comes back. It can feel like uncomfortable pressure, squeezing, fullness or pain. Discomfort in upper body: Symptoms can include pain or discomfort in one or both arms, back, neck, jaw or stomach. Shortness of breath: With or without discomfort. Other signs: Breaking out in a cold sweat, nausea, or lightheaded. Remember, MINUTES DO MATTER. If you experience any of these heart attack warning signs, call to get immediate medical attention! ?? Smoking can increase your chances of developing chronic health problems and can cause harmful effects to other family members in your house. If you smoke, you are strongly encouraged to quit. Please call [facility] Link at [phone] or [phone] ([phone]) or log in to [email or web address] for referrals to smoking cessation programs. ?? The National Suicide Prevention Hotline is available 05/10 if you or someone you know needs to find a reason to keep living. By calling 3-908-934-Patientco (3885) you'll be connected to a skilled, trained counselor at a crisis center in your area. INPATIENT DISCHARGE INSTRUCTIONS SIGNATURE AUDRA VAHID TO Location:[facility] Registration Date and Time:05/12/2022 13:05 EST Primary Care Physician: Not on Staff, PCP I VAHID TO, have received the above patient education materials/instructions and have verbalized understanding. If ambulance or transport services are being used I further acknowledge being givena choice of service. ?? If you need to contact me, please call me at this number: . Patient/Sales Recruiter Name: Patient/Sales Recruiter Signature: Relationship to Patient: Witness Name/Signature: Date: * Michelle Heath RN: PERFORM Event Display: Patient Education Leaflets Authored Date: [id number] Doxycycline Oral Capsule ?? [address] Doxycycline Oral Capsule Brands: Adoxa, Mondoxyne, Monodox, Morgidox, Okebo, Vibramycin Uses For treating bacterial infection. ?? Instructions Take the medicine with 250 mL (1 cup) of water. Take on empty stomach - 1 hour before or 2 hours after eating. Sit or stand upright for 30 minutes after taking the medicine. Do not lie down. Keep the medicine at room temperature. Avoid heat and direct light. Do not take any antacid or vitamins with magnesium, calcium, aluminum, or iron for 2 hours before and 2 hours after taking this medicine. This medicine can make you sensitive to the sun. Use sunscreen or protective clothing when in sun. If you forget to take a dose on time, take it as soon as you remember. If it is almost time for thenext dose, do not take the missed dose. Return to your normal schedule. Do not take 2 doses at one time. Drug interactions can change how medicines work or increase risk for side effects. Tell your healthcare providers about all medicines taken. Include prescription and ghld-nmu-ouxmxgd medicines, vitamins, and herbal medicines. Speak with your doctor or pharmacist before starting or stopping any medicine. Keep using this medicine for the full number of days that it is prescribed. Do not stop the medicine even if you start to feel better. This medicine can cause permanent change in teeth color in children. ?? Cautions Tell your doctor and pharmacist if you ever had an allergic reaction to a medicine. Do not use the medication any more than instructed. Contact your doctor if you notice a change in the amount or darkening of your urine. Please tell your doctor if you have moderate to severe diarrhea while on this medicine. Do not treat the diarrhea with fcrl-esi-xrflatl diarrhea medicine. Tell the doctor or pharmacist if you are , planning to be , or . Do not share this medicine with anyone who has not been prescribed this medicine. ?? Side Effects The following is a list of some common side effects from this medicine. Please speak with your doctor about what you should do if you experience these or other side effects. ??? diarrhea ??? nausea and vomiting ??? stomach upset or abdominal pain ??? increased risk of sunburn ??? yeast infection of mouth ??? vaginal itching or yeast infection Call your doctor or get medical help right away if you notice any of these more serious side effects: ??? swelling in the neck or throat ??? difficulty swallowing ??? blurring or changes of vision A few people may have an allergic reaction to this medicine. Symptoms can include difficulty breathing, skin rash, itching, swelling, or severe dizziness. If you notice any of these symptoms, seek medical help quickly. ?? Extra Please speak with your doctor, nurse, or pharmacist if you have any questions about this medicine. ?? [email or web address] IMPORTANT NOTE: This document tells you briefly how to take your medicine, but it does not tell youall there is to know about it. Your doctor or pharmacist may give you other documents about your medicine. Please talk to them if you have any questions. Always follow their advice. There is a more complete description of this medicine available in Russian. Scan this code on your smartphone or tablet or use the web address below. You can also ask your pharmacist for a printout. If you have any questions, please ask your pharmacist. The display and use of this drug information is subject to Terms of Use. Copyright(c) 2022 [employer]. ?? [employer]. All rights reserved. This information is not intended as a substitute for professional medical care. Always follow your healthcare professional's instructions. ?? * Kumar VALENTINE, Michelle Kendrick: PERFORM Event Display: Patient Education Leaflets Authored Date: [id number] Oxycodone/Acetaminophen Oral Tablet ?? [address] Oxycodone/Acetaminophen Oral Tablet Brands: Endocet, Nalocet, Percocet, Primlev, Prolate Uses For pain. ?? Instructions This medicine may be taken with or without food. Store at room temperature away from heat, light, and moisture. Do not keep in the bathroom. Please ask your doctor, nurse, or pharmacist how to discard unused medicines safely. To reduce constipation, eat high fiber foods, drink plenty of water and exercise. Drug interactions can change how medicines work or increase risk for side effects. Tell your healthcare providers about all medicines taken. Include prescription and vrbe-akl-klgogvz medicines, vitamins, and herbal medicines. Speak with your doctor or pharmacist before starting or stopping any medicine. Tell your doctor if symptoms do not get better or if they get worse. Do not take more than 8 pills in a day. ?? Cautions This medicine has an opioid. Opioids help many people but may cause addiction, especially if used for a long time. The addiction risk is higher if you have a substance use disorder (overuse of or addiction to drugs or alcohol). Ask your doctor about the benefits and risks. Ask your doctor or pharmacist if you should have naloxone on hand to treat opioid overdose. Teach your family or household members about the signs of an opioid overdose and how to treat it. If you stop this medicine suddenly after using it for a long time, you may have withdrawal. Your doctor may slowly lower your dose before stopping it. Tell your doctor right away if you have symptoms, such as unusual sweating, watering eyes, runny nose, chills, diarrhea, yawning, muscle aches, restlessness, anxiety, trouble sleeping, or thoughts of suicide. Tell your doctor and pharmacist if you ever had an allergic reaction to a medicine. Do not use the medication any more than instructed. If possible, avoid using with marijuana or other medicines that can cause dizziness or drowsiness. These include allergy/cold products, muscle relaxers, sleep aids, and pain relievers. Your ability to stay alert or to react quickly may be impaired by this medicine. Do not drive or operate machinery until you know how this medicine will affect you. Do not drink beverages with alcohol while on this medicine. This medicine passes into breast milk. Ask your doctor before . This medicine can hurt a new baby in the womb. If you become while on this medicine, tell your doctor immediately. Your doctor may switch you to a different medicine. This medicine should be used with caution in patients with breathing difficulties. Call your doctor right away if you notice slow or shallow breathing. Do not share this medicine with anyone who has not been prescribed this medicine. This medicine contains acetaminophen. There are many medicines with acetaminophen. Taking these medicines together can cause you to get too much acetaminophen. This can cause serious liver problems. Look carefully on the package of all your medicines to see if acetaminophen is included. Ask your pha rmacist which medicines you can take safely. Some patients have serious side effects from this medicine. Ask your pharmacist to show you the information from the Food and Drug Administration (FDA) and discuss it with you. ?? Side Effects The following is a list of some common side effects from this medicine. Please speak with your doctor about what you should do if you experience these or other side effects. ??? decreased appetite ??? constipation ??? dizziness or drowsiness ??? nausea and vomiting If you have any of the following side effects, you may be getting too much medicine. Please contactyour doctor to let them know about these side effects. ??? changes in memory, mood, or thinking ??? confusion ??? fainting ??? slow heartbeat Call your doctor or get medical help right away if you notice any of these more serious side effects: ??? decreased awareness or responsiveness ??? breathing interruption during sleep ??? shallow, irregular breathing ??? hallucinations (unusual thoughts, seeing or hearing things that are not real) ??? signs of liver damage (such as yellowing of eye or skin, dark urine, or unusual tiredness) ??? seizures ??? shortness of breath ??? unusual or unexplained tiredness or weakness ??? difficulty or discomfort urinating ??? severe or persistent vomiting ??? weight loss A few people may have an allergic reaction to this medicine. Symptoms can include difficulty breathing, skin rash, itching, swelling, or severe dizziness. If you notice any of these symptoms, seek medical help quickly. ?? Extra Please speak with your doctor, nurse, or pharmacist if you have any questions about this medicine. ?? [email or web address] IMPORTANT NOTE: This document tells you briefly how to take your medicine, but it does not tell youall there is to know about it. Your doctor or pharmacist may give you other documents about your medicine. Please talk to them if you have any questions. Always follow their advice. There is a more complete description of this medicine available in Russian. Scan this code on your smartphone or tablet or use the web address below. You can also ask your pharmacist for a printout. If you have any questions, please ask your pharmacist. The display and use of this drug information is subject to Terms of Use. Copyright(c) 2022 [employer]. ?? [employer]. All rights reserved. This information is not intended as a substitute for professional medical care. Always follow your healthcare professional's instructions. ?? * Kumar VALENTINE, Michelle Kendrick: PERFORM Event Display: Patient Education Leaflets Authored Date: [id number] Wound Care ?? 04842 Wound Care Taking good care of your wound will help it heal. Your??healthcare??provider may show you how to clean and dress the wound. They will also explain how to tell if the wound is healing normally.??If you are unsure of how to take care of the wound, ask what dressing to use and how often you should change the bandages.??Below are the basic steps. Wash your hands Tips for washing your hands: ??? Use liquid soap and lather. Scrub for 20 seconds between your fingers and under your nails. ??? Rinse with clean, running water, keeping your fingers pointed down. ??? Use a paper towel to dry your hands and to turn off the faucet. ?? Remove the used dressing Here are suggestions for removing the dressing: ??? If dressing changes cause you pain, take your pain medicine as prescribed by your healthcare provider 30 minutes??before??dressing changes. ??? Setup your supplies. ??? Put on disposable gloves if you???re dressing a wound for someone else or your wound is infected. ??? Loosen the tape by pulling gently toward the wound. ??? Gently take off theold dressing. If the dressing is stuck to the wound, moisten it with saline (if available) or cleanwater. ??? If you have a drain or tube in the wound, be careful not to pull on it. ??? Remove the dressing 1 layer at a time and put it in a plastic bag. Seal the bag and put it in the trash. ??? Remove your gloves. ?? Inspect and dress the wound Check the wound carefully: ??? Each time you change the dressing, check the wound carefully to be sure it???s healing normally. Check that your wound appears to be pink and moist and that it's free of infection. ? Wash your hands again. Put on a new pair of gloves. ??? Clean and dress the wound as directed by your??healthcare provider??or nurse.??Don't put anything in the wound that is not prescribed or directed by your healthcare provider.??If you have a drain or tube, be careful not to pull on it.??Secure the drain or tube as well. ??? Put all unused supplies in a clean plastic bag. Seal the bag and store it in a clean, dry area between dressing changes.? Wash your hands again. ?? Call your healthcare provider Call your healthcare provider if you see any of the following signs of a problem: ??? Bleeding thatsoaks the dressing ??? Leigh fluid weeping from the wound ??? Increased drainage or drainage that iswhite, yellow, yellow-green, or foul-smelling ??? Increased swelling or pain, or redness or swelling in the skin around the wound ??? A change in the color of the wound, or if streaks develop in a direction away from the wound ??? The area between any stitches opens up ??? An increase in the size of the wound ??? A fever of 100.4??F (38??C) or higher, or as directed by your healthcare provider ??? Chills, increased fatigue, or a loss of appetite ?? Last Reviewed Date: 2021 ?? 8955-3572 [employer]. All rights reserved. This information is not intended as a substitute for professional medical care. Always follow your healthcare professional's instructions. ?? Patient Care team information Care Team Personnel Name: Konrad Gallegos RN Position: [facility] ALYSE RN W/OE and Tasks Member Role: Primary Care Nurse Name: Niki Bright RN Position: S RN Member Role: Primary Care Nurse Name: Fang Che Position: [facility] RN Member Role: Primary Care Nurse Name: Trisha Alamo RN Position: [facility] RN Supv Member Role: Primary Care Nurse Name: Rita Son NP Position: [facility] Associate Professional Member Role: Primary Care Nurse Address: Address: [address] [place] [address]- [place] Name: Sol Chanel RN Position: [facility] RN Member Role: Primary Care Nurse Name: Trisha Beltrán RN Position: [facility] RN Supv Member Role: Primary Care Nurse Name: Helene Pérez RN Position: [facility] RN Member Role: Primary Care Nurse Name: Brenda Cuba RN Position: [facility] HBO Wound Member Role: Primary Care Nurse Name: Kell Alonso RN Position: [facility] RN Member Role: Primary Care Nurse Name: Faraz Barriga RN Position: [facility] RN Member Role: Primary Care Nurse Name: Richa Clay LPN Position: [facility] RN Member Role: Primary Care Nurse Name: Екатерина Chacko RN Position: [facility] RN Member Role: Primary Care Nurse Name: Anna Lackey RN Position: [facility] RN Member Role: Primary Care Nurse Name: Elizabeth Ha RN Position: [facility] RN Member Role: Primary Care Nurse Name: Not on Staff, PCP Position: [facility] Physician (General Medicine) Member Role: PCP Name: Anna Oconnor RN Position: [facility] Manager Culture Member Role: Primary Care Nurse Name: Kip Gonzalez RN Position: [facility] RN Member Role: Primary Care Nurse Address: Address: [address] [place] [address]- Name: Anisha Hinds RN Position: [facility] RN Member Role: Primary Care Nurse Name: Kari Grijalva RN Position: [facility] RN Member Role: Primary Care Nurse Name: Sunitha Gutierrez RN Position: [facility] RN Member Role: Primary Care Nurse Name: April Acuña RN Position: [facility] RN Member Role: Primary Care Nurse Name: Li Esquivel RN Position: [facility] Manager Culture Member Role: Primary Care Nurse Name: Tunde White MD Position: [facility] Psychiatry MD Member Role: [employer] Address: Address: [address] [place] [id number]- Name: Betty GUERRERO Attending Position: [facility] ED Medicine MD Name: Cecily Santiago Position: [facility] ED OA Charge Member Role: ED Associate Name: Isaiah Harley Position: [facility] ED RN W/OE and Tasks Member Role: Patient Care Provider Name: Idalmis Montero Position: S ED TA [facility] Member Role: Patient Care Provider Care Team Related Persons Name: YOUSUFFORREST Address: home [address] [place] [id number] Name: MÓNICA CREWS
--- OUTSIDE RECORDS SUMMARY | 2022-10-14 11:49 | XMS_ITS | Continuity of Care Document ---
Author Name Unknown Organization [facility] Address [address] [place] [address]- Care Team Providers Care Cadence Specialists Name Role Phone Soto RAMIREZ MD, Bal Serrano Primary Care Physician Encounter [facility] Date(s): 03/30/21 - 03/30/[address] [address]- Discharge Disposition: A-D/C Home Attending Physician: Mansoor [...] 02/13/1911:48:23 EST, Aerosol, Route to Pharmacy Electronically, [id number], [facility]/pharmacy #[id number] Start Date: 02/13/19 Status: Ordered amitriptyline 100 mg oral tablet 1 tablet = 100 mg, By Mouth, Daily at bedtime, # 7 tablet, 3 Refills, Maintenance, 04/15/20 10:15:00 EST, Tablet, [facility] #[id number], Partial fill upon patient request if the [...] Date: 03/04/21 Stop Date: 03/11/21 Status: Ordered calcium carbonate 500 mg (200 [...] 09/13/20 14:45:00 EDT, Route to Pharmacy Electronically, [facility] #[id number], Partial fill upon patient request if the [...] Maintenance, 10/22/2121:52:00 EDT, Route to Pharmacy Electronically, [facility] #[id number], Partial fill upon patient request if the prescription is for a schedule II... Start Date: 10/22/20 Status: Ordered fluticasone 50 mcg/inh nasal spray 2 sprays, Nares, Both, 2 times a day, # 9.9 mL, 0 Refills, Maintenance, 11/15/18 14:21:09 EDT, [place], 2 sprays Nares, Both 2 times a [...] 0 Refills, Maintenance, 01/07/21 18:42:00 EDT, Tablet, [facility] #[id number], Partial fill upon patient request if the [...] 05/28/21 9:00:00 EDT, 05/28/20 15:55:00 EDT, Patch, [facility] #[id number], Partial fill upon patient request if the prescription is for aschedule II opioid drug., 1 patch Topically Daily,... Start Date: 05/28/20 Stop Date: 05/28/21 Status: Ordered promethazine 25 mg oral tablet 1 tablet = 25 mg, By Mouth, 3 times a day, # 6 tablet, 0 Refills, Maintenance, 03/30/21 17:02:00 EST, Tablet, [facility] #[id number], Partial fill upon patient request if the [...] 04/13/20 14:57:00 EST, Route to Pharmacy Electronically, [facility] #[id number], Partial fill upon patient request if the [...] 0 Refills, Maintenance, 07/27/20 19:15:00 EDT, Tablet, [facility] #[id number], Partial fill upon patient request if the [...] oldest [Reference Range]: 1 Height 183 cm (03/30/21 1:41 PM) Weight 145.5 kg (03/30/21 1:41 PM) Oxygen Saturation [94-100 %] 95 % (03/30/21 1:41 PM) Pulse Rate [55-90 bpm] 96 bpm *H* (03/30/21 1:41 PM) Blood Pressure [90-138/55-84 mm Hg] 141/ 84mm Hg *H* (03/30/21 1:41 PM) Respiratory Rate [16-30 br/min] 20 br/mi n (03/30/21 1:41 PM) Temperature [96.8-100.4 DegF] 97.8 DegF (03/30/21 1:41 PM) Mode of Delivery (Oxygen) Room air (03/30/21 1:41 PM) Blood pressure sites Arm, left (03/30/21 1:41 PM) Temperature Route Oral (03/30/21 1:41 PM) Dry Weight 145.5 kg (03/30/21 1:41 PM) Social History Social History Type Response Tobacco Use: 1PPD. Sex Medical Equipment Implanted Date:09/13/20Target Site:Abdomen Description Quantity MRI Company Model MESH VENTRALIGHT ECHO ELLIPS 4 - BARD ([id number]) 1 Bard Unknown HAYDEE:{01}[id number] Assigning Author ity:FDA
--- OUTSIDE RECORDS SUMMARY | 2022-10-14 11:49 | XMS_ITS | Continuity of Care Document ---
Author Name Unknown Organization [facility] Address [address] [place] [address]- Care Team Providers Care Manager Perioperative Name Role Phone Soto RAMIREZ MD, Bal Serrano Primary Care Physician Encounter [facility] Date(s): 12/29/21 - 12/29/[address] [address]- Encounter Diagnosis Toe injury(Final) - 12/29/21 Discharge Disposition: A-D/C Home Attending Physician: Michael Langley MD Admitting Physician: Michael Langley MD Referring Physician: Not on Staff, Referring [...] 23:55:00 EDT, Inhaler, Route to Pharmacy Electronically, [id number], [facility] #[id number], 182, cm, 06/20/21 23:10:00 EDT,... Start Date: 06/20/21 Status: Ordered amitriptyline 150 mg oral tablet 1 tablet = 150 mg, By Mouth, Daily at bedtime, # 5 tablet, 4 Refills, Maintenance, 07/11/21 11:18:00 EDT, Tablet, [facility] #[id number], Partial fill upon patient request if the prescription isfor a schedule II opioid drug., 182, cm, 06/20/21 2... Start Date: 07/11/21 Stop Date: 08/05/21 Status: Ordered ARIPiprazole 15 mg oral tablet 15 mg, 1, tablet, By Mouth, Daily, # 7 tablet, Refills 3, Tot. Refills 3, Maintenance, 07/14/21 11:18:00 EDT, Route to Pharmacy Electronically, [facility] #[id number], Partial fill upon patient request if the [...] 3 Refills, Maintenance, 07/14/21 11:19:00 EDT, Tablet, [facility] #[id number], Partial fill upon patient request if the [...] 06/20/21 23:55:00 EDT, Route to Pharmacy Electronically, [facility] #[id number], Partial fill upon patient request if the pre... Start Date: 06/20/21 Status: Ordered Codeine 30mg/Acetaminophen 300mg Tablet 2 tablet, Tablet, By Mouth, Once, STAT, 12/29/21 16:02:00 EDT, Stop date 12/29/21 16:02:00 EDT Start Date: 12/29/21 Stop Date: 12/29/21 Status: Completed Combivent Respimat 20 mcg-100 mcg/inh [...] 3 Refills, Maintenance, 07/14/21 11:19:00 EDT, Tablet, [facility] #[id number], Partial fill upon patient request if the prescription is for a schedule II opioid drug., 182, cm, 06/20/21 23:10:00 EDT... Start Date: 07/14/21 Stop Date: 08/11/21 Status: Ordered docusate sodium 100 mg oral capsule 100 mg, 1, capsule, By Mouth, 2 times a day, # 60 capsule, Refills 0, Tot. Refills 0, Maintenance, 06/20/21 23:57:00 EDT, Route to Pharmacy Electronically, [facility] #[id number], Partial fill upon patient request if the prescription is for a salima... Start Date: 06/20/21 Status: Ordered Flomax 0.4 mg oral capsule 0.4 mg, 1, capsule, By Mouth, Daily, # 30 capsule, Refills 0, Tot. Refills 0, Maintenance, 06/20/2222:57:00 EDT, Route to Pharmacy Electronically, [facility] #[id number], Partial fill upon patient request if the prescription is for a schedule II... Start Date: 06/20/21 Status: Ordered fluticasone 50 mcg/inh nasal spray 2 sprays, Nares, Both, 2 times a day, # 9.9 mL, 0 Refills, Maintenance, 11/15/18 14:21:09 EDT, [place], 2 sprays Nares, Both 2 times a [...] Status: Ordered methadone 10 mg oral tablet 30 mg, Tablet, By Mouth, Once, STAT, 12/29/21 18:14:00 EDT, Stop date 12/29/21 18:14:00 EDT Start Date: 12/29/21 Stop Date: 12/29/21 Status: Completed methocarbamol 500 mg oral tablet [...] 09/08/21 5:22:00 EDT, Route to Pharmacy Electronically, [facility] #[id number], Partial fill upon patient request if the [...] anxiety disorder Confirmed Active Hypothyroidism Confirmed Active Results Radiology Reports * Exam Date Time Procedure Performing Provider Status 12/29/21 6:17 PM Foot Min 3 Views Right Grodzicka , Be yesi; Auth (Verified) Notes: (Foot Min 3 Views Right) Reason For Exam: Pain RESULT: Foot Min 3 Views Right Foot Min 3 Views Right, 3 views Hx of Present Illness: Pain. COMPARISON: 12/13/2021 FINDINGS: Partially imaged ORIF of the distal fibula. Somewhat limited evaluation due to obliquity and superimposition of the metatarsals on one another. No displaced fracture. No retained foreign body. Chronic soft tissue edema overlying the ankle although improved compared to 12/13/2021. IMPRESSION: No displaced fracture. No retained foreign body. WSN: [id number] Ordering Physician: Michael Langley Dictated By: Cameron Sotomayor MD Dictated Date/Time: 12/29/21 7:36 pm Reviewed By: Cameron Sotomayor MD Signed By: Cameron Sotomayor MD Signed Date/Time: 12/29/21 7:36 pm Transcribed By: RAVIDNER Transcribed Date/Time: 12/29/21 7:34 pm Vital Signs Most recent to oldest [Reference Range]: 1 2 3 Height 188 cm (12/29/21 6:23 PM) 188 cm (12/29/21 12:56 PM) 188 cm (12/29/21 12:34 PM) Weight 105 kg (12/29/21 6:23 PM) 105 kg (12/29/21 12:56 PM) 105 kg (12/29/21 12:34 PM) Oxygen Saturation [94-100 %] 100 % (12/29/21 6:23 PM) 100 % (12/29/21 12:34 PM) Pulse Rate [55-90 bpm] 101 bpm *H* (12/29/21 6:23 PM) 100 bpm *H* (12/29/21 12:34 PM) Body Mass Index [18.5-24.99 kg/m2] 29.71 kg/m2 *H* (12/29/21 6:23 PM) 29.71 kg/m2 *H* (12/29/21 12:34 PM) Blood Pressure [90-138/55-84 mm Hg] 119/80mm Hg (12/29/21 6:23 PM) 138/93mm Hg (12/29/21 12:34 PM) Respiratory Rate [16-30 br/min] 19 br/min (12/29/21 6:23 PM) 18 br/min (12/29/21 6:16 PM) 20 br/min (12/29/21 4:30 PM) Temperature [96.8-100.4 DegF] 98.9 DegF (12/29/21 12:34 PM) Mode of Delivery (Oxygen) Room air (12/29/21 6:23 PM) Room air (12/29/21 12:34 PM) Blood pressure sites Arm, left (12/29/21 6:23 PM) Arm, right (12/29/21 12:34 PM) Temperature Route Temporal (12/29/21 12:34 PM) Dry Weight 105 kg (12/29/21 6:23 PM) 105 kg (12/29/21 12:56 PM) 105 kg (12/29/21 12:34 PM) Weight Obtained Via Patient/family state d (12/29/21 12:34 PM) Social History Social History Type Response [...] Code MRI Safety Implantable Status 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 [id number] Unknown [id number] Unknown 03/11/21 Unknown Unknown Active GS1 XR Foot - right GE 3 Views * [facility] , CIS S: TRANSCRIBE Cameron Sotomayor MD: VERIFY Event Display: Result: Authored Date: [id number] Foot Min 3 Views Right, 3 views Hx of Present Illness: Pain. COMPARISON: 12/13/2021 FINDINGS: Partially imaged ORIF of the distal fibula. Somewhat limited evaluation due to obliquity and superimposition of the metatarsals on one another. No displaced fracture. No retained foreign body. Chronic soft tissue edema overlying the ankle although improved compared to 12/13/2021. IMPRESSION: No displaced fracture. No retained foreign body. WSN: [id number] Ordering Physician: Michael Langley Dictated By: Cameron Sotomayor MD Dictated Date/Time: 12/29/21 7:36 pm Reviewed By: Cameron Sotomayor MD Signed By: Cameron Sotomayor MD Signed Date/Time: 12/29/21 7:36 pm Transcribed By: RAVINDER Transcribed Date/Time: 12/29/21 7:34 pm Patient Care team information Personnel Name: Soto RAMIREZ MD, Bal Serrano Address: Address: [address] [place] [id number]
--- OUTSIDE RECORDS SUMMARY | 2022-10-14 11:49 | XMS_ITS | Continuity of Care Document ---
Author Name Unknown Organization [facility] [place] Address [address] [place] [address]- Care Team Providers Care Deputy Director Of Finance Name Role Phone Sahi HENDERSON, Elijah Primary Care Physician Encounter [facility] Date(s): 03/23/19 - 04/27/[address] [address]- [facility] Attending Physician: Michael Bennett MD Referring Physician: Cassandra Call DO Allergies, Adverse Reactions, Alerts Substance Reaction Severity Status Zoloft Active Thorazine Active traZODone Active ZyPREXA Active PROzac Active SEROquel Active Medications albuterol CFC free 90 mcg/inh inhalation aerosol 2, puffs, Inhalation, Every 4 hours, PRN, # 18 Gm, Refills 3, Tot. Refills 3, Maintenance, 02/13/1911:48:23 EST, Aerosol, Route to Pharmacy Electronically, [id number], [facility]/pharmacy #1111 Start Date: 02/13/19 Status: Ordered busPIRone [...] Refills, Maintenance, 02/28/19 12:11:45 EST, EC Tablet, [facility]/pharmacy #1111, 183, cm, 02/28/19 11:39:08 EST, Height, [...] Maintenance, 198:58:23 EST, Route to Pharmacy Electronically, [id number], [facility]/pharmacy #1111, 183, cm, 02/17/19 8:22:07 EST, Height, 127, kg... Start Date: 02/17/19 Status: Ordered fluticasone 50 mcg/inh nasal spray 2 sprays, Nares, Both, 2 times a day, # 9.9 mL, 0 Refills, Maintenance, 11/15/18 14:21:09 EDT, [place], 2 sprays Nares, Both 2 times a day Start Date: 11/15/18 Status: Ordered gabapentin 100 mg oral capsule 100 mg, 1, capsule, By Mouth, Daily at bedtime, # 30 capsule, Refills 0, Tot. Refills 0, Maintenance, 02/28/19 12:13:04 EST, Route to Pharmacy Electronically, [facility]/pharmacy #1111, 183, cm, 02/28/19 11:39:08 EST, Height, [...]
--- OUTSIDE RECORDS SUMMARY | 2022-10-14 11:49 | XMS_ITS | Continuity of Care Document ---
Author Name Unknown Organization [facility] Address [address] [place] [address]- Care Team Providers Care Supervisor Decorating Name Role Phone Soto RAMIREZ MD, Bal Serrano Primary Care Physician Encounter [facility] Date(s): 10/18/20 - 10/19/[address] [address]- Discharge Disposition: A-D/C Home Attending Physician: Frederick Coleman MD Admitting Physician: Frederick Coleman MD Referring Physician: Not on Staff, Referring [...] 02/13/1911:48:23 EST, Aerosol, Route to Pharmacy Electronically, [id number], [facility]/pharmacy #1111 Start Date: 02/13/19 Status: Ordered Ambien [...] 3 Refills, Maintenance, 04/15/20 10:15:00 EST, Tablet, [facility] #[id number], Partial fill upon patient request if the prescription isfor a schedule II opioid drug., 183, cm, 04/15/20 0... Start Date: 04/15/20 Stop Date: 05/13/20 Status: Ordered amitriptyline 25 mg oral tablet 75 mg, 3, tablet, By Mouth, Daily, # 21 tablet, Refills 3, Tot. Refills 3, Maintenance, 04/13/20 14:55:00 EST, Route to Pharmacy Electronically, [facility] #[id number], Partial fill upon patientrequest if the prescription is for a schedule II op... Start Date: 04/13/20 Stop Date: 05/11/20 Status: Ordered baclofen 10 mg oral tablet 20 mg, 2, tablet, By Mouth, 2 times a day, # 56 tablet, Refills 1, Tot. Refills 1, Maintenance, 04/13/20 14:54:00 EST, Route to Pharmacy Electronically, [facility] #[id number], Partial fill uponpatient request if the prescription is for a schedu... Start Date: 04/13/20 Stop Date: 05/11/20 Status: Ordered busPIRone 15 mg oral tablet 1 tablet = 15 mg, By Mouth, 3 times a day, # 42 tablet, 1 Refills, Maintenance, 04/13/20 14:56:00 EST, Tablet, [facility] #[id number], Partial fill upon patient request if the prescription is for a schedule II opioid drug., 183, cm, 04/13/20 9:04... Start Date: 04/13/20 Stop Date: 05/11/20 Status: Ordered CeleBREX 100 mg oral capsule 1 capsule = 100 mg, By Mouth, 2 times a day, # 15 capsule, 0 Refills, Maintenance, 07/27/20 19:07:00 EDT, Capsule, [facility] #[id number], Partial fill upon patient request if the [...] 09/13/20 14:45:00 EDT, Route to Pharmacy Electronically, [facility] #[id number], Partial fill upon patient request if the prescription is for a salima... Start Date: 09/13/20 Status: Ordered fluticasone 50 mcg/inh nasal spray 2 sprays, Nares, Both, 2 times a day, # 9.9 mL, 0 Refills, Maintenance, 11/15/18 14:21:09 EDT, [place], 2 sprays Nares, Both 2 times a [...] 05/28/21 9:00:00 EDT, 05/28/20 15:55:00 EDT, Patch, [facility] #[id number], Partial fill upon patient request if the prescription is for aschedule II opioid drug., 1 patch Topically Daily,... Start Date: 05/28/20 Stop Date: 05/28/21 Status: Ordered propranolol 20 mg oral tablet 40 mg, Tablet, By Mouth, 10/19/20 10:29:00 EDT Start Date: 10/19/20 Stop Date: 10/19/20 Status: Completed propranolol 40 mg oral tablet 40 mg, 1, tablet, By Mouth, 2 times a day, # 28 tablet, Refills 1, Tot. Refills 1, Maintenance, 04/13/20 14:56:00 EST, Route to Pharmacy Electronically, [facility] #[id number], Partial fill uponpatient request if the prescription [...] 04/13/20 14:57:00 EST, Route to Pharmacy Electronically, [facility] #[id number], Partial fill upon patient request if the [...] 1 Refills, Maintenance, 04/13/20 14:55:00 EST, Tablet, [facility] #[id number], Partial fill upon patient request if the prescription is for a schedule II opioid drug., 183, cm, 04/13/20 9:0... Start Date: 04/13/20 Stop Date: 05/11/20 Status: Ordered traMADol 50 mg oral tablet 1 tablet = 50 mg, By Mouth, Every 12 hours, PRN for pain, # 10 tablet, 0 Refills, Maintenance, 07/27/20 19:15:00 EDT, Tablet, [facility] #[id number], Partial fill upon patient request if the [...] oldest [Reference Range]: 1 2 3 Height 182 cm (10/19/20 5:55 AM) 182 cm (10/19/20 4:58 AM) 182 cm (10/19/20 4:56 AM) Weight 146 kg (10/19/20 5:55 AM) 146 kg (10/19/20 4:58 AM) 146 kg (10/19/20 4:56 AM) Oxygen Saturation [94-100 %] 97 % (10/19/20 8:00 AM) 97 % (10/19/20 5:55 AM) 97 % (10/19/20 4:56 AM) Pulse Rate [55-90 bpm] 101 bpm *H* (10/19/20 10:41 AM) 87 bpm (10/19/20 5:55 AM) 96 bpm *H* (10/19/20 4:56 AM) Body Mass Index [18.5-24.99] 44.08 *>HHI* (10/19/20 5:55 AM) 44.08 *>HHI* (10/19/20 4:58 AM) 44.08 *>HHI* (10/19/20 4:56 AM) Blood Pressure [90-138/55-84 mm Hg] 155/90mm Hg *H* (10/19/20 10:41 AM) 132/111mm Hg (10/19/20 8:00 AM) 139/81mm Hg *H* (10/19/20 5:55 AM) Respiratory Rate [16-30 br/min] 17 br/min (10/19/20 8:00 AM) 21 br/min (10/19/20 5:55 AM) 22 br/min (10/19/20 4:56 AM) Temperature [96.8-100.4 DegF] 98.0 DegF (10/19/20 8:00 AM) 97.8 DegF (10/18/20 2:44 PM) 98.5 DegF (10/18/20 1:17 PM) Mode of Delivery (Oxygen) Room air (10/19/20 8:00 AM) Nasal cannula (10/19/20 5:55 AM) Room air (10/19/20 4:56 AM) Blood pressure sites Arm, right (10/19/20 8:00 AM) Arm, right (10/19/20 5:55 AM) Arm, right (10/19/20 4:56 AM) Temperature Route Oral (10/18/20 2:44 PM) Oral (10/18/20 1:17 PM) Dry Weight 146 kg (10/19/20 5:55 AM) 146 kg (10/19/20 4:58 AM) 146 kg (10/19/20 4:56 AM) Social History Social History Type Response Tobacco Use: 1PPD. Sex Medical Equipment Implanted Date:09/13/20Target Site:Abdomen Description Quantity MRI Company Model MESH VENTRALIGHT ECHO ELLIPS 4 - BARD ([id number]) 1 Bard Unknown HAYDEE:{01}[id number] Assigning Author ity:FDA
--- OUTSIDE RECORDS SUMMARY | 2022-10-14 11:49 | XMS_ITS | Continuity of Care Document ---
Author Name Unknown Organization [facility] Address [address] [place] [address]- Care Team Providers Care Automatic Chief Name Role Phone Soto RAMIREZ MD, Bal Serrano Primary Care Physician Encounter [facility] Date(s): 01/14/20 - 01/14/[address] [address]- [facility] Discharge Disposition: A-D/C Walkout Attending Physician: Xavier Milan MD Admitting Physician: [...] 02/13/1911:48:23 EST, Aerosol, Route to Pharmacy Electronically, [id number], [facility] #1111 Start Date: 02/13/19 Status: Ordered [...] 01/04/20 13:04:00 EDT, Route to Pharmacy Electronically, [facility]/pharmacy #1111, 183, cm, 01/04/20 8:53:00EDT, Height, 127, kg, 01/04/20 9:09:00 EDT, Dry Weight Start Date: 01/04/20 Status: Ordered fluticasone 50 mcg/inh nasal spray 2 sprays, Nares, Both, 2 times a day, # 9.9 mL, 0 Refills, Maintenance, 11/15/18 14:21:09 EDT, [place], 2 sprays Nares, Both 2 times a [...] 0 Refills, Maintenance, 01/09/20 6:19:00 EDT, Tablet, [facility]/pharmacy #1111, 183, cm, 01/09/20 5:34:00 EDT, Height, [...] oldest [Reference Range]: 1 Height 183 cm (01/14/20 1:58 PM) Weight 121.9 kg (01/14/20 1:58 PM) Oxygen Saturation [94-100 %] 100 % (01/14/20 1:58 PM) Pulse Rate [55-90 bpm] 104 bpm *H* (01/14/20 1:58 PM) Blood Pressure [90-138/55-84 mm Hg] 141/ 89mm Hg *H* (01/14/20 1:58 PM) Respiratory Rate [16-30 br/min] 16 br/mi n (01/14/20 1:58 PM) Temperature [96.8-100.4 DegF] 97.6 DegF (01/14/20 1:58 PM) Mode of Delivery (Oxygen) Room air (01/14/20 1:58 PM) Dry Weight 121.9 kg (01/14/20 1:58 PM) Weight Obtained Via Standing scale (01/14/20 1:58 PM) Social History Social History Type Response Smoking Status 10 or more cigarette s (1/2 pack or more)/day in last 30 days; Tobacco user in household: No entered on: 11/15/18 Sex
--- OUTSIDE RECORDS SUMMARY | 2022-10-14 11:49 | XMS_ITS | Continuity of Care Document ---
Author Name Unknown Organization [facility] Address [address] [place] [address]- Care Team Providers Care Utilization Supervisor Name Role Phone Soto RAMIREZ MD, Bal Serrnao Primary Care Physician [place] [facility] [place] - 03/08/[address] [address]- Encounter Diagnosis Antisocial personality disorder(Final) - 03/08/22 Urinary retention(Final) - 03/08/22 Discharge Disposition: A-D/C Home Attending Physician: Xavier Gavin DO Admitting Physician: Xavier Gavin DO Referring Physician: Not on Staff, Referring [...] 1 Refills, Maintenance, 01/01/22 15:55:00 EDT, Tablet, [id number], Partial fill upon patient request if the prescription is for a schedule II opioid drug., 186, cm, 01/01/22 11:49:00 EDT... Start Date: 01/01/22 Stop Date: 01/29/22 Status: Ordered benztropine 1 mg oral tablet 1 mg, 1, tablet, By Mouth, Daily, # 14 tablet, Refills 1, Tot. Refills 1, Maintenance, 01/01/22 15:54:00 EDT, Route to Pharmacy Electronically, [facility] #[id number], Partial fill upon patient request if the prescription is for a schedule II opi... Start Date: 01/01/22 Stop Date: 01/29/22 Status: Ordered busPIRone 15 mg oral tablet 1 tablet = 15 mg, By Mouth, 3 times a day, # 30 tablet, 2 Refills, Maintenance, 01/01/22 15:55:00 EDT, Tablet, [facility] #[id number], Partial fill upon patient request if the [...] 01/01/22 15:56:00 EDT, Route to Pharmacy Electronically, [facility] #[id number], Partial fill upon patient request if the [...] 2 Refills, Maintenance, 01/01/22 15:54:00 EDT, Tablet, [facility] #[id number], Partial fill upon patient request if the prescription is for a schedule II opioid drug., 186, cm, 01/01/22 11:49:00 E... Start Date: 01/01/22 Stop Date: 01/31/22 Status: Ordered docusate sodium 100 mg oral capsule 100 mg, 1, capsule, By Mouth, 2 times a day, # 60 capsule, Refills 0, Tot. Refills 0, Maintenance, 06/20/21 23:57:00 EDT, Route to Pharmacy Electronically, [facility] #[id number], Partial fill upon patient request if the prescription is for a salima... Start Date: 06/20/21 Status: Ordered furosemide 40 mg oral tablet 80 mg, 2, tablet, By Mouth, Daily, # 14 tablet, Refills 1, Tot. Refills 1, Maintenance, 01/02/22 9:27:00 EDT, Route to Pharmacy Electronically, [facility] #[id number], Partial fill upon patient request if the prescription is for a schedule II opi... Start Date: 01/02/22 Stop Date: 01/16/22 Status: Ordered levothyroxine 0.05 mg oral tablet 1 tablet = 50 mcg, By Mouth, Daily, # 14 tablet, 1 Refills, Maintenance, 01/02/22 9:22:00 EDT, Tablet, [facility] #[id number], Partial fill upon patient request if the [...] 2 Refills, Maintenance, 01/01/22 15:54:00 EDT, Capsule, [facility] #[id number], Partial fill upon patient request if the [...] 01/02/22 9:33:00 EDT, Route to Pharmacy Electronically, [facility] #[id number], Partialfill upon patient request if the prescription [...] [Reference Range]: 1 2 Height 186 cm (03/08/22 1:41 PM) 186 cm (03/08/22 1:35 PM) Weight 107 kg (03/08/22 1:41 PM) 107 kg (03/08/22 1:35 PM) Oxygen Saturation [94-100 %] 98 % (03/08/22 1:41 PM) Pulse Rate [55-90 bpm] 97 bpm *H* (03/08/22 1:41 PM) Body Mass Index [18.5-24.99 kg/m2] 30.93 kg/m2 *>HHI* (03/08/22 1:41 PM) Blood Pressure [90-138/55-84 mm Hg] 126/ 75mm Hg (03/08/22 1:41 PM) Respiratory Rate [16-30 br/min] 18 br/mi n (03/08/22 1:41 PM) Mode of Delivery (Oxygen) Room air (03/08/22 1:41 PM) Blood pressure sites Arm, left (03/08/22 1:41 PM) Temperature Route Temporal (03/08/22 1:41 PM) Dry Weight 107 kg (03/08/22 1:41 PM) 107 kg (03/08/22 1:35 PM) Social History Social History Type Response [...] Code MRI Safety Implantable Status 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 [id number] Unknown [id number] Unknown 03/11/21 Unknown Unknown Active GS1 Patient Care team information Care Team Personnel Name: oKnrad Gallegos RN Position: [facility] ED RN W/OE and Tasks Member Role: Primary Care Nurse Name: Trisha Alamo RN Position: S RN Supv Member Role: Primary Care Nurse Name: Rita Son NP Position: S Associate Professional Member Role: Primary Care Nurse Address: Address: [address] [place] [id number] Name: Sol Chanel RN Position: S RN Member Role: Primary Care Nurse Name: Trisha Beltrán RN Position: S RN Supv Member Role: Primary Care Nurse Name: Jackie Carrillo RN Position: S RN Member Role: Primary Care Nurse Name: Helene Pérez RN Position: S RN Member Role: Primary Care Nurse Name: Brenda Cuba RN Position: [facility] HBO Wound Member Role: Primary Care Nurse Name: Екатерина Chacko RN Position: [facility] RN Member Role: Primary Care Nurse Name: Anna Lackey RN Position: [facility] RN Member Role: Primary Care Nurse Name: Anna Oconnor RN Position: [facility] Hospital Dry Cans Operator Member Role: Primary Care Nurse Name: Fang Walsh RN Position: [facility] RN Member Role: Primary Care Nurse Name: Kip Gonzalez RN Position: [facility] RN Member Role: Primary Care Nurse Address: Address: [address] [place] [address]- [place] Name: Kari Grijalva RN Position: [facility] RN Member Role: Primary Care Nurse Name: Sunitha Gutierrez RN Position: [facility] RN Member Role: Primary Care Nurse Name: April Acuña RN Position: [facility] RN Member Role: Primary Care Nurse Name: Li Esquivel RN Position: [facility] Dry Cans Operator Member Role: Primary Care Nurse Name: Soto RAMIREZ MD, James C Position: [facility] Outreach Member Role: PCP Address: Address: [address] [place] [phone]- [place] Name: Tunde White MD Position: [facility] Psychiatry MD Member Role: Lifetime Consulting Physician Address: Address: [address] [place] [phone]- [place] Name: Becky Varela RN Position: [facility] ED RN W/OE and Tasks Member Role: Patient Care Provider Name: Xavier Gavin DO Position: [facility] Resident Member Role: Admitting Physician Address: Address: [address] [place] [address] Dept [place] [address]- Care Team Related Persons Name: YOUSUFFORREST Address: [address] [place] [address] Name: MÓNICA CREWS
--- OUTSIDE RECORDS SUMMARY | 2022-10-14 11:50 | XMS_ITS | Continuity of Care Document ---
Author Name Unknown Organization [facility] Address [address] [place] [address]- Care Team Providers Care Curriculum Designer Name Role Phone Soto RAMIREZ MD, Bal Serrano Primary Care Physician Encounter [facility] Date(s): 03/09/20 - 03/09/[address] [address]- Encounter Diagnosis Abdominal hernia(Final) - 03/09/20 Discharge Disposition: A-D/C Home Attending Physician: Hieu [...] 02/13/1911:48:23 EST, Aerosol, Route to Pharmacy Electronically, [id number], [facility]/pharmacy #[id number] Start Date: 02/13/19 [...] 01/04/20 13:04:00 EDT, Route to Pharmacy Electronically, [facility]/pharmacy #[id number], 183, cm, 01/04/20 8:53:00EDT, Height, 127, kg, 01/04/20 9:09:00 EDT, Dry Weight Start Date: 01/04/20 Status: Ordered EC Naprosyn 375 mg oral enteric coated tablet 1 tablet = 375 mg, By Mouth, 2 times a day, # 20 tablet, 0 Refills, Maintenance, 03/09/20 20:02:00 EST, EC Tablet, [facility] #[id number], Partial fill upon patient request if the prescription is for a schedule II opioid drug., 183, cm, 01/14/20... Start Date: 03/09/20 Status: Ordered fluticasone 50 mcg/inh nasal spray 2 sprays, Nares, Both, 2 times a day, # 9.9 mL, 0 Refills, Maintenance, 11/15/18 14:21:09 EDT, [place], 2 sprays Nares, Both 2 times a [...] 0 Refills, Maintenance, 01/09/20 6:19:00 EDT, Tablet, [facility]/pharmacy #[id number], 183, cm, 01/09/20 5:34:00 EDT, Height, [...] recent to oldest [Reference Range]: 1 Height 0 cm (03/09/20 7:17 PM) Weight 123 kg (03/09/20 7:17 PM) Oxygen Saturation [94-100 %] 96 % (03/09/20 7:17 PM) Pulse Rate [55-90 bpm] 78 bpm (03/09/20 7:17 PM) Blood Pressure [90-138/55-84 mm Hg] 112/ 82mm Hg (03/09/20 7:17 PM) Respiratory Rate [16-30 br/min] 15 br/mi n *L* (03/09/20 7:17 PM) Temperature [96.8-100.4 DegF] 97.7 DegF (03/09/20 7:17 PM) Mode of Delivery (Oxygen) Room air (03/09/20 7:17 PM) Blood pressure sites Arm, left (03/09/20 7:17 PM) Temperature Route Temporal (03/09/20 7:17 PM) Dry Weight 123 kg (03/09/20 7:17 PM) Weight Obtained Via Patient/family state d (03/09/20 7:17 PM) Social History Social History Type Response Smoking Status 10 or more cigarette s (1/2 pack or more)/day in last 30 days; Tobacco user in household: No entered on: 11/15/18 Sex
--- OUTSIDE RECORDS SUMMARY | 2022-10-14 11:50 | XMS_ITS | Continuity of Care Document ---
Author Name Unknown Organization [facility] Address [address] [place] [address]- Care Team Providers Care Transition Social Worker Name Role Phone Soto RAMIREZ MD, Bal Serrano Primary Care Physician Encounter [facility] Date(s): 08/23/21 - 08/24/[address] [address]- Discharge Disposition: A-D/C Home Attending Physician: Doris [...] 05/18/18 Recorded tetanus/diphtheria/pertussis, acel(Tdap) 12/19/16 Recorded Medications acetaminophen-codeine 300 mg-30 mg oral tablet 1 tablet, Tablet, By Mouth, Once, JAZLYN, 08/23/21 23:50:00 EDT, Stop date 08/23/21 23:50:00 EDT Start Date: 08/23/21 Stop Date: 08/24/21 Status: Completed Advair Diskus 250 mcg-50 mcg inhalation powder Inhalation, 2 times a day, Refills 0, Maintenance, 05/21/20 9:46:00 EST Start Date: 05/21/20 Status: Ordered Advair Diskus 500 mcg-50 mcg inhalation powder 1, puffs, Inhalation, 2 times a day, # 1 each, Refills 0, Tot. Refills 0, Maintenance, 06/20/21 23:55:00 EDT, Inhaler, Route to Pharmacy Electronically, [id number], [email or web address] #[id number], 182, cm, 06/20/21 23:10:00 EDT,... Start Date: 06/20/21 Status: Ordered amitriptyline 150 mg oral tablet 1 tablet = 150 mg, By Mouth, Daily at bedtime, # 5 tablet, 4 Refills, Maintenance, 07/11/21 11:18:00 EDT, Tablet, [email or web address] #[id number], Partial fill upon patient request if the prescription isfor a schedule II opioid drug., 182, cm, 06/20/21 2... Start Date: 07/11/21 Stop Date: 08/05/21 Status: Ordered ARIPiprazole 15 mg oral tablet 15 mg, 1, tablet, By Mouth, Daily, # 7 tablet, Refills 3, Tot. Refills 3, Maintenance, 07/14/21 11:18:00 EDT, Route to Pharmacy Electronically, [email or web address] #[id number], Partial fill upon patient request if the [...] 3 Refills, Maintenance, 07/14/21 11:19:00 EDT, Tablet, [email or web address] #[id number], Partial fill upon patient request if the [...] 06/20/21 23:55:00 EDT, Route to Pharmacy Electronically, [email or web address] #[id number], Partial fill upon patient request if the [...] 3 Refills, Maintenance, 07/14/21 11:19:00 EDT, Tablet, [email or web address] #[id number], Partial fill upon patient request if the prescription is for a schedule II opioid drug., 182, cm, 06/20/21 23:10:00 EDT... Start Date: 07/14/21 Stop Date: 08/11/21 Status: Ordered docusate sodium 100 mg oral capsule 100 mg, 1, capsule, By Mouth, 2 times a day, # 60 capsule, Refills 0, Tot. Refills 0, Maintenance, 06/20/21 23:57:00 EDT, Route to Pharmacy Electronically, [email or web address] #[id number], Partial fill upon patient request if the prescription is for a salima... Start Date: 06/20/21 Status: Ordered Flomax 0.4 mg oral capsule 0.4 mg, 1, capsule, By Mouth, Daily, # 30 capsule, Refills 0, Tot. Refills 0, Maintenance, 06/20/2222:57:00 EDT, Route to Pharmacy Electronically, [email or web address] #[id number], Partial fill upon patient request if the prescription is for a schedule II... Start Date: 06/20/21 Status: Ordered fluticasone 50 mcg/inh nasal spray 2 sprays, Nares, Both, 2 times a day, # 9.9 mL, 0 Refills, Maintenance, 11/15/18 14:21:09 EDT, [place], 2 sprays Nares, Both 2 times a day Start Date: 11/15/18 Status: Ordered furosemide 40 mg oral tablet 40 mg, 1, tablet, By Mouth, Daily, # 7 tablet, Refills 0, Tot. Refills 0, Maintenance, 06/23/21 11:19:00 EDT, Route to Pharmacy Electronically, [email or web address] #[id number], Partial fill upon patient request if the prescription is for a schedule II opi... Start Date: 06/23/21 Stop Date: 06/30/21 Status: Ordered methocarbamol 500 mg oral tablet [...] drug. Start Date: 03/04/21 Status: Ordered Neurontin 400 mg oral capsule 800 mg, 2, capsule, By Mouth, 2 times a day, # 28 capsule, Refills 3, Tot. Refills 3, Maintenance, 07/14/21 11:19:00 EDT, Route to Pharmacy Electronically, [facility] #[id number], Partial fill upon patient request if the prescription is for a salima... Start Date: 07/14/21 Stop Date: 08/11/21 Status: Ordered pantoprazole 40 mg oral delayed release tablet = 40 mg, By Mouth, 2 times a day, # 14 tablet, 1 Refills, Maintenance, 06/30/21 11:19:00 EDT, EC Tablet, 182, cm, 06/20/21 23:10:00 EDT, Height, 141, kg, 06/20/21 23:10:00 EDT, Dry Weight Start Date: 06/30/21 Stop Date: 07/14/21 Status: Ordered Percocet-5/325 325 mg-5 mg oral tablet 2 tablet, Tablet, By Mouth, Once, Routine, 08/23/21 22:00:00 EDT, Stop date 08/23/21 22:00:00 EDT Start Date: 08/23/21 Stop Date: 08/23/21 Status: Completed pregabalin 200 mg oral capsule 1 capsule [...] opioid drug. Start Date: 06/20/21 Status: Ordered Valium 10 mg oral tablet 10 mg, 1, tablet, By Mouth, 3 times a day, PRN, Refills 0, Maintenance, for anxiety, 08/23/21 22:06:00 EDT, Partial fill upon patient request if the prescription is for a schedule II opioid drug. Start Date: 08/23/21 Status: Ordered Problem List Condition Effective Dates Status Health Status Inform ant Allergic rhinitis(Confirmed) Active Asthma(Confirmed) Active Bipolar disorder with depression(Confirmed) Active GERD (gastroesophageal reflu x disease)(Confirmed) Active Generalized anxiety disorder(Confirmed) Active Hypothyroidism(Confirmed) Active Severe obesity(Confirmed) Active Results Radiology Reports * Exam Date Time Procedure Performing Provider Status 08/23/21 10:23 PM Knee 3 Views Right Valladares , Aroldouthao T; Auth (Verified) Notes: (Knee 3 Views Right) Reason For Exam: Trauma RESULT: Knee 3 Views Right Knee 3 Views Right Hx of Present Illness: walking on stairs and felt pop in right kknee; Reason: Trauma; Clinical Question(s): Fracture COMPARISON: 02/06/2021. FINDINGS: There is no evidence of acute or healing fracture, dislocation or bone lesion. No arthritic changes. No osteochondral defects or intra-articular loose bodies. Questionable suprapatellar joint effusion. IMPRESSION: Questionable suprapatellar joint effusion without evidence of acute fracture or dislocation. WSN: [id number] Ordering Physician: Triston Saravia Dictated By: Gely Mckeon MD Dictated Date/Time: 08/23/21 10:26 p Reviewed By: Gely Mckeon MD Signed By: Gely Mckeon MD Signed Date/Time: 08/23/21 10:26 pm Transcribed By: RAVINDER Transcribed Date/Time: 08/23/21 10:24 pm Vital Signs Most recent to oldest [Reference Range]: 1 2 3 Height 183 cm (08/23/21 10:00 PM) Weight 136 kg (08/23/21 10:00 PM) Oxygen Saturation [94-100 %] 100 % (08/24/21 12:00 AM) 100 % (08/23/21 9:00 PM) Pulse Rate [55-90 bpm] 82 bpm (08/24/21 12:00 AM) 85 bpm (08/23/21 9:00 PM) Blood Pressure [90-138/55-84 mm Hg] 108/66mm Hg (08/24/21 12:00 AM) 125/81mm Hg (08/23/21 9:00 PM) Respiratory Rate [16-30 br/min] 20 br/min (08/24/21 12:33 AM) 20 br/min (08/24/21 12:00 AM) 20 br/min (08/23/21 10:56 PM) Temperature [96.8-100.4 DegF] 97.1 DegF (08/24/21 12:00 AM) 97.0 DegF (08/23/21 9:00 PM) Mode of Delivery (Oxygen) Room air (08/24/21 12:00 AM) Room air (08/23/21 9:00 PM) Blood pressure sites Arm, left (08/24/21 12:00 AM) Arm, left (08/23/21 9:00 PM) Temperature Route Temporal (08/24/21 12:00 AM) Temporal (08/23/21 9:00 PM) Dry Weight 136 kg (08/23/21 10:00 PM) Weight Obtained Via Patient/family state d (08/23/21 10:00 PM) Dry Weight Obtained Via Patient/family s tated (08/23/21 10:00 PM) Social History Social History Type Response Smoking Status 10 or more cigarette s (1/2 pack or more)/day in last 30 days entered on: 06/10/21 Sex Medical Equipment Implanted Date:09/13/20Target Site:Abdomen Description Quantity MRI Company Model MESH VENTRALIGHT ECHO ELLIPS 4 - BARD ([id number]) 1 Bard Unknown HAYDEE:{[id number] Assigning Author ity:FDA
--- OUTSIDE RECORDS SUMMARY | 2022-10-14 11:50 | XMS_ITS | Continuity of Care Document ---
Author Name Unknown Organization [facility] Address [address] [place] [address]- Care Team Providers Care Roll Filler Name Role Phone Soto RAMIREZ MD, Bal Serrano Primary Care Physician Encounter [facility] Date(s): 08/26/21 - 08/28/[address] [address]- Encounter Diagnosis Agitation(Final) - 08/27/21 Discharge Disposition: Transfer to [facility] Facility Attending Physician: Gokul Wallace MD Admitting Physician: [...] 05/18/18 Recorded tetanus/diphtheria/pertussis, acel(Tdap) 12/19/16 Recorded Medications acetaminophen-HYDROcodone 325 mg-5 mg oral tablet 2 tablet, Tablet, By Mouth, Once, PRN for Pain , Severe, Routine, 08/28/21 21:27:00 EDT Start Date: 08/28/21 Stop Date: 08/28/21 Status: Completed Advair Diskus 250 mcg-50 mcg inhalation powder Inhalation, 2 times a day, Refills 0, Maintenance, 05/21/20 9:46:00 EST Start Date: 05/21/20 Status: Ordered Advair Diskus 500 mcg-50 mcg inhalation powder 1, puffs, Inhalation, 2 times a day, # 1 each, Refills 0, Tot. Refills 0, Maintenance, 06/20/21 23:55:00 EDT, Inhaler, Route to Pharmacy Electronically, [id number], [facility] #[id number], 182, cm, 06/20/21 23:10:00 EDT,... Start Date: 06/20/21 Status: Ordered amitriptyline 150 mg oral tablet 1 tablet = 150 mg, By Mouth, Daily at bedtime, # 5 tablet, 4 Refills, Maintenance, 07/11/21 11:18:00 EDT, Tablet, [facility] #[id number], Partial fill upon patient request if the prescription isfor a schedule II opioid drug., 182yolanda, 06/20/21 2... Start Date: 07/11/21 Stop Date: 08/05/21 Status: Ordered ARIPiprazole 15 mg oral tablet 15 mg, 1, tablet, By Mouth, Daily, # 7 tablet, Refills 3, Tot. Refills 3, Maintenance, 07/14/21 11:18:00 EDT, Route to Pharmacy Electronically, [facility] #[id number], Partial fill upon patient request if the [...] 3 Refills, Maintenance, 07/14/21 11:19:00 EDT, Tablet, [facility] #[id number], Partial fill upon patient request if the [...] 06/20/21 23:55:00 EDT, Route to Pharmacy Electronically, [facility] #[id number], Partial fill upon patient request if the pre... Start Date: 06/20/21 Status: Ordered Combivent Respimat 20 mcg-100 mcg/inh inhalation aerosol 1 puffs, Inhalation, 4 times a day, Maintenance, 03/04/21 13:40:00 EST, Aerosol, Partial fill upon patient request if the prescription is for a schedule II opioid drug. Start Date: 03/04/21 Status: Ordered Depakote 250 mg oral enteric coated tablet 1 tablet = 250 mg, By Mouth, 2 times a day, # 60 tablet, 5 Refills, Maintenance, 08/26/21 23:27:00 EDT, Partial fill upon patient request if the prescription is for a schedule II opioid drug. Start Date: 08/26/21 Status: Ordered divalproex sodium 500 mg oral enteric coated tablet = 500 mg, By Mouth, 3 times a day, # 21 tablet, 3 Refills, Maintenance, 07/14/21 11:19:00 EDT, Tablet, [facility] #[id number], Partial fill upon patient request if the prescription is for a schedule II opioid drug., 182, cm, 06/20/21 23:10:00 EDT... Start Date: 07/14/21 Stop Date: 08/11/21 Status: Ordered docusate sodium 100 mg oral capsule 100 mg, 1, capsule, By Mouth, 2 times a day, # 60 capsule, Refills 0, Tot. Refills 0, Maintenance, 06/20/21 23:57:00 EDT, Route to Pharmacy Electronically, [facility] #[id number], Partial fill upon patient request if the prescription is for a salima... Start Date: 06/20/21 Status: Ordered Flomax 0.4 mg oral capsule 0.4 mg, 1, capsule, By Mouth, Daily, # 30 capsule, Refills 0, Tot. Refills 0, Maintenance, 06/20/2222:57:00 EDT, Route to Pharmacy Electronically, [facility] #[id number], Partial fill upon patient request if the prescription is for a schedule II... Start Date: 06/20/21 Status: Ordered fluticasone 50 mcg/inh nasal spray 2 sprays, Nares, Both, 2 times a day, # 9.9 mL, 0 Refills, Maintenance, 11/15/18 14:21:09 EDT, [place], 2 sprays Nares, Both 2 times a day Start Date: 11/15/18 Status: Ordered furosemide 40 mg oral tablet 40 mg, 1, tablet, By Mouth, Daily, # 7 tablet, Refills 0, Tot. Refills 0, Maintenance, 06/23/21 11:19:00 EDT, Route to Pharmacy Electronically, [facility] #[id number], Partial fill upon patient request if the [...] 07/14/21 11:19:00 EDT, Route to Pharmacy Electronically, [facility] #[id number], Partial fill upon patient request if the [...] Date: 06/30/21 Stop Date: 07/14/21 Status: Ordered prazosin 1 mg oral capsule 1 mg, Capsule, By Mouth, 08/28/21 15:00:00 EDT Start Date: 08/28/21 Stop Date: 08/28/21 Status: Completed prazosin 1 mg oral capsule 1 mg, Capsule, By Mouth, 08/28/21 21:00:00 EDT Start Date: 08/28/21 Stop Date: 08/28/21 Status: Completed pregabalin 200 mg oral capsule [...] opioid drug. Start Date: 06/20/21 Status: Ordered Tylenol 325 mg oral tablet 975 mg, Tablet, By Mouth, Every 6 hours, PRN for Pain , Moderate, Routine, 08/27/21 8:22:00 EDT Start Date: 08/27/21 Stop Date: 09/26/21 Status: Ordered Valium 10 mg oral tablet [...] Generalized anxiety disorder(Confirmed) Active Hypothyroidism(Confirmed) Active Results Orders for Microbiology Reports Name Date Urine Culture (URINE CULTURE) 08/26/21 Microbiology Reports TEST:Urine Culture STATUS:Auth (Verified) BODY SITE: SOURCE:URINE COLLECTED DATE/TIME:08/26/21 6:40 PM Urine Culture SPECIMEN DESCRIPTION : URINE CLEAN CATCH/MIDSTREAM SPECIAL REQUESTS : NONE CULTURE : <10,000 COL/ML REPORT STATUS : FINAL 08/28/2021 Radiology Reports * Exam Date Time Procedure Performing Provider Status 08/26/21 6:13 PM Chest Portable Mary Moreno; Au th (Verified) Notes: (Chest Portable) Reason For Exam: Shortness of Breath RESULT: Chest Portable Chest Portable Hx of Present Illness: pt states he is here for methadone withdrawal, states the clinic has been denying his methadone bc they think im taking too many other meds pt states he took his normal am meds, denies si hi; Reason: Shortness of Breath; Clinical Question(s): CHF COMPARISON: None. FINDINGS: LINES AND TUBES: None. LUNGS AND PLEURA: Clear lungs. Normal pulmonary vascularity. No pleural effusion. No pneumothorax. HEART, MEDIASTINUM AND WAYNE: Unchanged. BONES AND SOFT TISSUES: No acute abnormality. IMPRESSION: No acute abnormality. WSN: [id number] Ordering Physician: Ana Travis Dictated By: Carter Trent MD Dictated Date/Time: 08/26/21 6:35 pm Reviewed By: Carter Trent MD Signed By: Carter Trent MD Signed Date/Time: 08/26/21 6:35 pm Transcribed By: RAVINDER Transcribed Date/Time: 08/26/21 6:33 pm Vital Signs Most recent to oldest [Reference Range]: 1 2 3 Height 188 cm (08/27/21 10:33 PM) 188 cm (08/27/21 1:53 PM) 188 cm (08/27/21 5:52 AM) Weight 100 kg (08/27/21 10:33 PM) 100 kg (08/27/21 5:52 AM) 100 kg (08/26/21 10:46 PM) Oxygen Saturation [94-100 %] 99 % (08/28/21 9:03 PM) 99 % (08/28/21 3:42 PM) 97 % (08/27/21 10:33 PM) Pulse Rate [55-90 bpm] 85 bpm (08/28/21 9:03 PM) 83 bpm (08/28/21 3:42 PM) 98 bpm *H* (08/27/21 10:33 PM) Body Mass Index [18.5-24.99] 28.29 *H* (08/27/21 10:33 PM) 28.29 *H* (08/27/21 5:52 AM) 28.29 *H* (08/26/21 10:46 PM) Blood Pressure [90-138/55-84 mm Hg] 116/83mm Hg (08/28/21 9:03 PM) 116/83mm Hg (08/28/21 3:42 PM) 116/83mm Hg (08/28/21 3:35 PM) Respiratory Rate [16-30 br/min] 20 br/min (08/28/21 9:03 PM) 20 br/min (08/28/21 6:56 PM) 20 br/min (08/28/21 3:42 PM) Temperature [96.8-100.4 DegF] 97.2 DegF (08/28/21 3:42 PM) 97.1 DegF (08/27/21 10:33 PM) 98.0 DegF (08/27/21 9:15 AM) Liters per Minute 0 L/min (08/27/21 1:53 PM) Mode of Delivery (Oxygen) Room air (08/28/21 9:03 PM) Room air (08/28/21 3:42 PM) Room air (08/27/21 10:33 PM) Blood pressure sites Arm, right (08/27/21 10:33 PM) Arm, right (08/27/21 1:53 PM) Arm, left (08/27/21 9:15 AM) Temperature Route Temporal (08/28/21 3:42 PM) Temporal (08/27/21 10:33 PM) Temporal (08/27/21 9:15 AM) Dry Weight 100 kg (08/27/21 10:33 PM) 100 kg (08/27/21 5:52 AM) 100 kg (08/26/21 10:46 PM) Social History Social History Type Response Smoking Status 10 or more cigarette s (1/2 pack or more)/day in last 30 days entered on: 06/10/21 Sex Medical Equipment Implanted Date:09/13/20Target Site:Abdomen Description Quantity MRI Company Model MESH VENTRALIGHT ECHO ELLIPS 4 - BARD ([id number]) 1 Bard Unknown HAYDEE:{[id number] Assigning Author ity:FDA
--- OUTSIDE RECORDS SUMMARY | 2022-10-14 11:50 | XMS_ITS | Continuity of Care Document ---
Author Name Unknown Organization [facility] Address [address] [place] [address]- Care Team Providers Care Civil Engineer'S Aide Name Role Phone Not on Staff, PCP Primary Care Physician Unavail able Encounter [facility] Date(s): 05/21/22 - 05/22/[address] [address]- Discharge Disposition: Transfer to [facility] Facility Attending Physician: Mansoor Swann MD Admitting Physician: Mansoor Swann MD Referring Physician: Not on Staff, Referring MD Allergies, Adverse Reactions, Alerts Substance Reaction Severity Status Zoloft Active Thorazine Active traZODone Active ZyPREXA Active Immunizations Given and Recorded Vaccine Date Status Refusal Reason tetanus/diphtheria/pertussis, acel(Tdap) 04/09/22 Recorded tetanus/diphtheria/pertussis, acel(Tdap) 05/18/18 Recorded tetanus/diphtheria/pertussis, acel(Tdap) 12/19/16 Recorded [id number] 12y+ bivalent booster vax 02/11/22 Recorded SARS-CoV-2 [...] 1 Refills, Maintenance, 05/08/22 12:50:00 EST, Tablet, [facility] #[id number], Partial fill upon patient request if the prescription is for a schedule II opioid drug., yolanda Go, 05/08/22 7:19:00 EST,... Start Date: 05/08/22 Stop Date: 06/05/22 Status: Ordered benztropine 1 mg oral tablet 1 mg, 1, tablet, By Mouth, Daily, # 14 tablet, Refills 1, Tot. Refills 1, Maintenance, 05/08/22 12:50:00 EST, Route to Pharmacy Electronically, [facility] #[id number], Partial fill upon patient request if the prescription is for a schedule II opi... Start Date: 05/08/22 Stop Date: 06/05/22 Status: Ordered busPIRone 30 mg oral tablet 1 tablet = 30 mg, By Mouth, 2 times a day, # 28 tablet, 0 Refills, Maintenance, 05/08/22 12:59:00 EST, Tablet, [facility] #[id number], Partial fill upon patient request if the prescription is for a schedule II opioid drug., yolanda Go, 05/08/22 7:19... Start Date: 05/08/22 Stop Date: 05/22/22 Status: Ordered chlorproMAZINE 100 mg oral tablet = 100 mg, By Mouth, Daily at bedtime, # 14 tablet, 0 Refills, Maintenance, 05/08/22 12:52:00 EST, Tablet, [facility] #[id number], Partial fill upon patient request if the prescription is for a schedule II opioid drug., yolanda Go, 05/08/22 7:19:00 E... Start Date: 05/08/22 Stop Date: 05/22/22 Status: Ordered chlorproMAZINE 50 mg oral tablet = 50 mg, By Mouth, Daily before lunch, # 14 tablet, 0 Refills, Maintenance, 05/08/22 12:51:00 EST, Tablet, [facility] #[id number], Partial fill upon patient request if the prescription is for a schedule II opioid drug., yolanda Go, 05/08/22 7:19:00... Start Date: 05/08/22 Stop Date: 05/22/22 Status: Ordered chlorproMAZINE 50 mg oral tablet 1 tablet = 50 mg, By Mouth, Daily in AM, # 180 tablet, 0 Refills, Maintenance, 05/08/22 12:53:00 EST, Tablet, [facility] #[id number], Partial fill upon patient request if the prescription is fora schedule II opioid drug., 176, cm, 05/08/22 7:19:... Start Date: 05/08/22 Status: Ordered cloNIDine 0.2 mg oral tablet 0.2 mg, 1, tablet, By Mouth, 2 times a day, # 20 tablet, Refills 2, Tot. Refills 2, Maintenance, 01/01/22 15:56:00 EDT, Route to Pharmacy Electronically, [facility] #[id number], Partial fill upon patient request if the prescription is for a sched... Start Date: 01/01/22 Stop Date: 01/31/22 Status: Ordered divalproex sodium 500 mg oral enteric coated tablet 1 tablet = 500 mg, By Mouth, Daily in AM, # 14 tablet, 0 Refills, Maintenance, 05/08/22 12:49:00 EST, Tablet, [facility] #[id number], Partial fill upon patient request if the prescription is fora schedule II opioid drug., 176, cm, 05/08/22 7:19:... Start Date: 05/08/22 Stop Date: 05/22/22 Status: Ordered divalproex sodium 500 mg oral enteric coated tablet 2 tablets, By Mouth, Daily at bedtime, # 28 tablet, 0 Refills, Maintenance, 05/08/22 12:49:00 EST, Tablet, [facility] #[id number], Partial fill upon patient request if the prescription is for a schedule II opioid drug., 176, cm, 05/08/22 7:19:00... Start Date: 05/08/22 Stop Date: 05/22/22 Status: Ordered docusate sodium 100 mg oral capsule 100 mg, 1, capsule, By Mouth, 2 times a day, # 60 capsule, Refills 0, Tot. Refills 0, Maintenance, 06/20/21 23:57:00 EDT, Route to Pharmacy Electronically, [facility] #[id number], Partial fill upon patient request if the [...] AM, 0 Refills, Maintenance, 03/10/22 8:17:00 EST, [place], Partial fill upon patient request if the [...] 1 Refills, Maintenance, 01/02/22 9:22:00 EDT, Tablet, [facility] #[id number], Partial fill upon patient request if the [...] oldest [Reference Range]: 1 2 3 Height 180 cm (05/21/22 11:45 AM) Weight 118 kg (05/22/22 7:30 AM) 118 kg (05/21/22 11:45 AM) Oxygen Saturation [94-100 %] 95 % (05/22/22 7:30 AM) 95 % (05/22/22 3:00 AM) 97 % (05/22/22 1:00 AM) Pulse Rate [55-90 bpm] 62 bpm (05/22/22 7:30 AM) 81 bpm (05/22/22 3:00 AM) 73 bpm (05/22/22 1:00 AM) Blood Pressure [90-138/55-84 mm Hg] 119/66mm Hg (05/22/22 7:30 AM) 112/56mm Hg (05/21/22 8:00 PM) 131/71mm Hg (05/21/22 11:45 AM) Respiratory Rate [16-30 br/min] 18 br/min (05/22/22 7:30 AM) 21 br/min (05/22/22 3:00 AM) 20 br/min (05/22/22 1:00 AM) Temperature [96.8-100.4 DegF] 97.6 DegF (05/22/22 7:30 AM) 98.0 DegF (05/21/22 8:00 PM) 98.4 DegF (05/21/22 11:45 AM) Mode of Delivery (Oxygen) Room air (05/22/22 7:30 AM) Room air (05/22/22 3:00 AM) Room air (05/22/22 1:00 AM) Blood pressure sites Arm, right (05/22/22 7:30 AM) Arm, left (05/21/22 8:00 PM) Arm, left (05/21/22 11:45 AM) Temperature Route Temporal (05/22/22 7:30 AM) Temporal (05/21/22 8:00 PM) Temporal (05/21/22 11:45 AM) Dry Weight 118 kg (05/21/22 11:45 AM) Dry Weight Obtained Via Patient/family s tated (05/21/22 11:45 AM) Social History Social History Type Response [...] Code MRI Safety Implantable Status 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 [id number] Unknown [id number] Unknown 03/11/21 Unknown Unknown Active GS1 Patient Care team information Care Team Personnel Name: Konrad Gallegos RN Position: [facility] ED RN W/OE and Tasks Member Role: Primary Care Nurse Name: Niki Bright RN Position: [facility] RN Member Role: Primary Care Nurse Name: Fang Che Position: [facility] RN Member Role: Primary Care Nurse Name: Trisha Alamo RN Position: [facility] RN Supv Member Role: Primary Care Nurse Name: Rita Son NP Position: [facility] Associate Professional Member Role: Primary Care Nurse Address: Address: [address] [place] [address]- [place] Name: Sol Chanel RN Position: [facility] RN Member Role: Primary Care Nurse Name: Trisha Beltrán RN Position: [facility] RN Supv Member Role: Primary Care Nurse Name: Helene Pérez RN Position: [facility] RN Member Role: Primary Care Nurse Name: Brenda Cuba RN Position: [facility] Wound Member Role: Primary Care Nurse Name: Kell Alonso RN Position: [facility] RN Member Role: Primary Care Nurse Name: Faraz Barriga RN Position: [facility] RN Member Role: Primary Care Nurse Name: Richa Clay LPN Position: [facility] RN Member Role: Primary Care Nurse Name: Екатерина Chacko RN Position: [facility] RN Member Role: Primary Care Nurse Name: Anna Lackey RN Position: [facility] RN Member Role: Primary Care Nurse Name: Elizabeth Ha RN Position: [facility] RN Member Role: Primary Care Nurse Name: Not on Staff, PCP Position: [facility] Physician (General Medicine) Member Role: PCP Name: Anna Oconnor RN Position: [facility] Hospital Source Water Protection Specialist Member Role: Primary Care Nurse Name: Kip Gonzalez RN Position: [facility] RN Member Role: Primary Care Nurse Address: Address: [address] [place] [address]- [place] Name: Anisha Hinds RN Position: [facility] RN Member Role: Primary Care Nurse Name: Kari Grijalva RN Position: [facility] RN Member Role: Primary Care Nurse Name: Sunitha Gutierrez RN Position: [facility] RN Member Role: Primary Care Nurse Name: April Acuña RN Position: [facility] RN Member Role: Primary Care Nurse Name: Li Esquivel RN Position: [facility] Hospital Source Water Protection Specialist Member Role: Primary Care Nurse Name: Tunde White MD Position: [facility] Psychiatry MD Member Role: Lifetime Consulting Physician Address: Address: [address] [place] [address]- [place] Name: Diann Castelan Position: [facility] ED RN W/OE and Tasks Member Role: Patient Care Provider Name: Mansoor Swann MD Position: [facility] ED Medicine MD Member Role: ED Attending Physician Address: Address: [address] [place] [address]- [place] Care Team Related Persons Name: FORREST TO Address: [address] [place] [address] Name: MÓNICA CREWS
--- OUTSIDE RECORDS SUMMARY | 2022-10-14 11:50 | XMS_ITS | Continuity of Care Document ---
Author Name Unknown Organization [facility] al Address [address] [place] [address]- Care Team Providers Care Insurance Attorney Name Role Phone Soto RAMIREZ MD, Bal Serrano Primary Care Physician ( [phone] Encounter [facility] Date(s): 01/04/20 - 01/04/[address] [address]- [facility] Discharge Disposition: A-D/C Home Attending Physician: Kelley Gutierrez DO Admitting Physician: Munira HENDERSON, Bryan Referring Physician: Konrad Dorsey MD Allergies, Adverse Reactions, Alerts Substance Reaction Severity Status Zoloft Active Thorazine Active traZODone Active ZyPREXA Active Medications albuterol CFC free 90 mcg/inh inhalation aerosol 2, puffs, Inhalation, Every 4 hours, PRN, # 18 Gm, Refills 3, Tot. Refills 3, Maintenance, 02/13/1911:48:23 EST, Aerosol, Route to Pharmacy Electronically, [id number], [facility]/pharmacy #[id number] Start Date: 02/13/19 Status: Ordered busPIRone 15 mg oral tablet 1 tablet = 15 mg, By Mouth, 3 times a day, # 90 tablet, 0 Refills, Maintenance, 02/28/19 12:08:43 EST, Tablet, [facility] #[id number], 183, cm, 02/28/19 11:39:08 EST, Height, 124, kg, 02/22/19 8:26:27 EST, Dry Weight Start Date: 02/28/19 Status: Ordered cloNIDine 0.1 mg oral tablet 0.1 mg, 1, tablet, By Mouth, 2 times a day, # 10 tablet, Refills 0, Tot. Refills 0, Maintenance, 01/04/20 13:04:00 EDT, Route to Pharmacy Electronically, [facility]/pharmacy #[id number], 183, cm, 01/04/20 8:53:00EDT, Height, 127, kg, 01/04/20 9:09:00 EDT, Dry Weight Start Date: 01/04/20 Status: Ordered fluticasone 50 mcg/inh nasal spray 2 sprays, Nares, Both, 2 times a day, # 9.9 mL, 0 Refills, Maintenance, 11/15/18 14:21:09 EDT, [place], 2 sprays Nares, Both 2 times a day Start Date: 11/15/18 Status: Ordered Habitrol 21 mg/24 hr transdermal film, extended release 1 patch, Topically, Daily, for 7 days, # 7 patch, 0 Refills, Acute 01/11/20 13:04:00 EDT, 01/04/20 13:04:00 EDT, Patch, [facility]/pharmacy #[id number], 1 patch Topically Daily,x7 days, 183, cm, 01/04/20 8:53:00 EDT, Height, 127, kg, 01/04/20 9:09:00 EDT, Dry Weight Start Date: 01/04/20 Stop Date: 01/11/20 Status: Ordered hydrOXYzine pamoate 50 mg oral capsule = 50 mg, By Mouth, 3 times a day, PRN Anxiety, # 12 capsule, 0 Refills, Acute 01/05/20 10:00:00 EDT, 01/04/20 13:04:00 EDT, Capsule, [facility]/pharmacy #[id number], 183, cm, 01/04/20 8:53:00 EDT, Height, 127, kg, 01/04/20 9:09:00 EDT, Dry Weight Start Date: 01/04/20 Stop Date: 01/05/20 Status: Ordered levothyroxine 0.05 mg oral tablet 1 tablet = 50 mcg, By Mouth, Every Wednesday, # 30 tablet, 0 Refills, Maintenance, 12/09/18 17:02:46 EDT, Tablet Start Date: 12/09/18 Status: Ordered montelukast 10 mg oral tablet 10 mg, 1, tablet, By Mouth, Daily, Refills 0, Maintenance, 10/25/19 7:36:00 EDT Start Date: 10/25/19 Status: Ordered ondansetron 4 mg oral tablet, disintegrating 1 tablet = 4 mg, By Mouth, Every 8 hours, PRN as needed for nausea/vomiting, # 20 tablet, 0 Refills, Maintenance, 01/02/20 15:45:00 EDT, DIS Tablet, [facility]/pharmacy #[id number], 183, cm, 01/02/20 15:23:00 EDT, Height, 123.4, kg, 01/02/20 15:23:00 EDT, Dry Weight Start Date: 01/02/20 Stop Date: 01/09/20 Status: Ordered prochlorperazine 5 mg oral tablet See Instructions, PRN Vomiting, 1 tablet By Mouth 3 times a day, # 5 capsule, 0 Refills, Acute 01/06/20 2:15:00 EDT, 01/04/20 2:02:00 EDT, Tablet, [facility]/pharmacy #[id number], 183, cm, 01/04/20 1:02:00 EDT, Height, 100, kg, 01/04/20 1:02:00 EDT, Dry Weight Start Date: 01/04/20 Stop Date: 01/06/20 Status: Ordered Protonix 40 mg oral delayed release tablet = 40 mg, By Mouth, 2 times a day, # 60 tablet, 2 Refills, Maintenance, 11/15/18 14:21:31 EDT, EC Tablet Start Date: 11/15/18 Status: Ordered risperiDONE 2 mg oral tablet 2 mg, 1, tablet, By Mouth, Daily, # 5 tablet, Refills 0, Tot. Refills 0, Maintenance, 01/04/20 13:08:00 EDT, Route to Pharmacy Electronically, [facility]/pharmacy #[id number], 183, cm, 01/04/20 8:53:00 EDT, Height, 127, kg, 01/04/20 9:09:00 EDT, Dry Weight Start Date: 01/04/20 Status: Ordered Problem List Condition Effective Dates Status Health Status Inform ant Allergic rhinitis(Confirmed) Active Asthma(Confirmed) Active Bipolar disorder with depression(Confirmed) Active GERD (gastroesophageal reflu x disease)(Confirmed) Active Generalized anxiety disorder(Confirmed) Active Hypothyroidism(Confirmed) Active Results Radiology Reports * Exam Date Time Procedure Performing Provider Status 01/04/20 2:50 AM Abdomen Series W/ PA Chest [place] , T homas A; Auth (Verified) Notes: (Abdomen Series W/ PA Chest) Reason For Exam: Distention RESULT: Abdomen Series W/ PA Chest Abdomen Series W/ PA Chest Hx of Present Illness: pt found walking self to the ED, return visit for nausea and vomiting x 6-7 days with generalized abd pain all over . pt seen the other day and given prescription for zofran with no relief, poor po intake.; Reason: Distention; Clinical Question(s): Obstruction; Free Air COMPARISON: Chest film 10/27/2019 FINDINGS: No basilar airspace disease or free air under the diaphragm. No dilated small or large bowel. IMPRESSION: No evidence of obstruction, ileus or pneumoperitoneum. WSN: [id number] Ordering Physician: Konrad Dorsey Dictated By: Darren Jackson MD Dictated Date/Time: 01/04/20 7:55 am Reviewed By: Darren Jackson MD Signed By: Darren Jackson MD Signed Date/Time: 01/04/20 7:55 am Transcribed By: RAVINDER Transcribed Date/Time: 01/04/20 7:54 am Vital Signs Most recent to oldest [Reference Range]: 1 2 3 Height 183 cm (01/04/20 8:05 AM) 183 cm (01/04/20 1:02 AM) Weight 124.4 kg (01/04/20 8:05 AM) 100 kg (01/04/20 1:02 AM) Oxygen Saturation [94-100 %] 100 % (01/04/20 8:05 AM) 100 % (01/04/20 6:33 AM) 99 % (01/04/20 4:21 AM) Pulse Rate [55-90 bpm] 97 bpm *H* (01/04/20 8:05 AM) 100 bpm *H* (01/04/20 6:33 AM) 108 bpm *H* (01/04/20 4:21 AM) Body Mass Index [18.5-24.99] 37.15 *>HHI* (01/04/20 8:05 AM) Blood Pressure [90-138/55-84 mm Hg] 140/95mm Hg *H* (01/04/20 8:05 AM) 160/100mm Hg *H* (01/04/20 6:33 AM) 142/89mm Hg *H* (01/04/20 4:21 AM) Respiratory Rate [16-30 br/min] 20 br/min (01/04/20 8:05 AM) 17 br/min (01/04/20 6:33 AM) 19 br/min (01/04/20 4:21 AM) Temperature [96.8-100.4 DegF] 98.6 DegF (01/04/20 8:05 AM) 98.4 DegF (01/04/20 6:33 AM) 99 DegF (01/04/20 1:02 AM) Mode of Delivery (Oxygen) Room air (01/04/20 8:05 AM) Room air (01/04/20 6:33 AM) Room air (01/04/20 4:21 AM) Blood pressure sites Arm, right (01/04/20 8:05 AM) Arm, left (01/04/20 6:33 AM) Arm, left (01/04/20 4:21 AM) Temperature Route Oral (01/04/20 8:05 AM) Oral (01/04/20 6:33 AM) Tympanic (01/04/20 1:02 AM) Dry Weight 127.0 kg (01/04/20 8:05 AM) 100 kg (01/04/20 1:02 AM) Weight Obtained Via Patient/family stated (01/04/20 1:02 AM) Dry Weight Obtained Via Patient/family stated (01/04/20 8:05 AM) Patient/family stated (01/04/20 1:02 AM) Social History Social History Type Response Smoking Status 10 or more cigarette s (1/2 pack or more)/day in last 30 days; Tobacco user in household: No entered on: 11/15/18 Sex
--- OUTSIDE RECORDS SUMMARY | 2022-10-14 11:50 | XMS_ITS | Continuity of Care Document ---
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 Start Date: 06/21/21 Stop Date: 06/25/21 Status: Ordered Advair Diskus 250 mcg-50 mcg inhalation powder Inhalation, 2 times a day, Refills 0, Maintenance, 05/21/20 9:46:00 EST Start Date: 05/21/20 Status: Ordered Advair Diskus 500 mcg-50 mcg inhalation powder 1, puffs, Inhalation, 2 times a day, # 1 each, Refills 0, Tot. Refills 0, Maintenance, 06/20/21 23:55:00 EDT, Inhaler, Route to Pharmacy Electronically, [id number], [facility] #[id number], 182, cm, 06/20/21 23:10:00 EDT,... Start Date: 06/20/21 Status: Ordered amitriptyline 150 mg oral tablet 1 tablet = 150 mg, By Mouth, Daily at bedtime, # 5 tablet, 4 Refills, Maintenance, 07/11/21 11:18:00 EDT, Tablet, [facility] #[id number], Partial fill upon patient request if the prescription isfor a schedule II opioid drug., 182, cm, 06/20/21 2... Start Date: 07/11/21 Stop Date: 08/05/21 Status: Ordered amitriptyline 150 mg oral tablet 1 tablet = 150 mg, By Mouth, Daily at bedtime, for 5 days, # 5 tablet, 4 Refills, Hard Stop 07/11/21 11:18:00 EDT, 06/16/21 11:18:00 EDT, Tablet, [id number], Partial fill upon patient request if the prescription is for a schedule II o... Start Date: 06/16/21 Stop Date: 07/11/21 Status: Ordered ARIPiprazole 15 mg oral tablet 15 mg, 1, tablet, By Mouth, Daily, # 7 tablet, Refills 3, Tot. Refills 3, Maintenance, 07/14/21 11:18:00 EDT, Route to Pharmacy Electronically, [facility] #[id number], Partial fill upon patient request if the prescription is for a schedule II opi... Start Date: 07/14/21 Stop Date: 08/11/21 Status: Ordered ARIPiprazole 15 mg oral tablet 15 mg, 1, tablet, By Mouth, Daily, for 7 days, # 7 tablet, Refills 3, Tot. Refills 3, Hard Stop 07/14/21 11:18:00 EDT, 06/16/21 11:18:00 EDT, Route to Pharmacy Electronically, [email or web address] #[id number], Partial fill upon patient request if the presc... Start Date: 06/16/21 Stop Date: 07/14/21 Status: Ordered baclofen 20 mg oral tablet 20 mg, 1, tablet, By Mouth, 2 times a day, Maintenance, 03/04/21 13:36:00 EST, Partial fill upon patient request if the prescription is for a schedule II opioid drug. Start Date: 03/04/21 Stop Date: 03/11/21 Status: Ordered bethanechol 10 mg oral tablet 1 tablet = 10 mg, By Mouth, 3 times a day, # 90 tablet, 0 Refills, Acute 07/21/21 23:59:00 EDT, 06/20/21 23:57:00 EDT, Tablet, [facility] #[id number], Partial fill upon patient request if the prescription is for a schedule II opioid drug., 182, c... Start Date: 06/20/21 Stop Date: 07/21/21 Status: Ordered busPIRone 30 mg oral tablet 1 tablet = 30 mg, By Mouth, 2 times a day, # 14 tablet, 3 Refills, Maintenance, 07/14/21 11:19:00 EDT, Tablet, [email or web address] #[id number], Partial fill upon patient request if the prescription is for a schedule II opioid drug., 182, cm, 06/20/21 23:1... Start Date: 07/14/21 Stop Date: 08/11/21 Status: Ordered busPIRone 30 mg oral tablet 1 tablet = 30 mg, By Mouth, 2 times a day, for 7 days, # 14 tablet, 3 Refills, Hard Stop 07/14/21 11:19:00 EDT, 06/16/21 11:19:00 EDT, Tablet, [email or web address] #[id number], Partial fill upon patient request if the prescription is for a schedule II opio... Start Date: 06/16/21 Stop Date: 07/14/21 Status: Ordered calcium carbonate 500 mg (200 [...] 06/20/21 23:55:00 EDT, Route to Pharmacy Electronically, [facility] #[id number], Partial fill upon patient request if the [...] 3 Refills, Maintenance, 07/14/21 11:19:00 EDT, Tablet, [facility] #[id number], Partial fill upon patient request if the prescription is for a schedule II opioid drug., 182, cm, 06/20/21 23:10:00 EDT... Start Date: 07/14/21 Stop Date: 08/11/21 Status: Ordered divalproex sodium 500 mg oral enteric coated tablet = 500 mg, By Mouth, 3 times a day, for 7 days, # 21 tablet, 3 Refills, Hard Stop 07/14/21 11:19:00 EDT, 06/16/21 11:19:00 EDT, Tablet, [facility] #[id number], Partial fill upon patient request if the prescription is for a schedule II opioid drug.... Start Date: 06/16/21 Stop Date: 07/14/21 Status: Ordered docusate sodium 100 mg oral capsule 100 mg, 1, capsule, By Mouth, 2 times a day, # 60 capsule, Refills 0, Tot. Refills 0, Maintenance, 06/20/21 23:57:00 EDT, Route to Pharmacy Electronically, [facility] #[id number], Partial fill upon patient request if the prescription is for a salima... Start Date: 06/20/21 Status: Ordered Flomax 0.4 mg oral capsule 0.4 mg, 1, capsule, By Mouth, Daily, # 30 capsule, Refills 0, Tot. Refills 0, Maintenance, 06/20/2222:57:00 EDT, Route to Pharmacy Electronically, [facility] #[id number], Partial fill upon patient request if the prescription is for a schedule II... Start Date: 06/20/21 Status: Ordered fluticasone 50 mcg/inh nasal spray 2 sprays, Nares, Both, 2 times a day, # 9.9 mL, 0 Refills, Maintenance, 11/15/18 14:21:09 EDT, [place], 2 sprays Nares, Both 2 times a day Start Date: 11/15/18 Status: Ordered furosemide 40 mg oral tablet 40 mg, 1, tablet, By Mouth, Daily, # 7 tablet, Refills 0, Tot. Refills 0, Maintenance, 06/23/21 11:19:00 EDT, Route to Pharmacy Electronically, [facility] #[id number], Partial fill upon patient request if the prescription is for a schedule II opi... Start Date: 06/23/21 Stop Date: 06/30/21 Status: Ordered furosemide 40 mg oral tablet 40 mg, 1, tablet, By Mouth, Daily, for 7 days, # 7 tablet, Refills 0, Tot. Refills 0, Hard Stop 06/23/21 11:19:00 EDT, 06/16/21 11:19:00 EDT, Route to Pharmacy Electronically, [facility] #[id number], Partial fill upon patient request if the presc... Start Date: 06/16/21 Stop Date: 06/23/21 Status: Ordered hydrOXYzine pamoate 25 mg oral capsule 2 capsule = 50 mg, By Mouth, 4 times a day, PRN Itch, for 7 days, # 28 capsule, 1 Refills, Acute 07/14/21 11:19:00 EDT, 06/30/21 11:19:00 EDT, Capsule, [facility] #[id number], Partial fill upon patient request if the prescription is for a schedul... Start Date: 06/30/21 Stop Date: 07/14/21 Status: Ordered hydrOXYzine pamoate 25 mg oral capsule 2 capsule = 50 mg, By Mouth, 4 times a day, PRN Itch, for 7 days, # 28 capsule, 1 Refills, Acute 06/30/21 11:19:00 EDT, 06/16/21 11:19:00 EDT, Capsule, [facility] #[id number], Partial fill upon patient request if the prescription is for a schedul... Start Date: 06/16/21 Stop Date: 06/30/21 Status: Ordered methocarbamol 500 [...] 07/14/21 11:19:00 EDT, Route to Pharmacy Electronically, [facility] #[id number], Partial fill upon patient request if the prescription is for a salima... Start Date: 07/14/21 Stop Date: 08/11/21 Status: Ordered Neurontin 400 mg oral capsule 800 mg, Capsule, By Mouth, STAT, 06/21/21 0:19:00 EDT Start Date: 06/21/21 Stop Date: 06/21/21 Status: Completed Neurontin 400 mg oral capsule 800 mg, 2, capsule, By Mouth, 2 times a day, for 7 days, # 28 capsule, Refills 3, Tot. Refills 3, Hard Stop 07/14/21 11:19:00 EDT, 06/16/21 11:19:00 EDT, Route to Pharmacy Electronically, [email or web address] #[id number], Partial fill upon patient request... Start Date: 06/16/21 Stop Date: 07/14/21 Status: Ordered OxyCODONE IR Tablet 5 mg, Tablet, By Mouth, Once, STAT, 06/21/21 0:09:00 EDT, Stop date 06/21/21 0:09:00 EDT Start Date: 06/21/21 Stop Date: 06/21/21 Status: Completed pantoprazole 40 mg oral delayed release tablet = 40 mg, By Mouth, 2 times a day, # 14 tablet, 1 Refills, Maintenance, 06/30/21 11:19:00 EDT, EC Tablet, 182, cm, 06/20/21 23:10:00 EDT, Height, 141, kg, 06/20/21 23:10:00 EDT, Dry Weight Start Date: 06/30/21 Stop Date: 07/14/21 Status: Ordered pantoprazole 40 mg oral delayed release tablet = 40 mg, By Mouth, 2 times a day, for 7 days, # 14 tablet, 1 Refills, Hard Stop 06/30/21 11:19:00 EDT, 06/16/21 11:19:00 EDT, EC Tablet, 184, cm, 06/16/21 8:01:00 EDT, Height, 139, kg, 06/12/21 7:35:00 EDT, Dry Weight Start Date: 06/16/21 Stop Date: 06/30/21 Status: Ordered Singulair = 10 mg, By [...] opioid drug. Start Date: 06/20/21 Status: Ordered Xanax 1 mg oral tablet 1 tablet = 1 mg, By Mouth, 3 times a day, PRN for anxiety, for 6 days, # 18 tablet, 3 Refills, Acute 07/11/21 9:18:00 EDT, 06/17/21 9:18:00 EDT, Tablet, Partial fill upon patient request if the prescription is for a schedule II opioid drug. Start Date: 06/17/21 Stop Date: 07/11/21 Status: Ordered Problem List Condition Effective Dates Status Health Status Inform ant Allergic rhinitis(Confirmed) Active Asthma(Confirmed) Active Bipolar disorder with depression(Confirmed) Active GERD (gastroesophageal reflu x disease)(Confirmed) Active Generalized anxiety disorder(Confirmed) Active Hypothyroidism(Confirmed) Active Severe obesity(Confirmed) Active Vital Signs Most recent to oldest [Reference Range]: 1 2 3 Height 182 cm (06/21/21 12:30 AM) 182 cm (06/20/21 11:10 PM) 182 cm (06/20/21 10:13 PM) Weight 141 kg (06/21/21 12:30 AM) 141 kg (06/20/21 11:10 PM) 141 kg (06/20/21 10:13 PM) Oxygen Saturation [94-100 %] 95 % (06/21/21 12:30 AM) 96 % (06/20/21 10:13 PM) Pulse Rate [55-90 bpm] 102 bpm *H* (06/21/21 12:30 AM) 116 bpm *H* (06/20/21 10:13 PM) Body Mass Index [18.5-24.99] 42.57 *>HHI* (06/21/21 12:30 AM) 42.57 *>HHI* (06/20/21 10:13 PM) Blood Pressure [90-138/55-84 mm Hg] 113/55mm Hg (06/21/21 12:30 AM) 133/64mm Hg (06/20/21 10:13 PM) Respiratory Rate [16-30 br/min] 16 br/min (06/21/21 12:40 AM) 16 br/min (06/21/21 12:40 AM) 18 br/min (06/21/21 12:30 AM) Temperature [96.8-100.4 DegF] 98.3 DegF (06/21/21 12:30 AM) 98.8 DegF (06/20/21 10:13 PM) Mode of Delivery (Oxygen) Room air (06/21/21 12:30 AM) Room air (06/20/21 10:13 PM) Blood pressure sites Arm, right (06/21/21 12:30 AM) Arm, right (06/20/21 10:13 PM) Temperature Route Temporal (06/21/21 12:30 AM) Temporal (06/20/21 10:13 PM) Dry Weight 141 kg (06/21/21 12:30 AM) 141 kg (06/20/21 11:10 PM) 141 kg (06/20/21 10:13 PM) Weight Obtained Via Patient/family state d (06/20/21 10:13 PM) Dry Weight Obtained Via Patient/family s tated (06/20/21 10:13 PM) Social History Social History Type Response Smoking Status 10 or more cigarette s (1/2 pack or more)/day in last 30 days entered on: 06/10/21 Sex Medical Equipment Implanted Date:09/13/20Target Site:Abdomen Description Quantity MRI Company Model MESH VENTRALIGHT ECHO ELLIPS 4 - BARD ([id number]) 1 Bard Unknown HAYDEE:{[id number] Assigning Author ity:FDA
--- OUTSIDE RECORDS SUMMARY | 2022-10-14 11:50 | XMS_ITS | Continuity of Care Document ---
Author Name Unknown Organization [facility] ter Address [address] [place] [id number] Care Team Providers Care [employer] Net Developer Name Role Phone Soto RAMIREZ MD, Bal Serrano Primary Care Physician [place] [facility] [place]): [place] 05/08/[address] [address] Encounter Diagnosis Cellulitis(Final) - 05/03/22 Discharge Disposition: A-D/C Home Attending Physician: Lary Thornton MD Admitting Physician: Gregg Quinones MD Referring Physician: Not on Staff, Referring MD Allergies, Adverse Reactions, Alerts Substance Reaction Severity Status Zoloft Active Thorazine Active traZODone Active ZyPREXA Active Immunizations Given and Recorded Vaccine Date Status Refusal Reason tetanus/diphtheria/pertussis, acel(Tdap) 04/09/22 Recorded tetanus/diphtheria/pertussis, acel(Tdap) 05/18/18 Recorded tetanus/diphtheria/pertussis, acel(Tdap) 12/19/16 Recorded [id number] 12y+ bivalent booster vax 02/11/22 Recorded SARS-CoV-2 (COVID-19) mRNA-1273 vaccine 05/01/21 R ecorded influenza virus vaccine, inactivated 01/11/21 Sandro rded influenza virus vaccine, inactivated 12/27/17 Sandro rded influenza virus vaccine, inactivated 04/28/16 Sandro rded SARS-CoV-2 (COVID-19) mRNA BNT-162b2 vac 09/19/20 Recorded SARS-CoV-2 (COVID-19) mRNA BNT-162b2 vac 08/29/20 Recorded tetanus-diphtheria toxoids (Td) 12/14/18 Recorded Medications ALPRAZolam 1 mg oral tablet 1 tablet = 1 mg, By Mouth, 3 times a day, PRN as needed for anxiety, for 5 days, # 10 tablet, 0 Refills, Acute 05/13/22 12:57:00 EST, 05/08/22 12:57:00 EST, Tablet, [facility] #[id number], Partial fill upon patient request if the prescription is... Start Date: 05/08/22 Stop Date: 05/13/22 Status: Ordered ARIPiprazole 30 mg oral tablet 1 tablet = 30 mg, By Mouth, Daily, # 14 tablet, 1 Refills, Maintenance, 05/08/22 12:50:00 EST, Tablet, [facility] #[id number], Partial fill upon patient request if the prescription is for a schedule II opioid drug., 176, cm, 05/08/22 7:19:00 EST,... Start Date: 05/08/22 Stop Date: 06/05/22 Status: Ordered benztropine 1 mg oral tablet 1 mg, 1, tablet, By Mouth, Daily, # 14 tablet, Refills 1, Tot. Refills 1, Maintenance, 05/08/22 12:50:00 EST, Route to Pharmacy Electronically, [facility] #[id number], Partial fill upon patient request if the prescription is for a schedule II opi... Start Date: 05/08/22 Stop Date: 06/05/22 Status: Ordered busPIRone 30 mg oral tablet 1 tablet = 30 mg, By Mouth, 2 times a day, # 28 tablet, 0 Refills, Maintenance, 05/08/22 12:59:00 EST, Tablet, [facility] #[id number], Partial fill upon patient request if the prescription is for a schedule II opioid drug., 176, cm, 05/08/22 7:19... Start Date: 05/08/22 Stop Date: 05/22/22 Status: Ordered cephalexin monohydrate 500 mg oral capsule 1 capsule = 500 mg, By Mouth, Every 6 hours, for 5 days, # 20 capsule, 0 Refills, Acute 05/13/22 12:58:00 EST, 05/08/22 12:58:00 EST, Capsule, [facility] #[id number], Partial fill upon patient request if the prescription is for a schedule II opio... Start Date: 05/08/22 Stop Date: 05/13/22 Status: Ordered chlorproMAZINE 100 mg oral tablet = 100 mg, By Mouth, Daily at bedtime, # 14 tablet, 0 Refills, Maintenance, 05/08/22 12:52:00 EST, Tablet, [facility] #[id number], Partial fill upon patient request if the prescription is for a schedule II opioid drug., 176, yolanda, 05/08/22 7:19:00 E... Start Date: 05/08/22 Stop Date: 05/22/22 Status: Ordered chlorproMAZINE 50 mg oral tablet = 50 mg, By Mouth, Daily before lunch, # 14 tablet, 0 Refills, Maintenance, 05/08/22 12:51:00 EST, Tablet, [facility] #[id number], Partial fill upon patient request if the prescription is for a schedule II opioid drug., 176yolanda, 05/08/22 7:19:00... Start Date: 05/08/22 Stop Date: 05/22/22 Status: Ordered chlorproMAZINE 50 mg oral tablet 1 tablet = 50 mg, By Mouth, Daily in AM, # 180 tablet, 0 Refills, Maintenance, 05/08/22 12:53:00 EST, Tablet, [facility] #[id number], Partial fill upon patient request if the prescription is fora schedule II opioid drug., 176yolanda, 05/08/22 7:19:... Start Date: 05/08/22 Status: Ordered cloNIDine 0.2 mg oral tablet 0.2 mg, 1, tablet, By Mouth, 2 times a day, # 20 tablet, Refills 2, Tot. Refills 2, Maintenance, 01/01/22 15:56:00 EDT, Route to Pharmacy Electronically, [facility] #[id number], Partial fill upon patient request if the prescription is for a sched... Start Date: 01/01/22 Stop Date: 01/31/22 Status: Ordered Codeine By Mouth, Every 4 hours, 0 Refills, Maintenance, 05/05/22 14:11:00 EST, Partial fill upon patient request if the prescription is for a schedule II opioid drug. Start Date: 05/05/22 Status: Ordered cyclobenzaprine 10 mg oral tablet 10 mg, Tablet, By Mouth, 3 times a day, PRN for Spasm, Routine, 05/04/22 0:30:00 EST Start Date: 05/04/22 Stop Date: 05/08/22 Status: Discontinued divalproex sodium 500 mg oral enteric coated tablet 1 tablet = 500 mg, By Mouth, Daily in AM, # 14 tablet, 0 Refills, Maintenance, 05/08/22 12:49:00 EST, Tablet, [facility] #[id number], Partial fill upon patient request if the prescription is fora schedule II opioid drug., 176, cm, 05/08/22 7:19:... Start Date: 05/08/22 Stop Date: 05/22/22 Status: Ordered divalproex sodium 500 mg oral enteric coated tablet 2 tablets, By Mouth, Daily at bedtime, # 28 tablet, 0 Refills, Maintenance, 05/08/22 12:49:00 EST, Tablet, [facility] #[id number], Partial fill upon patient request if the prescription is for a schedule II opioid drug., 176, cm, 05/08/22 7:19:00... Start Date: 05/08/22 Stop Date: 05/22/22 Status: Ordered docusate sodium 100 mg oral capsule 100 mg, 1, capsule, By Mouth, 2 times a day, # 60 capsule, Refills 0, Tot. Refills 0, Maintenance, 06/20/21 23:57:00 EDT, Route to Pharmacy Electronically, [facility] #[id number], Partial fill upon patient request if the [...] AM, 0 Refills, Maintenance, 03/10/22 8:17:00 EST, [place], Partial fill upon patient request if the [...] 1 Refills, Maintenance, 01/02/22 9:22:00 EDT, Tablet, [facility] #[id number], Partial fill upon patient request if the prescription is for a schedule II opioid drug., 186, cm, 01/02/22 8:00:00 EDT,... Start Date: 01/02/22 Stop Date: 01/30/22 Status: Ordered methocarbamol 750 mg oral tablet 1 tablet = 750 mg, By Mouth, 3 times a day, 0 Refills, Maintenance, 03/11/22 10:25:00 EST, Partial fill upon patient request if the prescription is for a schedule II opioid drug. Start Date: 03/11/22 Status: Ordered omeprazole 40 mg oral enteric coated capsule 1 capsule = 40 mg, By Mouth, Daily, # 30 capsule, 0 Refills, Maintenance, 03/11/22 10:23:00 EST, ECCaps[facility], Partial fill upon patient request if the prescription is for a schedule II opioid drug. Start Date: 03/11/22 Status: Ordered Percocet-5/325 325 mg-5 mg oral tablet 2 tablet, Tablet, By Mouth, Once, Hold for: sbp<100,drowsy, Routine, 05/08/22 11:00:00 EST, Stopdate 05/08/22 11:00:00 EST Start Date: 05/08/22 Stop Date: 05/08/22 Status: Completed pregabalin 200 mg oral capsule [...] anxiety disorder Confirmed Active Hypothyroidism Confirmed Active 1Problem added by Discern Expert Results Orders for Microbiology Reports Name Date Blood Culture 05/04/22 Blood Culture #2 05/04/22 Blood Culture 05/03/22 Blood Culture #2 05/03/22 Microbiology Reports TEST:Blood Culture, Second Order STATUS:Unauthenticated BODY SITE: SOURCE:Blood COLLECTED DATE/TIME:05/04/22 4:44 PM Blood Culture, Second Order SPECIMEN DESCRIPTION : BLOOD L HAND SPECIAL REQUESTS : NONE CULTURE : NO GROWTH 4 DAYS REPORT STATUS : PRELIMINARY REPORT TEST:Blood Culture STATUS:Unauthenticated BODY SITE: SOURCE:Blood COLLECTED DATE/TIME:05/04/22 4:43 PM Blood Culture SPECIMEN DESCRIPTION : BLOOD RAC SPECIAL REQUESTS : NONE CULTURE : NO GROWTH 4 DAYS REPORT STATUS : PRELIMINARY REPORT TEST:Blood Culture, Second Order STATUS:Auth (Verified) BODY SITE: SOURCE:Blood COLLECTED DATE/TIME:05/03/22 3:39 AM Blood Culture, Second Order SPECIMEN DESCRIPTION : BLOOD L ARM SPECIAL REQUESTS : CRITICAL VALUE CALLED AND VERIFIED BY READBACK FOR: GRAM POSITIVE COCCI IN BLOOD TO ED, [id number] ON 05/04/22 AT 0745. CULTURE : STAPHYLOCOCCUS EPIDERMIDIS SUSCEPTIBILITY TESTING NOT ROUTINELY PERFORMED ON THIS ISOLATE. Staphylococcus epidermidis was identified by multi-plex PCR Single isolates of coagulase negative Staphylococcus, Micrococcus sp., Bacillus sp., Corynebacterium sp. (or Diptheroids), Cutibacterium (formerly Propionibacterium) acnes and Viridans group streptococci could be skin contaminates. Multiple isolates of these organisms are more likely to be significant. REPORT STATUS : FINAL 05/05/2022 TEST:Blood Culture STATUS:Auth (Verified) BODY SITE: SOURCE:Blood COLLECTED DATE/TIME:05/03/22 2:25 AM Blood Culture SPECIMEN DESCRIPTION : BLOOD NO SITE SPECIAL REQUESTS : NONE CULTURE : NO GROWTH 5 DAYS. REPORT STATUS : FINAL 05/08/2022 Radiology Reports * Exam Date Time Procedure Performing Provider Status 05/06/22 4:25 PM US Doppler Ext Lower Venous Bilat Paula Hernandez; Auth (Verified) Notes: (US Doppler Ext Lower Venous Bilat) Reason For Exam: Swelling Extremities RESULT: US Doppler Ext Lower Venous Bilat US Doppler Ext Lower Venous Bilat Reason: Swelling Extremities; Clinical Question(s): Thrombosis COMPARISON: Left lower extremity Doppler ultrasound 06/16/2021 IMAGING TECHNIQUE: Ultrasound of the veins from the groin through the calf was performed using grayscale, color, and spectral Doppler ultrasound assessing for complete compressibility and normal flowcharacteristics. FINDINGS: RIGHT LOWER EXTREMITY: Common femoral vein: Patent. No thrombosis. Femoral vein: Patent. No thrombosis. Popliteal vein: Patent. No thrombosis. Gastrocnemius veins: The visualized portions are patent without evidence of thrombosis. Peroneal veins: The visualized portions are patent without evidence of thrombosis. Posterior tibial veins: Only seen proximally. The visualized portions are patent without evidence of thrombosis. LEFT LOWER EXTREMITY: Common femoral vein: Patent. No thrombosis. Femoral vein: Patent. No thrombosis. Popliteal vein: Patent. No thrombosis. Gastrocnemius veins: Patent, but only seen with color Doppler analysis. Peroneal veins: The visualized portions are patent without evidence of thrombosis. Posterior tibial veins: The visualized portions are patent without evidence of thrombosis. OTHER FINDINGS: There is diffuse calf edema. Scattered prominent lymph nodes in both groins which retain their fatty concepción. The appearance is nonspecific and may be reactive. IMPRESSION: 1. No evidence of deep venous thrombosis. 2. Diffuse calf edema bilaterally. I have personally reviewed the images and I agree with this report. WSN: [id number] Ordering Physician: Paco Jones Dictated By: Joe Yeh DO Dictated Date/Time: 05/06/22 4:54 pm Reviewed By: Lauri Gonzales MD Signed By: Lauri Gonzales MD Signed Date/Time: 05/06/22 4:59 pm Transcribed By: RAVINDER Transcribed Date/Time: 05/06/22 4:41 pm Vital Signs Most recent to oldest [Reference Range]: 1 2 3 Height 176 cm (05/08/22 7:19 AM) 176 cm (05/08/22 3:17 AM) 176 cm (05/07/22 9:00 PM) Oxygen Saturation [94-100 %] 97 % (05/08/22 7:19 AM) 100 % (05/08/22 3:17 AM) 98 % (05/07/22 9:00 PM) Pulse Rate [55-90 bpm] 93 bpm *H* (05/08/22 7:19 AM) 101 bpm *H* (05/08/22 3:17 AM) 97 bpm *H* (05/07/22 9:00 PM) Blood Pressure [90-138/55-84 mm Hg] 107/66mm Hg (05/08/22 7:19 AM) 127/68mm Hg (05/08/22 3:17 AM) 110/62mm Hg (05/07/22 9:00 PM) Respiratory Rate [16-30 br/min] 18 br/min (05/08/22 12:10 PM) 18 br/min (05/08/22 12:08 PM) 18 br/min (05/08/22 11:10 AM) Temperature [96.8-100.4 DegF] 97.5 DegF (05/08/22 7:19 AM) 97.8 DegF (05/08/22 3:17 AM) 98.4 DegF (05/07/22 9:00 PM) Liters per Minute 6 L/min (05/07/22 10:47 AM) 6 L/min (05/07/22 10:43 AM) Mode of Delivery (Oxygen) Room air (05/08/22 7:19 AM) Room air (05/08/22 3:17 AM) Room air (05/07/22 9:00 PM) Blood pressure sites Arm, right (05/08/22 7:19 AM) Arm, right (05/08/22 3:17 AM) Arm, left (05/07/22 9:00 PM) Temperature Route Oral (05/08/22 7:19 AM) Oral (05/08/22 3:17 AM) Oral (05/07/22 9:00 PM) Social History Social History Type Response [...] Code MRI Safety Implantable Status 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 [id number] Unknown [id number] Unknown 03/11/21 Unknown Unknown Active GS1 Admission evaluation note * Paco Jones MD: PERFORM, MODIFY Event Display: Admission Note Authored Date: [id number] Patient: ??LAURI TO ? Age:??41 Years?Sex:??Male?:??1980?? Chief Complaint/Reason for Consultation To [facility] 1 hour [place]ANNER r/t open wounds on arrival. Pt believes he may have broken leg - Psych hx. Aggressive with EMS. Hyperverbal on arrival. History of Present Illness 41-year-old male patient with history of bipolar disorder, asthma, GERD, hypothyroidism who presented to [facility] initially with multiple complaints.?? Patient has been to multiple hospitals in previous 24 hours prior to arrival to the ER.?? He was extremely anxious and uncooperativewith EMS and there were concern for safety.?? Patient was noted to have pressured speech was requesting help for acid reflux and pain.?? Patient exhibited paranoid behavior.?? Patient was seen by psychiatry for crisis evaluation.?? Patient received multiple doses of antipsychotics and benzodiazepines.?? Psychiatric medications were changed.?? Due to left lower extremity cellulitis, was requested to be admitted to hospital service.?? Denies any SI HI or hallucinations.?? Alert and oriented x4.??During my interview, patient stated that, I do not know why Jose Jacobsen is here .?? He initially reported that he wanted to leave AGAINST MEDICAL ADVICE but later chose to stay.?? Patient reports bilateral lower extremity pain and increase in swelling. ?? On review of labs, noted a white count of 8.6, hemoglobin 9.4, platelets 310, INR 1.1, sodium 137, creatinine 0.9, LFTs unremarkable, lactate 1.2, troponins 29 and 26, TSH 10.8, free T40.95, valproic acid level 6.6, urine drug screen positive for benzodiazepine and opiates, urinalysis unremarkable.?? Noted to have bilateral knee effusion???left more than right on x-ray of bilateral knee.?? Also underwent x-ray of tibia/fibula bilaterally which did not show any fracture or dislocation.?? Review of Systems General ROS:??negative for chills or fever, noted fatigue, no night sweats, no unexpained weight loss or weight gain Psychological ROS:??Positive for anxiety, intermittent agitation, paranoid behavior but denies SI or HI ENT ROS:??negative for nasal congestion, no sinus drainage, no nosebleeding, no sore throat, no dysphagia, no ear pain Hematological and Lymphatic ROS:??negative for bleeding problems, no history of blood clots, no recent increase in bruising, no noted swollen lymph nodes Endocrine ROS:??negative for polyuria/polydipsia?? Respiratory ROS:??negative for cough, no shortness of breath, no wheezing Cardiovascular ROS:??no chest pain, ??No dyspnea on exertion, ??No edema, no palpitations, no history of loss of consciousness, no orthopnea, no paroxysmal nocturnal dyspnea?? Gastrointestinal ROS:??Positive for reflux, no abdominal pain, no black or bloody stools- also no history of constipation, diarrhea, heartburn or hematemesis Genito-Urinary ROS:??no dysuria, no trouble voiding, or hematuria Musculoskeletal ROS:??negative for worsening ongoing back pain, no worsening or chronic neck pain, positive for bilateral lower extremity swelling??and??and pain. ??Left lower extremity superficial open wounds Neurological ROS:??no symptoms of confusion, no dizziness, no gait disturbance, no impaired coordination/balance, no memory loss, no history of seizures, no history of speech problems, no tremors , no visual changes. ?? Objective ? Vital Signs?? Temperature: 98.8 DegF (05/03/22 19:56:00) Temperature Route: Oral (05/03/22 19:56:00) Pulse Rate:??107 bpm??High (05/03/22 19:56:00) Respiratory Rate: 20 br/min (05/04/22 00:20:00) Systolic Blood Pressure: 133 mm Hg (05/03/22 19:56:00) Diastolic Blood Pressure: 82 mm Hg (05/03/22 19:56:00) Blood pressure sites: Arm, right (05/03/22 19:56:00) Mean Arterial Pressure: 99 mm Hg (05/03/22 19:56:00) Pulse Pressure: 51 mm Hg (05/03/22 19:56:00) Oxygen Saturation: 97 % (05/03/22 19:56:00) Mode of Delivery (Oxygen): Room air (05/03/22 19:56:00) Early Warning Score: 1 (05/04/22 00:20:39) ? Pain Scores?? No qualifying data available. ? Intake/Output? No Data Available ? Ashli Coma Scale Ashli Coma Score: 15 (05/03/22 02:02:00) Motor Response-Adult: Obeys commands (05/03/22 02:02:00) Response Eye Opening: Spontaneously (05/03/22 02:02:00) Verbal Response-Adult: Oriented and converses (05/03/22 02:02:00) ? Basic ADLs Ambulatory devices needed: None (05/03/22) ? Physical Exam ?? General appearance- alert, cooperative, no distress, appears stated age, oriented to time, place and person,??paranoid,??anxious and restless Head- Normocephalic, without obvious abnormality, atraumatic Eyes-conjunctivae/corneas clear. PERRL, EOM's intact. Nose- Nares normal. Septum midline. Mucosa normal. No drainage or sinus tenderness. Throat-Lips, mucosa, and tongue normal. Neck- supple, symmetrical, trachea midline, no adenopathy, thyroid: not enlarged, symmetric, no tenderness/mass/nodules, no carotid bruit and no JVD Back- symmetric, no curvature.?? No CVA tenderness Lungs-??clear to auscultation bilaterally Chest wall- no tenderness, no skin rash or lesions or bruising, no crepitance Heart- regular rate and rhythm, S1, S2 normal, no click, rub or gallop Abdomen-??soft, non-tender. Bowel sounds normal. No masses,?? No organomegaly Extremities-bilateral lower extremity swelling, compartment soft,??superficial open wounds???significantly more prominent in left lower extremity. ??Erythema and warmth noted Pulses- 2+ and symmetric on dorsal pedal pulses, posterior tibial pulses, radial pulses Skin- Skin color, texture, turgor normal. No rashes or lesions Neurologic- Normal, nonfocal, no focal weakness ? Assessment/Plan ?? Bilateral lower extremity swelling? left>right Blood cultures obtained in the ER, lactate normal Start??vancomycin Monitor clinically Wound care consultation ?? Bipolar 1 disorder, mixed, with psychotic features Antisocial personality disorder, by history Posttraumatic stress disorder Agitation Nonadherence to medication Medication management per psychiatry. ??Plan??detailed in psychiatry note Will need clearance with psychiatry prior to discharge ?? History of peripheral neuropathy Continue Lyrica at home dose ?? History of urinary retention Patient reports being on bethanechol??and not on Flomax ?? Hypothyroidism Continue levothyroxine at home dose Question compliance Checking free T3 ?? DVT prophylaxis???heparin subcu ?? CODE STATUS???full code ?? Diet???regular ?? Paco Jones MD [facility] Medicine Date-May 03, 2022. ??Patient seen at 11 PM ?? IMPORTANT: This document was created by voice recognition software. A conscious effort has been made to improve accuracy of the brand marketing manager. Any obvious errors or omissions should be clarified with the authorof this document. Histories Allergies Allergies ?(Active and Proposed Allergies [...] Mother: Anxiety; Asthma; COPD Father: Alcoholism ? Travel History Travel Outside [facility]: No ?? Medications Home Medications Albuterol (Ventolin HFA 108 mcg/inh inhalation aerosol with adapter)?1?puff(s)?Inhalation?4 times a day?as needed?for wheezing Alprazolam (ALPRAZolam 1 mg oral tablet)?1?tab(s)?1?Milligram?By Mouth?3 times a day?as needed?as needed for anxiety Aripiprazole (ARIPiprazole 30 mg oral tablet)?1?tab(s)?30?Milligram?By Mouth?Daily?for 14?Days Benztropine (benztropine 1 mg oral tablet)?1?Milligram?1?tablet?By Mouth?Daily?for 14?Days BusPIRone (busPIRone 15 mg oral tablet)?1?tab(s)?15?Milligram?By Mouth?3 times a day?for 10?Days ChlorproMAZINE (chlorproMAZINE 25 mg oral tablet)?1?tab(s)?25?Milligram?By Mouth?2 times a day Clonidine (cloNIDine 0.2 mg oral tablet)?0.2?Milligram?1?tablet?By Mouth?2 times a day?for 10?Days Divalproex Sodium (divalproex sodium 500 mg oral enteric coated tablet)?1?tab(s)?500?Milligram?By Mouth?Daily in AM Divalproex Sodium (divalproex sodium 500 mg oral enteric coated tablet)?2 tablets?By Mouth?Daily at bedtime Docusate (docusate sodium 100 mg oral capsule)?100?Milligram?1?capsule?By [...] 40 mg oral enteric coated capsule)?1?capsule?40?Milligram?By Mouth?Daily Pregabalin (pregabalin 200 mg oral capsule)?1?capsule?200?Milligram?By Mouth?2 times a day Tamsulosin (tamsulosin 0.4 mg oral capsule)?0.4?Milligram?1?capsule?By Mouth?Daily at bedtime ?? MD to RN communication put in to update patient's home medication list in [facility] Results Recent Labs BLOOD COUNT & DIFF WBC 8.6 k/mm3 ()?? 05/03/2022 02:25 RBC 3.84 m/mm3 (Low)?? 05/03/2022 02:25 Hgb 9.4 Gm/dL (Low)?? 05/03/2022 02:25 Hct 31.6 % (Low)?? 05/03/2022 02:25 MCV 82.3 femtoliters ()?? 05/03/2022 02:25 MCH 24.5 pg (Low)?? 05/03/2022 02:25 MCHC 29.7 g/dL (Low)?? 05/03/2022 02:25 Platelet Count 310 k/mm3 ()?? 05/03/2022 02:25 RDW-SD 50.4 femtoliters (High)?? 05/03/2022 02:25 MPV 9.8 femtoliters ()?? 05/03/2022 02:25 Nucleated RBC (Automated) 0.0 #/100 WBC'S ()?? 05/03/2022 02:25 Abs. NRBC 0.0 k/mm3 ()?? 05/03/2022 02:25 Abs. Neut 6.6 k/mm3 ()?? 05/03/2022 02:25 Abs. Lymph 1.3 k/mm3 ()?? 05/03/2022 02:25 Abs. [place] 0.5 k/mm3 ()?? 05/03/2022 02:25 Abs. Eo 0.1 k/mm3 ()?? 05/03/2022 02:25 Abs. Baso 0.0 k/mm3 ()?? 05/03/2022 02:25 Neut % 76.2 % (High)?? 05/03/2022 02:25 Lymph % 15.2 % ()?? 05/03/2022 02:25 [place] % 5.2 % ()?? 05/03/2022 02:25 Eos % 1.5 % ()?? 05/03/2022 02:25 Baso % 0.5 % ()?? 05/03/2022 02:25 Imm Gran 1.4 % ()?? 05/03/2022 02:25 Abs. Imm Gran 0.1 k/mm3 ()?? 05/03/2022 02:25 ?? CARDIAC Nt-Probnp 30 pg/mL ()?? 05/03/2022 02:25 High Sensitivity Troponin (HSTnT) 26 ng/L (High)?? 05/03/2022 04:15 ?? CHEM GENERAL Sodium 137 mmol/L ()?? 05/03/2022 02:25 Potassium 4.0 mmol/L ()?? 05/03/2022 02:25 Chloride 97 mmol/L (Low)?? 05/03/2022 02:25 Bicarbonate Level 28 mmol/L ()?? 05/03/2022 02:25 Anion Gap 12 ()?? 05/03/2022 02:25 Glucose Level 77 mg/dL ()?? 05/03/2022 02:25 BUN 15 mg/dL ()?? 05/03/2022 02:25 Creatinine-Blood 0.9 mg/dL ()?? 05/03/2022 02:25 Estimated GFR Creatinine 112 ML/MIN/1.73 M2 ()?? 05/03/2022 02:25 Calcium 9.3 mg/dL ()?? 05/03/2022 02:25 Protein, Total 7.8 Gm/dL ()?? 05/03/2022 02:25 Albumin 4.6 Gm/dL ()?? 05/03/2022 02:25 AG Ratio 1.4 ()?? 05/03/2022 02:25 Alkaline Phosphatase 126 units/L ()?? 05/03/2022 02:25 AST (SGOT) 31 units/L ()?? 05/03/2022 02:25 ALT (SGPT) 20 units/L ()?? 05/03/2022 02:25 Bilirubin, Total 0.2 mg/dL ()?? 05/03/2022 02:25 Lactate 1.2 mmol/L ()?? 05/03/2022 02:25 ?? COAG INR 1.1 ()?? 05/03/2022 02:25 Protime (PT) 11.2 seconds ()?? 05/03/2022 02:25 ?? ENDOCRINE/TUMOR MARKER TSH 10.80 uIU/mL (High)?? 05/03/2022 02:25 Free T4 0.95 ng/dL ()?? 05/03/2022 02:25 ?? TOXICOLOGY/TDM Ethanol, Serum or Plasma NONE DETECTED mg/dL ()?? 05/03/2022 02:25 Valproic Level 6.6 mg/L (Low)?? 05/03/2022 02:25 Barbiturate Screen, Urine NONE DETECTED ()?? 05/03/2022 05:15 Cannabinoid Screen, Urine NONE DETECTED ()?? 05/03/2022 05:15 Cocaine Metabolite Screen, Urine NONE DETECTED ()?? 05/03/2022 05:15 Methadone Screen, Urine NONE DETECTED ()?? 05/03/2022 05:15 Benzodiazepine Screen, Urine POSITIVE (Abnormal)?? 05/03/2022 05:15 Amphetamine Screen, Urine NONE DETECTED ()?? 05/03/2022 05:15 Opiate Screen, Urine POSITIVE (Abnormal)?? 05/03/2022 05:15 PCP Screen, Urine NONE DETECTED ()?? 05/03/2022 05:15 Fentanyl Screen, Urine Result NONE DETECTED ()?? 05/03/2022 05:15 ?? UA/URINALYSIS Appear/Color, Urine COLORLESS ()?? 05/03/2022 05:15 Specific [place], Urine 1.012 ()?? 05/03/2022 05:15 pH, Urine 8.0 ()?? 05/03/2022 05:15 Albumin, Urine NEGATIVE ()?? 05/03/2022 05:15 Glucose, Urine NEGATIVE ()?? 05/03/2022 05:15 Ketones, Urine NEGATIVE ()?? 05/03/2022 05:15 Bilirubin, Urine NEGATIVE ()?? 05/03/2022 05:15 Hemoglobin, Urine NEGATIVE ()?? 05/03/2022 05:15 Nitrite, Urine NEGATIVE ()?? 05/03/2022 05:15 Leukocyte, Urine NEGATIVE ()?? 05/03/2022 05:15 Urobilinogen NORMAL mg/dL ()?? 05/03/2022 05:15 WBC's, Urine NONE SEEN /HPF ()?? 05/03/2022 05:15 RBC's, Urine NONE SEEN /HPF ()?? 05/03/2022 05:15 Squamous Epith <1 /HPF ()?? 05/03/2022 05:15 Hold Urine Culture Testing available 48 hours from time of collection. ()?? 05/03/2022 05:15 ? Abnormal Labs ?? BLOOD COUNT & DIFF ??Abs. Imm Gran ??0.1 k/mm3 () ??05/03/2022 02:25 ??Abs. NRBC ??0.0 k/mm3 () ??05/03/2022 02:25 ??Hct ??31.6 % (Low) ??05/03/2022 02:25 ??Hgb ??9.4 Gm/dL (Low) ??05/03/2022 02:25 ??Imm Gran ??1.4 % () ??05/03/2022 02:25 ??MCH ??24.5 pg (Low) ??05/03/2022 02:25 ??MCHC ??29.7 g/dL (Low) ??05/03/2022 02:25 ??Neut % ??76.2 % (High) ??05/03/2022 02:25 ??Nucleated RBC (Automated) ??0.0 #/100 WBC'S () ??05/03/2022 02:25 ??RBC ??3.84 m/mm3 (Low) ??05/03/2022 02:25 ??RDW-SD ??50.4 femtoliters (High) ??05/03/2022 02:25 ? CARDIAC ??High Sensitivity Troponin (HSTnT) ??26 ng/L (High) ??05/03/2022 04:15 ? CHEM GENERAL ??AG Ratio ??1.4 () ??05/03/2022 02:25 ??Chloride ??97 mmol/L (Low) ??05/03/2022 02:25 ??Estimated GFR Creatinine ??112 ML/MIN/1.73 M2 () ??05/03/2022 02:25 ? ENDOCRINE/TUMOR MARKER ??TSH ??10.80 uIU/mL (High) ??05/03/2022 02:25 ? TOXICOLOGY/TDM ??Amphetamine Screen, Urine ??NONE DETECTED () ??05/03/2022 05:15 ??Barbiturate Screen, Urine ??NONE DETECTED () ??05/03/2022 05:15 ??Benzodiazepine Screen, Urine ??POSITIVE (Abnormal) ??05/03/2022 05:15 ??Cannabinoid Screen, Urine ??NONE DETECTED () ??05/03/2022 05:15 ??Cocaine Metabolite Screen, Urine ??NONE DETECTED () ??05/03/2022 05:15 ??Ethanol, Serum or Plasma ??NONE DETECTED mg/dL () ??05/03/2022 02:25 ??Fentanyl Screen, Urine Result ??NONE DETECTED () ??05/03/2022 05:15 ??Methadone Screen, Urine ??NONE DETECTED () ??05/03/2022 05:15 ??Opiate Screen, Urine ??POSITIVE (Abnormal) ??05/03/2022 05:15 ??PCP Screen, Urine ??NONE DETECTED () ??05/03/2022 05:15 ??Valproic Level ??6.6 mg/L (Low) ??05/03/2022 02:25 ? UA/URINALYSIS ??Albumin, Urine ??NEGATIVE () ??05/03/2022 05:15 ??Appear/Color, Urine ??COLORLESS () ??05/03/2022 05:15 ??Bilirubin, Urine ??NEGATIVE () ??05/03/2022 05:15 ??Glucose, Urine ??NEGATIVE () ??05/03/2022 05:15 ??Hemoglobin, Urine ??NEGATIVE () ??05/03/2022 05:15 ??Hold Urine Culture ??Testing available 48 hours from time of collection. () ??05/03/2022 05:15 ??Ketones, Urine ??NEGATIVE () ??05/03/2022 05:15 ??Leukocyte, Urine ??NEGATIVE () ??05/03/2022 05:15 ??Nitrite, Urine ??NEGATIVE () ??05/03/2022 05:15 ??Urobilinogen ??NORMAL mg/dL () ??05/03/2022 05:15 ? Note: Critical results are displayed in red. ? Blood Glucose Trend Glucose Level: 77 mg/dL (05/03/22 02:25:00) ? CBC, CBC w/Diff?? CBC?? Differential?? WBC: 8.6 k/mm3 (02:25) Abs. Neut: 6.6 k/mm3 (02:25) RBC:??3.84 m/mm3??Low (02:25) Abs. Lymph: 1.3 k/mm3 (02:25) Hct:??31.6 %??Low (02:25) Abs. [place]: 0.5 k/mm3 (02:25) RDW-SD:??50.4 femtoliters??High (02:25) Abs. Eo: 0.1 k/mm3 (:25) Nucleated RBC (Automated): 0 #/100 WBC'S (:25) Abs. Baso: 0 k/mm3 (:25) Abs. NRBC: 0 k/mm3 (:25) Neut %:??76.2 %??High (02:25) ?? Lymph %: 15.2 % (02:25) ?? [place] %: 5.2 % (02:25) ?? Eos %: 1.5 % (02:25) ?? Baso %: 0.5 % (02:25) ?? Imm Gran: 1.4 % (02:25) ?? Abs. Imm Gran: 0.1 k/mm3 (02:25) ? BMP, Mg, and Phos Anion Gap: 12 (02:25) Bicarbonate Level: 28 mmol/L (02:25) BUN: 15 mg/dL (02:25) Calcium: 9.3 mg/dL (02:25) Chloride:??97 mmol/L??Low (02:25) Creatinine-Blood: 0.9 mg/dL (02:25) Estimated GFR Creatinine: 112 ML/MIN/1.73 M2 (02:25) Glucose Level: 77 mg/dL (02:25) Potassium: 4 mmol/L (02:25) Sodium: 137 mmol/L (02:25) ?? Coagulation Profile INR: 1.1 (02:25) Protime (PT): 11.2 seconds (02:25) ?? LFT Albumin: 4.6 Gm/dL (02:25) Alkaline Phosphatase: 126 units/L (02:25) ALT (SGPT): 20 units/L (02:25) AST (SGOT): 31 units/L (02:25) Bilirubin, Total: 0.2 mg/dL (02:25) Protime (PT): 11.2 seconds (02:25) ?? Urinalysis Albumin, Urine: NEGATIVE (05:15) Appear/Color, Urine: COLORLESS (05:15) Bilirubin, Urine: NEGATIVE (05:15) Glucose, Urine: NEGATIVE (05:15) Hemoglobin, Urine: NEGATIVE (05:15) Hold Urine Culture: Testing available 48 hours from time of collection. (05:15) Ketones, Urine: NEGATIVE (05:15) Leukocyte, Urine: NEGATIVE (05:15) Nitrite, Urine: NEGATIVE (05:15) pH, Urine: 8 (05:15) RBC's, Urine: NONE SEEN (05:15) Specific [place], Urine: 1.012 (05:15) Squamous Epith: <1 (05:15) Urobilinogen: NORMAL (05:15) WBC's, Urine: NONE SEEN (05:15) ? Cardiology Labs Nt-Probnp: 30 pg/mL (05/03/22 02:25:00) High Sensitivity Troponin (HSTnT):??26 ng/L??High (05/03/22 04:15:00) High Sensitivity Troponin (HSTnT):??29 ng/L??High (05/03/22 02:25:00) ?? Blood Gases?? No qualifying data available. ?? Uric/LDH?? No qualifying data available. ?? EKG study * Event Display: ECG 12-Lead Authored Date: Please click on pdf link to open report * Event Display: ECG 12-Lead Authored Date: Ventricular Rate: 116 BPM Atrial Rate: 116 BPM P-R Interval: 156 ms QRS Duration: 80 ms Q-T Interval: 344 ms QTC Calculation(Bazett): 478 ms P Dane: 50 degrees R Dane: -12 degrees T Dane: 43 degrees Sinus tachycardia Minimal voltage criteria for LVH, may be normal variant Cannot rule out Anterior infarct , age undetermined Abnormal ECG When compared with ECG of 01-JAN-2022 14:50, No significant change was found Confirmed by XIOMARA BEDOLLA DO ([id number]) on 05/06/2022 11:17:46 PM [place]: XIOMARA BEDOLLA DO [facility] Progress note * Mita Baptiste RN: MODIFY, SIGN, VERIFY, SIGN, PERFORM Event Display: Progress Note Hospital Authored Date: [id number] Patient: LAURI TO Age: 41 years Sex: Male : 1980 Associated Diagnoses: None Author: Mita Baptiste RN Alert and oriented x3. Complained of BLE pain 10/10 medicated with PRN IV Dilaudid. Patient walkingout of room around nurses station directed patient back to room he came very upset rasing his voice. Patient was compliant with returning to his room. Patient continuous to come out of room without mask and directed back to room and asked to place mask on while near his doorway or outside the room patient complaint at this time. Denny SI, auditory, visual and tactical hallucinations. Requesting PRN IV Ativan medicated per orders. Patient continuous to ask for more pain medication. Patient spokewith MD this AM. New order for Percocet 5/325mg 2 tablets one time order administered to patient. [facility] came by spoke with patient in room. 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 Bed in lowest position, wheels locked. Hourly rounding maintained. Discharge Information Case Management Discharge Plan : Case Management Discharge Plan Data 05/02/2022 22:43 EST Discharge Level of Care at Discharge Home/Custodial/Foster Care 05/02/2022 14:17 EST Discharge Level of Care at Discharge Home/Custodial/Foster Care 05/01/2022 23:14 EST Discharge Level of Care at Discharge Home/Custodial/Foster Care * Mita Baptiste RN: PERFORM Event Display: Progress Note Hospital Authored Date: Discharge order placed. Went over discharge instructions with patient answered all questions. Signed discharge paperwork. Left unit with unarmed security officer to Yanet Mckeon with [employer] charter driver to bring home. * Sandra HENDERSON, Pratibha Villalpando: PERFORM, MODIFY Event Display: Progress Note Hospital Authored Date: Patient: ??LAURI TO ? Age:??41 Years?Sex:??Male?:??1980?? Subjective Patient has been medically cleared. He has been constantly demanding pain medication and IV benzodiazepines and becomes angry and raises his voice with limits are set but has not been physically aggressive and has been??redirectable. Per RN, patient has??not said anything today that seems psychoticor paranoid. ?? On interview, pnt says he his having a guitar and amp??delivered to his home and his mother texted him that he has to be there to sign for the delivery. Patient says he has been waiting on this for along time and want to go home and play guitar. He says he has some of his medications at home but does not??currently??have a PCP or psychiatrist. He has a corrections caseworker he's been??working with to setsomething up with??[facility] (his insurance provider). He knows it is important for him to take??medications. ?? He denies any SI or A/V H. He says he??thinks that a lot of people in the community mistreat him, especially the data processing clerk but denies other paranoid thoughts (being tracked/monitored, targeted, etc). He denies any thoughts of hurting anyone. We talked about how he could benefit from inpatient psych given he has not current providers and he has difficulty with controlling anger??but patient says he hasbeen there before and it doesn't??help him and he just wants to go home.?He denies any sleep disturbance (though per chart is up frequently requesting pain medication). ?? He is aware of the [facility] crisis line and we discussed how to find outpatient psych resources and I told him I would provide details in his discharge paperwork. Review of Systems All systems reviewed and negative except as noted in HPI. Allergies Allergies ?(Active and Proposed Allergies Only) Thorazine? (Severity: Unknown severity, Onset: Unknown) traZODone? (Severity: Unknown severity, Onset: Unknown) ZyPREXA? (Severity: Unknown severity, Onset: Unknown) Zoloft? (Severity: Unknown severity, Onset: Unknown) ? Objective Vital Signs?? Temperature: 97.5 DegF (05/08/22 07:19:00) Temperature Route: Oral (05/08/22 07:19:00) Pulse Rate:??93 bpm??High (05/08/22 07:19:00) Respiratory Rate: 18 br/min (05/08/22 11:10:00) Systolic Blood Pressure: 107 mm Hg (05/08/22 07:19:00) Diastolic Blood Pressure: 66 mm Hg (05/08/22 07:19:00) Blood pressure sites: Arm, right (05/08/22 07:19:00) Mean Arterial Pressure: 80 mm Hg (05/08/22 07:19:00) Pulse Pressure: 41 mm Hg (05/08/22 07:19:00) Oxygen Saturation: 97 % (05/08/22 07:19:00) Mode of Delivery (Oxygen): Room air (05/08/22 07:19:00) Early Warning Score: 6 (05/08/22 11:11:04) ? Physical Exam Mental Status Examination Appearance: disheveled, dirty t-shirt, long hair Attitude toward examiner:??Cooperative Activity:??normal Mood:? I'm frustrated, tired of this, I want to go home Affect:??congruent, irritable, constricted Speech:??increased volume, regular rate Language:??fluent Thought Process:??linear, goal-directed Thought Content:??no delusional content ?Suicidal Ideation:??No SI Perceptions:??No A/V H Cognition: ?Alert ?Oriented to??person, place, time, and situation ?Memory:??intact to recent events ?Concentration:??intact to conversation ?Fund of knowledge: appropriate to age ?Abstract reasoning:??intact Insight:??fair Judgement:??fair ?? Neurological Examination Cranial Nerves: EOMI, face symmetric, no dysarthria?? Motor: no tremors in b/l UEs Gait:??steady ?? _ Inpatient Medications Medications (35) Active SCHEDULED: (20) Aripiprazole 15 mg Tablet (Abilify 15 mg oral tablet) ??30 mg, By Mouth, Daily Benztropine 1 mg Tablet (Cogentin Tablet) ??1 mg, By Mouth, Daily Bethanechol 25 mg Tablet (bethanechol 25 mg oral tablet) ??25 mg, By Mouth, 3 times a day BusPIRone 10 mg Tablet (BuSpar 10 mg oral tablet) ??30 mg, By Mouth, 2 times a day Cephalexin Monohydrate 500 mg Capsule (Cephalexin Capsule) ??500 mg, By Mouth, Every 6 hours ChlorproMAZINE 25 mg Tablet (chlorproMAZINE 25 mg oral tablet) ??25 mg, By Mouth, Every 24 hours ChlorproMAZINE 50 mg Tablet (Thorazine Tablet) ??50 mg, By Mouth, Daily before lunch ChlorproMAZINE 50 mg Tablet (Thorazine Tablet) ??100 mg, By Mouth, Daily at bedtime Clonidine 0.1 mg Tablet (cloNIDine 0.1 mg oral tablet) ??0.2 mg, By Mouth, 2 times a day Divalproex 500 mg Tablet (Depakote Tablet) ??500 mg, By Mouth, Daily in AM Divalproex 500 mg Tablet (Depakote Tablet) ??1,000 mg, By Mouth, Daily at bedtime Furosemide 80 mg Tablet (furosemide 80 mg oral tablet) ??80 mg, By Mouth, Daily Heparin 5000 units/mL Inj (1 mL) (Heparin Inj) ??5,000 units 1 mL, Subcutaneous Injection, 3 times a day Levothyroxine 25 mcg Tablet (levothyroxine 0.025 mg oral tablet) ??50 mcg, By Mouth, Daily Montelukast 10 mg Tablet (Singulair 10 mg oral tablet) ??10 mg, By Mouth, Daily NaCl 0.9% Flush 3ml (NaCL 0.9% Flush) ??3 mL, IV Push, Every 8 hours OxyCODONE 5 mg/Acetaminophen 325 mg Tablet (Percocet-5/325 325 mg-5 mg oral tablet) ??2 tablet, By Mouth, Every 6 hours Pantoprazole 40 mg EC Tablet (Protonix 40 mg oral delayed release tablet) ??40 mg, By Mouth, Every 24 hours Pregabalin 50 mg Capsule (pregabalin 50 mg oral capsule) ??200 mg, By Mouth, 2 times a day Tizanidine 4 mg Tablet (tiZANidine 4 mg oral tablet) ??4 mg, By Mouth, 3 times a day CONTINUOUS: (0) PRN: (15) Acetaminophen 325 mg Tablet (Tylenol 325 mg oral tablet) ??650 mg, By Mouth, Every 6 hours Al hydroxide/Mg hydroxide/simethicone 200 mg-200 mg-20 mg/5 mL Susp UD (Maalox Plus Liquid) ??15 mL, By Mouth, 4 times a day Albuterol 90mcg/Inhalation Inhaler HFA (Ventolin 90 mcg Inhaler) ??180 mcg 2 puffs, Inhalation, Every 4 hours ChlorproMAZINE 50 mg Tablet (Thorazine Tablet) ??50 mg, By Mouth, Daily in AM Cyclobenzaprine 10 mg Tablet (cyclobenzaprine 10 mg oral tablet) ??10 mg, By Mouth, 3 times a day Dextromethorphan-Guaifenesin 20 mg-200 mg/10 mL Liqu UD (Robitussin DM Liquid) ??10 mL, By Mouth, Every 4 hours diphenhydrAMINE 50 mg/mL Inj (Benadryl Inj) ??50 mg 1 mL, Intramuscular, Once HydrOXYzine Pamoate 25mg Capsule (Vistaril Capsule) ??50 mg, By Mouth, Every 6 hours Lorazepam 2 mg Inj Syringe (Ativan Inj) ??2 mg, IV Push, Every 6 hours Lorazepam 2 mg Tablet (Ativan 2 mg oral tablet) ??2 mg, By Mouth, Every 6 hours Melatonin 3 mg Tablet (Melatonin Tablet) ??3 mg, By Mouth, Daily at bedtime NaCl 0.9% Flush 3ml (NaCL 0.9% Flush) ??3 mL, IV Push, Every 8 hours Polyethylene Glycol 17 Gm Powder (MiraLax Powder) ??17 Gm 1 pack/packet, By Mouth, Daily Senna 8.6 mg / Docusate 50 mg tablet (Docusate/Senna Tablet) ??1 tablet, By Mouth, 2 times a day Simethicone 80 mg Chewable Tablet (Simethicone Tablet) ??80 mg, Chew, 3 times a day ? Results Recent Labs BLOOD BANK Blood Type O Positive ()?? 05/07/2022 10:19 Antibody Screen Negative ()?? 05/07/2022 10:19 RBC Unit ID [id number] ()?? 05/07/2022 11:04 RBC Available PT ()?? 05/07/2022 11:04 ?? BLOOD COUNT & DIFF WBC 3.7 k/mm3 (Low)?? 05/08/2022 08:18 RBC 3.21 m/mm3 (Low)?? 05/08/2022 08:18 Hgb 7.7 Gm/dL (Low)?? 05/08/2022 08:18 Hct 26.2 % (Low)?? 05/08/2022 08:18 MCV 81.6 femtoliters ()?? 05/08/2022 08:18 MCH 24.0 pg (Low)?? 05/08/2022 08:18 MCHC 29.4 g/dL (Low)?? 05/08/2022 08:18 Platelet Count 250 k/mm3 ()?? 05/08/2022 08:18 RDW-SD 47.3 femtoliters (High)?? 05/08/2022 08:18 MPV 9.4 femtoliters ()?? 05/08/2022 08:18 Nucleated RBC (Automated) 0.0 #/100 WBC'S ()?? 05/08/2022 08:18 Abs. NRBC 0.0 k/mm3 ()?? 05/08/2022 08:18 Abs. Neut 2.6 k/mm3 ()?? 05/07/2022 00:14 Abs. Lymph 1.5 k/mm3 ()?? 05/07/2022 00:14 Abs. [place] 0.6 k/mm3 ()?? 05/07/2022 00:14 Abs. Eo 0.2 k/mm3 ()?? 05/07/2022 00:14 Abs. Baso 0.0 k/mm3 ()?? 05/07/2022 00:14 Neut % 52.0 % ()?? 05/07/2022 00:14 Lymph % 30.1 % ()?? 05/07/2022 00:14 [place] % 12.0 % (High)?? 05/07/2022 00:14 Eos % 4.7 % ()?? 05/07/2022 00:14 Baso % 0.6 % ()?? 05/07/2022 00:14 Imm Gran 0.6 % ()?? 05/07/2022 00:14 Abs. Imm Gran 0.0 k/mm3 ()?? 05/07/2022 00:14 ?? CHEM GENERAL Sodium 134 mmol/L ()?? 05/07/2022 00:14 Potassium 4.5 mmol/L ()?? 05/07/2022 00:14 Chloride 97 mmol/L (Low)?? 05/07/2022 00:14 Bicarbonate Level 29 mmol/L ()?? 05/07/2022 00:14 Anion Gap 8 ()?? 05/07/2022 00:14 Glucose Level 141 mg/dL (High)?? 05/07/2022 00:14 Glucose, POC 121 mg/dL (High)?? 05/07/2022 10:25 BUN 13 mg/dL ()?? 05/07/2022 00:14 Creatinine-Blood 0.8 mg/dL ()?? 05/07/2022 00:14 Estimated GFR Creatinine 114 ML/MIN/1.73 M2 ()?? 05/07/2022 00:14 Calcium 9.0 mg/dL ()?? 05/07/2022 00:14 ?? MISC. CHEMISTRY Hold Gel Top SPECIMEN DISCARDED AFTER 1 WEEK ()?? 05/08/2022 08:18 ?? VIROLOGY COVID-19 PCR Specimen Source NASAL ()?? 05/07/2022 05:20 COVID-19 PCR Result NEGATIVE ()?? 05/07/2022 05:20 ? Microbiology ?? Blood Culture #2?? Completed?? Source: Blood Body Site: ?? Collected Dt/Tm: 05/03/2022 02:01 Last Updated Dt/Tm: 05/03/2022 02:04 ?SPECIMEN DESCRIPTION : BLOOD ??L ARMSPECIAL REQUESTS : CRITICAL VALUE CALLED AND VERIFIED BY READBACK FOR: GRAM POSITIVE COCCI ? IN BLOOD TO ED, [id number] ON 05/04/22 AT 0745.CULTURE : STAPHYLOCOCCUS EPIDERMIDIS ??SUSCEPTIBILITY TESTING NOT ROUTINELY ? PERFORMED ON THIS ISOLATE. ?Staphylococcus epidermidis was identified by multi-plex PCR ?Single isolatesof coagulase negative Staphylococcus, Micrococcus sp., ? Bacillus sp., Corynebacterium sp. (or Diptheroids), Cutibacterium ? (formerly Propionibacterium) acnes and Viridans group streptococci ? could be skin contaminates. Multiple isolates of these organisms are ? more likely to be significant.REPORT STATUS : FINAL 05/05/2022 COVID-19 (2019 Novel Coronavirus) PCR?? Completed?? Source: Nasal Body Site: Nose Collected Dt/Tm: 05/03/2022 11:06 Last Updated Dt/Tm: 05/04/2022 02:02 COVID-19 (2019 Novel Coronavirus) PCR?? Completed?? Source: Nasal Body Site: Nose Collected Dt/Tm: 05/04/2022 05:01 Last Updated Dt/Tm: 05/05/2022 02:21 COVID-19 (2019 Novel Coronavirus) PCR?? Completed?? Source: Nasal Body Site: Nose Collected Dt/Tm: 05/07/2022 05:16 Last Updated Dt/Tm: 05/07/2022 19:40 ? Assessment/Plan ??In brief, this is a??41-year-old male with past medical history significant for bipolar disorder,asthma, GERD, hypothyroidism who initially presented to [facility] for multiple complaints and was found to be in a??manic episode with psychotic features??as well as to have cellulitis for which he has been admitted to medicine. VPA level was low on admission suggesting that patient has had limited adherence to meds; he tells me since getting out of [facility] he has not had an active psychiatric prescriber. He has received multiple PRNs of haloperidol with limited benefit and he is requesting to be back on Thorazine. This is listed as an allergy but he says he takes it and it was rece ntly prescribed. He would benefit from being back on this and we can try this is a PRN as well instead of haloperidol.??He asks for many other medication changes too, some of which do not reflect hiscurrent regimen based on external Rx but we will make some changes to better accommodate him and tohelp him feel more calm. He may not leave without psychiatric clearance and may need inpatient hospi talization once medically cleared if psychiatric symptoms continue. ?? 05/08: patient now medically cleared. He has been adherent to psych meds and overall improved. He isnot delusional and he is organized in conversation. His speech is not pressured. He is constantly demanding pain meds and becomes angry when limits are set which is more consistent with antisocial PDthan with bipolar mi. He would benefit from inpatient psych to help with aftercare and with behavioral regulation but he refuses and does not meet section 12 criteria at this time (no SI, no HI, able to meet his medical needs, taking psychotropics, states he has a CM and is working on a plan to establsh care with new providers though [facility] At this time there is no psychiatric contrainidcation to discharge. ?? Diagnoses Bipolar 1 disorder, in remission Antisocial personality disorder Posttraumatic stress disorder ?? Recommendations: -Please discharge patient with a 15-day supply of the following psychiatric medications: depakote 500 qAM, 1,000 qHS; Abilify 30 mg PO daily; Cogentin 1 mg PO daily; Buspar 30??mg PO??twice daily, and thorazine??50 mg qAM,??50 mg q2 PM, 100 mg qHS -patient is psychiatrically cleared for discharge -he was provided with information regarding outpatient mental health resources as well as the [facility] [place] crisis line (see discharge instructions) -patient encouraged to obtain close outpatient follow-up ?? Recommendations sent via Cortext to Dr. Thornton. ?? Pratibha Flores MD Attending, Psychiatry Consultation Service [facility] ?? 35 min spent reviewing the chart, examining the patient, counseling the patient on??bipolar disorder management??and coordinating care with primary team. * Heriberto VALENTINE, Cher Oneill: PERFORM, MODIFY, SIGN, VERIFY, MODIFY Event Display: Progress Note Hospital Authored Date: [id number] Patient: LAURI TO Age: 41 years Sex: Male : 1980 Associated Diagnoses: None Author: Heriberto VALENTINE, Cher Oneill Findings Problem Related to Alteration in Integumentary : Alteration in Integumentary/new 05/07/2022 19:00 EST Alteration in Integumentary Related to Cellulitis Goals & Outcomes, Integumentary Pt will maintain intact skin integrity, Wound will progress towards healing Interventions, Integumentary Cleanse all wounds with Normal Saline, Collaborate w/ provider for PT/OT consults, Consult Wound Care as needed for further interventions, Encourage & assist pt to change position frequently, Encourage & assist with range of motion exercises, Encourage family participation in pt's care as they are able, Ensure relief modes are on mattress surface & utilized, Increase turning frequency if red or blanched areas appear, Interdisciplinary consults as appropriate, Keep bed as flat as tolerated to reduce shearing, Keep linen clean, dry and wrinkle free, Keepskin clean & dry, Maintain sterile technique with dressing changes, Minimize friction, shear and moisture, Monitor reddened areas for continued or increasing reddness, Record extent of impaired skin integrity, Relieve pressure off bony areas, Reposition pt off reddened areas, Teach Pt/caregivers/s of infection, Teach Pt/S.O. risks of & measures to prevent skin breakdown, Use barrier cream/ointment if pt's skin is frequently moist, Use heel & elbow protectors to relieve friction, Use pH balanced no rinse cleanser if incontinent, Use pressure dispersing devices as appropriate BH Goals/Interventions, Integumentary Yes Integumentary, Problem Start 05/05/2022 23:14 Reviewed plan with, Integumentary Patient Patient Progression, Integumentary Pt progressing according to plan . Alteration in Psychosocial : Alteration in Psychosocial Function/new 05/07/2022 19:00 EST Alteration in Psychosocial Related to Other: bipolar disorder Goals & Outcomes, Psychosocial Pt will demonstrate ability for self care, Pt will engage in reality testing, Pt will show ability to safely interact with others, Pt will work w/psychiatrist re: medication plan Interventions, Psychosocial Assess psychosocial needs, Assess readiness to learn needed lifestyle changes, Assess/monitor level of consciousness, Collaborate with provider for psychiatric consult, Evaluate resources & support system available to pt, Offer support; discuss coping strategies, Provide a calm, supportive environment, Provide chances to express concerns/emotions/expectations, Provide info on community resources for education, support, Provide information about illness and recovery, Provide verbal limits if pt's behavior escalates BH Goals/Interventions, Psychosocial Yes Psychosocial, Problem Start 05/05/2022 23:15 Reviewed Plan with, Psychosocial Patient Patient Progression, Psychosocial Pt progressing according to plan . Evaluation Recieved patient asleep on bed, No signs of distress or discomfort. with security outside of room. 2045H patient awake complaining of 10/10 pain, due and PRN medication given per MAR, well tolerated.Dressing changed for left lower leg. Needs attended. 2230H still complaining of 10/10 pain, ptaientstate he is taking fioricet tablet and tylenol #3 or 4 for pain, informed covering provider. 2300H covering provider called infomed regarding the pain medications, ordered fioricet once, given well tolerated. Needs attended. Keep bed low and locked. call clark within reach. 0300H complaining of pain10/10, due pain medication given, still complaining and requesting for ketarolac, informed covering provider. VS taken and recorded, 1x time dose of ketarolac given, well tolerated, will monitor. 0551H awake, not comlaianing of any pain, dressing removed by the patient. Frequent rounding maintained. Will conitnue to monitor. . Discharge Information Case Management Discharge Plan : Case Management Discharge Plan Data 05/02/2022 22:43 EST Discharge Level of Care at Discharge Home/Custodial/Foster Care 05/02/2022 14:17 EST Discharge Level of Care at Discharge Home/Custodial/Foster Care 05/01/2022 23:14 EST Discharge Level of Care at Discharge Home/Custodial/Foster Care Note * Mita Baptiste RN: PERFORM Event Display: Discharge/Transfer Note Hospital Authored Date: [id number] Nursing Discharge Note Entered On: 05/08/2022 13:33 EST Performed On: 05/08/2022 13:32 EST by Mita Baptiste RN Nursing Discharge Note 2 Discharge Time : 05/08/2022 13:32 EST Discharge Level of Care at Discharge : Home/Custodial/Foster Care Patient Left Unit Via : Ambulatory Patient Accompanied Off 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 Age:??41 Years?Sex:??Male?:??1980?? Patient Information Discharge Location: Primary Care Physician: Soto RAMIREZ MD, Bal Serrano Admit Date/Time: 05/03/22 10:40 Discharge Disposition Discharge Disposition: Home: No Services Discharge Diagnosis Cellulitis (L03.90) Bipolar disorder with depression Chronic pain syndrome [...] mg oral capsule)?1?capsule?500?Milligram?By Mouth?Every 6 hours?for 5?Days ChlorproMAZINE (chlorproMAZINE 50 mg oral tablet)?50?Milligram?By Mouth?Daily before lunch?for 14?Days ChlorproMAZINE (chlorproMAZINE 100 mg oral tablet)?100?Milligram?By Mouth?Daily at bedtime?for 14?Days ChlorproMAZINE (chlorproMAZINE 50 mg oral tablet)?1?tab(s)?50?Milligram?By Mouth?Daily in AM Clonidine (cloNIDine 0.2 mg oral tablet)?0.2?Milligram?1?tablet?By Mouth?2 times a day?for 10?Days Codeine?By Mouth?Every 4 hours Divalproex Sodium (divalproex sodium 500 mg oral [...] 40 mg oral enteric coated capsule)?1?capsule?40?Milligram?By Mouth?Daily Pregabalin (pregabalin 200 mg oral capsule)?1?capsule?200?Milligram?By Mouth?2 times a day Tamsulosin (tamsulosin 0.4 mg oral capsule)?0.4?Milligram?1?capsule?By Mouth?Daily at bedtime ? Allergies Allergies ?(Active and Proposed Allergies Only) Thorazine? (Severity: Unknown severity, Onset: Unknown) traZODone? (Severity: Unknown severity, Onset: Unknown) ZyPREXA? (Severity: Unknown severity, Onset: Unknown) Zoloft? (Severity: Unknown severity, Onset: Unknown) ? Hospital Course ??41-year-old male patient with history of bipolar disorder, asthma, GERD, hypothyroidism who presented to [facility] initially with multiple complaints.?? Patient has been to multiple hospitals in previous 24 hours prior to arrival to the ER.?? He was extremely anxious and uncooperative with EMS and there were concern for safety.?? Patient was noted to have pressured speech was requesting help for acid reflux and pain.?? Patient exhibited paranoid behavior.?? Patient was seen by psychiatry for crisis evaluation.?? Patient received multiple doses of antipsychotics and benzodiazepines.?? Psychiatric medications were changed.?? Due to left lower extremity cellulitis, was requested to be admitted to hospital service.?? Denies any SI HI or hallucinations.?? Alert and oriented x4.?? During my interview, patient stated that, I do not know why Jose Jacobsen is here .?? He initially reported that he wanted to leave AGAINST MEDICAL ADVICE but later chose to stay.?? Patient reports bilateral lower extremity pain and increase in swelling. ?? # bleeding from the vericose vein rupture after patient picked on it B/L vericose vein with leg swelling Tortous vein visible this morning patient picked on his vein and started bleeding ( estimated ~300ml) pressure was applied stat, called vascular , vascular stitch the ruptured vein , wrapped both legs , hemostasis obtained Vitals are stable after 2L NS CBC repeated , H&H 7.2 likely hemoconcentration , Type and screen 0.1 Narcan given as patient is on Dilaudid 1 unit PRBC to transfuse Mother Ciro called for the consent, She blames for medication psychiatry prescribed for him for hiscondition. She agreed for transfusion witnessed by land surveying manager of the floor Will follow him cosely. Hemoglobin??7.7 on discharge ? Bilateral lower extremity swelling? left>right gram positive cocci??bacteremia- staph epidermidis 1/2, ? contaminant one set shows contaminant,second set neg,??another 2 sets??of??blood cx sent S/P ??vanco ( 24 hr culture negatrive for MRSA 05/06) Started on Cephalexin 500mg Q6 hrs 05/06( discussed with antibiotics stewardship fellow) Monitor clinically,??follow-up with vital signs Wound care consultation ?? 05/04- staph epidermidis bacteremia- ? contaminant, Repeat blood culture negative??besides Patient??never got antibiotics for now 7 days We will send??antibiotics??for 5 more days ?? Bipolar 1 disorder, mixed, with psychotic features Antisocial personality disorder, by history Posttraumatic stress disorder Agitation Nonadherence to medication ?? Medication management per psychiatry recs above.. Due to uncontrolled/inadequate symptom control, have??coordinated with psychiatry, for??either scheduling meds or alternative??regimen Discussed with psychiatrist this morning.?? Dr. Herrera??cleared him to??go home.?? She requested??to send him with??14 days prescription which I have sent to his pharmacy of choice [facility]. ?? History of peripheral neuropathy ?? Continue Lyrica at home dose ?? History of urinary retention Patient reports being on bethanechol??and not on Flomax ?? Hypothyroidism Continue levothyroxine at home dose Question compliance Checking free T3 ?? On the day of discharge today patient was agitated??since morning.?? He is getting??IV Ativan and as needed Ativan??in the hospital for last few days.?? He is demanding me to give??oxycodone??10 mg??scheduled every 4 hours. Later??discussed with??psychiatrist.?? Cleared him to go home.?? Psychiatrist??sent him with behavioral resources in the community.?? Patient's corrections caseworker??will help??to get??PCP. I have discussed with psychiatrist since he got IV??Ativan last few days,??will send for??pills for??alprazolam??so that he does not have??withdrawal symptoms.?? Patient was constantly on the hallway??walking??and coming to the nurses station.?? Unable to examine him on the day of discharge.?? He legs still??swollen to me however no bleeding seen. Objective Assessment and Plan ? Measurements?? Height: 176 cm (05/08/22) ?? Vital Signs?? Temperature: 97.5 DegF (05/08/22 07:19:00) Temperature Route: Oral (05/08/22 07:19:00) Pulse Rate:??93 bpm??High (05/08/22 07:19:00) Respiratory Rate: 18 br/min (05/08/22 12:10:00) Systolic Blood Pressure: 107 mm Hg (05/08/22 07:19:00) Diastolic Blood Pressure: 66 mm Hg (05/08/22 07:19:00) Blood pressure sites: Arm, right (05/08/22 07:19:00) Mean Arterial Pressure: 80 mm Hg (05/08/22 07:19:00) Pulse Pressure: 41 mm Hg (05/08/22 07:19:00) Oxygen Saturation: 97 % (05/08/22 07:19:00) Mode of Delivery (Oxygen): Room air (05/08/22 07:19:00) Early Warning Score: 6 (05/08/22 12:58:21) ? . Physical Exam Pending Results Add On Lab Order ordered on 05/03/2022 Add On Lab Order ordered on 05/03/2022 Add On Lab Order ordered on 05/03/2022 Amphetamine Urine Screen ordered on 05/03/2022 Barbiturate Urine Screen ordered on 05/03/2022 Benzodiazepine Urine Screen ordered on 05/03/2022 Blood Culture ordered on 05/03/2022 Blood Culture ordered on 05/04/2022 Blood Culture #2 ordered on 05/04/2022 CBC ordered on 05/07/2022 CBC ordered on 05/08/2022 Cannabinoid Urine Screen ordered on 05/03/2022 Cocaine Urine Screen ordered on 05/03/2022 Opiate Screen Urine ordered on 05/03/2022 Transfuse RBCs ordered on 05/07/2022 Urinalysis w/hold for Urine Culture ordered on 05/03/2022 Follow-Up Appointments Added Follow Up ?Time Frame ?Comments Soto RAMIREZ MD, Bal Serrano Post Discharge Care Discharge ?05/08/22 13:00:00 EST f/u with vascular outpatient f/u with psychiatrist and PCP Results Discharge Labs BLOOD BANK Blood Type O Positive ()?? 05/07/2022 10:19 Antibody Screen Negative ()?? 05/07/2022 10:19 RBC Unit ID [id number] ()?? 05/07/2022 11:04 RBC Available PT ()?? 05/07/2022 11:04 ?? BLOOD COUNT & DIFF WBC 3.7 k/mm3 (Low)?? 05/08/2022 08:18 RBC 3.21 m/mm3 (Low)?? 05/08/2022 08:18 Hgb 7.7 Gm/dL (Low)?? 05/08/2022 08:18 Hct 26.2 % (Low)?? 05/08/2022 08:18 MCV 81.6 femtoliters ()?? 05/08/2022 08:18 MCH 24.0 pg (Low)?? 05/08/2022 08:18 MCHC 29.4 g/dL (Low)?? 05/08/2022 08:18 Platelet Count 250 k/mm3 ()?? 05/08/2022 08:18 RDW-SD 47.3 femtoliters (High)?? 05/08/2022 08:18 MPV 9.4 femtoliters ()?? 05/08/2022 08:18 Nucleated RBC (Automated) 0.0 #/100 WBC'S ()?? 05/08/2022 08:18 Abs. NRBC 0.0 k/mm3 ()?? 05/08/2022 08:18 Abs. Neut 2.6 k/mm3 ()?? 05/07/2022 00:14 Abs. Lymph 1.5 k/mm3 ()?? 05/07/2022 00:14 Abs. [place] 0.6 k/mm3 ()?? 05/07/2022 00:14 Abs. Eo 0.2 k/mm3 ()?? 05/07/2022 00:14 Abs. Baso 0.0 k/mm3 ()?? 05/07/2022 00:14 Neut % 52.0 % ()?? 05/07/2022 00:14 Lymph % 30.1 % ()?? 05/07/2022 00:14 [place] % 12.0 % (High)?? 05/07/2022 00:14 Eos % 4.7 % ()?? 05/07/2022 00:14 Baso % 0.6 % ()?? 05/07/2022 00:14 Imm Gran 0.6 % ()?? 05/07/2022 00:14 Abs. Imm Gran 0.0 k/mm3 ()?? 05/07/2022 00:14 ?? CARDIAC Nt-Probnp 30 pg/mL ()?? 05/03/2022 02:25 High Sensitivity Troponin (HSTnT) 26 ng/L (High)?? 05/03/2022 04:15 ?? CHEM GENERAL Sodium 134 mmol/L ()?? 05/07/2022 00:14 Potassium 4.5 mmol/L ()?? 05/07/2022 00:14 Chloride 97 mmol/L (Low)?? 05/07/2022 00:14 Bicarbonate Level 29 mmol/L ()?? 05/07/2022 00:14 Anion Gap 8 ()?? 05/07/2022 00:14 Glucose Level 141 mg/dL (High)?? 05/07/2022 00:14 Glucose, POC 121 mg/dL (High)?? 05/07/2022 10:25 BUN 13 mg/dL ()?? 05/07/2022 00:14 Creatinine-Blood 0.8 mg/dL ()?? 05/07/2022 00:14 Estimated GFR Creatinine 114 ML/MIN/1.73 M2 ()?? 05/07/2022 00:14 Calcium 9.0 mg/dL ()?? 05/07/2022 00:14 Phosphorus 3.6 mg/dL ()?? 05/04/2022 01:51 Magnesium 2.3 mg/dL ()?? 05/04/2022 01:51 Protein, Total 7.9 Gm/dL ()?? 05/04/2022 01:51 Albumin 4.5 Gm/dL ()?? 05/04/2022 01:51 AG Ratio 1.3 ()?? 05/04/2022 01:51 Alkaline Phosphatase 126 units/L ()?? 05/04/2022 01:51 AST (SGOT) 30 units/L ()?? 05/04/2022 01:51 ALT (SGPT) 17 units/L ()?? 05/04/2022 01:51 Bilirubin, Total 0.2 mg/dL ()?? 05/04/2022 01:51 Lactate 1.2 mmol/L ()?? 05/03/2022 02:25 C-Reactive Protein 7.0 mg/dL (High)?? 05/04/2022 01:51 ?? COAG INR 1.1 ()?? 05/03/2022 02:25 Protime (PT) 11.2 seconds ()?? 05/03/2022 02:25 ?? ENDOCRINE/TUMOR MARKER TSH 10.80 uIU/mL (High)?? 05/03/2022 02:25 Free T4 0.95 ng/dL ()?? 05/03/2022 02:25 T3, Free 3.0 pg/mL ()?? 05/04/2022 01:51 ? HEME OTHER Hold Lavender Top SPECIMEN DISCARDED AFTER 24 HOURS. ()?? 05/05/2022 12:17 ? MISC. CHEMISTRY Hold Green Top SPECIMEN DISCARDED AFTER 1 WEEK ()?? 05/05/2022 12:17 Hold Gel Top SPECIMEN DISCARDED AFTER 1 WEEK ()?? 05/08/2022 08:18 ?? TOXICOLOGY/TDM Ethanol, Serum or Plasma NONE DETECTED mg/dL ()?? 05/03/2022 02:25 Valproic Level 6.6 mg/L (Low)?? 05/03/2022 02:25 Vancomycin Level, Trough 11.4 mg/L ()?? 05/05/2022 12:17 Barbiturate Screen, Urine NONE DETECTED ()?? 05/03/2022 05:15 Cannabinoid Screen, Urine NONE DETECTED ()?? 05/03/2022 05:15 Cocaine Metabolite Screen, Urine NONE DETECTED ()?? 05/03/2022 05:15 Methadone Screen, Urine NONE DETECTED ()?? 05/03/2022 05:15 Benzodiazepine Screen, Urine POSITIVE (Abnormal)?? 05/03/2022 05:15 Amphetamine Screen, Urine NONE DETECTED ()?? 05/03/2022 05:15 Opiate Screen, Urine POSITIVE (Abnormal)?? 05/03/2022 05:15 PCP Screen, Urine NONE DETECTED ()?? 05/03/2022 05:15 Fentanyl Screen, Urine Result NONE DETECTED ()?? 05/03/2022 05:15 ?? UA/URINALYSIS Appear/Color, Urine COLORLESS ()?? 05/03/2022 05:15 Specific [place], Urine 1.012 ()?? 05/03/2022 05:15 pH, Urine 8.0 ()?? 05/03/2022 05:15 Albumin, Urine NEGATIVE ()?? 05/03/2022 05:15 Glucose, Urine NEGATIVE ()?? 05/03/2022 05:15 Ketones, Urine NEGATIVE ()?? 05/03/2022 05:15 Bilirubin, Urine NEGATIVE ()?? 05/03/2022 05:15 Hemoglobin, Urine NEGATIVE ()?? 05/03/2022 05:15 Nitrite, Urine NEGATIVE ()?? 05/03/2022 05:15 Leukocyte, Urine NEGATIVE ()?? 05/03/2022 05:15 Urobilinogen NORMAL mg/dL ()?? 05/03/2022 05:15 WBC's, Urine NONE SEEN /HPF ()?? 05/03/2022 05:15 RBC's, Urine NONE SEEN /HPF ()?? 05/03/2022 05:15 Squamous Epith <1 /HPF ()?? 05/03/2022 05:15 Hold Urine Culture Testing available 48 hours from time of collection. ()?? 05/03/2022 05:15 ? VIROLOGY COVID-19 PCR Specimen Source NASAL ()?? 05/07/2022 05:20 COVID-19 PCR Result NEGATIVE ()?? 05/07/2022 05:20 ? _40 minutes spent on discharge * Mita Baptiste RN: PERFORM Event Display: Patient Education/Instruction Authored Date: [id number] Inpatient Adult Discharge Instructions [address] [address] Name: LAURI TO : 1980 Visit: 05/03/2022 10:40:00 Current Date: 05/08/2022 13:01 Account: [id number] Inpatient Adult Discharge Instructions We would like [...] and their families. Surveys are administered by [employer] ?? If further treatment with your primary care physician or another doctor is recommended, it is important for you to keep the appointment. Call your primary care physician or return to the Emergency Department immediately if your condition worsens, fails to improve, or new symptoms develop. If you need to find a doctor, you can call [facility] [employer] [facility] for a referral at [phone] or toll free at [phone] or log in to [email or web address].. ?? You can view and manage your care through the patient portal or by using a health care alden of your choosing. [employer] is a website that allows you to securely view your medical information including your hospital discharge summary, office visit summaries, medications and follow-up visits. You can also request appointments, renew medications, and request access to your medical information using a health care alden of your choosing, or just ask a question. You can enroll at [email or web address] or register during your next office visit. You have been discharged from [facility], Patient Care Unit: S1. If you have any questions regarding these instructions after you leave, please call us and we will be happy to assist you. [facility] Your Care Team Attending Physician Urmy MD, Lary Consulting Providers Lary Thornton MD; Leigha Alfaro MD Discharging Providers Lary Thornton MD Reason for Admission To [facility] 1 hour [place] [place] r/t open wounds on arrival. Pt believes he may have broken leg - Psych hx. Aggressive with EMS. Hyperverbal on arrival. Your Diagnosis Cellulitis Tests Performed Below is a partial list of the tests performed during your hospitalization. You may have had other tests and procedures not included in this list. Please discuss all test results with your provider. Alcohol Level AMPHETAMINE SCREEN, URINE BARBITURATES SCREEN, URINE Basic Metabolic Panel BENZODIAZEPINE SCREEN, URINE CANNABINOID SCREEN, URINE CBC CBC w/ Differential COCAINE SCREEN, URINE Comprehensive Metabolic Panel COVID-19 (2019 Novel Coronavirus) PCR CRP FENTANYL SCREEN, URINE Free T3 FREE T4 GLUCOSE POC High??Sensitivity??Troponin T HOLD GEL TUBE HOLD GREEN TUBE HOLD LAVENDER TUBE INR Lactate Level Magnesium Level METHADONE SCREEN, URINE OPIATES SCREEN, URINE PHENCYCLIDINE SCREEN, URINE Phosphorus Level ProBNP Troponin T, High Sensitivity TSH with T4 Reflex (Adults Only) Type and Screen UA W/HOLD FOR CULTURE FOR [facility] ER ONLY VALPROIC Vancomycin Trough US Doppler Ext Lower Venous Bilat Primary Care Provider Soto RAMIREZ MD, Bal Serrano Advance Directive Health Care Proxy on File Yes - Health Care Proxy Discharge Vitals Temperature: 97.5 DegF Height: 176 cm Pulse Rate:??93 bpm??High ?? Respiratory Rate: 18 br/min ?? Systolic Blood Pressure: 107 mm Hg ?? Diastolic Blood Pressure: 66 mm Hg ?? Oxygen Saturation: 97 % ?? Studies Pending All tests and labs ordered during this hospital stay have been completed unless listed below. Please discuss all pending results with your provider listed above in these instructions. ?? Add On Lab Order Amphetamine Urine Screen Barbiturate Urine Screen Benzodiazepine Urine Screen Blood Culture Blood Culture #2 CBC Cannabinoid Urine Screen Cocaine Urine Screen Opiate Screen Urine Transfuse RBCs Urinalysis w/hold for Urine Culture What to do next Instructions From Your Doctor You were evaluated by the [facility] Psychiatric Consultation Service.?? We recommend that you obtain outpatient mental health follow-up. Please contact one of the following [facility] clinics for an appointment: [facility]: ? [facility]: [phone] [facility]: [phone] If you are experiencing a mental health crisis, you can call the [facility] Crisis Hotline at [phone]. You can also call 911 or come to the nearest emergency room if you are experiencing suicidal thoughts, hallucinations, or paranoia.? ASSISTANCE WITH MEDICATIONS: ?? It may be useful to present yourself to the Transitional Assistance office to request?EmergencyAssistance for Medications?? . ?? Transitional Assistance Office [address] [place] [address]?? #[phone] Wednesday-Wednesday 7:30AM-5PM ?? [facility] WALK-IN INTAKE: Soonest Therapy/Intake Appointment: You must call to set up an appointment with the intake line at [phone]. Medication Management: Medication management is contingent upon completing the intake above. Once completed, you are eligible for a medication prescriber within 30 days. [facility] provides walk-in clinic hours only from Tuesdays, Wednesdays, and at 12:30PM or 1:30PM located at [address] [place] [address], [address] 2nd floor, [facility]. You will be able to be connected with appointments for therapy and medication management and can be referred for [facility], Day Treatment, and IOP services. It is recommended you call immediately after discharge and make the soonest available appointment and bring these instructions to your appointment to ensure timely follow up. ?? Discharge Orders You Need to Schedule the Following Appointments Follow Up with??Soto RAMIREZ MD, Bal Serrano When?? Where: [address] [place] [id number]- Discharge Medications LAURI TO :1980 Visit Date:05/03/2022 Medications: Please continue your medications until treatment is completed or stopped by your provider. Medications not listed below should be discontinued. Discuss any questions related to medications with your provider. What How Much When Instructions Next Dose New Cephalexin (cephalexin monohydrate 500 mg oral capsule) 1 capsule Oral Every 6 hours Duration: 5 Days Pickup at [facility] #[id number] 05/08 6PM Changed Alprazolam (ALPRAZolam 1 mg oral tablet) 1 tab(s) Oral 3 times a day as needed for as needed for anxiety Duration: 5 Days Pickup at [facility] #[id number] As directed Changed BusPIRone (busPIRone 30 mg oral tablet) 1 tab(s) Oral Twice a day Duration: 14 Days Pickup at [facility] #[id number] 05/08 9PM Changed ChlorproMAZINE (chlorproMAZINE 100 mg oral tablet) 100 Milligram Oral Daily at Bedtime Duration: 14 Days Pickup at [facility] #[id number] 05/08 9PM Changed ChlorproMAZINE (chlorproMAZINE 50 mg oral tablet) 50 Milligram Oral Daily before lunch Duration: 14 Days Pickup at [facility] #[id number] 05/09 11AM Changed ChlorproMAZINE (chlorproMAZINE 50 mg oral tablet) 1 tab(s) Oral Daily in the morning Pickup at [facility] #[id number] 05/09 9AM Changed Divalproex Sodium (divalproex sodium 500 mg oral enteric coated tablet) 2 tablets Oral Daily at Bedtime Duration: 14 Days Pickup at [facility] #[id number] 05/08 9PM Changed Divalproex Sodium (divalproex sodium 500 mg oral enteric coated tablet) 1 tab(s) Oral Daily in the morning Duration: 14 Days Pickup at [facility] #[id number] 05/09 9AM Unchanged Albuterol (Ventolin HFA 108 mcg/ inh inhalation aerosol with adapter) 1 puff(s) Inhalation 4 times a day as needed for for wheezing As directed Unchanged Aripiprazole (ARIPiprazole 30 mg oral tablet) 1 tab(s) Oral Daily Duration: 14 Days Pickup at [facility] #21072 05/09 9AM Unchanged Benztropine (benztropine 1 mg oral tablet) 1 tab(s) Oral Daily Duration: 14 Days Pickup at [facility] #35940 05/09 9AM Unchanged Clonidine (cloNIDine 0.2 mg oral tablet) 1 tab(s) Oral Twice a day Duration: 10 Days 05/08 9PM Unchanged Codeine Oral Every 4 hours As directed Unchanged Docusate (docusate sodium 100 mg oral capsule) 1 capsule Oral Twice a day 05/08 9PM Unchanged Escitalopram (escitalopram 10 mg oral tablet) 1 tab(s) Oral Daily 05/09 9AM Unchanged Fluticasone Nasal (fluticasone 50 mcg/ inh nasal spray) 2 spray(s) Nares, Both Daily in the morning 05/09 9AM Unchanged Fluticasone-Salmeterol (Wixela Inhub 500 mcg-50 mcg inhalation powder) 1 inhalation Inhalation Twice a day rinse mouth and throat after use ?? As directed Unchanged Furosemide (furosemide 80 mg oral tablet) 1 tab(s) Oral Daily 05/09 9AM Unchanged Levothyroxine (levothyroxine 0.05 mg oral tablet) 1 tab(s) Oral Daily Duration: 14 Days 05/09 7AM Unchanged Methocarbamol (methocarbamol 750 mg oral tablet) 1 tab(s) Oral 3 times a day Resume home schedule Unchanged Montelukast (Singulair) 10 Milligram Oral Daily 05/09 9AM Unchanged Omeprazole (omeprazole 40 mg oral enteric coated capsule) 1 capsule Oral Daily 05/09 9AM Unchanged Pregabalin (pregabalin 200 mg oral capsule) 1 capsule Oral Twice a day 05/08 9PM Unchanged Tamsulosin (tamsulosin 0.4 mg oral capsule) 1 capsule Oral Daily at Bedtime 05/08 9PM Pharmacy Information [facility] #[id number]: [address], [place] [id number] [phone] Test Results Below is a partial list of the most recent Laboratory test results done prior to this discharge. You may have had other tests and procedures not included in this list. Please discuss all test resultswith your provider. RBC Available - PT (05/07/2022) RBC Unit ID - [id number] (05/07/2022) Alcohol Level (05/03/2022) ???Ethanol, Serum or Plasma - NONE DETECTED AMPHETAMINE SCREEN, URINE (05/03/2022) ???Amphetamine Screen, Urine - NONE DETECTED BARBITURATES SCREEN, URINE (05/03/2022) ???Barbiturate Screen, Urine - NONE DETECTED Basic Metabolic Panel (05/07/2022) ???Sodium - 134 mmol/L???Potassium - 4.5 mmol/L???Chloride - 97 mmol/L???Bicarbonate Level - 29 mmol/L???Anion Gap - 8???Glucose Level - 141 mg/dL???BUN - 13 mg/dL???Creatinine-Blood - 0.8 mg/dL???Estimated GFR Creatinine - 114 ML/MIN/1.73 M2???Calcium - 9.0 mg/dL BENZODIAZEPINE SCREEN, URINE (05/03/2022) ???Benzodiazepine Screen, Urine - POSITIVE CANNABINOID SCREEN, URINE (05/03/2022) ???Cannabinoid Screen, Urine - NONE DETECTED CBC (05/08/2022) ???WBC - 3.7 k/mm3???RBC - 3.21 m/mm3???Hgb - 7.7 Gm/dL???Hct - 26.2 %???MCV - 81.6 femtoliters???MCH - 24.0 pg???MCHC - 29.4 g/dL???Platelet Count - 250 k/mm3???RDW-SD - 47.3 femtoliters???MPV - 9.4femtoliters???Nucleated RBC (Automated) - 0.0 #/100 WBC'S???Abs. NRBC - 0.0 k/mm3 CBC w/ Differential (05/07/2022) ???WBC - 4.9 k/mm3???RBC - 2.98 m/mm3???Hgb - 7.1 Gm/dL???Hct - 23.7 %???MCV - 79.5 femtoliters???MCH - 23.8 pg???MCHC - 30.0 g/dL???Platelet Count - 270 k/mm3???RDW-SD - 46.1 femtoliters???MPV - 9.1femtoliters???Nucleated RBC (Automated) - 0.0 #/100 WBC'S???Abs. NRBC - 0.0 k/mm3???Abs. Neut - 2.6 k/mm3???Abs. Lymph - 1.5 k/mm3???Abs. [place] - 0.6 k/mm3???Abs. Eo - 0.2 k/mm3???Abs. Baso - 0.0 k/mm3???Neut % - 52.0 %???Lymph % - 30.1 %???[place] % - 12.0 %???Eos % - 4.7 %???Baso % - 0.6 %???Imm Gran- 0.6 %???Abs. Imm Gran - 0.0 k/mm3 COCAINE SCREEN, URINE (05/03/2022) ???Cocaine Metabolite Screen, Urine - NONE DETECTED Comprehensive Metabolic Panel (05/04/2022) ???Sodium - 138 mmol/L???Potassium - 4.5 mmol/L???Chloride - 102 mmol/L???Bicarbonate Level - 26 mmol/L???Anion Gap - 10???Glucose Level - 93 mg/dL???BUN - 11 mg/dL???Creatinine-Blood - 0.9 mg/dL???Estimated GFR Creatinine - 113 ML/MIN/1.73 M2???Calcium - 9.8 mg/dL???Protein, Total - 7.9 Gm/dL???Alb umin - 4.5 Gm/dL???AG Ratio - 1.3???Alkaline Phosphatase - 126 units/L???AST (SGOT) - 30 units/L???ALT (SGPT) - 17 units/L???Bilirubin, Total - 0.2 mg/dL COVID-19 (2019 Novel Coronavirus) PCR (05/07/2022) ???COVID-19 PCR Specimen Source - NASAL???COVID-19 PCR Result - NEGATIVE CRP (05/04/2022) ???C-Reactive Protein - 7.0 mg/dL FENTANYL SCREEN, URINE (05/03/2022) ???Fentanyl Screen, Urine Result - NONE DETECTED Free T3 (05/04/2022) ???T3, Free - 3.0 pg/mL FREE T4 (05/03/2022) ???Free T4 - 0.95 ng/dL GLUCOSE POC (05/07/2022) ???Glucose, POC - 121 mg/dL High??Sensitivity??Troponin T (05/03/2022) ???High Sensitivity Troponin (HSTnT) - 29 ng/L HOLD GEL TUBE (05/08/2022) ???Hold Gel Top - SPECIMEN DISCARDED AFTER 1 WEEK HOLD GREEN TUBE (05/05/2022) ???Hold Green Top - SPECIMEN DISCARDED AFTER 1 WEEK HOLD LAVENDER TUBE (05/05/2022) ???Hold Lavender Top - SPECIMEN DISCARDED AFTER 24 HOURS. INR (05/03/2022) ???INR - 1.1???Protime (PT) - 11.2 seconds Lactate Level (05/03/2022) ???Lactate - 1.2 mmol/L Magnesium Level (05/04/2022) ???Magnesium - 2.3 mg/dL METHADONE SCREEN, URINE (05/03/2022) ???Methadone Screen, Urine - NONE DETECTED OPIATES SCREEN, URINE (05/03/2022) ???Opiate Screen, Urine - POSITIVE PHENCYCLIDINE SCREEN, URINE (05/03/2022) ???PCP Screen, Urine - NONE DETECTED Phosphorus Level (05/04/2022) ???Phosphorus - 3.6 mg/dL ProBNP (05/03/2022) ???Nt-Probnp - 30 pg/mL Troponin T, High Sensitivity (05/03/2022) ???High Sensitivity Troponin (HSTnT) - 26 ng/L TSH with T4 Reflex (Adults Only) (05/03/2022) ???TSH - 10.80 uIU/mL Type and Screen (05/07/2022) ???Blood Type - O Positive???Antibody Screen - Negative UA W/HOLD FOR CULTURE FOR [facility] ER ONLY (05/03/2022) ???Appear/Color, Urine - COLORLESS???Specific [place], Urine - 1.012???pH, Urine - 8.0???Albumin, Urine - NEGATIVE???Glucose, Urine - NEGATIVE???Ketones, Urine - NEGATIVE???Bilirubin, Urine - NEGATIVE???Hemoglobin, Urine - NEGATIVE???Nitrite, Urine - NEGATIVE???Leukocyte, Urine - NEGATIVE???Urobilinogen - NORMAL? ?WBC's, Urine - NONE SEEN? ?RBC's, Urine - NONE SEEN? ?Squamous Epith - <1 /HPF? ?Hold Urine Culture - Testing available 48 hours from time of collection. VALPROIC (05/03/2022) ???Valproic Level - 6.6 mg/L Vancomycin Trough (05/05/2022) ???Vancomycin Level, Trough - 11.4 mg/L Allergies (NKA means No Known Allergies) Thorazine Zoloft ZyPREXA traZODone Problems Active Problems??(9) Allergic rhinitis?? Asthma?? Bipolar disorder with depression?? Chronic pain syndrome?? COVID-19?? Encounter for medication refill?? Generalized anxiety disorder?? GERD (gastroesophageal reflux disease)?? Hypothyroidism?? Education Materials Below is the list of Educational Leaflet Providered with your Discharge Instructions. Valuables and Belongings I fully understand and agree that [facility] accepts no responsibility for all my personal [...] and belongings home. ?? Safe envelope number: [id number] Date for Pt to Sign Valuables/Belongings: 05/05/22 14:13:00 ?? Other Discharge Information ?? Wound Assessment?? Wound Assessment?? Wound Location I: Leg, left lower Wound Type I: Shear Injury Wound I, Present on Admission: Yes ? Pulmonary Rehab Status?? Pulmonary Rehab Discharge Status?? Respiratory Rate: 18 br/min ? Common Emergency Awareness Tips IS IT [...] are strongly encouraged to quit. Please call [facility] Dr[facility] TATTOFF Link at [phone] or [phone] ([phone]) or log in to [email or web address] for referrals to smoking cessation programs. ?? The National Suicide Prevention Hotline is available 05/10 if you or someone you know needs to find a reason to keep living. By calling 7-599-716-YesVideo (4706) you'll be connected to a skilled, trained counselor at a crisis center in your area. INPATIENT DISCHARGE INSTRUCTIONS SIGNATURE AUDRA LAURI TO Location:[facility] Registration Date and Time:05/03/2022 10:40 EST Primary Care Physician: Soto RAMIREZ MD, Bal Serrano, I LAURI TO, have received the above patient education materials/instructions and have verbalized understanding. If ambulance or transport services are being used I further acknowledge being givena choice of service. ?? If you need to contact me, please call me at this number: . Patient/Vascular Physician Name: Patient/Vascular Physician Signature: Relationship to Patient: Witness Name/Signature: Date: * Mita Baptiste RN: PERFORM Event Display: Patient Education Leaflets Authored Date: [id number] Cellulitis ?? [id number] Cellulitis Cellulitis is an infection of the [...] antibiotics ?? Last Reviewed Date: 2021 ?? 2351-4791 [employer]. All rights reserved. This information is not intended as a substitute for professional medical care. Always follow your healthcare professional's instructions. ?? US.doppler Lower extremity vein - bilateral * BHSPowerscritrey , TAVARES S: TRANSCLauri Damian MD: VERIFY Joe Yeh DO L: SIGN Event Display: Result: Authored Date: [id number] US Doppler Ext Lower Venous Bilat Reason: Swelling Extremities; Clinical Question(s): Thrombosis COMPARISON: Left lower extremity Doppler ultrasound 06/16/2021 IMAGING TECHNIQUE: Ultrasound of the veins from the groin through the calf was performed using grayscale, color, and spectral Doppler ultrasound assessing for complete compressibility and normal flowcharacteristics. FINDINGS: RIGHT LOWER EXTREMITY: Common femoral vein: Patent. No thrombosis. Femoral vein: Patent. No thrombosis. Popliteal vein: Patent. No thrombosis. Gastrocnemius veins: The visualized portions are patent without evidence of thrombosis. Peroneal veins: The visualized portions are patent without evidence of thrombosis. Posterior tibial veins: Only seen proximally. The visualized portions are patent without evidence of thrombosis. LEFT LOWER EXTREMITY: Common femoral vein: Patent. No thrombosis. Femoral vein: Patent. No thrombosis. Popliteal vein: Patent. No thrombosis. Gastrocnemius veins: Patent, but only seen with color Doppler analysis. Peroneal veins: The visualized portions are patent without evidence of thrombosis. Posterior tibial veins: The visualized portions are patent without evidence of thrombosis. OTHER FINDINGS: There is diffuse calf edema. Scattered prominent lymph nodes in both groins which retain their fatty concepción. The appearance is nonspecific and may be reactive. IMPRESSION: 1. No evidence of deep venous thrombosis. 2. Diffuse calf edema bilaterally. I have personally reviewed the images and I agree with this report. WSN: [id number] Ordering Physician: Paco Jones Dictated By: Joe Yeh DO Dictated Date/Time: 05/06/22 4:54 pm Reviewed By: Lauri Gonzales MD Signed By: Lauri Gonzales MD Signed Date/Time: 05/06/22 4:59 pm Transcribed By: RAVINDER Transcribed Date/Time: 05/06/22 4:41 pm Patient Care team information Care Team Personnel Name: Konrad Gallegos RN Position: [facility] ED RN W/OE and Tasks Member Role: Primary Care Nurse Name: Niki Bright RN Position: [facility] RN Member Role: Primary Care Nurse Name: Fang Che Position: [facility] RN Member Role: Primary Care Nurse Name: Trisha Alamo RN Position: [facility] RN Supv Member Role: Primary Care Nurse Name: Rita Son NP Position: [facility] Associate Professional Member Role: Primary Care Nurse Address: Address: [address] [place] [address]- Name: Sol Chanel RN Position: [facility] RN Member Role: Primary Care Nurse Name: Trisha Beltrán RN Position: [facility] RN Supv Member Role: Primary Care Nurse Name: Helene Pérez RN Position: [facility] RN Member Role: Primary Care Nurse Name: Brenda Cuba RN Position: [facility] HBO Wound Member Role: Primary Care Nurse Name: Kell Alonso RN Position: [facility] RN Member Role: Primary Care Nurse Name: Faraz Barriga RN Position: [facility] RN Member Role: Primary Care Nurse Name: Richa Clay LPN Position: [facility] RN Member Role: Primary Care Nurse Name: Екатерина Chacko RN Position: [facility] RN Member Role: Primary Care Nurse Name: Anna Lackey RN Position: [facility] RN Member Role: Primary Care Nurse Name: Anna Oconnor RN Position: [facility] Speech Language Pathology Assistant Member Role: Primary Care Nurse Name: Kip Gonzalez RN Position: [facility] RN Member Role: Primary Care Nurse Address: Address: [address] [place] [address]- [place] Name: Kari Grijalva RN Position: [facility] RN Member Role: Primary Care Nurse Name: Sunitha Gutierrez RN Position: [facility] RN Member Role: Primary Care Nurse Name: April Acuña RN Position: [facility] RN Member Role: Primary Care Nurse Name: Li Esquivel RN Position: [facility] Hospital Speech Language Pathology Assistant Member Role: Primary Care Nurse Name: Soto RAMIREZ MD, James C Position: [facility] Outreach Member Role: PCP Address: Address: [address] [place] [address]- Name: Tunde White MD Position: [facility] Psychiatry MD Member Role: Lifetime Consulting Physician Address: Address: [address] [place] [address]- Name: *Betty STACK Attending Position: [facility] ED Medicine MD Name: Kell Angel Position: [facility] ED OA Charge Member Role: ED Associate Name: Kathy Wallace Position: [facility] ED TA [facility] Member Role: Patient Care Provider Name: Vonda Cantu RN Position: [facility] ED RN W/OE and Tasks Member Role: Patient Care Provider Care Team Related Persons Name: CIRO TO Address: home [address] [place] [address] Name: MÓNICA CREWS
--- OUTSIDE RECORDS SUMMARY | 2022-10-14 11:50 | XMS_ITS | Continuity of Care Document ---
Author Name Unknown Organization [facility] Address [address] [place] [address]- Care Team Providers Care Train Examiner Name Role Phone Soto RAMIREZ MD, Bal Serrano Primary Care Physician ( [phone] Encounter [facility] Date(s): 08/28/20 - 09/27/20 [facility] [address] [place], [place] [address] Attending Physician: Admtr, [id number] Admitting Physician: [...] 02/13/1911:48:23 EST, Aerosol, Route to Pharmacy Electronically, [id number], [facility]/pharmacy #1111 Start Date: 02/13/19 Status: Ordered Ambien [...] 3 Refills, Maintenance, 04/15/20 10:15:00 EST, Tablet, [facility] #[id number], Partial fill upon patient request if the prescription isfor a schedule II opioid drug., 183, cm, 04/15/20 0... Start Date: 04/15/20 Stop Date: 05/13/20 Status: Ordered amitriptyline 25 mg oral tablet 75 mg, 3, tablet, By Mouth, Daily, # 21 tablet, Refills 3, Tot. Refills 3, Maintenance, 04/13/20 14:55:00 EST, Route to Pharmacy Electronically, [facility] #[id number], Partial fill upon patientrequest if the prescription is for a schedule II op... Start Date: 04/13/20 Stop Date: 05/11/20 Status: Ordered baclofen 10 mg oral tablet 20 mg, 2, tablet, By Mouth, 2 times a day, # 56 tablet, Refills 1, Tot. Refills 1, Maintenance, 04/13/20 14:54:00 EST, Route to Pharmacy Electronically, [facility] #[id number], Partial fill uponpatient request if the prescription is for a schedu... Start Date: 04/13/20 Stop Date: 05/11/20 Status: Ordered busPIRone 15 mg oral tablet 1 tablet = 15 mg, By Mouth, 3 times a day, # 42 tablet, 1 Refills, Maintenance, 04/13/20 14:56:00 EST, Tablet, [facility] #[id number], Partial fill upon patient request if the prescription is for a schedule II opioid drug., 183, cm, 04/13/20 9:04... Start Date: 04/13/20 Stop Date: 05/11/20 Status: Ordered CeleBREX 100 mg oral capsule 1 capsule = 100 mg, By Mouth, 2 times a day, # 15 capsule, 0 Refills, Maintenance, 07/27/20 19:07:00 EDT, Capsule, [facility] #[id number], Partial fill upon patient request if the [...] 09/13/20 14:45:00 EDT, Route to Pharmacy Electronically, [facility] #[id number], Partial fill upon patient request if the prescription is for a salima... Start Date: 09/13/20 Status: Ordered fluticasone 50 mcg/inh nasal spray 2 sprays, Nares, Both, 2 times a day, # 9.9 mL, 0 Refills, Maintenance, 11/15/18 14:21:09 EDT, [place], 2 sprays Nares, Both 2 times a [...] 05/28/21 9:00:00 EDT, 05/28/20 15:55:00 EDT, Patch, [facility] #[id number], Partial fill upon patient request if the prescription is for aschedule II opioid drug., 1 patch Topically Daily,... Start Date: 05/28/20 Stop Date: 05/28/21 Status: Ordered propranolol 40 mg oral tablet 40 mg, 1, tablet, By Mouth, 2 times a day, # 28 tablet, Refills 1, Tot. Refills 1, Maintenance, 04/13/20 14:56:00 EST, Route to Pharmacy Electronically, [facility] #[id number], Partial fill uponpatient request if the prescription [...] 04/13/20 14:57:00 EST, Route to Pharmacy Electronically, [facility] #[id number], Partial fill upon patient request if the [...] 1 Refills, Maintenance, 04/13/20 14:55:00 EST, Tablet, [facility] #[id number], Partial fill upon patient request if the prescription is for a schedule II opioid drug., 183, cm, 04/13/20 9:0... Start Date: 04/13/20 Stop Date: 05/11/20 Status: Ordered traMADol 50 mg oral tablet 1 tablet = 50 mg, By Mouth, Every 12 hours, PRN for pain, # 10 tablet, 0 Refills, Maintenance, 07/27/20 19:15:00 EDT, Tablet, [facility] #[id number], Partial fill upon patient request if the [...] MESH VENTRALIGHT ECHO ELLIPS 4 - BARD ([id number]) 1 Bard Unknown HAYDEE:{01}[id number] Assigning Author ity:FDA
--- OUTSIDE RECORDS SUMMARY | 2022-10-14 11:50 | XMS_ITS | Continuity of Care Document ---
Author Name Unknown Organization [facility] Address [address] [place] [address]- Care Team Providers Care Hand Sander Name Role Phone Elijah Gibbons MD Primary Care Physician Encounter [facility] Date(s): 10/05/19 - 10/05/[address] [address]- [facility] Discharge Disposition: A-D/C Walkout Attending Physician: Frederick Coleman MD Admitting Physician: Frederick Coleman MD Referring Physician: Not on Staff, Referring MD Allergies, Adverse Reactions, Alerts Substance Reaction Severity Status Zoloft Active Thorazine Active traZODone Active PROzac Active SEROquel Active ZyPREXA Active Medications albuterol CFC free 90 mcg/inh inhalation aerosol 2, puffs, Inhalation, Every 4 hours, PRN, # 18 Gm, Refills 3, Tot. Refills 3, Maintenance, 02/13/1911:48:23 EST, Aerosol, Route to Pharmacy Electronically, [id number], [facility]1111 Start Date: 02/13/19 Status: Ordered [...] Refills, Maintenance, 02/28/19 12:11:45 EST, EC Tablet, [facility]/pharmacy #1111, 183, cm, 02/28/19 11:39:08 [...] Maintenance, 198:58:23 EST, Route to Pharmacy Electronically, [id number], [facility]/pharmacy #1111, 183, cm, 02/17/19 8:22:07 EST, Height, 127, kg... Start Date: 02/17/19 Status: Ordered fluticasone 50 mcg/inh nasal spray 2 sprays, Nares, Both, 2 times a day, # 9.9 mL, 0 Refills, Maintenance, 11/15/18 14:21:09 EDT, [place], 2 sprays Nares, Both 2 times a day Start Date: 11/15/18 Status: Ordered gabapentin 100 mg oral capsule 100 mg, 1, capsule, By Mouth, Daily at bedtime, # 30 capsule, Refills 0, Tot. Refills 0, Maintenance, 02/28/19 12:13:04 EST, Route to Pharmacy Electronically, [facility]/pharmacy #1111, 183, cm, 02/28/19 11:39:08 EST, Height, 124, kg, 02/22/19 8:26:27 EST, D... Start Date: 02/28/19 Status: Ordered gabapentin 800 mg oral tablet 1 tablet = 800 mg, By Mouth, 3 times a day, # 90 tablet, 1 Refills, Maintenance, 10/05/19 17:25:00 EDT, Tablet, [facility]/pharmacy #1111, 183, cm, 10/05/19 16:47:00 EDT, Height, 137.1, kg, 10/05/19 16:47:00 EDT, Dry Weight Start Date: 10/05/19 Status: Ordered ibuprofen 600 mg oral tablet 600 mg, 1, tablet, By Mouth, Every 8 hours, # 60 tablet, Refills 1, Tot. Refills 1, Acute 10/06/19 17:27:00 EDT, 10/05/19 17:26:00 EDT, Route to Pharmacy Electronically, [facility]/pharmacy #1111, 183, cm, 10/05/19 16:47:00 EDT, Height, 137.1, kg, 10/05/19 1... Start Date: 10/05/19 Stop Date: 10/06/19 Status: Ordered Lasix 20 mg oral tablet 20 mg, 1, tablet, By Mouth, 2 times a day, # 60 tablet, Refills 1, Tot. Refills 1, Maintenance, 10/05/19 17:26:00 EDT, Route to Pharmacy Electronically, [facility]/pharmacy #1111, 183, cm, 10/05/19 16:47:00EDT, Height, 137.1, [...] oldest [Reference Range]: 1 Height 183 cm (10/05/19 2:14 PM) Weight 137.1 kg (10/05/19 2:14 PM) Oxygen Saturation [94-100 %] 95 % (10/05/19 2:14 PM) Pulse Rate [55-90 bpm] 79 bpm (10/05/19 2:14 PM) Blood Pressure [90-138/55-84 mm Hg] 151/ 93mm Hg *H* (10/05/19 2:14 PM) Respiratory Rate [16-30 br/min] 16 br/mi n (10/05/19 2:14 PM) Temperature [96.8-100.4 DegF] 97.7 DegF (10/05/19 2:14 PM) Mode of Delivery (Oxygen) Room air (10/05/19 2:14 PM) Temperature Route Temporal (10/05/19 2:14 PM) Dry Weight 137.1 kg (10/05/19 2:14 PM) Weight Obtained Via Standing scale (10/05/19 2:14 PM) Social History Social History Type Response Smoking Status 5-9 cigarettes (betw een 1/4 to 1/2 pack)/day in last 30 days; Tobacco user in household: No entered on: 02/28/19 Sex
--- OUTSIDE RECORDS SUMMARY | 2022-10-14 11:50 | XMS_ITS | Continuity of Care Document ---
Author Name Unknown Organization [facility] Address [address] [place] [address]- Care Team Providers Care Air Conditioning Equipment Mechanic Name Role Phone Soto RAMIREZ MD, Bal Serrano Primary Care Physician ( [phone] [facility] Date(s): 09[facility]11[facility]20 [facility] [address] [place] [address]- Allergies, Adverse Reactions, Alerts Substance Reaction Severity [...] 02/13/1911:48:23 EST, Aerosol, Route to Pharmacy Electronically, [id number], [facility]/pharmacy #1111 Start Date: 02/13/19 Status: [...] 3 Refills, Maintenance, 04/15/20 10:15:00 EST, Tablet, [facility] #[id number], Partial fill upon patient request if the prescription isfor a schedule II opioid drug., 183, cm, 04/15/20 0... Start Date: 04/15/20 Stop Date: 05/13/20 Status: Ordered amitriptyline 25 mg oral tablet 75 mg, 3, tablet, By Mouth, Daily, # 21 tablet, Refills 3, Tot. Refills 3, Maintenance, 04/13/20 14:55:00 EST, Route to Pharmacy Electronically, [facility] #[id number], Partial fill upon patientrequest if the prescription is for a schedule II op... Start Date: 04/13/20 Stop Date: 05/11/20 Status: Ordered baclofen 10 mg oral tablet 20 mg, 2, tablet, By Mouth, 2 times a day, # 56 tablet, Refills 1, Tot. Refills 1, Maintenance, 04/13/20 14:54:00 EST, Route to Pharmacy Electronically, [facility] #[id number], Partial fill uponpatient request if the prescription is for a schedu... Start Date: 04/13/20 Stop Date: 05/11/20 Status: Ordered busPIRone 15 mg oral tablet 1 tablet = 15 mg, By Mouth, 3 times a day, # 42 tablet, 1 Refills, Maintenance, 04/13/20 14:56:00 EST, Tablet, [facility] #[id number], Partial fill upon patient request if the prescription is for a schedule II opioid drug., 183, cm, 04/13/20 9:04... Start Date: 04/13/20 Stop Date: 05/11/20 Status: Ordered CeleBREX 100 mg oral capsule 1 capsule = 100 mg, By Mouth, 2 times a day, # 15 capsule, 0 Refills, Maintenance, 07/27/20 19:07:00 EDT, Capsule, [facility] #[id number], Partial fill upon patient request if the [...] 09/13/20 14:45:00 EDT, Route to Pharmacy Electronically, [facility] #[id number], Partial fill upon patient request if the prescription is for a salima... Start Date: 09/13/20 Status: Ordered fluticasone 50 mcg/inh nasal spray 2 sprays, Nares, Both, 2 times a day, # 9.9 mL, 0 Refills, Maintenance, 11/15/18 14:21:09 EDT, [place], 2 sprays Nares, Both 2 times a [...] 05/28/21 9:00:00 EDT, 05/28/20 15:55:00 EDT, Patch, [facility] #[id number], Partial fill upon patient request if the prescription is for aschedule II opioid drug., 1 patch Topically Daily,... Start Date: 05/28/20 Stop Date: 05/28/21 Status: Ordered propranolol 40 mg oral tablet 40 mg, 1, tablet, By Mouth, 2 times a day, # 28 tablet, Refills 1, Tot. Refills 1, Maintenance, 04/13/20 14:56:00 EST, Route to Pharmacy Electronically, [facility] #[id number], Partial fill uponpatient request if the prescription [...] 04/13/20 14:57:00 EST, Route to Pharmacy Electronically, [facility] #[id number], Partial fill upon patient request if the [...] 1 Refills, Maintenance, 04/13/20 14:55:00 EST, Tablet, [facility] #[id number], Partial fill upon patient request if the prescription is for a schedule II opioid drug., 183, cm, 04/13/20 9:0... Start Date: 04/13/20 Stop Date: 05/11/20 Status: Ordered traMADol 50 mg oral tablet 1 tablet = 50 mg, By Mouth, Every 12 hours, PRN for pain, # 10 tablet, 0 Refills, Maintenance, 07/27/20 19:15:00 EDT, Tablet, [facility] #[id number], Partial fill upon patient request if the [...] MESH VENTRALIGHT ECHO ELLIPS 4 - BARD ([id number]) 1 Bard Unknown HAYDEE:{01}[id number] Assigning Author ity:FDA
--- OUTSIDE RECORDS SUMMARY | 2022-10-14 11:50 | XMS_ITS | Continuity of Care Document ---
Author Name Unknown Organization [facility] Address [address] [place] [address]- Care Team Providers Care Cheese Grader Name Role Phone Soto RAMIREZ MD, Bal Serrano Primary Care Physician Encounter [facility] Date(s): 02/15/21 - 02/16/[address] [address]- Discharge Disposition: A-D/C Home Attending Physician: Hilario Keenan DO Admitting Physician: Hilario Keenan DO Referring Physician: Not on Staff, Referring [...] 02/13/1911:48:23 EST, Aerosol, Route to Pharmacy Electronically, [id number], [facility]/pharmacy #[id number] Start Date: 02/13/19 Status: Ordered amitriptyline 100 mg oral tablet 1 tablet = 100 mg, By Mouth, Daily at bedtime, # 7 tablet, 3 Refills, Maintenance, 04/15/20 10:15:00 EST, Tablet, [facility] #[id number], Partial fill upon patient request if the prescription isfor a schedule II opioid drug., 183, cm, 04/15/20 0... Start Date: 04/15/20 Stop Date: 05/13/20 Status: Ordered amitriptyline 25 mg oral tablet 75 mg, 3, tablet, By Mouth, Daily, # 21 tablet, Refills 3, Tot. Refills 3, Maintenance, 04/13/20 14:55:00 EST, Route to Pharmacy Electronically, [facility] #[id number], Partial fill upon patientrequest if the prescription is for a schedule II op... Start Date: 04/13/20 Stop Date: 05/11/20 Status: Ordered busPIRone 15 mg oral tablet 1 tablet = 15 mg, By Mouth, 3 times a day, # 42 tablet, 1 Refills, Maintenance, 04/13/20 14:56:00 EST, Tablet, [facility] #[id number], Partial fill upon patient request if the [...] 09/13/20 14:45:00 EDT, Route to Pharmacy Electronically, [facility] #[id number], Partial fill upon patient request if the [...] Maintenance, 10/22/2121:52:00 EDT, Route to Pharmacy Electronically, [facility] #[id number], Partial fill upon patient request if the prescription is for a schedule II... Start Date: 10/22/20 Status: Ordered fluticasone 50 mcg/inh nasal spray 2 sprays, Nares, Both, 2 times a day, # 9.9 mL, 0 Refills, Maintenance, 11/15/18 14:21:09 EDT, [place], 2 sprays Nares, Both 2 times a [...] 0 Refills, Maintenance, 01/07/21 18:42:00 EDT, Tablet, [facility] #[id number], Partial fill upon patient request if the [...] 05/28/21 9:00:00 EDT, 05/28/20 15:55:00 EDT, Patch, [facility] #[id number], Partial fill upon patient request if the [...] 04/13/20 14:57:00 EST, Route to Pharmacy Electronically, [facility] #[id number], Partial fill upon patient request if the [...] 0 Refills, Maintenance, 07/27/20 19:15:00 EDT, Tablet, [facility] #[id number], Partial fill upon patient request if the [...] Range]: 1 2 3 Height 182 cm (02/16/21 9:33 AM) 182 cm (02/16/21 5:50 AM) 182 cm (02/16/21 1:04 AM) Weight 150 kg (02/16/21 9:33 AM) 150 kg (02/16/21 5:50 AM) 150 kg (02/16/21 1:04 AM) Oxygen Saturation [94-100 %] 100 % (02/16/21 9:33 AM) 100 % (02/16/21 5:50 AM) 100 % (02/15/21 11:25 PM) Pulse Rate [55-90 bpm] 105 bpm *H* (02/16/21 9:33 AM) 94 bpm *H* (02/16/21 5:50 AM) 76 bpm (02/15/21 11:25 PM) Body Mass Index [18.5-24.99] 45.28 *>HHI* (02/16/21 9:33 AM) 45.28 *>HHI* (02/16/21 5:50 AM) Blood Pressure [90-138/55-84 mm Hg] 144/102mm Hg *H* (02/16/21:33 AM) 164/90mm Hg *H* (02/16/21:50 AM) 110/62mm Hg (02/15/21 11:25 PM) Respiratory Rate [16-30 br/min] 20 br/min (02/16/21:33 AM) 20 br/min (02/16/21:50 AM) 18 br/min (02/15/21 11:25 PM) Temperature [96.8-100.4 DegF] 97.5 DegF (02/16/21:50 AM) 96.2 DegF *L* (02/15/21 11:25 PM) Liters per Minute 0 L/min (02/15/21 11:25 PM) Mode of Delivery (Oxygen) Room air (02/16/21 9:33 AM) Room air (02/16/21 5:50 AM) Room air (02/15/21 11:25 PM) Blood pressure sites Arm, left (02/16/21 9:33 AM) Arm, left (02/16/21 5:50 AM) Arm, right (02/15/21 11:25 PM) Temperature Route Oral (02/16/21 5:50 AM) Temporal (02/15/21 11:25 PM) Dry Weight 150 kg (02/16/21 9:33 AM) 150 kg (02/16/21 5:50 AM) 150 kg (02/16/21 1:04 AM) Weight Obtained Via Patient/family stated (02/16/21 1:04 AM) Dry Weight Obtained Via Patient/family stated (02/16/21 1:04 AM) Social History Social History Type Response Tobacco Use: 1PPD. Sex Medical Equipment Implanted Date:09/13/20Target Site:Abdomen Description Quantity MRI Company Model MESH VENTRALIGHT ECHO ELLIPS 4 - BARD ([id number]) 1 Bard Unknown HAYDEE:{01}[id number] Assigning Author ity:FDA
--- OUTSIDE RECORDS SUMMARY | 2022-10-14 11:50 | XMS_ITS | Continuity of Care Document ---
Author Name Unknown Organization [facility] Address [address] [place] [address]- Care Team Providers Care Telephone Service Adviser Name Role Phone Soto RAMIREZ MD, Bal Serrano Primary Care Physician ( [phone] Encounter [facility] Date(s): 12/12/21 - 12/12/[address] [address]- Discharge Disposition: A-D/C Home Attending Physician: Mansoor [...] 23:55:00 EDT, Inhaler, Route to Pharmacy Electronically, [id number], [email or web address] #[id number], 182, cm, 06/20/21 23:10:00 EDT,... Start Date: 06/20/21 Status: Ordered amitriptyline 150 mg oral tablet 1 tablet = 150 mg, By Mouth, Daily at bedtime, # 5 tablet, 4 Refills, Maintenance, 07/11/21 11:18:00 EDT, Tablet, [email or web address] #[id number], Partial fill upon patient request if the prescription isfor a schedule II opioid drug., 182, cm, 06/20/21 2... Start Date: 07/11/21 Stop Date: 08/05/21 Status: Ordered ARIPiprazole 15 mg oral tablet 15 mg, 1, tablet, By Mouth, Daily, # 7 tablet, Refills 3, Tot. Refills 3, Maintenance, 07/14/21 11:18:00 EDT, Route to Pharmacy Electronically, [email or web address] #[id number], Partial fill upon patient request if the [...] 3 Refills, Maintenance, 07/14/21 11:19:00 EDT, Tablet, [email or web address] #[id number], Partial fill upon patient request if the [...] 06/20/21 23:55:00 EDT, Route to Pharmacy Electronically, [email or web address] #[id number], Partial fill upon patient request if the [...] 3 Refills, Maintenance, 07/14/21 11:19:00 EDT, Tablet, [email or web address] #[id number], Partial fill upon patient request if the prescription is for a schedule II opioid drug., 182, cm, 06/20/21 23:10:00 EDT... Start Date: 07/14/21 Stop Date: 08/11/21 Status: Ordered docusate sodium 100 mg oral capsule 100 mg, 1, capsule, By Mouth, 2 times a day, # 60 capsule, Refills 0, Tot. Refills 0, Maintenance, 06/20/21 23:57:00 EDT, Route to Pharmacy Electronically, [email or web address] #[id number], Partial fill upon patient request if the prescription is for a salima... Start Date: 06/20/21 Status: Ordered doxycycline hyclate 100 mg oral capsule 1 capsule = 100 mg, By Mouth, 2 times a day, for 7 days, # 14 capsule, 0 Refills, Acute 12/15/21 10:47:00 EDT, 12/08/21 10:47:00 EDT, Capsule, [email or web address] #[id number], Partial fill upon patient request if the prescription is for a schedule II opio... Start Date: 12/08/21 Stop Date: 12/15/21 Status: Ordered Flomax 0.4 mg oral capsule 0.4 mg, 1, capsule, By Mouth, Daily, # 30 capsule, Refills 0, Tot. Refills 0, Maintenance, 06/20/2222:57:00 EDT, Route to Pharmacy Electronically, [email or web address] #[id number], Partial fill upon patient request if the prescription is for a schedule II... Start Date: 06/20/21 Status: Ordered fluticasone 50 mcg/inh nasal spray 2 sprays, Nares, Both, 2 times a day, # 9.9 mL, 0 Refills, Maintenance, 11/15/18 14:21:09 EDT, [place], 2 sprays Nares, Both 2 times a [...] Status: Ordered methadone 10 mg oral tablet 45 mg, Tablet, By Mouth, Once, Routine, 12/12/21 13:00:00 EDT, Stop date 12/12/21 13:00:00 EDT Start Date: 12/12/21 Stop Date: 12/12/21 Status: Completed methocarbamol 500 mg oral tablet [...] 09/08/21 5:22:00 EDT, [id number], Partial fill upon patient request if the [...] to oldest [Reference Range]: 1 2 Height 180 cm (12/12/21 12:19 PM) Weight 100 kg (12/12/21 12:19 PM) Oxygen Saturation [94-100 %] 99 % (12/12/21 12:19 PM) Pulse Rate [55-90 bpm] 95 bpm *H* (12/12/21 12:19 PM) Blood Pressure [90-138/55-84 mm Hg] 156/ 70mm Hg *H* (12/12/21 12:19 PM) Respiratory Rate [16-30 br/min] 16 br/mi n (12/12/21 1:12 PM) 18 br/min (12/12/21 12:19 PM) Temperature [96.8-100.4 DegF] 98.0 DegF (12/12/21 12:19 PM) Mode of Delivery (Oxygen) Room air (12/12/21 12:19 PM) Blood pressure sites Arm, right (12/12/21 12:19 PM) Temperature Route Oral (12/12/21 12:19 PM) Dry Weight 100 kg (12/12/21 12:19 PM) Social History Social History Type Response [...] Code MRI Safety Implantable Status 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 [id number] Unknown [id number] Unknown 03/11/21 Unknown Unknown Active GS1 Patient Care team information Personnel Name: Soto RAMIREZ MD, Bal Serrano Address: Address: [address] [place] [id number]
--- OUTSIDE RECORDS SUMMARY | 2022-10-14 11:50 | XMS_ITS | Continuity of Care Document ---
Author Name Unknown Organization [facility] Address [address] [place] [address]- Care Team Providers Care [employer] Name Role Phone Not on Staff, PCP Primary Care Physician Unavail able Encounter [facility] Date(s): 07/14/22 - 07/14/[address] [address]- Discharge Disposition: A-D/C Home Attending Physician: Mansoor Swann MD Admitting Physician: Mansoor Swann MD Referring Physician: Not on Staff, Referring MD Allergies, Adverse Reactions, Alerts Substance Reaction Severity Status Zoloft Active Thorazine Active traZODone Active ZyPREXA Active Immunizations Given and Recorded Vaccine Date Status Refusal Reason tetanus/diphtheria/pertussis, acel(Tdap) 04/09/22 Recorded tetanus/diphtheria/pertussis, acel(Tdap) 05/18/18 Recorded tetanus/diphtheria/pertussis, acel(Tdap) 12/19/16 Recorded [id number] 12y+ bivalent booster vax 02/11/22 Recorded SARS-CoV-2 [...] 1 Refills, Maintenance, 05/08/22 12:50:00 EST, Tablet, [facility] #[id number], Partial fill upon patient request if the prescription is for a schedule II opioid drug., yolanda Go, 05/08/22 7:19:00 EST,... Start Date: 05/08/22 Stop Date: 06/05/22 Status: Ordered benztropine 1 mg oral tablet 1 mg, 1, tablet, By Mouth, Daily, # 14 tablet, Refills 1, Tot. Refills 1, Maintenance, 05/08/22 12:50:00 EST, Route to Pharmacy Electronically, [facility] #[id number], Partial fill upon patient request if the prescription is for a schedule II opi... Start Date: 05/08/22 Stop Date: 06/05/22 Status: Ordered busPIRone 30 mg oral tablet 1 tablet = 30 mg, By Mouth, 2 times a day, # 28 tablet, 0 Refills, Maintenance, 05/08/22 12:59:00 EST, Tablet, [facility] #[id number], Partial fill upon patient request if the prescription is for a schedule II opioid drug., yolanda Go, 05/08/22 7:19... Start Date: 05/08/22 Stop Date: 05/22/22 Status: Ordered chlorproMAZINE 100 mg oral tablet = 100 mg, By Mouth, Daily at bedtime, # 14 tablet, 0 Refills, Maintenance, 05/08/22 12:52:00 EST, Tablet, [facility] #[id number], Partial fill upon patient request if the prescription is for a schedule II opioid drug., yolanda Go, 05/08/22 7:19:00 E... Start Date: 05/08/22 Stop Date: 05/22/22 Status: Ordered chlorproMAZINE 50 mg oral tablet = 50 mg, By Mouth, Daily before lunch, # 14 tablet, 0 Refills, Maintenance, 05/08/22 12:51:00 EST, Tablet, [facility] #[id number], Partial fill upon patient request if the prescription is for a schedule II opioid drug., yolanda Go, 05/08/22 7:19:00... Start Date: 05/08/22 Stop Date: 05/22/22 Status: Ordered chlorproMAZINE 50 mg oral tablet 1 tablet = 50 mg, By Mouth, Daily in AM, # 180 tablet, 0 Refills, Maintenance, 05/08/22 12:53:00 EST, Tablet, [facility] #[id number], Partial fill upon patient request if the prescription is fora schedule II opioid drug., 176, yolanda, 05/08/22 7:19:... Start Date: 05/08/22 Status: Ordered cloNIDine 0.2 mg oral tablet 0.2 mg, 1, tablet, By Mouth, 2 times a day, # 20 tablet, Refills 2, Tot. Refills 2, Maintenance, 01/01/22 15:56:00 EDT, Route to Pharmacy Electronically, [facility] #[id number], Partial fill upon patient request if the prescription is for a sched... Start Date: 01/01/22 Stop Date: 01/31/22 Status: Ordered diazepam 5 mg oral tablet 5 mg, 1, tablet, By Mouth, 2 times a day, # 10 tablet, Refills 0, Tot. Refills 0, Acute 07/16/22 8:53:00 EDT, 07/11/22 8:53:00 EDT, Route to Pharmacy Electronically, [facility] #[id number], Partial fill upon patient request if the prescription is... Start Date: 07/11/22 Stop Date: 07/16/22 Status: Ordered divalproex sodium 500 mg oral enteric coated tablet 1 tablet = 500 mg, By Mouth, Daily in AM, # 14 tablet, 0 Refills, Maintenance, 05/08/22 12:49:00 EST, Tablet, [facility] #[id number], Partial fill upon patient request if the prescription is fora schedule II opioid drug., 176, yolanda, 05/08/22 7:19:... Start Date: 05/08/22 Stop Date: 05/22/22 Status: Ordered divalproex sodium 500 mg oral enteric coated tablet 2 tablets, By Mouth, Daily at bedtime, # 28 tablet, 0 Refills, Maintenance, 05/08/22 12:49:00 EST, Tablet, [facility] #[id number], Partial fill upon patient request if the prescription is for a schedule II opioid drug., 176, yolanda, 05/08/22 7:19:00... Start Date: 05/08/22 Stop Date: 05/22/22 Status: Ordered docusate sodium 100 mg oral capsule 100 mg, 1, capsule, By Mouth, 2 times a day, # 60 capsule, Refills 0, Tot. Refills 0, Maintenance, 06/20/21 23:57:00 EDT, Route to Pharmacy Electronically, [facility] #[id number], Partial fill upon patient request if the [...] AM, 0 Refills, Maintenance, 03/10/22 8:17:00 EST, [place], Partial fill upon patient request if the [...] 1 Refills, Maintenance, 01/02/22 9:22:00 EDT, Tablet, [facility] #[id number], Partial fill upon patient request if the [...] [Reference Range]: 1 2 Height 186 cm (07/14/22 9:21 AM) 186 cm (07/14/22 8:50 AM) Weight 120 kg (07/14/22 9:21 AM) 120 kg (07/14/22 8:50 AM) Oxygen Saturation [94-100 %] 99 % (07/14/22 8:50 AM) Pulse Rate [55-90 bpm] 79 bpm (07/14/22 8:50 AM) Blood Pressure [90-138/55-84 mm Hg] 109/ 73mm Hg (07/14/22 8:50 AM) Respiratory Rate [16-30 br/min] 16 br/mi n (07/14/22 8:50 AM) Temperature [96.8-100.4 DegF] 98.0 DegF (07/14/22 8:50 AM) Mode of Delivery (Oxygen) Room air (07/14/22 8:50 AM) Blood pressure sites Arm, right (07/14/22 8:50 AM) Temperature Route Temporal (07/14/22 8:50 AM) Dry Weight 120 kg (07/14/22 9:21 AM) 120 kg (07/14/22 8:50 AM) Weight Obtained Via Patient/family state d (07/14/22 8:50 AM) Dry Weight Obtained Via Patient/family s tated (07/14/22 8:50 AM) Social History Social History Type Response [...] Code MRI Safety Implantable Status 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 [id number] Unknown [id number] Unknown 03/11/21 Unknown Unknown Active GS1 Note * Mansoor Swann MD: PERFORM, SIGN, VERIFY Event Display: Patient Education Handout Authored Date: [id number] * Mansoor Swann MD: PERFORM Event Display: Patient Education Leaflets Authored Date: [id number] Knee Pain with Uncertain Cause ?? [id number] Knee Pain with Uncertain Cause Knee pain has several common causes. These can include: ??? A sprain of the ligaments that support the joint ??? An injury to the cartilage lining of the joint ??? Arthritis from yqzg-ker-njdn or inflammation There are other causes as well. You may have swelling, reduced movement of the knee joint, and painwith walking. A definite diagnosis will still need to be made. If your symptoms don't get better, you may need further follow-up and testing. Home care ??? Stay off the injured leg as much as possible until pain improves. ??? Apply an ice pack over the injured area for 15 to 20 minutes every 3 to 6 hours. Do this for the first 24 to 48 hours. You can make an ice pack by filling a plastic bag that seals at the top with ice cubes and then wrapping it with a thin towel. Continue to use ice packs for relief of pain and swelling as needed. As the ice melts, be careful not to get your wrap, splint, or cast wet. After 48 hours, apply heat (warm shower or warm bath) for 15 to 20 minutes several times a day, or alternate ice and heat. If you have to wear a nlpf-ydu-utpr knee brace, you can open it to apply the ice pack, or heat, directly to the knee. Never put ice directly on the skin. Always wrap the ice in a towel or other type of cloth. ??? You may use wyuc-iwl-ivihdie pain medicine to control pain, unless another pain medicine wasprescribed. Talk with your healthcare provider before using these medicines if you have chronic liver or kidney disease. Also talk with your provider if you have had a stomach ulcer or digestive bleeding or take a blood thinner.. ??? If crutches or a walker have been recommended, don't put weight on the injured leg until you can do so without pain. Check with your healthcare provider before returning to sports or full work duties. ??? If you have a fryq-huf-iict knee brace, you can remove it tobathe and sleep, unless told otherwise. ?? Follow-up care Follow up with your healthcare provider as advised. This is usually within 1 to 2 weeks. If X-rays were taken, you will be told of any new findings that may affect your care ?? Call 911 Call 911 if you have: ??? Shortness of breath ??? Chest pain ?? When to seek medical advice Call your healthcare provider right away if any of these occur: ??? Toes or foot becomes swollen, cold, blue, numb, or tingly ??? Pain or swelling spreads over the knee or calf ??? Warmth or redness appears over the knee or calf ??? Other joints become painful ??? Rash appears ??? Fever of 100.4??F(38??C) or higher, or as directed by your healthcare provider ??? Chills ?? Last Reviewed Date: 2020 ?? [id number] The [employer]. All rights reserved. This information is not intended as a substitute for professional medical care. Always follow your healthcare professional's instructions. ?? Patient Care team information Care Team Personnel Name: Konrad Gallegos RN Position: [facility] ED RN W/OE and Tasks Member Role: Primary Care Nurse Name: Niki Bright RN Position: [facility] RN Member Role: Primary Care Nurse Name: Fang Che Position: [facility] RN Member Role: Primary Care Nurse Name: Trisha Alamo RN Position: [facility] RN Supv Member Role: Primary Care Nurse Name: Rita Son NP Position: [facility] Associate Professional Member Role: Primary Care Nurse Address: Address: [address] [place] [address] Name: Sol Chanel RN Position: [facility] RN Member Role: Primary Care Nurse Name: Trisha Beltrán RN Position: [facility] RN Supv Member Role: Primary Care Nurse Name: Helene Pérez RN Position: [facility] RN Member Role: Primary Care Nurse Name: Brenda Cuba RN Position: [facility] HBO Wound Member Role: Primary Care Nurse Name: Kell Alonso RN Position: [facility] RN Member Role: Primary Care Nurse Name: Faraz Barriga RN Position: [facility] RN Member Role: Primary Care Nurse Name: Richa Clay LPN Position: [facility] RN Member Role: Primary Care Nurse Name: Екатерина Chacko RN Position: [facility] RN Member Role: Primary Care Nurse Name: Anna Lackey RN Position: [facility] RN Member Role: Primary Care Nurse Name: Elizabeth Ha RN Position: [facility] RN Member Role: Primary Care Nurse Name: Not on Staff, PCP Position: [facility] Physician (General Medicine) Member Role: PCP Name: Anna Oconnor RN Position: [facility] Hospital Senior Windows Engineer Member Role: Primary Care Nurse Name: Kip Gonzalez RN Position: [facility] RN Member Role: Primary Care Nurse Address: Address: [address] [place] [id number]- [place] Name: Anisha Hinds RN Position: [facility] RN Member Role: Primary Care Nurse Name: Sunitha Gutierrez RN Position: [facility] RN Member Role: Primary Care Nurse Name: April Acuña RN Position: [facility] RN Member Role: Primary Care Nurse Name: Li Esquivel RN Position: [facility] Senior Windows Engineer Member Role: Primary Care Nurse Name: Tunde White MD Position: [facility] Psychiatry MD Member Role: Lifetime Consulting Physician Address: Address: [address] [place] [address]- [place] Name: Nelson Raymond Position: [facility] ED TA NAYANA Name: Neelima Vee RN Position: [facility] RN W/OE and Tasks Member Role: Patient Care Provider Name: Mansoor Swann MD Position: [facility] ED Medicine MD Member Role: Admitting Physician Address: Address: [address] [place] [address]- [place] Care Team Related Persons Name: FORREST TO Address: home [address] [place] [address] Name: MÓNICA CREWS
--- OUTSIDE RECORDS SUMMARY | 2022-10-14 11:50 | XMS_ITS | Continuity of Care Document ---
Author Name Unknown Organization [facility] Address [address] [place] [address]- Care Team Providers Care Tunnel Kiln Operator Name Role Phone Not on Staff, PCP Primary Care Physician Unavail able Encounter [facility] Date(s): 05/12/22 - 06/11/[address] [address]- Attending Physician: Kings HENDERSON, [place] Referring Physician: Kings HENDERSON, [place] Allergies, Adverse Reactions, Alerts Substance Reaction Severity Status Zoloft Active Thorazine Active traZODone Active ZyPREXA Active Immunizations Given and Recorded Vaccine Date Status Refusal Reason tetanus/diphtheria/pertussis, acel(Tdap) 04/09/22 Recorded tetanus/diphtheria/pertussis, acel(Tdap) 05/18/18 Recorded tetanus/diphtheria/pertussis, acel(Tdap) 12/19/16 Recorded [id number] 12y+ bivalent booster vax 02/11/22 Recorded SARS-CoV-2 [...] 1 Refills, Maintenance, 05/08/22 12:50:00 EST, Tablet, [facility] #[id number], Partial fill upon patient request if the prescription is for a schedule II opioid drug., 176, cm, 05/08/22 7:19:00 EST,... Start Date: 05/08/22 Stop Date: 06/05/22 Status: Ordered benztropine 1 mg oral tablet 1 mg, 1, tablet, By Mouth, Daily, # 14 tablet, Refills 1, Tot. Refills 1, Maintenance, 05/08/22 12:50:00 EST, Route to Pharmacy Electronically, [facility] #[id number], Partial fill upon patient request if the prescription is for a schedule II opi... Start Date: 05/08/22 Stop Date: 06/05/22 Status: Ordered busPIRone 30 mg oral tablet 1 tablet = 30 mg, By Mouth, 2 times a day, # 28 tablet, 0 Refills, Maintenance, 05/08/22 12:59:00 EST, Tablet, [facility] #[id number], Partial fill upon patient request if the prescription is for a schedule II opioid drug., yolanda Go, 05/08/22 7:19... Start Date: 05/08/22 Stop Date: 05/22/22 Status: Ordered chlorproMAZINE 100 mg oral tablet = 100 mg, By Mouth, Daily at bedtime, # 14 tablet, 0 Refills, Maintenance, 05/08/22 12:52:00 EST, Tablet, [facility] #[id number], Partial fill upon patient request if the prescription is for a schedule II opioid drug., yolanda Go, 05/08/22 7:19:00 E... Start Date: 05/08/22 Stop Date: 05/22/22 Status: Ordered chlorproMAZINE 50 mg oral tablet = 50 mg, By Mouth, Daily before lunch, # 14 tablet, 0 Refills, Maintenance, 05/08/22 12:51:00 EST, Tablet, [facility] #[id number], Partial fill upon patient request if the prescription is for a schedule II opioid drug., yolanda Go, 05/08/22 7:19:00... Start Date: 05/08/22 Stop Date: 05/22/22 Status: Ordered chlorproMAZINE 50 mg oral tablet 1 tablet = 50 mg, By Mouth, Daily in AM, # 180 tablet, 0 Refills, Maintenance, 05/08/22 12:53:00 EST, Tablet, [facility] #[id number], Partial fill upon patient request if the prescription is fora schedule II opioid drug., 176, cm, 05/08/22 7:19:... Start Date: 05/08/22 Status: Ordered cloNIDine 0.2 mg oral tablet 0.2 mg, 1, tablet, By Mouth, 2 times a day, # 20 tablet, Refills 2, Tot. Refills 2, Maintenance, 01/01/22 15:56:00 EDT, Route to Pharmacy Electronically, [facility] #[id number], Partial fill upon patient request if the prescription is for a sched... Start Date: 01/01/22 Stop Date: 01/31/22 Status: Ordered divalproex sodium 500 mg oral enteric coated tablet 1 tablet = 500 mg, By Mouth, Daily in AM, # 14 tablet, 0 Refills, Maintenance, 05/08/22 12:49:00 EST, Tablet, [facility] #[id number], Partial fill upon patient request if the prescription is fora schedule II opioid drug., 176, cm, 05/08/22 7:19:... Start Date: 05/08/22 Stop Date: 05/22/22 Status: Ordered divalproex sodium 500 mg oral enteric coated tablet 2 tablets, By Mouth, Daily at bedtime, # 28 tablet, 0 Refills, Maintenance, 05/08/22 12:49:00 EST, Tablet, [facility] #[id number], Partial fill upon patient request if the prescription is for a schedule II opioid drug., 176, cm, 05/08/22 7:19:00... Start Date: 05/08/22 Stop Date: 05/22/22 Status: Ordered docusate sodium 100 mg oral capsule 100 mg, 1, capsule, By Mouth, 2 times a day, # 60 capsule, Refills 0, Tot. Refills 0, Maintenance, 06/20/21 23:57:00 EDT, Route to Pharmacy Electronically, [facility] #[id number], Partial fill upon patient request if the [...] AM, 0 Refills, Maintenance, 03/10/22 8:17:00 EST, [place], Partial fill upon patient request if the [...] 1 Refills, Maintenance, 01/02/22 9:22:00 EDT, Tablet, [facility] #[id number], Partial fill upon patient request if the [...] Confirmed Active 1Problem added by Discern Expert Social History Social History Type Response Smoking [...] Code MRI Safety Implantable Status 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 [id number] Unknown [id number] Unknown 03/11/21 Unknown Unknown Active GS1 Patient Care team information Care Team Personnel Name: Konrad Gallegos RN Position: [facility] ED RN W/OE and Tasks Member Role: Primary Care Nurse Name: Niki Bright RN Position: [facility] RN Member Role: Primary Care Nurse Name: Fang Che Position: [facility] RN Member Role: Primary Care Nurse Name: Trisha Alamo RN Position: [facility] RN Supv Member Role: Primary Care Nurse Name: Rita Son NP Position: [facility] Associate Professional Member Role: Primary Care Nurse Address: Address: [address] [place] [address]- [place] Name: Sol Chanel RN Position: [facility] RN Member Role: Primary Care Nurse Name: Trisha Beltrán RN Position: [facility] RN Supv Member Role: Primary Care Nurse Name: Helene Pérez RN Position: [facility] RN Member Role: Primary Care Nurse Name: Brenda Cuba RN Position: [facility] Wound Member Role: Primary Care Nurse Name: Kell Alonso RN Position: [facility] RN Member Role: Primary Care Nurse Name: Faraz Barriga RN Position: [facility] RN Member Role: Primary Care Nurse Name: Richa Clay LPN Position: [facility] RN Member Role: Primary Care Nurse Name: Екатерина Chacko RN Position: [facility] RN Member Role: Primary Care Nurse Name: Anna Lackey RN Position: [facility] RN Member Role: Primary Care Nurse Name: Elizabeth Ha RN Position: [facility] RN Member Role: Primary Care Nurse Name: Not on Staff, PCP Position: [facility] Physician (General Medicine) Member Role: PCP Name: Anna Oconnor RN Position: [facility] Hospital Loom Fixer Apprentice Member Role: Primary Care Nurse Name: Kip Gonzalez RN Position: [facility] RN Member Role: Primary Care Nurse Address: Address: [address] [place] [address]- [place] Name: Anisha Hinds RN Position: [facility] RN Member Role: Primary Care Nurse Name: Kari Grijalva RN Position: [facility] RN Member Role: Primary Care Nurse Name: Sunitha Gutierrez RN Position: [facility] RN Member Role: Primary Care Nurse Name: April Acuña RN Position: [facility] RN Member Role: Primary Care Nurse Name: Li Esquivel RN Position: [facility] Hospital Loom Fixer Apprentice Member Role: Primary Care Nurse Name: Tunde White MD Position: [facility] Psychiatry MD Member Role: Lifetime Consulting Physician Address: Address: [address] [place] [address]- Care Team Related Persons Name: FORREST TO Address: home [address] [place] [id number] Name: MÓNICA CREWS
--- OUTSIDE RECORDS SUMMARY | 2022-10-14 11:50 | XMS_ITS | Continuity of Care Document ---
Author Name Unknown Organization [facility] Address [address] [place] [address]- Care Team Providers Care Manager Storage Name Role Phone Soto RAMIREZ MD, Bal Serrano Primary Care Physician Encounter [facility] Date(s): 10/22/20 - 11/21/20 [facility] [address] [place], [place] [address] Attending Physician: AdmMike agee8 Admitting Physician: Admtr, Ar8 Referring Physician: Admtr, [...] 02/13/1911:48:23 EST, Aerosol, Route to Pharmacy Electronically, [id number], [facility]/pharmacy #[id number] Start Date: 02/13/19 Status: Ordered [...] 3 Refills, Maintenance, 04/15/20 10:15:00 EST, Tablet, [facility] #[id number], Partial fill upon patient request if the prescription isfor a schedule II opioid drug., 183, cm, 04/15/20 0... Start Date: 04/15/20 Stop Date: 05/13/20 Status: Ordered amitriptyline 25 mg oral tablet 75 mg, 3, tablet, By Mouth, Daily, # 21 tablet, Refills 3, Tot. Refills 3, Maintenance, 04/13/20 14:55:00 EST, Route to Pharmacy Electronically, [facility] #[id number], Partial fill upon patientrequest if the prescription is for a schedule II op... Start Date: 04/13/20 Stop Date: 05/11/20 Status: Ordered baclofen 10 mg oral tablet 20 mg, 2, tablet, By Mouth, 2 times a day, # 56 tablet, Refills 1, Tot. Refills 1, Maintenance, 04/13/20 14:54:00 EST, Route to Pharmacy Electronically, [facility] #[id number], Partial fill uponpatient request if the prescription is for a schedu... Start Date: 04/13/20 Stop Date: 05/11/20 Status: Ordered busPIRone 15 mg oral tablet 1 tablet = 15 mg, By Mouth, 3 times a day, # 42 tablet, 1 Refills, Maintenance, 04/13/20 14:56:00 EST, Tablet, [facility] #[id number], Partial fill upon patient request if the prescription is for a schedule II opioid drug., 183, cm, 04/13/20 9:04... Start Date: 04/13/20 Stop Date: 05/11/20 Status: Ordered cloNIDine 0.1 mg oral tablet 0.1 mg, 1, tablet, By Mouth, 2 times a day, # 10 tablet, Refills 0, Tot. Refills 0, Maintenance, 10/22/20 15:02:00 EDT, Route to Pharmacy Electronically, [facility] #[id number], Partial fill upon patient request if the [...] 09/13/20 14:45:00 EDT, Route to Pharmacy Electronically, [facility] #[id number], Partial fill upon patient request if the prescription is for a salima... Start Date: 09/13/20 Status: Ordered Flomax 0.4 mg oral capsule 0.4 mg, 1, capsule, By Mouth, Daily, # 30 capsule, Refills 0, Tot. Refills 0, Maintenance, 10/22/2121:52:00 EDT, Route to Pharmacy Electronically, [facility] #[id number], Partial fill upon patient request if the prescription is for a schedule II... Start Date: 10/22/20 Status: Ordered fluticasone 50 mcg/inh nasal spray 2 sprays, Nares, Both, 2 times a day, # 9.9 mL, 0 Refills, Maintenance, 11/15/18 14:21:09 EDT, [place], 2 sprays Nares, Both 2 times a [...] 05/28/21 9:00:00 EDT, 05/28/20 15:55:00 EDT, Patch, [facility] #[id number], Partial fill upon patient request if the prescription is for aschedule II opioid drug., 1 patch Topically Daily,... Start Date: 05/28/20 Stop Date: 05/28/21 Status: Ordered propranolol 40 mg oral tablet 40 mg, 1, tablet, By Mouth, 2 times a day, # 28 tablet, Refills 1, Tot. Refills 1, Maintenance, 04/13/20 14:56:00 EST, Route to Pharmacy Electronically, [facility] #[id number], Partial fill uponpatient request if the prescription [...] 04/13/20 14:57:00 EST, Route to Pharmacy Electronically, [facility] #[id number], Partial fill upon patient request if the [...] 0 Refills, Maintenance, 07/27/20 19:15:00 EDT, Tablet, [facility] #[id number], Partial fill upon patient request if the [...] MESH VENTRALIGHT ECHO ELLIPS 4 - BARD ([id number]) 1 Bard Unknown HAYDEE:{01}[id number] Assigning Author ity:FDA
--- OUTSIDE RECORDS SUMMARY | 2022-10-14 11:50 | XMS_ITS | Continuity of Care Document ---
Author Name Unknown Organization [facility] Address [address] [place] [address]- Care Team Providers Care Shelving Supervisor Name Role Phone Elijah Gibbons MD Primary Care Physician Encounter [facility] [id number] Date(s): 06/28/19 - 07/08/[address] [address]- [facility] Attending Physician: AdmMike agee8 Admitting Physician: AdmtrAmandeep Referring Physician: Admtr, Ar8 Allergies, Adverse Reactions, Alerts Substance Reaction Severity Status Zoloft Active Thorazine Active traZODone Active PROzac Active SEROquel Active ZyPREXA Active Medications albuterol CFC free 90 mcg/inh inhalation aerosol 2, puffs, Inhalation, Every 4 hours, PRN, # 18 Gm, Refills 3, Tot. Refills 3, Maintenance, 02/13/1911:48:23 EST, Aerosol, Route to Pharmacy Electronically, [id number], [facility]/pharmacy #[id number] Start Date: 02/13/19 Status: Ordered busPIRone 15 mg oral tablet 1 tablet = 15 mg, By Mouth, 3 times a day, # 90 tablet, 0 Refills, Maintenance, 02/28/19 12:08:43 EST, Tablet, [facility]/pharmacy #[id number], 183, cm, 02/28/19 11:39:08 EST, Height, 124, kg, 02/22/19 8:26:27 EST, Dry Weight Start Date: 02/28/19 Status: Ordered divalproex sodium 500 mg oral enteric coated tablet 1 tablet = 500 mg, By Mouth, 2 times a day, # 60 tablet, 1 Refills, Maintenance, 02/28/19 12:11:45 EST, EC Tablet, [facility]/pharmacy #1111, 183, cm, 02/28/19 11:39:08 EST, [...] Maintenance, 198:58:23 EST, Route to Pharmacy Electronically, [id number], [facility]/pharmacy #1111, 183, cm, 02/17/19 8:22:07 EST, Height, 127, kg... Start Date: 02/17/19 Status: Ordered fluticasone 50 mcg/inh nasal spray 2 sprays, Nares, Both, 2 times a day, # 9.9 mL, 0 Refills, Maintenance, 11/15/18 14:21:09 EDT, [place], 2 sprays Nares, Both 2 times a day Start Date: 11/15/18 Status: Ordered gabapentin 100 mg oral capsule 100 mg, 1, capsule, By Mouth, Daily at bedtime, # 30 capsule, Refills 0, Tot. Refills 0, Maintenance, 02/28/19 12:13:04 EST, Route to Pharmacy Electronically, [facility]/pharmacy #1111, 183, cm, 02/28/19 11:39:08 EST, [...]
--- OUTSIDE RECORDS SUMMARY | 2022-10-14 11:50 | XMS_ITS | Continuity of Care Document ---
Author Name Unknown Organization [facility] Address [address] [place] [address]- Care Team Providers Care Software Business Analyst Name Role Phone Soto RAMIREZ MD, Bal Serrano Primary Care Physician Encounter [facility] Date(s): 04/19/22 - 04/22/[address] [address]- Encounter Diagnosis Foreign body ingestion(Final) - 04/19/22 Discharge Disposition: A-D/C AMA Attending Physician: Mary Reyes MD Admitting Physician: Faraz Mckinley DO Referring Physician: Alcides Moreau MD Allergies, Adverse Reactions, Alerts Substance Reaction Severity Status Zoloft Active Thorazine Active traZODone Active ZyPREXA Active Immunizations Given and Recorded Vaccine Date Status Refusal Reason tetanus/diphtheria/pertussis, acel(Tdap) 04/09/22 Recorded tetanus/diphtheria/pertussis, acel(Tdap) 05/18/18 Recorded tetanus/diphtheria/pertussis, acel(Tdap) 12/19/16 Recorded [id number] 12y+ bivalent booster vax 02/11/22 Recorded SARS-CoV-2 [...] a day, PRN as needed for anxiety, 0 Refills, Maintenance, 04/19/22 23:08:00 EST, Tablet, Partial fill upon patient request if the prescription is for a schedule II opioid drug. Start Date: 04/19/22 Status: Ordered ARIPiprazole 30 mg oral tablet 1 tablet = 30 mg, By Mouth, Daily, # 14 tablet, 1 Refills, Maintenance, 01/01/22 15:55:00 EDT, Tablet, [facility] #[id number], Partial fill upon patient request if the prescription is for a schedule II opioid drug., 186, cm, 01/01/22 11:49:00 EDT... Start Date: 01/01/22 Stop Date: 01/29/22 Status: Ordered benztropine 1 mg oral tablet 1 mg, 1, tablet, By Mouth, Daily, # 14 tablet, Refills 1, Tot. Refills 1, Maintenance, 01/01/22 15:54:00 EDT, Route to Pharmacy Electronically, [facility] #[id number], Partial fill upon patient request if the prescription is for a schedule II opi... Start Date: 01/01/22 Stop Date: 01/29/22 Status: Ordered busPIRone 15 mg oral tablet 1 tablet = 15 mg, By Mouth, 3 times a day, # 30 tablet, 2 Refills, Maintenance, 01/01/22 15:55:00 EDT, Tablet, [facility] #[id number], Partial fill upon patient request if the prescription is for a schedule II opioid drug., 186, yolanda, 01/01/22 11:4... Start Date: 01/01/22 Stop Date: 01/31/22 Status: Ordered chlorproMAZINE 25 mg oral tablet 1 tablet = 25 mg, By Mouth, 2 times a day, # 60 tablet, 0 Refills, Maintenance, 03/11/22 10:21:00 EST, Tablet, Partial fill upon patient request if the prescription is for a schedule II opioid drug. Start Date: 03/11/22 Status: Ordered cloNIDine 0.2 mg oral tablet 0.2 mg, 1, tablet, By Mouth, 2 times a day, # 20 tablet, Refills 2, Tot. Refills 2, Maintenance, 01/01/22 15:56:00 EDT, Route to Pharmacy Electronically, [facility] #[id number], Partial fill upon patient request if the prescription is for a sched... Start Date: 01/01/22 Stop Date: 01/31/22 Status: Ordered Codeine 30mg/Acetaminophen 300mg Tablet 2 tablet, Tablet, By Mouth, Every 4 hours, PRN for Pain , Severe, STAT, 04/20/22 16:34:00 EST Start Date: 04/20/22 Stop Date: 04/23/22 Status: Discontinued divalproex sodium 500 mg oral enteric coated tablet 1 tablet = 500 mg, By Mouth, Daily in AM, 0 Refills, Maintenance, 03/11/22 10:18:00 EST, Partial fill upon patient request if the prescription is for a schedule II opioid drug. Start Date: 03/11/22 Status: Ordered divalproex sodium 500 mg oral enteric coated tablet 2 tablets, By Mouth, Daily at bedtime, 0 Refills, Maintenance, 03/11/22 10:19:00 EST, [facility] Tablet, Partial fill upon patient request if the prescription is for a schedule II opioid drug. Start Date: 03/11/22 Status: Ordered docusate sodium 100 mg oral capsule 100 mg, 1, capsule, By Mouth, 2 times a day, # 60 capsule, Refills 0, Tot. Refills 0, Maintenance, 06/20/21 23:57:00 EDT, Route to Pharmacy Electronically, [facility] #[id number], Partial fill upon patient request if the [...] AM, 0 Refills, Maintenance, 03/10/22 8:17:00 EST, [facility], Partial fill upon patient request if the [...] 1 Refills, Maintenance, 01/02/22 9:22:00 EDT, Tablet, [facility] #[id number], Partial fill upon patient request if the [...] for Microbiology Reports Name Date Blood Culture 04/19/22 Blood Culture #2 04/19/22 Microbiology Reports TEST:Blood Culture, Second Order STATUS:Unauthenticated BODY SITE: SOURCE:Blood COLLECTED DATE/TIME:04/20/22 12:10 AM Blood Culture, Second Order SPECIMEN DESCRIPTION : BLOOD LEFT AC SPECIAL REQUESTS : NONE CULTURE : NO GROWTH AFTER 48 HOURS REPORT STATUS : PRELIMINARY REPORT TEST:Blood Culture STATUS:Unauthenticated BODY SITE: SOURCE:Blood COLLECTED DATE/TIME:04/19/22 11:50 PM Blood Culture SPECIMEN DESCRIPTION : BLOOD RIGHT AC SPECIAL REQUESTS : NONE CULTURE : NO GROWTH AFTER 48 HOURS REPORT STATUS : PRELIMINARY REPORT Radiology Reports * Exam Date Time Procedure Performing Provider Status 04/22/22 3:04 PM Abdomen AP Forhan , Pedrito; Auth (Verif ied) Notes: (Abdomen AP) Reason For Exam: Foreign Body RESULT: XR Abdomen AP XR Abdomen AP 1 view INDICATION/CLINICAL QUESTION: Foreign Body COMPARISON: 04/22/2022 at 8:58 AM a multiple priors. FINDINGS: Unchanged position of urinary catheter and right lower quadrant ingested batteries likely residing within the ascending colon. Moderate stool retention but otherwise normal bowel gas pattern. No evidence of obstruction. No evidence of pneumoperitoneum within limits of a small [id number]. No organomegaly, masses or calcifications. No acute bone findings. IMPRESSION: No significant change in right lower quadrant ingested batteries likely residing within the ascending colon. Moderate colonic stool burden. Results were conveyed via Cortext by Dr. Ivory Sparks to Mary Reyes on 04/22/2022 at 3:54 PM. I have personally reviewed the images and I agree with this report. WSN: [id number] Ordering Physician: Mary Reyes Dictated By: Ivory Sparks MD Dictated Date/Time: 04/22/22 3:58 pm Reviewed By: Stone Mclaughlin MD Signed By: Stone Mclaughlin MD Signed Date/Time: 04/22/22 4:03 pm Transcribed By: RAVINDER Transcribed Date/Time: 04/22/22 3:54 pm * Exam Date Time Procedure Performing Provider Status 04/22/22 9:07 AM Abdomen AP Parisa Villatoro; Auth (Ve rified) Notes: (Abdomen AP) Reason For Exam: Foreign Body- Batteries;Foreign Body RESULT: XR Abdomen AP XR Abdomen AP 1 view INDICATION/CLINICAL QUESTION: Reason: Foreign Body- Batteries; Clinical Question(s): Foreign Body COMPARISON: 04/21/2022 and multiple priors. FINDINGS: Partially visualized urinary catheter. No significant change in right lower quadrant radiopacities corresponding to known ingested batteries. Moderate stool retention but otherwise normal bowel gas pattern. No evidence of obstruction. No evidence of pneumoperitoneum. No organomegaly, masses or calcifications. No acute bone findings. Clear lung bases. IMPRESSION: No significant change in right lower quadrant known ingested batteries likely residing in the ascending colon. Moderate stool retention. I have personally reviewed the images and I agree with this report. WSN: [id number] Ordering Physician: Mary Reyes Dictated By: Ivory Sparks MD Dictated Date/Time: 04/22/22 5:32 pm Reviewed By: Lauri Gonzales MD Signed By: Lauri Gonzales MD Signed Date/Time: 04/22/22 5:37 pm Transcribed By: RAVINDER Transcribed Date/Time: 04/22/22 3:49 pm * Exam Date Time Procedure Performing Provider Status 04/21/22 8:06 AM Abdomen AP Parisa Villatoro; Auth (Ve rified) Notes: (Abdomen AP) Reason For Exam: Foreign Body RESULT: XR Abdomen AP XR Abdomen AP TECHNIQUE: Supine view of the abdomen and pelvis (2 images). Reason: Foreign Body; Clinical Question(s): Foreign Body. COMPARISON: Multiple priors, including 04/20/2022. FINDINGS: Lines and tubes: None. Gas pattern: Mild stool retention but otherwise normal bowel gas pattern. No evidence of obstruction. Free air: No evidence of pneumoperitoneum. Soft tissue: Redemonstration of 2 radiopaque foreign bodies, consistent with known ingested batteries, projecting over the right lower quadrant of the abdomen. Positioning is not significantly changed from prior examinations with batteries likely remaining in the distal small bowel or cecum. Bones: No acute abnormality. Visualized lung bases: Clear. No appreciable consolidation or pleural effusion. IMPRESSION: Unchanged position of 2 ingested batteries in the right lower quadrant of the abdomen. No evidence of bowel obstruction. WSN: [id number] Ordering Physician: Petra Stock Dictated By: Vik Mcqueen MD Dictated Date/Time: 04/21/22 9:34 am Reviewed By: Vik Mcqueen MD Signed By: Vik Mcqueen MD Signed Date/Time: 04/21/22 9:34 am Transcribed By: RAVINDER Transcribed Date/Time: 04/21/22 9:26 am * Exam Date Time Procedure Performing Provider Status 04/20/22 1:57 PM Abdomen AP Lucinda Ramos (Verif ied) Notes: (Abdomen AP) Reason For Exam: Foreign Body RESULT: XR Abdomen AP XR Abdomen AP 1 view INDICATION/CLINICAL QUESTION: Reason: Foreign Body; Clinical Question(s): Foreign Body COMPARISON: CT abdomen pelvis 04/19/2022 and multiple priors. FINDINGS: Radiopaque structures corresponding to known swallowed batteries are seen projecting over the rightlower quadrant similar to most recent CT and are likely within the ascending colon. No evidence of pneumoperitoneum. No acute bone findings. Clear lung bases. IMPRESSION: Unchanged position of swallowed batteries likely within the descending colon. No evidence of complications on current study. Results were conveyed via Cortext by Dr. Ivory Sparks to Petra Stock MD on 04/20/2022 at 4:01 PM, with understanding acknowledged. I have personally reviewed the images and I agree with this report. WSN: [id number] Ordering Physician: Petra Stock Dictated By: Ivory Sparks MD Dictated Date/Time: 04/20/22 4:06 pm Reviewed By: Noam Muñoz MD Signed By: Noam Muñoz MD Signed Date/Time: 04/20/22 4:11 pm Transcribed By: RAVINDER Transcribed Date/Time: 04/20/22 4:01 pm * Exam Date Time Procedure Performing Provider Status 04/19/22 10:[address] Chest W/O Contrast Ebenezer Valladares T ; Auth (Verified) Notes: (CT Chest W/O Contrast) Reason For Exam: cough, LLL nodular airspace disease on CT abd;Other: RESULT: CT Chest W/O Contrast CT Chest W/O Contrast INDICATION: Reason: Other:; cough, LLL nodular airspace disease on CT abd; Clinical Question(s): Other: TECHNIQUE: Helical CT scan of the chest without IV contrast, formatted in 3 planes. Weight-based protocol was performed using automatic exposure control. CTDIvol Body: 18.25 mGy, DLP Body: 584 mGy*cm. COMPARISON: CT chest with contrast 04/06/2020. Correlation with CT abdomen pelvis 04/19/2022. FINDINGS: Supervisor Accounting Clerks view findings, lines and tubes: None. Trachea and airways: Patent without evidence of tracheal or endobronchial lesion. Lungs and pleura: There are patchy consolidative opacities in both lungs in the somewhat centrilobular distribution most dense in the posterior aspect of the right upper lobe and superior segment of the right lower lobe. Scattered additional patchy groundglass opacities involving the left lower lobe. Right middle lobe, left upper lobe and lingula are clear. Punctate calcified granuloma in the lateral left upper lobe (34/3). No effusion or pneumothorax. Mediastinum and concepción: No mass or hematoma. Assessment and mediastinal lymph nodes somewhat irregular and likely IV contrast. Mediastinal lymph nodes appear to be increase in number and mildly prominent and are most likely reactive, for example 0.9 cm right paratracheal node (30/2). Ill-defined hazyopacity in the anterior mediastinum most likely corresponds to thymic tissue, possibly related to hyperplasia. No nodular soft tissue component. Patulous distal esophagus. Heart: Heart is normal in size. No pericardial effusion. Aorta: No aortic aneurysm. Pulmonary arteries: Normal caliber. Chest wall soft tissues: No acute abnormality. Diaphragm: Intact. Upper abdomen: No significant abnormality. Bones: No acute abnormality. IMPRESSION: 1. Multifocal patchy consolidative opacities most prominent in the posterior right upper lobe but also involving the superior segment of the right lower lobe and to a lesser extent the basilar segments of the left lower lobe. The appearance is suspicious for multifocal pneumonia 2. Mediastinal lymph nodes are mildly increased in size and number and are most likely reactive. A similar preliminary report was provided by [facility]. WSN: [id number] Ordering Physician: Faraz Mckinley Dictated By: Lauri Gonzales MD Dictated Date/Time: 04/20/22 8:45 am Reviewed By: Lauri Gonzales MD Signed By: Lauri Gonzales MD Signed Date/Time: 04/20/22 8:45 am Transcribed By: RAVINDER Transcribed Date/Time: 04/20/22 8:30 am * Exam Date Time Procedure Performing Provider Status 04/19/22 5:[address] Abdomen and Pelvi s W/O Contrast Xiao Oakley; Cass (Verified) Notes: (CT Abdomen and Pelvis W/O Contrast) Reason For Exam: swallowed FB. fever. pain;Pain RESULT: CT Abdomen and Pelvis W/O Contrast CT Abdomen and Pelvis W/O Contrast Hx of Present Illness: Swallowed 2 batteries (AA) approx 12 days ago while in residential. Recently released on . States, 'I did that because I wanted to get out of solitary confinment. . Denies SI HI.; Reason: Pain; swallowed FB. fever. pain; Clinical Question(s): Bowel Perforation TECHNIQUE: Spiral CT through the abdomen and pelvis without IV contrast formatted in 3 planes. Thisstudy was performed without oral contrast. Weight- based protocol using automatic tube modulation was used to optimize exposure parameters. CTDIvol Body: 23.99 mGy, DLP Body: 1295 mGy*cm. COMPARISON: Plain film to 08/01/2022. CT 04/06/2020 FINDINGS: Ingested batteries likely are within terminal ileum or cecum within the right lower quadrant of theabdomen. No evidence of pneumoperitoneum. Trace pericardial effusion. 2.6 cm focus of nodular airspace disease within the left lower lobe. Small centrilobular nodules in the left lower lobe. Largest right inguinal lymph node measures 1.8 cm in short axis. Largest left inguinal lymph node measures 1.3 cm in short axis. 1.2 cm left common iliac chain lymph node increased slightly from 0.8 cm. Additional subcentimeter bilateral iliac chain lymph nodes have increased slightly in size since the previous exam. Small fat-containing ventral hernia with postsurgical changes noted in the anterior abdominal wall from prior large ventral hernia repair. Subcutaneous soft tissue densities and a few locules of gas the anterior abdominal wall are likely due to subcutaneous injections Bilateral femoral head AVN hasn't changed IMPRESSION: Ingested batteries within the right lower quadrant may be within terminal ileum or cecum. No evidence of small bowel obstruction. No evidence of pneumoperitoneum. Borderline-enlarged retroperitoneal and inguinal lymph nodes have increased slightly in size since 04/06/2020. Postsurgical changes in the anterior abdominal wall status post ventral hernia repair. Small fat-containing ventral hernia is identified on this exam. Focus of nodular airspace disease in the left lower lobe. Additional mild centrilobular nodularity in the left lower lobe. Would consider chest CT to assess for any additional areas of airspace disease or centrilobular nodularity. Chest CT will also provide a baseline for any future follow-up of the aforementioned nodular airspace disease in the left lower lobe. Other stable and incidental findings outlined above A critical result message (Yellow) has been communicated via the [employer] system on 04/19/2022 7:17 PM, Message ID [id number]. WSN: [id number] Ordering Physician: Xavier Milan Dictated By: Darren Jackson MD Dictated Date/Time: 04/19/22 7:17 pm Reviewed By: Darren Jackson MD Signed By: Darren Jackson MD Signed Date/Time: 04/19/22 7:17 pm Transcribed By: RAVINDER Transcribed Date/Time: 04/19/22 7:04 pm * Exam Date Time Procedure Performing Provider Status 04/19/22 3:55 PM Nose to Rectum Forei gn Body 1 View Child Carin Nicolas; Cass (Verified) Notes: (Nose to Rectum Foreign Body 1 View Child) Reason For Exam: Foreign Body RESULT: Nose to Rectum Foreign Body 1 View Child Upright view of the chest and abdomen and pelvis dated April 19, 2022 performed at 1548 hours. Comparison chest x-rays from August 26, 2021. HISTORY: Evaluate for ingested foreign body. FINDINGS: The cardiac silhouette is within normal limits for size. Hilar and mediastinal structuresare unremarkable. There are some prominent interstitial markings noted bilaterally. No airspace consolidation or pleural effusion is demonstrated. Visualized osseous structures are unremarkable. Examination of the abdomen and pelvis shows a nonobstructed bowel gas pattern. Stool is present throughout the colon. There are 2 cylindrical radiopaque densities in the right lower quadrant which have the appearance of March. They measure up to 4.7 cm in length and 1.1 cm in diameter not accounting for geographic magnification. There is a minimal convex left lumbar scoliosis. Degenerative changes are noted in the hips. IMPRESSION: 2 foreign bodies overlying the right lower quadrant consistent with ingested batteries. Bilateral interstitial thickening in the lungs. The possibility of a viral or atypical pneumonia would be raised. These findings are new when compared with the previous study. Thank you for allowing me to participate in the care of this patient. WSN: [id number] Ordering Physician: Xavier Milan Dictated By: Stone Mclaughlin MD Dictated Date/Time: 04/19/22 4:40 pm Reviewed By: Stone Mclaughlin MD Signed By: Stone Mclaughlin MD Signed Date/Time: 04/19/22 4:40 pm Transcribed By: RAVINDER Transcribed Date/Time: 04/19/22 4:40 pm Vital Signs Most recent to oldest [Reference Range]: 1 2 3 Height 182 cm (04/22/22 1:00 PM) 182 cm (04/22/22 8:00 AM) 182 cm (04/22/22 4:39 AM) Weight 119.9 kg (04/19/22 11:15 PM) 121.2 kg (04/19/22 3:39 PM) Oxygen Saturation [94-100 %] 96 % (04/22/22 1:00 PM) 96 % (04/22/22 8:00 AM) 95 % (04/22/22 4:39 AM) Pulse Rate [55-90 bpm] 76 bpm (04/22/22 8:00 AM) 75 bpm (04/22/22 4:39 AM) 74 bpm (04/21/22 8:29 PM) Body Mass Index [18.5-24.99 kg/m2] 36.2 kg/m2 *>HHI* (04/19/22 11:15 PM) Blood Pressure [90-138/55-84 mm Hg] 105/75mm Hg (04/22/22 1:00 PM) 113/72mm Hg (04/22/22 8:00 AM) 104/66mm Hg (04/22/22 4:39 AM) Respiratory Rate [16-30 br/min] 18 br/min (04/22/22 7:26 PM) 18 br/min (04/22/22 6:26 PM) 16 br/min (04/22/22 3:21 PM) Temperature [96.8-100.4 DegF] 98.2 DegF (04/22/22 1:00 PM) 98.1 DegF (04/22/22 8:00 AM) 97.8 DegF (04/22/22 4:39 AM) Mode of Delivery (Oxygen) Room air (04/22/22 1:00 PM) Room air (04/22/22 8:00 AM) Room air (04/22/22 4:39 AM) Blood pressure sites Arm, right (04/22/22 1:00 PM) Arm, right (04/22/22 8:00 AM) Arm, left (04/22/22 4:39 AM) Temperature Route Oral (04/22/22 1:00 PM) Oral (04/22/22 8:00 AM) Oral (04/22/22 4:39 AM) Dry Weight 119.9 kg (04/19/22 11:15 PM) 121.2 kg (04/19/22 3:39 PM) Social History Social History Type [...] Code MRI Safety Implantable Status 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 [id number] Unknown [id number] 2 Unknown 03/11/21 Unknown Unknown Active GS1 History and physical note * Faraz Mckinley DO: PERFORM Event Display: History and Physical Hospital Authored Date: [id number] Patient: ??LAURI TO ? Age:??41 Years?Sex:??Male?:??1980?? History of Present Illness Mr. To is a 41-year-old gentleman with a past medical history of bipolar disorder, asthma who presents after an intentional battery ingestion. History is obtained from prior records and the patient who is a poor historian. ?? He reports swallowing 2 batteries 12 days ago while he was in residential.?? He told the ED provider that he came in today due to abdominal pain though denies any pain to me.?? He admits to cough though offers no other complaints. ?? In the ED he was febrile to 101.3.?? CT scan showed batteries within the terminal ileum/cecum.??The on-call gastroenterology fellow recommended admission here and a GI consult. Review of Systems Positive ROS are noted in??BOLD TEXT General?fatigue, weight change, fever, chills, falls HEENT?KISER, vision change, sore throat?? Pulm?cough, SOB, MAURER, wheezing CV?chest pain, palpitations, PND, orthopnea, edema GI?abd pain, nausea, vomiting, diarrhea, constipation, melena, hematochezia ?dysuria, increased frequency, hematuria, incontinence MS?back pain, joint swelling, arthralgias Neuro?syncope, dizziness, weakness, paresthesias Hematologic?bleeding tendency, easy bruising Skin?rash, lesions Psych?depression, SI/HI Objective Vital Signs?? Temperature: 98.6 DegF (04/19/22 23:15:00) Temperature Route: Oral (04/19/22 23:15:00) Pulse Rate: 89 bpm (04/19/22 20:00:00) Respiratory Rate: 18 br/min (04/19/22 23:15:00) Systolic Blood Pressure: 108 mm Hg (04/19/22 23:15:00) Diastolic Blood Pressure: 65 mm Hg (04/19/22 20:00:00) Blood pressure sites: Arm, left (04/19/22 20:00:00) Mean Arterial Pressure: 109 mm Hg (04/19/22 15:39:00) Pulse Pressure: 41 mm Hg (04/19/22 18:35:00) Oxygen Saturation: 96 % (04/19/22 23:15:00) Mode of Delivery (Oxygen): Room air (04/19/22 23:15:00) Early Warning Score: 1 (04/19/22 23:43:17) ? Intake/Output? No Data Available ? Physical Exam Constitutional: No acute distress, well-developed, moaning, rouses easily to voice, oriented x3 HEENT: Normocephalic, atraumatic, PERRLA, EOMI, oropharynx clear, moist mucus membranes Respiratory:??Bibasilar crackles, no wheeze/rhonchi Cardiac: Tachycardic, regular rhythm, +S1/S2, no murmurs/rubs, pulses palpable and equal in all extremities, edema bilaterally Gastrointestinal: +BS, non-tender to palpation, non-distended Neurologic: CNII-XII grossly intact, 5/5 strength in all extremities, sensation intact Musculoskeletal: No gross deformities, back non-tender to palpation Skin: Ecchymosis and skin tear to the left lower extremity Psych: Mood appropriate to situation Assessment/Plan Assessment:??Mr. To is a 41-year-old gentleman with a past medical history of bipolar disorder, asthma who presents after an intentional battery ingestion ?? Foreign body ingestion (T18.9XXA):??two AA batteries ingested twelve days prior, currently at the??terminal ileum/cecum.??He is not tender on exam??for me??and there is no evidence of perforation. The gastroenterology fellow recommended a regular diet??which may help the batteries pass.??He did not recommend starting??a bowel prep at this time. -GI consult ?? Sepsis (A41.9):??He meets SIRS criteria with fever, tachycardia, tachypnea. CT chest shows opacities in the bilateral lower lobes as well as the right upper lobe. Lactate is normal. He is hemodynamically stable with warm extremities. -Draw blood cultures now -Start ceftriaxone, doxycycline -Check strep/Legionella urinary antigens ?? History of COVID-19 (Z86.16):??Positive test on 03/08. Was positive again today in the ED. He does report a cough and sore throat. -COVID antigen test now. Given his cough and sore throat he will remain on isolation until we get this result back ?? Asthma (J45.909):??Albuterol as needed. Breo Ellipta in place of his home [place] ?? Bipolar disorder with depression (F31.30):??. ?? Generalized anxiety disorder (F41.1):? Continue aripiprazole, divalproex, benztropine, buspirone, alprazolam, escitalopram, clonidine, chlorpromazine ?? Hypothyroidism (E03.9):??Continue levothyroxine ?? VTE Prophylaxis:??Moderate risk, heparin ?VTE Prophylaxis Assessment:??VTE Prophylaxis Ordered ?? Code Status:??Full code ?Order Code Status:??Code Status Ordered ?? Patient evaluated on 04/19/2022 ?? Histories Allergies Allergies ?(Active and Proposed [...] mg oral capsule)?0.4?Milligram?1?capsule?By Mouth?Daily at bedtime ? Results Recent Labs BLOOD COUNT & DIFF WBC 5.1 k/mm3 ()?? 04/19/2022 20:44 RBC 3.59 m/mm3 (Low)?? 04/19/2022 20:44 Hgb 8.9 Gm/dL (Low)?? 04/19/2022 20:44 Hct 29.8 % (Low)?? 04/19/2022 20:44 MCV 83.0 femtoliters ()?? 04/19/2022 20:44 MCH 24.8 pg (Low)?? 04/19/2022 20:44 MCHC 29.9 g/dL (Low)?? 04/19/2022 20:44 Platelet Count 193 k/mm3 ()?? 04/19/2022 20:44 RDW-SD 56.5 femtoliters (High)?? 04/19/2022 20:44 MPV 9.3 femtoliters (Low)?? 04/19/2022 20:44 Nucleated RBC (Automated) 0.0 #/100 WBC'S ()?? 04/19/2022 20:44 Abs. NRBC 0.0 k/mm3 ()?? 04/19/2022 20:44 Abs. Neut 2.7 k/mm3 ()?? 04/19/2022 20:44 Abs. Lymph 1.4 k/mm3 ()?? 04/19/2022 20:44 Abs. Wirt 0.8 k/mm3 ()?? 04/19/2022 20:44 Abs. Eo 0.2 k/mm3 ()?? 04/19/2022 20:44 Abs. Baso 0.0 k/mm3 ()?? 04/19/2022 20:44 Neut % 53.1 % ()?? 04/19/2022 20:44 Lymph % 27.5 % ()?? 04/19/2022 20:44 Wirt % 15.0 % (High)?? 04/19/2022 20:44 Eos % 3.0 % ()?? 04/19/2022 20:44 Baso % 0.8 % ()?? 04/19/2022 20:44 Imm Gran 0.6 % ()?? 04/19/2022 20:44 Abs. Imm Gran 0.0 k/mm3 ()?? 04/19/2022 20:44 ?? CHEM GENERAL Sodium 133 mmol/L ()?? 04/19/2022 20:44 Potassium 4.2 mmol/L ()?? 04/19/2022 20:44 Chloride 98 mmol/L ()?? 04/19/2022 20:44 Bicarbonate Level 28 mmol/L ()?? 04/19/2022 20:44 Anion Gap 7 ()?? 04/19/2022 20:44 Glucose Level 97 mg/dL ()?? 04/19/2022 20:44 BUN 15 mg/dL ()?? 04/19/2022 20:44 Creatinine-Blood 0.8 mg/dL ()?? 04/19/2022 20:44 Estimated GFR Creatinine 115 ML/MIN/1.73 M2 ()?? 04/19/2022 20:44 Calcium 8.9 mg/dL ()?? 04/19/2022 20:44 Protein, Total 6.5 Gm/dL ()?? 04/19/2022 20:44 Albumin 3.8 Gm/dL ()?? 04/19/2022 20:44 AG Ratio 1.4 ()?? 04/19/2022 20:44 Alkaline Phosphatase 104 units/L ()?? 04/19/2022 20:44 AST (SGOT) 41 units/L (High)?? 04/19/2022 20:44 ALT (SGPT) 30 units/L ()?? 04/19/2022 20:44 Bilirubin, Total 0.2 mg/dL ()?? 04/19/2022 20:44 Lactate 0.9 mmol/L ()?? 04/19/2022 20:44 ?? HEME OTHER Hold Blue Top SPECIMEN DISCARDED AFTER 4 HOURS. ()?? 04/19/2022 20:44 ?? MISC. CHEMISTRY Hold Gel Top SPECIMEN DISCARDED AFTER 1 WEEK ()?? 04/19/2022 20:44 ?? TOXICOLOGY/TDM Valproic Level 76.4 mg/L ()?? 04/19/2022 20:44 ?? VIROLOGY Influenza A PCR NEGATIVE ()?? 04/19/2022 15:46 Influenza B PCR NEGATIVE ()?? 04/19/2022 15:46 RSV PCR NEGATIVE ()?? 04/19/2022 15:46 COVID-19 PCR Specimen Source NASAL ()?? 04/19/2022 15:46 COVID-19 PCR Result POSITIVE (Abnormal)?? 04/19/2022 15:46 ? Hospital Progress note * Iza Brambila: PERFORM, SIGN, VERIFY Event Display: Progress Note Hospital Authored Date: Patient: LAURI TO Age: 41 years Sex: Male : 1980 Associated Diagnoses: None Author: Iza Brambila Findings Problem Related to Alteration in Gastrointestinal : Alteration in Gastrointestinal Func/new 04/22/2022 16:00 EST Alteration in GI status Related to Other: swallowed batteries Goals & Outcomes, Gastrointestinal Nutritional intake is adequate for metabolic needs, Pt will have a bowel movement prior to discharge, Other: will pass batteries in stool Interventions, Gastrointestinal Assess/monitor abdominal girth & bowel function Goals/Interventions, Gastrointestinal Yes Gastrointestinal, Problem Start 04/20/2022 11:00 Reviewed plan with, Gastrointestinal Patient Patient Progression, Gastrointestinal Pt progressing according to plan . Alteration in Genitourinary : Alteration in Genitourinary Function/new 04/22/2022 16:00 EST Alteration in Status Related to Urinary retention Goals & Outcomes, Genitourinary Pt will maintain adequate GI function appropriate for pt, Pt will maintain adequate function appropriate for pt Interventions, Assess/monitor/maintain Genitourinary status Goals/Interventions, Genitourinary Yes Genitourinary, Problem Start 03/15/2022 6:14 Reviewed Plan with, Genitourinary Patient Patient Progression, Genitourinary Patient progressing according to plan Genitourinary, Problem Ongoing Yes . Nursing Data Vital Signs : VITAL SIGNS SECTION 04/22/2022 13:00 EST Temperature 98.2 DegF Temperature Route Oral Respiratory Rate 18 br/min Systolic Blood Pressure 105 mm Hg Diastolic Blood Pressure 75 mm Hg Blood pressure sites Arm, right Pulse Pressure 30 mm Hg Oxygen Saturation 96 % Mode of Delivery (Oxygen) Room air . Evaluation patient meets falls precautions, but is refusing alarm. pt is very impulsive, and needs constant redirection. At times yells out for pain and anxiety medications; pt receiving prn medications as prescribed. urinary catheter in place due to urinary retention. wound care completed as ordered. pt had large BM, and denies any stomach pain at this time; No batteries were visible. Fall precautions in place, call clark with in reach. hourly checks maintained. . * Amy HENDERSON, [place]vil: PERFORM, MODIFY Event Display: Progress Note Hospital Authored Date: Patient: ??LAURI TO ? Age:??41 Years?Sex:??Male?:??1980?? Subjective Patient continues to complain of abdominal pain,??he had an abdominal x-ray done this morning??which showed??batteries to be in the similar position as yesterday??however after the x-ray patient did have??a large bowel movement. Review of Systems Constitutional: No fever, chills, weakness or headache Respiratory: No shortness of breath, cough or sputum production. Cardiovascular: No chest pain, chest pressure or chest discomfort. No palpitations or pedal edema. Gastrointestinal:??Complains of abdominal pain Objective Vital Signs?? Temperature: 98.2 DegF (04/22/22 13:00:00) Temperature Route: Oral (04/22/22 13:00:00) Pulse Rate: 76 bpm (04/22/22 08:00:00) Respiratory Rate: 18 br/min (04/22/22 14:21:00) Systolic Blood Pressure: 105 mm Hg (04/22/22 13:00:00) Diastolic Blood Pressure: 75 mm Hg (04/22/22 13:00:00) Blood pressure sites: Arm, right (04/22/22 13:00:00) Mean Arterial Pressure: 79 mm Hg (04/22/22 04:39:00) Pulse Pressure: 30 mm Hg (04/22/22 13:00:00) Oxygen Saturation: 96 % (04/22/22 13:00:00) Mode of Delivery (Oxygen): Room air (04/22/22 13:00:00) Early Warning Score: 0 (04/22/22 14:22:43) ? Intake/Output? 04/19 15:11 04/22 07:00 02 07:00 02 07:00 02 07:00 ?? 04/22 15:21 04/22 15:21 04/22 06:59 07 06:59 04/20 06:59 Intake ? 4620 ?960 ?480 ? 2700 ?480 Output ? 9810 ?400 ? 4150 ? 4100 ? 1160 Net Total ?-5190 ?560 ?-3670 ?-1400 ? -680 ? Urine Count ?2 ?0 ?0 ?2 ?0 ? Therapeutic Activity Therapeutic Activities/Mobility/Balance?? No qualifying data available. ? Physical Exam Constitutional: Alert, in no distress. Oriented??x3 Respiratory: Clear to auscultation. No wheezing, rales or rhonchi. Cardiovascular: S1 S2 regular. No murmurs,??no pitting edema Gastrointestinal: Abdomen soft, generalized tenderness upon palpation, non- distended. Normal bowel sounds. Neurologic: Moving all extremities Psychiatric: Agitated/angry at times _ Inpatient Medications Medications (27) Active SCHEDULED: (21) Aripiprazole 15 mg Tablet (ARIPiprazole 15 mg oral tablet) ??30 mg, By Mouth, Daily Benztropine 1 mg Tablet (benztropine 1 mg oral tablet) ??1 mg, By Mouth, Daily Bethanechol 25 mg Tablet (bethanechol 25 mg oral tablet) ??50 mg, By Mouth, 4 times a day Bisacodyl 5 mg EC Tablet (Bisacodyl Tablet) ??10 mg, By Mouth, Daily at bedtime Breo Ellipta 200 mcg / 25 mcg Inhaler (Breo Ellipta 200 mcg-25 mcg Inhaler) ??1 puffs, Inhalation, Daily BusPIRone 10 mg Tablet (busPIRone 10 mg oral tablet) ??15 mg, By Mouth, 3 times a day Carisoprodol 350 mg Tablet (carisoprodol 350 mg oral tablet) ??350 mg, By Mouth, 3 times a day Cefpodoxime 100 mg Tablet (Cefpodoxime Tablet) ??100 mg, By Mouth, Every 12 hours ChlorproMAZINE 25 mg Tablet (chlorproMAZINE 25 mg oral tablet) ??25 mg, By Mouth, 2 times a day Clonidine 0.1 mg Tablet (cloNIDine 0.1 mg oral tablet) ??0.2 mg, By Mouth, 2 times a day Divalproex 250 mg Tablet (Depakote Tablet) ??500 mg, By Mouth, Daily Divalproex 250 mg Tablet (Depakote Tablet) ??1,000 mg, By Mouth, Daily at bedtime Doxycycline 100 mg Tablet (Doxycycline Tablet) ??100 mg, By Mouth, Every 12 hours Escitalopram 10 mg Tablet (escitalopram 10 mg oral tablet) ??10 mg, By Mouth, Daily Levothyroxine 25 mcg Tablet (levothyroxine 0.025 mg oral tablet) ??50 mcg, By Mouth, Daily Montelukast 10 mg Tablet (Singulair 10 mg oral tablet) ??10 mg, By Mouth, Daily Pantoprazole 40 mg EC Tablet (pantoprazole 40 mg oral delayed release tablet) ??40 mg, By Mouth, Daily Polyethylene Glycol 17 Gm Powder (MiraLax Powder) ??17 Gm 1 pack/packet, By Mouth, 2 times a day Pregabalin 50 mg Capsule (pregabalin 50 mg oral capsule) ??200 mg, By Mouth, 2 times a day Senna 8.6 mg / Docusate 50 mg tablet (Docusate/Senna Tablet) ??2 tablet, By Mouth, 2 times a day Tamsulosin 0.4 mg Capsule (tamsulosin 0.4 mg oral capsule) ??0.4 mg, By Mouth, Daily at bedtime CONTINUOUS: (0) PRN: (6) Acetaminophen 300 mg/Codeine 30 mg Tablet (Codeine 30mg/Acetaminophen 300mg Tablet) ??2 tablet, By Mouth, Every 4 hours Albuterol 90mcg/Inhalation Inhaler HFA (albuterol CFC free 90 mcg/inh inhalation aerosol) ??180 mcg2 puffs, Inhalation, Every 4 hours Alprazolam 0.5 mg Tablet (ALPRAZolam 0.5 mg oral tablet) ??1 mg, By Mouth, 3 times a day Calcium Carbonate 500 mg (Calcium 200 mg) Chewable Tablet (Tums 500 mg oral tablet, chewable) ??1,000 mg 2 tablet, Chew, Every 4 hours Melatonin 3 mg Tablet (Melatonin Tablet) ??3 mg, By Mouth, Daily at bedtime Ondansetron 2mg/mL Inj (2mL Vial) (Zofran Inj) ??4 mg, IV Push, Every 6 hours ? 72 Hour Antibiotic History Active Antibiotics Calendar Day Last Administered First Administered Doxycycline??100 mg, By Mouth, Every 12 hours ?3 04/22/2022 11:47 04/20/2022 11:54 Cefpodoxime??100 mg, By Mouth, Every 12 hours ?3 04/22/2022 11:47 04/20/2022 11:54 ? Stopped Antibiotics Stop Date/Time Last Administered First Administered Doxycycline??100 mg, 100 mL/hr, IVPB, Every 12 hours 04/20/2022 11:30 04/20/2022 01:50 04/20/2022 01:50 ? Results Recent Labs BLOOD BANK Blood Type O Positive ()?? 04/21/2022 10:29 Antibody Screen Negative ()?? 04/21/2022 10:29 ?? BLOOD COUNT & DIFF WBC 4.3 k/mm3 ()?? 04/22/2022 06:02 RBC 3.61 m/mm3 (Low)?? 04/22/2022 06:02 Hgb 9.0 Gm/dL (Low)?? 04/22/2022 06:02 Hct 29.9 % (Low)?? 04/22/2022 06:02 MCV 82.8 femtoliters ()?? 04/22/2022 06:02 MCH 24.9 pg (Low)?? 04/22/2022 06:02 MCHC 30.1 g/dL (Low)?? 04/22/2022 06:02 Platelet Count 179 k/mm3 ()?? 04/22/2022 06:02 RDW-SD 56.0 femtoliters (High)?? 04/22/2022 06:02 MPV 9.5 femtoliters ()?? 04/22/2022 06:02 Nucleated RBC (Automated) 0.0 #/100 WBC'S ()?? 04/22/2022 06:02 Abs. NRBC 0.0 k/mm3 ()?? 04/22/2022 06:02 ?? CHEM GENERAL Sodium 138 mmol/L ()?? 04/22/2022 06:02 Potassium 4.4 mmol/L ()?? 04/22/2022 06:02 Chloride 101 mmol/L ()?? 04/22/2022 06:02 Bicarbonate Level 29 mmol/L ()?? 04/22/2022 06:02 Anion Gap 8 ()?? 04/22/2022 06:02 Creatinine-Blood 0.6 mg/dL (Low)?? 04/22/2022 06:02 Estimated GFR Creatinine 126 ML/MIN/1.73 M2 ()?? 04/22/2022 06:02 ?? COAG INR 1.1 ()?? 04/21/2022 11:12 Protime (PT) 11.0 seconds ()?? 04/21/2022 11:12 ?? MISC. CHEMISTRY Hold Green Top SPECIMEN DISCARDED AFTER 1 WEEK ()?? 04/21/2022 11:12 ? Assessment/Plan Assessment:??Mr. To is a 41-year-old gentleman with a past medical history of bipolar disorder, asthma , incarcerated 12 days ago, who presents after an intentional battery ingestion, as well as sepsis 2/2 multifocal pneumonia and LE cellulitis. Complicated by open wound of right lower leg and self administered ingestion of his own alprazolam. ? Foreign body ingestion (T18.9XXA): two AA batteries ingested twelve days prior, currently at the terminal ileum/cecum, however patient did have large BM after todays??xray. Will obtain another??xray today after the BM ??-GI consult: No intervention at this moment ??-Surgery (Dr Call) and GI (Dr Jimenez) aware ??-Daily abdominal xrays ??-Docusate/senna bid, miralax bid, bisacodyl daily. Consider adding more if unable to pass batteries ??-May need colonoscopy for retrieval in few days (per Dr. Jimenez on 04/21), will need to touch basewith GI on??tomorrow if unable to pass batteries ?? Open wound of right lower leg (S81.801A): ??Patient has chronic wounds on right lower leg of various healing stages. He has tendency to pick at the scabs. On 04/21 after picking a scab, blood spurted out ,about 100-200cc. Pressure dressing applied with tamponade. ??- Dr. Call evaluated and recommended Telfa wound dressing. ??- Educated to not pick wounds on leg ??- H/H stable afterwards, trend daily ??- Holding dvt ppx heparin for now ?? Accidental alprazolam poisoning (T42.4X1A): . ??Patient was prescribed alprazolam 1mg tid prn for anxiety on 04/17/2022 - 18 tablets. Morning of 04/21, RN witnessed patient pouring bottle of alprazolam into mouth. Unknown how many patient ingested. He states he only took 1/2 a pill by taking out of bottle. Details are inconsistent. Unclear how many pills he took. Security called and removed alprazolam bottle, e-cigarette, and cigarettes. ?? Sepsis (A41.9) secondary to multifocal pneumonia and cellulitis of lower extremities, left > right ??He meets SIRS criteria with fever, tachycardia, tachypnea. No o2 needed. New symptoms of cough. COVID Ag negative. CT chest shows multifocal pneumonia. Lactate is normal. Lower extremity pain, swelling and erythema that is chronic. Unclear if these symptoms are worsening. -Pending blood cultures now ??-Pending strep/Legionella urinary antigens ??-Cont cefpodoxime and doxycycline (high risk of MRSA given recent incarceration) 04/20 - x 7 days ??-Pain control: morphine iv prn, tylenol codeine 2 tabs q4 h prn ?? Urinary retention - Historoy of urinary retention on Bethanechol and Flomax,??High PVRs, mccullough was??inserted couple of days ago. Will plan for voiding trial tomorrow. Increased bethanechol to 50mg QID ? History of COVID-19 (Z86.16): Positive test on 03/08. Was positive again today in the ED. He does report a cough and sore throat. ??-COVID antigen test negative ? Asthma (J45.909): Albuterol as needed. Breo Ellipta in place of his home [place] ? Bipolar disorder with depression (F31.30): . Generalized anxiety disorder (F41.1): Chronic pain ??Continue aripiprazole, divalproex, benztropine, buspirone, alprazolam, escitalopram, clonidine, chlorpromazin ??Robaxin not on formulary ? Hypothyroidism (E03.9): Continue levothyroxine ? VTE Prophylaxis: Holding heparin for now given recent open wound ? VTE Prophylaxis Assessment: VTE Prophylaxis Ordered ? Code Status: Full code ? Order Code Status: Code Status Ordered ? OMN: passing of batteries in stool and pain control, LE wound surgery f/up ?? Dispo: Home when ready * Trinity Mcnally RN: PERFORM, SIGN, VERIFY Event Display: Progress Note Hospital Authored Date: Patient: LAURI TO Age: 41 years Sex: Male : 1980 Associated Diagnoses: None Author: Trinity Mcnally RN Findings Problem Related to Alteration in Gastrointestinal : Alteration in Gastrointestinal Func/new 04/22/2022 2:00 EST Alteration in GI status Related to Other: swallowed batteries Goals & Outcomes, Gastrointestinal Nutritional intake is adequate for metabolic needs, Pt will have a bowel movement prior to discharge, Other: will pass batteries in stool Interventions, Gastrointestinal Assess/monitor bowel pattern, bowel sounds, flatus, Assess/monitor number of bowel movements, Assess/monitor color, quantity, quality, consistency of stoo Goals/Interventions, Gastrointestinal Yes Gastrointestinal, Problem Start 04/20/2022 11:00 Reviewed plan with, Gastrointestinal Patient Patient Progression, Gastrointestinal Pt progressing according to plan . Alteration in Genitourinary : Alteration in Genitourinary Function/new 04/22/2022 2:00 EST Alteration in Status Related to Urinary retention Goals & Outcomes, Genitourinary Pt will maintain adequate GI function appropriate for pt, Pt will maintain adequate function appropriate for pt Interventions, Assess/monitor/maintain Genitourinary status, Assist & encourage pt with meticulous bruce care Goals/Interventions, Genitourinary Yes Genitourinary, Problem Start 03/15/2022 6:14 Reviewed Plan with, Genitourinary Patient Patient Progression, Genitourinary Patient progressing according to plan Genitourinary, Problem Ongoing Yes . Alteration in Safety : Alteration in Safety/new 04/22/2022 2:00 EST Alteration in Safety Related to Other: Fall Risk Goals & Outcomes, Safety Pt will remain safe & injury free Interventions, Safety Provide info on community resources for education, support, Provide teaching as needed Goals/Interventions, Safety Yes Safety, Problem Start 04/20/2022 4:34 Reviewed plan with, Safety Patient Patient Progression, Safety Pt progressing according to plan . Evaluation Patient is alert to self and place. On room air tolerating well. Pain medications given q 4 hours for pain. Patient is seeking for pain medications and Xanax. Reoriented to when medications are due. Patient is OOB with assist. Takes pills whole with water tolerates diet well. Content of bowel and bladder, Mccullough Cather in place for retention. Bowel regime ordered to increase BM to get rid of toxicingestion. RT briceño skin tear dressing in place, lower extremity cellulitis and scabs. Security called due to patient calling the police station,patient reoriented and discussion of plan. safety maintained. . Note * Trinity Mcnally RN: PERFORM Event Display: Discharge/Transfer Note Hospital Authored Date: Nursing Discharge Note Entered On: 04/22/2022 20:06 EST Performed On: 04/22/2022 20:04 EST by Trinity Mcnally RN Nursing Discharge Note 2 Discharge Time : 04/22/2022 19:45 EST Discharge Level of Care at Discharge : Left Against Medical Advice Driver Messenger Utilized : No AMA Form Signed : Yes Patient Left Unit Via : Other: self walked Patient Accompanied Off Unit with : Other: self DC Instructions Provided & Signed by Pt : Yes Patient Understands D/C Instructions : Yes Patient Instructions Discharge Signed : No Instructions for Discharge Comments : left AMAS Did Pt have Specialty Bed or Wound Vac : No Status of Unresolved Issues : leftr AMA, swallowed battery, did not follow POC, patient left with unresolved issues Trinity Mcnally RN - 04/22/2022 20:04 EST * [place] BURNHAM, Alex David: PERFORM Event Display: Discharge/Transfer Note Hospital Authored Date: Patient: ??LAURI TO ? Age:??41 Years?Sex:??Male?:??1980?? Was informed at approximately 19:20 that the patient was attempting to leave AGAINST MEDICAL ADVICE. ?? Upon entering the room the patient states he has already called an uber and there is nothing we merced to change his mind. ??He is calm, overall cooperative??during the encounter but states he must go as??he does not like this hospital, is not getting good vibes .?? Also states members of the commu [place] know he is here that are attempting to currently castrate him??for??things he has done in the past. ?? The patient acknowledges??that he will be leaving AGAINST MEDICAL ADVICE??and all of the risks and possible adverse side effects??that may come from??choosing to leave??including but not limited to??worsening pneumonia/sepsis, bowel perforation, .?? The patient has signed an AMA form??which has been placed into the patient's chart. ?? Discharge diagnoses: Foreign body ingestion Sepsis secondary to multifocal pneumonia and cellulitis of lower extremities Urinary retention Accidental alprazolam poisoning * TAVARES Aparicio S: JASMIN Mclaughlin MD, Stone Porter: VERIFY Event Display: Result: Authored Date: [id number] Upright view of the chest and abdomen and pelvis dated April 19, 2022 performed at 1548 hours. Comparison chest x-rays from August 26, 2021. HISTORY: Evaluate for ingested foreign body. FINDINGS: The cardiac silhouette is within normal limits for size. Hilar and mediastinal structuresare unremarkable. There are some prominent interstitial markings noted bilaterally. No airspace consolidation or pleural effusion is demonstrated. Visualized osseous structures are unremarkable. Examination of the abdomen and pelvis shows a nonobstructed bowel gas pattern. Stool is present throughout the colon. There are 2 cylindrical radiopaque densities in the right lower quadrant which have the appearance of March. They measure up to 4.7 cm in length and 1.1 cm in diameter not accounting for geographic magnification. There is a minimal convex left lumbar scoliosis. Degenerative changes are noted in the hips. IMPRESSION: 2 foreign bodies overlying the right lower quadrant consistent with ingested batteries. Bilateral interstitial thickening in the lungs. The possibility of a viral or atypical pneumonia would be raised. These findings are new when compared with the previous study. Thank you for allowing me to participate in the care of this patient. WSN: [id number] Ordering Physician: Xavier Milan Dictated By: Stone Mclaughlin MD Dictated Date/Time: 04/19/22 4:40 pm Reviewed By: Stone Mclaughlin MD Signed By: Stone Mclaughlin MD Signed Date/Time: 04/19/22 4:40 pm Transcribed By: RAVINDER Transcribed Date/Time: 04/19/22 4:40 pm XR Abdomen AP * TAVARES Aparicio S: Stone Diallo MD: Ivory Toussaint MD: SIGN Event Display: Result: Authored Date: [id number] XR Abdomen AP 1 view INDICATION/CLINICAL QUESTION: Foreign Body COMPARISON: 04/22/2022 at 8:58 AM a multiple priors. FINDINGS: Unchanged position of urinary catheter and right lower quadrant ingested batteries likely residing within the ascending colon. Moderate stool retention but otherwise normal bowel gas pattern. No evidence of obstruction. No evidence of pneumoperitoneum within limits of a small [id number]. No organomegaly, masses or calcifications. No acute bone findings. IMPRESSION: No significant change in right lower quadrant ingested batteries likely residing within the ascending colon. Moderate colonic stool burden. Results were conveyed via Cortext by Dr. Ivory Sparks to Mary Reyes on 04/22/2022 at 3:54 PM. I have personally reviewed the images and I agree with this report. WSN: [id number] Ordering Physician: Mary Reyes Dictated By: Ivory Sparks MD Dictated Date/Time: 04/22/22 3:58 pm Reviewed By: Stone Mclaughlin MD Signed By: Stone Mclaughlin MD Signed Date/Time: 04/22/22 4:03 pm Transcribed By: RAVINDER Transcribed Date/Time: 04/22/22 3:54 pm * TAVARES Aparicio S: Lauri Ortega MD: Ivory Toussaint MD: SIGN Event Display: Result: Authored Date: [id number] XR Abdomen AP 1 view INDICATION/CLINICAL QUESTION: Reason: Foreign Body- Batteries; Clinical Question(s): Foreign Body COMPARISON: 04/21/2022 and multiple priors. FINDINGS: Partially visualized urinary catheter. No significant change in right lower quadrant radiopacities corresponding to known ingested batteries. Moderate stool retention but otherwise normal bowel gas pattern. No evidence of obstruction. No evidence of pneumoperitoneum. No organomegaly, masses or calcifications. No acute bone findings. Clear lung bases. IMPRESSION: No significant change in right lower quadrant known ingested batteries likely residing in the ascending colon. Moderate stool retention. I have personally reviewed the images and I agree with this report. WSN: [id number] Ordering Physician: Mary Reyes Dictated By: Ivory Sparks MD Dictated Date/Time: 04/22/22 5:32 pm Reviewed By: Lauri Gonzales MD Signed By: Lauri Gonzales MD Signed Date/Time: 04/22/22 5:37 pm Transcribed By: RAVINDER Transcribed Date/Time: 04/22/22 3:49 pm * Alessandra , CIS S: TRANSCRIVik Daivd MD: VERIFY Event Display: Result: Authored Date: [id number] XR Abdomen AP TECHNIQUE: Supine view of the abdomen and pelvis (2 images). Reason: Foreign Body; Clinical Question(s): Foreign Body. COMPARISON: Multiple priors, including 04/20/2022. FINDINGS: Lines and tubes: None. Gas pattern: Mild stool retention but otherwise normal bowel gas pattern. No evidence of obstruction. Free air: No evidence of pneumoperitoneum. Soft tissue: Redemonstration of 2 radiopaque foreign bodies, consistent with known ingested batteries, projecting over the right lower quadrant of the abdomen. Positioning is not significantly changed from prior examinations with batteries likely remaining in the distal small bowel or cecum. Bones: No acute abnormality. Visualized lung bases: Clear. No appreciable consolidation or pleural effusion. IMPRESSION: Unchanged position of 2 ingested batteries in the right lower quadrant of the abdomen. No evidence of bowel obstruction. WSN: [id number] Ordering Physician: Petra Stock Dictated By: Vik Mcqueen MD Dictated Date/Time: 04/21/22 9:34 am Reviewed By: Vik Mcqueen MD Signed By: Vik Mcqueen MD Signed Date/Time: 04/21/22 9:34 am Transcribed By: RAVINDER Transcribed Date/Time: 04/21/22 9:26 am * Alessandra , CIS S: TRANSCRINoam Mercado MD: VERIFY Ivory Sparks MD: SIGN Event Display: Result: Authored Date: [id number] XR Abdomen AP 1 view INDICATION/CLINICAL QUESTION: Reason: Foreign Body; Clinical Question(s): Foreign Body COMPARISON: CT abdomen pelvis 04/19/2022 and multiple priors. FINDINGS: Radiopaque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
--- OUTSIDE RECORDS SUMMARY | 2022-10-14 11:50 | XMS_ITS | Continuity of Care Document ---
Author Name Unknown Organization [facility] Address [address] [place] [address]- Care Team Providers Care Travel Coordinator Name Role Phone Soto RAMIREZ MD, Bal Serrano Primary Care Physician ( [phone] Encounter [facility] Date(s): 04/21/20 - 04/21/[address] [address]- Discharge Disposition: A-D/C Walkout Attending Physician: Hieu Medel MD Admitting Physician: [...] 04/18/20 14:17:00 EST, Route to Pharmacy Electronically, [facility] #[id number] Tablet, Partial fill upon patient request if the prescription... Start Date: 04/18/20 Status: Ordered albuterol CFC free 90 mcg/inh inhalation aerosol 2, puffs, Inhalation, Every 4 hours, PRN, # 18 Gm, Refills 3, Tot. Refills 3, Maintenance, 02/13/1911:48:23 EST, Aerosol, Route to Pharmacy Electronically, [id number], [facility]/pharmacy #[id number] Start Date: 02/13/19 Status: Ordered Ambien 10 mg oral tablet 1 tablet = 10 mg, By Mouth, Daily at bedtime, PRN for sleep, for 14 days, # 14 tablet, 0 Refills, Acute 04/28/20 12:38:00 EST, 04/14/20 12:38:00 EST, Tablet, [facility] #[id number], Partial fillupon patient request if the prescription is for a s... Start Date: 04/14/20 Stop Date: 04/28/20 Status: Ordered amitriptyline 100 mg oral tablet 1 tablet = 100 mg, By Mouth, Daily at bedtime, # 7 tablet, 3 Refills, Maintenance, 04/15/20 10:15:00 EST, Tablet, [facility] #[id number], Partial fill upon patient request if the prescription isfor a schedule II opioid drug., 183, cm, 04/15/20 0... Start Date: 04/15/20 Stop Date: 05/13/20 Status: Ordered amitriptyline 25 mg oral tablet 75 mg, 3, tablet, By Mouth, Daily, # 21 tablet, Refills 3, Tot. Refills 3, Maintenance, 04/13/20 14:55:00 EST, Route to Pharmacy Electronically, [facility] #[id number], Partial fill upon patientrequest if the prescription is for a schedule II op... Start Date: 04/13/20 Stop Date: 05/11/20 Status: Ordered Ativan 1 mg oral tablet 1.5 tablet = 1.5 mg, By Mouth, 2 times a day, PRN as needed for anxiety, for 14 days, # 30 tablet, 1 Refills, Acute 05/11/20 14:57:00 EST, 04/13/20 14:57:00 EST, Tablet, [facility] #[id number], Partial fill upon patient request if the prescriptio... Start Date: 04/13/20 Stop Date: 05/11/20 Status: Ordered baclofen 10 mg oral tablet 20 mg, 2, tablet, By Mouth, 2 times a day, # 56 tablet, Refills 1, Tot. Refills 1, Maintenance, 04/13/20 14:54:00 EST, Route to Pharmacy Electronically, [facility] #[id number], Partial fill uponpatient request if the prescription is for a schedu... Start Date: 04/13/20 Stop Date: 05/11/20 Status: Ordered busPIRone 15 mg oral tablet 1 tablet = 15 mg, By Mouth, 3 times a day, # 42 tablet, 1 Refills, Maintenance, 04/13/20 14:56:00 EST, Tablet, [facility] #[id number], Partial fill upon patient request if the prescription is for a schedule II opioid drug., 183, cm, 04/13/20 9:04... Start Date: 04/13/20 Stop Date: 05/11/20 Status: Ordered fluticasone 50 mcg/inh nasal spray 2 sprays, Nares, Both, 2 times a day, # 9.9 mL, 0 Refills, Maintenance, 11/15/18 14:21:09 EDT, [place], 2 sprays Nares, Both 2 times a day Start Date: 11/15/18 Status: Ordered levothyroxine 0.05 mg oral tablet 1 tablet = 50 mcg, By Mouth, Daily, # 14 tablet, 1 Refills, Maintenance, 04/15/20 10:10:00 EST, Tablet, [facility] #[id number], Partial fill upon patient request if the [...] 10/11/20 12:36:00 EDT, 04/14/20 12:36:00 EST, Patch, [facility] #[id number], Partial fillupon patient request if the prescription is for a s... Start Date: 04/14/20 Stop Date: 10/11/20 Status: Ordered propranolol 40 mg oral tablet 40 mg, 1, tablet, By Mouth, 2 times a day, # 28 tablet, Refills 1, Tot. Refills 1, Maintenance, 04/13/20 14:56:00 EST, Route to Pharmacy Electronically, [facility] #[id number], Partial fill uponpatient request if the prescription [...] 04/13/20 14:57:00 EST, Route to Pharmacy Electronically, [facility] #[id number], Partial fill upon patient request if the prescription is for a schedul... Start Date: 04/13/20 Stop Date: 05/11/20 Status: Ordered topiramate 200 mg oral tablet 1 tablet = 200 mg, By Mouth, 2 times a day, # 28 tablet, 1 Refills, Maintenance, 04/13/20 14:55:00 EST, Tablet, [facility] #[id number], Partial fill upon patient request if the prescription is for a schedule II opioid drug., 183, cm, 04/13/20 9:0... Start Date: 04/13/20 Stop Date: 05/11/20 Status: Ordered Problem List Condition Effective Dates [...]
--- OUTSIDE RECORDS SUMMARY | 2022-10-14 11:50 | XMS_ITS | Continuity of Care Document ---
Author Name Unknown Organization [facility] Address [address] [place] [address]- Care Team Providers Care Photovoltaic Panel Installer Name Role Phone Soto RAMIREZ MD, Bal Serrano Primary Care Physician Encounter [facility] Date(s): 01/20/21 - 01/20/[address] [address]- Discharge Disposition: A-D/C Home Attending Physician: Xavier [...] 02/13/1911:48:23 EST, Aerosol, Route to Pharmacy Electronically, [id number], [facility]/pharmacy #[id number] Start Date: 02/13/19 Status: Ordered Ambien [...] 3 Refills, Maintenance, 04/15/20 10:15:00 EST, Tablet, [email or web address] #[id number], Partial fill upon patient request if the prescription isfor a schedule II opioid drug., 183, cm, 04/15/20 0... Start Date: 04/15/20 Stop Date: 05/13/20 Status: Ordered amitriptyline 25 mg oral tablet 75 mg, 3, tablet, By Mouth, Daily, # 21 tablet, Refills 3, Tot. Refills 3, Maintenance, 04/13/20 14:55:00 EST, Route to Pharmacy Electronically, [email or web address] #[id number], Partial fill upon patientrequest if the prescription is for a schedule II op... Start Date: 04/13/20 Stop Date: 05/11/20 Status: Ordered baclofen 10 mg oral tablet 20 mg, 2, tablet, By Mouth, 2 times a day, # 56 tablet, Refills 1, Tot. Refills 1, Maintenance, 04/13/20 14:54:00 EST, Route to Pharmacy Electronically, [email or web address] #[id number], Partial fill uponpatient request if the prescription is for a schedu... Start Date: 04/13/20 Stop Date: 05/11/20 Status: Ordered busPIRone 15 mg oral tablet 1 tablet = 15 mg, By Mouth, 3 times a day, # 42 tablet, 1 Refills, Maintenance, 04/13/20 14:56:00 EST, Tablet, [facility] #[id number], Partial fill upon patient request if the prescription is for a schedule II opioid drug., 183, cm, 04/13/20 9:04... Start Date: 04/13/20 Stop Date: 05/11/20 Status: Ordered cloNIDine 0.1 mg oral tablet 0.1 mg, 1, tablet, By Mouth, 2 times a day, # 10 tablet, Refills 0, Tot. Refills 0, Maintenance, 10/22/20 15:02:00 EDT, Route to Pharmacy Electronically, [facility] #[id number], Partial fill upon patient request if the [...] 09/13/20 14:45:00 EDT, Route to Pharmacy Electronically, [facility] #[id number], Partial fill upon patient request if the prescription is for a salima... Start Date: 09/13/20 Status: Ordered Flomax 0.4 mg oral capsule 0.4 mg, 1, capsule, By Mouth, Daily, # 30 capsule, Refills 0, Tot. Refills 0, Maintenance, 10/22/2121:52:00 EDT, Route to Pharmacy Electronically, [email or web address] #[id number], Partial fill upon patient request if the prescription is for a schedule II... Start Date: 10/22/20 Status: Ordered fluticasone 50 mcg/inh nasal spray 2 sprays, Nares, Both, 2 times a day, # 9.9 mL, 0 Refills, Maintenance, 11/15/18 14:21:09 EDT, [place], 2 sprays Nares, Both 2 times a [...] 0 Refills, Maintenance, 01/07/21 18:42:00 EDT, Tablet, [email or web address] #[id number], Partial fill upon patient request if the prescription is for a schedule II opioid drug., 183, cm, 01/07/21 17:... Start Date: 01/07/21 Status: Ordered nicotine 14 mg/24 hr transdermal film, extended release 1 patch, Topically, Daily, # 30 patch, 0 Refills, Acute 05/28/21 9:00:00 EDT, 05/28/20 15:55:00 EDT, Patch, [email or web address] #[id number], Partial fill upon patient request if the prescription is for aschedule II opioid drug., 1 patch Topically Daily,... Start Date: 05/28/20 Stop Date: 05/28/21 Status: Ordered propranolol 40 mg oral tablet 40 mg, 1, tablet, By Mouth, 2 times a day, # 28 tablet, Refills 1, Tot. Refills 1, Maintenance, 04/13/20 14:56:00 EST, Route to Pharmacy Electronically, [email or web address] #[id number], Partial fill uponpatient request if the prescription [...] 04/13/20 14:57:00 EST, Route to Pharmacy Electronically, [email or web address] #[id number], Partial fill upon patient request if the [...] 0 Refills, Maintenance, 07/27/20 19:15:00 EDT, Tablet, [facility] #[id number], Partial fill upon patient request if the prescription is for a schedule II opioid drug., 184, cm... Start Date: 07/27/20 Status: Ordered Tylenol with Codeine #3 Tablet (300mg/30mg) 2 tablet, Tablet, By Mouth, Once, Routine, 01/20/21 13:00:00 EST, Stop date 01/20/21 13:00:00 EST Start Date: 01/20/21 Stop Date: 01/20/21 Status: Completed Xanax 1 mg oral tablet 1 tablet [...] Range]: 1 2 3 Height 183 cm (01/20/21 3:44 PM) 183 cm (01/20/21 12:45 PM) Weight 147.5 kg (01/20/21 3:44 PM) 147.5 kg (01/20/21 12:45 PM) Oxygen Saturation [94-100 %] 99 % (01/20/21 3:44 PM) 98 % (01/20/21 12:45 PM) Pulse Rate [55-90 bpm] 85 bpm (01/20/21 3:44 PM) 88 bpm (01/20/21 12:45 PM) Blood Pressure [90-138/55-84 mm Hg] 138/70mm Hg (01/20/21 3:44 PM) 143/73mm Hg *H* (01/20/21 12:45 PM) Respiratory Rate [16-30 br/min] 20 br/min (01/20/21 3:44 PM) 20 br/min (01/20/21 1:12 PM) 20 br/min (01/20/21 12:45 PM) Temperature [96.8-100.4 DegF] 97.5 DegF (01/20/21 12:45 PM) Mode of Delivery (Oxygen) Room air (01/20/21 3:44 PM) Room air (01/20/21 12:45 PM) Blood pressure sites Arm, left (01/20/21 3:44 PM) Arm, left (01/20/21 12:45 PM) Temperature Route Temporal (01/20/21 12:45 PM) Dry Weight 147.5 kg (01/20/21 3:44 PM) 147.5 kg (01/20/21 12:45 PM) Weight Obtained Via Patient/family state d (01/20/21 12:45 PM) Social History Social History Type Response Tobacco Use: 1PPD. Sex Medical Equipment Implanted Date:09/13/20Target Site:Abdomen Description Quantity MRI Company Model MESH VENTRALIGHT ECHO ELLIPS 4 - BARD ([id number]) 1 Bard Unknown HAYDEE:{01}[id number] Assigning Author ity:FDA
--- OUTSIDE RECORDS SUMMARY | 2022-10-14 11:50 | XMS_ITS | Continuity of Care Document ---
Author Name Unknown Organization [facility] Address [address] [place] [address]- Care Team Providers Care Junior Staff Accountant Name Role Phone Soto RAMIRZE MD, Bal Serrano Primary Care Physician Encounter [facility] Date(s): 01/14/20 - 01/14/[address] [address]- [facility] Discharge Disposition: A-D/C Walkout Attending Physician: Hieu [...] 02/13/1911:48:23 EST, Aerosol, Route to Pharmacy Electronically, [id number], [facility] #[id number] Start Date: 02/13/19 Status: Ordered [...] mL, 0 Refills, Maintenance, 11/15/18 14:21:09 EDT, [place], 2 sprays Nares, Both 2 times a [...] recent to oldest [Reference Range]: 1 Height 182 cm (01/14/20 11:51 AM) Weight 122.2 kg (01/14/20 11:51 AM) Oxygen Saturation [94-100 %] 100 % (01/14/20 11:50 AM) Pulse Rate [55-90 bpm] 94 bpm *H* (01/14/20 11:50 AM) Blood Pressure [90-138/55-84 mm Hg] 141/ 82mm Hg *H* (01/14/20 11:50 AM) Respiratory Rate [16-30 br/min] 17 br/mi n (01/14/20 11:50 AM) Temperature [96.8-100.4 DegF] 96.9 DegF (01/14/20 11:50 AM) Temperature Route Temporal (01/14/20 11:50 AM) Dry Weight 122.2 kg (01/14/20 11:51 AM) Weight Obtained Via Standing scale (01/14/20 11:51 AM) Social History Social History Type Response Smoking Status 10 or more cigarette s (1/2 pack or more)/day in last 30 days; Tobacco user in household: No entered on: 11/15/18 Sex
--- OUTSIDE RECORDS SUMMARY | 2022-10-14 11:50 | XMS_ITS | Continuity of Care Document ---
Author Name Unknown Organization [facility] Address [address] [place] [address]- Care Team Providers Care Patient Safety Coordinator Name Role Phone Soto RAMIREZ MD, Bal Serrano Primary Care Physician ( [phone] Encounter [facility] Date(s): 05/11/22 - 05/12/[address] [address]- Discharge Disposition: A-D/C Home Attending Physician: Michael Langley MD Admitting Physician: Michael Langley MD Referring Physician: Not on Staff, Referring MD Allergies, Adverse Reactions, Alerts Substance Reaction Severity Status Zoloft Active Thorazine Active traZODone Active ZyPREXA Active Immunizations Given and Recorded Vaccine Date Status Refusal Reason tetanus/diphtheria/pertussis, acel(Tdap) 04/09/22 Recorded tetanus/diphtheria/pertussis, acel(Tdap) 05/18/18 Recorded tetanus/diphtheria/pertussis, acel(Tdap) 12/19/16 Recorded [id number] 12y+ bivalent booster vax 02/11/22 Recorded SARS-CoV-2 [...] 05/13/22 12:57:00 EST, 05/08/22 12:57:00 EST, Tablet, [facility] #[id number], Partial fill upon patient request if the prescription is... Start Date: 05/08/22 Stop Date: 05/13/22 Status: Ordered ARIPiprazole 30 mg oral tablet 1 tablet = 30 mg, By Mouth, Daily, # 14 tablet, 1 Refills, Maintenance, 05/08/22 12:50:00 EST, Tablet, [facility] #[id number], Partial fill upon patient request if the prescription is for a schedule II opioid drug., 176, cm, 05/08/22 7:19:00 EST,... Start Date: 05/08/22 Stop Date: 06/05/22 Status: Ordered benztropine 1 mg oral tablet 1 mg, 1, tablet, By Mouth, Daily, # 14 tablet, Refills 1, Tot. Refills 1, Maintenance, 05/08/22 12:50:00 EST, Route to Pharmacy Electronically, [facility] #[id number], Partial fill upon patient request if the prescription is for a schedule II opi... Start Date: 05/08/22 Stop Date: 06/05/22 Status: Ordered bethanechol 25 mg oral tablet 25 mg, 1, tablet, By Mouth, 3 times a day, # 21 tablet, Refills 0, Maintenance, 05/12/22 14:51:00 EST, Partial fill upon patient request if the prescription is for a schedule II opioid drug. Start Date: 05/12/22 Stop Date: 05/19/22 Status: Ordered busPIRone 30 mg oral tablet 1 tablet = 30 mg, By Mouth, 2 times a day, # 28 tablet, 0 Refills, Maintenance, 05/08/22 12:59:00 EST, Tablet, [facility] #[id number], Partial fill upon patient request if the prescription is for a schedule II opioid drug., 176, cm, 05/08/22 7:19... Start Date: 05/08/22 Stop Date: 05/22/22 Status: Ordered carisoprodol 350 mg oral tablet 350 mg, Tablet, By Mouth, Once, STAT, 05/11/22 21:11:00 EST, Stop date 05/11/22 21:11:00 EST Start Date: 05/11/22 Stop Date: 05/11/22 Status: Completed cephalexin monohydrate 500 mg oral capsule 1 capsule = 500 mg, By Mouth, Every 6 hours, for 5 days, # 20 capsule, 0 Refills, Acute 05/13/22 12:58:00 EST, 05/08/22 12:58:00 EST, Capsule, [facility] #[id number], Partial fill upon patient request if the prescription is for a schedule II opio... Start Date: 05/08/22 Stop Date: 05/13/22 Status: Ordered cephalexin monohydrate 500 mg oral capsule 1 capsule = 500 mg, By Mouth, 4 times a day, for 5 days, # 20 capsule, 0 Refills, Acute 05/16/22 23:21:00 EST, 05/11/22 23:21:00 EST, Capsule, [facility] #[id number], Partial fill upon patient request if the prescription is for a schedule II opio... Start Date: 05/11/22 Stop Date: 05/16/22 Status: Ordered chlorproMAZINE 100 mg oral tablet = 100 mg, By Mouth, Daily at bedtime, # 14 tablet, 0 Refills, Maintenance, 05/08/22 12:52:00 EST, Tablet, [facility] #[id number], Partial fill upon patient request if the prescription is for a schedule II opioid drug., 176, cm, 05/08/22 7:19:00 E... Start Date: 05/08/22 Stop Date: 05/22/22 Status: Ordered chlorproMAZINE 50 mg oral tablet = 50 mg, By Mouth, Daily before lunch, # 14 tablet, 0 Refills, Maintenance, 05/08/22 12:51:00 EST, Tablet, [facility] #[id number], Partial fill upon patient request if the prescription is for a schedule II opioid drug., 176, cm, 05/08/22 7:19:00... Start Date: 05/08/22 Stop Date: 05/22/22 Status: Ordered chlorproMAZINE 50 mg oral tablet 1 tablet = 50 mg, By Mouth, Daily in AM, # 180 tablet, 0 Refills, Maintenance, 05/08/22 12:53:00 EST, Tablet, [facility] #[id number], Partial fill upon patient request if the prescription is fora schedule II opioid drug., 176, cm, 05/08/22 7:19:... Start Date: 05/08/22 Status: Ordered cloNIDine 0.2 mg oral tablet 0.2 mg, 1, tablet, By Mouth, 2 times a day, # 20 tablet, Refills 2, Tot. Refills 2, Maintenance, 01/01/22 15:56:00 EDT, Route to Pharmacy Electronically, [facility] #[id number], Partial fill upon patient request if the prescription is for a sched... Start Date: 01/01/22 Stop Date: 01/31/22 Status: Ordered Codeine 30mg/Acetaminophen 300mg Tablet 1 tablet, Tablet, By Mouth, Once, STAT, 05/11/22 21:10:00 EST, Stop date 05/11/22 21:10:00 EST Start Date: 05/11/22 Stop Date: 05/11/22 Status: Completed divalproex sodium 500 mg oral enteric coated tablet 1 tablet = 500 mg, By Mouth, Daily in AM, # 14 tablet, 0 Refills, Maintenance, 05/08/22 12:49:00 EST, Tablet, [facility] #[id number], Partial fill upon patient request if the prescription is fora schedule II opioid drug., 176, yolanda, 05/08/22 7:19:... Start Date: 05/08/22 Stop Date: 05/22/22 Status: Ordered divalproex sodium 500 mg oral enteric coated tablet 2 tablets, By Mouth, Daily at bedtime, # 28 tablet, 0 Refills, Maintenance, 05/08/22 12:49:00 EST, Tablet, [facility] #[id number], Partial fill upon patient request if the prescription is for a schedule II opioid drug., 176, yolanda, 05/08/22 7:19:00... Start Date: 05/08/22 Stop Date: 05/22/22 Status: Ordered docusate sodium 100 mg oral capsule 100 mg, 1, capsule, By Mouth, 2 times a day, # 60 capsule, Refills 0, Tot. Refills 0, Maintenance, 06/20/21 23:57:00 EDT, Route to Pharmacy Electronically, [facility] #[id number], Partial fill upon patient request if the prescription is for a salima... Start Date: 06/20/21 Status: Ordered escitalopram 10 mg oral tablet 1 tablet = 10 mg, By Mouth, Daily, # 30 tablet, 5 Refills, Maintenance, 05/12/22 14:53:00 EST, Tablet, Partial fill upon patient request if the prescription is for a schedule II opioid drug. Start Date: 05/12/22 Status: Ordered escitalopram 10 mg oral tablet 1 tablet = 10 mg, By Mouth, Daily, # 30 tablet, 5 Refills, Maintenance, 03/11/22 10:23:00 EST, Tablet, Partial fill upon patient request if the prescription is for a schedule II opioid drug. Start Date: 03/11/22 Status: Ordered fluticasone 50 mcg/inh nasal spray 2 sprays, Nares, Both, Daily in AM, 0 Refills, Maintenance, 03/10/22 8:17:00 EST, [facility], Partial fill upon patient request if the [...] 1 Refills, Maintenance, 01/02/22 9:22:00 EDT, Tablet, [facility] #[id number], Partial fill upon patient request if the [...] 03/11/22 Status: Ordered oxyCODONE 5 mg oral capsule 1 capsule = 5 mg, By Mouth, Every 4 hours, PRN as needed for pain, 0 Refills, Maintenance, 05/12/2313:53:00 EST, Capsule, Partial fill upon patient request if the prescription is for a schedule II opioid drug. Start Date: 05/12/22 Status: Ordered pregabalin 200 mg oral capsule [...] drug. Start Date: 03/11/22 Status: Ordered tiZANidine 4 mg oral capsule 1 capsule = 4 mg, By Mouth, 3 times a day, # 90 capsule, 0 Refills, Maintenance, 05/12/22 14:52:00 EST, Capsule, Partial fill upon patient request if the prescription is for a schedule II opioid drug. Start Date: 05/12/22 Status: Ordered Ventolin HFA 108 mcg/inh inhalation [...] Range]: 1 2 3 Height 186 cm (05/11/22 9:04 PM) Weight 113.6 kg (05/11/22 9:04 PM) Oxygen Saturation [94-100 %] 98 % (05/12/22 12:00 AM) 99 % (05/11/22 9:04 PM) Pulse Rate [55-90 bpm] 90 bpm (05/12/22 12:00 AM) 95 bpm *H* (05/11/22 9:04 PM) Blood Pressure [90-138/55-84 mm Hg] 106/60mm Hg (05/12/22 12:00 AM) 100/58mm Hg (05/11/22 9:04 PM) Respiratory Rate [16-30 br/min] 18 br/min (05/12/22 12:00 AM) 18 br/min (05/11/22 10:27 PM) 18 br/min (05/11/22 10:27 PM) Temperature [96.8-100.4 DegF] 97.2 DegF (05/12/22 12:00 AM) 96.9 DegF (05/11/22 9:04 PM) Mode of Delivery (Oxygen) Room air (05/12/22 12:00 AM) Room air (05/11/22 9:04 PM) Blood pressure sites Arm, left (05/12/22 12:00 AM) Arm, left (05/11/22 9:04 PM) Temperature Route Temporal (05/12/22 12:00 AM) Tympanic (05/11/22 9:04 PM) Dry Weight 113.6 kg (05/11/22 9:04 PM) Social History Social History Type Response [...] Code MRI Safety Implantable Status 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 [id number] Unknown [id number] Unknown 03/11/21 Unknown Unknown Active GS1 Note * Shivam HENDERSON, Michael Serrano: PERFORM Event Display: Patient Education Leaflets Authored Date: [id number] Leg Swelling in Both Legs ?? [id number] Leg Swelling in Both Legs Swelling of the feet, ankles, and legs is called edema. It's caused by extra fluid that has collected in the tissues. Extra fluid in the body settles in the lowest part because of gravity. This is why the legs and feet are most affected. Some of the causes for edema include: ??? Disease of the heart, such as congestive heart failure ??? Standing or sitting for long periodsof time ??? Infection of the feet or legs ??? Blood pooling in the veins of your legs (venous insufficiency) when the veins have less elasticity ??? Dilated veins in your lower leg (varicose veins) ??? Poor drainage of the lymphatic system ??? Some medicines, including some hormones such as control pills, some blood pressure medicines such as calcium channel blockers, steroids, and some antidepressants such as MAO inhibitors and tricyclics ??? Menstrual periods that cause you to retain fluids ??? Many types of kidney disease ??? Liver failure??or cirrhosis ??? , in which some swelling is normal, but a sudden increase in leg swelling or weight gain can be a sign of a dangerouscomplication of called eclampsia ??? Poor nutrition ??? Thyroid disease Treatment will depend on what is causing the swelling in your legs. Your healthcare provider may prescribe water pills (diuretics) to get rid of the extra fluid. Home care Follow these guidelines when caring for yourself at home: ??? Keep your legs up while lying or sitting. ??? If infection, injury, or recent surgery is causing the swelling, stay off your legs as muchas possible until symptoms get better. ??? If your healthcare provider says that your leg swelling is caused by venous insufficiency or varicose veins, don't sit or forming roll operator heavy duty one place for long periods of time. Take breaks and walk about every few hours. Brisk walking is a good exercise. It helps circulate the blood that has collected in your leg. Talk with your provider about using support stockings to stop daytime leg swelling. ??? If your provider says that heart disease is causing your leg swelling, follow a low-salt diet to stop extra fluid from staying in your body. You may also need medicine. ?? Follow-up care Follow up with your healthcare provider, or as advised. ?? When to get medical advice Call your healthcare provider right away if any of these occur: ??? Swelling in both legs or ankles that gets worse ??? Belly (abdominal) swelling ??? Redness, warmth, or swelling in 1 leg ??? Fever of 100.4??F (38??C) or higher,??or as advised by your provider ??? Yellow color to your skin or eyes ??? Rapid, unexplained weight gain ??? Having to sleep upright or use more pillows ? Call 911 Call 911 or get medical care right away if you have: ??? New shortness of breath or chest pain ??? Worsening shortness of breath or chest pain? Last Reviewed Date: 2021 ?? 1584-9121 [employer]. All rights reserved. This information is not intended as a substitute for professional medical care. Always follow your healthcare professional's instructions. ?? * Michael Langley MD: PERFORM Event Display: Patient Education Leaflets Authored Date: [id number] Venous??Leg Ulcer ?? [id number] Venous??Leg Ulcer Arteries carry oxygenated blood from your heart to the rest of your body. Veins return the blood tothe heart. When you sit or stand, blood in the veins in your legs must??flow ???uphill?? to your heart.??Whenyou move your legs while walking, the contraction of your leg muscles has a pumping effect on the blood in the veins. The veins have one- way valves that stop the blood from flowing backward. If you have poor blood flow in your veins (venous insufficiency), the one-way valves are damaged. The blood doesn???t flow uphill very well. This raises pressure in the veins, and the tissues in yourlegs don???t get enough oxygen. As the problem gets worse, an area of skin near the ankle turns dark and an ulcer forms. This is called a venous stasis ulcer.??These ulcers usually don???t hurt unless they become infected. Venous stasis ulcers are treated with compression wraps, antibiotics that you put on your skin, andspecial dressings. Sometimes you may need a skin graft. Once the ulcer has healed, you will need touse compression stockings to help the pumping action in your veins. The stockings will also reduce swelling. Home care Follow these tips when caring for yourself at home: ??? Use any special compression dressings or stockings as directed. ??? If you were told to change your dressing, follow the instructions your healthcare provider gave you. Many different kinds of dressings can be used for this problem, and each is used differently. ??? Walk regularly. This helps the blood flow better in your legs. ??? Maintain a healthy weight. If you are overweight, talk with your provider about a weight loss program. ??? Ifyou smoke, quit smoking. This will ease your symptoms and lower the chance that the disease will get worse. Join a stop- smoking program or ask your provider for help in quitting. ??? Check your feet a nd legs for skin breaks or color changes. Report these to your provider. This could be an early sign of an ulcer. ??? Wear comfortable, well-fitting shoes and socks. Don???t use socks that are tight.If they leave a dent in your leg by the end of the day, they are too tight. ??? When standing, shift your weight from one leg to the other. ??? When sitting for long periods, put your feet up. Move your feet and ankles often to get your calf muscles moving. Get up and walk from time to time. ?? Follow-up care Follow up with your healthcare provider, or as advised. ?? Call 911 Call 911 if any of the following occur: ??? Shortness of breath or painful breathing ??? Chest pain??? Coughing up blood ?? When to get medical advice Call your healthcare provider right away??if any of these occur: ??? Pus or discharge coming from the ulcer ??? Pain in or around the ulcer ??? Redness or swelling of your leg around the ulcer ??? Fever of 100.4??F (38??C) or higher, or as advised by your provider ??? Lasting cough ?? Last Reviewed Date: 2021 ?? 5406-4676 [employer]. All rights reserved. This information is not intended as a substitute for professional medical care. Always follow your healthcare professional's instructions. ?? Patient Care team information Care Team Personnel Name: Konrad Gallegos RN Position: [facility] ED RN W/OE and Tasks Member Role: Primary Care Nurse Name: Niki Bright RN Position: [facility] RN Member Role: Primary Care Nurse Name: Fang Che Position: [facility] RN Member Role: Primary Care Nurse Name: Trisha Alamo RN Position: [facility] RN Supv Member Role: Primary Care Nurse Name: Rita Son NP Position: [facility] Associate Professional Member Role: Primary Care Nurse Address: Address: [address] [place] [address] Name: Sol Chanel RN Position: [facility] RN Member Role: Primary Care Nurse Name: Trisha Beltrán RN Position: [facility] RN Supv Member Role: Primary Care Nurse Name: Helene Pérez RN Position: [facility] RN Member Role: Primary Care Nurse Name: Brenda Cuba RN Position: [facility] HBO Wound Member Role: Primary Care Nurse Name: Kell Alonso RN Position: [facility] RN Member Role: Primary Care Nurse Name: Faraz Barriga RN Position: [facility] RN Member Role: Primary Care Nurse Name: Richa Clay LPN Position: [facility] RN Member Role: Primary Care Nurse Name: Екатерина Chacko RN Position: [facility] RN Member Role: Primary Care Nurse Name: Anna Lackey RN Position: [facility] RN Member Role: Primary Care Nurse Name: Anna Oconnor RN Position: [facility] Hospital Fern Cutter Member Role: Primary Care Nurse Name: Kip Gonzalez RN Position: [facility] RN Member Role: Primary Care Nurse Address: Address: [address] [place] [address]- [place] Name: Kari Grijalva RN Position: [facility] RN Member Role: Primary Care Nurse Name: Sunitha Gutierrez RN Position: [facility] RN Member Role: Primary Care Nurse Name: April Acuña RN Position: [facility] RN Member Role: Primary Care Nurse Name: Li Esquivel RN Position: [facility] Fern Cutter Member Role: Primary Care Nurse Name: Soto RAMIREZ MD, James C Position: [facility] Outreach Member Role: PCP Address: Address: [address] [place] [address]- [place] Name: Tunde White MD Position: [facility] Psychiatry MD Member Role: [employer] Consulting Physician Address: Address: [address] [place] [address]- [place] Name: Michael Langley MD Position: [facility] ED Medicine MD Member Role: Admitting Physician Address: Address: [address] [facility] [place] [address]- [place] Name: Kathy Angel RN Position: [facility] ED RN W/OE and Tasks Member Role: Patient Care Provider Care Team Related Persons Name: YOUSUF FORREST Address: home [address] [place] [address] Name: MÓNICA CREWS
--- OUTSIDE RECORDS SUMMARY | 2022-10-14 11:50 | XMS_ITS | Continuity of Care Document ---
Author Name Unknown Organization [facility] Address [address] [place] [address]- Care Team Providers Care [employer] Shift Lead Name Role Phone Elijah Gibbons MD Primary Care Physician [phone] [place] [facility] [place] 03/27/19 - 04/30/19 [facility] [address] [place] [id number] [facility] Attending Physician: Carlyle Marcelino MD Admitting Physician: Carlyle Marcelino MD Referring Physician: Elijah Gibbons MD Allergies, Adverse Reactions, Alerts Substance Reaction Severity Status Zoloft Active Thorazine Active traZODone Active ZyPREXA Active PROzac Active SEROquel Active Medications albuterol CFC free 90 mcg/inh inhalation aerosol 2, puffs, Inhalation, Every 4 hours, PRN, # 18 Gm, Refills 3, Tot. Refills 3, Maintenance, 02/13/1911:48:23 EST, Aerosol, Route to Pharmacy Electronically, [id number], [facility]/pharmacy #[id number] Start Date: 02/13/19 Status: [...] Refills, Maintenance, 02/28/19 12:11:45 EST, EC Tablet, [facility]/pharmacy #[id number], 183, cm, 02/28/19 11:39:08 [...] Maintenance, 198:58:23 EST, Route to Pharmacy Electronically, [id number], [facility]/pharmacy #[id number], 183, cm, 02/17/19 8:22:07 EST, Height, 127, kg... Start Date: 02/17/19 Status: Ordered fluticasone 50 mcg/inh nasal spray 2 sprays, Nares, Both, 2 times a day, # 9.9 mL, 0 Refills, Maintenance, 11/15/18 14:21:09 EDT, [place], 2 sprays Nares, Both 2 times a day Start Date: 11/15/18 Status: Ordered gabapentin 100 mg oral capsule 100 mg, 1, capsule, By Mouth, Daily at bedtime, # 30 capsule, Refills 0, Tot. Refills 0, Maintenance, 02/28/19 12:13:04 EST, Route to Pharmacy Electronically, [facility]/pharmacy #[id number], 183, cm, 02/28/19 11:39:08 [...]
--- OUTSIDE RECORDS SUMMARY | 2022-10-14 11:50 | XMS_ITS | Continuity of Care Document ---
Author Name Unknown Organization [facility] Address [address] [place] [address]- Care Team Providers Care Senior Inspector Name Role Phone Soto RAMIREZ MD, Bal Serrano Primary Care Physician Encounter [facility] Date(s): 09/13/20 - 09/13/[address] [address]- Discharge Disposition: A-D/C Home Attending Physician: Gus Vivas MD Admitting Physician: Gus Vivas MD Referring Physician: Gus Vivas MD Allergies, Adverse Reactions, Alerts Substance Reaction [...] 02/13/1911:48:23 EST, Aerosol, Route to Pharmacy Electronically, [id number], [facility]/pharmacy #[id number] Start Date: 02/13/19 Status: [...] 3 Refills, Maintenance, 04/15/20 10:15:00 EST, Tablet, [facility] #[id number], Partial fill upon patient request if the prescription isfor a schedule II opioid drug., 183, cm, 04/15/20 0... Start Date: 04/15/20 Stop Date: 05/13/20 Status: Ordered amitriptyline 25 mg oral tablet 75 mg, 3, tablet, By Mouth, Daily, # 21 tablet, Refills 3, Tot. Refills 3, Maintenance, 04/13/20 14:55:00 EST, Route to Pharmacy Electronically, [facility] #[id number], Partial fill upon patientrequest if the prescription is for a schedule II op... Start Date: 04/13/20 Stop Date: 05/11/20 Status: Ordered baclofen 10 mg oral tablet 20 mg, 2, tablet, By Mouth, 2 times a day, # 56 tablet, Refills 1, Tot. Refills 1, Maintenance, 04/13/20 14:54:00 EST, Route to Pharmacy Electronically, [facility] #[id number], Partial fill uponpatient request if the prescription is for a schedu... Start Date: 04/13/20 Stop Date: 05/11/20 Status: Ordered busPIRone 15 mg oral tablet 1 tablet = 15 mg, By Mouth, 3 times a day, # 42 tablet, 1 Refills, Maintenance, 04/13/20 14:56:00 EST, Tablet, [facility] #[id number], Partial fill upon patient request if the prescription is for a schedule II opioid drug., 183, cm, 04/13/20 9:04... Start Date: 04/13/20 Stop Date: 05/11/20 Status: Ordered CeleBREX 100 mg oral capsule 1 capsule = 100 mg, By Mouth, 2 times a day, # 15 capsule, 0 Refills, Maintenance, 07/27/20 19:07:00 EDT, Capsule, [facility] #[id number], Partial fill upon patient request if the [...] 09/13/20 14:45:00 EDT, Route to Pharmacy Electronically, [facility] #[id number], Partial fill upon patient request if the prescription is for a salima... Start Date: 09/13/20 Status: Ordered fluticasone 50 mcg/inh nasal spray 2 sprays, Nares, Both, 2 times a day, # 9.9 mL, 0 Refills, Maintenance, 11/15/18 14:21:09 EDT, [place], 2 sprays Nares, Both 2 times [...] 09/13/20 14:44:00 EDT, Route to Pharmacy Electronically, [facility] #[id number], Partial fill upon patient request... Start Date: 09/13/20 Stop Date: 09/20/20 Status: Ordered nicotine 14 mg/24 hr transdermal film, extended release 1 patch, Topically, Daily, # 30 patch, 0 Refills, Acute 05/28/21 9:00:00 EDT, 05/28/20 15:55:00 EDT, Patch, [facility] #[id number], Partial fill upon patient request if the prescription is for aschedule II opioid drug., 1 patch Topically Daily,... Start Date: 05/28/20 Stop Date: 05/28/21 Status: Ordered oxyCODONE 5 mg oral tablet 10 mg, Tablet, By Mouth, Every 6 hours for 7 days, PRN for Pain , Severe, Routine, 09/13/20 14:41:00 EDT, Stop date 09/20/20 14:40:00 EDT Start Date: 09/13/20 Stop Date: 09/14/20 Status: Discontinued oxyCODONE 5 mg oral tablet 5 mg, 1, tablet, By Mouth, Every 6 hours, PRN, # 20 tablet, Refills 0, Tot. Refills 0, Acute 09/20/20 14:45:00 EDT, Pain , Severe, 09/13/20 14:44:00 EDT, Route to Pharmacy Electronically, [facility] #[id number], Partial fill upon patient request... Start Date: 09/13/20 Stop Date: 09/20/20 Status: Ordered propranolol 40 mg oral tablet 40 mg, 1, tablet, By Mouth, 2 times a day, # 28 tablet, Refills 1, Tot. Refills 1, Maintenance, 04/13/20 14:56:00 EST, Route to Pharmacy Electronically, [facility] #[id number], Partial fill uponpatient request if the prescription [...] 04/13/20 14:57:00 EST, Route to Pharmacy Electronically, [facility] #[id number], Partial fill upon patient request if the [...] 1 Refills, Maintenance, 04/13/20 14:55:00 EST, Tablet, [facility] #[id number], Partial fill upon patient request if the prescription is for a schedule II opioid drug., 183, cm, 04/13/20 9:0... Start Date: 04/13/20 Stop Date: 05/11/20 Status: Ordered traMADol 50 mg oral tablet 1 tablet = 50 mg, By Mouth, Every 12 hours, PRN for pain, # 10 tablet, 0 Refills, Maintenance, 07/27/20 19:15:00 EDT, Tablet, [facility] #[id number], Partial fill upon patient request if the [...] Range]: 1 2 3 Height 183 cm (09/13/20 10:12 AM) Oxygen Saturation [94-100 %] 98 % (09/13/20 3:51 PM) 97 % (09/13/20 3:27 PM) 99 % (09/13/20 3:12 PM) Pulse Rate [55-90 bpm] 83 bpm (09/13/20 10:12 AM) Blood Pressure [90-138/55-84 mm Hg] 133/73mm Hg (09/13/20 3:51 PM) 136/93mm Hg (09/13/20 3:27 PM) 134/90mm Hg (09/13/20 3:12 PM) Respiratory Rate [16-30 br/min] 16 br/min (09/13/20 4:24 PM) 21 br/min (09/13/20 3:51 PM) 15 br/min *L* (09/13/20 3:30 PM) Temperature [96.8-100.4 DegF] 97.2 DegF (09/13/20 2:27 PM) 97.7 DegF (09/13/20 10:12 AM) Mode of Delivery (Oxygen) Room air (09/13/20 3:51 PM) Room air (09/13/20 3:15 PM) Simple face mask (09/13/20 2:57 PM) Blood pressure sites Arm, left (09/13/20 10:12 AM) Temperature Route Temporal (09/13/20 2:27 PM) Temporal (09/13/20 10:12 AM) Dry Weight 136.5 kg (09/13/20 10:12 AM) Dry Weight Obtained Via Patient/family s tated (09/13/20 10:12 AM) Social History Social History Type Response Tobacco Use: 1PPD. Sex Medical Equipment Implanted Date:09/13/20Target Site:Abdomen Description Quantity MRI Company Model MESH VENTRALIGHT ECHO ELLIPS 4 - BARD ([id number]) 1 Bard Unknown HAYDEE:{01}[id number] Assigning Author ity:FDA
--- OUTSIDE RECORDS SUMMARY | 2022-10-14 11:50 | XMS_ITS | Continuity of Care Document ---
Author Name Unknown Organization [facility] Address [address] [place] [address]- Care Team Providers Care Commodities Manager Name Role Phone Soto RAMIREZ MD, Bal Serrano Primary Care Physician Encounter [facility] Date(s): 09/24/20 - [facility] [address] [place] [address]- Attending Physician: Gus Vivas MD Allergies, Adverse Reactions, [...] 02/13/1911:48:23 EST, Aerosol, Route to Pharmacy Electronically, [id number], [facility]/pharmacy #[id number] Start Date: 02/13/19 Status: [...] 3 Refills, Maintenance, 04/15/20 10:15:00 EST, Tablet, [facility] #[id number], Partial fill upon patient request if the prescription isfor a schedule II opioid drug., 183, cm, 04/15/20 0... Start Date: 04/15/20 Stop Date: 05/13/20 Status: Ordered amitriptyline 25 mg oral tablet 75 mg, 3, tablet, By Mouth, Daily, # 21 tablet, Refills 3, Tot. Refills 3, Maintenance, 04/13/20 14:55:00 EST, Route to Pharmacy Electronically, [facility] #[id number], Partial fill upon patientrequest if the prescription is for a schedule II op... Start Date: 04/13/20 Stop Date: 05/11/20 Status: Ordered baclofen 10 mg oral tablet 20 mg, 2, tablet, By Mouth, 2 times a day, # 56 tablet, Refills 1, Tot. Refills 1, Maintenance, 04/13/20 14:54:00 EST, Route to Pharmacy Electronically, [facility] #[id number], Partial fill uponpatient request if the prescription is for a schedu... Start Date: 04/13/20 Stop Date: 05/11/20 Status: Ordered busPIRone 15 mg oral tablet 1 tablet = 15 mg, By Mouth, 3 times a day, # 42 tablet, 1 Refills, Maintenance, 04/13/20 14:56:00 EST, Tablet, [facility] #[id number], Partial fill upon patient request if the prescription is for a schedule II opioid drug., 183, cm, 04/13/20 9:04... Start Date: 04/13/20 Stop Date: 05/11/20 Status: Ordered cloNIDine 0.1 mg oral tablet 0.1 mg, 1, tablet, By Mouth, 2 times a day, # 10 tablet, Refills 0, Tot. Refills 0, Maintenance, 10/22/20 15:02:00 EDT, Route to Pharmacy Electronically, [facility] #[id number], Partial fill upon patient request if the [...] 09/13/20 14:45:00 EDT, Route to Pharmacy Electronically, [facility] #[id number], Partial fill upon patient request if the prescription is for a salima... Start Date: 09/13/20 Status: Ordered Flomax 0.4 mg oral capsule 0.4 mg, 1, capsule, By Mouth, Daily, # 30 capsule, Refills 0, Tot. Refills 0, Maintenance, 10/22/2121:52:00 EDT, Route to Pharmacy Electronically, [facility] #[id number], Partial fill upon patient request if the prescription is for a schedule II... Start Date: 10/22/20 Status: Ordered fluticasone 50 mcg/inh nasal spray 2 sprays, Nares, Both, 2 times a day, # 9.9 mL, 0 Refills, Maintenance, 11/15/18 14:21:09 EDT, [place], 2 sprays Nares, Both 2 times a [...] 05/28/21 9:00:00 EDT, 05/28/20 15:55:00 EDT, Patch, [facility] #[id number], Partial fill upon patient request if the prescription is for aschedule II opioid drug., 1 patch Topically Daily,... Start Date: 05/28/20 Stop Date: 05/28/21 Status: Ordered propranolol 40 mg oral tablet 40 mg, 1, tablet, By Mouth, 2 times a day, # 28 tablet, Refills 1, Tot. Refills 1, Maintenance, 04/13/20 14:56:00 EST, Route to Pharmacy Electronically, [facility] #[id number], Partial fill uponpatient request if the prescription [...] 04/13/20 14:57:00 EST, Route to Pharmacy Electronically, [facility] #[id number], Partial fill upon patient request [...] 0 Refills, Maintenance, 07/27/20 19:15:00 EDT, Tablet, [facility] #[id number], Partial fill upon patient request if the [...] MESH VENTRALIGHT ECHO ELLIPS 4 - BARD ([id number]) 1 Bard Unknown HAYDEE:{01}[id number] Assigning Author ity:FDA
--- OUTSIDE RECORDS SUMMARY | 2022-10-14 11:51 | XMS_ITS | Continuity of Care Document ---
Author Name Unknown Organization [facility] Address [address] [place] [address]- Care Team Providers Care Press Technician Name Role Phone Soto RAMIREZ MD, Bal Serrano Primary Care Physician Encounter [facility] Date(s): 01/19/21 - 01/19/[address] [address]- Discharge Disposition: A-D/C Home Attending Physician: Triston [...] 02/13/1911:48:23 EST, Aerosol, Route to Pharmacy Electronically, [id number], [facility]/pharmacy #[id number] Start Date: 02/13/19 Status: [...] 3 Refills, Maintenance, 04/15/20 10:15:00 EST, Tablet, [facility] #[id number], Partial fill upon patient request if the prescription isfor a schedule II opioid drug., 183, cm, 04/15/20 0... Start Date: 04/15/20 Stop Date: 05/13/20 Status: Ordered amitriptyline 25 mg oral tablet 75 mg, 3, tablet, By Mouth, Daily, # 21 tablet, Refills 3, Tot. Refills 3, Maintenance, 04/13/20 14:55:00 EST, Route to Pharmacy Electronically, [facility] #[id number], Partial fill upon patientrequest if the prescription is for a schedule II op... Start Date: 04/13/20 Stop Date: 05/11/20 Status: Ordered baclofen 10 mg oral tablet 20 mg, Tablet, By Mouth, Once, Routine, 01/19/21 23:00:00 EST, Stop date 01/19/21 23:00:00 EST Start Date: 01/19/21 Stop Date: 01/19/21 Status: Completed baclofen 10 mg oral tablet 20 mg, 2, tablet, By Mouth, 2 times a day, # 56 tablet, Refills 1, Tot. Refills 1, Maintenance, 04/13/20 14:54:00 EST, Route to Pharmacy Electronically, [facility] #[id number], Partial fill uponpatient request if the prescription is for a schedu... Start Date: 04/13/20 Stop Date: 05/11/20 Status: Ordered busPIRone 15 mg oral tablet 1 tablet = 15 mg, By Mouth, 3 times a day, # 42 tablet, 1 Refills, Maintenance, 04/13/20 14:56:00 EST, Tablet, [facility] #[id number], Partial fill upon patient request if the prescription is for a schedule II opioid drug., 183, cm, 04/13/20 9:04... Start Date: 04/13/20 Stop Date: 05/11/20 Status: Ordered cloNIDine 0.1 mg oral tablet 0.1 mg, 1, tablet, By Mouth, 2 times a day, # 10 tablet, Refills 0, Tot. Refills 0, Maintenance, 10/22/20 15:02:00 EDT, Route to Pharmacy Electronically, [facility] #[id number], Partial fill upon patient request if the [...] 09/13/20 14:45:00 EDT, Route to Pharmacy Electronically, [facility] #[id number], Partial fill upon patient request if the prescription is for a salima... Start Date: 09/13/20 Status: Ordered doxycycline monohydrate 100 mg oral capsule 1 capsule = 100 mg, By Mouth, 2 times a day, for 7 days, # 14 capsule, 0 Refills, Acute 01/20/21 17:48:00 EST, 01/13/21 17:48:00 EDT, Capsule, [facility] #[id number], Partial fill upon patient request if the prescription is for a schedule II opio... Start Date: 01/13/21 Stop Date: 01/20/21 Status: Ordered Flomax 0.4 mg oral capsule 0.4 mg, 1, capsule, By Mouth, Daily, # 30 capsule, Refills 0, Tot. Refills 0, Maintenance, 10/22/2121:52:00 EDT, Route to Pharmacy Electronically, [facility] #[id number], Partial fill upon patient request if the prescription is for a schedule II... Start Date: 10/22/20 Status: Ordered fluticasone 50 mcg/inh nasal spray 2 sprays, Nares, Both, 2 times a day, # 9.9 mL, 0 Refills, Maintenance, 11/15/18 14:21:09 EDT, [place], 2 sprays Nares, Both 2 times a day Start Date: 11/15/18 Status: Ordered furosemide 20 mg oral tablet 20 mg, 1, tablet, By Mouth, Daily, Refills 0, Maintenance, 05/28/20 15:49:00 EDT, Partial fill uponpatient request if the prescription is for a schedule II opioid drug. Start Date: 05/28/20 Status: Ordered gabapentin 400 mg oral capsule 800 mg, Capsule, By Mouth, Once, Routine, 01/19/21 23:00:00 EST, Stop date 01/19/21 23:00:00 EST Start Date: 01/19/21 Stop Date: 01/19/21 Status: Completed gabapentin 800 mg oral tablet 1 tablet = 800 mg, By Mouth, 3 times a day, # 90 tablet, 0 Refills, Maintenance, 01/07/21 18:42:00 EDT, Tablet, [facility] #[id number], Partial fill upon patient request if the prescription is for a schedule II opioid drug., 183, cm, 01/07/21 17:... Start Date: 01/07/21 Status: Ordered nicotine 14 mg/24 hr transdermal film, extended release 1 patch, Topically, Daily, # 30 patch, 0 Refills, Acute 05/28/21 9:00:00 EDT, 05/28/20 15:55:00 EDT, Patch, [facility] #[id number], Partial fill upon patient request if the prescription is for aschedule II opioid drug., 1 patch Topically Daily,... Start Date: 05/28/20 Stop Date: 05/28/21 Status: Ordered propranolol 40 mg oral tablet 40 mg, 1, tablet, By Mouth, 2 times a day, # 28 tablet, Refills 1, Tot. Refills 1, Maintenance, 04/13/20 14:56:00 EST, Route to Pharmacy Electronically, [facility] #[id number], Partial fill uponpatient request if the prescription [...] 04/13/20 14:57:00 EST, Route to Pharmacy Electronically, [facility] #[id number], Partial fill upon patient request if the [...] 0 Refills, Maintenance, 07/27/20 19:15:00 EDT, Tablet, [facility] #[id number], Partial fill upon patient request if the [...] Range]: 1 2 3 Height 184 cm (01/19/21 9:32 PM) Weight 149 kg (01/19/21 9:32 PM) Oxygen Saturation [94-100 %] 98 % (01/19/21 9:26 PM) Pulse Rate [55-90 bpm] 94 bpm *H* (01/19/21 9:26 PM) Blood Pressure [90-138/55-84 mm Hg] 147/103mm Hg *H* (01/19/21 9:26 PM) Respiratory Rate [16-30 br/min] 18 br/min (01/19/21 9:47 PM) 18 br/min (01/19/21 9:46 PM) 18 br/min (01/19/21 9:26 PM) Temperature [96.8-100.4 DegF] 98.7 DegF (01/19/21 9:26 PM) Mode of Delivery (Oxygen) Room air (01/19/21 9:26 PM) Blood pressure sites Arm, right (01/19/21 9:26 PM) Temperature Route Temporal (01/19/21 9:26 PM) Dry Weight 149 kg (01/19/21 9:32 PM) Weight Obtained Via Patient/family state d (01/19/21 9:32 PM) Social History Social History Type Response Tobacco Use: 1PPD. Sex Medical Equipment Implanted Date:09/13/20Target Site:Abdomen Description Quantity MRI Company Model MESH VENTRALIGHT ECHO ELLIPS 4 - BARD ([id number]) 1 Bard Unknown HAYDEE:{01}[id number] Assigning Author ity:FDA
--- OUTSIDE RECORDS SUMMARY | 2022-10-14 11:51 | XMS_ITS | Continuity of Care Document ---
Author Name Unknown Organization [facility] Address [address] [place] [address]- Care Team Providers Care Etl Lead Name Role Phone Elijah Gibbons MD Primary Care Physician [phone] Encounter [facility] Date(s): 11/18/19 - 11/18/[address] [address]- [facility] Encounter Diagnosis Accidental overdose(Final) - 11/18/19 Discharge Disposition: A-D/C Home Attending Physician: Hieu [...] 02/13/1911:48:23 EST, Aerosol, Route to Pharmacy Electronically, [id number], [facility]/pharmacy #[id number] Start Date: [...] 0 Refills, Maintenance, 02/28/19 12:08:43 EST, Tablet, [facility]/pharmacy #[id number], 183, cm, 02/28/19 11:39:08 EST, Height, 124, kg, 02/22/19 8:26:27 EST, Dry Weight Start Date: 02/28/19 Status: Ordered cloNIDine 0.3 mg oral tablet 1 tablet = 0.3 mg, By Mouth, Daily, 0 Refills, Maintenance, 10/11/19 16:51:00 EDT Start Date: 10/11/19 Status: Ordered divalproex sodium 500 mg oral enteric coated tablet 1 tablet = 500 mg, By Mouth, 2 times a day, # 60 tablet, 1 Refills, Maintenance, 02/28/19 12:11:45 EST, EC Tablet, [facility]/pharmacy #[id number], 183, cm, 02/28/19 11:39:08 [...] Maintenance, 198:58:23 EST, Route to Pharmacy Electronically, [id number], [facility]/pharmacy #1111, 183, cm, 02/17/19 8:22:07 EST, Height, 127, kg... Start Date: 02/17/19 Status: Ordered fluticasone 50 mcg/inh nasal spray 2 sprays, Nares, Both, 2 times a day, # 9.9 mL, 0 Refills, Maintenance, 11/15/18 14:21:09 EDT, [place], 2 sprays Nares, Both 2 times a day Start Date: 11/15/18 Status: Ordered furosemide 20 mg oral tablet 20 mg, 1, tablet, By Mouth, 2 times a day, # 60 tablet, Refills 0, Tot. Refills 0, Maintenance, 10/12/19 19:13:00 EDT, Route to Pharmacy Electronically, [facility]/pharmacy #1111, 180, cm, 10/12/19 19:05:00EDT, Height, 135, kg, 10/12/19 19:05:00 EDT, Dry We... Start Date: 10/12/19 Status: Ordered gabapentin 800 mg oral tablet 1 tablet = 800 mg, By Mouth, 3 times a day, # 90 tablet, 1 Refills, Maintenance, 10/05/19 17:25:00 EDT, Tablet, [facility]/pharmacy #[id number], 183, cm, 10/05/19 16:47:00 [...] 7:36:00 EDT Start Date: 10/25/19 Status: Ordered Problem List Condition Effective Dates Status Health Status Inform ant Allergic rhinitis(Confirmed) Active Asthma(Confirmed) Active Bipolar disorder with depression(Confirmed) Active GERD (gastroesophageal reflu x disease)(Confirmed) Active Generalized anxiety disorder(Confirmed) Active Hypothyroidism(Confirmed) Active Vital Signs Most recent to oldest [Reference Range]: 1 2 3 Height 183 cm (11/18/19 10:45 PM) 183 cm (11/18/19 8:47 PM) 183 cm (11/18/19 7:43 PM) Weight 135 kg (11/18/19 10:45 PM) 135 kg (11/18/19 8:47 PM) 135 kg (11/18/19 7:43 PM) Oxygen Saturation [94-100 %] 96 % (11/18/19 10:45 PM) 95 % (11/18/19 8:47 PM) 100 % (11/18/19 7:43 PM) Pulse Rate [55-90 bpm] 91 bpm *H* (11/18/19 10:45 PM) 88 bpm (11/18/19 8:47 PM) 93 bpm *H* (11/18/19 7:43 PM) Body Mass Index [18.5-24.99] 40.31 *>HHI* (11/18/19 10:45 PM) 40.31 *>HHI* (11/18/19 8:47 PM) 40.31 *>HHI* (11/18/19 7:43 PM) Blood Pressure [90-138/55-84 mm Hg] 161/97mm Hg *H* (11/18/19 10:45 PM) 134/83mm Hg (11/18/19 8:47 PM) 136/87mm Hg (11/18/19 7:43 PM) Respiratory Rate [16-30 br/min] 16 br/min (11/18/19 10:45 PM) 15 br/min *L* (11/18/19 8:47 PM) 17 br/min (11/18/19 7:43 PM) Temperature [96.8-100.4 DegF] 97.6 DegF (11/18/19 6:18 PM) Mode of Delivery (Oxygen) Room air (11/18/19 10:45 PM) Room air (11/18/19 8:47 PM) Room air (11/18/19 7:43 PM) Blood pressure sites Arm, left (11/18/19 10:45 PM) Arm, left (11/18/19 8:47 PM) Arm, left (11/18/19 7:43 PM) Dry Weight 135 kg (11/18/19 10:45 PM) 135 kg (11/18/19 8:47 PM) 135 kg (11/18/19 7:43 PM) Dry Weight Obtained Via Standing scale (11/18/19 6:18 PM) Social History Social History Type Response Smoking Status 10 or more cigarette s (1/2 pack or more)/day in last 30 days; Tobacco user in household: No entered on: 11/15/18 Sex
--- OUTSIDE RECORDS SUMMARY | 2022-10-14 11:51 | XMS_ITS | Continuity of Care Document ---
Author Name Unknown Organization [facility] Address [address] [place] [address]- Care Team Providers Care Credit Card Clerk Name Role Phone Not on Staff, PCP Primary Care Physician Unavail able Encounter [facility] Date(s): 07/15/22 - 07/15/[address] [address]- Discharge Disposition: A-D/C Home Attending Physician: Lizett George MD Admitting Physician: Lizett George MD Referring Physician: Not on Staff, Referring MD Allergies, Adverse Reactions, Alerts Substance Reaction Severity Status Zoloft Active Thorazine Active traZODone Active ZyPREXA Active Immunizations Given and Recorded Vaccine Date Status Refusal Reason tetanus/diphtheria/pertussis, acel(Tdap) 04/09/22 Recorded tetanus/diphtheria/pertussis, acel(Tdap) 05/18/18 Recorded tetanus/diphtheria/pertussis, acel(Tdap) 12/19/16 Recorded [id number] 12y+ bivalent booster vax 02/11/22 Recorded SARS-CoV-2 [...] 1 Refills, Maintenance, 05/08/22 12:50:00 EST, Tablet, [facility] #[id number], Partial fill upon patient request if the prescription is for a schedule II opioid drug., yolanda Go, 05/08/22 7:19:00 EST,... Start Date: 05/08/22 Stop Date: 06/05/22 Status: Ordered benztropine 1 mg oral tablet 1 mg, 1, tablet, By Mouth, Daily, # 14 tablet, Refills 1, Tot. Refills 1, Maintenance, 05/08/22 12:50:00 EST, Route to Pharmacy Electronically, [facility] #[id number], Partial fill upon patient request if the prescription is for a schedule II opi... Start Date: 05/08/22 Stop Date: 06/05/22 Status: Ordered busPIRone 30 mg oral tablet 1 tablet = 30 mg, By Mouth, 2 times a day, # 28 tablet, 0 Refills, Maintenance, 05/08/22 12:59:00 EST, Tablet, [facility] #[id number], Partial fill upon patient request if the prescription is for a schedule II opioid drug., 176yolanda, 05/08/22 7:19... Start Date: 05/08/22 Stop Date: 05/22/22 Status: Ordered chlorproMAZINE 100 mg oral tablet = 100 mg, By Mouth, Daily at bedtime, # 14 tablet, 0 Refills, Maintenance, 05/08/22 12:52:00 EST, Tablet, [facility] #[id number], Partial fill upon patient request if the prescription is for a schedule II opioid drug., yolanda Go, 05/08/22 7:19:00 E... Start Date: 05/08/22 Stop Date: 05/22/22 Status: Ordered chlorproMAZINE 50 mg oral tablet = 50 mg, By Mouth, Daily before lunch, # 14 tablet, 0 Refills, Maintenance, 05/08/22 12:51:00 EST, Tablet, [facility] #[id number], Partial fill upon patient request if the prescription is for a schedule II opioid drug., Abbi, yolanda, 05/08/22 7:19:00... Start Date: 05/08/22 Stop Date: 05/22/22 Status: Ordered chlorproMAZINE 50 mg oral tablet 1 tablet = 50 mg, By Mouth, Daily in AM, # 180 tablet, 0 Refills, Maintenance, 05/08/22 12:53:00 EST, Tablet, [facility] #[id number], Partial fill upon patient request if the prescription is fora schedule II opioid drug., 176yolanda, 05/08/22 7:19:... Start Date: 05/08/22 Status: Ordered cloNIDine 0.2 mg oral tablet 0.2 mg, 1, tablet, By Mouth, 2 times a day, # 20 tablet, Refills 2, Tot. Refills 2, Maintenance, 01/01/22 15:56:00 EDT, Route to Pharmacy Electronically, [facility] #[id number], Partial fill upon patient request if the prescription is for a sched... Start Date: 01/01/22 Stop Date: 01/31/22 Status: Ordered diazepam 5 mg oral tablet 5 mg, 1, tablet, By Mouth, 2 times a day, # 10 tablet, Refills 0, Tot. Refills 0, Acute 07/16/22 8:53:00 EDT, 07/11/22 8:53:00 EDT, Route to Pharmacy Electronically, [facility] #[id number], Partial fill upon patient request if the prescription is... Start Date: 07/11/22 Stop Date: 07/16/22 Status: Ordered divalproex sodium 500 mg oral enteric coated tablet 1 tablet = 500 mg, By Mouth, Daily in AM, # 14 tablet, 0 Refills, Maintenance, 05/08/22 12:49:00 EST, Tablet, [facility] #[id number], Partial fill upon patient request if the prescription is fora schedule II opioid drug., 176, yolanda, 05/08/22 7:19:... Start Date: 05/08/22 Stop Date: 05/22/22 Status: Ordered divalproex sodium 500 mg oral enteric coated tablet 2 tablets, By Mouth, Daily at bedtime, # 28 tablet, 0 Refills, Maintenance, 05/08/22 12:49:00 EST, Tablet, [facility] #[id number], Partial fill upon patient request if the prescription is for a schedule II opioid drug., 176, yolanda, 05/08/22 7:19:00... Start Date: 05/08/22 Stop Date: 05/22/22 Status: Ordered docusate sodium 100 mg oral capsule 100 mg, 1, capsule, By Mouth, 2 times a day, # 60 capsule, Refills 0, Tot. Refills 0, Maintenance, 06/20/21 23:57:00 EDT, Route to Pharmacy Electronically, [facility] #[id number], Partial fill upon patient request if the [...] AM, 0 Refills, Maintenance, 03/10/22 8:17:00 EST, [place], Partial fill upon patient request if the [...] 0 Refills, Maintenance, 07/15/22 14:29:00 EDT, Capsule, [facility] #[id number], Partial fill upon patient request if the prescription is for a schedule II opioid drug.,... Start Date: 07/15/22 Stop Date: 07/22/22 Status: Ordered levothyroxine 0.05 mg oral tablet 1 tablet = 50 mcg, By Mouth, Daily, # 14 tablet, 1 Refills, Maintenance, 01/02/22 9:22:00 EDT, Tablet, [facility] #[id number], Partial fill upon patient request if the [...] [Reference Range]: 1 Height 185 cm (07/15/22 4:23 AM) Weight 120 kg (07/15/22 4:23 AM) Oxygen Saturation [94-100 %] 100 % (07/15/22 4:20 AM) Pulse Rate [55-90 bpm] 88 bpm (07/15/22 4:20 AM) Blood Pressure [90-138/55-84 mm Hg] 152/ 88mm Hg *H* (07/15/22 4:20 AM) Respiratory Rate [16-30 br/min] 16 br/mi n (07/15/22 4:20 AM) Temperature [96.8-100.4 DegF] 97.4 DegF (07/15/22 4:20 AM) Mode of Delivery (Oxygen) Room air (07/15/22 4:20 AM) Blood pressure sites Arm, left (07/15/22 4:20 AM) Temperature Route Temporal (07/15/22 4:20 AM) Dry Weight 120 kg (07/15/22 4:23 AM) Dry Weight Obtained Via Patient/family s tated (07/15/22 4:23 AM) Social History Social History Type Response [...] Code MRI Safety Implantable Status 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 [id number] Unknown [id number] Unknown 03/11/21 Unknown Unknown Active GS1 Patient Care team information Care Team Personnel Name: Konrad Gallegos RN Position: [facility] ED RN W/OE and Tasks Member Role: Primary Care Nurse Name: Niki Bright RN Position: [facility] RN Member Role: Primary Care Nurse Name: Fang Che Position: [facility] RN Member Role: Primary Care Nurse Name: Trisha Alamo RN Position: [facility] RN Supv Member Role: Primary Care Nurse Name: Rita Son NP Position: [facility] Associate Professional Member Role: Primary Care Nurse Address: Address: [address] [place] [address]- Name: Sol Chanel RN Position: [facility] RN Member Role: Primary Care Nurse Name: Trisha Beltrán RN Position: [facility] RN Supv Member Role: Primary Care Nurse Name: Helene Pérez RN Position: [facility] RN Member Role: Primary Care Nurse Name: Brenda Cuba RN Position: [facility] Wound Member Role: Primary Care Nurse Name: Kell Alonso RN Position: [facility] RN Member Role: Primary Care Nurse Name: Faraz Barriga RN Position: [facility] RN Member Role: Primary Care Nurse Name: Richa Clay LPN Position: [facility] RN Member Role: Primary Care Nurse Name: Екатерина Chacko RN Position: [facility] RN Member Role: Primary Care Nurse Name: Anna Lackey RN Position: [facility] RN Member Role: Primary Care Nurse Name: Elizabeth Ha RN Position: [facility] RN Member Role: Primary Care Nurse Name: Not on Staff, PCP Position: [facility] Physician (General Medicine) Member Role: PCP Name: Anna Oconnor RN Position: [facility] Machined [employer] Metal Sprayer Member Role: Primary Care Nurse Name: Kip Gonzalez RN Position: [facility] RN Member Role: Primary Care Nurse Address: Address: [address] [place] [address]- Name: Anisha Hinds RN Position: [facility] RN Member Role: Primary Care Nurse Name: Sunitha Gutierrez RN Position: [facility] RN Member Role: Primary Care Nurse Name: April Acuña RN Position: [facility] RN Member Role: Primary Care Nurse Name: Li Esquivel RN Position: [facility] Hospital [employer] Metal Sprayer Member Role: Primary Care Nurse Name: Tunde White MD Position: [facility] Psychiatry MD Member Role: Lifetime Consulting Physician Address: Address: [address] [place] [address]- [place] Name: Ramesh Bird RN Position: [facility] ED RN W/OE and Tasks Member Role: Patient Care Provider Name: Lizett George MD Position: [facility] ED Medicine MD Member Role: Admitting Physician Address: Address: [address] [place] [address]- [place] Care Team Related Persons Name: FORREST TO Address: home [address] [place] [address] Name: MÓNICA CREWS
--- OUTSIDE RECORDS SUMMARY | 2022-10-14 11:51 | XMS_ITS | Continuity of Care Document ---
Author Name Unknown Organization [facility] Address [address] [place] [address]- Care Team Providers Care Conservation Specialist Name Role Phone Soto RAMIREZ MD, Bal Serrano Primary Care Physician Encounter [facility] Date(s): 01/12/22 - 01/13/[address] [address]- Discharge Disposition: A-D/C [facility], [facility], or [facility] Fac Attending Physician: Lizett George MD Admitting Physician: [...] 01/19/22 15:58:00 EST, 01/01/22 15:58:00 EDT, Tablet, [facility] #[id number], Partial fill upon patient request if the [...] 1 Refills, Maintenance, 01/01/22 15:55:00 EDT, Tablet, [facility] #[id number], Partial fill upon patient request if the prescription is for a schedule II opioid drug., 186, cm, 01/01/22 11:49:00 EDT... Start Date: 01/01/22 Stop Date: 01/29/22 Status: Ordered benztropine 1 mg oral tablet 1 mg, 1, tablet, By Mouth, Daily, # 14 tablet, Refills 1, Tot. Refills 1, Maintenance, 01/01/22 15:54:00 EDT, Route to Pharmacy Electronically, [facility] #[id number], Partial fill upon patient request if the prescription is for a schedule II opi... Start Date: 01/01/22 Stop Date: 01/29/22 Status: Ordered busPIRone 15 mg oral tablet 1 tablet = 15 mg, By Mouth, 3 times a day, # 30 tablet, 2 Refills, Maintenance, 01/01/22 15:55:00 EDT, Tablet, [facility] #[id number], Partial fill upon patient request if the [...] 01/01/22 15:56:00 EDT, Route to Pharmacy Electronically, [facility] #[id number], Partial fill upon patient request if the prescription is for a sched... Start Date: 01/01/22 Stop Date: 01/31/22 Status: Ordered Codeine 30mg/Acetaminophen 300mg Tablet 2 tablet, Tablet, By Mouth, Once, JAZLYN, 01/13/22 3:16:00 EDT, Stop date 01/13/22 3:16:00 EDT Start Date: 01/13/22 Stop Date: 01/13/22 Status: Completed Combivent Respimat 20 mcg-100 mcg/inh [...] 2 Refills, Maintenance, 01/01/22 15:54:00 EDT, Tablet, [facility] #[id number], Partial fill upon patient request if the prescription is for a schedule II opioid drug., 186, cm, 01/01/22 11:49:00 E... Start Date: 01/01/22 Stop Date: 01/31/22 Status: Ordered docusate sodium 100 mg oral capsule 100 mg, 1, capsule, By Mouth, 2 times a day, # 60 capsule, Refills 0, Tot. Refills 0, Maintenance, 06/20/21 23:57:00 EDT, Route to Pharmacy Electronically, [facility] #[id number], Partial fill upon patient request if the prescription is for a salima... Start Date: 06/20/21 Status: Ordered furosemide 40 mg oral tablet 80 mg, 2, tablet, By Mouth, Daily, # 14 tablet, Refills 1, Tot. Refills 1, Maintenance, 01/02/22 9:27:00 EDT, Route to Pharmacy Electronically, [facility] #[id number], Partial fill upon patient request if the prescription is for a schedule II opi... Start Date: 01/02/22 Stop Date: 01/16/22 Status: Ordered hydrOXYzine pamoate 25 mg oral capsule 2 capsule = 50 mg, By Mouth, 3 times a day, PRN Anxiety, for 7 days, # 30 capsule, 2 Refills, Acute01/22/22 15:54:00 EST, 01/01/22 15:54:00 EDT, Capsule, [facility] #[id number], Partial fill upon patient request if the prescription is for a sche... Start Date: 01/01/22 Stop Date: 01/22/22 Status: Ordered levothyroxine 0.05 mg oral tablet 1 tablet = 50 mcg, By Mouth, Daily, # 14 tablet, 1 Refills, Maintenance, 01/02/22 9:22:00 EDT, Tablet, [facility] #[id number], Partial fill upon patient request if the [...] 2 Refills, Maintenance, 01/01/22 15:54:00 EDT, Capsule, [facility] #[id number], Partial fill upon patient request if the [...] 01/02/22 9:33:00 EDT, Route to Pharmacy Electronically, [facility] #[id number], Partialfill upon patient request if the prescription [...] Range]: 1 2 3 Height 188 cm (01/13/22 4:03 AM) 188 cm (01/12/22 10:48 PM) Weight 100 kg (01/13/22 4:03 AM) 100 kg (01/12/22 10:48 PM) Oxygen Saturation [94-100 %] 98 % (01/13/22 4:03 AM) 95 % (01/12/22 10:48 PM) Pulse Rate [55-90 bpm] 75 bpm (01/13/22 4:03 AM) 90 bpm (01/12/22 10:48 PM) Body Mass Index [18.5-24.99 kg/m2] 28.29 kg/m2 *H* (01/13/22 4:03 AM) Blood Pressure [90-138/55-84 mm Hg] 124/75mm Hg (01/13/22 4:03 AM) 123/70mm Hg (01/12/22 10:48 PM) Respiratory Rate [16-30 br/min] 18 br/min (01/13/22 4:03 AM) 18 br/min (01/13/22 3:51 AM) 22 br/min (01/12/22 10:48 PM) Temperature [96.8-100.4 DegF] 98.3 DegF (01/13/22 4:03 AM) 98.4 DegF (01/12/22 11:12 PM) Mode of Delivery (Oxygen) Room air (01/13/22 4:03 AM) Room air (01/12/22 10:48 PM) Blood pressure sites Arm, right (01/13/22 4:03 AM) Temperature Route Oral (01/13/22 4:03 AM) Temporal (01/12/22 11:12 PM) Dry Weight 100 kg (01/13/22 4:03 AM) 100 kg (01/12/22 10:48 PM) Weight Obtained Via Patient/family state d (01/12/22 10:48 PM) Dry Weight Obtained Via Patient/family s tated (01/12/22 10:48 PM) Social History Social History Type Response [...] Code MRI Safety Implantable Status 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 [id number] Unknown [id number] 2 Unknown 03/11/21 Unknown Unknown Active GS1 Patient Care team information Personnel Name: Soto RAMIREZ MD, Bal Serrano Address: Address: [address] [place] [address]
--- OUTSIDE RECORDS SUMMARY | 2022-10-14 11:51 | XMS_ITS | Continuity of Care Document ---
Author Name Unknown Organization [facility] Address [address] [place] [address]- Care Team Providers Care Metal Painter Name Role Phone Soto RAMIREZ MD, Bal Serrano Primary Care Physician ( [phone] Encounter [facility] Date(s): 09/21/21 - 09/21/[address] [address]- Discharge Disposition: A-D/C Home Attending Physician: Michael Langley MD Admitting Physician: Michael Langley MD Referring Physician: Not on Staff, Referring MD Allergies, Adverse Reactions, Alerts Substance Reaction Severity Status Zoloft Active Thorazine Active ZyPREXA Active traZODone Active Immunizations Given [...] 23:55:00 EDT, Inhaler, Route to Pharmacy Electronically, [id number], [facility] #[id number], 182, cm, 06/20/21 23:10:00 EDT,... Start Date: 06/20/21 Status: Ordered amitriptyline 150 mg oral tablet 1 tablet = 150 mg, By Mouth, Daily at bedtime, # 5 tablet, 4 Refills, Maintenance, 07/11/21 11:18:00 EDT, Tablet, [facility] #[id number], Partial fill upon patient request if the prescription isfor a schedule II opioid drug., 182, cm, 06/20/21 2... Start Date: 07/11/21 Stop Date: 08/05/21 Status: Ordered ARIPiprazole 15 mg oral tablet 15 mg, 1, tablet, By Mouth, Daily, # 7 tablet, Refills 3, Tot. Refills 3, Maintenance, 07/14/21 11:18:00 EDT, Route to Pharmacy Electronically, [facility] #[id number], Partial fill upon patient request if the [...] 3 Refills, Maintenance, 07/14/21 11:19:00 EDT, Tablet, [facility] #[id number], Partial fill upon patient request if the [...] 06/20/21 23:55:00 EDT, Route to Pharmacy Electronically, [facility] #[id number], Partial fill upon patient request if the [...] 3 Refills, Maintenance, 07/14/21 11:19:00 EDT, Tablet, [facility] #[id number], Partial fill upon patient request if the prescription is for a schedule II opioid drug., 182, cm, 06/20/21 23:10:00 EDT... Start Date: 07/14/21 Stop Date: 08/11/21 Status: Ordered docusate sodium 100 mg oral capsule 100 mg, 1, capsule, By Mouth, 2 times a day, # 60 capsule, Refills 0, Tot. Refills 0, Maintenance, 06/20/21 23:57:00 EDT, Route to Pharmacy Electronically, [facility] #[id number], Partial fill upon patient request if the prescription is for a salima... Start Date: 06/20/21 Status: Ordered Flomax 0.4 mg oral capsule 0.4 mg, 1, capsule, By Mouth, Daily, # 30 capsule, Refills 0, Tot. Refills 0, Maintenance, 06/20/2222:57:00 EDT, Route to Pharmacy Electronically, [facility] #[id number], Partial fill upon patient request if the prescription is for a schedule II... Start Date: 06/20/21 Status: Ordered fluticasone 50 mcg/inh nasal spray 2 sprays, Nares, Both, 2 times a day, # 9.9 mL, 0 Refills, Maintenance, 11/15/18 14:21:09 EDT, [place], 2 sprays Nares, Both 2 times a [...] 09/08/21 5:22:00 EDT, Route to Pharmacy Electronically, [facility] #[id number], Partial fill upon patient request if the [...] oldest [Reference Range]: 1 Height 183 cm (09/21/21 1:57 PM) Weight 133 kg (09/21/21 1:57 PM) Oxygen Saturation [94-100 %] 95 % (09/21/21 1:36 PM) Pulse Rate [55-90 bpm] 118 bpm *H* (09/21/21 1:36 PM) Blood Pressure [90-138/55-84 mm Hg] 125/ 52mm Hg (09/21/21 1:36 PM) Respiratory Rate [16-30 br/min] 16 br/mi n (09/21/21 1:36 PM) Temperature [96.8-100.4 DegF] 97.9 DegF (09/21/21 1:36 PM) Mode of Delivery (Oxygen) Room air (09/21/21 1:36 PM) Blood pressure sites Arm, left (09/21/21 1:36 PM) Temperature Route Temporal (09/21/21 1:36 PM) Dry Weight 133 kg (09/21/21 1:57 PM) Weight Obtained Via Patient/family state d (09/21/21 1:57 PM) Dry Weight Obtained Via Patient/family s tated (09/21/21 1:57 PM) Social History Social History Type Response Smoking Status 10 or more cigarette s (1/2 pack or more)/day in last 30 days entered on: 06/10/21 Sex Medical Equipment Implanted Date:09/13/20Target Site:Abdomen Description Quantity MRI Company Model MESH VENTRALIGHT ECHO ELLIPS 4 - RACCOON ([id number]) 1 Bard Unknown HAYDEE:{01}[id number] Assigning Author ity:MAURICE
--- OUTSIDE RECORDS SUMMARY | 2022-10-14 11:51 | XMS_ITS | Continuity of Care Document ---
Author Name Unknown Organization [facility] Address [address] [place] [address]- Care Team Providers Care High Lead Yarder Name Role Phone Not on Staff, PCP Primary Care Physician Unavail able Encounter [facility] Date(s): 07/21/22 - 07/27/[address] [address]- Encounter Diagnosis Chronic pain syndrome(Final) - 07/21/22 Hypothyroidism(Final) - 07/21/22 Generalized anxiety disorder(Final) - 07/21/22 Bipolar disorder with depression(Final) - 07/21/22 Chest pain(Final) - 07/21/22 Discharge Disposition: Transfer to Psych Facility Attending Physician: Michael Langley MD Admitting Physician: Michael Langley MD Referring Physician: Ritu Urrutia MD Allergies, Adverse Reactions, Alerts Substance Reaction Severity Status Zoloft Active Thorazine Active traZODone Active ZyPREXA Active Immunizations Given and Recorded Vaccine Date Status Refusal Reason tetanus/diphtheria/pertussis, acel(Tdap) 04/09/22 Recorded tetanus/diphtheria/pertussis, acel(Tdap) 05/18/18 Recorded tetanus/diphtheria/pertussis, acel(Tdap) 12/19/16 Recorded [id number] 12y+ bivalent booster vax 02/11/22 Recorded SARS-CoV-2 (COVID-19) mRNA-1273 vaccine 05/01/21 R ecorded influenza virus vaccine, inactivated 01/11/21 Sandro rded influenza virus vaccine, inactivated 12/27/17 Sandro rded influenza virus vaccine, inactivated 04/28/16 Sandro rded SARS-CoV-2 (COVID-19) mRNA BNT-162b2 vac 09/19/20 Recorded SARS-CoV-2 (COVID-19) mRNA BNT-162b2 vac 08/29/20 Recorded tetanus-diphtheria toxoids (Td) 12/14/18 Recorded Medications acetaminophen-codeine 300 mg-30 mg oral tablet 2 tablet, Tablet, By Mouth, 07/27/22 6:00:00 EDT Start Date: 07/27/22 Stop Date: 07/27/22 Status: Completed ARIPiprazole 30 mg oral tablet 1 tablet = 30 mg, By Mouth, Daily, # 14 tablet, 1 Refills, Maintenance, 05/08/22 12:50:00 EST, Tablet, [facility][id number], Partial fill upon patient request if the prescription is for a schedule II opioid drug., 176yolanda, 05/08/22 7:19:00 EST,... Start Date: 05/08/22 Stop Date: 06/05/22 Status: Ordered benztropine 1 mg oral tablet 1 mg, 1, tablet, By Mouth, Daily, # 14 tablet, Refills 1, Tot. Refills 1, Maintenance, 05/08/22 12:50:00 EST, Route to Pharmacy Electronically, [facility] #[id number], Partial fill upon patient request if the prescription is for a schedule II opi... Start Date: 05/08/22 Stop Date: 06/05/22 Status: Ordered busPIRone 30 mg oral tablet 1 tablet = 30 mg, By Mouth, 2 times a day, # 28 tablet, 0 Refills, Maintenance, 05/08/22 12:59:00 EST, Tablet, [facility] #[id number], Partial fill upon patient request if the prescription is for a schedule II opioid drug., 176yolanda, 05/08/22 7:19... Start Date: 05/08/22 Stop Date: 05/22/22 Status: Ordered chlorproMAZINE 100 mg oral tablet = 100 mg, By Mouth, Daily at bedtime, # 14 tablet, 0 Refills, Maintenance, 05/08/22 12:52:00 EST, Tablet, [facility] #[id number], Partial fill upon patient request if the prescription is for a schedule II opioid drug., 176, yolanda, 05/08/22 7:19:00 E... Start Date: 05/08/22 Stop Date: 05/22/22 Status: Ordered chlorproMAZINE 50 mg oral tablet = 50 mg, By Mouth, Daily before lunch, # 14 tablet, 0 Refills, Maintenance, 05/08/22 12:51:00 EST, Tablet, [facility] #[id number], Partial fill upon patient request if the prescription is for a schedule II opioid drug., yolanda Go, 05/08/22 7:19:00... Start Date: 05/08/22 Stop Date: 05/22/22 Status: Ordered chlorproMAZINE 50 mg oral tablet 1 tablet = 50 mg, By Mouth, Daily in AM, # 180 tablet, 0 Refills, Maintenance, 05/08/22 12:53:00 EST, Tablet, [facility] #[id number], Partial fill upon patient request if the prescription is fora schedule II opioid drug., yolanda Go, 05/08/22 7:19:... Start Date: 05/08/22 Status: Ordered cloNIDine 0.2 mg oral tablet 0.2 mg, 1, tablet, By Mouth, 2 times a day, # 20 tablet, Refills 2, Tot. Refills 2, Maintenance, 01/01/22 15:56:00 EDT, Route to Pharmacy Electronically, [facility] #[id number], Partial fill upon patient request if the prescription is for a sched... Start Date: 01/01/22 Stop Date: 01/31/22 Status: Ordered divalproex sodium 500 mg oral enteric coated tablet 1 tablet = 500 mg, By Mouth, Daily in AM, # 14 tablet, 0 Refills, Maintenance, 05/08/22 12:49:00 EST, Tablet, [facility] #[id number], Partial fill upon patient request if the prescription is fora schedule II opioid drug., yolanda Go, 05/08/22 7:19:... Start Date: 05/08/22 Stop Date: 05/22/22 Status: Ordered divalproex sodium 500 mg oral enteric coated tablet 2 tablets, By Mouth, Daily at bedtime, # 28 tablet, 0 Refills, Maintenance, 05/08/22 12:49:00 EST, Tablet, [facility] #[id number], Partial fill upon patient request if the prescription is for a schedule II opioid drug., yolanda Go, 05/08/22 7:19:00... Start Date: 05/08/22 Stop Date: 05/22/22 Status: Ordered docusate sodium 100 mg oral capsule 100 mg, 1, capsule, By Mouth, 2 times a day, # 60 capsule, Refills 0, Tot. Refills 0, Maintenance, 06/20/21 23:57:00 EDT, Route to Pharmacy Electronically, [facility] #[id number], Partial fill upon patient request if the [...] AM, 0 Refills, Maintenance, 03/10/22 8:17:00 EST, [place], Partial fill upon patient request if the prescription is for a schedule II opioid drug. Start Date: 03/10/22 Status: Ordered furosemide 80 mg oral tablet 80 mg, 1, tablet, By Mouth, Daily, # 30 tablet, Refills 0, Maintenance, 04/19/22 23:10:00 EST, Partial fill upon patient request if the prescription is for a schedule II opioid drug. Start Date: 04/19/22 Status: Ordered indomethacin 25 mg oral capsule 50 mg, Capsule, By Mouth, 07/27/22 9:00:00 EDT Start Date: 07/27/22 Stop Date: 07/27/22 Status: Completed indomethacin 50 mg oral capsule 1 capsule = 50 mg, By Mouth, 3 times a day, PRN for arthritis, # 21 capsule, 0 Refills, Maintenance, 07/15/22 14:29:00 EDT, Capsule, [facility] #[id number], Partial fill upon patient request if the prescription is for a schedule II opioid drug.,... Start Date: 07/15/22 Stop Date: 07/22/22 Status: Ordered levothyroxine 0.05 mg oral tablet 1 tablet = 50 mcg, By Mouth, Daily, # 14 tablet, 1 Refills, Maintenance, 01/02/22 9:22:00 EDT, Tablet, [facility] #[id number], Partial fill upon patient request if the [...] Active 1Problem added by Discern Expert Results Radiology Reports * Exam Date Time Procedure Performing Provider Status 07/21/22 9:10 AM Chest Portable [address] ( Verified) Notes: (Chest Portable) Reason For Exam: Chest Pain;Other: RESULT: Chest Portable Chest Portable Hx of Present Illness: Pt presents with right leg pain x 12 hours. Pt researched symptoms on internet and is now concerned he may have a blood clot. Pt reports right sided chest pain after waking up concerned that someone was trying to break into his house; Reason: Other:; Chest Pain; Clinical Question(s): CHF COMPARISON: None. FINDINGS: LINES AND TUBES: Monitoring leads project over the chest. LUNGS AND PLEURA: Clear lungs. Normal pulmonary vascularity. No large pleural effusion. No pneumothorax. HEART, MEDIASTINUM AND WAYNE: Heart is normal in size. Normal mediastinal and hilar contour. BONES AND SOFT TISSUES: No acute abnormality. IMPRESSION: No acute abnormality. WSN: [id number] Ordering Physician: Ritu Urrutia Dictated By: Vik Mcqueen MD Dictated Date/Time: 07/21/22 9:16 am Reviewed By: Vik Mcqueen MD Signed By: Vik Mcqueen MD Signed Date/Time: 07/21/22 9:16 am Transcribed By: RAVINDER Transcribed Date/Time: 07/21/22 9:14 am Vital Signs Most recent to oldest [Reference Range]: 1 2 3 Height 185 cm (07/27/22 12:19 PM) 185 cm (07/26/22 6:53 AM) 185 cm (07/25/22 4:57 PM) Weight 120 kg (07/25/22 4:57 PM) 120 kg (07/25/22 10:08 AM) 120 kg (07/25/22 12:06 AM) Oxygen Saturation [94-100 %] 93 % *L* (07/27/22 12:29 PM) 91 % *L* (07/27/22 12:19 PM) 93 % *L* (07/27/22 4:00 AM) Pulse Rate [55-90 bpm] 88 bpm (07/27/22 12:19 PM) 108 bpm *H* (07/27/22 4:00 AM) 92 bpm *H* (07/26/22 8:00 PM) Body Mass Index [18.5-24.99 kg/m2] 35.06 kg/m2 *>HHI* (07/25/22 4:57 PM) 35.06 kg/m2 *>HHI* (07/25/22 10:08 AM) 35.06 kg/m2 *>HHI* (07/25/22 12:06 AM) Blood Pressure [90-138/55-84 mm Hg] 106/68mm Hg (07/27/22 12:19 PM) 123/71mm Hg (07/27/22 4:00 AM) 144/84mm Hg *H* (07/26/22 8:00 PM) Respiratory Rate [16-30 br/min] 20 br/min (07/27/22 12:19 PM) 16 br/min (07/27/22 9:23 AM) 16 br/min (07/27/22 9:23 AM) Temperature [96.8-100.4 DegF] 98.3 DegF (07/27/22 4:00 AM) 98.1 DegF (07/26/22 8:00 PM) 97.7 DegF (07/26/22 1:54 PM) Liters per Minute 0 L/min (07/27/22 12:19 PM) Mode of Delivery (Oxygen) Room air (07/27/22 12:29 PM) Room air (07/27/22 12:19 PM) Room air (07/27/22 4:00 AM) Blood pressure sites Arm, left (07/27/22 12:19 PM) Arm, left (07/27/22 4:00 AM) Arm, left (07/26/22 8:00 PM) Temperature Route Oral (07/27/22 4:00 AM) Oral (07/26/22 8:00 PM) Oral (07/26/22 1:54 PM) Dry Weight 120 kg (07/25/22 4:57 PM) 120 kg (07/25/22 10:08 AM) 120 kg (07/25/22 12:06 AM) Social History Social History Type Response [...] Code MRI Safety Implantable Status 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 [id number] Unknown [id number] 2 Unknown 03/11/21 Unknown Unknown Active GS1 Consult note * Efrain HENDERSON, Margy Soto: PERFORM Event Display: Consult Authored Date: [id number] Patient: ??VAHID TO ? Age:??42 Years?Sex:??Male?:??1980?? Chief Complaint/Reason for Consultation right leg pain x 12 hrs, researched on internet now concerned he may have a blood clot Mood d/o History of Present Illness Patient is a 42-year-old male with history of antisocial personality disorder, mood disorder admitted for concerns of?unspecified disturbances. Patient was?interviewed this afternoon, on interview patient reports vague complaints about??feeling the need to??stay in the hospital. ??Patient states he was discharged from [facility] few weeks ago but since he went home there have been lot of issues as people??in the neighborhood ??put restraining order on him and making him leave his apartment.?? Patient states people were complaining about him making noise and being disruptive in the surroundings.?? Patient however blames other people for not trying to understand his feelings.?? Patient states he can stay at his mother's place.?? Patient states he is stressed out at this time because of all the issues that are going on in regards to the apartment situation.?Patient states his mood is??a little overwhelmed, denies??feeling??hopeless or helpless, denies??feeling worthless. ??Patient??reports feeling irritable or agitated at times. ??Patient denies having racing thoughts, denies elevated mood or??energy levels,??reports?? feeling distracted at times. ??Patient states he feels the medications he is taking now are helpinghim to stay stable.?Patient states he does not feel the need to??change medications at this time. ??Patient denies active SI/HI, denies AH/VH.?? Patient denies having paranoid thoughts, does not present with any delusional thoughts. ??Patient states that he is sleeping okay and his appetite is fair. Objective Measurements?? Height: 185 cm (07/23/22) Weight: 120 kg (07/23/22) Dry Weight: 120 kg (07/23/22) Body Mass Index:??35.06 kg/m2??Critical (07/23/22) ? Vital Signs?? Temperature: 98 DegF (07/23/22 13:45:00) Temperature Route: Temporal (07/23/22 13:45:00) Pulse Rate: 90 bpm (07/23/22 13:45:00) Respiratory Rate: 16 br/min (07/23/22 13:45:00) Systolic Blood Pressure: 113 mm Hg (07/23/22 13:45:00) Diastolic Blood Pressure: 60 mm Hg (07/23/22 13:45:00) Blood pressure sites: Arm, right (07/23/22 13:45:00) Mean Arterial Pressure: 111 mm Hg (07/23/22 05:24:00) Pulse Pressure: 53 mm Hg (07/23/22 13:45:00) Oxygen Saturation: 97 % (07/23/22 13:45:00) Mode of Delivery (Oxygen): Room air (07/23/22 13:45:00) ? Intake/Output? No Data Available ?? Precautions No Precautions documented.? Physical Exam Appearance: casual.?? Attitude: cooperative.?? Motor activity: irritable at times.?? Mood: stressed, anxious.?? Affect: congruent.?? Speech: fluent, unimpaired.?? Perception: no AH/VH.?? Orientation: intact.?? Judgment: intact.?? Insight: intact.?? Thought process: goal directed.?? Thought content: no suicidal ideation.?? Compliance: fair.?? Reliability: good historian.?? Suicidality/self-destructive behavior: none.?? Homicidality/violence: none.?? Assessment/Plan Assessment:??Diagnosis: [place] 2 personality disorder, anti-social personality disorder Bipolar disorder unspecified. History of mood dysregulation with anger outbursts. h/o Alcohol use disorder. Cannabis use disorder severe. h/o Antisocial personality disorder. Patient is a 41-year-old male with history of [place] II personality disorder, bipolar disorder evaluated for concerns of safety for concerns of safety issues. On evaluation patient currently denies symptoms of mood disorder, denies feeling hopeless or helpless , denies SI/HI.?Patient states the medications are helping him to feel better and??would like to continue taking the medications??for now.??Patient issues seem to be??mainly because of??the housing issues at this time??and wants to come to the inpatient unit. Patient??can be admitted to the inpatient unit voluntarily. Patient??is currently not meeting criteria for mandated??admission on section 12??for inpatient services. Continue??medications for now or??including Abilify, Thorazine for mood stabilization and agitation. Continue Suboxone as well for MAT. ?? Discharge Planning:? Important Psychosocial and Contextual Factors?? Important Psychosocial and Contextual factors -- No patient assets and stressors documented during this encounter ?? Justification for Hospitalization Histories Allergies Allergies ?(Active and Proposed Allergies Only) Thorazine? (Severity: Unknown severity, Onset: Unknown) traZODone? (Severity: Unknown severity, Onset: Unknown) ZyPREXA? (Severity: Unknown severity, Onset: Unknown) Zoloft? (Severity: Unknown severity, Onset: Unknown) ? Past Medical History/Problem List Active Problems??(10) Allergic rhinitis Asthma Bipolar disorder with depression Chronic pain syndrome COVID-19 Encounter for medication refill Generalized anxiety disorder GERD (gastroesophageal reflux disease) Hypothyroidism Severe obesity (BMI 35.0-39.9) with comorbidity ? Social History Alcohol Details:??Use: Current. ??Frequency: Daily. ??Type: Beer. Employment/School Details:??Status: Unemployed. Exercise Details:??Self assessment: Poor condition. Home/Environment Details:??Living situation: Home/Independent. ??Lives with: Mother. Other Details:??Name: Legal. ??Details: History of multiple incarcerations; not currently on probation. Substance Abuse Details:??Use: Current. ??Type: Marijuana. ??Frequency: 1-2 times [...] (benztropine 1 mg oral tablet)?1?Milligram?1?tablet?By Mouth?Daily?for 14?Days Buprenorphine-Naloxone (Suboxone 8 mg-2 mg sublingual film)?2?Film?Sublingual?Daily BusPIRone (busPIRone 30 mg oral tablet)?1?tab(s)?30?Milligram?By Mouth?2 [...] Furosemide (furosemide 80 mg oral tablet)?80?Milligram?1?tablet?By Mouth?Daily Indomethacin (indomethacin 50 mg oral capsule)?1?capsule?50?Milligram?By Mouth?3 times a day?as needed?for arthritis?for 7?Days Levothyroxine (levothyroxine 0.05 mg oral tablet)?1?tab(s)?50?Microgram?By Mouth?Daily?for 14?Days Montelukast (Singulair)?10?Milligram?By Mouth?Daily Omeprazole (omeprazole 40 mg oral enteric coated capsule)?1?capsule?40?Milligram?By Mouth?Daily Pantoprazole (Protonix 20 mg oral delayed release tablet)?1?tab(s)?20?Milligram?By Mouth?Daily Pregabalin (pregabalin 200 mg oral capsule)?1?capsule?200?Milligram?By Mouth?2 times a day Tamsulosin (tamsulosin 0.4 mg oral capsule)?0.4?Milligram?1?capsule?By Mouth?Daily at bedtime Tizanidine?By Mouth ? Inpatient Medications Medications (25) Active SCHEDULED: (22) Acetaminophen 300 mg/Codeine 30 mg Tablet (acetaminophen-codeine 300 mg-30 mg oral tablet) ??2 tablet, By Mouth, Every 6 hours Aripiprazole 15 mg Tablet (ARIPiprazole 15 mg oral tablet) ??30 mg, By Mouth, Daily Bacitracin Topical 0.9 GM Ointment (UD) (Bacitracin Topical Oint) ??1 application, Topically, 4 times a day Benztropine 1 mg Tablet (benztropine 1 mg oral tablet) ??1 mg, By Mouth, Daily buprenorphine-naloxone 8 mg-2 mg Film (Suboxone 8 mg-2 mg Sublingual Film) ??2 film, Sublingual, Daily BusPIRone 10 mg Tablet (busPIRone 10 [...] oral tablet) ??10 mg, By Mouth, Daily Furosemide 40 mg Tablet (furosemide 40 mg oral tablet) ??80 mg, By Mouth, Daily Indomethacin 25 mg Capsule (indomethacin 25 mg oral capsule) ??50 mg, By Mouth, 3 times a day Levothyroxine 25 mcg Tablet (levothyroxine 0.025 mg oral tablet) ??50 mcg, By Mouth, Daily Lorazepam 1 mg Tablet (LORazepam 1 mg oral tablet) ??2 mg, By Mouth, Every 6 hours Montelukast 10 mg Tablet (montelukast 10 mg [...] 3 times a day CONTINUOUS: (0) PRN: (3) Al hydroxide/Mg hydroxide/simethicone 200 mg-200 mg-20 mg/5 mL Susp UD (Maalox Plus Liquid) ??30 mL, By Mouth, Every 8 hours Albuterol 90mcg/Inhalation Inhaler HFA (albuterol CFC free 90 mcg/inh inhalation aerosol) ??180 mcg2 puffs, Inhalation, Every 4 hours Ibuprofen 400 mg Tablet (Ibuprofen Tablet) ??400 mg, By Mouth, Every 8 hours ? Results Recent Labs VIROLOGY COVID-19 PCR Specimen Source NASAL ()?? 07/22/2022 20:03 COVID-19 PCR Result NEGATIVE ()?? 07/22/2022 20:03 ? EKG study * Event Display: ECG 12-Lead Authored Date: Please click on pdf link to open report * Event Display: ECG 12-Lead Authored Date: Ventricular Rate: 74 BPM Atrial Rate: 74 BPM P-R Interval: 160 ms QRS Duration: 96 ms Q-T Interval: 430 ms QTC Calculation(Bazett): 477 ms P [place]: 35 degrees R [place]: -15 degrees T [place]: 9 degrees Normal sinus rhythm Voltage criteria for left ventricular hypertrophy Abnormal ECG When compared with ECG of 12-MAY-2022 04:36, Vent. rate has decreased BY 42 BPM Confirmed by LORNE SEALS MD ([id number]) on 07/21/2022 8:45:09 PM [place]: ARNEL HENDERSON,[facility] Progress note * Mita Weinstein RN: SIGN, VERIFY, PERFORM Event Display: [facility] Authored Date: [id number] Patient: VAHID TO Age: 42 years Sex: Male : 1980 Associated Diagnoses: None Author: Mita Weinstein RN Findings Narrative/Incidental Patient medication compliant. Pacing throughout the shift, intermittently napping and when patient woke up he forgot he had taken his medications prior to sleeping and got agitated, this telegraphic typewriter mechanic showed him the MAR for medication administration times and patient was receptive to the information, apologizing to this telegraphic typewriter mechanic. Patient showered this AM.. * Mita Weinstein RN: MODIFY, SIGN, VERIFY, PERFORM Event Display: [facility] Authored Date: [id number] Patient: VAHID TO Age: 42 years Sex: Male : 1980 Associated Diagnoses: None Author: Mita Weinstein RN Findings Narrative/Incidental Patient alert and oriented x3. Medication compliant. Pacing throughout the morning/afternoon. No aggressive behaviors noted. Took a short nap late this afternoon. Patient noted to be singing in his room this evening. No SI/HI statements made.. Note * Kayli HENDERSON, Xavier Rodrigues: PERFORM Event Display: Patient Education Leaflets Authored Date: Bipolar Disorder ?? [id number] Bipolar Disorder Bipolar disorder is a serious, life-altering illness. It causes strong mood swings between depression and mi. It used to be called manic depression. The mood swings are different from the normal ups and downs people have in their lives. They are more severe and last longer. They can seriously interfere with work and relationships. These episodes are changes from usual moods and behavior. They can be mild, or drastic and explosive. The time between feelings of depression and mi varies with each person. It can be weeks, month, or even years. ??? In a manic episode, you may think fast and do things quickly. It may seem like you are getting a lot done. It may feel very good at first. But in the extreme, mi can lead to a lifestyle that is disorganized and chaotic. You may take part in risky behavior. Examples are spending sprees, sexual acting-out, or drug use. In later stages, you may have no interest in food. You may not be able tosleep for days at a time. Your speech may speed up and become hard to understand. You may appear toothers as if you are in your own world. ??? In a depressive episode, you may feel a lack of interest in normal activities. Sometimes you feel sadness or guilt without any clear reason. Your thinking may become slow. You may also lack energy or good concentration, or feel hopeless. Some people have thoughts of harming themselves at this stage. Thoughts can even turn to suicide. You may feel OK between these phases. This does not mean that the illness is gone. People with thisdisorder will often have to treat it all their life. Correct use of medicines and ongoing medical and mental health support can greatly ease symptoms. They can enhance your quality of life. The exact cause of bipolar disorder is unknown. But there is a genetic link that makes a person more likely to get it. Using illegal drugs such as speed (amphetamine) and cocaine raises a person's risk for this illness. Home care Here is what you can do at home: ??? Ongoing care and support can help you manage this disease. Find a healthcare provider and therapist who meet your needs. Seek help right away when you feel like you may be heading into either a manic episode or a depressive state. ??? Take your medicine as prescribed. Get regular blood work to check the levels of medicine in your body. Do this??even if you think you don???t need to do it. ??? Don't change or stop taking your medicine unless your healthcare provider says it is OK to do so. Don't share or use another person's medicines. ??? Tell all your healthcare providers about all the prescriptions, pjvu-gte-ssxvirg medicines, and supplements you take.? ?Certain supplements interact with medicines. They may cause dangerous side effects. You can also ask your pharmacist about medicine interactions before starting any new medicine or supplement. ??? Talk with your family and trusted friends about your thoughts and feelings. Ask them to help you notice behavior changes early. You can then get help and have your medicines adjusted, if needed. When you are feeling well, make a management plan for a trusted friend or family member to help you during hard times. For example, you can ask them to hold your credit cards for you if you overspend during a mi. Or they can get emergency help for you if your depression leads to suicidal thoughts. Ifyour illness is severe, consider giving trusted people access to your healthcare providers. They can then work together to keep you safe. ??? Don't drink alcohol or use illegal drugs. They can bring on an episode and make it worse. ??? If your life is severely affected by this illness, the Americans with Disabilities Act (ADA) may provide help. The ADA protects people with chronic physical and mental health problems. Contact your local ADA office for help if you are having trouble keeping jobs,managing workplace issues, or caring for yourself because of your bipolar disorder. The U.[place]. Department of Justice has a toll-free [employer] information line at 931-626-9453 (voice) or 035-261-7543 (TTY). It can help you find a local office. Or??go to www.[employer].gov for more information. ??? Join an in-person or virtual support group for people with mental health problems. ?? Follow-up care Follow up with your healthcare provider or therapist as advised. They can help you find ways to improve your life. ?? Call or text 988 When you call or text 988, you will be connected to trained crisis counselors at the Suicide Prevention Lifeline. An online chat option is also available. Lifeline is free and available 05/10. 988 counselors will work closely with 1 to get you the care you need. Call or text 988 if you have: ??? Suicidal thoughts, a plan to harm yourself, and the means to do so ??? Serious thoughts of hurting someone else ??? Trouble breathing ??? Confusion ??? Drowsiness ortrouble wakening ??? Fainting or loss of consciousness ??? Rapid heart rate, very low heart rate, or a new irregular heart rate ??? Seizure ??? New chest pain that becomes more severe, lasts longer, or spreads into your shoulder, arm, neck, jaw, or back ?? When to seek medical advice Call your healthcare provider right away if any of these happen: ??? Feeling like your symptoms aregetting worse (depression, agitation, or excessive energy) ??? Not eating or sleeping for more than48 hours ??? Feeling out of control (racing thoughts, paranoid thoughts, hallucinations, or poor concentration) ??? Feeling like you want to harm yourself or another ??? Being unable to care for yourself ?? Last Reviewed Date: 2021 ?? [employer]. All rights reserved. This information is not intended as a substitute for professional medical care. Always follow your healthcare professional's instructions. ?? * Ritu Urrutia MD: PERFORM, SIGN, VERIFY Event Display: Patient Education Handout Authored Date: [id number] Portable XR Chest Views * RADHASPowerscritrey , TAVARES S: TRANSCRIBE Vik Mcqueen MD: VERIFY Event Display: Result: Authored Date: Chest Portable Hx of Present Illness: Pt presents with right leg pain x 12 hours. Pt researched symptoms on internet and is now concerned he may have a blood clot. Pt reports right sided chest pain after waking up concerned that someone was trying to break into his house; Reason: Other:; Chest Pain; Clinical Question(s): CHF COMPARISON: None. FINDINGS: LINES AND TUBES: Monitoring leads project over the chest. LUNGS AND PLEURA: Clear lungs. Normal pulmonary vascularity. No large pleural effusion. No pneumothorax. HEART, MEDIASTINUM AND WAYNE: Heart is normal in size. Normal mediastinal and hilar contour. BONES AND SOFT TISSUES: No acute abnormality. IMPRESSION: No acute abnormality. WSN: [id number] Ordering Physician: Ritu Urrutia Dictated By: Vik Mcqueen MD Dictated Date/Time: 07/21/22 9:16 am Reviewed By: Vik Mcqueen MD Signed By: Vik Mcqueen MD Signed Date/Time: 07/21/22 9:16 am Transcribed By: RAVINDER Transcribed Date/Time: 07/21/22 9:14 am Patient Care team information Care Team Personnel Name: Konrad Gallegos RN Position: [facility] ED RN W/OE and Tasks Member Role: Primary Care Nurse Name: Niki Bright RN Position: S RN Member Role: Primary Care Nurse Name: Fang Che Position: [facility] RN Member Role: Primary Care Nurse Name: Trisha Alamo RN Position: [facility] RN Supv Member Role: Primary Care Nurse Name: Rita Son NP Position: [facility] Associate Professional Member Role: Primary Care Nurse Address: Address: [address] [facility] [place] [address]- [place] Name: Sol Chanel RN Position: [facility] RN Member Role: Primary Care Nurse Name: Trisha Beltrán RN Position: [facility] RN Supv Member Role: Primary Care Nurse Name: Helene Pérez RN Position: [facility] RN Member Role: Primary Care Nurse Name: Brenda Cuba RN Position: [facility] HBO Wound Member Role: Primary Care Nurse Name: Kell Alonso RN Position: [facility] RN Member Role: Primary Care Nurse Name: Faraz Barriga RN Position: [facility] RN Member Role: Primary Care Nurse Name: Richa Clay LPN Position: [facility] RN Member Role: Primary Care Nurse Name: Екатерина Chacko RN Position: [facility] RN Member Role: Primary Care Nurse Name: Anna Lackey RN Position: [facility] RN Member Role: Primary Care Nurse Name: Elizabeth Ha RN Position: [facility] RN Member Role: Primary Care Nurse Name: Not on Staff, PCP Position: [facility] Physician (General Medicine) Member Role: PCP Name: Anan Oconnor RN Position: [facility] Media Professional Member Role: Primary Care Nurse Name: Kip Gonzalez RN Position: [facility] RN Member Role: Primary Care Nurse Address: Address: [address] [place] [id number]- [place] Name: Anisha Hinds RN Position: [facility] RN Member Role: Primary Care Nurse Name: Sunitha Gutierrez RN Position: [facility] RN Member Role: Primary Care Nurse Name: April Acuña RN Position: [facility] RN Member Role: Primary Care Nurse Name: Li Esquivel RN Position: [facility] Media Professional Member Role: Primary Care Nurse Name: Tunde White MD Position: [facility] Psychiatry MD Member Role: Lifetime Consulting Physician Address: Address: [address] [place] [address]- [place] Name: Xavier Milan MD Position: [facility] ED Medicine MD Member Role: ED Attending Physician Address: Address: [address] [facility] [place] [address]- Name: Candida Elias RN Position: [facility] ED RN W/OE and Tasks Member Role: Patient Care Provider Name: Rafael Driver Position: [facility] ED TA [facility] Member Role: ED Associate Care Team Related Persons Name: FORREST TO Address: home [address] [place] [id number] Name: MÓNICA CREWS
--- OUTSIDE RECORDS SUMMARY | 2022-10-14 11:51 | XMS_ITS | Continuity of Care Document ---
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/pharmacy #[id number] Start Date: 02/13/19 Status: Ordered amitriptyline 100 mg oral tablet 1 tablet = 100 mg, By Mouth, Daily at bedtime, # 7 tablet, 3 Refills, Maintenance, 04/15/20 10:15:00 EST, Tablet, [facility] #[id number], Partial fill upon patient request if the prescription isfor a schedule II opioid drug., 183, cm, 04/15/20 0... Start Date: 04/15/20 Stop Date: 05/13/20 Status: Ordered amitriptyline 25 mg oral tablet 75 mg, 3, tablet, By Mouth, Daily, # 21 tablet, Refills 3, Tot. Refills 3, Maintenance, 04/13/20 14:55:00 EST, Route to Pharmacy Electronically, [facility] #[id number], Partial fill upon patientrequest if the prescription is for a schedule II op... Start Date: 04/13/20 Stop Date: 05/11/20 Status: Ordered baclofen 10 mg oral tablet 20 mg, 2, tablet, By Mouth, 2 times a day, # 56 tablet, Refills 1, Tot. Refills 1, Maintenance, 04/13/20 14:54:00 EST, Route to Pharmacy Electronically, [facility] #[id number], Partial fill uponpatient request if the prescription is for a schedu... Start Date: 04/13/20 Stop Date: 05/11/20 Status: Ordered busPIRone 15 mg oral tablet 1 tablet = 15 mg, By Mouth, 3 times a day, # 42 tablet, 1 Refills, Maintenance, 04/13/20 14:56:00 EST, Tablet, [facility] #[id number], Partial fill upon patient request if the prescription is for a schedule II opioid drug., 183, cm, 04/13/20 9:04... Start Date: 04/13/20 Stop Date: 05/11/20 Status: Ordered CeleBREX 100 mg oral capsule 1 capsule = 100 mg, By Mouth, 2 times a day, # 15 capsule, 0 Refills, Maintenance, 07/27/20 19:07:00 EDT, Capsule, [facility] #[id number], Partial fill upon patient request if the [...] mL, 0 Refills, Maintenance, 11/15/18 14:21:09 EDT, Lolita, 2 sprays Nares, Both 2 times a [...] 05/28/21 9:00:00 EDT, 05/28/20 15:55:00 EDT, Patch, [facility] #[id number], Partial fill upon patient request if the prescription is for aschedule II opioid drug., 1 patch Topically Daily,... Start Date: 05/28/20 Stop Date: 05/28/21 Status: Ordered propranolol 40 mg oral tablet 40 mg, 1, tablet, By Mouth, 2 times a day, # 28 tablet, Refills 1, Tot. Refills 1, Maintenance, 04/13/20 14:56:00 EST, Route to Pharmacy Electronically, [facility] #[id number], Partial fill uponpatient request if the prescription [...] 04/13/20 14:57:00 EST, Route to Pharmacy Electronically, [facility] #[id number], Partial fill upon patient request if the [...] 1 Refills, Maintenance, 04/13/20 14:55:00 EST, Tablet, [facility] #[id number], Partial fill upon patient request if the prescription is for a schedule II opioid drug., 183, cm, 04/13/20 9:0... Start Date: 04/13/20 Stop Date: 05/11/20 Status: Ordered traMADol 50 mg oral tablet 1 tablet = 50 mg, By Mouth, Every 12 hours, PRN for pain, # 10 tablet, 0 Refills, Maintenance, 07/27/20 19:15:00 EDT, Tablet, [facility] #[id number], Partial fill upon patient request if the [...]
--- OUTSIDE RECORDS SUMMARY | 2022-10-14 11:51 | XMS_ITS | Continuity of Care Document ---
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 Name Role Phone Soto RAMIREZ MD, Bal Serrano Primary Care Physician Encounter [facility] Date(s): 05/02/22 - 05/02/[address] [address]- Encounter Diagnosis Lower extremity pain(Final) - 05/02/22 Discharge Disposition: A-D/C Home Attending Physician: Lauri Patel MD Admitting Physician: Lauri Patel MD Referring Physician: Not on Staff, Referring MD Allergies, Adverse Reactions, Alerts Substance Reaction Severity Status Zoloft Active Thorazine Active traZODone Active ZyPREXA Active Immunizations Given and Recorded Vaccine Date Status Refusal Reason tetanus/diphtheria/pertussis, acel(Tdap) 04/09/22 Recorded tetanus/diphtheria/pertussis, acel(Tdap) 05/18/18 Recorded tetanus/diphtheria/pertussis, acel(Tdap) 12/19/16 Recorded [id number] 12y+ bivalent booster vax 02/11/22 Recorded SARS-CoV-2 [...] 1 Refills, Maintenance, 01/01/22 15:55:00 EDT, Tablet, [facility] #[id number], Partial fill upon patient request if the prescription is for a schedule II opioid drug., 186, cm, 01/01/22 11:49:00 EDT... Start Date: 01/01/22 Stop Date: 01/29/22 Status: Ordered benztropine 1 mg oral tablet 1 mg, 1, tablet, By Mouth, Daily, # 14 tablet, Refills 1, Tot. Refills 1, Maintenance, 01/01/22 15:54:00 EDT, Route to Pharmacy Electronically, [facility] #[id number], Partial fill upon patient request if the prescription is for a schedule II opi... Start Date: 01/01/22 Stop Date: 01/29/22 Status: Ordered busPIRone 15 mg oral tablet 1 tablet = 15 mg, By Mouth, 3 times a day, # 30 tablet, 2 Refills, Maintenance, 01/01/22 15:55:00 EDT, Tablet, [facility] #[id number], Partial fill upon patient request if the [...] 01/01/22 15:56:00 EDT, Route to Pharmacy Electronically, [facility] #[id number], Partial fill upon patient request if the [...] 06/20/21 23:57:00 EDT, Route to Pharmacy Electronically, [facility] #[id number], Partial fill upon patient request if the [...] AM, 0 Refills, Maintenance, 03/10/22 8:17:00 EST, [facility], Partial fill upon patient request if the [...] 1 Refills, Maintenance, 01/02/22 9:22:00 EDT, Tablet, [facility] #[id number], Partial fill upon patient request if the prescription is for a schedule II opioid drug., 186, cm, 01/02/22 8:00:00 EDT,... Start Date: 01/02/22 Stop Date: 01/30/22 Status: Ordered Methadone Tablet 30 mg, Tablet, By Mouth, Once, STAT, 05/02/22 20:16:00 EST, Stop date 05/02/22 20:16:00 EST Start Date: 05/02/22 Stop Date: 05/02/22 Status: Completed methocarbamol 750 mg oral tablet 1 tablet [...] Exam Date Time Procedure Performing Provider Status 05/02/22 10:16 PM Tibia/Fibula 2 Views Right Colin Suggs (Verified) Notes: (Tibia/Fibula 2 Views Right) Reason For Exam: with Pain;Trauma RESULT: Tibia/Fibula 2 Views Right Tibia/Fibula 2 Views Left, Tibia/Fibula 2 Views Right Hx of Present Illness: mco - BLLE swelling, recent fall with LLE wound, BL ankle pain, and I'm withdrawing from oxycodone and xanax ; Reason: Trauma; with Pain; Clinical Question(s): Fracture COMPARISON: None. TECHNIQUE: AP and lateral views of the tibia and fibula; AP and crosstable lateral views of the left knee. FINDINGS: No fractures or bone lesions. There is severe osteoarthritis of the lateral knee compartment with obliteration of the cartilage space, subchondral sclerosis, and prominent spurring particularly of the lateral femoral condyle. There is also mild to moderate spurring of the medial femoral condyle and medial tibial plateau with slight widening, recent resulting in a varus angulation at the knee. On the lateral view, there is evidence of a large knee joint effusion without fat fluid level. There are also several bony densities adjacent to the posterior aspect of the knee joint on the lateral view, concerning for loose bodies in addition to a fabella. The tibia and fibula are intact. Normal mortise alignment. There is moderate subcutaneous fatty edema and swelling of the lower extremity and there is moderate circumferential soft tissue swelling about the ankle. No evidence of radiopaque foreign matter or soft tissue gas. IMPRESSION: No evidence of fracture or dislocation. Large knee joint effusion. Severe lateral compartment osteoarthritis of the knee. Probable calcific loose bodies at the posterior aspect of the knee joint. Consider internal arrangement of the knee. No acute findings of the tibia or fibula. Widespread edema of the lower leg and diffuse soft tissue swelling of the ankle. WSN: [id number] Ordering Physician: Audrey Aden Dictated By: Darryl Brunner MD Dictated Date/Time: 05/02/22 10:32 p Reviewed By: Darryl Brunner MD Signed By: Darryl Brunner MD Signed Date/Time: 05/02/22 10:32 pm Transcribed By: RAVINDER Transcribed Date/Time: 05/02/22 10:28 pm * Exam Date Time Procedure Performing Provider Status 05/02/22 10:16 PM Tibia/Fibula 2 Views Left Colin Suggs (Verified) Notes: (Tibia/Fibula 2 Views Left) Reason For Exam: with Pain;Trauma RESULT: Tibia/Fibula 2 Views Left Tibia/Fibula 2 Views Left, Tibia/Fibula 2 Views Right Hx of Present Illness: mco - BLLE swelling, recent fall with LLE wound, BL ankle pain, and I'm withdrawing from oxycodone and xanax ; Reason: Trauma; with Pain; Clinical Question(s): Fracture COMPARISON: None. TECHNIQUE: AP and lateral views of the tibia and fibula; AP and crosstable lateral views of the left knee. FINDINGS: No fractures or bone lesions. There is severe osteoarthritis of the lateral knee compartment with obliteration of the cartilage space, subchondral sclerosis, and prominent spurring particularly of the lateral femoral condyle. There is also mild to moderate spurring of the medial femoral condyle and medial tibial plateau with slight widening, recent resulting in a varus angulation at the knee. On the lateral view, there is evidence of a large knee joint effusion without fat fluid level. There are also several bony densities adjacent to the posterior aspect of the knee joint on the lateral view, concerning for loose bodies in addition to a fabella. The tibia and fibula are intact. Normal mortise alignment. There is moderate subcutaneous fatty edema and swelling of the lower extremity and there is moderate circumferential soft tissue swelling about the ankle. No evidence of radiopaque foreign matter or soft tissue gas. IMPRESSION: No evidence of fracture or dislocation. Large knee joint effusion. Severe lateral compartment osteoarthritis of the knee. Probable calcific loose bodies at the posterior aspect of the knee joint. Consider internal arrangement of the knee. No acute findings of the tibia or fibula. Widespread edema of the lower leg and diffuse soft tissue swelling of the ankle. WSN: [id number] Ordering Physician: Audrey Aden Dictated By: Darryl Brunner MD Dictated Date/Time: 05/02/22 10:32 p Reviewed By: Darryl Brunner MD Signed By: Darryl Brunner MD Signed Date/Time: 05/02/22 10:32 pm Transcribed By: RAVINDER Transcribed Date/Time: 05/02/22 10:28 pm * Exam Date Time Procedure Performing Provider Status 05/02/22 10:16 PM Knee 1 or 2 Views Left Cristóbal Suggs; Auth (Verified) Notes: (Knee 1 or 2 Views Left) Reason For Exam: with Pain;Trauma RESULT: Knee 1 or 2 Views Left Knee 1 or 2 Views Left, 2 views Hx of Present Illness: mco - BLLE swelling, recent fall with LLE wound, BL ankle pain, and I'm withdrawing from oxycodone and xanax ; Reason: Trauma; with Pain; Clinical Question(s): Fracture COMPARISON: None. FINDINGS: No acute fracture. Severe osteoarthritis in the medial compartment. Large knee joint effusion. IMPRESSION: Large left knee joint effusion. WSN: [id number] Ordering Physician: Audrey Aden Dictated By: Carter Trent MD Dictated Date/Time: 05/02/22 10:25 p Reviewed By: Carter Trent MD Signed By: Carter Trent MD Signed Date/Time: 05/02/22 10:25 pm Transcribed By: RAVINDER Transcribed Date/Time: 05/02/22 10:24 pm * Exam Date Time Procedure Performing Provider Status 05/02/22 10:16 PM Knee 1 or 2 Views Right Colin Suggs; Auth (Verified) Notes: (Knee 1 or 2 Views Right) Reason For Exam: with Pain;Trauma RESULT: Knee 1 or 2 Views Right Knee 1 or 2 Views Right, 2 views Hx of Present Illness: mco - BLLE swelling, recent fall with LLE wound, BL ankle pain, and I'm withdrawing from oxycodone and xanax ; Reason: Trauma; with Pain; Clinical Question(s): Fracture COMPARISON: None. FINDINGS: No fracture or malalignment. Moderate knee joint effusion. Mild degenerative changes particularly in the medial compartment. IMPRESSION: Knee joint effusion without fracture. WSN: [id number] Ordering Physician: Audrey Aden Dictated By: Carter Trent MD Dictated Date/Time: 05/02/22 10:23 p Reviewed By: Carter Trent MD Signed By: Carter Trent MD Signed Date/Time: 05/02/22 10:23 pm Transcribed By: RAVINDER Transcribed Date/Time: 05/02/22 10:22 pm Vital Signs Most recent to oldest [Reference Range]: 1 2 3 Height 185 cm (05/02/22 6:44 PM) 185 cm (05/02/22 4:04 PM) 185 cm (05/02/22 4:00 PM) Weight 113.5 kg (05/02/22 4:04 PM) 113.5 kg (05/02/22 4:00 PM) Oxygen Saturation [94-100 %] 100 % (05/02/22 7:35 PM) 98 % (05/02/22 6:44 PM) 100 % (05/02/22 6:09 PM) Pulse Rate [55-90 bpm] 84 bpm (05/02/22 7:35 PM) 83 bpm (05/02/22 6:44 PM) 86 bpm (05/02/22 6:09 PM) Body Mass Index [18.5-24.99 kg/m2] 33.16 kg/m2 *>HHI* (05/02/22 4:00 PM) Blood Pressure [90-138/55-84 mm Hg] 119/71mm Hg (05/02/22 7:35 PM) 106/92mm Hg (05/02/22 6:44 PM) 106/59mm Hg (05/02/22 6:09 PM) Respiratory Rate [16-30 br/min] 20 br/min (05/02/22 8:19 PM) 18 br/min (05/02/22 7:35 PM) 18 br/min (05/02/22 6:44 PM) Temperature [96.8-100.4 DegF] 97.2 DegF (05/02/22 7:35 PM) 97.9 DegF (05/02/22 6:44 PM) 97.3 DegF (05/02/22 6:09 PM) Mode of Delivery (Oxygen) Room air (05/02/22 7:35 PM) Room air (05/02/22 6:44 PM) Room air (05/02/22 6:09 PM) Blood pressure sites Arm, right (05/02/22 7:35 PM) Arm, right (05/02/22 6:44 PM) Arm, left (05/02/22 6:09 PM) Temperature Route Oral (05/02/22 7:35 PM) Oral (05/02/22 6:44 PM) Oral (05/02/22 6:09 PM) Dry Weight 113.5 kg (05/02/22 4:04 PM) Weight Obtained Via Patient/family state d (05/02/22 4:00 PM) Dry Weight Obtained Via Patient/family s tated (05/02/22 4:04 PM) Social History Social History Type Response [...] Code MRI Safety Implantable Status 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 [id number] Unknown [id number] Unknown 03/11/21 Unknown Unknown Active GS1 Note * Keiko HENDERSON, Audrey: PERFORM Event Display: Patient Education Leaflets Authored Date: [id number] Methadone [facility] Follow Up ?? [address] [facility] ED Methadone Protocol ?? Methadone Discharge Instructions ??? Follow Up at [facility] You were started on methadone in the Emergency Department to control withdrawal symptoms to help you to enter a methadone treatment program for opioid use disorder. Methadone works by controlling the cravings and withdrawal symptoms that you would normally have if you stopped using opioids. However, like all medications, methadone has risks. Methadone can cause sleepiness and trouble breathing, similar to an opioid overdose. This usually happens when methadone is increased too quickly, or when methadone is combined with other drugs, such as heroin, alcohol or medications that cause sleepiness. Below are instructions and next steps. ?? When you get home: The dose of methadone you received in the Emergency Department will help to control withdrawal symptoms over the next 1-2 days. It is very important that you do not use drugs or alcohol while taking methadone. Using drugs or alcohol with the methadone can cause you to become too sleepy, stop breathing or . Also, if you are intoxicated on alcohol or appear too sleepy at the methadone clinic appointment, you may not receive your next day dose. ?? If your withdrawal symptoms are too strong and you don???t think you can make it to your methadone clinic appointment, you can return to the emergency department for treatment. If you feel you are forced to use drugs prior to your methadone clinic appointment, please use less than you normally use, in order to avoid an opioid overdose. Never use alone and always carry Narcan on you while using. Consider calling Never Use Alone at [phone]. ?? Tomorrow: Arrive at the [facility] at [address] [place] [address],??[place], [place] at 7AM The methadone clinic will see you as a walk-in appointment. Be prepared to stay longer on the first day, as they will need to complete admission paperwork. ?? Please bring all the following to the methadone clinic: 1) Your emergency department paperwork 2) A government photo ID and 3) Your sealed last dose letter. (Do not open the letter) ? Return to the Emergency??Department if: ??? Your withdrawal is severe and you don???t think you can make it to your methadone clinic appointment ??? If you were at your methadone clinic appointment but could not be seen or given your dose ??? You feel that you are too sleepy after taking your methadone. ?? Questions If you have any questions about methadone, your clinic appointment, or believe you are still feeling cravings to use heroin or other opioids or are experiencing withdrawal symptoms, please call the emergency department at the following numbers. Between 9:00am-4:00pm call [phone] to speak to the Follow Up Nurse. From 4:00pm 9:00am call [phone] to speak to an emergency department sales representative sales manager ? XR Knee - right 1 or 2 Views * [employer] , CIS S: TRANSCRIBE Carter Trent MD: VERIFY Event Display: Result: Authored Date: [id number] Knee 1 or 2 Views Right, 2 views Hx of Present Illness: mco - BLLE swelling, recent fall with LLE wound, BL ankle pain, and I'm withdrawing from oxycodone and xanax ; Reason: Trauma; with Pain; Clinical Question(s): Fracture COMPARISON: None. FINDINGS: No fracture or malalignment. Moderate knee joint effusion. Mild degenerative changes particularly in the medial compartment. IMPRESSION: Knee joint effusion without fracture. WSN: [id number] Ordering Physician: Audrey Aden Dictated By: Carter Trent MD Dictated Date/Time: 05/02/22 10:23 p Reviewed By: Carter Trent MD Signed By: Carter Trent MD Signed Date/Time: 05/02/22 10:23 pm Transcribed By: RAVINDER Transcribed Date/Time: 05/02/22 10:22 pm XR Knee - left 1 or 2 Views * [facility] , CIS S: TRANSCRIBE Carter Trent MD: VERIFY Event Display: Result: Authored Date: [id number] Knee 1 or 2 Views Left, 2 views Hx of Present Illness: mco - BLLE swelling, recent fall with LLE wound, BL ankle pain, and I'm withdrawing from oxycodone and xanax ; Reason: Trauma; with Pain; Clinical Question(s): Fracture COMPARISON: None. FINDINGS: No acute fracture. Severe osteoarthritis in the medial compartment. Large knee joint effusion. IMPRESSION: Large left knee joint effusion. WSN: [id number] Ordering Physician: Audrey Aden Dictated By: Carter Trent MD Dictated Date/Time: 05/02/22 10:25 p Reviewed By: Carter Trent MD Signed By: Carter Trent MD Signed Date/Time: 05/02/22 10:25 pm Transcribed By: RAVINDER Transcribed Date/Time: 05/02/22 10:24 pm XR Tibia and Fibula - right 2 Views * [facility]erscribe , CIS S: TRANSCRIBE Darryl Brunner MD: VERIFY Event Display: Result: Authored Date: Tibia/Fibula 2 Views Left, Tibia/Fibula 2 Views Right Hx of Present Illness: mco - BLLE swelling, recent fall with LLE wound, BL ankle pain, and I'm withdrawing from oxycodone and xanax ; Reason: Trauma; with Pain; Clinical Question(s): Fracture COMPARISON: None. TECHNIQUE: AP and lateral views of the tibia and fibula; AP and crosstable lateral views of the left knee. FINDINGS: No fractures or bone lesions. There is severe osteoarthritis of the lateral knee compartment with obliteration of the cartilage space, subchondral sclerosis, and prominent spurring particularly of the lateral femoral condyle. There is also mild to moderate spurring of the medial femoral condyle and medial tibial plateau with slight widening, recent resulting in a varus angulation at the knee. On the lateral view, there is evidence of a large knee joint effusion without fat fluid level. There are also several bony densities adjacent to the posterior aspect of the knee joint on the lateral view, concerning for loose bodies in addition to a fabella. The tibia and fibula are intact. Normal mortise alignment. There is moderate subcutaneous fatty edema and swelling of the lower extremity and there is moderate circumferential soft tissue swelling about the ankle. No evidence of radiopaque foreign matter or soft tissue gas. IMPRESSION: No evidence of fracture or dislocation. Large knee joint effusion. Severe lateral compartment osteoarthritis of the knee. Probable calcific loose bodies at the posterior aspect of the knee joint. Consider internal arrangement of the knee. No acute findings of the tibia or fibula. Widespread edema of the lower leg and diffuse soft tissue swelling of the ankle. WSN: [id number] Ordering Physician: Audrey Aden Dictated By: Darryl Brunner MD Dictated Date/Time: 05/02/22 10:32 p Reviewed By: Darryl Brunner MD Signed By: Darryl Brunner MD Signed Date/Time: 05/02/22 10:32 pm Transcribed By: RAVINDER Transcribed Date/Time: 05/02/22 10:28 pm XR Tibia and Fibula - left 2 Views * [facility]erscribe , CIS S: TRANSCRIBE Darryl Brunner MD: VERIFY Event Display: Result: Authored Date: Tibia/Fibula 2 Views Left, Tibia/Fibula 2 Views Right Hx of Present Illness: mco - BLLE swelling, recent fall with LLE wound, BL ankle pain, and I'm withdrawing from oxycodone and xanax ; Reason: Trauma; with Pain; Clinical Question(s): Fracture COMPARISON: None. TECHNIQUE: AP and lateral views of the tibia and fibula; AP and crosstable lateral views of the left knee. FINDINGS: No fractures or bone lesions. There is severe osteoarthritis of the lateral knee compartment with obliteration of the cartilage space, subchondral sclerosis, and prominent spurring particularly of the lateral femoral condyle. There is also mild to moderate spurring of the medial femoral condyle and medial tibial plateau with slight widening, recent resulting in a varus angulation at the knee. On the lateral view, there is evidence of a large knee joint effusion without fat fluid level. There are also several bony densities adjacent to the posterior aspect of the knee joint on the lateral view, concerning for loose bodies in addition to a fabella. The tibia and fibula are intact. Normal mortise alignment. There is moderate subcutaneous fatty edema and swelling of the lower extremity and there is moderate circumferential soft tissue swelling about the ankle. No evidence of radiopaque foreign matter or soft tissue gas. IMPRESSION: No evidence of fracture or dislocation. Large knee joint effusion. Severe lateral compartment osteoarthritis of the knee. Probable calcific loose bodies at the posterior aspect of the knee joint. Consider internal arrangement of the knee. No acute findings of the tibia or fibula. Widespread edema of the lower leg and diffuse soft tissue swelling of the ankle. WSN: [id number] Ordering Physician: Audrey Aden Dictated By: Darryl Brunner MD Dictated Date/Time: 05/02/22 10:32 p Reviewed By: Darryl Brunner MD Signed By: Darryl Brunner MD Signed Date/Time: 05/02/22 10:32 pm Transcribed By: RAVINDER Transcribed Date/Time: 05/02/22 10:28 pm Patient Care team information Care Team Personnel Name: Konrad Gallegos RN Position: [facility] RN W/OE and Tasks Member Role: Primary Care Nurse Name: Trisha Alamo RN Position: [facility] RN Supv Member Role: Primary Care Nurse Name: iRta Son NP Position: [facility] Associate Professional Member Role: Primary Care Nurse Address: Address: [address] [place] [id number]- [place] Name: Sol Chanel RN Position: [place] [...] Care Nurse Name: Brenda Cuba RN Position: [facility] Wound Member Role: Primary Care Nurse Name: Faraz Barriga RN Position: [facility] RN Member Role: Primary Care Nurse Name: Екатерина Chacko RN Position: [facility] RN Member Role: Primary Care Nurse Name: Anna Lackey RN Position: [facility] RN Member Role: Primary Care Nurse Name: Anna Oconnor RN Position: [facility] Claim Benefit Specialist Member Role: Primary Care Nurse Name: Kip Gonzalez RN Position: [facility] RN Member Role: Primary Care Nurse Address: Address: [address] [place] [id number]- [place] Name: Kari Grijalva RN Position: [facility] RN Member Role: Primary Care Nurse Name: Sunitha Gutierrez RN Position: [facility] RN Member Role: Primary Care Nurse Name: April Acuña RN Position: [facility] RN Member Role: Primary Care Nurse Name: Li Esquivel RN Position: [facility] Claim Benefit Specialist Member Role: Primary Care Nurse Name: Soto RAMIREZ MD, James C Position: [facility] Outreach Member Role: PCP Address: Address: [address] [place] [phone] [place] Name: Tunde White MD Position: [facility] Psychiatry MD Member Role: Lifetime Consulting Physician Address: Address: [address] [place] [phone]- [place] Name: Margaret Reynolds Position: [facility] ED TA [facility] Member Role: Continuing Education Instructor Name: Lauri Patel MD Position: [facility] Resident Member Role: Admitting Physician Address: Address: [address] [place] [phone] [place] Name: Audrey Aden MD Position: [facility] Resident Member Role: ED Resident Address: Address: [address] [place] [address] [place] [address]- Name: [facility] Position: [facility] ED RN W/OE and Tasks Member Role: Patient Care Provider Care Team Related Persons Name: YOUSUF FORREST Address: [address] [place] [address] Name: MÓNICA CREWS
--- OUTSIDE RECORDS SUMMARY | 2022-10-14 11:51 | XMS_ITS | Continuity of Care Document ---
Author Name Unknown Organization [facility] Address [address] [place] [address]- Care Team Providers Care Web Engineer Name Role Phone Soto RAMIREZ MD, aBl Serrano Primary Care Physician Encounter [facility] Date(s): 08/24/21 - 08/24/[address] [address]- Discharge Disposition: A-D/C Walkout Attending Physician: Doris HENDERSON, Lizett Quispe Admitting [...] 23:55:00 EDT, Inhaler, Route to Pharmacy Electronically, [id number], [facility] #[id number], [address], 06/20/21 23:10:00 EDT,... Start Date: 06/20/21 Status: Ordered amitriptyline 150 mg oral tablet 1 tablet = 150 mg, By Mouth, Daily at bedtime, # 5 tablet, 4 Refills, Maintenance, 07/11/21 11:18:00 EDT, Tablet, [facility] #[id number], Partial fill upon patient request if the prescription isfor a schedule II opioid drug., 182, cm, 06/20/21 2... Start Date: 07/11/21 Stop Date: 08/05/21 Status: Ordered ARIPiprazole 15 mg oral tablet 15 mg, 1, tablet, By Mouth, Daily, # 7 tablet, Refills 3, Tot. Refills 3, Maintenance, 07/14/21 11:18:00 EDT, Route to Pharmacy Electronically, [facility] #[id number], Partial fill upon patient request if the [...] 3 Refills, Maintenance, 07/14/21 11:19:00 EDT, Tablet, [facility] #[id number], Partial fill upon patient request if the [...] 06/20/21 23:55:00 EDT, Route to Pharmacy Electronically, [facility] #[id number], Partial fill upon patient request if the [...] 3 Refills, Maintenance, 07/14/21 11:19:00 EDT, Tablet, [facility] #[id number], Partial fill upon patient request if the prescription is for a schedule II opioid drug., 182, cm, 06/20/21 23:10:00 EDT... Start Date: 07/14/21 Stop Date: 08/11/21 Status: Ordered docusate sodium 100 mg oral capsule 100 mg, 1, capsule, By Mouth, 2 times a day, # 60 capsule, Refills 0, Tot. Refills 0, Maintenance, 06/20/21 23:57:00 EDT, Route to Pharmacy Electronically, [facility] #[id number], Partial fill upon patient request if the prescription is for a salima... Start Date: 06/20/21 Status: Ordered Flomax 0.4 mg oral capsule 0.4 mg, 1, capsule, By Mouth, Daily, # 30 capsule, Refills 0, Tot. Refills 0, Maintenance, 06/20/2222:57:00 EDT, Route to Pharmacy Electronically, [facility] #[id number], Partial fill upon patient request if the prescription is for a schedule II... Start Date: 06/20/21 Status: Ordered fluticasone 50 mcg/inh nasal spray 2 sprays, Nares, Both, 2 times a day, # 9.9 mL, 0 Refills, Maintenance, 11/15/18 14:21:09 EDT, [place], 2 sprays Nares, Both 2 times a day Start Date: 11/15/18 Status: Ordered furosemide 40 mg oral tablet 40 mg, 1, tablet, By Mouth, Daily, # 7 tablet, Refills 0, Tot. Refills 0, Maintenance, 06/23/21 11:19:00 EDT, Route to Pharmacy Electronically, [facility] #[id number], Partial fill upon patient request if the [...] 07/14/21 11:19:00 EDT, Route to Pharmacy Electronically, [facility] #[id number], Partial fill upon patient request if the [...] oldest [Reference Range]: 1 Height 183 cm (08/24/21 3:47 AM) Weight 136.1 kg (08/24/21 3:47 AM) Oxygen Saturation [94-100 %] 100 % (08/24/21 3:47 AM) Pulse Rate [55-90 bpm] 63 bpm (08/24/21 3:47 AM) Blood Pressure [90-138/55-84 mm Hg] 102/ 53mm Hg (08/24/21 3:47 AM) Respiratory Rate [16-30 br/min] 18 br/mi n (08/24/21 3:47 AM) Temperature [96.8-100.4 DegF] 97.6 DegF (08/24/21 3:47 AM) Mode of Delivery (Oxygen) Room air (08/24/21 3:47 AM) Blood pressure sites Arm, left (08/24/21 3:47 AM) Temperature Route Oral (08/24/21 3:47 AM) Dry Weight 136.1 kg (08/24/21 3:47 AM) Weight Obtained Via Patient/family state d (08/24/21 3:47 AM) Dry Weight Obtained Via Patient/family s tated (08/24/21 3:47 AM) Social History Social History Type Response Smoking Status 10 or more cigarette s (1/2 pack or more)/day in last 30 days entered on: 06/10/21 Sex Medical Equipment Implanted Date:09/13/20Target Site:Abdomen Description Quantity MRI Company Model MESH VENTRALIGHT ECHO ELLIPS 4 - BARD ([id number]) 1 Bard Unknown HAYDEE:{01}[id number] Assigning Author ity:FDA
--- OUTSIDE RECORDS SUMMARY | 2022-10-14 11:51 | XMS_ITS | Continuity of Care Document ---
Author Name Unknown Organization [facility] Address [address] [place] [address]- Care Team Providers Care Sand Cutter Operator Name Role Phone Elijah Gibbons MD Primary Care Physician [id number] Date(s): 05/16/19 - 07/06/19 [facility] [address] [place] [address]- [facility] Attending Physician: Cassandra Call DO Allergies, Adverse Reactions, Alerts Substance Reaction Severity Status Zoloft Active Thorazine Active traZODone Active ZyPREXA Active PROzac Active SEROquel Active Medications albuterol CFC free 90 mcg/inh inhalation aerosol 2, puffs, Inhalation, Every 4 hours, PRN, # 18 Gm, Refills 3, Tot. Refills 3, Maintenance, 02/13/1911:48:23 EST, Aerosol, Route to Pharmacy Electronically, [id number], [facility]/pharmacy #1111 Start Date: 02/13/19 Status: [...] Refills, Maintenance, 02/28/19 12:11:45 EST, EC Tablet, [facility]/pharmacy #1111, 183, cm, 02/28/19 11:39:08 [...] Maintenance, 198:58:23 EST, Route to Pharmacy Electronically, [id number], [facility]/pharmacy #1111, 183, cm, 02/17/19 8:22:07 EST, Height, 127, kg... Start Date: 02/17/19 Status: Ordered fluticasone 50 mcg/inh nasal spray 2 sprays, Nares, Both, 2 times a day, # 9.9 mL, 0 Refills, Maintenance, 11/15/18 14:21:09 EDT, [place], 2 sprays Nares, Both 2 times a day Start Date: 11/15/18 Status: Ordered gabapentin 100 mg oral capsule 100 mg, 1, capsule, By Mouth, Daily at bedtime, # 30 capsule, Refills 0, Tot. Refills 0, Maintenance, 02/28/19 12:13:04 EST, Route to Pharmacy Electronically, [facility]/pharmacy #1111, 183, cm, 02/28/19 11:39:08 [...]
--- OUTSIDE RECORDS SUMMARY | 2022-10-14 11:51 | XMS_ITS | Continuity of Care Document ---
Author Name Unknown Organization [facility] Address [address] [place] [address]- Care Team Providers Care Early Childhood Worker Name Role Phone Soto RAMIREZ MD, Bal Serrano Primary Care Physician ( [phone] Encounter [facility] Date(s): 02/15/21 - 02/15/[address] [address]- Discharge Disposition: A-D/C Home Attending Physician: Triston [...] 02/13/1911:48:23 EST, Aerosol, Route to Pharmacy Electronically, [id number], [facility]/pharmacy #1111 Start Date: 02/13/19 Status: Ordered amitriptyline 100 mg oral tablet 1 tablet = 100 mg, By Mouth, Daily at bedtime, # 7 tablet, 3 Refills, Maintenance, 04/15/20 10:15:00 EST, Tablet, [facility] #[id number], Partial fill upon patient request if the prescription isfor a schedule II opioid drug., 183, cm, 04/15/20 0... Start Date: 04/15/20 Stop Date: 05/13/20 Status: Ordered amitriptyline 25 mg oral tablet 75 mg, 3, tablet, By Mouth, Daily, # 21 tablet, Refills 3, Tot. Refills 3, Maintenance, 04/13/20 14:55:00 EST, Route to Pharmacy Electronically, [facility] #[id number], Partial fill upon patientrequest if the prescription is for a schedule II op... Start Date: 04/13/20 Stop Date: 05/11/20 Status: Ordered busPIRone 15 mg oral tablet 1 tablet = 15 mg, By Mouth, 3 times a day, # 42 tablet, 1 Refills, Maintenance, 04/13/20 14:56:00 EST, Tablet, [facility] #[id number], Partial fill upon patient request if the [...] 09/13/20 14:45:00 EDT, Route to Pharmacy Electronically, [facility] #[id number], Partial fill upon patient request if the [...] Maintenance, 10/22/2121:52:00 EDT, Route to Pharmacy Electronically, [facility] #[id number], Partial fill upon patient request if the prescription is for a schedule II... Start Date: 10/22/20 Status: Ordered fluticasone 50 mcg/inh nasal spray 2 sprays, Nares, Both, 2 times a day, # 9.9 mL, 0 Refills, Maintenance, 11/15/18 14:21:09 EDT, [place], 2 sprays Nares, Both 2 times a [...] 0 Refills, Maintenance, 01/07/21 18:42:00 EDT, Tablet, [facility] #[id number], Partial fill upon patient request if the [...] 05/28/21 9:00:00 EDT, 05/28/20 15:55:00 EDT, Patch, [facility] #[id number], Partial fill upon patient request if the [...] 04/13/20 14:57:00 EST, Route to Pharmacy Electronically, [facility] #51738, Partial fill upon patient request if the [...] 0 Refills, Maintenance, 07/27/20 19:15:00 EDT, Tablet, [facility] #[id number], Partial fill upon patient request if the [...] Exam Date Time Procedure Performing Provider Status 02/15/21 2:51 PM Chest 2 Views Frontal and Lat Valladares , T huthao T; Auth (Verified) Notes: (Chest 2 Views Frontal and Lat) Reason For Exam: Shortness of Breath RESULT: Chest 2 Views Frontal and Lat Chest 2 Views Frontal and Lat Hx of Present Illness: SOB while walking down street to get cigarettes per ems; pt with hx asthma copd, sp02 100% RA att, respiraitons unlabored, no distress; Reason: Shortness of Breath; Clinical Question(s): Pneumonia COMPARISON: None. FINDINGS: LINES AND TUBES: None. LUNGS AND PLEURA: The lungs are hypoinflated with resultant bronchovascular crowding and bibasilar atelectasis. No pleural effusion. No pneumothorax. HEART, MEDIASTINUM AND WAYNE: Heart is normal in size. Normal upper mediastinal and hilar contour. BONES AND SOFT TISSUES: No acute abnormality. IMPRESSION: Low lung volumes with bibasilar atelectasis. Otherwise no evidence of acute cardiopulmonary disease. WSN: [id number] Ordering Physician: Triston Saravia Dictated By: Kell Ramirez MD Dictated Date/Time: 02/15/21 3:22 pm Reviewed By: Kell Rmairez MD Signed By: Kell Ramirez MD Signed Date/Time: 02/15/21 3:22 pm Transcribed By: RAVINDER Transcribed Date/Time: 02/15/21 3:19 pm Vital Signs Most recent to oldest [Reference Range]: 1 2 Height 182 cm (02/15/21 4:13 PM) 182 cm (02/15/21 2:20 PM) Weight 150 kg (02/15/21 2:20 PM) Oxygen Saturation [94-100 %] 100 % (02/15/21 4:13 PM) 100 % (02/15/21 2:20 PM) Pulse Rate [55-90 bpm] 78 bpm (02/15/21 4:13 PM) 78 bpm (02/15/21 2:20 PM) Blood Pressure [90-138/55-84 mm Hg] 132/ 93mm Hg (02/15/21 4:13 PM) 128/100mm Hg (02/15/21 2:20 PM) Respiratory Rate [16-30 br/min] 16 br/mi n (02/15/21 4:13 PM) 18 br/min (02/15/21 2:20 PM) Temperature [96.8-100.4 DegF] 98.2 DegF (02/15/21 4:13 PM) 97.8 DegF (02/15/21 2:20 PM) Mode of Delivery (Oxygen) Room air (02/15/21 4:13 PM) Room air (02/15/21 2:20 PM) Blood pressure sites Arm, left (02/15/21 4:13 PM) Arm, left (02/15/21 2:20 PM) Temperature Route Oral (02/15/21 4:13 PM) Oral (02/15/21 2:20 PM) Dry Weight 150 kg (02/15/21 2:20 PM) Weight Obtained Via Patient/family state d (02/15/21 2:20 PM) Dry Weight Obtained Via Patient/family s tated (02/15/21 2:20 PM) Social History Social History Type Response Tobacco Use: 1PPD. Sex Medical Equipment Implanted Date:09/13/20Target Site:Abdomen Description Quantity MRI Company Model MESH VENTRALIGHT ECHO ELLIPS 4 - BARD ([id number]) 1 Bard Unknown HAYDEE:{01}[id number] Assigning Author ity:FDA
--- OUTSIDE RECORDS SUMMARY | 2022-10-14 11:51 | XMS_ITS | Continuity of Care Document ---
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 Refills 3, Maintenance, 02/13/1911:48:23 EST, Aerosol, Route to Pharmacy Electronically, [id number], [facility]1111 Start Date: 02/13/19 Status: Ordered [...] Refills, Maintenance, 02/28/19 12:11:45 EST, EC Tablet, [facility]/pharmacy #1111, 183, cm, 02/28/19 [...] Maintenance, 198:58:23 EST, Route to Pharmacy Electronically, [id number], [facility]/pharmacy #1111, 183, cm, 02/17/19 8:22:07 EST, Height, 127, kg... Start Date: 02/17/19 Status: Ordered fluticasone 50 mcg/inh nasal spray 2 sprays, Nares, Both, 2 times a day, # 9.9 mL, 0 Refills, Maintenance, 11/15/18 14:21:09 EDT, [place], 2 sprays Nares, Both 2 times a day Start Date: 11/15/18 Status: Ordered gabapentin 100 mg oral capsule 100 mg, 1, capsule, By Mouth, Daily at bedtime, # 30 capsule, Refills 0, Tot. Refills 0, Maintenance, 02/28/19 12:13:04 EST, Route to Pharmacy Electronically, [facility]/pharmacy #1111, 183, cm, 02/28/19 [...]
--- OUTSIDE RECORDS SUMMARY | 2022-10-14 11:51 | XMS_ITS | Continuity of Care Document ---
Author Name Unknown Organization [facility] Address [address] [place] [address]- Care Team Providers Care Management Engineer Name Role Phone Soto RAMIREZ MD, Bal Serrano Primary Care Physician ( [phone] Encounter [facility] Date(s): 01/18/21 - 01/19/[address] [address]- Discharge Disposition: A-D/C Mcfp, Halfway, or Intermediate Fac Attending Physician: Konrad Dorsey MD Admitting Physician: [...] 02/13/1911:48:23 EST, Aerosol, Route to Pharmacy Electronically, [id number], [facility]/pharmacy #1111 Start Date: 02/13/19 Status: Ordered Ambien [...] 3 Refills, Maintenance, 04/15/20 10:15:00 EST, Tablet, [facility] #[id number], Partial fill upon patient request if the prescription isfor a schedule II opioid drug., 183, cm, 04/15/20 0... Start Date: 04/15/20 Stop Date: 05/13/20 Status: Ordered amitriptyline 25 mg oral tablet 75 mg, 3, tablet, By Mouth, Daily, # 21 tablet, Refills 3, Tot. Refills 3, Maintenance, 04/13/20 14:55:00 EST, Route to Pharmacy Electronically, [facility] #[id number], Partial fill upon patientrequest if the prescription is for a schedule II op... Start Date: 04/13/20 Stop Date: 05/11/20 Status: Ordered baclofen 10 mg oral tablet 20 mg, 2, tablet, By Mouth, 2 times a day, # 56 tablet, Refills 1, Tot. Refills 1, Maintenance, 04/13/20 14:54:00 EST, Route to Pharmacy Electronically, [facility] #[id number], Partial fill uponpatient request if the prescription is for a schedu... Start Date: 04/13/20 Stop Date: 05/11/20 Status: Ordered busPIRone 15 mg oral tablet 1 tablet = 15 mg, By Mouth, 3 times a day, # 42 tablet, 1 Refills, Maintenance, 04/13/20 14:56:00 EST, Tablet, [facility] #[id number], Partial fill upon patient request if the prescription is for a schedule II opioid drug., 183, cm, 04/13/20 9:04... Start Date: 04/13/20 Stop Date: 05/11/20 Status: Ordered cloNIDine 0.1 mg oral tablet 0.1 mg, 1, tablet, By Mouth, 2 times a day, # 10 tablet, Refills 0, Tot. Refills 0, Maintenance, 10/22/20 15:02:00 EDT, Route to Pharmacy Electronically, [facility] #[id number], Partial fill upon patient request if the [...] 09/13/20 14:45:00 EDT, Route to Pharmacy Electronically, [facility] #[id number], Partial fill upon patient request if the prescription is for a salima... Start Date: 09/13/20 Status: Ordered doxycycline monohydrate 100 mg oral capsule 1 capsule = 100 mg, By Mouth, 2 times a day, for 7 days, # 14 capsule, 0 Refills, Acute 01/20/21 17:48:00 EST, 01/13/21 17:48:00 EDT, Capsule, [facility] #[id number], Partial fill upon patient request if the prescription is for a schedule II opio... Start Date: 01/13/21 Stop Date: 01/20/21 Status: Ordered Flomax 0.4 mg oral capsule 0.4 mg, 1, capsule, By Mouth, Daily, # 30 capsule, Refills 0, Tot. Refills 0, Maintenance, 10/22/2121:52:00 EDT, Route to Pharmacy Electronically, [facility] #[id number], Partial fill upon patient request if the prescription is for a schedule II... Start Date: 10/22/20 Status: Ordered fluticasone 50 mcg/inh nasal spray 2 sprays, Nares, Both, 2 times a day, # 9.9 mL, 0 Refills, Maintenance, 11/15/18 14:21:09 EDT, [place], 2 sprays Nares, Both 2 times a [...] 0 Refills, Maintenance, 01/07/21 18:42:00 EDT, Tablet, [facility] #[id number], Partial fill upon patient request if the prescription is for a schedule II opioid drug., 183, cm, 01/07/21 17:... Start Date: 01/07/21 Status: Ordered nicotine 14 mg/24 hr transdermal film, extended release 1 patch, Topically, Daily, # 30 patch, 0 Refills, Acute 05/28/21 9:00:00 EDT, 05/28/20 15:55:00 EDT, Patch, [facility] #[id number], Partial fill upon patient request if the prescription is for aschedule II opioid drug., 1 patch Topically Daily,... Start Date: 05/28/20 Stop Date: 05/28/21 Status: Ordered propranolol 40 mg oral tablet 40 mg, 1, tablet, By Mouth, 2 times a day, # 28 tablet, Refills 1, Tot. Refills 1, Maintenance, 04/13/20 14:56:00 EST, Route to Pharmacy Electronically, [facility] #[id number], Partial fill uponpatient request if the prescription [...] 04/13/20 14:57:00 EST, Route to Pharmacy Electronically, [facility] #[id number], Partial fill upon patient request if the [...] 0 Refills, Maintenance, 07/27/20 19:15:00 EDT, Tablet, [facility] #[id number], Partial fill upon patient request if the [...] oldest [Reference Range]: 1 Height 184 cm (01/18/21 11:11 PM) Weight 149 kg (01/18/21 11:11 PM) Oxygen Saturation [94-100 %] 95 % (01/18/21 11:11 PM) Pulse Rate [55-90 bpm] 75 bpm (01/18/21 11:11 PM) Blood Pressure [90-138/55-84 mm Hg] 140/ 92mm Hg *H* (01/18/21 11:11 PM) Respiratory Rate [16-30 br/min] 19 br/mi n (01/18/21 11:11 PM) Temperature [96.8-100.4 DegF] 98.5 DegF (01/18/21 11:11 PM) Mode of Delivery (Oxygen) Nasal cannula (01/18/21 11:11 PM) Temperature Route Oral (01/18/21 11:11 PM) Dry Weight 149 kg (01/18/21 11:11 PM) Social History Social History Type Response Tobacco Use: 1PPD. Sex Medical Equipment Implanted Date:09/13/20Target Site:Abdomen Description Quantity MRI Company Model MESH VENTRALIGHT ECHO ELLIPS 4 - BARD ([id number]) 1 Bard Unknown HAYDEE:{01}[id number] Assigning Author ity:FDA
--- OUTSIDE RECORDS SUMMARY | 2022-10-14 11:51 | XMS_ITS | Continuity of Care Document ---
Author Name Unknown Organization [facility] Address [address] [place] [id number]- Care Team Providers Care Truck Driver Helper Name Role Phone Jose HENDERSON, Elmer Bravo Primary Care Physician Encounter [facility] Date(s): 12/21/18 - 02/22/19 [facility] [address] [place] [address] [facility] Attending Physician: Luis Lee MD Admitting Physician: Luis Lee MD Allergies, Adverse Reactions, Alerts Substance Reaction Severity Status Zoloft Active traZODone Active ZyPREXA Active PROzac Active SEROquel Active Medications albuterol CFC free 90 mcg/inh inhalation aerosol 2, puffs, Inhalation, Every 4 hours, PRN, # 18 Gm, Refills 3, Tot. Refills 3, Maintenance, 02/13/1911:48:23 EST, Aerosol, Route to Pharmacy Electronically, [id number], [facility]/pharmacy #1111 Start Date: 02/13/19 Status: Ordered baclofen 20 mg oral tablet See Instructions, 1 tablet By Mouth once at bedtime, # 30 tablet, Refills 0, Tot. Refills 0, Maintenance, 02/13/19 16:26:19 EST, Instructions Replace Required Details, Route to Pharmacy Electronically, [id number], [facility] Start Date: 02/13/19 Status: Ordered benztropine [...] Maintenance, :58:23 EST, Route to Pharmacy Electronically, [id number], [facility]/pharmacy #1111, 183, cm, 02/17/19 8:22:07 EST, Height, 127, kg... Start Date: 02/17/19 Status: Ordered fluticasone 50 mcg/inh nasal spray 2 sprays, Nares, Both, 2 times a day, # 9.9 mL, 0 Refills, Maintenance, 11/15/18 14:21:09 EDT, [place], 2 sprays Nares, Both 2 times a [...]
--- OUTSIDE RECORDS SUMMARY | 2022-10-14 11:51 | XMS_ITS | Continuity of Care Document ---
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 Name Role Phone Soto RAMIREZ MD, Bal Serrano Primary Care Physician Encounter [facility] Date(s): 07/04/20 - 07/05/[address] [address]- Encounter Diagnosis Alcohol intoxication(Final) - 07/05/20 Discharge Disposition: A-D/C AMA Attending Physician: Bal Bassett DO Admitting Physician: [...] 02/13/1911:48:23 EST, Aerosol, Route to Pharmacy Electronically, [id number], [facility]/pharmacy #1111 Start Date: 02/13/19 Status: Ordered amitriptyline 100 mg oral tablet 1 tablet = 100 mg, By Mouth, Daily at bedtime, # 7 tablet, 3 Refills, Maintenance, 04/15/20 10:15:00 EST, Tablet, [facility] #[id number], Partial fill upon patient request if the prescription isfor a schedule II opioid drug., 183, cm, 04/15/20 0... Start Date: 04/15/20 Stop Date: 05/13/20 Status: Ordered amitriptyline 25 mg oral tablet 75 mg, 3, tablet, By Mouth, Daily, # 21 tablet, Refills 3, Tot. Refills 3, Maintenance, 04/13/20 14:55:00 EST, Route to Pharmacy Electronically, [facility] #[id number], Partial fill upon patientrequest if the prescription is for a schedule II op... Start Date: 04/13/20 Stop Date: 05/11/20 Status: Ordered baclofen 10 mg oral tablet 20 mg, 2, tablet, By Mouth, 2 times a day, # 56 tablet, Refills 1, Tot. Refills 1, Maintenance, 04/13/20 14:54:00 EST, Route to Pharmacy Electronically, [facility] #[id number], Partial fill uponpatient request if the prescription is for a schedu... Start Date: 04/13/20 Stop Date: 05/11/20 Status: Ordered busPIRone 15 mg oral tablet 1 tablet = 15 mg, By Mouth, 3 times a day, # 42 tablet, 1 Refills, Maintenance, 04/13/20 14:56:00 EST, Tablet, [facility] #[id number], Partial fill upon patient request if the prescription is for a schedule II opioid drug., 183, cm, 04/13/20 9:04... Start Date: 04/13/20 Stop Date: 05/11/20 Status: Ordered fluticasone 50 mcg/inh nasal spray 2 sprays, Nares, Both, 2 times a day, # 9.9 mL, 0 Refills, Maintenance, 11/15/18 14:21:09 EDT, [place], 2 sprays Nares, Both 2 times a [...] 05/28/21 9:00:00 EDT, 05/28/20 15:55:00 EDT, Patch, [facility] #[id number], Partial fill upon patient request if the prescription is for aschedule II opioid drug., 1 patch Topically Daily,... Start Date: 05/28/20 Stop Date: 05/28/21 Status: Ordered propranolol 40 mg oral tablet 40 mg, 1, tablet, By Mouth, 2 times a day, # 28 tablet, Refills 1, Tot. Refills 1, Maintenance, 04/13/20 14:56:00 EST, Route to Pharmacy Electronically, [facility] #[id number], Partial fill uponpatient request if the prescription [...] 04/13/20 14:57:00 EST, Route to Pharmacy Electronically, [facility] #[id number], Partial fill upon patient request if the [...] 1 Refills, Maintenance, 04/13/20 14:55:00 EST, Tablet, [facility] #[id number], Partial fill upon patient request if the [...] recent to oldest [Reference Range]: 1 Height 188 cm (07/04/20 11:50 PM) Weight 138 kg (07/04/20 11:30 PM) Oxygen Saturation [94-100 %] 100 % (07/04/20 11:50 PM) Pulse Rate [55-90 bpm] 99 bpm *H* (07/04/20 11:50 PM) Blood Pressure [90-138/55-84 mm Hg] 129/ 60mm Hg (07/04/20 11:50 PM) Respiratory Rate [16-30 br/min] 17 br/mi n (07/04/20 11:50 PM) Temperature [96.8-100.4 DegF] 97.4 DegF (07/04/20 11:50 PM) Mode of Delivery (Oxygen) Room air (07/04/20 11:50 PM) Blood pressure sites Arm, left (07/04/20 11:50 PM) Temperature Route Oral (07/04/20 11:50 PM) Dry Weight 138 kg (07/04/20 11:30 PM) Weight Obtained Via Patient/family state d (07/04/20 11:30 PM) Dry Weight Obtained Via Patient/family s tated (07/04/20 11:30 PM) Social History Social History Type Response Tobacco Use: 1PPD. Sex
--- OUTSIDE RECORDS SUMMARY | 2022-10-14 11:51 | XMS_ITS | Continuity of Care Document ---
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 Name Role Phone Soto RAMIREZ MD, Bal Serrano Primary Care Physician Encounter [facility] Date(s): 05/02/22 - 05/02/[address] [address]- Discharge Disposition: A-D/C Home Attending Physician: Kayli HENDERSON, Xavier Rodrigues Admitting Physician: Xavier Milan MD Referring Physician: Not on Staff, Referring MD Allergies, Adverse Reactions, Alerts Substance Reaction Severity Status Zoloft Active Thorazine Active traZODone Active ZyPREXA Active Immunizations Given and Recorded Vaccine Date Status Refusal Reason tetanus/diphtheria/pertussis, acel(Tdap) 04/09/22 Recorded tetanus/diphtheria/pertussis, acel(Tdap) 05/18/18 Recorded tetanus/diphtheria/pertussis, acel(Tdap) 12/19/16 Recorded [id number] 12y+ bivalent booster vax 02/11/22 Recorded SARS-CoV-2 [...] 1 Refills, Maintenance, 01/01/22 15:55:00 EDT, Tablet, [facility] #[id number], Partial fill upon patient request if the prescription is for a schedule II opioid drug., 186, cm, 01/01/22 11:49:00 EDT... Start Date: 01/01/22 Stop Date: 01/29/22 Status: Ordered benztropine 1 mg oral tablet 1 mg, 1, tablet, By Mouth, Daily, # 14 tablet, Refills 1, Tot. Refills 1, Maintenance, 01/01/22 15:54:00 EDT, Route to Pharmacy Electronically, [facility] #[id number], Partial fill upon patient request if the prescription is for a schedule II opi... Start Date: 01/01/22 Stop Date: 01/29/22 Status: Ordered busPIRone 15 mg oral tablet 1 tablet = 15 mg, By Mouth, 3 times a day, # 30 tablet, 2 Refills, Maintenance, 01/01/22 15:55:00 EDT, Tablet, [facility] #[id number], Partial fill upon patient request if the [...] 01/01/22 15:56:00 EDT, Route to Pharmacy Electronically, [facility] #[id number], Partial fill upon patient request if the [...] 06/20/21 23:57:00 EDT, Route to Pharmacy Electronically, [facility] #[id number], Partial fill upon patient request if the [...] AM, 0 Refills, Maintenance, 03/10/22 8:17:00 EST, [place], Partial fill upon patient request if the [...] 1 Refills, Maintenance, 01/02/22 9:22:00 EDT, Tablet, [facility] #[id number], Partial fill upon patient request if the [...] [Reference Range]: 1 2 Height 186 cm (05/02/22 10:51 AM) Weight 112 kg (05/02/22 10:51 AM) Oxygen Saturation [94-100 %] 98 % (05/02/22 2:03 PM) 97 % (05/02/22 10:51 AM) Pulse Rate [55-90 bpm] 90 bpm (05/02/22 2:03 PM) 74 bpm (05/02/22 10:51 AM) Blood Pressure [90-138/55-84 mm Hg] 114/ 74mm Hg (05/02/22 2:03 PM) 116/95mm Hg (05/02/22 10:51 AM) Respiratory Rate [16-30 br/min] 17 br/mi n (05/02/22 2:03 PM) 16 br/min (05/02/22 10:51 AM) Temperature [96.8-100.4 DegF] 97.2 DegF (05/02/22 10:51 AM) Mode of Delivery (Oxygen) Room air (05/02/22 2:03 PM) Room air (05/02/22 10:51 AM) Blood pressure sites Arm, right (05/02/22 2:03 PM) Arm, right (05/02/22 10:51 AM) Temperature Route Temporal (05/02/22 10:51 AM) Dry Weight 112 kg (05/02/22 10:51 AM) Weight Obtained Via Patient/family state d (05/02/22 10:51 AM) Dry Weight Obtained Via Patient/family s tated (05/02/22 10:51 AM) Social History Social History Type Response [...] Code MRI Safety Implantable Status 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 [id number] Unknown [id number] Unknown 03/11/21 Unknown Unknown Active GS1 Note * Kayli HENDERSON, Xavier Rodrigues: PERFORM Event Display: Patient Education Leaflets Authored Date: [id number] Laceration of an Arm or Leg: Skin Glue ?? [id number] Laceration of an Arm or Leg: Skin Glue A laceration is a cut through the skin. You have a laceration that has been closed with skin glue. This is used on cuts that have smooth edges that can easily be brought back together and are not infected. It's best used on straight, clean cuts on areas that don't get a lot of tension. You may need a tetanus shot. This is given if you have no record of a shot, and the object that caused the cut may lead to tetanus. Home care ??? Follow all instructions for taking any medicines prescribed. o Your healthcare provider may prescribe an antibiotic. This is to help prevent infection. Take the medicine every day untilit's gone or you are told to stop. You should not have any left over. o Your healthcare provider may prescribe medicines for pain. ??? Follow the healthcare provider???s instructions on how to care for the cut. ??? Don't cover the cut with a bandage. No bandage is needed. Skin glue peels off on itsown within 5 to 10 days. Most skin wounds heal within 10 days. ??? Keep the wound clean. You may shower or bathe as usual, but don't soak the wound. Don't use soaps, lotions, or ointments on the wound area. These may dissolve the glue too soon. Don't scrub the wound. After bathing, pat the wound dry with a soft towel. ??? Don't scratch, rub, or pick at the film. Don't place tape directly over thefilm. ??? Don't put??liquids such as peroxide, ointments, or creams on the wound while the skin glue is in place. Many oil- based products can weaken and dissolve the glue. ??? Don't do any??activities that may reinjure your wound. ??? Don't do any activities that cause heavy sweating. Protect the wound from sunlight. Sunlight can make scarring worse. After the wound has healed, apply sunscreen tothe area to help minimize scarring. ??? Most skin wounds heal without problems. But an infection sometimes occurs even with proper treatment. Watch for the signs of infection listed below. ?? Follow-up care Follow up with your healthcare provider as advised. ?? When to get medical advice Call your healthcare provider right away??if any of these occur: ??? Wound bleeding is not controlled by direct pressure ??? Signs of infection. These include increasing pain in the wound, increasingwound redness or swelling, or pus or bad odor coming from the wound. ??? Fever of??100.4??F (38.??C)??or higher, or as directed by your healthcare provider ??? Wound edges reopen ??? Wound color changes ??? Numbness around the wound? Decreased movement around the injured area ?? Last Reviewed Date: 2022 ?? [id number] [employer]. All rights reserved. This information is not intended as a substitute for professional medical care. Always follow your healthcare professional's instructions. ?? Patient Care team information Care Team Personnel Name: Konrad Gallegos RN Position: [facility] ED RN W/OE and Tasks Member Role: Primary Care Nurse Name: Trisha Alamo RN Position: [facility] RN Supv Member Role: Primary Care Nurse Name: Rita Son NP Position: [facility] Associate Professional Member Role: Primary Care Nurse Address: Address: [address] [place] [address] Name: Sol Chanel RN Position: [facility] RN Member Role: Primary Care Nurse Name: Trisha Beltrán RN Position: [facility] RN Supv Member Role: Primary Care Nurse Name: Jackie Carrillo RN Position: [facility] RN Member Role: Primary Care Nurse Name: Helene Pérez RN Position: [facility] RN Member Role: Primary Care Nurse Name: Brenda Cuba RN Position: [facility] HBO Wound Member Role: Primary Care Nurse Name: Faraz Barriga RN Position: [facility] RN Member Role: Primary Care Nurse Name: Екатерина Chacko RN Position: [facility] RN Member Role: Primary Care Nurse Name: Anna Lackey RN Position: [facility] RN Member Role: Primary Care Nurse Name: Anna Oconnor RN Position: [facility] Hospital Coppersmith Apprentice Member Role: Primary Care Nurse Name: Kip Gonzalez RN Position: [facility] RN Member Role: Primary Care Nurse Address: Address: [address] [place] [address]- [place] Name: Kari Grijalva RN Position: [facility] RN Member Role: Primary Care Nurse Name: Sunitha Gutierrez RN Position: [facility] RN Member Role: Primary Care Nurse Name: April Acuña RN Position: [facility] RN Member Role: Primary Care Nurse Name: Li Esquivel RN Position: [facility] Coppersmith Apprentice Member Role: Primary Care Nurse Name: Soto RAMIREZ MD, James C Position: [facility] Outreach Member Role: PCP Address: Address: [address] [place] [address]- [place] Name: Tunde White MD Position: [facility] Psychiatry MD Member Role: Lifetime Consulting Physician Address: Address: [address] [place] [address]- [place] Name: Xavier Milan MD Position: [facility] ED Medicine MD Member Role: Admitting Physician Address: Address: [address] [place] [address]- [place] Name: Candida Elias RN Position: [facility] ED RN W/OE and Tasks Member Role: Patient Care Provider Care Team Related Persons Name: FORREST TO Address: home [address] [place] [address] Name: MÓNICA CREWS
--- OUTSIDE RECORDS SUMMARY | 2022-10-14 11:51 | XMS_ITS | Continuity of Care Document ---
Author Name Unknown Organization [facility] Address [address] [place] [address]- Care Team Providers Care Voice And Data Technician Name Role Phone Soto RAMIREZ MD, Bal Serrano Primary Care Physician ( [phone] Encounter [facility] Date(s): 10/02/21 - 10/03/[address] [address]- Encounter Diagnosis Anxiety(Final) - 10/03/21 Discharge Disposition: A-D/C Home Attending Physician: Bal [...] Mouth, Every 4 hours, PRN for pain, for 3 days, # 7 tablet, 0 Refills, Acute 10/06/21 6:10:00 EDT, 10/03/21 6:10:00 EDT, Tablet, [facility] #[id number], Partial fill upon patient request if the prescription is for a schedule II opioi... Start Date: 10/03/21 Stop Date: 10/06/21 Status: Ordered Advair Diskus 250 mcg-50 mcg inhalation powder Inhalation, 2 times a day, Refills 0, Maintenance, 05/21/20 9:46:00 EST Start Date: 05/21/20 Status: Ordered Advair Diskus 500 mcg-50 mcg inhalation powder 1, puffs, Inhalation, 2 times a day, # 1 each, Refills 0, Tot. Refills 0, Maintenance, 06/20/21 23:55:00 EDT, Inhaler, Route to Pharmacy Electronically, [id number], [facility] #[id number], 182, cm, 06/20/21 23:10:00 EDT,... Start Date: 06/20/21 Status: Ordered amitriptyline 150 mg oral tablet 1 tablet = 150 mg, By Mouth, Daily at bedtime, # 5 tablet, 4 Refills, Maintenance, 07/11/21 11:18:00 EDT, Tablet, [facility] #[id number], Partial fill upon patient request if the prescription isfor a schedule II opioid drug., 182, cm, 06/20/21 2... Start Date: 07/11/21 Stop Date: 08/05/21 Status: Ordered ARIPiprazole 15 mg oral tablet 15 mg, 1, tablet, By Mouth, Daily, # 7 tablet, Refills 3, Tot. Refills 3, Maintenance, 07/14/21 11:18:00 EDT, Route to Pharmacy Electronically, [facility] #[id number], Partial fill upon patient request if the [...] 3 Refills, Maintenance, 07/14/21 11:19:00 EDT, Tablet, [facility] #[id number], Partial fill upon patient request if the [...] 06/20/21 23:55:00 EDT, Route to Pharmacy Electronically, [facility] #[id number], Partial fill upon patient request if the [...] 3 Refills, Maintenance, 07/14/21 11:19:00 EDT, Tablet, [facility] #[id number], Partial fill upon patient request if the prescription is for a schedule II opioid drug., 182, cm, 06/20/21 23:10:00 EDT... Start Date: 07/14/21 Stop Date: 08/11/21 Status: Ordered docusate sodium 100 mg oral capsule 100 mg, 1, capsule, By Mouth, 2 times a day, # 60 capsule, Refills 0, Tot. Refills 0, Maintenance, 06/20/21 23:57:00 EDT, Route to Pharmacy Electronically, [facility] #[id number], Partial fill upon patient request if the prescription is for a salima... Start Date: 06/20/21 Status: Ordered Flomax 0.4 mg oral capsule 0.4 mg, 1, capsule, By Mouth, Daily, # 30 capsule, Refills 0, Tot. Refills 0, Maintenance, 06/20/2222:57:00 EDT, Route to Pharmacy Electronically, [facility] #[id number], Partial fill upon patient request if the prescription is for a schedule II... Start Date: 06/20/21 Status: Ordered fluticasone 50 mcg/inh nasal spray 2 sprays, Nares, Both, 2 times a day, # 9.9 mL, 0 Refills, Maintenance, 11/15/18 14:21:09 EDT, [place], 2 sprays Nares, Both 2 times a [...] drug. Start Date: 05/21/20 Status: Ordered Soma 250 mg oral tablet 1 tablet = 250 mg, By Mouth, 4 times a day, for 3 days, # 12 tablet, 0 Refills, Acute 10/06/21 6:09:00 EDT, 10/03/21 6:09:00 EDT, Tablet, [facility] #[id number], Partial fill upon patient request if the prescription is for a schedule II opioid dr... Start Date: 10/03/21 Stop Date: 10/06/21 Status: Ordered Tizanidine By Mouth, Refills 0, Maintenance, 06/20/21 23:12:00 EDT, Partial fill upon patient request if the prescription is for a schedule II opioid drug. Start Date: 06/20/21 Status: Ordered tiZANidine 4 mg oral tablet 4 mg, 1, tablet, By Mouth, 2 times a day, # 14 tablet, Refills 0, Tot. Refills 0, Maintenance, 09/08/21 5:22:00 EDT, Route to Pharmacy Electronically, [facility] #[id number], Partial fill upon patient request if the [...] opioid drug. Start Date: 09/07/21 Status: Ordered Xanax 2 mg oral tablet 1 tablet = 2 mg, By Mouth, 2 times a day, PRN for anxiety, for 3 days, # 5 tablet, 0 Refills, Acute10/06/21 6:11:00 EDT, 10/03/21 6:11:00 EDT, Tablet, [facility] #[id number], Partial fill upon patient request if the prescription is for a schedul... Start Date: 10/03/21 Stop Date: 10/06/21 Status: Ordered Problem List Condition Effective Dates Status Health Status Inform ant Allergic rhinitis(Confirmed) Active Asthma(Confirmed) Active Bipolar disorder with depression(Confirmed) Active GERD (gastroesophageal reflu x disease)(Confirmed) Active Generalized anxiety disorder(Confirmed) Active Hypothyroidism(Confirmed) Active Severe obesity(Confirmed) Active Vital Signs Most recent to oldest [Reference Range]: 1 2 3 Height 183 cm (10/03/21 6:12 AM) 183 cm (10/03/21:22 AM) 183 cm (10/02/21 11:19 PM) Weight 136.5 kg (10/03/21 6:12 AM) 136.5 kg (10/03/21:22 AM) 136.5 kg (10/02/21 11:19 PM) Oxygen Saturation [94-100 %] 97 % (10/03/21 6:12 AM) 96 % (10/03/21:22 AM) 99 % (10/02/21 11:19 PM) Pulse Rate [55-90 bpm] 87 bpm (10/03/21 6:12 AM) 92 bpm *H* (10/03/21:22 AM) 88 bpm (10/02/21 11: PM) Body Mass Index [18.5-24.99] 40.76 *>HHI* (10/03/21 6:12 AM) 40.76 *>HHI* (10/03/21:22 AM) Blood Pressure [90-138/55-84 mm Hg] 131/83mm Hg (10/03/21 6:12 AM) 127/71mm Hg (10/03/21:22 AM) 124/86mm Hg (10/02/21 11:19 PM) Respiratory Rate [16-30 br/min] 19 br/min (10/03/21 6:12 AM) 18 br/min (10/03/21:22 AM) 16 br/min (10/02/21 11:19 PM) Temperature [96.8-100.4 DegF] 97.7 DegF (10/02/21 11:19 PM) Liters per Minute 0 L/min (10/03/21 6:12 AM) 0 L/min (10/03/21: AM) Mode of Delivery (Oxygen) Room air (10/03/21 6:12 AM) Room air (10/03/21 4:22 AM) Room air (10/02/21 11:19 PM) Blood pressure sites Arm, right (10/02/21 11:19 PM) Temperature Route Temporal (10/02/21 11:19 PM) Dry Weight 136.5 kg (10/03/21 6:12 AM) 136.5 kg (10/03/21 4:22 AM) 136.5 kg (10/02/21 11:19 PM) Dry Weight Obtained Via Patient/family s tated (10/02/21 11:19 PM) Social History Social History Type Response Smoking Status 10 or more cigarette s (1/2 pack or more)/day in last 30 days entered on: 06/10/21 Sex Medical Equipment Implanted Date:09/13/20Target Site:Abdomen Description Quantity MRI Company Model MESH VENTRALIGHT ECHO ELLIPS 4 - BARD ([id number]) 1 Bard Unknown HAYDEE:{01}[id number] Assigning Author ity:MAURICE
--- OUTSIDE RECORDS SUMMARY | 2022-10-14 11:51 | XMS_ITS | Continuity of Care Document ---
Author Name Unknown Organization [facility] Address [address] [place] [address]- Care Team Providers Care Ppap Coordinator Name Role Phone Soto RAMIREZ MD, Bal Serrano Primary Care Physician Encounter [facility] Date(s): 01/02/20 - 03/28/20 [facility] [address] [place] [address]- Attending Physician: Barbara HENDERSON, [facility] Referring Physician: Soto RAMIREZ MD, James C Allergies, Adverse Reactions, Alerts Substance Reaction Severity Status Zoloft Active Thorazine Active traZODone Active ZyPREXA Active Medications albuterol CFC free 90 mcg/inh inhalation aerosol 2, puffs, Inhalation, Every 4 hours, PRN, # 18 Gm, Refills 3, Tot. Refills 3, Maintenance, 02/13/1911:48:23 EST, Aerosol, Route to Pharmacy Electronically, [id number], [facility]/pharmacy #1111 Start Date: [...] 0 Refills, Maintenance, 02/28/19 12:08:43 EST, Tablet, [facility]/pharmacy #1111, 183, [...] 01/04/20 13:04:00 EDT, Route to Pharmacy Electronically, [facility]/pharmacy #1111, 183, cm, 01/04/20 8:53:00EDT, Height, 127, kg, 01/04/20 9:09:00 EDT, Dry Weight Start Date: 01/04/20 Status: Ordered EC Naprosyn 375 mg oral enteric coated tablet 1 tablet = 375 mg, By Mouth, 2 times a day, # 20 tablet, 0 Refills, Maintenance, 03/09/20 20:02:00 EST, EC Tablet, [facility] #[id number], Partial fill upon patient request if the prescription is for a schedule II opioid drug., 183, cm, 01/14/20... Start Date: 03/09/20 Status: Ordered fluticasone 50 mcg/inh nasal spray 2 sprays, Nares, Both, 2 times a day, # 9.9 mL, 0 Refills, Maintenance, 11/15/18 14:21:09 EDT, [place], 2 sprays Nares, Both 2 times a [...] 0 Refills, Maintenance, 01/09/20 6:19:00 EDT, Tablet, [facility]/pharmacy #1111, 183, cm, 01/09/20 5:34:00 EDT, Height, [...]
--- OUTSIDE RECORDS SUMMARY | 2022-10-14 11:51 | XMS_ITS | Continuity of Care Document ---
Author Name Unknown Organization [facility] Address [address] [address]- Care Team Providers Care Centrifugal Separator Name Role Phone Shai HENDERSON, Elijah Primary Care Physician [phone] Encounter [facility] Date(s): 05/23/19 - 06/02/19 [facility] [address] [address]- [place] Attending Physician: AdmAmandeep agee Admitting Physician: AdmtrAmandeep Referring Physician: Admtr, Ar8 Allergies, Adverse Reactions, Alerts Substance Reaction Severity Status Zoloft Active Thorazine Active traZODone Active ZyPREXA Active PROzac Active SEROquel Active Medications albuterol CFC free 90 mcg/inh inhalation aerosol 2, puffs, Inhalation, Every 4 hours, PRN, # 18 Gm, Refills 3, Tot. Refills 3, Maintenance, 02/13/1911:48:23 EST, Aerosol, Route to Pharmacy Electronically, [id number], [facility]/pharmacy #1111 Start Date: 02/13/19 Status: Ordered busPIRone 15 mg oral tablet 1 tablet = 15 mg, By Mouth, 3 times a day, # 90 tablet, 0 Refills, Maintenance, 02/28/19 12:08:43 EST, Tablet, [facility]/pharmacy #1111, 183, cm, 02/28/19 11:39:08 EST, Height, 124, kg, 02/22/19 8:26:27 EST, Dry Weight Start Date: 02/28/19 Status: Ordered divalproex sodium 500 mg oral enteric coated tablet 1 tablet = 500 mg, By Mouth, 2 times a day, # 60 tablet, 1 Refills, Maintenance, 02/28/19 12:11:45 EST, EC Tablet, [facility]/pharmacy #1111, 183, cm, 02/28/19 11:39:08 EST, Height, [...] Maintenance, 198:58:23 EST, Route to Pharmacy Electronically, [id number], [facility]/pharmacy #1111, 183, cm, 02/17/19 8:22:07 EST, Height, 127, kg... Start Date: 02/17/19 Status: Ordered fluticasone 50 mcg/inh nasal spray 2 sprays, Nares, Both, 2 times a day, # 9.9 mL, 0 Refills, Maintenance, 11/15/18 14:21:09 EDT, [place], 2 sprays Nares, Both 2 times a day Start Date: 11/15/18 Status: Ordered gabapentin 100 mg oral capsule 100 mg, 1, capsule, By Mouth, Daily at bedtime, # 30 capsule, Refills 0, Tot. Refills 0, Maintenance, 02/28/19 12:13:04 EST, Route to Pharmacy Electronically, [facility]/pharmacy #1111, 183, cm, 02/28/19 11:39:08 EST, Height, [...]
--- OUTSIDE RECORDS SUMMARY | 2022-10-14 11:51 | XMS_ITS | Continuity of Care Document ---
Author Name Unknown Organization [facility] Address [address] [place] [address]- Care Team Providers Care Contract Agent Name Role Phone Soto RAMIREZ MD, Bal Serrano Primary Care Physician ( [phone] Encounter [facility] Date(s): 02/28/21 - 02/28/[address] [address]- Discharge Disposition: A-D/C Home Attending Physician: Triston [...] 02/13/1911:48:23 EST, Aerosol, Route to Pharmacy Electronically, [id number], [facility]/pharmacy #1111 Start Date: 02/13/19 Status: Ordered amitriptyline 100 mg oral tablet 1 tablet = 100 mg, By Mouth, Daily at bedtime, # 7 tablet, 3 Refills, Maintenance, 04/15/20 10:15:00 EST, Tablet, [facility] #[id number], Partial fill upon patient request if the prescription isfor a schedule II opioid drug., 183, cm, 04/15/20 0... Start Date: 04/15/20 Stop Date: 05/13/20 Status: Ordered amitriptyline 25 mg oral tablet 75 mg, 3, tablet, By Mouth, Daily, # 21 tablet, Refills 3, Tot. Refills 3, Maintenance, 04/13/20 14:55:00 EST, Route to Pharmacy Electronically, [facility] #[id number], Partial fill upon patientrequest if the prescription is for a schedule II op... Start Date: 04/13/20 Stop Date: 05/11/20 Status: Ordered busPIRone 15 mg oral tablet 1 tablet = 15 mg, By Mouth, 3 times a day, # 42 tablet, 1 Refills, Maintenance, 04/13/20 14:56:00 EST, Tablet, [facility] #[id number], Partial fill upon patient request if the [...] 09/13/20 14:45:00 EDT, Route to Pharmacy Electronically, [facility] #[id number], Partial fill upon patient request if the [...] Maintenance, 10/22/2121:52:00 EDT, Route to Pharmacy Electronically, [facility] #[id number], Partial fill upon patient request if the prescription is for a schedule II... Start Date: 10/22/20 Status: Ordered fluticasone 50 mcg/inh nasal spray 2 sprays, Nares, Both, 2 times a day, # 9.9 mL, 0 Refills, Maintenance, 11/15/18 14:21:09 EDT, [place], 2 sprays Nares, Both 2 times a [...] 0 Refills, Maintenance, 01/07/21 18:42:00 EDT, Tablet, [facility] #25443, Partial fill upon patient request if the [...] 05/28/21 9:00:00 EDT, 05/28/20 15:55:00 EDT, Patch, [facility] #[id number], Partial fill upon patient request if the [...] 04/13/20 14:57:00 EST, Route to Pharmacy Electronically, [facility] #[id number], Partial fill upon patient request if the [...] 0 Refills, Maintenance, 07/27/20 19:15:00 EDT, Tablet, [facility] #[id number], Partial fill upon patient request if [...] oldest [Reference Range]: 1 Height 183 cm (02/28/21 8:52 AM) Weight 110 kg (02/28/21 8:52 AM) Oxygen Saturation [94-100 %] 93 % *L* (02/28/21 8:52 AM) Pulse Rate [55-90 bpm] 79 bpm (02/28/21 8:52 AM) Blood Pressure [90-138/55-84 mm Hg] 118/ 75mm Hg (02/28/21 8:52 AM) Respiratory Rate [16-30 br/min] 18 br/mi n (02/28/21 8:52 AM) Mode of Delivery (Oxygen) Room air (02/28/21 8:52 AM) Dry Weight 110 kg (02/28/21 8:52 AM) Weight Obtained Via Patient/family state d (02/28/21 8:52 AM) Social History Social History Type Response Tobacco Use: 1PPD. Sex Medical Equipment Implanted Date:09/13/20Target Site:Abdomen Description Quantity MRI Company Model MESH VENTRALIGHT ECHO ELLIPS 4 - BARD ([id number]) 1 Bard Unknown HAYDEE:{01}[id number] Assigning Author ity:FDA
--- OUTSIDE RECORDS SUMMARY | 2022-10-14 11:51 | XMS_ITS | Continuity of Care Document ---
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 Name Role Phone Marvin Mac MD Primary Care Physician Encounter [facility] Date(s): 09/11/22 - 09/11/[address] [address]- Discharge Disposition: A-D/C Home Attending Physician: Gokul Wallace MD Admitting Physician: Gokul Wallace MD Referring Physician: Not on Staff, Referring MD Allergies, Adverse Reactions, Alerts Substance Reaction Severity Status Zoloft Active traZODone Active ZyPREXA Active Immunizations Given and Recorded Vaccine Date Status Refusal Reason tetanus/diphtheria/pertussis, acel(Tdap) 04/09/22 Recorded tetanus/diphtheria/pertussis, acel(Tdap) 05/18/18 Recorded tetanus/diphtheria/pertussis, acel(Tdap) 12/19/16 Recorded [id number] 12y+ bivalent booster vax 02/11/22 Recorded SARS-CoV-2 [...] 0, Tot. Refills 0, Acute, for pain, 09/12/22 21:48:00 EDT, 09/11/22 21:48:00 EDT, Route to Pharmacy Electronically, [facility] #[id number] Tablet, Partial fill upon patient request if... Start Date: 09/11/22 Stop Date: 09/12/22 Status: Ordered ARIPiprazole 30 mg oral tablet 1 tablet = 30 mg, By Mouth, Daily, TAKE ONE TABLET BY MOUTH DAILY IN AM, # 14 tablet, 1 Refills, Maintenance, 08/05/22 8:26:00 EDT, Tablet, [facility], Partial fill upon patient requestif the prescription is for a schedule II opioid dafne... Start Date: 08/05/22 Stop Date: 09/02/22 Status: Ordered bumetanide 2 mg oral tablet 1 tablet = 2 mg, By Mouth, Daily, # 30 tablet, 0 Refills, Maintenance, 09/11/22 21:44:00 EDT, Tablet, [facility] #[id number], Partial fill upon patient request if the prescription is for a schedule II opioid drug., 183, cm, 09/11/22 19:56:00 EDT,... Start Date: 09/11/22 Status: Ordered busPIRone 30 mg oral tablet 1 tablet = 30 mg, By Mouth, 2 times a day, TAKE ONE TABLET BY MOUTH TWO TIMES DAILY, # 28 tablet, 1Refills, Maintenance, 08/05/22 8:27:00 EDT[facility] upon patient request if the prescription is for a schedule I... Start Date: 08/05/22 Stop Date: 09/02/22 Status: Ordered chlorproMAZINE 50 mg oral tablet See Instructions, TAKE ONE TABLET (50MG) BY MOUTH DAILY AT 9AM, 3PM AND TWO TABLETS (100MG) BY MOUTH DAILY AT BEDTIME, # 56 tablet, 1 Refills, Maintenance, 08/05/22 9:34:00 EDT, Tablet, [facility], Partial fill upon patient request if th... Start Date: 08/05/22 Status: Ordered cloNIDine 0.2 mg oral tablet 0.2 mg, 1, tablet, By Mouth, 2 times a day, TAKE ONE TABLET BY MOUTH TWO TIMES DAILY, # 28 tablet, Refills 1, Tot. Refills 1, Maintenance, 08/05/22 8:28:00 EDT, Route to Pharmacy Electronically, [facility], Partial fill upon patient requ... Start Date: 08/05/22 Stop Date: 09/02/22 Status: Ordered divalproex sodium 500 mg oral enteric coated tablet 2 tablets, By Mouth, 2 times a day, TAKE TWO TABLETS (1000MG) BY MOUTH TWO TIMES DAILY, # 56 tablet, 1 Refills, Maintenance, 08/05/22 9:36:00 EDT, Tablet, [facility], Partial fill upon patient request if the prescription is for a schedul... Start Date: 08/05/22 Stop Date: 09/02/22 Status: Ordered docusate sodium 100 mg oral capsule 100 mg, 1, capsule, By Mouth, 2 times a day, TAKE ONE CAPSULE BY MOUTH TWO TIMES DAILY, # 60 capsule, Refills 0, Tot. Refills 0, Maintenance, 08/05/22 8:29:00 EDT, Route to Pharmacy Electronically, [facility], Partial fill upon patient r... Start Date: 08/05/22 Status: Ordered escitalopram 20 mg oral tablet 1 tablet, By Mouth, Daily, # 90 tablet, 0 Refills, Maintenance, 09/11/22 15:09:00 EDT, [facility] #[id number], 183, cm, 09/02/22 7:54:00 EDT, Height, 122.7, kg, 08/15/22 18:46:00 EDT, Dry Weight Start Date: 09/11/22 Status: Ordered furosemide 80 mg oral tablet 80 mg, 1, tablet, By Mouth, Daily, TAKE ONE TABLET BY MOUTH DAILY, # 14 tablet, Refills 1, Tot. Refills 1, Maintenance, 08/05/22 8:30:00 EDT, Route to Pharmacy Electronically, [facility], Partial fill upon patient request if the prescrip... Start Date: 08/05/22 Stop Date: 09/02/22 Status: Ordered levothyroxine 0.05 mg oral tablet 1 tablet = 50 mcg, By Mouth, Daily, TAKE ONE TABLET BY MOUTH DAILY, # 14 tablet, 1 Refills, Maintenance, 08/05/22 8:30:00 EDT, Tablet, [facility], Partial fill upon patient request if the prescription is for a schedule II opioid drug., 1... Start Date: 08/05/22 Stop Date: 09/02/22 Status: Ordered mupirocin 2% topical cream 1 application, Topically, 3 times a day, # 15 Gm, 0 Refills, Acute 09/12/22 21:45:00 EDT, 09/11/22 21:45:00 EDT, Cream, [facility] #[id number], Partial fill upon patient request if the prescription is for a schedule II opioid drug., 1 application... Start Date: 09/11/22 Stop Date: 09/12/22 Status: Ordered pregabalin 200 mg oral capsule 1 capsule = 200 mg, By Mouth, 2 times a day, TAKE ONE TABLET BY MOUTH TWO TIMES DAILY, # 180 capsule, 0 Refills, Maintenance, 09/02/22 8:31:00 EDT, Capsule, [facility] #[id number], Partial fill upon patient request if the [...] 1 Refills, Maintenance, 08/05/22 8:31:00 EDT, [facility]ule, [facility], Partial fill upon patient request if the prescription is for a sched... Start Date: 08/05/22 Stop Date: 09/02/22 Status: Ordered Tylenol with Codeine #3 Tablet (300mg/30mg) 2 tablet, Tablet, By Mouth, Once, STAT, 09/11/22 21:07:00 EDT, Stop date 09/11/22 21:07:00 EDT Start Date: 09/11/22 Stop Date: 09/11/22 Status: Completed Ventolin HFA 108 mcg/inh inhalation [...] opioid drug. Start Date: 04/19/22 Status: Ordered Xanax 2 mg oral tablet 1 tablet = 2 mg, By Mouth, 3 times a day, PRN for anxiety, # 10 tablet, 0 Refills, Acute 09/12/22 21:46:00 EDT, 09/11/22 21:46:00 EDT, Tablet, [facility] #[id number], Partial fill upon patient request if the prescription is for a schedule II opio... Start Date: 09/11/22 Stop Date: 09/12/22 Status: Ordered Problem List Condition Confirmation Course [...] suboxone- but denies any recent use. 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 5Outside Source Comment: Last Assessment & Plan: Recent inpt psych hospitalization in [facility]. Denies any SI/HI at this time but very anxious about medications. LEEANN pt no dose adjustments at this time and will need to connect with psych at [facility]- no current psych provider. Pt contracts for safety. Pt did come with rx avail- but sh ort on lorazepam. Will fill at this time but ensure has prescriber on d/c. met with pt todayand psych referral placed. Administration aware. Results Radiology Reports * Exam Date Time Procedure Performing Provider Status 09/11/22 9:57 PM Knee 1 or 2 Views Left Grodzirosinaa , Lizzy ta; Auth (Verified) Notes: (Knee 1 or 2 Views Left) Reason For Exam: with Pain;Trauma RESULT: Knee 1 or 2 Views Left Knee 1 or 2 Views Left, 2 views Hx of Present Illness: PATIENT STATES RECENT LYMPHEDEMA IN BILATERAL LEGS, THINKS INFECTION NOW- RECENT ADMISSION, STATES LASIX NOT WORKING NOW LEGS INCREASED SWELLING AND PAIN., ALSO STATES SOB; Reason: Trauma; with Pain; Clinical Question(s): Fracture COMPARISON: 05/02/2022. FINDINGS: There is no evidence of acute or healing fracture, dislocation or bone lesion. Similar to prior study, the patella is laterally subluxed. Severe tricompartmental degenerative osteoarthritis particularly in the lateral compartment. Similar to prior study, there are well-corticated bone fragments posteriorly and medially, suggesting loose bodies in addition to a fabella. Posterior corner of the tibial plateau is irregular, suggesting remote injury. Large suprapatellar effusion, increased since the prior study. Diffuse soft tissue swelling. No soft tissue gas or radiopaque foreign body. IMPRESSION: Severe tricompartmental degenerative osteoarthritis but no acute abnormality. Large suprapatellar effusion, increased since the prior study. WSN: [id number] Ordering Physician: Gokul Wallace Dictated By: Roni Suero MD Dictated Date/Time: 09/11/22 10:40 p Reviewed By: Roni Suero MD Signed By: Roni Suero MD Signed Date/Time: 09/11/22 10:40 pm Transcribed By: RAVINDER Transcribed Date/Time: 09/11/22 10:37 pm * Exam Date Time Procedure Performing Provider Status 09/11/22 9:57 PM Knee 1 or 2 Views Right Grodsheltoncka , Be yesi; Auth (Verified) Notes: (Knee 1 or 2 Views Right) Reason For Exam: with Pain;Trauma RESULT: Knee 1 or 2 Views Right Knee 1 or 2 Views Right, 2 views Hx of Present Illness: PATIENT STATES RECENT LYMPHEDEMA IN BILATERAL LEGS, THINKS INFECTION NOW- RECENT ADMISSION, STATES LASIX NOT WORKING NOW LEGS INCREASED SWELLING AND PAIN., ALSO STATES SOB; Reason: Trauma; with Pain; Clinical Question(s): Fracture COMPARISON: 05/02/2022. FINDINGS: There is no evidence of acute or healing fracture, dislocation or bone lesion. Similar appearance of slightly lateral subluxation of the patella. Severe degenerative osteoarthritis particularly in the medial compartment but no evidence of osteochondral defect or intra-articular loose body. Redemonstration of mild genu varus angulation. Large suprapatellar effusion, increased since the prior study. Diffuse soft tissue edema. No soft tissue gas or radiopaque foreign body. IMPRESSION: Severe degenerative osteoarthritis but no acute abnormality. Large suprapatellar effusion is increased since the prior study. WSN: [id number] Ordering Physician: Gokul Wallace Dictated By: Roni Suero MD Dictated Date/Time: 09/11/22 10:37 p Reviewed By: Roni Suero MD Signed By: Roni Suero MD Signed Date/Time: 09/11/22 10:37 pm Transcribed By: RAVINDER Transcribed Date/Time: 09/11/22 10:34 pm * Exam Date Time Procedure Performing Provider Status 09/11/22 6:06 PM Chest 2 Views Frontal and Lat Gretchen Cabezas (Verified) Notes: (Chest 2 Views Frontal and Lat) Reason For Exam: Chest Pain;Other: RESULT: Chest 2 Views Frontal and Lat Chest 2 Views Frontal and Lat Hx of Present Illness: PATIENT STATES RECENT LYMPHEDEMA IN BILATERAL LEGS, THINKS INFECTION NOW- RECENT ADMISSION, STATES LASIX NOT WORKING NOW LEGS INCREASED SWELLING AND PAIN., ALSO STATES SOB; Reason: Other:; Chest Pain; Clinical Question(s): Other: COMPARISON: Multiple prior chest x-rays, the most recent of which is dated 07/21/2022. FINDINGS: LINES AND TUBES: None. LUNGS AND PLEURA: Clear lungs. Normal pulmonary vascularity. No pleural effusion. No pneumothorax. HEART, MEDIASTINUM AND WAYNE: Heart is normal in size. Normal mediastinal and hilar contour. BONES AND SOFT TISSUES: No acute abnormality. IMPRESSION: No acute abnormality. WSN: [id number] Ordering Physician: David Steinberg Dictated By: Chiquis Toro MD Dictated Date/Time: 09/11/22 6:14 pm Reviewed By: Chiquis Toro MD Signed By: Chiquis Toro MD Signed Date/Time: 09/11/22 6:14 pm Transcribed By: RAVINDER Transcribed Date/Time: 09/11/22 6:13 pm Vital Signs Most recent to oldest [Reference Range]: 1 2 3 Height 183 cm (09/11/22 7:56 PM) 183 cm (09/11/22 5:42 PM) Weight 118.5 kg (09/11/22 7:56 PM) 118.5 kg (09/11/22 5:42 PM) Oxygen Saturation [94-100 %] 98 % (09/11/22 10:00 PM) 97 % (09/11/22 7:56 PM) 96 % (09/11/22 5:42 PM) Pulse Rate [55-90 bpm] 97 bpm *H* (09/11/22 10:00 PM) 100 bpm *H* (09/11/22 7:56 PM) 115 bpm *H* (09/11/22 5:42 PM) Body Mass Index [18.5-24.99 kg/m2] 35.38 kg/m2 *>HHI* (09/11/22 7:56 PM) Blood Pressure [90-138/55-84 mm Hg] 129/74mm Hg (09/11/22 10:00 PM) 138/82mm Hg (09/11/22 7:56 PM) 117/69mm Hg (09/11/22 5:42 PM) Respiratory Rate [16-30 br/min] 16 br/min (09/11/22 10:14 PM) 16 br/min (09/11/22 9:14 PM) 20 br/min (09/11/22 7:56 PM) Temperature [96.8-100.4 DegF] 98.4 DegF (09/11/22 10:00 PM) 98.2 DegF (09/11/22 5:42 PM) Mode of Delivery (Oxygen) Room air (09/11/22 10:00 PM) Room air (09/11/22 7:56 PM) Room air (09/11/22 5:42 PM) Blood pressure sites Arm, right (6/30/23 10:00 PM) Arm, left (09/11/22 7:56 PM) Arm, right (09/11/22 5:42 PM) Temperature Route Temporal (09/11/22 10:00 PM) Temporal (09/11/22 5:42 PM) Dry Weight 118.5 kg (09/11/22 7:56 PM) 118.5 kg (09/11/22 5:42 PM) Weight Obtained Via Patient/family state d (09/11/22 5:42 PM) Dry Weight Obtained Via Patient/family s tated (09/11/22 5:42 PM) Social History Social History Type Response [...] Code MRI Safety Implantable Status 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 [id number] Unknown [id number] Unknown 03/11/21 Unknown Unknown Active GS1 Note * Rodrigo HENDERSON, Gokul Velazquez: PERFORM Event Display: Patient Education Leaflets Authored Date: [id number] Leg Swelling in Both Legs ?? [id number] Leg Swelling in Both Legs Swelling of [...] insufficiency or varicose veins, don't sit or multimedia services coordinator one place for long periods of time. [...] chest pain? Last Reviewed Date: 2021 ?? 9150-8986 [employer]. All rights reserved. This information is not intended as a substitute for professional medical care. Always follow your healthcare professional's instructions. ?? Patient Care team information Care Team Personnel Name: Konrad Gallegos RN Position: [facility] RN W/OE and Tasks Member Role: Primary Care Nurse Name: Niki Bright RN Position: [facility] RN Member Role: Primary Care Nurse Name: Fang Che Position: [facility] RN Member Role: Primary Care Nurse Name: Trisha Alamo RN Position: [facility] RN Supv Member Role: Primary Care Nurse Name: Rita Son NP Position: [facility] Associate Professional Member Role: Primary Care Nurse Address: Address: [address] [place] [address]- [place] Name: Sol Chanel RN Position: [facility] RN Member Role: Primary Care Nurse Name: Trisha Beltrán RN Position: [facility] RN Supv Member Role: Primary Care Nurse Name: Helene Pérez RN Position: [facility] RN Member Role: Primary Care Nurse Name: Brenda Cuba RN Position: [facility] HBO Wound Member Role: Primary Care Nurse Name: Kell Alonso RN Position: [facility] RN Member Role: Primary Care Nurse Name: Richa Clay LPN Position: [facility] RN Member Role: Primary Care Nurse Name: Екатерина Chacko RN Position: [facility] RN Member Role: Primary Care Nurse Name: Anna Lackey RN Position: [facility] RN Member Role: Primary Care Nurse Name: Marvin Mac MD Position: [facility] Physician - Primary Care Member Role: PCP Address: Address: [address] [place] [address]- [place] Name: Anna Oconnor RN Position: [facility] Member Role: Primary Care Nurse Name: Kip Gonzalez RN Position: [facility] RN Member Role: Primary Care Nurse Address: Address: [address] [place] [address]- [place] Name: Anisha Hinds RN Position: [facility] RN Member Role: Primary Care Nurse Name: Sunitha Gutierrez RN Position: [facility] RN Member Role: Primary Care Nurse Name: April Acuña RN Position: [facility] RN Member Role: Primary Care Nurse Name: Li Esquivel RN Position: [facility] Member Role: Primary Care Nurse Name: Tunde White MD Position: [facility] Physician - Behavioral Health Member Role: Lifetime Consulting Physician Address: Address: [address] [place] [address]- [place] Name: Gokul Wallace MD Position: [facility] ED Medicine MD Member Role: Admitting Physician Address: Address: [address] [place] [address] [place] [address]- Name: Kell Thayer RN Position: [facility] ED RN W/OE and Tasks Member Role: Patient Care Provider Care Team Related Persons Name: FORREST TO Address: home [address] [place] [address] Name: MÓNICA CREWS
--- OUTSIDE RECORDS SUMMARY | 2022-10-14 11:51 | XMS_ITS | Continuity of Care Document ---
Author Name Unknown Organization [facility] Address [address] [place] [address]- Care Team Providers Care Nurse'S Assistant Name Role Phone Soto RAMIREZ MD, Bal Serrano Primary Care Physician Encounter [facility] Date(s): 01/11/20 - 01/11/[address] [address]- [facility] Discharge Disposition: A-D/C Home Attending Physician: Konrad [...] 02/13/1911:48:23 EST, Aerosol, Route to Pharmacy Electronically, [id number], [id number] Start Date: 02/13/19 Status: Ordered [...] 01/04/20 13:04:00 EDT, Route to Pharmacy Electronically, [facility] #[id number], 183, cm, 01/04/20 8:53:00EDT, Height, 127, kg, 01/04/20 9:09:00 EDT, Dry Weight Start Date: 01/04/20 Status: Ordered fluticasone 50 mcg/inh nasal spray 2 sprays, Nares, Both, 2 times a day, # 9.9 mL, 0 Refills, Maintenance, 11/15/18 14:21:09 EDT, [place], 2 sprays Nares, Both 2 times a [...] 0 Refills, Maintenance, 01/09/20 6:19:00 EDT, Tablet, [facility] #[id number], 183, cm, 01/09/20 5:34:00 EDT, Height, 120,kg, 01/09/20 5:34:00 EDT, Dry Weight Start Date: 01/09/20 Stop Date: 01/16/20 Status: Ordered Protonix 40 mg oral delayed release tablet = 40 mg, By Mouth, 2 times a day, # 60 tablet, 2 Refills, Maintenance, 11/15/18 14:21:31 EDT, EC Tablet Start Date: 11/15/18 Status: Ordered Reglan 10 mg oral tablet 1 tablet = 10 mg, By Mouth, 4 times a day, # 10 tablet, 0 Refills, Acute 01/12/20 10:12:00 EDT, 01/11/20 10:11:00 EDT, Tablet, [email or web address] #[id number], 182.88, cm, 01/11/20 2:21:00 EDT, Height, 122.47, kg, 01/11/20 2:21:00 EDT, Dry Weight Start Date: 01/11/20 Stop Date: 01/12/20 Status: Ordered Topamax 200 mg oral tablet [...] Range]: 1 2 3 Height 182.88 cm (01/11/20 2:21 AM) Weight 122.47 kg (01/11/20 2:21 AM) Oxygen Saturation [94-100 %] 97 % (01/11/20 9:34 AM) 98 % (01/11/20 8:38 AM) 97 % (01/11/20 6:36 AM) Pulse Rate [55-90 bpm] 82 bpm (01/11/20 9:34 AM) 85 bpm (01/11/20 8:38 AM) 108 bpm *H* (01/11/20 6:36 AM) Blood Pressure [90-138/55-84 mm Hg] 122/85mm Hg (01/11/20 9:34 AM) 140/89mm Hg *H* (01/11/20 8:38 AM) 135/88mm Hg (01/11/20 6:36 AM) Respiratory Rate [16-30 br/min] 16 br/min (01/11/20 9:34 AM) 18 br/min (01/11/20 8:38 AM) 19 br/min (01/11/20 6:36 AM) Temperature [96.8-100.4 DegF] 98.4 DegF (01/11/20 2:21 AM) Mode of Delivery (Oxygen) Room air (01/11/20 9:34 AM) Room air (01/11/20 8:38 AM) Room air (01/11/20 6:36 AM) Blood pressure sites Arm, left (01/11/20 9:34 AM) Arm, left (01/11/20 8:38 AM) Arm, left (01/11/20 6:36 AM) Temperature Route Temporal (01/11/20 2:21 AM) Dry Weight 122.47 kg (01/11/20 2:21 AM) Weight Obtained Via Patient/family state d (01/11/20 2:21 AM) Dry Weight Obtained Via Patient/family s tated (01/11/20 2:21 AM) Social History Social History Type Response Smoking Status 10 or more cigarette s (1/2 pack or more)/day in last 30 days; Tobacco user in household: No entered on: 11/15/18 Sex
--- OUTSIDE RECORDS SUMMARY | 2022-10-14 11:51 | XMS_ITS | Continuity of Care Document ---
Author Name Unknown Organization [facility] Address [address] [place] [address]- Care Team Providers Care Tobacco Stripper Hand Name Role Phone Soto RAMIREZ MD, Bal Serrano Primary Care Physician ( [phone] Encounter [facility] Date(s): 01/08/22 - 01/08/[address] [address]- Discharge Disposition: A-D/C Home Attending Physician: Mansoor [...] 01/19/22 15:58:00 EST, 01/01/22 15:58:00 EDT, Tablet, [facility] #[id number], Partial fill upon patient request if the [...] 1 Refills, Maintenance, 01/01/22 15:55:00 EDT, Tablet, [facility] #[id number], Partial fill upon patient request if the prescription is for a schedule II opioid drug., 186, cm, 01/01/22 11:49:00 EDT... Start Date: 01/01/22 Stop Date: 01/29/22 Status: Ordered benztropine 1 mg oral tablet 1 mg, 1, tablet, By Mouth, Daily, # 14 tablet, Refills 1, Tot. Refills 1, Maintenance, 01/01/22 15:54:00 EDT, Route to Pharmacy Electronically, [facility] #[id number], Partial fill upon patient request if the prescription is for a schedule II opi... Start Date: 01/01/22 Stop Date: 01/29/22 Status: Ordered busPIRone 15 mg oral tablet 1 tablet = 15 mg, By Mouth, 3 times a day, # 30 tablet, 2 Refills, Maintenance, 01/01/22 15:55:00 EDT, Tablet, [facility] #[id number], Partial fill upon patient request if the [...] 01/01/22 15:56:00 EDT, Route to Pharmacy Electronically, [facility] #[id number], Partial fill upon patient request if the [...] 2 Refills, Maintenance, 01/01/22 15:54:00 EDT, Tablet, [facility] #[id number], Partial fill upon patient request if the prescription is for a schedule II opioid drug., 186, cm, 01/01/22 11:49:00 E... Start Date: 01/01/22 Stop Date: 01/31/22 Status: Ordered docusate sodium 100 mg oral capsule 100 mg, 1, capsule, By Mouth, 2 times a day, # 60 capsule, Refills 0, Tot. Refills 0, Maintenance, 06/20/21 23:57:00 EDT, Route to Pharmacy Electronically, [facility] #[id number], Partial fill upon patient request if the prescription is for a salima... Start Date: 06/20/21 Status: Ordered furosemide 40 mg oral tablet 80 mg, 2, tablet, By Mouth, Daily, # 14 tablet, Refills 1, Tot. Refills 1, Maintenance, 01/02/22 9:27:00 EDT, Route to Pharmacy Electronically, [facility] #[id number], Partial fill upon patient request if the prescription is for a schedule II opi... Start Date: 01/02/22 Stop Date: 01/16/22 Status: Ordered hydrOXYzine pamoate 25 mg oral capsule 2 capsule = 50 mg, By Mouth, 3 times a day, PRN Anxiety, for 7 days, # 30 capsule, 2 Refills, Acute01/22/22 15:54:00 EST, 01/01/22 15:54:00 EDT, Capsule, [facility] #[id number], Partial fill upon patient request if the prescription is for a sche... Start Date: 01/01/22 Stop Date: 01/22/22 Status: Ordered levothyroxine 0.05 mg oral tablet 1 tablet = 50 mcg, By Mouth, Daily, # 14 tablet, 1 Refills, Maintenance, 01/02/22 9:22:00 EDT, Tablet, [facility] #[id number], Partial fill upon patient request if the [...] 2 Refills, Maintenance, 01/01/22 15:54:00 EDT, Capsule, [facility] #[id number], Partial fill upon patient request if the [...] 01/02/22 9:33:00 EDT, Route to Pharmacy Electronically, [facility] #[id number], Partialfill upon patient request if the prescription [...] [Reference Range]: 1 2 Height 183 cm (01/08/22 8:32 AM) 183 cm (01/08/22 4:41 AM) Weight 104.1 kg (01/08/22 8:32 AM) 104.1 kg (01/08/22 4:41 AM) Dry Weight 104.1 kg (01/08/22 8:32 AM) 104.1 kg (01/08/22 4:41 AM) Weight Obtained Via Patient/family state d (01/08/22 4:41 AM) Dry Weight Obtained Via Patient/family s tated (01/08/22 4:41 AM) Social History Social History Type Response [...] Code MRI Safety Implantable Status 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 [id number] Unknown [id number] Unknown 03/11/21 Unknown Unknown Active GS1 Patient Care team information Personnel Name: Soto RAMIREZ MD, Bal Serrano Address: Address: [address] [place] [phone]
--- OUTSIDE RECORDS SUMMARY | 2022-10-14 11:51 | XMS_ITS | Continuity of Care Document ---
Author Name Unknown Organization [facility] Address [address] [place] [address]- Care Team Providers Care Steward/Stewardess Wine Name Role Phone Soto RAMIREZ MD, Bal Serrano Primary Care Physician Encounter [facility] Date(s): 07/14/20 - 07/14/[address] [address]- Discharge Disposition: A-D/C Home Attending Physician: Hieu [...] opioid drug. Start Date: 05/28/20 Status: Ordered acetaminophen-codeine 300 mg-30 mg oral tablet 1, tablet, By Mouth, Every 4 hours, PRN, # 10 tablet, Refills 0, Tot. Refills 0, Maintenance, for pain, 07/14/20 14:58:00 EDT, Route to Pharmacy Electronically, [facility] #[id number] Tablet, Partial fill upon patient request if the prescription... Start Date: 07/14/20 Status: Ordered Advair Diskus 250 mcg-50 mcg [...] 02/13/1911:48:23 EST, Aerosol, Route to Pharmacy Electronically, [id number], [facility]/pharmacy #1111 Start Date: 02/13/19 Status: Ordered amitriptyline 100 mg oral tablet 1 tablet = 100 mg, By Mouth, Daily at bedtime, # 7 tablet, 3 Refills, Maintenance, 04/15/20 10:15:00 EST, Tablet, [facility] #[id number], Partial fill upon patient request if the prescription isfor a schedule II opioid drug., 183, cm, 04/15/20 0... Start Date: 04/15/20 Stop Date: 05/13/20 Status: Ordered amitriptyline 25 mg oral tablet 75 mg, 3, tablet, By Mouth, Daily, # 21 tablet, Refills 3, Tot. Refills 3, Maintenance, 04/13/20 14:55:00 EST, Route to Pharmacy Electronically, [facility] #[id number], Partial fill upon patientrequest if the prescription is for a schedule II op... Start Date: 04/13/20 Stop Date: 05/11/20 Status: Ordered baclofen 10 mg oral tablet 20 mg, 2, tablet, By Mouth, 2 times a day, # 56 tablet, Refills 1, Tot. Refills 1, Maintenance, 04/13/20 14:54:00 EST, Route to Pharmacy Electronically, [facility] #[id number], Partial fill uponpatient request if the prescription is for a schedu... Start Date: 04/13/20 Stop Date: 05/11/20 Status: Ordered busPIRone 15 mg oral tablet 1 tablet = 15 mg, By Mouth, 3 times a day, # 42 tablet, 1 Refills, Maintenance, 04/13/20 14:56:00 EST, Tablet, [facility] #[id number], Partial fill upon patient request if the prescription is for a schedule II opioid drug., 183, cm, 04/13/20 9:04... Start Date: 04/13/20 Stop Date: 05/11/20 Status: Ordered fluticasone 50 mcg/inh nasal spray 2 sprays, Nares, Both, 2 times a day, # 9.9 mL, 0 Refills, Maintenance, 11/15/18 14:21:09 EDT, [place], 2 sprays Nares, Both 2 times a [...] 05/28/21 9:00:00 EDT, 05/28/20 15:55:00 EDT, Patch, [facility] #[id number], Partial fill upon patient request if the prescription is for aschedule II opioid drug., 1 patch Topically Daily,... Start Date: 05/28/20 Stop Date: 05/28/21 Status: Ordered propranolol 40 mg oral tablet 40 mg, 1, tablet, By Mouth, 2 times a day, # 28 tablet, Refills 1, Tot. Refills 1, Maintenance, 04/13/20 14:56:00 EST, Route to Pharmacy Electronically, [facility] #[id number], Partial fill uponpatient request if the prescription [...] 04/13/20 14:57:00 EST, Route to Pharmacy Electronically, [facility] #[id number], Partial fill upon patient request if the [...] 1 Refills, Maintenance, 04/13/20 14:55:00 EST, Tablet, [facility] #[id number], Partial fill upon patient request if the [...] oldest [Reference Range]: 1 Height 183 cm (07/14/20 1:23 PM) Weight 139.3 kg (07/14/20 1:23 PM) Oxygen Saturation [94-100 %] 100 % (07/14/20 1:23 PM) Pulse Rate [55-90 bpm] 82 bpm (07/14/20 1:23 PM) Blood Pressure [90-138/55-84 mm Hg] 137/ 80mm Hg (07/14/20 1:23 PM) Respiratory Rate [16-30 br/min] 16 br/mi n (07/14/20 1:23 PM) Temperature [96.8-100.4 DegF] 98 DegF (07/14/20 1:23 PM) Mode of Delivery (Oxygen) Room air (07/14/20 1:23 PM) Blood pressure sites Arm, right (07/14/20 1:23 PM) Temperature Route Oral (07/14/20 1:23 PM) Dry Weight 139.3 kg (07/14/20 1:23 PM) Weight Obtained Via Standing scale (07/14/20 1:23 PM) Dry Weight Obtained Via Standing scale (07/14/20 1:23 PM) Social History Social History Type Response Tobacco Use: 1PPD. Sex
--- NOTE | 2022-10-14 11:52 | PC.NURSE ---
x2 attempt for iv. staff trying for rn.
--- OUTSIDE RECORDS SUMMARY | 2022-10-14 11:52 | XMS_ITS | Continuity of Care Document ---
Author Name Unknown Organization [facility] Address [address] [place] [address]- Care Team Providers Care Ed Tech Name Role Phone Elijah Gibbons MD Primary Care Physician Encounter [facility] Date(s): 06/06/19 - 06/16/19 [facility] [address] [place] [address]- [facility] Attending Physician: AdmMike agee8 Admitting Physician: AdmtrAmandeep Referring Physician: Admtr, Ar8 Allergies, Adverse Reactions, Alerts Substance Reaction Severity Status Zoloft Active Thorazine Active traZODone Active ZyPREXA Active PROzac Active SEROquel Active Medications albuterol CFC free 90 mcg/inh inhalation aerosol 2, puffs, Inhalation, Every 4 hours, PRN, # 18 Gm, Refills 3, Tot. Refills 3, Maintenance, 02/13/1911:48:23 EST, Aerosol, Route to Pharmacy Electronically, [id number], [facility]/pharmacy #1111 Start Date: 02/13/19 Status: Ordered [...] Refills, Maintenance, 02/28/19 12:11:45 EST, EC Tablet, [facility]/pharmacy #1111, 183, cm, 02/28/19 11:39:08 EST, [...] Maintenance, 198:58:23 EST, Route to Pharmacy Electronically, [id number], [facility]/pharmacy #1111, 183, cm, 02/17/19 8:22:07 EST, Height, 127, kg... Start Date: 02/17/19 Status: Ordered fluticasone 50 mcg/inh nasal spray 2 sprays, Nares, Both, 2 times a day, # 9.9 mL, 0 Refills, Maintenance, 11/15/18 14:21:09 EDT, [place], 2 sprays Nares, Both 2 times a day Start Date: 11/15/18 Status: Ordered gabapentin 100 mg oral capsule 100 mg, 1, capsule, By Mouth, Daily at bedtime, # 30 capsule, Refills 0, Tot. Refills 0, Maintenance, 02/28/19 12:13:04 EST, Route to Pharmacy Electronically, [facility]/pharmacy #1111, 183, cm, 02/28/19 11:39:08 EST, [...]
--- OUTSIDE RECORDS SUMMARY | 2022-10-14 11:52 | XMS_ITS | Continuity of Care Document ---
Author Name Unknown Organization [facility] Address [address] [place] [address]- Care Team Providers Care Energy Sales Broker Name Role Phone Soto RAMIREZ MD, Bal Serrano Primary Care Physician Encounter [facility] Date(s): 05/14/20 - 05/14/[address] [address]- Discharge Disposition: A-D/C Home Attending Physician: Epi Vu MD Admitting Physician: [...] 04/18/20 14:17:00 EST, Route to Pharmacy Electronically, [facility] #[id number] Tablet, Partial fill upon patient request if the prescription... Start Date: 04/18/20 Status: Ordered albuterol CFC free 90 mcg/inh inhalation aerosol 2, puffs, Inhalation, Every 4 hours, PRN, # 18 Gm, Refills 3, Tot. Refills 3, Maintenance, 02/13/1911:48:23 EST, Aerosol, Route to Pharmacy Electronically, [id number], [facility]/pharmacy #1111 Start Date: 02/13/19 Status: Ordered amitriptyline 100 mg oral tablet 1 tablet = 100 mg, By Mouth, Daily at bedtime, # 7 tablet, 3 Refills, Maintenance, 04/15/20 10:15:00 EST, Tablet, [facility] #[id number], Partial fill upon patient request if the prescription isfor a schedule II opioid drug., 183, cm, 04/15/20 0... Start Date: 04/15/20 Stop Date: 05/13/20 Status: Ordered amitriptyline 25 mg oral tablet 75 mg, 3, tablet, By Mouth, Daily, # 21 tablet, Refills 3, Tot. Refills 3, Maintenance, 04/13/20 14:55:00 EST, Route to Pharmacy Electronically, [facility] #[id number], Partial fill upon patientrequest if the prescription is for a schedule II op... Start Date: 04/13/20 Stop Date: 05/11/20 Status: Ordered baclofen 10 mg oral tablet 20 mg, 2, tablet, By Mouth, 2 times a day, # 56 tablet, Refills 1, Tot. Refills 1, Maintenance, 04/13/20 14:54:00 EST, Route to Pharmacy Electronically, [facility] #[id number], Partial fill uponpatient request if the prescription is for a schedu... Start Date: 04/13/20 Stop Date: 05/11/20 Status: Ordered busPIRone 15 mg oral tablet 1 tablet = 15 mg, By Mouth, 3 times a day, # 42 tablet, 1 Refills, Maintenance, 04/13/20 14:56:00 EST, Tablet, [facility] #[id number], Partial fill upon patient request if the prescription is for a schedule II opioid drug., 183, cm, 04/13/20 9:04... Start Date: 04/13/20 Stop Date: 05/11/20 Status: Ordered fluticasone 50 mcg/inh nasal spray 2 sprays, Nares, Both, 2 times a day, # 9.9 mL, 0 Refills, Maintenance, 11/15/18 14:21:09 EDT, [place], 2 sprays Nares, Both 2 times a day Start Date: 11/15/18 Status: Ordered levothyroxine 0.05 mg oral tablet 1 tablet = 50 mcg, By Mouth, Daily, # 14 tablet, 1 Refills, Maintenance, 04/15/20 10:10:00 EST, Tablet, [facility] #[id number], Partial fill upon patient request if the [...] 10/11/20 12:36:00 EDT, 04/14/20 12:36:00 EST, Patch, [facility] #[id number], Partial fillupon patient request if the prescription is for a s... Start Date: 04/14/20 Stop Date: 10/11/20 Status: Ordered propranolol 40 mg oral tablet 40 mg, 1, tablet, By Mouth, 2 times a day, # 28 tablet, Refills 1, Tot. Refills 1, Maintenance, 04/13/20 14:56:00 EST, Route to Pharmacy Electronically, [facility] #[id number], Partial fill uponpatient request if the prescription [...] 04/13/20 14:57:00 EST, Route to Pharmacy Electronically, [facility] #[id number], Partial fill upon patient request if the prescription is for a schedul... Start Date: 04/13/20 Stop Date: 05/11/20 Status: Ordered topiramate 200 mg oral tablet 1 tablet = 200 mg, By Mouth, 2 times a day, # 28 tablet, 1 Refills, Maintenance, 04/13/20 14:55:00 EST, Tablet, [facility] #[id number], Partial fill upon patient request if the prescription is for a schedule II opioid drug., 183, cm, 04/13/20 9:0... Start Date: 04/13/20 Stop Date: 05/11/20 Status: Ordered traMADol 50 mg oral tablet 1 tablet = 50 mg, By Mouth, Every 12 hours, PRN as needed for pain, # 10 tablet, 0 Refills, Maintenance, 04/22/20 15:54:00 EST, Tablet, [facility] #[id number], Partial fill upon patient request if the [...] oldest [Reference Range]: 1 Height 183 cm (05/14/20 5:23 PM) Weight 139.1 kg (05/14/20 5:23 PM) Oxygen Saturation [94-100 %] 99 % (05/14/20 5:23 PM) Pulse Rate [55-90 bpm] 87 bpm (05/14/20 5:23 PM) Blood Pressure [90-138/55-84 mm Hg] 152/ 104mm Hg *H* (05/14/20 5:23 PM) Respiratory Rate [16-30 br/min] 20 br/mi n (05/14/20 5:23 PM) Temperature [96.8-100.4 DegF] 98.5 DegF (05/14/20 5:23 PM) Mode of Delivery (Oxygen) Room air (05/14/20 5:23 PM) Blood pressure sites Arm, right (05/14/20 5:23 PM) Temperature Route Oral (05/14/20 5:23 PM) Dry Weight 139.1 kg (05/14/20 5:23 PM) Weight Obtained Via Standing scale (05/14/20 5:23 PM) Social History Social History Type Response Smoking Status 10 or more cigarette s (1/2 pack or more)/day in last 30 days; Tobacco user in household: No entered on: 11/15/18 Sex
--- OUTSIDE RECORDS SUMMARY | 2022-10-14 11:52 | XMS_ITS | Continuity of Care Document ---
Author Name Unknown Organization [facility] Address [address] [place] [address]- Care Team Providers Care Truck Jumper Name Role Phone Elijah Gibbons MD Primary Care Physician Encounter [facility] Date(s): 02/28/19 - 03/07/19 [facility] [address] [place] [address]- [facility] Attending Physician: Elmer Garcia MD Allergies, Adverse Reactions, Alerts Substance Reaction Severity Status Zoloft Active Thorazine Active traZODone Active ZyPREXA Active PROzac Active SEROquel Active Medications albuterol CFC free 90 mcg/inh inhalation aerosol 2, puffs, Inhalation, Every 4 hours, PRN, # 18 Gm, Refills 3, Tot. Refills 3, Maintenance, 02/13/1911:48:23 EST, Aerosol, Route to Pharmacy Electronically, [id number], [facility]1111 Start Date: 02/13/19 Status: Ordered [...] Maintenance, 198:58:23 EST, Route to Pharmacy Electronically, [id number], [facility]/pharmacy #1111, 183, cm, 02/17/19 8:22:07 EST, Height, 127, kg... Start Date: 02/17/19 Status: Ordered fluticasone 50 mcg/inh nasal spray 2 sprays, Nares, Both, 2 times a day, # 9.9 mL, 0 Refills, Maintenance, 11/15/18 14:21:09 EDT, [place], 2 sprays Nares, Both 2 times a day Start Date: 11/15/18 Status: Ordered gabapentin 100 mg oral capsule 100 mg, 1, capsule, By Mouth, Daily at bedtime, # 30 capsule, Refills 0, Tot. Refills 0, Maintenance, 02/28/19 12:13:04 EST, Route to Pharmacy Electronically, [facility]/pharmacy #1111, 183, cm, 02/28/19 11:39:08 EST, Height, 124, kg, 02/22/19 8:26:27 EST, D... Start Date: 02/28/19 Status: Ordered hydrOXYzine hydrochloride 50 mg oral tablet 1 tablet = 50 mg, By Mouth, 4 times a day, PRN for anxiety, # 40 tablet, 0 Refills, Acute 03/21/19 12:10:00 EST, 02/28/19 12:09:57 EST, Tablet, [facility]/pharmacy #1111, 183, cm, 02/28/19 11:39:08 EST, Height, [...] oldest [Reference Range]: 1 Height 183 cm (02/28/19 11:39 AM) Weight 127.1 kg (02/28/19 11:39 AM) Oxygen Saturation [94-100 %] 99 % (02/28/19 11:39 AM) Pulse Rate [55-90 bpm] 130 bpm *H* (02/28/19 11:39 AM) Body Mass Index [18.5-24.99] 37.95 *>HHI* (02/28/19 11:39 AM) Blood Pressure [90-138/55-84 mm Hg] 106/ 94mm Hg (02/28/19 11:39 AM) Respiratory Rate [16-30 br/min] 20 br/mi n (02/28/19 11:39 AM) Liters per Minute 0 L/min (02/28/19 11:39 AM) Mode of Delivery (Oxygen) Room air (02/28/19 11:39 AM) Blood pressure sites Arm, right (02/28/19 11:39 AM) Temperature Route Oral (02/28/19 11:39 AM) Social History Social History Type Response Smoking Status 5-9 cigarettes (betw een 1/4 to 1/2 pack)/day in last 30 days; Tobacco user in household: No entered on: 02/28/19 Sex
--- OUTSIDE RECORDS SUMMARY | 2022-10-14 11:52 | XMS_ITS | Continuity of Care Document ---
Author Name Unknown Organization [facility] Address [address] [place] [address]- Care Team Providers Care Qa Software Test Engineer Name Role Phone Soto RAMIREZ MD, Bal Serrano Primary Care Physician Encounter [facility] Date(s): 01/13/21 - 01/13/[address] [address]- Discharge Disposition: A-D/C Home Attending Physician: Mansoor [...] 02/13/1911:48:23 EST, Aerosol, Route to Pharmacy Electronically, [id number], [facility]/pharmacy #1111 Start Date: 02/13/19 [...] 3 Refills, Maintenance, 04/15/20 10:15:00 EST, Tablet, [facility] #[id number], Partial fill upon patient request if the prescription isfor a schedule II opioid drug., 183, cm, 04/15/20 0... Start Date: 04/15/20 Stop Date: 05/13/20 Status: Ordered amitriptyline 25 mg oral tablet 75 mg, 3, tablet, By Mouth, Daily, # 21 tablet, Refills 3, Tot. Refills 3, Maintenance, 04/13/20 14:55:00 EST, Route to Pharmacy Electronically, [facility] #[id number], Partial fill upon patientrequest if the prescription is for a schedule II op... Start Date: 04/13/20 Stop Date: 05/11/20 Status: Ordered baclofen 10 mg oral tablet 20 mg, 2, tablet, By Mouth, 2 times a day, # 56 tablet, Refills 1, Tot. Refills 1, Maintenance, 04/13/20 14:54:00 EST, Route to Pharmacy Electronically, [facility] #[id number], Partial fill uponpatient request if the prescription is for a schedu... Start Date: 04/13/20 Stop Date: 05/11/20 Status: Ordered busPIRone 15 mg oral tablet 1 tablet = 15 mg, By Mouth, 3 times a day, # 42 tablet, 1 Refills, Maintenance, 04/13/20 14:56:00 EST, Tablet, [facility] #[id number], Partial fill upon patient request if the prescription is for a schedule II opioid drug., 183, cm, 04/13/20 9:04... Start Date: 04/13/20 Stop Date: 05/11/20 Status: Ordered cloNIDine 0.1 mg oral tablet 0.1 mg, 1, tablet, By Mouth, 2 times a day, # 10 tablet, Refills 0, Tot. Refills 0, Maintenance, 10/22/20 15:02:00 EDT, Route to Pharmacy Electronically, [facility] #[id number], Partial fill upon patient request if the [...] 09/13/20 14:45:00 EDT, Route to Pharmacy Electronically, [facility] #[id number], Partial fill upon patient request if the prescription is for a salima... Start Date: 09/13/20 Status: Ordered doxycycline monohydrate 100 mg oral capsule 1 capsule = 100 mg, By Mouth, 2 times a day, for 7 days, # 14 capsule, 0 Refills, Acute 01/20/21 17:48:00 EST, 01/13/21 17:48:00 EDT, Capsule, [facility] #[id number], Partial fill upon patient request if the prescription is for a schedule II opio... Start Date: 01/13/21 Stop Date: 01/20/21 Status: Ordered Flomax 0.4 mg oral capsule 0.4 mg, 1, capsule, By Mouth, Daily, # 30 capsule, Refills 0, Tot. Refills 0, Maintenance, 10/22/2121:52:00 EDT, Route to Pharmacy Electronically, [facility] #[id number], Partial fill upon patient request if the prescription is for a schedule II... Start Date: 10/22/20 Status: Ordered fluticasone 50 mcg/inh nasal spray 2 sprays, Nares, Both, 2 times a day, # 9.9 mL, 0 Refills, Maintenance, 11/15/18 14:21:09 EDT, [place], 2 sprays Nares, Both 2 times a [...] 0 Refills, Maintenance, 01/07/21 18:42:00 EDT, Tablet, [facility] #[id number], Partial fill upon patient request if the prescription is for a schedule II opioid drug., 183, cm, 01/07/21 17:... Start Date: 01/07/21 Status: Ordered nicotine 14 mg/24 hr transdermal film, extended release 1 patch, Topically, Daily, # 30 patch, 0 Refills, Acute 05/28/21 9:00:00 EDT, 05/28/20 15:55:00 EDT, Patch, [facility] #[id number], Partial fill upon patient request if the prescription is for aschedule II opioid drug., 1 patch Topically Daily,... Start Date: 05/28/20 Stop Date: 05/28/21 Status: Ordered propranolol 40 mg oral tablet 40 mg, 1, tablet, By Mouth, 2 times a day, # 28 tablet, Refills 1, Tot. Refills 1, Maintenance, 04/13/20 14:56:00 EST, Route to Pharmacy Electronically, [facility] #[id number], Partial fill uponpatient request if the prescription [...] 04/13/20 14:57:00 EST, Route to Pharmacy Electronically, [facility] #[id number], Partial fill upon patient request if the [...] 0 Refills, Maintenance, 07/27/20 19:15:00 EDT, Tablet, [facility] #[id number], Partial fill upon patient request if the [...] oldest [Reference Range]: 1 Height 183 cm (01/13/21 5:33 PM) Weight 148.6 kg (01/13/21 5:33 PM) Oxygen Saturation [94-100 %] 99 % (01/13/21 5:33 PM) Pulse Rate [55-90 bpm] 92 bpm *H* (01/13/21 5:33 PM) Blood Pressure [90-138/55-84 mm Hg] 139/ 80mm Hg *H* (01/13/21 5:33 PM) Respiratory Rate [16-30 br/min] 16 br/mi n (01/13/21 5:33 PM) Temperature [96.8-100.4 DegF] 97.6 DegF (01/13/21 5:33 PM) Mode of Delivery (Oxygen) Room air (01/13/21 5:33 PM) Dry Weight 148.6 kg (01/13/21 5:33 PM) Weight Obtained Via Standing scale (01/13/21 5:33 PM) Social History Social History Type Response Tobacco Use: 1PPD. Sex Medical Equipment Implanted Date:09/13/20Target Site:Abdomen Description Quantity MRI Company Model MESH VENTRALIGHT ECHO ELLIPS 4 - BARD ([id number]) 1 Bard Unknown HAYDEE:{01}[id number] Assigning Author ity:FDA
--- OUTSIDE RECORDS SUMMARY | 2022-10-14 11:52 | XMS_ITS | Continuity of Care Document ---
Author Name Unknown Organization [facility] Address [address] [place] [address]- Care Team Providers Care Kiss Setter Hand Name Role Phone Jose HENDERSON, Elmer Bravo Primary Care Physician Encounter [facility] Date(s): 02/21/19 - 02/21/[address] [address]- [place] Discharge Disposition: A-D/C Home Attending Physician: Xavier [...] 02/13/1911:48:23 EST, Aerosol, Route to Pharmacy Electronically, [id number], [facility]/pharmacy #1111 Start Date: 02/13/19 Status: Ordered baclofen 20 mg oral tablet See Instructions, 1 tablet By Mouth once at bedtime, # 30 tablet, Refills 0, Tot. Refills 0, Maintenance, 02/13/19 16:26:19 EST, Instructions Replace Required Details, Route to Pharmacy Electronically, [id number], [facility] Start Date: 02/13/19 Status: Ordered benztropine [...] Maintenance, 198:58:23 EST, Route to Pharmacy Electronically, [id number], [facility]/pharmacy #1111, 183, cm, 02/17/19 8:22:07 EST, Height, 127, kg... Start Date: 02/17/19 Status: Ordered fluticasone 50 mcg/inh nasal spray 2 sprays, Nares, Both, 2 times a day, # 9.9 mL, 0 Refills, Maintenance, 11/15/18 14:21:09 EDT, [place], 2 sprays Nares, Both 2 times a day Start Date: 11/15/18 Status: Ordered gabapentin 800 mg oral tablet 1 tablet = 800 mg, By Mouth, 3 times a day, # 90 tablet, 0 Refills, Maintenance, 02/12/19 4:41:59 EST, Tablet Start Date: 02/12/19 Status: Ordered levothyroxine 0.05 mg oral tablet [...] EC Tablet Start Date: 11/15/18 Status: Ordered thioridazine 100 mg oral tablet [...] oldest [Reference Range]: 1 Height 183 cm (02/21/19 2:09 PM) Weight 124.4 kg (02/21/19 2:09 PM) Oxygen Saturation [94-100 %] 100 % (02/21/19 2:09 PM) Pulse Rate [55-90 bpm] 96 bpm *H* (02/21/19 2:09 PM) Blood Pressure [90-138/55-84 mm Hg] 110/ 62mm Hg (02/21/19 2:09 PM) Respiratory Rate [16-30 br/min] 20 br/mi n (02/21/19 2:09 PM) Temperature [96.8-100.4 DegF] 99.4 DegF (02/21/19 2:09 PM) Mode of Delivery (Oxygen) Room air (02/21/19 2:09 PM) Blood pressure sites Arm, right (02/21/19 2:09 PM) Temperature Route Temporal (02/21/19 2:09 PM) Dry Weight 124.4 kg (02/21/19 2:09 PM) Weight Obtained Via Standing scale (02/21/19 2:09 PM) Social History Social History Type Response Smoking Status 5-9 cigarettes (betw een 1/4 to 1/2 pack)/day in last 30 days entered on: 02/13/19 Sex
--- OUTSIDE RECORDS SUMMARY | 2022-10-14 11:52 | XMS_ITS | Continuity of Care Document ---
Author Name Unknown Organization [facility] Address [address] [place] [address]- Care Team Providers Care Pmp Project Manager Name Role Phone Elijah Gibbons MD Primary Care Physician Encounter [facility] Date(s): 11/04/19 - 11/05/[address] [address]- [facility] Discharge Disposition: A-D/C Home Attending Physician: Mansoor [...] 02/13/1911:48:23 EST, Aerosol, Route to Pharmacy Electronically, [id number], [facility]/pharmacy #[id number] Start Date: [...] 0 Refills, Maintenance, 02/28/19 12:08:43 EST, Tablet, [facility]/pharmacy #[id number], 183, cm, 02/28/19 11:39:08 [...] Refills, Maintenance, 02/28/19 12:11:45 EST, EC Tablet, [facility]/pharmacy #[id number], 183, cm, 02/28/19 11:39:08 [...] Maintenance, 198:58:23 EST, Route to Pharmacy Electronically, [id number], [facility]/pharmacy #1111, 183, cm, 02/17/19 8:22:07 EST, Height, 127, kg... Start Date: 02/17/19 Status: Ordered fluticasone 50 mcg/inh nasal spray 2 sprays, Nares, Both, 2 times a day, # 9.9 mL, 0 Refills, Maintenance, 11/15/18 14:21:09 EDT, [place], 2 sprays Nares, Both 2 times a day Start Date: 11/15/18 Status: Ordered furosemide 20 mg oral tablet 20 mg, 1, tablet, By Mouth, 2 times a day, # 60 tablet, Refills 0, Tot. Refills 0, Maintenance, 10/12/19 19:13:00 EDT, Route to Pharmacy Electronically, [facility]/pharmacy #1111, 180, cm, 10/12/19 19:05:00EDT, Height, 135, kg, 10/12/19 19:05:00 EDT, Dry We... Start Date: 10/12/19 Status: Ordered gabapentin 800 mg oral tablet 1 tablet = 800 mg, By Mouth, 3 times a day, # 90 tablet, 1 Refills, Maintenance, 10/05/19 17:25:00 EDT, Tablet, [facility]/pharmacy #1111, 183, cm, 10/05/19 16:47:00 EDT, [...] Range]: 1 2 3 Height 183 cm (11/04/19 9:12 PM) Weight 131.8 kg (11/04/19 9:12 PM) Oxygen Saturation [94-100 %] 99 % (11/05/19 5:07 AM) 99 % (11/05/19 4:19 AM) 96 % (11/05/19 3:12 AM) Pulse Rate [55-90 bpm] 80 bpm (11/05/19 5:07 AM) 79 bpm (11/05/19 4:19 AM) 82 bpm (11/05/19 3:12 AM) Blood Pressure [90-138/55-84 mm Hg] 105/55mm Hg (11/05/19 5:07 AM) 105/67mm Hg (11/05/19 4:19 AM) 105/57mm Hg (11/05/19 3:12 AM) Respiratory Rate [16-30 br/min] 17 br/min (11/05/19 5:07 AM) 17 br/min (11/05/19 4:19 AM) 17 br/min (11/05/19 3:12 AM) Temperature [96.8-100.4 DegF] 97.0 DegF (11/04/19 9:12 PM) Mode of Delivery (Oxygen) Room air (11/05/19 5:07 AM) Room air (11/05/19 4:19 AM) Room air (11/05/19 3:12 AM) Blood pressure sites Arm, left (11/05/19 5:07 AM) Arm, left (11/05/19 4:19 AM) Arm, left (11/05/19 3:12 AM) Temperature Route Temporal (11/04/19 9:12 PM) Dry Weight 131.8 kg (11/04/19 9:12 PM) Weight Obtained Via Patient/family state d (11/04/19 9:12 PM) Dry Weight Obtained Via Patient/family s tated (11/04/19 9:12 PM) Social History Social History Type Response Smoking Status 10 or more cigarette s (1/2 pack or more)/day in last 30 days; Tobacco user in household: No entered on: 11/15/18 Sex
--- OUTSIDE RECORDS SUMMARY | 2022-10-14 11:52 | XMS_ITS | Continuity of Care Document ---
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 Name Role Phone Soto RAMIREZ MD, Bal Serrano Primary Care Physician ( [phone] Encounter [facility] Date(s): 07/27/20 - 07/27/[address] [address]- Discharge Disposition: A-D/C Home Attending Physician: Mansoor [...] 02/13/1911:48:23 EST, Aerosol, Route to Pharmacy Electronically, [id number], [facility]/pharmacy #1111 Start Date: 02/13/19 Status: Ordered amitriptyline 100 mg oral tablet 1 tablet = 100 mg, By Mouth, Daily at bedtime, # 7 tablet, 3 Refills, Maintenance, 04/15/20 10:15:00 EST, Tablet, [facility] #[id number], Partial fill upon patient request if the prescription isfor a schedule II opioid drug., 183, cm, 04/15/20 0... Start Date: 04/15/20 Stop Date: 05/13/20 Status: Ordered amitriptyline 25 mg oral tablet 75 mg, 3, tablet, By Mouth, Daily, # 21 tablet, Refills 3, Tot. Refills 3, Maintenance, 04/13/20 14:55:00 EST, Route to Pharmacy Electronically, [facility] #[id number], Partial fill upon patientrequest if the prescription is for a schedule II op... Start Date: 04/13/20 Stop Date: 05/11/20 Status: Ordered baclofen 10 mg oral tablet 20 mg, 2, tablet, By Mouth, 2 times a day, # 56 tablet, Refills 1, Tot. Refills 1, Maintenance, 04/13/20 14:54:00 EST, Route to Pharmacy Electronically, [facility] #[id number], Partial fill uponpatient request if the prescription is for a schedu... Start Date: 04/13/20 Stop Date: 05/11/20 Status: Ordered busPIRone 15 mg oral tablet 1 tablet = 15 mg, By Mouth, 3 times a day, # 42 tablet, 1 Refills, Maintenance, 04/13/20 14:56:00 EST, Tablet, [facility] #[id number], Partial fill upon patient request if the prescription is for a schedule II opioid drug., 183, cm, 04/13/20 9:04... Start Date: 04/13/20 Stop Date: 05/11/20 Status: Ordered CeleBREX 100 mg oral capsule 1 capsule = 100 mg, By Mouth, 2 times a day, # 15 capsule, 0 Refills, Maintenance, 07/27/20 19:07:00 EDT, Capsule, [facility] #[id number], Partial fill upon patient request if the prescription is for a schedule II opioid drug., 184, cm, 07/27/20... Start Date: 07/27/20 Status: Ordered fluticasone 50 mcg/inh nasal spray 2 sprays, Nares, Both, 2 times a day, # 9.9 mL, 0 Refills, Maintenance, 11/15/18 14:21:09 EDT, [place], 2 sprays Nares, Both 2 times a [...] 05/28/21 9:00:00 EDT, 05/28/20 15:55:00 EDT, Patch, [facility] #[id number], Partial fill upon patient request if the prescription is for aschedule II opioid drug., 1 patch Topically Daily,... Start Date: 05/28/20 Stop Date: 05/28/21 Status: Ordered propranolol 40 mg oral tablet 40 mg, 1, tablet, By Mouth, 2 times a day, # 28 tablet, Refills 1, Tot. Refills 1, Maintenance, 04/13/20 14:56:00 EST, Route to Pharmacy Electronically, [facility] #[id number], Partial fill uponpatient request if the prescription [...] 04/13/20 14:57:00 EST, Route to Pharmacy Electronically, [facility] #[id number], Partial fill upon patient request if the [...] 1 Refills, Maintenance, 04/13/20 14:55:00 EST, Tablet, [facility] #[id number], Partial fill upon patient request if the prescription is for a schedule II opioid drug., 183, cm, 04/13/20 9:0... Start Date: 04/13/20 Stop Date: 05/11/20 Status: Ordered traMADol 50 mg oral tablet 1 tablet = 50 mg, By Mouth, Every 12 hours, PRN for pain, # 10 tablet, 0 Refills, Maintenance, 07/27/20 19:15:00 EDT, Tablet, [facility] #[id number], Partial fill upon patient request if the [...] oldest [Reference Range]: 1 Height 183 cm (07/27/20 11:24 AM) Weight 140.3 kg (07/27/20 11:24 AM) Oxygen Saturation [94-100 %] 96 % (07/27/20 11:24 AM) Pulse Rate [55-90 bpm] 92 bpm *H* (07/27/20 11:24 AM) Systolic Blood Pressure [90-138 mm Hg] 1 36 mm Hg (07/27/20 11:24 AM) Respiratory Rate [16-30 br/min] 16 br/mi n (07/27/20 11:24 AM) Mode of Delivery (Oxygen) Room air (07/27/20 11:24 AM) Dry Weight 140.3 kg (07/27/20 11:24 AM) Weight Obtained Via Patient/family state d (07/27/20 11:24 AM) Social History Social History Type Response Tobacco Use: 1PPD. Sex
--- OUTSIDE RECORDS SUMMARY | 2022-10-14 11:52 | XMS_ITS | Continuity of Care Document ---
Author Name Unknown Organization 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 Start Date: 06/20/21 Status: Ordered amitriptyline 150 mg oral tablet 1 tablet = 150 mg, By Mouth, Daily at bedtime, # 5 tablet, 4 Refills, Maintenance, 07/11/21 11:18:00 EDT, Tablet, [facility] #[id number], Partial fill upon patient request if the prescription isfor a schedule II opioid drug., 182, cm, 06/20/21 2... Start Date: 07/11/21 Stop Date: 08/05/21 Status: Ordered ARIPiprazole 15 mg oral tablet 15 mg, 1, tablet, By Mouth, Daily, # 7 tablet, Refills 3, Tot. Refills 3, Maintenance, 07/14/21 11:18:00 EDT, Route to Pharmacy Electronically, [facility] #[id number], Partial fill upon patient request if the [...] 3 Refills, Maintenance, 07/14/21 11:19:00 EDT, Tablet, [facility] #[id number], Partial fill upon patient request if the [...] 06/20/21 23:55:00 EDT, Route to Pharmacy Electronically, [facility] #[id number], Partial fill upon patient request if the [...] 3 Refills, Maintenance, 07/14/21 11:19:00 EDT, Tablet, [facility] #[id number], Partial fill upon patient request if the prescription is for a schedule II opioid drug., 182, cm, 06/20/21 23:10:00 EDT... Start Date: 07/14/21 Stop Date: 08/11/21 Status: Ordered docusate sodium 100 mg oral capsule 100 mg, 1, capsule, By Mouth, 2 times a day, # 60 capsule, Refills 0, Tot. Refills 0, Maintenance, 06/20/21 23:57:00 EDT, Route to Pharmacy Electronically, [facility] #[id number], Partial fill upon patient request if the prescription is for a salima... Start Date: 06/20/21 Status: Ordered doxycycline hyclate 100 mg oral capsule 1 capsule = 100 mg, By Mouth, 2 times a day, for 7 days, # 14 capsule, 0 Refills, Acute 12/15/21 10:47:00 EDT, 12/08/21 10:47:00 EDT, Capsule, [facility] #[id number], Partial fill upon patient request if the prescription is for a schedule II opio... Start Date: 12/08/21 Stop Date: 12/15/21 Status: Ordered Flomax 0.4 mg oral capsule 0.4 mg, 1, capsule, By Mouth, Daily, # 30 capsule, Refills 0, Tot. Refills 0, Maintenance, 06/20/2222:57:00 EDT, Route to Pharmacy Electronically, [facility] #[id number], Partial fill upon patient request if the prescription is for a schedule II... Start Date: 06/20/21 Status: Ordered fluticasone 50 mcg/inh nasal spray 2 sprays, Nares, Both, 2 times a day, # 9.9 mL, 0 Refills, Maintenance, 11/15/18 14:21:09 EDT, [place], 2 sprays Nares, Both 2 times a [...] drug. Start Date: 09/07/21 Status: Ordered Methadone Tablet 45 mg, Liquid, By Mouth, Once, Routine, 12/09/21 15:00:00 EDT, Stop date 12/09/21 15:00:00 EDT Start Date: 12/09/21 Stop Date: 12/09/21 Status: Completed methocarbamol 500 mg oral tablet [...] 09/08/21 5:22:00 EDT, Route to Pharmacy Electronically, [id number], Partial fill upon patient request if the [...] Exam Date Time Procedure Performing Provider Status 12/09/21 11:41 AM Shoulder Min 2 Views Left Forhan , Se an; Auth (Verified) Notes: (Shoulder Min 2 Views Left) Reason For Exam: with Pain;Trauma RESULT: Shoulder Min 2 Views Left Shoulder Min 2 Views Left, 3 views Hx of Present Illness: Pt states that he slipped and fell this morning. Pt c o left shoulder pain. Skin tear to the back of his right knee.; Reason: Trauma; with Pain; Clinical Question(s): Fracture COMPARISON: None. FINDINGS: No fracture or dislocation. No arthritic change of the glenohumeral joint. Normal AC joint and portions of the clavicle included on the exam. No calcification of the rotator cuff. IMPRESSION: Normal. WSN: [id number] Ordering Physician: Gokul Wallace Dictated By: Felicitas Lacey MD Dictated Date/Time: 12/09/21 12:01 p Reviewed By: Felicitas Lacey MD Signed By: Felicitas Lacey MD Signed Date/Time: 12/09/21 12:01 pm Transcribed By: RAVINDER Transcribed Date/Time: 12/09/21 12:00 pm * Exam Date Time Procedure Performing Provider Status 12/09/21 11:41 AM Knee 1 or 2 Views Right Pedrito Oliva ; Auth (Verified) Notes: (Knee 1 or 2 Views Right) Reason For Exam: with Pain;Trauma RESULT: Knee 1 or 2 Views Right Knee 1 or 2 Views Right, 2 views Hx of Present Illness: Pt states that he lipped and fell this morning. Pt c o left shoulder pain. Skin tear to the back of his right knee.; Reason: Trauma; with Pain; Clinical Question(s): Fracture COMPARISON: 08/23/21. FINDINGS: Examination is limited by obliquity on the AP/supine view. Linear lucency seen extending to the lateral tibial plateau on this image without articulating surface step-off. This is vertically oriented. Mild lateral subluxation of the patella is unchanged from prior exam and is likely a chronic finding. There is a subchondral cyst seen in the patella. Overall mild tricompartmental osteophytic changes. There is a moderate knee joint effusion and regional soft tissue swelling. IMPRESSION: There is a moderate knee joint effusion and regional soft tissue swelling. Linear lucency seen at the lateral tibial plateau. This is most likely a vascular channel -- given no extension seen to cortex at the tibial plateau and no step off is not present. Suggest immobilization and consider short interval radiographic (xray) follow up id there is persistent clinical concern. WSN: [id number] Ordering Physician: Gokul Wallace Dictated By: Felicitas Lacey MD Dictated Date/Time: 12/09/21 11:58 a Reviewed By: Felicitas Lacey MD Signed By: Felicitas Lacey MD Signed Date/Time: 12/09/21 11:58 am Transcribed By: RAVINDER Transcribed Date/Time: 12/09/21 11:42 am Vital Signs Most recent to oldest [Reference Range]: 1 2 3 Height 186 cm (12/09/21 1:56 PM) 186 cm (12/09/21 9:00 AM) Weight 88.5 kg (12/09/21 1:56 PM) 88.5 kg (12/09/21 9:00 AM) Oxygen Saturation [94-100 %] 98 % (12/09/21 1:56 PM) 99 % (12/09/21 9:00 AM) Pulse Rate [55-90 bpm] 77 bpm (12/09/21 1:56 PM) 67 bpm (12/09/21 9:00 AM) Body Mass Index [18.5-24.99 kg/m2] 25.58 kg/m2 *H* (12/09/21 1:56 PM) Blood Pressure [90-138/55-84 mm Hg] 116/73mm Hg (12/09/21 1:56 PM) Respiratory Rate [16-30 br/min] 20 br/min (12/09/21 2:15 PM) 18 br/min (12/09/21 1:56 PM) 18 br/min (12/09/21 9:00 AM) Temperature [96.8-100.4 DegF] 97.8 DegF (12/09/21 1:56 PM) 96.5 DegF *L* (12/09/21 9:00 AM) Mode of Delivery (Oxygen) Room air (12/09/21 1:56 PM) Room air (12/09/21 9:00 AM) Blood pressure sites Arm, left (12/09/21 1:56 PM) Arm, right (12/09/21 9:00 AM) Temperature Route Temporal (12/09/21 1:56 PM) Temporal (12/09/21 9:00 AM) Dry Weight 88.5 kg (12/09/21 1:56 PM) 88.5 kg (12/09/21 9:00 AM) Dry Weight Obtained Via Patient/family s tated (12/09/21 9:00 AM) Social History Social History Type Response [...] Code MRI Safety Implantable Status 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 Pt c o left shoulder pain. Skin tear to the back of his right knee.; Reason: Trauma; with Pain; Clinical Question(s): Fracture COMPARISON: 08/23/21. FINDINGS: Examination is limited by obliquity on the AP/supine view. Linear lucency seen extending to the lateral tibial plateau on this image without articulating surface step-off. This is vertically oriented. Mild lateral subluxation of the patella is unchanged from prior exam and is likely a chronic finding. There is a subchondral cyst seen in the patella. Overall mild tricompartmental osteophytic changes. There is a moderate knee joint effusion and regional soft tissue swelling. IMPRESSION: There is a moderate knee joint effusion and regional soft tissue swelling. Linear lucency seen at the lateral tibial plateau. This is most likely a vascular channel -- given no extension seen to cortex at the tibial plateau and no step off is not present. Suggest immobilization and consider short interval radiographic (xray) follow up id there is persistent clinical concern. WSN: [id number] Ordering Physician: Gokul Wallace Dictated By: Felicitas Lacey MD Dictated Date/Time: 12/09/21 11:58 a Reviewed By: Felicitas Lacey MD Signed By: Felicitas Lacey MD Signed Date/Time: 12/09/21 11:58 am Transcribed By: RAVINDER Transcribed Date/Time: 12/09/21 11:42 am Note * [facility] , CIS S: TRANSCRIBE Felicitas Lacey MD: VERIFY Event Display: Result: Authored Date: Shoulder Min 2 Views Left, 3 views Hx of Present Illness: Pt states that he slipped and fell this morning. Pt c o left shoulder pain. Skin tear to the back of his right knee.; Reason: Trauma; with Pain; Clinical Question(s): Fracture COMPARISON: None. FINDINGS: No fracture or dislocation. No arthritic change of the glenohumeral joint. Normal AC joint and portions of the clavicle included on the exam. No calcification of the rotator cuff. IMPRESSION: Normal. WSN: [id number] Ordering Physician: Gokul Wallace Dictated By: Felicitas Lacey MD Dictated Date/Time: 12/09/21 12:01 p Reviewed By: Felicitas Lacey MD Signed By: Felicitas Lacey MD Signed Date/Time: 12/09/21 12:01 pm Transcribed By: RAVINDER Transcribed Date/Time: 12/09/21 12:00 pm Care Team Personnel Name: Soto RAMIREZ MD, James C Address: [address] [place] [address]
--- OUTSIDE RECORDS SUMMARY | 2022-10-14 11:52 | XMS_ITS | Continuity of Care Document ---
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 Name Role Phone Soto RAMIREZ MD, Bal Serrano Primary Care Physician ( [phone] Encounter [facility] Date(s): 01/23/21 - 02/22/21 [facility] [address] [place], [place] [address] Attending Physician: Admtr, [id number] Admitting Physician: Admtr, [...] 02/13/1911:48:23 EST, Aerosol, Route to Pharmacy Electronically, [id number], [facility]/pharmacy #1111 Start Date: 02/13/19 Status: Ordered amitriptyline 100 mg oral tablet 1 tablet = 100 mg, By Mouth, Daily at bedtime, # 7 tablet, 3 Refills, Maintenance, 04/15/20 10:15:00 EST, Tablet, [facility] #[id number], Partial fill upon patient request if the prescription isfor a schedule II opioid drug., 183, cm, 04/15/20 0... Start Date: 04/15/20 Stop Date: 05/13/20 Status: Ordered amitriptyline 25 mg oral tablet 75 mg, 3, tablet, By Mouth, Daily, # 21 tablet, Refills 3, Tot. Refills 3, Maintenance, 04/13/20 14:55:00 EST, Route to Pharmacy Electronically, [facility] #[id number], Partial fill upon patientrequest if the prescription is for a schedule II op... Start Date: 04/13/20 Stop Date: 05/11/20 Status: Ordered busPIRone 15 mg oral tablet 1 tablet = 15 mg, By Mouth, 3 times a day, # 42 tablet, 1 Refills, Maintenance, 04/13/20 14:56:00 EST, Tablet, [facility] #[id number], Partial fill upon patient request if the [...] 09/13/20 14:45:00 EDT, Route to Pharmacy Electronically, [facility] #[id number], Partial fill upon patient request if the [...] Maintenance, 10/22/2121:52:00 EDT, Route to Pharmacy Electronically, [facility] #[id number], Partial fill upon patient request if the prescription is for a schedule II... Start Date: 10/22/20 Status: Ordered fluticasone 50 mcg/inh nasal spray 2 sprays, Nares, Both, 2 times a day, # 9.9 mL, 0 Refills, Maintenance, 11/15/18 14:21:09 EDT, [place], 2 sprays Nares, Both 2 times a [...] 0 Refills, Maintenance, 01/07/21 18:42:00 EDT, Tablet, [facility] #[id number], Partial fill upon patient request if the [...] 05/28/21 9:00:00 EDT, 05/28/20 15:55:00 EDT, Patch, [facility] #[id number], Partial fill upon patient request if the [...] 04/13/20 14:57:00 EST, Route to Pharmacy Electronically, [facility] #[id number], Partial fill upon patient request if the [...] 0 Refills, Maintenance, 07/27/20 19:15:00 EDT, Tablet, [facility] #[id number], Partial fill upon patient request if the [...] Active Hypothyroidism(Confirmed) Active Obese class I(Confirmed) Active Social History Social History Type Response Tobacco Use: 1PPD. Sex Medical Equipment Implanted Date:09/13/20Target Site:Abdomen Description Quantity MRI Company Model MESH VENTRALIGHT ECHO ELLIPS 4 - BARD ([id number]) 1 Bard Unknown HAYDEE:{01}[id number] Assigning Author ity:FDA
--- OUTSIDE RECORDS SUMMARY | 2022-10-14 11:52 | XMS_ITS | Continuity of Care Document ---
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 Name Role Phone Soto RAMIREZ MD, Bal Serrano Primary Care Physician Encounter [facility] Date(s): 07/11/20 - 07/12/[address] [address]- Discharge Disposition: A-D/C Home Attending Physician: Lizett [...] 02/13/1911:48:23 EST, Aerosol, Route to Pharmacy Electronically, [id number], [facility]/pharmacy #[id number] Start Date: 02/13/19 Status: Ordered amitriptyline 100 mg oral tablet 1 tablet = 100 mg, By Mouth, Daily at bedtime, # 7 tablet, 3 Refills, Maintenance, 04/15/20 10:15:00 EST, Tablet, [facility] #[id number], Partial fill upon patient request if the prescription isfor a schedule II opioid drug., 183, cm, 04/15/20 0... Start Date: 04/15/20 Stop Date: 05/13/20 Status: Ordered amitriptyline 25 mg oral tablet 75 mg, 3, tablet, By Mouth, Daily, # 21 tablet, Refills 3, Tot. Refills 3, Maintenance, 04/13/20 14:55:00 EST, Route to Pharmacy Electronically, [facility] #[id number], Partial fill upon patientrequest if the prescription is for a schedule II op... Start Date: 04/13/20 Stop Date: 05/11/20 Status: Ordered baclofen 10 mg oral tablet 20 mg, 2, tablet, By Mouth, 2 times a day, # 56 tablet, Refills 1, Tot. Refills 1, Maintenance, 04/13/20 14:54:00 EST, Route to Pharmacy Electronically, [facility] #[id number], Partial fill uponpatient request if the prescription is for a schedu... Start Date: 04/13/20 Stop Date: 05/11/20 Status: Ordered busPIRone 15 mg oral tablet 1 tablet = 15 mg, By Mouth, 3 times a day, # 42 tablet, 1 Refills, Maintenance, 04/13/20 14:56:00 EST, Tablet, [facility] #[id number], Partial fill upon patient request if the prescription is for a schedule II opioid drug., 183, cm, 04/13/20 9:04... Start Date: 04/13/20 Stop Date: 05/11/20 Status: Ordered fluticasone 50 mcg/inh nasal spray 2 sprays, Nares, Both, 2 times a day, # 9.9 mL, 0 Refills, Maintenance, 11/15/18 14:21:09 EDT, [place], 2 sprays Nares, Both 2 times a [...] 05/28/21 9:00:00 EDT, 05/28/20 15:55:00 EDT, Patch, [facility] #[id number], Partial fill upon patient request if the prescription is for aschedule II opioid drug., 1 patch Topically Daily,... Start Date: 05/28/20 Stop Date: 05/28/21 Status: Ordered propranolol 40 mg oral tablet 40 mg, 1, tablet, By Mouth, 2 times a day, # 28 tablet, Refills 1, Tot. Refills 1, Maintenance, 04/13/20 14:56:00 EST, Route to Pharmacy Electronically, [facility] #[id number], Partial fill uponpatient request if the prescription [...] 04/13/20 14:57:00 EST, Route to Pharmacy Electronically, [facility] #[id number], Partial fill upon patient request if the [...] 1 Refills, Maintenance, 04/13/20 14:55:00 EST, Tablet, [facility] #[id number], Partial fill upon patient request if the [...] to oldest [Reference Range]: 1 2 Height 188 cm (07/12/20 12:30 AM) 188 cm (07/11/20 11:17 PM) Weight 138 kg (07/12/20 12:30 AM) 138 kg (07/11/20 11:17 PM) Oxygen Saturation [94-100 %] 100 % (07/12/20 12:30 AM) 97 % (07/11/20 11:17 PM) Pulse Rate [55-90 bpm] 80 bpm (07/12/20 12:30 AM) 88 bpm (07/11/20 11:17 PM) Body Mass Index [18.5-24.99] 39.04 *>HHI* (07/12/20 12:30 AM) Blood Pressure [90-138/55-84 mm Hg] 123/ 85mm Hg (07/12/20 12:30 AM) 109/74mm Hg (07/11/20 11:17 PM) Respiratory Rate [16-30 br/min] 18 br/mi n (07/12/20 12:30 AM) 18 br/min (07/11/20 11:17 PM) Temperature [96.8-100.4 DegF] 97.0 DegF (07/11/20 11:17 PM) Mode of Delivery (Oxygen) Room air (07/12/20 12:30 AM) Room air (07/11/20 11:17 PM) Blood pressure sites Arm, left (07/12/20 12:30 AM) Arm, right (07/11/20 11:17 PM) Temperature Route Temporal (07/11/20 11:17 PM) Dry Weight 138 kg (07/12/20 12:30 AM) 138 kg (07/11/20 11:17 PM) Social History Social History Type Response Tobacco Use: 1PPD. Sex
--- OUTSIDE RECORDS SUMMARY | 2022-10-14 11:52 | XMS_ITS | Continuity of Care Document ---
Author Name Unknown Organization [facility] Address [address] [place] [address]- Care Team Providers Care Traffic Investigator Name Role Phone Not on Staff, PCP Primary Care Physician Unavail able Encounter [facility] Date(s): 03/24/22 - 05/20/[address] [address]- Attending Physician: Tina HENDERSON, Trinity Tanner Admitting Physician: Tina HENDERSON, Trinity Tanner Referring Physician: Sharon WAITE, Darryl Banks Allergies, Adverse Reactions, Alerts Substance Reaction Severity Status Zoloft Active Thorazine Active traZODone Active ZyPREXA Active Immunizations Given and Recorded Vaccine Date Status Refusal Reason tetanus/diphtheria/pertussis, acel(Tdap) 04/09/22 Recorded tetanus/diphtheria/pertussis, acel(Tdap) 05/18/18 Recorded tetanus/diphtheria/pertussis, acel(Tdap) 12/19/16 Recorded [id number] 12y+ bivalent booster vax 02/11/22 Recorded SARS-CoV-2 [...] 1 Refills, Maintenance, 05/08/22 12:50:00 EST, Tablet, [email or web address] #[id number], Partial fill upon patient request if the prescription is for a schedule II opioid drug., yolanda Go, 05/08/22 7:19:00 EST,... Start Date: 05/08/22 Stop Date: 06/05/22 Status: Ordered benztropine 1 mg oral tablet 1 mg, 1, tablet, By Mouth, Daily, # 14 tablet, Refills 1, Tot. Refills 1, Maintenance, 05/08/22 12:50:00 EST, Route to Pharmacy Electronically, [facility] #[id number], Partial fill upon patient request if the prescription is for a schedule II opi... Start Date: 05/08/22 Stop Date: 06/05/22 Status: Ordered busPIRone 30 mg oral tablet 1 tablet = 30 mg, By Mouth, 2 times a day, # 28 tablet, 0 Refills, Maintenance, 05/08/22 12:59:00 EST, Tablet, [email or web address] #[id number], Partial fill upon patient request if the prescription is for a schedule II opioid drug., yolanda Go, 05/08/22 7:19... Start Date: 05/08/22 Stop Date: 05/22/22 Status: Ordered chlorproMAZINE 100 mg oral tablet = 100 mg, By Mouth, Daily at bedtime, # 14 tablet, 0 Refills, Maintenance, 05/08/22 12:52:00 EST, Tablet, [facility] #[id number], Partial fill upon patient request if the prescription is for a schedule II opioid drug., yolanda Go, 05/08/22 7:19:00 E... Start Date: 05/08/22 Stop Date: 05/22/22 Status: Ordered chlorproMAZINE 50 mg oral tablet = 50 mg, By Mouth, Daily before lunch, # 14 tablet, 0 Refills, Maintenance, 05/08/22 12:51:00 EST, Tablet, [email or web address] #[id number], Partial fill upon patient request if the prescription is for a schedule II opioid drug., yolanda Go, 05/08/22 7:19:00... Start Date: 05/08/22 Stop Date: 05/22/22 Status: Ordered chlorproMAZINE 50 mg oral tablet 1 tablet = 50 mg, By Mouth, Daily in AM, # 180 tablet, 0 Refills, Maintenance, 05/08/22 12:53:00 EST, Tablet, [facility] #[id number], Partial fill upon patient request if the prescription is fora schedule II opioid drug., 176, cm, 05/08/22 7:19:... Start Date: 05/08/22 Status: Ordered cloNIDine 0.2 mg oral tablet 0.2 mg, 1, tablet, By Mouth, 2 times a day, # 20 tablet, Refills 2, Tot. Refills 2, Maintenance, 01/01/22 15:56:00 EDT, Route to Pharmacy Electronically, [facility] #[id number], Partial fill upon patient request if the prescription is for a sched... Start Date: 01/01/22 Stop Date: 01/31/22 Status: Ordered divalproex sodium 500 mg oral enteric coated tablet 1 tablet = 500 mg, By Mouth, Daily in AM, # 14 tablet, 0 Refills, Maintenance, 05/08/22 12:49:00 EST, Tablet, [facility] #[id number], Partial fill upon patient request if the prescription is fora schedule II opioid drug., 176, cm, 05/08/22 7:19:... Start Date: 05/08/22 Stop Date: 05/22/22 Status: Ordered divalproex sodium 500 mg oral enteric coated tablet 2 tablets, By Mouth, Daily at bedtime, # 28 tablet, 0 Refills, Maintenance, 05/08/22 12:49:00 EST, Tablet, [facility] #[id number], Partial fill upon patient request if the prescription is for a schedule II opioid drug., 176, cm, 05/08/22 7:19:00... Start Date: 05/08/22 Stop Date: 05/22/22 Status: Ordered docusate sodium 100 mg oral capsule 100 mg, 1, capsule, By Mouth, 2 times a day, # 60 capsule, Refills 0, Tot. Refills 0, Maintenance, 06/20/21 23:57:00 EDT, Route to Pharmacy Electronically, [facility] #[id number], Partial fill upon patient request if the [...] AM, 0 Refills, Maintenance, 03/10/22 8:17:00 EST, [place], Partial fill upon patient request if the [...] 1 Refills, Maintenance, 01/02/22 9:22:00 EDT, Tablet, [email or web address] #[id number], Partial fill upon patient request if the [...] Code MRI Safety Implantable Status 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 [id number] Unknown [id number] Unknown 03/11/21 Unknown Unknown Active GS1 Patient Care team information Care Team Personnel Name: Konrad Gallegos RN Position: [facility] ED RN W/OE and Tasks Member Role: Primary Care Nurse Name: Niki Bright RN Position: [facility] RN Member Role: Primary Care Nurse Name: Fang Che Position: [facility] RN Member Role: Primary Care Nurse Name: Trisha Alamo RN Position: [facility] RN Supv Member Role: Primary Care Nurse Name: Rita Son NP Position: [facility] Associate Professional Member Role: Primary Care Nurse Address: Address: [address] [place] [address]- Name: Sol Chanel RN Position: [facility] RN Member Role: Primary Care Nurse Name: Trisha Beltrán RN Position: [facility] RN Supv Member Role: Primary Care Nurse Name: Helene Pérez RN Position: [facility] RN Member Role: Primary Care Nurse Name: Brenda Cuba RN Position: [facility] Wound Member Role: Primary Care Nurse Name: Kell Alonso RN Position: [facility] RN Member Role: Primary Care Nurse Name: Faraz Barriga RN Position: [facility] RN Member Role: Primary Care Nurse Name: Richa Clay LPN Position: [facility] RN Member Role: Primary Care Nurse Name: Екатерина Chacko RN Position: [facility] RN Member Role: Primary Care Nurse Name: Anna Lackey RN Position: [facility] RN Member Role: Primary Care Nurse Name: Elizabeth Ha RN Position: [facility] RN Member Role: Primary Care Nurse Name: Not on Staff, PCP Position: [facility] Physician (General Medicine) Member Role: PCP Name: Anna Oconnor RN Position: [facility] Practice Managers Member Role: Primary Care Nurse Name: Kip Gonzalez RN Position: [facility] RN Member Role: Primary Care Nurse Address: Address: [address] [place] [address]- Name: Anisha Hinds RN Position: [facility] RN Member Role: Primary Care Nurse Name: Kari Grijalva RN Position: [facility] RN Member Role: Primary Care Nurse Name: Sunitha Gutierrez RN Position: [facility] RN Member Role: Primary Care Nurse Name: April Acuña RN Position: [facility] RN Member Role: Primary Care Nurse Name: Li Esquivel RN Position: [facility] Hospital Practice Managers Member Role: Primary Care Nurse Name: Tunde White MD Position: [facility] Psychiatry MD Member Role: Lifetime Consulting Physician Address: Address: [address] [place] [address]- Care Team Related Persons Name: FORREST TO Address: home [address] [place] [id number] Name: MÓNICA CREWS
--- OUTSIDE RECORDS SUMMARY | 2022-10-14 11:52 | XMS_ITS | Continuity of Care Document ---
Author Name Unknown Organization [facility] April Ramos Surger y Address [address] [facility] [address] [place] [address]- Care Team Providers Care Shop Laborer Name Role Phone Elijah Gibbons MD Primary Care Physician [phone] Encounter [facility] Date(s): 03/22/19 - 03/29/19 [facility] April Ramos Surgery [address] [facility] [address] [place] [address]- [facility] Attending Physician: Cassandra Call DO Allergies, Adverse Reactions, Alerts Substance Reaction Severity Status Zoloft Active Thorazine Active traZODone Active ZyPREXA Active PROzac Active SEROquel Active Medications albuterol CFC free 90 mcg/inh inhalation aerosol 2, puffs, Inhalation, Every 4 hours, PRN, # 18 Gm, Refills 3, Tot. Refills 3, Maintenance, 02/13/1911:48:23 EST, Aerosol, Route to Pharmacy Electronically, [id number], [facility]/pharmacy #[id number] Start Date: 02/13/19 [...] Refills, Maintenance, 02/28/19 12:11:45 EST, EC Tablet, [facility]/pharmacy #[id number], 183, cm, 02/28/19 11:39:08 [...] Maintenance, 198:58:23 EST, Route to Pharmacy Electronically, [id number], [facility]/pharmacy #[id number], 183, cm, 02/17/19 8:22:07 EST, Height, 127, kg... Start Date: 02/17/19 Status: Ordered fluticasone 50 mcg/inh nasal spray 2 sprays, Nares, Both, 2 times a day, # 9.9 mL, 0 Refills, Maintenance, 11/15/18 14:21:09 EDT, [place], 2 sprays Nares, Both 2 times a day Start Date: 11/15/18 Status: Ordered gabapentin 100 mg oral capsule 100 mg, 1, capsule, By Mouth, Daily at bedtime, # 30 capsule, Refills 0, Tot. Refills 0, Maintenance, 02/28/19 12:13:04 EST, Route to Pharmacy Electronically, [facility]/pharmacy #[id number], 183, cm, 02/28/19 11:39:08 [...] oldest [Reference Range]: 1 Height 183 cm (03/22/19 4:25 PM) Weight 124.6 kg (03/22/19 4:25 PM) Oxygen Saturation [94-100 %] 97 % (03/22/19 4:25 PM) Pulse Rate [55-90 bpm] 85 bpm (03/22/19 4:25 PM) Body Mass Index [18.5-24.99] 37.21 *>HHI* (03/22/19 4:25 PM) Social History Social History Type Response Smoking Status 5-9 cigarettes (betw een 1/4 to 1/2 pack)/day in last 30 days; Tobacco user in household: No entered on: 02/28/19 Sex
--- OUTSIDE RECORDS SUMMARY | 2022-10-14 11:52 | XMS_ITS | Continuity of Care Document ---
Author Name Unknown Organization [facility] Address [address] [place] [address]- Care Team Providers Care Audio Technician Name Role Phone Soto RAMIREZ MD, Bal Serrano Primary Care Physician Encounter [facility] Date(s): 09/20/21 - 09/20/[address] [address]- Discharge Disposition: A-D/C Home Attending Physician: Michael [...] tablet 2 tablet, Tablet, By Mouth, Once, STAT, 09/20/21 4:15:00 EDT, Stop date 09/20/21 4:15:00 EDT Start Date: 09/20/21 Stop Date: 09/20/21 Status: Completed Advair Diskus 250 mcg-50 mcg inhalation powder Inhalation, 2 times a day, Refills 0, Maintenance, 05/21/20 9:46:00 EST Start Date: 05/21/20 Status: Ordered Advair Diskus 500 mcg-50 mcg inhalation powder 1, puffs, Inhalation, 2 times a day, # 1 each, Refills 0, Tot. Refills 0, Maintenance, 06/20/21 23:55:00 EDT, Inhaler, Route to Pharmacy Electronically, [id number], [facility] #[id number], 182, cm, 06/20/21 23:10:00 EDT,... Start Date: 06/20/21 Status: Ordered amitriptyline 150 mg oral tablet 1 tablet = 150 mg, By Mouth, Daily at bedtime, # 5 tablet, 4 Refills, Maintenance, 07/11/21 11:18:00 EDT, Tablet, [facility] #[id number], Partial fill upon patient request if the prescription isfor a schedule II opioid drug., 182, cm, 06/20/21 2... Start Date: 07/11/21 Stop Date: 08/05/21 Status: Ordered ARIPiprazole 15 mg oral tablet 15 mg, 1, tablet, By Mouth, Daily, # 7 tablet, Refills 3, Tot. Refills 3, Maintenance, 07/14/21 11:18:00 EDT, Route to Pharmacy Electronically, [facility] #[id number], Partial fill upon patient request if the [...] 3 Refills, Maintenance, 07/14/21 11:19:00 EDT, Tablet, [facility] #[id number], Partial fill upon patient request if the [...] 06/20/21 23:55:00 EDT, Route to Pharmacy Electronically, [facility] #[id number], Partial fill upon patient request if the [...] 3 Refills, Maintenance, 07/14/21 11:19:00 EDT, Tablet, [facility] #[id number], Partial fill upon patient request if the prescription is for a schedule II opioid drug., 182, cm, 06/20/21 23:10:00 EDT... Start Date: 07/14/21 Stop Date: 08/11/21 Status: Ordered docusate sodium 100 mg oral capsule 100 mg, 1, capsule, By Mouth, 2 times a day, # 60 capsule, Refills 0, Tot. Refills 0, Maintenance, 06/20/21 23:57:00 EDT, Route to Pharmacy Electronically, [facility] #[id number], Partial fill upon patient request if the prescription is for a salima... Start Date: 06/20/21 Status: Ordered Flomax 0.4 mg oral capsule 0.4 mg, 1, capsule, By Mouth, Daily, # 30 capsule, Refills 0, Tot. Refills 0, Maintenance, 06/20/2222:57:00 EDT, Route to Pharmacy Electronically, [facility] #[id number], Partial fill upon patient request if the prescription is for a schedule II... Start Date: 06/20/21 Status: Ordered fluticasone 50 mcg/inh nasal spray 2 sprays, Nares, Both, 2 times a day, # 9.9 mL, 0 Refills, Maintenance, 11/15/18 14:21:09 EDT, [place], 2 sprays Nares, Both 2 times a [...] 09/08/21 5:22:00 EDT, Route to Pharmacy Electronically, [facility] #[id number], Partial fill upon patient request if the [...] Range]: 1 2 3 Height 183 cm (09/20/21 4:50 AM) 183 cm (09/20/21 3:03 AM) 183 cm (09/20/21 2:57 AM) Weight 134 kg (09/20/21 4:50 AM) 134 kg (09/20/21 2:57 AM) Oxygen Saturation [94-100 %] 98 % (09/20/21 3:03 AM) 94 % (09/20/21 2:57 AM) Pulse Rate [55-90 bpm] 96 bpm *H* (09/20/21 3:03 AM) 98 bpm *H* (09/20/21 2:57 AM) Blood Pressure [90-138/55-84 mm Hg] 134/76mm Hg (09/20/21 3:03 AM) 127/89mm Hg (09/20/21 2:57 AM) Respiratory Rate [16-30 br/min] 18 br/min (09/20/21 4:28 AM) 19 br/min (09/20/21 3:03 AM) 20 br/min (09/20/21 2:57 AM) Temperature [96.8-100.4 DegF] 98.7 DegF (09/20/21 3:03 AM) 97.9 DegF (09/20/21 2:57 AM) Mode of Delivery (Oxygen) Room air (09/20/21 3:03 AM) Room air (09/20/21 2:57 AM) Blood pressure sites Arm, right (09/20/21 3:03 AM) Arm, left (09/20/21 2:57 AM) Temperature Route Oral (09/20/21 3:03 AM) Oral (09/20/21 2:57 AM) Dry Weight 134 kg (09/20/21 4:50 AM) 134 kg (09/20/21 2:57 AM) Weight Obtained Via Patient/family state d (09/20/21 2:57 AM) Dry Weight Obtained Via Patient/family s tated (09/20/21 2:57 AM) Social History Social History Type Response Smoking Status 10 or more cigarette s (1/2 pack or more)/day in last 30 days entered on: 06/10/21 Sex Medical Equipment Implanted Date:09/13/20Target Site:Abdomen Description Quantity MRI Company Model MESH VENTRALIGHT ECHO ELLIPS 4 - BARD ([id number]) 1 Bard Unknown HAYDEE:{01}[id number] Assigning Author ity:FDA
--- OUTSIDE RECORDS SUMMARY | 2022-10-14 11:52 | XMS_ITS | Continuity of Care Document ---
Author Name Unknown Organization [facility] Address [address] [place] [address]- Care Team Providers Care Emergency Veterinarian Name Role Phone Not on Staff, PCP Primary Care Physician Unavail able Encounter [facility] Date(s): 05/20/22 - 05/20/[address] [address]- Discharge Disposition: A-D/C Home Attending Physician: Mansoor Swann MD Admitting Physician: Mansoor Swann MD Referring Physician: Not on Staff, Referring MD Allergies, Adverse Reactions, Alerts Substance Reaction Severity Status Zoloft Active Thorazine Active traZODone Active ZyPREXA Active Immunizations Given and Recorded Vaccine Date Status Refusal Reason tetanus/diphtheria/pertussis, acel(Tdap) 04/09/22 Recorded tetanus/diphtheria/pertussis, acel(Tdap) 05/18/18 Recorded tetanus/diphtheria/pertussis, acel(Tdap) 12/19/16 Recorded [id number] 12y+ bivalent booster vax 02/11/22 Recorded SARS-CoV-2 [...] 1 Refills, Maintenance, 05/08/22 12:50:00 EST, Tablet, [facility] #[id number], Partial fill upon patient request if the prescription is for a schedule II opioid drug., yolanda Go, 05/08/22 7:19:00 EST,... Start Date: 05/08/22 Stop Date: 06/05/22 Status: Ordered benztropine 1 mg oral tablet 1 mg, 1, tablet, By Mouth, Daily, # 14 tablet, Refills 1, Tot. Refills 1, Maintenance, 05/08/22 12:50:00 EST, Route to Pharmacy Electronically, [facility] #[id number], Partial fill upon patient request if the prescription is for a schedule II opi... Start Date: 05/08/22 Stop Date: 06/05/22 Status: Ordered busPIRone 30 mg oral tablet 1 tablet = 30 mg, By Mouth, 2 times a day, # 28 tablet, 0 Refills, Maintenance, 05/08/22 12:59:00 EST, Tablet, [facility] #[id number], Partial fill upon patient request if the prescription is for a schedule II opioid drug., yolnada Go, 05/08/22 7:19... Start Date: 05/08/22 Stop Date: 05/22/22 Status: Ordered chlorproMAZINE 100 mg oral tablet = 100 mg, By Mouth, Daily at bedtime, # 14 tablet, 0 Refills, Maintenance, 05/08/22 12:52:00 EST, Tablet, [facility] #[id number], Partial fill upon patient request if the prescription is for a schedule II opioid drug., yolanda Go, 05/08/22 7:19:00 E... Start Date: 05/08/22 Stop Date: 05/22/22 Status: Ordered chlorproMAZINE 50 mg oral tablet = 50 mg, By Mouth, Daily before lunch, # 14 tablet, 0 Refills, Maintenance, 05/08/22 12:51:00 EST, Tablet, [facility] #[id number], Partial fill upon patient request if the prescription is for a schedule II opioid drug., yolanda Go, 05/08/22 7:19:00... Start Date: 05/08/22 Stop Date: 05/22/22 Status: Ordered chlorproMAZINE 50 mg oral tablet 1 tablet = 50 mg, By Mouth, Daily in AM, # 180 tablet, 0 Refills, Maintenance, 05/08/22 12:53:00 EST, Tablet, [facility] #[id number], Partial fill upon patient request if the prescription is fora schedule II opioid drug., 176, cm, 05/08/22 7:19:... Start Date: 05/08/22 Status: Ordered cloNIDine 0.2 mg oral tablet 0.2 mg, 1, tablet, By Mouth, 2 times a day, # 20 tablet, Refills 2, Tot. Refills 2, Maintenance, 01/01/22 15:56:00 EDT, Route to Pharmacy Electronically, [facility] #[id number], Partial fill upon patient request if the prescription is for a sched... Start Date: 01/01/22 Stop Date: 01/31/22 Status: Ordered divalproex sodium 500 mg oral enteric coated tablet 1 tablet = 500 mg, By Mouth, Daily in AM, # 14 tablet, 0 Refills, Maintenance, 05/08/22 12:49:00 EST, Tablet, [facility] #[id number], Partial fill upon patient request if the prescription is fora schedule II opioid drug., 176, cm, 05/08/22 7:19:... Start Date: 05/08/22 Stop Date: 05/22/22 Status: Ordered divalproex sodium 500 mg oral enteric coated tablet 2 tablets, By Mouth, Daily at bedtime, # 28 tablet, 0 Refills, Maintenance, 05/08/22 12:49:00 EST, Tablet, [facility] #[id number], Partial fill upon patient request if the prescription is for a schedule II opioid drug., 176, cm, 05/08/22 7:19:00... Start Date: 05/08/22 Stop Date: 05/22/22 Status: Ordered docusate sodium 100 mg oral capsule 100 mg, 1, capsule, By Mouth, 2 times a day, # 60 capsule, Refills 0, Tot. Refills 0, Maintenance, 06/20/21 23:57:00 EDT, Route to Pharmacy Electronically, [facility] #[id number], Partial fill upon patient request if the [...] AM, 0 Refills, Maintenance, 03/10/22 8:17:00 EST, [place], Partial fill upon patient request if the [...] 1 Refills, Maintenance, 01/02/22 9:22:00 EDT, Tablet, [facility] #[id number], Partial fill upon patient request if the [...] [Reference Range]: 1 2 Height 183 cm (05/20/22 4:01 AM) Weight 118 kg (05/20/22 4:01 AM) Oxygen Saturation [94-100 %] 98 % (05/20/22 6:32 AM) 99 % (05/20/22 4:01 AM) Pulse Rate [55-90 bpm] 77 bpm (05/20/22 6:32 AM) 104 bpm *H* (05/20/22 4:01 AM) Blood Pressure [90-138/55-84 mm Hg] 102/ 62mm Hg (05/20/22 6:32 AM) 127/81mm Hg (05/20/22 4:01 AM) Respiratory Rate [16-30 br/min] 14 br/mi n *L* (05/20/22 6:32 AM) 18 br/min (05/20/22 4:01 AM) Temperature [96.8-100.4 DegF] 96.5 DegF *L* (05/20/22 4:01 AM) Mode of Delivery (Oxygen) Room air (05/20/22 6:32 AM) Room air (05/20/22 4:01 AM) Temperature Route Temporal (05/20/22 4:01 AM) Dry Weight 118 kg (05/20/22 4:01 AM) Weight Obtained Via Patient/family state d (05/20/22 4:01 AM) Dry Weight Obtained Via Patient/family s tated (05/20/22 4:01 AM) Social History Social History Type Response [...] Code MRI Safety Implantable Status 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 [id number] Unknown [id number] Unknown 03/11/21 Unknown Unknown Active GS1 Note * Mansoor Swann MD: PERFORM, SIGN, VERIFY Event Display: Patient Education Handout Authored Date: [id number] * Mansoor Swann MD: PERFORM Event Display: Patient Education Leaflets Authored Date: [id number] Opiate Abuse ?? [id number] Opiate Abuse Use and abuse of heroin or prescription pain medicines such as oxycodone, codeine, hydrocodone, morphine, methadone, and fentanyl may lead to addiction or dependence. Once this occurs, you are at greater risk for any of these: ??? Craving for the drug and unable to stop using the drug even though you think you want to stop (psychological addiction) ??? Drug withdrawal symptoms if you stop taking the drug (physical dependence) ??? Loss of your job or your family ??? Arrest, conviction, and mcc sentence for possession of an illegal substance or for driving under the influence of such a substance ??? Accidental injuries t o yourself or others while you are under the influence of the drug in a car or at home ??? orserious injury from overdose Health problems The list of potential health problems is a long one. It can be different with different medicines. They can cause problems even if you have no history of medical problems. It is also affected by other medicines you may be taking, and chronic illnesses you may have. Besides the problems listed above,??abuse also has other effects, some directly related to the drugs, others from or related to addiction or dependency. ??? Anxiety ??? Seizures ??? Constipation ??? Hepatitis (liver infection) ??? Liver failure ??? Blood pressure problems ??? Depression ??? Insomnia ??? Nausea, vomiting, and stomach problems ??? Drowsiness ??? Slurred speech ??? Trouble breathing ??? Dizziness ??? Skin infections??? Muscle pain and spasms ??? Stroke ??? Heart attack ??? Kidney failure ??? HIV infection ??? Skin infections ??? Other sexually transmitted diseases ??? Severe and fatal infection of the heart valves ??? Coma and ?? Home care ??? Admit you have a drug problem. Ask for help from your family and close friends. ??? Seek professional help. This could be individual psychotherapy, counseling, or a drug treatment program (outpatient or residential). ??? Join a self-help group for drug abuse. ??? Avoid friends who abuse drugs themselves or tempt you to continue your habit. ??? Eat a balanced diet and begin a regularexercise program. ?? Follow-up care Follow up with your healthcare provider, or??as advised. Contact one of the resources below for help: ??? National [place] on Alcoholism and Drug Dependence, www.ncadd.org 040-575-JGUD ??? Narcotics Anonymous. Check your phone book for a local listing, call 014-047-3413, or visit www.na.org. ??? [place] [facility] and Substance [facility] Information [facility] for referral to treatment programs ??? www.[employer] 638-674-6733 ?? Call 911 Call 911 if any of these occur:? Seizure ??? Trouble breathing or slow, irregular breathing ??? Chest pain ??? Sudden weakness on one side of your body or sudden trouble speaking ??? Very drowsyor trouble awakening ??? Fainting or loss of consciousness ??? Rapid heart rate ??? Very slow heartrate ?? When to seek medical advice Call your healthcare provider right away if any of these occur: ??? Symptoms of withdrawal. These include agitation, anxiety, trembling, sweats, diarrhea, unable to sleep. ??? Fever of 100.4??F (38.0??C) or higher, or as directed by your healthcare provider ??? Excessive drowsiness or inability to be awakened ??? Redness, swelling, or tenderness at an injection site ?? Last Reviewed Date: 2017 ?? [id number] [employer]. All rights reserved. This information is not intended as a substitute for professional medical care. Always follow your healthcare professional's instructions. ?? Patient Care team information Care Team Personnel Name: Konrad Gallegos RN Position: [facility] ED RN W/OE and Tasks Member Role: Primary Care Nurse Name: Niki Bright RN Position: [facility] RN Member Role: Primary Care Nurse Name: Fang Che Position: [facility] RN Member Role: Primary Care Nurse Name: Trisha Alamo RN Position: [facility] RN Supv Member Role: Primary Care Nurse Name: Rita Son NP Position: [facility] Associate Professional Member Role: Primary Care Nurse Address: Address: [address] [place] [id number]- Name: Sol Chanel RN Position: [facility] RN Member Role: Primary Care Nurse Name: Trisha Beltrán RN Position: [facility] RN Supv Member Role: Primary Care Nurse Name: Helene Pérez RN Position: [facility] RN Member Role: Primary Care Nurse Name: Brenda Cuba RN Position: [facility] HBO Wound Member Role: Primary Care Nurse Name: Kell Alonso RN Position: [facility] RN Member Role: Primary Care Nurse Name: Faraz Barriga RN Position: [facility] RN Member Role: Primary Care Nurse Name: Richa Clay LPN Position: [facility] RN Member Role: Primary Care Nurse Name: Екатерина Chacko RN Position: [facility] RN Member Role: Primary Care Nurse Name: Anna Lackey RN Position: [facility] RN Member Role: Primary Care Nurse Name: Elizabeth Ha RN Position: [facility] RN Member Role: Primary Care Nurse Name: Not on Staff, PCP Position: [facility] Physician (General Medicine) Member Role: PCP Name: Anna Oconnor RN Position: [facility] Rn Ante Partum Member Role: Primary Care Nurse Name: Kip Gonzalez RN Position: [facility] RN Member Role: Primary Care Nurse Address: Address: [address] [place] [id number]- Name: Anisha Hinds RN Position: [facility] RN Member Role: Primary Care Nurse Name: Kari Grijalva RN Position: [facility] RN Member Role: Primary Care Nurse Name: Sunitha Gutierrez RN Position: [facility] RN Member Role: Primary Care Nurse Name: April Acuña RN Position: [facility] RN Member Role: Primary Care Nurse Name: Li Esquivel RN Position: [facility] Rn Ante Partum Member Role: Primary Care Nurse Name: Tunde White MD Position: [facility] Psychiatry MD Member Role: [employer] Physician Address: Address: [address] [place] [phone]- [place] Name: Marifer Murrieta Position: [facility] ED OA Name: Wero Ortiz RN Position: [facility] ED RN W/OE and Tasks Member Role: Patient Care Provider Name: Payal Alarcon RN Position: [facility] ED RN W/OE and Tasks Member Role: Patient Care Provider Name: Mansoor Swann MD Position: [facility] ED Medicine MD Member Role: Admitting Physician Address: Address: [address] [place] [address]- [place] Care Team Related Persons Name: FORREST TO Address: [address] [place] [address] Name: MÓNICA CREWS
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
--- OUTSIDE RECORDS SUMMARY | 2022-10-14 11:52 | XMS_ITS | Continuity of Care Document ---
Author Name Unknown Organization [facility] Address [address] [place] [address]- Care Team Providers Care Transplant Registered Nurse Name Role Phone Soto RAMIREZ MD, Bal Serrano Primary Care Physician Encounter [facility] Date(s): 03/04/21 - 03/06/[address] [address] Discharge Disposition: A-D/C AMA Attending Physician: Ambrose Wan MD Admitting Physician: Jacquelin Ryan MD Referring Physician: Jacquelin Ryan MD Allergies, Adverse Reactions, Alerts Substance Reaction [...] 02/13/1911:48:23 EST, Aerosol, Route to Pharmacy Electronically, [id number], [facility]/pharmacy #[id number] Start Date: 02/13/19 Status: Ordered amitriptyline 100 mg oral tablet 1 tablet = 100 mg, By Mouth, Daily at bedtime, # 7 tablet, 3 Refills, Maintenance, 04/15/20 10:15:00 EST, Tablet, [email or web address] #[id number], Partial fill upon patient request if the [...] 03/04/21 Stop Date: 03/11/21 Status: Ordered busPIRone 15 mg oral tablet 1 tablet = 15 mg, By Mouth, 2 times a day, for 7 days, Physician Stop 03/11/21 13:44:00 EST Start Date: 03/04/21 Stop Date: 03/11/21 Status: [...] 09/13/20 14:45:00 EDT, Route to Pharmacy Electronically, [facility] #[id number], Partial fill upon patient request if the [...] Maintenance, 10/22/2121:52:00 EDT, Route to Pharmacy Electronically, [facility] #[id number], Partial fill upon patient request if the prescription is for a schedule II... Start Date: 10/22/20 Status: Ordered fluticasone 50 mcg/inh nasal spray 2 sprays, Nares, Both, 2 times a day, # 9.9 mL, 0 Refills, Maintenance, 11/15/18 14:21:09 EDT, [place], 2 sprays Nares, Both 2 times a day Start Date: 11/15/18 Status: Ordered furosemide 40 mg oral tablet 40 mg, 1, tablet, By Mouth, Daily, Maintenance, 03/04/21 13:40:00 EST, Partial fill upon patient request if the prescription is for a schedule II opioid drug. Start Date: 03/04/21 Status: Ordered gabapentin 300 mg oral capsule 600 mg, Capsule, By Mouth, 03/06/21 15:00:00 EST Start Date: 03/06/21 Stop Date: 03/06/21 Status: Completed gabapentin 800 mg oral tablet 1 tablet = 800 mg, By Mouth, 3 times a day, # 90 tablet, 0 Refills, Maintenance, 01/07/21 18:42:00 EDT, Tablet, [email or web address] #[id number], Partial fill upon patient request if the [...] Minipress 1 mg oral capsule 1 mg, Capsule, By Mouth, 03/06/21 15:00:00 EST Start Date: 03/06/21 Stop Date: 03/06/21 Status: Completed Minipress 1 mg oral capsule 1 mg, [...] 05/28/21 9:00:00 EDT, 05/28/20 15:55:00 EDT, Patch, [facility] #[id number], Partial fill upon patient request if the prescription is for aschedule II opioid drug., 1 patch Topically Daily,... Start Date: 05/28/20 Stop Date: 05/28/21 Status: Ordered propranolol 60 mg oral tablet [...] 04/13/20 14:57:00 EST, Route to Pharmacy Electronically, [facility] #[id number], Partial fill upon patient request if the [...] 0 Refills, Maintenance, 07/27/20 19:15:00 EDT, Tablet, [email or web address] #[id number], Partial fill upon patient request if the [...] Active Hypothyroidism(Confirmed) Active Severe obesity(Confirmed) Active Results Orders for Microbiology Reports Name Date Lower Resp Tract Culture w/ Gram Smear 1 05/05/20 Microbiology Reports TEST:Lower Respiratory Tract Culture STATUS:Unauthenticated BODY SITE: SOURCE:BRONCH COLLECTED DATE/TIME:03/04/21 12:55 PM Lower Respiratory Tract Culture SPECIMEN DESCRIPTION : BRONCH WASH, RIGHT LUNG RT LOWER LOBE SPECIAL REQUESTS : NONE GRAM STAIN : 3+ POLYMORPHONUCLEAR LEUKOCYTES 1+ GRAM POSITIVE COCCI CULTURE : 30,000 CFU/ML STREPTOCOCCUS PNEUMONIAE. <10,000 CFU/ML STAPHYLOCOCCUS SPECIES REPORT STATUS : PRELIMINARY REPORT Vital Signs Most recent to oldest [Reference Range]: 1 2 3 Height 182 cm (03/06/21 3:59 PM) 182 cm (03/06/21 10:39 AM) 182 cm (03/06/21 8:44 AM) Weight 142.6 kg (03/06/21 7:35 AM) 142.6 kg (03/05/21 5:33 AM) 142.9 kg (03/04/21 10:19 AM) Oxygen Saturation [94-100 %] 100 % (03/06/21 3:59 PM) 100 % (03/06/21 10:39 AM) 100 % (03/06/21 8:44 AM) Pulse Rate [55-90 bpm] 106 bpm *H* (03/06/21 4:09 PM) 106 bpm *H* (03/06/21 3:59 PM) 106 bpm *H* (03/06/21 1:58 PM) Body Mass Index [18.5-24.99] 43.14 *>HHI* (03/04/21 10:19 AM) Blood Pressure [90-138/55-84 mm Hg] 151/91mm Hg *H* (03/06/21 5:28 PM) 151/91mm Hg *H* (03/06/21 4:09 PM) 151/91mm Hg *H* (03/06/21 3:59 PM) Respiratory Rate [16-30 br/min] 18 br/min (03/06/21 5:28 PM) 16 br/min (03/06/21 4:09 PM) 18 br/min (03/06/21 3:59 PM) Temperature [96.8-100.4 DegF] 99.5 DegF (03/06/21 4:09 PM) 99.5 DegF (03/06/21 3:59 PM) 97.4 DegF (03/06/21 1:58 PM) Liters per Minute 3 L/min (03/06/21 10:00 AM) 3 L/min (03/06/21 5:45 AM) 2 L/min (03/05/21 7:39 PM) Mode of Delivery (Oxygen) Room air (03/06/21 3:59 PM) Nasal cannula (03/06/21 10:00 AM) Room air (03/06/21 8:44 AM) Blood pressure sites Arm, right (03/06/21 3:59 PM) Arm, right (03/06/21 10:39 AM) Arm, right (03/06/21 8:44 AM) Temperature Route Oral (03/06/21 4:09 PM) Oral (03/06/21 3:59 PM) Oral (03/06/21 1:58 PM) Dry Weight 142.9 kg (03/05/21 10:09 AM) 110 kg (03/04/21 7:42 PM) 110 kg (03/04/21 7:42 PM) Weight Obtained Via Bed scale (03/05/21 5:33 AM) Bed scale (03/04/21 10:19 AM) Social History Social History Type Response Tobacco Use: 1PPD. Sex Medical Equipment Implanted Date:09/13/20Target Site:Abdomen Description Quantity MRI Company Model MESH VENTRALIGHT ECHO ELLIPS 4 - BARD ([id number]) 1 Bard Unknown HAYDEE:{01}[id number] Assigning Author ity:FDA
--- OUTSIDE RECORDS SUMMARY | 2022-10-14 11:52 | XMS_ITS | Continuity of Care Document ---
Author Name Unknown Organization [facility] Address [address] [place] [address]- Care Team Providers Care Manager Of Training Name Role Phone Soto RAMIREZ MD, Bal Serrano Primary Care Physician Encounter [facility] Date(s): 02/21/21 - 02/22/[address] [address]- Discharge Disposition: A-D/C Home Attending Physician: Triston [...] 02/13/1911:48:23 EST, Aerosol, Route to Pharmacy Electronically, [id number], [facility]/pharmacy #[id number] Start Date: 02/13/19 Status: Ordered amitriptyline 100 mg oral tablet 1 tablet = 100 mg, By Mouth, Daily at bedtime, # 7 tablet, 3 Refills, Maintenance, 04/15/20 10:15:00 EST, Tablet, [facility] #[id number], Partial fill upon patient request if the prescription isfor a schedule II opioid drug., 183, cm, 04/15/20 0... Start Date: 04/15/20 Stop Date: 05/13/20 Status: Ordered amitriptyline 25 mg oral tablet 75 mg, 3, tablet, By Mouth, Daily, # 21 tablet, Refills 3, Tot. Refills 3, Maintenance, 04/13/20 14:55:00 EST, Route to Pharmacy Electronically, [facility] #[id number], Partial fill upon patientrequest if the prescription is for a schedule II op... Start Date: 04/13/20 Stop Date: 05/11/20 Status: Ordered busPIRone 15 mg oral tablet 1 tablet = 15 mg, By Mouth, 3 times a day, # 42 tablet, 1 Refills, Maintenance, 04/13/20 14:56:00 EST, Tablet, [facility] #[id number], Partial fill upon patient request if the [...] 09/13/20 14:45:00 EDT, Route to Pharmacy Electronically, [facility] #[id number], Partial fill upon patient request if the [...] Maintenance, 10/22/2121:52:00 EDT, Route to Pharmacy Electronically, [facility] #[id number], Partial fill upon patient request if the prescription is for a schedule II... Start Date: 10/22/20 Status: Ordered fluticasone 50 mcg/inh nasal spray 2 sprays, Nares, Both, 2 times a day, # 9.9 mL, 0 Refills, Maintenance, 11/15/18 14:21:09 EDT, [place], 2 sprays Nares, Both 2 times a [...] 0 Refills, Maintenance, 01/07/21 18:42:00 EDT, Tablet, [facility] #[id number], Partial fill upon patient request if the [...] 05/28/21 9:00:00 EDT, 05/28/20 15:55:00 EDT, Patch, [facility] #[id number], Partial fill upon patient request if the [...] 04/13/20 14:57:00 EST, Route to Pharmacy Electronically, [facility] #[id number], Partial fill upon patient request if the [...] 0 Refills, Maintenance, 07/27/20 19:15:00 EDT, Tablet, [facility] #[id number], Partial fill upon patient request if the [...] Range]: 1 2 3 Height 185 cm (02/22/21 11:05 AM) 185 cm (02/21/21 7:05 PM) 185 cm (02/21/21 6:56 PM) Weight 110 kg (02/22/21 11:05 AM) 110 kg (02/21/21 7:05 PM) 110 kg (02/21/21 6:56 PM) Oxygen Saturation [94-100 %] 99 % (02/22/21 4:00 AM) 99 % (02/22/21 12:11 AM) 100 % (02/21/21 7:22 PM) Pulse Rate [55-90 bpm] 90 bpm (02/22/21 4:00 AM) 89 bpm (02/22/21 12:11 AM) 80 bpm (02/21/21 7:22 PM) Body Mass Index [18.5-24.99] 32.14 *>HHI* (02/21/21 6:56 PM) Blood Pressure [90-138/55-84 mm Hg] 120/70mm Hg (02/22/21 4:00 AM) 136/88mm Hg (02/22/21 12:11 AM) 152/102mm Hg *H* (02/21/21 7:22 PM) Respiratory Rate [16-30 br/min] 18 br/min (02/22/21 4:00 AM) 17 br/min (02/22/21 12:11 AM) 16 br/min (02/21/21 7:22 PM) Mode of Delivery (Oxygen) Room air (02/22/21 4:00 AM) Room air (02/22/21 12:11 AM) Room air (02/21/21 7:22 PM) Blood pressure sites Arm, right (02/22/21 4:00 AM) Arm, right (02/22/21 12:11 AM) Arm, right (02/21/21 7:22 PM) Dry Weight 110 kg (02/22/21 11:05 AM) 110 kg (02/21/21 7:05 PM) 110 kg (02/21/21 6:56 PM) Social History Social History Type Response Tobacco Use: 1PPD. Sex Medical Equipment Implanted Date:09/13/20Target Site:Abdomen Description Quantity MRI Company Model MESH VENTRALIGHT ECHO ELLIPS 4 - BARD ([id number]) 1 Bard Unknown HAYDEE:{01}[id number] Assigning Author ity:FDA
--- OUTSIDE RECORDS SUMMARY | 2022-10-14 11:52 | XMS_ITS | Continuity of Care Document ---
Author Name Unknown Organization [facility] [place] Address [address] [place] [address]- Care Team Providers Care Lan Support Specialist Name Role Phone Soto RAMIREZ MD, Bal Serrano Primary Care Physician Encounter [facility] Date(s): 11/01/20 - 12/01/20 [facility] [address] [place] [address]- Allergies, Adverse Reactions, Alerts Substance Reaction Severity [...] 02/13/1911:48:23 EST, Aerosol, Route to Pharmacy Electronically, [id number], [facility]/pharmacy #[id number] Start Date: 02/13/19 Status: Ordered [...] 3 Refills, Maintenance, 04/15/20 10:15:00 EST, Tablet, [facility] #[id number], Partial fill upon patient request if the prescription isfor a schedule II opioid drug., 183, cm, 04/15/20 0... Start Date: 04/15/20 Stop Date: 05/13/20 Status: Ordered amitriptyline 25 mg oral tablet 75 mg, 3, tablet, By Mouth, Daily, # 21 tablet, Refills 3, Tot. Refills 3, Maintenance, 04/13/20 14:55:00 EST, Route to Pharmacy Electronically, [facility] #[id number], Partial fill upon patientrequest if the prescription is for a schedule II op... Start Date: 04/13/20 Stop Date: 05/11/20 Status: Ordered baclofen 10 mg oral tablet 20 mg, 2, tablet, By Mouth, 2 times a day, # 56 tablet, Refills 1, Tot. Refills 1, Maintenance, 04/13/20 14:54:00 EST, Route to Pharmacy Electronically, [facility] #[id number], Partial fill uponpatient request if the prescription is for a schedu... Start Date: 04/13/20 Stop Date: 05/11/20 Status: Ordered busPIRone 15 mg oral tablet 1 tablet = 15 mg, By Mouth, 3 times a day, # 42 tablet, 1 Refills, Maintenance, 04/13/20 14:56:00 EST, Tablet, [facility] #[id number], Partial fill upon patient request if the prescription is for a schedule II opioid drug., 183, cm, 04/13/20 9:04... Start Date: 04/13/20 Stop Date: 05/11/20 Status: Ordered cloNIDine 0.1 mg oral tablet 0.1 mg, 1, tablet, By Mouth, 2 times a day, # 10 tablet, Refills 0, Tot. Refills 0, Maintenance, 10/22/20 15:02:00 EDT, Route to Pharmacy Electronically, [facility] #[id number], Partial fill upon patient request if the [...] 09/13/20 14:45:00 EDT, Route to Pharmacy Electronically, [facility] #[id number], Partial fill upon patient request if the prescription is for a salima... Start Date: 09/13/20 Status: Ordered Flomax 0.4 mg oral capsule 0.4 mg, 1, capsule, By Mouth, Daily, # 30 capsule, Refills 0, Tot. Refills 0, Maintenance, 10/22/2121:52:00 EDT, Route to Pharmacy Electronically, [facility] #[id number], Partial fill upon patient request if the prescription is for a schedule II... Start Date: 10/22/20 Status: Ordered fluticasone 50 mcg/inh nasal spray 2 sprays, Nares, Both, 2 times a day, # 9.9 mL, 0 Refills, Maintenance, 11/15/18 14:21:09 EDT, [place], 2 sprays Nares, Both 2 times a [...] 05/28/21 9:00:00 EDT, 05/28/20 15:55:00 EDT, Patch, [facility] #[id number], Partial fill upon patient request if the prescription is for aschedule II opioid drug., 1 patch Topically Daily,... Start Date: 05/28/20 Stop Date: 05/28/21 Status: Ordered propranolol 40 mg oral tablet 40 mg, 1, tablet, By Mouth, 2 times a day, # 28 tablet, Refills 1, Tot. Refills 1, Maintenance, 04/13/20 14:56:00 EST, Route to Pharmacy Electronically, [facility] #[id number], Partial fill uponpatient request if the prescription [...] 04/13/20 14:57:00 EST, Route to Pharmacy Electronically, [facility] #[id number], Partial fill upon patient request if the [...] 0 Refills, Maintenance, 07/27/20 19:15:00 EDT, Tablet, [facility] #[id number], Partial fill upon patient request if the [...] MESH VENTRALIGHT ECHO ELLIPS 4 - BARD ([id number]) 1 Bard Unknown HAYDEE:{[id number] Assigning Author ity:FDA
--- OUTSIDE RECORDS SUMMARY | 2022-10-14 11:52 | XMS_ITS | Continuity of Care Document ---
Author Name Unknown Organization [facility] Address [address] [place] [address]- Care Team Providers Care Molding Line Assistant Name Role Phone Soto RAMIREZ MD, Bal Serrano Primary Care Physician ( [phone] Encounter [facility] Date(s): 08/28/20 - 01/31/21 [facility] [address] [place], [place] [address] Attending Physician: Darren Diaz MD Admitting Physician: Darren Diaz MD Referring Physician: Darren Diaz MD Allergies, Adverse Reactions, Alerts Substance Reaction [...] 02/13/1911:48:23 EST, Aerosol, Route to Pharmacy Electronically, [id number], [facility]/pharmacy #1111 Start Date: 02/13/19 [...] 3 Refills, Maintenance, 04/15/20 10:15:00 EST, Tablet, [facility] #[id number], Partial fill upon patient request if the prescription isfor a schedule II opioid drug., 183, cm, 04/15/20 0... Start Date: 04/15/20 Stop Date: 05/13/20 Status: Ordered amitriptyline 25 mg oral tablet 75 mg, 3, tablet, By Mouth, Daily, # 21 tablet, Refills 3, Tot. Refills 3, Maintenance, 04/13/20 14:55:00 EST, Route to Pharmacy Electronically, [facility] #[id number], Partial fill upon patientrequest if the prescription is for a schedule II op... Start Date: 04/13/20 Stop Date: 05/11/20 Status: Ordered baclofen 10 mg oral tablet 20 mg, 2, tablet, By Mouth, 2 times a day, # 56 tablet, Refills 1, Tot. Refills 1, Maintenance, 04/13/20 14:54:00 EST, Route to Pharmacy Electronically, [facility] #[id number], Partial fill uponpatient request if the prescription is for a schedu... Start Date: 04/13/20 Stop Date: 05/11/20 Status: Ordered busPIRone 15 mg oral tablet 1 tablet = 15 mg, By Mouth, 3 times a day, # 42 tablet, 1 Refills, Maintenance, 04/13/20 14:56:00 EST, Tablet, [facility] #[id number], Partial fill upon patient request if the prescription is for a schedule II opioid drug., 183, cm, 04/13/20 9:04... Start Date: 04/13/20 Stop Date: 05/11/20 Status: Ordered cloNIDine 0.1 mg oral tablet 0.1 mg, 1, tablet, By Mouth, 2 times a day, # 10 tablet, Refills 0, Tot. Refills 0, Maintenance, 10/22/20 15:02:00 EDT, Route to Pharmacy Electronically, [facility] #[id number], Partial fill upon patient request if the [...] 09/13/20 14:45:00 EDT, Route to Pharmacy Electronically, [facility] #[id number], Partial fill upon patient request if the prescription is for a salima... Start Date: 09/13/20 Status: Ordered Flomax 0.4 mg oral capsule 0.4 mg, 1, capsule, By Mouth, Daily, # 30 capsule, Refills 0, Tot. Refills 0, Maintenance, 10/22/2121:52:00 EDT, Route to Pharmacy Electronically, [facility] #[id number], Partial fill upon patient request if the prescription is for a schedule II... Start Date: 10/22/20 Status: Ordered fluticasone 50 mcg/inh nasal spray 2 sprays, Nares, Both, 2 times a day, # 9.9 mL, 0 Refills, Maintenance, 11/15/18 14:21:09 EDT, [place], 2 sprays Nares, Both 2 times a [...] 0 Refills, Maintenance, 01/07/21 18:42:00 EDT, Tablet, [facility] #[id number], Partial fill upon patient request if the prescription is for a schedule II opioid drug., 183, cm, 01/07/21 17:... Start Date: 01/07/21 Status: Ordered nicotine 14 mg/24 hr transdermal film, extended release 1 patch, Topically, Daily, # 30 patch, 0 Refills, Acute 05/28/21 9:00:00 EDT, 05/28/20 15:55:00 EDT, Patch, [facility] #[id number], Partial fill upon patient request if the prescription is for aschedule II opioid drug., 1 patch Topically Daily,... Start Date: 05/28/20 Stop Date: 05/28/21 Status: Ordered propranolol 40 mg oral tablet 40 mg, 1, tablet, By Mouth, 2 times a day, # 28 tablet, Refills 1, Tot. Refills 1, Maintenance, 04/13/20 14:56:00 EST, Route to Pharmacy Electronically, [facility] #[id number], Partial fill uponpatient request if the prescription [...] 04/13/20 14:57:00 EST, Route to Pharmacy Electronically, [facility] #[id number], Partial fill upon patient request if the [...] 0 Refills, Maintenance, 07/27/20 19:15:00 EDT, Tablet, [facility] #[id number], Partial fill upon patient request if the [...] MESH VENTRALIGHT ECHO ELLIPS 4 - BARD ([id number]) 1 Bard Unknown HAYDEE:{01}[id number] Assigning Author ity:FDA
--- OUTSIDE RECORDS SUMMARY | 2022-10-14 11:52 | XMS_ITS | Continuity of Care Document ---
Author Name Unknown Organization [facility] Address [address] [place] [address]- Care Team Providers Care Drama Teacher Name Role Phone Soto RAMIREZ MD, Bal Serrano Primary Care Physician Encounter [facility] Date(s): 06/24/20 - 06/24/[address] [address]- Discharge Disposition: A-D/C Walkout Attending Physician: Not on Staff, Attending MD Admitting Physician: Not on Staff, Admitting MD Referring Physician: Not on Staff, Referring [...] 02/13/1911:48:23 EST, Aerosol, Route to Pharmacy Electronically, [id number], [facility]/pharmacy #1111 Start Date: 02/13/19 Status: Ordered amitriptyline 100 mg oral tablet 1 tablet = 100 mg, By Mouth, Daily at bedtime, # 7 tablet, 3 Refills, Maintenance, 04/15/20 10:15:00 EST, Tablet, [facility] #[id number], Partial fill upon patient request if the prescription isfor a schedule II opioid drug., 183, cm, 04/15/20 0... Start Date: 04/15/20 Stop Date: 05/13/20 Status: Ordered amitriptyline 25 mg oral tablet 75 mg, 3, tablet, By Mouth, Daily, # 21 tablet, Refills 3, Tot. Refills 3, Maintenance, 04/13/20 14:55:00 EST, Route to Pharmacy Electronically, [facility] #[id number], Partial fill upon patientrequest if the prescription is for a schedule II op... Start Date: 04/13/20 Stop Date: 05/11/20 Status: Ordered baclofen 10 mg oral tablet 20 mg, 2, tablet, By Mouth, 2 times a day, # 56 tablet, Refills 1, Tot. Refills 1, Maintenance, 04/13/20 14:54:00 EST, Route to Pharmacy Electronically, [facility] #[id number], Partial fill uponpatient request if the prescription is for a schedu... Start Date: 04/13/20 Stop Date: 05/11/20 Status: Ordered busPIRone 15 mg oral tablet 1 tablet = 15 mg, By Mouth, 3 times a day, # 42 tablet, 1 Refills, Maintenance, 04/13/20 14:56:00 EST, Tablet, [facility] #[id number], Partial fill upon patient request if the prescription is for a schedule II opioid drug., 183, cm, 04/13/20 9:04... Start Date: 04/13/20 Stop Date: 05/11/20 Status: Ordered fluticasone 50 mcg/inh nasal spray 2 sprays, Nares, Both, 2 times a day, # 9.9 mL, 0 Refills, Maintenance, 11/15/18 14:21:09 EDT, [place], 2 sprays Nares, Both 2 times a [...] 05/28/21 9:00:00 EDT, 05/28/20 15:55:00 EDT, Patch, [facility] #[id number], Partial fill upon patient request if the prescription is for aschedule II opioid drug., 1 patch Topically Daily,... Start Date: 05/28/20 Stop Date: 05/28/21 Status: Ordered propranolol 40 mg oral tablet 40 mg, 1, tablet, By Mouth, 2 times a day, # 28 tablet, Refills 1, Tot. Refills 1, Maintenance, 04/13/20 14:56:00 EST, Route to Pharmacy Electronically, [facility] #[id number], Partial fill uponpatient request if the prescription [...] 04/13/20 14:57:00 EST, Route to Pharmacy Electronically, [facility] #[id number], Partial fill upon patient request if the [...] 1 Refills, Maintenance, 04/13/20 14:55:00 EST, Tablet, [facility] #[id number], Partial fill upon patient request if the [...] oldest [Reference Range]: 1 Height 184 cm (06/24/20 6:41 PM) Weight 138 kg (06/24/20 6:41 PM) Oxygen Saturation [94-100 %] 98 % (06/24/20 6:41 PM) Pulse Rate [55-90 bpm] 90 bpm (06/24/20 6:41 PM) Respiratory Rate [16-30 br/min] 20 br/mi n (06/24/20 6:41 PM) Temperature [96.8-100.4 DegF] 96.8 DegF (06/24/20 6:41 PM) Mode of Delivery (Oxygen) Room air (06/24/20 6:41 PM) Temperature Route Temporal (06/24/20 6:41 PM) Dry Weight 138 kg (06/24/20 6:41 PM) Weight Obtained Via Patient/family state d (06/24/20 6:41 PM) Dry Weight Obtained Via Patient/family s tated (06/24/20 6:41 PM) Social History Social History Type Response Tobacco Use: 1PPD. Sex
--- OUTSIDE RECORDS SUMMARY | 2022-10-14 11:52 | XMS_ITS | Continuity of Care Document ---
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 Start Date: 06/20/21 Status: Ordered amitriptyline 150 mg oral tablet 1 tablet = 150 mg, By Mouth, Daily at bedtime, # 5 tablet, 4 Refills, Maintenance, 07/11/21 11:18:00 EDT, Tablet, [facility] #[id number], Partial fill upon patient request if the prescription isfor a schedule II opioid drug., 182, cm, 06/20/21 2... Start Date: 07/11/21 Stop Date: 08/05/21 Status: Ordered ARIPiprazole 15 mg oral tablet 15 mg, 1, tablet, By Mouth, Daily, # 7 tablet, Refills 3, Tot. Refills 3, Maintenance, 07/14/21 11:18:00 EDT, Route to Pharmacy Electronically, [facility] #[id number], Partial fill upon patient request if the [...] 3 Refills, Maintenance, 07/14/21 11:19:00 EDT, Tablet, [facility] #[id number], Partial fill upon patient request if the [...] 06/20/21 23:55:00 EDT, Route to Pharmacy Electronically, [facility] #[id number], Partial fill upon patient request if the [...] 3 Refills, Maintenance, 07/14/21 11:19:00 EDT, Tablet, [facility] #[id number], Partial fill upon patient request if the prescription is for a schedule II opioid drug., 182, cm, 06/20/21 23:10:00 EDT... Start Date: 07/14/21 Stop Date: 08/11/21 Status: Ordered docusate sodium 100 mg oral capsule 100 mg, 1, capsule, By Mouth, 2 times a day, # 60 capsule, Refills 0, Tot. Refills 0, Maintenance, 06/20/21 23:57:00 EDT, Route to Pharmacy Electronically, [facility] #[id number], Partial fill upon patient request if the prescription is for a salima... Start Date: 06/20/21 Status: Ordered Flomax 0.4 mg oral capsule 0.4 mg, 1, capsule, By Mouth, Daily, # 30 capsule, Refills 0, Tot. Refills 0, Maintenance, 06/20/2222:57:00 EDT, Route to Pharmacy Electronically, [facility] #[id number], Partial fill upon patient request if the prescription is for a schedule II... Start Date: 06/20/21 Status: Ordered fluticasone 50 mcg/inh nasal spray 2 sprays, Nares, Both, 2 times a day, # 9.9 mL, 0 Refills, Maintenance, 11/15/18 14:21:09 EDT, [place], 2 sprays Nares, Both 2 times a [...] 20 mg, Tablet, By Mouth, Once, STAT, 09/28/21 15:59:00 EDT, Stop date 09/28/21 15:59:00 EDT Start Date: 09/28/21 Stop Date: 09/28/21 Status: Completed methocarbamol 500 mg oral tablet [...] 09/08/21 5:22:00 EDT, [id number], Partial fill upon patient request if the [...] [Reference Range]: 1 2 Height 183 cm (09/28/21 3:47 PM) 183 cm (09/28/21 2:00 PM) Weight 136 kg (09/28/21 3:47 PM) 136 kg (09/28/21 2:00 PM) Oxygen Saturation [94-100 %] 99 % (09/28/21 2:00 PM) Pulse Rate [55-90 bpm] 88 bpm (09/28/21 2:00 PM) Body Mass Index [18.5-24.99] 40.61 *>HHI* (09/28/21 3:47 PM) Blood Pressure [90-138/55-84 mm Hg] 113/ 54mm Hg (09/28/21 2:00 PM) Respiratory Rate [16-30 br/min] 22 br/mi n (09/28/21 4:29 PM) 24 br/min (09/28/21 2:00 PM) Temperature [96.8-100.4 DegF] 98.7 DegF (09/28/21 3:47 PM) Mode of Delivery (Oxygen) Room air (09/28/21 2:00 PM) Blood pressure sites Arm, left (09/28/21 2:00 PM) Temperature Route Temporal (09/28/21 3:47 PM) Dry Weight 136 kg (09/28/21 3:47 PM) 136 kg (09/28/21 2:00 PM) Social History Social History Type Response Smoking Status 10 or more cigarette s (1/2 pack or more)/day in last 30 days entered on: 06/10/21 Sex Medical Equipment Implanted Date:09/13/20Target Site:Abdomen Description Quantity MRI Company Model MESH VENTRALIGHT ECHO ELLIPS 4 - BARD ([id number]) 1 Bard Unknown HAYDEE:{01}[id number] Assigning Author ity:FDA
--- OUTSIDE RECORDS SUMMARY | 2022-10-14 11:52 | XMS_ITS | Continuity of Care Document ---
Author Name Unknown Organization [facility] Address [address] [place] [address]- Care Team Providers Care Social Media Manager Name Role Phone Soto RAMIREZ MD, Bal Serrano Primary Care Physician Encounter [facility] Date(s): 01/02/20 - 01/02/[address] [address]- [facility] Discharge Disposition: A-D/C Home Attending Physician: Triston Saravia MD Admitting Physician: Triston Saravia MD Referring Physician: Not on Staff, Referring MD Allergies, Adverse Reactions, Alerts Substance Reaction Severity Status Zoloft Active Thorazine Active ZyPREXA Active traZODone Active Medications albuterol CFC free 90 mcg/inh inhalation aerosol 2, puffs, Inhalation, Every 4 hours, PRN, # 18 Gm, Refills 3, Tot. Refills 3, Maintenance, 02/13/1911:48:23 EST, Aerosol, Route to Pharmacy Electronically, [id number], [facility]/pharmacy #1111 Start Date: 02/13/19 Status: Ordered [...] 0 Refills, Maintenance, 02/28/19 12:08:43 EST, Tablet, [facility]/pharmacy #1111, 183, cm, 02/28/19 11:39:08 EST, [...] Refills, Maintenance, 02/28/19 12:11:45 EST, EC Tablet, [facility]/pharmacy #1111, 183, cm, 02/28/19 11:39:08 EST, [...] Maintenance, 198:58:23 EST, Route to Pharmacy Electronically, [id number], [facility]/pharmacy #1111, 183, cm, 02/17/19 8:22:07 EST, Height, 127, kg... Start Date: 02/17/19 Status: Ordered fluticasone 50 mcg/inh nasal spray 2 sprays, Nares, Both, 2 times a day, # 9.9 mL, 0 Refills, Maintenance, 11/15/18 14:21:09 EDT, [place], 2 sprays Nares, Both 2 times a day Start Date: 11/15/18 Status: Ordered furosemide 20 mg oral tablet 20 mg, 1, tablet, By Mouth, 2 times a day, # 60 tablet, Refills 0, Tot. Refills 0, Maintenance, 10/12/19 19:13:00 EDT, [facility], 180, cm, 10/12/19 19:05:00EDT, Height, 135, kg, 10/12/19 19:05:00 EDT, Dry We... Start Date: 10/12/19 Status: Ordered gabapentin 800 mg oral tablet 1 tablet = 800 mg, By Mouth, 3 times a day, # 90 tablet, 1 Refills, Maintenance, 10/05/19 17:25:00 EDT, Tablet, [facility]/pharmacy #1111, 183, cm, 10/05/19 16:47:00 EDT, [...] Refills, Maintenance, 01/02/20 15:45:00 EDT, DIS Tablet, [facility]/pharmacy #1111, 183, cm, 01/02/20 15:23:00 EDT, Height, 123.4, kg, 01/02/20 15:23:00 EDT, Dry Weight Start Date: 01/02/20 Stop Date: 01/09/20 Status: Ordered PARoxetine 40 mg oral tablet [...] [Reference Range]: 1 2 Height 183 cm (01/02/20 3:58 PM) 183 cm (01/02/20 12:10 PM) Weight 123.4 kg (01/02/20 3:58 PM) 123.4 kg (01/02/20 12:10 PM) Oxygen Saturation [94-100 %] 99 % (01/02/20 3:58 PM) 100 % (01/02/20 12:10 PM) Pulse Rate [55-90 bpm] 98 bpm *H* (01/02/20 3:58 PM) 114 bpm *H* (01/02/20 12:10 PM) Body Mass Index [18.5-24.99] 36.85 *>HHI* (01/02/20 3:58 PM) Blood Pressure [90-138/55-84 mm Hg] 145/ 99mm Hg *H* (01/02/20 3:58 PM) Respiratory Rate [16-30 br/min] 16 br/mi n (01/02/20 3:58 PM) 16 br/min (01/02/20 12:10 PM) Temperature [96.8-100.4 DegF] 98.1 DegF (01/02/20 12:10 PM) Mode of Delivery (Oxygen) Room air (01/02/20 3:58 PM) Room air (01/02/20 12:10 PM) Temperature Route Temporal (01/02/20 12:10 PM) Dry Weight 123.4 kg (01/02/20 3:58 PM) 123.4 kg (01/02/20 12:10 PM) Weight Obtained Via Standing scale (01/02/20 12:10 PM) Dry Weight Obtained Via Standing scale (01/02/20 12:10 PM) Social History Social History Type Response Smoking Status 10 or more cigarette s (1/2 pack or more)/day in last 30 days; Tobacco user in household: No entered on: 11/15/18 Sex
--- OUTSIDE RECORDS SUMMARY | 2022-10-14 11:52 | XMS_ITS | Continuity of Care Document ---
Author Name Unknown Organization [facility] Address [address] [place] [address]- Care Team Providers Care Ekg Monitor Tech Name Role Phone Elmer Garcia MD Primary Care Physician [id number] Date(s): 02/13/19 - 02/20/19 [facility] [address] [place] [address]- [facility] Attending Physician: Elmer Garcia MD Allergies, Adverse Reactions, Alerts Substance Reaction Severity Status Zoloft Active traZODone Active ZyPREXA Active PROzac Active SEROquel Active Medications albuterol CFC free 90 mcg/inh inhalation aerosol 2, puffs, Inhalation, Every 4 hours, PRN, # 18 Gm, Refills 3, Tot. Refills 3, Maintenance, 02/13/1911:48:23 EST, Aerosol, Route to Pharmacy Electronically, [id number], [facility]/pharmacy #1111 Start Date: 02/13/19 Status: Ordered baclofen 20 mg oral tablet See Instructions, 1 tablet By Mouth once at bedtime, # 30 tablet, Refills 0, Tot. Refills 0, Maintenance, 02/13/19 16:26:19 EST, Instructions Replace Required Details, Route to Pharmacy Electronically, [id number], [facility] Start Date: 02/13/19 Status: Ordered benztropine [...] Maintenance, 198:58:23 EST, Route to Pharmacy Electronically, [id number], [facility]/pharmacy #1111, 183, cm, 02/17/19 8:22:07 EST, Height, 127, kg... Start Date: 02/17/19 Status: Ordered fluticasone 50 mcg/inh nasal spray 2 sprays, Nares, Both, 2 times a day, # 9.9 mL, 0 Refills, Maintenance, 11/15/18 14:21:09 EDT, [place], 2 sprays Nares, Both 2 times a [...] oldest [Reference Range]: 1 Height 183 cm (02/13/19 11:22 AM) Weight 128.8 kg (02/13/19 11:22 AM) Oxygen Saturation [94-100 %] 97 % (02/13/19 11:22 AM) Pulse Rate [55-90 bpm] 89 bpm (02/13/19 11:22 AM) Body Mass Index [18.5-24.99] 38.46 *>HHI* (02/13/19 11:22 AM) Blood Pressure [90-138/55-84 mm Hg] 128/ 88mm Hg (02/13/19 11:22 AM) Social History Social History Type Response Smoking Status 5-9 cigarettes (betw een 1/4 to 1/2 pack)/day in last 30 days entered on: 02/13/19 Sex
--- OUTSIDE RECORDS SUMMARY | 2022-10-14 11:52 | XMS_ITS | Continuity of Care Document ---
Author Name Unknown Organization [facility] ter Address [address] [place] [id number]- Care Team Providers Care Sprinkler Repair Technician Name Role Phone Soto RAMIREZ MD, Bal Serrano Primary Care Physician Encounter [facility] Date(s): 05/22/20 - 05/24/[address] [address] Discharge Disposition: Disch/Trans to IP Rehab or unit w/in Hos Attending Physician: Damien HENDERSON, Marc Pizano Admitting Physician: Cory Lemon MD Referring Physician: Not on Staff, Referring [...] 02/13/1911:48:23 EST, Aerosol, Route to Pharmacy Electronically, [id number], [facility]/pharmacy #[id number] Start Date: 02/13/19 Status: Ordered amitriptyline 100 mg oral tablet 1 tablet = 100 mg, By Mouth, Daily at bedtime, # 7 tablet, 3 Refills, Maintenance, 04/15/20 10:15:00 EST, Tablet, [facility] #[id number], Partial fill upon patient request if the prescription isfor a schedule II opioid drug., 183, cm, 04/15/20 0... Start Date: 04/15/20 Stop Date: 05/13/20 Status: Ordered amitriptyline 25 mg oral tablet 75 mg, 3, tablet, By Mouth, Daily, # 21 tablet, Refills 3, Tot. Refills 3, Maintenance, 04/13/20 14:55:00 EST, Route to Pharmacy Electronically, [facility] #[id number], Partial fill upon patientrequest if the prescription is for a schedule II op... Start Date: 04/13/20 Stop Date: 05/11/20 Status: Ordered baclofen 10 mg oral tablet 20 mg, 2, tablet, By Mouth, 2 times a day, # 56 tablet, Refills 1, Tot. Refills 1, Maintenance, 04/13/20 14:54:00 EST, Route to Pharmacy Electronically, [facility] #[id number], Partial fill uponpatient request if the prescription is for a schedu... Start Date: 04/13/20 Stop Date: 05/11/20 Status: Ordered benztropine 1 mg oral tablet 1 mg, 1, tablet, By Mouth, 2 times a day, PRN, for extrapyrimidal symptoms, Refills 0, Maintenance,Other, 05/24/20 16:42:00 EST, Partial fill upon patient request if the prescription is for a schedule II opioid drug. Start Date: 05/24/20 Status: Ordered busPIRone 15 mg oral tablet 1 tablet = 15 mg, By Mouth, 3 times a day, # 42 tablet, 1 Refills, Maintenance, 04/13/20 14:56:00 EST, Tablet, [facility] #[id number], Partial fill upon patient request if the prescription is for a schedule II opioid drug., 183, cm, 04/13/20 9:04... Start Date: 04/13/20 Stop Date: 05/11/20 Status: Ordered diazepam 2 mg oral tablet 2 mg, 1, tablet, By Mouth, 2 times a day, Refills 0, Maintenance, 05/24/20 16:42:00 EST, Partial fill upon patient request if the prescription is for a schedule II opioid drug. Start Date: 05/24/20 Status: Ordered fluticasone 50 mcg/inh nasal spray 2 sprays, Nares, Both, 2 times a day, # 9.9 mL, 0 Refills, Maintenance, 11/15/18 14:21:09 EDT, [place], 2 sprays Nares, Both 2 times a day Start Date: 11/15/18 Status: Ordered fluticasone-vilanterol Inhalation, Daily, 0 Refills, Maintenance, 05/24/20 16:42:00 EST, Inhaler, Partial fill upon patient request if the prescription is for a schedule II opioid drug. Start Date: 05/24/20 Status: Ordered folic acid 1 mg oral tablet 1 mg, 1, tablet, By Mouth, Daily, Refills 0, Maintenance, 05/24/20 16:43:00 EST, Partial fill upon patient request if the prescription is for a schedule II opioid drug. Start Date: 05/24/20 Status: Ordered haloperidol 5 mg oral tablet 5 mg, 1, tablet, By Mouth, Every 4 hours, PRN, Refills 0, Maintenance, Agitation, 05/24/20 16:43:00EST, Partial fill upon patient request if the prescription is for a schedule II opioid drug. Start Date: 05/24/20 Status: Ordered haloperidol 5 mg/mL injectable solution 1 mL = 5 mg, IV Push Slowly, 4 times a day, PRN Agitation, 0 Refills, Maintenance, 05/24/20 16:43:00 EST, Injection, Partial fill upon patient request if the prescription is for a schedule II opioid drug. Start Date: 05/24/20 Status: Ordered levothyroxine 0.05 mg oral tablet 1 tablet = 50 mcg, By Mouth, Daily, # 14 tablet, 1 Refills, Maintenance, 04/15/20 10:10:00 EST, Tablet, [facility] #[id number], Partial fill upon patient request if the prescription is for a schedule II opioid drug., 183, cm, 04/15/20 0:49:00 EST... Start Date: 04/15/20 Stop Date: 05/13/20 Status: Ordered Multivitamin Tablet 1 tablet, By Mouth, Daily, 0 Refills, Maintenance, 05/24/20 16:43:00 EST, Tablet, Partial fill uponpatient request if the prescription is for a schedule II opioid drug. Start Date: 05/24/20 Status: Ordered Nicoderm C-Q Clear 21 mg/24 hr transdermal film, extended release 1 patch, Topically, Daily, for 60 days, Keep 12 hours on and 12 hours off., # 60 patch, 2 Refills, Acute 10/11/20 12:36:00 EDT, 04/14/20 12:36:00 EST, Patch, [facility] #[id number], Partial fillupon patient request if the prescription is for a s... Start Date: 04/14/20 Stop Date: 10/11/20 Status: Ordered oxyCODONE 5 mg oral tablet 5 mg, 1, tablet, By Mouth, Every 6 hours, PRN, Refills 0, Tot. Refills 0, Maintenance, Pain , Moderate, 05/24/20 16:43:00 EST, Partial fill upon patient request if the prescription is for a schedule II opioid drug. Start Date: 05/24/20 Status: Ordered oxyCODONE 5 mg oral tablet 5 mg, Tablet, By Mouth, Every 6 hours, PRN for Pain , Moderate, Routine, 05/22/20 15:46:00 EST Start Date: 05/22/20 Stop Date: 05/24/20 Status: Discontinued propranolol 20 mg oral tablet 40 mg, Tablet, By Mouth, 05/24/20 9:00:00 EST Start Date: 05/24/20 Stop Date: 05/24/20 Status: Completed propranolol 40 mg oral tablet 40 mg, 1, tablet, By Mouth, 2 times a day, # 28 tablet, Refills 1, Tot. Refills 1, Maintenance, 04/13/20 14:56:00 EST, Route to Pharmacy Electronically, [facility] #[id number], Partial fill uponpatient request if the prescription [...] Date: 04/13/20 Stop Date: 05/11/20 Status: Ordered Pyridoxine Tablet 50 mg, By Mouth, Daily, Refills 0, Maintenance, 05/24/20 16:43:00 EST, Partial fill upon patient request if the prescription is for a schedule II opioid drug. Start Date: 05/24/20 Status: Ordered RisperDAL 2 mg oral tablet 2 mg, 1, tablet, By Mouth, 2 times a day, # 28 tablet, Refills 1, Tot. Refills 1, Maintenance, 04/13/20 14:57:00 EST, Route to Pharmacy Electronically, [facility] #[id number], Partial fill upon patient request if the prescription is for a schedul... Start Date: 04/13/20 Stop Date: 05/11/20 Status: Ordered Singulair = 10 mg, By Mouth, Daily, 0 Refills, Maintenance, 05/21/20 9:45:00 EST, Partial fill upon patient request if the prescription is for a schedule II opioid drug. Start Date: 05/21/20 Status: Ordered thiamine 100 mg oral tablet 100 mg, 1, tablet, By Mouth, 2 times a day, Refills 0, Maintenance, 05/24/20 16:43:00 EST, Partial fill upon patient request if the prescription is for a schedule II opioid drug. Start Date: 05/24/20 Status: Ordered topiramate 200 mg oral tablet 1 tablet = 200 mg, By Mouth, 2 times a day, # 28 tablet, 1 Refills, Maintenance, 04/13/20 14:55:00 EST, Tablet, [facility] #[id number], Partial fill upon patient request if the [...] Range]: 1 2 3 Height 185 cm (05/24/20 4:26 PM) 185 cm (05/24/20 11:48 AM) 185 cm (05/24/20 7:30 AM) Weight 137.4 kg (05/23/20 5:10 AM) 139.7 kg (05/22/20 2:26 AM) Oxygen Saturation [94-100 %] 97 % (05/24/20 4:26 PM) 100 % (05/24/20 11:48 AM) 98 % (05/24/20 7:30 AM) Pulse Rate [55-90 bpm] 93 bpm *H* (05/24/20 4:26 PM) 88 bpm (05/24/20 11:48 AM) 98 bpm *H* (05/24/20 10:14 AM) Body Mass Index [18.5-24.99] 40.15 *>HHI* (05/23/20 5:10 AM) 40.82 *>HHI* (05/22/20 2:26 AM) Blood Pressure [90-138/55-84 mm Hg] 117/88mm Hg (05/24/20 4:26 PM) 130/106mm Hg (05/24/20 11:48 AM) 124/86mm Hg (05/24/20 10:14 AM) Respiratory Rate [16-30 br/min] 18 br/min (05/24/20 4:26 PM) 18 br/min (05/24/20 4:04 PM) 18 br/min (05/24/20 11:48 AM) Temperature [96.8-100.4 DegF] 97.8 DegF (05/24/20 4:26 PM) 97.4 DegF (05/24/20 11:48 AM) 97.6 DegF (05/24/20 7:30 AM) Mode of Delivery (Oxygen) Room air (05/24/20 4:26 PM) Room air (05/24/20 11:48 AM) Room air (05/24/20 7:30 AM) Blood pressure sites Arm, left (05/24/20 4:26 PM) Arm, left (05/24/20 11:48 AM) Arm, left (05/24/20 7:30 AM) Temperature Route Oral (05/24/20 4:26 PM) Axillary (05/24/20 11:48 AM) Oral (05/24/20 7:30 AM) Dry Weight 139.7 kg (05/22/20 2:26 AM) Weight Obtained Via Bed scale (05/23/20 5:10 AM) Bed scale (05/22/20 2:26 AM) Social History Social History Type Response Tobacco Use: 1PPD. Sex
--- OUTSIDE RECORDS SUMMARY | 2022-10-14 11:52 | XMS_ITS | Continuity of Care Document ---
Author Name Unknown Organization [facility] Address [address] [place] [address]- Care Team Providers Care Photocopying Equipment Repairer Name Role Phone Soto RAMIREZ MD, Bal Serrano Primary Care Physician Encounter [facility] Date(s): 12/09/21 - 12/10/[address] [address]- Discharge Disposition: A-D/C Home Attending Physician: Doris [...] 23:55:00 EDT, Inhaler, Route to Pharmacy Electronically, [id number], [facility] #[id number], 182, cm, 06/20/21 23:10:00 EDT,... Start Date: 06/20/21 Status: Ordered amitriptyline 150 mg oral tablet 1 tablet = 150 mg, By Mouth, Daily at bedtime, # 5 tablet, 4 Refills, Maintenance, 07/11/21 11:18:00 EDT, Tablet, [facility] #[id number], Partial fill upon patient request if the prescription isfor a schedule II opioid drug., 182, cm, 06/20/21 2... Start Date: 07/11/21 Stop Date: 08/05/21 Status: Ordered ARIPiprazole 15 mg oral tablet 15 mg, 1, tablet, By Mouth, Daily, # 7 tablet, Refills 3, Tot. Refills 3, Maintenance, 07/14/21 11:18:00 EDT, Route to Pharmacy Electronically, [facility] #[id number], Partial fill upon patient request if the [...] 3 Refills, Maintenance, 07/14/21 11:19:00 EDT, Tablet, [facility] #[id number], Partial fill upon patient request if the [...] 06/20/21 23:55:00 EDT, Route to Pharmacy Electronically, [facility] #[id number], Partial fill upon patient request if the [...] 3 Refills, Maintenance, 07/14/21 11:19:00 EDT, Tablet, [facility] #[id number], Partial fill upon patient request if the prescription is for a schedule II opioid drug., 182, cm, 06/20/21 23:10:00 EDT... Start Date: 07/14/21 Stop Date: 08/11/21 Status: Ordered docusate sodium 100 mg oral capsule 100 mg, 1, capsule, By Mouth, 2 times a day, # 60 capsule, Refills 0, Tot. Refills 0, Maintenance, 06/20/21 23:57:00 EDT, Route to Pharmacy Electronically, [facility] #[id number], Partial fill upon patient request if the prescription is for a salima... Start Date: 06/20/21 Status: Ordered doxycycline hyclate 100 mg oral capsule 1 capsule = 100 mg, By Mouth, 2 times a day, for 7 days, # 14 capsule, 0 Refills, Acute 12/15/21 10:47:00 EDT, 12/08/21 10:47:00 EDT, Capsule, [facility] #[id number], Partial fill upon patient request if the prescription is for a schedule II opio... Start Date: 12/08/21 Stop Date: 12/15/21 Status: Ordered Flomax 0.4 mg oral capsule 0.4 mg, 1, capsule, By Mouth, Daily, # 30 capsule, Refills 0, Tot. Refills 0, Maintenance, 06/20/2222:57:00 EDT, Route to Pharmacy Electronically, [facility] #[id number], Partial fill upon patient request if the prescription is for a schedule II... Start Date: 06/20/21 Status: Ordered fluticasone 50 mcg/inh nasal spray 2 sprays, Nares, Both, 2 times a day, # 9.9 mL, 0 Refills, Maintenance, 11/15/18 14:21:09 EDT, [facility], 2 sprays Nares, Both 2 times a [...] 09/08/21 5:22:00 EDT, Route to Pharmacy Electronically, [facility] #[id number], Partial fill upon patient request if the [...] Range]: 1 2 3 Height 188 cm (12/09/21 11:09 PM) 188 cm (12/09/21 7:44 PM) Weight 88.5 kg (12/09/21 11:09 PM) 88.5 kg (12/09/21 7:44 PM) Oxygen Saturation [94-100 %] 95 % (12/09/21 11:09 PM) 100 % (12/09/21 7:44 PM) Pulse Rate [55-90 bpm] 85 bpm (12/09/21 11:09 PM) 73 bpm (12/09/21 7:44 PM) Body Mass Index [18.5-24.99 kg/m2] 25.04 kg/m2 *H* (12/09/21 11:09 PM) Blood Pressure [90-138/55-84 mm Hg] 115/72mm Hg (12/09/21 11:09 PM) 108/70mm Hg (12/09/21 7:44 PM) Respiratory Rate [16-30 br/min] 18 br/min (12/09/21 11:09 PM) 16 br/min (12/09/21 9:11 PM) 13 br/min *L* (12/09/21 7:44 PM) Mode of Delivery (Oxygen) Room air (12/09/21 11:09 PM) Room air (12/09/21 7:44 PM) Blood pressure sites Arm, left (12/09/21 11:09 PM) Arm, right (12/09/21 7:44 PM) Dry Weight 88.5 kg (12/09/21 11:09 PM) 88.5 kg (12/09/21 7:44 PM) Weight Obtained Via Standing scale (12/09/21 7:44 PM) Dry Weight Obtained Via Standing scale (12/09/21 7:44 PM) Social History Social History Type Response [...] Code MRI Safety Implantable Status 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 [id number] Unknown [id number] Unknown 03/11/21 Unknown Unknown Active GS1 Patient Care team information Personnel Name: Soto RAMIREZ MD, Bal Serrano Address: Address: [address] [place] [id number]
--- OUTSIDE RECORDS SUMMARY | 2022-10-14 11:52 | XMS_ITS | Continuity of Care Document ---
Author Name Unknown Organization [facility] Address [address] [place] [address]- Care Team Providers Care Mule Packer Name Role Phone Soto RAMIREZ MD, Bal Serrano Primary Care Physician Encounter [facility] Date(s): 09/27/21 - 09/27/[address] [address]- Discharge Disposition: A-D/C Home Attending Physician: Tommy Kee MD Admitting Physician: Tommy Kee MD Referring Physician: Not on Staff, Referring [...] 23:55:00 EDT, Inhaler, Route to Pharmacy Electronically, [id number], [facility] #[id number], 182, cm, 06/20/21 23:10:00 EDT,... Start Date: 06/20/21 Status: Ordered amitriptyline 150 mg oral tablet 1 tablet = 150 mg, By Mouth, Daily at bedtime, # 5 tablet, 4 Refills, Maintenance, 07/11/21 11:18:00 EDT, Tablet, [facility] #[id number], Partial fill upon patient request if the prescription isfor a schedule II opioid drug., 182, cm, 06/20/21 2... Start Date: 07/11/21 Stop Date: 08/05/21 Status: Ordered ARIPiprazole 15 mg oral tablet 15 mg, 1, tablet, By Mouth, Daily, # 7 tablet, Refills 3, Tot. Refills 3, Maintenance, 07/14/21 11:18:00 EDT, Route to Pharmacy Electronically, [facility] #[id number], Partial fill upon patient request if the [...] 3 Refills, Maintenance, 07/14/21 11:19:00 EDT, Tablet, [facility] #[id number], Partial fill upon patient request if the [...] 06/20/21 23:55:00 EDT, Route to Pharmacy Electronically, [facility] #[id number], Partial fill upon patient request if the [...] 3 Refills, Maintenance, 07/14/21 11:19:00 EDT, Tablet, [facility] #[id number], Partial fill upon patient request if the prescription is for a schedule II opioid drug., 182, cm, 06/20/21 23:10:00 EDT... Start Date: 07/14/21 Stop Date: 08/11/21 Status: Ordered docusate sodium 100 mg oral capsule 100 mg, 1, capsule, By Mouth, 2 times a day, # 60 capsule, Refills 0, Tot. Refills 0, Maintenance, 06/20/21 23:57:00 EDT, Route to Pharmacy Electronically, [facility] #[id number], Partial fill upon patient request if the prescription is for a salima... Start Date: 06/20/21 Status: Ordered Flomax 0.4 mg oral capsule 0.4 mg, 1, capsule, By Mouth, Daily, # 30 capsule, Refills 0, Tot. Refills 0, Maintenance, 06/20/2222:57:00 EDT, Route to Pharmacy Electronically, [facility] #[id number], Partial fill upon patient request if the prescription is for a schedule II... Start Date: 06/20/21 Status: Ordered fluticasone 50 mcg/inh nasal spray 2 sprays, Nares, Both, 2 times a day, # 9.9 mL, 0 Refills, Maintenance, 11/15/18 14:21:09 EDT, [place], 2 sprays Nares, Both 2 times a [...] 09/08/21 5:22:00 EDT, Route to Pharmacy Electronically, [facility] #[id number], Partial fill upon patient request if the [...] anxiety disorder(Confirmed) Active Hypothyroidism(Confirmed) Active Obese class II(Confirmed) Active Results Radiology Reports * Exam Date Time Procedure Performing Provider Status 09/27/21 4:31 AM Chest 2 Views Frontal and Lat Staci Cabezas; Auth (Verified) Notes: (Chest 2 Views Frontal and Lat) Reason For Exam: Angina RESULT: Chest 2 Views Frontal and Lat Chest 2 Views Frontal and Lat Hx of Present Illness: patient reports CP, sob - feeling like hes going to crawl out of skin, pain in bilateral legs - denies SI; Reason: Angina; Clinical Question(s): CHF COMPARISON: 08/26/2021 FINDINGS: LINES AND TUBES: None. LUNGS AND PLEURA: Clear lungs. Normal pulmonary vascularity. No pleural effusion. No pneumothorax. HEART, MEDIASTINUM AND WAYNE: Heart is normal in size. Normal upper mediastinal and hilar contour. BONES AND SOFT TISSUES: No acute abnormality. IMPRESSION: No acute abnormality. WSN: [id number] Ordering Physician: Tommy Kee Dictated By: Nany Heath MD, I Dictated Date/Time: 09/27/21 9:13 am Reviewed By: Nany Heath MD, I Signed By: Nany Heath MD, I Signed Date/Time: 09/27/21 9:13 am Transcribed By: RAVINDER Transcribed Date/Time: 09/27/21 9:12 am Vital Signs Most recent to oldest [Reference Range]: 1 2 3 Height 186 cm (09/27/21 5:28 AM) 186 cm (09/27/21 3:30 AM) 186 cm (09/27/21 3:29 AM) Weight 132 kg (09/27/21 5:28 AM) 132 kg (09/27/21 3:30 AM) 132 kg (09/27/21 3:29 AM) Oxygen Saturation [94-100 %] 100 % (09/27/21 5:28 AM) 99 % (09/27/21 3:29 AM) Pulse Rate [55-90 bpm] 67 bpm (09/27/21 5:28 AM) 70 bpm (09/27/21 3:29 AM) Body Mass Index [18.5-24.99] 38.15 *>HHI* (09/27/21 5:28 AM) 38.15 *>HHI* (09/27/21 3:29 AM) Blood Pressure [90-138/55-84 mm Hg] 117/79mm Hg (09/27/21 5:28 AM) 101/51mm Hg (09/27/21 3:29 AM) Respiratory Rate [16-30 br/min] 20 br/min (09/27/21 5:28 AM) 16 br/min (09/27/21 3:29 AM) Temperature [96.8-100.4 DegF] 98 DegF (09/27/21 3:29 AM) Mode of Delivery (Oxygen) Room air (09/27/21 5:28 AM) room air (09/27/21 3:29 AM) Blood pressure sites Arm, right (09/27/21 5:28 AM) Arm, right (09/27/21 3:29 AM) Temperature Route Oral (09/27/21 3:29 AM) Dry Weight 132 kg (09/27/21 5:28 AM) 132 kg (09/27/21 3:30 AM) 132 kg (09/27/21 3:29 AM) Social History Social History Type Response Smoking Status 10 or more cigarette s (1/2 pack or more)/day in last 30 days entered on: 06/10/21 Sex Medical Equipment Implanted Date:09/13/20Target Site:Abdomen Description Quantity MRI Company Model MESH VENTRALIGHT ECHO ELLIPS 4 - BARD ([id number]) 1 Bard Unknown HAYDEE:{01}[id number] Assigning Author ity:FDA
--- OUTSIDE RECORDS SUMMARY | 2022-10-14 11:53 | XMS_ITS | Continuity of Care Document ---
Author Name Unknown Organization [facility] Address [address] [place] [address]- Care Team Providers Care Proof Load Mechanic Name Role Phone Elijah Gibbons MD Primary Care Physician Encounter [facility] Date(s): 11/14/19 - 12/14/19 [facility] [address] [place] [address]- [facility] Attending Physician: Admtr, Ar8 Admitting Physician: Admtr, Ar8 Referring Physician: Admtr, Ar8 Allergies, Adverse Reactions, Alerts Substance Reaction Severity Status Zoloft Active Thorazine Active traZODone Active ZyPREXA Active Medications albuterol CFC free 90 mcg/inh inhalation aerosol 2, puffs, Inhalation, Every 4 hours, PRN, # 18 Gm, Refills 3, Tot. Refills 3, Maintenance, 02/13/1911:48:23 EST, Aerosol, Route to Pharmacy Electronically, [id number], [facility]/pharmacy #[id number] Start Date: 02/13/19 Status: [...] 0 Refills, Maintenance, 02/28/19 12:08:43 EST, Tablet, [facility]/pharmacy #[id number], 183, cm, 02/28/19 11:39:08 EST, [...] Refills, Maintenance, 02/28/19 12:11:45 EST, EC Tablet, [facility]/pharmacy #1111, 183, cm, 02/28/19 11:39:08 EST, [...] Maintenance, 198:58:23 EST, Route to Pharmacy Electronically, [id number], [facility]/pharmacy #1111, 183, cm, 02/17/19 8:22:07 EST, Height, 127, kg... Start Date: 02/17/19 Status: Ordered fluticasone 50 mcg/inh nasal spray 2 sprays, Nares, Both, 2 times a day, # 9.9 mL, 0 Refills, Maintenance, 11/15/18 14:21:09 EDT, [place], 2 sprays Nares, Both 2 times a day Start Date: 11/15/18 Status: Ordered furosemide 20 mg oral tablet 20 mg, 1, tablet, By Mouth, 2 times a day, # 60 tablet, Refills 0, Tot. Refills 0, Maintenance, 10/12/19 19:13:00 EDT, Route to Pharmacy Electronically, [facility]/pharmacy #[id number], 180, cm, 10/12/19 19:05:00EDT, Height, 135, kg, 10/12/19 19:05:00 EDT, Dry We... Start Date: 10/12/19 Status: Ordered gabapentin 800 mg oral tablet 1 tablet = 800 mg, By Mouth, 3 times a day, # 90 tablet, 1 Refills, Maintenance, 10/05/19 17:25:00 EDT, Tablet, [facility]/pharmacy #1111, 183, cm, 10/05/19 16:47:00 EDT, [...]
--- OUTSIDE RECORDS SUMMARY | 2022-10-14 11:53 | XMS_ITS | Continuity of Care Document ---
Author Name Unknown Organization [facility] Address [address] [place] [address]- Care Team Providers Care Prefabricator Name Role Phone Elijah Gibbons MD Primary Care Physician Encounter [facility] Date(s): 10/12/19 - 10/12/[address] [address]- [facility] Discharge Disposition: A-D/C Home Attending Physician: Mansoor [...] 02/13/1911:48:23 EST, Aerosol, Route to Pharmacy Electronically, [id number], [facility] #1111 Start Date: 02/13/19 Status: Ordered busPIRone [...] Refills, Maintenance, 02/28/19 12:11:45 EST, EC Tablet, [facility] #1111, 183, cm, 02/28/19 11:39:08 EST, Height, 124, kg, 02/22/19 8:26:27 EST, Dry Weight Start Date: 02/28/19 Status: Ordered Flomax 0.4 mg oral capsule 0.4 mg, 1, capsule, By Mouth, Daily, # 30 capsule, Refills 0, Tot. Refills 0, Maintenance, 198:58:23 EST, Route to Pharmacy Electronically, [id number], [facility]acy #1111, 183, cm, 02/17/19 8:22:07 EST, Height, 127, kg... Start Date: 02/17/19 Status: Ordered fluticasone 50 mcg/inh nasal spray 2 sprays, Nares, Both, 2 times a day, # 9.9 mL, 0 Refills, Maintenance, 11/15/18 14:21:09 EDT, [place], 2 sprays Nares, Both 2 times a day Start Date: 11/15/18 Status: Ordered furosemide 20 mg oral tablet See Instructions, 1 tablet By Mouth in the AM, 2 tablets by mouth in the PM, # 60 tablet, Refills 0, Tot. Refills 0, Maintenance, 10/12/19 19:13:00 EDT, Instructions Replace Required Details, Route to Pharmacy Electronically, [facility] #1111, 180,... Start Date: 10/12/19 Status: Ordered gabapentin 800 mg oral tablet 1 tablet = 800 mg, By Mouth, 3 times a day, # 90 tablet, 1 Refills, Maintenance, 10/05/19 17:25:00 EDT, Tablet, [facility] #1111, 183, cm, 10/05/19 16:47:00 EDT, Height, 137.1, kg, 10/05/19 16:47:00 EDT, Dry Weight Start Date: 10/05/19 Status: Ordered ibuprofen 600 mg oral tablet 600 mg, 1, tablet, By Mouth, Every 6 hours, PRN, # 16 tablet, Refills 0, Tot. Refills 0, Acute 10/19/19 19:20:00 EDT, Pain , Moderate, 10/12/19 19:20:00 EDT, [facility] 180, cm, 10/12/19 19:05:00 EDT, Height,... Start Date: 10/12/19 Stop Date: 10/19/19 Status: Ordered Keflex monohydrate 500 mg oral capsule 1 capsule = 500 mg, By Mouth, 4 times a day, for 7 days, # 28 capsule, 0 Refills, Acute 10/17/19 19:34:00 EDT, 10/10/19 19:34:00 EDT, Capsule, [facility] #1111, 183, cm, 10/10/19 19:09:00 EDT, Height, 138.6, kg, 10/10/19 19:09:00 EDT, Dry Weight Start Date: 10/10/19 Stop Date: 10/17/19 Status: Ordered Lasix 20 mg oral tablet 20 mg, 1, tablet, By Mouth, Daily, # 30 tablet, Refills 0, Tot. Refills 0, Maintenance, 10/10/19 19:34:00 EDT, Route to Pharmacy Electronically, [facility] #1111, 183, cm, 10/10/19 19:09:00 EDT, Height, 138.6, kg, 10/10/19 19:09:00 EDT, Dry Weight Start Date: 10/10/19 Status: Ordered Lasix 20 mg oral tablet 20 mg, 1, tablet, By Mouth, 2 times a day, # 60 tablet, Refills 1, Tot. Refills 1, Maintenance, 10/05/19 17:26:00 EDT, Route to Pharmacy Electronically, [facility] #1111, 183, cm, 10/05/19 16:47:00EDT, Height, 137.1, [...] Acute 10/24/19 18:28:00 EDT, 10/10/2017:27:00 EDT, Powder, [facility] #1111, 1 application Topically 2 times a [...] 10/15/19 20:00:00 EDT, 10/10/19 19:33:00 EDT, Tablet, [facility] #1111, 183, cm, 10/10/19 19:09:00 EDT, Height, [...] recent to oldest [Reference Range]: 1 Height 180 cm (10/12/19 7:05 PM) Weight 135 kg (10/12/19 7:05 PM) Oxygen Saturation [94-100 %] 94 % (10/12/19 7:05 PM) Pulse Rate [55-90 bpm] 89 bpm (10/12/19 7:05 PM) Blood Pressure [90-138/55-84 mm Hg] 136/ 62mm Hg (10/12/19 7:05 PM) Respiratory Rate [16-30 br/min] 18 br/mi n (10/12/19 7:05 PM) Temperature [96.8-100.4 DegF] 98.2 DegF (10/12/19 7:05 PM) Mode of Delivery (Oxygen) Room air (10/12/19 7:05 PM) Temperature Route Temporal (10/12/19 7:05 PM) Dry Weight 135 kg (10/12/19 7:05 PM) Social History Social History Type Response Smoking Status 5-9 cigarettes (betw een 1/4 to 1/2 pack)/day in last 30 days; Tobacco user in household: No entered on: 02/28/19 Sex
--- OUTSIDE RECORDS SUMMARY | 2022-10-14 11:53 | XMS_ITS | Continuity of Care Document ---
Author Name Unknown Organization [facility] Address [address] [place] [address]- Care Team Providers Care Clinical Education Manager Name Role Phone Soto RAMIREZ MD, Bal Serrano Primary Care Physician Encounter [facility] Date(s): 01/07/22 - 01/07/[address] [address]- Discharge Disposition: A-D/C Home Attending Physician: Mansoor [...] 01/19/22 15:58:00 EST, 01/01/22 15:58:00 EDT, Tablet, [facility] #[id number], Partial fill upon patient request if the [...] 1 Refills, Maintenance, 01/01/22 15:55:00 EDT, Tablet, [facility] #[id number], Partial fill upon patient request if the prescription is for a schedule II opioid drug., 186, cm, 01/01/22 11:49:00 EDT... Start Date: 01/01/22 Stop Date: 01/29/22 Status: Ordered benztropine 1 mg oral tablet 1 mg, 1, tablet, By Mouth, Daily, # 14 tablet, Refills 1, Tot. Refills 1, Maintenance, 01/01/22 15:54:00 EDT, Route to Pharmacy Electronically, [facility] #[id number], Partial fill upon patient request if the prescription is for a schedule II opi... Start Date: 01/01/22 Stop Date: 01/29/22 Status: Ordered busPIRone 15 mg oral tablet 1 tablet = 15 mg, By Mouth, 3 times a day, # 30 tablet, 2 Refills, Maintenance, 01/01/22 15:55:00 EDT, Tablet, [facility] #[id number], Partial fill upon patient request if the [...] 01/01/22 15:56:00 EDT, Route to Pharmacy Electronically, [facility] #[id number], Partial fill upon patient request if the [...] 2 Refills, Maintenance, 01/01/22 15:54:00 EDT, Tablet, [facility] #[id number], Partial fill upon patient request if the prescription is for a schedule II opioid drug., 186, cm, 01/01/22 11:49:00 E... Start Date: 01/01/22 Stop Date: 01/31/22 Status: Ordered docusate sodium 100 mg oral capsule 100 mg, 1, capsule, By Mouth, 2 times a day, # 60 capsule, Refills 0, Tot. Refills 0, Maintenance, 06/20/21 23:57:00 EDT, Route to Pharmacy Electronically, [facility] #[id number], Partial fill upon patient request if the prescription is for a salima... Start Date: 06/20/21 Status: Ordered furosemide 40 mg oral tablet 80 mg, 2, tablet, By Mouth, Daily, # 14 tablet, Refills 1, Tot. Refills 1, Maintenance, 01/02/22 9:27:00 EDT, Route to Pharmacy Electronically, [facility] #[id number], Partial fill upon patient request if the prescription is for a schedule II opi... Start Date: 01/02/22 Stop Date: 01/16/22 Status: Ordered hydrOXYzine pamoate 25 mg oral capsule 2 capsule = 50 mg, By Mouth, 3 times a day, PRN Anxiety, for 7 days, # 30 capsule, 2 Refills, Acute01/22/22 15:54:00 EST, 01/01/22 15:54:00 EDT, Capsule, [facility] #[id number], Partial fill upon patient request if the prescription is for a sche... Start Date: 01/01/22 Stop Date: 01/22/22 Status: Ordered levothyroxine 0.05 mg oral tablet 1 tablet = 50 mcg, By Mouth, Daily, # 14 tablet, 1 Refills, Maintenance, 01/02/22 9:22:00 EDT, Tablet, [facility] #[id number], Partial fill upon patient request if the [...] 2 Refills, Maintenance, 01/01/22 15:54:00 EDT, Capsule, [facility] #[id number], Partial fill upon patient request if the [...] 01/02/22 9:33:00 EDT, Route to Pharmacy Electronically, [facility] #[id number], Partialfill upon patient request if the prescription [...] oldest [Reference Range]: 1 Height 185 cm (01/07/22 7:00 AM) Weight 100 kg (01/07/22 7:00 AM) Oxygen Saturation [94-100 %] 96 % (01/07/22 7:02 AM) Pulse Rate [55-90 bpm] 84 bpm (01/07/22 7:02 AM) Blood Pressure [90-138/55-84 mm Hg] 117/ 77mm Hg (01/07/22 7:02 AM) Respiratory Rate [16-30 br/min] 20 br/mi n (01/07/22 7:02 AM) Temperature [96.8-100.4 DegF] 98.7 DegF (01/07/22 7:02 AM) Mode of Delivery (Oxygen) Room air (01/07/22 7:02 AM) Blood pressure sites Arm, left (01/07/22 7:02 AM) Temperature Route Oral (01/07/22 7:02 AM) Dry Weight 100 kg (01/07/22 7:00 AM) Weight Obtained Via Patient/family state d (01/07/22 7:00 AM) Dry Weight Obtained Via Patient/family s tated (01/07/22 7:00 AM) Social History Social History Type Response [...] Code MRI Safety Implantable Status 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 [id number] Unknown [id number] Unknown 03/11/21 Unknown Unknown Active GS1 Patient Care team information Personnel Name: Soto RAMIREZ MD, Bal Serrano Address: Address: [address] [place] [id number]
--- OUTSIDE RECORDS SUMMARY | 2022-10-14 11:53 | XMS_ITS | Continuity of Care Document ---
Author Name Unknown Organization [facility] Address [address] [place] [address]- Care Team Providers Care Stylist Assistant Name Role Phone Not on Staff, PCP Primary Care Physician Unavail able Encounter [facility] Date(s): 07/08/22 - 08/07/22 [facility] [address] [place] [id number]- Allergies, Adverse Reactions, Alerts Substance Reaction Severity Status Zoloft Active traZODone Active ZyPREXA Active Immunizations Given and Recorded Vaccine Date Status Refusal Reason tetanus/diphtheria/pertussis, acel(Tdap) 04/09/22 Recorded tetanus/diphtheria/pertussis, acel(Tdap) 05/18/18 Recorded tetanus/diphtheria/pertussis, acel(Tdap) 12/19/16 Recorded [id number] 12y+ bivalent booster vax 02/11/22 Recorded SARS-CoV-2 [...] 1 Refills, Maintenance, 08/05/22 8:26:00 EDT, Tablet, [facility], Partial fill upon patient requestif the prescription is for a schedule II opioid dafne.Haylie. Start Date: 08/05/22 Stop Date: 09/02/22 Status: [...] 08/05/22 9:34:00 EDT, Route to Pharmacy Electronically, [facility], Partial fill upon patient reques... Start Date: 08/05/22 Stop Date: 09/02/22 Status: Ordered busPIRone 30 mg oral tablet 1 tablet = 30 mg, By Mouth, 2 times a day, TAKE ONE TABLET BY MOUTH TWO TIMES DAILY, # 28 tablet, 1Refills, Maintenance, 08/05/22 8:27:00 EDT, Tablet, [facility], Partial fill upon patient request if the prescription is for a schedule I... Start Date: 08/05/22 Stop Date: 09/02/22 Status: Ordered chlorproMAZINE 50 mg oral tablet See Instructions, TAKE ONE TABLET (50MG) BY MOUTH DAILY AT 9AM, 3PM AND TWO TABLETS (100MG) BY MOUTH DAILY AT BEDTIME, # 56 tablet, 1 Refills, Maintenance, 08/05/22 9:34:00 EDT, Tablet, [facility], Partial fill upon patient request if th... Start Date: 08/05/22 Status: Ordered cloNIDine 0.2 mg oral tablet 0.2 mg, 1, tablet, By Mouth, 2 times a day, TAKE ONE TABLET BY MOUTH TWO TIMES DAILY, # 28 tablet, Refills 1, Tot. Refills 1, Maintenance, 08/05/22 8:28:00 EDT, Route to Pharmacy Electronically, [facility], Partial fill upon patient requ... Start Date: 08/05/22 Stop Date: 09/02/22 Status: Ordered divalproex sodium 500 mg oral enteric coated tablet 2 tablets, By Mouth, 2 times a day, TAKE TWO TABLETS (1000MG) BY MOUTH TWO TIMES DAILY, # 56 tablet, 1 Refills, Maintenance, 08/05/22 9:36:00 EDT, Tablet, [facility], Partial fill upon patient request if the prescription is for a schedul... Start Date: 08/05/22 Stop Date: 09/02/22 Status: Ordered docusate sodium 100 mg oral capsule 100 mg, 1, capsule, By Mouth, 2 times a day, TAKE ONE CAPSULE BY MOUTH TWO TIMES DAILY, # 60 capsule, Refills 0, Tot. Refills 0, Maintenance, 08/05/22 8:29:00 EDT, Route to Pharmacy Electronically, [facility], Partial fill upon patient r... Start Date: 08/05/22 Status: Ordered escitalopram 10 mg oral tablet 1 tablet = 10 mg, By Mouth, Daily, TAKE ONE TABLET BY MOUTH DAILY, # 14 tablet, 1 Refills, Maintenance, 08/05/22 8:29:00 EDT, Tablet, [facility], Partial fill upon patient request if the prescription is for a schedule II opioid drug., 18... Start Date: 08/05/22 Stop Date: 09/02/22 Status: Ordered fluticasone 50 mcg/inh nasal spray 2 sprays, Nares, Both, Daily in AM, 0 Refills, Maintenance, 03/10/22 8:17:00 EST, [place], Partial fill upon patient request if the prescription is for a schedule II opioid drug. Start Date: 03/10/22 Status: Ordered furosemide 80 mg oral tablet 80 mg, 1, tablet, By Mouth, Daily, TAKE ONE TABLET BY MOUTH DAILY, # 14 tablet, Refills 1, Tot. Refills 1, Maintenance, 08/05/22 8:30:00 EDT, Route to Pharmacy Electronically, [facility], Partial fill upon patient request if the prescrip... Start Date: 08/05/22 Stop Date: 09/02/22 Status: Ordered hydrOXYzine pamoate 50 mg oral capsule 1 capsule = 50 mg, By Mouth, 2 times a day, PRN Anxiety, TAKE ONE CAPSULE BY MOUTH TWO TIMES DAILY NEEDED FOR ANXIETY, # 28 capsule, 1 Refills, Maintenance, 08/05/22 8:32:00 EDT, [facility], Partial fill upon patient request... Start Date: 08/05/22 Stop Date: 09/02/22 Status: Ordered indomethacin 50 mg oral capsule 1 capsule = 50 mg, By Mouth, 3 times a day, PRN for arthritis, # 21 capsule, 0 Refills, Maintenance, 07/15/22 14:29:00 EDT, Capsule, [facility] #[id number], Partial fill upon patient request if the prescription is for a schedule II opioid drug.,... Start Date: 07/15/22 Stop Date: 07/22/22 Status: Ordered levothyroxine 0.05 mg oral tablet 1 tablet = 50 mcg, By Mouth, Daily, TAKE ONE TABLET BY MOUTH DAILY, # 14 tablet, 1 Refills, Maintenance, 08/05/22 8:30:00 EDT, Tablet, [facility], Partial fill upon patient [...] 1 Refills, Maintenance, 08/05/22 8:31:00 EDT, Capsule, [facility], Partial fill uponpatient request [...] 1 Refills, Maintenance, 08/05/22 8:31:00 EDT, Capsule, [facility], Partial fill upon patient [...] Code MRI Safety Implantable Status 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 [id number] Unknown [id number] Unknown 03/11/21 Unknown Unknown Active GS1 Patient Care team information Care Team Personnel Name: Konrad Gallegos RN Position: [facility] ED RN W/OE and Tasks Member Role: Primary Care Nurse Name: Niki Bright RN Position: [facility] RN Member Role: Primary Care Nurse Name: Fang Che Position: [facility] RN Member Role: Primary Care Nurse Name: Trisha Alamo RN Position: [facility] RN Supv Member Role: Primary Care Nurse Name: iRta Son NP Position: [facility] Associate Professional Member Role: Primary Care Nurse Address: Address: [address] [place] [address] Name: Sol Chanel RN Position: [facility] RN Member Role: Primary Care Nurse Name: Trisha Beltrán RN Position: [facility] RN Supv Member Role: Primary Care Nurse Name: Helene Pérez RN Position: [facility] RN Member Role: Primary Care Nurse Name: Brenda Cuba RN Position: [facility] HBO Wound Member Role: Primary Care Nurse Name: Kell Alonso RN Position: [facility] RN Member Role: Primary Care Nurse Name: Faraz Barriga RN Position: [facility] RN Member Role: Primary Care Nurse Name: Richa Clay LPN Position: [facility] RN Member Role: Primary Care Nurse Name: Екатерина Chacko RN Position: [facility] RN Member Role: Primary Care Nurse Name: Anna Lackey RN Position: [facility] RN Member Role: Primary Care Nurse Name: Elizabeth Ha RN Position: [facility] RN Member Role: Primary Care Nurse Name: Not on Staff, PCP Position: [facility] Physician (General Medicine) Member Role: PCP Name: Anna Oconnor RN Position: [facility] Radio Sportscaster Member Role: Primary Care Nurse Name: Kip Gonzalez RN Position: [facility] RN Member Role: Primary Care Nurse Address: Address: [address] [place] [id number]- Name: Anisha Hinds RN Position: [facility] RN Member Role: Primary Care Nurse Name: Sunitha Gutierrez RN Position: [facility] RN Member Role: Primary Care Nurse Name: April Acuña RN Position: [facility] RN Member Role: Primary Care Nurse Name: Li Esquivel RN Position: [facility] Hospital Radio Sportscaster Member Role: Primary Care Nurse Name: Tunde White MD Position: [facility] Psychiatry MD Member Role: Lifetime Consulting Physician Address: Address: [address] [place] [address]- Care Team Related Persons Name: FORREST TO Address: home [address] [place] [address] Name: MÓNICA CREWS
--- OUTSIDE RECORDS SUMMARY | 2022-10-14 11:53 | XMS_ITS | Continuity of Care Document ---
Author Name Unknown Organization [facility] Address [address] [place] [address]- Care Team Providers Care Marine Habitat Resource Specialist Name Role Phone Soto RAMIREZ MD, Bal Serrano Primary Care Physician Encounter [facility] Date(s): 10/14/20 - 11/21/20 [facility] [address] [place] [address]- Attending Physician: Gus Vivas MD Allergies, Adverse [...] 02/13/1911:48:23 EST, Aerosol, Route to Pharmacy Electronically, [id number], [facility] #1111 Start Date: 02/13/19 [...] 3 Refills, Maintenance, 04/15/20 10:15:00 EST, Tablet, [facility] #[id number], Partial fill upon patient request if the prescription isfor a schedule II opioid drug., 183, cm, 04/15/20 0... Start Date: 04/15/20 Stop Date: 05/13/20 Status: Ordered amitriptyline 25 mg oral tablet 75 mg, 3, tablet, By Mouth, Daily, # 21 tablet, Refills 3, Tot. Refills 3, Maintenance, 04/13/20 14:55:00 EST, Route to Pharmacy Electronically, [facility] #[id number], Partial fill upon patientrequest if the prescription is for a schedule II op... Start Date: 04/13/20 Stop Date: 05/11/20 Status: Ordered baclofen 10 mg oral tablet 20 mg, 2, tablet, By Mouth, 2 times a day, # 56 tablet, Refills 1, Tot. Refills 1, Maintenance, 04/13/20 14:54:00 EST, Route to Pharmacy Electronically, [facility] #[id number], Partial fill uponpatient request if the prescription is for a schedu... Start Date: 04/13/20 Stop Date: 05/11/20 Status: Ordered busPIRone 15 mg oral tablet 1 tablet = 15 mg, By Mouth, 3 times a day, # 42 tablet, 1 Refills, Maintenance, 04/13/20 14:56:00 EST, Tablet, [facility] #[id number], Partial fill upon patient request if the prescription is for a schedule II opioid drug., 183, cm, 04/13/20 9:04... Start Date: 04/13/20 Stop Date: 05/11/20 Status: Ordered cloNIDine 0.1 mg oral tablet 0.1 mg, 1, tablet, By Mouth, 2 times a day, # 10 tablet, Refills 0, Tot. Refills 0, Maintenance, 10/22/20 15:02:00 EDT, Route to Pharmacy Electronically, [facility] #[id number], Partial fill upon patient request if the [...] 09/13/20 14:45:00 EDT, Route to Pharmacy Electronically, [facility] #[id number], Partial fill upon patient request if the prescription is for a salima... Start Date: 09/13/20 Status: Ordered Flomax 0.4 mg oral capsule 0.4 mg, 1, capsule, By Mouth, Daily, # 30 capsule, Refills 0, Tot. Refills 0, Maintenance, 10/22/2121:52:00 EDT, Route to Pharmacy Electronically, [facility] #[id number], Partial fill upon patient request if the prescription is for a schedule II... Start Date: 10/22/20 Status: Ordered fluticasone 50 mcg/inh nasal spray 2 sprays, Nares, Both, 2 times a day, # 9.9 mL, 0 Refills, Maintenance, 11/15/18 14:21:09 EDT, [place], 2 sprays Nares, Both 2 times a [...] 05/28/21 9:00:00 EDT, 05/28/20 15:55:00 EDT, Patch, [facility] #[id number], Partial fill upon patient request if the prescription is for aschedule II opioid drug., 1 patch Topically Daily,... Start Date: 05/28/20 Stop Date: 05/28/21 Status: Ordered propranolol 40 mg oral tablet 40 mg, 1, tablet, By Mouth, 2 times a day, # 28 tablet, Refills 1, Tot. Refills 1, Maintenance, 04/13/20 14:56:00 EST, Route to Pharmacy Electronically, [facility] #[id number], Partial fill uponpatient request if the prescription [...] 04/13/20 14:57:00 EST, Route to Pharmacy Electronically, [facility] #[id number], Partial fill upon patient request if the [...] 0 Refills, Maintenance, 07/27/20 19:15:00 EDT, Tablet, [facility] #[id number], Partial fill upon patient request if the [...] MESH VENTRALIGHT ECHO ELLIPS 4 - BARD ([id number]) 1 Bard Unknown HAYDEE:{01}[id number] Assigning Author ity:FDA
--- OUTSIDE RECORDS SUMMARY | 2022-10-14 11:53 | XMS_ITS | Continuity of Care Document ---
Author Name Unknown Organization [facility] Address [address] [place] [address]- Care Team Providers Care Assault Boat Coxswain Name Role Phone Soto RAMIREZ MD, Bal Serrano Primary Care Physician [place] [facility]/21 [facility] [address] [place], [place] [address] Attending Physician: Darren Diaz MD Admitting Physician: [...] 02/13/1911:48:23 EST, Aerosol, Route to Pharmacy Electronically, [id number], [facility] #1111 Start Date: 02/13/19 Status: Ordered amitriptyline 100 mg oral tablet 1 tablet = 100 mg, By Mouth, Daily at bedtime, # 7 tablet, 3 Refills, Maintenance, 04/15/20 10:15:00 EST, Tablet, [facility] #[id number], Partial fill upon patient request if the prescription isfor a schedule II opioid drug., 183, cm, 04/15/20 0... Start Date: 04/15/20 Stop Date: 05/13/20 Status: Ordered amitriptyline 25 mg oral tablet 75 mg, 3, tablet, By Mouth, Daily, # 21 tablet, Refills 3, Tot. Refills 3, Maintenance, 04/13/20 14:55:00 EST, Route to Pharmacy Electronically, [facility] #[id number], Partial fill upon patientrequest if the prescription is for a schedule II op... Start Date: 04/13/20 Stop Date: 05/11/20 Status: Ordered busPIRone 15 mg oral tablet 1 tablet = 15 mg, By Mouth, 3 times a day, # 42 tablet, 1 Refills, Maintenance, 04/13/20 14:56:00 EST, Tablet, [facility] #[id number], Partial fill upon patient request if the [...] 09/13/20 14:45:00 EDT, Route to Pharmacy Electronically, [facility] #[id number], Partial fill upon patient request if the [...] Maintenance, 10/22/2121:52:00 EDT, Route to Pharmacy Electronically, [facility] #[id number], Partial fill upon patient request if the prescription is for a schedule II... Start Date: 10/22/20 Status: Ordered fluticasone 50 mcg/inh nasal spray 2 sprays, Nares, Both, 2 times a day, # 9.9 mL, 0 Refills, Maintenance, 11/15/18 14:21:09 EDT, [place], 2 sprays Nares, Both 2 times a [...] 0 Refills, Maintenance, 01/07/21 18:42:00 EDT, Tablet, [facility] #[id number], Partial fill upon patient request if the [...] 05/28/21 9:00:00 EDT, 05/28/20 15:55:00 EDT, Patch, [facility] #[id number], Partial fill upon patient request if the [...] 04/13/20 14:57:00 EST, Route to Pharmacy Electronically, [facility] #[id number], Partial fill upon patient request if the [...] 0 Refills, Maintenance, 07/27/20 19:15:00 EDT, Tablet, [facility] #[id number], Partial fill upon patient request if the [...] MESH VENTRALIGHT ECHO ELLIPS 4 - BARD ([id number]) 1 Bard Unknown HYADEE:{01}[id number] Assigning Author ity:FDA
--- OUTSIDE RECORDS SUMMARY | 2022-10-14 11:53 | XMS_ITS | Continuity of Care Document ---
Author Name Unknown Organization [facility] Address [address] [place] [address]- Care Team Providers Care Inspector Tubes Name Role Phone Elijah Gibbons MD Primary Care Physician [phone] Encounter [facility] Date(s): 11/10/19 - 12/14/19 [facility] [address] [place] [address]- [facility] Attending Physician: Gus Vivas MD Referring Physician: Soto RAMIREZ MD, James C Allergies, Adverse Reactions, Alerts Substance Reaction Severity Status Zoloft Active Thorazine Active traZODone Active ZyPREXA Active Medications albuterol CFC free 90 mcg/inh inhalation aerosol 2, puffs, Inhalation, Every 4 hours, PRN, # 18 Gm, Refills 3, Tot. Refills 3, Maintenance, 02/13/1911:48:23 EST, Aerosol, Route to Pharmacy Electronically, [id number], [id number] Start Date: 02/13/19 Status: Ordered baclofen [...] 12:08:43 EST, Tablet, [facility], 183, cm, 12/17/19 11:39:08 EST, Height, 124, kg, 02/22/19 8:26:27 [...] Refills, Maintenance, 02/28/19 12:11:45 EST, EC Tablet, [facility]/pharmacy #[id number], 183, cm, 02/28/19 11:39:08 EST, [...] Maintenance, 198:58:23 EST, Route to Pharmacy Electronically, [id number], [facility]/pharmacy #[id number], 183, cm, 02/17/19 8:22:07 EST, Height, 127, kg... Start Date: 02/17/19 Status: Ordered fluticasone 50 mcg/inh nasal spray 2 sprays, Nares, Both, 2 times a day, # 9.9 mL, 0 Refills, Maintenance, 11/15/18 14:21:09 EDT, [place], 2 sprays Nares, Both 2 times a day Start Date: 11/15/18 Status: Ordered furosemide 20 mg oral tablet 20 mg, 1, tablet, By Mouth, 2 times a day, # 60 tablet, Refills 0, Tot. Refills 0, Maintenance, 10/12/19 19:13:00 EDT, Route to Pharmacy Electronically, [facility]/pharmacy #[id number], 180, cm, 10/12/19 19:05:00EDT, Height, 135, kg, 10/12/19 19:05:00 EDT, Dry We... Start Date: 10/12/19 Status: Ordered gabapentin 800 mg oral tablet 1 tablet = 800 mg, By Mouth, 3 times a day, # 90 tablet, 1 Refills, Maintenance, 10/05/19 17:25:00 EDT, Tablet, [facility]/pharmacy #[id number], 183, cm, 10/05/19 16:47:00 EDT, Height, [...]
--- OUTSIDE RECORDS SUMMARY | 2022-10-14 11:53 | XMS_ITS | Continuity of Care Document ---
Author Name Unknown Organization [facility] Address [address] [place] [address]- Care Team Providers Care Mirror Inspector Name Role Phone Not on Staff, PCP Primary Care Physician Unavail able Encounter [facility] Date(s): 04/20/22 - 05/20/[address] [address]- Attending Physician: Amandeep Morrissey Admitting Physician: Amandeep Morrissey Referring Physician: Amandeep Morrissey Allergies, Adverse Reactions, Alerts Substance Reaction Severity Status Zoloft Active Thorazine Active traZODone Active ZyPREXA Active Immunizations Given and Recorded Vaccine Date Status Refusal Reason tetanus/diphtheria/pertussis, acel(Tdap) 04/09/22 Recorded tetanus/diphtheria/pertussis, acel(Tdap) 05/18/18 Recorded tetanus/diphtheria/pertussis, acel(Tdap) 12/19/16 Recorded [id number] 12y+ bivalent booster vax 02/11/22 Recorded SARS-CoV-2 [...] 1 Refills, Maintenance, 05/08/22 12:50:00 EST, Tablet, [facility] #[id number], Partial fill upon patient request if the prescription is for a schedule II opioid drug., yolanda Go, 05/08/22 7:19:00 EST,... Start Date: 05/08/22 Stop Date: 06/05/22 Status: Ordered benztropine 1 mg oral tablet 1 mg, 1, tablet, By Mouth, Daily, # 14 tablet, Refills 1, Tot. Refills 1, Maintenance, 05/08/22 12:50:00 EST, Route to Pharmacy Electronically, [facility] #[id number], Partial fill upon patient request if the prescription is for a schedule II opi... Start Date: 05/08/22 Stop Date: 06/05/22 Status: Ordered busPIRone 30 mg oral tablet 1 tablet = 30 mg, By Mouth, 2 times a day, # 28 tablet, 0 Refills, Maintenance, 05/08/22 12:59:00 EST, Tablet, [facility] #[id number], Partial fill upon patient request if the prescription is for a schedule II opioid drug., yolanda Go, 05/08/22 7:19... Start Date: 05/08/22 Stop Date: 05/22/22 Status: Ordered chlorproMAZINE 100 mg oral tablet = 100 mg, By Mouth, Daily at bedtime, # 14 tablet, 0 Refills, Maintenance, 05/08/22 12:52:00 EST, Tablet, [facility] #[id number], Partial fill upon patient request if the prescription is for a schedule II opioid drug., yolanda Go, 05/08/22 7:19:00 E... Start Date: 05/08/22 Stop Date: 05/22/22 Status: Ordered chlorproMAZINE 50 mg oral tablet = 50 mg, By Mouth, Daily before lunch, # 14 tablet, 0 Refills, Maintenance, 05/08/22 12:51:00 EST, Tablet, [facility] #[id number], Partial fill upon patient request if the prescription is for a schedule II opioid drug., yolanda Go, 05/08/22 7:19:00... Start Date: 05/08/22 Stop Date: 05/22/22 Status: Ordered chlorproMAZINE 50 mg oral tablet 1 tablet = 50 mg, By Mouth, Daily in AM, # 180 tablet, 0 Refills, Maintenance, 05/08/22 12:53:00 EST, Tablet, [facility] #[id number], Partial fill upon patient request if the prescription is fora schedule II opioid drug., 176, cm, 05/08/22 7:19:... Start Date: 05/08/22 Status: Ordered cloNIDine 0.2 mg oral tablet 0.2 mg, 1, tablet, By Mouth, 2 times a day, # 20 tablet, Refills 2, Tot. Refills 2, Maintenance, 01/01/22 15:56:00 EDT, Route to Pharmacy Electronically, [facility] #[id number], Partial fill upon patient request if the prescription is for a sched... Start Date: 01/01/22 Stop Date: 01/31/22 Status: Ordered divalproex sodium 500 mg oral enteric coated tablet 1 tablet = 500 mg, By Mouth, Daily in AM, # 14 tablet, 0 Refills, Maintenance, 05/08/22 12:49:00 EST, Tablet, [facility] #[id number], Partial fill upon patient request if the prescription is fora schedule II opioid drug., 176, cm, 05/08/22 7:19:... Start Date: 05/08/22 Stop Date: 05/22/22 Status: Ordered divalproex sodium 500 mg oral enteric coated tablet 2 tablets, By Mouth, Daily at bedtime, # 28 tablet, 0 Refills, Maintenance, 05/08/22 12:49:00 EST, Tablet, [facility] #[id number], Partial fill upon patient request if the prescription is for a schedule II opioid drug., 176, cm, 05/08/22 7:19:00... Start Date: 05/08/22 Stop Date: 05/22/22 Status: Ordered docusate sodium 100 mg oral capsule 100 mg, 1, capsule, By Mouth, 2 times a day, # 60 capsule, Refills 0, Tot. Refills 0, Maintenance, 06/20/21 23:57:00 EDT, Route to Pharmacy Electronically, [facility] #[id number], Partial fill upon patient request if the [...] AM, 0 Refills, Maintenance, 03/10/22 8:17:00 EST, [place], Partial fill upon patient request if the [...] 1 Refills, Maintenance, 01/02/22 9:22:00 EDT, Tablet, [facility] #[id number], Partial fill upon patient request if the [...] Code MRI Safety Implantable Status 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 [id number] Unknown [id number] 2 Unknown 03/11/21 Unknown Unknown Active GS1 Patient Care team information Care Team Personnel Name: Konrad Gallegos RN Position: [facility] ED RN W/OE and Tasks Member Role: Primary Care Nurse Name: Niki Bright RN Position: [facility] RN Member Role: Primary Care Nurse Name: Fang Che Position: [facility] RN Member Role: Primary Care Nurse Name: Trisha Alamo RN Position: [facility] RN Supv Member Role: Primary Care Nurse Name: Rita Son NP Position: [facility] Associate Professional Member Role: Primary Care Nurse Address: Address: [address] [place] [address]- Name: Sol Chanel RN Position: [facility] RN Member Role: Primary Care Nurse Name: Trisha Beltrán RN Position: [facility] RN Supv Member Role: Primary Care Nurse Name: Helene Pérez RN Position: [facility] RN Member Role: Primary Care Nurse Name: Brenda Cuba RN Position: [facility] Wound Member Role: Primary Care Nurse Name: Kell Alonso RN Position: [facility] RN Member Role: Primary Care Nurse Name: Faraz Barriga RN Position: [facility] RN Member Role: Primary Care Nurse Name: Richa Clay LPN Position: [facility] RN Member Role: Primary Care Nurse Name: Екатерина Chacko RN Position: [facility] RN Member Role: Primary Care Nurse Name: Anna Lackey RN Position: [facility] RN Member Role: Primary Care Nurse Name: Elizabeth Ha RN Position: [facility] RN Member Role: Primary Care Nurse Name: Not on Staff, PCP Position: [facility] Physician (General Medicine) Member Role: PCP Name: Anna Oconnor RN Position: [facility] Fundraising Sale Representative Member Role: Primary Care Nurse Name: Kip Gonzalez RN Position: [facility] RN Member Role: Primary Care Nurse Address: Address: [address] [place] [address]- Name: Anisha Hinds RN Position: [facility] RN Member Role: Primary Care Nurse Name: Kari Grijalva RN Position: [facility] RN Member Role: Primary Care Nurse Name: Sunitha Gutierrez RN Position: [facility] RN Member Role: Primary Care Nurse Name: April Acuña RN Position: [facility] RN Member Role: Primary Care Nurse Name: Li Esquivel RN Position: [facility] Hospital Fundraising Sale Representative Member Role: Primary Care Nurse Name: Tunde White MD Position: [facility] Psychiatry MD Member Role: Lifetime Consulting Physician Address: Address: [address] [place] [address]- Care Team Related Persons Name: FORREST TO Address: home [address] [place] [id number] Name: MÓNICA CREWS
--- OUTSIDE RECORDS SUMMARY | 2022-10-14 11:53 | XMS_ITS | Continuity of Care Document ---
Author Name Unknown Organization [facility] Address [address] [place] [address]- Care Team Providers Care Complaint Clerk Name Role Phone Soto RAMIREZ MD, Bal Serrano Primary Care Physician ( [phone] Encounter [facility] Date(s): 09/17/20 - 10/17/20 [facility] [address] [place] [address]- Allergies, Adverse Reactions, Alerts Substance Reaction Severity [...] 02/13/1911:48:23 EST, Aerosol, Route to Pharmacy Electronically, [id number], [facility]/pharmacy #1111 Start Date: 02/13/19 [...] 3 Refills, Maintenance, 04/15/20 10:15:00 EST, Tablet, [facility] #[id number], Partial fill upon patient request if the prescription isfor a schedule II opioid drug., 183, cm, 04/15/20 0... Start Date: 04/15/20 Stop Date: 05/13/20 Status: Ordered amitriptyline 25 mg oral tablet 75 mg, 3, tablet, By Mouth, Daily, # 21 tablet, Refills 3, Tot. Refills 3, Maintenance, 04/13/20 14:55:00 EST, Route to Pharmacy Electronically, [facility] #[id number], Partial fill upon patientrequest if the prescription is for a schedule II op... Start Date: 04/13/20 Stop Date: 05/11/20 Status: Ordered baclofen 10 mg oral tablet 20 mg, 2, tablet, By Mouth, 2 times a day, # 56 tablet, Refills 1, Tot. Refills 1, Maintenance, 04/13/20 14:54:00 EST, Route to Pharmacy Electronically, [facility] #[id number], Partial fill uponpatient request if the prescription is for a schedu... Start Date: 04/13/20 Stop Date: 05/11/20 Status: Ordered busPIRone 15 mg oral tablet 1 tablet = 15 mg, By Mouth, 3 times a day, # 42 tablet, 1 Refills, Maintenance, 04/13/20 14:56:00 EST, Tablet, [facility] #[id number], Partial fill upon patient request if the prescription is for a schedule II opioid drug., 183, cm, 04/13/20 9:04... Start Date: 04/13/20 Stop Date: 05/11/20 Status: Ordered CeleBREX 100 mg oral capsule 1 capsule = 100 mg, By Mouth, 2 times a day, # 15 capsule, 0 Refills, Maintenance, 07/27/20 19:07:00 EDT, Capsule, [facility] #[id number], Partial fill upon patient request if the [...] 09/13/20 14:45:00 EDT, Route to Pharmacy Electronically, [facility] #[id number], Partial fill upon patient request if the prescription is for a salima... Start Date: 09/13/20 Status: Ordered fluticasone 50 mcg/inh nasal spray 2 sprays, Nares, Both, 2 times a day, # 9.9 mL, 0 Refills, Maintenance, 11/15/18 14:21:09 EDT, [place], 2 sprays Nares, Both 2 times a [...] 05/28/21 9:00:00 EDT, 05/28/20 15:55:00 EDT, Patch, [facility] #[id number], Partial fill upon patient request if the prescription is for aschedule II opioid drug., 1 patch Topically Daily,... Start Date: 05/28/20 Stop Date: 05/28/21 Status: Ordered propranolol 40 mg oral tablet 40 mg, 1, tablet, By Mouth, 2 times a day, # 28 tablet, Refills 1, Tot. Refills 1, Maintenance, 04/13/20 14:56:00 EST, Route to Pharmacy Electronically, [facility] #[id number], Partial fill uponpatient request if the prescription [...] 04/13/20 14:57:00 EST, Route to Pharmacy Electronically, [facility] #[id number], Partial fill upon patient request if the [...] 1 Refills, Maintenance, 04/13/20 14:55:00 EST, Tablet, [facility] #[id number], Partial fill upon patient request if the prescription is for a schedule II opioid drug., 183, cm, 04/13/20 9:0... Start Date: 04/13/20 Stop Date: 05/11/20 Status: Ordered traMADol 50 mg oral tablet 1 tablet = 50 mg, By Mouth, Every 12 hours, PRN for pain, # 10 tablet, 0 Refills, Maintenance, 07/27/20 19:15:00 EDT, Tablet, [facility] #[id number], Partial fill upon patient request if the [...] MESH VENTRALIGHT ECHO ELLIPS 4 - BARD ([id number]) 1 Bard Unknown HAYDEE:{01}[id number] Assigning Author ity:FDA
--- OUTSIDE RECORDS SUMMARY | 2022-10-14 11:53 | XMS_ITS | Continuity of Care Document ---
Author Name Unknown Organization [facility] Address [address] [place] [address]- Care Team Providers Care Shell Machine Operator Name Role Phone Soto RAMIREZ MD, Bal Serrano Primary Care Physician Encounter [facility] Date(s): 04/18/20 - 04/18/[address] [address]- Discharge Disposition: A-D/C Home Attending Physician: Konrad [...] 04/18/20 14:17:00 EST, Route to Pharmacy Electronically, [facility] #[id number] Tablet, Partial fill upon patient request if the prescription... Start Date: 04/18/20 Status: Ordered albuterol CFC free 90 mcg/inh inhalation aerosol 2, puffs, Inhalation, Every 4 hours, PRN, # 18 Gm, Refills 3, Tot. Refills 3, Maintenance, 02/13/1911:48:23 EST, Aerosol, Route to Pharmacy Electronically, [id number], [facility]/pharmacy #1111 Start Date: 02/13/19 Status: Ordered Ambien 10 mg oral tablet 1 tablet = 10 mg, By Mouth, Daily at bedtime, PRN for sleep, for 14 days, # 14 tablet, 0 Refills, Acute 04/28/20 12:38:00 EST, 04/14/20 12:38:00 EST, Tablet, [facility] #[id number], Partial fillupon patient request if the prescription is for a s... Start Date: 04/14/20 Stop Date: 04/28/20 Status: Ordered amitriptyline 100 mg oral tablet 1 tablet = 100 mg, By Mouth, Daily at bedtime, # 7 tablet, 3 Refills, Maintenance, 04/15/20 10:15:00 EST, Tablet, [facility] #[id number], Partial fill upon patient request if the prescription isfor a schedule II opioid drug., 183, cm, 04/15/20 0... Start Date: 04/15/20 Stop Date: 05/13/20 Status: Ordered amitriptyline 25 mg oral tablet 75 mg, 3, tablet, By Mouth, Daily, # 21 tablet, Refills 3, Tot. Refills 3, Maintenance, 04/13/20 14:55:00 EST, Route to Pharmacy Electronically, [facility] #[id number], Partial fill upon patientrequest if the prescription is for a schedule II op... Start Date: 04/13/20 Stop Date: 05/11/20 Status: Ordered Ativan 1 mg oral tablet 1.5 tablet = 1.5 mg, By Mouth, 2 times a day, PRN as needed for anxiety, for 14 days, # 30 tablet, 1 Refills, Acute 05/11/20 14:57:00 EST, 04/13/20 14:57:00 EST, Tablet, [facility] #[id number], Partial fill upon patient request if the prescriptio... Start Date: 04/13/20 Stop Date: 05/11/20 Status: Ordered baclofen 10 mg oral tablet 20 mg, 2, tablet, By Mouth, 2 times a day, # 56 tablet, Refills 1, Tot. Refills 1, Maintenance, 04/13/20 14:54:00 EST, Route to Pharmacy Electronically, [facility] #[id number], Partial fill uponpatient request if the prescription is for a schedu... Start Date: 04/13/20 Stop Date: 05/11/20 Status: Ordered busPIRone 15 mg oral tablet 1 tablet = 15 mg, By Mouth, 3 times a day, # 42 tablet, 1 Refills, Maintenance, 04/13/20 14:56:00 EST, Tablet, [facility] #[id number], Partial fill upon patient request if the prescription is for a schedule II opioid drug., 183, cm, 04/13/20 9:04... Start Date: 04/13/20 Stop Date: 05/11/20 Status: Ordered fluticasone 50 mcg/inh nasal spray 2 sprays, Nares, Both, 2 times a day, # 9.9 mL, 0 Refills, Maintenance, 11/15/18 14:21:09 EDT, [place], 2 sprays Nares, Both 2 times a day Start Date: 11/15/18 Status: Ordered levothyroxine 0.05 mg oral tablet 1 tablet = 50 mcg, By Mouth, Daily, # 14 tablet, 1 Refills, Maintenance, 04/15/20 10:10:00 EST, Tablet, [facility] #[id number], Partial fill upon patient request if the [...] 10/11/20 12:36:00 EDT, 04/14/20 12:36:00 EST, Patch, [facility] #[id number], Partial fillupon patient request if the prescription is for a s... Start Date: 04/14/20 Stop Date: 10/11/20 Status: Ordered propranolol 40 mg oral tablet 40 mg, 1, tablet, By Mouth, 2 times a day, # 28 tablet, Refills 1, Tot. Refills 1, Maintenance, 04/13/20 14:56:00 EST, Route to Pharmacy Electronically, [facility] #[id number], Partial fill uponpatient request if the prescription [...] 04/13/20 14:57:00 EST, Route to Pharmacy Electronically, [facility] #[id number], Partial fill upon patient request if the prescription is for a schedul... Start Date: 04/13/20 Stop Date: 05/11/20 Status: Ordered topiramate 200 mg oral tablet 1 tablet = 200 mg, By Mouth, 2 times a day, # 28 tablet, 1 Refills, Maintenance, 04/13/20 14:55:00 EST, Tablet, [facility] #[id number], Partial fill upon patient request if the [...] oldest [Reference Range]: 1 Height 183 cm (04/18/20 1:46 PM) Weight 141.5 kg (04/18/20 1:46 PM) Oxygen Saturation [94-100 %] 100 % (04/18/20 1:46 PM) Pulse Rate [55-90 bpm] 109 bpm *H* (04/18/20 1:46 PM) Blood Pressure [90-138/55-84 mm Hg] 132/ 95mm Hg (04/18/20 1:46 PM) Respiratory Rate [16-30 br/min] 17 br/mi n (04/18/20 1:46 PM) Temperature [96.8-100.4 DegF] 97.0 DegF (04/18/20 1:46 PM) Mode of Delivery (Oxygen) Room air (04/18/20 1:46 PM) Blood pressure sites Arm, left (04/18/20 1:46 PM) Temperature Route Temporal (04/18/20 1:46 PM) Dry Weight 141.5 kg (04/18/20 1:46 PM) Weight Obtained Via Standing scale (04/18/20 1:46 PM) Dry Weight Obtained Via Standing scale (04/18/20 1:46 PM) Social History Social History Type Response Smoking Status 10 or more cigarette s (1/2 pack or more)/day in last 30 days; Tobacco user in household: No entered on: 11/15/18 Sex
--- OUTSIDE RECORDS SUMMARY | 2022-10-14 11:53 | XMS_ITS | Continuity of Care Document ---
Author Name Unknown Organization [facility] Address [address] [place] [address]- Care Team Providers Care Machine Pecan Picker Name Role Phone Elijah Gibbons MD Primary Care Physician [phone] Encounter [facility] Date(s): 10/16/19 - 10/17/[address] [address]- [facility] Discharge Disposition: A-D/C AMA Attending Physician: Valerio Jean Baptiste MD Admitting Physician: Valerio Jean Baptiste MD Referring Physician: Not on Staff, Referring MD Allergies, Adverse Reactions, Alerts Substance Reaction Severity Status Zoloft Active Thorazine Active traZODone Active ZyPREXA Active PROzac Active SEROquel Active Medications albuterol CFC free 90 mcg/inh inhalation aerosol 2, puffs, Inhalation, Every 4 hours, PRN, # 18 Gm, Refills 3, Tot. Refills 3, Maintenance, 02/13/1911:48:23 EST, Aerosol, Route to Pharmacy Electronically, [id number], [facility]/pharmacy #1111 Start Date: 02/13/19 Status: [...] 23:35:00 EDT Start Date: 10/16/19 Status: Ordered busPIRone 15 mg oral tablet 1 tablet = 15 mg, By Mouth, 3 times a day, # 90 tablet, 0 Refills, Maintenance, 02/28/19 12:08:43 EST, Tablet, [facility]/pharmacy #1111, 183, cm, 02/28/19 [...] Maintenance, 198:58:23 EST, Route to Pharmacy Electronically, [id number], [facility]/pharmacy #1111, 183, cm, 02/17/19 8:22:07 EST, Height, 127, kg... Start Date: 02/17/19 Status: Ordered fluticasone 50 mcg/inh nasal spray 2 sprays, Nares, Both, 2 times a day, # 9.9 mL, 0 Refills, Maintenance, 11/15/18 14:21:09 EDT, [place], 2 sprays Nares, Both 2 times a day Start Date: 11/15/18 Status: Ordered furosemide 20 mg oral tablet See Instructions, 1 tablet By Mouth in the AM, 2 tablets by mouth in the PM, # 60 tablet, Refills 0, Tot. Refills 0, Maintenance, 10/12/19 19:13:00 EDT, Instructions Replace Required Details, Route to Pharmacy Electronically, [facility]/pharmacy #1111, 180,... Start Date: 10/12/19 Status: Ordered gabapentin 800 mg oral tablet 1 tablet = 800 mg, By Mouth, 3 times a day, # 90 tablet, 1 Refills, Maintenance, 10/05/19 17:25:00 EDT, Tablet, [facility]/pharmacy #1111, 183, cm, 10/05/19 16:47:00 EDT, Height, 137.1, kg, 10/05/19 16:47:00 EDT, Dry Weight Start Date: 10/05/19 Status: Ordered ibuprofen 600 mg oral tablet 600 mg, 1, tablet, By Mouth, Every 6 hours, PRN, # 16 tablet, Refills 0, Tot. Refills 0, Acute 10/19/19 19:20:00 EDT, Pain , Moderate, 10/12/19 19:20:00 EDT, [facility] 180, cm, 10/12/19 19:05:00 EDT, Height,... Start Date: 10/12/19 Stop Date: 10/19/19 Status: Ordered levothyroxine 0.05 mg oral tablet 1 tablet = 50 mcg, By Mouth, Daily, # 30 tablet, 0 Refills, Maintenance, 12/09/18 17:02:46 EDT, Tablet Start Date: 12/09/18 Status: Ordered Lotrimin AF 2% topical powder 1 application, Topically, 2 times a day, # 105 Gm, 0 Refills, Acute 10/24/19 18:28:00 EDT, 10/10/2017:27:00 EDT, Powder, [facility]/pharmacy #1111, 1 application Topically 2 times [...] Tablet Start Date: 11/15/18 Status: Ordered traMADol 100 mg oral tablet [...] recent to oldest [Reference Range]: 1 Height 182.88 cm (10/16/19 11:33 PM) Weight 132.7 kg (10/16/19 11:33 PM) Oxygen Saturation [94-100 %] 100 % (10/16/19 11:33 PM) Pulse Rate [55-90 bpm] 82 bpm (10/16/19 11:33 PM) Blood Pressure [90-138/55-84 mm Hg] 125/ 75mm Hg (10/16/19 11:33 PM) Respiratory Rate [16-30 br/min] 18 br/mi n (10/16/19 11:33 PM) Temperature [96.8-100.4 DegF] 98.5 DegF (10/16/19 11:33 PM) Mode of Delivery (Oxygen) Room air (10/16/19 11:33 PM) Temperature Route Temporal (10/16/19 11:33 PM) Dry Weight 132.7 kg (10/16/19 11:33 PM) Weight Obtained Via Standing scale (10/16/19 11:33 PM) Dry Weight Obtained Via Standing scale (10/16/19 11:33 PM) Social History Social History Type Response Smoking Status 10 or more cigarette s (1/2 pack or more)/day in last 30 days; Tobacco user in household: No entered on: 11/15/18 Sex
--- OUTSIDE RECORDS SUMMARY | 2022-10-14 11:53 | XMS_ITS ---
Author Name Leonel Alfaro Jr Address [address] [place] [address] Organization [facility] Address [address] [place] [address] Care Team Providers Care Account Consultant Name Role Phone Leonel Alfaro Jr Unavailable [phone] PROBLEMS Type Condition ICD9-CM Code JAQ93-OL Code Onset Dates Condition Status SNOMED Code Problem Gastritis K29.70 Active 9314000 Problem Iron deficiency anemia D50.9 Active 56726024 Problem Iron deficiency anemia due to chronic blood loss D50.0 Active [id number] ALLERGIES No Information ENCOUNTERS Encounter Location Date Diagnosis [facility] [address] [place] [address] Aug, [facility] Inpatient [address], [place] [id number] Aug, IMMUNIZATIONS No Known Immunizations SOCIAL HISTORY Never Assessed REASON FOR REFERRAL FUNCTIONAL STATUS PLAN OF CARE VITAL SIGNS MEDICATIONS Unknown Medications PROCEDURES Procedure Date Ordered Result Body Site UPPER GI ENDOSCOPY, BIOPSY September 03, 2021 [facility]IT [facility] CPLX September 01, 2021 RESULTS Name Result Date Reference Range Pathology 2021-09-03 Prothrombin Time INR 2021-09-02 Prothrombin Time 14.0 9.9-13.0 INTERNATIONAL NORM RATIO 1.2 0.9 -1.1 Ferritin 2021-09-02 Ferritin 85 20-250 Vitamin B12 and Folate 2021-09-02 Vitamin B12 496 200-900 Folate 14.8 >or = 4.0 REASON FOR VISIT pathology, FE DEF ANEMIA Insurance Providers Health Insurance Type Health Plan Insurance Address Health Plan Insurance Phone Health Plan Insurance Name Health Plan Coverage Dates Member ID Patient Relationship to Subscriber Patient Address Patient Phone Patient Name Patient Date of Subscriber ID Subscriber Name Subscriber Date of Group No [place] [address] [place] GONZALEZ [id number] [place] [id number] [place] [address] RAD[place] LISA [id number] [place] [id number]
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
--- OUTSIDE RECORDS SUMMARY | 2022-10-14 11:53 | XMS_ITS | Continuity of Care Document ---
Author Name Unknown Organization [facility] Address [address] [place] [address]- Care Team Providers Care Veterinary Dentist Name Role Phone Soto RAMIREZ MD, Bal Serrano Primary Care Physician Encounter [facility] Date(s): 09/18/21 - 09/18/[address] [address]- Discharge Disposition: A-D/C AMA Attending Physician: Tommy Kee MD Admitting Physician: [...] 23:55:00 EDT, Inhaler, Route to Pharmacy Electronically, [id number], [facility] #[id number], [address], [place], 06/20/21 23:10:00 EDT,... Start Date: 06/20/21 Status: Ordered amitriptyline 150 mg oral tablet 1 tablet = 150 mg, By Mouth, Daily at bedtime, # 5 tablet, 4 Refills, Maintenance, 07/11/21 11:18:00 EDT, Tablet, [facility] #[id number], Partial fill upon patient request if the prescription isfor a schedule II opioid drug., 182, cm, 06/20/21 2... Start Date: 07/11/21 Stop Date: 08/05/21 Status: Ordered ARIPiprazole 15 mg oral tablet 15 mg, 1, tablet, By Mouth, Daily, # 7 tablet, Refills 3, Tot. Refills 3, Maintenance, 07/14/21 11:18:00 EDT, Route to Pharmacy Electronically, [facility] #[id number], Partial fill upon patient request if the [...] 3 Refills, Maintenance, 07/14/21 11:19:00 EDT, Tablet, [facility] #[id number], Partial fill upon patient request if the [...] 06/20/21 23:55:00 EDT, Route to Pharmacy Electronically, [facility] #[id number], Partial fill upon patient request if the [...] 3 Refills, Maintenance, 07/14/21 11:19:00 EDT, Tablet, [facility] #[id number], Partial fill upon patient request if the prescription is for a schedule II opioid drug., 182, cm, 06/20/21 23:10:00 EDT... Start Date: 07/14/21 Stop Date: 08/11/21 Status: Ordered docusate sodium 100 mg oral capsule 100 mg, 1, capsule, By Mouth, 2 times a day, # 60 capsule, Refills 0, Tot. Refills 0, Maintenance, 06/20/21 23:57:00 EDT, Route to Pharmacy Electronically, [facility] #[id number], Partial fill upon patient request if the prescription is for a salima... Start Date: 06/20/21 Status: Ordered Flomax 0.4 mg oral capsule 0.4 mg, 1, capsule, By Mouth, Daily, # 30 capsule, Refills 0, Tot. Refills 0, Maintenance, 06/20/2222:57:00 EDT, Route to Pharmacy Electronically, [facility] #[id number], Partial fill upon patient request if the prescription is for a schedule II... Start Date: 06/20/21 Status: Ordered fluticasone 50 mcg/inh nasal spray 2 sprays, Nares, Both, 2 times a day, # 9.9 mL, 0 Refills, Maintenance, 11/15/18 14:21:09 EDT, [place], 2 sprays Nares, Both 2 times a [...] 09/08/21 5:22:00 EDT, Route to Pharmacy Electronically, [facility] #[id number], Partial fill upon patient request if the [...] Range]: 1 2 3 Height 183 cm (09/18/21 9:21 PM) 183 cm (09/18/21 8:31 PM) 183 cm (09/18/21 5:57 PM) Weight 136.5 kg (09/18/21 9:21 PM) 136.5 kg (09/18/21 8:31 PM) 136.5 kg (09/18/21 5:57 PM) Oxygen Saturation [94-100 %] 100 % (09/18/21 8:31 PM) 100 % (09/18/21 5:57 PM) Pulse Rate [55-90 bpm] 60 bpm (09/18/21 8:31 PM) 56 bpm (09/18/21 5:57 PM) Body Mass Index [18.5-24.99] 40.76 *>HHI* (09/18/21 8:31 PM) 40.76 *>HHI* (09/18/21 5:57 PM) Blood Pressure [90-138/55-84 mm Hg] 155/102mm Hg *H* (09/18/21 8:31 PM) 136/98mm Hg (09/18/21 5:57 PM) Respiratory Rate [16-30 br/min] 10 br/min *L* (09/18/21 5:57 PM) Liters per Minute 0 L/min (09/18/21 8:31 PM) Mode of Delivery (Oxygen) Room air (09/18/21 8:31 PM) Room air (09/18/21 5:57 PM) Blood pressure sites Arm, right (09/18/21 8:31 PM) Arm, right (09/18/21 5:57 PM) Dry Weight 136.5 kg (09/18/21 9:21 PM) 136.5 kg (09/18/21 8:31 PM) 136.5 kg (09/18/21 5:57 PM) Weight Obtained Via Patient/family state d (09/18/21 5:34 PM) Social History Social History Type Response Smoking Status 10 or more cigarette s (1/2 pack or more)/day in last 30 days entered on: 06/10/21 Sex Medical Equipment Implanted Date:09/13/20Target Site:Abdomen Description Quantity MRI Company Model MESH VENTRALIGHT ECHO ELLIPS 4 - BARD ([id number]) 1 Bard Unknown HAYDEE:{01}[id number] Assigning Author ity:FDA
--- NOTE | 2022-10-14 12:21 | PC.NURSE ---
x4 attempts (me + another rn) for blood/iv- diff stick- deena huang notified. pa also notified bp 95/57 MAP 67. pt continues to be drowsy, somnolent. +o2 on RA. etco2 45. resp 14
[2022-10-14 12:22] VITALS: BP 95/57; PULSE 72; RESP 14; O2SAT 93
--- NOTE | 2022-10-14 13:21 | PC.NURSE ---
deena bustamante bedside placing ej and doing labs after 3 executive staff assistant attempts. ordered to give x1 ns bolus. pt talking on/off drowsy. deena bustamante aware sbp 90s
[2022-10-14] MEDS: 0.9 % Sodium Chloride 1,000 ML 999 ML IV (13:22)
[2022-10-14 13:29] VITALS: BP 107/63; PULSE 67; RESP 13; TEMP 36.7; O2SAT 96
[2022-10-14 13:29] LABS: MANUAL DIFF FLAG NO
[2022-10-14 13:33] LABS: Basophils Percent Auto 0.5 % (0-2); Eosinophils Absolute Auto 0.4 X10*3/uL (0.0-0.4); Eosinophils Percent Auto 4.6 % (0-4); Hematocrit 34.5 % (42.0-52.0); Hemoglobin 10.9 g/dl (14.0-18.0); Imm Gran Abs Auto 0.03 X10*3/uL (0.00-0.03); Imm Gran Pct Auto 0.4 % (0.0-0.4); Lymphocytes Absolute Auto 1.5 X10*3/uL (1.2-4.9); Lymphocytes Percent Auto 17.7 % (20-40); Mean Corpuscular HGB Conc 31.6 g/dl (31.0-36.0); Mean Corpuscular Hemoglobin 26.1 pg (27.0-33.0); Mean Corpuscular Volume 82.7 fL (80.0-98.0); Mean Platelet Volume 9.1 fL (9.4-12.4); Monocytes Absolute Auto 0.6 X10*3/uL (0.1-1.2); Monocytes Percent Auto 7.1 % (2-11); Neutrophils Absolute Auto 5.7 x10*3/uL (2.0-8.3); Neutrophils Percent Auto 69.7 % (45-73); Platelet Count 146 X10*3/uL (160-400); Red Blood Count 4.17 X10*6/uL (4.60-5.80); Red Cell Distribution Width 15.6 % (11.0-16.0); White Blood Count 8.2 X10*3/uL (4.8-10.8)
--- NOTE | 2022-10-14 13:34 | PC.NURSE ---
fluids hanging. talks w slurry speech but answering most questions- assessment to the best of ability re: pt unclear/unsure about certain answers.
--- NOTE | 2022-10-14 13:37 | MHC.RECOVSUP ---
Attempted to meet with pt in ED22 who is here for MEAGAN, however pt was sleeping and unable to wake for conversation. will try to meet with pt at a later time.
[2022-10-14 13:52] LABS: B Type Natriuretic Peptide 28 pg/mL (<100)
[2022-10-14 13:56] LABS: Acetaminophen LAB < 17 mcg/mL (<30); Alanine Aminotransferase 14 U/L (0-40); Albumin Level 3.4 g/dL (3.5-5.0); Alkaline Phosphatase 79 U/L (39-117); Anion Gap 12 (12-20); Aspartate Amino Transferase 19 U/L (5-37); Bilirubin Direct < 0.2 mg/dL (0.0-0.5); Bilirubin Total 0.2 mg/dL (0.0-1.0); Blood Urea Nitrogen 10 mg/dL (9-16); Calcium 8.9 mg/dL (8.4-10.2); Carbon Dioxide 29 mmol/L (22-29); Chloride 101 mmol/L (96-108); Creatinine Clr Calc Pharmacy 193.8; Estimated Glomerular Filt Rate > 60; Ethanol < 10 mg/dL; Glucose Random 142 mg/dL (60-115); Magnesium 2.1 mg/dL (1.6-2.6); Potassium 3.8 mmol/L (3.3-5.1); Salicylate < 5.0 mg/dL (15-30); Sodium 138 mmol/L (135-145); Total Protein 6.8 g/dL (6.5-8.0)
[2022-10-14 15:00] VITALS: BP 98/64; PULSE 73; RESP 12; TEMP 36.7; O2SAT 98
--- NOTE | 2022-10-14 15:03 | PC.NURSE ---
pt more alert, etco2 37. drowsy but conversing on/off. deena bustamante notified ciwa 5, requesting pain meds for generalized pain.
--- NOTE | 2022-10-14 15:15 | PC.NURSE ---
deena hamlin p to bedside- pt conversing. ordered to try to ambulate- pt ambulated w RN and PA- baseline gait per pt's report- pt states has had knee surgeries and he has an unsteady gait normally. pt ate snacks/drank fluids w/o issue. EJ removed. BP stable. PA ordering discharge
[2022-10-14 15:33] VITALS: BP 103/76; PULSE 66; RESP 18; O2SAT 100
[2022-10-14] MEDS: Naloxone HCl Nasal TAKE HOME 4 MG SPRAY 8 MG NOSTRILALT (15:51)
== END 2022-10-14 16:15 | disposition home or self-care (01) ==
PROVIDERS: Physician Assistant; Emergency Provider Emergency Medicine
DX: T42.4X1A Poisoning by benzodiazepines, accidental (unintentional), initial encounter (principal); T51.0X1A Toxic effect of ethanol, accidental (unintentional), initial encounter; R11.2 Nausea with vomiting, unspecified; Y92.9 Unspecified place or not applicable; R53.83 Other fatigue; Z79.899 Other long term (current) drug therapy
CPT/HCPCS: 36415; 80048; 80076; 80143; 80179; 80307; 83735; 83880; 85025; 96360; 96361; 99284; 99285

== ENCOUNTER 2022-10-21 16:31 | Emergency (ER) | payer MEDICARE, MEDICAID, SELFPAY ==
--- NOTE | ~2022-10-21 | CT_ITS ---
EXAMINATION: CT CHEST, ABDOMEN AND PELVIS WITH CONTRAST CLINICAL INFORMATION: Reason for Exam fall COMPARISON: CT of the head, cervical spine and facial bones done on 10/21/2022 and radiographs of both knees also done on 10/21/2022. Chest radiograph done on 08/30/2021. TECHNIQUE: Multidetector volumetric imaging was performed from the thoracic inlet through the pubic symphysis following the administration of: Oral contrast: No Intravenous contrast: 85 mL Omnipaque 350 No contrast reaction reported Sagittal and coronal reformatted images were obtained on the technologist workstation. This CT examination was performed using dose optimization techniques as appropriate, variously including the following: *Automated exposure control. *Adjustment of mA and/or kV according to patient size (this includes techniques or standardized protocols for targeted exams where dose is matched to indication/reason for exam; i.e. extremities or head). *Use of iterative reconstruction technique. Total exam dose-length product 865 mGy-cm FINDINGS: LUNG: Subtle focal pleural parenchymal nodular opacity is noted at left lung base along the posterior costophrenic sulcus (450: 7) may represent focal infiltrate versus residual pleural-parenchymal scar. Linear pleural parenchymal opacity at left lung base posteromedially (411:7) may also represent pleural parenchymal scar versus atelectasis and/or infiltrate. Tiny calcified granuloma is noted at left upper lobe laterally at the level of the aortic arch (204:7). PLEURA: No pleural effusion or pneumothorax. MEDIASTINUM: Normal heart size. No pericardial effusion. No hilar or mediastinal lymphadenopathy. Incidental note is made of prominent thymic tissue within the anterior mediastinum. VASCULAR: No thoracic aortic aneurysm or dissection. Central pulmonary arteries are suboptimally visualized due to poor opacification with contrast. Evaluation of the intravascular tree is somewhat limited due to suboptimal opacification. CHEST WALL/AXILLA: No axillary or internal mammary lymphadenopathy. Mild bilateral gynecomastia. LIVER, GALLBLADDER, AND BILIARY TREE: The liver is normal in size, shape, and attenuation. No focal hepatic lesion or biliary ductal dilatation is present. The gallbladder is unremarkable with no evidence of radiopaque gallstones, gallbladder wall thickening, or obvious pericholecystic inflammatory changes. PANCREAS: Diffuse fatty replacement, otherwise unremarkable. SPLEEN: Normal size. No focal lesion. ADRENAL GLANDS: Normal; no mass. KIDNEYS AND URETERS: The kidneys are normal in size, shape, and attenuation. No hydronephrosis, hydroureter, or calculi. GASTROINTESTINAL TRACT: Stomach and small bowel non-dilated. No colonic wall thickening or pericolonic inflammatory changes. Nonvisualized appendix. No inflammatory changes around the cecum. ABDOMINAL WALL: Periumbilical nonspecific soft tissue thickening is present, may represent postsurgical change. Supra umbilical fat only containing midline ventral hernia is present (369:12). LYMPHOVASCULAR STRUCTURES: Multiple prominent soft tissue round-shaped densities are seen within the retroperitoneum extending into both common iliac as well as the both internal and external iliac vessels, suspicious for lymphadenopathy, suboptimally evaluated due to poor opacification of the vasculature. BLADDER: No focal mass or wall thickening seen. No bladder calculi. PELVIC VISCERA: Unremarkable. SOFT TISSUES: Lobulated soft tissue density at superior medial arch of the left gluteal region with mean Hounsfield value of 47 measures approximately 7.2 x 4.0 cm, given the history of trauma, most consistent with gluteal hematoma. OSSEOUS STRUCTURES: No acute or suspicious osseous abnormality. Incidental note is made of curvilinear dense sclerosis at both femoral head (100:14), consistent with avascular necrosis. Please correlate with clinical history. CT/CT abdomen pelvis w IV con IMPRESSION: 1. No CT evidence of any acute posttraumatic changes identified within the chest abdomen and pelvis. Note is however made of presence of likely left superior medial gluteal hematoma and possible periumbilical hematoma 2. Incidental note is made of retroperitoneal as well as pelvic lymphadenopathy, not optimally evaluated due to poor opacification of the adjacent vasculature. 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 3. Evaluation of the mediastinal vasculature especially the pulmonary arterial tree is technically limited due to suboptimal opacification.
--- NOTE | ~2022-10-21 | CT_ITS ---
EXAMINATION: NONCONTRAST HEAD CT NONCONTRAST MAXILLOFACIAL CT NONCONTRAST CERVICAL SPINE CT INDICATION INFORMATION: Fall. COMPARISON: None. TECHNIQUE: Separate noncontrast CT examinations of the head, maxillofacial bones, and cervical spine were performed. Coronal and sagittal images were created for each examination at the technologist workstation. This CT examination was performed using dose optimization techniques as appropriate, variously including the following: *Automated exposure control *Adjustment of mA and/or kV according to patient size (this includes techniques or standardized protocols for targeted exams where dose is matched to indication/reason for exam; i.e. extremities or head) *Use of iterative reconstruction technique DLP: 821, 648 and 345 mGy-cm FINDINGS: Head: There is no evidence of acute intracranial hemorrhage or territorial infarction. No abnormal mass effect or midline shift is seen. Fernando to white matter differentiation is well preserved. No extra-axial fluid collections are identified. No hydrocephalus. Proportional prominence of the ventricles and sulcal spaces is consistent with mild volume loss. Patchy periventricular and deep white matter hypoattenuation is consistent with mild small vessel ischemic changes. No acute soft tissue abnormality. No calvarial fracture. The mastoid air cells are well aerated. Maxillofacial: No acute maxillofacial fractures are seen. Mild mucosal thickening of the paranasal sinuses. The mandibular heads are well-seated in the condylar fossa. Multifocal periapical lucencies. The orbits demonstrate a normal appearance bilaterally. The globes are intact, and there are no suspicious findings to suggest retrobulbar hemorrhage. Cervical spine: There is anatomic alignment of the vertebral bodies and posterior elements. The atlantoaxial and atlantooccipital articulations are intact. Vertebral body heights are maintained. There is multilevel intervertebral disc space narrowing with endplate osteophyte formation and facet arthropathy. No evidence of acute fracture. No prevertebral soft tissue swelling. Visualized portions of the lung apices are unremarkable. The thyroid gland is unremarkable. CT/CT cervical spine wo IV con IMPRESSION: 1. No acute intracranial abnormality. 2. No acute maxillofacial fractures. 3. No acute cervical spinal fractures or malalignment. 4. Periapical disease at multiple teeth, recommend dental referral. Mild mucosal thickening of the paranasal sinuses.
--- NOTE | ~2022-10-21 | XR_ITS ---
EXAMINATION: XR knee RT 3V, XR knee LT 3V CLINICAL INFORMATION: Pain COMPARISON: None. TECHNIQUE: 4 views of the right knee. 4 views of the left knee. FINDINGS: Right knee: No acute fracture or subluxation. Moderate medial compartment joint space narrowing. Small tricompartmental marginal osteophytes. There is a large joint effusion. Anterior soft tissue swelling. Left knee: No acute fracture or subluxation. Moderate lateral compartment joint space narrowing. There are prominent tricompartmental marginal osteophytes. There is a large joint effusion. Mild diffuse soft tissue swelling. XR/XR knee RT 3V IMPRESSION: Moderate tricompartmental degenerative changes of both knees. Greatest at the medial compartment of the right knee in the lateral compartment of the left knee. Large bilateral joint effusions are present. No acute osseous abnormality. Bilateral soft tissue swelling.
--- NOTE | ~2022-10-21 | XR_ITS ---
EXAMINATION: XR knee RT 3V, XR knee LT 3V CLINICAL INFORMATION: Pain COMPARISON: None. TECHNIQUE: 4 views of the right knee. 4 views of the left knee. FINDINGS: Right knee: No acute fracture or subluxation. Moderate medial compartment joint space narrowing. Small tricompartmental marginal osteophytes. There is a large joint effusion. Anterior soft tissue swelling. Left knee: No acute fracture or subluxation. Moderate lateral compartment joint space narrowing. There are prominent tricompartmental marginal osteophytes. There is a large joint effusion. Mild diffuse soft tissue swelling. XR/XR knee LT 3V IMPRESSION: Moderate tricompartmental degenerative changes of both knees. Greatest at the medial compartment of the right knee in the lateral compartment of the left knee. Large bilateral joint effusions are present. No acute osseous abnormality. Bilateral soft tissue swelling.
[2022-10-21 16:45] VITALS: BP 134/76; BP 150/84; PULSE 90; PULSE 95; RESP 20; TEMP 36.7; O2SAT 100; O2SAT 99; BMI 37.0
--- OUTSIDE RECORDS SUMMARY | 2022-10-21 17:34 | XMS_ITS | Continuity of Care Document ---
Author Name Unknown Organization [facility] Address [address] [place] [address]- Care Team Providers Care Photo Equipment Technician Name Role Phone Marvin Mac MD Primary Care Physician Encounter [facility] Date(s): 10/20/22 - 10/20/[address] [address]- Encounter Diagnosis Altered mental state(Final) - 10/20/22 Discharge Disposition: A-D/C Home Attending Physician: Lizzeth HENDERSON, Alcides Guaman Admitting Physician: Lizzeth HENDERSON, Alcides Guaman Referring Physician: Not on Staff, Referring MD Allergies, Adverse Reactions, Alerts Substance Reaction Severity Status Zoloft Active Remeron Active traZODone Active ZyPREXA Active Immunizations Given and Recorded Vaccine Date Status Refusal Reason tetanus/diphtheria/pertussis, acel(Tdap) 04/09/22 Recorded tetanus/diphtheria/pertussis, acel(Tdap) 05/18/18 Recorded tetanus/diphtheria/pertussis, acel(Tdap) 12/19/16 Recorded [id number] 12y+ bivalent booster vax 02/11/22 Recorded SARS-CoV-2 (COVID-19) mRNA-1273 vaccine 05/01/21 R ecorded influenza virus vaccine, inactivated 01/11/21 Sandro rded influenza virus vaccine, inactivated 12/27/17 Sandro rded influenza virus vaccine, inactivated 04/28/16 Sandro rded SARS-CoV-2 (COVID-19) mRNA BNT-162b2 vac 09/19/20 Recorded SARS-CoV-2 (COVID-19) mRNA BNT-162b2 vac 08/29/20 Recorded tetanus-diphtheria toxoids (Td) 12/14/18 Recorded Medications ARIPiprazole 15 mg oral tablet 30 mg, By Mouth, Daily, # 14 tablet, Refills 0, Tot. Refills 0, Maintenance, 07/18/23 15:25:00 EDT,Route to Pharmacy Electronically, [facility] #[id number], Partial fill upon patient request ifthe prescription is for a schedule II opioid drug.,... Start Date: 09/29/22 Stop Date: 10/13/22 Status: Ordered buprenorphine-naloxone 8 mg-2 mg sublingual film 2 film, Sublingual, Daily, # 14 film, 1 Refills, Maintenance, 09/29/22 15:26:00 EDT, Film, [facility] #[id number], Partial fill upon patient request if the [...] 1 Refills, Maintenance, 09/29/22 15:25:00 EDT, Tablet, [facility] #[id number], Partial fill upon patient request i... Start Date: 09/29/22 Status: Ordered cloNIDine 0.1 mg oral tablet 0.2 mg, By Mouth, 2 times a day, # 21 tablet, Refills 1, Tot. Refills 1, Maintenance, 09/29/22 15:26:00 EDT, Route to Pharmacy Electronically, [facility] #[id number], Partial fill upon patient request if the prescription is for a schedule II opio... Start Date: 09/29/22 Stop Date: 10/13/22 Status: Ordered docusate sodium 100 mg oral capsule 100 mg, 1, capsule, By Mouth, 2 times a day, TAKE ONE CAPSULE BY MOUTH TWO TIMES DAILY, # 60 capsule, Refills 0, Tot. Refills 0, Maintenance, 08/05/22 8:29:00 EDT, Route to Pharmacy Electronically, [facility], Partial fill upon patient r... Start Date: 08/05/22 Status: Ordered escitalopram 20 mg oral tablet 1 tablet = 20 mg, By Mouth, Daily, # 14 tablet, 0 Refills, Maintenance, 09/29/22 15:28:00 EDT, Tablet, [facility] #[id number], Partial fill upon patient request if the prescription is for a schedule II opioid drug., 182.88, cm, 09/29/22 14:33:00... Start Date: 09/29/22 Stop Date: 10/13/22 Status: Ordered furosemide 80 mg oral tablet 80 mg, 1, tablet, By Mouth, Daily, TAKE ONE TABLET BY MOUTH DAILY, # 14 tablet, Refills 1, Tot. Refills 1, Maintenance, 08/05/22 8:30:00 EDT, Route to Pharmacy Electronically, [facility], Partial fill upon patient request if the prescrip... Start Date: 08/05/22 Stop Date: 09/02/22 Status: Ordered levothyroxine 0.05 mg oral tablet 1 tablet = 50 mcg, By Mouth, Daily, TAKE ONE TABLET BY MOUTH DAILY, # 14 tablet, 1 Refills, Maintenance, 08/05/22 8:30:00 EDT, Tablet, [facility], Partial fill upon patient request if the prescription is for a schedule II opioid drug., 1... Start Date: 08/05/22 Stop Date: 09/02/22 Status: Ordered pregabalin 50 mg oral capsule = 200 mg, By Mouth, 2 times a day, # 40 capsule, 1 Refills, Maintenance, 09/29/22 15:26:00 EDT, Capsule, [facility] #[id number], Partial fill upon patient request if the [...] By Mouth, 3 times a day, # 15 tablet, Refills 0, Tot. Refills 0, Maintenance, 10/20/22 15:37:00 EDT, Route to Pharmacy Electronically, [facility] #[id number], Partial fill upon patient request if the prescription is for a schedul... Start Date: 10/20/22 Stop Date: 10/25/22 Status: Ordered tiZANidine 4 mg oral tablet 4 mg, 1, tablet, By Mouth, 3 times a day, PRN, # 21 tablet, Refills 1, Tot. Refills 1, Maintenance,Spasm, 09/29/22 15:26:00 EDT, Route to Pharmacy Electronically, [facility] #[id number], Partial fill upon patient request if the prescription is f... Start Date: 09/29/22 Stop Date: 10/13/22 Status: Ordered Problem List Condition Confirmation Course [...] to CAB a few times 04/28/2018: started [facility] bup/nal program Last Assessment & Plan: On suboxone 8-2mg bid. Per pt would like to change to methadone. Reports had been getting approx 4 mos ago. States still having cravings with suboxone- but denies any recent use. 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 via cab for further eval. 5Outside Source Comment: Last Assessment & Plan: Recent inpt psych hospitalization in [facility]. Denies any SI/HI at this time but very anxious about medications. DW pt no dose adjustments at this time and will need to connect with psych at [facility]- no current psych provider. Pt contracts for safety. Pt did come with rx avail- but sh ort on lorazepam. Will fill at this time but ensure has prescriber on d/c. met with pt todayand psych referral placed. Administration aware. Results Radiology Reports * Exam Date Time Procedure Performing Provider Status 10/20/22 8:12 PM Chest Single Frontal View Jerica Solomon; Auth (Verified) Notes: (Chest Single Frontal View) Reason For Exam: Shortness of Breath, Fever;Other: RESULT: Chest Single Frontal View Chest Single Frontal View Hx of Present Illness: AMS - xanax ?- fall on porch? bilateral knee pain, wound on left briceño; Reason: Other:; Shortness of Breath, Fever; Clinical Question(s): Pneumonia COMPARISON: 09/23/2022 FINDINGS: LINES AND TUBES: None. LUNGS AND PLEURA: Low lung volumes with mild basilar atelectasis. Lungs are otherwise clear with no consolidation. No pleural effusion. No pneumothorax. HEART, MEDIASTINUM AND WAYNE: Heart is normal in size. Normal mediastinal and hilar contour. BONES AND SOFT TISSUES: No acute abnormality. IMPRESSION: No acute abnormality. WSN: [id number] Ordering Physician: Alcides Moreau Dictated By: Gonzales Dudley MD Dictated Date/Time: 10/20/22 8:45 pm Reviewed By: Gonzales Dudley MD Signed By: Gonzales Dudley MD Signed Date/Time: 10/20/22 8:45 pm Transcribed By: RAVINDER Transcribed Date/Time: 10/20/22 8:36 pm Vital Signs Most recent to oldest [Reference Range]: 1 2 Height 183 cm (10/20/22 10:33 PM) 183 cm (10/20/22 7:28 PM) Weight 118 kg (10/20/22 10:33 PM) 118 kg (10/20/22 7:28 PM) Oxygen Saturation [94-100 %] 100 % (10/20/22 10:33 PM) 95 % (10/20/22 7:27 PM) Pulse Rate [55-90 bpm] 92 bpm *H* (10/20/22 10:33 PM) 111 bpm *H* (10/20/22 7:27 PM) Body Mass Index [18.5-24.99 kg/m2] 35.24 kg/m2 *>HHI* (10/20/22 10:33 PM) Blood Pressure [90-138/55-84 mm Hg] 145/ 90mm Hg *H* (10/20/22 10:33 PM) 138/67mm Hg (10/20/22 7:27 PM) Respiratory Rate [16-30 br/min] 16 br/mi n (10/20/22 10:33 PM) 19 br/min (10/20/22 7:27 PM) Temperature [96.8-100.4 DegF] 97.5 DegF (10/20/22 10:33 PM) 97.8 DegF (10/20/22 7:28 PM) Mode of Delivery (Oxygen) Room air (10/20/22 10:33 PM) Room air (10/20/22 7:27 PM) Blood pressure sites Arm, left (10/20/22 10:33 PM) Arm, right (10/20/22 7:27 PM) Temperature Route Oral (10/20/22 10:33 PM) Temporal (10/20/22 7:28 PM) Dry Weight 118 kg (10/20/22 10:33 PM) 118 kg (10/20/22 7:28 PM) Social History Social History Type Response [...] Code MRI Safety Implantable Status 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 [id number] Unknown [id number] 2 Unknown 03/11/21 Unknown Unknown Active GS1 Note * Lizzeth HENDERSON, Alcides Guaman: PERFORM Event Display: Patient Education Leaflets Authored Date: [id number] Altered Level of Consciousness ?? [id number] Altered Level of Consciousness Level of consciousness (LOC) is a measure of a person???s ability to interact with other people andto react to what is around them. A person with an altered level of consciousness may not respond totouch or voices. They??may look vacant or blank. They may not make eye contact with others. The person??may be limp and may not move for a long time. Or they may??show little interest in moving. They may also be confused. There are many causes of altered LOC. They include low blood sugar, infection, medicines, head injuries, seizures,??stroke, and being intoxicated.. Altered LOC is a medical emergency. The healthcare provider will do tests to help find the cause. These may include blood tests and imaging tests. The person is treated so breathing and heart rate are stable. An IV (intravenous) line may be put into a vein in the arm or hand to give medicines. Oncethe cause of altered LOC is found, the goal is to treat the cause. In almost all cases, the person will be admitted to the hospital for diagnostic testing and??observation. Some less common conditions, such as locked-in syndrome and akinetic mutism, seem like a??coma.??But the person??is perfectly awake. Home care When your loved one is released from the hospital, you will be given guidelines for caring for them. In general: ??? Follow the healthcare provider's instructions for giving any prescribed medicines to your child. ??? Stay with your loved one or have another responsible adult look after them. Watchcarefully for any return of symptoms or changes in behavior. ??? If the person has diabetes, make sure that any approved medicines are given on time and as prescribed. ?? Follow-up care Follow up with your??healthcare provider, or our staff as advised. ?? When to seek medical advice Call your??healthcare provider right away if new symptoms appear. ?? Call 911 Call 911 or get medical care right away??if symptoms of altered LOC return. ?? Last Reviewed Date: 2021 ?? The [employer]. All rights reserved. This information is not intended as a substitute for professional medical care. Always follow your healthcare professional's instructions. ?? Patient Care team information Care Team Personnel Name: Konrad Gallegos RN Position: [facility] ED RN W/OE and Tasks Member Role: Primary Care Nurse Name: Niki Bright RN Position: [facility] RN Member Role: Primary Care Nurse Name: Fang Che Position: [facility] RN Member Role: Primary Care Nurse Name: Trisha Alamo RN Position: [facility] RN Supv Member Role: Primary Care Nurse Name: Rita Son NP Position: [facility] Associate Professional Member Role: Primary Care Nurse Address: Address: [address] [place] [address] Name: Sol Chanel RN Position: [facility] RN Member Role: Primary Care Nurse Name: Trisha Beltrán RN Position: [facility] RN Supv Member Role: Primary Care Nurse Name: Helene Pérez RN Position: [facility] RN Member Role: Primary Care Nurse Name: Brenda Cuba RN Position: [facility] HBO Wound Member Role: Primary Care Nurse Name: Kell Alonso RN Position: [facility] RN Member Role: Primary Care Nurse Name: Richa Clay LPN Position: [facility] RN Member Role: Primary Care Nurse Name: Екатерина Chacko RN Position: [facility] RN Member Role: Primary Care Nurse Name: Anna Lackey RN Position: [facility] RN Member Role: Primary Care Nurse Name: Marvin Mac MD Position: [facility] Physician - Primary Care Member Role: PCP Address: Address: [address] [place] [address]- [place] Name: Anna Oconnor RN Position: [facility] Irrigation District Manager Member Role: Primary Care Nurse Name: Kip Briceño RN Position: [facility] RN Member Role: Primary Care Nurse Address: Address: [address] [place] [address]- [place] Name: Sunitha Gutierrez RN Position: [facility] RN Member Role: Primary Care Nurse Name: April Acuña RN Position: [facility] RN Member Role: Primary Care Nurse Name: Li Esquivel RN Position: [facility] Irrigation District Manager Member Role: Primary Care Nurse Name: Tunde White MD Position: [facility] Physician - Behavioral Health Member Role: Lifetime Consulting Physician Address: Address: [address] [place] [address]- [place] Name: Ramesh Bird RN Position: [facility] ED RN W/OE and Tasks Member Role: Patient Care Provider Name: Lizzeth HENDERSON, Alcides Guaman Position: [facility] Resident Member Role: Admitting Physician Address: Address: [address] [place] [address]- [place] Name: Swetha Wiley Position: [facility] ED [facility] Care Team Related Persons Name: FORREST TO Address: [address] [place] [address] Name: MÓNICA CREWS
--- OUTSIDE RECORDS SUMMARY | 2022-10-21 17:36 | XMS_ITS ---
Author Name Leonel Alfaro Jr Address [address] [place] [address] Organization [facility] Address [address] [place] [address] Care Team Providers Care Equipment Cleaner Name Role Phone Leonel Alfaro Jr Unavailable [phone] PROBLEMS Type Condition ICD9-CM Code PKV27-UD Code Onset Dates Condition Status SNOMED Code Problem Gastritis K29.70 Active 7950125 Problem Iron deficiency anemia D50.9 Active 44813217 Problem Iron deficiency anemia due to chronic blood loss D50.0 Active [id number] ALLERGIES No Information ENCOUNTERS Encounter Location Date Diagnosis [facility] [address] [place] [address] Aug, [facility] [address], [place] [id number] Aug, IMMUNIZATIONS No Known Immunizations SOCIAL HISTORY [...] Subscriber Name Subscriber Date of Group No MEDICARE OF [place] [address] RADHA GONZALEZ [id number] MEDICARE OF [place] TO [id number] MEDICAID OF [facility] [address] [place]ER[place]OVINCENT [place] [id number] MEDICAID OF [facility] self VAHID TO [id number]
--- NOTE | 2022-10-21 18:17 | ED.FALL ---
HPI - Fall General Chief Complaint: Fall Stated Complaint: FALL/SLIP AT HOME + COLLAR Time Seen by Provider: 10/21/22 16:48 Source: patient, EMS and RN notes reviewed Mode of arrival: EMS Limitations: no limitations History of Present Illness HPI Narrative: This is a 42-year-old male, with a past medical history of bipolar disease, PTSD, opioid abuse on methadone, chronic venous stasis, presenting to the emergency department via EMS from [facility], for evaluation of headache, neck pain, abdominal pain, back pain and bilateral knee pain status post mechanical fall which occurred yesterday. Patient states that while he was in his home, one of the lights was not working and he fell down approximately 7-8 steps. He states that he landed on his buttocks. He does admit that he hit his head, unsure of any loss of consciousness. He reports he has been unable to eat today as he has been nauseous and in a lot of pain. He decided to self admit himself into [facility] due to increased ?Delusions as he is under the impression that people are paying other people to kill him. He was seen at [facility] for an intake however due to patient's recent fall he was sent via EMS for further medical evaluation and clearance. No other complaints or concerns at this time. MD complaint: fall Onset (ago): day(s) Fall from: down stairs (#) (7) Fall witnessed: no Place fall occurred: home Loss of consciousness: unsure Prolonged down time: no Symptoms prior to fall: none Severity: mild Associated symptoms (after fall): denies Related Data Home Medications Medication Instructions Recorded Confirmed aripiprazole 30 mg tablet (Abilify) 30 mg PO BEDTIME 08/29/21 09/11/21 buspirone 30 mg tablet 30 mg PO BID 08/29/21 09/11/21 divalproex 500 mg tablet,extended 2,500 mg PO BEDTIME 08/29/21 09/11/21 release 24 hr (Depakote ER) montelukast 10 mg tablet 10 mg PO BEDTIME 08/29/21 09/11/21 (Singulair) ondansetron 4 mg disintegrating 4 mg PO BID PRN Nausea 08/29/21 09/11/21 tablet pregabalin 200 mg capsule (Lyrica) 200 mg PO BID 08/29/21 09/11/21 Zinc Oxide (Triple Paste) [Triple 1 appl topical 8XD PRN Rash 08/30/21 09/11/21 Paste] bethanechol chloride 25 mg tablet 25 mg PO TID 09/11/21 09/11/21 diazepam 10 mg tablet (Valium) 10 mg PO TID PRN Anxiety 09/11/21 09/11/21 hydroxyzine HCl 50 mg tablet 1 tab PO Q8H PRN Asystole 09/11/21 09/11/21 ibuprofen 800 mg tablet 1 tab PO TID PRN Pain (Scale Score 09/11/21 09/11/21 1-3) methadone 10 mg/mL oral 20 mg PO DAILY 09/11/21 09/11/21 concentrate (Methadose) metoclopramide HCl 10 mg tablet 1 tab PO TID PRN nausea/vomiting 09/11/21 09/11/21 morphine 30 mg immediate release 1 tab PO Q4H PRN Pain (Scale Score 09/11/21 09/11/21 tablet 7-10) pantoprazole 40 mg tablet,delayed 1 tab PO BID@0630,1630 09/11/21 09/11/21 release promethazine 25 mg tablet 25 mg PO Q8H PRN Nausea And 09/11/21 09/11/21 Vomiting tizanidine 4 mg tablet 4 mg PO BID PRN Muscle Spasm 09/11/21 09/11/21 Previous Rx's Medication Instructions Recorded albuterol sulfate 90 mcg/actuation 1 puff inhalation RQ4H PRN asthma 08/30/21 aerosol inhaler (Ventolin HFA) #0 grams aluminum-magnesium hydroxide 200 30 ml PO Q6H PRN Heartburn/Nausea 08/30/21 mg-200 mg/5 mL oral suspension #0 mL (MAG-AL) amitriptyline 50 mg tablet 150 mg PO BEDTIME #0 tabs 08/30/21 ascorbic acid (vitamin C) 250 mg 250 mg PO BID@0800,1700 #0 tabs 08/30/21 tablet calcium carbonate 500 mg calcium 500 mg PO BID #0 tabs 08/30/21 (1,250 mg) tablet (Oyster Shell Calcium 500) docusate sodium 100 mg capsule 100 mg PO DAILY #0 caps 08/30/21 ferrous sulfate 324 mg (65 mg 324 mg PO BIDWM #0 tabs 08/30/21 iron) tablet,delayed release furosemide 20 mg tablet 60 mg PO BID@0900,1800 #0 tabs 08/30/21 ipratropium 0.5 mg-albuterol 3 mg 3 ml inhalation RQ4H WHILE AWAKE 08/30/21 (2.5 mg base)/3 mL nebulization #0 mL soln loratadine 10 mg tablet 10 mg PO DAILY #0 tabs 08/30/21 magnesium hydroxide 400 mg/5 mL 30 ml PO DAILY PRN Constipation #0 08/30/21 oral suspension (Milk of Magnesia) mL clonidine HCl 0.3 mg tablet 0.3 mg PO TID #6 tabs 09/11/21 diazepam 10 mg tablet 10 mg PO TID PRN anxiety #6 tabs 09/11/21 pregabalin 200 mg capsule 200 mg PO BID #10 caps 09/11/21 Allergies Allergy/AdvReac Type Severity Reaction Status Date / Time No Known Allergies Allergy Verified 08/28/21 22:18 Review of Systems Review of Systems: Yes all other systems are reviewed and are negative Constitutional: Constitutional: Reports as per [facility] Past Medical History Attestation statement: The following information was validated with the patient. Medical History Antisocial personality disorder Bipolar 1 disorder Bipolar 1 disorder Chronic venous stasis Chronic venous stasis Fluid overload Opioid use disorder Pneumonia Social History Social History Household Members: Unknown / Unable to assess Housing: Unknown / Unable to assess Unable to assess alcohol history related to: Unknown Alcohol intake: current Alcohol intake frequency: 0-2 drinks per day Patient Tobacco Use Status: Current everyday Tobacco user Second Hand Smoke Exposure: No (pt unresponsive) Substance Use Type: Marijuana Advance Directives: No Advance Directives Information Provided: No Current occupational status: disabled Sexual orientation: Did not discuss. Physical Exam Vital Signs: Vital Signs: Last Vital Signs Temp 98.1 F 10/21/22 16:45 Pulse 98 10/21/22 21:02 Resp 20 10/21/22 21:02 BP 127/99 H 10/21/22 21:02 Pulse Ox 100 10/21/22 21:02 O2 Del Method Room Air 10/21/22 21:02 BMI result Body Mass Index 37.0 Const: Other: Patient arrives in cervical collar. General: cooperative, comfortable and no acute distress Orientation/consciousness: patient oriented x3 Limitations: no limitations HEENT: Other: Tenderness palpation along the bilateral superior orbital bones, no step-off or crepitus. Head: Yes normal to inspection, Yes normocephalic, Yes atraumatic, No Ray's sign, No palpable skull fracture and No raccoon eyes Ears: hearing grossly normal bilaterally and TM's normal bilaterally (No hemotympanum) General nose exam: Normal external nose present Face and sinus: Yes normal facial exam Mouth: Normal oral and palatal mucosa present, oropharynx normal and moist mucous membranes Throat: Yes posterior oropharynx normal Eyes: General: appearance normal, both eyes and all related structures Eyelids: Yes eyelids normal Conjunctivae: conjunctivae normal Sclerae: sclerae normal Pupils: Equal, round and reactive pupils present EOM: EOMs intact bilaterally Neck: Neck: Yes normal visual inspection, Yes full ROM and Yes no lymphadenopathy Lymphatic: no lymphadenopathy noted Chest: Other: No tenderness to palpation along the anterior chest Chest palpation & inspection: normal inspection of the chest Resp: Effort & Inspection: normal respiratory effort and able to speak in complete sentences Auscultation: clear to auscultation bilaterally, no crackles, no rales, no rhonchi and no wheezes Cardio: Rate: regular rate Rhythm: regular rhythm Heart sounds: S1 normal heart sound present and S2 normal heart sound present GI: Other: Patient has tenderness to palpation in the right upper quadrant and left upper quadrant. No rebound or guarding. Normoactive bowel sounds present in all 4 quadrants. No ecchymosis noted Inspection: Yes normal to inspection Back/Spine/Pelvis: Other: Tenderness palpation along the lumbar midline spine. There is a large hematoma noted to the left lower lumbar musculature. Thoracic/Lumbar Spine: thoracic and lumbar spine normal to inspection Skin: General skin exam: no rashes or lesions noted Trauma: no lacerations or abrasions Wounds: no wounds Neuro: General: patient oriented x3 and moves all extremities Cranial nerves: Yes Equal, round and reactive pupils present Extrem: Other: Bilateral chronic venous stasis changes noted. No surrounding erythema or warmth. General: Yes normal to inspection Right upper extremity: normal to inspection Left upper extremity: normal to inspection Right lower extremity: normal to inspection Left lower extremity: normal to inspection Course Reevaluation(s) Reevaluation #1: Bilateral knee x-rays revealing degenerative changes, no acute abnormalities. Sign out was given to my colleague, Lauri Krueger PA-C pending labs, and CT abdomen, chest, facial bones, cervical spine. Patient remains stable. Time: 19:25 Reevaluation #2: CT scan the brain, cervical spine, maxillofacial bones did not show any acute traumatic injury, there is some dental disease which the patient was made aware of. Labs reassuring, still pending CT scan of the chest and abdomen Time: 20:55 Reevaluation #3: CT scan of the chest abdomen did not show any significant traumatic injuries outside of a left gluteal hematoma. Findings discussed with the patient, he is stable for discharge back to his facility Time: 21:34 Medications Administered Discontinued Medications Generic Name Dose Route Start Last Admin Trade Name Freq PRN Reason Stop Dose Admin Iohexol 100 ml 10/21/22 19:58 10/21/22 19:58 Iohexol 350 Mg/Ml 100 Ml Infus..Btl IV 10/21/22 19:59 85 ml ONCE ONE Administration Morphine Sulfate 4 mg 10/21/22 20:53 10/21/22 21:01 Morphine Sulfate 4 Mg/Ml Cartridge IVPUSH 10/21/22 20:54 4 mg ONCE ONE Administration Protocol Ondansetron HCl 4 mg 10/21/22 20:53 10/21/22 21:01 Ondansetron Hcl 4 Mg/2 Ml Vial IVPUSH 10/21/22 20:54 4 mg ONCE ONE Administration Oxycodone HCl 5 mg 10/21/22 18:12 10/21/22 19:00 Oxycodone Hcl Immed Release 5 Mg Tablet PO 10/21/22 18:13 5 mg ONCE ONE Administration Medical Decision Making Medical Decision Making MDM Narrative: 42-year-old male, with a past medical history of bipolar disease, PTSD, opioid abuse on methadone, chronic venous stasis, presenting to the emergency department via EMS from [facility], for evaluation of headache, neck pain, abdominal pain, back pain and bilateral knee pain status post mechanical fall which occurred yesterday. On arrival, patient in cervical collar. Mildly hypertensive at 150/84. Patient is fully neurologically intact, and given fall was greater than 24 hours ICH less likely but is on the differential. Will obtain head CT for rule out. Patient has large hematoma on the left lower spine concerning for retroperitoneal bleeding vs fracture, versus hematoma. Patient has taken 3 doses of Tylenol prior to his arrival, will medicate for pain with oxycodone. Plan: Basic labs, bilateral knee x-rays, CT head, cervical spine, facial bones, chest, and CT abdomen obtained Differential Diagnosis Differential Diagnoses: The differential diagnosis associated with the presentation includes Lumbar contusion, spinal fracture, contusion Lab Data 10/21/22 19:12 10/21/22 19:12 Labs: Lab Results 10/21/22 10/21/22 10/21/22 Range/Units 19:12 19:12 19:12 WBC 5.1 (4.8-10.8) X10*3/uL RBC 4.32 L (4.60-5.80) X10*6/uL Hgb 11.3 L (14.0-18.0) g/dl Hct 35.2 L (42.0-52.0) % MCV 81.5 (80.0-98.0) fL MCH 26.2 L (27.0-33.0) pg MCHC 32.1 (31.0-36.0) g/dl RDW 15.5 (11.0-16.0) % Plt Count 231 D (160-400) X10*3/uL MPV 8.5 L (9.4-12.4) fL Immature Gran % (Auto) 0.4 (0.0-0.4) % Neut % (Auto) 64.9 (45-73) % Lymph % (Auto) 25.4 (20-40) % [place] % (Auto) 6.7 (2-11) % Eos % (Auto) 2.0 (0-4) % Baso % (Auto) 0.6 (0-2) % Lymph # (Auto) 1.3 (1.2-4.9) X10*3/uL [place] # (Auto) 0.3 (0.1-1.2) X10*3/uL Eos # (Auto) 0.1 (0.0-0.4) X10*3/uL Baso # (Auto) 0.0 (0.0-0.2) X10*3/uL Abs Immat Gran (auto) 0.02 (0.00-0.03) X10*3/uL Absolute Neuts (auto) 3.3 (2.0-8.3) x10*3/uL Absolute Nucleated RBC 0.000 (0.0-0.012) X10*3/uL Nucleated RBC % (auto) 0.0 (0.0-0.2) /100WBC PT 13.6 H (11.1-13.3) SEC INR 1.1 (0.9-1.1) APTT 44.2 H (26.0-36.4) SEC Sodium 139 (135-145) mmol/L Potassium 4.1 (3.3-5.1) mmol/L Chloride 104 (96-108) mmol/L Carbon Dioxide 25 (22-29) mmol/L Anion Gap 14 (12-20) BUN 13 (9-16) mg/dL Creatinine 0.79 (0.5-1.4) mg/dL Estim Creat Clear Calc 168.9 Estimated GFR > 60 Random Glucose 90 (60-115) mg/dL Calcium 9.7 D (8.4-10.2) mg/dL Total Bilirubin 0.5 (0.0-1.0) mg/dL Direct Bilirubin 0.2 (0.0-0.5) mg/dL AST 35 (5-37) U/L ALT 22 (0-40) U/L Alkaline Phosphatase 97 (39-117) U/L Total Protein 7.8 (6.5-8.0) g/dL Albumin 3.9 (3.5-5.0) g/dL Discharge Plan Discharge Clinical Impression: Hematoma and contusion Patient Disposition: Xfer Psychiatric Hosp Instructions: Hematoma (ED) Additional Instructions: Your workup in the emergency department today was reassuring. Your CT scan did not show any evidence of traumatic injury You do have a hematoma to the left gluteal region. There was incidental finding of swollen lymph nodes to your pelvis and retroperitoneal area This may be reactive but you need to follow-up with your primary doctor to make sure they resolve Use Tylenol as needed for your pain Prescriptions: No Action Zinc Oxide (Triple Paste) [Triple Paste] 1 appl topical 8XD PRN (Reason: Rash) clonidine HCl 0.3 mg tablet 0.3 mg PO TID Qty: 6 0RF pregabalin 200 mg capsule 200 mg PO BID Qty: 10 0RF diazepam 10 mg tablet 10 mg PO TID PRN (Reason: anxiety) Qty: 6 0RF ibuprofen 800 mg tablet 1 tab PO TID PRN (Reason: Pain (Scale Score 1-3)) tizanidine 4 mg Tablet 4 mg PO BID PRN (Reason: Muscle Spasm) hydroxyzine HCl 50 mg tablet 1 tab PO Q8H PRN (Reason: Asystole) morphine 30 mg tablet 1 tab PO Q4H PRN (Reason: Pain (Scale Score 7-10)) pantoprazole 40 mg tablet,delayed release (DR/EC) 1 tab PO BID@0630,1630 bethanechol chloride 25 mg tablet 25 mg PO TID promethazine 25 mg tablet 25 mg PO Q8H PRN (Reason: Nausea And Vomiting) diazepam [Valium] 10 mg tablet 10 mg PO TID PRN (Reason: Anxiety) methadone [Methadose] 10 mg/mL concentrate 20 mg PO DAILY Rx Instructions: Partial Fill upon patient request. metoclopramide HCl 10 mg tablet 1 tab PO TID PRN (Reason: nausea/vomiting) montelukast [Singulair] 10 mg Tablet 10 mg PO BEDTIME buspirone 30 mg Tablet 30 mg PO BID divalproex [Depakote ER] 500 mg Tablet Extended Release 24 Hr 2,500 mg PO BEDTIME ondansetron 4 mg Tablet,Disintegrating 4 mg PO BID PRN (Reason: Nausea) aripiprazole [Abilify] 30 mg Tablet 30 mg PO BEDTIME pregabalin [Lyrica] 200 mg Capsule 200 mg PO BID albuterol sulfate [Ventolin HFA] 90 mcg/actuation Hfa Aerosol Inhaler 1 puff inhalation RQ4H PRN (Reason: asthma) Qty: 0 0RF loratadine 10 mg Tablet 10 mg PO DAILY Qty: 0 0RF ipratropium-albuterol 0.5 mg-3 mg(2.5 mg base)/3 mL Solution For Nebulization 3 ml inhalation RQ4H WHILE AWAKE Qty: 0 0RF amitriptyline 50 mg Tablet 150 mg PO BEDTIME Qty: 0 0RF ferrous sulfate 324 mg (65 mg iron) Tablet,Delayed Release (Dr/Ec) 324 mg PO BIDWM Qty: 0 0RF magnesium hydroxide [Milk of Magnesia] 400 mg/5 mL Suspension 30 ml PO DAILY PRN (Reason: Constipation) Qty: 0 0RF calcium carbonate [Oyster Shell Calcium 500] 500 mg calcium (1,250 mg) Tablet 500 mg PO BID Qty: 0 0RF docusate sodium 100 mg Capsule 100 mg PO DAILY Qty: 0 0RF furosemide 20 mg Tablet 60 mg PO BID@0900,1800 Qty: 0 0RF Protocol: Hold for SBP< HOLD for SBP < : 90 MAG-AL 200-200 mg/5 mL Suspension 30 ml PO Q6H PRN (Reason: Heartburn/Nausea) Qty: 0 0RF ascorbic acid (vitamin C) 250 mg Tablet 250 mg PO BID@0800,1700 Qty: 0 0RF
[2022-10-21] MEDS: oxyCODONE HCl Immed Release 5 MG TABLET PO (19:00)
[2022-10-21 19:16] LABS: MANUAL DIFF FLAG NO
[2022-10-21 19:18] LABS: Basophils Percent Auto 0.6 % (0-2); Eosinophils Absolute Auto 0.1 X10*3/uL (0.0-0.4); Hematocrit 35.2 % (42.0-52.0); Hemoglobin 11.3 g/dl (14.0-18.0); Imm Gran Abs Auto 0.02 X10*3/uL (0.00-0.03); Imm Gran Pct Auto 0.4 % (0.0-0.4); Lymphocytes Absolute Auto 1.3 X10*3/uL (1.2-4.9); Lymphocytes Percent Auto 25.4 % (20-40); Mean Corpuscular HGB Conc 32.1 g/dl (31.0-36.0); Mean Corpuscular Hemoglobin 26.2 pg (27.0-33.0); Mean Corpuscular Volume 81.5 fL (80.0-98.0); Mean Platelet Volume 8.5 fL (9.4-12.4); Monocytes Absolute Auto 0.3 X10*3/uL (0.1-1.2); Monocytes Percent Auto 6.7 % (2-11); Neutrophils Absolute Auto 3.3 x10*3/uL (2.0-8.3); Neutrophils Percent Auto 64.9 % (45-73); Platelet Count 231 X10*3/uL (160-400); Red Blood Count 4.32 X10*6/uL (4.60-5.80); Red Cell Distribution Width 15.5 % (11.0-16.0); White Blood Count 5.1 X10*3/uL (4.8-10.8)
[2022-10-21 19:29] LABS: INTERNATIONAL NORM RATIO 1.1 (0.9-1.1); Prothrombin Time 13.6 SEC (11.1-13.3)
[2022-10-21 19:32] LABS: Partial Thromboplastin Time 44.2 SEC (26.0-36.4)
[2022-10-21 19:36] LABS: Alanine Aminotransferase 22 U/L (0-40); Albumin Level 3.9 g/dL (3.5-5.0); Alkaline Phosphatase 97 U/L (39-117); Anion Gap 14 (12-20); Aspartate Amino Transferase 35 U/L (5-37); Bilirubin Direct 0.2 mg/dL (0.0-0.5); Bilirubin Total 0.5 mg/dL (0.0-1.0); Blood Urea Nitrogen 13 mg/dL (9-16); Calcium 9.7 mg/dL (8.4-10.2); Carbon Dioxide 25 mmol/L (22-29); Chloride 104 mmol/L (96-108); Creatinine Clr Calc Pharmacy 168.9; Estimated Glomerular Filt Rate > 60; Glucose Random 90 mg/dL (60-115); Potassium 4.1 mmol/L (3.3-5.1); Sodium 139 mmol/L (135-145); Total Protein 7.8 g/dL (6.5-8.0)
[2022-10-21] MEDS: iohexoL 350 MG/ML 100 ML INFUS..BTL IV (19:58)
[2022-10-21] MEDS: ondansetron HCL 4 MG/2 ML VIAL IVPUSH (21:01)
[2022-10-21] MEDS: Morphine Sulfate 4 MG/ML CARTRIDGE IVPUSH (21:01)
[2022-10-21 21:02] VITALS: BP 127/99; PULSE 98; RESP 20; O2SAT 100
[2022-10-21] MEDS: Acetaminophen 325 MG TABLET 650 MG PO (22:01)
== END 2022-10-21 22:34 ==
PROVIDERS: Physician Assistant Medical; Emergency Provider Emergency Medicine
DX: S30.0XXA Contusion of lower back and pelvis, initial encounter (principal); M25.561 Pain in right knee; M54.50 Low back pain, unspecified; I87.8 Other specified disorders of veins; R10.2 Pelvic and perineal pain; R51.9 Headache, unspecified; W10.9XXA Fall (on) (from) unspecified stairs and steps, initial encounter; Y93.9 Activity, unspecified; Y92.9 Unspecified place or not applicable; Y99.9 Unspecified external cause status; F17.200 Nicotine dependence, unspecified, uncomplicated; Z71.6 Tobacco abuse counseling; F17.210 Nicotine dependence, cigarettes, uncomplicated; Z79.899 Other long term (current) drug therapy
CPT/HCPCS: 36415; 70450; 70486; 71260; 72125; 73562; 74177; 80048; 80076; 85025; 85610; 85730; 99285; J2270; J2405; Q9967

== ENCOUNTER 2023-05-04 09:23 | Emergency (ER) | payer MEDICARE, MEDICAID, SELFPAY ==
[2023-05-04 09:29] VITALS: BP 138/78; PULSE 91; O2SAT 99
[2023-05-04 09:44] VITALS: BP 125/79; PULSE 89; RESP 18; TEMP 36.6; O2SAT 98; BMI 39.3
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
--- OUTSIDE RECORDS SUMMARY | 2023-05-04 10:45 | XMS_ITS | Continuity of Care Document ---
Author Name Unknown Organization [facility] Address [address] [place] [address]- Care Team Providers Care Cable Tester Name Role Phone Marvin Mac MD Primary Care Physician Encounter [facility] Date(s): 11/16/22 - 11/17/[address] [address]- Discharge Disposition: A-D/C Home Attending Physician: Lizett George MD Admitting Physician: Lizett George MD Referring Physician: Not on Staff, Referring MD Allergies, Adverse Reactions, Alerts Substance Reaction Severity Status Zoloft Active Remeron Active traZODone Active ZyPREXA Active Immunizations Given and Recorded Vaccine Date Status Refusal Reason tetanus/diphtheria/pertussis, acel(Tdap) 04/09/22 Recorded tetanus/diphtheria/pertussis, acel(Tdap) 05/18/18 Recorded tetanus/diphtheria/pertussis, acel(Tdap) 12/19/16 Recorded [id number] 12y+ bivalent booster vax 02/11/22 Recorded SARS-CoV-2 [...] tablet, By Mouth, Every 6 hours, PRN, Do not drive or drink alcohol while taking. Contains acetaminophen., # 10 tablet, Refills 0, Tot. Refills 0, Acute, for pain, 11/22/22 1:00:00 EDT, 11/17/22 1:39:00 EDT, [facility] Start Date: 11/17/22 Stop Date: 11/22/22 Status: Ordered ARIPiprazole 15 mg oral tablet 30 mg, By Mouth, Daily, # 14 tablet, Refills 0, Tot. Refills 0, Maintenance, 09/29/22 15:25:00 EDT,Route to Pharmacy Electronically, [id number], Partial fill upon patient request ifthe prescription is for a schedule II opioid drug.,... Start Date: 09/29/22 Stop Date: 10/13/22 Status: Ordered buprenorphine-naloxone 8 mg-2 mg sublingual film 2 film, Sublingual, Daily, # 14 film, 1 Refills, Maintenance, 09/29/22 15:26:00 EDT, Film, [id number], Partial fill upon patient request if the [...] 1 Refills, Maintenance, 09/29/22 15:25:00 EDT, Tablet, [facility][id number], Partial fill upon patient request i... Start Date: 09/29/22 Status: Ordered cloNIDine 0.1 mg oral tablet 0.2 mg, By Mouth, 2 times a day, # 21 tablet, Refills 1, Tot. Refills 1, Maintenance, 09/29/22 15:26:00 EDT, Route to Pharmacy Electronically, [facility][id number], Partial fill upon patient request if the prescription is for a schedule II opio... Start Date: 09/29/22 Stop Date: 10/13/22 Status: Ordered diclofenac sodium 75 mg oral delayed release tablet 1 tablet = 75 mg, By Mouth, 2 times a day, PRN Pain , Moderate, # 60 tablet, 0 Refills, Maintenance, 11/13/22 16:31:00 EDT, EC Tablet, [id number], Partial fill upon patient request if the prescription is for a schedule II opioid drug.... Start Date: 11/13/22 Status: Ordered docusate sodium 100 mg oral capsule 100 mg, 1, capsule, By Mouth, 2 times a day, TAKE ONE CAPSULE BY MOUTH TWO TIMES DAILY, # 60 capsule, Refills 0, Tot. Refills 0, Maintenance, 08/05/22 8:29:00 EDT, Route to Pharmacy Electronically, [facility], Partial fill upon patient r... Start Date: 08/05/22 Status: Ordered escitalopram 20 mg oral tablet 1 tablet = 20 mg, By Mouth, Daily, # 14 tablet, 0 Refills, Maintenance, 09/29/22 15:28:00 EDT, Tablet, [facility][id number], Partial fill upon patient request if the prescription is for a schedule II opioid drug., 182.88, cm, 09/29/22 14:33:00... Start Date: 09/29/22 Stop Date: 10/13/22 Status: Ordered furosemide 80 mg oral tablet 80 mg, 1, tablet, By Mouth, Daily, TAKE ONE TABLET BY MOUTH DAILY, # 14 tablet, Refills 1, Tot. Refills 1, Maintenance, 08/05/22 8:30:00 EDT, Route to Pharmacy Electronically, [facility], Partial fill upon patient request if the prescrip... Start Date: 08/05/22 Stop Date: 09/02/22 Status: Ordered Ketorolac Inj 30 mg, Injection, Intramuscular, Once, PRN for Other, Pain >2/10, STAT, 11/16/22 23:21:00 EDT Start Date: 11/16/22 Stop Date: 11/16/22 Status: Completed levothyroxine 0.05 mg oral tablet 1 tablet = 50 mcg, By Mouth, Daily, TAKE ONE TABLET BY MOUTH DAILY, # 14 tablet, 1 Refills, Maintenance, 08/05/22 8:30:00 EDT, Tablet, [facility], Partial fill upon patient request if the prescription is for a schedule II opioid drug., 1... Start Date: 08/05/22 Stop Date: 09/02/22 Status: Ordered pregabalin 50 mg oral capsule = 200 mg, By Mouth, 2 times a day, # 40 capsule, 1 Refills, Maintenance, 11/12/22 15:56:00 EDT, Capsule, [facility][id number], Partial fill upon patient request if the prescription is for a schedule II opioid drug., 185, cm, 11/07/22 16:28:00 E... Start Date: 11/12/22 Stop Date: 12/02/22 Status: Ordered Protonix 20 mg oral delayed release tablet 1 tablet = 20 mg, By Mouth, Daily, # 90 tablet, 0 Refills, Maintenance, 11/12/22 15:56:00 EDT, EC Tablet, 185, cm, 11/07/22 16:28:00 EDT, Height, 133.7, kg, 11/07/22 16:28:00 EDT, Dry Weight Start Date: 11/12/22 Status: Ordered tiZANidine 4 mg oral tablet 1, tablet, By Mouth, 3 times a day, # 15 tablet, Refills 0, Maintenance, 11/10/22 9:05:00 EDT, Route to Pharmacy Electronically, [facility][id number], 185, cm, 11/07/22 16:28:00 EDT, Height, 133.7, kg, 11/07/22 16:28:00 EDT, Dry Weight Start Date: 11/10/22 Stop Date: 11/15/22 Status: Ordered Problem List Condition Confirmation Course [...] Normocytic normochromic anemia 1 Confirmed 04/28/18 Active Obese class I Confirmed Active Opioid dependence 2 Confirmed 04/28/18 Active Pain of knee region 3 Confirmed 03/03/17 Active Polysubstance dependence 4 Confirmed 03/20/18 Active Retention of urine Confirmed 01/25/21 Active Schizoaffective disorder, bipolar type 5 Confirmed 03/03/18 Active Umbilical hernia Confirmed 01/30/12 Active 1Outside [...] to CAB a few times 04/28/2018: started [facility] bup/nal program Last Assessment & Plan: On suboxone 8-2mg bid. Per pt would like to change to methadone. Reports had been getting approx 4 mos ago. States still having cravings with suboxone- but denies any recent use. 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 5Outside Source Comment: Last Assessment & Plan: Recent inpt psych hospitalization in [facility]. Denies any SI/HI at this time but very anxious about medications. DW pt no dose adjustments at this time and will need to connect with psych at [facility]- no current psych provider. Pt contracts for safety. Pt did come with rx avail- but sh ort on lorazepam. Will fill at this time but ensure has prescriber on d/c. met with pt todayand psych referral placed. Administration aware. Results Radiology Reports * Exam Date Time Procedure Performing Provider Status 11/16/22 11:[address] Cervical Spine W/O Contrast Staci Franklin; Cass (Verified) Notes: (CT Cervical Spine W/O Contrast) Reason For Exam: Fall, injury;Trauma RESULT: CT Cervical Spine W/O Contrast CT Head/Brain W/O Contrast, CT Cervical Spine W/O Contrast INDICATION: Hx of Present Illness: Trip and fall, struck left forehead on dresser. No LOC, ambulatory down street following fall to meet EM. Pt complaining of head, neck, left knee and ankle pain. Ptrefused C-collar.; Reason: Trauma; Fall, injury; Clinical Question(s): Other: TECHNIQUE: Noncontrast head CT using axial technique was reconstructed in axial and coronal planes.Noncontrast spiral CT through the cervical spine was formatted in 3 planes. Automatic tube modulation was used for the cervical spine and iterative dose reconstruction was used for both the head and cervical spine to optimize scan parameters and image quality. CTDIvol Body: 13.31 mGy, DLP Body: 297 mGy*cm. CTDIvol Head: 49.33 mGy, DLP Head: 793 mGy*cm. COMPARISON: None. FINDINGS: Presentation Designer View Findings, Lines and Tubes: None. BRAIN AND EXTRA-AXIAL SPACES: No parenchymal hemorrhage, midline shift, or mass effect. Fernando-white matter differentiation is wellpreserved. No acute infarct. Ventricles, sulci, and basilar cisterns are normal. No white matter lesions. No subarachnoid hemorrhage. No subdural or epidural collection. CALVARIUM, SKULL BASE, AND SOFT TISSUES: No fractures or suspicious bony lesions. The paranasal sinuses and mastoid air cells are clear. Visualized orbits and globes are intact. The extracranial soft tissues are unremarkable. CERVICAL SPINE: No fracture. No acute osseous abnormalities. Normal alignment. No locked or perched facet. Intervertebral disc spaces and vertebral body heightsare preserved. OTHER BONES: No acute abnormality. CERVICAL SOFT TISSUES AND LUNG APICES: Normal soft tissues. Visualized lung apices are clear. IMPRESSION: No acute abnormality of the head or cervical spine. WSN: [id number] Ordering Physician: Lizett George Dictated By: Gonzales Dudley MD Dictated Date/Time: 11/17/22 8:13 am Reviewed By: Gonzales Dudley MD Signed By: Gonzales Dudley MD Signed Date/Time: 11/17/22 8:13 am Transcribed By: RAVINDER Transcribed Date/Time: 11/17/22 7:57 am * Exam Date Time Procedure Performing Provider Status 11/16/22 11:[address] Head/Brain W/O Contrast Staci Ray; Auth (Verified) Notes: (CT Head/Brain W/O Contrast) Reason For Exam: Fall, injury;Trauma RESULT: CT Head/Brain W/O Contrast CT Head/Brain W/O Contrast, CT Cervical Spine W/O Contrast INDICATION: Hx of Present Illness: Trip and fall, struck left forehead on dresser. No LOC, ambulatory down street following fall to meet EM. Pt complaining of head, neck, left knee and ankle pain. Ptrefused C-collar.; Reason: Trauma; Fall, injury; Clinical Question(s): Other: TECHNIQUE: Noncontrast head CT using axial technique was reconstructed in axial and coronal planes.Noncontrast spiral CT through the cervical spine was formatted in 3 planes. Automatic tube modulation was used for the cervical spine and iterative dose reconstruction was used for both the head and cervical spine to optimize scan parameters and image quality. CTDIvol Body: 13.31 mGy, DLP Body: 297 mGy*cm. CTDIvol Head: 49.33 mGy, DLP Head: 793 mGy*cm. COMPARISON: None. FINDINGS: Presentation Designer View Findings, Lines and Tubes: None. BRAIN AND EXTRA-AXIAL SPACES: No parenchymal hemorrhage, midline shift, or mass effect. Fernando-white matter differentiation is wellpreserved. No acute infarct. Ventricles, sulci, and basilar cisterns are normal. No white matter lesions. No subarachnoid hemorrhage. No subdural or epidural collection. CALVARIUM, SKULL BASE, AND SOFT TISSUES: No fractures or suspicious bony lesions. The paranasal sinuses and mastoid air cells are clear. Visualized orbits and globes are intact. The extracranial soft tissues are unremarkable. CERVICAL SPINE: No fracture. No acute osseous abnormalities. Normal alignment. No locked or perched facet. Intervertebral disc spaces and vertebral body heightsare preserved. OTHER BONES: No acute abnormality. CERVICAL SOFT TISSUES AND LUNG APICES: Normal soft tissues. Visualized lung apices are clear. IMPRESSION: No acute abnormality of the head or cervical spine. WSN: [id number] Ordering Physician: Lizett George Dictated By: Gonzales Dudley MD Dictated Date/Time: 11/17/22 8:13 am Reviewed By: Gonzales Dudley MD Signed By: Gonzales Dudley MD Signed Date/Time: 11/17/22 8:13 am Transcribed By: RAVINDER Transcribed Date/Time: 11/17/22 7:57 am * Exam Date Time Procedure Performing Provider Status 11/16/22 11:53 PM Ankle Min 3 Views Right Grodzicka , Be yesi; Auth (Verified) Notes: (Ankle Min 3 Views Right) Reason For Exam: Fall, injury;Trauma RESULT: Ankle Min 3 Views Right Ankle Min 3 Views Right CLINICAL INDICATION: Hx of Present Illness: Trip and fall, struck left forehead on dresser. No LOC,ambulatory down street following fall to meet EM. Pt complaining of head, neck, left knee and anklepain. Pt refused C-collar.; Reason: Trauma; Fall, injury; Clinical Question(s): Other: COMPARISONS: 05/02/2022 TECHNIQUE: AP, lateral and stress views of the right ankle were obtained. FINDINGS: Diffuse soft tissue swelling throughout the lower calf and ankle. Status post remote distal fibular ORIF. No hardware failure or loosening. There is no fracture or dislocation. The ankle mortise is not widened. No retained foreign body is identified. Hindfoot midfoot alignment is normal. IMPRESSION: No acute fracture or dislocation. Soft tissue swelling. Old healed distal fibular fracture. WSN: [id number] Ordering Physician: Lizett George Dictated By: Darryl Hensley MD Dictated Date/Time: 11/17/22 0:01 am Reviewed By: Darryl Hensley MD Signed By: Darryl Hensley MD Signed Date/Time: 11/17/22 0:01 am Transcribed By: RAVINDER Transcribed Date/Time: 11/17/22 0:01 am * Exam Date Time Procedure Performing Provider Status 11/16/22 11:53 PM Knee 3 Views Right Grodzicka , Staci; Auth (Verified) Notes: (Knee 3 Views Right) Reason For Exam: Fall, injury;Trauma RESULT: Knee 3 Views Right Knee 3 Views Right CLINICAL INDICATION: Hx of Present Illness: Trip and fall, struck left forehead on dresser. No LOC,ambulatory down street following fall to meet EM. Pt complaining of head, neck, left knee and anklepain. Pt refused C-collar.; Reason: Trauma; Fall, injury; Clinical Question(s): Other: COMPARISONS: 09/11/2022 TECHNIQUE: 3 views of the right knee were obtained. FINDINGS: Moderate to severe medial femoral-tibial joint space narrowing with near [id number] joint space narrowing not significantly changed from earlier this year. Lateral joint line osteophyte formation. A large suprapatellar joint effusion slightly improved from earlier this year. No fracture or dislocation. The patella is normally positioned. IMPRESSION: No acute fracture or dislocation. Large suprapatellar joint effusion slightly smaller compared to August 2022. Moderate to severe tricompartmental osteoarthritis. WSN: [id number] Ordering Physician: Lizett George Dictated By: Darryl Hensley MD Dictated Date/Time: 11/17/22 0:00 am Reviewed By: Darryl Hensley MD Signed By: Darryl Hensley MD Signed Date/Time: 11/17/22 0:00 am Transcribed By: RAVINDER Transcribed Date/Time: 11/16/22 11:58 pm Vital Signs Most recent to oldest [Reference Range]: 1 2 3 Height 186 cm (11/17/22 1:46 AM) 186 cm (11/16/22 10:09 PM) Weight 118 kg (11/17/22 1:46 AM) 118 kg (11/16/22 10:09 PM) Oxygen Saturation [94-100 %] 100 % (11/17/22 1:46 AM) 96 % (11/16/22 10:09 PM) Pulse Rate [55-90 bpm] 83 bpm (11/17/22 1:46 AM) 95 bpm *H* (11/16/22 10:09 PM) Body Mass Index [18.5-24.99 kg/m2] 34.11 kg/m2 *>HHI* (11/17/22 1:46 AM) Blood Pressure [90-138/55-84 mm Hg] 116/78mm Hg (9/5/23 1:46 AM) 115/62mm Hg (11/16/22 10:09 PM) Respiratory Rate [16-30 br/min] 16 br/min (11/17/22 1:46 AM) 16 br/min (11/17/22 12:25 AM) 16 br/min (11/16/22 10:09 PM) Temperature [96.8-100.4 DegF] 98 DegF (11/17/22 1:46 AM) 98 DegF (11/16/22 10:09 PM) Mode of Delivery (Oxygen) Room air (11/17/22 1:46 AM) Room air (11/16/22 10:09 PM) Blood pressure sites Arm, left (11/17/22 1:46 AM) Arm, left (11/16/22 10:09 PM) Temperature Route Temporal (11/17/22 1:46 AM) Oral (11/16/22 10:09 PM) Dry Weight 118 kg (11/17/22 1:46 AM) 118 kg (11/16/22 10:09 PM) Weight Obtained Via Patient/family state d (11/16/22 10:09 PM) Social History Social History Type Response [...] Code MRI Safety Implantable Status 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 [id number] Unknown [id number] Unknown 03/11/21 Unknown Unknown Active GS1 Note * Doris HENDERSON, Lizett Quispe: PERFORM Event Display: Patient Education Leaflets Authored Date: [id number] Ankle Sprain (Adult) ?? [id number] Ankle Sprain (Adult) An ankle sprain is a stretching or tearing of the ligaments that hold the ankle joint together. There are no broken bones. An ankle sprain is a common injury for both children and adults. It happens when the ankle turns, twists, or rolls in an awkward way. This can be caused by a sports injury. Or it can happen from doing something as simple as stepping on an uneven surface. Ligaments are made of tough connective tissue. Normally, ligaments stretch a certain amount and then go back to their normal place. A sprain happens when a ligament is forced to stretch more than thenormal amount. A severe sprain can actually tear the ligaments. If you have a severe sprain, you may have felt or heard something like a pop when you were injured. Ankle sprains are given a grade depending on whether they are mild, moderate, or severe: ??? Grade 1 sprain. A mild sprain with minor stretching and damage to the ligament. ??? Grade 2 sprain. A moderate sprain where the ligament is partly torn. ??? Grade 3 sprain. The most severe kind of sprain. The ligament is completely torn. Most sprains??take about 4 to 6 weeks to heal. A severe sprain can take several months to recover. Your healthcare provider may order X-rays to be sure you don???t have a fracture, or broken bone. The injured area will feel sore. Swelling and pain may make it hard to walk. You may need crutches if walking is painful. Or your provider may have you use a cast boot or air splint. This will dependon the grade of ankle sprain that you have. Home care ??? For a Grade 1 sprain, use RICE (rest, ice, compression, and elevation): ??? Rest your ankle. Don???t walk on it. ??? Ice should be used right away to help control swelling. Place an ice pack overthe injured area for 20 minutes. Do this every??3 to 6??hours??for the first??24 to 48 hours.??Keepusing ice packs to ease pain and swelling as needed. To make an ice pack, put ice cubes in a plastic??bag that seals at the top. Wrap the bag in a??clean, thin??towel or cloth. Never put ice or an ice pack directly on the skin. The ice pack can be put right on the cast, bandage, or splint. As the ice melts, be careful that the cast, bandage, or splint doesn???t get wet. If you have a boot, open it to apply an ice pack, unless told otherwise by your provider. ??? Compression devices help to control swelling. They also keep the ankle from moving and support your injured ankle. These devices include dressings, elastic bandages, and wraps. ??? Elevate or raise your ankle above the level of yourheart when sitting or lying down. This is very important for the first 48 hours. ??? Follow the RICE guidelines for a Grade 2 sprain. This type of sprain will take longer to heal. Your provider may have you wear a splint, cast, or brace to keep your ankle from moving. ?If you have a Grade 3 sprain, you are at risk for long-term ankle instability. In rare cases, surgery may be needed. Your provider may have you wear a short leg cast or a walking boot for 2 to 3 weeks. ??? After 48 hours, it may be helpful to apply heat??for 20 minutes several times a day. You can do this with a heating pad or warm compress. Or you may want to go back and forth between using ice and heat. Never apply heat directly to the skin. Always wrap the heating pad or warm compress in a clean, thin towel or cloth. ??? You may use??rimy-pyr-ehhmlex pain medicine??(NSAIDS or nonsteroidal anti-inflammatory drugs) to control pain, unless another pain medicine was prescribed. Talk with your provider before using these medicines if you have chronic liver or kidney disease, stomach ulcer or gastrointestinal bleeding, or if you take a blood thinner. ??? Follow any rehabilitation exercises your provider gives you.These can help you be more flexible and improve your balance and coordination. This is helpful in preventing long-term ankle problems. Prevention To help prevent ankle sprains, it???s important to have good strength, balance, and flexibility. Besure to: ??? Always warm up before you exercise or do something very active ??? Be careful when walking or running on uneven or cracked surfaces ??? Wear shoes that are in good condition and fit well??? Listen to your body???s signals to slow down when you are in pain or tired ?? Follow-up care Any X-rays you had today don???t show any broken bones, breaks, or fractures. Sometimes fractures don???t show up on the first X-ray. Bruises and sprains can sometimes hurt as much as a fracture. These injuries can take time to heal completely. If your symptoms don???t get better or they get worse,talk with your healthcare provider. You may need a repeat X-ray. Follow up with your healthcare provider, or as advised. Check for any warning signs listed below. ?? When to get medical advice Call your healthcare provider right away??if any of these occur: ??? Fever of 100.4 F (38 C) or higher, or as directed by your provider ??? Chills ??? The injury doesn???t seem to be healing ??? The swelling comes back ??? The cast or splint has a bad smell ??? The plaster cast or splint gets wet or soft ??? The fiberglass cast or splint gets wet and doesn't dry for 24 hours ??? Pain or swelling gets worse, or redness appears ??? Your toes become cold, blue, numb, or tingly ??? The skin is discolored (looks blue, purple, or fernando), has blisters, or is irritated ??? You re-injure your ankle ?? Last Reviewed Date: 2021 ?? [id number] [employer]. All rights reserved. This information is not intended as a substitute for professional medical care. Always follow your healthcare professional's instructions. ?? * Doris HENDERSON, Lizett Quispe: PERFORM Event Display: Patient Education Leaflets Authored Date: [id number] Neck Sprain or Strain ?? [id number] Neck Sprain or Strain A sudden force that causes turning or bending of the neck can cause a sprain or strain. An example would be the force from a car accident. This can stretch or tear muscles called a strain. It can also stretch or tear ligaments called a sprain. Either of these can cause neck pain. Sometimes neck pain occurs after a simple awkward movement. In either case, muscle spasm is commonly present and contributes to the pain.?? Unless you had a forceful physical injury (for instance, a car accident or fall), X-rays are often not ordered for the initial evaluation of neck pain. If pain continues and doesn't respond to medical treatment, X-rays and other tests may be done later. Home care ??? You may feel more soreness and spasm the first few days after the injury. Rest until symptoms start to improve. ??? When lying down, use a comfortable pillow or a rolled towel that supports the head and keeps the spine in a neutral position. The position of the head should not be tilted forward or backward. ??? Apply an ice pack over the injured area for 15 to 20 minutes every 3 to 6 hours. Do this for the first 24 to 48 hours. To make an ice pack, put ice cubes in a plastic bag that seals at the top. Wrap the bag in a thin towel or cloth before using it. Don???t put ice or an ice pack directly on the skin. After 48 hours, apply heat (warm shower or warm bath) for 15 to 20 minutes several times a day. Or alternate ice and heat. ??? You may use plwy-hev-sptaxbq pain medicine to control pain, unless another pain medicine was prescribed. Non- steroidal anti-inflammatory drugs (NSAIDs) like ibuprofen or naproxen may work better than acetaminophen. If you have chronic liver orkidney disease, ever had a stomach ulcer or gastrointestinal bleeding, or take blood thinners, talkwith your healthcare provider before using these medicines. ??? If a soft cervical collar was prescribed, only wear it for periods of increased pain. It should not be worn for more than 3 hours a day, or for longer than 1 to 2 weeks. ?? Follow-up care Follow up with your healthcare provider, or as directed. Physical therapy may be needed. Sometimes fractures don???t show up on the first X-ray. Bruises and sprains can sometimes hurt as much as a fracture. These injuries can take time to heal completely. If your symptoms don???t improveor they get worse, talk with your provider. You may need a repeat X-ray or other tests. If X-rays were taken, you will be told of any new findings that may affect your care. ?? Call 911 Call 911 if you have: ??? Neck swelling, difficulty or painful swallowing ??? Trouble breathing ???Chest pain ?? When to get medical advice Call your healthcare provider right away if any of these occur: ??? Pain gets worse or spreads intoyour arms or legs ??? Weakness or numbness in 1 or both arms or legs ?? Last Reviewed Date: 2021 ?? [employer]. All rights reserved. This information is not intended as a substitute for professional medical care. Always follow your healthcare professional's instructions. ?? * Doris HENDERSON, Lizett Quispe: PERFORM Event Display: Patient Education Leaflets Authored Date: [id number] After a Fall ?? [id number] After a Fall You have had a fall today. That means that you slipped, tripped, or lost your balance. If your fallwas because of fainting or a seizure,??you might need other??tests. It is normal to feel sore and tight in your muscles and back the next day, and not just the musclesyou injured. Remember, all the parts of your body are connected, so while one area hurts now, the next day another may hurt. Also, when you injure yourself, it causes inflammation. This then causes the muscles to tighten up and hurt more. After the initial worsening symptoms, they should slowly improve over the next few days. Tell your healthcare provider if you have more severe pain. Even without a definite head injury, you can still get a concussion from your head suddenly jerkingforward, backward, or sideways when you fall. This is especially true if you have had concussions in the past. Concussions and even bleeding can still happen, especially if you had a recent injury ortake blood thinner medicine. It is not unusual to have a mild headache and feel tired and even nauseous or dizzy.?? Home care ??? Rest today and return to your normal activities when you are feeling back to normal. ??? If you were injured during the fall, follow the advice from your healthcare provider about how to care for your injury. ??? At first, don't try to stretch out the sore spots. If there is a strain,stretching may make it worse. Massage may help relax the muscles without stretching them. ??? Use an ice pack or cold compress on and off at the sore spots for 10 to 20 minutes at a time, as often asyou feel comfortable. This may help reduce the inflammation, swelling, and pain. ??? Know that if you have any scrapes (abrasions), they often heal within??10 days. Keep the scrapes clean while they start to heal. But an infection may happen even with correct care. So watch for early signs of infection (such as warmth, redness, or swelling). ?? Medicines ??? Talk with your healthcare provider before taking new medicines, especially if you have other health problems or are taking other medicines. ??? If you need anything for pain, use acetaminophen or ibuprofen, unless you were given a different pain medicine to use.??Talk with your healthcare provider before using these medicines if you: o Have chronic liver or kidney disease o Ever hada stomach ulcer or??gastrointestinal bleeding o Are taking blood-thinner medicines ??? Be careful if you are given prescription pain medicines, narcotics, or medicine for muscle spasms. They can makeyou sleepy and dizzy. And they can affect your coordination, reflexes, and judgment. Don't drive ordo work where you can hurt yourself when taking them. ?? Fall prevention ??? Fix, remove, or replace anything that caused your fall. ??? Make your home safeby keeping walkways clear of objects you could trip over. ??? Use nonslip pads under rugs. Don't use small??area rugs or throw rugs. ??? Don't walk in poorly lit areas. ??? Don't stand on chairs or wobbly ladders. ??? Be careful when reaching overhead or looking upward. This position can cause a loss of balance. ??? Be sure your shoes fit correctly, have nonslip bottoms, and are in good condition. ??? Be careful when going up and down curbs, and walking on uneven sidewalks. ??? If your balance is poor, think about using a cane or walker. ??? Stay as active as you can. Balance, flexibility, strength, and endurance all come from exercise. They all play a role in preventing falls. ??? If you have pets, know where they are before you stand up or walk so you don't trip over them. ??? Limit alcohol intake. Alcohol can cause balance problems and increase the risk for falls. ??? Use night-lights. ??? Have your eyes tested to be sure you are seeing well, even if you already wear glasses.? Follow-up Follow up with your healthcare provider, or as advised. If X-rays or CT scans were done, you will be told if there is a change in the reading, especially if it affects treatment. ?? Call 911 Call 911 if any of these happen: ??? Trouble breathing ??? Confusion ??? Trouble waking up ??? Fainting or loss of consciousness ??? Fast or very slow heart rate ??? Seizure ??? Trouble with speech or vision, weakness of an arm or leg ??? Trouble walking or talking, loss of balance, numbness or weakness on one side of your body, or facial droop ?? When to get medical advice Call your healthcare provider right away if any of these happen: ??? Repeated falls, including falls that seem to happen for no reason ??? Dizziness ??? Severe headache ??? Blood in vomit or stools (look black or red in color) ?? Last Reviewed Date: 2022 ?? 4514-2811 [employer]. All rights reserved. This information is not intended as a substitute for professional medical care. Always follow your healthcare professional's instructions. ?? Patient Care team information Care Team Personnel Name: Konrad Gallegos RN Position: [facility] ED RN W/OE and Tasks Member Role: Primary Care Nurse Name: Fang Che Position: [facility] RN Member Role: Primary Care Nurse Name: Trisha Alamo RN Position: [facility] RN Supv Member Role: Primary Care Nurse Name: Rita Son NP Position: [facility] Associate Professional Member Role: Primary Care Nurse Address: Address: [address] [place] [address] Name: Sol Chanel RN Position: [facility] RN Member Role: Primary Care Nurse Name: Trisha Beltrán RN Position: [facility] RN Supv Member Role: Primary Care Nurse Name: Helene Pérez RN Position: [facility] RN Member Role: Primary Care Nurse Name: Brenda Cuba RN Position: [facility] HBO Wound Member Role: Primary Care Nurse Name: Kell Alonso RN Position: [facility] RN Member Role: Primary Care Nurse Name: Richa Clay LPN Position: [facility] RN Member Role: Primary Care Nurse Name: Екатерина Chacko RN Position: [facility] RN Member Role: Primary Care Nurse Name: Anna Lackey RN Position: [facility] RN Member Role: Primary Care Nurse Name: Marvin Mac MD Position: [facility] Physician - Primary Care Member Role: PCP Address: Address: [address] [place] [address]- [place] Name: Anna Oconnor RN Position: [facility] Battery Assembler Member Role: Primary Care Nurse Name: Kip Gonzalez RN Position: [facility] RN Member Role: Primary Care Nurse Address: Address: [address] [place] [address]- [place] Name: Sunitha Gutierrez RN Position: [facility] RN Member Role: Primary Care Nurse Name: April Acuña RN Position: [facility] RN Member Role: Primary Care Nurse Name: Li Esquivel RN Position: [facility] Battery Assembler Member Role: Primary Care Nurse Name: Tunde White MD Position: [facility] Physician - Behavioral Health Member Role: [employer] Consulting Physician Address: Address: [address] [place] [address]- [place] Name: Lizett George MD Position: [facility] ED Medicine MD Member Role: ED Attending Physician Address: Address: [address] [place] [address]- [place] Name: Kathy Angel RN Position: [facility] ED RN W/OE and Tasks Member Role: Patient Care Provider Name: Citlali Vela Position: [facility] ED TA [facility] Member Role: ED Associate Care Team Related Persons Name: FORREST TO Address: [address] [place] [address] Name: MÓNICA CREWS
--- OUTSIDE RECORDS SUMMARY | 2023-05-04 10:46 | XMS_ITS | Continuity of Care Document ---
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 Role Phone Not on Staff, PCP Primary Care Physician Unavail able Encounter [facility] Date(s): 03/24/23 - 03/26/[address] [address]- Encounter Diagnosis Chronic pain syndrome(Discharge Diagnosis) - 03/24/23 Discharge Disposition: A-D/C Home Attending Physician: Amy HENDERSON, Mary Admitting Physician: Nadya Carvajal MD Referring Physician: Patrick Zambrano MD Allergies, Adverse Reactions, Alerts Substance Reaction Severity Status sertraline Fluoxetine Fluoxetine Active Zoloft Active Remeron Active traZODone Active OLANZapine Active ZyPREXA Active Immunizations Given and Recorded Vaccine Date Status Refusal Reason tetanus/diphtheria/pertussis, acel(Tdap) 04/09/22 Recorded tetanus/diphtheria/pertussis, acel(Tdap) 05/18/18 Recorded tetanus/diphtheria/pertussis, acel(Tdap) 12/19/16 Recorded [id number] 12y+ bivalent booster vax 02/11/22 Recorded SARS-CoV-2 (COVID-19) mRNA-1273 vaccine 05/01/21 R ecorded influenza virus vaccine, inactivated 01/11/21 Sandro rded influenza virus vaccine, inactivated 12/27/17 Sandro rded influenza virus vaccine, inactivated 04/28/16 Sandro rded SARS-CoV-2 (COVID-19) mRNA BNT-162b2 vac 09/19/20 Recorded SARS-CoV-2 (COVID-19) mRNA BNT-162b2 vac 08/29/20 Recorded tetanus-diphtheria toxoids (Td) 12/14/18 Recorded Medications Abilify 30 mg oral tablet 1 tablet = 30 mg, By Mouth, Daily, # 30 tablet, 0 Refills, Maintenance, 03/25/23 10:57:00 EST, Tablet, Partial fill upon patient request if the prescription is for a schedule II opioid drug. Start Date: 03/25/23 Status: Ordered ammonium lactate 12% topical cream See Instructions, Apply to lower legs and feet 2 times a day, avoiding open areas, # 385 Gm, 0 Refills, Maintenance, 03/12/23 14:01:00 EST, Cream, [facility] #[id number], Apply to lower legs andfeet 2 times a day, avoiding open areas, 183, cm, 1... Start Date: 03/12/23 Status: Ordered bethanechol 25 mg oral tablet 25 mg, By Mouth, 4 times a day, # 120 tablet, Refills 0, Tot. Refills 0, Maintenance, 03/12/23 14:02:00 EST, Route to Pharmacy Electronically, [facility] #[id number], 183, cm, 03/12/23 5:13:00 EST, Height, 125.2, kg, 02/22/23 14:00:00 EST, Dry We... Start Date: 03/12/23 Status: Ordered bumetanide 1 mg oral tablet 1 mg, 1, tablet, By Mouth, 2 times a day, Refills 0, Maintenance, 03/26/23 9:51:00 EST, Partial fill upon patient request if the prescription is for a schedule II opioid drug. Start Date: 03/26/23 Status: Ordered buPROPion 300 mg/24 hours (XL) oral tablet, extended release 1 tablet = 300 mg, By Mouth, Daily, # 30 tablet, 0 Refills, Maintenance, 03/12/23 15:02:00 EST, XL Tablet, [facility] #[id number], 183, cm, 03/12/23 5:13:00 EST, Height, 125.2, kg, 02/22/23 14:00:00 EST, Dry Weight Start Date: 03/12/23 Status: Ordered busPIRone 30 mg oral tablet 1 tablet = 30 mg, By Mouth, 2 times a day, # 60 tablet, 0 Refills, Maintenance, 03/12/23 15:02:00 EST, Tablet, [facility] #[id number], 183, cm, 03/12/23 5:13:00 EST, Height, 125.2, kg, 02/22/23 14:00:00 EST, Dry Weight Start Date: 03/12/23 Status: Ordered chlorproMAZINE 50 mg oral tablet 1 tablet = 50 mg, By Mouth, 3 times a day, # 270 tablet, 0 Refills, Maintenance, 03/24/23 16:41:00 EST, Tablet, Partial fill upon patient request if the prescription is for a schedule II opioid drug. Start Date: 03/24/23 Status: Ordered Depakote ER 250 mg oral tablet, extended release 1 tablet = 250 mg, By Mouth, Daily, Total daily dose is 1750, # 30 tablet, 0 Refills, Maintenance, 03/12/23 13:59:00 EST, ER Tablet, [facility] #[id number], 183, cm, 03/12/23 5:13:00 EST, Height, 125.2, kg, 02/22/23 14:00:00 EST, Dry Weight Start Date: 03/12/23 Status: Ordered Depakote ER 500 mg oral tablet, extended release 3 tablet = 1,500 mg, By Mouth, Daily, total dose is 1750 QD, # 90 tablet, 0 Refills, Maintenance, 03/12/23 13:58:00 EST, ER Tablet, [facility] #[id number], 183, cm, 03/12/23 5:13:00 EST, Height,125.2, kg, 02/22/23 14:00:00 EST, Dry Weight Start Date: 03/12/23 Status: Ordered escitalopram 20 mg oral tablet 1 tablet = 20 mg, By Mouth, Daily, # 30 tablet, 0 Refills, Maintenance, 03/25/23 10:57:00 EST, Tablet, Partial fill upon patient request if the prescription is for a schedule II opioid drug. Start Date: 03/25/23 Status: Ordered ferrous sulfate 325 mg oral enteric coated tablet 325 mg, By Mouth, Every other day, # 15 each, Refills 0, Tot. Refills 0, Maintenance, 03/26/23 9:50:00 EST, Route to Pharmacy Electronically, [facility] #[id number], Partial fill upon patient request if the prescription is for a schedule II opioi... Start Date: 03/26/23 Stop Date: 04/25/23 Status: Ordered levothyroxine 75 mcg (0.075 mg) oral tablet = 75 mcg, By Mouth, Daily, # 30 tablet, 0 Refills, Maintenance, 03/12/23 14:00:00 EST, Tablet, [facility] #[id number], 183, cm, 03/12/23 5:13:00 EST, Height, 125.2, kg, 02/22/23 14:00:00 EST, Dry Weight Start Date: 03/12/23 Status: Ordered Methadone = 110 mg, By Mouth, Daily, 0 Refills, Maintenance, 03/26/23 9:50:00 EST, Tablet, Partial fill upon patient request if the prescription is for a schedule II opioid drug. Start Date: 03/26/23 Status: Ordered Methadone Tablet 100 mg, Tablet, By Mouth, 03/26/23 9:00:00 EST Start Date: 03/26/23 Stop Date: 03/26/23 Status: Completed Methadone Tablet 10 mg, Tablet, By Mouth, Once, Routine, 03/26/23 9:49:00 EST, Stop date 03/26/23 9:49:00 EST Start Date: 03/26/23 Stop Date: 03/26/23 Status: Completed pantoprazole 40 mg oral delayed [...] Refills, Maintenance, 03/14/23 9:00:00 EST, ER Tablet, [facility] #[id number], 183, cm, 03/13/23 7:38:00 EST, Height, 125.2, kg, 02/22/23 14:00:00 EST, Dry Weight Start Date: 03/14/23 Status: Ordered prazosin 5 mg oral capsule 5 mg, Capsule, By Mouth, 03/26/23 9:00:00 EST Start Date: 03/26/23 Stop Date: 03/26/23 Status: Completed prazosin 5 mg oral capsule 5 mg, 1, capsule, By Mouth, 2 times a day, # 60 capsule, Refills 0, Tot. Refills 0, Maintenance, 03/12/23 14:03:00 EST, Route to Pharmacy Electronically, [facility] #[id number], Partial fill upon patient request if the prescription is for a sched... Start Date: 03/12/23 Status: Ordered pregabalin 150 mg oral capsule 1 capsule = 150 mg, By Mouth, 2 times a day, # 180 capsule, 0 Refills, Maintenance, 01/27/23 10:33:00 EST, Capsule, [facility] #[id number], Partial fill upon patient request if the prescription is for a schedule II opioid drug., 183, cm, 01/27/23... Start Date: 01/27/23 Status: Ordered promethazine 25 mg oral tablet 0.5 each = 12.5 mg, By Mouth, Every 6 hours, PRN Nausea & Vomiting, # 20 tablet, 0 Refills, Maintenance, 03/12/23 19:26:00 EST, Tablet, [facility] #[id number], 183, cm, 03/12/23 5:13:00 EST,Height, 125.2, kg, 02/22/23 14:00:00 EST, Dry Weight Start Date: 03/12/23 Status: Ordered rivaroxaban 20 mg oral tablet = 20 mg, By Mouth, Daily at supper, # 30 tablet, 0 Refills, Maintenance, 04/01/23 15:05:00 EST, Tablet, [facility] #[id number], 183, cm, 03/12/23 5:13:00 EST, Height, 125.2, kg, 02/22/23 14:00:00 EST, Dry Weight Start Date: 04/01/23 Status: Ordered Senna 8.6 mg oral tablet 8.6 mg, 1, tablet, By Mouth, Daily at bedtime, # 30 tablet, Refills 0, Tot. Refills 0, Maintenance,03/12/23 15:04:00 EST, Route to Pharmacy Electronically, [facility] #[id number] Tablet, 183, cm, 03/12/23 5:13:00 EST, Height, 125.2, kg, 02/22/23... Start Date: 03/12/23 Status: Ordered SEROquel 25 mg oral tablet 50 mg, By Mouth, Every 8 hours, PRN, # 90 tablet, Refills 0, Tot. Refills 0, Maintenance, Anxiety, 03/12/23 14:05:00 EST, Route to Pharmacy Electronically, [facility] #[id number], 183, cm, 03/12/23 5:13:00 EST, Height, 125.2, kg, 02/22/23 14:00:0... Start Date: 03/12/23 Status: Ordered tamsulosin 0.4 mg oral capsule 0.4 mg, By Mouth, Daily, # 30 capsule, Refills 0, Tot. Refills 0, Maintenance, 03/12/23 15:06:00 EST, Route to Pharmacy Electronically, [facility] #[id number], 183, cm, 03/12/23 5:13:00 EST, Height, 125.2, kg, 02/22/23 14:00:00 EST, Dry Weight Start Date: 03/12/23 Status: Ordered tiZANidine 2 mg oral tablet 2 mg, 1, tablet, By Mouth, 3 times a day, PRN, # 30 tablet, Refills 0, Tot. Refills 0, Maintenance,Spasm, 03/12/23 19:27:00 EST, Route to Pharmacy Electronically, [facility] #[id number], ., 183, cm, 03/12/23 5:13:00 EST, Height, [...] suboxone- but denies any recent use. 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 Will continue Suboxone 8-2mg bid at this time. Not interested in tx program at this time. CTM. 2Outside Source Comment: Last Assessment & Plan: bp wnl-ap 126-regular Pt to [facility] via [facility] for further eval. 3Outside Source Comment: Last Assessment & Plan: Recent inpt psych hospitalization in [facility]. Denies any SI/HI at this time but very anxious about medications. DW pt no dose adjustments at this time and will need to connect with psych at [facility]- no current psych provider. Pt contracts for safety. Pt did come with rx avail- but sh ort on lorazepam. Will fill at this time but ensure has prescriber on d/c. met with pt todayand psych referral placed. Administration aware. Diagnosis Diagnosis Type Effective Dates Health Status Cl inical Service Informant Chronic pain syndrome Discharge Diagnosis 03/24/23 Non-Specified Results Radiology Reports * Exam Date Time Procedure Performing Provider Status 03/24/23 3:31 PM Chest 2 Views Frontal and Lat Jerica Ramos; Auth (Verified) Notes: (Chest 2 Views Frontal and Lat) Reason For Exam: chest pain with blood transfusion;Other: RESULT: Chest 2 Views Frontal and Lat Examination: Chest performed on 03/24/2023. History: Chest pain with blood transfusion. Findings: Frontal and lateral views of the chest are compared to a prior study dated 03/13/2023. The cardiac and mediastinal silhouettes are within normal limits. The lungs are clear. The osseous and soft tissue structures are unremarkable. Impression: There is no acute cardiopulmonary disease. WSN: [id number] Ordering Physician: Anna Suarez Dictated By: Katelyn Kaufman MD Dictated Date/Time: 03/24/23 3:47 pm Reviewed By: Katelyn Kaufman MD Signed By: Katelyn Kaufman MD Signed Date/Time: 03/24/23 3:47 pm Transcribed By: RAVINDER Transcribed Date/Time: 03/24/23 3:47 pm Vital Signs Most recent to oldest [Reference Range]: 1 2 3 Height 183 cm (03/26/23 8:56 AM) 183 cm (03/25/23 3:49 PM) 183 cm (03/25/23 12:50 AM) Weight 126.6 kg (03/25/23 3:49 PM) 135 kg (03/25/23 12:50 AM) 135 kg (03/25/23 12:07 AM) Oxygen Saturation [94-100 %] 100 % (03/26/23 8:56 AM) 99 % (03/26/23 4:00 AM) 99 % (03/25/23 8:00 PM) Pulse Rate [55-90 bpm] 86 bpm (03/26/23 8:56 AM) 72 bpm (03/26/23 4:00 AM) 86 bpm (03/25/23 8:00 PM) Body Mass Index [18.5-24.99 kg/m2] 37.8 kg/m2 *>HHI* (03/25/23 3:49 PM) 40.31 kg/m2 *>HHI* (03/25/23 12:50 AM) 40.31 kg/m2 *>HHI* (03/25/23 12:07 AM) Blood Pressure [90-138/55-84 mm Hg] 109/65mm Hg (03/26/23 8:56 AM) 109/65mm Hg (03/26/23 8:42 AM) 101/69mm Hg (03/26/23 4:00 AM) Respiratory Rate [16-30 br/min] 18 br/min (03/26/23 11:30 AM) 18 br/min (03/26/23 10:29 AM) 18 br/min (03/26/23 9:42 AM) Temperature [96.8-100.4 DegF] 97.3 DegF (03/26/23 8:56 AM) 98.2 DegF (03/26/23 4:00 AM) 97.6 DegF (03/25/23 8:00 PM) Mode of Delivery (Oxygen) Room air (03/26/23 8:56 AM) Room air (03/26/23 4:00 AM) Room air (03/25/23 8:00 PM) Blood pressure sites Arm, left (03/26/23 8:56 AM) Arm, left (03/26/23 4:00 AM) Arm, left (03/25/23 8:00 PM) Temperature Route Oral (03/26/23 8:56 AM) Oral (03/26/23 4:00 AM) Oral (03/25/23 8:00 PM) Dry Weight 122.6 kg (03/25/23 3:49 PM) 135 kg (03/25/23 12:50 AM) 135 kg (03/25/23 12:07 AM) Weight Obtained Via Standing scale (03/25/23 3:49 PM) Standing scale (03/24/23 6:55 AM) Dry Weight Obtained Via Patient/family s tated (03/25/23 3:49 PM) Social History Social History Type Response Tobacco Use: 4 or less cigar ettes(less than 1/4 pack)/day in last 30 days. Sex Implantable Device List Procedure Provider Procedure Date Device Type Site Repair Hernia Ventral Laparoscopic Gus Vivas MD 09/13/20 Unknown Abdomen Device Identifier Serial Number Lot or Batch Number Manufacturing Date Expiration Date Distinct Identification Code MRI Safety Implantable Status 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 [id number] Unknown [id number] 2 Unknown 03/11/21 Unknown Unknown Active GS1 Admission evaluation note * Anna Roberts: PERFORM, MODIFY Event Display: Admission Note Authored Date: [id number] Patient: ??VAHID TO ? Age:??42 Years?Sex:??Male?:??1980?? Chief Complaint/Reason for Consultation Bleeding Varicose vein History of Present Illness 42-year-old male??with a history of??schizophrenia, bipolar disease, chronic lymphedema, disruptivebehavior towards hospital staff, persistent asthma as well as chronic pain syndrome presenting with??shortness of breath, anxiety, and uncontrollable??recurrent??varicose??vein bleed on Xarelto that had??stopped upon presentation to ED.??Pt seen 03/15 and yesterday and discharged home after resolution of bleed. Today He seemed pale on exam with tachycardia and labs returned??with decreased H/H to 7.0/22.9. Consent obtained and blood transfusion started in ED. When this pt was evaluated by this??admitting provider, pt developed acute on chronic SOB and central non radiating??chest pain. Labs stab le and not hypoxic. Lungs clear to auscultation. EKG obtained??showed NSR without Ischemic changes.??CXR and troponin pending.?? Review of Systems Constitutional: Reports fatigue.??No weight loss, fever, chills Eyes:??No visual changes ENT:??No congestion, runny nose or sore throat. Respiratory: Reports SOB.??No cough or sputum production. Cardiovascular: Reports acute chest pain.??No chest pain, chest pressure or chest discomfort. No palpitations. Gastrointestinal:??No anorexia, nausea, vomiting or diarrhea. No abdominal pain or blood in stool. Genitourinary:??No burning micturition. No urinary frequency or incontinence. Neurologic:??No headache, dizziness, syncope, unilateral weakness, ataxia, numbness or tingling in the extremities. No change in bowel or bladder control. Musculoskeletal:??No muscle pain, back pain, joint pain or stiffness. Hematologic/Lymphatics:??Reports??LE vein??bleeding Skin:??No rash or itching. Psychiatric:??Reports?hx??of anxiety and PTSD Objective Vital Signs?? Temperature: 98 DegF (03/24/23 14:14:00) Temperature Route: Oral (03/24/23 14:14:) Pulse Rate:??102 bpm??High (03/24/23 14:14:00) Respiratory Rate: 17 br/min (03/24/23:41:00) Systolic Blood Pressure: 115 mm Hg (03/24/23 14:14:) Diastolic Blood Pressure: 78 mm Hg (03/24/23 14:14:00) Blood pressure sites: Arm, left (03/24/23:14:00) Mean Arterial Pressure: 90 mm Hg (03/24/23:14:) Pulse Pressure: 37 mm Hg (03/24/23 14:14:) Oxygen Saturation: 100 % (03/24/23::) Mode of Delivery (Oxygen): Room air (03/24/23::) ? Physical Exam Constitutional: Alert, in no distress. Mental Status: Oriented to person, place and time. Head: Normocephalic. Eyes: Pupils are equal, round and reactive to light. Extraocular muscles intact. Neck: Supple, Full range of motion. Respiratory: Clear to auscultation. No wheezing, rales or rhonchi. Cardiovascular: S1 S2 regular. No murmurs Neurologic: No focal neurological deficits. Moves all extremities spontaneously.?? Skin: LLE wound/varicose??bleed??controlled and covered with??abd??pad and??gauze??bandage. ChronicLE??swelling,??L>R, and??hyperpigmentation. Musculoskeletal: No cyanosis or clubbing. No gross deformities. Normal range of motion. Psychiatric: Normal mood and affect Assessment/Plan Assessment:??42-year-old male??with a history of??schizophrenia, bipolar disease, chronic lymphedema, disruptive behavior towards hospital staff, persistent asthma as well as chronic pain syndrome presenting with??shortness of breath, anxiety, and uncontrollable??recurrent??varicose??vein bleed on Xarelto that had??stopped upon presentation to ED.? Acute anemia (D64.9): Bleeding Ulcer of extremity due to chronic venous insufficiency (L98.499):?? DVT (deep venous thrombosis) (I82.409):? Iron deficiency anemia (D50.9):??/Presenting with 2 days of acute varicose vein bleeding on Xarelto. Pt seen 03/15 and yesterday and discharged home after resolution of bleed. Back today for bleeding, fatigue and SOB. No blood in vomit or stool. He seemed pale on exam with tachycardia and labs returned??with decreased H/H to 7.0/22.9. Consent obtained and blood transfusion started in ED. When this pt was evaluated by this??admitting provider, pt developed acute on chronic SOB and central non radiating??chest pain. Transfusion reaction workup initiated. Pt taking xarelto incorrectly (15mg AM [id number] PM). Plan -Check H/H -Hold Xarelto tonight in setting of acute bleed and anemia. Restart tomorrow if no recurrent bleeding -Educated pt on correct way to take Xarelto -Pt also not taking home ferrous sulfate, will restart -Continue PPI ?? Chest pain (R07.9):??Consent obtained and blood transfusion started in ED. When this pt was evaluated by this??admitting provider, pt developed acute on chronic SOB and central non radiating??chest pain. Labs stable and not hypoxic. Lungs clear to auscultation. EKG obtained??showed NSR without Ischemic changes.?? Plan -Blood transfusion stopped and worked up as blood transfusion reaction -CXR and troponin pending -Control anxiety ?? Difficulty voiding (R39.198):??Continue tamsulosin ?? CYNTHIA (generalized anxiety disorder) (F41.1):?? Schizoaffective disorder, bipolar type (F25.0):?? Antisocial personality disorder in adult (F60.2):?? Psychiatrist through [facility] in [place]. Continue home??bupropion,??buspirone, Depakote, prazosin, Seroquel, Chlorpromazine ?? Hypothyroidism (E03.9):??Continue levothyroxine Opiate dependence, continuous (F11.20):??MassPat checked. Recent prescription for Sublocade Alcohol use disorder, moderate, in early remission (F10.21):??Noted ?? Diet: Regular VTE Prophylaxis:??Xarelto on hold tonight due to acute anemia Code Status:??Full Ongoing Medical Necessity:??Acute anemia requiring transfusion Tobacco Use Treatment:??Patch Discharge Planning:??pending workup above ?[id number] time: Physical exam, HPI, results/plan of care discussion??35 minutes.?? Total evaluation time: ED report, [id number] time,??chart review and documentation??85 minutes. Histories Allergies Allergies ?(Active and Proposed Allergies Only) OLANZapine? (Severity: Unknown severity, Onset: Unknown) sertraline? (Severity: Unknown severity, Onset: Unknown) ?Reactions: Fluoxetine, Fluoxetine Remeron? (Severity: Unknown severity, Onset: Unknown) traZODone? (Severity: Unknown severity, Onset: Unknown) ZyPREXA? (Severity: Unknown severity, Onset: Unknown) Zoloft? (Severity: Unknown severity, Onset: Unknown) ? Past Medical History/Problem List Active Problems??(19) Alcohol use disorder, moderate, in early remission Allergic rhinitis Antisocial personality disorder in adult Asthma Bilateral lower limb edema Bipolar disorder with depression Chronic obstructive lung disease Chronic pain syndrome DVT of popliteal vein Generalized anxiety disorder GERD (gastroesophageal reflux disease) Hypothyroidism Iron deficiency anemia Opioid dependence Polysubstance dependence PTSD (post-traumatic stress disorder) Schizoaffective disorder, bipolar type Severe obesity (BMI 35.0-39.9) with comorbidity Tricompartment osteoarthritis of both knees ? Past Surgical History Upper gastrointestinal endoscopy: 12/20/18 Knee joint operation Ankle joint operations Herniotomy Appendectomy ? Social History Alcohol Details:??Frequency: 1-2 times per month. ??Type: Beer, Liquor. Details:??Use: Current. ??Frequency: 1-2 times per year. ??Type: Beer. Employment/School Details:??Status: Unemployed. Exercise Details:??Self assessment: Poor condition. Home/Environment Details:??Living situation: Home/Independent. ??Lives with: Mother. Other Details:??Name: Legal. ??Details: History of multiple incarcerations; not currently on probation. Substance Abuse Details:??Use: Past. ??Type: Marijuana, Prescription medications. ??Other: refused to answer. ??Frequency: 1-2 times per month. Tobacco Details:??Use: 10 or more cigarettes (1/2 pack or more)/day in last 30 days. ??Interested in cessation: Yes. Details:??Use: 10 or more cigarettes (1/2 pack or more)/day in last 30 days. Electronic Cigarette/Vaping Details:??Electronic Cigarette Use: 1/2 cartridge/day. ??Type: Cannabinoid infused. ? Family History Mother: Anxiety; Asthma; COPD Father: Alcoholism ? Medications Home Medications Ammonium Lactate 12% (ammonium lactate 12% topical cream)?See Instructions?Apply to lower legs and feet 2 times a day, avoiding open areas Bethanechol (bethanechol 25 mg oral tablet)?25?Milligram?By Mouth?4 times a day Bumetanide (bumetanide 2 mg oral tablet)?2?Milligram?By Mouth?2 times a day BuPROpion (buPROPion 300 mg/24 hours (XL) oral tablet, extended release)?1?tab(s)?300?Milligram?By Mouth?Daily BusPIRone (busPIRone 30 mg oral tablet)?1?tab(s)?30?Milligram?By Mouth?2 times a day ChlorproMAZINE (chlorproMAZINE 50 mg oral tablet)?1?tab(s)?50?Milligram?By Mouth?3 times a day Divalproex Sodium (Depakote ER 500 mg oral tablet, extended release)?3?tab(s)?1,500?Milligram?By Mouth?Daily?total dose is 1750 QD Divalproex Sodium (Depakote ER 250 mg oral tablet, extended release)?1?tab(s)?250?Milligram?By Mouth?Daily?Total daily dose is 1750 Levothyroxine (levothyroxine 75 mcg (0.075 mg) oral tablet)?75?Microgram?By Mouth?Daily Pantoprazole (pantoprazole 40 mg oral delayed release tablet)?40?Milligram?By Mouth?Daily Potassium Chloride (potassium chloride 20 mEq oral tablet, extended release)?1?tab(s)?20?Milliequivalent?By Mouth?Daily Prazosin (prazosin 5 mg oral capsule)?5?Milligram?1?capsule?By Mouth?2 times a day Pregabalin (pregabalin 150 mg oral capsule)?1?capsule?150?Milligram?By Mouth?2 times a day Promethazine (promethazine 25 mg oral tablet)?0.5?Each?12.5?Milligram?By Mouth?Every 6 hours?as needed?Nausea & Vomiting Quetiapine (SEROquel 25 mg oral tablet)?50?Milligram?By Mouth?Every 8 hours?as needed?Anxiety rivaroxaban (rivaroxaban 15 mg oral tablet)?15?Milligram?By Mouth?2 times a day with meals rivaroxaban (rivaroxaban 20 mg oral tablet)?20?Milligram?By Mouth?Daily at supper Senna (Senna 8.6 mg oral tablet)?8.6?Milligram?1?tab(s)?By Mouth?Daily at bedtime Tamsulosin (tamsulosin 0.4 mg oral capsule)?0.4?Milligram?By Mouth?Daily Tizanidine (tiZANidine 2 mg oral tablet)?2?Milligram?1?tablet?By Mouth?3 times a day?as needed?Spasm ? Results Recent Labs BLOOD BANK Blood Type O Positive ()?? 03/24/2023 08:22 Antibody Screen Negative ()?? 03/24/2023 08:22 RBC Unit ID [id number] ()?? 03/24/2023 10:55 RBC Available IS ()?? 03/24/2023 10:55 ?? BLOOD COUNT & DIFF WBC 5.4 k/mm3 ()?? 03/24/2023 07:42 RBC 2.74 m/mm3 (Low)?? 03/24/2023 07:42 Hgb 7.0 Gm/dL (Low)?? 03/24/2023 07:42 Hct 22.9 % (Low)?? 03/24/2023 07:42 MCV 83.6 femtoliters ()?? 03/24/2023 07:42 MCH 25.5 pg (Low)?? 03/24/2023 07:42 MCHC 30.6 g/dL (Low)?? 03/24/2023 07:42 Platelet Count 262 k/mm3 ()?? 03/24/2023 07:42 RDW-SD 48.9 femtoliters (High)?? 03/24/2023 07:42 MPV 9.5 femtoliters ()?? 03/24/2023 07:42 Nucleated RBC (Automated) 0.0 #/100 WBC'S ()?? 03/24/2023 07:42 Abs. NRBC 0.0 k/mm3 ()?? 03/24/2023 07:42 Abs. Neut 3.3 k/mm3 ()?? 03/24/2023 07:42 Abs. Lymph 1.1 k/mm3 ()?? 03/24/2023 07:42 Abs. Panola 0.6 k/mm3 ()?? 03/24/2023 07:42 Abs. Eo 0.3 k/mm3 ()?? 03/24/2023 07:42 Abs. Baso 0.1 k/mm3 ()?? 03/24/2023 07:42 Neut % 60.9 % ()?? 03/24/2023 07:42 Lymph % 20.6 % ()?? 03/24/2023 07:42 Panola % 11.1 % (High)?? 03/24/2023 07:42 Eos % 4.8 % ()?? 03/24/2023 07:42 Baso % 0.9 % ()?? 03/24/2023 07:42 Imm Gran 1.7 % ()?? 03/24/2023 07:42 Abs. Imm Gran 0.1 k/mm3 ()?? 03/24/2023 07:42 ?? CARDIAC High Sensitivity Troponin (HSTnT) 11 ng/L ()?? 03/24/2023 14:26 ?? CHEM GENERAL Sodium 135 mmol/L ()?? 03/24/2023 07:42 Potassium 3.7 mmol/L ()?? 03/24/2023 07:42 Chloride 95 mmol/L (Low)?? 03/24/2023 07:42 Bicarbonate Level 30 mmol/L (High)?? 03/24/2023 07:42 Anion Gap 10 ()?? 03/24/2023 07:42 Glucose Level 155 mg/dL (High)?? 03/24/2023 07:42 BUN 15 mg/dL ()?? 03/24/2023 07:42 Creatinine-Blood 0.8 mg/dL ()?? 03/24/2023 07:42 Estimated GFR Creatinine 115 ML/MIN/1.73 M2 ()?? 03/24/2023 07:42 ?? HEME OTHER Hold Lavender Top SPECIMEN DISCARDED AFTER 24 HOURS. ()?? 03/24/2023 14:42 ?? MISC. CHEMISTRY Hold Red Top SPECIMEN DISCARDED AFTER 1 WEEK ()?? 03/24/2023 14:42 Hold Gel Top SPECIMEN DISCARDED AFTER 1 WEEK ()?? 03/24/2023 07:42 ?? URINE OTHER Est Creatinine Clearance 134.91 mL/min ()?? 03/24/2023 08:09 ? Urinalysis Est Creatinine Clearance: 134.91 mL/min (08:09) ? Hospital Progress note * Yaritza Aldana RN: PERFORM, SIGN, VERIFY Event Display: Progress Note Hospital Authored Date: [id number] Patient: VAHID TO Age: 42 years Sex: Male : 1980 Associated Diagnoses: None Author: Yaritza Aldana RN Findings Problem Related to Alteration in Fluid Electrolyte : Alteration in Fluid Electrolyte Func/new 03/26/2023 12:00 EST Alteration Fluid Electrolytes Related to Anemia Goals & Outcomes, Fluid/Electrolyte Vital signs, electrolytes & glucose levels will stabilize, Pt will maintain adequate GI/ function appropriate for pt, Pt will resume/maintain adequate cardiac output, Pt will resume/maintain adequate hemodynamic status, Pt will state importance of adhering to medication regime Interventions, Fluid Electrolyte monitor cardiac status, monitor for onset of acute bleeding, monitor for s/s of anemia: weakness, fatigue,, monitor GI/ status, monitor hydration status, monitor peripheral pulses, monitor skin turgor, temperature & capillary refill, Encourage & assist with increased activity as pt tolerates Goals/Interventions,Fluid Electrolyte Yes Fluid Electrolyte, Problem Start 03/26/2023 3:21 Reviewed plan with, Fluid Electrolyte Patient Patient Progression, Fluid Electrolyte Pt progressing according to plan . Alteration in Safety : Alteration in Safety/new 03/26/2023 12:00 EST Alteration in Safety Related to Other: weakness, fall risk Goals & Outcomes, Safety Pt/caregiver will state understanding of plan/goals of care, Pt will remain safe & injury free, Pt/caregiver will be offered appropriate resources & support Interventions, Safety Provide info on community resources for education, support, Provide teaching as needed Goals/Interventions, Safety Yes Safety, Problem Start 03/24/2023 11:00 Reviewed plan with, Safety Patient Patient Progression, Safety Pt progressing according to plan . Falls Risk Assessment : Falls Data 03/26/2023 8:45 EST Fall Elimination No impairment Fall Agitation/Anxiety/Depression No impairment Fall Related Sign/Symptom/Condition None Fall Cognitive Limitations No impairment Fall Sensory and Physical Function Unsteady Gait, Requires the Use of an Assistive Device Plan: Fall Sensory and Physical Function Encourage safe activities to maintain strength & mobility, Monitor patient's progress with physical activities, Educate patient how to use mobility aids safely, Educate the family how to use mobility aids safely, Place mobility aids near bedside Fall High Risk for Injury None of the above Total Falls Risk Score 6 Fall Risk Level High Risk Falls Prevention Plan for High Risk Fall risk decal outside of patient's room, Fall moving consultant patient's chart, Apply yellow high fall risk wrist band to wrist, Ensure patient has yellow non-skid slippers, Supervise patient in the bathroom & shower, Activate bed exit alarm system, Evaluate footwear & ensure patient has non-skid slippers, Activate alternate alarm: bed (i.e. TABS), Bed in lowest locked position, Provide patient/family falls prevention education, Place personal care items & call clark within reach, Instruct patient/family to request assistance with ambulatio, Instructpatient/family not to get up without assistance, Supervise the patient when ambulating or making transfers, Check that needs are met to minimize attempts to get up, Hourly rounds . Alteration in Tissue Perfusion : Alteration in Tissue Perfusion 03/26/2023 12:00 EST Alteration Tissue Perfusion related to Anemia, Bleeding Goals & Outcomes: Tissue perfusion Pt will maintain optimal perfusion to vital organs, Pt will resume/maintain adequate peripheral circulation, Pt will achieve progressive healing of injured area, Pt will be hemodynamically stable, Pt will achieve normal/improved/optimal neuro status, Pt will return to baseline respiratory function, Pt will maintain adequate GI function appropriate for pt, Ptwill maintain adequate function appropriate for pt, Pt will be discharged without infection, Pt/S.O. will state understanding of plan of care Interventions: Tissue Perfusion Assess/Monitor activity tolerance, Assess/Monitor CMS to affected extremity, Assess/Monitor mental status, Assess/Monitor peripheral pulses & capillary refill, Assess/Monitor presence & degree of edema, Assess/Monitor secretions & drainage for s/s of infection, Monitor blood loss BH Goals/Interventions, Tissue Perfusion Yes Tissue Perfusion, Problem Start 03/25/2023 18:21 Reviewed Plan with, Tissue Perfusion Patient Patient Progression, Tissue Perfusion Pt progressing according to plan . Nursing Data Integumentary Data. : Integumentary Data. 03/26/2023 8:45 EST Skin Integrity Not intact Sensory Perception Slightly limited Moisture Rarely moist Activity Walks occasionally Activity Walks occasionally Mobility Slightly limited Mobility Slightly limited Nutrition Adequate Friction and Shear No apparent problem Kaydne Score 19 Nursing Care Plan initiated/updated Not applicable Integumentary WNL except . Narrative/Incidental Pt A&Ox4, making needs known. vitals stable. meals and meds tolerated well. c/o pain in BLE, prn zaniflex given as well as one time order for an extra 10mg methadone with some improvement. dressing to LLE remains CDI. Pt encouraged to stop picking at wounds, verbalized understanding. pt ambulating with standby assist and walker. plan for pt to be discharged home early this afternoon. currently sitting up in bed awaiting ride home. safety is maintained.. Discharge Information Case Management Discharge Plan : Case Management Discharge Plan Data 03/23/2023 17:14 EST Discharge Level of Care at Discharge Home/Care Home/Foster Care * Shelbi Mae RN: VERIFY, PERFORM, SIGN Event Display: Progress Note Hospital Authored Date: Patient: VAHID TO Age: 42 years Sex: Male : 1980 Associated Diagnoses: None Author: Shelbi Mae RN Findings Problem Related to Alteration in Fluid Electrolyte : Alteration in Fluid Electrolyte Func/new 03/26/2023 3:00 EST Alteration Fluid Electrolytes Related to Anemia Goals & Outcomes, Fluid/Electrolyte Vital signs, electrolytes & glucose levels will stabilize, Pt will maintain adequate GI/ function appropriate for pt, Pt will resume/maintain adequate cardiac output, Pt will resume/maintain adequate hemodynamic status, Pt will state importance of adhering to medication regime Interventions, Fluid Electrolyte monitor cardiac status, monitor for onset of acute bleeding, monitor for s/s of anemia: weakness, fatigue, BH Goals/Interventions,Fluid Electrolyte Yes Fluid Electrolyte, Problem Start 03/26/2023 3:21 Reviewed plan with, Fluid Electrolyte Patient Patient Progression, Fluid Electrolyte Plan Initiation . Alteration in Safety : Alteration in Safety/new 03/26/2023 3:00 EST Alteration in Safety Related to Other: weakness, fall risk Goals & Outcomes, Safety Pt/caregiver will state understanding of plan/goals of care, Pt will remain safe & injury free, Pt/caregiver will be offered appropriate resources & support Interventions, Safety Provide teaching as needed Goals/Interventions, Safety Yes Safety, Problem Start 03/24/2023 11:00 Reviewed plan with, Safety Patient Patient Progression, Safety Pt progressing according to plan . Alteration in Tissue Perfusion : Alteration in Tissue Perfusion 03/26/2023 3:00 EST Alteration Tissue Perfusion related to Anemia, Bleeding Goals & Outcomes: Tissue perfusion Pt will maintain optimal perfusion to vital organs, Pt will resume/maintain adequate peripheral circulation, Pt will achieve progressive healing of injured area, Pt will be hemodynamically stable, Pt will achieve normal/improved/optimal neuro status, Pt will return to baseline respiratory function, Pt will maintain adequate GI function appropriate for pt, Ptwill maintain adequate function appropriate for pt, Pt will be discharged without infection, Pt/S.O. will state understanding of plan of care Interventions: Tissue Perfusion Assess for s/s of infection of lines, drains, incisions, Assess/Monitor activity tolerance, Assess/Monitor mental status, Assess/Monitor peripheral pulses & capillary refill, Assess/Monitor presence & degree of edema, Assess/Monitor secretions & drainage for s/s of infection Goals/Interventions, Tissue Perfusion Yes Tissue Perfusion, Problem Start 03/25/2023 18:21 Reviewed Plan with, Tissue Perfusion Patient Patient Progression, Tissue Perfusion Pt progressing according to plan . Nursing Data Vital Signs : VITAL SIGNS SECTION 03/25/2023 20:00 EST Temperature 97.6 DegF Temperature Route Oral Pulse Rate 86 bpm Respiratory Rate 16 br/min Oxygen Saturation 99 % Mode of Delivery (Oxygen) Room air . Narrative/Incidental Pt s/p RBC transfusion, no SOB, weakness, fatigue, skin color ormal for ethnicity. Small open woundon LLE covered with DSD, CDI. Pt c/o BLE pain 12/22, medicated with PRN Tylenol at 21:00 with good effect, pt resting with eyes closed until approx 01:00 when he again c/o BE pain requesting narcotics. This newspaper writer explained that PRN Tylenol was ordered/offered, pt refused & again closed eyes & was quiet until approx 02:00 when he became agitated, pushing bedside table & nightstand across the room. When this newspaper writer entered the room, pt was on the phone with SERGE beyer. This newspaper writer againoffered PRN Tylenol & Zanaflex to which he agreed to take. Dr Cano notified of the situation. Medication given at 02:30. Pt resting quietly at this time. Bed alarm on, call clark within reach. . Discharge Information Case Management Discharge Plan : Case Management Discharge Plan Data 03/23/2023 17:14 EST Discharge Level of Care at Discharge Home/Care Home/Foster Care * Fanny Zacarias RN: PERFORM, SIGN, VERIFY Event Display: Progress Note Hospital Authored Date: [id number] Patient: VAHID TO Age: 42 years Sex: Male : 1980 Associated Diagnoses: None Author: Fanny Zacarias RN Findings Problem Related to Alteration in Tissue Perfusion : Alteration in Tissue Perfusion 03/24/2023 11:00 EST Alteration Tissue Perfusion related to Anemia, Bleeding Goals & Outcomes: Tissue perfusion Pt will maintain optimal perfusion to vital organs, Pt will resume/maintain adequate peripheral circulation, Pt will achieve progressive healing of injured area, Pt will be hemodynamically stable, Pt will achieve normal/improved/optimal neuro status, Pt will return to baseline respiratory function, Pt will maintain adequate GI function appropriate for pt, Ptwill maintain adequate function appropriate for pt, Pt will be discharged without infection, Pt/S.O. will state understanding of plan of care Interventions: Tissue Perfusion Assess for s/s of infection of lines, drains, incisions, Assess/Monitor activity tolerance, Assess/Monitor cardiac dysrhythmias, Assess/Monitor CMS to affected extremity, Assess/Monitor mental status, Assess/Monitor vital signs per unit standard & prn, Monitor blood loss, Monitor labs & report variances to provider, Elevate limbs, Position for comfort BH Goals/Interventions, Tissue Perfusion Yes Tissue Perfusion, Problem Start 03/24/2023 11:00 Reviewed Plan with, Tissue Perfusion Patient Patient Progression, Tissue Perfusion Plan Initiation . Evaluation Pt A&Ox4, ambulates independently at baseline. Admitted from the ED w/ Anemia. Requesting for his methadone dose to be increased and a shower uppon arrival. Oriented to the room and call light.Requires to be redirected frequently. Call light within reach, bed in lowest position. Pt is able to verbalize needs. . Note * Yaritza Aldana RN: PERFORM Event Display: Discharge/Transfer Note Hospital Authored Date: [id number] Nursing Discharge Note Entered On: 03/26/2023 13:07 EST Performed On: 03/26/2023 13:06 EST by Yaritza Aldana RN Nursing Discharge Note 2 Discharge Time : 03/26/2023 13:07 EST Discharge Level of Care at Discharge : Home/Care Home/Foster Care Patient Left Unit Via : Wheelchair Patient Accompanied Off Unit with : Responsible adult DC Instructions Provided & Signed by Pt : Yes Patient Understands D/C Instructions : Yes Patient Instructions Discharge Signed : Yes Did Pt have Specialty Bed or Wound Vac : No Yaritza Aldana RN - 03/26/2023 13:06 EST * Amy HENDERSON, Mary: PERFORM Event Display: Discharge/Transfer Note Hospital Authored Date: [id number] Patient: ??VAHID TO ? Age:??42 Years?Sex:??Male?:??1980?? Patient Information Discharge Location: Med Surg Primary Care Physician: Not on Staff, PCP Admit Date/Time: 03/24/23 09:43 Discharge Disposition Discharge Disposition: Home: No Services Discharge Diagnosis Acute anemia (D64.9) Alcohol use disorder (F10.90) Antisocial personality disorder in adult (F60.2) Bilateral leg edema (R60.0) Chest pain (R07.9) Chronic pain syndrome (G89.4) DVT (deep venous thrombosis) (I82.409) Difficulty voiding (R39.198) CYNTHIA (generalized anxiety disorder) (F41.1) Hypothyroidism (E03.9) Iron deficiency anemia (D50.9) Opioid dependence (F11.20) Schizoaffective disorder, bipolar type (F25.0) Ulcer of extremity due to chronic venous insufficiency (L98.499) Bipolar disorder with depression Chronic pain syndrome GERD (gastroesophageal reflux disease) Generalized anxiety disorder ?? _ Discharge Medications Ammonium Lactate 12% (ammonium lactate 12% topical cream)?See Instructions?Apply to lower legs and feet 2 times a day, avoiding open areas Aripiprazole (Abilify 30 mg oral tablet)?1?tab(s)?30?Milligram?By Mouth?Daily Bethanechol (bethanechol 25 mg oral tablet)?25?Milligram?By Mouth?4 times a day Bumetanide (bumetanide 1 mg oral tablet)?1?Milligram?1?tablet?By Mouth?2 times a day BuPROpion (buPROPion 300 mg/24 hours (XL) oral tablet, extended release)?1?tab(s)?300?Milligram?By Mouth?Daily BusPIRone (busPIRone 30 mg oral tablet)?1?tab(s)?30?Milligram?By Mouth?2 times a day ChlorproMAZINE (chlorproMAZINE 50 mg oral tablet)?1?tab(s)?50?Milligram?By Mouth?3 times a day Divalproex Sodium (Depakote ER 500 mg oral tablet, extended release)?3?tab(s)?1,500?Milligram?By Mouth?Daily?total dose is 1750 QD Divalproex Sodium (Depakote ER 250 mg oral tablet, extended release)?1?tab(s)?250?Milligram?By Mouth?Daily?Total daily dose is 1750 Escitalopram (escitalopram 20 mg oral tablet)?1?tab(s)?20?Milligram?By Mouth?Daily Ferrous Sulfate (ferrous sulfate 325 mg oral enteric coated tablet)?325?Milligram?By Mouth?Every other day?for 30?Days Levothyroxine (levothyroxine 75 mcg (0.075 mg) oral tablet)?75?Microgram?By Mouth?Daily Methadone?110?Milligram?By Mouth?Daily Pantoprazole (pantoprazole 40 mg oral delayed release tablet)?40?Milligram?By Mouth?Daily Potassium Chloride (potassium chloride 20 mEq oral tablet, extended release)?1?tab(s)?20?Milliequivalent?By Mouth?Daily Prazosin (prazosin 5 mg oral capsule)?5?Milligram?1?capsule?By Mouth?2 times a day Pregabalin (pregabalin 150 mg oral capsule)?1?capsule?150?Milligram?By Mouth?2 times a day Promethazine (promethazine 25 mg oral tablet)?0.5?Each?12.5?Milligram?By Mouth?Every 6 hours?as needed?Nausea & Vomiting Quetiapine (SEROquel 25 mg oral tablet)?50?Milligram?By Mouth?Every 8 hours?as needed?Anxiety rivaroxaban (rivaroxaban 20 mg oral tablet)?20?Milligram?By Mouth?Daily at supper Senna (Senna 8.6 mg oral tablet)?8.6?Milligram?1?tab(s)?By Mouth?Daily at bedtime Tamsulosin (tamsulosin 0.4 mg oral capsule)?0.4?Milligram?By Mouth?Daily Tizanidine (tiZANidine 2 mg oral tablet)?2?Milligram?1?tablet?By Mouth?3 times a day?as needed?Spasm ?? Medications Started ferrous sulfate Medications Discontinued none Doses Changed Xarelto 20mg daily Bumex down to 1mg BID Allergies Allergies ?(Active and Proposed Allergies Only) OLANZapine? (Severity: Unknown severity, Onset: Unknown) sertraline? (Severity: Unknown severity, Onset: Unknown) ?Reactions: Fluoxetine, Fluoxetine Remeron? (Severity: Unknown severity, Onset: Unknown) traZODone? (Severity: Unknown severity, Onset: Unknown) ZyPREXA? (Severity: Unknown severity, Onset: Unknown) Zoloft? (Severity: Unknown severity, Onset: Unknown) ? PCP Follow-Up/Heads-Up Regular follow up Future Appointments Wednesday 8:20 AM EDT ?? With: Jer PRODUCT INSPECTION SUPERVISOR, Tania Villalpando Where: [address] [address]- Status: Pending Objective Assessment and Plan Assessment:??42-year-old male with a history of schizophrenia, bipolar disease, chronic lymphedema,disruptive behavior towards hospital staff, persistent asthma as well as chronic pain syndrome presenting with shortness of breath, anxiety, and uncontrollable recurrent varicose vein bleed on Xarelto that had stopped upon presentation to ED. ? Acute anemia (D64.9): Bleeding Ulcer of extremity due to chronic venous insufficiency (L98.499): DVT (deep venous thrombosis) (I82.409): Iron deficiency anemia (D50.9): Presenting with 2 days of acute varicose vein bleeding on Xarelto.?Patient at home had been taking Xarelto but wrong dosage, he was taking almost 50 mg??daily.??There is a small ulcer on his??left anterior??tibial region??which is currently not bleeding. He did present with hemoglobin of??7 which went down to 6.6, he received blood transfusion.??Patient is hemodynamically stable,??hemoglobin at the time of discharge is 7.3. Based on his previous labs he does have iron deficiency anemia as well, he has been started on??ferrous sulfate every other day.??Patient will??continue with??Xarelto 20 mg??every evening.? Chest pain (R07.9):??EKG normal, resolved. ? Difficulty voiding (R39.198): Continue tamsulosin and prazosin ? CYNTHIA (generalized anxiety disorder) (F41.1): Schizoaffective disorder, bipolar type (F25.0): Antisocial personality disorder in adult (F60.2): Psychiatrist through [facility] in [place]. Continuehome bupropion, buspirone, Depakote, prazosin, Seroquel, Chlorpromazine.??Per patient??his psychiatrist??restarted??Lexapro 20 mg daily and Abilify??30 mg daily??which we will continue. ?? Hypothyroidism (E03.9): Continue levothyroxine ?? Opiate dependence, continuous (F11.20):??He is on methadone 100 mg, follows with [facility], we have increased the dose to 110 mg. ?? Alcohol use disorder, moderate, in early remission (F10.21): Noted ?? Lower extremity edema:??Has been on Bumex 2 mg twice daily,??he does not seem to be overloaded hence we have advised to decrease Bumex to 1 mg daily. Weight on discharge is 269lb which has improved from before (294lb). Vital Signs?? Temperature: 97.3 DegF (03/26/23 08:56:00) Temperature Route: Oral (03/26/23 08:56:00) Pulse Rate: 86 bpm (03/26/23 08:56:00) Respiratory Rate: 18 br/min (03/26/23 08:56:00) Systolic Blood Pressure: 109 mm Hg (03/26/23 08:56:00) Diastolic Blood Pressure: 65 mm Hg (03/26/23 08:56:00) Blood pressure sites: Arm, left (03/26/23 08:56:00) Mean Arterial Pressure: 80 mm Hg (03/26/23 08:56:00) Pulse Pressure: 44 mm Hg (03/26/23 08:56:00) Oxygen Saturation: 100 % (03/26/23 08:56:00) Mode of Delivery (Oxygen): Room air (03/26/23 08:56:00) Early Warning Score: 2 (03/26/23 08:57:05) ? . Physical Exam Constitutional: Alert, in no distress. Oriented??x 3 Respiratory: Clear to auscultation. No wheezing, rales or rhonchi. Cardiovascular: S1 S2 regular. No murmurs Gastrointestinal: Abdomen soft, no abdominal tenderness, non-distended. Normal bowel sounds. Skin:??Left lower extremity anteriorly has??small??chronic venous ulcer, no active bleeding Neurologic: Moving all extremities Psychiatric: Normal mood and affect Pending Results Transfuse RBCs ordered on 03/24/2023 Transfuse RBCs ordered on 03/24/2023 Transfuse RBCs ordered on 03/25/2023 Follow-Up Appointments Added Follow Up ?Time Frame ?Comments Not on Staff, PCP Patient Instructions You were admitted to the hospital??due to bleeding from your leg, you had been taking an elevated dose of??Xarelto??which could have resulted in the bleeding. ??You do have a small ulcer??over the left leg, this will need to be followed??by vascular surgery. ?? New medication: ?Please take ferrous sulfate 325 mg??once every other day, please have your primary care physician check your iron levels??in 6 weeks. ?? Change medication: ??? We have decreased??bumetanide (Bumex)??to 1 mg (half tablet)??twice daily, previously over taking 2 mg twice daily ?We have increased methadone 110 mg??daily ?? Make sure that you take Xarelto 20 mg??in the evening,??once daily ?? Follow-up with Dr. Nolne's??office (vascular surgeon) [phone].?Also follow-up with the primary care physician ?? Please call wound clinic in [place] [phone] Post Discharge Care Condition: ??fair ?? Prognosis: ??Fair ?? Discharge ?03/26/23 9:59:00 EST Discharge Prescriptions ?ePrescribed, 03/26/23 9:59:00 EST Home Health Face to Face ^HomeHealthFTF Results Discharge Labs BLOOD BANK Blood Type O Positive ()?? 03/25/2023 16:55 Antibody Screen Negative ()?? 03/25/2023 16:55 Transfusion Reaction Workup Provisional Dx: No Hemolytic Rxn; Rpt to follow. ()?? 03/24/2023 16:47 RBC Unit ID [id number] ()?? 03/25/2023 07:29 RBC Available PT ()?? 03/25/2023 07:29 ? BLOOD COUNT & DIFF WBC 5.7 k/mm3 ()?? 03/26/2023 05:26 RBC 2.73 m/mm3 (Low)?? 03/26/2023 05:26 Hgb 7.3 Gm/dL (Low)?? 03/26/2023 05:26 Hct 23.1 % (Low)?? 03/26/2023 05:26 MCV 84.6 femtoliters ()?? 03/26/2023 05:26 MCH 26.7 pg (Low)?? 03/26/2023 05:26 MCHC 31.6 g/dL (Low)?? 03/26/2023 05:26 Platelet Count 251 k/mm3 ()?? 03/26/2023 05:26 RDW-SD 47.0 femtoliters (High)?? 03/26/2023 05:26 MPV 9.1 femtoliters (Low)?? 03/26/2023 05:26 Nucleated RBC (Automated) 0.3 #/100 WBC'S ()?? 03/26/2023 05:26 Abs. NRBC 0.0 k/mm3 ()?? 03/26/2023 05:26 Abs. Neut 3.3 k/mm3 ()?? 03/24/2023 07:42 Abs. Lymph 1.1 k/mm3 ()?? 03/24/2023 07:42 Abs. [place] 0.6 k/mm3 ()?? 03/24/2023 07:42 Abs. Eo 0.3 k/mm3 ()?? 03/24/2023 07:42 Abs. Baso 0.1 k/mm3 ()?? 03/24/2023 07:42 Neut % 60.9 % ()?? 03/24/2023 07:42 Lymph % 20.6 % ()?? 03/24/2023 07:42 [place] % 11.1 % (High)?? 03/24/2023 07:42 Eos % 4.8 % ()?? 03/24/2023 07:42 Baso % 0.9 % ()?? 03/24/2023 07:42 Imm Gran 1.7 % ()?? 03/24/2023 07:42 Abs. Imm Gran 0.1 k/mm3 ()?? 03/24/2023 07:42 ?? CARDIAC Nt-Probnp 37 pg/mL ()?? 03/24/2023 14:42 High Sensitivity Troponin (HSTnT) 10 ng/L ()?? 03/24/2023 17:35 ?? CHEM GENERAL Sodium 136 mmol/L ()?? 03/25/2023 04:53 Potassium 3.7 mmol/L ()?? 03/25/2023 04:53 Chloride 97 mmol/L (Low)?? 03/25/2023 04:53 Bicarbonate Level 30 mmol/L (High)?? 03/25/2023 04:53 Anion Gap 9 ()?? 03/25/2023 04:53 Glucose Level 137 mg/dL (High)?? 03/25/2023 04:53 BUN 16 mg/dL ()?? 03/25/2023 04:53 Creatinine-Blood 0.8 mg/dL ()?? 03/25/2023 04:53 Estimated GFR Creatinine 115 ML/MIN/1.73 M2 ()?? 03/25/2023 04:53 Calcium 8.3 mg/dL (Low)?? 03/25/2023 04:53 ?? HEME OTHER Hold Lavender Top SPECIMEN DISCARDED AFTER 24 HOURS. ()?? 03/25/2023 04:53 ? MISC. CHEMISTRY Hold Green Top SPECIMEN DISCARDED AFTER 1 WEEK ()?? 03/26/2023 05:26 Hold Red Top SPECIMEN DISCARDED AFTER 1 WEEK ()?? 03/24/2023 14:42 Hold Gel Top SPECIMEN DISCARDED AFTER 1 WEEK ()?? 03/25/2023 15:03 ? UA/URINALYSIS Appear/Color, Urine YELLOW ()?? 03/25/2023 16:20 Clarity CLEAR ()?? 03/25/2023 16:20 Specific [place], Urine 1.020 ()?? 03/25/2023 16:20 pH, Urine 6.0 ()?? 03/25/2023 16:20 Albumin, Urine NEGATIVE ()?? 03/25/2023 16:20 Glucose, Urine NEGATIVE ()?? 03/25/2023 16:20 Ketones, Urine NEGATIVE ()?? 03/25/2023 16:20 Bilirubin, Urine NEGATIVE ()?? 03/25/2023 16:20 Hemoglobin, Urine NEGATIVE ()?? 03/25/2023 16:20 Nitrite, Urine NEGATIVE ()?? 03/25/2023 16:20 Leukocyte, Urine NEGATIVE ()?? 03/25/2023 16:20 Urobilinogen NORMAL mg/dL ()?? 03/25/2023 16:20 ?? URINE OTHER Est Creatinine Clearance 134.91 mL/min ()?? 03/24/2023 08:09 ? Imaging(s) ?Chest 2 Views Frontal and Lat ?? 03/24/2023 15:31??by Katelyn Kaufman MD ?Impression: ?? There is no acute cardiopulmonary disease. ? 35??minutes spent on discharge * Fanny Zacarias RN: PERFORM Event Display: Patient Education/Instruction Authored Date: [id number] Inpatient Adult Discharge Instructions [address] [address] Name: VAHID TO : 1980 Visit: 03/24/2023 09:43:00 Current Date: 03/26/2023 10:03 Account: [id number] Inpatient Adult Discharge Instructions We would like [...] and their families. Surveys are administered by [employer] ?? If further treatment with your primary care physician or another doctor is recommended, it is important for you to keep the appointment. Call your primary care physician or return to the Emergency Department immediately if your condition worsens, fails to improve, or new symptoms develop. If you need to find a doctor, you can call [facility] for a referral at [phone] or toll free at [phone]) or log in to [email or web address].. ?? [facility], in keeping with [facility] guidance, no longer requires face masks for staff, patientsor visitors in most situations. Similiar to time spent indoors at other locations, there is the chance that you were exposed to repiratory viruses during your time with us (such as flu or COVID-19). If you develop symptoms concerning for a viral respiratory infection, please seek testing (and treatment if indicated) from your medical provider or home test kit. ?? You can view and manage your care through the patient portal or by using a health care alden of your choosing. [employer] is a website that allows you to securely view your medical information including your hospital discharge summary, office visit summaries, medications and follow-up visits. You can also request appointments, renew medications, and request access to your medical information using a health care alden of your choosing, or just ask a question. You can enroll at [email or web address] or register during your next office visit. You have been discharged from [facility], Patient Care Unit: Med Surg. If you have any questions regarding these instructions after you leave, please call us and we will be happy to assist you. [facility] Your Care Team Attending Physician Mary Reyes MD Discharging Providers Amy HENDERSON, Mary Reason for Admission Bleeding Varicose vein Your Diagnosis Chronic pain syndrome Chest pain Acute anemia Ulcer of extremity due to chronic venous insufficiency Bilateral leg edema DVT (deep venous thrombosis) Iron deficiency anemia CYNTHIA (generalized anxiety disorder) Schizoaffective disorder, bipolar type Antisocial personality disorder in adult Difficulty voiding Opioid dependence Alcohol use disorder Hypothyroidism Tests Performed Below is a partial list of the tests performed during your hospitalization. You may have had other tests and procedures not included in this list. Please discuss all test results with your provider. BUN Calcium Level CBC CBC w/ Differential Creatinine Electrolytes Glucose Level H + H HOLD GEL TUBE HOLD GREEN TUBE HOLD LAVENDER TUBE HOLD RED TUBE PROBNP Transfusion Reaction Workup Troponin T, High Sensitivity Type and Screen Urinalysis [facility] CXR W/ Frontal and Lat Primary Care Provider Not on Staff, PCP Advance Directive Health Care Proxy on File Yes - Health Care Proxy Discharge Vitals Temperature: 97.3 DegF Height: 183 cm Pulse Rate: 86 bpm Weight: 126.6 kg Respiratory Rate: 18 br/min Body Mass Index:??37.8 kg/m2??Critical Systolic Blood Pressure: 109 mm Hg Body surface area: 2.54 Diastolic Blood Pressure: 65 mm Hg ?? Oxygen Saturation: 100 % ?? Studies Pending All tests and labs ordered during this hospital stay have been completed unless listed below. Please discuss all pending results with your provider listed above in these instructions. ?? Transfuse RBCs What to do next Instructions From Your Doctor You were admitted to the hospital??due to bleeding from your leg, you had been taking an elevated dose of??Xarelto??which could have resulted in the bleeding. ??You do have a small ulcer??over the left leg, this will need to be followed??by vascular surgery. ?? New medication: ?Please take ferrous sulfate 325 mg??once every other day, please have your primary care physician check your iron levels??in 6 weeks. ?? Change medication: ??? We have decreased??bumetanide (Bumex)??to 1 mg (half tablet)??twice daily, previously over taking 2 mg twice daily ?We have increased methadone 110 mg??daily ?? Make sure that you take Xarelto 20 mg??in the evening,??once daily ?? Follow-up with Dr. Nolen's??office (vascular surgeon) [phone].?Also follow-up with the primary care physician ?? Please call wound clinic in [place] [phone] Discharge Orders Condition:??fair Prognosis:??Fair Scheduled Follow-Up Appointments Wednesday 8:20 AM EDT ?? With: Jer WAITE, Tania Villalpando Where: [address] [address]- Status: Pending You Need to Schedule the Following Appointments Follow Up with??Not on Staff, PCP Discharge Medications VAHID TO :1980 Visit Date:03/24/2023 Medications: Please continue your medications until treatment is completed or stopped by your provider. Medications not listed below should be discontinued. Discuss any questions related to medications with your provider. What How Much When Why Instructions Next Dose New Methadone 110 Milligram Oral Daily tomorrow morning Changed Bumetanide (bumetanide 1 mg oral tablet) 1 tab(s) Oral Twice a day tonight Changed Ferrous Sulfate (ferrous sulfate 325 mg oral enteric coated tablet) 325 Milligram Oral Every other day Duration: 30 Days Pickup at [facility][id number] tomorrow morning Changed rivaroxaban (rivaroxaban 20 mg oral tablet) 20 Milligram Oral Daily at supper 5pm daily Unchanged Ammonium Lactate 12% (ammonium lactate 12% topical cream) See instructions Apply to lower legs and feet 2 times a day, avoiding open areas ?? tonight Unchanged Aripiprazole (Abilify 30 mg oral tablet) 1 tab(s) Oral Daily tomorrow morning Unchanged Bethanechol (bethanechol 25 mg oral tablet) 25 Milligram Oral 4 times a day 9am, 1pm, 5pm and 9pm Unchanged BuPROpion (buPROPion 300 mg/ 24 hours (XL) oral tablet, extended release) 1 tab(s) Oral Daily tomorrow morning Unchanged BusPIRone (busPIRone 30 mg oral tablet) 1 tab(s) Oral Twice a day tonight Unchanged ChlorproMAZINE (chlorproMAZINE 50 mg oral tablet) 1 tab(s) Oral 3 times a day 9am, 5pm, 9pm Unchanged Divalproex Sodium (Depakote ER 250 mg oral tablet, extended release) 1 tab(s) Oral Daily Total daily dose is 1750 ?? 5:50pm Unchanged Divalproex Sodium (Depakote ER 500 mg oral tablet, extended release) 3 tab(s) Oral Daily total dose is 1750 QD ?? 5:50pm Unchanged Escitalopram (escitalopram 20 mg oral tablet) 1 tab(s) Oral Daily tomorrow morning Unchanged Levothyroxine (levothyroxine 75 mcg (0.075 mg) oral tablet) 75 Microgram Oral Daily tomorrow morning Unchanged Pantoprazole (pantoprazole 40 mg oral delayed release tablet) 40 Milligram Oral Daily tomorrow morning Unchanged Potassium Chloride (potassium chloride 20 mEq oral tablet, extended release) 1 tab(s) Oral Daily tomorrow morning Unchanged Prazosin (prazosin 5 mg oral capsule) 1 capsule Oral Twice a day tonight Unchanged Pregabalin (pregabalin 150 mg oral capsule) 1 capsule Oral Twice a day Chronic pain syndrome tonight Unchanged Promethazine (promethazine 25 mg oral tablet) 0.5 Each Oral Every 6 hours as needed for Nausea & Vomiting as needed Unchanged Quetiapine (SEROquel 25 mg oral tablet) 50 Milligram Oral Every 8 hours as needed for Anxiety as needed Unchanged Senna (Senna 8.6 mg oral tablet) 1 tab(s) Oral Daily at Bedtime tonight Unchanged Tamsulosin (tamsulosin 0.4 mg oral capsule) 0.4 Milligram Oral Daily tomorrow morning Unchanged Tizanidine (tiZANidine 2 mg oral tablet) 1 tab(s) Oral 3 times a day as needed for Spasm as needed Pharmacy Information [facility] #[id number]: [address], [place] [id number] [phone] Test Results Below is a partial list of the most recent Laboratory test results done prior to this discharge. You may have had other tests and procedures not included in this list. Please discuss all test resultswith your provider. Antibody Screen - Negative (03/25/2023) Blood Type - O Positive (03/25/2023) Est Creatinine Clearance - 134.91 mL/min (03/24/2023) RBC Available - PT (03/25/2023) RBC Unit ID - [id number] (03/25/2023) BUN (03/25/2023) ???BUN - 16 mg/dL Calcium Level (03/25/2023) ???Calcium - 8.3 mg/dL CBC (03/26/2023) ???WBC - 5.7 k/mm3???RBC - 2.73 m/mm3???Hgb - 7.3 Gm/dL???Hct - 23.1 %???MCV - 84.6 femtoliters???MCH - 26.7 pg???MCHC - 31.6 g/dL???Platelet Count - 251 k/mm3???RDW-SD - 47.0 femtoliters???MPV - 9.1femtoliters???Nucleated RBC (Automated) - 0.3 #/100 WBC'S???Abs. NRBC - 0.0 k/mm3 CBC w/ Differential (03/24/2023) ???WBC - 5.4 k/mm3???RBC - 2.74 m/mm3???Hgb - 7.0 Gm/dL???Hct - 22.9 %???MCV - 83.6 femtoliters???MCH - 25.5 pg???MCHC - 30.6 g/dL???Platelet Count - 262 k/mm3???RDW-SD - 48.9 femtoliters???MPV - 9.5femtoliters???Nucleated RBC (Automated) - 0.0 #/100 WBC'S???Abs. NRBC - 0.0 k/mm3???Abs. Neut - 3.3 k/mm3???Abs. Lymph - 1.1 k/mm3???Abs. [place] - 0.6 k/mm3???Abs. Eo - 0.3 k/mm3???Abs. Baso - 0.1 k/mm3???Neut % - 60.9 %???Lymph % - 20.6 %???[place] % - 11.1 %???Eos % - 4.8 %???Baso % - 0.9 %???Imm Gran- 1.7 %???Abs. Imm Gran - 0.1 k/mm3 Creatinine (03/25/2023) ???Creatinine-Blood - 0.8 mg/dL???Estimated GFR Creatinine - 115 ML/MIN/1.73 M2 Electrolytes (03/25/2023) ???Sodium - 136 mmol/L???Potassium - 3.7 mmol/L???Chloride - 97 mmol/L???Bicarbonate Level - 30 mmol/L???Anion Gap - 9 Glucose Level (03/25/2023) ???Glucose Level - 137 mg/dL H + H (03/24/2023) ???Hgb - 7.2 Gm/dL???Hct - 23.3 % HOLD GEL TUBE (03/25/2023) ???Hold Gel Top - SPECIMEN DISCARDED AFTER 1 WEEK HOLD GREEN TUBE (03/26/2023) ???Hold Green Top - SPECIMEN DISCARDED AFTER 1 WEEK HOLD LAVENDER TUBE (03/25/2023) ???Hold Lavender Top - SPECIMEN DISCARDED AFTER 24 HOURS. HOLD RED TUBE (03/24/2023) ???Hold Red Top - SPECIMEN DISCARDED AFTER 1 WEEK PROBNP (03/24/2023) ???Nt-Probnp - 37 pg/mL Transfusion Reaction Workup (03/24/2023) ???Transfusion Reaction Workup - Provisional Dx: No Hemolytic Rxn; Rpt to follow. Troponin T, High Sensitivity (03/24/2023) ???High Sensitivity Troponin (HSTnT) - 10 ng/L Type and Screen (03/24/2023) ???Blood Type - O Positive???Antibody Screen - Negative Urinalysis [facility] (03/25/2023) ???Appear/Color, Urine - YELLOW???Clarity - CLEAR???Specific [place], Urine - 1.020???pH, Urine - 6.0???Albumin, Urine - NEGATIVE???Glucose, Urine - NEGATIVE???Ketones, Urine - NEGATIVE???Bilirubin, Urine - NEGATIVE???Hemoglobin, Urine - NEGATIVE???Nitrite, Urine - NEGATIVE???Leukocyte, Urine - NEGA TIVE???Urobilinogen - NORMAL Allergies (NKA means No Known Allergies) OLANZapine Remeron Zoloft ZyPREXA sertraline??(Fluoxetine, Fluoxetine) traZODone Problems Active Problems??(19) Alcohol use disorder, moderate, in early remission?? Allergic rhinitis?? Antisocial personality disorder in adult?? Asthma?? Bilateral lower limb edema?? Bipolar disorder with depression?? Chronic obstructive lung disease?? Chronic pain syndrome?? DVT of popliteal vein?? Generalized anxiety disorder?? GERD (gastroesophageal reflux disease)?? Hypothyroidism?? Iron deficiency anemia?? Opioid dependence?? Polysubstance dependence?? PTSD (post-traumatic stress disorder)?? Schizoaffective disorder, bipolar type?? Severe obesity (BMI 35.0-39.9) with comorbidity?? Tricompartment osteoarthritis of both knees?? Education Materials Below is the list of Educational Leaflet Providered with your Discharge Instructions. Valuables and Belongings I fully understand and agree that [facility] accepts no responsibility for all my [...] to send valuables and belongings home. ?? Review of Valuable and Belonging List: With patient Date for Pt to Sign Valuables/Belongings: 03/25/23 15:54:00 ?? Other Discharge Information ? Pulmonary Rehab Status?? Pulmonary Rehab Discharge [...] are strongly encouraged to quit. Please call [facility] Link at [phone] or [phone] ([phone]) or log in to [email or web address] for referrals to smoking cessation programs. ?? 751 Suicide & Crisis Lifeline is available 05/10 if you or someone you know needs to find a reason to keep living. By calling 003 you'll be connected to a skilled, trained counselor at a crisis center in your area. INPATIENT DISCHARGE INSTRUCTIONS SIGNATURE PAGE VAHID TO Location:[facility] Registration Date and Time:03/24/2023 09:43 EST Primary Care Physician: Not on Staff, PCP Attending Physician: Amy HENDERSON, [facility], I YOUSUFVAHID, have received the above patient education materials/instructions and have verbalized understanding. If ambulance or transport services are being used I further acknowledge being givena choice of service. ?? If you need to contact me, please call me at this number: . Patient/Price Lister Name: Patient/Price Lister Signature: Relationship to Patient: Witness Name/Signature: Date: * Fanny Zacarias RN: PERFORM Event Display: Patient Education Leaflets Authored Date: [id number] Anemia ?? [address] Anemia Anemia is a condition that occurs when your body doesn't have enough healthy red blood cells (RBCs). RBCs are the parts of your blood that carry oxygen all over your body. A protein called hemoglobinallows your RBCs to absorb and release oxygen. Without enough RBCs or hemoglobin, your body doesn'tget enough oxygen. Symptoms of anemia may then occur. What are the symptoms of anemia? Some people with anemia have no symptoms. But most people have symptoms that range from mild to severe. These can include: ??? Extreme tiredness (fatigue) ??? Weakness ??? Pale skin ??? Shortness of breath ??? Feeling dizzy or fainting ??? Rapid or irregular heartbeat ??? Trouble doing normal amounts of activity ??? Yellowing of your eyes, skin, or mouth and dark urine (jaundice) ??? Headache ???Cold hands or feet ??? Chest pain ??? Pounding or whooshing sound in your ears ?? What causes anemia? Anemia can occur when your body: ??? Loses too much blood ??? Doesn't make enough RBCs ??? Destroys your RBCs at a faster rate than it can replace them ??? Doesn't make a normal amount of hemoglobin in your RBCs These problems can occur for many reasons, including: ??? A condition that you're born with (congenital or inherited), such as sickle cell disease or thalassemia ??? Heavy bleeding for any reason, including injury, surgery, childbirth, or even heavy menstrual periods ??? Being low in certain nutrients, such as iron, folate, or vitamin B-12 ??? Certainlong-term (chronic) conditions such as diabetes, arthritis, or kidney disease ??? Certain chronic in fections such as tuberculosis or HIV ??? Exposure to certain medicines, such as those used for chemotherapy There are different types of anemia. Your healthcare provider can tell you more about the type of anemia you have and what may have caused it. ?? How is anemia diagnosed? To diagnose anemia, your healthcare provider orders blood tests. These can include: ??? Complete blood cell count (CBC). This test measures the amounts of the different types of blood cells. ??? Blood smear. This test checks the size and shape of your blood cells. To do the test, a drop of your blood is looked at under a microscope. A stain is used to make the blood cells easier to see. ??? Iron studies. These tests measure the amount of iron in your blood. Your body needs iron to make hemoglobin in your RBCs. ??? Vitamin B-12 and folate studies. These tests check for some of the components that help give RBCs a normal size and shape. ??? Reticulocyte count. This test measures the amount ofnew RBCs that your bone marrow makes. ??? Hemoglobin electrophoresis. This test checks for problemswith your hemoglobin in RBCs. ??? Lactate dehydrogenase (LDH) and haptoglobin levels. These tests check the amount of substances in your blood called LDH and haptoglobin. Both LDH and haptoglobin levels can be abnormal with a type of anemia that destroys red blood cells (hemolytic anemia). ??? Bone marrow biopsy. This test evaluates the bone marrow where RBCs are made. ?? How is anemia treated? Treatment for anemia is based on the type of anemia, its cause, and the severity of your symptoms. Treatments may include: ??? Diet changes. This includes increasing the amount of certain nutrients in your diet, such as iron, vitamin B-12, or folate. Your healthcare provider may also prescribe nutrient supplements. ??? Medicines. Certain medicines treat the cause of your anemia. Others help buildnew RBCs or ease symptoms. If a medicine is the cause of your anemia, you may need to stop or change it. ??? Blood transfusions. Replacing some of your blood can increase the number of healthy RBCs in your body. ??? Surgery. In some cases, your healthcare provider may do surgery to treat the underlying cause of anemia. If you need surgery, your healthcare provider will explain the procedure and outline the risks and benefits for you. ?? What are the long-term concerns? If you have a certain type of anemia, you can expect a full recovery after treatment. If you have other types of anemia (especially a type you're born with), you'll need to manage it for life. Your healthcare provider can tell you more. ?? Last Reviewed Date: 2021 ?? [id number] [employer]. All rights reserved. This information is not intended as a substitute for professional medical care. Always follow your healthcare professional's instructions. ?? Patient Care team information Care Team Personnel Name: Konrad Gallegos RN Position: [facility] ED RN W/OE and Tasks Member Role: Primary Care Nurse Name: Anna Weaver RN Position: [facility] RN Member Role: Primary Care Nurse Name: Niki Bright RN Position: [facility] RN Member Role: Primary Care Nurse Name: Fang Che Position: [facility] RN Member Role: Primary Care Nurse Name: Trisha Alamo RN Position: [facility] RN Supv Member Role: Primary Care Nurse Name: Rita Son NP Position: [facility] Associate Professional Member Role: Primary Care Nurse Address: Address: [address] [place] [address] Name: Sol Chanel RN Position: [facility] RN Member Role: Primary Care Nurse Name: Helene Pérez RN Position: [facility] RN Member Role: Primary Care Nurse Name: Brenda Cuba RN Position: [facility] HBO Wound Member Role: Primary Care Nurse Name: Kell Alonso RN Position: [facility] ED RN W/OE and Tasks Member Role: Primary Care Nurse Name: Belen Tesfaye RN Position: [facility] RN Member Role: Primary Care Nurse Name: Richa Clay LPN Position: [facility] RN Member Role: Primary Care Nurse Name: Aury Pandya RN Position: [facility] RN Member Role: Primary Care Nurse Name: Prisca Meng RN Position: [facility] RN Member Role: Primary Care Nurse Name: Екатерина Chacko RN Position: [facility] RN Member Role: Primary Care Nurse Name: Sadaf Tubbs RN Position: [facility] RN Member Role: Primary Care Nurse Name: Arjun Malagon RN Position: [facility] RN Member Role: Primary Care Nurse Name: Not on Staff, PCP Position: [facility] Physician (General Medicine) Member Role: PCP Name: Milo Leonard RN Position: [facility] RN Member Role: Primary Care Nurse Name: Anna Oconnor RN Position: [facility] Condu[employer] Helper Member Role: Primary Care Nurse Name: Dalila Cerda RN Position: [facility] RN Member Role: Primary Care Nurse Name: Shamar Lynn RN Position: [facility] RN Member Role: Primary Care Nurse Name: Kip Gonzalez RN Position: [facility] RN Member Role: Primary Care Nurse Address: Address: [address] [place] [address]- Name: April Acuña RN Position: [facility] RN Member Role: Primary Care Nurse Name: Li Esquivel RN Position: [facility] [employer]per Member Role: Primary Care Nurse Name: Tunde White MD Position: [facility] Physician - [facility] Member Role: [employer] Consulting Physician Address: Address: [address] [place] [id number]- Name: Betty GUERRERO Attending Position: [facility] ED Medicine MD Name: Mary Stallworth RN Position: [facility] ED RN W/OE and Tasks Member Role: Patient Care Provider Name: Adalgisa Cox Position: [facility] ED TA [facility] Member Role: Patient Care Provider Care Team Related Persons Name: FORREST TO Address: [address] [address] Name: MÓNICA CREWS
--- OUTSIDE RECORDS SUMMARY | 2023-05-04 10:46 | XMS_ITS | Continuity of Care Document ---
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 Start Date: 03/12/23 Status: Ordered bethanechol 25 mg oral tablet 25 mg, By Mouth, 4 times a day, # 120 tablet, Refills 0, Tot. Refills 0, Maintenance, 03/12/23 14:02:00 EST, Route to Pharmacy Electronically, [facility] #[id number], 183, cm, 03/12/23 5:13:00 EST, Height, 125.2, kg, 02/22/23 14:00:00 EST, Dry We... Start Date: 03/12/23 Status: Ordered buPROPion 300 mg/24 hours (XL) oral tablet, extended release 1 tablet = 300 mg, By Mouth, Daily, # 30 tablet, 0 Refills, Maintenance, 03/12/23 15:02:00 EST, XL Tablet, [facility] #[id number], 183, cm, 03/12/23 5:13:00 EST, Height, 125.2, kg, 02/22/23 14:00:00 EST, Dry Weight Start Date: 03/12/23 Status: Ordered busPIRone 30 mg oral tablet 1 tablet = 30 mg, By Mouth, 2 times a day, # 60 tablet, 0 Refills, Maintenance, 03/12/23 15:02:00 EST, Tablet, [facility] #[id number], 183, cm, 03/12/23 5:13:00 EST, Height, 125.2, [...] Refills, Maintenance, 03/12/23 13:59:00 EST, ER Tablet, [facility] #[id number], 183, cm, 03/12/23 5:13:00 EST, Height, 125.2, kg, 02/22/23 14:00:00 EST, Dry Weight Start Date: 03/12/23 Status: Ordered Depakote ER 500 mg oral tablet, extended release 3 tablet = 1,500 mg, By Mouth, Daily, total dose is 1750 QD, # 90 tablet, 0 Refills, Maintenance, 03/12/23 13:58:00 EST, ER Tablet, [facility] #[id number], 183, cm, 03/12/23 5:13:00 EST, Height,125.2, kg, [...] 03/26/23 9:50:00 EST, Route to Pharmacy Electronically, [facility] #[id number], Partial fill upon patient request if the prescription is for a schedule II opioi... Start Date: 03/26/23 Stop Date: 04/25/23 Status: Ordered furosemide 80 mg oral tablet 80 mg, 1, tablet, By Mouth, Daily, # 30 tablet, Refills 0, Tot. Refills 0, Maintenance, 04/25/23 14:19:00 EST, Route to Pharmacy Electronically, [facility] #[id number], Partial fill upon patientrequest if the prescription is for a schedule II op... Start Date: 04/25/23 Status: Ordered furosemide 80 mg oral tablet 80 mg, 1, tablet, By Mouth, 2 times a day, # 14 tablet, Refills 0, Tot. Refills 0, Maintenance, 04/02/23 13:37:00 EST, Route to Pharmacy Electronically, [facility] #[id number], Partial fill uponpatient request if the prescription is for a schedu... Start Date: 04/02/23 Stop Date: 04/09/23 Status: Ordered levothyroxine 75 mcg (0.075 mg) oral tablet = 75 mcg, By Mouth, Daily, # 30 tablet, 0 Refills, Maintenance, 03/12/23 14:00:00 EST, Tablet, [facility] #[id number], 183, cm, 03/12/23 5:13:00 EST, Height, 125.2, kg, 02/22/23 14:00:00 EST, Dry Weight Start Date: 03/12/23 Status: Ordered Methadone = 110 mg, By Mouth, Daily, 0 Refills, Maintenance, 03/26/23 9:50:00 EST, Tablet, Partial fill upon patient request if the prescription is for a schedule II opioid drug. Start Date: 03/26/23 Status: Ordered naproxen 500 mg oral delayed release tablet 1 tablet = 500 mg, By Mouth, 2 times a day, for 30 days, # 60 tablet, 0 Refills, Acute 05/01/23 14:40:00 EST, 04/01/23 14:40:00 EST, EC Tablet, [facility] #[id number], Partial fill upon patient request if the prescription is for a schedule II opi... Start Date: 04/01/23 Stop Date: 05/01/23 Status: Ordered pantoprazole 40 mg oral delayed [...] Refills, Maintenance, 03/14/23 9:00:00 EST, ER Tablet, [facility] #[id number], 183, cm, 03/13/23 7:38:00 EST, Height, 125.2, kg, 02/22/23 14:00:00 EST, Dry Weight Start Date: 03/14/23 Status: Ordered prazosin 5 mg oral capsule 5 mg, 1, capsule, By Mouth, 2 times a day, # 60 capsule, Refills 0, Tot. Refills 0, Maintenance, 03/12/23 14:03:00 EST, Route to Pharmacy Electronically, [facility] #[id number], Partial fill upon patient request if the prescription is for a sched... Start Date: 03/12/23 Status: Ordered pregabalin 150 mg oral capsule 1 capsule = 150 mg, By Mouth, 2 times a day, # 180 capsule, 0 Refills, Maintenance, 01/27/23 10:33:00 EST, Capsule, [facility] #[id number], Partial fill upon patient request if the prescription is for a schedule II opioid drug., 183, cm, 01/27/23... Start Date: 01/27/23 Status: Ordered promethazine 25 mg oral tablet 0.5 each = 12.5 mg, By Mouth, Every 6 hours, PRN Nausea & Vomiting, # 20 tablet, 0 Refills, Maintenance, 03/12/23 19:26:00 EST, Tablet, [facility] #[id number], 183, cm, 03/12/23 5:13:00 EST,Height, 125.2, kg, 02/22/23 14:00:00 EST, Dry Weight Start Date: 03/12/23 Status: Ordered rivaroxaban 20 mg oral tablet = 20 mg, By Mouth, Daily at supper, # 30 tablet, 0 Refills, Maintenance, 04/01/23 15:05:00 EST, Tablet, [facility] #[id number], 183, cm, 03/12/23 5:13:00 EST, Height, 125.2, kg, 02/22/23 14:00:00 EST, Dry Weight Start Date: 04/01/23 Status: Ordered Senna 8.6 mg oral tablet 8.6 mg, 1, tablet, By Mouth, Daily at bedtime, # 30 tablet, Refills 0, Tot. Refills 0, Maintenance,03/12/23 15:04:00 EST, Route to Pharmacy Electronically, [facility] #[id number] Tablet, 183, cm, 03/12/23 5:13:00 EST, Height, 125.2, kg, 02/22/23... Start Date: 03/12/23 Status: Ordered SEROquel 25 mg oral tablet 50 mg, By Mouth, Every 8 hours, PRN, # 90 tablet, Refills 0, Tot. Refills 0, Maintenance, Anxiety, 03/12/23 14:05:00 EST, Route to Pharmacy Electronically, [facility] #[id number], 183, cm, 03/12/23 5:13:00 EST, Height, 125.2, kg, 02/22/23 14:00:0... Start Date: 03/12/23 Status: Ordered tamsulosin 0.4 mg oral capsule 0.4 mg, By Mouth, Daily, # 30 capsule, Refills 0, Tot. Refills 0, Maintenance, 03/12/23 15:06:00 EST, Route to Pharmacy Electronically, [facility] #[id number], 183, cm, 03/12/23 5:13:00 EST, Height, 125.2, kg, 02/22/23 14:00:00 EST, Dry Weight Start Date: 03/12/23 Status: Ordered tiZANidine 2 mg oral tablet 2 mg, 1, tablet, By Mouth, 3 times a day, PRN, # 30 tablet, Refills 0, Tot. Refills 0, Maintenance,Spasm, 03/12/23 19:27:00 EST, Route to Pharmacy Electronically, [facility] #[id number], ., 183, cm, 03/12/23 5:13:00 EST, Height, [...] Active Opioid dependence 1 Confirmed 04/28/18 Active PTSD (post-traumatic stress disorder) Confirmed Active Schizoaffective disorder, bipolar type 2 Confirmed 03/03/18 Active Severe obesity (BMI 35.0-39.9) with comorbidity Confirmed Active Ulcer of skin Confirmed Active DVT of popliteal vein Confirmed [...] suboxone- but denies any recent use. 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 Will continue Suboxone 8-2mg bid at this time. Not interested in tx program at this time. CTM. 2Outside Source Comment: Last Assessment & Plan: Recent inpt psych hospitalization in [facility]. Denies any SI/HI at this time but very anxious about medications. DW pt no dose adjustments at this time and will need to connect with psych at [facility]- no current psych provider. Pt contracts for safety. Pt did come with rx avail- but sh ort on lorazepam. Will fill at this time but ensure has prescriber on d/c. BH met with pt todayand psych referral placed. Administration aware. Vital Signs Most recent to oldest [Reference Range]: 1 2 Height 183 cm (04/30/23 7:34 PM) 183 cm (04/30/23 7:21 PM) Weight 127 kg (04/30/23 7:34 PM) 127 kg (04/30/23 7:21 PM) Oxygen Saturation [94-100 %] 100 % (2/16/24 7:34 PM) Pulse Rate [55-90 bpm] 88 bpm (04/30/23 7:34 PM) Body Mass Index [18.5-24.99 kg/m2] 37.92 kg/m2 *>HHI* (04/30/23 7:34 PM) Blood Pressure [90-138/55-84 mm Hg] 119/ 66mm Hg (04/30/23 7:34 PM) Respiratory Rate [16-30 br/min] 22 br/mi n (04/30/23 7:34 PM) Temperature [96.8-100.4 DegF] 98.0 DegF (04/30/23 7:34 PM) Mode of Delivery (Oxygen) Room air (04/30/23 7:34 PM) Blood pressure sites Arm, left (04/30/23 7:34 PM) Temperature Route Oral (04/30/23 7:34 PM) Dry Weight 127 kg (04/30/23 7:34 PM) 127 kg (04/30/23 7:21 PM) Weight Obtained Via Patient/family state d (04/30/23 7:21 PM) Dry Weight Obtained Via Patient/family s tated (04/30/23 7:21 PM) Social History Social History Type Response Tobacco Use: 4 or less cigar ettes(less than 1/4 pack)/day in last 30 days. Sex Implantable Device List Procedure Provider Procedure Date Device Type Site Repair Hernia Ventral Laparoscopic Gus Vivas MD 09/13/20 Unknown Abdomen Device Identifier Serial Number Lot or Batch Number Manufacturing Date Expiration Date Distinct Identification Code MRI Safety Implantable Status 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 [id number] Unknown [id number] 2 Unknown 03/11/21 Unknown Unknown Active GS1 Note * Mansoor Swann MD: PERFORM, SIGN, VERIFY Event Display: Patient Education Handout Authored Date: [id number] Patient Care team information Care Team Personnel Name: Konrad Gallegos RN Position: [facility] ED RN W/OE and Tasks Member Role: Primary Care Nurse Name: Anna Weaver RN Position: S RN Member Role: Primary Care Nurse Name: Niki Bright RN Position: S RN Member Role: Primary Care Nurse Name: Fang Che Position: [facility] RN Member Role: Primary Care Nurse Name: Trisha Alamo RN Position: [facility] RN Supv Member Role: Primary Care Nurse Name: Rita Son NP Position: [facility] Associate Professional Member Role: Primary Care Nurse Address: Address: [address] [facility] [place] [address]- [place] Name: Sol Chanel RN Position: [facility] RN Member Role: Primary Care Nurse Name: Brenda Cuba RN Position: [facility] HBO Wound Member Role: Primary Care Nurse Name: Kell Alonso RN Position: [facility] ED RN W/OE and Tasks Member Role: Primary Care Nurse Name: Belen Tesfaye RN Position: [facility] RN Member Role: Primary Care Nurse Name: Richa Clay LPN Position: [facility] RN Member Role: Primary Care Nurse Name: Aury Pandya RN Position: [facility] RN Member Role: Primary Care Nurse Name: Prisca Meng RN Position: [facility] RN Member Role: Primary Care Nurse Name: Екатерина Chacko RN Position: [facility] RN Member Role: Primary Care Nurse Name: Sadaf Tubbs RN Position: [facility] RN Member Role: Primary Care Nurse Name: Arjun Malagon RN Position: [facility] RN Member Role: Primary Care Nurse Name: Not on Staff, PCP Position: [facility] Physician (General Medicine) Member Role: PCP Name: Milo Leonard RN Position: [facility] RN Member Role: Primary Care Nurse Name: Anna Oconnor RN Position: [facility] [employer] Clerk Member Role: Primary Care Nurse Name: Dalila Cerda RN Position: [facility] RN Member Role: Primary Care Nurse Name: Shamar Lynn RN Position: [facility] RN Member Role: Primary Care Nurse Name: Kip Gonzalez RN Position: [facility] RN Member Role: Primary Care Nurse Address: Address: [address] [place] [address]- [place] Name: April Acuña RN Position: [facility] RN Member Role: Primary Care Nurse Name: Li Esquivel RN Position: [facility] [employer] Clerk Member Role: Primary Care Nurse Name: Tunde White MD Position: [facility] Physician - [facility] Member Role: Lifetime Consulting Physician Address: Address: [address] [place] [address]- [place] Care Team Related Persons Name: FORREST TO Address: [place] [address] Name: MÓNICA CREWS
--- OUTSIDE RECORDS SUMMARY | 2023-05-04 10:47 | XMS_ITS | Continuity of Care Document ---
Author Name Unknown Organization [facility] Address [address] [place] [address]- Care Team Providers Care Case Reviewer Name Role Phone Not on Staff, PCP Primary Care Physician Unavail able Encounter [facility] Date(s): 02/22/23 - 03/13/[address] [address]- Discharge Disposition: A-D/C Home Attending Physician: Nadya Carvajal MD Admitting Physician: Faraz Mckinley DO Referring Physician: Kell Clay DO Allergies, Adverse Reactions, Alerts Substance Reaction Severity Status sertraline Fluoxetine Fluoxetine Active Zoloft Active Remeron Active traZODone Active OLANZapine Active ZyPREXA Active Immunizations Given and Recorded Vaccine Date Status Refusal Reason tetanus/diphtheria/pertussis, acel(Tdap) 04/09/22 Recorded tetanus/diphtheria/pertussis, acel(Tdap) 05/18/18 Recorded tetanus/diphtheria/pertussis, acel(Tdap) 12/19/16 Recorded [id number] 12y+ bivalent booster vax 02/11/22 Recorded SARS-CoV-2 [...] 0 Refills, Maintenance, 03/12/23 14:01:00 EST, Cream, [facility] #[id number], Apply to lower legs andfeet 2 times a day, avoiding open areas, 183, cm, 1... Start Date: 03/12/23 Status: Ordered bethanechol 25 mg oral tablet 25 mg, By Mouth, 4 times a day, # 120 tablet, Refills 0, Tot. Refills 0, Maintenance, 03/12/23 14:02:00 EST, Route to Pharmacy Electronically, [facility] #[id number], 183, cm, 03/12/23 5:13:00 EST, Height, 125.2, kg, 02/22/23 14:00:00 EST, Dry We... Start Date: 03/12/23 Status: Ordered bumetanide 2 mg oral tablet = 2 mg, By Mouth, 2 times a day, # 28 tablet, 0 Refills, Maintenance, 03/12/23 19:46:00 EST, Tablet, [facility] #[id number], 183, cm, 03/12/23 5:13:00 EST, Height, 125.2, kg, 02/22/23 14:00:00 EST, Dry Weight Start Date: 03/12/23 Status: Ordered buPROPion 300 mg/24 hours (XL) oral tablet, extended release 1 tablet = 300 mg, By Mouth, Daily, # 30 tablet, 0 Refills, Maintenance, 03/12/23 15:02:00 EST, XL Tablet, [facility] #[id number], 183, cm, 03/12/23 5:13:00 EST, Height, 125.2, kg, 02/22/23 14:00:00 EST, Dry Weight Start Date: 03/12/23 Status: Ordered busPIRone 30 mg oral tablet 1 tablet = 30 mg, By Mouth, 2 times a day, # 60 tablet, 0 Refills, Maintenance, 03/12/23 15:02:00 EST, Tablet, [facility] #[id number], 183, cm, 03/12/23 5:13:00 EST, Height, 125.2, kg, 02/22/23 14:00:00 EST, Dry Weight Start Date: 03/12/23 Status: Ordered carisoprodol 350 mg oral tablet 350 mg, Tablet, By Mouth, 2 times a day, PRN for Spasm, muscle spasm only., Routine, 03/09/23 9:55:00 EST Start Date: 03/09/23 Stop Date: 03/13/23 Status: Discontinued chlordiazePOXIDE 25 mg oral capsule See Instructions, 2 capsule By Mouth Every 6 hours x 1 day, then 1 cap every 6 hours x 1 day, then 1 cap every 12 hours, # 14 capsule, 0 Refills, Acute 03/15/23 6:00:00 EST, 03/13/23 18:00:00 EST, Capsule, [facility] #[id number], Partial fill upo... Start Date: 03/13/23 Stop Date: 03/15/23 Status: Ordered Depakote ER 250 mg oral tablet, extended release 1 tablet = 250 mg, By Mouth, Daily, Total daily dose is 1750, # 30 tablet, 0 Refills, Maintenance, 03/12/23 13:59:00 EST, ER Tablet, [facility] #[id number], 183, cm, 03/12/23 5:13:00 EST, Height, 125.2, kg, 02/22/23 14:00:00 EST, Dry Weight Start Date: 03/12/23 Status: Ordered Depakote ER 500 mg oral tablet, extended release 3 tablet = 1,500 mg, By Mouth, Daily, total dose is 1750 QD, # 90 tablet, 0 Refills, Maintenance, 03/12/23 13:58:00 EST, ER Tablet, [facility] #[id number], 183, cm, 03/12/23 5:13:00 EST, Height,125.2, kg, 02/22/23 14:00:00 EST, Dry Weight Start Date: 03/12/23 Status: Ordered ferrous sulfate 325 mg oral enteric coated tablet 325 mg, 1, tablet, By Mouth, Every other day, # 45 tablet, Refills 0, Tot. Refills 0, Maintenance, 03/12/23 14:03:00 EST, Route to Pharmacy Electronically, [facility] #[id number], 183, cm, 03/12/23 5:13:00 EST, Height, 125.2, kg, 02/22/23 14:00:0... Start Date: 03/12/23 Status: Ordered levothyroxine 75 mcg (0.075 mg) oral tablet = 75 mcg, By Mouth, Daily, # 30 tablet, 0 Refills, Maintenance, 03/12/23 14:00:00 EST, Tablet, [facility] #[id number], 183, cm, 03/12/23 5:13:00 EST, Height, 125.2, kg, 02/22/23 14:00:00 EST, Dry Weight Start Date: 03/12/23 Status: Ordered Methadone Tablet 100 mg, Tablet, By Mouth, 03/13/23 9:00:00 EST Start Date: 03/13/23 Stop Date: 03/13/23 Status: Completed oxyCODONE 10 mg oral tablet 2 tablet = 20 mg, By Mouth, Every 4 hours, PRN as needed for pain, # 24 tablet, 0 Refills, Acute 03/16/23 9:00:00 EST, 03/12/23 14:04:00 EST, Tablet, [facility] #[id number], Partial fill upon patient request if the prescription is for a schedule... Start Date: 03/12/23 Stop Date: 03/16/23 Status: Ordered pantoprazole 40 mg oral delayed [...] Refills, Maintenance, 03/14/23 9:00:00 EST, ER Tablet, [facility] #[id number], 183, cm, 03/13/23 7:38:00 EST, Height, 125.2, kg, 02/22/23 14:00:00 EST, Dry Weight Start Date: 03/14/23 Status: Ordered prazosin 5 mg oral capsule 5 mg, 1, capsule, By Mouth, 2 times a day, # 60 capsule, Refills 0, Tot. Refills 0, Maintenance, 03/12/23 14:03:00 EST, Route to Pharmacy Electronically, [facility] #[id number], Partial fill upon patient request if the prescription is for a sched... Start Date: 03/12/23 Status: Ordered prazosin 5 mg oral capsule 5 mg, Capsule, By Mouth, 03/13/23 9:00:00 EST Start Date: 03/13/23 Stop Date: 03/13/23 Status: Completed pregabalin 150 mg oral capsule 1 capsule = 150 mg, By Mouth, 2 times a day, # 180 capsule, 0 Refills, Maintenance, 01/27/23 10:33:00 EST, Capsule, [facility] #[id number], Partial fill upon patient request if the prescription is for a schedule II opioid drug., 183, cm, 01/27/23... Start Date: 01/27/23 Status: Ordered promethazine 25 mg oral tablet 0.5 each = 12.5 mg, By Mouth, Every 6 hours, PRN Nausea & Vomiting, # 20 tablet, 0 Refills, Maintenance, 03/12/23 19:26:00 EST, Tablet, [facility] #[id number], 183, cm, 03/12/23 5:13:00 EST,Height, 125.2, kg, 02/22/23 14:00:00 EST, Dry Weight Start Date: 03/12/23 Status: Ordered rivaroxaban 15 mg oral tablet = 15 mg, By Mouth, 2 times a day with meals, # 40 tablet, 0 Refills, Maintenance, 03/12/23 15:05:00EST, Tablet, [facility] #[id number], 183, cm, 03/12/23 5:13:00 EST, Height, 125.2, kg, 02/22/23 14:00:00 EST, Dry Weight Start Date: 03/12/23 Status: Ordered rivaroxaban 20 mg oral tablet = 20 mg, By Mouth, Daily at supper, # 30 tablet, 0 Refills, Maintenance, 04/01/23 15:05:00 EST, Tablet, [facility] #[id number], 183, cm, 03/12/23 5:13:00 EST, Height, 125.2, kg, 02/22/23 14:00:00 EST, Dry Weight Start Date: 04/01/23 Status: Ordered Senna 8.6 mg oral tablet 8.6 mg, 1, tablet, By Mouth, Daily at bedtime, # 30 tablet, Refills 0, Tot. Refills 0, Maintenance,03/12/23 15:04:00 EST, Route to Pharmacy Electronically, [facility] #[id number] Tablet, 183, cm, 03/12/23 5:13:00 EST, Height, 125.2, kg, 02/22/23... Start Date: 03/12/23 Status: Ordered SEROquel 25 mg oral tablet 50 mg, By Mouth, Every 8 hours, PRN, # 90 tablet, Refills 0, Tot. Refills 0, Maintenance, Anxiety, 03/12/23 14:05:00 EST, Route to Pharmacy Electronically, [facility] #[id number], 183, cm, 03/12/23 5:13:00 EST, Height, 125.2, kg, 02/22/23 14:00:0... Start Date: 03/12/23 Status: Ordered tamsulosin 0.4 mg oral capsule 0.4 mg, By Mouth, Daily, # 30 capsule, Refills 0, Tot. Refills 0, Maintenance, 03/12/23 15:06:00 EST, Route to Pharmacy Electronically, [facility] #[id number], 183, cm, 03/12/23 5:13:00 EST, Height, 125.2, kg, 02/22/23 14:00:00 EST, Dry Weight Start Date: 03/12/23 Status: Ordered tiZANidine 2 mg oral tablet 2 mg, 1, tablet, By Mouth, 3 times a day, PRN, # 30 tablet, Refills 0, Tot. Refills 0, Maintenance,Spasm, 03/12/23 19:27:00 EST, Route to Pharmacy Electronically, [facility] #[id number], ., 183, cm, 03/12/23 5:13:00 EST, Height, 125.2, kg, 02/22... Start Date: 03/12/23 Status: Ordered Problem List Condition Confirmation Course Effective Dates Status H ealth Status Informant Alcohol use disorder, moderate, in early remission Confirmed Active Allergic rhinitis Confirmed Active Antisocial personality disorder in adult Confirmed Active Asthma Confirmed Active Bilateral lower limb edema Confirmed 4/12/23 Active Tricompartment osteoarthritis of both knees Confirmed [...] suboxone- but denies any recent use. DW Appeals Examiner and will work to connect him with methadone clinic for dosing. Will continue Suboxone 8-2mg bid at this time. Not interested in tx program at this time. CTM. 2Outside Source Comment: Last Assessment & Plan: bp wnl-ap 126-regular Pt to [facility] via cab for further eval. 3Outside Source Comment: Last Assessment & Plan: Recent inpt psych hospitalization in [facility]. Denies any SI/HI at this time but very anxious about medications. DW pt no dose adjustments at this time and will need to connect with psych at [facility]- no current psych provider. Pt contracts for safety. Pt did come with rx avail- but sh ort on lorazepam. Will fill at this time but ensure has prescriber on d/c. BH met with pt todayand psych referral placed. Administration aware. Results Orders for Microbiology Reports Name Date Blood Culture 02/21/23 Blood Culture #2 02/21/23 Microbiology Reports TEST:Blood Culture STATUS:Auth (Verified) BODY SITE: SOURCE:Blood COLLECTED DATE/TIME:02/21/23 7:04 PM Blood Culture SPECIMEN DESCRIPTION : BLOOD LEFT AC SPECIAL REQUESTS : NONE CULTURE : NO GROWTH 5 DAYS. REPORT STATUS : FINAL 02/26/2023 TEST:Blood Culture, Second Order STATUS:Auth (Verified) BODY SITE: SOURCE:Blood COLLECTED DATE/TIME:02/21/23 7:04 PM Blood Culture, Second Order SPECIMEN DESCRIPTION : BLOOD RIGHT AC SPECIAL REQUESTS : NONE CULTURE : NO GROWTH 5 DAYS. REPORT STATUS : FINAL 02/26/2023 Radiology Reports * Exam Date Time Procedure Performing Provider Status 03/13/23 4:13 AM Chest Portable Gretchen Ray (Verified) Notes: (Chest Portable) Reason For Exam: CHF RESULT: Chest Portable Chest Portable Reason: CHF; Clinical Question(s): CHF COMPARISON: 02/21/2023 FINDINGS: LINES AND TUBES: Right upper extremity PICC tip at cavoatrial junction. LUNGS AND PLEURA: Clear lungs. Normal pulmonary vascularity. Questionable trace left effusion. No pneumothorax. HEART, MEDIASTINUM AND CONCEPCIÓN: Heart is normal in size. Normal mediastinal and hilar contour. BONES AND SOFT TISSUES: No acute abnormality. IMPRESSION: Questionable trace left pleural effusion. WSN: [id number] Ordering Physician: Kyler Machado I Dictated By: Darryl Hensley MD Dictated Date/Time: 03/13/23 6:42 am Reviewed By: Darryl Hensley MD Signed By: Darryl Hensley MD Signed Date/Time: 03/13/23 6:42 am Transcribed By: RAVINDER Transcribed Date/Time: 03/13/23 6:41 am * Exam Date Time Procedure Performing Provider Status 03/11/23 7:04 PM US Doppler Ext Lower Venous Left Nati Rodriguez; Auth (Verified) Notes: (US Doppler Ext Lower Venous Left) Reason For Exam: worsened swelling, ? ruptured Norwood's cyst;Swelling Extremities RESULT: US Doppler Ext Lower Venous Left US Doppler Ext Lower Venous Left REASON: Swelling Extremities; worsened swelling, ? ruptured Norwood's cyst; Clinical Question(s): Other: COMPARISON: 02/24/2023 IMAGING TECHNIQUE: Ultrasound of the veins from the groin through the calf was performed using grayscale, color, and spectral Doppler ultrasound assessing for complete compressibility and normal flowcharacteristics. FINDINGS: Limited exam due to body habitus. Common femoral vein: Patent. No thrombosis. Femoral vein: Patent. No thrombosis. Popliteal vein: Not well evaluated but there appears to be incomplete compressibility of the popliteal vein which contains echogenic material and no internal flow. Gastrocnemius veins: Not visualized. Peroneal veins: Not visualized. Posterior tibial veins: The visualized portions are patent without evidence of thrombosis. Contralateral common femoral vein: Patent. No thrombosis. OTHER FINDINGS: Popliteal fossa cyst measuring 4.4 x 3.3 x 2 cm. Diffuse subcutaneous edema in the calf. IMPRESSION: 1. Findings highly concerning for thrombosis of the left popliteal vein. 2. Small left Norwood's cyst. An actionable message (Timber) has been communicated via the [employer] system on 03/12/2023 7:24 AM, Message ID [id number]. WSN: [id number] Ordering Physician: Nadya Carvajal Dictated By: Darryl Rodríguez MD Dictated Date/Time: 03/12/23 7:24 am Reviewed By: Darryl Rodríguez MD Signed By: Darryl Rodríguez MD Signed Date/Time: 03/12/23 7:24 am Transcribed By: RAVINDER Transcribed Date/Time: 03/12/23 7:19 am * Exam Date Time Procedure Performing Provider Status 02/24/23 8:50 AM US Doppler Ext Lower Venous Left Michael Tolentino; Auth (Verified) Notes: (US Doppler Ext Lower Venous Left) Reason For Exam: Swelling Extremities;Swelling Extremities RESULT: US Doppler Ext Lower Venous Left US Doppler Ext Lower Venous Left Reason: Swelling Extremities; Clinical Question(s): Thrombus; Order Comment: Per RN pt will be medicated prior to US Waiting to speak to pts RN to plan a time to do exam portably. -MP 8:30 Per pts RNpt is getting an Echo at this time. Will complete US following Echo. -MP 12 07:38 COMPARISON: 09/19/2022. IMAGING TECHNIQUE: Streamlined portable ultrasound of the lower extremity deep venous system was performed using grayscale, color, and spectral Doppler ultrasound from the common femoral through the popliteal vein assessing for complete compressibility and good response to compression and augmentation. The calf veins are not assessed. FINDINGS: Common femoral vein: Patent. No thrombosis. Femoral vein: Patent. No thrombosis. Popliteal vein: Patent. No thrombosis. Contralateral femoral vein: Patent. No thrombus. OTHER FINDINGS: Likely complex Norwood's cyst within the left popliteal fossa measuring 5.2 x 0.8 x 3.7 cm. IMPRESSION: No evidence of deep venous thrombosis from the groin through the popliteal vein. Calf veins not assessed with portable technique. WSN: [id number] Ordering Physician: Faraz Mckinley Dictated By: Vik Mcqueen MD Dictated Date/Time: 02/24/23 10:25 a Reviewed By: Vik Mcqueen MD Signed By: Vik Mcqueen MD Signed Date/Time: 02/24/23 10:25 am Transcribed By: RAVINDER Transcribed Date/Time: 02/24/23 10:22 am * Exam Date Time Procedure Performing Provider Status 02/21/23 10:[address] Angio Chest Staci Ray; Au th (Verified) Notes: (CT Angio Chest) Reason For Exam: PE suspected, Intermediate prob, positive D-dimer,;Other: RESULT: CT Angio Chest EXAMINATION: CT Angio Chest INDICATION: Hx of Present Illness: presents for leg pain and edema. new swelling of left knee. no shortness of breath. vital signs stable.; Reason: Other:; PE suspected, Intermediate prob, positive D-dimer,; Clinical Question(s): Pulmonary Embolism TECHNIQUE: Spiral CTA of the chest was performed after rapid IV contrast administration without cardiac gating, triggered by an GABRIELA on the main pulmonary artery. Images are formatted in multiple planes using 2-D multiplanar and 3-D maximum intensity projection. 100 cc of Omnipaque 300 was administered intravenously. Weight-based protocol using automatic tube modulation was used to optimize exposure parameters. CTDIvol Body: 52.93 mGy, DLP Body: 661 mGy*cm. COMPARISONS: 02/05/[address] ANGIOGRAPHIC FINDINGS: Evaluation is mildly limited by incomplete opacification of the pulmonary arteries with contrast. No pulmonary embolism to the subsegmental level. Normal caliber pulmonary arteries. No acute aortic abnormality seen on this study performed without cardiac gating. NON-ANGIOGRAPHIC FINDINGS: Urgent Care Technician View Findings, Lines and Tubes: None. Trachea and Airways: Patent without evidence of tracheal or endobronchial lesion. Lungs and Pleura: Minimal patchy bilateral groundglass opacity which is improved compared to 02/05/2023 when there was more extensive airspace consolidation. Minimal left pleural thickening not significantly changed. No effusions. No pneumothorax. Mediastinum and concepción: No mass or hematoma. No mediastinal or hilar lymphadenopathy. No esophageal abnormality. Heart: Heart is normal in size. No pericardial effusion. Chest Wall Soft Tissues: Normal. Diaphragm and upper abdomen: No significant abnormality. Bones: No acute abnormality. IMPRESSION: Study slightly limited by timing of injection. Given this limitation there is no evidence for pulmonary embolus. Marked improvement in bilateral multifocal pneumonia is seen on 02/05/2023. No new acute abnormality. Final report is in agreement with on-call report. WSN: [id number] Ordering Physician: Kell Clay Dictated By: Darryl Hensley MD Dictated Date/Time: 02/22/23 7:23 am Reviewed By: Darryl Hensley MD Signed By: Darryl Hensley MD Signed Date/Time: 02/22/23 7:23 am Transcribed By: RAVINDER Transcribed Date/Time: 02/22/23 7:14 am * Exam Date Time Procedure Performing Provider Status 02/21/23 7:47 PM Knee 3 Views Left Ebenezer Valladares [facility] (Verified) Notes: (Knee 3 Views Left) Reason For Exam: Trauma RESULT: Knee 3 Views Left Knee 3 Views Left Hx of Present Illness: presents for leg pain and edema. new swelling of left knee. no shortness of breath. vital signs stable.; Reason: Trauma; Clinical Question(s): Fracture COMPARISON: Multiple priors including 09/11/2022. FINDINGS: There is no acute fracture or dislocation. Again seen is severe tricompartmental degenerative osteoarthritis, with marginal spurring. There are several well-corticated bone fragments posteriorly and medially representing intra-articular loosebodies, which are unchanged. There is a small suprapatellar joint effusion. IMPRESSION: Small joint effusion and severe tricompartmental degenerative osteoarthritis. WSN: [id number] Ordering Physician: Kell Clay Dictated By: Nicki Jimenez MD Dictated Date/Time: 02/21/23 8:01 pm Reviewed By: Nicki Jimenez MD Signed By: Nicki Jimenez MD Signed Date/Time: 02/21/23 8:01 pm Transcribed By: RAVINDER Transcribed Date/Time: 02/21/23 8:00 pm * Exam Date Time Procedure Performing Provider Status 02/21/23 7:28 PM Chest 2 Views Frontal and Lat Ebenezer Valladares; Auth (Verified) Notes: (Chest 2 Views Frontal and Lat) Reason For Exam: Shortness of Breath RESULT: Chest 2 Views Frontal and Lat Chest 2 Views Frontal and Lat Hx of Present Illness: presents for leg pain and edema. new swelling of left knee. no shortness of breath. vital signs stable.; Reason: Shortness of Breath; Clinical Question(s): Pneumonia COMPARISON: 02/06/2023. FINDINGS: LINES AND TUBES: None. LUNGS AND PLEURA: Clear lungs. Normal pulmonary vascularity. No pleural effusion. No pneumothorax. HEART, MEDIASTINUM AND CONCEPCIÓN: Heart is normal in size. Normal mediastinal and hilar contour. BONES AND SOFT TISSUES: No acute abnormality. IMPRESSION: No acute pulmonary process. Clearing of previously seen diffuse airspace disease. WSN: [id number] Ordering Physician: Kell Clay Dictated By: Nicki Jimenez MD Dictated Date/Time: 02/21/23 7:47 pm Reviewed By: Nicki Jimenez MD Signed By: Nicki Jimenez MD Signed Date/Time: 02/21/23 7:47 pm Transcribed By: RAVINDER Transcribed Date/Time: 02/21/23 7:46 pm Vital Signs Most recent to oldest [Reference Range]: 1 2 3 Height 183 cm (03/13/23 7:38 AM) 183 cm (03/13/23 4:44 AM) 183 cm (03/12/23 7:24 PM) Weight 133.3 kg (03/13/23 8:54 AM) 294.1 kg (03/12/23 7:16 AM) 294.1 kg (03/12/23 4:00 AM) Oxygen Saturation [94-100 %] 94 % (03/13/23 7:38 AM) 93 % *L* (03/13/23 4:44 AM) 96 % (03/12/23 7:24 PM) Pulse Rate [55-90 bpm] 106 bpm *H* (03/13/23 7:38 AM) 90 bpm (03/13/23 4:44 AM) 100 bpm *H* (03/12/23 7:24 PM) Body Mass Index [18.5-24.99 kg/m2] 37.12 kg/m2 *>HHI* (02/25/23 7:02 AM) 37.39 kg/m2 *>HHI* (02/22/23 2:00 PM) 35.83 kg/m2 *>HHI* (02/21/23 4:35 PM) Blood Pressure [90-138/55-84 mm Hg] 126/85mm Hg (03/13/23 7:38 AM) 126/85mm Hg (03/13/23 7:36 AM) 128/79mm Hg (03/13/23 4:44 AM) Respiratory Rate [16-30 br/min] 18 br/min (03/13/23 8:35 AM) 18 br/min (03/13/23 8:34 AM) 18 br/min (03/13/23 7:38 AM) Temperature [96.8-100.4 DegF] 98.0 DegF (03/13/23 7:38 AM) 97.3 DegF (03/13/23 4:44 AM) 98.2 DegF (03/12/23 7:24 PM) Liters per Minute 0 L/min (03/07/23 6:26 AM) 0 L/min (03/06/23 9:01 PM) 0 L/min (03/06/23 6:09 AM) Mode of Delivery (Oxygen) Room air (03/13/23 7:38 AM) Room air (03/13/23 4:44 AM) Room air (03/12/23 7:24 PM) Blood pressure sites Arm, right (03/13/23 7:38 AM) Arm, left (03/13/23 4:44 AM) Arm, left (03/12/23 7:24 PM) Temperature Route Oral (03/13/23 7:38 AM) Oral (03/13/23 4:44 AM) Oral (03/12/23 7:24 PM) Dry Weight 125.2 kg (02/22/23 2:00 PM) 125.3 kg (02/21/23 8:00 PM) 120 kg (02/21/23 4:35 PM) Weight Obtained Via Standing scale (03/13/23 8:54 AM) Standing scale (03/12/23 7:16 AM) Standing scale (03/12/23 4:00 AM) Dry Weight Obtained Via Standing scale (02/21/23 8:00 PM) Social History Social History Type [...] Code MRI Safety Implantable Status 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 [id number] Unknown [id number] 2 Unknown 03/11/21 Unknown Unknown Active GS1 History and physical note * Faraz Mckinley DO: PERFORM, MODIFY Event Display: History and Physical Hospital Authored Date: Patient: ??VAHID TO ? Age:??42 Years?Sex:??Male?:??1980?? Chief Complaint/Reason for Consultation Coming from home with acute on chronic B/L leg swelling History of Present Illness Mr. To??is a 6-year-old gentleman??,with a history of schizoaffective disorder??chronic pain??on Suboxone??, asthma??,??lle, knee??pain,??recent admission for MRSA bacteremia but left AMA on 02/09 who presents with chest pain, shortness of breath, left knee pain. History is obtained from the patient who is a fair historian. ?? He was initially admitted here on 02/05 for respiratory failure, pneumonia.?? He was transferred to[facility] and the plan was for echocardiogram to rule out endocarditis.?? Unfortunately left AMA on 02/09.?? He was discharged on Bactrim.?? He reports taking the antibiotic as prescribed though admits that he only takes Lasix every few days despite it being prescribed daily.?? He comes in today complaining of worsening pain and swelling in his left leg over the past 3 days.?? He also complains of worsening shortness of breath and some chest pain that developed earlier in the day.?? He denies any other associated symptoms. ?? In the ED his labs were unremarkable save for an elevated D-dimer.?? He had a CTA of the chest which was negative.?? He was given vancomycin for cellulitis of his left lower extremity. Review of Systems Positive ROS are noted in??BOLD TEXT General?fatigue, weight change, fever, chills, falls HEENT?KISER, vision change, sore throat?? Pulm?cough, SOB, MAURER, wheezing CV?chest pain, palpitations, PND, orthopnea, edema GI?abd pain, nausea, vomiting, diarrhea, constipation, melena, hematochezia ?dysuria, increased frequency, hematuria, incontinence MS?back pain, joint swelling, arthralgias, left knee pain and swelling Neuro?syncope, dizziness, weakness, paresthesias Hematologic?bleeding tendency, easy bruising Skin?rash, lesions Psych?depression, SI/HI Objective Vital Signs?? Temperature: 98.1 DegF (02/22/23 00:04:00) Temperature Route: Oral (02/22/23 00:04:00) Pulse Rate: 84 bpm (02/22/23 00:04:00) Respiratory Rate: 18 br/min (02/22/23 00:44:00) Systolic Blood Pressure: 128 mm Hg (02/22/23 00:04:00) Diastolic Blood Pressure: 81 mm Hg (02/22/23 00:04:00) Blood pressure sites: Arm, left (02/22/23 00:04:00) Mean Arterial Pressure: 97 mm Hg (02/22/23 00:04:00) Pulse Pressure: 47 mm Hg (02/22/23 00:04:00) Oxygen Saturation: 97 % (02/22/23 00:04:00) Mode of Delivery (Oxygen): Room air (02/22/23 00:04:00) ? Intake/Output? No Data Available ? Physical Exam Constitutional: No acute distress, well-developed, alert and oriented x4 HEENT: Normocephalic, atraumatic, PERRLA, EOMI, oropharynx clear, moist mucus membranes Respiratory: CTA bilaterally, no wheezes/rhonchi/rales Cardiac: RRR, +S1/S2, no murmurs/rubs, pulses palpable and equal in all extremities, Edema bilaterally, worse on the left Gastrointestinal: +BS, non-tender to palpation, non-distended Neurologic: CNII-XII grossly intact, 5/5 strength in all extremities, sensation intact Musculoskeletal: No gross deformities, back non-tender to palpation,??swelling of the left knee joint Skin: Areas of skin breakdown??on the anterior lower legs bilaterally,??worse on the left Psych: Mood appropriate to situation Assessment/Plan Assessment:??Mr. To??is a 6-year-old gentleman??,with a history of schizoaffective disorder??chronic pain??on Suboxone??, asthma??,??lle, knee??pain,??recent admission for MRSA bacteremia but left AMA on 02/09 who presents with chest pain, shortness of breath, left knee pain ?? Left knee pain (M25.562):??Several days of left leg??swelling and pain,??particularly in the left knee.??Could be due to increased exertion as he reports going up and down the stairs??more frequentlythan usual??to care for his mother; however,??given the MRSA bacteremia??he could certainly have??an infection of the joint. He does have some erythema and warmth of his left leg though??it does not appear significantly worse as compared to the right??and??is more likely due to??stasis dermatitis??as opposed to cellulitis at this point. -Continue??antibiotic coverage with vancomycin -LLE ultrasound to rule out a DVT??given his prior history of DVT -Orthopedic consult??for potential joint aspiration -Elevate the leg -Start IV Lasix as he has gained??at least 7??kg??since leaving [facility] [place]??and??has been??noncompliant with his Lasix ?? Chest pain (R07.9):??Etiology is unclear.??CTA chest??shows no acute pathology. Troponin trend is flat??and he has no ECG changes.??No history of??chest wall trauma.??Could be due to anxiety. -Follow-up final CTA chest??reading -Treat anxiety, 1 dose of Xanax now as requested by the patient ?? MRSA bacteremia (R78.81):??MRSA positive culture on 02/06.??Was managed on vancomycin??and plan wasfor workup of potential endocarditis??though the patient left AMA. -Continue vancomycin -Follow-up blood cultures that were drawn here -Echocardiogram ?? Hypothyroidism (E03.9):??Continue levothyroxine ?? Chronic pain syndrome (G89.4):??Continue Suboxone ?? Schizoaffective disorder, bipolar type (F25.0):??. Generalized anxiety disorder (F41.1):? -Continue bupropion, buspirone, Depakote, prazosin, hydroxyzine.??Med reconciliation and doses changed??based on psychiatry recommendations from his prior admission, specifically??Depakote??3 times daily, prazosin??twice daily. Abilify and escitalopram were removed from his medication list. ?? Severe obesity (BMI 35.0-39.9) with comorbidity (E66.01):??BMI 35 ?? VTE Prophylaxis:??High risk, Lovenox ?VTE Prophylaxis Assessment:??VTE Prophylaxis Ordered ?? Code Status:??Full code ?Order Code Status:??Code Status Ordered ?? Patient evaluated on 02/21/2023 ?? Histories Allergies Allergies ?(Active and Proposed [...] anxiety disorder GERD (gastroesophageal reflux disease) Hypothyroidism Mi Normocytic normochromic anemia Opioid dependence Pain of knee region Polysubstance dependence Retention of urine Schizoaffective disorder, bipolar type Severe obesity (BMI 35.0-39.9) with comorbidity Umbilical hernia ? Past Surgical History Upper gastrointestinal endoscopy: 12/20/18 Knee joint operation Ankle joint operations Herniotomy Appendectomy ? Social History Alcohol Details:??Use: Current. ??Frequency: [...] COPD Father: Alcoholism ? Medications Home Medications Acetaminophen/Codeine (acetaminophen-codeine 300 mg-30 mg oral tablet)?1?tab(s)?TAKE 1 TABLET BY MOUTH EVERY 6 HOURS NEEDED FOR PAIN, DO NOT DRIVE OR DRINK ALCOHOL Buprenorphine-Naloxone (buprenorphine-naloxone 8 mg-2 mg sublingual film)?2?Film?Sublingual?Daily?for 7?Days BuPROpion (buPROPion 300 mg/24 hours (XL) oral tablet, extended release)?1?tab(s)?300?Milligram?By Mouth?Daily BusPIRone (busPIRone 30 mg oral tablet)?1?tab(s)?30?Milligram?By Mouth?2 times a day Diclofenac (diclofenac sodium 75 mg oral delayed release tablet)?1?tab(s)?75?Milligram?By Mouth?2 times a day Divalproex Sodium (divalproex sodium 500 mg oral enteric coated tablet)?1?tab(s)?500?Milligram?By Mouth?3 times a day?TAKE 1 TABLET BY MOUTH AT BEDTIME Docusate (docusate sodium 100 mg oral capsule)?100?Milligram?1?capsule?By Mouth?2times a day Furosemide (furosemide 80 mg oral tablet)?80?Milligram?1?tablet?By Mouth?Daily?for 14?Days?TAKE ONE TABLET BY MOUTH DAILY HydrOXYzine (hydrOXYzine pamoate 50 mg oral capsule)?1?capsule?50?Milligram?By Mouth?3 times a day?as needed?Anxiety Levothyroxine (levothyroxine 0.05 mg oral tablet)?1?tab(s)?50?Microgram?By Mouth?Daily?for 14?Days?TAKE ONE TABLET BY MOUTH DAILY Montelukast (montelukast 10 mg oral tablet)?10?Milligram?1?tablet?By Mouth?Daily Pantoprazole (pantoprazole 20 mg oral delayed release tablet)?1?tab(s)?20?Milligram?By Mouth?Daily Prazosin (prazosin 5 mg oral capsule)?5?Milligram?1?capsule?By Mouth?2 times a day Pregabalin (pregabalin 150 mg oral capsule)?1?capsule?150?Milligram?By Mouth?2 times a day Senna (Senna 8.6 mg oral tablet)?8.6?Milligram?1?tab(s)?By Mouth?Daily at bedtime Sulfamethoxazole/Trimethoprim (Bactrim DS 800 mg-160 mg oral tablet)?1?tab(s)?By Mouth?2 times a day?for 14?Days Tizanidine (tiZANidine 4 mg oral tablet)?See Instructions?as needed?TAKE 1 TABLET BY MOUTHTHREE TIMES DAILY FOR 5 DAYS?Spasm ? Results Recent Labs BLOOD COUNT & DIFF WBC 4.7 k/mm3 ()?? 02/21/2023 19:04 RBC 3.35 m/mm3 (Low)?? 02/21/2023 19:04 Hgb 8.6 Gm/dL (Low)?? 02/21/2023 19:04 Hct 27.8 % (Low)?? 02/21/2023 19:04 MCV 83.0 femtoliters ()?? 02/21/2023 19:04 MCH 25.7 pg (Low)?? 02/21/2023 19:04 MCHC 30.9 g/dL (Low)?? 02/21/2023 19:04 Platelet Count 241 k/mm3 ()?? 02/21/2023 19:04 RDW-SD 47.9 femtoliters (High)?? 02/21/2023 19:04 MPV 9.7 femtoliters ()?? 02/21/2023 19:04 Nucleated RBC (Automated) 0.0 #/100 WBC'S ()?? 02/21/2023 19:04 Abs. NRBC 0.0 k/mm3 ()?? 02/21/2023 19:04 Abs. Neut 2.3 k/mm3 ()?? 02/21/2023 19:04 Abs. Lymph 1.6 k/mm3 ()?? 02/21/2023 19:04 Abs. [place] 0.6 k/mm3 ()?? 02/21/2023 19:04 Abs. Eo 0.2 k/mm3 ()?? 02/21/2023 19:04 Abs. Baso 0.0 k/mm3 ()?? 02/21/2023 19:04 Neut % 47.9 % ()?? 02/21/2023 19:04 Lymph % 33.2 % ()?? 02/21/2023 19:04 [place] % 12.6 % (High)?? 02/21/2023 19:04 Eos % 5.1 % ()?? 02/21/2023 19:04 Baso % 0.6 % ()?? 02/21/2023 19:04 Imm Gran 0.6 % ()?? 02/21/2023 19:04 Abs. Imm Gran 0.0 k/mm3 ()?? 02/21/2023 19:04 ?? CARDIAC Nt-Probnp 44 pg/mL ()?? 02/21/2023 20:58 High Sensitivity Troponin (HSTnT) 13 ng/L ()?? 02/21/2023 20:58 ?? CHEM GENERAL Sodium 134 mmol/L ()?? 02/21/2023 19:04 Potassium 3.9 mmol/L ()?? 02/21/2023 19:04 Chloride 98 mmol/L ()?? 02/21/2023 19:04 Bicarbonate Level 27 mmol/L ()?? 02/21/2023 19:04 Anion Gap 9 ()?? 02/21/2023 19:04 Glucose Level 111 mg/dL (High)?? 02/21/2023 19:04 BUN 12 mg/dL ()?? 02/21/2023 19:04 Creatinine-Blood 0.8 mg/dL ()?? 02/21/2023 19:04 Estimated GFR Creatinine 115 ML/MIN/1.73 M2 ()?? 02/21/2023 19:04 Calcium 8.5 mg/dL (Low)?? 02/21/2023 19:04 Protein, Total 6.4 Gm/dL ()?? 02/21/2023 19:04 Albumin 3.6 Gm/dL ()?? 02/21/2023 19:04 AG Ratio 1.3 ()?? 02/21/2023 19:04 Alkaline Phosphatase 109 units/L ()?? 02/21/2023 19:04 AST (SGOT) 16 units/L ()?? 02/21/2023 19:04 ALT (SGPT) 22 units/L ()?? 02/21/2023 19:04 Bilirubin, Total 0.2 mg/dL ()?? 02/21/2023 19:04 C-Reactive Protein 0.9 mg/dL (High)?? 02/21/2023 19:04 ?? COAG D-Dimer 2.65 mg/L FEU (High)?? 02/21/2023 19:04 ?? HEME OTHER Sed Rate 21 mm/hr (High)?? 02/21/2023 19:04 ?? MISC. CHEMISTRY Hold Gel Top SPECIMEN DISCARDED AFTER 1 WEEK ()?? 02/21/2023 19:04 Hold Fernando Top SPECIMEN DISCARDED AFTER 1 WEEK ()?? 02/21/2023 19:04 ?? URINE OTHER Est Creatinine Clearance 134.91 mL/min ()?? 02/21/2023 19:30 ? EKG study * Event Display: ECG 12-Lead Authored Date: Please click on pdf link to open report * Event Display: ECG 12-Lead Authored Date: Ventricular Rate: 76 BPM Atrial Rate: 76 BPM P-R Interval: 162 ms QRS Duration: 92 ms Q-T Interval: 400 ms QTC Calculation(Bazett): 450 ms P Cornelius: 53 degrees R Cornelius: 0 degrees T Cornelius: 28 degrees Normal sinus rhythm Minimal voltage criteria for LVH, may be normal variant ( R in aVL ) Borderline ECG When compared with ECG of 21-FEB-2023 18:34, No significant change was found Confirmed by LORNE SEALS MD ([id number]) on 03/05/2023 8:50:03 PM [place]: LORNE SEALS MD * Event Display: ECG 12-Lead Authored Date: [id number] Please click on pdf link to open report * Event Display: ECG 12-Lead Authored Date: [id number] Ventricular Rate: 81 BPM Atrial Rate: 81 BPM P-R Interval: 160 ms QRS Duration: 92 ms Q-T Interval: 388 ms QTC Calculation(Bazett): 450 ms P Cornelius: 49 degrees R Cornelius: -4 degrees T Cornelius: 27 degrees Normal sinus rhythm Minimal voltage criteria for LVH, may be normal variant ( R in aVL ) Borderline ECG When compared with ECG of 14-FEB-2023 12:30, No significant change was found Confirmed by LORNE SEALS MD ([id number]) on 02/22/2023 9:06:22 PM [place]: LORNE SEALS MD Heart * Event Display: Echocardiogram - Complete Authored Date: [id number] Transthoracic Echocardiography Report (TTE) Patient Demographics Patient Name VAHID TO Date of Study 02/24/2023 Corporate Gender Male Facility Race Ethnicity Date of 1980 Height: 72 inches Age 42 year(s) Weight: 285.01 pounds Accession Number [id number] BSA: 2.48 m2 Room Number P222 BMI: 38.65 kg/m2 Referring Physician Arlen Ruth DO Interpreting Xavier Castorena Physician Tanisha HEDNERSON DO [employer] Nati Calvert RD Indications Endocarditis and bacteremia. Study Data Type of Study TTE procedure:Echo Complete-Doppler, Colorflow, M-Mode. Study Date02/24/2023 Start Time: 07:43 AM Study Location: [facility] Echo Study Status: Bedside Patient Status: Routine Technical Quality: Adequate Blood Pressure:99/63 mmHg EKG: Normal sinus rhythm HR: 701 bpm 2D Measurements LV Diastolic Dimension: 5.3 cm LV Septum Diastolic: 1.1 cm AO Root Dimension: 3.4 cm LV PW Diastolic: 1.1 cm LA Dimension: 4.1 cm LA ESV (BP):87.2 ml LA ESV Index: 35 ml/m2 LVOT Stroke Volume: 85.11 ml LVOT: 2.2 cm Stroke Volume Index34.32 ml/m2 Ascending Aorta:3.6 cm Cardiac Index:24.06 l/min/m2 Doppler Measurements AV Peak Velocity: 142 cm/s MV Peak E-Wave: 98.1 cm/s AV Peak Gradient: 8.07 mmHg MV Peak A-Wave: 64.7 cm/s AV Mean Gradient: 5 mmHg MV E/A Ratio: 1.52 AV VTI:29.2 cm MV P1/2t: 56 msec LVOT Peak Velocity: 102 cm/s MV Mean Gradient: 2 mmHg LVOT VTI22.4 cm MV Area (continuity): 2.72 cm2 AV Area (Continuity):2.91 cm2 MV Deceleration Time: 193 msec MV Area (PHT): 3.93 cm2 TR Velocity:276 cm/s TR Gradient:30.47 mmHg PV Peak Velocity: 117 cm/s Estimated RAP:8 mmHg PV Peak Gradient: 5.48 mmHg Estimated RVSP: 38.5 mmHg E' Septal Velocity: 8.49 cm/s E' Lateral Velocity: 11.6 cm/s E/Med E':11.69199 E/Lat E':8.516186 Cardiac Anatomy Left Ventricle/Interventricular Septum The left ventricle is normal in size, wall thickness and systolic function. The ejection fraction is 55-65%. No regional wall motion abnormalities are seen. Normal diastolic function. Left Atrium/Interatrial Septum The left atrium is mildly dilated. Aortic Valve The aortic valve is tricuspid. There is no aortic stenosis or insufficiency. Mitral Valve The mitral valve is normal in structure and function. There is trace mitral regurgitation. Aorta The ascending aorta and aortic root are normal in size. Right Ventricle The right ventricular size is at the upper limits of normal. Right ventricular systolic function appears preserved. Right Atrium The right atrium is mildly dilated. Pulmonic Valve The pulmonic valve is not well visualized. There is no pulmonic stenosis; trace insufficiency. Tricuspid Valve The tricuspid valve is normal in appearance with mild tricuspid regurgitation. Pumonary Artery The pulmonary artery systolic pressure estimation is 35-40 mmHg. Venous Structures The inferior vena cava appears mildly dilated. Inferior vena cava inspiratory collapse is normal . Pericardium/Extracardiac There is no pericardial effusion. Summary The left ventricle is normal in size, wall thickness and systolic function. The ejection fraction is 55-65%. The right ventricular size is at the upper limits of normal. Right ventricular systolic function appears preserved. The tricuspid valve is normal in appearance with mild tricuspid regurgitation. Impressions No evidence of vegetation. Signature * Event Display: Echocardiogram - Complete Authored Date: Hospital Progress note * Belen Tesfaye RN: PERFORM, VERIFY, MODIFY, SIGN Event Display: Progress Note Hospital Authored Date: Patient: VAHID TO Age: 42 years Sex: Male : 1980 Associated Diagnoses: None Author: Belen Tesfaye RN Findings Problem Related to Alteration in Comfort : Alteration in Comfort/new 03/13/2023 9:00 EST Alteration in Comfort Related to Other: BLE pain chronic Goals & Outcomes: Comfort Pt will report acceptable level of comfort & pain control, Pt will state importance of adhering to pain strategy regime, Pt will demonstrate necessary skills to manage pain Interventions Implemented: Comfort Assess pain using appropriate pain scale/tools, Assess aggravating factors & prevent them accordingly, Assess alleviating factors & promote them accordingly BH Goals/Interventions, Comfort Yes Comfort, Problem Start 02/24/2023 0:35 Reviewed plan with, Comfort Patient Patient Progression, Comfort Pt progressing according to plan Comfort, Problem Ongoing Yes . Alteration in Integumentary : Alteration in Integumentary/new 03/13/2023 9:00 EST Alteration in Integumentary Related to Cellulitis, Venous or Arterial Insufficiency Goals & Outcomes, Integumentary Pt will maintain intact skin integrity, Wound will progress towards healing Interventions, Integumentary Keep bed as flat as tolerated to reduce shearing, Keep linen clean, dry and wrinkle free, Keep skin clean & dry, Minimize friction, shear and moisture, Record extent of impaired skin integrity, Reposition pt off reddened areas, Teach Pt/caregiver s/s of infection, Teach Pt/S.O. risks of & measures to prevent skin breakdown BH Goals/Interventions, Integumentary Yes Integumentary, Problem Start 02/22/2023 14:30 Reviewed plan with, Integumentary Patient Patient Progression, Integumentary Pt progressing according to plan . Nursing Data Vital Signs : VITAL SIGNS SECTION 03/13/2023 7:38 EST Temperature 98.0 DegF Temperature Route Oral Pulse Rate 106 bpm H Respiratory Rate 18 br/min Systolic Blood Pressure 126 mm Hg Diastolic Blood Pressure 85 mm Hg H Blood pressure sites Arm, right Mean Arterial Pressure 99 mm Hg Pulse Pressure 41 mm Hg Oxygen Saturation 94 % Mode of Delivery (Oxygen) Room air . Evaluation A/OX3, pt c/o severe both lower legs pain associated with cellulitis, pt requested prn meds around the clock. educated pt to elevate both lower legs repeatly to reduce swelling, pt is non-compliant to leg elevation, pt ambulates in the hallway frequently. Non-labored breathing on room air. Denied chest pain. Plan to be discharged home today. PICC line removed at [facility] with no issue. Call clark within reach, safety maintained, hourly round made. . * Dalila Cerda RN: VERIFY, PERFORM, SIGN Event Display: Progress Note Hospital Authored Date: [id number] Patient: VAHID TO Age: 42 years Sex: Male : 1980 Associated Diagnoses: None Author: Dalila Cerda RN Findings Problem Related to Alteration in Comfort : Alteration in Comfort/new 03/13/2023 2:00 EST Alteration in Comfort Related to Other: BLE pain chronic Goals & Outcomes: Comfort Pt will report acceptable level of comfort & pain control, Pt will state importance of adhering to pain strategy regime, Pt will demonstrate necessary skills to manage pain Interventions Implemented: Comfort Assess pain using appropriate pain scale/tools, Assess aggravating factors & prevent them accordingly, Assess alleviating factors & promote them accordingly Goals/Interventions, Comfort Yes Comfort, Problem Start 02/24/2023 0:35 Reviewed plan with, Comfort Patient Patient Progression, Comfort Pt progressing according to plan Comfort, Problem Ongoing Yes . Alteration in Integumentary : Alteration in Integumentary/new 03/13/2023 2:00 EST Alteration in Integumentary Related to Cellulitis, Venous or Arterial Insufficiency Goals & Outcomes, Integumentary Pt will maintain intact skin integrity, Wound will progress towards healing Interventions, Integumentary Consult Wound Care as needed for further interventions, Encourage & assist pt to change position frequently, Interdisciplinary consults as appropriate, Keep linen clean, dry and wrinkle free, Keep skin clean & dry, Minimize friction, shear and moisture, Monitor r eddened areas for continued or increasing reddness, Record extent of impaired skin integrity, TeachPt/caregiver s/s of infection, Teach Pt/S.O. risks of & measures to prevent skin breakdown Goals/Interventions, Integumentary Yes Integumentary, Problem Start 02/22/2023 14:30 Reviewed plan with, Integumentary Patient Patient Progression, Integumentary Pt progressing according to plan . Nursing Data Vital Signs : VITAL SIGNS SECTION 03/12/2023 19:24 EST Temperature 98.2 DegF Temperature Route Oral Pulse Rate 100 bpm H Respiratory Rate 19 br/min Systolic Blood Pressure 126 mm Hg Diastolic Blood Pressure 87 mm Hg H Blood pressure sites Arm, left Mean Arterial Pressure 100 mm Hg Pulse Pressure 39 mm Hg Oxygen Saturation 96 % Mode of Delivery (Oxygen) Room air . Narrative/Incidental Patient A&Ox4, ambulating independently in hallway at times. Lower extremities with purple discoloration, swelling. Swelling noted to be > to LLE. IV abx infused without complication noted to PICC in right upper arm. PRN pain, anxiety medications utilized. Patient reported chest pain prior to meds, PA Daniela aware. Voiding clear, yellow to urinal. Plan for discharge home today due to abx completion. Bed in low, locked position & call-clark in reach. Patient appears to be sleeping wellduring NOC. . * Wei HENDERSON, Nadya D: PERFORM Event Display: Progress Note Hospital Authored Date: Patient: ??VAHID TO ? Age:??42 Years?Sex:??Male?:??1980?? Subjective History of Present Illness?? 02/05/23 This is 42 years old gentleman with history of schizophrenia, bipolar disease, chronic lymphedema,??disruptive behavior towards hospital staff, persistent??asthma??as well as??chronic pain syndrome.?? Patient self??report not feeling well for about a week.?? In the last several days, noticed nonprod uctive cough, worsening shortness of breath, tightness,??orthopnea.?? Today patient came to ED for evaluation, he was found to have tachypnea, hypoxia??O2 sat??at 80%??on room air, tachycardia.?Chest x-ray and chest CT scan showed bilateral dense infiltrate. ??Patient received??IV azithromycin, Zosyn,??and vancomycin.?? ER requested hospital admission for??acute hypoxic respiratory failure dueto community-acquired pneumonia. ?? Chart reviewed, patient??has been hospitalized??in the past.?? Multiple aggressive behavior, hostility towards staff and visitors identified.?? Private room will be provided.?? Med reconciliation??also completed. ??I restarted patient's psychiatric medications??and Suboxone.?? Since admission, patient had a request??Xanax,??Percocet,??for anxiety and pain control.?? I reiterated the hospital policy regarding??patient's safety and patient care ,and encourage patient to??compliant with treatment??and respect staff.?? Psychiatry evaluation??is requested as patient complained??some of his medication because a side effect of tardive??dyskinesia. ?? History of Present Illness?? 02/21/23 Mr. To??is a 6-year-old gentleman??,with a history of schizoaffective disorder??chronic pain??on Suboxone, asthma,??L??knee??pain,??recent admission for MRSA bacteremia but left AMA on 02/09 who presents with chest pain, shortness of breath, left knee pain. History is obtained from the patient who is a fair historian. ?? He was initially admitted here on 02/05 for respiratory failure, pneumonia.?? He was transferred toB and the plan was for echocardiogram to rule out endocarditis.?? Unfortunately left AMA on 02/09.?? He was discharged on Bactrim.?? He reports taking the antibiotic as prescribed though admits that he only takes Lasix every few days despite it being prescribed daily.?? He comes in today complaining of worsening pain and swelling in his left leg over the past 3 days.?? He also complains of worsening shortness of breath and some chest pain that developed earlier in the day.?? He denies any other associated symptoms. ?? In the ED his labs were unremarkable save for an elevated D-dimer.?? He had a CTA of the chest which was negative.?? He was given vancomycin for cellulitis of his left lower extremity ?? 03/10 Patient is nearing completion of his course of vancomycin (last day is 03/13) and he doesn't want to stay until 03/16/23 He had MRSA bacteremia on 02/05 and RSV + on 02/04 Today he complains of increased swelling of his lower legs with weeping of the RLE He has gained ~ 30# over the past month He asks for additional Xanax, which I declined He won't be able to start methadone program outpatient until 03/16/23, and wants to be able to be discharge on 03/13. He says he would be willing to allow his mother to control a small number of oxycodone tabs until he can be seen on 03/16. He is on a waiting list for a new PCP at [facility] in [place] ?? 03/11 Patient reports increased pain and swelling in the L knee and LLE. Reports that he twisted his kneegetting OOB yesterday evening with sudden increase of pain in the left knee, particularly the L posterior knee. He has been very restless today and has been up rather than lying in bed. His left leg is discernibly more swollen today, but is so large that anatomy is obscured. He has voided as much as 1.4 L at a time. He says that he previously used bethanechol which more effective for him than Flomax. I ran all his meds in [employer] for interactions with bethanechol and there were none, I have added it to Flomax, which I also restarted. Weight up 0.8 kg ?? 03/12 Weight unchanged, but net urine out - 2.7 L US LLE consistent with a DVT. Started on Xarelto. Patient may have previously had a PE and did fillEliquis for a month in 12/04 (no PE dx'd??here though.)?? Reviewed all Rxs in anticipation of discharge tomorrow AM ?? Review of Systems Objective Measurements?? Height: 183 cm (03/12/23) Weight: 294.1 kg (03/12/23) Dry Weight: 125.2 kg (02/22/23) Body Mass Index:??37.12 kg/m2??Critical (02/25/23) ?? Vital Signs?? Temperature: 97.6 DegF (03/12/23 08:00:00) Temperature Route: Oral (03/12/23 08:00:00) Pulse Rate:??94 bpm??High (03/12/23 08:00:00) Respiratory Rate: 18 br/min (03/12/23 18:19:00) Systolic Blood Pressure: 126 mm Hg (03/12/23 08:00:00) Diastolic Blood Pressure:??91 mm Hg??High (03/12/23 08:00:00) Blood pressure sites: Arm, left (03/12/23 08:00:00) Mean Arterial Pressure: 103 mm Hg (03/12/23 05:13:00) Pulse Pressure: 46 mm Hg (03/12/23 05:13:00) Oxygen Saturation: 99 % (03/12/23 08:00:00) Mode of Delivery (Oxygen): Room air (03/12/23 08:00:00) Early Warning Score: 2 (03/12/23 18:19:47) ?? Physical Exam Legs are less edematous _ Inpatient Medications Medications (35) Active SCHEDULED: (21) Ammonium Lactate 12% Cream (Ammonium Lactate 12% Topical) ??1 application, Topically, 2 times a day Bethanechol 25 mg Tablet (bethanechol 25 mg oral tablet) ??25 mg, By Mouth, 4 times a day Bumetanide 1 mg Tablet (Bumex Tablet) ??2 mg, By Mouth, 2 times a day BuPROPion XL 150 mg Tablet (BuPROpion XL Tablet) ??300 mg, By Mouth, Daily BusPIRone 10 mg Tablet (busPIRone 10 mg oral tablet) ??30 mg, By Mouth, 2 times a day Divalproex Sodium 500mg ER Tablet + Divalproex Sodium 250mg ER Tablet (Depakote ER Tablet) ??1,750 mg, By Mouth, Daily Docusate Sodium 100 mg Capsule (docusate sodium 100 mg oral capsule) ??100 mg 1 capsule, By Mouth, 2 times a day Ferrous Sulfate 325 mg EC Tablet (ferrous sulfate 325 mg oral enteric coated tablet) ??325 mg, By Mouth, Every other day Fluticasone Propionate 50mcg/inh Nasal [place] (fluticasone 50 mcg/inh nasal spray) ??50 mcg 1 sprays, Nares, Both, 2 times a day Furosemide Inj (Lasix ??Inj) ??80 mg 8 mL, IV Push Slowly, 3 times a day Levothyroxine 75 mcg Tablet (levothyroxine 0.075 mg oral tablet) ??75 mcg, By Mouth, Daily Methadone 10 mg Tablet (Methadone Tablet) ??100 mg, By Mouth, Daily NaCl 0.9% Flush 3ml (NaCL 0.9% Flush) ??5 mL, IV Push, Daily Pantoprazole 40 mg EC Tablet (pantoprazole 40 mg oral delayed release tablet) ??40 mg, By Mouth, Daily Prazosin 5 mg Capsule (prazosin 5 mg oral capsule) ??5 mg, By Mouth, 2 times a day Pregabalin 150 mg Capsule (pregabalin 150 mg oral capsule) ??150 mg, By Mouth, 2 times a day Rivaroxaban 15 mg Tablet (Rivaroxaban Tablet) ??15 mg, By Mouth, 2 times a day with meals Rivaroxaban 20 mg Tablet (Rivaroxaban Tablet) ??20 mg, By Mouth, Daily at supper Senna Tablet (Senna 8.6 mg oral tablet) ??8.6 mg 1 tablet, By Mouth, Daily at bedtime Tamsulosin 0.4 mg Capsule (tamsulosin 0.4 mg oral capsule) ??0.4 mg, By Mouth, Daily Vancomycin 1250 mg Inj (Vancomycin IVPB) ??1,250 mg, IVPB, Every 12 hours CONTINUOUS: (0) PRN: (14) Acetaminophen 325 mg Tablet (Tylenol 325 mg oral tablet) ??650 mg, By Mouth, Every 6 hours Albuterol 90mcg/Inhalation Inhaler HFA (Albuterol 90 mcg Inhaler) ??180 mcg 2 puffs, Inhalation, Every 4 hours Alprazolam 0.5 mg Tablet (ALPRAZolam 0.5 mg oral tablet) ??0.5 mg, By Mouth, Daily in AM Alprazolam 0.5 mg Tablet (Xanax 0.5 mg oral tablet) ??1 mg, By Mouth, Daily at bedtime Carisoprodol 350 mg Tablet (carisoprodol 350 mg oral tablet) ??350 mg, By Mouth, 2 times a day HydrOXYzine Pamoate 25mg Capsule (hydrOXYzine pamoate 25 mg oral capsule) ??50 mg, By Mouth, 3 times a day NaCl 0.9% Flush 3ml (NaCL 0.9% Flush) ??5 mL, IV Push, Every hour nalOXONE ??400mcg/mL Inj (nalOXONE Inj) ??0.2 mg 0.5 mL, IV Push, Every 5 minutes Nicotine 2 mg Gum (Nicotine Gum) ??2 mg, Chew, Every hour Nicotine 2 mg Lozenge (Nicotine Lozenge) ??2 mg, By Mouth, Every hour OxyCODONE 5 mg IR Tablet (oxyCODONE 5 mg oral tablet) ??10 mg, By Mouth, Every 4 hours Promethazine 25 mg Tablet (Phenergan 25 mg oral tablet) ??12.5 mg 0.5 each, By Mouth, Every 6 hours Quetiapine 25 mg Tablet (SEROquel 25 mg oral tablet) ??50 mg, By Mouth, Every 8 hours Sodium Chloride 0.65% Nasal [place] (Salinex [place]) ??1 sprays, Nares, Both, 4 times a day Results Recent Labs CHEM GENERAL Creatinine-Blood 1.0 mg/dL ()?? 03/11/2023 06:07 Estimated GFR Creatinine 98 ML/MIN/1.73 M2 ()?? 03/11/2023 06:07 Imaging(s) US Doppler Ext Lower Venous Left ?? 03/11/2023 19:04??by Darryl Rodríguez MD IMPRESSION: 1. Findings highly concerning for thrombosis of the left popliteal vein. 2. Small left Norwood's cyst. Assessment/Plan MRSA bacteremia (R78.81):??Patient will complete vancomycin on 03/13 ?? Venous hypertension, chronic, with inflammation (I87.329) Bilateral lower limb edema (R60.0) Reports intolerance of any type of compression Edema improving. Will continue a diuretic x 2 weeks. Acute worsening of L knee swelling and posterior knee and calf pain with likely DVT, which may be arecurrent DVT. Start Xarelto. Patient is familiar with taking a DOAC. ?? Ulcer of extremity due to chronic venous insufficiency (L98.499):??Areas have now opened up again related to swelling. Patient is unable to tolerate any compression tx, which makes treatment very difficult. ?? Iron deficiency anemia (D50.9) Will need a GI evaluation as an outpatient Full dose PPI empirically Add FeSO4 QOD ?? Hypothyroidism (E03.9):??TSH mildly elevated, increase replacement to 75 mcg/D. Repeat TSH in 1 month ?? Severe obesity (BMI 35.0-39.9) with comorbidity (E66.01):??Noted ? Generalized anxiety disorder (F41.1) Bipolar disorder with depression (F31.30) Schizoaffective disorder, bipolar type (F25.0) Antisocial personality disorder in adult (F60.2) Chronic pain syndrome (G89.4) Continue usual medications Followed at [facility] ?? Opiate dependence, continuous (F11.20):??Has been transitioned back??to methadone which he has found more effective in the past than??Suboxone ?? Alcohol use disorder, moderate, in early remission (F10.21):??Noted ?? 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 Unable to take a NSAID currently due to Fe deficiency anemia and unable to have surgical tx due to morbid obesity and chronic venous insufficiency.? VTE Prophylaxis:??Lovenox, ambulatory Code Status:??Full Tobacco Use Treatment:??Accepted nicotine replacement Anticipate D/C home??tomorrow at 11 AM ?? Note * Belen Tesfaye RN: PERFORM Event Display: Discharge/Transfer Note Hospital Authored Date: [id number] Nursing Discharge Note Entered On: 03/13/2023 10:59 EST Performed On: 03/13/2023 10:58 EST by Belen Tesfaye RN Nursing Discharge Note 2 Discharge Time : 03/13/2023 11:14 EST Belen Tesfaye RN - 03/13/2023 11:14 EST Discharge Level of Care at Discharge : Home/Alf/Foster Care Patient Left Unit Via : Wheelchair Patient Accompanied Off Unit with : Ambulance/Chair Van Personnel Handover Given to Transport Personnel : Yes DC Instructions Provided & Signed by Pt : Yes Patient Understands D/C Instructions : Yes Patient Instructions Discharge Signed : Yes Did Pt have Specialty Bed or Wound Vac : No Belen Tesfaye RN - 03/13/2023 10:58 EST * Nadya Carvajal MD D: PERFORM, MODIFY, MODIFY Event Display: Discharge/Transfer Note Hospital Authored Date: [id number] Patient: ??VAHID TO ? Age:??42 Years?Sex:??Male?:??1980?? Patient Information Discharge Location: Med Surg Primary Care Physician: Not on Staff, PCP Admit Date/Time: 02/22/23 10:18 Discharge Disposition Discharge Disposition: Home: No Services Discharge Diagnosis MRSA bacteremia (R78.81) Severe obesity (BMI 35.0-39.9) with comorbidity (E66.01) Ulcer of extremity due to chronic venous insufficiency (L98.499) Generalized anxiety disorder (F41.1) Iron deficiency anemia (D50.9) Bilateral lower limb edema (R60.0) Hypothyroidism (E03.9) Bipolar disorder with depression (F31.30) Venous hypertension, chronic, with inflammation (I87.329) Chronic pain syndrome (G89.4) Opiate dependence, continuous (F11.20) Schizoaffective disorder, bipolar type (F25.0) Antisocial personality disorder in adult (F60.2) PTSD (post-traumatic stress disorder) (F43.10) Alcohol use disorder, moderate, in early remission (F10.21) Anticoagulated (Z79.01) DVT of popliteal vein (I82.439) Tricompartment osteoarthritis of both knees (M17.0) Bipolar disorder with depression Chronic pain syndrome GERD (gastroesophageal reflux disease) Generalized anxiety disorder _ Discharge Medications Ammonium Lactate 12% (ammonium [...] mg oral tablet)?1?tab(s)?30?Milligram?By Mouth?2 times a day Chlordiazepoxide (chlordiazePOXIDE 25 mg oral capsule)?See Instructions?2 capsule By Mouth Every 6 hours x 1 day, then 1 cap every 6 hours x 1 day, then 1 cap every 12 hours Divalproex Sodium (Depakote ER 500 mg oral tablet, extended release)?3?tab(s)?1,500?Milligram?By Mouth?Daily?total dose is 1750 QD Divalproex Sodium (Depakote ER 250 mg oral tablet, extended release)?1?tab(s)?250?Milligram?By Mouth?Daily?Total daily dose is 1750 Ferrous Sulfate (ferrous sulfate 325 mg oral enteric coated tablet)?325?Milligram?1?tablet?By Mouth?Every other day Levothyroxine (levothyroxine 75 mcg (0.075 mg) oral tablet)?75?Microgram?By Mouth?Daily Oxycodone (oxyCODONE 10 mg oral tablet)?2?tab(s)?20?Milligram?By Mouth?Every 4 hours?as needed?as needed for pain Pantoprazole (pantoprazole 40 mg oral delayed release [...] tablet)?2?Milligram?1?tablet?By Mouth?3 times a day?as needed?Spasm ? Quality Measures Tobacco Use Treatment:?Cessation Medication Prescribed on Discharge:??Tobacco Cessation Medication Prescribed Future Appointments Wednesday. 2023 8:20 AM EDT ?? With: Jer EMAIL PRODUCTION SPECIALIST, Tania Villalpando Where: [address] [address]- Status: Pending Hospital Course History of Present Illness 02/05/23 This is 42 years old gentleman with history of schizophrenia, bipolar disease, chronic lymphedema, disruptive behavior towards hospital staff, persistent asthma as well as chronic pain syndrome. Patient self report not feeling well for about a week. In the last several days, noticed nonproductive cough, worsening shortness of breath, tightness, orthopnea. Today patient came to ED for evaluation, he was found to have tachypnea, hypoxia O2 sat at 80% on room air, tachycardia. Chest x-ray and chest CT scan showed bilateral dense infiltrate. Patient received IV azithromycin, Zosyn, and vancomycin. ER requested hospital admission for acute hypoxic respiratory failure due to community-acquired pneumonia. ?? Chart reviewed, patient has been hospitalized in the past. Multiple aggressive behavior, hostility towards staff and visitors identified. Private room will be provided. Med reconciliation also completed. I restarted patient's psychiatric medications and Suboxone. Since admission, patient had a request Xanax, Percocet, for anxiety and pain control. I reiterated the hospital policy regarding patient's safety and patient care ,and encourage patient to compliant with treatment and respect staff. Psychiatry evaluation is requested as patient complained some of his medication because a side effect of tardive dyskinesia. ?? History of Present Illness 02/21/23 Mr. To is a 6-year-old gentleman ,with a history of schizoaffective disorder chronic pain on Suboxone, asthma, L knee pain, recent admission for MRSA bacteremia but left AMA on 02/09 who presents with chest pain, shortness of breath, left knee pain. History is obtained from the patient who is a fair historian. ?? He was initially admitted here on 02/05 for respiratory failure, pneumonia. He was transferred to [facility] [place] [place] and the plan was for echocardiogram to rule out endocarditis. Unfortunately left AMA on 02/09. Hewas discharged on Bactrim. He reports taking the antibiotic as prescribed though admits that he only takes Lasix every few days despite it being prescribed daily. He comes in today complaining of worsening pain and swelling in his left leg over the past 3 days. He also complains of worsening shortness of breath and some chest pain that developed earlier in the day. He denies any other associated symptoms. ?? In the ED his labs were unremarkable save for an elevated D-dimer. He had a CTA of the chest which was negative. He was given vancomycin for cellulitis of his left lower extremity ?? Hospital Course #MRSA bacteremia on 02/05 He has completed a 4 week course of vancomycin ?? #Chronic venous insufficiency He is unable to tolerate any compression of the lower extremities and doesn't elevate his legs?? He gained ~ 30# over this hospitalization with worsening of swelling in his lower extremities. He was started on IV Lasix and will continue with Bumex for 2 additional weeks Discharge weight is 294# ?? #New DVT LLE + DVT, scan done for sudden increase in pain and swelling. He has been on Eliquis previously (12/04) but details of reason are unavailable (? PE.) He was ambulatory and receiving Lovenox so may now need long-term anticoagulation. ?? #Opiate dependence Patient was on Suboxone, but reported that it wasn't as helpful as methadone. He was started on methadone 100 mg QD. He will not be able to start in a methadone program until 03/16/22. I will continue the oxycodone he has been getting in addition to methadone for 3 days. ?? Objective Assessment and Plan MRSA bacteremia (R78.81):??Completed 4 weeks of vancomycin ?? Venous hypertension, chronic, with inflammation (I87.329) Bilateral lower limb edema (R60.0) Reports intolerance of any type of compression Edema improving. Will continue a diuretic x 2 weeks. Acute worsening of L knee swelling and posterior knee and calf pain with and US +??DVT, which may be a recurrent DVT.??Xarelto started on 03/12. Patient is familiar with taking a DOAC. ?? Ulcer of extremity due to chronic venous insufficiency (L98.499):??Areas have now opened up again related to swelling. Patient is unable to tolerate any compression tx, which makes treatment very difficult. At home he uses Xeroform and gauze with medical tape for wound management. ?? Iron deficiency anemia (D50.9) Will need a GI evaluation as an outpatient Full dose PPI empirically Add FeSO4 QOD ?? Hypothyroidism (E03.9):??TSH mildly elevated, increase replacement to 75 mcg/D. Repeat TSH in 1 month ?? Difficulty voiding: Patient can void 900-1400 cc, indicative of a dilated bladder. He reported thatbethanechol worked better than Flomax in the past. He has been restarted on both and should F/U with urology as an outpatient. ?? Severe obesity (BMI 35.0-39.9) with comorbidity (E66.01):??Noted ? Generalized anxiety disorder (F41.1) Schizoaffective disorder, bipolar type (F25.0) Antisocial personality disorder in adult (F60.2) Chronic pain syndrome (G89.4) Continue usual medications I will not prescribe a long-term benzo. Patient reports he had been buying them off the street. Will give Librium taper over 3 days only. His psychiatrist is through [facility] in [place] ?? Opiate dependence, continuous (F11.20):??Has been transitioned back??to methadone which he has found more effective in the past than??Suboxone. To present to methadone clinic on 03/16/23. ?? Alcohol use disorder, moderate, in early remission (F10.21):??Noted ?? 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 Unable to take a NSAID currently due to Fe deficiency anemia and unable to have surgical tx due to morbid obesity and chronic venous insufficiency.??Continue oxycodone 10 mg Q 4H until 1/2 methadone appointment. ?? Vital Signs?? Temperature: 98 DegF (03/13/23 07:38:00) Temperature Route: Oral (03/13/23 07:38:00) Pulse Rate:??106 bpm??High (03/13/23 07:38:00) Respiratory Rate: 18 br/min (03/13/23 07:38:00) Systolic Blood Pressure: 126 mm Hg (03/13/23 07:38:00) Diastolic Blood Pressure:??85 mm Hg??High (03/13/23 07:38:00) Blood pressure sites: Arm, right (03/13/23 07:38:00) Mean Arterial Pressure: 99 mm Hg (03/13/23 07:38:00) Pulse Pressure: 41 mm Hg (03/13/23 07:38:00) Oxygen Saturation: 94 % (03/13/23 07:38:00) Mode of Delivery (Oxygen): Room air (03/13/23 07:38:00) Early Warning Score: 4 (03/13/23 07:39:47) ?? Therapeutic Activity Therapeutic Activities/Mobility/Balance Comments on treatment indicated: PT eval complete see POC. pt from home. ??lives with mother. flight of stairs in the home. ??pt with BLE knee pain. L>R. ??rec home w PT services. (02/24/23 09:42:00) Plan of care PT: Gait training, Transfer training, Therapeutic exercise, Functional Activities, Balance training (02/24/23 09:42:00) Problems PT: Impaired functional mobility, Difficulty walking (02/24/23 09:42:00) Treatment Indicated-PT: Yes (02/24/23 09:42:00) Discharge recommendations: Home with services (02/24/23 09:42:00) Distance pt will ambulate: 100' LRD (02/24/23 09:42:00) Ambulation, ??PT Plan: Independent (03/03/23 13:54:00) Barriers to goal achievement: Multiple medical problems, Psychosocial factors (02/24/23 09:42:00) Bed mobility: PT Plan: Independent (03/03/23 13:54:00) Facilitators to goal achievement: Motivated, Supportive family, Previously Independent (02/24/23 09:42:00) Goals Patient/Family: walk further, ??decrease pain. (03/03/23 13:54:00) [facility] PT goals: At baseline for functional mobility (02/24/23 09:42:00) Plan Discussed w/Pt,Family/Agreed Upon: Yes (02/24/23 09:42:00) Plan discussed with care team PT: RN, rail manager (02/24/23 09:42:00) PT Duration: 1 week (02/24/23 09:42:00) PT Short Term Goals: home w services. (03/03/23 13:54:00) Rehab potential: Good (02/24/23 09:42:00) Stairs (PT): 1 flight (02/24/23 09:42:00) Transfer bed to chair PT Plan: Independent (03/03/23 13:54:00) ?? . Physical Exam Alert Lungs: Clear to auscultation?? Heart: Regular rhythm,?? no murmur Extremities: 3+ pitting edema to knees bilaterally, chronically thickened/hyperpigmented skin from chronic venous stasis.?? Pictures in CIS. Multiple small open areas on both lower legs are clean. Consultants Serene HENDERSON, Veda Knutson MD, Edgard Hernandez ?? Follow-Up Appointments Added Follow Up ?Time Frame ?Comments Jer EMAIL PRODUCTION SPECIALIST, Tania Villalpando?1 week: call to discuss follow up visit Patient Instructions Call [facility] on Wednesday for follow up Give your medications to your mother to monitor until Wednesday Results Discharge Labs BLOOD COUNT & DIFF WBC 4.0 k/mm3 ()?? 03/03/2023 06:31 RBC 4.00 m/mm3 (Low)?? 03/03/2023 06:31 Hgb 10.1 Gm/dL (Low)?? 03/03/2023 06:31 Hct 33.8 % (Low)?? 03/03/2023 06:31 MCV 84.5 femtoliters ()?? 03/03/2023 06:31 MCH 25.3 pg (Low)?? 03/03/2023 06:31 MCHC 29.9 g/dL (Low)?? 03/03/2023 06:31 Platelet Count 164 k/mm3 ()?? 03/03/2023 06:31 RDW-SD 48.1 femtoliters (High)?? 03/03/2023 06:31 MPV 9.5 femtoliters ()?? 03/03/2023 06:31 ?? CARDIAC Nt-Probnp 44 pg/mL ()?? 02/21/2023 20:58 High Sensitivity Troponin (HSTnT) 13 ng/L ()?? 02/21/2023 20:58 ?? CHEM GENERAL Sodium 135 mmol/L ()?? 03/13/2023 04:29 Potassium 3.2 mmol/L (Low)?? 03/13/2023 04:29 Chloride 90 mmol/L (Low)?? 03/13/2023 04:29 Bicarbonate Level 35 mmol/L (High)?? 03/13/2023 04:29 Anion Gap 10 ()?? 03/13/2023 04:29 Glucose Level 80 mg/dL ()?? 03/03/2023 06:31 Hemoglobin A1C (Monitoring) 5.3 % ()?? 03/10/2023 13:30 BUN 11 mg/dL ()?? 03/03/2023 06:31 Creatinine-Blood 1.0 mg/dL ()?? 03/11/2023 06:07 Estimated GFR Creatinine 98 ML/MIN/1.73 M2 ()?? 03/11/2023 06:07 Calcium 9.1 mg/dL ()?? 03/03/2023 06:31 Magnesium 2.0 mg/dL ()?? 03/10/2023 13:30 Protein, Total 6.4 Gm/dL ()?? 02/21/2023 19:04 Albumin 4.1 Gm/dL ()?? 03/10/2023 13:30 AG Ratio 1.3 ()?? 02/21/2023 19:04 Alkaline Phosphatase 109 units/L ()?? 02/21/2023 19:04 AST (SGOT) 16 units/L ()?? 02/21/2023 19:04 ALT (SGPT) 34 units/L ()?? 03/10/2023 13:30 Bilirubin, Total 0.2 mg/dL ()?? 02/21/2023 19:04 Vitamin B12 Level 755 pg/mL ()?? 02/25/2023 07:49 Folic Acid Level 17.6 ng/mL ()?? 02/25/2023 07:49 Iron Level 20 mcg/dL (Low)?? 02/25/2023 06:38 Iron Binding Capacity, Unsaturated 388 mcg/dL (High)?? 02/25/2023 06:38 Iron Binding Capacity, Estimated Total 408 mcg/dL ()?? 02/25/2023 06:38 % Iron Saturation 5 % (Low)?? 02/25/2023 06:38 Ferritin Level 43 ng/mL ()?? 02/25/2023 06:38 C-Reactive Protein 0.9 mg/dL (High)?? 02/21/2023 19:04 ? COAG INR 1.0 ()?? 02/22/2023 21:39 Protime (PT) 10.2 seconds ()?? 02/22/2023 21:39 APTT 33.7 seconds (High)?? 02/22/2023 21:39 D-Dimer 3.63 mg/L FEU (High)?? 03/13/2023 04:29 ?? ENDOCRINE/TUMOR MARKER TSH 8.41 uIU/mL (High)?? 03/10/2023 13:30 ? HEME OTHER Sed Rate 21 mm/hr (High)?? 02/21/2023 19:04 ?? TOXICOLOGY/TDM Valproic Level 47.7 mg/L (Low)?? 03/10/2023 13:30 Vancomycin Level, Random 8.2 mg/L (Low)?? 02/23/2023 11:12 Vancomycin Level, Trough 14.2 mg/L ()?? 03/08/2023 10:30 ? Imaging(s) CT Angio Chest ?? 02/21/2023 IMPRESION: Study slightly limited by timing of injection. Given this limitation there is no evidence for pulmonary embolus. Marked improvement in bilateral multifocal pneumonia is seen on 02/05/2023. No new acute abnormality. ?? Echocardiogram - Complete ?? 02/24/2023 Summary The left ventricle is normal in size, wall thickness and systolic function.??The ejection fraction is 55-65%. The right ventricular size is at the upper limits of normal.??Right ventricular systolic function appears preserved. The tricuspid valve is normal in appearance with mild tricuspid??regurgitation. ??Impressions: ??No evidence of vegetation. ?? Knee 3 Views Left ?? 02/21/2023 Small joint effusion and severe tricompartmental degenerative osteoarthritis. ?? US Doppler Ext Lower Venous Left ?? 03/11/2023 IMPRESSION: 1. Findings highly concerning for thrombosis of the left popliteal vein. 2. Small left Norwood's cyst. ?? US Doppler Ext Lower Venous Left ?? 02/24/2023 OTHER FINDINGS: Likely complex Norwood's cyst within the left popliteal fossa measuring 5.2 x 0.8 x 3.7 cm. IMPRESSION: No evidence of deep venous thrombosis from the groin through the popliteal vein. Calf veins not assessed with portable technique. ? 80 minutes spent on discharge * Fanny Zacarias RN: PERFORM Event Display: Patient Education/Instruction Authored Date: [id number] Inpatient Adult Discharge Instructions [address] [id number] Name: VAHID TO : 1980 Visit: 02/22/2023 10:18:00 Current Date: 03/13/2023 10:47 Account: [id number] Inpatient Adult Discharge Instructions We would like [...] and their families. Surveys are administered by [employer] ?? If further treatment with your primary care physician or another doctor is recommended, it is important for you to keep the appointment. Call your primary care physician or return to the Emergency Department immediately if your condition worsens, fails to improve, or new symptoms develop. If you need to find a doctor, you can call [facility] [employer] Link for a referral at [phone] or toll free at [phone]) or log in to [email or web address].. ?? [facility], in keeping with [facility] guidance, no longer requires face masks for [...] a health care [facility] of your choosing. [employer] is a website that allows you to securely view your medical information including your hospital discharge summary, office visit summaries, medications and follow-up visits. You can also request appointments, renew medications, and request access to your medical information using a health care [place] of your choosing, or just ask a question. You can enroll at [email or web address] or register during your next office visit. You have been discharged from [facility], Patient Care Unit: Med Surg. If you have any questions regarding these instructions after you leave, please call us and we will be happy to assist you. [facility] Your Care Team Attending Physician Nadya Carvajal MD Consulting Providers Carter HENDERSON, Kyler Cast MD, Veda Knutson MD, Edgard Hernandez Discharging Providers Nadya Carvajal MD Reason for Admission Coming from home with acute on chronic B/L leg swelling Your Diagnosis MRSA bacteremia Severe obesity (BMI 35.0-39.9) with comorbidity Schizoaffective disorder, bipolar type Ulcer of extremity due to chronic venous insufficiency Generalized anxiety disorder Iron deficiency anemia Hypothyroidism Chronic pain syndrome Opiate dependence, continuous PTSD (post-traumatic stress disorder) Antisocial personality disorder in adult Bilateral lower limb edema Bipolar disorder with depression Venous hypertension, chronic, with inflammation Alcohol use disorder, moderate, in early remission Tricompartment osteoarthritis of both knees DVT of popliteal vein Anticoagulated Anticoagulated Tests Performed Below is a partial list of the tests performed during your hospitalization. You may have had other tests and procedures not included in this list. Please discuss all test results with your provider. Albumin Level ALT Basic Metabolic Panel BUN Calcium Level CBC CBC w/ Differential Comprehensive Metabolic Panel Creatinine CRP D Dimer ELECTROLYTES ESR FERRITIN FOLIC ACID Glucose Level Hgb A1C (Monitoring) High??Sensitivity??Troponin T HOLD GEL TUBE HOLD FERNANDO TUBE HOLD GREEN TUBE HOLD LAVENDER TUBE INR IRON & TIBC Lytes Magnesium Level PROBNP PTT TSH Valproic Acid Level Vancomycin Random Vancomycin Trough VITAMIN B12 CT Angio Chest CXR Portable Chest US Doppler Ext Lower Venous Left Venous Doppler Ext Lower Left (US) XR Knee 3 Views Left Primary Care Provider Not on Staff, PCP Advance Directive Health Care Proxy on File Yes - Health Care Proxy Discharge Vitals Temperature: 98 DegF Height: 183 cm Pulse Rate:??106 bpm??High Weight: 133.3 kg Respiratory Rate: 18 br/min Body Mass Index:??37.12 kg/m2??Critical Systolic Blood Pressure: 126 mm Hg Body surface area: 2.51 Diastolic Blood Pressure:??85 mm Hg??High ?? Oxygen Saturation: 94 % ?? Studies Pending All tests and labs ordered during this hospital stay have been completed unless listed below. Please discuss all pending results with your provider listed above in these instructions. ?? Creatinine What to do next Instructions From Your Doctor Discharge Orders Scheduled Follow-Up Appointments Wednesday. 2023 8:20 AM EDT ?? With: Tania Randle NP Where: [facility] [address] [place] [address]- Status: Pending You Need to Schedule the Following Appointments Follow Up with??Tania Randle NP When:??Within 1 week: call to discuss follow up visit Where: [address] [place] [address]- Discharge Medications VAHID TO :1980 Visit Date:02/22/2023 Medications: Please continue your medications until treatment is completed or stopped by your provider. Medications not listed below should be discontinued. Discuss any questions related to medications with your provider. What How Much When Why Instructions Next Dose New Bumetanide (bumetanide 2 mg oral tablet) 2 Milligram Oral Twice a day Pickup at [facility] #[id number] tonight 9PM New Chlordiazepoxide (chlordiazePOXIDE 25 mg oral capsule) See instructions 2 capsule By Mouth Every 6 hours x 1 day, then 1 cap every 6 hours x 1 day, then 1 cap every 12 hours ?? Pickup at [facility] #[id number] this afternoon 3PM New Potassium Chloride (potassium chloride 20 mEq oral tablet, extended release) 1 tab(s) Oral Daily Pickup at [facility] #[id number] tomorrow morning New Tizanidine (tiZANidine 2 mg oral tablet) 1 tab(s) Oral 3 times a day as needed for Spasm Pickup at [facility] #[facility] 3pm and??5PM Changed BuPROpion (buPROPion 300 mg/ 24 hours (XL) oral tablet, extended release) 1 tab(s) Oral Daily Pickup at [facility] #[id number] tomorrow morning Changed BusPIRone (busPIRone 30 mg oral tablet) 1 tab(s) Oral Twice a day [id number] Changed Divalproex Sodium (Depakote ER 250 mg oral tablet, extended release) 1 tab(s) Oral Daily Total daily dose is 1750 ?? Pickup at [facility] #[id number] tomorrow morning Changed Divalproex Sodium (Depakote ER 500 mg oral tablet, extended release) 3 tab(s) Oral Daily total dose is 1750 QD ?? Pickup at [facility] #[id number] tomorrow morning Changed Levothyroxine (levothyroxine 75 mcg (0.075 mg) oral tablet) 75 Microgram Oral Daily Pickup at [facility] #[id number] tomorrow morning Changed Pantoprazole (pantoprazole 40 mg oral delayed release tablet) 40 Milligram Oral Daily Pickup at [facility] #[id number] tomorrow morning Changed Prazosin (prazosin 5 mg oral capsule) 1 capsule Oral Twice a day Pickup at [facility] #[id number] tonight 9PM Changed Senna (Senna 8.6 mg oral tablet) 1 tab(s) Oral Daily at Bedtime Pickup at [facility] #[id number] tonight 9PM Unchanged Ammonium Lactate 12% (ammonium lactate 12% topical cream) See instructions Apply to lower legs and feet 2 times a day, avoiding open areas ?? Pickup at [id number] tonight 9PM Unchanged Bethanechol (bethanechol 25 mg oral tablet) 25 Milligram Oral 4 times a day Pickup at [facility] #[id number] 1pm, 5pm, 9pm Unchanged Ferrous Sulfate (ferrous sulfate 325 mg oral enteric coated tablet) 1 tab(s) Oral Every other day Pickup at [facility] #[id number] tomorrow morning Unchanged Oxycodone (oxyCODONE 10 mg oral tablet) 2 tab(s) Oral Every 4 hours as needed for as needed for pain Pickup at [facility] #[id number] as needed Unchanged Pregabalin (pregabalin 150 mg oral capsule) 1 capsule Oral Twice a day Chronic pain syndrome tonight 9PM Unchanged Promethazine (promethazine 25 mg oral tablet) 0.5 Each Oral Every 6 hours as needed for Nausea & Vomiting Pickup at [facility] #[id number] as needed Unchanged Quetiapine (SEROquel 25 mg oral tablet) 50 Milligram Oral Every 8 hours as needed for Anxiety Pickup at [facility] #[id number] as needed Unchanged rivaroxaban (rivaroxaban 15 mg oral tablet) 15 Milligram Oral Two times a day with meals Pickup at [facility] #[id number] 5pm today Unchanged rivaroxaban (rivaroxaban 20 mg oral tablet) 20 Milligram Oral Daily at supper Pickup at [facility] #[id number] 5PM today Unchanged Tamsulosin (tamsulosin 0.4 mg oral capsule) 0.4 Milligram Oral Daily Pickup at [facility] #[id number] tomorrow morning Pharmacy Information [facility] #[id number]: [address] [place], [place] [id number] [phone] ?? What How Much When Comments Stop Taking Acetaminophen/ Codeine (acetaminophen-codeine 300 mg-30 mg oral tablet) 1 tab(s) TAKE 1 TABLET BY MOUTH EVERY 6 HOURS NEEDED FOR PAIN, DO NOT DRIVE OR DRINK ALCOHOL ?? Stop Taking Buprenorphine-Naloxone (buprenorphine-naloxone 8 mg-2 mg sublingual film) 2 Film Sublingual Daily Duration: 7 Days Stop Taking Diclofenac (diclofenac sodium 75 mg oral delayed release tablet) 1 tab(s) Oral Twice a day Stop Taking Docusate (docusate sodium 100 mg oral capsule) 1 capsule Oral Twice a day Stop Taking HydrOXYzine (hydrOXYzine pamoate 50 mg oral capsule) 1 capsule Oral 3 times a day as needed for Anxiety Stop Taking Methocarbamol (methocarbamol 500 mg oral tablet) TAKE 1 TABLET BY MOUTH THREE TIMES DAILY NEEDED FOR MUSCLE SPASM ?? Stop Taking Montelukast (montelukast 10 mg oral tablet) 1 tab(s) Oral Daily Test Results Below is a partial list of the most recent Laboratory test results done prior to this discharge. You may have had other tests and procedures not included in this list. Please discuss all test resultswith your provider. Est Creatinine Clearance - 107.93 mL/min (03/10/2023) Albumin Level (03/10/2023) ???Albumin - 4.1 Gm/dL ALT (03/10/2023) ???ALT (SGPT) - 34 units/L Basic Metabolic Panel (02/28/2023) ???Sodium - 143 mmol/L???Potassium - 4.5 mmol/L???Chloride - 105 mmol/L???Bicarbonate Level - 31 mmol/L???Anion Gap - 7???Glucose Level - 128 mg/dL???BUN - 13 mg/dL???Creatinine-Blood - 0.7 mg/dL???Estimated GFR Creatinine - 119 ML/MIN/1.73 M2???Calcium - 9.0 mg/dL BUN (03/03/2023) ???BUN - 11 mg/dL Calcium Level (03/03/2023) ???Calcium - 9.1 mg/dL CBC (03/03/2023) ???WBC - 4.0 k/mm3???RBC - 4.00 m/mm3???Hgb - 10.1 Gm/dL???Hct - 33.8 %???MCV - 84.5 femtoliters???MCH - 25.3 pg???MCHC - 29.9 g/dL???Platelet Count - 164 k/mm3???RDW-SD - 48.1 femtoliters???MPV - 9.5 femtoliters???Nucleated RBC (Automated) - 0.0 #/100 WBC'S???Abs. NRBC - 0.0 k/mm3 CBC w/ Differential (02/21/2023) ???WBC - 4.7 k/mm3???RBC - 3.35 m/mm3???Hgb - 8.6 Gm/dL???Hct - 27.8 %???MCV - 83.0 femtoliters???MCH - 25.7 pg???MCHC - 30.9 g/dL???Platelet Count - 241 k/mm3???RDW-SD - 47.9 femtoliters???MPV - 9.7femtoliters???Nucleated RBC (Automated) - 0.0 #/100 WBC'S???Abs. NRBC - 0.0 k/mm3???Abs. Neut - 2.3 k/mm3???Abs. Lymph - 1.6 k/mm3???Abs. [place]yenne - 0.6 k/mm3???Abs. Eo - 0.2 k/mm3???Abs. Baso - 0.0 k/mm3???Neut % - 47.9 %???Lymph % - 33.2 %???Chey[place] % - 12.6 %???Eos % - 5.1 %???Baso % - 0.6 %???Imm Gran- 0.6 %???Abs. Imm Gran - 0.0 k/mm3 Comprehensive Metabolic Panel (02/21/2023) ???Sodium - 134 mmol/L???Potassium - 3.9 mmol/L???Chloride - 98 mmol/L???Bicarbonate Level - 27 mmol/L???Anion Gap - 9???Glucose Level - 111 mg/dL???BUN - 12 mg/dL???Creatinine-Blood - 0.8 mg/dL???Estimated GFR Creatinine - 115 ML/MIN/1.73 M2???Calcium - 8.5 mg/dL???Protein, Total - 6.4 Gm/dL???Albu min - 3.6 Gm/dL???AG Ratio - 1.3???Alkaline Phosphatase - 109 units/L???AST (SGOT) - 16 units/L???ALT (SGPT) - 22 units/L???Bilirubin, Total - 0.2 mg/dL Creatinine (03/11/2023) ???Creatinine-Blood - 1.0 mg/dL???Estimated GFR Creatinine - 98 ML/MIN/1.73 M2 CRP (02/21/2023) ???C-Reactive Protein - 0.9 mg/dL D Dimer (03/13/2023) ???D-Dimer - 3.63 mg/L FEU ELECTROLYTES (03/08/2023) ???Sodium - 139 mmol/L???Potassium - 4.2 mmol/L???Chloride - 100 mmol/L???Bicarbonate Level - 30 mmol/L???Anion Gap - 9 ESR (02/21/2023) ???Sed Rate - 21 mm/hr FERRITIN (02/25/2023) ???Ferritin Level - 43 ng/mL FOLIC ACID (02/25/2023) ???Folic Acid Level - 17.6 ng/mL Glucose Level (03/03/2023) ???Glucose Level - 80 mg/dL Hgb A1C (Monitoring) (03/10/2023) ???Hemoglobin A1C (Monitoring) - 5.3 % High??Sensitivity??Troponin T (02/21/2023) ???High Sensitivity Troponin (HSTnT) - 13 ng/L HOLD GEL TUBE (03/04/2023) ???Hold Gel Top - SPECIMEN DISCARDED AFTER 1 WEEK HOLD FERNANDO TUBE (02/22/2023) ???Hold Fernando Top - SPECIMEN DISCARDED AFTER 1 WEEK HOLD GREEN TUBE (02/22/2023) ???Hold Green Top - SPECIMEN DISCARDED AFTER 1 WEEK HOLD LAVENDER TUBE (03/13/2023) ???Hold Lavender Top - SPECIMEN DISCARDED AFTER 24 HOURS. INR (02/22/2023) ???INR - 1.0???Protime (PT) - 10.2 seconds IRON & TIBC (02/25/2023) ???Iron Level - 20 mcg/dL???Iron Binding Capacity, Unsaturated - 388 mcg/dL???Iron Binding Capacity, Estimated Total - 408 mcg/dL???% Iron Saturation - 5 % Lytes (03/13/2023) ???Sodium - 135 mmol/L???Potassium - 3.2 mmol/L???Chloride - 90 mmol/L???Bicarbonate Level - 35 mmol/L???Anion Gap - 10 Magnesium Level (03/10/2023) ???Magnesium - 2.0 mg/dL PROBNP (02/21/2023) ???Nt-Probnp - 44 pg/mL PTT (02/22/2023) ???APTT - 33.7 seconds TSH (03/10/2023) ???TSH - 8.41 uIU/mL Valproic Acid Level (03/10/2023) ???Valproic Level - 47.7 mg/L Vancomycin Random (02/23/2023) ???Vancomycin Level, Random - 8.2 mg/L Vancomycin Trough (03/08/2023) ???Vancomycin Level, Trough - 14.2 mg/L VITAMIN B12 (02/25/2023) ???Vitamin B12 Level - 755 pg/mL Allergies (NKA means No Known Allergies) OLANZapine [...] Educational Leaflet Providered with your Discharge Instructions. Bacteremia, Suspected (Adult)?? Valuables and Belongings I fully understand and agree that [facility] accepts no responsibility for all my personal [...] Review of Valuable and Belonging List: With patient, With witness Date for Pt to Sign Valuables/Belongings: 02/23/23 07:41:00 ?? Other Discharge Information ? Pulmonary Rehab [...] are strongly encouraged to quit. Please call [facility] at [phone] or [phone] ([phone]) or log in to [email or web address] for referrals to smoking cessation programs. ?? 149 Suicide & Crisis Lifeline is available 05/10 if you or someone you know needs to find a reason to keep living. By calling 847 you'll be connected to a skilled, trained counselor at a crisis center in your area. INPATIENT DISCHARGE INSTRUCTIONS SIGNATURE AUDRA VAHID TO Location:[facility] Registration Date and Time:02/22/2023 10:18 EST Primary Care Physician: Not on Staff, PCP Attending Physician: Nadya Carvajal MD, VAHID CAVANAUGH, have received the above patient education materials/instructions and have verbalized understanding. If ambulance or transport services are being used I further acknowledge being givena choice of service. ?? If you need to contact me, please call me at this number: . 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 [id number] Bacteremia, Suspected (Adult) Bacteremia is a bacterial infection that has spread to the bloodstream. This is serious because it can cause a lot of harm to the body. It can spread to other organs, including the bones, joints, kidneys, brain, and lungs. Bacteremia that spreads and causes significant inflammation in the body is called sepsis. You will have lab tests and imaging tests. The lab tests will include blood cultures to check for bacteremia. Blood cultures will find out the type of bacteria that you have. You will likely be started on antibiotics even before the results of the blood cultures are known. Causes Bacteremia often starts with an infection in one area, but it then spreads to the blood. Almost anytype of infection can cause bacteremia. This includes: ??? Urinary tract infection ??? Skin infection ??? Gastrointestinal problem ??? Infection after surgery ??? Lung infection (pneumonia) ??? Infection of a medical center director placed in a vein or the bladder ?? Symptoms At first, symptoms may seem like any local infection or illness. But then they get worse. Symptoms can include: ??? Fever and chills ??? Loss of appetite ??? Upset stomach (nausea) or vomiting ??? Trouble breathing or fast breathing ??? Fast heart rate ??? Feeling lightheaded or faint ??? Skin rashes or blotches ??? Confusion, severe sleepiness, or loss of consciousness ?? Home care People with bacteremia are most often treated in the hospital. After the most severe part of the illness is better, you may be sent home to complete your treatment. When caring for yourself at home: ??? Rest at home for the first 2 to 3 days. When resuming activity, don't let yourself become too tired. ??? You can take acetaminophen or ibuprofen for pain, unlessyou were given a different pain medicine to use. Talk with your healthcare provider before using these medicines if you have chronic liver or kidney disease. Talk with your provider if you have had astomach ulcer or digestive bleeding. Also talk with your provider if you are taking medicine to prevent blood clots such as blood thinners. ??? If you were given antibiotics, take them until they areused up, or your provider tells you to stop. It's important to finish the antibiotics even though you feel better. This is to make sure the infection has cleared. ??? Your appetite may be poor, so a light diet is fine. Drink plenty of fluids (6 to 8 glasses of fluid per day). This includes water, soft drinks, sports drinks, juices, tea, or soup. ?? Follow-up care Follow up with your healthcare provider, or as advised. Once the results of the blood culture are known, your healthcare provider may change your antibiotic. You can call for the results. If you had X-rays, a CT scan, or an ultrasound, a healthcare provider will look at them. You will be told of any results that may affect your care. ?? Call 911 Call 911 if you have any of these: ??? Wheezing or trouble breathing ??? Trouble swallowing ??? Chest pain ??? Confusion or sudden change in behavior ??? Extreme drowsiness or trouble waking up ??? Fainting or loss of consciousness ??? Fast heart rate ??? Low blood pressure ??? Vomiting blood, or large amounts of blood in stool ??? Seizure ?? When to get medical care Call your healthcare provider if you have any of these: ??? Cough with lots of colored mucus, or blood in your mucus ??? Severe headache ??? Severe face, neck, throat, or ear pain ??? Belly pain ??? Weakness, dizziness, repeated vomiting, or diarrhea ??? Joint pain or a new rash ??? Burning feelingwhen peeing (urinating) ??? Fever of 100.4??F (38??C) or higher, or as advised by your provider ?? Last Reviewed Date: 2021 ?? 1420-3669 [employer]. All rights reserved. This information is not intended as a substitute for professional medical care. Always follow your healthcare professional's instructions. ?? * Aracelis Muller RN: PERFORM Event Display: Discharge/Transfer Note Hospital Authored Date: [id number] Discharge Planning Nursing Entered On: 02/25/2023 8:05 EST Performed On: 02/25/2023 8:04 EST by Aracelis Muller RN Discharge Planning Nursing Anticipated discharge : Home Aracelis Muller RN - 02/25/2023 8:04 EST Indicator(s) for VNA/Home Care Services Able to safely function at home Able to safely ambulate at home : Yes Able to safely function at home : Yes Able to obtain meds: fill prescriptions : Yes Understands home medications : Yes Has food available at home : Yes Able to prepare/obtain meals : Yes Able to arrange transportation home : Yes Able to gain entry into home : Yes Exhibits impaired orientation : No Exhibits impaired comprehension : No Exhibits impaired judgement : No Caregiver willing to support patient : Yes Caregiver available to support patient : Yes Caregiver capable to support patient : Yes Renzo VALENTINE Aracelis 02/25/2023 8:04 EST New/changed/complex medication regime Recent change in mental health status : No Change in functional status : No New/changed/complex medication regime : Yes New Diagnosis : No Recent change in diet : No Catheter and/or Drain present : No Wound care / Colostomy care needed : No New injections : No IV therapy/TPN : Yes Impaired speech, swallow, communication : No Social problems or barriers : No Overwhelmed or noncompliant caregiver : No New DME Needed for Home : No Oxygen need at home or to transport home : No Renzo VALENTINE [facility] 02/25/2023 8:04 EST * Event Display: Provider Clarification Note Please click on pdf link to open report Consult note * Veda Cast MD: PERFORM, SIGN, VERIFY Event Display: Consultation Note Authored Date: [id number] Patient: VAHID TO Age: 42 years Sex: Male : 1980 Associated Diagnoses: None Author: Veda Cast MD INFECTIOUS DISEASES CONSULTATION NOTE Date: _ Requesting Attending/Provider: _Hospitalist Reason for Consult: _shortness of breath,cough,left leg swelling Source of Information: [facility], patient History of Present Illness ([id number]: HPI ???4): The patient is a _42 year-old _ with a past medical history of _schizoaffective disorder who left [place] after transfer from [facility] to [facility] with shortness of breath He had MRSA bacteremia 02/05,no additional Echo here unremarkable Past Medical and Surgical History: _ MRSA bactermia hospitalization last month Schizoaffective disorder Recent Antimicrobials: -_ Medications: Reviewed Antimicrobial Allergies: No known antimicrobial allergies. Family History: Noncontributory to this current admission. Social History: _. Denies history of tobacco, heavy alcohol, and illicit drug use. Review of Systems (17162: 2-9 ROS; 14764/57452: 10 ROS): 10-point review of systems fully reviewed and negative aside from what is listed above in the HPI. Medication List MED LIST (Selected) Inpatient Medications Ordered ALPRAZolam 0.5 mg oral tablet: 0.5 mg, Tablet, By Mouth, Every 8 hours, PRN for Anxiety, JAZLYN, 02/22/23 13:47:00 EST Ammonium Lactate 12% Topical: 1 application, Cream, Topically, Apply to Other : legs, 2 times a day, Routine, 02/22/23 21:38:00 EST BuPROpion XL Tablet: 300 mg, XL Tablet, By Mouth, Daily, Routine, 02/22/23 9:00:00 EST Depakote Tablet: 500 mg, Tablet, By Mouth, 3 times a day, Routine, 02/22/23 9:00:00 EST Enoxaparin Inj: 40 mg, Injection, Subcutaneous Injection, Daily, Routine, 02/22/23 9:00:00 EST Lasix Inj: 40 mg, Injection, IV Push Slowly, 2 times a day, Routine, 02/22/23 9:00:00 EST Nicotine Gum: 2 mg, Gum, Chew, Every hour, PRN for Other, Nicotine Cravings, Routine, 02/22/23 0:08:00 EST Nicotine Lozenge: 2 mg, Lozenge, By Mouth, Every hour, PRN for Other, Nicotine Withdrawal Symptoms (not to exceed 20 lozenges per day), Routine, 02/22/23 0:08:00 EST Percocet-5/325 325 mg-5 mg oral tablet: 2 tablet, Tablet, By Mouth, Every 5 hours, PRN for Pain , Severe, JAZLYN, 02/22/23 8:25:00 EST Senna 8.6 mg oral tablet: 1 tablet, Tablet, By Mouth, Daily at bedtime, Routine, 02/22/23 21:00:00 EST Suboxone 8 mg-2 mg Sublingual Film: 1 film, Film, Sublingual, Daily, Routine, 02/22/23 9:00:00 EST Vancomycin IVPB: 1,500 mg, IVPB, Injection, Every 12 hours for 7 days, Infuse over 60 to 90 minutes, Indicated for: Bacteremia, Routine, 02/22/23 11:00:00 EST, Stop date 03/01/23 10:59:00 EST busPIRone 10 mg oral tablet: 30 mg, Tablet, By Mouth, 2 times a day, Routine, 02/22/23 9:00:00 EST docusate sodium 100 mg oral capsule: 100 mg, Capsule, By Mouth, 2 times a day, Routine, 02/22/23 2:01:00 EST hydrOXYzine pamoate 25 mg oral capsule: 50 mg, Capsule, By Mouth, 3 times a day, PRN for Anxiety, Routine, 02/22/23 2:01:00 EST levothyroxine 0.025 mg oral tablet: 50 mcg, Tablet, By Mouth, Daily, Routine, 02/22/23 7:00:00 EST montelukast 10 mg oral tablet: 10 mg, Tablet, By Mouth, Daily, Routine, 02/22/23 9:00:00 EST pantoprazole 20 mg oral delayed release tablet: 20 mg, EC Tablet, By Mouth, Daily, Indicated for: Continuation from Home, Routine, 02/22/23 9:00:00 EST prazosin 5 mg oral capsule: 5 mg, Capsule, By Mouth, 2 times a day, Routine, 02/22/23 9:00:00 EST pregabalin 150 mg oral capsule: 150 mg, Capsule, By Mouth, 2 times a day, Routine, 02/22/23 9:00:00EST tiZANidine 4 mg oral tablet: 4 mg, Tablet, By Mouth, 2 times a day, PRN for Spasm, Routine, 02/22/23 16:09:00 EST Canceled ARIPiprazole 15 mg oral tablet: 30 mg, Tablet, By Mouth, Daily, Routine, 02/22/23 9:00:00 EST escitalopram 10 mg oral tablet: 20 mg, Tablet, By Mouth, Daily, Routine, 02/22/23 9:00:00 EST Completed Ativan 0.5 mg oral tablet: 0.5 mg, Tablet, By Mouth, Once, STAT, 02/21/23 20:24:00 EST, Stop date 02/21/23 20:24:00 EST MorPHINE Inj: 4 mg, Injection, IV Push Slowly, Once, STAT, 02/21/23 22:36:00 EST, Stop date 02/21/23 22:36:00 EST Soma 350 mg oral tablet: 350 mg, Tablet, By Mouth, Once, PRN for Spasm, MSK spasms, Routine, 02/24/23 22:59:00 EST Vancomycin IVPB: 1.5 Gm, IVPB, Injection, Once, Indicated for: Cellulitis Purulent, STAT, 02/21/23 21:42:00 EST, Stop date 02/21/23 21:42:00 EST Xanax 0.5 mg oral tablet: 1 mg, Tablet, By Mouth, Once, PRN for Anxiety, Routine, 02/22/23 0:03:00 EST Discontinued ALPRAZolam 0.5 mg oral tablet: 0.5 mg, Tablet, By Mouth, 2 times a day, PRN for Anxiety, Routine, 02/22/23 9:17:00 EST Vancomycin IVPB: 1 Gm, IVPB, Injection, Once, Indicated for: Cellulitis Purulent, STAT, 02/21/23 21:39:00 EST, Stop date 02/21/23 21:39:00 EST oxyCODONE 5 mg oral tablet: 10 mg, Tablet, By Mouth, Every 6 hours, PRN for Pain , Severe, Routine,02/22/23 0:03:00 EST Prescriptions Prescribed pregabalin 150 mg oral capsule: 1 capsule = 150 mg, By Mouth, 2 times a day, # 180 capsule, 0 Refills, Maintenance, 01/27/23 10:33:00 EST, Capsule, [facility] #[id number], Partial fill upon patient request if the prescription is for a schedule II opioid drug., 183, cm, 01/27/23... tiZANidine 4 mg oral tablet: See Instructions, PRN, TAKE 1 TABLET BY MOUTH THREE TIMES DAILY FOR 5 DAYS, # 15 tablet, Refills 0, Tot. Refills 0, Maintenance, Spasm, 12/11/22 15:36:00 EDT, Instructions Replace Required Details, Route to Pharmacy Electronically, [facility]... Completed Bactrim DS 800 mg-160 mg oral tablet: 1 tablet, By Mouth, 2 times a day, for 14 days, # 28 tablet, 0 Refills, Acute 02/23/23 15:23:00 EST, 02/09/23 15:23:00 EST, Tablet, [facility], Partial fill upon patient request if the prescription is for a schedule II opioid drug., 1 ta... Discontinued diclofenac sodium 75 mg oral delayed release tablet: 1 tablet = 75 mg, By Mouth, 2 times a day, PRNPain , Moderate, # 60 tablet, 1 Refills, Maintenance, 01/04/23 15:55:00 EDT, EC Tablet, [facility] #[id number], Partial fill upon patient request if the prescription is for a schedule II opioid drug.... docusate sodium 100 mg oral capsule: 100 mg, 1, capsule, By Mouth, 2 times a day, TAKE ONE CAPSULE BY MOUTH TWO TIMES DAILY, # 60 capsule, Refills 0, Tot. Refills 0, Maintenance, 08/05/22 8:29:00 EDT, Route to Pharmacy Electronically, [facility], Partial fill upon patient r... escitalopram 20 mg oral tablet: 1 tablet = 20 mg, By Mouth, Daily, # 14 tablet, 0 Refills, Maintenance, 09/29/22 15:28:00 EDT, Tablet, [id number], Partial fill upon patient request if the prescription is for a schedule II opioid drug., 182.88, cm, 09/29/22 14:33:00... Documented Medications Documented Senna 8.6 mg oral tablet: 8.6 mg, 1, tablet, By Mouth, Daily at bedtime, Refills 0, Maintenance, 01/27/23 10:26:00 EST, Partial fill upon patient request if the prescription is for a schedule II opioid drug. acetaminophen-codeine 300 mg-30 mg oral tablet: 1, tablet, TAKE 1 TABLET BY MOUTH EVERY 6 HOURS NEEDED FOR PAIN, DO NOT DRIVE OR DRINK ALCOHOL buPROPion 300 mg/24 hours (XL) oral tablet, extended release: 1 tablet = 300 mg, By Mouth, Daily, #30 tablet, 0 Refills, Maintenance, 01/27/23 10:22:00 EST, ER Tablet, Partial fill upon patient request if the prescription is for a schedule II opioid drug. busPIRone 30 mg oral tablet: 1 tablet = 30 mg, By Mouth, 2 times a day, # 60 tablet, 0 Refills, Maintenance, 01/27/23 10:23:00 EST, Tablet, Partial fill upon patient request if the prescription is for a schedule II opioid drug. diclofenac sodium 75 mg oral delayed release tablet: 1 tablet = 75 mg, By Mouth, 2 times a day, 0 Refills, Maintenance, 01/27/23 10:25:00 EST, Partial fill upon patient request if the prescription isfor a schedule II opioid drug. divalproex sodium 500 mg oral enteric coated tablet: 1 tablet = 500 mg, By Mouth, 3 times a day, TAKE 1 TABLET BY MOUTH AT BEDTIME docusate sodium 100 mg oral capsule: 100 mg, 1, capsule, By Mouth, 2 times a day, Refills 0, Maintenance, 01/27/23 10:26:00 EST, Partial fill upon patient request if the prescription is for a schedule II opioid drug. hydrOXYzine pamoate 50 mg oral capsule: 1 capsule = 50 mg, By Mouth, 3 times a day, PRN Anxiety, # 90 capsule, 0 Refills, Maintenance, 01/27/23 10:23:00 EST, Capsule, Partial fill upon patient request if the prescription is for a schedule II opioid drug. montelukast 10 mg oral tablet: 10 mg, 1, tablet, By Mouth, Daily, Refills 0, Maintenance, 01/27/23 10:25:00 EST, Partial fill upon patient request if the prescription is for a schedule II opioid drug. pantoprazole 20 mg oral delayed release tablet: 1 tablet = 20 mg, By Mouth, Daily, 0 Refills, Maintenance, 01/27/23 10:25:00 EST prazosin 5 mg oral capsule: 5 mg, 1, capsule, By Mouth, 2 times a day, Refills 0, Maintenance, 01/27/23 10:22:00 EST, Partial fill upon patient request if the prescription is for a schedule II opioiddrug. Discontinued ARIPiprazole 30 mg oral tablet: 1 tablet = 30 mg, By Mouth, Daily, 0 Refills, Maintenance, 01/27/2310:26:00 EST, Partial fill upon patient request if the prescription is for a schedule II opioid drug. divalproex sodium 500 mg oral enteric coated tablet: 1 tablet = 500 mg, By Mouth, 3 times a day, 0 Refills, Maintenance, 01/27/23 10:24:00 EST, Partial fill upon patient request if the prescription is for a schedule II opioid drug. Review of Systems Review of Systems Constitutional: no chills. Respiratory: denies nonproductive cough. Cardiovascular: peripheral edema. Gastrointestinal: no abdominal pain. Other systems: Neuro neg . Physical Examination (75292: 2-7 organ systems or comprehensive single system exam; 95874/96012: 8 organ systems or comprehensive single system exam) .VitalsTemperature 97.3 (19:46) Systolic Blood Pressure 109 (19:46) Diastolic Blood Pressure 72 (19:46) Pulse 76 (19:46) SpO2 98 (19:46) Respiratory Rate 18 (23:24) GENERAL: In no acute distress HEENT: Anicteric, no subconjunctival petechiae, moist oral mucosa without lesions or thrush NECK: Neck supple, without cervical lymphadenopathy CARDIOVASCULAR: Regular rate and rhythm. Not able to appreciate any murmurs, rubs, or gallops. No peripheral edema. RESPIRATORY: Lungs clear to auscultation GASTROINTESTINAL: Non-distended, normoactive bowel sounds, non-tender GENITOURINARY: No CVAT MUSCULOSKELETAL: Without joint effusions, no tenderness over spine, edema and redness LLE,scratchedarea SKIN: No diffuse rash present, no stigmata of infective endocarditis PSYCHIATRIC: No signs of hallucinations or delusions NEUROLOGICAL: A&Ox3, grossly intact LINES: Results Review General results Microbiology: Impression and Plan Impression: _ Chronic lower extremity edema and redness LLE Signed out AMA with partial course antibiotics for MRSA bacteremia,cleared and remains clear. TTE unremarkable Recommendations: Continue Vancomycin. FInish antibiotics February. There is no good oral alternative -_ Thank you for the consultation. Infectious Diseases will continue to follow the patient with you * Event Display: Consultation Note Authored Date: [id number] CONSULTATION DATE: 02/23/2023 INPATIENT CONSULTATION REQUESTING PROVIDER: Dr. Faraz Mckinley. 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 REASON FOR CONSULTATION: Rule out septic arthritis, left knee. HISTORY AND CONSULTATION IS REQUESTED BY: Dr. Mckinley. HISTORY OF PRESENT ILLNESS: The patient is a 42-year-old white male with multiple medical, substance abuse, and psychiatric disorders. He was admitted to the hospital on 02/22/2023 with a concern of active infection and possible septic left knee. The patient has provided some history and I also obtained additional history from his medical record. He was recently hospitalized with MRSA bacteremia,but left against medical advice on 02/09/2023. He was apparently admitted here at [facility] on 02/05/2023 because of respiratory failure and pneumonia. He had been transferred to [facility]. An echocardiogram was ordered, but had not been obtained by the time the patient left against medical advice on 02/09/2023. He was discharged on Bactrim antibiotic. He returned to the [facility] on02/22/2023, complaining of worsening pain and swelling in his left leg, that had been increasing over the past 3 days. He also was complaining of shortness of breath and chest pain. REVIEW OF SYSTEMS: The patient has a history of bilateral knee pain and swelling. He complains of chronic chest pain. He reports recurrent umbilical hernia, which gives him minimal problems currently. He has no PCP. PAST MEDICAL HISTORY: This includes alcohol abuse, bilateral lower extremity edema, bipolar disorder, COPD, reflux without esophagitis, anxiety, mi, hypothyroidism, opioid dependence, on Suboxone,chronic anemia, polysubstance dependence, schizoaffective disorder, and severe obesity. ALLERGIES: He has allergies to OLANZAPINE, REMERON, SERTRALINE, TRAZODONE, ZOLOFT and ZYPREXA. PAST SURGICAL HISTORY: Include an upper GI endoscopy on 12/20/2018, left knee joint surgery with Dr. Lang several years ago, ankle joint operation, hernia repairs and appendectomy. SOCIAL HISTORY: The patient is disabled and unemployed. He lives with his mother. He is originally from [place], [place]. He has spent time in mental institutions and he has also been incarcerated in the past. He only uses alcohol rarely. He does use marijuana in the past. He does smoke ten cigarettes or more per day. FAMILY HISTORY: Includes anxiety, asthma, COPD, and alcoholism. MEDICATIONS: His admission medications are listed in the record and are personally reviewed by me. PHYSICAL EXAMINATION: GENERAL: The patient was a fairly restless adult man speaking rapidly and moving about in the room.He was in no acute distress. He easily bear weight, ambulate, and flex and extend his left knee. VITAL SIGNS: Included a temperature of 97.9. No fevers are recorded during this admission. Pulse of71, respiratory rate 18, blood pressure 113/69. EXTREMITIES: The exam of the left knee shows mild valgus alignment. Healed arthroscopy portals. Small effusion. No erythema. No increased skin temperature. Left knee range of motion was intact. Both lower extremities showed fairly impressive venous stasis discoloration and multiple eschars. His distal pulses were 1+ palpable. His sensation was subjectively decreased. IMAGING: Radiographs of both knees were available in [facility]. I reviewed multiple sets of x-rays of both knees. He has osteoarthritis of both knees including the lateral compartment and patellofemoral joint on the left and the medial compartment on the right. LABORATORY DATA: Also, reviewed and show anemia with a hemoglobin of 9.0, low white blood count of 3.0. Normal platelet count of 238,000. INR was normal at 1.0, but the PTT was elevated at 33.7. He had an elevated D-dimer of 2.65. He had a sedimentation rate of 21. C-reactive protein was 0.9 on admission. IMPRESSION: The patient has osteoarthritis of both knees. Prior left knee arthroscopy. There is no evidence of septic arthritis or active gout infection at this time. I explained to patient and I also spoke to the patient's stepfather by telephone, informing him that there are no good treatment options at this point because of his young age and his obesity. He certainly needs to prioritize evaluation and treatment of any infection that he has at this time and then may need to be evaluated by vascular surgery. He tells me that he was seen by vascular doctor at [facility] in the past and that vascular surgeon wants to do a procedure on him. Certainly that needs to be confirmed and reevaluated. No other treatment options at this time, but it could be a candidate for injections in the future. Weight loss and physical therapy for range of motion and strengthening is recommended. Follow up hereas needed. Dictated by: Edgard Knutson M.D. Signing Clinician: Edgard Knutson M.D. Dictated: 02/23/2023 01:20:02 Transcribed: 07:50:39 AM Transcribed by: SUMEET DocID: [id number] PRELIMINARY REPORT UNLESS MANUALLY/ELECTRONICALLY SIGNED cc: Faraz Mckinley D.O. [address], [address] Patient Care team information Care Team Personnel Name: Konrad Gallegos RN Position: S ED RN W/OE and Tasks Member Role: Primary Care Nurse Name: Anna Weaver RN Position: [facility] RN Member Role: Primary Care Nurse Name: Niki Bright RN Position: [facility] RN Member Role: Primary Care Nurse Name: Fang Che Position: [facility] RN Member Role: Primary Care Nurse Name: Trisha Alamo RN Position: [facility] RN Supv Member Role: Primary Care Nurse Name: Rita Son NP Position: [facility] Associate Professional Member Role: Primary Care Nurse Address: Address: [address] [place] [address] [address]- [place] Name: Slo Chanel RN Position: [facility] ED RN W/OE and Tasks Member Role: Primary Care Nurse Name: Helene Pérez RN Position: [facility] RN Member Role: Primary Care Nurse Name: Brenda Cuba RN Position: [facility] Wound Member Role: Primary Care Nurse Name: Kell Alonso RN Position: [facility] RN Member Role: Primary Care Nurse Name: Belen Tesfaye RN Position: [facility] RN Member Role: Primary Care Nurse Name: Richa Clay LPN Position: [facility] RN Member Role: Primary Care Nurse Name: Aury Pandya RN Position: [facility] RN Member Role: Primary Care Nurse Name: Prisca Meng RN Position: [facility] RN Member Role: Primary Care Nurse Name: Екатерина Chacko RN Position: [facility] RN Member Role: Primary Care Nurse Name: Sadaf Tubbs RN Position: [facility] RN Member Role: Primary Care Nurse Name: Arjun Malagon RN Position: [facility] RN Member Role: Primary Care Nurse Name: Not on Staff, PCP Position: [facility] Physician (General Medicine) Member Role: PCP Name: Milo Leonard RN Position: [facility] RN Member Role: Primary Care Nurse Name: Anna Oconnor RN Position: [facility] [employer] Treating Unit Operator Member Role: Primary Care Nurse Name: Dalila Cedra RN Position: [facility] RN Member Role: Primary Care Nurse Name: Shamar Lynn RN Position: [facility] RN Member Role: Primary Care Nurse Name: Kip Gonzalez RN Position: [facility] RN Member Role: Primary Care Nurse Address: Address: [address] [place] [address]- [place] Name: April Acuña RN Position: [facility] RN Member Role: Primary Care Nurse Name: Li Esquivel RN Position: [facility] Hospital Natural Gas Treating Unit Operator Member Role: Primary Care Nurse Name: Cindy HENDERSON, Tunde Position: [facility] Physician - Behavioral Health Member Role: [employer] Consulting Physician Address: Address: [address] [place] [id number] Name: *Betty Pizano Attending Position: [facility] ED Medicine MD Name: Nelson Raymond Position: [facility] ED TA [facility] Name: Coltete Mckenzie Position: [facility] ED OA Charge Member Role: ED Associate Name: Jacki Angulo RN Position: [facility] ED RN W/OE and Tasks Member Role: Patient Care Provider Care Team Related Persons Name: FORREST TO Address: [place] [address] Name: MÓNICA CREWS
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
--- OUTSIDE RECORDS SUMMARY | 2023-05-04 10:48 | XMS_ITS | Continuity of Care Document ---
Author Name Unknown Organization [facility] Address [address] [place] [address]- Care Team Providers Care Cota Name Role Phone Marvin Mac MD Primary Care Physician Encounter [facility] Date(s): 01/29/23 - 01/29/[address] [address]- Discharge Disposition: A-D/C Walkout Attending Physician: David Steinberg MD Admitting Physician: David Steinberg MD Referring Physician: Not on Staff, Referring MD Allergies, Adverse Reactions, Alerts Substance Reaction Severity Status Zoloft Active Remeron Active traZODone Active ZyPREXA Active Immunizations Given and Recorded Vaccine Date Status Refusal Reason tetanus/diphtheria/pertussis, acel(Tdap) 04/09/22 Recorded tetanus/diphtheria/pertussis, acel(Tdap) 05/18/18 Recorded tetanus/diphtheria/pertussis, acel(Tdap) 12/19/16 Recorded [id number] 12y+ bivalent booster vax 02/11/22 Recorded SARS-CoV-2 (COVID-19) mRNA-1273 vaccine 05/01/21 R ecorded influenza virus vaccine, inactivated 01/11/21 Sandro rded influenza virus vaccine, inactivated 12/27/17 Sandro rded influenza virus vaccine, inactivated 04/28/16 Sandro rded SARS-CoV-2 (COVID-19) mRNA BNT-162b2 vac 09/19/20 Recorded SARS-CoV-2 (COVID-19) mRNA BNT-162b2 vac 08/29/20 Recorded tetanus-diphtheria toxoids (Td) 12/14/18 Recorded Medications acetaminophen-codeine 300 mg-30 mg oral tablet 1, tablet, TAKE 1 TABLET BY MOUTH EVERY 6 HOURS NEEDED FOR PAIN, DO NOT DRIVE OR DRINK ALCOHOL Start Date: 12/24/22 Status: Ordered ARIPiprazole 15 mg oral tablet 30 mg, By Mouth, Daily, # 14 tablet, Refills 0, Tot. Refills 0, Maintenance, 09/29/22 15:25:00 EDT,Route to Pharmacy Electronically, [facility] #[id number], Partial fill upon patient request ifthe prescription is for a schedule II opioid drug.,... Start Date: 09/29/22 Stop Date: 10/13/22 Status: Ordered ARIPiprazole 30 mg oral tablet 1 tablet = 30 mg, By Mouth, Daily, 0 Refills, Maintenance, 01/27/23 10:26:00 EST, Partial fill uponpatient request if the prescription is for a schedule II opioid drug. Start Date: 01/27/23 Status: Ordered buprenorphine-naloxone 8 mg-2 mg sublingual film 2 film, Sublingual, Daily, # 14 film, 1 Refills, Maintenance, 09/29/22 15:26:00 EDT, Film, [facility] #[id number], Partial fill upon patient request if the prescription is for a schedule II opioid drug., 2 film Sublingual Daily,x7 days, 182.88, c... Start Date: 09/29/22 Stop Date: 10/13/22 Status: Ordered buPROPion 300 mg/24 hours (XL) oral tablet, extended release 1 tablet = 300 mg, By Mouth, Daily, # 30 tablet, 0 Refills, Maintenance, 01/27/23 10:22:00 EST, ER Tablet, Partial fill upon patient request if the prescription is for a schedule II opioid drug. Start Date: 01/27/23 Status: Ordered busPIRone 30 mg oral tablet 1 tablet = 30 mg, By Mouth, 2 times a day, # 60 tablet, 0 Refills, Maintenance, 01/27/23 10:23:00 EST, Tablet, Partial fill upon patient request if the prescription is for a schedule II opioid drug. Start Date: 01/27/23 Status: Ordered chlorproMAZINE 50 mg oral tablet See Instructions, TAKE ONE TABLET (50MG) BY MOUTH DAILY AT 9AM, 3PM AND TWO TABLETS (100MG) BY MOUTH DAILY AT BEDTIME, # 28 tablet, 1 Refills, Maintenance, 09/29/22 15:25:00 EDT, Tablet, [facility] #[id number], Partial fill upon patient request i... Start Date: 09/29/22 Status: Ordered cloNIDine 0.1 mg oral tablet 0.2 mg, By Mouth, 2 times a day, # 21 tablet, Refills 1, Tot. Refills 1, Maintenance, 09/29/22 15:26:00 EDT, Route to Pharmacy Electronically, [facility] #[id number], Partial fill upon patient request if the prescription is for a schedule II opio... Start Date: 09/29/22 Stop Date: 10/13/22 Status: Ordered diclofenac sodium 75 mg oral delayed release tablet 1 tablet = 75 mg, By Mouth, 2 times a day, PRN Pain , Moderate, # 60 tablet, 1 Refills, Maintenance, 01/04/23 15:55:00 EDT, EC Tablet, [facility] #[id number], Partial fill upon patient request if the prescription is for a schedule II opioid drug.... Start Date: 01/04/23 Status: Ordered diclofenac sodium 75 mg oral delayed release tablet 1 tablet = 75 mg, By Mouth, 2 times a day, 0 Refills, Maintenance, 01/27/23 10:25:00 EST, Partial fill upon patient request if the prescription is for a schedule II opioid drug. Start Date: 01/27/23 Status: Ordered divalproex sodium 500 mg oral enteric coated tablet 1 tablet = 500 mg, By Mouth, 3 times a day, 0 Refills, Maintenance, 01/27/23 10:24:00 EST, Partial fill upon patient request if the prescription is for a schedule II opioid drug. Start Date: 01/27/23 Status: Ordered docusate sodium 100 mg oral capsule 100 mg, 1, capsule, By Mouth, 2 times a day, TAKE ONE CAPSULE BY MOUTH TWO TIMES DAILY, # 60 capsule, Refills 0, Tot. Refills 0, Maintenance, 08/05/22 8:29:00 EDT, Route to Pharmacy Electronically, [facility], Partial fill upon patient r... Start Date: 08/05/22 Status: Ordered docusate sodium 100 mg oral capsule 100 mg, 1, capsule, By Mouth, 2 times a day, Refills 0, Maintenance, 01/27/23 10:26:00 EST, Partialfill upon patient request if the prescription is for a schedule II opioid drug. Start Date: 01/27/23 Status: Ordered escitalopram 20 mg oral tablet 1 tablet = 20 mg, By Mouth, Daily, # 14 tablet, 0 Refills, Maintenance, 09/29/22 15:28:00 EDT, Tablet, [facility] #[id number], Partial fill upon patient request if the prescription is for a schedule II opioid drug., 182.88, cm, 09/29/22 14:33:00... Start Date: 09/29/22 Stop Date: 10/13/22 Status: Ordered furosemide 80 mg oral tablet 80 mg, 1, tablet, By Mouth, Daily, TAKE ONE TABLET BY MOUTH DAILY, # 14 tablet, Refills 1, Tot. Refills 1, Maintenance, 08/05/22 8:30:00 EDT, Route to Pharmacy Electronically, [facility], Partial fill upon [...] a schedule II opioid drug. Start Date: 01/27/23 Status: Ordered levothyroxine 0.025 mg oral tablet 1 tablet = 25 mcg, By Mouth, Daily, # 90 tablet, 0 Refills, Maintenance, 01/28/23 8:18:00 EST, Tablet, [facility] #[id number], Partial fill upon patient request if the prescription is for a schedule II opioid drug., 183, cm, 01/27/23 10:18:00 EST... Start Date: 01/28/23 Status: Ordered levothyroxine 0.05 mg oral tablet 1 tablet = 50 mcg, By Mouth, Daily, TAKE ONE TABLET BY MOUTH DAILY, # 14 tablet, 1 Refills, Maintenance, 08/05/22 8:30:00 EDT, Tablet, [facility], Partial fill upon patient request if the prescription is for a schedule II opioid drug., 1... Start Date: 08/05/22 Stop Date: 09/02/22 Status: Ordered methocarbamol 500 mg oral tablet 1 tablet = 500 mg, By Mouth, 3 times a day, PRN muscle spasm, for 10 days, # 30 tablet, 0 Refills, Acute 02/06/23 10:35:00 EST, 01/27/23 10:35:00 EST, Tablet, [facility] #[id number], Partial fill upon patient request if the prescription is for a... Start Date: 01/27/23 Stop Date: 02/06/23 Status: Ordered montelukast 10 mg oral tablet 10 mg, 1, tablet, By Mouth, Daily, Refills 0, Maintenance, 01/27/23 10:25:00 EST, Partial fill uponpatient request if the prescription is for a schedule II opioid drug. Start Date: 01/27/23 Status: Ordered pantoprazole 20 mg oral delayed release tablet 1 tablet = 20 mg, By Mouth, Daily, 0 Refills, Maintenance, 01/27/23 10:25:00 EST Start Date: 01/27/23 Status: Ordered prazosin 5 mg oral capsule 5 mg, 1, capsule, By Mouth, 3 times a day, Refills 0, Maintenance, 01/27/23 10:22:00 EST, Partial fill upon patient request if the prescription is for a schedule II opioid drug. Start Date: 01/27/23 Status: Ordered pregabalin 150 mg oral capsule 1 capsule = 150 mg, By Mouth, 2 times a day, # 180 capsule, 0 Refills, Maintenance, 01/27/23 10:33:00 EST, Capsule, [facility] #[id number], Partial fill upon patient request if the prescription is for a schedule II opioid drug., 183, cm, 01/27/23... Start Date: 01/27/23 Status: Ordered Senna 8.6 mg oral tablet 8.6 mg, 1, tablet, By Mouth, Daily at bedtime, Refills 0, Maintenance, 01/27/23 10:26:00 EST, Partial fill upon patient request if the prescription is for a schedule II opioid drug. Start Date: 01/27/23 Status: Ordered tiZANidine 4 mg oral tablet See Instructions, PRN, TAKE 1 TABLET BY MOUTH THREE TIMES DAILY FOR 5 DAYS, # 15 tablet, Refills 0,Tot. Refills 0, Maintenance, Spasm, 12/11/22 15:36:00 EDT, Instructions Replace Required Details, Route to Pharmacy Electronically, [facility] Start Date: 12/11/22 Status: Ordered Problem List Condition Confirmation Course [...] suboxone- but denies any recent use. DW Steersman and will work to connect him with [...] & Plan: bp wnl-ap 126-regular Pt to [facility] via cab for further eval. 5Outside Source Comment: Last Assessment & Plan: Recent inpt psych hospitalization in [facility]. Denies any SI/HI at this time but very anxious about medications. DW pt no dose adjustments at this time and will need to connect with psych at [facility]- no current psych provider. Pt contracts for safety. Pt did come with rx avail- but sh ort on lorazepam. Will fill at this time but ensure has prescriber on d/c. met with pt todayand psych referral placed. Administration aware. Social History Social History Type Response Smoking [...] Code MRI Safety Implantable Status 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 [id number] Unknown [id number] 2 Unknown 03/11/21 Unknown Unknown Active 1 Hospital Progress note * Trinity Bradley RN: PERFORM, SIGN, VERIFY Event Display: Progress Note Hospital Authored Date: [id number] Patient: VAHID TO Age: 42 years Sex: Male : 1980 Associated Diagnoses: None Author: Trinity Bradley RN Discharge Information Pt brought in by EMS with complaints of chronic pain and stating that his PCP wouldnt fill his medications. Per Call in pt became agitated when his med refill was denied. Pt brought in on EMS stretcher. Pt states his only complaint was chronic pain and that he is here to get his medications refilled. No rooms were available at that time. Pt was told he would need to be triaged and wait in the waiting room. This made patient very angry. He began yelling and shouting at staff. Stating you peoplesuck Fuck you people, you never want to help Multiple attempts made by this RN and to calm pt down. Pt then wheeled to the waiting room where he became belligerent and we were unable to redirect him. Pt then became verbally abusive to other patients in triage and used foul language ans slurs towards another pt. Pt instructed that he could not stay if he was going to be verbally abusive toward staff or other patients. Dr Steinberg OK'd pt to leave without assessment given that he had no medical complaints. Pt escorted out by and Deon KAPOOR. Patient Care team information Care Team Personnel Name: Konrad Gallegos RN Position: [facility] ED RN W/OE and Tasks Member Role: Primary Care Nurse Name: Anna Weaver RN Position: [facility] RN Member Role: Primary Care Nurse Name: Niki Bright RN Position: [facility] RN Member Role: Primary Care Nurse Name: Fang Che Position: [facility] RN Member Role: Primary Care Nurse Name: Trisha Alamo RN Position: [facility] RN Supv Member Role: Primary Care Nurse Name: Rita Son NP Position: [facility] Associate Professional Member Role: Primary Care Nurse Address: Address: [address] [place] [phone]- [place] Name: Sol Chanel RN Position: [facility] RN Member Role: Primary Care Nurse Name: Helene Pérez RN Position: [facility] RN Member Role: Primary Care Nurse Name: Brenda Cuba RN Position: [facility] HBO Wound Member Role: Primary Care Nurse Name: Kell Alonso RN Position: [facility] RN Member Role: Primary Care Nurse Name: Richa Clay LPN Position: [facility] RN Member Role: Primary Care Nurse Name: Екатерина Chacko RN Position: [facility] RN Member Role: Primary Care Nurse Name: Marvin Mac MD Position: [facility] Physician - Primary Care Member Role: PCP Address: Address: [address] [place] [phone]- [place] Name: Anna Oconnor RN Position: [facility] Manager Integrity Member Role: Primary Care Nurse Name: Kip Gonzalez RN Position: [facility] RN Member Role: Primary Care Nurse Address: Address: [address] [place] [phone]- [place] Name: April Acuña RN Position: [facility] RN Member Role: Primary Care Nurse Name: Li Esquivel RN Position: [facility] Hospital Manager Integrity Member Role: Primary Care Nurse Name: Tunde White MD Position: [facility] Physician - Behavioral Health Member Role: Lifetime Consulting Physician Address: Address: [address] [place] [address]- Care Team Related Persons Name: FORREST TO Address: home [address] [place] [address] Name: MÓNICA CREWS
--- OUTSIDE RECORDS SUMMARY | 2023-05-04 10:48 | XMS_ITS | Continuity of Care Document ---
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 Name Role Phone Not on Staff, PCP Primary Care Physician Unavail able Encounter [facility] Date(s): 03/02/23 - 04/01/23 [facility] [address] [place] [address]- Allergies, Adverse Reactions, Alerts Substance Reaction Severity Status sertraline Fluoxetine Fluoxetine Active Zoloft Active Remeron Active traZODone Active OLANZapine Active ZyPREXA Active Immunizations Given and Recorded Vaccine Date Status Refusal Reason tetanus/diphtheria/pertussis, acel(Tdap) 04/09/22 Recorded tetanus/diphtheria/pertussis, acel(Tdap) 05/18/18 Recorded tetanus/diphtheria/pertussis, acel(Tdap) 12/19/16 Recorded [id number] 12y+ bivalent booster vax 02/11/22 Recorded SARS-CoV-2 [...] 0 Refills, Maintenance, 03/12/23 14:01:00 EST, Cream, [facility] #[id number], Apply to lower legs andfeet 2 times a day, avoiding open areas, 183, cm, 1... Start Date: 03/12/23 Status: Ordered bethanechol 25 mg oral tablet 25 mg, By Mouth, 4 times a day, # 120 tablet, Refills 0, Tot. Refills 0, Maintenance, 03/12/23 14:02:00 EST, Route to Pharmacy Electronically, [facility] #[id number], 183, cm, 03/12/23 5:13:00 EST, Height, 125.2, kg, 02/22/23 14:00:00 EST, Dry We... Start Date: 03/12/23 Status: Ordered buPROPion 300 mg/24 hours (XL) oral tablet, extended release 1 tablet = 300 mg, By Mouth, Daily, # 30 tablet, 0 Refills, Maintenance, 03/12/23 15:02:00 EST, XL Tablet, [facility] #[id number], 183, cm, 03/12/23 5:13:00 EST, Height, 125.2, kg, 02/22/23 14:00:00 EST, Dry Weight Start Date: 03/12/23 Status: Ordered busPIRone 30 mg oral tablet 1 tablet = 30 mg, By Mouth, 2 times a day, # 60 tablet, 0 Refills, Maintenance, 03/12/23 15:02:00 EST, Tablet, [facility] #[id number], 183, cm, 03/12/23 5:13:00 EST, Height, 125.2, [...] Refills, Maintenance, 03/12/23 13:59:00 EST, ER Tablet, [facility] #[id number], 183, cm, 03/12/23 5:13:00 EST, Height, 125.2, kg, 02/22/23 14:00:00 EST, Dry Weight Start Date: 03/12/23 Status: Ordered Depakote ER 500 mg oral tablet, extended release 3 tablet = 1,500 mg, By Mouth, Daily, total dose is 1750 QD, # 90 tablet, 0 Refills, Maintenance, 03/12/23 13:58:00 EST, ER Tablet, [facility] #[id number], 183, cm, 03/12/23 5:13:00 EST, Height,125.2, kg, [...] 03/26/23 9:50:00 EST, Route to Pharmacy Electronically, [facility] #[id number], Partial fill upon patient request if the prescription is for a schedule II opioi... Start Date: 03/26/23 Stop Date: 04/25/23 Status: Ordered levothyroxine 75 mcg (0.075 mg) oral tablet = 75 mcg, By Mouth, Daily, # 30 tablet, 0 Refills, Maintenance, 03/12/23 14:00:00 EST, Tablet, [facility] #[id number], 183, cm, 03/12/23 5:13:00 EST, Height, 125.2, [...] 14:40:00 EST, 04/01/23 14:40:00 EST, EC Tablet, [facility] #[id number], Partial fill upon patient request if the [...] Refills, Maintenance, 03/14/23 9:00:00 EST, ER Tablet, [facility] #[id number], 183, cm, 03/13/23 7:38:00 EST, Height, 125.2, kg, 02/22/23 14:00:00 EST, Dry Weight Start Date: 03/14/23 Status: Ordered prazosin 5 mg oral capsule 5 mg, 1, capsule, By Mouth, 2 times a day, # 60 capsule, Refills 0, Tot. Refills 0, Maintenance, 03/12/23 14:03:00 EST, Route to Pharmacy Electronically, [facility] #[id number], Partial fill upon patient request if the prescription is for a sched... Start Date: 03/12/23 Status: Ordered pregabalin 150 mg oral capsule 1 capsule = 150 mg, By Mouth, 2 times a day, # 180 capsule, 0 Refills, Maintenance, 01/27/23 10:33:00 EST, Capsule, [facility] #[id number], Partial fill upon patient request if the prescription is for a schedule II opioid drug., 183, cm, 01/27/23... Start Date: 01/27/23 Status: Ordered promethazine 25 mg oral tablet 0.5 each = 12.5 mg, By Mouth, Every 6 hours, PRN Nausea & Vomiting, # 20 tablet, 0 Refills, Maintenance, 03/12/23 19:26:00 EST, Tablet, [facility] #[id number], 183, cm, 03/12/23 5:13:00 EST,Height, 125.2, kg, 02/22/23 14:00:00 EST, Dry Weight Start Date: 03/12/23 Status: Ordered rivaroxaban 20 mg oral tablet = 20 mg, By Mouth, Daily at supper, # 30 tablet, 0 Refills, Maintenance, 04/01/23 15:05:00 EST, Tablet, [facility] #[id number], 183, cm, 03/12/23 5:13:00 EST, Height, 125.2, kg, 02/22/23 14:00:00 EST, Dry Weight Start Date: 04/01/23 Status: Ordered Senna 8.6 mg oral tablet 8.6 mg, 1, tablet, By Mouth, Daily at bedtime, # 30 tablet, Refills 0, Tot. Refills 0, Maintenance,03/12/23 15:04:00 EST, Route to Pharmacy Electronically, [facility] #[id number] Tablet, 183, cm, 03/12/23 5:13:00 EST, Height, 125.2, kg, 02/22/23... Start Date: 03/12/23 Status: Ordered SEROquel 25 mg oral tablet 50 mg, By Mouth, Every 8 hours, PRN, # 90 tablet, Refills 0, Tot. Refills 0, Maintenance, Anxiety, 03/12/23 14:05:00 EST, Route to Pharmacy Electronically, [facility] #[id number], 183, cm, 03/12/23 5:13:00 EST, Height, 125.2, kg, 02/22/23 14:00:0... Start Date: 03/12/23 Status: Ordered tamsulosin 0.4 mg oral capsule 0.4 mg, By Mouth, Daily, # 30 capsule, Refills 0, Tot. Refills 0, Maintenance, 03/12/23 15:06:00 EST, Route to Pharmacy Electronically, [facility] #[id number], 183, cm, 03/12/23 5:13:00 EST, Height, 125.2, kg, 02/22/23 14:00:00 EST, Dry Weight Start Date: 03/12/23 Status: Ordered tiZANidine 2 mg oral tablet 2 mg, 1, tablet, By Mouth, 3 times a day, PRN, # 30 tablet, Refills 0, Tot. Refills 0, Maintenance,Spasm, 03/12/23 19:27:00 EST, Route to Pharmacy Electronically, [facility] #[id number], ., 183, cm, 03/12/23 5:13:00 EST, Height, [...] to CAB a few times 04/28/2018: started [facility] bup/nal program Last Assessment & Plan: On suboxone 8-2mg bid. Per pt would like to change to methadone. Reports had been getting approx 4 mos ago. States still having cravings with suboxone- but denies any recent use. DW [place] Smearer and will work to connect him with methadone clinic for dosing. Will continue Suboxone 8-2mg bid at this time. Not interested in tx program at this time. CTM. 2Outside Source Comment: Last Assessment & Plan: Recent inpt psych hospitalization in [facility]. Denies any SI/HI at this time but very anxious about medications. DW pt no dose adjustments at this time and will need to connect with psych at [facility]- no current psych provider. Pt contracts for safety. Pt did come with rx avail- but sh ort on lorazepam. Will fill at this time but ensure has prescriber on d/c. met with pt todayand psych referral placed. Administration aware. Social History Social History Type Response Tobacco Use: 4 or less cigar ettes(less than 1/4 pack)/day in last 30 days. Sex Implantable Device List Procedure Provider Procedure Date Device Type Site Repair Hernia Ventral Laparoscopic Gus Vivas MD 09/13/20 Unknown Abdomen Device Identifier Serial Number Lot or Batch Number Manufacturing Date Expiration Date Distinct Identification Code MRI Safety Implantable Status 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 [id number] Unknown [id number] Unknown 03/11/21 Unknown Unknown Active GS1 Patient Care team information Care Team Personnel Name: Konrad Gallegos RN Position: [facility] ED RN [...] Role: Primary Care Nurse Address: Address: [address] [place] [phone]- Name: Sol Chanel RN Position: [facility] RN Member Role: Primary Care Nurse Name: Helene Pérez RN Position: [facility] RN Member Role: Primary Care Nurse Name: Brenda Cuba RN Position: [facility] HBO Wound Member Role: Primary Care Nurse Name: Kell Alonso RN Position: [facility] ED RN [...] Care Nurse Name: Anna Oconnor RN Position: [facility] International Operations Manager Member Role: Primary Care Nurse Name: Dalila Cerda RN Position: [facility] RN Member Role: Primary Care Nurse Name: Shamar Lynn RN Position: [facility] RN Member Role: Primary Care Nurse Name: Kip Gonzalez RN Position: [facility] RN Member Role: Primary Care Nurse Address: Address: [address] [place] [phone]- Name: April Acuña RN Position: [facility] RN Member Role: Primary Care Nurse Name: Li Esquivel RN Position: [facility] International Operations Manager Member Role: Primary Care Nurse Name: Tunde White MD Position: [facility] Physician - Behavioral Health Member Role: Lifetime Consulting Physician Address: Address: [address] [place] [phone] [place] Care Team Related Persons Name: FORREST TO Address: [address] [place] [address] Name: MÓNICA CREWS
--- OUTSIDE RECORDS SUMMARY | 2023-05-04 10:49 | XMS_ITS | Continuity of Care Document ---
Author Name Unknown Organization [facility] Address [address] [place] [address]- Care Team Providers Care Order Entry Representative Name Role Phone Marvin Mac MD Primary Care Physician Encounter [facility] Date(s): 01/29/23 - 01/29/[address] [address]- Discharge Disposition: A-D/C Home Attending Physician: David Steinberg MD Admitting Physician: Maryan HENDERSON, David Referring Physician: Not on Staff, Referring MD Allergies, Adverse Reactions, Alerts Substance Reaction Severity Status Zoloft Active Remeron Active traZODone Active ZyPREXA Active Immunizations Given and Recorded Vaccine Date Status Refusal Reason tetanus/diphtheria/pertussis, acel(Tdap) 04/09/22 Recorded tetanus/diphtheria/pertussis, acel(Tdap) 05/18/18 Recorded tetanus/diphtheria/pertussis, acel(Tdap) 12/19/16 Recorded [id number] 12y+ bivalent booster vax 02/11/22 Recorded SARS-CoV-2 [...] Maintenance, 09/29/22 15:25:00 EDT,Route to Pharmacy Electronically, [facility] #[id number], Partial fill upon patient request ifthe prescription [...] 1 Refills, Maintenance, 09/29/22 15:26:00 EDT, Film, [facility] #[id number], Partial fill upon patient request if the [...] 1 Refills, Maintenance, 09/29/22 15:25:00 EDT, Tablet, [facility] #[id number], Partial fill upon patient request i... Start Date: 09/29/22 Status: Ordered cloNIDine 0.1 mg oral tablet 0.2 mg, By Mouth, 2 times a day, # 21 tablet, Refills 1, Tot. Refills 1, Maintenance, 09/29/22 15:26:00 EDT, Route to Pharmacy Electronically, [facility] #[id number], Partial fill upon patient request if the prescription is for a schedule II opio... Start Date: 09/29/22 Stop Date: 10/13/22 Status: Ordered diclofenac sodium 75 mg oral delayed release tablet 1 tablet = 75 mg, By Mouth, 2 times a day, PRN Pain , Moderate, # 60 tablet, 1 Refills, Maintenance, 01/04/23 15:55:00 EDT, EC [id number], Partial fill upon patient request if the [...] EDT, Route to Pharmacy Electronically, [facility], Partial fill upon patient [...] 0 Refills, Maintenance, 09/29/22 15:28:00 EDT, Tablet, [facility] #[id number], Partial fill upon patient request if the prescription is for a schedule II opioid drug., 182.88, cm, 09/29/22 14:33:00... Start Date: 09/29/22 Stop Date: 10/13/22 Status: Ordered furosemide 80 mg oral tablet 80 mg, 1, tablet, By Mouth, Daily, TAKE ONE TABLET BY MOUTH DAILY, # 14 tablet, Refills 1, Tot. Refills 1, Maintenance, 08/05/22 8:30:00 EDT, Route to Pharmacy Electronically, [facility], Partial fill upon patient [...] 0 Refills, Maintenance, 01/28/23 8:18:00 EST, Tablet, [facility] #[id number], Partial fill upon patient request if the prescription is for a schedule II opioid drug., 183, cm, 01/27/23 10:18:00 EST... Start Date: 01/28/23 Status: Ordered levothyroxine 0.05 mg oral tablet 1 tablet = 50 mcg, By Mouth, Daily, TAKE ONE TABLET BY MOUTH DAILY, # 14 tablet, 1 Refills, Maintenance, 08/05/22 8:30:00 EDT, Tablet, [facility], Partial fill upon patient request if the prescription is for a schedule II opioid drug., 1... Start Date: 08/05/22 Stop Date: 09/02/22 Status: Ordered methocarbamol 500 mg oral tablet 1 tablet = 500 mg, By Mouth, 3 times a day, PRN muscle spasm, for 10 days, # 30 tablet, 0 Refills, Acute 02/06/23 10:35:00 EST, 01/27/23 10:35:00 EST, Tablet, [facility] #[id number], Partial fill upon patient request if the [...] 0 Refills, Maintenance, 01/27/23 10:33:00 EST, Capsule, [facility] #[id number], Partial fill upon patient request if the [...] Replace Required Details, Route to Pharmacy Electronically, [facility]... Start Date: 12/11/22 Status: Ordered [...] suboxone- but denies any recent use. 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 Pt contracts for safety. Pt did come with rx avail- but sh ort on lorazepam. Will fill at this time but ensure has prescriber on d/c. BH met with pt todayand psych referral placed. Administration aware. Vital Signs Most recent to oldest [Reference Range]: 1 Height 183 cm (01/29/23 4:40 PM) Weight 128.7 kg (01/29/23 4:40 PM) Oxygen Saturation [94-100 %] 94 % (01/29/23 4:40 PM) Pulse Rate [55-90 bpm] 98 bpm *H* (01/29/23 4:40 PM) Blood Pressure [90-138/55-84 mm Hg] 133/ 73mm Hg (01/29/23 4:40 PM) Respiratory Rate [16-30 br/min] 18 br/mi n (01/29/23 4:40 PM) Temperature [96.8-100.4 DegF] 98.2 DegF (01/29/23 4:40 PM) Mode of Delivery (Oxygen) Room air (01/29/23 4:40 PM) Blood pressure sites Arm, left (01/29/23 4:40 PM) Temperature Route Oral (01/29/23 4:40 PM) Dry Weight 128.7 kg (01/29/23 4:40 PM) Social History Social History Type Response Smoking Status 10 or more cigarette s (1/2 pack or more)/day in last 30 days entered on: 3/29/22 Sex Implantable Device List Procedure Provider Procedure Date Device Type Site Repair Hernia Ventral Laparoscopic Gus Vivas MD 09/13/20 Unknown Abdomen Device Identifier Serial Number Lot or Batch Number Manufacturing Date Expiration Date Distinct Identification Code MRI Safety Implantable Status 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 [id number] Unknown [id number] Unknown 03/11/21 Unknown Unknown Active GS1 Patient Care team information Care Team Personnel Name: Konrad Gallegos RN [facility] RN W/OE and Tasks Member Role: Primary Care Nurse Name: Anna Weaver RN [facility]: [facility] RN Member Role: Primary Care Nurse Name: Niki Bright RN [facility]: [facility] RN Member Role: Primary Care Nurse Name: Fang Che Position: [facility] RN Member Role: Primary Care Nurse Name: Trisha Alamo RN Position: [facility] RN Supv Member Role: Primary Care Nurse Name: Rita Son NP Position: [facility] Associate Professional Member Role: Primary Care Nurse Address: Address: [address] [place] [address]- [place] Name: Sol Chanel RN [facility]: [facility] RN Member Role: Primary Care Nurse Name: Helene Pérez RN Position: [facility] RN Member Role: Primary Care Nurse Name: Brenda Cuba RN Position: [facility] HBO Wound Member Role: Primary Care Nurse Name: Kell Alonso RN Position: [facility] RN Member Role: Primary Care Nurse Name: Richa Clay LPN Position: [facility] RN Member Role: Primary Care Nurse Name: Екатерина Chacko RN Position: [facility] RN Member Role: Primary Care Nurse Name: Marvin Mac MD Position: [facility] Physician - Primary Care Member Role: PCP Address: Address: [address] [place] [address]- [place] Name: Anna Oconnor RN Position: [facility] Medication Administration Professional Member Role: Primary Care Nurse Name: Kip Gonzalez RN [facility] RN Member Role: Primary Care Nurse Address: Address: [address] [place] [address]- [place] Name: April Acuña RN Position: [facility] RN Member Role: Primary Care Nurse Name: iL Esquivel RN Position: [facility] Medication Administration Professional Member Role: Primary Care Nurse Name: Tunde White MD Position: [facility] Physician - Behavioral Health Member Role: Lifetime Consulting Physician Address: Address: [address] [place] [address]- [place] Name: Kaylene Santana Position: [facility] Name: Katt Hu RN Position: [facility] RN W/OE and Tasks Name: David Steinberg MD Position: [facility] ED Medicine MD Member Role: Admitting Physician Address: Address: [address] [place] [address] [place] [address]- Care Team Related Persons Name: FORREST TO Address: home [address] [place] [address] Name: MÓNICA CREWS
--- OUTSIDE RECORDS SUMMARY | 2023-05-04 10:50 | XMS_ITS | Continuity of Care Document ---
Author Name Unknown Organization [facility] Address [address] [place] [address]- Care Team Providers Care Vest Front Presser Name Role Phone Marvin Mac MD Primary Care Physician Encounter [facility] Date(s): 11/22/22 - 11/22/[address] [address]- Discharge Disposition: A-D/C Home Attending Physician: Bal Bassett DO Admitting Physician: Bal Bassett DO Referring Physician: Not on Staff, Referring MD Allergies, Adverse Reactions, Alerts Substance Reaction Severity Status Zoloft Active Remeron Active traZODone Active ZyPREXA Active Immunizations Given and Recorded Vaccine Date Status Refusal Reason tetanus/diphtheria/pertussis, acel(Tdap) 04/09/22 Recorded tetanus/diphtheria/pertussis, acel(Tdap) 05/18/18 Recorded tetanus/diphtheria/pertussis, acel(Tdap) 12/19/16 Recorded [id number] 12y+ bivalent booster vax 02/11/22 Recorded SARS-CoV-2 [...] Maintenance, 09/29/22 15:25:00 EDT,Route to Pharmacy Electronically, [facility] #[id number], Partial fill upon patient request ifthe prescription is for a schedule II opioid drug.,... Start Date: 09/29/22 Stop Date: 10/13/22 Status: Ordered buprenorphine-naloxone 8 mg-2 mg sublingual film 2 film, Sublingual, Daily, # 14 film, 1 Refills, Maintenance, 09/29/22 15:26:00 EDT, Film, [facility] #[id number], Partial fill upon patient request if the [...] 1 Refills, Maintenance, 09/29/22 15:25:00 EDT, Tablet, [facility] #[id number], Partial fill upon patient request i... Start Date: 09/29/22 Status: Ordered cloNIDine 0.1 mg oral tablet 0.2 mg, By Mouth, 2 times a day, # 21 tablet, Refills 1, Tot. Refills 1, Maintenance, 09/29/22 15:26:00 EDT, Route to Pharmacy Electronically, [facility] #[id number], Partial fill upon patient request if the prescription is for a schedule II opio... Start Date: 09/29/22 Stop Date: 10/13/22 Status: Ordered diclofenac sodium 75 mg oral delayed release tablet 1 tablet = 75 mg, By Mouth, 2 times a day, PRN Pain , Moderate, # 60 tablet, 0 Refills, Maintenance, 11/13/22 16:31:00 EDT, EC Tablet, [facility] #[id number], Partial fill upon patient request if the [...] 0 Refills, Maintenance, 09/29/22 15:28:00 EDT, Tablet, [facility] #[id number], Partial fill upon patient request if the [...] Route to Pharmacy Electronically, [facility], Partial fill upon patient request if the prescrip... Start Date: 08/05/22 Stop Date: 09/02/22 Status: Ordered levothyroxine 0.05 mg oral tablet 1 tablet = 50 mcg, By Mouth, Daily, TAKE ONE TABLET BY MOUTH DAILY, # 14 tablet, 1 Refills, Maintenance, 08/05/22 8:30:00 EDT, Tablet, [facility], Partial fill upon patient request if the prescription is for a schedule II opioid drug., 1... Start Date: 08/05/22 Stop Date: 09/02/22 Status: Ordered pregabalin 50 mg oral capsule = 200 mg, By Mouth, 2 times a day, # 40 capsule, 1 Refills, Maintenance, 11/12/22 15:56:00 EDT, Capsule, [facility] #[id number], Partial fill upon patient request if the [...] 11/10/22 9:05:00 EDT, Route to Pharmacy Electronically, [facility] #[id number], 185, cm, 11/07/22 16:28:00 EDT, Height, 133.7, [...] to CAB a few times 04/28/2018: started [facility] bup/nal program Last Assessment & Plan: On suboxone 8-2mg bid. Per pt would like to change to methadone. Reports had been getting approx 4 mos ago. States still having cravings with suboxone- but denies any recent use. 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 5Outside Source Comment: Last Assessment & Plan: Recent inpt psych hospitalization in [facility]. Denies any SI/HI at this time but very anxious about medications. DW pt no dose adjustments at this time and will need to connect with psych at [facility]- no current psych provider. Pt contracts for safety. Pt did come with rx avail- but sh ort on lorazepam. Will fill at this time but ensure has prescriber on d/c. met with pt todayand psych referral placed. Administration aware. Results Radiology Reports * Exam Date Time Procedure Performing Provider Status 11/22/22 12:50 AM Chest 2 Views Frontal and Lat Mary De La Cruz; Auth (Verified) Notes: (Chest 2 Views Frontal and Lat) Reason For Exam: Shortness of Breath RESULT: Chest 2 Views Frontal and Lat Chest 2 Views Frontal and Lat Hx of Present Illness: CP SOB X 2 hors - reports excessive caffeine today; Reason: Shortness of Breath; Clinical Question(s): CHF COMPARISON: 10/20/2022 FINDINGS: LINES AND TUBES: None. LUNGS AND PLEURA: Mild prominence of the central pulmonary arteries. Atelectasis in the right lower lung. Borderline for low lung volumes. No consolidation. No pleural effusion. No pneumothorax. HEART, MEDIASTINUM AND WAYNE: Heart is normal in size. Normal mediastinal and hilar contour. BONES AND SOFT TISSUES: No acute abnormality. IMPRESSION: Mild central vascular congestion versus atelectasis. There is also mild right basilar atelectasis with borderline low lung volumes. No lobar consolidation or pleural effusion. WSN: [id number] Ordering Physician: Bal Bassett Dictated By: Felicitas Lacey MD Dictated Date/Time: 11/22/22 5:34 am Reviewed By: Felicitas Lacey MD Signed By: Felicitas Lacey MD Signed Date/Time: 11/22/22 5:34 am Transcribed By: RAVINDER Transcribed Date/Time: 11/22/22 5:32 am Vital Signs Most recent to oldest [Reference Range]: 1 2 Height 174 cm (11/22/22 12:15 AM) Weight 118 kg (11/22/22 12:15 AM) Oxygen Saturation [94-100 %] 98 % (11/22/22 1:00 AM) 97 % (11/22/22 12:15 AM) Pulse Rate [55-90 bpm] 87 bpm (11/22/22 1:00 AM) 91 bpm *H* (11/22/22 12:15 AM) Blood Pressure [90-138/55-84 mm Hg] 118/ 88mm Hg (11/22/22 1:00 AM) 124/74mm Hg (11/22/22 12:15 AM) Respiratory Rate [16-30 br/min] 16 br/mi n (11/22/22 1:00 AM) 18 br/min (11/22/22 12:15 AM) Temperature [96.8-100.4 DegF] 97.8 DegF (11/22/22 12:15 AM) Mode of Delivery (Oxygen) Room air (11/22/22 12:15 AM) Blood pressure sites Arm, right (11/22/22 1:00 AM) Arm, right (11/22/22 12:15 AM) Temperature Route Temporal (11/22/22 12:15 AM) Dry Weight 118 kg (11/22/22 12:15 AM) Social History Social History Type Response [...] Code MRI Safety Implantable Status 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 [id number] Unknown [id number] Unknown 03/11/21 Unknown Unknown Active GS1 Patient Care team information Care Team Personnel Name: Konrad Gallegos RN Position: [facility] ED RN W/OE and Tasks Member Role: Primary Care Nurse Name: Niki Bright RN Position: [facility] RN Member Role: Primary Care Nurse Name: Fang Che Position: [facility] RN Member Role: Primary Care Nurse Name: Trisha Alamo RN Position: [facility] RN Supv Member Role: Primary Care Nurse Name: Rita Son NP Position: [facility] Associate Professional Member Role: Primary Care Nurse Address: Address: [address] [place] [address]- [place] Name: Sol Chanel RN Position: [facility] RN Member Role: Primary Care Nurse Name: Trisha Beltrán RN Position: [facility] RN Supv Member Role: Primary Care Nurse Name: Helene Pérez RN Position: [facility] RN Member Role: Primary Care Nurse Name: Brenda Cuba RN Position: [facility] Wound Member Role: Primary Care Nurse Name: Kell Alonso RN Position: [facility] RN Member Role: Primary Care Nurse Name: Richa Clay LPN Position: [facility] RN Member Role: Primary Care Nurse Name: Екатерина Chacko RN Position: [facility] RN Member Role: Primary Care Nurse Name: Anna Lackey RN Position: [facility] RN Member Role: Primary Care Nurse Name: Marvin Mac MD Position: [facility] Physician - Primary Care Member Role: PCP Address: Address: [address] [place] [address]- [place] Name: Anna Oconnor RN Position: [facility] Landscape Crew Member Member Role: Primary Care Nurse Name: Kip Gonzalez RN Position: [facility] RN Member Role: Primary Care Nurse Address: Address: [address] [place] [address]- [place] Name: Sunitha Gutierrez RN Position: [facility] RN Member Role: Primary Care Nurse Name: April Acuña RN Position: [facility] RN Member Role: Primary Care Nurse Name: Li Esquivel RN Position: [facility] Hospital Landscape Crew Member Member Role: Primary Care Nurse Name: Tunde White MD Position: [facility] Physician - Behavioral Health Member Role: Lifetime Consulting Physician Address: Address: [address] [place] [address]- Name: Bal Bassett DO Position: [facility] ED Medicine MD Member Role: ED Attending Physician Address: Address: [address] [place] [address] [place] [address]- Name: Neelima Vee RN Position: [facility] ED RN W/OE and Tasks Member Role: Patient Care Provider Name: Yaritza Brand Position: [facility] ED [facility] Member Role: Patient Care Provider Care Team Related Persons Name: FORREST TO Address: [address] [place] [address] Name: MÓNICA CREWS
--- OUTSIDE RECORDS SUMMARY | 2023-05-04 10:50 | XMS_ITS | Continuity of Care Document ---
Author Name Unknown Organization [facility] [place] Address [address] [place] [address]- Care Team Providers Care Print Support Specialist Name Role Phone Not on Staff, PCP Primary Care Physician Unavail able Encounter [facility] Date(s): 04/01/23 - 04/01/[address] [address]- Discharge Disposition: A-D/C Home Attending Physician: Kayli HENDERSON, Xavier Rodrigues Admitting Physician: Xavier Milan MD Referring Physician: Not on Staff, Referring MD Allergies, Adverse Reactions, Alerts Substance Reaction Severity Status sertraline Fluoxetine Fluoxetine Active Zoloft Active traZODone Active OLANZapine Active Remeron Active ZyPREXA Active Immunizations Given and Recorded Vaccine Date Status Refusal Reason tetanus/diphtheria/pertussis, acel(Tdap) 04/09/22 Recorded tetanus/diphtheria/pertussis, acel(Tdap) 05/18/18 Recorded tetanus/diphtheria/pertussis, acel(Tdap) 12/19/16 Recorded [id number] 12y+ bivalent booster vax 02/11/22 Recorded SARS-CoV-2 [...] opioid drug. Start Date: 03/25/23 Status: Ordered acetaminophen-codeine 300 mg-30 mg oral tablet 2 tablet, Tablet, By Mouth, Once, STAT, 04/01/23 9:21:00 EST, Stop date 04/01/23 9:21:00 EST Start Date: 04/01/23 Stop Date: 04/01/23 Status: Completed ammonium lactate 12% topical cream See Instructions, Apply to lower legs and feet 2 times a day, avoiding open areas, # 385 Gm, 0 Refills, Maintenance, 03/12/23 14:01:00 EST, Cream, [facility] #[id number], Apply to lower legs andfeet 2 times a day, avoiding open areas, 183, cm, 1... Start Date: 03/12/23 Status: Ordered bethanechol 25 mg oral tablet 25 mg, By Mouth, 4 times a day, # 120 tablet, Refills 0, Tot. Refills 0, Maintenance, 03/12/23 14:02:00 EST, Route to Pharmacy Electronically, [facility] #[id number], 183, cm, 03/12/23 5:13:00 EST, Height, 125.2, kg, 02/22/23 14:00:00 EST, Dry We... Start Date: 03/12/23 Status: Ordered buPROPion 300 mg/24 hours (XL) oral tablet, extended release 1 tablet = 300 mg, By Mouth, Daily, # 30 tablet, 0 Refills, Maintenance, 03/12/23 15:02:00 EST, XL Tablet, [facility] #[id number], 183, cm, 03/12/23 5:13:00 EST, Height, 125.2, kg, 02/22/23 14:00:00 EST, Dry Weight Start Date: 03/12/23 Status: Ordered busPIRone 30 mg oral tablet 1 tablet = 30 mg, By Mouth, 2 times a day, # 60 tablet, 0 Refills, Maintenance, 03/12/23 15:02:00 EST, Tablet, [facility] #[id number], 183, cm, 03/12/23 5:13:00 EST, Height, 125.2, [...] Refills, Maintenance, 03/12/23 13:59:00 EST, ER Tablet, [facility] #[id number], 183, cm, 03/12/23 5:13:00 EST, Height, 125.2, kg, 02/22/23 14:00:00 EST, Dry Weight Start Date: 03/12/23 Status: Ordered Depakote ER 500 mg oral tablet, extended release 3 tablet = 1,500 mg, By Mouth, Daily, total dose is 1750 QD, # 90 tablet, 0 Refills, Maintenance, 03/12/23 13:58:00 EST, ER Tablet, [facility] #[id number], 183, cm, 03/12/23 5:13:00 EST, Height,125.2, kg, [...] 03/26/23 9:50:00 EST, Route to Pharmacy Electronically, [facility] #[id number], Partial fill upon patient request if the prescription is for a schedule II opioi... Start Date: 03/26/23 Stop Date: 04/25/23 Status: Ordered levothyroxine 75 mcg (0.075 mg) oral tablet = 75 mcg, By Mouth, Daily, # 30 tablet, 0 Refills, Maintenance, 03/12/23 14:00:00 EST, Tablet, [facility] #[id number], 183, cm, 03/12/23 5:13:00 EST, Height, 125.2, kg, 02/22/23 14:00:00 EST, Dry Weight Start Date: 03/12/23 Status: Ordered Methadone = 110 mg, By Mouth, Daily, 0 Refills, Maintenance, 03/26/23 9:50:00 EST, Tablet, Partial fill upon patient request if the prescription is for a schedule II opioid drug. Start Date: 03/26/23 Status: Ordered Methadone Tablet 110 mg, Tablet, By Mouth, Once, Routine, 04/01/23 8:00:00 EST, Stop date 04/01/23 8:00:00 EST Start Date: 04/01/23 Stop Date: 04/01/23 Status: Completed naproxen 500 mg oral delayed release tablet 1 tablet = 500 mg, By Mouth, 2 times a day, for 30 days, # 60 tablet, 0 Refills, Acute 05/01/23 14:40:00 EST, 04/01/23 14:40:00 EST, EC Tablet, [facility] #[id number], Partial fill upon patient request if the [...] Refills, Maintenance, 03/14/23 9:00:00 EST, ER Tablet, [facility] #[id number], 183, cm, 03/13/23 7:38:00 EST, Height, 125.2, kg, 02/22/23 14:00:00 EST, Dry Weight Start Date: 03/14/23 Status: Ordered prazosin 5 mg oral capsule 5 mg, 1, capsule, By Mouth, 2 times a day, # 60 capsule, Refills 0, Tot. Refills 0, Maintenance, 03/12/23 14:03:00 EST, Route to Pharmacy Electronically, [facility] #[id number], Partial fill upon patient request if the prescription is for a sched... Start Date: 03/12/23 Status: Ordered pregabalin 150 mg oral capsule 1 capsule = 150 mg, By Mouth, 2 times a day, # 180 capsule, 0 Refills, Maintenance, 01/27/23 10:33:00 EST, Capsule, [facility] #[id number], Partial fill upon patient request if the prescription is for a schedule II opioid drug., 183, cm, 01/27/23... Start Date: 01/27/23 Status: Ordered promethazine 25 mg oral tablet 0.5 each = 12.5 mg, By Mouth, Every 6 hours, PRN Nausea & Vomiting, # 20 tablet, 0 Refills, Maintenance, 03/12/23 19:26:00 EST, Tablet, [facility] #[id number], 183, cm, 03/12/23 5:13:00 EST,Height, 125.2, kg, 02/22/23 14:00:00 EST, Dry Weight Start Date: 03/12/23 Status: Ordered rivaroxaban 20 mg oral tablet = 20 mg, By Mouth, Daily at supper, # 30 tablet, 0 Refills, Maintenance, 04/01/23 15:05:00 EST, Tablet, [facility] #[id number], 183, cm, 03/12/23 5:13:00 EST, Height, 125.2, kg, 02/22/23 14:00:00 EST, Dry Weight Start Date: 04/01/23 Status: Ordered Senna 8.6 mg oral tablet 8.6 mg, 1, tablet, By Mouth, Daily at bedtime, # 30 tablet, Refills 0, Tot. Refills 0, Maintenance,03/12/23 15:04:00 EST, Route to Pharmacy Electronically, [facility] #[id number] Tablet, 183, cm, 03/12/23 5:13:00 EST, Height, 125.2, kg, 02/22/23... Start Date: 03/12/23 Status: Ordered SEROquel 25 mg oral tablet 50 mg, By Mouth, Every 8 hours, PRN, # 90 tablet, Refills 0, Tot. Refills 0, Maintenance, Anxiety, 03/12/23 14:05:00 EST, Route to Pharmacy Electronically, [facility] #[id number], 183, cm, 03/12/23 5:13:00 EST, Height, 125.2, kg, 02/22/23 14:00:0... Start Date: 03/12/23 Status: Ordered tamsulosin 0.4 mg oral capsule 0.4 mg, By Mouth, Daily, # 30 capsule, Refills 0, Tot. Refills 0, Maintenance, 03/12/23 15:06:00 EST, Route to Pharmacy Electronically, [facility] #[id number], 183, cm, 03/12/23 5:13:00 EST, Height, 125.2, kg, 02/22/23 14:00:00 EST, Dry Weight Start Date: 03/12/23 Status: Ordered tiZANidine 2 mg oral tablet 2 mg, 1, tablet, By Mouth, 3 times a day, PRN, # 30 tablet, Refills 0, Tot. Refills 0, Maintenance,Spasm, 03/12/23 19:27:00 EST, Route to Pharmacy Electronically, [facility] #[id number], ., 183, cm, 03/12/23 5:13:00 EST, Height, [...] suboxone- but denies any recent use. 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 Will continue Suboxone 8-2mg bid at this time. Not interested in tx program at this time. CTM. 2Outside Source Comment: Last Assessment & Plan: Recent inpt psych hospitalization in [facility]. Denies any SI/HI at this [...] Exam Date Time Procedure Performing Provider Status 04/01/23 2:04 PM US Doppler Ext Lower Venous Left Guillermina Zarate; Auth (Verified) Notes: (US Doppler Ext Lower Venous Left) Reason For Exam: Pain in limb;Other: RESULT: US Doppler Ext Lower Venous Left US Doppler Ext Lower Venous Left Hx of Present Illness: LLE pain and swelling. Pt noticed that his leg was swollen after taking his pants off for the first time in 4 days. + scabbing from previous vericose veins. Pt also reporting Rknee pain. + pulses bilat.. Hypotensive in triage, took double his Prazosin.; Reason: Other:; Pain in limb; Clinical Question(s): Thrombus COMPARISON: 03/11/2023. IMAGING TECHNIQUE: Ultrasound of the veins from the groin through the calf was performed using grayscale, color, and spectral Doppler ultrasound assessing for complete compressibility and normal flowcharacteristics. FINDINGS: Common femoral vein: Patent. No thrombosis. Femoral vein: Patent. No thrombosis. Popliteal vein: Patent. No thrombosis. Apparent resolution of previously seen echogenic material. Gastrocnemius veins: The visualized portions are patent without evidence of thrombosis. Peroneal veins: Not visualized. Posterior tibial veins: The visualized portions are patent without evidence of thrombosis. Contralateral common femoral vein: Patent. No thrombosis. OTHER FINDINGS: There is diffuse calf edema. Prominent lymph nodes in the left groin. IMPRESSION: 1. No evidence of deep venous thrombosis within the vein successfully visualized. 2. Apparent resolution of previously seen findings in the popliteal vein. WSN: [id number] Ordering Physician: Xavier Milan Dictated By: Vik Mcqueen MD Dictated Date/Time: 04/01/23 2:15 pm Reviewed By: Vik Mcqueen MD Signed By: Vik Mcqueen MD Signed Date/Time: 04/01/23 2:15 pm Transcribed By: RAVINDER Transcribed Date/Time: 04/01/23 2:12 pm * Exam Date Time Procedure Performing Provider Status 04/01/23 1:10 AM Knee 1 or 2 Views Right Josh Christopher farley L; Modified Notes: (Knee 1 or 2 Views Right) Reason For Exam: Pain RESULT: Knee 1 or 2 Views Right Examination: Right knee performed on 04/01/2023. History: Hx of Present Illness: LLE pain and swelling. Pt noticed that his leg was swollen after taking his pants off for the first time in 4 days. + scabbing from previous vericose veins. Pt also reporting R knee pain. + pulses bilat.. Hypotensive in triage, took double his Prazosin.; Reason: Pain; Clinical Question(s): Fracture Findings: Attempted frontal and lateral views of the right knee are compared to a prior study dated 11/16/2022.The study is limited due to positioning. Joint space narrowing with articular surface remodeling in the medial compartment is unchanged fromthe prior study. No fractures are present. A moderate joint effusion is seen. Impression: Moderate osteoarthritic change with a moderate joint effusion. WSN: [id number] Ordering Physician: Bal Bassett Dictated By: Katelyn Kaufman MD Dictated Date/Time: 04/01/23 7:20 am Reviewed By: Katelyn Kaufman MD Signed By: Katelyn Kaufman MD Signed Date/Time: 04/01/23 7:20 am Transcribed By: RAVINDER Transcribed Date/Time: 04/01/23 7:19 am Vital Signs Most recent to oldest [Reference Range]: 1 2 3 Height 186 cm (04/01/23 5:54 AM) 186 cm (04/01/23 5:09 AM) 186 cm (04/01/23 3:55 AM) Weight 140 kg (04/01/23 5:54 AM) 140 kg (04/01/23 5:09 AM) 140 kg (04/01/23 1:39 AM) Oxygen Saturation [94-100 %] 100 % (04/01/23 11:00 AM) 100 % (04/01/23 5:54 AM) 100 % (04/01/23 5:09 AM) Pulse Rate [55-90 bpm] 123 bpm *H* (04/01/23 11:00 AM) 88 bpm (04/01/23 5:54 AM) 88 bpm (04/01/23 5:09 AM) Body Mass Index [18.5-24.99 kg/m2] 40.47 kg/m2 *>HHI* (04/01/23 5:54 AM) 40.47 kg/m2 *>HHI* (04/01/23 5:09 AM) 40.47 kg/m2 *>HHI* (04/01/23 1:39 AM) Blood Pressure [90-138/55-84 mm Hg] 125/76mm Hg (04/01/23 11:00 AM) 125/74mm Hg (04/01/23 5:54 AM) 108/73mm Hg (04/01/23 5:09 AM) Respiratory Rate [16-30 br/min] 16 br/min (04/01/23 9:30 AM) 16 br/min (04/01/23 8:22 AM) 18 br/min (04/01/23 5:54 AM) Temperature [96.8-100.4 DegF] 98.2 DegF (04/01/23 11:00 AM) 97.5 DegF (04/01/23 5:09 AM) 97.5 DegF (04/01/23 3:55 AM) Mode of Delivery (Oxygen) Room air (04/01/23 11:00 AM) room air (04/01/23 5:54 AM) Room air (04/01/23 5:09 AM) Blood pressure sites Arm, right (04/01/23 11:00 AM) Arm, left (04/01/23 5:54 AM) Arm, right (04/01/23 5:09 AM) Temperature Route Oral (04/01/23 11:00 AM) Oral (04/01/23 5:09 AM) Oral (04/01/23 3:55 AM) Dry Weight 140 kg (04/01/23 5:54 AM) 140 kg (04/01/23 5:09 AM) 140 kg (04/01/23 1:39 AM) Social History Social History Type Response Tobacco Use: 4 or less cigar ettes(less than 1/4 pack)/day in last 30 days. Sex Implantable Device List Procedure Provider Procedure Date Device Type Site Repair Hernia Ventral Laparoscopic Gus Vivas MD 09/13/20 Unknown Abdomen Device Identifier Serial Number Lot or Batch Number Manufacturing Date Expiration Date Distinct Identification Code MRI Safety Implantable Status 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 [id number] Unknown [id number] Unknown 03/11/21 Unknown Unknown Active GS1 EKG study * Event Display: ECG 12-Lead Authored Date: Please click on pdf link to open report * Event Display: ECG 12-Lead Authored Date: Ventricular Rate: 84 BPM Atrial Rate: 84 BPM P-R Interval: 152 ms QRS Duration: 86 ms Q-T Interval: 392 ms QTC Calculation(Bazett): 463 ms P Leonard: 28 degrees R Leonard: -4 degrees T Leonard: 9 degrees Normal sinus rhythm Voltage criteria for left ventricular hypertrophy Abnormal ECG When compared with ECG of 24-MAR-2023 14:27, No significant change was found Confirmed by LORNE SEALS MD ([id number]) on 04/01/2023 5:54:56 PM Brandon: LORNE SEALS MD * Event Display: EKG Authored Date: Note * Xavier Milan MD: PERFORM Event Display: Patient Education Leaflets Authored Date: [id number] Leg Swelling in Both Legs ?? [id number] Leg Swelling in Both Legs Swelling of [...] insufficiency or varicose veins, don't sit or loading checker one place for long periods of time. [...] chest pain? Last Reviewed Date: 2021 ?? [id number] [employer]. All rights reserved. This information is not intended as a substitute for professional medical care. Always follow your healthcare professional's instructions. ?? Patient Care team information Care Team Personnel Name: Konrad Gallegos RN Position: [facility] ED RN W/OE and Tasks Member Role: Primary Care Nurse Name: Anna Weaver RN Position: [facility] [...] Role: Primary Care Nurse Address: Address: [address] [place] [id number] Name: Sol Chanel RN Position: [facility] RN Member Role: Primary Care Nurse Name: Helene Pérez RN Position: [facility] RN Member Role: Primary Care Nurse Name: Brenda Cuba RN Position: [facility] HBO Wound Member Role: Primary Care Nurse Name: Kell Alonso RN Position: [facility] ED RN W/OE and Tasks Member Role: Primary Care Nurse Name: Belen Tesfaye RN Position: [facility] RN Member Role: Primary Care Nurse Name: Richa Clay LPN Position: [facility] RN Member Role: Primary Care Nurse Name: Aury Pandya RN Position: [facility] RN Member Role: Primary Care Nurse Name: Prisca Meng RN Position: [facility] RN Member Role: Primary Care Nurse Name: Екатерина Chacko RN Position: [facility] RN Member Role: Primary Care Nurse Name: Sadaf Tubbs RN Position: [facility] RN Member Role: Primary Care Nurse Name: Arjun Malagon RN Position: [facility] RN Member Role: Primary Care Nurse Name: Not on Staff, PCP Position: [facility] Physician (General Medicine) Member Role: PCP Name: Milo Leonard RN Position: [facility] RN Member Role: Primary Care Nurse Name: Anna Oconnor RN Position: [facility] [employer] Member Role: Primary Care Nurse Name: Dalila Cerda RN Position: [facility] RN Member Role: Primary Care Nurse Name: Shamar Lynn RN Position: [facility] RN Member Role: Primary Care Nurse Name: Kip Gonzalez RN Position: [facility] RN Member Role: Primary Care Nurse Address: Address: [address] [place] [id number]- Name: April Acuña RN Position: [facility] RN Member Role: Primary Care Nurse Name: Li Esquivel RN Position: [facility] [employer] Member Role: Primary Care Nurse Name: Tunde White MD Position: [facility] Physician - [facility] Member Role: [employer] Consulting Physician Address: Address: [address] [place] [id number]- Care Team Related Persons Name: FORREST TO Address: [address] [place] [address] Name: MÓNICA CREWS
--- OUTSIDE RECORDS SUMMARY | 2023-05-04 10:50 | XMS_ITS | Continuity of Care Document ---
Author Name Unknown Organization [facility] Address [address] [place] [address]- Care Team Providers Care Chemical Production Technician Name Role Phone Not on Staff, PCP Primary Care Physician Unavail able [place] [facility] [place]23 [facility] [address] [place] [address]- Allergies, Adverse Reactions, Alerts Substance Reaction Severity Status sertraline Fluoxetine Fluoxetine Active Zoloft Active Remeron Active traZODone Active OLANZapine Active ZyPREXA Active Immunizations Given and Recorded Vaccine Date Status Refusal Reason tetanus/diphtheria/pertussis, acel(Tdap) 04/09/22 Recorded tetanus/diphtheria/pertussis, acel(Tdap) 05/18/18 Recorded tetanus/diphtheria/pertussis, acel(Tdap) 12/19/16 Recorded [id number] 12y+ bivalent booster vax 02/11/22 Recorded SARS-CoV-2 [...] 0 Refills, Maintenance, 03/12/23 14:01:00 EST, Cream, [facility] #[id number], Apply to lower legs andfeet 2 times a day, avoiding open areas, 183, cm, 1... Start Date: 03/12/23 Status: Ordered bethanechol 25 mg oral tablet 25 mg, By Mouth, 4 times a day, # 120 tablet, Refills 0, Tot. Refills 0, Maintenance, 03/12/23 14:02:00 EST, Route to Pharmacy Electronically, [facility] #[id number], 183, cm, 03/12/23 5:13:00 EST, Height, 125.2, kg, 02/22/23 14:00:00 EST, Dry We... Start Date: 03/12/23 Status: Ordered buPROPion 300 mg/24 hours (XL) oral tablet, extended release 1 tablet = 300 mg, By Mouth, Daily, # 30 tablet, 0 Refills, Maintenance, 03/12/23 15:02:00 EST, XL Tablet, [facility] #[id number], 183, cm, 03/12/23 5:13:00 EST, Height, 125.2, kg, 02/22/23 14:00:00 EST, Dry Weight Start Date: 03/12/23 Status: Ordered busPIRone 30 mg oral tablet 1 tablet = 30 mg, By Mouth, 2 times a day, # 60 tablet, 0 Refills, Maintenance, 03/12/23 15:02:00 EST, Tablet, [facility] #[id number], 183, cm, 03/12/23 5:13:00 EST, Height, 125.2, [...] Refills, Maintenance, 03/12/23 13:59:00 EST, ER Tablet, [facility] #[id number], 183, cm, 03/12/23 5:13:00 EST, Height, 125.2, kg, 02/22/23 14:00:00 EST, Dry Weight Start Date: 03/12/23 Status: Ordered Depakote ER 500 mg oral tablet, extended release 3 tablet = 1,500 mg, By Mouth, Daily, total dose is 1750 QD, # 90 tablet, 0 Refills, Maintenance, 03/12/23 13:58:00 EST, ER Tablet, [facility] #[id number], 183, cm, 03/12/23 5:13:00 EST, Height,125.2, kg, [...] 03/26/23 9:50:00 EST, Route to Pharmacy Electronically, [facility] #[id number], Partial fill upon patient request if the prescription is for a schedule II opioi... Start Date: 03/26/23 Stop Date: 04/25/23 Status: Ordered levothyroxine 75 mcg (0.075 mg) oral tablet = 75 mcg, By Mouth, Daily, # 30 tablet, 0 Refills, Maintenance, 03/12/23 14:00:00 EST, Tablet, [facility] #[id number], 183, cm, 03/12/23 5:13:00 EST, Height, 125.2, [...] 14:40:00 EST, 04/01/23 14:40:00 EST, EC Tablet, [facility] #[id number], Partial fill upon patient request if the [...] Refills, Maintenance, 03/14/23 9:00:00 EST, ER Tablet, [facility] #[id number], 183, cm, 03/13/23 7:38:00 EST, Height, 125.2, kg, 02/22/23 14:00:00 EST, Dry Weight Start Date: 03/14/23 Status: Ordered prazosin 5 mg oral capsule 5 mg, 1, capsule, By Mouth, 2 times a day, # 60 capsule, Refills 0, Tot. Refills 0, Maintenance, 03/12/23 14:03:00 EST, Route to Pharmacy Electronically, [facility] #[id number], Partial fill upon patient request if the prescription is for a sched... Start Date: 03/12/23 Status: Ordered pregabalin 150 mg oral capsule 1 capsule = 150 mg, By Mouth, 2 times a day, # 180 capsule, 0 Refills, Maintenance, 01/27/23 10:33:00 EST, Capsule, [facility] #[id number], Partial fill upon patient request if the prescription is for a schedule II opioid drug., 183, cm, 01/27/23... Start Date: 01/27/23 Status: Ordered promethazine 25 mg oral tablet 0.5 each = 12.5 mg, By Mouth, Every 6 hours, PRN Nausea & Vomiting, # 20 tablet, 0 Refills, Maintenance, 03/12/23 19:26:00 EST, Tablet, [facility] #[id number], 183, cm, 03/12/23 5:13:00 EST,Height, 125.2, kg, 02/22/23 14:00:00 EST, Dry Weight Start Date: 03/12/23 Status: Ordered rivaroxaban 20 mg oral tablet = 20 mg, By Mouth, Daily at supper, # 30 tablet, 0 Refills, Maintenance, 04/01/23 15:05:00 EST, Tablet, [facility] #[id number], 183, cm, 03/12/23 5:13:00 EST, Height, 125.2, kg, 02/22/23 14:00:00 EST, Dry Weight Start Date: 04/01/23 Status: Ordered Senna 8.6 mg oral tablet 8.6 mg, 1, tablet, By Mouth, Daily at bedtime, # 30 tablet, Refills 0, Tot. Refills 0, Maintenance,03/12/23 15:04:00 EST, Route to Pharmacy Electronically, [facility] #[id number] Tablet, 183, cm, 03/12/23 5:13:00 EST, Height, 125.2, kg, 02/22/23... Start Date: 03/12/23 Status: Ordered SEROquel 25 mg oral tablet 50 mg, By Mouth, Every 8 hours, PRN, # 90 tablet, Refills 0, Tot. Refills 0, Maintenance, Anxiety, 03/12/23 14:05:00 EST, Route to Pharmacy Electronically, [facility] #[id number], 183, cm, 03/12/23 5:13:00 EST, Height, 125.2, kg, 02/22/23 14:00:0... Start Date: 03/12/23 Status: Ordered tamsulosin 0.4 mg oral capsule 0.4 mg, By Mouth, Daily, # 30 capsule, Refills 0, Tot. Refills 0, Maintenance, 03/12/23 15:06:00 EST, Route to Pharmacy Electronically, [facility] #[id number], 183, cm, 03/12/23 5:13:00 EST, Height, 125.2, kg, 02/22/23 14:00:00 EST, Dry Weight Start Date: 03/12/23 Status: Ordered tiZANidine 2 mg oral tablet 2 mg, 1, tablet, By Mouth, 3 times a day, PRN, # 30 tablet, Refills 0, Tot. Refills 0, Maintenance,Spasm, 03/12/23 19:27:00 EST, Route to Pharmacy Electronically, [facility] #[id number], ., 183, cm, 03/12/23 5:13:00 EST, Height, [...] to CAB a few times 04/28/2018: started [facility] bup/nal program Last Assessment & Plan: On suboxone 8-2mg bid. Per pt would like to change to methadone. Reports had been getting approx 4 mos ago. States still having cravings with suboxone- but denies any recent use. 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 Pt contracts for [...] Code MRI Safety Implantable Status 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 [id number] Unknown [id number] Unknown 03/11/21 Unknown Unknown Active GS1 Patient Care team information Care Team Personnel Name: Konrad Gallegos RN Position: [facility] ED RN W/OE and Tasks Member Role: Primary Care Nurse Name: Anna Weaver RN Position: [facility] RN Member Role: Primary Care Nurse Name: Niki Bright RN Position: [facility] RN Member Role: Primary Care Nurse Name: Fang Che Position: [facility] RN Member Role: Primary Care Nurse Name: Trisha Alamo RN Position: [facility] RN Supv Member Role: Primary Care Nurse Name: iRta Son NP Position: [facility] Associate Professional Member Role: Primary Care Nurse Address: Address: [address] [place] [id number]- Name: Sol Chanel RN Position: [facility] RN Member Role: Primary Care Nurse Name: Helene Pérez RN Position: [facility] RN Member Role: Primary Care Nurse Name: Brenda Cuba RN Position: [facility] HBO Wound Member Role: Primary Care Nurse Name: Kell Alonso RN Position: [facility] ED RN W/OE and Tasks Member Role: Primary Care Nurse Name: Belen Tesfaye RN Position: [facility] RN Member Role: Primary Care Nurse Name: Richa Clay LPN Position: [facility] RN Member Role: Primary Care Nurse Name: Aury Pandya RN Position: [facility] RN Member Role: Primary Care Nurse Name: Prisca Meng RN Position: [facility] RN Member Role: Primary Care Nurse Name: Екатерина Chacko RN Position: [facility] RN Member Role: Primary Care Nurse Name: Sadaf Tubbs RN Position: [facility] RN Member Role: Primary Care Nurse Name: Arjun Malagon RN Position: [facility] RN Member Role: Primary Care Nurse Name: Not on Staff, PCP Position: [facility] Physician (General Medicine) Member Role: PCP Name: Milo Leonard RN Position: [facility] RN Member Role: Primary Care Nurse Name: Anna Oconnor RN Position: [facility] Industrial Waste Treatment Technician Member Role: Primary Care Nurse Name: Dalila Cerda RN Position: [facility] RN Member Role: Primary Care Nurse Name: Shamar Lynn RN Position: [facility] RN Member Role: Primary Care Nurse Name: Kip Gonzalez RN Position: [facility] RN Member Role: Primary Care Nurse Address: Address: [address] [place] [id number]- Name: April Acuña RN Position: [facility] RN Member Role: Primary Care Nurse Name: Li Esquivel RN Position: [facility] Industrial Waste Treatment Technician Member Role: Primary Care Nurse Name: Tunde Whiet MD Position: [facility] Physician - Behavioral Health Member Role: Lifetime Consulting Physician Address: Address: [address] [place] [id number] [place] Care Team Related Persons Name: FORREST TO Address: [address] [place] [address] Name: MÓNICA CREWS
--- NOTE | 2023-05-04 10:51 | ED_ITS ---
HPI - General Adult General Chief complaint: Extremity Injury, Lower Stated complaint: BLE NUMBNESS X'S WEEKS PER EMS Time Seen by Provider: 05/04/23 10:41 Source: patient and EMS Mode of arrival: EMS Limitations: no limitations History of Present Illness HPI narrative: Patient with a long history of alcohol, and drug abuse with chronic edema and peripheral neuropathy presents with neurophathic pain and pain when he walks for months Onset (ago): month(s) Location: left, right and lower extremity Severity: moderate Related Data Home Medications Medication Instructions Recorded Confirmed aripiprazole 30 mg tablet (Abilify) 30 mg PO BEDTIME 08/29/21 09/11/21 buspirone 30 mg tablet 30 mg PO BID 08/29/21 09/11/21 divalproex 500 mg tablet,extended 2,500 mg PO BEDTIME 08/29/21 09/11/21 release 24 hr (Depakote ER) montelukast 10 mg tablet 10 mg PO BEDTIME 08/29/21 09/11/21 (Singulair) ondansetron 4 mg disintegrating 4 mg PO BID PRN Nausea 08/29/21 09/11/21 tablet pregabalin 200 mg capsule (Lyrica) 200 mg PO BID 08/29/21 09/11/21 Zinc Oxide (Triple Paste) [Triple 1 appl topical 8XD PRN Rash 08/30/21 09/11/21 Paste] bethanechol chloride 25 mg tablet 25 mg PO TID 09/11/21 09/11/21 diazepam 10 mg tablet (Valium) 10 mg PO TID PRN Anxiety 09/11/21 09/11/21 hydroxyzine HCl 50 mg tablet 1 tab PO Q8H PRN Asystole 09/11/21 09/11/21 ibuprofen 800 mg tablet 1 tab PO TID PRN Pain (Scale Score 09/11/21 09/11/21 1-3) methadone 10 mg/mL oral 20 mg PO DAILY 09/11/21 09/11/21 concentrate (Methadose) metoclopramide HCl 10 mg tablet 1 tab PO TID PRN nausea/vomiting 09/11/21 09/11/21 morphine 30 mg immediate release 1 tab PO Q4H PRN Pain (Scale Score 09/11/21 09/11/21 tablet 7-10) pantoprazole 40 mg tablet,delayed 1 tab PO BID@0630,1630 09/11/21 09/11/21 release promethazine 25 mg tablet 25 mg PO Q8H PRN Nausea And 09/11/21 09/11/21 Vomiting tizanidine 4 mg tablet 4 mg PO BID PRN Muscle Spasm 09/11/21 09/11/21 Previous Rx's Medication Instructions Recorded albuterol sulfate 90 mcg/actuation 1 puff inhalation RQ4H PRN asthma 08/30/21 aerosol inhaler (Ventolin HFA) #0 grams aluminum-magnesium hydroxide 200 30 ml PO Q6H PRN Heartburn/Nausea 08/30/21 mg-200 mg/5 mL oral suspension #0 mL (MAG-AL) amitriptyline 50 mg tablet 150 mg (3 x 50 mg) PO BEDTIME #0 08/30/21 tabs ascorbic acid (vitamin C) 250 mg 250 mg PO BID@0800,1700 #0 tabs 08/30/21 tablet calcium carbonate 500 mg calcium 500 mg PO BID #0 tabs 08/30/21 (1,250 mg) tablet (Oyster Shell Calcium 500) docusate sodium 100 mg capsule 100 mg PO DAILY #0 caps 08/30/21 ferrous sulfate 324 mg (65 mg 324 mg PO BIDWM #0 tabs 08/30/21 iron) tablet,delayed release furosemide 20 mg tablet 60 mg PO BID@0900,1800 #0 tabs 08/30/21 ipratropium 0.5 mg-albuterol 3 mg 3 ml inhalation RQ4H WHILE AWAKE 08/30/21 (2.5 mg base)/3 mL nebulization #0 mL soln loratadine 10 mg tablet 10 mg PO DAILY #0 tabs 08/30/21 magnesium hydroxide 400 mg/5 mL 30 ml PO DAILY PRN Constipation #0 08/30/21 oral suspension (Milk of Magnesia) mL clonidine HCl 0.3 mg tablet 0.3 mg PO TID #6 tabs 09/11/21 diazepam 10 mg tablet 10 mg PO TID PRN anxiety #6 tabs 09/11/21 pregabalin 200 mg capsule 200 mg PO BID #10 caps 09/11/21 Allergies Allergy/AdvReac Type Severity Reaction Status Date / Time fluoxetine [From Prozac] Allergy Anxiety Verified 05/04/23 09:44 haloperidol [From Haldol] Allergy Anxiety Verified 05/04/23 09:44 mirtazapine [From Remeron] Allergy Anxiety Verified 05/04/23 09:44 paroxetine [From Paxil] Allergy Anxiety Verified 05/04/23 09:44 sertraline [From Zoloft] Allergy Anxiety Verified 05/04/23 09:44 trazodone Allergy Anxiety Verified 05/04/23 09:44 Review of Systems 2 Review of Systems: Yes all other systems are reviewed and are negative Neurologic: Denies Sensory deficit (Neuro) [facility], [facility] Past Medical History Medical History Opioid use disorder Antisocial personality disorder Fluid overload Pneumonia Chronic venous stasis Bipolar 1 disorder Chronic venous stasis Bipolar 1 disorder Social History Social History Household Members: Unknown / Unable to assess Housing: Unknown / Unable to assess Unable to assess alcohol history related to: Unknown Alcohol intake: current Alcohol intake frequency: holidays/special occasions only Comment: sitter Patient Tobacco Use Status: Current everyday Tobacco user Smoked in Last 30 Days: Yes Second Hand Smoke Exposure: No (pt unresponsive) Use of substances other than those prescribed or required for medical reasons: Yes Substance Use Type: Marijuana Advance Directives: No Advance Directives Information Provided: Yes Current occupational status: disabled Sexual orientation: Did not discuss. Physical Exam ED Vital Signs: Vital Signs - 24 hr 05/04/23 09:44 Temperature 98 F Pulse Rate 89 Respiratory Rate 18 Blood Pressure 125/79 Pulse Oximetry 98 Oxygen Delivery Method Room Air BMI result Body Mass Index 39.3 Const Other: obese male with flat affect looking older than stated age Orientation/consciousness: oriented to person and patient oriented x3 Limitations: no limitations HENMT Head: Yes normal to inspection Ears: external ears normal General nose exam: Normal external nose present Mouth: Normal oral and palatal mucosa present and oropharynx normal Throat: Yes posterior oropharynx normal Eyes General: appearance normal, both eyes and all related structures Neck Neck: Yes normal visual inspection Chest Chest palpation & inspection: normal inspection of the chest Resp Auscultation: clear to auscultation bilaterally Cardio Jugular venous distension: no JVD Rate: regular rate Rhythm: regular rhythm Heart sounds: S1 normal heart sound present and S2 normal heart sound present GI Inspection: Yes normal to inspection Palpation (GI): Soft to palpation, nontender and No hepatosplenomegaly present Auscultation: normal bowel sounds General: Yes no CVA tenderness Back/Spine/Pelvis Back: no CVA tenderness Skin Other: chronic skin changes to lower extremitis Neuro General: oriented to person and patient oriented x3 Cranial nerves: Yes CN's II-XII intact bilaterally Motor exam (neuro): 5/5 motor strength present throughout Sensory Exam: No Sensory deficit (Neuro) Extrem Other: good bilateral pulses Psych Appearance: grossly normal Course Reevaluation(s) Reevaluation #1: Patient seen and cleared by physical therapy and case management for home therapy Time: 12:51 Medications Administered Discontinued Medications Generic Name Dose Route Start Last Admin Trade Name Freq PRN Reason Stop Dose Admin Gabapentin 300 mg 05/04/23 12:09 05/04/23 12:23 Gabapentin 300 Mg Capsule PO 05/04/23 12:10 300 mg ONCE ONE Administration Medical Decision Making Differential Diagnosis Differential Diagnoses: The differential diagnosis associated with the presentation includes (chronic edema and neurophathy, infection, DVT were all considered) Admission/Observation Consideration of admission/observation: Escalation of care including admission/observation considered (upon arrival admission was considered) Lab Data 05/04/23 11:20 05/04/23 11:20 Labs: Lab Results 05/04/23 Range/Units 11:20 WBC 4.7 L (4.8-10.8) X10*3/uL RBC 3.83 L (4.60-5.80) X10*6/uL Hgb 8.8 L D (14.0-18.0) g/dl Hct 29.5 L (42.0-52.0) % MCV 77.0 L (80.0-98.0) fL MCH 23.0 L (27.0-33.0) pg MCHC 29.8 L (31.0-36.0) g/dl RDW 15.0 (11.0-16.0) % Plt Count 239 (160-400) X10*3/uL MPV 9.5 (9.4-12.4) fL Immature Gran % (Auto) 0.4 (0.0-0.4) % Neut % (Auto) 63.7 (45-73) % Lymph % (Auto) 24.3 (20-40) % [place] % (Auto) 6.9 (2-11) % Eos % (Auto) 3.4 (0-4) % Baso % (Auto) 1.3 (0-2) % Lymph # (Auto) 1.1 L (1.2-4.9) X10*3/uL [place] # (Auto) 0.3 (0.1-1.2) X10*3/uL Eos # (Auto) 0.2 (0.0-0.4) X10*3/uL Baso # (Auto) 0.1 (0.0-0.2) X10*3/uL Abs Immat Gran (auto) 0.02 (0.00-0.03) X10*3/uL Absolute Neuts (auto) 3.0 (2.0-8.3) x10*3/uL Absolute Nucleated RBC 0.000 (0.0-0.012) X10*3/uL Nucleated RBC % (auto) 0.0 (0.0-0.2) /100WBC Sodium 138 (135-145) mmol/L Potassium 4.3 (3.3-5.1) mmol/L Chloride 100 (96-108) mmol/L Carbon Dioxide 28 (22-29) mmol/L Anion Gap 14 (12-20) BUN 15 (9-16) mg/dL Creatinine 0.77 (0.5-1.4) mg/dL Estim Creat Clear Calc 178.8 Estimated GFR > 60 Random Glucose 79 (60-115) mg/dL Calcium 9.1 D (8.4-10.2) mg/dL Independent Historian Clinical information obtained from an independent historian. History obtained from or confirmed by: EMS External Record Review External record reviewed: Prior outpatient labs and Prior outpatient radiology Tests considered The following testing was considered but not selected: US of both legs but patient with long history of chronic edema Chronic Conditions Patient?s care impacted by: Other (drug and alcohol abuse, neuropathy) Social Determinants Patient?s care significantly limited by Social Determinants of Health including: Inadequate housing, Low income and Alcoholism and drug addiction in family Discharge Plan Discharge Clinical Impression: Neuropathy Patient Disposition: Home, Self-Care Instructions: Peripheral Neuropathy (ED) Prescriptions: No Action Zinc Oxide (Triple Paste) [Triple Paste] 1 appl topical 8XD PRN (Reason: Rash) clonidine HCl 0.3 mg tablet 0.3 mg PO TID Qty: 6 0RF pregabalin 200 mg capsule 200 mg PO BID Qty: 10 0RF diazepam 10 mg tablet 10 mg PO TID PRN (Reason: anxiety) Qty: 6 0RF ibuprofen 800 mg tablet 1 tab PO TID PRN (Reason: Pain (Scale Score 1-3)) tizanidine 4 mg Tablet 4 mg PO BID PRN (Reason: Muscle Spasm) hydroxyzine HCl 50 mg tablet 1 tab PO Q8H PRN (Reason: Asystole) morphine 30 mg tablet 1 tab PO Q4H PRN (Reason: Pain (Scale Score 7-10)) pantoprazole 40 mg tablet,delayed release (DR/EC) 1 tab PO BID@0630,1630 bethanechol chloride 25 mg tablet 25 mg PO TID promethazine 25 mg tablet 25 mg PO Q8H PRN (Reason: Nausea And Vomiting) diazepam [Valium] 10 mg tablet 10 mg PO TID PRN (Reason: Anxiety) methadone [Methadose] 10 mg/mL concentrate 20 mg PO DAILY Rx Instructions: Partial Fill upon patient request. metoclopramide HCl 10 mg tablet 1 tab PO TID PRN (Reason: nausea/vomiting) montelukast [Singulair] 10 mg Tablet 10 mg PO BEDTIME buspirone 30 mg Tablet 30 mg PO BID divalproex [Depakote ER] 500 mg Tablet Extended Release 24 Hr 2,500 mg PO BEDTIME ondansetron 4 mg Tablet,Disintegrating 4 mg PO BID PRN (Reason: Nausea) aripiprazole [Abilify] 30 mg Tablet 30 mg PO BEDTIME pregabalin [Lyrica] 200 mg Capsule 200 mg PO BID albuterol sulfate [Ventolin HFA] 90 mcg/actuation Hfa Aerosol Inhaler 1 puff inhalation RQ4H PRN (Reason: asthma) Qty: 0 0RF loratadine 10 mg Tablet 10 mg PO DAILY Qty: 0 0RF ipratropium-albuterol 0.5 mg-3 mg(2.5 mg base)/3 mL Solution For Nebulization 3 ml inhalation RQ4H WHILE AWAKE Qty: 0 0RF amitriptyline 50 mg Tablet 150 mg PO BEDTIME Qty: 0 0RF ferrous sulfate 324 mg (65 mg iron) Tablet,Delayed Release (Dr/Ec) 324 mg PO BIDWM Qty: 0 0RF magnesium hydroxide [Milk of Magnesia] 400 mg/5 mL Suspension 30 ml PO DAILY PRN (Reason: Constipation) Qty: 0 0RF calcium carbonate [Oyster Shell Calcium 500] 500 mg calcium (1,250 mg) Tablet 500 mg PO BID Qty: 0 0RF docusate sodium 100 mg Capsule 100 mg PO DAILY Qty: 0 0RF furosemide 20 mg Tablet 60 mg PO BID@0900,1800 Qty: 0 0RF Protocol: Hold for SBP< HOLD for SBP < : 90 MAG-AL 200-200 mg/5 mL Suspension 30 ml PO Q6H PRN (Reason: Heartburn/Nausea) Qty: 0 0RF ascorbic acid (vitamin C) 250 mg Tablet 250 mg PO BID@0800,1700 Qty: 0 0RF Referrals: Physician,Unknown J [Primary Care Provider] - 5 days
--- OUTSIDE RECORDS SUMMARY | 2023-05-04 10:51 | XMS_ITS | Continuity of Care Document ---
Author Name Unknown Organization [facility] Address [address] [place] [address]- Care Team Providers Care Data Services Developer Name Role Phone Not on Staff, PCP Primary Care Physician Unavail able Encounter [facility] Date(s): 04/26/23 - 04/29/[address] [id number]- Discharge Disposition: A-D/C Home Attending Physician: Triston [...] acel(Tdap) 05/18/18 Recorded tetanus/diphtheria/pertussis, acel(Tdap) 12/19/16 Recorded [id number] 12y+ bivalent booster vax 02/11/22 Recorded SARS-CoV-2 [...] 0 Refills, Maintenance, 03/12/23 14:01:00 EST, Cream, [facility] ST[facility] #[id number], Apply to lower legs andfeet 2 times a day, avoiding open areas, 183, cm, 1... Start Date: 03/12/23 Status: Ordered bethanechol 25 mg oral tablet 25 mg, By Mouth, 4 times a day, # 120 tablet, Refills 0, Tot. Refills 0, Maintenance, 03/12/23 14:02:00 EST, Route to Pharmacy Electronically, [facility] #[id number], 183, cm, 03/12/23 5:13:00 EST, Height, 125.2, kg, 02/22/23 14:00:00 EST, Dry We... Start Date: 03/12/23 Status: Ordered buPROPion 300 mg/24 hours (XL) oral tablet, extended release 1 tablet = 300 mg, By Mouth, Daily, # 30 tablet, 0 Refills, Maintenance, 03/12/23 15:02:00 EST, XL Tablet, [facility] ST[facility] #[id number], 183, cm, 03/12/23 5:13:00 EST, Height, 125.2, kg, 02/22/23 14:00:00 EST, Dry Weight Start Date: 03/12/23 Status: Ordered busPIRone 30 mg oral tablet 1 tablet = 30 mg, By Mouth, 2 times a day, # 60 tablet, 0 Refills, Maintenance, 03/12/23 15:02:00 EST, Tablet, [facility] ST[facility] #[id number], 183, cm, 03/12/23 5:13:00 EST, Height, 125.2, [...] Refills, Maintenance, 03/12/23 13:59:00 EST, ER Tablet, [facility] ST[facility] #[id number], 183, cm, 03/12/23 5:13:00 EST, Height, 125.2, kg, 02/22/23 14:00:00 EST, Dry Weight Start Date: 03/12/23 Status: Ordered Depakote ER 500 mg oral tablet, extended release 3 tablet = 1,500 mg, By Mouth, Daily, total dose is 1750 QD, # 90 tablet, 0 Refills, Maintenance, 03/12/23 13:58:00 EST, ER Tablet, [facility] #[id number], 183, cm, 03/12/23 5:13:00 EST, Height,125.2, kg, [...] 03/26/23 9:50:00 EST, Route to Pharmacy Electronically, [facility] #[id number], Partial fill upon patient request if the prescription is for a schedule II opioi... Start Date: 03/26/23 Stop Date: 04/25/23 Status: Ordered furosemide 80 mg oral tablet 80 mg, 1, tablet, By Mouth, Daily, # 30 tablet, Refills 0, Tot. Refills 0, Maintenance, 04/25/23 14:19:00 EST, Route to Pharmacy Electronically, [facility] ST[facility] #[id number], Partial fill upon patientrequest if the prescription is for a schedule II op... Start Date: 04/25/23 Status: Ordered furosemide 80 mg oral tablet 80 mg, 1, tablet, By Mouth, 2 times a day, # 14 tablet, Refills 0, Tot. Refills 0, Maintenance, 04/02/23 13:37:00 EST, Route to Pharmacy Electronically, [facility] #[id number], Partial fill uponpatient request if the prescription is for a schedu... Start Date: 04/02/23 Stop Date: 04/09/23 Status: Ordered levothyroxine 75 mcg (0.075 mg) oral tablet = 75 mcg, By Mouth, Daily, # 30 tablet, 0 Refills, Maintenance, 03/12/23 14:00:00 EST, Tablet, [facility] #[id number], 183, cm, 03/12/23 5:13:00 EST, Height, 125.2, kg, 02/22/23 14:00:00 EST, Dry Weight Start Date: 03/12/23 Status: Ordered Methadone = 110 mg, By Mouth, Daily, 0 Refills, Maintenance, 03/26/23 9:50:00 EST, Tablet, Partial fill upon patient request if the prescription is for a schedule II opioid drug. Start Date: 03/26/23 Status: Ordered Methadone Tablet 125 mg, Tablet, By Mouth, 04/29/23 9:00:00 EST Start Date: 04/29/23 Stop Date: 04/29/23 Status: Completed naproxen 500 mg oral delayed release tablet 1 tablet = 500 mg, By Mouth, 2 times a day, for 30 days, # 60 tablet, 0 Refills, Acute 05/01/23 14:40:00 EST, 04/01/23 14:40:00 EST, EC Tablet, [facility] #[id number], Partial fill upon patient request if the [...] Refills, Maintenance, 03/14/23 9:00:00 EST, ER Tablet, [facility] ST[facility] #[id number], 183, cm, 03/13/23 7:38:00 EST, Height, 125.2, kg, 02/22/23 14:00:00 EST, Dry Weight Start Date: 03/14/23 Status: Ordered prazosin 5 mg oral capsule 5 mg, Capsule, By Mouth, 04/29/23 9:00:00 EST Start Date: 04/29/23 Stop Date: 04/29/23 Status: Completed prazosin 5 mg oral capsule 5 mg, 1, capsule, By Mouth, 2 times a day, # 60 capsule, Refills 0, Tot. Refills 0, Maintenance, 03/12/23 14:03:00 EST, Route to Pharmacy Electronically, [email or web address] #[id number], Partial fill upon patient request if the prescription is for a sched... Start Date: 03/12/23 Status: Ordered prazosin 5 mg oral capsule 5 mg, Capsule, By Mouth, Once, STAT, 04/28/23 22:11:00 EST, Stop date 04/28/23 22:11:00 EST Start Date: 04/28/23 Stop Date: 04/29/23 Status: Completed pregabalin 150 mg oral capsule 1 capsule = 150 mg, By Mouth, 2 times a day, # 180 capsule, 0 Refills, Maintenance, 01/27/23 10:33:00 EST, Capsule, [email or web address] #[id number], Partial fill upon patient request if the prescription is for a schedule II opioid drug., 183, cm, 01/27/23... Start Date: 01/27/23 Status: Ordered promethazine 25 mg oral tablet 0.5 each = 12.5 mg, By Mouth, Every 6 hours, PRN Nausea & Vomiting, # 20 tablet, 0 Refills, Maintenance, 03/12/23 19:26:00 EST, Tablet, [facility] #[id number], 183, cm, 03/12/23 5:13:00 EST,Height, 125.2, kg, 02/22/23 14:00:00 EST, Dry Weight Start Date: 03/12/23 Status: Ordered rivaroxaban 20 mg oral tablet = 20 mg, By Mouth, Daily at supper, # 30 tablet, 0 Refills, Maintenance, 04/01/23 15:05:00 EST, Tablet, [facility] #[id number], 183, cm, 03/12/23 5:13:00 EST, Height, 125.2, kg, 02/22/23 14:00:00 EST, Dry Weight Start Date: 04/01/23 Status: Ordered Senna 8.6 mg oral tablet 8.6 mg, 1, tablet, By Mouth, Daily at bedtime, # 30 tablet, Refills 0, Tot. Refills 0, Maintenance,03/12/23 15:04:00 EST, Route to Pharmacy Electronically, [facility] #[id number] Tablet, 183, cm, 03/12/23 5:13:00 EST, Height, 125.2, kg, 02/22/23... Start Date: 03/12/23 Status: Ordered SEROquel 25 mg oral tablet 50 mg, By Mouth, Every 8 hours, PRN, # 90 tablet, Refills 0, Tot. Refills 0, Maintenance, Anxiety, 03/12/23 14:05:00 EST, Route to Pharmacy Electronically, [facility] #[id number], 183, cm, 03/12/23 5:13:00 EST, Height, 125.2, kg, 02/22/23 14:00:0... Start Date: 03/12/23 Status: Ordered tamsulosin 0.4 mg oral capsule 0.4 mg, By Mouth, Daily, # 30 capsule, Refills 0, Tot. Refills 0, Maintenance, 03/12/23 15:06:00 EST, Route to Pharmacy Electronically, [facility] #[id number], 183, cm, 03/12/23 5:13:00 EST, Height, 125.2, kg, 02/22/23 14:00:00 EST, Dry Weight Start Date: 03/12/23 Status: Ordered tiZANidine 2 mg oral tablet 2 mg, 1, tablet, By Mouth, 3 times a day, PRN, # 30 tablet, Refills 0, Tot. Refills 0, Maintenance,Spasm, 03/12/23 19:27:00 EST, Route to Pharmacy Electronically, [facility] #[id number], ., 183, cm, 03/12/23 5:13:00 EST, Height, 125.2, kg, 02/22... Start Date: 03/12/23 Status: Ordered Tylenol with Codeine #3 Tablet (300mg/30mg) 2 tablet, Tablet, By Mouth, 04/29/23 6:00:00 EST, Stop date 04/29/23 6:00:00 EST Start Date: 04/29/23 Stop Date: 04/29/23 Status: Completed Problem List Condition Confirmation Course Effective Dates [...] to CAB a few times 04/28/2018: started [facility] bup/nal program Last Assessment & Plan: On suboxone 8-2mg bid. Per pt would like to change to methadone. Reports had been getting approx 4 mos ago. States still having cravings with suboxone- but denies any recent use. [facility] Clinical Trials Nurse and will work to connect him with [...] will need to connect with psych at [facility]- no current psych provider. Pt contracts for safety. Pt did come with rx avail- but sh ort on lorazepam. Will fill at this time but ensure has prescriber on d/c. BH met with pt todayand psych referral placed. Administration aware. Vital Signs Most recent to oldest [Reference Range]: 1 2 3 Height 183 cm (04/28/23 10:19 PM) 183 cm (04/28/23 8:33 PM) 183 cm (04/28/23 9:11 AM) Weight 127 kg (04/28/23 10:19 PM) 127 kg (04/28/23 8:33 PM) 127 kg (04/28/23 9:11 AM) Oxygen Saturation [94-100 %] 95 % (04/29/23 9:19 AM) 99 % (04/28/23 8:33 PM) 94 % (04/28/23 9:11 AM) Pulse Rate [55-90 bpm] 98 bpm *H* (04/28/23 10:19 PM) 92 bpm *H* (04/28/23 8:33 PM) 98 bpm *H* (04/28/23 9:11 AM) Body Mass Index [18.5-24.99 kg/m2] 37.92 kg/m2 *>HHI* (04/28/23 10:19 PM) 37.92 kg/m2 *>HHI* (04/28/23 8:33 PM) 37.92 kg/m2 *>HHI* (04/28/23 9:11 AM) Blood Pressure [90-138/55-84 mm Hg] 125/89mm Hg (04/29/23 9:19 AM) 134/87mm Hg (04/28/23 10:19 PM) 142/89mm Hg *H* (04/28/23 10:15 PM) Respiratory Rate [16-30 br/min] 12 br/min *L* (04/29/23 9:19 AM) 11 br/min *L* (04/29/23 9:15 AM) 17 br/min (04/29/23 5:13 AM) Temperature [96.8-100.4 DegF] 98.1 DegF (04/29/23 9:19 AM) 98.4 DegF (04/28/23 8:33 PM) 97.8 DegF (04/28/23 9:11 AM) Mode of Delivery (Oxygen) Room air (04/29/23 9:19 AM) Room air (04/28/23 8:33 PM) Room air (04/28/23 9:11 AM) Blood pressure sites Arm, left (04/28/23 10:19 PM) Arm, left (04/28/23 8:33 PM) Arm, left (04/28/23 9:11 AM) Temperature Route Oral (04/29/23 9:19 AM) Oral (04/28/23 8:33 PM) Oral (04/28/23 9:11 AM) Dry Weight 127 kg (04/28/23 10:19 PM) 127 kg (04/28/23 8:33 PM) 127 kg (04/28/23 9:11 AM) Dry Weight Obtained Via Patient/family s tated (04/26/23 5:45 AM) Social History Social History Type Response Tobacco Use: 4 or less cigar ettes(less than 1/4 pack)/day in last 30 days. Sex Implantable Device List Procedure Provider Procedure Date Device Type Site Repair Hernia Ventral Laparoscopic Gus Vivas MD 09/13/20 Unknown Abdomen Device Identifier Serial Number Lot or Batch Number Manufacturing Date Expiration Date Distinct Identification Code MRI Safety Implantable Status 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 [id number] Unknown [id number] Unknown 03/11/21 Unknown Unknown Active GS1 Note * Rani HENDERSON, Triston Ambrocio: PERFORM Event Display: Patient Education Leaflets Authored Date: [id number] Schizoaffective Disorder ?? [id number] Schizoaffective Disorder Schizoaffective disorder is a serious chronic mental health condition that has symptoms of schizophrenia (hallucinations or delusions) and symptoms of a mood disorder (mi and depression). Schizoaffective disorder is a rare condition. It's often incorrectly diagnosed at first as bipolar disorder. It can take time to tell the difference between schizoaffective disorder and schizophreniaand mood disorders. Schizoaffective disorder is life-long (chronic). Though it is important to realize that symptoms can lesson with time and treatment. It makes working and living in society difficult. Schizoaffective disorder is a psychotic disorder. Someone with schizoaffective disorder has thoughts and emotions that are a distortion of external reality. They perceive a unique reality from those around them. The difference between reality and what you think become blurred in your mind.??The cause of schizoaffective disorder is not yet known. It's believed to be a result of genetic and biological factors such as brain chemistry and structure. Symptoms of schizoaffective disorder??include: ??? Seeing or hearing things that are not there (hallucinations). Hearing (auditory) hallucinationsare most common. ??? False beliefs (delusions) ??? Disorganized thinking and speech ??? Severe anxiety ??? Feeling unreal ??? Paranoia ??? Insomnia ??? Trouble thinking or concentrating clearly ??? De pression, feeling suicidal ??? Withdrawal from those around you (social withdrawal) Depression is 1 type of mood disorder that is related to brain chemistry. It is common in people with schizoaffective disorder. You may feel a lack of interest in normal activities. Sometimes there is sadness or guilt without any clear reason. Thinking may become slow and there can be a lack energyor feeling of hopelessness. Some people have thoughts of harming themselves at this stage. Thoughtscan even turn to suicide. Bipolar disorder is the other major mood disorder. It's an illness that causes strong mood swings between depression and mi. In the manic phase you may think fast and do things quickly. It may seem like you are getting a lot done. At first, this may feel very good; but in the extreme this can lead to a lifestyle that is disorganized and chaotic. It can include risky behavior (spending sprees, sexual acting out, or drug use). In later stages, it may affect eating (no interest in food) and sleeping (unable to sleep for days at a time). Speech may speed up and become hard for others to understand. You may appear to others as if you are in your own world. It is possibly hereditary which means a person is more likely to get this illness if a family member has it. Use of drugs such as marijuana in certain people, amphetamines (speed) and cocaine increase the risk of getting this disorder. People with this illness will generally have to take medicines to treat it long-term. Home care ??? Ongoing care and support helps people manage this illness. Find a healthcare providerand therapist who meet your needs. Don't be discouraged if you have to visit a number of therapistsbefore you find one that works well with you. ??? Make sure to take your prescribed medicine as advised, even if you think you don???t need it. Don't change the dose or stop the medicine unless you talk with your provider. Don't share your medicines or use another person's medicines. ??? Talk to your provider if you have trouble paying for your medicine. Ask them to help you find resources to help with this. ??? Get the required lab work on schedule to check your overall health and make sure you are getting the right amount of medicine ??? Seek support from trusted friends or family by talking about your feelings and thoughts. Ask them to help you recognize behavior changes early so you canget help. If needed, your healthcare provider can adjust your medicines and stop serious problems from developing. ??? Tell each of your healthcare providers about all of the prescription medicines, rodh-dnf-gbahygx medicines, vitamins, and supplements you take. This includes your dentist.??Certainsupplements interact with medicines and can cause dangerous side effects.?? Ask your pharmacist about medicine interactions before taking a new medicine or supplement. ??? If you are having trouble managing workplace issues, or caring for yourself because of this illness, contact your local Americans with Disabilities (ADA) office to see if they can help. ??The U.[place]. Department of Justice operatesa toll-free ADA information line at 623-837-8713 (Voice) or 672-902-6516 (TTY). ??They can help youfind a local office. ??? Don't use alcohol, amphetamines, cocaine, or related street??drugs to manage symptoms. These will interact with your medicines and make your condition worse. If your symptomsaren't being controlled, go back to your provider. You may need the dose of your current medicine changed or a different medicine. ?? Follow-up care Follow up with your healthcare provider, or??as advised. ?? Call 988 Call or text 988 if you ??? Have thoughts of harming yourself or others. You will be connected to trained crisis counselors. ??? Have trouble breathing ??? Are very confused ??? Are very drowsy or have trouble awakening ???Faint or lose consciousness ??? Have a rapid heart rate, very low heart rate, or a new irregular heart rate ??? Have a seizure The 988 counselors will work closely with 911 to get you the care you need. ?? When to seek medical advice Call your healthcare provider right away if any of these occur: ??? Feeling like your symptoms are getting worse ??? Family or friends express concern over your behavior and ask you to seek help ??? Feeling out of control or that you are being controlled by others ??? Unmanageable side effects fromthe prescription medicines. Don't stop or change the way you take your medicines because of the side effects unless you talk with your provider. ??? Feeling like you want to harm yourself or another ??? Unable to care for yourself ??? Worsening hallucinations ??? Worsening delusions or paranoia ???Worsening depression or anxiety ?? Last Reviewed Date: 2022 ?? 7501-9827 [employer]. All rights reserved. This information is not intended as a substitute for professional medical care. Always follow your healthcare professional's instructions. ?? Patient Care team information Care Team Personnel Name: Konrad Gallegos RN Position: [facility] ED RN W/OE and Tasks Member Role: Primary Care Nurse Name: Anna Weaver RN Position: [facility] RN Member [...] Role: Primary Care Nurse Address: Address: [address] [place] [id number] [[email or web address]] Name: Sol Chanel RN Position: [facility] ED RN W/OE and Tasks Member Role: Primary Care Nurse Name: Brenda Cuba RN Position: [facility] HBO Wound Member Role: Primary Care Nurse Name: Kell Alonso RN Position: [facility] ED RN W/OE and Tasks Member Role: Primary Care Nurse Name: Belen Tesfaye RN Position: [facility] RN Member Role: Primary Care Nurse Name: Richa Clay LPN Position: [facility] RN Member Role: Primary Care Nurse Name: Aury Pandya RN Position: [facility] RN Member Role: Primary Care Nurse Name: Prisca eMng RN Position: [facility] RN Member Role: Primary Care Nurse Name: Екатерина Chacko RN Position: [facility] RN Member Role: Primary Care Nurse Name: Sadaf Tubbs RN Position: [facility] RN Member Role: Primary Care Nurse Name: Arjun Malagon RN Position: [facility] RN Member Role: Primary Care Nurse Name: Not on Staff, PCP Position: [facility] Physician (General Medicine) Member Role: PCP Name: Milo Leonard RN Position: [facility] RN Member Role: Primary Care Nurse Name: Anna Oconnor RN Position: [facility] Associate Member Role: Primary Care Nurse Name: Dalila Cerda RN Position: [facility] RN Member Role: Primary Care Nurse Name: Shamar Lynn RN Position: [facility] RN Member Role: Primary Care Nurse Name: Kip Gonzalez RN Position: [facility] RN Member Role: Primary Care Nurse Address: Address: [address] [place] [id number] [place] Name: April Acuña RN Position: [facility] RN Member Role: Primary Care Nurse Name: Li Esquivel RN Position: [facility] Associate Member Role: Primary Care Nurse Name: Tunde White MD Position: [facility] Physician - Behavioral Health Member Role: [employer] Consult[employer] Physician Address: Address: [address] [place] [id number] [place] Care Team Related Persons Name: FORREST TO Address: [address] [place] [address] Name: MÓNICA CREWS
--- OUTSIDE RECORDS SUMMARY | 2023-05-04 10:52 | XMS_ITS | Continuity of Care Document ---
Author Name Unknown Organization [facility] ter Address [address] [place] [id number] Care Team Providers Care Silicator Name Role Phone Not on Staff, PCP Primary Care Physician Unavail able Encounter [facility] Date(s): 02/07/23 - 02/09/[address] [address]- Encounter Diagnosis Chronic pain syndrome(Discharge Diagnosis) - 02/07/23 Discharge Disposition: A-D/C AMA Attending Physician: Delilah Pacheco MD Admitting Physician: Ivory Mendez MD Referring Physician: Not on Staff, Referring MD Allergies, Adverse Reactions, Alerts Substance Reaction Severity Status sertraline Fluoxetine Fluoxetine Active Zoloft Active Remeron Active traZODone Active OLANZapine Active ZyPREXA Active Immunizations Given and Recorded Vaccine Date Status Refusal Reason tetanus/diphtheria/pertussis, acel(Tdap) 04/09/22 Recorded tetanus/diphtheria/pertussis, acel(Tdap) 05/18/18 Recorded tetanus/diphtheria/pertussis, acel(Tdap) 12/19/16 Recorded [id number] 12y+ bivalent booster vax 02/11/22 Recorded SARS-CoV-2 [...] ALCOHOL Start Date: 12/24/22 Status: Ordered ARIPiprazole 30 mg oral tablet 1 tablet = 30 mg, By Mouth, Daily, 0 Refills, Maintenance, 01/27/23 10:26:00 EST, Partial fill uponpatient request if the prescription is for a schedule II opioid drug. Start Date: 01/27/23 Status: Ordered Bactrim DS 800 mg-160 mg oral tablet 1 tablet, By Mouth, 2 times a day, for 14 days, # 28 tablet, 0 Refills, Acute 02/23/23 15:23:00 EST, 02/09/23 15:23:00 EST, Tablet, [facility], Partial fill upon patient request if the prescription is for a schedule II opioid drug., 1 ta... Start Date: 02/09/23 Stop Date: 02/23/23 Status: Ordered buprenorphine-naloxone 8 mg-2 mg sublingual film 2 film, Sublingual, Daily, # 14 film, 1 Refills, Maintenance, 09/29/22 15:26:00 EDT, Film, [facility] #[id number], Partial fill upon patient request if the [...] opioid drug. Start Date: 01/27/23 Status: Ordered diclofenac sodium 75 mg oral delayed release tablet 1 tablet = 75 mg, By Mouth, 2 times a day, PRN Pain , Moderate, # 60 tablet, 1 Refills, Maintenance, 01/04/23 15:55:00 EDT, EC Tablet, [facility] #[id number], Partial fill upon patient request if the [...] 08/05/22 8:29:00 EDT, Route to Pharmacy Electronically, [facility], Partial fill upon patient r... Start [...] 0 Refills, Maintenance, 09/29/22 15:28:00 EDT, Tablet, [facility] #[id number], Partial fill upon patient request if the prescription is for a schedule II opioid drug., 182.88, cm, 09/29/22 14:33:00... Start Date: 09/29/22 Stop Date: 10/13/22 Status: Ordered furosemide 80 mg oral tablet 80 mg, 1, tablet, By Mouth, Daily, TAKE ONE TABLET BY MOUTH DAILY, # 14 tablet, Refills 1, Tot. Refills 1, Maintenance, 08/05/22 8:30:00 EDT, Route to Pharmacy Electronically, [facility], Partial fill upon patient request if the prescrip... Start Date: 08/05/22 Stop Date: 09/02/22 Status: Ordered HYDROmorphone Inj 0.5 mg, Injection, IV Push Slowly, Every 3 hours, PRN for Pain , Severe, Routine, 02/07/23 9:11:00 EST Start Date: 02/07/23 Stop Date: 02/10/23 Status: Discontinued hydrOXYzine pamoate 50 mg oral capsule 1 capsule = 50 mg, By Mouth, 3 times a day, PRN Anxiety, # 90 capsule, 0 Refills, Maintenance, 01/27/23 10:23:00 EST, Capsule, Partial fill upon patient request if the prescription is for a schedule II opioid drug. Start Date: 01/27/23 Status: Ordered levothyroxine 0.05 mg oral tablet 1 tablet = 50 mcg, By Mouth, Daily, TAKE ONE TABLET BY MOUTH DAILY, # 14 tablet, 1 Refills, Maintenance, 08/05/22 8:30:00 EDT, Tablet, [facility], Partial fill upon patient request if the prescription is for a schedule II opioid drug., 1... Start Date: 08/05/22 Stop Date: 09/02/22 Status: Ordered montelukast 10 mg oral tablet [...] oral capsule 5 mg, Capsule, By Mouth, Hold for: Hold for BP < 90 / 60, 02/09/23 9:00:00 EST Start Date: 02/09/23 Stop Date: 02/09/23 Status: Completed prazosin 5 mg oral capsule 5 mg, 1, capsule, By Mouth, 3 times a day, Refills 0, Maintenance, 01/27/23 10:22:00 EST, Partial fill upon patient request if the prescription is for a schedule II opioid drug. Start Date: 01/27/23 Status: Ordered predniSONE 20 mg oral tablet 3 tablet = 60 mg, By Mouth, Daily, # 6 tablet, 0 Refills, Acute 02/11/23 15:00:00 EST, 02/09/23 15:06:00 EST, Tablet, [facility], Partial fill upon patient request if the prescription is for a schedule II opioid drug., 183, cm, 02/06/23... Start Date: 02/09/23 Stop Date: 02/11/23 Status: Ordered pregabalin 150 mg oral capsule 1 capsule = 150 mg, By Mouth, 2 times a day, # 180 capsule, 0 Refills, Maintenance, 01/27/23 10:33:00 EST, Capsule, [facility] #[id number], Partial fill upon patient request if the [...] Replace Required Details, Route to Pharmacy Electronically, [facility]... Start Date: 12/11/22 Status: Ordered Problem [...] disorder Confirmed Active Hypothyroidism Confirmed 06/24/22 Active Mi Confirmed 01/22/21 Active Normocytic normochromic anemia 1 [...] suboxone- but denies any recent use. 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 Denies any SI/HI at this time but very anxious about medications. DW pt no dose adjustments at this time and will need to connect with psych at [facility]- no current psych provider. Pt contracts for safety. Pt did come with rx avail- but sh ort on lorazepam. Will fill at this time but ensure has prescriber on d/c. BH met with pt todayand psych referral placed. Administration aware. Diagnosis Diagnosis Type Effective Dates Health Status Cl inical Service Informant Chronic pain syndrome Discharge Diagnosis 02/07/23 Non-Specified Results Orders for Microbiology Reports Name Date Blood Culture 02/08/23 Blood Culture 02/07/23 Microbiology Reports TEST:Blood Culture STATUS:Unauthenticated BODY SITE: SOURCE:Blood COLLECTED DATE/TIME:02/08/23 5:35 AM Blood Culture SPECIMEN DESCRIPTION : BLOOD NO SITE SPECIAL REQUESTS : NONE CULTURE : NO GROWTH AFTER 24 HOURS REPORT STATUS : PRELIMINARY REPORT TEST:Blood Culture STATUS:Unauthenticated BODY SITE: SOURCE:Blood COLLECTED DATE/TIME:02/07/23 1:17 PM Blood Culture SPECIMEN DESCRIPTION : BLOOD NO SITE SPECIAL REQUESTS : NONE CULTURE : NO GROWTH AFTER 48 HOURS REPORT STATUS : PRELIMINARY REPORT Vital Signs Most recent to oldest [Reference Range]: 1 2 3 Weight 114.8 kg (02/09/23 7:05 AM) Oxygen Saturation [94-100 %] 95 % (02/08/23 4:13 PM) 96 % (02/08/23 11:31 AM) 95 % (02/08/23 5:52 AM) Pulse Rate [55-90 bpm] 70 bpm (02/09/23 7:05 AM) 79 bpm (02/08/23 10:28 PM) 63 bpm (02/08/23 4:13 PM) Blood Pressure [90-138/55-84 mm Hg] 115/77mm Hg (02/09/23 9:40 AM) 118/80mm Hg (02/09/23 7:05 AM) 126/73mm Hg (02/08/23 10:28 PM) Respiratory Rate [16-30 br/min] 18 br/min (02/09/23 1:49 PM) 20 br/min (02/09/23 9:43 AM) 20 br/min (02/09/23 7:05 AM) Temperature [96.8-100.4 DegF] 98.1 DegF (02/09/23 7:05 AM) 98.4 DegF (02/08/23 10:28 PM) 98.1 DegF (02/08/23 4:13 PM) Liters per Minute 3 L/min (02/08/23 11:31 AM) 4 L/min (02/07/23 4:00 PM) 4 L/min (02/07/23 3:00 PM) Mode of Delivery (Oxygen) Room air (02/09/23 7:05 AM) Room air (02/08/23 10:28 PM) Nasal cannula (02/08/23 4:13 PM) Blood pressure sites Arm, left (02/09/23 7:05 AM) Arm, left (02/08/23 10:28 PM) Arm, right (02/08/23 4:13 PM) Temperature Route Oral (02/09/23 7:05 AM) Oral (02/08/23 10:28 PM) Oral (02/08/23 4:13 PM) Dry Weight 114.8 kg (02/09/23 7:05 AM) Weight Obtained Via Bed scale (02/09/23 7:05 AM) Dry Weight Obtained Via Bed scale (02/09/23 7:05 AM) Social History Social History Type Response Smoking Status 10 or more cigarette s (1/2 pack or more)/day in last 30 days entered on: 06/10/21 Sex Male Implantable Device List Procedure Provider Procedure Date Device Type Site Repair Hernia Ventral Laparoscopic Gus Vivas MD 09/13/20 Unknown Abdomen Device Identifier Serial Number Lot or Batch Number Manufacturing Date Expiration Date Distinct Identification Code MRI Safety Implantable Status 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 [id number] Unknown [id number] 2 Unknown 03/11/21 Unknown Unknown Active GS1 History and physical note * Mari HENDERSON, Nikolas Velazquez: PERFORM Event Display: History and Physical Hospital Authored Date: [id number] Patient: ??LAURI TO ? Age:??42 Years?Sex:??Male?:??1980?? Chief Complaint/Reason for Consultation Transfer from [facility] respiratory failure due to multifocal pneumonia, MRSA bacteremia. History of Present Illness This is a 42-year-old man with significant history of schizophrenia, bipolar disorder, Chronic Lymphedema, Destructive Behavior chronic pain syndrome, asthma, home dependence on Suboxone, obesity whowas admitted to due to respiratory failure.?? Patient found to have of aspiration pneumonia and poss ible acute lung injury due to vaping.?? Was found to have MRSA bacteremia and tested also positive for MRSA nasal swab patient was evaluated by infectious disease and getting empiric antibiotic therapy with vancomycin, Zosyn and azithromycin. He was transferred to this institution for pulmonology evaluation as well as possible endocarditis needing an echocardiogram. Patient unable to provide any details a as his speech is garbled, soft-spoken and falls asleep quickly. Most of the information obtained by reviewing previous records/discharge summary. Prior to his discharge from the hospital, he was evaluated due to slurred speech, somnolence and right-sided weakness.?? As per note, there was suspicious for CVA patient was transferred resuscitation via EMS. He remains somnolent, soft-spoken and unable to provide details. He wakes up upon verbal and painful stimuli and follows simple commands for?? a short period time before falling back asleep. Review of Systems Unable to obtain. Objective ? Vital Signs?? Temperature: 97.6 DegF (02/07/23 04:00:00) Temperature Route: Temporal (02/07/23 04:00:00) Pulse Rate: 56 bpm (02/07/23 04:00:00) Heart Rate Monitored: 56 bpm (02/07/23 03:00:00) Respiratory Rate: 21 br/min (02/07/23 04:00:00) Vented: No (02/07/23 03:00:00) Systolic Blood Pressure: 125 mm Hg (02/07/23 04:00:00) Diastolic Blood Pressure: 80 mm Hg (02/07/23 04:00:00) Blood pressure sites: Arm, right (02/07/23 00:00:00) Mean Arterial Pressure: 96 mm Hg (02/06/23 19:48:00) Pulse Pressure: 45 mm Hg (02/07/23 04:00:00) Oxygen Saturation: 94 % (02/07/23 04:00:00) Liters per Minute: 5 L/min (02/07/23 00:00:00) Mode of Delivery (Oxygen): Nasal cannula (02/07/23 04:00:00) FiO2: 36 % (02/06/23 22:58:00) Early Warning Score: 6 (02/07/23 04:09:34) ? Physical Exam Constitutional??somnolent, wakes up??upon light touch??and verbal stimuli Mental Status: Oriented to person??and place.?? Patient with??very soft speech, difficult to understand. Head: Normocephalic. Eyes: Pupils are equal, round and reactive to light. Extraocular muscles intact. Ear, Nose and Throat: Oropharynx clear, mucous membranes moist. Ears and nose without masses, lesions or deformities. Trachea midline. Neck: Prominent facial hair, supple, Full range of motion. Respiratory: Creased breath sounds diffusely??with crackles??from the bases up to??upper lobes.?? No wheezes or rhonchi appreciated. Cardiovascular: S1 S2 regular. No murmurs, rubs or gallops. Gastrointestinal: Obese, abdomen soft, non-tender, non-distended. Normal bowel sounds. No pulsatilemass. No hepatosplenomegaly. Genitourinary: No costovertebral angle tenderness.? Neurologic: Somnolent,??wakes up to??verbal stimuli??and light touch but falls back asleep quickly.?? His speech is garbled and soft-spoken. ??He follows simple commands??appropriately. ??He is right-handed. ??He has diffuse??weakness on all 4 extremities??with a strength of 4 out of 5. Skin:??Chronic hyperpigmentation??of the skin of both lower extremities.+2 lower extremity edema. Musculoskeletal: No cyanosis or clubbing. No gross deformities. Normal range of motion. Heme/Lymphatics/Immun: Palpation of neck reveals no swelling or tenderness of neck nodes. Palpationof groin reveals no swelling or tenderness of groin nodes. Assessment/Plan Diagnoses Asthma ??(J45.909) Bacteremia ??(R78.81) Chronic pain syndrome ??(G89.4) Congestive heart failure ??(I50.9) Metabolic encephalopathy ??(G93.41) Multifocal pneumonia ??(J18.9) Respiratory failure with hypoxia ??(J96.91) Schizophrenia ??(F20.9) ?? Assessment:??This is a 42-year-old man who??has been transferred from [facility]??to this institution??for??management of acute hypoxic respiratory failure in the setting of multifocal pneumonia??and??acute congestive heart failure Patient??with MRSA bacteremia??raising suspicion??for??subacute bacterial endocarditis. Patient??poorly responsive, remains somnolent??with some garbled speech??but no??other focal deficits. Differential diagnosis:??acute??metabolic encephalopathy??versus??embolic CVA. ?? Respiratory failure with hypoxia (J96.91):??He is admitted to [facility]. O2 supplementation via nasal cannula to keep an saturation??between 92 and 96%.??Incentive spirometry every 2 hours while awake. Respiratory physiotherapy with??percussion/therapeutic bed??times a day. Continue albuterol nebulization treatments??every 4 hours??as needed??for shortness of breath/wheezing. Patient with very decreased breath sounds diffusely. ?? Multifocal pneumonia (J18.9):??O2 supplementation nebulization treatments as mentioned above. Continue empiric antibiotic therapy with vancomycin 1.5 g IV every 12 hours,?Zosyn??3.375 g IV every??8 hours??azithromycin 500 mg IV daily. Monitor cultures. Patient tested negative for Legionella??and strep pneumonia??antigen and urine. He will remain on contact precautions. Patient tested positive for swab MRSA. Check for HIV. Patient with history of??vaping cannabis,??acute lung injury due to vaping could be??a contributingfactor to his acute respiratory hypoxemic respiratory??failure. Infectious disease consult in the morning ? Asthma (J45.909):??Continue O2 supplementation, nebulization treatments??as mentioned above. Solu-Medrol??40 mg IV every 8 hours. Singulair 10 mg p.o. once a day. ? Congestive heart failure (I50.9):??Patient with significant lower extremity swelling and elevated BNP We will check an echocardiogram to rule out possibility of??valvulopathy/vegetation??causing worsening??congestive heart failure on the patient with chronic lymphedema. Continue diuresis with Lasix??60 mg IV every 12 hours. Monitor I's and O's and daily weight. ?? Metabolic encephalopathy (G93.41):??Patient with acute worsening of mental status.??Apparently, he received some sedatives prior to his??transfer to this institution. Will continue to monitor mental status closely. Differential diagnosis acute metabolic encephalopathy in the setting of??infection??versus embolic CVA. I will hold benzodiazepines and??opiates for now. N.p.o. except for medications. Bed swallow evaluation. I will order an MRI of the brain without contrast for further evaluation. ?? Schizophrenia (F20.9):??Psychiatric consult in the morning. I will restart??some of his??psychiatric medications. ?? Chronic pain syndrome (G89.4):??Holding Suboxone for now. Continue Lyrica??150 mg p.o. twice a day ?? VTE Prophylaxis:??Lovenox 40 mg subcu once a day. ?VTE Prophylaxis Assessment:??VTE Prophylaxis Ordered ?? Code Status:??He is a full code. ?Order Code Status:??Code Status Ordered ?? I spent a total of 75 minutes today reviewing the chart/medical records, speaking with the patient,formulating and discussing the treatment plan, and documenting the findings and encounter. Discharge Planning:? Histories Allergies Allergies ?(Active and Proposed Allergies [...] PAIN, DO NOT DRIVE OR DRINK ALCOHOL Aripiprazole (ARIPiprazole 30 mg oral tablet)?1?tab(s)?30?Milligram?By Mouth?Daily Buprenorphine-Naloxone (buprenorphine-naloxone 8 mg-2 mg sublingual film)?2?Film?Sublingual?Daily?for 7?Days BuPROpion (buPROPion 300 mg/24 hours (XL) oral tablet, extended release)?1?tab(s)?300?Milligram?By Mouth?Daily BusPIRone (busPIRone 30 mg oral tablet)?1?tab(s)?30?Milligram?By Mouth?2 times a day Diclofenac (diclofenac sodium 75 mg oral delayed release tablet)?1?tab(s)?75?Milligram?By Mouth?2 times a day?as needed?Pain , Moderate Diclofenac (diclofenac sodium 75 mg oral delayed release tablet)?1?tab(s)?75?Milligram?By Mouth?2 times a day Divalproex Sodium (divalproex sodium 500 mg oral enteric coated tablet)?1?tab(s)?500?Milligram?By Mouth?3 times a day Docusate (docusate sodium 100 mg oral capsule)?100?Milligram?1?capsule?By Mouth?2times a day?TAKE ONE CAPSULE BY MOUTH TWO TIMES DAILY Docusate (docusate sodium 100 mg oral capsule)?100?Milligram?1?capsule?By Mouth?2times a day Escitalopram (escitalopram 20 mg oral tablet)?1?tab(s)?20?Milligram?By Mouth?Daily?for [...] Mouth?Daily Prazosin (prazosin 5 mg oral capsule)?5?Milligram?1?capsule?By Mouth?3 times a day Pregabalin (pregabalin 150 mg oral capsule)?1?capsule?150?Milligram?By Mouth?2 times a day Senna (Senna 8.6 mg oral tablet)?8.6?Milligram?1?tab(s)?By Mouth?Daily at bedtime Tizanidine (tiZANidine 4 mg oral tablet)?See Instructions?as needed?TAKE 1 TABLET BY MOUTHTHREE TIMES DAILY FOR 5 DAYS?Spasm ? Results Recent Labs BLOOD COUNT & DIFF WBC 10.9 k/mm3 ()?? 02/06/2023 16:51 RBC 3.26 m/mm3 (Low)?? 02/06/2023 16:51 Hgb 8.8 Gm/dL (Low)?? 02/06/2023 16:51 Hct 27.5 % (Low)?? 02/06/2023 16:51 MCV 84.4 femtoliters ()?? 02/06/2023 16:51 MCH 27.0 pg ()?? 02/06/2023 16:51 MCHC 32.0 g/dL (Low)?? 02/06/2023 16:51 Platelet Count 213 k/mm3 ()?? 02/06/2023 16:51 RDW-SD 51.0 femtoliters (High)?? 02/06/2023 16:51 MPV 10.6 femtoliters ()?? 02/06/2023 16:51 Nucleated RBC (Automated) 0.4 #/100 WBC'S ()?? 02/06/2023 16:51 Abs. NRBC 0.0 k/mm3 ()?? 02/06/2023 16:51 Abs. Neut 8.9 k/mm3 (High)?? 02/06/2023 16:51 Abs. Lymph 0.9 k/mm3 ()?? 02/06/2023 16:51 Abs. [place] 0.5 k/mm3 ()?? 02/06/2023 16:51 Abs. Eo 0.1 k/mm3 ()?? 02/06/2023 16:51 Abs. Baso 0.0 k/mm3 ()?? 02/06/2023 16:51 Neut % 82.1 % (High)?? 02/06/2023 16:51 Lymph % 8.5 % (Low)?? 02/06/2023 16:51 [place] % 4.5 % ()?? 02/06/2023 16:51 Eos % 0.6 % ()?? 02/06/2023 16:51 Baso % 0.3 % ()?? 02/06/2023 16:51 Imm Gran 4.0 % ()?? 02/06/2023 16:51 Abs. Imm Gran 0.4 k/mm3 ()?? 02/06/2023 16:51 ?? BLOOD GAS pH 7.42 ()?? 02/06/2023 22:50 pCO2 55 mm Hg (High)?? 02/06/2023 22:50 pO2 82 mm Hg ()?? 02/06/2023 22:50 Bicarbonate, Estimated 36 mmol/L (High)?? 02/06/2023 22:50 Specimen Type - Blood Gas ARTERIAL ()?? 02/06/2023 22:50 Percent O2 (FIO2) 36 ()?? 02/06/2023 22:50 ?? CARDIAC Nt-Probnp 1471 pg/mL (High)?? 02/06/2023 16:51 ?? CHEM GENERAL Sodium 138 mmol/L ()?? 02/06/2023 16:51 Potassium 4.7 mmol/L ()?? 02/06/2023 16:51 Chloride 101 mmol/L ()?? 02/06/2023 16:51 Bicarbonate Level 29 mmol/L ()?? 02/06/2023 16:51 Anion Gap 8 ()?? 02/06/2023 16:51 Glucose Level 178 mg/dL (High)?? 02/06/2023 16:51 Glucose, POC 156 mg/dL (High)?? 02/07/2023 00:01 BUN 14 mg/dL ()?? 02/06/2023 16:51 Creatinine-Blood 0.7 mg/dL ()?? 02/06/2023 16:51 Estimated GFR Creatinine 119 ML/MIN/1.73 M2 ()?? 02/06/2023 16:51 Calcium 9.0 mg/dL ()?? 02/06/2023 16:51 Protein, Total 6.5 Gm/dL ()?? 02/06/2023 16:51 Albumin 3.3 Gm/dL (Low)?? 02/06/2023 16:51 AG Ratio 1.0 ()?? 02/06/2023 16:51 Alkaline Phosphatase 200 units/L (High)?? 02/06/2023 16:51 AST (SGOT) 39 units/L ()?? 02/06/2023 16:51 ALT (SGPT) 49 units/L (High)?? 02/06/2023 16:51 Bilirubin, Total 0.2 mg/dL ()?? 02/06/2023 16:51 ?? HEME OTHER Hold Lavender Top SPECIMEN DISCARDED AFTER 24 HOURS. ()?? 02/06/2023 07:50 ?? MISC. CHEMISTRY Hold Gel Top SPECIMEN DISCARDED AFTER 1 WEEK ()?? 02/06/2023 16:51 Hold Fernando Top SPECIMEN DISCARDED AFTER 1 WEEK ()?? 02/06/2023 16:51 ?? URINE OTHER Est Creatinine Clearance 154.18 mL/min ()?? 02/06/2023 17:20 ? Imaging(s) ?CT Chest W/ Contrast ?? 02/05/2023 06:05??by Deepthi HENDERSON, Felicitas ?IMPRESSION: ?? Diffuse bilateral airspace and groundglass opacities, including areas of consolidation with air bronchograms. Consider infection such as COVID 19 pneumonia. Pulmonary hemorrhage or asymmetric pneumonia is not excluded but is considered less likely based ondistribution and incomplete subpleural sparing. No pleural effusions. ?? Mildly enlarged mediastinal and hilar lymph nodes, markedly increased in number. These can be reactive. ?Chest 2 Views Frontal and Lat ?? 02/05/2023 03:51??by Linda HENDERSON, [facility] O ?IMPRESSION: 1. Extensive bilateral patchy bilateral airspace disease. Differential considerations include pulmonary edema versus an infectious, inflammatory or neoplastic etiology. 2. Mild prominence of the cardiomediastinal silhouette. ?Chest Portable ?? 02/06/2023 16:21??by Octavia HENDERSON, Gonzales S ?IMPRESSION: ?? Stable patchy density both lungs. The appearance suggests pulmonary edema versus pneumonia. ? Consults(s) ?Consultation Note ?? 02/06/2023 23:03??by Serene HENDERSON, Veda Kendrick ?Impression and Plan Impression: _ ?? Aspiration pneumonia MRSA main component but may have other organisms or atypical. ?? He is quite tachypneic. ?? Schizophrenic with violent tendencies ? Recommendations: ?? Vancomycin,Zosyn and atypical azithromycin, narrow down future. ?? Would encourage Pulmonary evaluation especially with reported asthma ?? Check for immune deficieny such as HIV ?? Check echo evaluate endocarditis with MRSA bacteremia. ? Cardiology * Event Display: Cardiac Rhythm Strips Authored Date: Hospital Progress note * Junior HENDERSON, Delilah: PERFORM Event Display: Progress Note Hospital Authored Date: Patient: ??LAURI TO ? Age:??42 Years?Sex:??Male?:??1980?? Subjective Attending addendum, please see DC summary to follow. Mr. To??stated he wished to leave AMA. I originally saw him with the team in the late morning. He was frustrated by his psychiatric medication regimen and felt his anxiety was not well controlled. He also stated his mother wished for him to be home to care for her. We discussed with Mr. To our concerns from??AMA discharge given his MRSA bacteremia. We discussed the risks of the MRSA bacteremia and that the??work up with echocardiogram to look for IE and also MRI brain given previous team's concern for septic emboli are still pending. Charo discussed that we will work to improve his anxiety control. He did understand the risks of an untreated MRSA bacteremia and at this point IV antiibiotics??were standard of care. He did agree to stay the afternoon with better anxiety control with IV ativan and the medical team would work towards a patient directed AMA discharge by speaking with ID for possible antibiotic regimens and trying to get ECHO done. ID was re- consulted and echo department contacted. Psychiatry was also asked to re-e valuate the patient for better control of his anxiety and other psychiatric concerns.? Early afternoon after my initial evaluation of Mr. To I was contacted by Halima Mcclain from patient relations. She had been contacted by Mr. To's mother who was very concerned for his care. Halima asked for the medical team to contact the patient's mother. Dr. Mccormack did ask Mr. To if we could call and update his mother and patient declined this request and did not want the team to contact his mother.? Mid afternoon prior to 3pm the nursing staff contacted the team that the patient was leaving AMA and had an uber ride home. Dr. Mccormack and I went to evaluate the patient. He was alert and oriented X3. Once again we discussed the risks of him leaving AMA which included worsening infection, spread ofinfection to other organs, sepsis, and . He understood the risks and could verbalize the risks. His response was consistent with conversation he had with Dr. Alfaro, please see her note in [facility]. Dr. Alfaro also confirmed she felt the patient had the ability to leave AM. The patient declined to stay and was leaving immediately for his uber ride, he was agreeable to stop at [facility] pharmacy to get two prescriptions. He was given 2 days of prednisone to complete 5 day course. After my brief discussion with ID the patient was give a script for bactrim to??take for 14 days in the??setting that his??MRSA bacteremia may have been caused by post viral pneumonia.? The patient reported he did not have a PCP given he was recently removed from the practice given yelling on the phone. I instructed the patient to seek medical attention immediately if he was not feeling well and that his MRSA infection was not fully worked up and not being managed??per standard ofcare with oral antibiotics prior to full work-up and re-evaluation by ID. He understood and signed out AMA.? Review of Systems Objective Vital Signs?? Temperature: 98.1 DegF (02/09/23 07:05:00) Temperature Route: Oral (02/09/23 07:05:00) Pulse Rate: 70 bpm (02/09/23 07:05:00) Respiratory Rate: 18 br/min (02/09/23 13:49:00) Systolic Blood Pressure: 115 mm Hg (02/09/23 09:40:00) Diastolic Blood Pressure: 77 mm Hg (02/09/23 09:40:00) Blood pressure sites: Arm, left (02/09/23 07:05:00) Mean Arterial Pressure: 93 mm Hg (02/09/23 07:05:00) Pulse Pressure: 38 mm Hg (02/09/23 07:05:00) Mode of Delivery (Oxygen): Room air (02/09/23 07:05:00) Early Warning Score: 0 (02/09/23 15:30:06) ? Physical Exam Assessment/Plan Diagnoses Acute hypoxemic respiratory failure ??(J96.01) Bacteremia ??(R78.81) Chronic pain syndrome ??(G89.4) Congestive heart failure ??(I50.9) Multifocal pneumonia ??(J18.9) Sepsis with acute hypoxic respiratory failure ??(A41.9) 1. ??MRSA bacteremia ??(R78.81) 2. ??Respiratory failure with hypoxia ??(J96.91) 3. ??Bacterial pneumonia ??(J15.9) 4. ??Asthma ??(J45.909) 5. ??Metabolic encephalopathy ??(G93.41) 6. ??Schizophrenia ??(F20.9) 7. ??Anxiety disorder ??(F41.9) 8. ??Severe obesity (BMI 35.0-39.9) with comorbidity ??(E66.01) 9. ??Schizoaffective disorder, bipolar type ??(F25.0) 10. ??Opioid dependence ??(F11.29) ?? Discharge Planning:? * Leigha Alfaro MD: PERFORM Event Display: Progress Note Hospital Authored Date: Patient: ??LAURI TO ? Age:??42 Years?Sex:??Male?:??1980?? Subjective ?? Pt resting in bed this afternoon. Reports a variety of frustrations including chronic medical challenges that he feels providers have never been able to help him with. Pt reports he finds pain medications mostly ineffective and also endorses despite various psychiatric medication trials he finds himself anxious often. Pt does have a psychiatric provider who he follows with regularly . Reports lives with mother who he helps. Pt feels safe leaving the hospital, aware of his current medical concerns and risk but does not want to stay here longer. Pt endorses when he feels unwell he always comes to the hospital. ?? Review of Systems 10 point review of systems negative except Pertinent positives as above noted.?? Objective Vital Signs?? Temperature: 98.1 DegF (02/09/23 07:05:00) Temperature Route: Oral (02/09/23 07:05:00) Pulse Rate: 70 bpm (02/09/23 07:05:00) Respiratory Rate: 18 br/min (02/09/23 13:49:00) Systolic Blood Pressure: 115 mm Hg (02/09/23 09:40:00) Diastolic Blood Pressure: 77 mm Hg (02/09/23 09:40:00) Blood pressure sites: Arm, left (02/09/23 07:05:00) Mean Arterial Pressure: 93 mm Hg (02/09/23 07:05:00) Pulse Pressure: 38 mm Hg (02/09/23 07:05:00) Oxygen Saturation: 95 % (02/08/23 16:13:00) Mode of Delivery (Oxygen): Room air (02/09/23 07:05:00) Early Warning Score: 2 (02/09/23 13:53:14) ? Physical Exam ?? Mental Status Exam: Appearance:??disheveled in bed ? Attitude: cooperative. ? Motor activity: calm. ? Mood: I am ready to leave now Affect: appropriate. ? Speech: fluent, unimpaired. ? Perception: no impairment. ? Orientation: intact. ? Memory: intact. ? Judgment: intact. ? Insight: intact. ? Thought process: goal-directed. ? Reliability: Fair. Suicidality/self-destructive behavior: none. ? Homicidality/violence: none. ?? _ Inpatient Medications Medications (26) Active SCHEDULED: (14) Ampicillin/Sulbactam 3 Gm Inj (Ampicillin/Sulbactam IVPB) ??3 Gm, IVPB, Every 6 hours BuPROPion XL 300 mg Tablet (BuPROpion XL Tablet) ??300 mg, By Mouth, Daily in AM Divalproex 500 mg Tablet (Depakote Tablet) ??500 mg, By Mouth, 3 times a day Docusate Sodium 100 mg Capsule (docusate sodium 100 mg oral capsule) ??100 mg 1 capsule, By Mouth, 2 times a day Enoxaparin 40 mg Inj (Enoxaparin Inj) ??40 mg 0.4 mL, Subcutaneous Injection, Daily Levothyroxine 25 mcg Tablet (levothyroxine 0.025 mg oral tablet) ??50 mcg, By Mouth, Daily before breakfast MethylPREDNISolone Sodium Succinate 40 mg Inj (SoluMedrol Inj) ??40 mg, IV Push Slowly, Every 8 hours Montelukast 10 mg Tablet (montelukast 10 mg oral tablet) ??10 mg, By Mouth, Daily at bedtime NaCl 0.9% Flush 3ml (NaCL 0.9% Flush) ??3 mL, IV Push, Every 8 hours Pantoprazole 20 mg EC Tablet (pantoprazole 20 mg oral delayed release tablet) ??20 mg, By Mouth, Daily Prazosin 5 mg Capsule (prazosin 5 mg oral capsule) ??5 mg, By Mouth, 2 times a day Pregabalin 150 mg Capsule (pregabalin 150 mg oral capsule) ??150 mg, By Mouth, 2 times a day Silver dressing gel (44.4mL) (SilvaSorb) ??1 application, Topically, Daily Vancomycin 1500 mg Inj (Vancomycin IVPB) ??1,500 mg, IVPB, Every 12 hours CONTINUOUS: (0) PRN: (12) Acetaminophen 325 mg Tablet (Acetaminophen Tablet) ??650 mg, By Mouth, Every 4 hours Albuterol 0.083% Inhalation Solution (Albuterol 0.083% inhalation sadia) ??2.5 mg 3 mL, BAND Nebulizer, Every 4 hours Dextromethorphan-Guaifenesin 20 mg-200 mg/10 mL Liqu UD (Robitussin DM Liquid) ??10 mL, By Mouth, Every 4 hours Docusate Sodium 100 mg Capsule (Docusate Sodium Capsule) ??100 mg 1 capsule, By Mouth, 2 times a day HYDROmorphone 0.5 mg/0.5 mL Inj Syringe (HYDROmorphone Inj) ??0.5 mg 0.5 mL, IV Push Slowly, Every 3 hours HydrOXYzine Pamoate 25mg Capsule (hydrOXYzine pamoate 25 mg oral capsule) ??50 mg, By Mouth, 3 times a day Melatonin 3 mg Tablet (Melatonin Tablet) ??3 mg, By Mouth, Daily at bedtime NaCl 0.9% Flush 3ml (NaCL 0.9% Flush) ??3 mL, IV Push, Every 8 hours Polyethylene Glycol 17 Gm Powder (MiraLax Powder) ??17 Gm 1 pack/packet, By Mouth, Daily Quetiapine 25 mg Tablet (QUEtiapine 25 mg oral tablet) ??25 mg, By Mouth, 3 times a day Senna Tablet ??8.6 mg 1 tablet, By Mouth, 2 times a day Simethicone 80 mg Chewable Tablet (Simethicone Tablet) ??80 mg, Chew, 3 times a day ? Results Recent Labs BLOOD COUNT & DIFF WBC 13.2 k/mm3 (High)?? 02/08/2023 05:35 RBC 3.73 m/mm3 (Low)?? 02/08/2023 05:35 Hgb 9.9 Gm/dL (Low)?? 02/08/2023 05:35 Hct 30.9 % (Low)?? 02/08/2023 05:35 MCV 82.8 femtoliters ()?? 02/08/2023 05:35 MCH 26.5 pg (Low)?? 02/08/2023 05:35 MCHC 32.0 g/dL (Low)?? 02/08/2023 05:35 Platelet Count 271 k/mm3 ()?? 02/08/2023 05:35 RDW-SD 47.0 femtoliters (High)?? 02/08/2023 05:35 MPV 10.8 femtoliters ()?? 02/08/2023 05:35 Nucleated RBC (Automated) 0.5 #/100 WBC'S ()?? 02/08/2023 05:35 Abs. NRBC 0.1 k/mm3 ()?? 02/08/2023 05:35 ?? CARDIAC Nt-Probnp 448 pg/mL (High)?? 02/08/2023 05:35 ?? CHEM GENERAL Sodium 139 mmol/L ()?? 02/08/2023 05:35 Potassium 4.4 mmol/L ()?? 02/08/2023 05:35 Chloride 96 mmol/L (Low)?? 02/08/2023 05:35 Bicarbonate Level 34 mmol/L (High)?? 02/08/2023 05:35 Anion Gap 9 ()?? 02/08/2023 05:35 BUN 14 mg/dL ()?? 02/08/2023 05:35 Creatinine-Blood 0.7 mg/dL ()?? 02/08/2023 05:35 Estimated GFR Creatinine 121 ML/MIN/1.73 M2 ()?? 02/08/2023 05:35 Phosphorus 4.4 mg/dL ()?? 02/08/2023 05:35 Magnesium 1.9 mg/dL ()?? 02/08/2023 05:35 Protein, Total 6.1 Gm/dL (Low)?? 02/08/2023 05:35 Albumin 3.4 Gm/dL ()?? 02/08/2023 05:35 Alkaline Phosphatase 203 units/L (High)?? 02/08/2023 05:35 AST (SGOT) 39 units/L ()?? 02/08/2023 05:35 ALT (SGPT) 53 units/L (High)?? 02/08/2023 05:35 Bilirubin, Total 0.2 mg/dL ()?? 02/08/2023 05:35 Bilirubin, Direct <0.2 mg/dL ()?? 02/08/2023 05:35 Bilirubin, Indirect Direct bilirubin is less than the measureable limit. Therefore, indirect mg/dL ()?? 02/08/2023 05:35 ? Assessment/Plan Lauri To is a 42-year-old male patient with a history of asthma, chronic pain syndrome, GERD, hypothyroidism, alcohol and cannabis use disorders, bipolar disorder, PTSD, ADHD, antisocial personality disorder, multiple inpatient psychiatric hospitalizations who first presented as a direct transfer from [facility] for pulmonary evaluation as well as possible endocarditis needing an echocardiogram.? 02/07: Psychiatry consult was placed due to history of??schizophrenia.??Based off of evaluation today patient's??metabolic encephalopathy appears to have resolved, he is fully alert and oriented.??Atthis time the patient endorses significant anxiety symptoms of PTSD, with affective dysregulation and irritability consistent with longstanding PTSD. Medication recommendations made. ?? 02/09:??Pt continues to present without acute psychosis, mi or confusion today. Endorses chronicanxiety, worse in the hospital but also endorses medications have not helped much. Pt advocating for discharge and currently has capacity to leave AMA. ? DSM- 5 Diagnoses: Posttraumatic stress disorder Unspecified anxiety disorder History of bipolar 1 disorder History of??antisocial personality disorder History of??opioid use disorder History of alcohol use disorder ?? Recommendations: -Psych cleared, has capacity to leave AMA -Has followup in the community with [facility] Continue Wellbutrin 300 mg daily Depakote 500 mg 3 times daily?? prazosin from 5 mg 2 times daily ?? prns: for hospital use ??hydroxyzine 50 mg 3 times daily as needed for anxiety Ativan 0.5 mg 3 times daily as needed for anxiety Seroquel 25mg TID PRN agitation, to be used cautiously due to risk of oversedation/respiratory suppression ? * Arjun Malagon RN: PERFORM, SIGN, VERIFY Event Display: Progress Note Hospital Authored Date: Patient: LAURI TO Age: 42 years Sex: Male : 1980 Associated Diagnoses: None Author: Arjun Malagon RN Findings Evaluation Pt is A&Ox3, able to make needs known. Complains of pain 12/22, received prn dilaudid and tylenol. received scheduled am meds. Pt upset due to med change, requesting to speak to MD multiple timesand stating he will leave AMA, MD Kala Mccormack aware. Pt has since calmed down. Pt is also getting frequently upset from calls from his mother. Pt has requested to not have staff give information to mother. Pt is resting in bed, bed in lowest position, and safety measures in place. See [facility] for further details. . Discharge Information Case Management Discharge Plan : Case Management Discharge Plan Data 02/06/2023 23:45 EST Discharge Level of Care at Discharge Short-term Acute Inpatient Consult note * Lashonda HENDERSON, Mariel Ambrocio: PERFORM, MODIFY, MODIFY, MODIFY, MODIFY, MODIFY, MODIFY, MODIFY Event Display: Consultation Note Authored Date: Patient: ??LAURI TO ? Age:??42 Years?Sex:??Male?:??1980?? Chief Complaint Transfer from [facility] respiratory failure due to multifocal pneumonia, MRSA bacteremia. Reason for Consultation Requesting Attending/Provider: Dr. Marisela Pacheco ?? Reason for Consult: MRSA bacteremia ?? Source of Information: [facility], patient? This consult was performed as an interprofessional consult after extensive chart review as he had just left AMA when went to see. History of Present Illness Extremely complicated obese 42 year old male with asthma/COPD, opioid dependence/chronic pain syndrome, complicated psychiatric history including: bipolar d/o, PTSD, ADHD, antisocial personality d/o on suboxone and lymphedema who was admitted to [place] on 02/05 with shortness of breath, cough, difficulty breathing and hypoxia with tachypnea and tachycardia.?? Vitals on admit were: temp 96, HR 106, RR 20, BP 100/50 and sats 82% on RA and up to 90% on 2L NC O2. Labs showed WCC 8.6, Hgb 9.7, plts 203, glucose 153, creatinine 0.9, alk phos 192, lipase 11, AST 64, ALT 64, t bili 0.3, lactate 1.6 with (-) flu A/B/RSV/COVID-19 PCR's. Imaging showed extensive bilateral patchy airspace dieease with diffuse bilateral airspace and ground glass opacities with areas of consolidation with air bronchograms on CT chest (02/05). He was started on zithromax and zosyn on admit to cover for aspiration pneumonia and ? CAP.?? He also underwent straight cath for urinary retention with 2100cc urine removal with catheter. Vanco was added as (02/05) blood cultures (2/) grew MRSA with (- )repeat blood cultures on 02/06 (2/2). He was evaluated by ID (Dr. Cast) on 02/06. He was transferred to [facility] on 02/07 for echo and for Pulmonary eval per notes. He was also evaluated by Psych and has capacity to sign out AMA if he wants to. ID is asked to help with antibiotics for MRSA bacteremia. ?? Past Medical and Surgical History: morbid obesity, COPD, asthma, hypothyroidism, bipolar d/o, PTSD,ADHD, antisocial personality d/o, prior inpatient psych admissions with per notes impulsive & destructive behavior, anemia, opioid dependence/chronic pain syndrome/chronic back pain,h/o substanceabuse,?? alcohol abuse, allergic rhinitis, h/o urinary retention (per notes), umbilical hernia, prior appendectomy, hernia repair, knee operations, ankle operation, h/o homelessness, lymphedema ?? Recent Antimicrobials: -unasyn (02/07-) -vanco (112/-) ?? prior antibiotics: -zosyn (02/05-02/07) -zithromax ?? Medications: Reviewed ?? Antimicrobial Allergies: No known antimicrobial allergies. ?? Family History: No relevant history of infectious issues in first degree relatives. ?? Social History and Infectious Diseases Exposure History: per notes had been living with Mom but was homeless before this.?? Review of Systems unable to obtain Physical Exam Vitals & Measurements T:??98.1?F?? TMIN:??98.1?F?? TMAX:??98.4?F?? HR:??70??(Peripheral)?? RR:??18?? BP:??115/77?? SpO2:??95%?? WT:??114.8??kg?? not able to do ?? LABS: WBC 13.2 with 82.1% neutrophils, hemoglobin 9.9, platelets 271, BUN 14, creatinine 0.7, alk phos 203, AST 39, ALT 53, T. bili 0.2 Assessment/Plan Extremely complicated obese 42 year old male with asthma/COPD, opioid dependence/chronic pain syndrome, complicated psychiatric history including: bipolar d/o, PTSD, ADHD, antisocial personality d/o on suboxone and lymphedema who was admitted to [place] on 02/05 with shortness of breath, cough, difficulty breathing and hypoxia with tachypnea and tachycardia with acute hypoxic respiratory failure with multifocal aspiration pneumonia and possible acute lung injury due to vaping with possible edema, MRSA bacteremia and with altered mental status. His course has been complicated by severe anxiety and expressing wish to leave [facility]. (2/2) blood cultures on 02/05 grew MRSA. Repeat blood cultures on 02/06 (2/2) are negative and prelim (-) blood culture on 02/07. He has also had (-)HIV testing, (-) legionella/pneumococcal urinary antigens, (+) RSV on RVP PCR panel on 02/05. ID is asked to help with antibiotics for MRSA bacteremia and suspected aspiration pneumonia (would be unusual to aspirate MRSA). However, can see a viral infection first - such as RVS (+)??AND A??bacterial superinfection on top due to organisms such as staph aureus, strep pneumo or GAS causing a bacterial superinfection with bacteremia. Unclear if any stigmata of IE, any joint swelling, any IVDA, any murmur, any infected wounds with underlying lymphedema - not clear ?? NOt SEEN LEFT AMA BEFORE COULD EVALUATE but left interprofessional consult as chart reviewed extensively and in case he comes back soon. ? PLAN: 1. plan had been to treat for 7 days for suspected aspiration pneumonia (and could be de-escalated to oral augmentin if leaves) 2. had been on IV vanco for MRSA bacteremia?? 3. awaiting finalization of repeat blood culture on 02/07 but prelim no growth (& likely to stay same) 4.??should have a TTE & likely repeat blood cultures if he returns 5. had been on contact isolation for (+) RSV on 02/05 and if symptomatic and returns soon??likely still needs isolation 6. ideally even if he cleared quickly & if had a (-)TTE would consider 4 weeks of IV antibiotics from first (-) blood??culture with weekly safety labs.?? Would avoid zyvox with other psych meds and would be hesitant to give 4 weeks of zyvox without close clinical f/u and weekly safety labs to evaluate for cytopenias and risk of optic neuritis, peripheral neuropathy etc...?? one option might be dalbavancin but not sure he would even return for another dose. 7. should have repeat CXR in 4-6 weeks to ensure resolution over 31 minutes spent reviewing his record, labs, imaging and micro ?? Problem List/Past Medical History Ongoing Alcohol abuse Allergic rhinitis Asthma Bilateral lower [...] obesity (BMI 35.0-39.9) with comorbidity Umbilical hernia Procedure/Surgical History ???Upper gastrointestinal endoscopy (12/20/2018)???Ankle joint operations???Appendectomy???Herniotomy???Knee joint operation Medications Inpatient Acetaminophen Tablet, 650 mg, By Mouth, Every 4 hours, PRN Albuterol 0.083% inhalation sadia, 2.5 mg= 3 mL, BAND Nebulizer, Every 4 hours, PRN Ampicillin/Sulbactam IVPB, 3 Gm, IVPB, Every 6 hours BuPROpion XL Tablet, 300 mg, By Mouth, Daily in AM Depakote Tablet, 500 mg, By Mouth, 3 times a day docusate sodium 100 mg oral capsule, 100 mg= 1 capsule, By Mouth, 2 times a day Docusate Sodium Capsule, 100 mg= 1 capsule, By Mouth, 2 times a day, PRN Enoxaparin Inj, 40 mg= 0.4 mL, Subcutaneous Injection, Daily HYDROmorphone Inj, 0.5 mg= 0.5 mL, IV Push Slowly, Every 3 hours, PRN hydrOXYzine pamoate 25 mg oral capsule, 50 mg, By Mouth, 3 times a day, PRN levothyroxine 0.025 mg oral tablet, 50 mcg, By Mouth, Daily before breakfast Melatonin Tablet, 3 mg, By Mouth, Daily at bedtime, PRN MiraLax Powder, 17 Gm= 1 pack/packet, By Mouth, Daily, PRN montelukast 10 mg oral tablet, 10 mg, By Mouth, Daily at bedtime NaCL 0.9% Flush, 3 mL, IV Push, Every 8 hours NaCL 0.9% Flush, 3 mL, IV Push, Every 8 hours, PRN pantoprazole 20 mg oral delayed release tablet, 20 mg, By Mouth, Daily prazosin 5 mg oral capsule, 5 mg, By Mouth, 2 times a day pregabalin 150 mg oral capsule, 150 mg, By Mouth, 2 times a day QUEtiapine 25 mg oral tablet, 25 mg, By Mouth, 3 times a day, PRN Robitussin DM Liquid, 10 mL, By Mouth, Every 4 hours, PRN Senna Tablet, 8.6 mg= 1 tablet, By Mouth, 2 times a day, PRN SilvaSorb, 1 application, Topically, Daily Simethicone Tablet, 80 mg, Chew, 3 times a day, PRN SoluMedrol Inj, 40 mg, IV Push Slowly, Every 8 hours Vancomycin IVPB, 1500 mg, 15 mg/kg, IVPB, Every 12 hours Home acetaminophen-codeine 300 mg-30 mg oral tablet, 1 tablet ARIPiprazole 30 mg oral tablet, 30 mg= 1 tablet, By Mouth, Daily buprenorphine-naloxone 8 mg-2 mg sublingual film, 2 film, Sublingual, Daily, 1 refills buPROPion 300 mg/24 hours (XL) oral tablet, extended release, 300 mg= 1 tablet, By Mouth, Daily busPIRone 30 mg oral tablet, 30 mg= 1 tablet, By Mouth, 2 times a day diclofenac sodium 75 mg oral delayed release tablet, 75 mg= 1 tablet, By Mouth, 2 times a day, PRN,1 refills diclofenac sodium 75 mg oral delayed release tablet, 75 mg= 1 tablet, By Mouth, 2 times a day divalproex sodium 500 mg oral enteric coated tablet, 500 mg= 1 tablet, By Mouth, 3 times a day docusate sodium 100 mg oral capsule, 100 mg= 1 capsule, By Mouth, 2 times a day docusate sodium 100 mg oral capsule, 100 mg= 1 capsule, By Mouth, 2 times a day escitalopram 20 mg oral tablet, 20 mg= 1 tablet, By Mouth, Daily furosemide 80 mg oral tablet, 80 mg= 1 tablet, By Mouth, Daily, 1 refills hydrOXYzine pamoate 50 mg oral capsule, 50 mg= 1 capsule, By Mouth, 3 times a day, PRN levothyroxine 0.05 mg oral tablet, 50 mcg= 1 tablet, By Mouth, Daily, 1 refills montelukast 10 mg oral tablet, 10 mg= 1 tablet, By Mouth, Daily pantoprazole 20 mg oral delayed release tablet, 20 mg= 1 tablet, By Mouth, Daily prazosin 5 mg oral capsule, 5 mg= 1 capsule, By Mouth, 3 times a day pregabalin 150 mg oral capsule, 150 mg= 1 capsule, By Mouth, 2 times a day Senna 8.6 mg oral tablet, 8.6 mg= 1 tablet, By Mouth, Daily at bedtime tiZANidine 4 mg oral tablet, See Instructions, PRN Allergies OLANZapine Remeron Zoloft ZyPREXA sertraline??(Fluoxetine, Fluoxetine) traZODone Social History Alcohol Use: Current. Frequency: 1-2 times per year. Type: Beer. Electronic Cigarette/Vaping Electronic Cigarette Use: Never. Employment/School Status: Unemployed. Exercise Self assessment: Poor condition. Home/Environment Living situation: Home/Independent. Lives with: Mother. Other Name: Legal. Details: History of multiple incarcerations; not currently on probation. Substance Abuse Use: Past. Type: Marijuana, Prescription medications. Frequency: 1-2 times per month. Tobacco Use: 10 or more cigarettes (1/2 pack or more)/day in last 30 days. Family History Alcoholism: Father. Anxiety: Mother. Asthma: Mother. COPD: Mother. Immunizations Vaccine Date Status tetanus/diphtheria/pertussis, acel(Tdap) 04/09/2022 Recorded [id number] 12y+ bivalent booster vax 02/11/2022 Recorded SARS-CoV-2 (COVID-19) mRNA-1273 vaccine 05/01/2021 Recorded influenza virus vaccine, inactivated 01/11/2021 Recorded SARS-CoV-2 (COVID-19) mRNA BNT-162b2 vac 09/19/2020 Recorded SARS-CoV-2 (COVID-19) mRNA BNT-162b2 vac 08/29/2020 Recorded tetanus-diphtheria toxoids (Td) 12/14/2018 Recorded tetanus/diphtheria/pertussis, acel(Tdap) 05/18/2018 Recorded influenza virus vaccine, inactivated 12/27/2017 Recorded tetanus/diphtheria/pertussis, acel(Tdap) 12/19/2016 Recorded influenza virus vaccine, inactivated 04/28/2016 Recorded * Jana Chance RN: PERFORM, SIGN, VERIFY Event Display: Consultation Note Authored Date: [id number] Patient: LAURI TO Age: 42 years Sex: Male : 1980 Associated Diagnoses: None Author: Jana Chance RN History of Presenting Problem Date of Service 02/08/2023 Reason for referral Wound: Description Location: BLE Etiology: chronic venous stasis and wounds secondary to fluid overload Description: multiple full thickness skin lesions; wound beds with dried yellow slough mixed with red and maroon dried tissue Measurements: various Drainage: none Odor: na Edges: irregular; defined; attached Periwound: hemosiderin staining; no induration or fluctuance Pain: denies Goal of treatment: moist wound healing; antimicrobial action . lle rle Received wound RN consult to assess BLE wounds and provide appropriate topical wound care recommendations. Patient recently admitted to [facility] due to respiratory failure secondary to aspiration pneumonia and acute lung injury secondary to vaping. Noted to have MRSA bacteremia. Transferred to [facility] for pulmonary evaluation and ECHO to r/o endocarditis. He has a PMH significant for schizophrenia, bipolar, chronic lymphedema, destructive behavior, chronic pain syndrome and asthma. Upon entry into patient's room, he is found sitting on the edge of the bed, alert and oriented x 3.Role of wound RN is explained and he is amenable to continuing with consult and photodocumentation.He reports that he has had these wounds for a while. I just picked off the scabs yesterday but they just keep coming back. Patient allowed for wound RN to assess BLE and they are described as above. Spoke with patient and direct care RN regarding recommendations. [place] text sent to Dr Mccormack. Recommendations: 1. BLE open wounds- Cleanse with NS. Pat dry. Apply Silvasorb gel to wound open wounds. Cover with dry gauze. Wrap with gustabo and secure with tape. Change daily. Encourage BLE elevation above heart level when sitting/lying 2. Continue to provide optimal nutritional support Please reconsult wound RN for deterioration in wound/skin status. Plan Recommendations Nutrition Plan Consult Physiological Chemist Maximize nutritional support Mobility Kayden Score : Kayden Score 02/08/2023 8:00 EST Kayden Score 16 02/07/2023 9:00 EST Kayden Score 17 02/07/2023 3:02 EST Kayden Score 16 Patient Teaching Discussed plan of care with patient Discussed plan of care with RN Time spent 31-45 minutes * Darren Talavera DO: PERFORM, MODIFY, MODIFY, MODIFY, MODIFY, MODIFY, MODIFY, MODIFY, MODIFY, MODIFY, MODIFY, MODIFY, MODIFY Event Display: Consultation Note Authored Date: [id number] Patient: ??LAURI TO ? Age:??42 Years?Sex:??Male?:??1980?? Chief Complaint Transfer from [facility] respiratory failure due to multifocal pneumonia, MRSA bacteremia. Reason for consult: history of schizophrenia Consult requested by: Dr. Guerra History of Present Illness SOURCE OF INFORMATION: Per patient, crisis evaluation and [facility] records? HISTORY OF PRESENT ILLNESS:?? Lauri To is a 42-year-old male patient with a history of asthma, chronic pain syndrome, GERD, hypothyroidism,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 Discharge Time : 02/09/2023 15:24 EST Discharge Level of Care at Discharge : Left Against Medical Advice Patient Left Unit Via : Wheelchair Patient Accompanied Off Unit with : Responsible adult DC Instructions Provided & Signed by Pt : Unable (Comment: pt left AMA [Manas RN, Arjun - 02/09/2023 15:24 EST] ) Patient Understands D/C Instructions : Unable (Comment: Pt left AMA [Manas RN, Arjun - 02/09/2023 15:24 EST] ) Patient Instructions Discharge Signed : No (Comment: pt left AMA [Manas RN, Arjun - 02/09/2023 15:24 EST] ) Did Pt have Specialty Bed or Wound Vac : Yes Manas VALENTINE, Arjun - 02/09/2023 15:24 EST Patient Care team information Care Team Personnel Name: Sammy Traore RN Position: [facility] RN Member Role: Primary Care Nurse Name: Konrad Gallegos RN Position: [facility] ED RN W/OE and Tasks Member Role: Primary Care Nurse Name: Anna Weaver RN Position: [facility] RN Member Role: Primary Care Nurse Name: Niki Bright RN Position: [facility] RN Member Role: Primary Care Nurse Name: Fang Che Position: [facility] RN Member Role: Primary Care Nurse Name: Trisha Alamo RN Position: [facility] RN Supv Member Role: Primary Care Nurse Name: Rita Son NP Position: [facility] Associate Professional Member Role: Primary Care Nurse Address: Address: [address] [place] [id number] Name: Sol Chanel RN Position: [facility] RN Member Role: Primary Care Nurse Name: Helene Pérez RN Position: [facility] RN Member Role: Primary Care Nurse Name: Brenda Cuba RN Position: [facility] HBO Wound Member Role: Primary Care Nurse Name: Kell Alonso RN Position: [facility] RN Member Role: Primary Care Nurse Name: Richa Clay LPN Position: [facility] RN Member Role: Primary Care Nurse Name: Prisca Meng RN Position: [facility] RN Member Role: Primary Care Nurse Name: Екатерина Chacko RN Position: [facility] RN Member Role: Primary Care Nurse Name: Arjun Malagon RN Position: [facility] RN Member Role: Primary Care Nurse Name: Not on Staff, PCP Position: [facility] Physician (General Medicine) Member Role: PCP Name: Milo Leonard RN Position: [facility] RN Member Role: Primary Care Nurse Name: Anna Oconnor RN Position: [facility] Hospital Diesel Motor Mechanic Member Role: Primary Care Nurse Name: Shamar Lynn RN Position: [facility] RN Member Role: Primary Care Nurse Name: Kip Gonzalez RN Position: [facility] RN Member Role: Primary Care Nurse Address: Address: [address] [place] [address]- Name: April Acuña RN Position: [facility] RN Member Role: Primary Care Nurse Name: Li Esquivel RN Position: [facility] Diesel Motor Mechanic Member Role: Primary Care Nurse Name: Tunde White MD Position: [facility] Physician - [facility] Member Role: Lifetime Consulting Physician Address: Address: [address] [place] [address]- Care Team Related Persons Name: FORREST TO Address: [address] [place] [address] Name: MÓNICA CREWS
--- OUTSIDE RECORDS SUMMARY | 2023-05-04 10:52 | XMS_ITS | Continuity of Care Document ---
Author Name Unknown Organization [facility] Address [address] [place] [address]- Care Team Providers Care Freight Conductor Name Role Phone Not on Staff, PCP Primary Care Physician Unavail able Encounter [facility] Date(s): 03/23/23 - 04/22/23 [facility] [address] [place] [address]- Allergies, Adverse Reactions, Alerts Substance Reaction Severity Status sertraline Fluoxetine Fluoxetine Active Zoloft Active Remeron Active traZODone Active OLANZapine Active ZyPREXA Active Immunizations Given and Recorded Vaccine Date Status Refusal Reason tetanus/diphtheria/pertussis, acel(Tdap) 04/09/22 Recorded tetanus/diphtheria/pertussis, acel(Tdap) 05/18/18 Recorded tetanus/diphtheria/pertussis, acel(Tdap) 12/19/16 Recorded [id number] 12y+ bivalent booster vax 02/11/22 Recorded SARS-CoV-2 [...] 0 Refills, Maintenance, 03/12/23 14:01:00 EST, Cream, [facility] #[id number], Apply to lower legs andfeet 2 times a day, avoiding open areas, 183, cm, 1... Start Date: 03/12/23 Status: Ordered bethanechol 25 mg oral tablet 25 mg, By Mouth, 4 times a day, # 120 tablet, Refills 0, Tot. Refills 0, Maintenance, 03/12/23 14:02:00 EST, Route to Pharmacy Electronically, [facility] #[id number], 183, cm, 03/12/23 5:13:00 EST, Height, 125.2, kg, 02/22/23 14:00:00 EST, Dry We... Start Date: 03/12/23 Status: Ordered buPROPion 300 mg/24 hours (XL) oral tablet, extended release 1 tablet = 300 mg, By Mouth, Daily, # 30 tablet, 0 Refills, Maintenance, 03/12/23 15:02:00 EST, XL Tablet, [facility] #[id number], 183, cm, 03/12/23 5:13:00 EST, Height, 125.2, kg, 02/22/23 14:00:00 EST, Dry Weight Start Date: 03/12/23 Status: Ordered busPIRone 30 mg oral tablet 1 tablet = 30 mg, By Mouth, 2 times a day, # 60 tablet, 0 Refills, Maintenance, 03/12/23 15:02:00 EST, Tablet, [facility] #[id number], 183, cm, 03/12/23 5:13:00 EST, Height, 125.2, [...] Refills, Maintenance, 03/12/23 13:59:00 EST, ER Tablet, [facility] #[id number], 183, cm, 03/12/23 5:13:00 EST, Height, 125.2, kg, 02/22/23 14:00:00 EST, Dry Weight Start Date: 03/12/23 Status: Ordered Depakote ER 500 mg oral tablet, extended release 3 tablet = 1,500 mg, By Mouth, Daily, total dose is 1750 QD, # 90 tablet, 0 Refills, Maintenance, 03/12/23 13:58:00 EST, ER Tablet, [facility] #[id number], 183, cm, 03/12/23 5:13:00 EST, Height,125.2, kg, [...] 03/26/23 9:50:00 EST, Route to Pharmacy Electronically, [facility] #[id number], Partial fill upon patient request if the prescription is for a schedule II opioi... Start Date: 03/26/23 Stop Date: 04/25/23 Status: Ordered furosemide 80 mg oral tablet 80 mg, 1, tablet, By Mouth, 2 times a day, # 14 tablet, Refills 0, Tot. Refills 0, Maintenance, 04/02/23 13:37:00 EST, Route to Pharmacy Electronically, [facility] #[id number], Partial fill uponpatient request if the prescription is for a schedu... Start Date: 04/02/23 Stop Date: 04/09/23 Status: Ordered levothyroxine 75 mcg (0.075 mg) oral tablet = 75 mcg, By Mouth, Daily, # 30 tablet, 0 Refills, Maintenance, 03/12/23 14:00:00 EST, Tablet, [facility] #[id number], 183, cm, 03/12/23 5:13:00 EST, Height, 125.2, [...] 14:40:00 EST, 04/01/23 14:40:00 EST, EC Tablet, [facility] #[id number], Partial fill upon patient request if the [...] Refills, Maintenance, 03/14/23 9:00:00 EST, ER Tablet, [facility] #[id number], 183, cm, 03/13/23 7:38:00 EST, Height, 125.2, kg, 02/22/23 14:00:00 EST, Dry Weight Start Date: 03/14/23 Status: Ordered prazosin 5 mg oral capsule 5 mg, 1, capsule, By Mouth, 2 times a day, # 60 capsule, Refills 0, Tot. Refills 0, Maintenance, 03/12/23 14:03:00 EST, Route to Pharmacy Electronically, [facility] #[id number], Partial fill upon patient request if the prescription is for a sched... Start Date: 03/12/23 Status: Ordered pregabalin 150 mg oral capsule 1 capsule = 150 mg, By Mouth, 2 times a day, # 180 capsule, 0 Refills, Maintenance, 01/27/23 10:33:00 EST, Capsule, [facility] #[id number], Partial fill upon patient request if the prescription is for a schedule II opioid drug., 183, cm, 01/27/23... Start Date: 01/27/23 Status: Ordered promethazine 25 mg oral tablet 0.5 each = 12.5 mg, By Mouth, Every 6 hours, PRN Nausea & Vomiting, # 20 tablet, 0 Refills, Maintenance, 03/12/23 19:26:00 EST, Tablet, [facility] #[id number], 183, cm, 03/12/23 5:13:00 EST,Height, 125.2, kg, 02/22/23 14:00:00 EST, Dry Weight Start Date: 03/12/23 Status: Ordered rivaroxaban 20 mg oral tablet = 20 mg, By Mouth, Daily at supper, # 30 tablet, 0 Refills, Maintenance, 04/01/23 15:05:00 EST, Tablet, [facility] #[id number], 183, cm, 03/12/23 5:13:00 EST, Height, 125.2, kg, 02/22/23 14:00:00 EST, Dry Weight Start Date: 04/01/23 Status: Ordered Senna 8.6 mg oral tablet 8.6 mg, 1, tablet, By Mouth, Daily at bedtime, # 30 tablet, Refills 0, Tot. Refills 0, Maintenance,03/12/23 15:04:00 EST, Route to Pharmacy Electronically, [facility] #[id number] Tablet, 183, cm, 03/12/23 5:13:00 EST, Height, 125.2, kg, 02/22/23... Start Date: 03/12/23 Status: Ordered SEROquel 25 mg oral tablet 50 mg, By Mouth, Every 8 hours, PRN, # 90 tablet, Refills 0, Tot. Refills 0, Maintenance, Anxiety, 03/12/23 14:05:00 EST, Route to Pharmacy Electronically, [facility] #[id number], 183, cm, 03/12/23 5:13:00 EST, Height, 125.2, kg, 02/22/23 14:00:0... Start Date: 03/12/23 Status: Ordered tamsulosin 0.4 mg oral capsule 0.4 mg, By Mouth, Daily, # 30 capsule, Refills 0, Tot. Refills 0, Maintenance, 03/12/23 15:06:00 EST, Route to Pharmacy Electronically, [facility] #[id number], 183, cm, 03/12/23 5:13:00 EST, Height, 125.2, kg, 02/22/23 14:00:00 EST, Dry Weight Start Date: 03/12/23 Status: Ordered tiZANidine 2 mg oral tablet 2 mg, 1, tablet, By Mouth, 3 times a day, PRN, # 30 tablet, Refills 0, Tot. Refills 0, Maintenance,Spasm, 03/12/23 19:27:00 EST, Route to Pharmacy Electronically, [facility] #[id number], ., 183, cm, 03/12/23 5:13:00 EST, Height, [...] suboxone- but denies any recent use. 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 Pt contracts for [...] Code MRI Safety Implantable Status 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 [id number] Unknown [id number] Unknown 03/11/21 Unknown Unknown Active GS1 [...] Role: Primary Care Nurse Address: Address: [address] [facility] [place] [address]- [place] Name: Sol Chanel RN Position: [facility] RN Member Role: Primary Care Nurse Name: Brenda Cuba RN Position: [facility] HBO Wound Member Role: Primary Care Nurse Name: Kell Alonso RN Position: [facility] RN Member Role: Primary Care Nurse Name: Belen Tesfaye RN Position: [facility] RN Member Role: Primary Care Nurse Name: Richa Clay LPN Position: [facility] RN Member Role: Primary Care Nurse Name: Aury Pandya RN Position: [facility] RN Member Role: Primary Care Nurse Name: Prisca Meng RN Position: [facility] RN Member Role: Primary Care Nurse Name: Екатерина Chacko RN Position: [facility] RN Member Role: Primary Care Nurse Name: Sadaf Tubbs RN Position: [facility] RN Member Role: Primary Care Nurse Name: Arjun Malagon RN Position: [facility] RN Member Role: Primary Care Nurse Name: Not on Staff, PCP Position: [facility] Physician (General Medicine) Member Role: PCP Name: Milo Leonard RN Position: [facility] RN Member Role: Primary Care Nurse Name: Anna Oconnor RN Position: [facility] Renal Medicine Specialist Member Role: Primary Care Nurse Name: Dalila Cerda RN Position: [facility] RN Member Role: Primary Care Nurse Name: Shamar Lynn RN Position: [facility] RN Member Role: Primary Care Nurse Name: Kip Gonzalez RN Position: [facility] RN Member Role: Primary Care Nurse Address: Address: [address] [place] [address]- [place] Name: April Acuña RN Position: [facility] RN Member Role: Primary Care Nurse Name: Li Esquivel RN Position: [facility] Renal Medicine Specialist Member Role: Primary Care Nurse Name: Tunde White MD Position: [facility] Physician - [facility] Member Role: Lifetime Consulting Physician Address: Address: [address] [place] [id number]- [place] Care Team Related Persons Name: YOUSUF FORREST Address: home [address] [place] [address], [place] [address] Name: MÓNICA CREWS
--- OUTSIDE RECORDS SUMMARY | 2023-05-04 10:53 | XMS_ITS | Continuity of Care Document ---
Author Name Unknown Organization [facility] Address [address] [place] [address]- Care Team Providers Care Wall Scraper Name Role Phone Not on Staff, PCP Primary Care Physician Unavail able Encounter [facility] Date(s): 02/14/23 - 02/14/[address] [address]- Discharge Disposition: A-D/C Home Attending Physician: Triston Saravia MD Admitting Physician: Triston Saravia MD Referring Physician: Not on Staff, Referring MD Allergies, Adverse Reactions, Alerts Substance Reaction Severity Status sertraline Fluoxetine Fluoxetine Active Zoloft Active OLANZapine Active Remeron Active traZODone Active ZyPREXA Active Immunizations Given and Recorded Vaccine Date Status Refusal Reason tetanus/diphtheria/pertussis, acel(Tdap) 04/09/22 Recorded tetanus/diphtheria/pertussis, acel(Tdap) 05/18/18 Recorded tetanus/diphtheria/pertussis, acel(Tdap) 12/19/16 Recorded [id number] 12y+ bivalent booster vax 02/11/22 Recorded SARS-CoV-2 [...] 02/23/23 15:23:00 EST, 02/09/23 15:23:00 EST, Tablet, [facility], Partial fill upon patient request if the prescription is for a schedule II opioid drug., 1 ta... Start Date: 02/09/23 Stop Date: 02/23/23 Status: Ordered buprenorphine-naloxone 8 mg-2 mg sublingual film 2 film, Sublingual, Daily, # 14 film, 1 Refills, Maintenance, 09/29/22 15:26:00 EDT, Film, [facility] #[id number], Partial fill upon patient request if the [...] Refills, Maintenance, 01/04/23 15:55:00 EDT, EC Tablet, [facility] #[id number], Partial fill upon patient request if the [...] 8:29:00 EDT, Route to Pharmacy Electronically, [facility], Partial fill upon patient r... Start [...] 0 Refills, Maintenance, 09/29/22 15:28:00 EDT, Tablet, [facility] #[id number], Partial fill upon patient request if the prescription is for a schedule II opioid drug., 182.88, cm, 09/29/22 14:33:00... Start Date: 09/29/22 Stop Date: 10/13/22 Status: Ordered furosemide 80 mg oral tablet 80 mg, 1, tablet, By Mouth, Daily, TAKE ONE TABLET BY MOUTH DAILY, # 14 tablet, Refills 1, Tot. Refills 1, Maintenance, 08/05/22 8:30:00 EDT, Route to Pharmacy Electronically, [facility], Partial fill upon patient request [...] 1 Refills, Maintenance, 08/05/22 8:30:00 EDT, Tablet, [facility], Partial fill upon patient request if [...] 0 Refills, Maintenance, 01/27/23 10:33:00 EST, Capsule, [facility] #[id number], Partial fill upon patient request if the [...] Replace Required Details, Route to Pharmacy Electronically, [facility]... Start Date: 12/11/22 Status: Ordered [...] to [facility] a few times 04/28/2018: started [facility] bup/nal program Last Assessment & Plan: On suboxone 8-2mg bid. Per pt would like to change to methadone. Reports had been getting approx 4 mos ago. States still having cravings with suboxone- but denies any recent use. [facility] [employer] In[employer] Specialist and will work to connect him [...] & Plan: Recent inpt psych hospitalization in [facility]. Denies any SI/HI at this time but very anxious about medications. DW pt no dose adjustments at this time and will need to connect with psych at [facility]- no current psych provider. Pt contracts for safety. Pt did come with rx avail- but sh ort on lorazepam. Will fill at this time but ensure has prescriber on d/c. BH met with pt todayand psych referral placed. Administration aware. Vital Signs Most recent to oldest [Reference Range]: 1 2 Height 183 cm (02/14/23 4:51 PM) 183 cm (02/14/23 11:20 AM) Weight 118 kg (02/14/23 4:51 PM) 118 kg (02/14/23 11:20 AM) Oxygen Saturation [94-100 %] 100 % (02/14/23 4:51 PM) 96 % (02/14/23 11:20 AM) Pulse Rate [55-90 bpm] 79 bpm (02/14/23 4:51 PM) 82 bpm (02/14/23 11:20 AM) Body Mass Index [18.5-24.99 kg/m2] 35.24 kg/m2 *>HHI* (02/14/23 4:51 PM) Blood Pressure [90-138/55-84 mm Hg] 113/ 58mm Hg (02/14/23 4:51 PM) 111/76mm Hg (02/14/23 11:20 AM) Respiratory Rate [16-30 br/min] 18 br/mi n (02/14/23 4:51 PM) 18 br/min (02/14/23 11:20 AM) Temperature [96.8-100.4 DegF] 98.0 DegF (02/14/23 4:51 PM) 98.0 DegF (02/14/23 11:20 AM) Mode of Delivery (Oxygen) Room air (02/14/23 4:51 PM) Room air (02/14/23 11:20 AM) Blood pressure sites Arm, left (02/14/23 4:51 PM) Arm, right (02/14/23 11:20 AM) Temperature Route Oral (02/14/23 4:51 PM) Oral (02/14/23 11:20 AM) Dry Weight 118 kg (02/14/23 4:51 PM) 118 kg (02/14/23 11:20 AM) Social History Social History Type Response [...] Code MRI Safety Implantable Status 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 [id number] Unknown [id number] 2 Unknown 03/11/21 Unknown Unknown Active GS1 Note * Triston Saravia MD: PERFORM Event Display: Patient Education Leaflets Authored Date: [id number] Marijuana Use Disorder ?? [id number] Marijuana Use Disorder Marijuana is the most widely used illegal drug in the [place] Recently, it's increasingly legal for recreational and medicinal use in many states. It's called by various names such as pot, weed, blunts,grass, reefer, ganja, hash, or hashish. It's usually smoked, but it can be mixed with foods or brewed as a tea. Recently a practice known as dabbing or smoking wax has become popular. This means smoking highly concentrated extracts of the marijuana plant. The result is more side effects. Sometimes, marijuana can be illegally sold with PCP (luz dust) or amphetamine mixed in it. These illegaldrugs can cause other harmful side effects. If you're using marijuana with other illegal or legal drugs, the type and severity of side effects will vary. Marijuana can cause the following effects: ??? Changes in mood, such as stimulated, happy, drowsy, depressed, or paranoid ??? Visions (hallucinations) ??? Increased heart rate and blood pressure ??? Red eyes ??? Increased appetite ??? Time distortion, trouble concentrating, or memory problems ??? Lung damage. This is similar to cigarettes with chronic cough, wheezing, frequent colds, and bronchitis. ??? Rarely, collapse of the lung (pneumothorax) ??? Decreased sperm count ??? Dizziness, vertigo, and possibly slurred speech ??? Vomiting.Even though marijuana is used to treat nausea and vomiting, some chronic daily users have the opposite effect. They vomit uncontrollably for long periods of time (cannabinoid hyperemesis syndrome). You can become psychologically dependent on marijuana. That means the craving to use the drug is emotional or psychological rather than from physical withdrawal. Is marijuana running your life? Here are some of the signs of marijuana use disorder: ??? Relying on marijuana to feel good, forgetproblems, deal with stress or to relax ??? Wanting to be alone most of the time or only with otherswho use drugs ??? Losing interest in things that used to be important ??? Changes in school or job performance or attendance ??? Spending a lot of time thinking about how to get marijuana ??? Stealing or selling your things so you can buy marijuana ??? Unable to stop using even though you may want to quit ??? Increasing anxiety, anger,??or depression ??? Sleeping too much, or changes in eating habits (weight loss or gain) ??? Needing to use more to get the same effect ?? Home care These suggestions will help you manage marijuana use disorder: ??? Once you have become addicted toany drug, quitting is hard to do. Most people find they can't quit without help. So don???t try to do this alone. Talk to someone you trust who can support you. Seek professional help. ??? Stay away from people and places where drugs are used. That only increases the temptation to use. ?? Follow-up care Follow up with your healthcare provider, or as advised. For more information or a referral to a treatment center in your area, contact: ??? Substance Abuseand Mental Health Services Administration ([facility]) Treatment Locations at https://www.[facility].gov/find-treatment ??? National [place] on Alcoholism and Drug Dependence at http://ncaddms.org/ or call 676-902-1272 ??? Marijuana Anonymous at marijuanaDgimed Orthoanonymous.org or call 371-717-3816? When to get medical care ??Call your healthcare provider right away if any of these occur: ??? You believe you're addicted to marijuana and want to stop using it. ??? You feel extreme depression, fear, anxiety, or anger toward yourself or others. ??? You feel out of control. ??? You feel that you may try to harm yourself or another. ??? You have chest pain or shortness of breath. ?? Last Reviewed Date: 2021 ?? 4264-0157 [employer]. All rights reserved. This information is not intended as a substitute for professional medical care. Always follow your healthcare professional's instructions. ?? Patient Care team information Care Team Personnel Name: Sammy Traore RN Position: [facility] RN Member Role: Primary Care Nurse Name: Konrad Gallegos RN Position: [facility] ED RN W/OE and Tasks Member Role: Primary Care Nurse Name: Anna Weaver RN Position: [facility] RN [...] Role: Primary Care Nurse Address: Address: [address] [place] [id number] Name: Sol Chanel RN [facility] Care Nurse Name: Prisca Meng RN Position: [facility] RN Member Role: Primary Care Nurse Name: Екатерина Chacko RN Position: [facility] RN Member Role: Primary Care Nurse Name: Arjun Malagon RN Position: [facility] RN Member Role: Primary Care Nurse Name: Not on Staff, PCP Position: [facility] Physician (General Medicine) Member Role: PCP Name: Milo Leonard RN Position: [facility] RN Member Role: Primary Care Nurse Name: Anna Oconnor RN Position: [facility] Coin Box Collector Member Role: Primary Care Nurse Name: Shamar Lynn RN Position: [facility] RN Member Role: Primary Care Nurse Name: Kip Gonzalez RN Position: [facility] RN Member Role: Primary Care Nurse Address: Address: [address] [place] [address]- Name: April Acuña RN Position: [facility] RN Member Role: Primary Care Nurse Name: Li Esquivel RN Position: [facility] Coin Box Collector Member Role: Primary Care Nurse Name: Tunde White MD Position: [facility] Physician - [facility] Member Role: Lifetime Consulting Physician Address: Address: [address] [place] [address]- [place] Name: Triston Saravia MD Position: [facility] ED Medicine MD Member Role: Admitting Physician Address: Address: [address] [place] [address]- [place] [address]- [place] Name: Mansoor Swann MD Position: [facility] ED Medicine MD Member Role: ED Attending Physician Address: Address: [address] [place] [address]- [place] Name: Patricia Zacarias RN Position: [facility] ED RN W/OE and Tasks Member Role: Patient Care Provider Name: Payal Shaikh Position: [facility] ED TA [facility] Member Role: Breaker Layer Care Team Related Persons Name: YOUSUFFORREST Address: home [address] [place] [id number] Name: MÓNICA CREWS
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
--- OUTSIDE RECORDS SUMMARY | 2023-05-04 10:53 | XMS_ITS | Continuity of Care Document ---
Author Name Unknown Organization [facility] Address [address] [place] [address]- Care Team Providers Care Procurement Consultant Name Role Phone Not on Staff, PCP Primary Care Physician Unavail able [place] [facility] - 01/30/[address] [address]- Encounter Diagnosis Varicose vein of leg(Final) - 01/30/23 Lymphedema(Final) - 01/30/23 Lower leg edema(Final) - 01/30/23 Discharge Disposition: A-D/C Home Attending Physician: Tommy Trujillo MD Admitting Physician: Tommy Trujillo MD Referring Physician: Not on Staff, Referring MD Allergies, Adverse Reactions, Alerts Substance Reaction Severity Status sertraline Fluoxetine Fluoxetine Active Zoloft Active Remeron Active traZODone Active OLANZapine Active ZyPREXA Active Immunizations Given and Recorded Vaccine Date Status Refusal Reason tetanus/diphtheria/pertussis, acel(Tdap) 04/09/22 Recorded tetanus/diphtheria/pertussis, acel(Tdap) 05/18/18 Recorded tetanus/diphtheria/pertussis, acel(Tdap) 12/19/16 Recorded [id number] 12y+ bivalent booster vax 02/11/22 Recorded SARS-CoV-2 (COVID-19) mRNA-1273 vaccine 05/01/21 R ecorded influenza virus vaccine, inactivated 01/11/21 Sandro rded influenza virus vaccine, inactivated 12/27/17 Sandro rded influenza virus vaccine, inactivated 04/28/16 Sandro rded SARS-CoV-2 (COVID-19) mRNA BNT-162b2 vac 09/19/20 Recorded SARS-CoV-2 (COVID-19) mRNA BNT-162b2 vac 08/29/20 Recorded tetanus-diphtheria toxoids (Td) 10/2/19 Recorded Medications acetaminophen-codeine 300 mg-30 mg oral tablet 1, tablet, TAKE 1 TABLET BY MOUTH EVERY 6 HOURS NEEDED FOR PAIN, DO NOT DRIVE OR DRINK ALCOHOL Start Date: 12/24/22 Status: Ordered ARIPiprazole 15 mg oral tablet 30 mg, By Mouth, Daily, # 14 tablet, Refills 0, Tot. Refills 0, Maintenance, 09/29/22 15:25:00 EDT,Route to Pharmacy Electronically, [facility] #[id number], Partial fill upon patient request ifthe prescription [...] 1 Refills, Maintenance, 09/29/22 15:26:00 EDT, Film, [facility] #[id number], Partial fill upon patient request if the [...] 1 Refills, Maintenance, 09/29/22 15:25:00 EDT, Tablet, [facility] #[id number], Partial fill upon patient request i... Start Date: 09/29/22 Status: Ordered cloNIDine 0.1 mg oral tablet 0.2 mg, By Mouth, 2 times a day, # 21 tablet, Refills 1, Tot. Refills 1, Maintenance, 09/29/22 15:26:00 EDT, Route to Pharmacy Electronically, [facility] #[id number], Partial fill upon patient request if the prescription is for a schedule II opio... Start Date: 09/29/22 Stop Date: 10/13/22 Status: Ordered diclofenac sodium 75 mg oral delayed release tablet 1 tablet = 75 mg, By Mouth, 2 times a day, PRN Pain , Moderate, # 60 tablet, 1 Refills, Maintenance, 01/04/23 15:55:00 EDT, EC Tablet, [facility] #[id number], Partial fill upon patient request if the [...] 08/05/22 8:29:00 EDT, Route to Pharmacy Electronically, [facility], Partial fill upon patient r... [...] 0 Refills, Maintenance, 09/29/22 15:28:00 EDT, Tablet, [facility] #[id number], Partial fill upon patient request if the [...] Route to Pharmacy Electronically, [facility], Partial fill upon patient request if [...] 0 Refills, Maintenance, 01/28/23 8:18:00 EST, Tablet, [facility] #[id number], Partial fill upon patient request if the prescription is for a schedule II opioid drug., 183, cm, 01/27/23 10:18:00 EST... Start Date: 01/28/23 Status: Ordered levothyroxine 0.05 mg oral tablet 1 tablet = 50 mcg, By Mouth, Daily, TAKE ONE TABLET BY MOUTH DAILY, # 14 tablet, 1 Refills, Maintenance, 08/05/22 8:30:00 EDT, Tablet, [facility], Partial fill upon patient request if the prescription is for a schedule II opioid drug., 1... Start Date: 08/05/22 Stop Date: 09/02/22 Status: Ordered methocarbamol 500 mg oral tablet 1 tablet = 500 mg, By Mouth, 3 times a day, PRN muscle spasm, for 10 days, # 30 tablet, 0 Refills, Acute 02/06/23 10:35:00 EST, 01/27/23 10:35:00 EST, Tablet, [facility] #[id number], Partial fill upon patient request if the [...] 0 Refills, Maintenance, 01/27/23 10:33:00 EST, Capsule, [facility] #[id number], Partial fill upon patient request if the [...] Replace Required Details, Route to Pharmacy Electronically, [facility]... Start Date: 12/11/22 Status: Ordered Problem List [...] to CAB a few times 04/28/2018: started [facility] bup/nal program Last Assessment & Plan: On suboxone 8-2mg bid. Per pt would like to change to methadone. Reports had been getting approx 4 mos ago. States still having cravings with suboxone- but denies any recent use. 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 5Outside Source Comment: Last Assessment & Plan: Recent inpt psych hospitalization in [facility]. Denies any SI/HI at this time but very anxious about medications. DW pt no dose adjustments at this time and will need to connect with psych at [facility]- no current psych provider. Pt contracts for safety. Pt did come with rx avail- but sh ort on lorazepam. Will fill at this time but ensure has prescriber on d/c. BH met with pt todayand psych referral placed. Administration aware. Vital Signs Most recent to oldest [Reference Range]: 1 2 Oxygen Saturation [94-100 %] 99 % (01/30/23 5:58 PM) 98 % (01/30/23 1:02 PM) Pulse Rate [55-90 bpm] 83 bpm (01/30/23 5:58 PM) 86 bpm (01/30/23 1:02 PM) Blood Pressure [90-138/55-84 mm Hg] 141/ 72mm Hg *H* (01/30/23 5:58 PM) 138/67mm Hg (01/30/23 1:02 PM) Respiratory Rate [16-30 br/min] 18 br/mi n (01/30/23 5:58 PM) 16 br/min (01/30/23 1:02 PM) Temperature [96.8-100.4 DegF] 97.9 DegF (01/30/23 1:02 PM) Mode of Delivery (Oxygen) Room air (01/30/23 5:58 PM) Room air (01/30/23 1:02 PM) Blood pressure sites Arm, right (01/30/23 5:58 PM) Arm, right (01/30/23 1:02 PM) Temperature Route Oral (01/30/23 1:02 PM) Social History Social History Type [...] Code MRI Safety Implantable Status 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 [id number] Unknown [id number] 2 Unknown 03/11/21 Unknown Unknown Active GS1 Note * Xiao Maza DO: PERFORM Event Display: Patient Education Leaflets Authored Date: [id number] [facility] [place] If you need a Doctor or Clinic ?? 34 If You Need a Doctor or Clinic ?? Call [facility] PCP Assignment Line to help you find a doctor:?? [phone] ?? Clinics in [place], [place] For a full list of clinics:? [email or web address] ?? [facility]? [address] [phone] [facility] Internal medicine Clinic?[address]?[phone] [facility]?[address][phone] [facility]?[address][phone] [facility]?[address] [phone] [facility]?[address][phone] [facility]?[address][phone] [facility]?[address] [phone] [facility]? [address][phone] [facility] 7th grade social studies teacher?[address][phone] [facility]?[address][phone] [facility]?[address][phone] [facility]?[address][phone] [facility]? [address][phone] [facility]?[address][phone] ? Patient Care team information Care Team Personnel Name: Konrad Gallegos RN Position: [facility] ED RN W/OE and Tasks Member Role: Primary Care Nurse Name: Anna Weaver RN Position: [facility] RN Member Role: Primary Care Nurse Name: Niki Bright RN Position: [facility] RN Member Role: Primary Care Nurse Name: Fang Che Position: [facility] RN Member Role: Primary Care Nurse Name: Trisha Alamo RN Position: [facility] RN Supv Member Role: Primary Care Nurse Name: Rita Son NP Position: [facility] Associate Professional Member Role: Primary Care Nurse Address: Address: [address] [place] [address]- Name: Sol Chanel RN Position: [facility] RN Member Role: Primary Care Nurse Name: Helene Pérez RN Position: [facility] RN Member Role: Primary Care Nurse Name: Brenda Cuba RN Position: [facility] HBO Wound Member Role: Primary Care Nurse Name: Kell Alonso RN Position: [facility] RN Member Role: Primary Care Nurse Name: Richa Clay LPN Position: [facility] RN Member Role: Primary Care Nurse Name: Екатерина Chacko RN Position: [facility] RN Member Role: Primary Care Nurse Name: Not on Staff, PCP Position: [facility] Physician (General Medicine) Member Role: PCP Name: Anna Oconnor RN Position: [facility] Waiter And Cashier Member Role: Primary Care Nurse Name: Kip Gonzalez RN Position: [facility] RN Member Role: Primary Care Nurse Address: Address: [address] [place] [address]- Name: April Acuña RN Position: [facility] RN Member Role: Primary Care Nurse Name: Li Esquivel RN Position: [facility] Waiter And Cashier Member Role: Primary Care Nurse Name: Tunde White MD Position: [facility] Physician - Behavioral Health Member Role: Lifetime Consulting Physician Address: Address: [address] [place] [address]- Name: Tommy Trujillo MD Position: [facility] ED Medicine MD Member Role: Admitting Physician Address: Address: [address] [place] [address] Name: Xiao Maza DO Position: [facility] Resident Member Role: ED Resident Address: Address: [address] [place] [address] Name: Bri Ferraro RN Position: [facility] ED RN W/OE and Tasks Member Role: Patient Care Provider Name: Darren Randle Position: [facility] ED TA [facility] Member Role: Perforating Machine Operator Care Team Related Persons Name: FORREST TO Address: home [address] [place] [id number] Name: MÓNICA CREWS
--- OUTSIDE RECORDS SUMMARY | 2023-05-04 10:53 | XMS_ITS | Continuity of Care Document ---
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 Start Date: 03/12/23 Status: Ordered bethanechol 25 mg oral tablet 25 mg, By Mouth, 4 times a day, # 120 tablet, Refills 0, Tot. Refills 0, Maintenance, 03/12/23 14:02:00 EST, Route to Pharmacy Electronically, [facility] #[id number], 183, cm, 03/12/23 5:13:00 EST, Height, 125.2, kg, 02/22/23 14:00:00 EST, Dry We... Start Date: 03/12/23 Status: Ordered buPROPion 300 mg/24 hours (XL) oral tablet, extended release 1 tablet = 300 mg, By Mouth, Daily, # 30 tablet, 0 Refills, Maintenance, 03/12/23 15:02:00 EST, XL Tablet, [facility] #[id number], 183, cm, 03/12/23 5:13:00 EST, Height, 125.2, kg, 02/22/23 14:00:00 EST, Dry Weight Start Date: 03/12/23 Status: Ordered busPIRone 30 mg oral tablet 1 tablet = 30 mg, By Mouth, 2 times a day, # 60 tablet, 0 Refills, Maintenance, 03/12/23 15:02:00 EST, Tablet, [facility] #[id number], 183, cm, 03/12/23 5:13:00 EST, Height, 125.2, [...] Refills, Maintenance, 03/12/23 13:59:00 EST, ER Tablet, [facility] #[id number], 183, cm, 03/12/23 5:13:00 EST, Height, 125.2, kg, 02/22/23 14:00:00 EST, Dry Weight Start Date: 03/12/23 Status: Ordered Depakote ER 500 mg oral tablet, extended release 3 tablet = 1,500 mg, By Mouth, Daily, total dose is 1750 QD, # 90 tablet, 0 Refills, Maintenance, 03/12/23 13:58:00 EST, ER Tablet, [facility] #[id number], 183, cm, 03/12/23 5:13:00 EST, Height,125.2, kg, [...] 03/26/23 9:50:00 EST, Route to Pharmacy Electronically, [facility] #[id number], Partial fill upon patient request if the prescription is for a schedule II opioi... Start Date: 03/26/23 Stop Date: 04/25/23 Status: Ordered furosemide 80 mg oral tablet 80 mg, 1, tablet, By Mouth, 2 times a day, # 14 tablet, Refills 0, Tot. Refills 0, Maintenance, 04/02/23 13:37:00 EST, Route to Pharmacy Electronically, [facility] #[id number], Partial fill uponpatient request if the prescription is for a schedu... Start Date: 04/02/23 Stop Date: 04/09/23 Status: Ordered levothyroxine 75 mcg (0.075 mg) oral tablet = 75 mcg, By Mouth, Daily, # 30 tablet, 0 Refills, Maintenance, 03/12/23 14:00:00 EST, Tablet, [facility] #[id number], 183, cm, 03/12/23 5:13:00 EST, Height, 125.2, kg, 02/22/23 14:00:00 EST, Dry Weight Start Date: 03/12/23 Status: Ordered Methadone = 110 mg, By Mouth, Daily, 0 Refills, Maintenance, 03/26/23 9:50:00 EST, Tablet, Partial fill upon patient request if the prescription is for a schedule II opioid drug. Start Date: 03/26/23 Status: Ordered Methadone Tablet 120 mg, Tablet, By Mouth, Once, (one hundred twenty milligrams - pt's confirmed daily dose per [employer]), JAZLYN, 04/10/23 6:29:00 EST, Stop date 04/10/23 6:29:00 EST Start Date: 04/10/23 Stop Date: 04/10/23 Status: Completed naproxen 500 mg oral delayed release tablet 1 tablet = 500 mg, By Mouth, 2 times a day, for 30 days, # 60 tablet, 0 Refills, Acute 05/01/23 14:40:00 EST, 04/01/23 14:40:00 EST, EC Tablet, [facility] #[id number], Partial fill upon patient request if the [...] Refills, Maintenance, 03/14/23 9:00:00 EST, ER Tablet, [facility] #[id number], 183, cm, 03/13/23 7:38:00 EST, Height, 125.2, kg, 02/22/23 14:00:00 EST, Dry Weight Start Date: 03/14/23 Status: Ordered prazosin 5 mg oral capsule 5 mg, 1, capsule, By Mouth, 2 times a day, # 60 capsule, Refills 0, Tot. Refills 0, Maintenance, 03/12/23 14:03:00 EST, Route to Pharmacy Electronically, [facility] #[id number], Partial fill upon patient request if the prescription is for a sched... Start Date: 03/12/23 Status: Ordered pregabalin 150 mg oral capsule 1 capsule = 150 mg, By Mouth, 2 times a day, # 180 capsule, 0 Refills, Maintenance, 01/27/23 10:33:00 EST, Capsule, [facility] #[id number], Partial fill upon patient request if the prescription is for a schedule II opioid drug., 183, cm, 01/27/23... Start Date: 01/27/23 Status: Ordered promethazine 25 mg oral tablet 0.5 each = 12.5 mg, By Mouth, Every 6 hours, PRN Nausea & Vomiting, # 20 tablet, 0 Refills, Maintenance, 03/12/23 19:26:00 EST, Tablet, [facility] #[id number], 183, cm, 03/12/23 5:13:00 EST,Height, 125.2, kg, 02/22/23 14:00:00 EST, Dry Weight Start Date: 03/12/23 Status: Ordered rivaroxaban 20 mg oral tablet = 20 mg, By Mouth, Daily at supper, # 30 tablet, 0 Refills, Maintenance, 04/01/23 15:05:00 EST, Tablet, [facility] #[id number], 183, cm, 03/12/23 5:13:00 EST, Height, 125.2, kg, 02/22/23 14:00:00 EST, Dry Weight Start Date: 04/01/23 Status: Ordered Senna 8.6 mg oral tablet 8.6 mg, 1, tablet, By Mouth, Daily at bedtime, # 30 tablet, Refills 0, Tot. Refills 0, Maintenance,03/12/23 15:04:00 EST, Route to Pharmacy Electronically, [facility] #[id number] Tablet, 183, cm, 03/12/23 5:13:00 EST, Height, 125.2, kg, 02/22/23... Start Date: 03/12/23 Status: Ordered SEROquel 25 mg oral tablet 50 mg, By Mouth, Every 8 hours, PRN, # 90 tablet, Refills 0, Tot. Refills 0, Maintenance, Anxiety, 03/12/23 14:05:00 EST, Route to Pharmacy Electronically, [facility] #[id number], 183, cm, 03/12/23 5:13:00 EST, Height, 125.2, kg, 02/22/23 14:00:0... Start Date: 03/12/23 Status: Ordered tamsulosin 0.4 mg oral capsule 0.4 mg, By Mouth, Daily, # 30 capsule, Refills 0, Tot. Refills 0, Maintenance, 03/12/23 15:06:00 EST, Route to Pharmacy Electronically, [facility] #[id number], 183, cm, 03/12/23 5:13:00 EST, Height, 125.2, kg, 02/22/23 14:00:00 EST, Dry Weight Start Date: 03/12/23 Status: Ordered tiZANidine 2 mg oral tablet 2 mg, 1, tablet, By Mouth, 3 times a day, PRN, # 30 tablet, Refills 0, Tot. Refills 0, Maintenance,Spasm, 03/12/23 19:27:00 EST, Route to Pharmacy Electronically, [facility] #[id number], ., 183, cm, 03/12/23 5:13:00 EST, Height, [...] CAB a few times 04/28/2018: started [facility] bup/nal program Last Assessment & Plan: On suboxone 8-2mg bid. Per pt would like to change to methadone. Reports had been getting approx 4 mos ago. States still having cravings with suboxone- but denies any recent use. 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 Will continue Suboxone 8-2mg bid at this time. Not interested in tx program at this time. CTM. 2Outside Source Comment: Last Assessment & Plan: Recent inpt psych hospitalization in [facility]. Denies any SI/HI at this time but very anxious about medications. DW pt no dose adjustments at this time and will need to connect with psych at [facility]- no current psych provider. Pt contracts for safety. Pt did come with rx avail- but sh ort on lorazepam. Will fill at this time but ensure has prescriber on d/c. BH met with pt todayand psych referral placed. Administration aware. Vital Signs Most recent to oldest [Reference Range]: 1 2 3 Height 183 cm (04/10/23 6:41 AM) 183 cm (04/10/23 3:17 AM) Weight 140 kg (04/10/23 6:41 AM) 140 kg (04/10/23 3:17 AM) Oxygen Saturation [94-100 %] 95 % (04/10/23 6:41 AM) 95 % (04/10/23 5:00 AM) 95 % (04/10/23 2:19 AM) Pulse Rate [55-90 bpm] 87 bpm (04/10/23 6:41 AM) 86 bpm (04/10/23 5:00 AM) 95 bpm *H* (04/10/23 2:19 AM) Body Mass Index [18.5-24.99 kg/m2] 41.8 kg/m2 *>HHI* (04/10/23 6:41 AM) Blood Pressure [90-138/55-84 mm Hg] 128/72mm Hg (04/10/23 6:41 AM) 123/71mm Hg (04/10/23 5:00 AM) 149/83mm Hg *H* (04/10/23 2:19 AM) Respiratory Rate [16-30 br/min] 18 br/min (04/10/23 6:41 AM) 21 br/min (04/10/23 6:39 AM) 20 br/min (04/10/23 5:00 AM) Temperature [96.8-100.4 DegF] 97.7 DegF (04/10/23 2:19 AM) Mode of Delivery (Oxygen) Room air (04/10/23 6:41 AM) Room air (04/10/23 5:00 AM) Room air (04/10/23 2:19 AM) Blood pressure sites Arm, left (04/10/23 6:41 AM) Arm, left (04/10/23 5:00 AM) Arm, left (04/10/23 2:19 AM) Temperature Route Oral (04/10/23 2:19 AM) Dry Weight 140 kg (04/10/23 6:41 AM) 140 kg (04/10/23 3:17 AM) Weight Obtained Via Patient/family state d (04/10/23 3:17 AM) Dry Weight Obtained Via Patient/family s tated (04/10/23 3:17 AM) Social History Social History Type Response Tobacco Use: 4 or less cigar ettes(less than 1/4 pack)/day in last 30 days. Sex Implantable Device List Procedure Provider Procedure Date Device Type Site Repair Hernia Ventral Laparoscopic Gus Vivas MD 09/13/20 Unknown Abdomen Device Identifier Serial Number Lot or Batch Number Manufacturing Date Expiration Date Distinct Identification Code MRI Safety Implantable Status 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 [id number] Unknown [id number] Unknown 03/11/21 Unknown Unknown Active GS1 Note * Doris HENDERSON, Lizett Quispe: PERFORM Event Display: Patient Education Leaflets Authored Date: Noncardiac Chest Pain ?? [id number] Noncardiac Chest Pain In most cases, people [...] leg ?? Last Reviewed Date: 2021 ?? 6017-0459 [employer]. All rights reserved. This information is not intended as a substitute for professional medical care. Always follow your healthcare professional's instructions. ?? Patient Care team information Care Team Personnel Name: Konrad Gallegos RN Position: [facility] ED RN W/OE and Tasks Member Role: Primary Care Nurse Name: Anna Weaver RN Position: [facility] RN Member Role: Primary Care Nurse Name: Niki Bright RN Position: [facility] RN Member Role: Primary Care Nurse Name: Fang Che Position: [facility] RN Member Role: Primary Care Nurse Name: Trisha Alamo RN Position: [facility] RN Supv Member Role: Primary Care Nurse Name: Rita Son NP Position: [facility] Associate Professional Member Role: Primary Care Nurse Address: Address: [address] [place] [address] Name: Sol Chanel RN Position: [facility] RN Member Role: Primary Care Nurse Name: Helene Pérez RN Position: [facility] RN Member Role: Primary Care Nurse Name: Brenda Cuba RN Position: [facility] HBO Wound Member Role: Primary Care Nurse Name: Kell Alonso RN Position: [facility] RN Member Role: Primary Care Nurse Name: Belen Tesfaye RN Position: [facility] RN Member Role: Primary Care Nurse Name: Richa Clay LPN Position: [facility] RN Member Role: Primary Care Nurse Name: Aury Pandya RN Position: [facility] RN Member Role: Primary Care Nurse Name: Prisca Meng RN Position: [facility] RN Member Role: Primary Care Nurse Name: Екатерина Chacko RN Position: [facility] RN Member Role: Primary Care Nurse Name: Sadaf Tubbs RN Position: [facility] RN Member Role: Primary Care Nurse Name: Arjun Malagon RN Position: [facility] RN Member Role: Primary Care Nurse Name: Not on Staff, PCP Position: [facility] Physician (General Medicine) Member Role: PCP Name: Milo Leonard RN Position: [facility] RN Member Role: Primary Care Nurse Name: Anna Oconnor RN Position: [facility] Hospital Bisque Kiln Drawer Member Role: Primary Care Nurse Name: Dalila Cerda RN Position: [facility] RN Member Role: Primary Care Nurse Name: Shamar Lynn RN Position: [facility] RN Member Role: Primary Care Nurse Name: Kip Gonzalez RN Position: [facility] RN Member Role: Primary Care Nurse Address: Address: [address] [place] [address]- Name: April Acuña RN Position: [facility] RN Member Role: Primary Care Nurse Name: Li Esquivel RN Position: [facility] Bisque Kiln Drawer Member Role: Primary Care Nurse Name: Tunde White MD Position: [facility] Physician - [facility] Member Role: Lifetime Consulting Physician Address: Address: [address] [place] [address]- Care Team Related Persons Name: FORREST TO Address: home [address] [place] [address] Name: MÓNICA CREWS
--- OUTSIDE RECORDS SUMMARY | 2023-05-04 10:53 | XMS_ITS | Continuity of Care Document ---
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 Start Date: 04/25/23 Stop Date: 04/26/23 Status: Ordered ammonium lactate 12% topical cream See Instructions, Apply to lower legs and feet 2 times a day, avoiding open areas, # 385 Gm, 0 Refills, Maintenance, 03/12/23 14:01:00 EST, Cream, [facility] #[id number], Apply to lower legs andfeet 2 times a day, avoiding open areas, 183, cm, 1... Start Date: 03/12/23 Status: Ordered bethanechol 25 mg oral tablet 25 mg, By Mouth, 4 times a day, # 120 tablet, Refills 0, Tot. Refills 0, Maintenance, 03/12/23 14:02:00 EST, Route to Pharmacy Electronically, [facility] #[id number], 183, cm, 03/12/23 5:13:00 EST, Height, 125.2, kg, 02/22/23 14:00:00 EST, Dry We... Start Date: 03/12/23 Status: Ordered buPROPion 300 mg/24 hours (XL) oral tablet, extended release 1 tablet = 300 mg, By Mouth, Daily, # 30 tablet, 0 Refills, Maintenance, 03/12/23 15:02:00 EST, XL Tablet, [facility] #[id number], 183, cm, 03/12/23 5:13:00 EST, Height, 125.2, kg, 02/22/23 14:00:00 EST, Dry Weight Start Date: 03/12/23 Status: Ordered busPIRone 30 mg oral tablet 1 tablet = 30 mg, By Mouth, 2 times a day, # 60 tablet, 0 Refills, Maintenance, 03/12/23 15:02:00 EST, Tablet, [facility] #[id number], 183, cm, 03/12/23 5:13:00 EST, Height, 125.2, [...] Refills, Maintenance, 03/12/23 13:59:00 EST, ER Tablet, [facility] #[id number], 183, cm, 03/12/23 5:13:00 EST, Height, 125.2, kg, 02/22/23 14:00:00 EST, Dry Weight Start Date: 03/12/23 Status: Ordered Depakote ER 500 mg oral tablet, extended release 3 tablet = 1,500 mg, By Mouth, Daily, total dose is 1750 QD, # 90 tablet, 0 Refills, Maintenance, 03/12/23 13:58:00 EST, ER Tablet, [facility] #[id number], 183, cm, 03/12/23 5:13:00 EST, Height,125.2, kg, [...] 03/26/23 9:50:00 EST, Route to Pharmacy Electronically, [facility] #[id number], Partial fill upon patient request if the prescription is for a schedule II opioi... Start Date: 03/26/23 Stop Date: 04/25/23 Status: Ordered furosemide 80 mg oral tablet 80 mg, 1, tablet, By Mouth, Daily, # 30 tablet, Refills 0, Tot. Refills 0, Maintenance, 04/25/23 14:19:00 EST, Route to Pharmacy Electronically, [facility] #[id number], Partial fill upon patientrequest if the prescription is for a schedule II op... Start Date: 04/25/23 Status: Ordered furosemide 80 mg oral tablet 80 mg, 1, tablet, By Mouth, 2 times a day, # 14 tablet, Refills 0, Tot. Refills 0, Maintenance, 04/02/23 13:37:00 EST, Route to Pharmacy Electronically, [facility] #[id number], Partial fill uponpatient request if the prescription is for a schedu... Start Date: 04/02/23 Stop Date: 04/09/23 Status: Ordered levothyroxine 75 mcg (0.075 mg) oral tablet = 75 mcg, By Mouth, Daily, # 30 tablet, 0 Refills, Maintenance, 03/12/23 14:00:00 EST, Tablet, [facility] #[id number], 183, cm, 03/12/23 5:13:00 EST, Height, 125.2, [...] 14:40:00 EST, 04/01/23 14:40:00 EST, EC Tablet, [facility] #[id number], Partial fill upon patient request if the [...] Refills, Maintenance, 03/14/23 9:00:00 EST, ER Tablet, [facility] #[id number], 183, cm, 03/13/23 7:38:00 EST, Height, 125.2, kg, 02/22/23 14:00:00 EST, Dry Weight Start Date: 03/14/23 Status: Ordered prazosin 5 mg oral capsule 5 mg, 1, capsule, By Mouth, 2 times a day, # 60 capsule, Refills 0, Tot. Refills 0, Maintenance, 03/12/23 14:03:00 EST, Route to Pharmacy Electronically, [facility] #[id number], Partial fill upon patient request if the prescription is for a sched... Start Date: 03/12/23 Status: Ordered pregabalin 150 mg oral capsule 1 capsule = 150 mg, By Mouth, 2 times a day, # 180 capsule, 0 Refills, Maintenance, 01/27/23 10:33:00 EST, Capsule, [facility] #[id number], Partial fill upon patient request if the prescription is for a schedule II opioid drug., 183, cm, 01/27/23... Start Date: 01/27/23 Status: Ordered promethazine 25 mg oral tablet 0.5 each = 12.5 mg, By Mouth, Every 6 hours, PRN Nausea & Vomiting, # 20 tablet, 0 Refills, Maintenance, 03/12/23 19:26:00 EST, Tablet, [facility] #[id number], 183, cm, 03/12/23 5:13:00 EST,Height, 125.2, kg, 02/22/23 14:00:00 EST, Dry Weight Start Date: 03/12/23 Status: Ordered rivaroxaban 20 mg oral tablet = 20 mg, By Mouth, Daily at supper, # 30 tablet, 0 Refills, Maintenance, 04/01/23 15:05:00 EST, Tablet, [facility] #[id number], 183, cm, 03/12/23 5:13:00 EST, Height, 125.2, kg, 02/22/23 14:00:00 EST, Dry Weight Start Date: 04/01/23 Status: Ordered Senna 8.6 mg oral tablet 8.6 mg, 1, tablet, By Mouth, Daily at bedtime, # 30 tablet, Refills 0, Tot. Refills 0, Maintenance,03/12/23 15:04:00 EST, Route to Pharmacy Electronically, [facility] #[id number] Tablet, 183, cm, 03/12/23 5:13:00 EST, Height, 125.2, kg, 02/22/23... Start Date: 03/12/23 Status: Ordered SEROquel 25 mg oral tablet 50 mg, By Mouth, Every 8 hours, PRN, # 90 tablet, Refills 0, Tot. Refills 0, Maintenance, Anxiety, 03/12/23 14:05:00 EST, Route to Pharmacy Electronically, [facility] #[id number], 183, cm, 03/12/23 5:13:00 EST, Height, 125.2, kg, 02/22/23 14:00:0... Start Date: 03/12/23 Status: Ordered tamsulosin 0.4 mg oral capsule 0.4 mg, By Mouth, Daily, # 30 capsule, Refills 0, Tot. Refills 0, Maintenance, 03/12/23 15:06:00 EST, Route to Pharmacy Electronically, [facility] #[id number], 183, cm, 03/12/23 5:13:00 EST, Height, 125.2, kg, 02/22/23 14:00:00 EST, Dry Weight Start Date: 03/12/23 Status: Ordered tiZANidine 2 mg oral tablet 2 mg, 1, tablet, By Mouth, 3 times a day, PRN, # 30 tablet, Refills 0, Tot. Refills 0, Maintenance,Spasm, 03/12/23 19:27:00 EST, Route to Pharmacy Electronically, [facility] #[id number], ., 183, cm, 03/12/23 5:13:00 EST, Height, [...] to [facility] a few times 04/28/2018: started [facility] bup/nal program Last Assessment & Plan: On suboxone 8-2mg bid. Per pt would like to change to methadone. Reports had been getting approx 4 mos ago. States still having cravings with suboxone- but denies any recent use. DW [facility] and will work to connect him with [...] will need to connect with psych at [facility]- no current psych provider. Pt contracts for safety. Pt did come with rx avail- but sh ort on lorazepam. Will fill at this time but ensure has prescriber on d/c. BH met with pt todayand psych referral placed. Administration aware. Vital Signs Most recent to oldest [Reference Range]: 1 2 Height 183 cm (04/25/23 2:26 PM) 183 cm (04/25/23 12:25 PM) Weight 109.5 kg (04/25/23 2:26 PM) 109.5 kg (04/25/23 12:25 PM) Oxygen Saturation [94-100 %] 99 % (04/25/23 2:26 PM) 99 % (04/25/23 12:25 PM) Pulse Rate [55-90 bpm] 91 bpm *H* (04/25/23 2: PM) 102 bpm *H* (04/25/23 12:25 PM) Body Mass Index [18.5-24.99 kg/m2] 32.7 kg/m2 *>HHI* (04/25/23 2: PM) Blood Pressure [90-138/55-84 mm Hg] 129/ 70mm Hg (04/25/23 2:26 PM) 128/83mm Hg (04/25/23 12:25 PM) Respiratory Rate [16-30 br/min] 19 br/mi n (04/25/23 2: PM) 18 br/min (04/25/23 12:25 PM) Temperature [96.8-100.4 DegF] 97.3 DegF (04/25/23 12:25 PM) Mode of Delivery (Oxygen) Room air (04/25/23 2:26 PM) Room air (04/25/23 12:25 PM) Blood pressure sites Arm, right (04/25/23 2:26 PM) Temperature Route Temporal (04/25/23 12:25 PM) Dry Weight 109.5 kg (04/25/23 2:26 PM) 109.5 kg (04/25/23 12:25 PM) Dry Weight Obtained Via Standing scale (04/25/23 12:25 PM) Social History Social History Type Response Tobacco Use: 4 or less cigar ettes(less than 1/4 pack)/day in last 30 days. Sex Implantable Device List Procedure Provider Procedure Date Device Type Site Repair Hernia Ventral Laparoscopic Gus Vivas MD 09/13/20 Unknown Abdomen Device Identifier Serial Number Lot or Batch Number Manufacturing Date Expiration Date Distinct Identification Code MRI Safety Implantable Status 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 [id number] Unknown [id number] Unknown 03/11/21 Unknown Unknown Active GS1 Patient Care team information Care Team Personnel Name: Konrad Gallegos RN Position: [facility] ED RN W/OE and Tasks Member Role: Primary Care Nurse Name: Anna Weaver RN Position: [facility] RN Member Role: Primary Care Nurse Name: Niki Bright RN Position: [facility] RN Member Role: Primary Care Nurse Name: Fang Che Position: [facility] RN Member Role: Primary Care Nurse Name: Trisha Alamo RN Position: [facility] RN Supv Member Role: Primary Care Nurse Name: Rita Son NP Position: [facility] Associate Professional Member Role: Primary Care Nurse Address: Address: [address] [place] [id number] Name: Sol Chanel RN Position: [facility] ED RN W/OE and Tasks Member Role: Primary Care Nurse Name: Brenda Cuba RN Position: [facility] Wound Member Role: Primary Care Nurse Name: Kell Alonso RN Position: [facility] ED RN W/OE and Tasks Member Role: Primary Care Nurse Name: Belen Tesfaye RN Position: [facility] RN Member Role: Primary Care Nurse Name: Richa Clay LPN Position: [facility] RN Member Role: Primary Care Nurse Name: Aury Pandya RN Position: [facility] RN Member Role: Primary Care Nurse Name: Prisca Meng RN Position: [facility] RN Member Role: Primary Care Nurse Name: Екатерина Chacko RN Position: [facility] RN Member Role: Primary Care Nurse Name: Sadaf Tubbs RN Position: [facility] RN Member Role: Primary Care Nurse Name: Arjun Malagon RN Position: [facility] RN Member Role: Primary Care Nurse Name: Not on Staff, PCP Position: [facility] Physician (General Medicine) Member Role: PCP Name: Milo Leonard RN Position: [facility] RN Member Role: Primary Care Nurse Name: Anna Oconnor RN Position: [facility] Hospital Talent Acquisition Specialist Member Role: Primary Care Nurse Name: Dalila Cerda RN Position: [facility] RN Member Role: Primary Care Nurse Name: Shamar Lynn RN Position: [facility] RN Member Role: Primary Care Nurse Name: Kip Gonzalez RN Position: [facility] RN Member Role: Primary Care Nurse Address: Address: [address] [place] [id number]- Name: April Acuña RN Position: [facility] RN Member Role: Primary Care Nurse Name: Li Esquivel RN Position: [facility] Hospital Talent Acquisition Specialist Member Role: Primary Care Nurse Name: Tunde White MD Position: [facility] Physician - Behavioral Health Member Role: Lifetime Consulting Physician Address: Address: [address] [place] [id number] [place] Care Team Related Persons Name: YOUSUFFORREST Address: [address] [place] [address] Name: MÓNICA CREWS
--- OUTSIDE RECORDS SUMMARY | 2023-05-04 10:54 | XMS_ITS | Continuity of Care Document ---
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 Name Role Phone Not on Staff, PCP Primary Care Physician Unavail able Encounter [facility] Date(s): 02/05/23 - 02/06/[address] [address]- Discharge Disposition: Transferred to short-term general hospit Attending Physician: Suzanne Chau MD Admitting Physician: Suzanne Chau MD Referring Physician: Bal Bassett DO Allergies, Adverse Reactions, Alerts Substance Reaction Severity Status sertraline Fluoxetine Fluoxetine Active Zoloft Active Remeron Active traZODone Active OLANZapine Active ZyPREXA Active Immunizations Given and Recorded Vaccine Date Status Refusal Reason tetanus/diphtheria/pertussis, acel(Tdap) 04/09/22 Recorded tetanus/diphtheria/pertussis, acel(Tdap) 05/18/18 Recorded tetanus/diphtheria/pertussis, acel(Tdap) 12/19/16 Recorded [id number] 12y+ bivalent booster vax 02/11/22 Recorded SARS-CoV-2 [...] DRINK ALCOHOL Start Date: 12/24/22 Status: Ordered acetaminophen-codeine 300 mg-30 mg oral tablet 1 tablet, Tablet, By Mouth, Once, Routine, 02/06/23 17:00:00 EST, Stop date 02/06/23 17:00:00 EST Start Date: 02/06/23 Stop Date: 02/06/23 Status: Completed ARIPiprazole 30 mg oral tablet 1 tablet = 30 mg, By Mouth, Daily, 0 Refills, Maintenance, 01/27/23 10:26:00 EST, Partial fill uponpatient request if the prescription is for a schedule II opioid drug. Start Date: 01/27/23 Status: Ordered buprenorphine-naloxone 8 mg-2 mg sublingual film 2 film, Sublingual, Daily, # 14 film, 1 Refills, Maintenance, 09/29/22 15:26:00 EDT, Film, [id number], Partial fill upon patient request if the [...] Refills, Maintenance, 01/04/23 15:55:00 EDT, EC Tablet, [facility] #[id number], Partial fill upon patient request if the [...] 08/05/22 8:29:00 EDT, Route to Pharmacy Electronically, [facility], Partial fill upon patient r... Start [...] 0 Refills, Maintenance, 09/29/22 15:28:00 EDT, Tablet, [facility] #[id number], Partial fill upon patient request if the prescription is for a schedule II opioid drug., 182.88, cm, 09/29/22 14:33:00... Start Date: 09/29/22 Stop Date: 10/13/22 Status: Ordered furosemide 80 mg oral tablet 80 mg, 1, tablet, By Mouth, Daily, TAKE ONE TABLET BY MOUTH DAILY, # 14 tablet, Refills 1, Tot. Refills 1, Maintenance, 08/05/22 8:30:00 EDT, Route to Pharmacy Electronically, [facility], Partial fill upon patient request if [...] 1 Refills, Maintenance, 08/05/22 8:30:00 EDT, Tablet, [facility], Partial fill upon patient request if [...] 0 Refills, Maintenance, 01/27/23 10:33:00 EST, Capsule, [facility] #[id number], Partial fill upon patient request if the [...] Replace Required Details, Route to Pharmacy Electronically, [facility]... Start Date: 12/11/22 Status: Ordered [...] to CAB a few times 04/28/2018: started PSYCHIATRIC bup/nal program Last Assessment & Plan: On suboxone 8-2mg bid. Per pt would like to change to methadone. Reports had been getting approx 4 mos ago. States still having cravings with suboxone- but denies any recent use. DW Taxation Consultant and will work to connect him with [...] & Plan: bp wnl-ap 126-regular Pt to [facility] via cab for further eval. 5Outside Source Comment: Last Assessment & Plan: Recent inpt psych hospitalization in [facility]. Denies any SI/HI at this time but very anxious about medications. DW pt no dose adjustments at this time and will need to connect with psych at [facility]- no current psych provider. Pt contracts for safety. Pt did come with rx avail- but sh ort on lorazepam. Will fill at this time but ensure has prescriber on d/c. met with pt todayand psych referral placed. Administration aware. Results Orders for Microbiology Reports Name Date Blood Culture 02/05/23 Blood Culture #2 02/05/23 Microbiology Reports TEST:Blood Culture, Second Order STATUS:Unauthenticated BODY SITE: SOURCE:Blood COLLECTED DATE/TIME:02/05/23 4:43 AM Blood Culture, Second Order SPECIMEN DESCRIPTION : BLOOD RIGHT FA SPECIAL REQUESTS : CRITICAL VALUE CALLED AND VERIFIED BY READBACK FOR: GRAM POSITIVE COCCI AND PCR TO [id number], P22, 02/06 AT 0423 BY TECH [id number] CULTURE : GRAM POSITIVE COCCI S. aureus was identified by multiplex PCR. mecA detected. Due to the presence of the mecA gene, this isolate should be considered resistant to methicillin (MRSA). REPORT STATUS : PRELIMINARY REPORT TEST:Blood Culture STATUS:Unauthenticated BODY SITE: SOURCE:Blood COLLECTED DATE/TIME:02/05/23 4:30 AM Blood Culture SPECIMEN DESCRIPTION : BLOOD LEFT UPPER ARM SPECIAL REQUESTS : NONE CULTURE : GRAM POSITIVE COCCI REPORT STATUS : PRELIMINARY REPORT Radiology Reports * Exam Date Time Procedure Performing Provider Status 02/06/23 4:21 PM Chest Portable Ebenezer Valladares; Auth (Verified) Notes: (Chest Portable) Reason For Exam: Cough RESULT: Chest Portable Chest Portable Reason: Cough; Clinical Question(s): Pneumonia COMPARISON: 02/05/2023 FINDINGS: LINES AND TUBES: None. LUNGS AND PLEURA: Patchy density both lungs similar to the previous exam. No pleural effusion. No pneumothorax. HEART, MEDIASTINUM AND CONCEPCIÓN: Heart is normal in size. Normal mediastinal and hilar contour. BONES AND SOFT TISSUES: No acute abnormality. IMPRESSION: Stable patchy density both lungs. The appearance suggests pulmonary edema versus pneumonia. WSN: [id number] Ordering Physician: Suzanne Chau Dictated By: Gonzales Dudley MD Dictated Date/Time: 02/06/23 5:46 pm Reviewed By: Gonzales Dudley MD Signed By: Gonzales Dudley MD Signed Date/Time: 02/06/23 5:46 pm Transcribed By: RAVINDER Transcribed Date/Time: 02/06/23 5:44 pm * Exam Date Time Procedure Performing Provider Status 02/05/23 6:[address] Chest W/ Contrast Niya Brown; Auth (Verified) Notes: (CT Chest W/ Contrast) Reason For Exam: Pulmonary Lesion;Other: RESULT: CT Chest W/ Contrast CT Chest W/ Contrast INDICATION: Hx of Present Illness: not feeling well, pain all over, SOB,reports bloody stool for 2 months; Reason: Other:; Pulmonary Lesion; Clinical Question(s): Interstitial Alveolar Infiltration TECHNIQUE: Helical CT scan of the chest with IV contrast, formatted in 3 planes. 100 cc of Omnipaque 300 was administered intravenously. Weight-based protocol was performed using automatic exposure control. CTDIvol Body: 19.66 mGy, DLP Body: 717 mGy*cm. COMPARISON: 04/19/2022 FINDINGS: Electroencephalographic Technician view findings, lines and tubes: None. Trachea and airways: Proximal tracheal bronchial tree is patent without endobronchial mass or obstruction. Lungs and pleura: Diffuse airspace opacities, there is some areas of subpleural sparing. There are air bronchograms. Dense consolidative opacity present in the right upper lung and right lower lung with more groundglass opacities present more diffusely. There is no area of cavitation. There is involvement of both lungs in upper and lower lobes. No effusion or pneumothorax. Mediastinum and concepción: No mass or hematoma. Markedly increased in number and borderline enlarged mediastinal lymph nodes including AP window nodes, paratracheal nodes, subcarinal nodes. Bilateral mildly enlarged bilateral hilar lymph nodes no acute esophageal abnormality. Small paraesophageal lymph nodes, for example series 2 image 71. Heart: Heart is normal in size. There is trace volume of pericardial fluid. Aorta: No aortic aneurysm. Pulmonary arteries: Mildly enlarged main pulmonary artery at 35 mm No evidence of pulmonary embolism on this study performed without angiographic technique. Chest wall soft tissues: No acute abnormality. Diaphragm: Intact. Upper abdomen: Small splenule noted. Borderline to mild hepatic steatosis. Fatty atrophy of the pancreas. Bones: No acute abnormality. IMPRESSION: Diffuse bilateral airspace and groundglass opacities, including areas of consolidation with air bronchograms. Consider infection such as COVID 19 pneumonia. Pulmonary hemorrhage or asymmetric pneumonia is not excluded but is considered less likely based ondistribution and incomplete subpleural sparing. No pleural effusions. Mildly enlarged mediastinal and hilar lymph nodes, markedly increased in number. These can be reactive. This report is concordant with the preliminary vRAD report. WSN: [id number] Ordering Physician: Bal Bassett Dictated By: Felicitas Lacey MD Dictated Date/Time: 02/05/23 8:12 am Reviewed By: Felicitas Lacey MD Signed By: Felicitas Lacey MD Signed Date/Time: 02/05/23 8:12 am Transcribed By: RAVINDER Transcribed Date/Time: 02/05/23 7:57 am * Exam Date Time Procedure Performing Provider Status 02/05/23 3:51 AM Chest 2 Views Frontal and Lat Niya Morris; Auth (Verified) Notes: (Chest 2 Views Frontal and Lat) Reason For Exam: Shortness of Breath RESULT: Chest 2 Views Frontal and Lat Chest 2 Views Frontal and Lat Hx of Present Illness: not feeling well, pain all over, SOB,reports bloody stool for 2 months; Reason: Shortness of Breath; Clinical Question(s): CHF COMPARISON: None. FINDINGS: LINES AND TUBES: None. LUNGS AND PLEURA: Extensive bilateral patchy airspace lung opacities. . No pleural effusion. No pneumothorax. HEART, MEDIASTINUM AND CONCEPCIÓN: Mild prominence of the cardiac silhouette. BONES AND SOFT TISSUES: No acute abnormality. IMPRESSION: 1. Extensive bilateral patchy bilateral airspace disease. Differential considerations include pulmonary edema versus an infectious, inflammatory or neoplastic etiology. 2. Mild prominence of the cardiomediastinal silhouette. WSN: [id number] Ordering Physician: Bal Bassett Dictated By: Gely Mckeon MD Dictated Date/Time: 02/05/23 7:07 am Reviewed By: Gely Mckeon MD Signed By: Gely Mckeon MD Signed Date/Time: 02/05/23 7:07 am Transcribed By: RAVINDER Transcribed Date/Time: 02/05/23 7:04 am Vital Signs Most recent to oldest [Reference Range]: 1 2 3 Height 183 cm (02/06/23 7:48 PM) 183 cm (02/06/23 4:45 AM) 183 cm (02/05/23 9:50 PM) Weight 129.9 kg (02/05/23 4:46 PM) 129.9 kg (02/05/23 4:12 PM) 118 kg (02/05/23 7:37 AM) Oxygen Saturation [94-100 %] 98 % (02/06/23 7:48 PM) 93 % *L* (02/06/23 4:00 PM) 93 % *L* (02/06/23 8:14 AM) Pulse Rate [55-90 bpm] 75 bpm (02/06/23 7:48 PM) 82 bpm (02/06/23 4:00 PM) 76 bpm (02/06/23 8:14 AM) Body Mass Index [18.5-24.99 kg/m2] 38.79 kg/m2 *>HHI* (02/05/23 4:46 PM) 38.79 kg/m2 *>HHI* (02/05/23 4:12 PM) 35.24 kg/m2 *>HHI* (02/05/23 7:37 AM) Blood Pressure [90-138/55-84 mm Hg] 139/75mm Hg *H* (02/06/23 7:48 PM) 126/85mm Hg (02/06/23 4:00 PM) 106/70mm Hg (02/06/23 8:14 AM) Respiratory Rate [16-30 br/min] 24 br/min (02/06/23 10:58 PM) 19 br/min (02/06/23 7:48 PM) 18 br/min (02/06/23 6:43 PM) Temperature [96.8-100.4 DegF] 97.6 DegF (02/06/23 10:58 PM) 97.6 DegF (02/06/23 7:48 PM) 97.5 DegF (02/06/23 4:37 PM) Liters per Minute 4 L/min (02/06/23 7:48 PM) 4 L/min (02/06/23 4:00 PM) 3 L/min (02/06/23 8:14 AM) Mode of Delivery (Oxygen) Nasal cannula (02/06/23 7:48 PM) Nasal cannula (02/06/23 8:14 AM) Room air (02/06/23 4:45 AM) Blood pressure sites Arm, right (02/06/23 7:48 PM) Arm, right (02/06/23 4:00 PM) Arm, right (02/06/23 8:14 AM) Temperature Route Oral (02/06/23 7:48 PM) Oral (02/06/23 4:37 PM) Axillary (02/06/23 8:14 AM) Dry Weight 129.9 kg (02/05/23 4:46 PM) 118 kg (02/05/23 7:37 AM) 118 kg (02/05/23 3:29 AM) Weight Obtained Via Patient/family stated (02/05/23 3:02 AM) Dry Weight Obtained Via Patient/family stated (02/05/23 3:02 AM) Social History Social History Type Response [...] Code MRI Safety Implantable Status 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 [id number] Unknown [id number] Unknown 03/11/21 Unknown Unknown Active GS1 History and physical note * Isac HENDERSON, Suzanne Rodrigues: PERFORM Event Display: History and Physical Hospital Authored Date: [id number] Patient: ??VAHID TO ? Age:??42 Years?Sex:??Male?:??1980?? Chief Complaint/Reason for Consultation SOB and all over pain History of Present Illness This is 42 years old gentleman with [...] medication because a side effect of tardive??dyskinesia. Review of Systems Feeling unwell Nonproductive cough Chest tightness, wheezing, shortness of breath Patient denies overt aspiration Chronic leg edema Chronic pain Patient denies??nausea vomiting Chronic weight gain Patient denies sick contact No new skin rash Objective Measurements?? Height: 183 cm (02/05/23) Weight: 129.9 kg (02/05/23) Dry Weight: 118 kg (02/05/23) Body Mass Index:??38.79 kg/m2??Critical (02/05/23) ? Vital Signs?? Temperature: 98.2 DegF (02/05/23 16:12:00) Temperature Route: Oral (02/05/23 16:12:00) Pulse Rate: 88 bpm (02/05/23 16:12:00) Respiratory Rate: 20 br/min (02/05/23 16:45:00) Systolic Blood Pressure: 116 mm Hg (02/05/23 16:12:00) Diastolic Blood Pressure: 74 mm Hg (02/05/23 16:12:00) Blood pressure sites: Arm, right (02/05/23 16:12:00) Mean Arterial Pressure: 88 mm Hg (02/05/23 16:12:00) Pulse Pressure: 42 mm Hg (02/05/23 16:12:00) Oxygen Saturation:??93 %??Low (02/05/23 16:12:00) Liters per Minute: 3 L/min (02/05/23 16:12:00) Mode of Delivery (Oxygen): Nasal cannula (02/05/23 16:12:00) Early Warning Score: 3 (02/05/23 16:46:24) ? Physical Exam ?Gen; mild tachypnea,??morbid obese??young male,??poor personal hygiene, cooperating with exam ?HEENT; no facial asymmetry, poor dentition, no JVD ?Lungs; decreased breath sound with??scattered rhonchi ?Cardiac; RRR, no M/R/G ?Abdomen; soft nontender, nondistended, normal bowel sounds ?Extremity;??chronic??lymphedema?Neuro exam; alert oriented x3, CN 2-12 normal ?Mood;??slightly anxious ?Skin;??multiple??superficial skin scabs at the lower extremity ?Musculoskeletal;??no acute finding, no signs of tardive dyskinesia Assessment/Plan Diagnoses Acute hypoxemic respiratory failure ??(J96.01) Aspiration pneumonia ??(J69.0) Bilateral pneumonia ??(J18.9) Chronic pain syndrome ??(G89.4) GERD (gastroesophageal reflux disease) ??(K21.9) Generalized anxiety disorder ??(F41.1) Hypothyroidism ??(E03.9) Normocytic normochromic anemia ??(D64.9) Polysubstance dependence ??(F19.20) Retention of urine ??(R33.9) Schizoaffective disorder, bipolar type ??(F25.0) Severe obesity (BMI 35.0-39.9) with comorbidity ??(E66.01) ?? Assessment:??This is a 42 years old gentleman with schizophrenia, lymphedema,??hypothyroidism, generalized anxiety disorder,??and asthma. Patient is hospitalized for aspiration pneumonia, acute hypoxic??respiratory?failure. ?? Aspiration pneumonia (J69.0):??: ?? Bilateral pneumonia (J18.9):??: ?? Acute hypoxemic respiratory failure (J96.01):??Highly suspect aspiration pneumonia??due to multiplesedatives, opioid use.??COVID-19 testing negative. Plan Start patient on prednisone 40 mg daily DuoNeb Continue??antibiotic treatment including??azithromycin and Zosyn Check MRSA nasal swab, urine??Legionella antigen, streptococcal antigen Oxygen support Hold Lasix ?? Polysubstance dependence (F19.20):??: ?? Chronic pain syndrome (G89.4):??Continue Suboxone,??avoid Xanax.?Patient may receive low-dose Ativan for anxiety ?? GERD (gastroesophageal reflux disease) (K21.9):??Continue PPI ?? Generalized anxiety disorder (F41.1):??Continue pregabalin ?? Hypothyroidism (E03.9):??Continue Synthroid ?? Normocytic normochromic anemia (D64.9):??Noted??K ?? Retention of urine (R33.9):??Patient required temporary Mccullough catheter??due to urinary retention. Continue home medication??Flomax.??Will discontinue Mccullough catheter ?? Schizoaffective disorder, bipolar type (F25.0):??Continue Depakote,??aripiprazole, buspirone, benztropine. Patient self report not able to tolerate from group visiting due to tardive dyskinesia, I request??psychiatric evaluation. ?? Severe obesity (BMI 35.0-39.9) with comorbidity (E66.01):??Noted ?? VTE Prophylaxis:??Love:??nox ?VTE Prophylaxis Assessment:??Risk Level documented as Low Risk ?? Code Status:??Full code ?Order Code Status:??Code Status Ordered ?? Ongoing Medical Necessity:??Acute??respiratory failure ?? Discharge Planning:??To be determined ? CPT 84310;??total preparation time 70 minutes was time spent at the bedside??and on the unit, time spent coordinating care with ER physician (consulting physician), review of the record, diagnostic as well as patient education This documentation was prepared using the [employer] voice recognition system. Please forgive any typographical, punctuation or contextual errors.? Histories Allergies Allergies ?(Active and Proposed Allergies [...] Father: Alcoholism ? Travel History Travel Outside [facility]: No ?? Medications Home Medications Acetaminophen/Codeine (acetaminophen-codeine 300 mg-30 [...] Mouth?Daily?for 14?Days?TAKE ONE TABLET BY MOUTH DAILY Methocarbamol (methocarbamol 500 mg oral tablet)?1?tab(s)?500?Milligram?By Mouth?3 times a day?as needed?muscle spasm?for 10?Days Montelukast (montelukast 10 mg oral tablet)?10?Milligram?1?tablet?By Mouth?Daily [...] COUNT & DIFF WBC 8.6 k/mm3 ()?? 02/05/2023 04:30 RBC 3.54 m/mm3 (Low)?? 02/05/2023 04:30 Hgb 9.7 Gm/dL (Low)?? 02/05/2023 04:30 Hct 29.6 % (Low)?? 02/05/2023 04:30 MCV 83.6 femtoliters ()?? 02/05/2023 04:30 MCH 27.4 pg ()?? 02/05/2023 04:30 MCHC 32.8 g/dL (Low)?? 02/05/2023 04:30 Platelet Count 203 k/mm3 ()?? 02/05/2023 04:30 RDW-SD 51.0 femtoliters (High)?? 02/05/2023 04:30 MPV 10.4 femtoliters ()?? 02/05/2023 04:30 Nucleated RBC (Automated) 0.0 #/100 WBC'S ()?? 02/05/2023 04:30 Abs. NRBC 0.0 k/mm3 ()?? 02/05/2023 04:30 Abs. Neut 7.0 k/mm3 ()?? 02/05/2023 04:30 Abs. Lymph 0.9 k/mm3 ()?? 02/05/2023 04:30 Abs. [place] 0.4 k/mm3 ()?? 02/05/2023 04:30 Abs. Eo 0.3 k/mm3 ()?? 02/05/2023 04:30 Abs. Baso 0.0 k/mm3 ()?? 02/05/2023 04:30 Neut % 81.4 % (High)?? 02/05/2023 04:30 Lymph % 10.4 % (Low)?? 02/05/2023 04:30 [place] % 4.2 % (Low)?? 02/05/2023 04:30 Eos % 3.4 % ()?? 02/05/2023 04:30 Baso % 0.3 % ()?? 02/05/2023 04:30 Imm Gran 0.3 % ()?? 02/05/2023 04:30 Abs. Imm Gran 0.0 k/mm3 ()?? 02/05/2023 04:30 ?? CHEM GENERAL Sodium 135 mmol/L ()?? 02/05/2023 04:30 Potassium 4.3 mmol/L ()?? 02/05/2023 04:30 Chloride 95 mmol/L (Low)?? 02/05/2023 04:30 Bicarbonate Level 31 mmol/L (High)?? 02/05/2023 04:30 Anion Gap 9 ()?? 02/05/2023 04:30 Glucose Level 153 mg/dL (High)?? 02/05/2023 04:30 BUN 27 mg/dL (High)?? 02/05/2023 04:30 Creatinine-Blood 0.9 mg/dL ()?? 02/05/2023 04:30 Estimated GFR Creatinine 111 ML/MIN/1.73 M2 ()?? 02/05/2023 04:30 Calcium 8.8 mg/dL ()?? 02/05/2023 04:30 Protein, Total 6.5 Gm/dL ()?? 02/05/2023 04:30 Albumin 3.5 Gm/dL ()?? 02/05/2023 04:30 AG Ratio 1.2 ()?? 02/05/2023 04:30 Alkaline Phosphatase 172 units/L (High)?? 02/05/2023 04:30 Lipase 11 units/L (Low)?? 02/05/2023 04:30 AST (SGOT) 64 units/L (High)?? 02/05/2023 04:30 ALT (SGPT) 64 units/L (High)?? 02/05/2023 04:30 Bilirubin, Total 0.3 mg/dL ()?? 02/05/2023 04:30 Lactate 1.6 mmol/L ()?? 02/05/2023 04:30 ?? HEME OTHER Hold Blue Top SPECIMEN DISCARDED AFTER 4 HOURS. ()?? 02/05/2023 04:30 ?? MISC. CHEMISTRY Hold Green Top SPECIMEN DISCARDED AFTER 1 WEEK ()?? 02/05/2023 04:30 Hold Gel Top SPECIMEN DISCARDED AFTER 1 WEEK ()?? 02/05/2023 04:30 ?? URINE OTHER Est Creatinine Clearance 119.92 mL/min ()?? 02/05/2023 04:56 ?? VIROLOGY Influenza A PCR NEGATIVE ()?? 02/05/2023 03:12 Influenza B PCR NEGATIVE ()?? 02/05/2023 03:12 RSV PCR NEGATIVE ()?? 02/05/2023 03:12 COVID-19 PCR Specimen Source NASAL ()?? 02/05/2023 03:12 COVID-19 PCR Result NEGATIVE ()?? 02/05/2023 03:12 ? Imaging(s) ?CT Chest W/ Contrast ?? 02/05/2023 06:05??by Felicitas Lacey MD ?Diffuse bilateral airspace and groundglass opacities, including areas of consolidation with air bronchograms. Consider infection such as COVID 19 pneumonia. Pulmonary hemorrhage or asymmetric pneumonia is not excluded but is considered less likely based ondistribution and incomplete subpleural sparing. No pleural effusions. ?? Mildly enlarged mediastinal and hilar lymph nodes, markedly increased in number. These can be reactive. ? Hospital Progress note * Anna Roberts: PERFORM Event Display: Progress Note Hospital Authored Date: Patient: ??VAHID TO ? Age:??42 Years?Sex:??Male?:??1980?? Notified by RN that EMS is here to take pt to [facility] but concerned that pt is having stroke like symptoms. They state they know him and this is not his baseline. On exam pt is awake and able to conversewith??this telegraphic typewriter operator,??but will fall asleep if stop talking. He has slurring speech and has??mild right sided weakness (4/5) in the arm and leg compared to left (5/5). No pronator drift. Facial nerves intact. No facial droop. Pupils equal round small, but reactive to light. He is alert and oriented toperson, place, and time. He has received Ativan, Lyrica, and Suboxone at 2130. Per nurse pt has been like this all??day without any acute changes. Low suspicion for a stroke at this time due to no acu te changes since this morning. Did just receive sedating medications which could be causing his increased lethargy. EMS concerned so will obtain an ABG to rule out CO2 retention. * Anna Roberts: PERFORM Event Display: Progress Note Hospital Authored Date: ABG back with CO2 55, O2 82, and bicarb 36. No need for BIPAP. Discussed with EMS low suspicion forstroke. Mechanical Technologist also evaluated pt who agrees with assessment. EMS also agrees and will take pt to [facility]. * Sammy Traore RN: PERFORM, SIGN, VERIFY, SIGN, MODIFY Event Display: Progress Note Hospital Authored Date: Patient: VAHID TO Age: 42 years Sex: Male : 1980 Associated Diagnoses: None Author: Sammy Traore RN Findings Evaluation Patient was being picked up by [facility] and they voiced concerns of possible stroke due to patient;s speech and changes from baseline. CHACHA Suarez Assessed patient and ordered ABG, performed neuro exam. Awaiting ABG result nad then transport will resume as scheduled.. Discharge Information Case Management Discharge Plan : Case Management Discharge Plan Data 01/30/2023 18:10 EST Discharge Level of Care at Discharge Correction Fac/Police/Longterm 01/30/2023 10:22 EST Discharge Level of Care at Discharge Correction Fac/Police/Longterm * Sammy Traore RN: PERFORM Event Display: Progress Note Hospital Authored Date: ABG Resulted. CHACHA Suarez and MD Jerome reviewed. ABG deemed acceptable for patient to be transferred. Transport team accepted result. transfer of care established. * Prisca Meng RN: MODIFY, SIGN, PERFORM, SIGN, VERIFY Event Display: Progress Note Hospital Authored Date: Patient: VAHID TO Age: 42 years Sex: Male : 1980 Associated Diagnoses: None Author: Prisca Meng RN Findings Problem Related to Alteration in Respiratory Function (new) : Alteration in Respiratory Function/new 02/06/2023 17:00 EST Alteration in Resp Status Related to Asthma Goals & Outcomes, Respiratory Pt will maintain/resume baseline physical assessment, Pt will notdevelop complications r/t mechanical ventilation, Pt will maintain/resume normal fluid/electrolyte balance, Pt will demonstrate proper technique w/self care procedures Interventions, Respiratory Initiate pulmonary rehab nurse consult, Monitor sputum color & consistency. Report changes to MD, Teach/encourage use of incentive spirometer, Teach the proper use of inhalers, Teach Pt/caregiver Smoking cessation education, Teach purse lip breathing as needed for breathing retraining Goals/Interventions, Respiratory Yes Respiratory, Problem Start 02/05/2023 21:00 Reviewed Plan with, Respiratory Patient Patient Progression, Respiratory Patient progressing according to plan . Nursing Data Respiratory/Pulmonary Data. 02/06/2023 18:00 EST Treatment Given Updraft Nebulizer Therapy/MDI Mode of delivery (treatment) Face mask Patient reactions None Patient tolerance Good Area(s) of concentration All lobes Duration/minutes 20 minutes Modality (CPT) Via bed . Vital Signs : VITAL SIGNS SECTION 02/06/2023 19:48 EST Temperature 97.6 DegF Temperature Route Oral Pulse Rate 75 bpm Respiratory Rate 19 br/min Systolic Blood Pressure 139 mm Hg H Diastolic Blood Pressure 75 mm Hg Blood pressure sites Arm, right Mean Arterial Pressure 96 mm Hg Pulse Pressure 64 mm Hg Oxygen Saturation 98 % Liters per Minute 4 L/min Mode of Delivery (Oxygen) Nasal cannula . Pain Data : PAIN SECTION 02/05/2023 13:27 EST Pain Location Head 1 - 10 Pain Scale Score 8 Pain relief acceptable Yes . Evaluation Pt alert and oriented, demanding. yells out for help at times. Pt has garbled sppech, unable to comprehend at times. Pt desat to 89-90on 4L NC this evening, States he can't breath, increased suplemental O2 to 4L, sats 93%. exp wheezes to b/l lungs. neb tx given by RT. Pt moved into a therapeutic bed. MD at bedside to assess. Pt retaining urine, bladder scan showed 1840cc in the bladder, straight cathed pt and removed 2100cc of urine.mccullough placed at 1830 today. draining appropriately. Pt on Iv abx. Fall precaution and purposeful safety rounding maintaining. Pt being transferred to [facility], RN-RN report called at 1940. . Discharge Information Case Management Discharge Plan : Case Management Discharge Plan Data 01/30/2023 18:10 EST Discharge Level of Care at Discharge Correction Fac/Police/Longterm 01/30/2023 10:22 EST Discharge Level of Care at Discharge Correction Fac/Police/Longterm Consult note * Serene HENDERSON, Veda Kendrick: PERFORM, SIGN, VERIFY Event Display: Consultation Note Authored Date: Patient: VAHID TO Age: 42 years Sex: Male : 1980 Associated Diagnoses: None Author: Veda Cast MD INFECTIOUS DISEASES CONSULTATION NOTE Date: _ Requesting Attending/Provider: _Suzanne Chau Reason for Consult: _shortness of breath,infiltrates Source of Information: CIS, patient History of Present Illness ([id number]: HPI ???4): The patient is a _ 42 year-old _ with a past medical history of _schizoaffective disorder who presents with shortness of breath and cough for last seven days. He has intermittently productive sputum,yellow. He has MRSA bacteremia 02/05 and MRSA concern lungs as well'. He has patchy aspiration pneumonia. He is more short of breath today Past Medical and Surgical History: _ Schizoaffective disorder with violent tendencies Patient reports asthma Recent Antimicrobials: none -_ Medications: Reviewed Antimicrobial Allergies: No known antimicrobial allergies. Family History: Noncontributory to this current admission. Social History: _. Denies history of tobacco, heavy alcohol, and illicit drug use. Review of Systems (74476: 2-9 ROS; 78480/52070: 10 ROS): 10-point review of systems fully reviewed and negative aside from what is listed above in the HPI. Medication List MED LIST (Selected) Inpatient Medications Ordered ARIPiprazole 15 mg oral tablet: 30 mg, Tablet, By Mouth, Daily, Routine, 02/05/23 9:47:00 EST Acetaminophen Tablet: 650 mg, Tablet, By Mouth, Every 4 hours, PRN for Pain , Mild, Temperature Greater than 100.5, Routine, 02/05/23 8:08:00 EST Albuterol 0.5% inhalation sadia: 2.5 mg, 0.5 mL, Inhalation Solution, Neb, 4 times a day for 72 hr, Routine, 02/06/23 17:00:00 EST, Physician Stop, Stop date 02/09/23 16:59:00 EST Azithromycin IVPB: 500 mg, in 250 mL D5%W, IVPB, Injection, Every 24 hours for 5 days, Indicated for: Pneumonia Community Acquired, Routine, 02/06/23 8:00:00 EST, Stop date 02/11/23 7:59:00 EST ChlorproMAZINE Tablet: 150 mg, Tablet, By Mouth, 3 times a day, Routine, 02/05/23 11:00:00 EST Duoneb Inhalation Solution: 1 vials, Inhalation Solution, BAND Nebulizer, Every 4 hours, PRN for Wheezing/Shortness of Breath, Routine, 02/05/23 8:13:00 EST Enoxaparin Inj: 40 mg, Injection, Subcutaneous Injection, Every 24 hours, Routine, 02/06/23 10:00:00 EST Fioricet Tablet: 2 tablet, Tablet, By Mouth, 2 times a day, PRN for Headache, Routine, 02/05/23 13:55:00 EST GuaiFENEsin /Dextromethorphan Liquid: 10 mL, Syrup, By Mouth, 4 times a day, Routine, 02/05/23 9:00:00 EST Haldol LACTATE Inj: 5 mg, Injection, IV Push Slowly, Every 8 hours, PRN for Other, self harm or aggression, Routine, 02/05/23 9:34:00 EST Lactulose Syrup: 30 mL, Syrup, By Mouth, Daily at bedtime, PRN for Constipation, Routine, 02/05/23 8:08:00 EST Maalox Plus Liquid: 30 mL, Suspension, By Mouth, Every 4 hours, PRN for Dyspepsia, Routine, 02/05/23 8:08:00 EST Milk of Magnesia Liquid: 30 mL, Suspension, By Mouth, Every 4 hours, PRN for Constipation, Routine,02/05/23 8:08:00 EST Ondansetron Inj: 4 mg, Injection, IV Push, Every 6 hours, PRN for Nausea & Vomiting, Routine, 02/05/23 8:08:00 EST SoluMedrol Inj: 40 mg, Injection, IV Push Slowly, 2 times a day, Routine, 02/06/23 21:00:00 EST Suboxone 8 mg-2 mg Sublingual Film: 1 film, Film, Sublingual, Daily, JAZLYN, 02/05/23 10:52:00 EST Vancomycin IVPB: 1,500 mg, IVPB, Injection, Every 12 hours, Infuse over 60 to 90 minutes, Indicatedfor: Pneumonia Community Acquired, Routine, 02/06/23 12:00:00 EST, Stop date 03/11/23 11:59:00 EST Zosyn Extended IVPB: 3.375 Gm, IVPB, Injection, Every 8 hours, Infuse over 4 hours., Indicated for:Pneumonia Aspiration, Routine, 02/05/23 14:00:00 EST albuterol CFC free 90 mcg/inh inhalation aerosol: 180 mcg, 2 puffs, Inhaler, Inhalation, Every 4 hours, PRN for Wheezing/Shortness of Breath, Routine, 02/06/23 9:54:00 EST benztropine 1 mg oral tablet: 1 mg, Tablet, By Mouth, 2 times a day, Routine, 02/05/23 9:38:00 EST busPIRone 10 mg oral tablet: 30 mg, Tablet, By Mouth, 2 times a day, Routine, 02/05/23 11:46:00 EST escitalopram 10 mg oral tablet: 20 mg, Tablet, By Mouth, Daily, Routine, 02/05/23 11:47:00 EST levothyroxine 0.025 mg oral tablet: 50 mcg, Tablet, By Mouth, Daily, Routine, 02/06/23 7:00:00 EST montelukast 10 mg oral tablet: 10 mg, Tablet, By Mouth, Daily, Routine, 02/05/23 11:47:00 EST pregabalin 150 mg oral capsule: 150 mg, Capsule, By Mouth, 2 times a day, Routine, 02/05/23 11:48:00 EST tiZANidine 4 mg oral tablet: 4 mg, Tablet, By Mouth, 3 times a day, PRN for Spasm, Routine, 02/05/23 11:48:00 EST Canceled Depakote Sprinkles: 1,000 mg, Capsule, By Mouth, Daily at bedtime, Routine, 02/05/23 21:00:00 EST Depakote Sprinkles: 500 mg, Capsule, By Mouth, Daily in AM, Routine, 02/06/23 9:00:00 EST Completed Ativan 1 mg oral tablet: 1 mg, Tablet, By Mouth, Once, Routine, 02/06/23 20:00:00 EST, Stop date 02/06/23 20:00:00 EST Azithromycin IVPB: 500 mg, in 250 mL NaCl 0.9%, IVPB, Injection, Once, Indicated for: Pneumonia [facility], STAT, 02/05/23 3:55:00 EST, Stop date 02/05/23 3:55:00 EST Bolus NaCL 0.9% 1,000 mL: 1,000 mL, Infusion, IV Infusion, Once, Infuse Bolus over 20 minutes, STAT, 02/05/23 3:54:00 EST Dilaudid Inj: 1 mg, Injection, IV Push Slowly, Once, STAT, 02/05/23 3:54:00 EST, Stop date 233:54:00 EST Lasix Inj: 40 mg, Injection, IV Push Slowly, Once, Routine, 02/06/23 19:00:00 EST, Stop date 02/06/23 19:00:00 EST Vancomycin IVPB: 1 Gm, IVPB, Injection, Once, Indicated for: Pneumonia [facility], STAT,02/05/23 3:55:00 EST, Stop date 02/05/23 3:55:00 EST Zosyn IVPB (ED Only): 3.375 Gm, IVPB, Injection, Once, Indicated for: Pneumonia [facility], STAT, 02/05/23 3:55:00 EST, Stop date 02/05/23 3:55:00 EST acetaminophen-codeine 300 mg-30 mg oral tablet: 1 tablet, Tablet, By Mouth, Once, Routine, 02/06/2317:00:00 EST, Stop date 02/06/23 17:00:00 EST Deleted chlorproMAZINE 50 mg oral tablet: 100 mg, Tablet, By Mouth, Daily at bedtime, Routine, 02/05/23 21:00:00 EST chlorproMAZINE 50 mg oral tablet: 50 mg, Tablet, By Mouth, Daily before lunch, Routine, 02/05/23 11:00:00 EST Discontinued Duoneb Inhalation Solution: 1 vials, Inhalation Solution, BAND Nebulizer, 4 times a day, Routine, 02/05/23 9:00:00 EST LORazepam Tablet: 0.5 mg, Tablet, By Mouth, 3 times a day, PRN for Anxiety, Routine, 02/05/23 8:08:00 EST Mucomyst-10 Inhalation Solution: 2 mL, Inhalation Solution, Neb, 4 times a day for 72 hr, MIX with Albuterol 0.5%, Routine, 02/06/23 17:00:00 EST, Stop date 02/09/23 16:59:00 EST Percocet-5/325 325 mg-5 mg oral tablet: 1 tablet, Tablet, By Mouth, 2 times a day, PRN for Pain , Severe, Routine, 02/05/23 9:53:00 EST Pregabalin Capsule: 200 mg, Capsule, By Mouth, 2 times a day, Routine, 02/05/23 9:50:00 EST Vancomycin IVPB: 1,500 mg, IVPB, Injection, Every 12 hours, Infuse over 60 to 90 minutes, Indicatedfor: Pneumonia Community Acquired, JAZLYN, 02/05/23 22:03:00 EST, Stop date 02/08/23 11:59:00 EST predniSONE 20 mg oral tablet: 40 mg, Tablet, By Mouth, Daily in AM, Routine, 02/05/23 9:00:00 EST Prescriptions Prescribed diclofenac sodium 75 mg oral delayed release tablet: 1 tablet = 75 mg, By Mouth, 2 times a day, PRNPain , Moderate, # 60 tablet, 1 Refills, Maintenance, 01/04/23 15:55:00 EDT, EC Tablet, [facility] #[id number], Partial fill upon patient request if the prescription is for a schedule II opioid drug.... docusate sodium 100 mg oral capsule: 100 mg, 1, capsule, By Mouth, 2 times a day, TAKE ONE CAPSULE BY MOUTH TWO TIMES DAILY, # 60 capsule, Refills 0, Tot. Refills 0, Maintenance, 08/05/22 8:29:00 EDT, Route to Pharmacy Electronically, [facility], Partial fill upon patient r... pregabalin 150 mg oral capsule: 1 capsule = 150 mg, By Mouth, 2 times a day, # 180 capsule, 0 Refills, Maintenance, 01/27/23 10:33:00 EST, Capsule, [facility] #[id number], Partial fill upon patient request if the prescription is for a schedule II opioid drug., 183, cm, 01/27/23... tiZANidine 4 mg oral tablet: See Instructions, PRN, TAKE 1 TABLET BY MOUTH THREE TIMES DAILY FOR 5 DAYS, # 15 tablet, Refills 0, Tot. Refills 0, Maintenance, Spasm, 12/11/22 15:36:00 EDT, Instructions Replace Required Details, Route to Pharmacy Electronically, [facility]... Completed methocarbamol 500 mg oral tablet: 1 tablet = 500 mg, By Mouth, 3 times a day, PRN muscle spasm, for10 days, # 30 tablet, 0 Refills, Acute 02/06/23 10:35:00 EST, 01/27/23 10:35:00 EST, Tablet, [facility] #[id number], Partial fill upon patient request if the prescription is for a... Discontinued ARIPiprazole 15 mg oral tablet: 30 mg, By Mouth, Daily, # 14 tablet, Refills 0, Tot. Refills 0, Maintenance, 09/29/22 15:25:00 EDT, Route to Pharmacy Electronically, [facility] #[id number], Partial fill upon patient request if the prescription is for a schedule II opioid drug.,... chlorproMAZINE 50 mg oral tablet: See Instructions, TAKE ONE TABLET (50MG) BY MOUTH DAILY AT 9AM, 3PM AND TWO TABLETS (100MG) BY MOUTH DAILY AT BEDTIME, # 28 tablet, 1 Refills, Maintenance, 09/29/22 15:25:00 EDT, Tablet, [facility] #[id number], Partial fill upon patient request i... cloNIDine 0.1 mg oral tablet: 0.2 mg, By Mouth, 2 times a day, # 21 tablet, Refills 1, Tot. Refills1, Maintenance, 09/29/22 15:26:00 EDT, Route to Pharmacy Electronically, [facility] #[id number], Partial fill upon patient request if the prescription is for a schedule II opio... levothyroxine 0.025 mg oral tablet: 1 tablet = 25 mcg, By Mouth, Daily, # 90 tablet, 0 Refills, Maintenance, 01/28/23 8:18:00 EST, Tablet, [facility] #[id number], Partial fill upon patient request if the prescription is for a schedule II opioid drug., 183, cm, 01/27/23 10:18:00 EST... Documented Medications Documented ARIPiprazole 30 mg oral tablet: 1 tablet = 30 mg, By Mouth, Daily, 0 Refills, Maintenance, 01/27/2310:26:00 EST, Partial fill upon patient request if the prescription is for a schedule II opioid drug. Senna 8.6 mg oral tablet: 8.6 mg, [...] is for a schedule II opioid drug. docusate sodium 100 mg oral capsule: 100 [...] capsule: 5 mg, 1, capsule, By Mouth, 3 times a day, Refills 0, Maintenance, 01/27/23 10:22:00 EST, Partial fill upon patient request if the prescription is for a schedule II opioiddrug. Review of Systems Review of Systems Constitutional: no chills, no fever. Respiratory: pleuritic chest pain, productive cough. Cardiovascular: no peripheral edema. Gastrointestinal: no abdominal pain. Physical Examination (21584: 2-7 organ systems or comprehensive single system exam; 87606/88456: 8 organ systems or comprehensive single system exam) .VitalsTemperature 97.6 (22:58) Systolic Blood Pressure 139 (19:49) Diastolic Blood Pressure 75 (19:49) Pulse 75 (19:49) SpO2 98 (19:49) Respiratory Rate 24 (22:58) GENERAL: In no acute distress HEENT: Anicteric, no subconjunctival petechiae, moist oral mucosa without lesions or thrush NECK: Neck supple, without cervical lymphadenopathy CARDIOVASCULAR: Regular rate and rhythm. Not able to appreciate any murmurs, rubs, or gallops. No peripheral edema. RESPIRATORY: Lungs clear to auscultation GASTROINTESTINAL: Non-distended, normoactive bowel sounds, non-tender GENITOURINARY: No CVAT MUSCULOSKELETAL: Without joint effusions, no tenderness over spine SKIN: No diffuse rash present, no stigmata of infective endocarditis PSYCHIATRIC: No signs of hallucinations or delusions NEUROLOGICAL: A&Ox3, grossly intact LINES: Results Review General results Microbiology: Impression and Plan Impression: _ Aspiration pneumonia MRSA main component but may have other organisms or atypical. He is quite tachypneic. Schizophrenic with violent tendencies Recommendations: Vancomycin,Zosyn and atypical azithromycin, narrow down future. Would encourage Pulmonary evaluation especially with reported asthma Check for immune deficieny such as HIV Check echo evaluate endocarditis with MRSA bacteremia. -_ Thank you for the consultation. Infectious Diseases will continue to follow the patient with you. Discussed my recommendations with Dr. Chau Note * Sammy Traore RN: PERFORM Event Display: Discharge/Transfer Note Hospital Authored Date: [id number] Nursing Discharge Note Entered On: 02/06/2023 23:47 EST Performed On: 02/06/2023 23:45 EST by Sammy Traore RN Nursing Discharge Note 2 Discharge Comments : See nurse's note and cross note by Sammy Mccormick RN - 02/06/2023 23:47 EST Discharge Time : 02/06/2023 23:30 EST Discharge Level of Care at Discharge : Short-term Acute Inpatient Name of Receiving Short Term Gen Hosp : [facility] Patient Left Unit Via : Ambulance Patient Accompanied Off Unit with : Ambulance/[facility] Personnel Handover Given to Transport Personnel : Yes DC Instructions Provided & Signed by Pt : Yes Patient Understands D/C Instructions : Yes Patient Instructions Discharge Signed : Yes Did Pt have Specialty Bed or Wound Vac : Yes Sammy Traore RN - 02/06/2023 23:45 EST * Isac HENDERSON, Suzanne Rodrigues: PERFORM Event Display: Discharge/Transfer Note Hospital Authored Date: [id number] Patient: ??VAHID TO ? Age:??42 Years?Sex:??Male?:??1980?? Patient Information Discharge Location: Med Surg Primary Care Physician: Not on Staff, PCP Admit Date/Time: 02/05/23 07:39 Discharge Disposition Discharge Disposition: ?? Discharge Diagnosis Bacteremia (R78.81) Aspiration pneumonia (J69.0) Bilateral pneumonia (J18.9) Acute hypoxemic respiratory failure (J96.01) Polysubstance dependence (F19.20) Chronic pain syndrome (G89.4) GERD (gastroesophageal reflux disease) (K21.9) Generalized anxiety disorder (F41.1) Hypothyroidism (E03.9) Normocytic normochromic anemia (D64.9) Retention of urine (R33.9) Schizoaffective disorder, bipolar type (F25.0) Severe obesity (BMI 35.0-39.9) with comorbidity (E66.01) Lymphedema (I89.0) Muscle spasticity (M62.838) Current cannabis vaping on some days (F12.90) Bipolar disorder with depression Chronic pain syndrome GERD (gastroesophageal reflux disease) Generalized anxiety disorder ?? _ Discharge Medications Acetaminophen/Codeine (acetaminophen-codeine 300 mg-30 mg oral [...] MOUTHTHREE TIMES DAILY FOR 5 DAYS?Spasm ? Quality Measures Tobacco Use Treatment:? Medications Started Vancomycin Zosyn Azithromycin IV Solu-Medrol Albuterol nebulizer Therapeutic bed with chest precaution Medications Discontinued Lasix on hold Allergies Allergies ?(Active and Proposed Allergies Only) OLANZapine? (Severity: Unknown severity, Onset: Unknown) sertraline? (Severity: Unknown severity, Onset: Unknown) ?Reactions: Fluoxetine, Fluoxetine Remeron? (Severity: Unknown severity, Onset: Unknown) traZODone? (Severity: Unknown severity, Onset: Unknown) ZyPREXA? (Severity: Unknown severity, Onset: Unknown) Zoloft? (Severity: Unknown severity, Onset: Unknown) ? Hospital Course SOB and all over pain History of Present Illness This is 42 years old gentleman with [...] medication because a side effect of tardive??dyskinesia. [1] Objective Assessment and Plan Assessment:??This is a 42 years old gentleman with schizophrenia, lymphedema,??hypothyroidism, generalized anxiety disorder,??and asthma. Patient is hospitalized for aspiration pneumonia, acute hypoxi c??respiratory??failure??and MRSA bacteremia. ?? Bacteremia (R78.81):??: ?? Aspiration pneumonia (J69.0):??: ?? Bilateral pneumonia (J18.9):??: ?? Acute hypoxemic respiratory failure (J96.01):??Highly suspect aspiration pneumonia??due to multiplesedatives, opioid use.??COVID-19 testing negative,??streptococcal antigen,??Legionella antigen negative, respiratory RVP pending.??Patient denies IVDA. Positive MRSA??nasal swab??and blood culture.?Case discussed with ID as well as Dr. Carrero??from pulmonology. Patient??reported??vaping marijuana 2 weeks before??hospitalization. There is a concern of??acute lung injury due to vaping,??other differential also including??congestive heart failure??due to SBE??as patient has positive blood culture. Plan Patient received prednisone 40 mg??daily in the morning, will receive additional??40 mg of Solu-Medrol IV tonight Patient declined??DuoNeb (due to??psychiatric illness, claims??DuoNeb does not help) Aggressive??pulmonary toileting,??chest percussion by using therapeutic bed, albuterol nebulizer inhaler Continue??antibiotic treatment including??azithromycin and Zosyn,??and??vancomycin, repeat blood culture pending Checked??proBNP, results pending??no prior history of congestive heart failure) ( Consider stat echocardiogram??to rule out congestive heart failure??and vegetation Continue oxygen??4 L/min Transfer to [facility]??for intake care ?? Polysubstance dependence (F19.20):??: ?? Chronic pain syndrome (G89.4):??Continue Suboxone,??avoid Xanax.?Patient may receive low-dose Ativan for anxiety ?? GERD (gastroesophageal reflux disease) (K21.9):??Continue PPI ?? Generalized anxiety disorder (F41.1):??Continue pregabalin ?? Hypothyroidism (E03.9):??Continue Synthroid ?? Normocytic normochromic anemia (D64.9):??Noted? Retention of urine (R33.9):??Patient had a chronic urinary retention,??received straight cath??today,??2100 cc urine removed. Patient will likely need Mccullough catheter??if recurrent urinary retention ?? Schizoaffective disorder, bipolar type (F25.0):??Continue Depakote,??aripiprazole, buspirone, benztropine. Patient self report not able to tolerate from??antipsychotic medication??due to tardive dyskinesia, I request??psychiatric evaluation. ?? Severe obesity (BMI 35.0-39.9) with comorbidity (E66.01):??Noted ?? Lymphedema (I89.0):??Lasix on hold ?? Muscle spasticity (M62.838):??Baclofen as needed ?? Current cannabis vaping on some days (F12.90):??Noted ?? VTE Prophylaxis:??Lovenox ?VTE Prophylaxis Assessment:??VTE Prophylaxis Ordered ? Measurements?? Height: 183 cm (02/06/23) Weight: 129.9 kg (02/05/23) Dry Weight: 129.9 kg (02/05/23) Body Mass Index:??38.79 kg/m2??Critical (02/05/23) ? Vital Signs?? Temperature: 97.5 DegF (02/06/23 16:37:00) Temperature Route: Oral (02/06/23 16:37:00) Pulse Rate: 82 bpm (02/06/23 16:00:00) Respiratory Rate: 20 br/min (02/06/23 08:14:00) Systolic Blood Pressure: 126 mm Hg (02/06/23 16:00:00) Diastolic Blood Pressure:??85 mm Hg??High (02/06/23 16:00:00) Blood pressure sites: Arm, right (02/06/23 16:00:00) Mean Arterial Pressure: 80 mm Hg (02/06/23 04:45:00) Pulse Pressure: 36 mm Hg (02/06/23 08:14:00) Oxygen Saturation:??93 %??Low (02/06/23 16:00:00) Liters per Minute: 4 L/min (02/06/23 16:00:00) Mode of Delivery (Oxygen): Nasal cannula (02/06/23 08:14:00) Early Warning Score: 4 (02/06/23 17:20:54) ? Precautions No Precautions documented.? Mobility & Ambulation Level Mobility & Ambulation Level Activity Assistance: Two person assistance (02/06/23) ?? Therapeutic Activity Therapeutic Activities/Mobility/Balance?? No qualifying data available. ?? . Physical Exam See progress note for detail Pending Results Add On Lab Order ordered on 02/05/2023 Add On Lab Order ordered on 02/06/2023 B Type Natriuretic Peptide ordered on 02/06/2023 Blood Culture ordered on 02/05/2023 Blood Culture ordered on 02/06/2023 Blood Culture #2 ordered on 02/05/2023 Blood Culture #2 ordered on 02/06/2023 Creatinine ordered on 02/07/2023 Respiratory Pathogen Profile, PCR ordered on 02/05/2023 Vancomycin Trough ordered on 02/07/2023 XR Chest Portable ordered on 02/06/2023 Home Health Face to Face ^[facility] Results Discharge Labs BACTERIOLOGY MRSA PCR Result Positive, MRSA target DNA detected. ()?? 02/05/2023 11:18 S Aureus ??PCR Result Positive, SA target DNA detected. ()?? 02/05/2023 11:18 ?? BLOOD COUNT & DIFF WBC 10.9 k/mm3 [...] Lymph 0.9 k/mm3 ()?? 02/06/2023 16:51 Abs. [place] 0.5 k/mm3 ()?? 02/06/2023 16:51 Abs. Eo 0.1 k/mm3 ()?? 02/06/2023 16:51 Abs. Baso 0.0 k/mm3 ()?? 02/06/2023 16:51 Neut % 82.1 % (High)?? 02/06/2023 16:51 Lymph % 8.5 % (Low)?? 02/06/2023 16:51 [place] % 4.5 % ()?? 02/06/2023 16:51 Eos % 0.6 % ()?? 02/06/2023 16:51 Baso % 0.3 % ()?? 02/06/2023 16:51 Imm Gran 4.0 % ()?? 02/06/2023 16:51 Abs. Imm Gran 0.4 k/mm3 ()?? 02/06/2023 16:51 ?? CHEM GENERAL Sodium 138 mmol/L ()?? 02/06/2023 16:51 Potassium 4.7 mmol/L ()?? 02/06/2023 16:51 Chloride 101 mmol/L ()?? 02/06/2023 16:51 Bicarbonate Level 29 mmol/L ()?? 02/06/2023 16:51 Anion Gap 8 ()?? 02/06/2023 16:51 Glucose Level 178 mg/dL (High)?? 02/06/2023 16:51 BUN 14 mg/dL ()?? 02/06/2023 16:51 Creatinine-Blood 0.7 mg/dL ()?? 02/06/2023 16:51 Estimated GFR Creatinine 119 ML/MIN/1.73 M2 ()?? 02/06/2023 16:51 Calcium 9.0 mg/dL ()?? 02/06/2023 16:51 Protein, Total 6.5 Gm/dL ()?? 02/06/2023 16:51 Albumin 3.3 Gm/dL (Low)?? 02/06/2023 16:51 AG Ratio 1.0 ()?? 02/06/2023 16:51 Alkaline Phosphatase 200 units/L (High)?? 02/06/2023 16:51 Lipase 11 units/L (Low)?? 02/05/2023 04:30 AST (SGOT) 39 units/L ()?? 02/06/2023 16:51 ALT (SGPT) 49 units/L (High)?? 02/06/2023 16:51 Bilirubin, Total 0.2 mg/dL ()?? 02/06/2023 16:51 Lactate 1.6 mmol/L ()?? 02/05/2023 04:30 ? HEME OTHER Hold Lavender Top SPECIMEN DISCARDED AFTER 24 HOURS. ()?? 02/06/2023 07:50 Hold Blue Top SPECIMEN DISCARDED AFTER 4 HOURS. ()?? 02/05/2023 04:30 ?? MISC. CHEMISTRY Hold Green Top SPECIMEN DISCARDED AFTER 1 WEEK ()?? 02/05/2023 04:30 Hold Gel Top SPECIMEN DISCARDED AFTER 1 WEEK ()?? 02/06/2023 16:51 Hold Fernando Top SPECIMEN DISCARDED AFTER 1 WEEK ()?? 02/06/2023 16:51 ? SEROLOGY INF DISEASE Legionella pneumophila Antigen NEGATIVE ()?? 02/05/2023 11:28 S. Pneumococcus Urinary Ag NEGATIVE ()?? 02/05/2023 11:28 ?? URINE OTHER Est Creatinine Clearance 154.18 mL/min ()?? 02/06/2023 17:20 ? VIROLOGY Influenza A PCR NEGATIVE ()?? 02/05/2023 03:12 Influenza B PCR NEGATIVE ()?? 02/05/2023 03:12 RSV PCR NEGATIVE ()?? 02/05/2023 03:12 COVID-19 PCR Specimen Source NASAL ()?? 02/05/2023 03:12 COVID-19 PCR Result NEGATIVE ()?? 02/05/2023 03:12 ? Imaging(s) ?CT Chest W/ Contrast ?? 02/05/2023 06:05??by Felicitas Lacey MD ?Diffuse bilateral airspace and groundglass opacities, including areas of consolidation with air bronchograms. Consider infection such as COVID 19 pneumonia. Pulmonary hemorrhage or asymmetric pneumonia is not excluded but is considered less likely based ondistribution and incomplete subpleural sparing. No pleural effusions. ?? Mildly enlarged mediastinal and hilar lymph nodes, markedly increased in number. These can be reactive. ? 35??minutes spent on discharge [1]??Initial Evaluation Note; Suzanne Chau MD 02/05/2023 16:55 EST * Suzanne Chau MD: PERFORM Event Display: Discharge/Transfer Note Hospital Authored Date: proBNP elevated 1400, baseline 30. ??Lasix 40 mg IV was given Patient Care team information Care Team Personnel Name: Sammy Traore RN Position: S RN Member Role: Primary Care Nurse Name: Konrad Gallegos RN Position: [facility] ED RN W/OE and Tasks Member Role: Primary Care Nurse Name: Anna Weaver RN Position: [facility] RN Member Role: Primary Care Nurse Name: Niki Bright RN Position: [facility] RN Member Role: Primary Care Nurse Name: Fang Che Position: [facility] RN Member Role: Primary Care Nurse Name: Trisha Alamo RN Position: [facility] RN Supv Member Role: Primary Care Nurse Name: Rita Son NP Position: [facility] Associate Professional Member Role: Primary Care Nurse Address: Address: [address] [facility] [place] [address]- [place] Name: Sol Chanel RN Position: [facility] RN Member Role: Primary Care Nurse Name: Helene Pérez RN Position: [facility] RN Member Role: Primary Care Nurse Name: Brenda Cuba RN Position: [facility] HBO Wound Member Role: Primary Care Nurse Name: Kell Alonso RN Position: [facility] RN Member Role: Primary Care Nurse Name: Richa Clay LPN Position: [facility] RN Member Role: Primary Care Nurse Name: Prisca Meng RN Position: [facility] RN Member Role: Primary Care Nurse Name: Екатерина Chacko RN Position: [facility] RN Member Role: Primary Care Nurse Name: Not on Staff, PCP Position: [facility] Physician (General Medicine) Member Role: PCP Name: Anna Oconnor RN Position: [facility] General Operator Member Role: Primary Care Nurse Name: Kip Gonzalez RN Position: [facility] RN Member Role: Primary Care Nurse Address: Address: [address] [place] [address]- [place] Name: April Acuña RN Position: [facility] RN Member Role: Primary Care Nurse Name: Li Esquivel RN Position: [facility] General Operator Member Role: Primary Care Nurse Name: Tunde White MD Position: [facility] Physician - [facility] Member Role: Lifetime Consulting Physician Address: Address: [address] [place] [address]- [place] Name: Betty GUERRERO Attending Position: [facility] ED Medicine MD Name: Nelson Raymond Position: [facility] Member Role: Biostatistics Manager Name: Guillermo Cannon Position: [facility] Member Role: Patient Care Provider Care Team Related Persons Name: FORREST TO Address: home [address] [place] [address] [place] [address] Name: MÓNICA CREWS
--- OUTSIDE RECORDS SUMMARY | 2023-05-04 10:54 | XMS_ITS | Continuity of Care Document ---
Author Name Unknown Organization [facility] Address [address] [place] [address]- Care Team Providers Care Can Crimper Name Role Phone Marvin Mac MD Primary Care Physician Encounter [facility] Date(s): 01/03/23 - 01/04/[address] [address]- Discharge Disposition: A-D/C Home Attending Physician: Bal Bassett DO Admitting Physician: Bal Bassett DO Referring Physician: Not on Staff, Referring MD Allergies, Adverse Reactions, Alerts Substance Reaction Severity Status Zoloft Active Remeron Active traZODone Active ZyPREXA Active Immunizations Given and Recorded Vaccine Date Status Refusal Reason tetanus/diphtheria/pertussis, acel(Tdap) 04/09/22 Recorded tetanus/diphtheria/pertussis, acel(Tdap) 05/18/18 Recorded tetanus/diphtheria/pertussis, acel(Tdap) 12/19/16 Recorded [id number] 12y+ bivalent booster vax 02/11/22 Recorded SARS-CoV-2 [...] Maintenance, 09/29/22 15:25:00 EDT,Route to Pharmacy Electronically, [facility] #[id number], Partial fill upon patient request ifthe prescription is for a schedule II opioid drug.,... Start Date: 09/29/22 Stop Date: 10/13/22 Status: Ordered buprenorphine-naloxone 8 mg-2 mg sublingual film 2 film, Sublingual, Daily, # 14 film, 1 Refills, Maintenance, 09/29/22 15:26:00 EDT, Film, [facility] #[id number], Partial fill upon patient request if the [...] 1 Refills, Maintenance, 09/29/22 15:25:00 EDT, Tablet, [facility] #[id number], Partial fill upon patient request i... Start Date: 09/29/22 Status: Ordered cloNIDine 0.1 mg oral tablet 0.2 mg, By Mouth, 2 times a day, # 21 tablet, Refills 1, Tot. Refills 1, Maintenance, 09/29/22 15:26:00 EDT, Route to Pharmacy Electronically, [facility] #[id number], Partial fill upon patient request if the prescription is for a schedule II opio... Start Date: 09/29/22 Stop Date: 10/13/22 Status: Ordered diclofenac sodium 75 mg oral delayed release tablet 1 tablet = 75 mg, By Mouth, 2 times a day, PRN Pain , Moderate, # 60 tablet, 1 Refills, Maintenance, 01/04/23 15:55:00 EDT, EC Tablet, [facility] #[id number], Partial fill upon patient request if the prescription is for a schedule II opioid drug.... Start Date: 01/04/23 Status: Ordered docusate sodium 100 mg oral capsule 100 mg, 1, capsule, By Mouth, 2 times a day, TAKE ONE CAPSULE BY MOUTH TWO TIMES DAILY, # 60 capsule, Refills 0, Tot. Refills 0, Maintenance, 08/05/22 8:29:00 EDT, Route to Pharmacy Electronically, [facility], Partial fill upon patient r... Start Date: 08/05/22 Status: Ordered escitalopram 20 mg oral tablet 1 tablet = 20 mg, By Mouth, Daily, # 14 tablet, 0 Refills, Maintenance, 09/29/22 15:28:00 EDT, Tablet, [facility] #[id number], Partial fill upon patient request if the prescription is for a schedule II opioid drug., 182.88, cm, 09/29/22 14:33:00... Start Date: 09/29/22 Stop Date: 10/13/22 Status: Ordered furosemide 80 mg oral tablet 80 mg, 1, tablet, By Mouth, Daily, TAKE ONE TABLET BY MOUTH DAILY, # 14 tablet, Refills 1, Tot. Refills 1, Maintenance, 08/05/22 8:30:00 EDT, Route to Pharmacy Electronically, [facility], Partial fill upon patient request if the prescrip... Start Date: 08/05/22 Stop Date: 09/02/22 Status: Ordered levothyroxine 0.05 mg oral tablet 1 tablet = 50 mcg, By Mouth, Daily, TAKE ONE TABLET BY MOUTH DAILY, # 14 tablet, 1 Refills, Maintenance, 08/05/22 8:30:00 EDT, Tablet, [facility], Partial fill upon patient request if the prescription is for a schedule II opioid drug., 1... Start Date: 08/05/22 Stop Date: 09/02/22 Status: Ordered morphine 15 mg oral tablet, immediate release 1 tablet = 15 mg, By Mouth, Every 4 hours, PRN as needed for pain, for 3 days, # 5 tablet, 0 Refills, Acute 01/07/23 4:59:00 EDT, 01/04/23 4:59:00 EDT, Tablet, [facility] #[id number], Partial fill upon patient request if the prescription is for a... Start Date: 01/04/23 Stop Date: 01/07/23 Status: Ordered MorPHINE Immediate Release Tablet 15 mg, Tablet, By Mouth, Every 4 hours, PRN for Pain , Moderate, Routine, 01/04/23 3:24:00 EDT Start Date: 01/04/23 Stop Date: 01/04/23 Status: Discontinued Percocet-5 Tablet 1 tablet, Tablet, By Mouth, Once, STAT, 01/04/23 1:08:00 EDT, Stop date 01/04/23 1:08:00 EDT Start Date: 01/04/23 Stop Date: 01/04/23 Status: Completed pregabalin 100 mg oral capsule 1 capsule = 100 mg, By Mouth, 2 times a day, # 180 capsule, 0 Refills, Maintenance, 12/29/22 14:00:00 EDT, Capsule, [facility] #[id number], Partial fill upon patient request if the prescription is for a schedule II opioid drug., 174, cm, 11/22/22... Start Date: 12/29/22 Status: Ordered Protonix 20 mg oral delayed [...] Replace Required Details, Route to Pharmacy Electronically, [facility]... Start Date: 12/11/22 Status: Ordered Problem [...] to CAB a few times 04/28/2018: started [facility] bup/nal program Last Assessment & Plan: On suboxone 8-2mg bid. Per pt would like to change to methadone. Reports had been getting approx 4 mos ago. States still having cravings with suboxone- but denies any recent use. 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 5Outside Source Comment: Last Assessment & Plan: Recent inpt psych hospitalization in [facility]. Denies any SI/HI at this time but very anxious about medications. DW pt no dose adjustments at this time and will need to connect with psych at [facility]- no current psych provider. Pt contracts for safety. Pt did come with rx avail- but sh ort on lorazepam. Will fill at this time but ensure has prescriber on d/c. BH met with pt todayand psych referral placed. Administration aware. Vital Signs Most recent to oldest [Reference Range]: 1 2 3 Height 183 cm (01/03/23 10:52 PM) Weight 116 kg (01/03/23 10:52 PM) Oxygen Saturation [94-100 %] 94 % (01/03/23 10:52 PM) Pulse Rate [55-90 bpm] 78 bpm (01/03/23 10:52 PM) Blood Pressure [90-138/55-84 mm Hg] 128/79mm Hg (01/03/23 10:52 PM) Respiratory Rate [16-30 br/min] 20 br/min (01/04/23 3:30 AM) 20 br/min (01/04/23 1:21 AM) 18 br/min (01/03/23 10:52 PM) Temperature [96.8-100.4 DegF] 98.9 DegF (01/03/23 10:52 PM) Mode of Delivery (Oxygen) Room air (01/03/23 10:52 PM) Blood pressure sites Arm, left (01/03/23 10:52 PM) Temperature Route Oral (01/03/23 10:52 PM) Dry Weight 116 kg (01/03/23 10:52 PM) Weight Obtained Via Patient/family state d (01/03/23 10:52 PM) Dry Weight Obtained Via Patient/family s tated (01/03/23 10:52 PM) Social History Social History Type Response [...] Code MRI Safety Implantable Status 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 [id number] Unknown [id number] Unknown 03/11/21 Unknown Unknown Active GS1 Patient Care team information Care Team Personnel Name: Konrad Gallegos RN Position: [facility] ED RN W/OE and Tasks Member Role: Primary Care Nurse Name: Anna Weaver RN Position: [facility] RN Member [...] Role: Primary Care Nurse Address: Address: [address] [place] [address]- [place] Name: Sol Chanel RN [facility] Kell Alonso RN Position: [facility] ED RN W/OE and Tasks Member Role: Primary Care Nurse Name: Richa Clay LPN Position: [facility] RN Member Role: Primary Care Nurse Name: Екатерина Chacko RN Position: [facility] RN Member Role: Primary Care Nurse Name: Marvin Mac MD Position: [facility] Physician - Primary Care Member Role: PCP Address: Address: [address] [place] [address]- [place] Name: Anna Oconnor RN Position: [facility] Health Service Coordinator Member Role: Primary Care Nurse Name: Kip Gonzalez RN Position: [facility] RN Member Role: Primary Care Nurse Address: Address: [address] [place] [address]- [place] Name: April Acuña RN Position: [facility] RN Member Role: Primary Care Nurse Name: Li Esquivel RN Position: [facility] Health Service Coordinator Member Role: Primary Care Nurse Name: Tunde White MD Position: [facility] Physician - [facility] Member Role: Lifetime Consulting Physician Address: Address: [address] [place] [address]- [place] Name: Mansoor Rosas RN Position: [facility] ED RN W/OE and Tasks Member Role: Patient Care Provider Name: Sunitha Vega Position: [facility] Name: Janet Fleming Position: [facility] Name: Bal Bassett DO Position: [facility] ED Medicine MD Member Role: ED Attending Physician Address: Address: [address] [place] [address] [place] [address]- Care Team Related Persons Name: FORREST TO Address: [address] [address] Name: MÓNICA CREWS
--- OUTSIDE RECORDS SUMMARY | 2023-05-04 10:54 | XMS_ITS | Continuity of Care Document ---
Author Name Unknown Organization [facility] Address [address] [place] [address]- Care Team Providers Care Universal Branch Consultant Name Role Phone Not on Staff, PCP Primary Care Physician Unavail able Encounter [facility] Date(s): 01/30/23 - 01/30/[address] [address]- Encounter Diagnosis Chronic pain syndrome(Discharge Diagnosis) - 01/30/23 Lymphedema(Final) - 01/30/23 Bleeding from varicose vein(Final) - 01/30/23 Discharge Disposition: A-D/C Home Attending Physician: Epi Hidalgo DO Admitting Physician: Epi Hidalgo DO Referring Physician: Not on Staff, Referring MD Allergies, Adverse Reactions, Alerts Substance Reaction Severity Status sertraline Fluoxetine Fluoxetine Active Zoloft Active Remeron Active OLANZapine Active traZODone Active ZyPREXA Active Immunizations Given and Recorded Vaccine Date Status Refusal Reason tetanus/diphtheria/pertussis, acel(Tdap) 04/09/22 Recorded tetanus/diphtheria/pertussis, acel(Tdap) 05/18/18 Recorded tetanus/diphtheria/pertussis, acel(Tdap) 12/19/16 Recorded [id number] 12y+ bivalent booster vax 02/11/22 Recorded SARS-CoV-2 [...] Maintenance, 09/29/22 15:25:00 EDT,Route to Pharmacy Electronically, [facility] #[id number], Partial fill upon patient request ifthe prescription [...] 1 Refills, Maintenance, 09/29/22 15:26:00 EDT, Film, [facility] #[id number], Partial fill upon patient request if the [...] 1 Refills, Maintenance, 09/29/22 15:25:00 EDT, Tablet, [facility] #[id number], Partial fill upon patient request i... Start Date: 09/29/22 Status: Ordered cloNIDine 0.1 mg oral tablet 0.2 mg, By Mouth, 2 times a day, # 21 tablet, Refills 1, Tot. Refills 1, Maintenance, 09/29/22 15:26:00 EDT, Route to Pharmacy Electronically, [facility] #[id number], Partial fill upon patient request if the prescription is for a schedule II opio... Start Date: 09/29/22 Stop Date: 10/13/22 Status: Ordered diclofenac sodium 75 mg oral delayed release tablet 1 tablet = 75 mg, By Mouth, 2 times a day, PRN Pain , Moderate, # 60 tablet, 1 Refills, Maintenance, 01/04/23 15:55:00 EDT, EC Tablet, [facility] #[id number], Partial fill upon patient request if the [...] 08/05/22 8:29:00 EDT, Route to Pharmacy Electronically, [facility], Partial fill upon patient r... [...] 0 Refills, Maintenance, 09/29/22 15:28:00 EDT, Tablet, [facility] #[id number], Partial fill upon patient request if the prescription is for a schedule II opioid drug., 182.88, cm, 09/29/22 14:33:00... Start Date: 09/29/22 Stop Date: 10/13/22 Status: Ordered furosemide 80 mg oral tablet 80 mg, 1, tablet, By Mouth, Daily, TAKE ONE TABLET BY MOUTH DAILY, # 14 tablet, Refills 1, Tot. Refills 1, Maintenance, 08/05/22 8:30:00 EDT, Route to Pharmacy Electronically, [facility], Partial fill upon patient request [...] 0 Refills, Maintenance, 01/28/23 8:18:00 EST, Tablet, [facility] #[id number], Partial fill upon patient request if the prescription is for a schedule II opioid drug., 183, cm, 01/27/23 10:18:00 EST... Start Date: 01/28/23 Status: Ordered levothyroxine 0.05 mg oral tablet 1 tablet = 50 mcg, By Mouth, Daily, TAKE ONE TABLET BY MOUTH DAILY, # 14 tablet, 1 Refills, Maintenance, 08/05/22 8:30:00 EDT, Tablet, [facility], Partial fill upon patient request if the prescription is for a schedule II opioid drug., 1... Start Date: 08/05/22 Stop Date: 09/02/22 Status: Ordered methocarbamol 500 mg oral tablet 1 tablet = 500 mg, By Mouth, 3 times a day, PRN muscle spasm, for 10 days, # 30 tablet, 0 Refills, Acute 02/06/23 10:35:00 EST, 01/27/23 10:35:00 EST, Tablet, [facility] #[id number], Partial fill upon patient request if the prescription is for a... Start Date: 01/27/23 Stop Date: 02/06/23 Status: Ordered montelukast 10 mg oral tablet 10 mg, 1, tablet, By Mouth, Daily, Refills 0, Maintenance, 01/27/23 10:25:00 EST, Partial fill uponpatient request if the prescription is for a schedule II opioid drug. Start Date: 01/27/23 Status: Ordered oxyCODONE 5 mg oral tablet 5 mg, Tablet, By Mouth, Once, STAT, 01/30/23 9:16:00 EST, Stop date 01/30/23 9:16:00 EST Start Date: 01/30/23 Stop Date: 01/30/23 Status: Completed pantoprazole 20 mg oral delayed release tablet [...] 0 Refills, Maintenance, 01/27/23 10:33:00 EST, Capsule, [facility] #[id number], Partial fill upon patient request if the [...] Replace Required Details, Route to Pharmacy Electronically, [facility]... Start Date: 12/11/22 Status: Ordered [...] a few times 04/28/2018: started [facility] bup/nal program Last Assessment & Plan: On suboxone 8-2mg bid. Per pt would like to change to methadone. Reports had been getting approx 4 mos ago. States still having cravings with suboxone- but denies any recent use. 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 5Outside Source Comment: Last Assessment & Plan: Recent inpt psych hospitalization in [facility]. Denies any SI/HI at this time but very anxious about medications. DW pt no dose adjustments at this time and will need to connect with psych at [facility]- no current psych provider. Pt contracts for safety. Pt did come with rx avail- but sh ort on lorazepam. Will fill at this time but ensure has prescriber on d/c. BH met with pt todayand psych referral placed. Administration aware. Diagnosis Diagnosis Type Effective Dates Health Status Cl inical Service Informant Chronic pain syndrome Discharge Diagnosis 01/30/23 Non-Specified Vital Signs Most recent to oldest [Reference Range]: 1 2 Oxygen Saturation [94-100 %] 100 % (01/30/23 8:25 AM) Pulse Rate [55-90 bpm] 85 bpm (01/30/23 8:25 AM) Blood Pressure [90-138/55-84 mm Hg] 121/ 68mm Hg (01/30/23 8:25 AM) Respiratory Rate [16-30 br/min] 20 br/mi n (01/30/23 9:52 AM) 20 br/min (01/30/23 8:25 AM) Temperature [96.8-100.4 DegF] 98.1 DegF (01/30/23 8:25 AM) Mode of Delivery (Oxygen) Room air (01/30/23 8:25 AM) Blood pressure sites Arm, left (01/30/23 8:25 AM) Temperature Route Oral (01/30/23 8:25 AM) Social History Social History Type Response [...] Code MRI Safety Implantable Status 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 [id number] Unknown [id number] Unknown 03/11/21 Unknown Unknown Active GS1 [...] Member Role: Primary Care Nurse Address: Address: [address] [place] [address] Name: Sol Chanel RN [facility] Role: PCP Name: Anna Oconnor RN Position: [facility] Sewer Tapper Member Role: Primary Care Nurse Name: Kip Gonzalez RN Position: [facility] RN Member Role: Primary Care Nurse Address: Address: [address] [place] [address]- [place] Name: April Acuña RN Position: [facility] RN Member Role: Primary Care Nurse Name: Li Esquivel RN Position: [facility] Hospital Sewer Tapper Member Role: Primary Care Nurse Name: Tunde White MD Position: [facility] Physician - Behavioral Health Member Role: Lifetime Consulting Physician Address: Address: [address] [place] [address]- Name: Epi Hidalgo DO Position: [facility] Resident Member Role: Admitting Physician Address: Address: [address] [facility] [place] [address]- [place] Name: Aracelis Antoine RN Position: [facility] ED RN W/OE and Tasks Member Role: Patient Care Provider Name: Kathy Wallace Position: [facility] Member Role: Patient Care Provider Name: Giovanny Rubalcava Position: [facility] Resident Member Role: ED Resident Address: Address: [address] [place] [address]- Name: Triston Gutierrez RN Position: [facility] ED RN W/OE and Tasks Member Role: Patient Care Provider Care Team Related Persons Name: FORREST TO Address: home [address] [place] [address] Name: MÓNICA CREWS
--- OUTSIDE RECORDS SUMMARY | 2023-05-04 10:54 | XMS_ITS | Patient Health Record ---
Author Name Unknown Organization [facility] Address [address] [place] [id number] Care Team Providers Care Warehouse Consultant Name Role Phone YESY GALLOWAY Primary Care Provider Mansoor Nelson [phone] REASON FOR REFERRAL No Information SOCIAL HISTORY Sex Assigned At : Social History Observation Description Sex Assigned At Unknown PROBLEMS Problem Type ICD Code Onset Dates Problem Status W/U Status Risk SNOMED Code Notes Problem Iron deficiency anemia (D50.9) Active confirmed Iron deficiency anemia (67606019) Problem Gastritis (K29.70) Active confirmed Gastritis (6866056) Problem Iron deficiency anemia due to chronic blood loss (D50.0) Active confirmed Iron deficiency anemia due to chronic blood loss (697999304) PLAN OF TREATMENT No Information Insurance Providers Payer Name Payer Address Payer Phone Subscriber Number Group Number Insured Name Patient Relationship to Insured Coverage Start Date Coverage End Date MEDICARE OF [place] [address] [place] [id number] VAHID TO Self - patient is the insured MEDICAID OF [facility] [address] [facility] [place] [phone] [id number] VAHID TO Self - patient is the insured
--- OUTSIDE RECORDS SUMMARY | 2023-05-04 10:54 | XMS_ITS | Continuity of Care Document ---
Author Name [facility] Address [address] [place] [address] Organization [facility] Address [address] [place] [address] Allergies, Adverse Reactions, Alerts Allergen Type Severity Reaction Last Updated Verified Status benztropine Allergy Unknown UNKNOWN REACTION May 23, 2022 Y Active fluoxetine Allergy Unknown UNKNOWN REACTION May 23, 2022 Y Active haloperidol Allergy Unknown UNKNOWN REACTION May 23, 2022 Y Active paroxetine Allergy Unknown UNKNOWN REACTION May 23, 2022 Y Active sertraline Allergy Unknown UNKNOWN REACTION May 23, 2022 Y Active valproic acid Allergy Unknown UNKNOWN REACTION May 23, 2022 Y Active Medications Active Medications Medication Dose Units Route Sig Start Date Status Buprenorphine-Naloxone 10 MG Sublingual DAILY May 24, 2022 Active Omeprazole 40 MG Oral DAILY May 24, 2022 Active Levothyroxine 50 MCG Oral EVERY MORNING May 24 Active Buspirone 30 MG Oral TWICE A DAY May 24, 2022 Act ángela Fluticasone Propion-Salmeterol [Wixela Inhub] 1 EACH Inhalation TWICE A DAY May 24, 2022 Activ e Benztropine 1 MG Oral DAILY May 24, 2022 Activ e Montelukast 10 MG Oral DAILY May 24, 2022 Activ e Albuterol Sulfate [Ventolin Hfa] 1 - 2 PUFF Inhalation FOUR TIMES DAILY PRN For Shortness Of Breath May 24, 2022 Active Escitalopram Oxalate 10 MG Oral DAILY May 24 Active Divalproex 500 MG Oral TWICE A DAY June 04, 2022 Ac tive Chlorpromazine 100 MG Oral ONCE DAILY AT BEDTIME June 04, 2022 Active Thiamine Hcl (Vitamin B1) 100 MG Oral DAILY June 04, 2022 Active Clonidine Hcl 0.2 MG Oral THREE TIMES A DAY May Active Pregabalin 50 MG Oral TWICE A DAY June 04, 2022 Ac tive Aripiprazole 30 MG Oral ONCE DAILY A T BEDTIME June 04, 2022 Active Discontinued Medications Medication Dose Units Route Sig Start Date Discontinued Date Status Doxycycline Hyclate 100 MG Oral TWICE A DA Y May 24, 2022 May 29, 2022 Discontinued Divalproex 1000 MG Oral ONCE DAILY AT BEDTIME May 24, 2022 May 29, 2022 Discontinued Clonidine Hcl 0.2 MG Oral TWICE A DAY Hieu h 2022May 29, 2022 Discontinued Methocarbamol 750 MG Oral THREE TIMES A DAY PRN For Muscle Spasm May 24, 2022 May 29, 2022 Discontinued Docusate Sodium 100 MG Oral DAILY Hieu h 2022May 29, 2022 Discontinued Ferrous Sulfate 325 MG Oral DAILY Hieu h 2022May 29, 2022 Discontinued Chlorpromazine 100 MG Oral ONCE DAILY AT BEDTIME May 24, 2022 May 29, 2022 Discontinued Oxycodone 2.5 MG Oral TWICE A DAY PRN For pain May 24, 2022 May 29, 2022 Discontinued Aripiprazole 30 MG Oral DAILY May 132022May 29, 2022 Discontinued Problem List Active Problems Medical Problem Onset Date Status Schizoaffective disorder, bipolar type Active Hypercapnic respiratory failure Active Unspecified mood [affective] disorder Active Encounter for psychiatric assessment Active Bipolar 1 disorder Active Benzodiazepine (tranquilizer) overdose Active Benzodiazepine (tranquilizer) overdose Active Pneumonia Active Inactive/Resolved Problems Medical Problem Onset Date Status Lower extremity cellulitis Inact ángela Folliculitis Inactive Procedures No known history of procedures. Relevant Diagnostic Tests and/or Laboratory Data No known relevant diagnostic tests, laboratory data, and/or discharge summary. Hospital Discharge Instructions No known hospital discharge instructions. Hospital Discharge Medications Medication Dose Units Route Sig Qty Days Order Date Status Instructions Buprenorphine-N aloxone 10 MG Sublingual DAILY May 24, 2022 Active Doxycycline Hyclate 100 MG Oral TWICE A DAY May 24, 2022 Discontinue d Divalproex 1000 MG Oral ONCE DAILY AT BEDTIME May 24, 2022 Discontinue d Omeprazole 40 MG Oral DAILY May 24, 2022 Active Clonidine Hcl 0.2 MG Oral TWICE A DAY May 24, 2022 Discontinue d Methocarbamol 750 MG Oral THREE TIMES A DAY PRN For Muscle Spasm May 24, 2022 Discontinue d Levothyroxine 50 MCG Oral EVERY MORNING May 24, 2022 Active Buspirone 30 MG Oral TWICE A DAY May 24, 2022 Active Fluticasone Propion-Salmet[place] rol 1 EACH Inhalation TWICE A DAY May 24, 2022 Active Benztropine 1 MG Oral DAILY Hieu h 2022 Active Docusate Sodium 100 MG Oral DAILY May 24, 2022 Discontinue d Montelukast 10 MG Oral DAILY Hieu h 2022 Active Albuterol Sulfate 1 - 2 PUFF Inhalation FOUR TIMES DAILY PRN For Shortness Of Breath May 24, 2022 Active Ferrous Sulfate 325 MG Oral DAILY May 24, 2022 Discontinue d Chlorpromazine 100 MG Oral ONCE DAILY AT BEDTIME May 24, 2022 Discontinue d Oxycodone 2.5 MG Oral TWICE A DAY PRN For pain May 24, 2022 Discontinue d Escitalopram Oxalate 10 MG Oral DAILY May 24, 2022 Active Aripiprazole 30 MG Oral DAILY Mar 2022 Discontinue d Divalproex 500 MG Oral TWICE A DAY June 04, 2022 Active Chlorpromazine 100 MG Oral ONCE DAILY AT BEDTIME June 04, 2022 Active Thiamine Hcl (Vitamin B1) 100 MG Oral DAILY June 04, 2022 Active Clonidine Hcl 0.2 MG Oral THREE TIMES A DAY June 04, 2022 Active Pregabalin 50 MG Oral TWICE A DAY June 04, 2022 Active Aripiprazole 30 MG Oral ONCE DAILY AT BEDTIME June 04, 2022 Active Functional Status No known functional status. Immunizations No known immunizations. Plan of Care No Known Plan of Care Information Social History No known social history. Vital Signs No known vital signs results.
--- NOTE | 2023-05-04 10:55 | PC.NURSE ---
Patient from [facility] stating that he has been having bilateral lower extremity swelling x 1 week that has gotten progressively worse. Reports uses a wheeled walker at baseline but now can barely walk. 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
[2023-05-04 11:27] LABS: MANUAL DIFF FLAG NO
[2023-05-04 11:28] LABS: Basophils Absolute Auto 0.1 X10*3/uL (0.0-0.2); Basophils Percent Auto 1.3 % (0-2); Eosinophils Absolute Auto 0.2 X10*3/uL (0.0-0.4); Eosinophils Percent Auto 3.4 % (0-4); Hematocrit 29.5 % (42.0-52.0); Hemoglobin 8.8 g/dl (14.0-18.0); Imm Gran Abs Auto 0.02 X10*3/uL (0.00-0.03); Imm Gran Pct Auto 0.4 % (0.0-0.4); Lymphocytes Absolute Auto 1.1 X10*3/uL (1.2-4.9); Lymphocytes Percent Auto 24.3 % (20-40); Mean Corpuscular HGB Conc 29.8 g/dl (31.0-36.0); Mean Platelet Volume 9.5 fL (9.4-12.4); Monocytes Absolute Auto 0.3 X10*3/uL (0.1-1.2); Monocytes Percent Auto 6.9 % (2-11); Neutrophils Percent Auto 63.7 % (45-73); Platelet Count 239 X10*3/uL (160-400); Red Blood Count 3.83 X10*6/uL (4.60-5.80); White Blood Count 4.7 X10*3/uL (4.8-10.8)
[2023-05-04 11:40] LABS: Anion Gap 14 (12-20); Blood Urea Nitrogen 15 mg/dL (9-16); Calcium 9.1 mg/dL (8.4-10.2); Carbon Dioxide 28 mmol/L (22-29); Chloride 100 mmol/L (96-108); Creatinine Clr Calc Pharmacy 178.8; Estimated Glomerular Filt Rate > 60; Glucose Random 79 mg/dL (60-115); Potassium 4.3 mmol/L (3.3-5.1); Sodium 138 mmol/L (135-145)
--- NOTE | 2023-05-04 12:04 | MHC.CM.ED ---
PATIENT ASKING TO COMPLETE A HCP, NAMING HIS MOTHER DOCUMENT COMPLETED AND UPLOADED INTO [facility]. PATIENT HAS ORIGINAL. PLAN IS FOR DC HOME
[2023-05-04] MEDS: Gabapentin 300 MG CAPSULE PO (12:23)
--- NOTE | 2023-05-04 12:25 | PC.NURSE ---
pt medicated per MAR
--- NOTE | 2023-05-04 13:31 | PC.NURSE ---
Discharge paperwork reviewed with patient who stated he needed to talk to anisha regarding outpatient services, message sent to Anisha from case management. Patient up oob self propelling in wheelchair.
[2023-05-04 14:00] VITALS: BP 145/66; PULSE 78; RESP 18; O2SAT 97
--- NOTE | 2023-05-04 14:21 | MHC.CM.ED ---
JOHANNA DENT [facility] TO OFFER SERVICES STARTING TOMORROW. PATIENT AWARE.
== END 2023-05-04 16:13 | disposition home or self-care (01) ==
PROVIDERS: Emergency Provider Emergency Medicine
DX: G62.9 Polyneuropathy, unspecified (principal); R26.2 Difficulty in walking, not elsewhere classified; R60.0 Localized edema; F17.210 Nicotine dependence, cigarettes, uncomplicated; Z79.899 Other long term (current) drug therapy
CPT/HCPCS: 36415; 80048; 85025; 97161; 99284

== ENCOUNTER 2023-06-08 10:46 | Emergency (ER) | payer MEDICARE, MEDICAID, SELFPAY ==
--- NOTE | ~2023-06-08 | XR_ITS ---
EXAMINATION: XR KNEE, LEFT CLINICAL INFORMATION: Left knee pain. COMPARISON: Left knee radiographs dated 10/21/2022. TECHNIQUE: AP and lateral views of the left knee. FINDINGS: Severe lateral compartment joint space narrowing with subchondral sclerosis and marginal osteophytes. Increased subchondral cystic change. Tricompartmental marginal osteophytes. No acute fracture or dislocation. Small joint effusion. XR/XR knee LT 2V IMPRESSION: Tricompartmental osteoarthritis, most severe within the lateral compartment. Findings have progressed when compared to the prior radiographs. Small joint effusion.
--- NOTE | 2023-06-08 10:51 | ED.GENADULT ---
HPI - General Adult General Chief complaint: Psychiatric Symptoms Stated complaint: SI W PLAN Time Seen by Provider: 06/08/23 11:09 Source: patient and EMS Mode of arrival: EMS Limitations: other (poor historian ) History of Present Illness HPI narrative: This is a 43-year-old male hx opiate use disorder on methadone , antisocial personality d/o , bipolar d/o presenting with left knee pain suicidal ideation for the past 2 weeks. Patient reports 2 weeks ago fell down the stairs, onto his left knee, he did not hit his head or lose consciousness. Since then he was evaluated fully in an emergency department he was told to just rest his knee. He was also told he may have a ligament or tendon issue to the knee. He reports his left knee continues to become larger. Pain is causing him to feel suicidal only when hes in severe pain with plan to self harm, he has cut his left forearm before. Denies visual, auditory and tactile hallucinations. Denies drugs, alcohol and tobacco. Denies fevers, chills, numbness, tingling, chest pain, shortness of breath, headache, vision changes, dizziness, weakness, nausea, vomiting, abdominal pain. Reports he was [place] [facility] [place] a few days ago and went today to get methadone at [facility] and requested psych evaluation. Not on thinners Related Data Home Medications Medication Instructions Recorded Confirmed aripiprazole 30 mg tablet (Abilify) 30 mg PO BEDTIME 08/29/21 09/11/21 buspirone 30 mg tablet 30 mg PO BID 08/29/21 09/11/21 divalproex 500 mg tablet,extended 2,500 mg PO BEDTIME 08/29/21 09/11/21 release 24 hr (Depakote ER) montelukast 10 mg tablet 10 mg PO BEDTIME 08/29/21 09/11/21 (Singulair) ondansetron 4 mg disintegrating 4 mg PO BID PRN Nausea 08/29/21 09/11/21 tablet pregabalin 200 mg capsule (Lyrica) 200 mg PO BID 08/29/21 09/11/21 Zinc Oxide (Triple Paste) [Triple 1 appl topical 8XD PRN Rash 08/30/21 09/11/21 Paste] bethanechol chloride 25 mg tablet 25 mg PO TID 09/11/21 09/11/21 diazepam 10 mg tablet (Valium) 10 mg PO TID PRN Anxiety 09/11/21 09/11/21 hydroxyzine HCl 50 mg tablet 1 tab PO Q8H PRN Asystole 09/11/21 09/11/21 ibuprofen 800 mg tablet 1 tab PO TID PRN Pain (Scale Score 09/11/21 09/11/21 1-3) methadone 10 mg/mL oral 20 mg PO DAILY 09/11/21 09/11/21 concentrate (Methadose) metoclopramide HCl 10 mg tablet 1 tab PO TID PRN nausea/vomiting 09/11/21 09/11/21 morphine 30 mg immediate release 1 tab PO Q4H PRN Pain (Scale Score 09/11/21 09/11/21 tablet 7-10) pantoprazole 40 mg tablet,delayed 1 tab PO BID@0630,1630 09/11/21 09/11/21 release promethazine 25 mg tablet 25 mg PO Q8H PRN Nausea And 09/11/21 09/11/21 Vomiting tizanidine 4 mg tablet 4 mg PO BID PRN Muscle Spasm 09/11/21 09/11/21 Previous Rx's Medication Instructions Recorded albuterol sulfate 90 mcg/actuation 1 puff inhalation RQ4H PRN asthma 08/30/21 aerosol inhaler (Ventolin HFA) #0 grams aluminum-magnesium hydroxide 200 30 ml PO Q6H PRN Heartburn/Nausea 08/30/21 mg-200 mg/5 mL oral suspension #0 mL (MAG-AL) amitriptyline 50 mg tablet 150 mg (3 x 50 mg) PO BEDTIME #0 08/30/21 tabs ascorbic acid (vitamin C) 250 mg 250 mg PO BID@0800,1700 #0 tabs 08/30/21 tablet calcium carbonate 500 mg calcium 500 mg PO BID #0 tabs 08/30/21 (1,250 mg) tablet (Oyster Shell Calcium 500) docusate sodium 100 mg capsule 100 mg PO DAILY #0 caps 08/30/21 ferrous sulfate 324 mg (65 mg 324 mg PO BIDWM #0 tabs 08/30/21 iron) tablet,delayed release furosemide 20 mg tablet 60 mg PO BID@0900,1800 #0 tabs 08/30/21 ipratropium 0.5 mg-albuterol 3 mg 3 ml inhalation RQ4H WHILE AWAKE 08/30/21 (2.5 mg base)/3 mL nebulization #0 mL soln loratadine 10 mg tablet 10 mg PO DAILY #0 tabs 08/30/21 magnesium hydroxide 400 mg/5 mL 30 ml PO DAILY PRN Constipation #0 08/30/21 oral suspension (Milk of Magnesia) mL clonidine HCl 0.3 mg tablet 0.3 mg PO TID #6 tabs 09/11/21 diazepam 10 mg tablet 10 mg PO TID PRN anxiety #6 tabs 09/11/21 pregabalin 200 mg capsule 200 mg PO BID #10 caps 09/11/21 Allergies Allergy/AdvReac Type Severity Reaction Status Date / Time fluoxetine [From Prozac] Allergy Anxiety Verified 05/04/23 09:44 haloperidol [From Haldol] Allergy Anxiety Verified 05/04/23 09:44 mirtazapine [From Remeron] Allergy Anxiety Verified 05/04/23 09:44 paroxetine [From Paxil] Allergy Anxiety Verified 05/04/23 09:44 sertraline [From Zoloft] Allergy Anxiety Verified 05/04/23 09:44 trazodone Allergy Anxiety Verified 05/04/23 09:44 Review of Systems Review of Systems: Yes all other systems are reviewed and are negative PMFSH Past Medical History Attestation statement: The following information was validated with the patient. Source: old records reviewed and nursing notes reviewed Medical History Opioid use disorder Antisocial personality disorder Fluid overload Pneumonia Chronic venous stasis Bipolar 1 disorder Chronic venous stasis Bipolar 1 disorder Social History Social History Household Members: Unknown / Unable to assess Housing: Unknown / Unable to assess Unable to assess alcohol history related to: Unknown Alcohol intake: current Alcohol intake frequency: holidays/special occasions only Comment: sitter Patient Tobacco Use Status: Current everyday Tobacco user Smoked in Last 30 Days: Yes Second Hand Smoke Exposure: No (pt unresponsive) Use of substances other than those prescribed or required for medical reasons: Yes Substance Use Type: Marijuana Substance Use Frequency: Occasionally Advance Directives: Yes Advance Directives on File: Yes Advance Directives Date on File: 05/05/23 Current occupational status: disabled Sexual orientation: Did not discuss. Physical Exam ED Vital Signs: Vital Signs - 24 hr 06/08/23 11:23 Temperature 97.5 F Pulse Rate 88 Respiratory Rate 18 Blood Pressure 115/60 Pulse Oximetry 99 Oxygen Delivery Method Room Air BMI result Body Mass Index 38.0 vss Appearance: Alert.? Oriented X3.? No acute distress.? Head: Normocephalic, atraumatic, no step-offs or deformities Eyes: Pupils equal, round and reactive to light.? CVS: Normal heart rate and rhythm.? Pulses normal.? Respiratory: No respiratory distress.? Breath sounds normal.? Skin: Skin warm and dry.? Normal skin color.? Normal skin turgor.? Extremities: No lower extremity edema.? No calf ttp. 5/5 strength to b/l lower extremities w/ swelling to L knee perdominantly over the L pes anserine +/- effusion NV status intact 2+ popliteal pulses equal and b/l. Painless ROM to b/l knee Back: No midline tenderness, no C-spine tenderness, full range of motion, no CVA tenderness bilaterally Neuro: Oriented X 3.? No motor deficit.? No sensory deficit. CN 2-12 intact Course Reevaluation(s) Reevaluation #1: Had my attending Dr. Rosales Evaluate patient who tells me no need for knee drainage. Xray showing tricompartmental osteoarthritis most severe in the lateral aspect. And xray showing a small joint effusion. Time: 12:16 Reevaluation #2: patient repeatedly posturing and demanding narcotics. He has asked for multiple variations most recently tylenol with codeine. He has told staff very loudly which we can hear at the work station he is going to escalate and cause a problem if he does not get strong pain medications. He does not want tylenol, toradol, motrin. He wants real pain medications. He notes he wants his leg taken care of and strong pain medications this is very future oriented and does not seem like someone who wants to kill themselves. He even went to the methadone clinic today. He has hx of aggression in the past documented in the chart in the setting of his antisocial personality disorder. He is repeatedly yelling at his RN Guillermina demanding she come to his bedside and she is not helping. He is verbally abusive. He is getting aggressive. If he postures or escalates he is going to be walked out of the department as I believe his presentation is in the setting of drug seeking behaviors. - NATALIE DO now refusing labs and urine studies unless he gets a narcotic. at this time he can be discharged. 106pm. We had addiction medicine come try to talk to him as well and he did not want anything other than narcotics. Reevaluation #3: I have been called over to the bedside multiple times as patient is demanding opiates such as Tylenol and codeine, unpleasant to sitter at the bedside, states that he is suicidal only if we do not give him pain meds. Patient was able to walk into [facility] today, and suddenly he states he does not want to walk because of pain and he will only walk if we give him pain medicine. He was offered Toradol and refused he says he does not want that kind. Security at the bedside Time: 13:02 Additional Reevaluation(s): 1306 Patient refusing urine refusing lab work, he states he will not do anything until he gets a narcotic. Again he tells me does not want Toradol unless I give it to him with a narcotic he will not just take it alone. Recovery tried to speak to patient. Again demanding narcotics. Patient tells me he has been to multiple hospitals and they just discharge him. I offered him something else for pain control and he refuses he says he only wants Tylenol No. 3 ( w/ codein) hostile towards nurse, patient's sitter, security. At this time patient will be discharged. Long conversation w/ my attending about this he is goal oriented, states will go somewhere else Similar presentation on one of his psych admission If I can not get my methadone increase then a need to leave here with at least a couple weeks of T3'sfor my pain?. Note from 08/31/21 When not getting what he wants, patient would act out with problematic behaviors such as being rude to staff and peers, demanding, verbally assaulting, sometimes threatening and instigating problems with others. Patient however can immediately return to become under self control when it suits him as behaviors are due to antisocial personality disorder and not at all related to a manic episode but rather are carefully calculated and designed to it intimidate others to get his way; thus he can quickly stop behaviors when it suits him and would do so when in the presence of staff with whom he wants to appeal. At time of DC patient punching the wall screaming i need a narcotic Medications Administered Discontinued Medications Generic Name Dose Route Start Last Admin Trade Name Iman PRN Reason Stop Dose Admin Diphtheria/Tetanus/Acell Pertussis 0.5 ml 06/08/23 10:53 06/08/23 12:17 Diphth,Pertus(Acell),Tet Adult 0.5 Ml Syringe IM 06/08/23 10:54 0.5 ml .ONCE ONE Administration Ketorolac Tromethamine 30 mg 06/08/23 11:18 06/08/23 12:21 Ketorolac Tromethamine 30 Mg/Ml Vial IM 06/08/23 11:19 Not Given ONCE ONE Lorazepam 2 mg 06/08/23 11:58 06/08/23 12:16 Lorazepam 1 Mg Tablet PO 06/08/23 11:59 2 mg ONCE ONE Administration Medical Decision Making Medical Decision Making [facility] Narrative: 1055 43 yo m presents w/ L knee pain and SI only when im in pain PE w/ No lower extremity edema.? No calf ttp. 5/5 strength to bilateral upper and lower extremities w/ swelling to L knee perdominantly over the L pes anserine +/- effusion NV status intact 2+ popliteal pulses equal and b/l. Painless ROM to b/l knee History and physical exam concerning for left knee swelling vs bursitis vs effusion, no signs of septic joint, neurovascular compromise, acute threat to Limb, arterial or venous occlusion. No signs of traumatic injury to head, neck, chest abdomen or pelvis. I am also concerned for bipolar disorder, depression. With concomitant suicidal ideation. No concerns for homicidal ideation. Effusion will likely require draining. Differential Diagnosis Differential Diagnoses: The differential diagnosis associated with the presentation includes History and physical exam concerning for left knee swelling vs bursitis vs effusion, no signs of septic joint, neurovascular compromise, acute threat to Limb, arterial or venous occlusion. No signs of traumatic injury to head, neck, chest abdomen or pelvis. I am also concerned for bipolar disorder, depression. With concomitant suicidal ideation. No concerns for homicidal ideation. Admission/Observation Consideration of admission/observation: Escalation of care including admission/observation considered likely Lab Data 06/08/23 12:12 Labs: Lab Results 06/08/23 Range/Units 12:12 WBC 3.9 L (4.8-10.8) X10*3/uL RBC 4.54 L (4.60-5.80) X10*6/uL Hgb 10.0 L (14.0-18.0) g/dl Hct 33.8 L (42.0-52.0) % MCV 74.4 L (80.0-98.0) fL MCH 22.0 L (27.0-33.0) pg MCHC 29.6 L (31.0-36.0) g/dl RDW 16.2 H (11.0-16.0) % Plt Count 354 D (160-400) X10*3/uL MPV 9.4 (9.4-12.4) fL Immature Gran % (Auto) 0.3 (0.0-0.4) % Neut % (Auto) 39.2 L (45-73) % Lymph % (Auto) 39.8 (20-40) % [place] % (Auto) 13.2 H (2-11) % Eos % (Auto) 6.2 H (0-4) % Baso % (Auto) 1.3 (0-2) % Lymph # (Auto) 1.5 (1.2-4.9) X10*3/uL [place] # (Auto) 0.5 (0.1-1.2) X10*3/uL Eos # (Auto) 0.2 (0.0-0.4) X10*3/uL Baso # (Auto) 0.1 (0.0-0.2) X10*3/uL Abs Immat Gran (auto) 0.01 (0.00-0.03) X10*3/uL Absolute Neuts (auto) 1.5 L (2.0-8.3) x10*3/uL Absolute Nucleated RBC 0.000 (0.0-0.012) X10*3/uL Nucleated RBC % (auto) 0.0 (0.0-0.2) /100WBC Independent Interpretation I performed an independent interpretation of an: Plain X-Ray ( XR/XR knee LT 2V IMPRESSION: Tricompartmental osteoarthritis, most severe within the lateral compartment. Findings have progressed when compared to the prior radiographs. Small joint effusion. ) Radiology Impression Discussion of test interpretation with radiology: I have reviewed the radiologist's reading. External Record Review External record reviewed: Inpatient record, Office record, Outpatient record, Prior outpatient labs, Prior outpatient radiology, Primary care record and Outside ED record Critical Care Time Critical Care Time Critical Care Time: Yes Total Critical Care Time: 35 Attestation: I attest to this time spent taking care of the patient, obtaining history, physical, reviewing labs, imaging, speaking to my attending, speaking to specialist. Discharge Plan Discharge Clinical Impression: Antisocial personality disorder, Aggression Bursitis of left knee Qualifiers: Knee bursitis location: pes anserinus bursitis Qualified Code(s): M70.52 - Other bursitis of knee, left knee Patient Disposition: Home, Self-Care Instructions: Knee Bursitis (ED), Arthralgia (ED) Additional Instructions: Take your medications as prescribed. If you were prescribed antibiotics today, it is important that you take your medication to their entirety, do not skip any doses, do not finish them early. Follow-up with your primary care provider this week. Return to the emergency department with new or worsening symptoms. Such as fevers, chills, chest pain, shortness of breath, nausea, vomiting, dizziness, headache, vision changes, lethargy, suicidal or homicidal ideation In case of emergency call 911 XR/XR knee LT 2V IMPRESSION: Tricompartmental osteoarthritis, most severe within the lateral compartment. Findings have progressed when compared to the prior radiographs. Small joint effusion. Prescriptions: No Action Zinc Oxide (Triple Paste) [Triple Paste] 1 appl topical 8XD PRN (Reason: Rash) clonidine HCl 0.3 mg tablet 0.3 mg PO TID Qty: 6 0RF pregabalin 200 mg capsule 200 mg PO BID Qty: 10 0RF diazepam 10 mg tablet 10 mg PO TID PRN (Reason: anxiety) Qty: 6 0RF ibuprofen 800 mg tablet 1 tab PO TID PRN (Reason: Pain (Scale Score 1-3)) tizanidine 4 mg Tablet 4 mg PO BID PRN (Reason: Muscle Spasm) hydroxyzine HCl 50 mg tablet 1 tab PO Q8H PRN (Reason: Asystole) morphine 30 mg tablet 1 tab PO Q4H PRN (Reason: Pain (Scale Score 7-10)) pantoprazole 40 mg tablet,delayed release (DR/EC) 1 tab PO BID@0630,1630 bethanechol chloride 25 mg tablet 25 mg PO TID promethazine 25 mg tablet 25 mg PO Q8H PRN (Reason: Nausea And Vomiting) diazepam [Valium] 10 mg tablet 10 mg PO TID PRN (Reason: Anxiety) methadone [Methadose] 10 mg/mL concentrate 20 mg PO DAILY Rx Instructions: Partial Fill upon patient request. metoclopramide HCl 10 mg tablet 1 tab PO TID PRN (Reason: nausea/vomiting) montelukast [Singulair] 10 mg Tablet 10 mg PO BEDTIME buspirone 30 mg Tablet 30 mg PO BID divalproex [Depakote ER] 500 mg Tablet Extended Release 24 Hr 2,500 mg PO BEDTIME ondansetron 4 mg Tablet,Disintegrating 4 mg PO BID PRN (Reason: Nausea) aripiprazole [Abilify] 30 mg Tablet 30 mg PO BEDTIME pregabalin [Lyrica] 200 mg Capsule 200 mg PO BID albuterol sulfate [Ventolin HFA] 90 mcg/actuation Hfa Aerosol Inhaler 1 puff inhalation RQ4H PRN (Reason: asthma) Qty: 0 0RF loratadine 10 mg Tablet 10 mg PO DAILY Qty: 0 0RF ipratropium-albuterol 0.5 mg-3 mg(2.5 mg base)/3 mL Solution For Nebulization 3 ml inhalation RQ4H WHILE AWAKE Qty: 0 0RF amitriptyline 50 mg Tablet 150 mg PO BEDTIME Qty: 0 0RF ferrous sulfate 324 mg (65 mg iron) Tablet,Delayed Release (Dr/Ec) 324 mg PO BIDWM Qty: 0 0RF magnesium hydroxide [Milk of Magnesia] 400 mg/5 mL Suspension 30 ml PO DAILY PRN (Reason: Constipation) Qty: 0 0RF calcium carbonate [Oyster Shell Calcium 500] 500 mg calcium (1,250 mg) Tablet 500 mg PO BID Qty: 0 0RF docusate sodium 100 mg Capsule 100 mg PO DAILY Qty: 0 0RF furosemide 20 mg Tablet 60 mg PO BID@0900,1800 Qty: 0 0RF Protocol: Hold for SBP< HOLD for SBP < : 90 MAG-AL 200-200 mg/5 mL Suspension 30 ml PO Q6H PRN (Reason: Heartburn/Nausea) Qty: 0 0RF ascorbic acid (vitamin C) 250 mg Tablet 250 mg PO BID@0800,1700 Qty: 0 0RF Referrals: [facility] [place] [place] Orthopedic Surgeons [Provider Group] - 1 day Stand Alone Forms: Work/School Release Interventions: [place]-Suicide Risk Severity Scale Last Done: 06/08/23 11:29
[2023-06-08 11:02] VITALS: BP 140/86; PULSE 88; O2SAT 95
[2023-06-08 11:23] VITALS: BP 115/60; PULSE 88; RESP 18; TEMP 36.4; O2SAT 99; BMI 38.0
[2023-06-08] MEDS: LORazepam 1 MG TABLET 2 MG PO (12:16)
[2023-06-08] MEDS: Diphth,Pertus(ACell),Tet Adult 0.5 ML SYRINGE IM (12:17)
[2023-06-08 12:21] LABS: MANUAL DIFF FLAG NO
[2023-06-08 12:33] LABS: Basophils Absolute Auto 0.1 X10*3/uL (0.0-0.2); Basophils Percent Auto 1.3 % (0-2); Eosinophils Absolute Auto 0.2 X10*3/uL (0.0-0.4); Eosinophils Percent Auto 6.2 % (0-4); Hematocrit 33.8 % (42.0-52.0); Imm Gran Abs Auto 0.01 X10*3/uL (0.00-0.03); Imm Gran Pct Auto 0.3 % (0.0-0.4); Lymphocytes Absolute Auto 1.5 X10*3/uL (1.2-4.9); Lymphocytes Percent Auto 39.8 % (20-40); Mean Corpuscular HGB Conc 29.6 g/dl (31.0-36.0); Mean Corpuscular Volume 74.4 fL (80.0-98.0); Mean Platelet Volume 9.4 fL (9.4-12.4); Monocytes Absolute Auto 0.5 X10*3/uL (0.1-1.2); Monocytes Percent Auto 13.2 % (2-11); Neutrophils Absolute Auto 1.5 x10*3/uL (2.0-8.3); Neutrophils Percent Auto 39.2 % (45-73); Platelet Count 354 X10*3/uL (160-400); Red Blood Count 4.54 X10*6/uL (4.60-5.80); Red Cell Distribution Width 16.2 % (11.0-16.0); White Blood Count 3.9 X10*3/uL (4.8-10.8)
--- NOTE | 2023-06-08 12:49 | PC.NURSE ---
this RN resumed care of pt at this time. pt moved from pod to main ED since pt is not currently independent. pt currently a&ox4. denies SI/HI at this time. pt states i don't know how to feel. 1:1 sitter remains present anyway. pt is a difficult stick. half of the labs obtained at this time - pt refused for rest of labs to be drawn by tech. pt verbalizes 10/10 pain in knees bilaterally as well as feeling extremely anxious. provider notified/aware. pt medication w/ one time dose of ativan for anxiety as well as tetanus shot. pt refused IM toradol administration d/t pt stating that it does not work for him. provider notified/aware of pt's refusal. no sob/wob noted. respirations even and unlabored. plan of care ongoing at this time.
--- NOTE | 2023-06-08 13:44 | PC.NURSE ---
pt continues to refuse for labs, vitals, and urine to be obtained until he is able to receive real medication. as previously documented, pt refused IM toradol. pt only requesting tylenol w/ codeine - states that this is the only medication that helps. pt continues to be verbally abusive to this RN as well as other [facility] staff. pt became increasingly agitated and then started hitting the wall. pt states that nobody is helping him and that he will become suicidal and start causing a problem if he does not get his way. since pt was refusing most treatment, pt's discharge had been placed by provider. pt refusing to get up/causing a scene when he was unable to receive the medication. pt then started becoming manipulative stating that he will cooperate if he gets medication. pt's belongings returned to pt from . pt escorted out of ED by security.
[2023-06-08 16:01] VITALS: BP 0/0; PULSE 0; RESP 0; TEMP -17.7; TEMP 0; O2SAT 0
== END 2023-06-08 16:02 | disposition home or self-care (01) ==
PROVIDERS: Physician Assistant; Emergency Provider Emergency Medicine
DX: S80.212A Abrasion, left knee, initial encounter (principal); F32.A Depression, unspecified; M70.52 Other bursitis of knee, left knee; R45.851 Suicidal ideations; M25.562 Pain in left knee; W10.9XXA Fall (on) (from) unspecified stairs and steps, initial encounter; Y93.9 Activity, unspecified; Y92.9 Unspecified place or not applicable; Y99.8 Other external cause status; Z79.899 Other long term (current) drug therapy; Z23 Encounter for immunization
CPT/HCPCS: 36415; 73560; 85025; 90715; 99284; 99285; J1885